=== PATIENT | female | born 1940 | race Caucasian/White ===

== ENCOUNTER 2020-06-30 14:06 | Outpatient (REF) | payer MEDICARE, OTHER, SELFPAY | END 2020-06-30 14:07 | disposition home or self-care (01) | LOC: HO.LNP 14:06 | PROVIDERS: Visit Provider Nurse Practitioner Family | DX: B37.0 Candidal stomatitis (principal) | CPT/HCPCS: 87071; 87205 ==

== ENCOUNTER 2020-07-20 10:52 | Outpatient (REF) | payer MEDICARE, OTHER, SELFPAY | END 2020-07-20 10:53 | disposition home or self-care (01) | LOC: HO.LNP 10:52 | PROVIDERS: Visit Provider Otolaryngology | DX: K14.8 Other diseases of tongue (principal) | CPT/HCPCS: 88305; 88312 ==

== ENCOUNTER 2020-12-18 | Outpatient (REF) | payer MEDICARE, OTHER, SELFPAY | END 2020-12-18 00:01 | disposition home or self-care (01) | LOC: HO.LNP | PROVIDERS: Visit Provider Hospitalist | DX: R30.0 Dysuria (principal) | CPT/HCPCS: 87086 ==

== ENCOUNTER 2021-01-31 09:52 | Outpatient (REF) | payer MEDICARE, OTHER, SELFPAY ==
[2021-01-31 11:42] LABS: Hematocrit 41.2 % (37-47); Hemoglobin 13.7 g/dl (12.0-16.0); Mean Corpuscular HGB Conc 33.3 g/dl (31.0-35.0); Mean Corpuscular Hemoglobin 30.2 pg (27.0-33.0); Mean Corpuscular Volume 90.9 fL (80-98); Mean Platelet Volume 10.8 fL (9.4-12.3); Platelet Count 237 X10*3/uL (160-400); Red Blood Count 4.53 X10*6/uL (4.20-5.50); Red Cell Distribution Width 12.3 % (11.0-16.0); White Blood Count 5.4 X10*3/uL (4.8-10.8)
[2021-01-31 12:14] LABS: Alanine Aminotransferase 14 U/L (0-31); Albumin Level 4.2 g/dL (3.5-5.0); Alkaline Phosphatase 62 U/L (39-117); Anion Gap 12 (12-20); Aspartate Amino Transferase 17 U/L (5-31); Bilirubin Total 0.9 mg/dL (0.0-1.0); Blood Urea Nitrogen 11 mg/dL (9-16); Carbon Dioxide 29 mmol/L (22-29); Chloride 101 mmol/L (96-108); Cholesterol 152 mg/dL; Estimated Glomerular Filt Rate > 60; Glucose Fasting 115 mg/dL (60-99); HDL Cholesterol 55 mg/dL; LDL Cholesterol Calculated 75 mg/dl; Potassium 4.2 mmol/L (3.3-5.1); Sodium 138 mmol/L (135-145); Triglycerides 111 mg/dL
[2021-01-31 12:18] LABS: TSH reflex Free T4 1.22 uIU/mL (0.32-4.0); Vitamin D 25-OH Total 18.6 ng/mL (>30)
== END 2021-01-31 09:53 | disposition home or self-care (01) ==
LOC: HO.HMGCLDS 09:52
PROVIDERS: PCP Internal Medicine; Visit Provider Internal Medicine
DX: I10 Essential (primary) hypertension (principal)
CPT/HCPCS: 36415; 80053; 80061; 82306; 84443; 85027

== ENCOUNTER 2021-02-15 12:35 | Outpatient (REF) | payer MEDICARE, OTHER, SELFPAY ==
--- NOTE | ~2021-02-15 | MM_ITS ---
EXAMINATION: MM SCREENING DIGITAL BREAST TOMOSYNTHESIS, LEFT CLINICAL INFORMATION: Remote right mastectomy 1982. Due for yearly. COMPARISON: Mammography: 08/20/2019, 07/15/2018, 06/20/2017 TECHNIQUE: Digital breast tomosynthesis is performed in both the craniocaudal and mediolateral oblique views along with computer-aided detection (CAD). Synthesized 2D images are generated from the tomosynthesis. FINDINGS: There are scattered areas of fibroglandular density (ACR BI-RADS breast composition Category b). There are no significant masses, abnormal calcifications, or other abnormalities. Parenchymal pattern is similar to prior studies. No developing density. The axilla and skin contours are unremarkable. MM/MM tomosynthesis screening BI IMPRESSION: No mammographic evidence of malignancy. ASSESSMENT: BI-RADS 1: Negative RECOMMENDATION: Routine annual mammography screening. This patient's information was entered into a reminder system with a target due date for their next mammogram.
== END 2021-02-15 12:36 | disposition home or self-care (01) ==
LOC: HO.MAMMO 12:35
PROVIDERS: Visit Provider Internal Medicine
DX: Z12.31 Encounter for screening mammogram for malignant neoplasm of breast (principal)
CPT/HCPCS: 77063; 77067

== ENCOUNTER → 2021-02-23 13:45 | Outpatient (REF) | payer MEDICARE, OTHER, SELFPAY ==
--- NOTE | 2021-02-23 13:51 | ECG_ITS ---
Hook-up date: 2021-02-23 13:58:00 Duration: 24:25:00 Test Indications: PALPS, CARD. ARRHYTHMIAS, TACHY Medications: 87088 QRS complexes 135 Ventricular ectopics which represent <1 % of total QRS comp. 97 Supraventricular ectopics which represent <1 % of total QRS comp. * Paced QRS complexs which represent % of total QRS comp. VENTRICULAR ECTOPY 133 Isolated 6 Bigeminal Cycles 1 Couplets 0 Runs 0 Beats in Runs * Beats LONGEST at * BPM at :: -- * Beats FASTEST at * BPM at :: -- SUPRAVENTRICULAR ECTOPY 76 Isolated 1 Couplets 1 Runs 19 Beats in Runs 19 Beats LONGEST at 102 BPM at 23:59:55 2021-02-23 19 Beats FASTEST at 102 BPM at 23:59:55 2021-02-23 HEART RATES 45 MIN at 02:28:05 2021-02-24 55 AVG 90 MAX at 14:00:02 2021-02-23 LONGEST RR 1.5440 secs at 04:22:48 2021-02-24 S-T LEVELS Channel 1 - 128 mm at 13:58:00 2021-02-23 - 128 mm at 13:58:00 2021-02-23 Channel 2 - 128 mm at 13:58:00 2021-02-23 - 128 mm at 13:58:00 2021-02-23 Channel 3 - 128 mm at 03:31:71 -- - 128 mm at 03:31:71 Underlying rhythm is sinus; Average 55/min; range 45-90/min; Rare PACs with a short 19 beat run; Rare PVCs; Fluttering noted in patient dairy associated with sinus rhythm. Referred By: Krista Allen Overread By: APOLINAR SANTOS
== END ==
LOC: HO.CARD 13:45
PROVIDERS: Visit Provider Internal Medicine
DX: R00.2 Palpitations (principal); R00.0 Tachycardia, unspecified; I49.9 Cardiac arrhythmia, unspecified
CPT/HCPCS: 93225; 93226

== ENCOUNTER 2021-07-05 10:18 | Outpatient (REF) | payer MEDICARE, OTHER, SELFPAY ==
[2021-07-05 12:07] LABS: Estimated Average Glucose 128 mg/dL; Hemoglobin A1c % 6.1 %
[2021-07-05 12:25] LABS: Vitamin D 25-OH Total 31.3 ng/mL (>30)
[2021-07-05 12:33] LABS: Alanine Aminotransferase 14 U/L (0-31); Albumin Level 4.3 g/dL (3.5-5.0); Alkaline Phosphatase 61 U/L (39-117); Anion Gap 14 (12-20); Aspartate Amino Transferase 17 U/L (5-31); Bilirubin Total 1.2 mg/dL (0.0-1.0); Blood Urea Nitrogen 9 mg/dL (9-16); Calcium 9.3 mg/dL (8.4-10.2); Carbon Dioxide 25 mmol/L (22-29); Chloride 104 mmol/L (96-108); Cholesterol 141 mg/dL; Estimated Glomerular Filt Rate > 60; Glucose Fasting 105 mg/dL (60-99); HDL Cholesterol 57 mg/dL; LDL Cholesterol Calculated 67 mg/dl; Potassium 4.1 mmol/L (3.3-5.1); Sodium 139 mmol/L (135-145); Total Protein 7.3 g/dL (6.5-8.0); Triglycerides 87 mg/dL
== END 2021-07-05 10:19 | disposition home or self-care (01) ==
LOC: HO.HMGCLDS 10:18
PROVIDERS: PCP Internal Medicine; Visit Provider Internal Medicine
DX: E78.5 Hyperlipidemia, unspecified (principal); I10 Essential (primary) hypertension; R00.0 Tachycardia, unspecified
CPT/HCPCS: 36415; 80053; 80061; 82306; 83036

== ENCOUNTER 2022-01-04 09:23 | Outpatient (REF) | payer MEDICARE, OTHER, SELFPAY ==
[2022-01-04 11:50] LABS: Alanine Aminotransferase 15 U/L (0-31); Albumin Level 4.1 g/dL (3.5-5.0); Alkaline Phosphatase 59 U/L (39-117); Anion Gap 9 (12-20); Aspartate Amino Transferase 17 U/L (5-31); Blood Urea Nitrogen 11 mg/dL (9-16); Calcium 9.5 mg/dL (8.4-10.2); Carbon Dioxide 30 mmol/L (22-29); Chloride 103 mmol/L (96-108); Estimated Glomerular Filt Rate > 60; Glucose Fasting 104 mg/dL (60-99); Potassium 4.3 mmol/L (3.3-5.1); Sodium 138 mmol/L (135-145); Total Protein 7.2 g/dL (6.5-8.0)
[2022-01-04 11:53] LABS: Estimated Average Glucose 128 mg/dL; Hemoglobin A1c % 6.1 %
[2022-01-04 12:11] LABS: Vitamin D 25-OH Total 30.6 ng/mL (>30)
== END 2022-01-04 09:24 | disposition home or self-care (01) ==
LOC: HO.HMGCLDS 09:23
PROVIDERS: PCP Internal Medicine; Visit Provider Internal Medicine
DX: E55.9 Vitamin D deficiency, unspecified (principal); I10 Essential (primary) hypertension; R73.9 Hyperglycemia, unspecified
CPT/HCPCS: 36415; 80053; 82306; 83036

== ENCOUNTER 2022-02-20 14:40 | Outpatient (REF) | payer MEDICARE, OTHER, SELFPAY ==
--- NOTE | ~2022-02-20 | MM_ITS ---
EXAMINATION: MM SCREENING DIGITAL BREAST TOMOSYNTHESIS, LEFT CLINICAL INFORMATION: Status post right mastectomy COMPARISON: Mammography: February 15, 2021 and studies dating back to January 16, 2012 TECHNIQUE: Digital breast tomosynthesis is performed in both the craniocaudal and mediolateral oblique views along with computer-aided detection (CAD). Synthesized 2D images are generated from the tomosynthesis. FINDINGS: The breasts are heterogeneously dense, which may obscure small masses (ACR BI-RADS breast composition Category c). There are no significant masses, abnormal calcifications, or other abnormalities. MM/MM tomosynthesis screening LT IMPRESSION: There are no significant changes from prior study. ASSESSMENT: BI-RADS 1: Negative RECOMMENDATION: Routine annual mammography screening. This patient's information was entered into a reminder system with a target due date for their next mammogram.
== END 2022-02-20 14:41 | disposition home or self-care (01) ==
LOC: HO.MAMMO 14:40
PROVIDERS: PCP Internal Medicine; Visit Provider Internal Medicine
DX: Z12.31 Encounter for screening mammogram for malignant neoplasm of breast (principal)
CPT/HCPCS: 77063; 77067

== ENCOUNTER 2022-07-10 10:31 | Outpatient (REF) | payer MEDICARE, OTHER, SELFPAY ==
[2022-07-10 11:16] LABS: MANUAL DIFF FLAG NO
[2022-07-10 11:38] LABS: Basophils Absolute Auto 0.1 X10*3/uL (0.0-0.2); Basophils Percent Auto 0.9 % (0-2); Eosinophils Absolute Auto 0.3 X10*3/uL (0.0-0.4); Eosinophils Percent Auto 4.1 % (0-4); Hematocrit 42.3 % (37.0-47.0); Imm Gran Abs Auto 0.02 X10*3/uL (0.00-0.03); Imm Gran Pct Auto 0.3 % (0.0-0.4); Lymphocytes Absolute Auto 2.5 X10*3/uL (1.2-4.9); Lymphocytes Percent Auto 38.4 % (20-40); Mean Corpuscular HGB Conc 33.1 g/dl (31.0-35.0); Mean Corpuscular Volume 90.8 fL (80.0-98.0); Mean Platelet Volume 10.8 fL (9.4-12.3); Monocytes Absolute Auto 0.6 X10*3/uL (0.1-1.2); Monocytes Percent Auto 8.6 % (2-11); Neutrophils Absolute Auto 3.1 x10*3/uL (2.0-8.3); Neutrophils Percent Auto 47.7 % (45-73); Platelet Count 237 X10*3/uL (160-400); Red Blood Count 4.66 X10*6/uL (4.20-5.50); Red Cell Distribution Width 12.3 % (11.0-16.0); White Blood Count 6.4 X10*3/uL (4.8-10.8)
[2022-07-10 12:48] LABS: Alanine Aminotransferase 8 U/L (0-31); Albumin Level 4.4 g/dL (3.5-5.0); Alkaline Phosphatase 58 U/L (39-117); Anion Gap 15 (12-20); Aspartate Amino Transferase 14 U/L (5-31); Blood Urea Nitrogen 11 mg/dL (9-16); Calcium 9.5 mg/dL (8.4-10.2); Carbon Dioxide 27 mmol/L (22-29); Chloride 100 mmol/L (96-108); Cholesterol 150 mg/dL; Estimated Glomerular Filt Rate > 60; Glucose Fasting 103 mg/dL (60-99); HDL Cholesterol 56 mg/dL; LDL Cholesterol Calculated 71 mg/dl; Potassium 4.4 mmol/L (3.3-5.1); Sodium 138 mmol/L (135-145); Total Protein 7.6 g/dL (6.5-8.0); Triglycerides 116 mg/dL
== END 2022-07-10 10:32 | disposition home or self-care (01) ==
LOC: HO.HMGCLDS 10:31
PROVIDERS: PCP Internal Medicine; Visit Provider Internal Medicine
DX: E78.5 Hyperlipidemia, unspecified (principal); I10 Essential (primary) hypertension
CPT/HCPCS: 36415; 80053; 80061; 85025

== ENCOUNTER 2022-07-11 10:56 | Outpatient (REF) | payer MEDICARE, OTHER, SELFPAY ==
[2022-07-11 14:08] LABS: Appearance Urine Clear; Color Urine Yellow; Glucose Urine UA Negative (Negative); Leukocyte Esterase Urine Small (1+) (Negative); Nitrite Urine Negative (Negative); Specific Gravity - Urine 1.015 (1.005-1.025); UMIC TRIGGER UACC YES; Urine Blood Negative (Negative); Urine Ketones Negative (Negative); Urine Protein Negative (Neg-Trace)
[2022-07-11 14:21] LABS: Bacteria Urine None Seen (None Seen); Hyaline Casts Urine 0-2 /LPF (0-2); RBC Urine 0-2 /HPF (0-2); UACC Culture Trigger YES; WBC Urine 0-5 /HPF (0-5)
== END 2022-07-11 10:57 | disposition home or self-care (01) ==
LOC: HO.HMGCLDS 10:56
PROVIDERS: PCP Internal Medicine; Visit Provider Internal Medicine
DX: Z13.89 Encounter for screening for other disorder (principal)
CPT/HCPCS: 81001; 87086

== ENCOUNTER 2022-07-11 15:47 | Outpatient (REF) | payer MEDICARE, OTHER, SELFPAY ==
--- NOTE | ~2022-07-11 | US_ITS ---
EXAMINATION: US VENOUS ULTRASOUND WITH DOPPLER LOWER EXTREMITY, LEFT CLINICAL INFORMATION: Pain. COMPARISON: None TECHNIQUE: Ultrasound of the deep veins is performed from the hip to the calf with compression sonography and color and pulse Doppler assessment. Spectral analysis with color-flow imaging is performed. FINDINGS: Status post greater saphenous vein stripping. There is normal venous compression and respiratory variation and augmented flow. The visualized common femoral vein, superficial femoral vein, profunda femoral vein, popliteal vein, and the trifurcation region shows no evidence of deep venous thrombosis. Popliteal cyst measuring 3.7 x 1.2 x 0.9 cm. If the patient's symptoms persist, followup ultrasound in 5 days 7 days might be of value to exclude proximal propagation from a non-visualized calf vein. US/US venous duplex LE IMPRESSION: No DVT demonstrated in the left lower extremity.
== END 2022-07-11 15:48 | disposition home or self-care (01) ==
LOC: HO.US 15:47
PROVIDERS: PCP Internal Medicine; Visit Provider Internal Medicine
DX: M79.605 Pain in left leg (principal); R32 Unspecified urinary incontinence
CPT/HCPCS: 81001; 87086; 93971

== ENCOUNTER 2023-02-26 08:48 | Outpatient (REF) | payer MEDICARE, OTHER, SELFPAY ==
--- NOTE | ~2023-02-26 | MM_ITS ---
EXAMINATION: MM SCREENING DIGITAL BREAST TOMOSYNTHESIS, LEFT CLINICAL INFORMATION: Due for yearly. Contralateral mastectomy, 1991. Left excisional biopsy, 1993. COMPARISON: Mammography: 02/20/2022, 02/15/2021, 08/20/2019 TECHNIQUE: Digital breast tomosynthesis is performed in both the craniocaudal and mediolateral oblique views along with computer-aided detection (CAD). Synthesized 2D images are generated from the tomosynthesis. FINDINGS: The breasts are heterogeneously dense, which may obscure small masses (ACR BI-RADS breast composition Category c). Breast tissue composition borders on average fibroglandular. Parenchymal pattern is similar to prior studies and there is no developing density or architectural abnormality. There are no significant masses, abnormal calcifications, or other abnormalities. The axilla and skin contours are unremarkable. MM/MM tomosynthesis screening LT IMPRESSION: No mammographic evidence of malignancy. ASSESSMENT: BI-RADS 1: Negative RECOMMENDATION: Routine annual mammography screening. This patient's information was entered into a reminder system with a target due date for their next mammogram.
== END 2023-02-26 08:49 | disposition home or self-care (01) ==
LOC: HO.MAMMO 08:48
PROVIDERS: Visit Provider Internal Medicine
DX: Z12.31 Encounter for screening mammogram for malignant neoplasm of breast (principal)
CPT/HCPCS: 77063; 77067

== ENCOUNTER 2023-07-13 07:59 | Outpatient (REF) | payer MEDICARE, OTHER, SELFPAY ==
[2023-07-13 11:36] LABS: MANUAL DIFF FLAG NO
[2023-07-13 11:51] LABS: Estimated Average Glucose 126 mg/dL
[2023-07-13 11:58] LABS: Basophils Absolute Auto 0.1 X10*3/uL (0.0-0.2); Basophils Percent Auto 1.1 % (0-2); Eosinophils Absolute Auto 0.4 X10*3/uL (0.0-0.4); Eosinophils Percent Auto 5.8 % (0-4); Hematocrit 42.1 % (37.0-47.0); Hemoglobin 13.6 g/dl (12.0-16.0); Lymphocytes Percent Auto 46.6 % (20-40); Mean Corpuscular HGB Conc 32.3 g/dl (31.0-35.0); Mean Corpuscular Hemoglobin 29.8 pg (27.0-33.0); Mean Corpuscular Volume 92.1 fL (80.0-98.0); Mean Platelet Volume 10.7 fL (9.4-12.3); Monocytes Absolute Auto 0.7 X10*3/uL (0.1-1.2); Monocytes Percent Auto 10.4 % (2-11); Neutrophils Absolute Auto 2.4 x10*3/uL (2.0-8.3); Neutrophils Percent Auto 36.1 % (45-73); Platelet Count 265 X10*3/uL (160-400); Red Blood Count 4.57 X10*6/uL (4.20-5.50); Red Cell Distribution Width 12.7 % (11.0-16.0); White Blood Count 6.5 X10*3/uL (4.8-10.8)
[2023-07-13 12:24] LABS: Alanine Aminotransferase 12 U/L (0-31); Albumin Level 4.1 g/dL (3.5-5.0); Alkaline Phosphatase 55 U/L (39-117); Anion Gap 11 (12-20); Aspartate Amino Transferase 19 U/L (5-31); Bilirubin Total 0.9 mg/dL (0.0-1.0); Blood Urea Nitrogen 13 mg/dL (9-16); Calcium 9.5 mg/dL (8.4-10.2); Carbon Dioxide 26 mmol/L (22-29); Chloride 103 mmol/L (96-108); Cholesterol 144 mg/dL (<200); Estimated Glomerular Filt Rate > 60; Glucose Fasting 108 mg/dL (60-99); HDL Cholesterol 55 mg/dL (>40); LDL Cholesterol Calculated 72 mg/dL (<100); Sodium 136 mmol/L (135-145); TSH reflex Free T4 1.81 uIU/mL (0.32-4.0); Total Protein 7.8 g/dL (6.5-8.0); Triglycerides 88 mg/dL (<150)
[2023-07-13 12:35] LABS: Creatinine Urine 165.95 mg/dL; Microalbum/Creatinine Ratio Ur 15.6 ug/mg cr (<30)
== END 2023-07-13 08:00 | disposition home or self-care (01) ==
LOC: HO.HMGCLDS 07:59
PROVIDERS: PCP Internal Medicine; Visit Provider Internal Medicine
DX: E78.5 Hyperlipidemia, unspecified (principal); R73.9 Hyperglycemia, unspecified; I10 Essential (primary) hypertension
CPT/HCPCS: 36415; 80053; 80061; 82043; 82570; 83036; 84443; 85025

== ENCOUNTER 2023-07-17 11:22 | Outpatient (AMB) | payer MEDICARE, OTHER, SELFPAY ==
[2023-07-17 11:26] VITALS: BP 140/78; PULSE 59; O2SAT 96; BMI 28.1
--- NOTE | 2023-07-17 11:26 | AM.OFFVISMDC ---
Intake Vital Signs 07/17/23 11:26 07/17/23 12:27 Height 5 ft 6 in Weight 174 lb BMI 28.1 BP 140/78 H 130/82 Blood Pressure Location Lt brachial Rt brachial Position Sitting Pulse 59 Pulse Source Pulse Oximeter Pulse Oximetry (%) 96 Oxygen Delivery Method Room Air Intake Visit Reasons: SWV [id number] Allergies hydrochlorothiazide Adverse Reaction (Intermediate, Verified 07/17/23 11:35) Palpitations amlodipine Adverse Reaction (Verified 07/17/23 11:35) DIZZINESS sotalol Adverse Reaction (Verified 07/17/23 11:35) Palpitations HPI SWV G0439 HPI Details Pt presents for annual visit.Initiated the conversation about Advanced Directives. Advanced Directives help? patients prepare for current and future decisions about their medical treatment? and place of care. Discussed with patient that it is a process where a patients? current condition and prognosis are reviewed, their wishes for information? regarding their illness are elicited, and likely medical dilemmas are presented? and options discussed. The form can be amended as needed, reviewed yearly and? make changes as needed IPPE/AWV ? year old presents? for her ? Annual? Wellness Visit, initial visit.? Medical / Social History Reviewed? Past Medical History ?Yes? . ? [place]? of Care / Care Team list updated ?Yes . ? Surgical/Hospitalization? History ?Yes . ? Current Medications? (including OTC and supplements) ?Yes . ? Family History ?Yes? . ? Tobacco? Control form ?Yes . ? AUDIT-C (Alcohol use) form? ?Yes . ? Illicit drug use in Social? History ?Yes . ? Current diagnosis of? depression? ?No ? Appropriate PHQ2/PHQ9? completed ?Yes . ? Data entered by ?Medical? [employer] and reviewed by provider ? Fall Risk ? Fall? History? Have you had any falls with? injury in the past year? ?No . ? Have you had two or more? falls in the past year? ?No . ? Fall Risk Assessment: ?No? falls in the past year . ? HRA filled out by? the patient, reviewed by Provider and scanned. ? IPPE/AWV ? Balance? Romberg? ?Yes . ? Tandem? walk ?Yes . ? Walk and? Turn ?Yes . ? Rise from? sit to stand ?Yes . ?Vision? Corrective? lens ?Yes ? Vision? screen ? Up-to-date, has an appointment [] for vision? screening and glaucoma screening ?Hearing? Whisper? test ?pass .? Initiated the conversation about Advanced Directives. Advanced Directives help? patients prepare for current and future decisions about their medical treatment? and place of care. Discussed with patient that it is a process where a patients? current condition and prognosis are reviewed, their wishes for information? regarding their illness are elicited, and likely medical dilemmas are presented? and options discussed. The form can be amended as needed, reviewed yearly and? make changes as needed Written? Plan?Completed. See Patient? Documents. [facility] Medical History (Updated 07/17/23 @ 12:24 by Krista Allen MD) Dysuria Impacted cerumen of both ears Bradycardia Dysplastic nevus Hyperglycemia Vitamin D deficiency Annual physical exam Palpitations Arrhythmia Leukoplakia of tongue Tachycardia Hyperlipidemia Peripheral neuropathy Hypertension Surgical History H/O mastectomy H/O colonoscopy Family History Father No problems noted. Mother No problems noted. Son Diabetes Social History Household Members Other:: lives alone, independent, daughter lives close Housing: House Alcohol intake: never Patient Tobacco Use Status: Never used Tobacco e-Cigarette/Vaping Use: Never Used Second Hand Smoke Exposure: No Current occupational status: retired Cognitive needs: No Hearing needs: No Vision needs: Yes Questionnaire Medicare Wellness Checkup What is your age?: 79 or older What gender do you identify with?: female During the past 4 weeks, how much have you been bothered by emotional problems such as feeling anxious, depressed, irritable, sad or downhearted, and blue?: slightly During the past 4 weeks, has your physical & emotional health limited your social activities with family, friends, neighbors, or groups?: not at all During the past 4 weeks, how much bodily pain have you generally had?: no pain During the past 4 weeks, was someone available to help you if you needed & wanted help?: yes, as much as I wanted During the past 4 weeks, what was the hardest physical activity you could do for at least 2 minutes?: moderate Can you get to places out of walking distance without help? (For eg., can you travel alone on buses, taxis or drive your car?): Yes Can you go shopping for groceries or clothes without someone's help?: Yes Can you prepare your own meals?: Yes Can you do your housework without help?: Yes Because of any health problems, do you need the help of another person with your personal care needs such as eating, bathing, dressing or getting around the house?: No Can you handle your own money without help?: Yes During the past 4 weeks, how would you rate your health in general?: very good During the past 4 weeks how have things been going for you?: pretty well Are you having difficulties driving your car?: no Do you always fasten your seat belt when you are in a car?: yes, usually During past 4 weeks, have you been bothered by the following: never: Sexual problems?, Trouble eating well?, Teeth or denture problems?, Problems using the telephone? and Tiredness or fatigue? and sometimes: Falling or dizzy when standing up Have you fallen 2 or more times in the past year?: No Are you afraid of falling?: No Are you a smoker?: no During the past 4 weeks, how many drinks of wine, beer, or other alcoholic beverages did you have?: no alcohol at all Do you exercise for about 20 minutes 3 or more times a week?: yes, most of the time Have you been given information to help with the following?: no: Hazards in your house that might hurt you? and no: Keeping track of your medications? How often do you have trouble taking medicines the way you have been told to take them?: I always take medicine as prescribed How confident are you that you can control & manage most of your health problems?: very confident What is your race?: White Mini Mental State Exam (MMSE) Orientation What is the (year) (season) (date) (day) (month)?: year, season, date, day and month Where are we (state) (county) (town or city) (hospital) (floor)?: state, county, town or city, hospital/clinic and floor Registration Name of 3 unrelated objects clearly and slowly, then ask patient to repeat all 3 of them. (1st repeat determines score. Make sure they can repeat all three): object 1, object 2 and object 3 Attention & Calculation (CHOOSE ONE) Ask pt to begin with 100 & count backward by 7. Stop after 5 repeats. If pt cannot ask them to spell the word WORLD backward.: 93 Recall Ask patient to repeat the 3 items from question #3.: object 1, object 2 and object 3 Language Show patient a wristwatch & ask what it is. Repeat for pencil.: watch and pencil Ask the patient to repeat the phrase 'No ifs, ands, or buts' after you.: correct Ask the patient to 'take a piece of paper with their right hand' 'fold paper in half' 'place paper on floor': take paper in right hand, fold paper in half and place paper on floor Print the sentence 'CLOSE YOUR EYES' on a piece. If patient actually closes eyes then score.: followed written direction Give patient a blank piece of paper & ask to write a sentence. Score if it contains a noun & verb.: sentence contains subject and verb Score Score: 25 Activity of Daily Living Bathing - sponge bath, tub bath or shower: receives no assistance (gets in/out by self, if usual bathing means Dressing - getting clothes from closets & drawers, including inner/outer garments & fasteners.: gets clothes & gets completely dressed without help Toileting - going to the 'toilet room' for urine/bowel elimination & cleaning self/arranging clothes: goes to toilet room, cleans self, arranges clothes without help Transfer: moves in & out of bed and chair without help (may use support object) Continence: controls urination/bowel movements completely by self Feeding: feeds self without help Total Score: 0 Information obtained from: patient Using telephone: independent Traveling: independent Shopping: independent Preparing meals: independent Housework: independent Taking medicine: independent Managing money: independent PHQ-9 Over the last 2 weeks, how often have you been bothered by any of the following problems? 1. Little interest or pleasure in doing things: not at all 2. Feeling down, depressed, or hopeless: not at all 3. Trouble falling or staying asleep, or sleeping too much: several days 4. Feeling tired or having little energy: not at all 5. Poor appetite or overeating: not at all 6. Feeling bad about yourself - or that you are a failure or have let yourself or your family down: not at all 8. Moving or speaking so slowly that other people could have noticed. Or the opposite - being so fidgety or restless that you have been moving around a lot more than usual: not at all 9. Thoughts that you would be better off or of hurting yourself in some way: not at all Depression Screening Interpretation: Negative Depression Screening Done: Yes Source: Developed by Drs. Jae Sandoval, Yolanda BDarnell Gonzalez and colleagues, with an educational cuh from [employer] Review of Systems Const All systems reviewed & are unremarkable except as noted in HPI and below Reports no additional complaints Eyes Reports no additional complaints ENT Reports no additional complaints Card Reports no additional complaints Resp Reports no additional complaints GI Reports no additional complaints Reports no additional complaints Physical Exam Vital Signs: Last Vital Signs Pulse 59 07/17/23 11:26 BP 130/82 07/17/23 12:27 Pulse Ox 96 07/17/23 11:26 Oxygen Delivery Method Room Air 07/17/23 11:26 BMI result Body Mass Index 28.1 Const General: no acute distress HEENT Head: Yes normal to inspection Eyes General: appearance normal, both eyes and all related structures Neck Neck: Yes no lymphadenopathy and Yes supple Resp Effort & Inspection: normal respiratory effort Auscultation: clear to auscultation bilaterally Cardio Rhythm: regular rhythm Heart sounds: S1 normal heart sound present and S2 normal heart sound present GI Inspection: Yes normal to inspection Palpation (GI): Soft to palpation Percussion: Yes normal to percussion Extrem General: Yes no clubbing, cyanosis or edema Assessment & Plan Assessment & Plan (1) Dysuria: Code(s): R30.0 - Dysuria Plan: Check UA and culture (2) Hyperglycemia: Code(s): R73.9 - Hyperglycemia, unspecified Plan: A1c is 6.0, ADA diet increase exercise weight loss discussed with the patient (3) Annual physical exam: Code(s): Z00.00 - Encounter for general adult medical examination without abnormal findings Plan: Well-balanced diet regular exercise discussed with patient (4) Hypertension: Code(s): I10 - Essential (primary) hypertension Plan: Blood pressure is borderline elevated, low sodium diet increase physical activity discussed with the patient . follow-up in 2 months for blood pressure check (5) Hyperlipidemia: Code(s): E78.5 - Hyperlipidemia, unspecified Plan: Continue simvastatin Orders: Orders UA w Microscopic Today R30.0 - Dysuria Coding Level of Care Code Medicare Subsequent (G0439) Diagnoses Dysuria R30.0 Hyperglycemia R73.9 Annual physical exam Z00.00 Hypertension I10 Hyperlipidemia E78.5 CPT Codes Advance Care Planning - Time spent: 1-15 minutes, not on file ([id number]) Advance Care Planning Advance Care Planning discussion: Exists, not on file Forms completed: Health Care Proxy Time spent: 1-15 minutes, not on file
[2023-07-17 12:27] VITALS: BP 130/82
== END 2023-07-17 13:15 | disposition home or self-care (01) ==
PROVIDERS: Visit Provider Internal Medicine
DX: R30.0 Dysuria (principal); R73.9 Hyperglycemia, unspecified; Z00.00 Encounter for general adult medical examination without abnormal findings; I10 Essential (primary) hypertension; E78.5 Hyperlipidemia, unspecified
CPT/HCPCS: 1124F; G0439

== ENCOUNTER 2023-09-18 11:50 | Outpatient (REF) | payer MEDICARE, OTHER, SELFPAY ==
[2023-09-18 13:42] LABS: Appearance Urine Clear; Color Urine Yellow; Glucose Urine UA Negative (Negative); Leukocyte Esterase Urine Trace (Negative); Nitrite Urine Negative (Negative); PH 6.5 (5.0-9.0); Specific Gravity - Urine <= 1.005 (1.005-1.025); UMIC TRIGGER UA YES; Urine Blood Negative (Negative); Urine Ketones Negative (Negative); Urine Protein Negative (Neg-Trace)
[2023-09-18 13:47] LABS: Bacteria Urine None Seen (None Seen); Hyaline Casts Urine 0-2 /LPF (0-2); RBC Urine 0-2 /HPF (0-2); Squamous Epithelial Cell Urine 0-2 /HPF (0-2); WBC Urine 0-5 /HPF (0-5)
== END 2023-09-18 11:51 | disposition home or self-care (01) ==
LOC: HO.HMGCLDS 11:50
PROVIDERS: PCP Internal Medicine; Visit Provider Internal Medicine
DX: R30.0 Dysuria (principal)
CPT/HCPCS: 81001

== ENCOUNTER 2023-09-20 12:31 | Outpatient (AMB) | payer MEDICARE, OTHER, SELFPAY ==
[2023-09-20 12:35] VITALS: BP 136/80; PULSE 59; O2SAT 95; BMI 28.1
--- NOTE | 2023-09-20 12:35 | A.OFFPC_ITS ---
Vital Signs 09/20/23 12:35 Height 5 ft 6 in Weight 174 lb BMI 28.1 BP 136/80 Blood Pressure Location Lt brachial Position Sitting Pulse 59 Pulse Source Pulse Oximeter Pulse Oximetry (%) 95 Oxygen Delivery Method Room Air Intake Visit Reasons: 2 month fu Intake Note: Pt is here today for 2 months follow up visit. Allergies hydrochlorothiazide Adverse Reaction (Intermediate, Verified 12/17/23 09:31) Palpitations amlodipine Adverse Reaction (Verified 12/17/23 09:31) DIZZINESS sotalol Adverse Reaction (Verified 12/17/23 09:31) Palpitations Medication List - Last Reconciled 09/20/23 by Krista Allen MD atenolol 25 mg PO DAILY lisinopril 20 mg PO BID lorazepam 0.5 mg PO BEDTIME PRN simvastatin 20 mg PO DAILY spironolactone 12.5 mg (1/2 x 25 mg) PO DAILY Tobacco use date assessed: 09/20/23 Fall risk assessment: No Falls in past year Last assessed Fall Risk: 09/20/23 Dental Screening Dental Screen Date: 09/20/23 Did you have a dental visit in the last 12 months?: Yes Did you have a dental problem in the last 6 months where you did not have access to dental care?: No Was dental information given to patient?: Patient has dentist [facility] Medical History (Updated 12/17/23 @ 10:16 by Chel Gilmore APRN, [facility]) Dysuria Impacted cerumen of both ears Bradycardia Dysplastic nevus Hyperglycemia Vitamin D deficiency Annual physical exam Palpitations Arrhythmia Leukoplakia of tongue Tachycardia Hyperlipidemia Peripheral neuropathy Hypertension Surgical History H/O mastectomy H/O colonoscopy Family History Father No problems noted. Mother No problems noted. Son Diabetes Social History Household Members Other:: lives alone, independent, daughter lives close Housing: House Alcohol intake: never Patient Tobacco Use Status: Never used Tobacco e-Cigarette/Vaping Use: Never Used Second Hand Smoke Exposure: No Current occupational status: retired Cognitive needs: No Hearing needs: No Vision needs: Yes Questionnaire PHQ-9 Over the last 2 weeks, how often have you been bothered by any of the following problems? 1. Little interest or pleasure in doing things: not at all 2. Feeling down, depressed, or hopeless: not at all 3. Trouble falling or staying asleep, or sleeping too much: not at all 4. Feeling tired or having little energy: not at all 5. Poor appetite or overeating: not at all 6. Feeling bad about yourself - or that you are a failure or have let yourself or your family down: not at all 7. Trouble concentrating on things, such as reading the newspaper or watching television: not at all 8. Moving or speaking so slowly that other people could have noticed. Or the opposite - being so fidgety or restless that you have been moving around a lot more than usual: not at all 9. Thoughts that you would be better off or of hurting yourself in some way: not at all Total score: 0 Depression Screening Interpretation: Negative Depression Screening Done: Yes Source: Developed by Drs. Jae Sandoval, Yolanda Ennis, Darnell Matias and colleagues, with an educational chu from [employer]. Thrive Questionnaire Date Thrive assessed: 09/20/23 I am a: Patient What is your living situation today?: I have a steady place to live Within the past 12 months, did the food you bought not last and you didn't have the money to get more?: Never true Within the past 12 months, did you worry whether your food would run out before you got money to buy more?: Never true Do you have trouble paying for medicines?: No Do you have trouble getting transportation to medical appointments?: No Do you have trouble paying your heating and electricity bill?: No Do you have trouble taking care of your child, family member or friend?: No Do you have trouble with day-to-day activities such as bathing, preparing meals, shopping, managing finances, etc.?: No Are you currently unemployed and looking for a job?: No Are you interested in more education?: No Please select the resources that you would like help with: None AUDIT C Alcohol Use Questionnaire (AUDIT-C) 1. How often do you have a drink containing alcohol?: Never 3. How often do you have six or more drinks on one occasion?: Never Total Score: 0 BRADY-7 AMB Questionnaire BRADY-7 Date BRADY - 7 assessed: 09/20/23 Feeling nervous, anxious, or on edge: 0 = Not at all Not being able to stop or control worryin = Not at all Worrying too much about different things: 0 = Not at all Trouble relaxin = Not at all Being so restless that it is hard to sit still: 0 = Not at all Becoming easily annoyed or irritable: 0 = Not at all Feeling afraid as if something awful might happen: 0 = Not at all Total BRADY-7 score (0-4 normal; 5-9 mild; 10-14 moderate; 15-21 severe): 0 Source: Developed by Drs. Jae Sandoval, Yolanda Ennis, Darnell Matias and colleagues, with an educational chu from [employer]. Review of Systems Const All systems reviewed & are unremarkable except as noted in HPI and below Reports no additional complaints Eyes Reports no additional complaints ENT Reports no additional complaints Card Reports no additional complaints Resp Reports no additional complaints GI Reports no additional complaints Reports no additional complaints Physical exam (Primary Care) Vital Signs: Last Vital Signs Pulse 59 09/20/23 12:35 BP 136/80 09/20/23 12:35 Pulse Ox 95 09/20/23 12:35 Oxygen Delivery Method Room Air 09/20/23 12:35 BMI result Body Mass Index 28.1 Tobacco/Smoking Status: Tobacco use Status Tobacco use date assessed 09/20/23 09/20/23 12:47 Patient Tobacco Use Status Never used Tobacco 09/20/23 12:47 e-Cigarette/Vaping Use Never Used 09/20/23 12:35 PHQ-9: PHQ-9 Score PHQ-9: Total score 0 09/20/23 13:27 Depression Screening Interpretation: Negative Thrive Assessment: Date of Thrive Assessment Date Thrive assessed 09/20/23 09/20/23 12:47 Const General: no acute distress HENMT Head: Yes normal to inspection Mouth: Normal oral and palatal mucosa present Eyes General: appearance normal, both eyes and all related structures Neck Neck: Yes supple Resp Effort & Inspection: normal respiratory effort Auscultation: clear to auscultation bilaterally Cardio Rhythm: regular rhythm Heart sounds: S1 normal heart sound present and S2 normal heart sound present GI Inspection: Yes normal to inspection Palpation (GI): Soft to palpation Assessment and Plan Assessment & Plan (1) Hypertension: Code(s): I10 - Essential (primary) hypertension Plan: Continue current medications, add 12.5 mg of spironolactone (2) Hyperlipidemia: Code(s): E78.5 - Hyperlipidemia, unspecified Plan: Continue statin Orders: Orders Basic Metabolic Panel 09/20/23 I10 - Essential (primary) hypertension Medications: New atenolol 25 mg PO DAILY 90 tabs 3RF spironolactone 12.5 mg (1/2 x 25 mg) PO DAILY 30 tabs 0RF Discontinued atenolol Discontinued Reason: Doctor's Order 25 mg (1/2 x 50 mg) PO DAILY 90 tabs 3RF Coding Level of Care Code Est Pt Level 3 (22982) Diagnoses Hypertension I10 Hyperlipidemia E78.5
== END 2023-09-20 16:01 | disposition home or self-care (01) ==
PROVIDERS: PCP Internal Medicine; Visit Provider Internal Medicine
DX: I10 Essential (primary) hypertension (principal); E78.5 Hyperlipidemia, unspecified
CPT/HCPCS: 99213

== ENCOUNTER 2023-12-17 09:14 | Outpatient (AMB) | payer MEDICARE, OTHER, SELFPAY ==
[2023-12-17 09:27] VITALS: BP 120/78; PULSE 61; TEMP 36.5; O2SAT 97; BMI 28.6
--- NOTE | 2023-12-17 09:27 | AM.OFFWIN_ITS ---
Intake Vital Signs 12/17/23 09:27 Height 5 ft 6 in Weight 177 lb BMI 28.6 BP 120/78 Blood Pressure Location Lt brachial Position Sitting Pulse 61 Pulse Source Pulse Oximeter Temp 97.7 F Temp Source Temporal Artery Scan Pulse Oximetry (%) 97 Oxygen Delivery Method Room Air Intake Visit Reasons: EP Tick Bite Intake Note: pt is here today for tick bite started sunday Patient Tobacco Use Status: Never used Tobacco Allergies hydrochlorothiazide Adverse Reaction (Intermediate, Verified 12/17/23 09:31) Palpitations amlodipine Adverse Reaction (Verified 12/17/23 09:31) DIZZINESS sotalol Adverse Reaction (Verified 12/17/23 09:31) Palpitations Do you need a note to return to daycare/school/sports/work: No HPI HPI Comments History of Present Illness Details Patient presents to the walk-in today for sick visit Reports tick bites left calf. She removed the tick 3 days ago, reports that it was imbedded. She is unsure when he was there before she found it. Patient denies fever, chills, dizziness, weakness, palpitations, body aches, loss nausea, vomiting, headaches Small localized induration with erythema noted at site of tick bite Patient also complaining of blockage he left ear, she reports that this is chronic for her. She would like her ear flushed Denies pain, drainage, hearing loss, dizziness, headache [facility] Medical History (Updated 12/17/23 @ 10:16 by Chel Gilmore APRN, LANGUAGE ARTS TEACHER) Dysuria Impacted cerumen of both ears Bradycardia Dysplastic nevus Hyperglycemia Vitamin D deficiency Annual physical exam Palpitations Arrhythmia Leukoplakia of tongue Tachycardia Hyperlipidemia Peripheral neuropathy Hypertension Surgical History H/O mastectomy H/O colonoscopy Family History Father No problems noted. Mother No problems noted. Son Diabetes Social History Household Members Other:: lives alone, independent, daughter lives close Housing: House Alcohol intake: never Patient Tobacco Use Status: Never used Tobacco e-Cigarette/Vaping Use: Never Used Second Hand Smoke Exposure: No Current occupational status: retired Cognitive needs: No Hearing needs: No Vision needs: Yes Review of Systems Const All systems reviewed & are unremarkable except as noted in HPI and below Physical Exam Vital Signs: Last Vital Signs Temp 97.7 F 12/17/23 09:27 Pulse 61 12/17/23 09:27 BP 120/78 12/17/23 09:27 Pulse Ox 97 12/17/23 09:27 Oxygen Delivery Method Room Air 12/17/23 09:27 BMI result Body Mass Index 28.6 General: awake, alert, oriented. Answers questions appropriately. Fully engaged in examination. Skin: warm, dry, intact. Left calf with small area of induration with erythema. HEENT: Normocephalic. Hearing intact. Right TM normal to visual inspection. Cerumen noted left TM, unable to visualize TM Cardiac: External chest normal in appearance. Respiratory: No cough, audible wheezing or stridor. Abdomen: without gross distension. MS: No obvious swelling or deformities. Neurological: Oriented to person, place, time and situation. Thought process i ntact. Psychiatric: Appropriate mood and affect. Good judgment and insight. Office Procedures Cerumen Removal Details: Patient tolerated procedure well. Canal clear after irrigation. Small amount of cerumen evacuated. From which ear canal was the cerumen removed: left Removal: irrigation Notes: patient tolerated procedure well [id number] Irrigation/Lavage Assessment & Plan Assessment & Plan (1) Tick bite of left lower leg: Code(s): S80.862A - Insect bite (nonvenomous), left lower leg, initial encounter; W57.XXXA - Bitten or stung by nonvenomous insect and other nonvenomous arthropods, initial encounter (2) Impacted cerumen of left ear: Code(s): H61.22 - Impacted cerumen, left ear Plan Patient with tick bite, negative for erythema migrans but with localized induration and erythema at the site. Unknown exposure time. Tick removal of current greater than 72 hours ago. Will treat with Doxycycline 100 mg p.o. b.i.d. times 14 days. Follow-up with PCP or return to walk-in for any new or concerning symptoms. All questions and concerns were answered, patient agrees with plan Orders: Orders AMB Cerumen Removal Today H61.22 - Impacted cerumen, left ear Medications: New doxycycline hyclate 100 mg PO BID 14 days 28 caps 0RF Coding Level of Care Code Est Pt Level 3 (95559) Diagnoses Tick bite of left lower leg S80.862A; W57.XXXA Impacted cerumen of left ear H61.22 CPT Codes Office Procedure - CPT: 54098-Jbi Irrigation/Lavage ([id number])
== END 2023-12-17 10:15 | disposition home or self-care (01) ==
PROVIDERS: PCP Internal Medicine; Visit Provider Registered Nurse Emergency
DX: S80.862A Insect bite (nonvenomous), left lower leg, initial encounter (principal); W57.XXXA Bitten or stung by nonvenomous insect and other nonvenomous arthropods, initial encounter; H61.22 Impacted cerumen, left ear
CPT/HCPCS: 69209; 99213

== ENCOUNTER 2024-03-03 08:22 | Outpatient (REF) | payer MEDICARE, OTHER, SELFPAY ==
--- NOTE | ~2024-03-03 | MM_ITS ---
EXAMINATION: MM SCREENING DIGITAL BREAST TOMOSYNTHESIS, BILATERAL CLINICAL INFORMATION: Screening. Asymptomatic. The patient is status post right mastectomy. COMPARISON: Mammography: This study is compared with prior exams dating back to 2018. TECHNIQUE: Digital breast tomosynthesis is performed in both the craniocaudal and mediolateral oblique views along with computer-aided detection (CAD). Synthesized 2D images are generated from the tomosynthesis. FINDINGS: The breasts are heterogeneously dense, which may obscure small masses (ACR BI-RADS breast composition Category c). There are no significant masses, abnormal calcifications, or other abnormalities. MM/MM tomosynthesis screening LT IMPRESSION: No mammographic evidence of malignancy. ASSESSMENT: BI-RADS BI-RADS 1 - Negative RECOMMENDATION: Routine annual mammography screening. 1 year F/U This examination should not preclude the clinical evaluation of a suspicious palpable abnormality. This patient's information was entered into a reminder system with a target due date for their next mammogram.
== END 2024-03-03 08:23 | disposition home or self-care (01) ==
LOC: HO.MAMMO 08:22
PROVIDERS: PCP Internal Medicine; Visit Provider Internal Medicine
DX: Z12.31 Encounter for screening mammogram for malignant neoplasm of breast (principal)
CPT/HCPCS: 77063; 77067

== ENCOUNTER → 2024-03-03 08:30 | Outpatient (BNV) | payer MEDICARE, OTHER, SELFPAY | PROVIDERS: PCP Internal Medicine; Visit Provider Radiology Diagnostic Radiology | DX: Z12.31 Encounter for screening mammogram for malignant neoplasm of breast (principal) | CPT/HCPCS: 77063; 77067 ==

== ENCOUNTER 2024-04-29 08:14 | Emergency (ER) | payer MEDICARE, OTHER, SELFPAY ==
--- NOTE | ~2024-04-29 | CT_ITS ---
EXAMINATION: CT ABDOMEN AND PELVIS WITHOUT CONTRAST CLINICAL INFORMATION: Left lower quadrant pain, question diverticulitis, kidney stone COMPARISON: 125/17 TECHNIQUE: Multidetector volumetric imaging was performed from the superior aspect of the liver through the pubic symphysis. Sagittal and coronal reformatted images were obtained on the technologist's workstation. This CT examination was performed using dose optimization techniques as appropriate, variously including the following: *Automated exposure control *Adjustment of mA and/or kV according to patient size (this includes techniques or standardized protocols for targeted exams where dose is matched to indication/reason for exam; i.e. extremities or head) *Use of iterative reconstruction technique DLP: 440 mGy-cm FINDINGS: PROCESS DEVELOPMENT ASSOCIATE: Mildly elevated right hemidiaphragm. Nonspecific bowel pattern with thickened appearing small bowel loops in the left mid and lower abdomen. Phleboliths. LUNG BASES: Prominent heart. No pericardial effusion. Minor atelectasis. LIVER, GALLBLADDER, AND BILIARY TREE: The liver is normal in size, shape, and attenuation. No focal hepatic lesion or biliary ductal dilatation is present. The gallbladder is unremarkable with no evidence of radiopaque gallstones, gallbladder wall thickening, or obvious pericholecystic inflammatory changes. PANCREAS: Unremarkable. SPLEEN: Unremarkable. ADRENAL GLANDS: Unremarkable. KIDNEYS AND URETERS: The kidneys are normal in size, shape, and attenuation. No hydronephrosis or hydroureter. 4 mm left renal parenchymal calcification. 2.8 cm left lower pole renal cyst. No perinephric stranding. BLADDER: Unremarkable. GASTROINTESTINAL TRACT: Decompressed stomach. Nonobstructive bowel pattern. Unremarkable appendix. Diverticulosis with abnormally thickened sigmoid colon with surrounding stranding. ABDOMINAL WALL: Fat filled umbilical hernia. LYMPH NODES: Normal. VASCULAR: Atherosclerotic calcifications nonaneurysmal aorta. Normal caliber inferior vena cava. PELVIC VISCERA: Prostate calcifications and phleboliths. OSSEOUS STRUCTURES: Degenerative changes and age uncertain superior endplate compressions of L1, L2 and L3. L3-L4 spinal canal and multilevel neuroforaminal narrowings. CT/CT abdomen pelvis wo IV con IMPRESSION: Diverticulitis. No drainable abscesses. Lumbar compression deformities of indeterminate age, most pronounced L3. Fleischner guidelines were followed.
[2024-04-29 08:21] VITALS: BP 127/97; BP 178/87; PULSE 69; PULSE 73; RESP 16; TEMP 37.4; O2SAT 93; O2SAT 94; BMI 28.9
[2024-04-29] MEDS: 0.9 % Sodium Chloride 1,000 ML 999 ML IV (08:54)
[2024-04-29 09:02] LABS: MANUAL DIFF FLAG NO
[2024-04-29 09:04] LABS: Basophils Percent Auto 0.4 % (0-2); Eosinophils Absolute Auto 0.1 X10*3/uL (0.0-0.4); Eosinophils Percent Auto 1.4 % (0-4); Hematocrit 38.2 % (37.0-47.0); Imm Gran Abs Auto 0.04 X10*3/uL (0.00-0.03); Imm Gran Pct Auto 0.5 % (0.0-0.4); Lymphocytes Absolute Auto 0.5 X10*3/uL (1.2-4.9); Lymphocytes Percent Auto 6.5 % (20-40); Mean Platelet Volume 10.1 fL (9.4-12.3); Monocytes Absolute Auto 0.8 X10*3/uL (0.1-1.2); Monocytes Percent Auto 10.2 % (2-11); Neutrophils Absolute Auto 6.5 x10*3/uL (2.0-8.3); Platelet Count 204 X10*3/uL (160-400); Red Cell Distribution Width 12.7 % (11.0-16.0); White Blood Count 8.1 X10*3/uL (4.8-10.8)
--- NOTE | 2024-04-29 09:22 | PC.NURSE ---
patient ambulated to bathroom with steady gait to give UA sample
[2024-04-29 09:31] LABS: Alanine Aminotransferase 11 U/L (0-31); Albumin Level 3.9 g/dL (3.5-5.0); Alkaline Phosphatase 75 U/L (39-117); Anion Gap 11 (12-20); Aspartate Amino Transferase 16 U/L (5-31); Bilirubin Direct 0.3 mg/dL (0.0-0.5); Bilirubin Total 0.9 mg/dL (0.0-1.0); Blood Urea Nitrogen 7 mg/dL (9-16); Calcium 9.3 mg/dL (8.4-10.2); Carbon Dioxide 26 mmol/L (22-29); Chloride 100 mmol/L (96-108); Creatinine Clr Calc Pharmacy 64.3; Estimated Glomerular Filt Rate > 60; Glucose Random 141 mg/dL (60-115); Lipase 14 U/L (8-78); Potassium 5.1 mmol/L (3.3-5.1); Sodium 132 mmol/L (135-145); Total Protein 8.2 g/dL (6.5-8.0)
--- NOTE | 2024-04-29 09:36 | ED_ITS ---
HPI - Abdominal Pain General Chief Complaint: Abdominal Pain Stated Complaint: LLQ PAIN X1W,NAUSEA Time Seen by Provider: 04/29/24 08:25 Source: patient Mode of arrival: ambulatory Limitations: no limitations History of Present Illness ED Provider: DR. Lundberg HPI narrative: 83-year-old female came in for evaluation of left lower quadrant abdominal pain for 1 week, decreased p.o. intake, mild nausea last night improved today, no vomiting, no dysuria, no frequency urination, no hematuria, normal bowel movement this morning with normal brown stool, no blood in the stool, passing flatus. History of remote hysterectomy otherwise no other intra-abdominal surgeries. Related Data Previous Rx's ?Medication ?Instructions ?Recorded atenolol 25 mg tablet 25 mg PO DAILY #90 tabs 09/20/23 simvastatin 20 mg tablet 20 mg PO DAILY #90 tabs 09/30/23 lisinopril 20 mg tablet 20 mg PO BID #180 tabs 10/04/23 doxycycline hyclate 100 mg capsule 100 mg PO BID 14 days #28 caps 12/17/23 lorazepam 0.5 mg tablet 0.5 mg PO BEDTIME PRN anxiety #30 03/11/24 tabs amoxicillin 875 mg-potassium 1 tab PO BID #14 tabs 04/29/24 clavulanate 125 mg tablet Allergies Allergy/AdvReac Type Severity Reaction Status Date / Time hydrochlorothiazide AdvReac Intermediate Palpitation Verified 04/29/24 08:25 s amlodipine AdvReac DIZZINESS Verified 04/29/24 08:25 sotalol AdvReac Palpitation Verified 04/29/24 08:25 s Review of Systems Review of Systems All other systems are reviewed and are negative Constitutional: Reports as per HPI and Reports no additional constitutional complaints Eyes: Reports as per HPI and Reports no additional eye complaints Reports system reviewed and no additional complaints, except as documented Cardiovascular: Reports as per HPI and Reports no additional cardiovascular complaints Respiratory: Reports as per HPI and Reports no additional respiratory complaints Gastrointestinal: Reports as per HPI and Reports no additional gastrointestinal complaints Genitourinary: Reports no additional female genitourinary complaints Musculoskeletal: Reports no additional musculoskeletal complaints Skin/Breast: Reports system reviewed and no additional complaints, except as docu Psychiatric: Reports no additional psychiatric complaints Endocrine: Reports no additional endocrine complaints Hematologic/Lymphatic: Reports no additional hematologic/lymphatic complaints Allergic/Immunologic: Reports no additional allergic/immunologic complaints Reports system reviewed and no additional complaints, except as documented and Reports Abnormal speech present [facility] Past Medical History Medical History Dysuria Impacted cerumen of both ears Bradycardia Dysplastic nevus Hyperglycemia Vitamin D deficiency Annual physical exam Palpitations Arrhythmia Leukoplakia of tongue Tachycardia Hyperlipidemia Peripheral neuropathy Hypertension Surgical History H/O mastectomy H/O colonoscopy Family History Family History Father No problems noted. Mother No problems noted. Son Diabetes Social History Social History Household Members Other:: lives alone, independent, daughter lives close Housing: House Alcohol intake: never Patient Tobacco Use Status: Never used Tobacco e-Cigarette/Vaping Use: Never Used Second Hand Smoke Exposure: No Advance Directives: Yes Advance Directives Information Provided: Yes Advance Directives on File: No Do you have a plan to hurt others: No Plan Current occupational status: retired Cognitive needs: No Hearing needs: No Vision needs: Yes Physical Exam ED Vital Signs: Vital Signs - 24 hr 04/29/24 08:21 04/29/24 10:33 04/29/24 12:00 Temperature 99.4 F 98.4 F 98.3 F Pulse Rate 69 77 73 Respiratory Rate 16 18 18 Blood Pressure 127/97 H 164/76 H 143/78 H Pulse Oximetry 93 93 92 Oxygen Delivery Method Room Air Room Air Room Air BMI result Body Mass Index 28.9 Vital signs have been reviewed and appear to be correct. Blood pressure elevated. Heart rate normal. Respiratory rate normal. Temperature normal. Oxygen saturation normal. Appearance: Alert. Oriented X3. No acute distress. Head: Normal external exam. Normocephalic. Atraumatic. No [place] signs noted. No raccoon eyes noted Eyes: PERRLA. EOMI. Conjunctiva and sclera normal. Eyelids normal. ENT: TM's Normal. Pharynx normal. Uvula midline. Moist mucous membranes. No trismus noted. No drooling noted. No muffled voice noted. Neck: Normal inspection. Neck supple. FROM. No adenopathy. Thyroid Normal. No meningeal signs. No neck mass noted. CVS: Normal heart rate and rhythm. Heart sound normal. No murmurs noted. Pulses normal throughout. Respiratory: No respiratory distress. Painless inspiration. Breath sounds normal. No wheezes/rales/rhonchi noted. Chest nontender. No accessory muscle usage noted or decreased air movement noted. Abdomen: Soft , left lower quadrant abdominal tenderness, no guarding, no rebound tenderness. Bowel sounds normal in all 4 quadrants. No distention noted. No organomegaly noted. No visible injury noted. Back: No CVA tenderness. Full range of motion noted. Skin: Skin warm and dry. Normal skin color. Normal skin turgor. No rashes/lesions/lacerations noted. Extremities: No lower extremity edema. Extremities exhibit normal range of motion. Extremities nontender. Neuro: Oriented X 3. Cranial nerve exam: II-XII are grossly intact No motor deficit. No sensory deficit. Reflexes normal. Course Reevaluation(s) Reevaluation #1: 83-year-old female came in for left lower quadrant abdominal pain, patient otherwise stable, normal white count, CT showing simple diverticulitis with no complications, treatment option was discussed with the patient agreed to try oral antibiotic will start on Augmentin. Patient tolerated p.o. Augmentin in the ED. Time: 11:34 Medical Decision Making Differential Diagnosis Differential Diagnoses: The differential diagnosis associated with the presentation includes (Diverticulitis, acute appendicitis colitis, pancreatitis, acute cholecystitis, UTI, pyelonephritis, kidney stone, electrolyte derangement, severe anemia.) Admission/Observation Consideration of admission/observation: Escalation of care including admission/observation considered Lab Data MDM Lab Attestation statement: I reviewed the patient's lab results. 04/29/24 08:57 04/29/24 08:57 Labs: Lab Results 04/29/24 04/29/24 Range/Units 08:57 09:30 WBC 8.1 (4.8-10.8) X10*3/uL RBC 4.20 (4.20-5.50) X10*6/uL Hgb 13.0 (12.0-16.0) g/dl Hct 38.2 (37.0-47.0) % MCV 91.0 (80.0-98.0) fL MCH 31.0 (27.0-33.0) pg MCHC 34.0 (31.0-35.0) g/dl RDW 12.7 (11.0-16.0) % Plt Count 204 (160-400) X10*3/uL MPV 10.1 (9.4-12.3) fL Immature Gran % (Auto) 0.5 H (0.0-0.4) % Neut % (Auto) 81.0 H (45-73) % Lymph % (Auto) 6.5 L (20-40) % [place] % (Auto) 10.2 (2-11) % Eos % (Auto) 1.4 (0-4) % Baso % (Auto) 0.4 (0-2) % Lymph # (Auto) 0.5 L (1.2-4.9) X10*3/uL [place] # (Auto) 0.8 (0.1-1.2) X10*3/uL Eos # (Auto) 0.1 (0.0-0.4) X10*3/uL Baso # (Auto) 0.0 (0.0-0.2) X10*3/uL Abs Immat Gran (auto) 0.04 H (0.00-0.03) X10*3/uL Absolute Neuts (auto) 6.5 (2.0-8.3) x10*3/uL Absolute Nucleated RBC 0.000 (0.0-0.012) X10*3/uL Nucleated RBC % (auto) 0.0 (0.0-0.2) /100WBC Sodium 132 L (135-145) mmol/L Potassium 5.1 (3.3-5.1) mmol/L Chloride 100 (96-108) mmol/L Carbon Dioxide 26 (22-29) mmol/L Anion Gap 11 L (12-20) BUN 7 L (9-16) mg/dL Creatinine 0.70 (0.5-1.4) mg/dL Estim Creat Clear Calc 64.3 Estimated GFR > 60 Random Glucose 141 H (60-115) mg/dL Calcium 9.3 (8.4-10.2) mg/dL Total Bilirubin 0.9 (0.0-1.0) mg/dL Direct Bilirubin 0.3 (0.0-0.5) mg/dL AST 16 (5-31) U/L ALT 11 (0-31) U/L Alkaline Phosphatase 75 (39-117) U/L Troponin I High Sens 4.0 (<3.5-17.0) ng/L Total Protein 8.2 H (6.5-8.0) g/dL Albumin 3.9 (3.5-5.0) g/dL Lipase 14 (8-78) U/L Urine Color Yellow Urine Appearance Clear Urine pH 7.0 (5.0-9.0) Ur Specific [place] 1.010 (1.005-1.025) Urine Protein Negative (Neg-Trace) mg/dL Urine Glucose (UA) Negative (Negative) mg/dL Urine Ketones Negative (Negative) mg/dL Urine Blood Negative (Negative) Urine Nitrite Negative (Negative) Ur Leukocyte Esterase Negative (Negative) Independent Interpretation I performed an independent interpretation of an: CT Scan (Abdomen pelvis:Diverticulitis. No drainable abscesses. Lumbar compression deformities of indeterminate age, most pronounced L3.) Radiology Impression Discussion of test interpretation with radiology: I have reviewed the radiologist's reading. Medications Administered Discontinued Medications Generic Name Dose Route Start Last Admin Trade Name Freq PRN Reason Stop Dose Admin Amoxicillin/Clavulanate Potassium 875 mg 04/29/24 11:36 04/29/24 11:48 Amoxicillin/Potassium Clav 875 Mg Tablet PO 04/29/24 11:37 875 mg ONCE ONE Administration Sodium Chloride 1,000 mls @ 999 mls/hr 04/29/24 08:23 04/29/24 08:54 Ns IV 04/29/24 09:23 999 mls/hr .Q1H1M ONE Administration Discharge Plan Discharge Clinical Impression: Acute diverticulitis Patient Disposition: Home, Self-Care Instructions: Diverticulitis (ED), Diverticulitis Diet (ED) Prescriptions: New amoxicillin-pot clavulanate 875-125 mg tablet 1 tab PO BID Qty: 14 0RF No Action simvastatin 20 mg tablet 20 mg PO DAILY Qty: 90 3RF lisinopril 20 mg tablet 20 mg PO BID Qty: 180 3RF lorazepam 0.5 mg tablet 0.5 mg PO BEDTIME PRN (Reason: anxiety) Qty: 30 0RF atenolol 25 mg tablet 25 mg PO DAILY Qty: 90 3RF doxycycline hyclate 100 mg capsule 100 mg PO BID 14 Days Qty: 28 0RF Referrals: Krista Allen MD [Primary Care Provider] - Dana Hassan MD [Physician] - Print Language: Bhutanese
[2024-04-29 09:51] LABS: Appearance Urine Clear; Color Urine Yellow; Glucose Urine UA Negative (Negative); Leukocyte Esterase Urine Negative (Negative); Nitrite Urine Negative (Negative); Urine Blood Negative (Negative); Urine Ketones Negative (Negative); Urine Protein Negative (Neg-Trace)
[2024-04-29 10:33] VITALS: BP 164/76; PULSE 77; RESP 18; TEMP 36.9; O2SAT 93
[2024-04-29] MEDS: Amoxicillin/Potassium Clav 875 MG TABLET PO (11:48)
[2024-04-29 12:00] VITALS: BP 143/78; PULSE 73; RESP 18; TEMP 36.8; O2SAT 92
[2024-04-29 12:34] VITALS: BP 143/78; PULSE 73; RESP 18; TEMP 36.8; O2SAT 92
== END 2024-04-29 12:36 | disposition home or self-care (01) ==
PROVIDERS: Emergency Provider Emergency Medicine; PCP Internal Medicine
DX: K57.32 Diverticulitis of large intestine without perforation or abscess without bleeding (principal); R10.32 Left lower quadrant pain; Z79.899 Other long term (current) drug therapy
CPT/HCPCS: 36415; 74176; 80048; 80076; 81003; 83690; 84484; 85025; 99284

== ENCOUNTER 2024-07-22 09:01 | Outpatient (AMB) | payer MEDICARE, OTHER, SELFPAY ==
[2024-07-22 09:04] VITALS: BP 138/86; PULSE 74; O2SAT 96; BMI 27.3
--- NOTE | 2024-07-22 09:04 | AM.OFFVISMDC ---
Intake Vital Signs 07/22/24 09:04 Height 5 ft 6 in Weight 169 lb BMI 27.3 BP 138/86 Blood Pressure Location Lt brachial Position Sitting Pulse 74 Pulse Source Pulse Oximeter Pulse Oximetry (%) 96 Oxygen Delivery Method Room Air Intake Visit Reasons: V [id number] Allergies hydrochlorothiazide Adverse Reaction (Intermediate, Verified 07/22/24 09:06) Palpitations amlodipine Adverse Reaction (Verified 07/22/24 09:06) DIZZINESS sotalol Adverse Reaction (Verified 07/22/24 09:06) Palpitations Medication List - Last Reconciled 07/22/24 by Krista Allen MD atenolol 25 mg PO DAILY lisinopril 20 mg PO BID lorazepam 0.5 mg PO BEDTIME PRN nifedipine ER 30 mg PO DAILY simvastatin 20 mg PO DAILY HPI SWV [id number] HPI Details Initiated the conversation about Advanced Directives. Advanced Directives help? patients prepare for current and future decisions about their medical treatment? and place of care. Discussed with patient that it is a process where a patients? current condition and prognosis are reviewed, their wishes for information? regarding their illness are elicited, and likely medical dilemmas are presented? and options discussed. The form can be amended as needed, reviewed yearly and? make changes as needed IPPE/AWV ? year old presents? for her ? Annual? Wellness Visit, initial visit.? Medical / Social History Reviewed? Past Medical History ?Yes? . ? [place]? of Care / Care Team list updated ?Yes . ? Surgical/Hospitalization? History ?Yes . ? Current Medications? (including OTC and supplements) ?Yes . ? Family History ?Yes? . ? Tobacco? Control form ?Yes . ? AUDIT-C (Alcohol use) form? ?Yes . ? Illicit drug use in Social? History ?Yes . ? Current diagnosis of? depression? ?No ? Appropriate PHQ2/PHQ9? completed ?Yes . ? Data entered by ?Medical? Computer Tape Librarian and reviewed by provider ? Fall Risk ? Fall? History? Have you had any falls with? injury in the past year? ?No . ? Have you had two or more? falls in the past year? ?No . ? Fall Risk Assessment: ?No? falls in the past year . ? HRA filled out by? the patient, reviewed by Provider and scanned. ? IPPE/AWV ? Balance? [place]? ?Yes . ? Tandem? walk ?Yes . ? Walk and? Turn ?Yes . ? Rise from? sit to stand ?Yes . ?Vision? Corrective? lens ?Yes ? Vision? screen ? Up-to-date, has an appointment [] for vision? screening and glaucoma screening ?Hearing? Whisper? test ?pass .? Initiated the conversation about Advanced Directives. Advanced Directives help? patients prepare for current and future decisions about their medical treatment? and place of care. Discussed with patient that it is a process where a patients? current condition and prognosis are reviewed, their wishes for information? regarding their illness are elicited, and likely medical dilemmas are presented? and options discussed. The form can be amended as needed, reviewed yearly and? make changes as needed Written? Plan?Completed. See Patient? Documents. [facility] Medical History Dysuria Impacted cerumen of both ears Bradycardia Dysplastic nevus Hyperglycemia Vitamin D deficiency Annual physical exam Palpitations Arrhythmia Leukoplakia of tongue Tachycardia Hyperlipidemia Peripheral neuropathy Hypertension Surgical History H/O mastectomy H/O colonoscopy Family History Father No problems noted. Mother No problems noted. Son Diabetes Social History Household Members Other:: lives alone, independent, daughter lives close Housing: House Alcohol intake: never Patient Tobacco Use Status: Never used Tobacco e-Cigarette/Vaping Use: Never Used Second Hand Smoke Exposure: No Current occupational status: retired Cognitive needs: No Hearing needs: No Vision needs: Yes Questionnaire Medicare Wellness Checkup What is your age?: 79 or older What gender do you identify with?: female During the past 4 weeks, how much have you been bothered by emotional problems such as feeling anxious, depressed, irritable, sad or downhearted, and blue?: not at all During the past 4 weeks, has your physical & emotional health limited your social activities with family, friends, neighbors, or groups?: not at all During the past 4 weeks, how much bodily pain have you generally had?: no pain During the past 4 weeks, was someone available to help you if you needed & wanted help?: yes, quite a bit During the past 4 weeks, what was the hardest physical activity you could do for at least 2 minutes?: moderate Can you get to places out of walking distance without help? (For eg., can you travel alone on buses, taxis or drive your car?): Yes Can you go shopping for groceries or clothes without someone's help?: Yes Can you prepare your own meals?: Yes Can you do your housework without help?: Yes Because of any health problems, do you need the help of another person with your personal care needs such as eating, bathing, dressing or getting around the house?: No Can you handle your own money without help?: Yes During the past 4 weeks, how would you rate your health in general?: very good During the past 4 weeks how have things been going for you?: pretty well Are you having difficulties driving your car?: no Do you always fasten your seat belt when you are in a car?: yes, usually During past 4 weeks, have you been bothered by the following: never: Sexual problems?, Teeth or denture problems?, Problems using the telephone? and Tiredness or fatigue? and seldom: Falling or dizzy when standing up and Trouble eating well? Have you fallen 2 or more times in the past year?: No Are you afraid of falling?: No Are you a smoker?: no During the past 4 weeks, how many drinks of wine, beer, or other alcoholic beverages did you have?: no alcohol at all Do you exercise for about 20 minutes 3 or more times a week?: yes, most of the time Have you been given information to help with the following?: no: Hazards in your house that might hurt you? and no: Keeping track of your medications? How often do you have trouble taking medicines the way you have been told to take them?: I always take medicine as prescribed How confident are you that you can control & manage most of your health problems?: very confident What is your race?: White Mini Mental State Exam (MMSE) Orientation What is the (year) (season) (date) (day) (month)?: year, season, date, day and month Where are we (state) (county) (town or city) (hospital) (floor)?: state, county, town or city, hospital/clinic and floor Registration Name of 3 unrelated objects clearly and slowly, then ask patient to repeat all 3 of them. (1st repeat determines score. Make sure they can repeat all three): object 1, object 2 and object 3 Attention & Calculation (CHOOSE ONE) Spell WORLD backwards (DLROW): 5 letters Recall Ask patient to repeat the 3 items from question #3.: object 1, object 2 and object 3 Language Show patient a wristwatch & ask what it is. Repeat for pencil.: watch and pencil Ask the patient to repeat the phrase 'No ifs, ands, or buts' after you.: correct Ask the patient to 'take a piece of paper with their right hand' 'fold paper in half' 'place paper on floor': take paper in right hand, fold paper in half and place paper on floor Print the sentence 'CLOSE YOUR EYES' on a piece. If patient actually closes eyes then score.: followed written direction Give patient a blank piece of paper & ask to write a sentence. Score if it contains a noun & verb.: sentence contains subject and verb Score Score: 29 PHQ-9 Over the last 2 weeks, how often have you been bothered by any of the following problems? 1. Little interest or pleasure in doing things: not at all 2. Feeling down, depressed, or hopeless: not at all 3. Trouble falling or staying asleep, or sleeping too much: more than half the days 4. Feeling tired or having little energy: not at all 5. Poor appetite or overeating: not at all 6. Feeling bad about yourself - or that you are a failure or have let yourself or your family down: not at all 7. Trouble concentrating on things, such as reading the newspaper or watching television: not at all 8. Moving or speaking so slowly that other people could have noticed. Or the opposite - being so fidgety or restless that you have been moving around a lot more than usual: not at all 9. Thoughts that you would be better off or of hurting yourself in some way: not at all Total score: 2 Depression Screening Interpretation: Negative Depression Screening Done: Yes 29757 - PHQ-9 Billing: Yes Source: Developed by Drs. Jae Sandoval, Yolanda Ennis, Darnell Matias and colleagues, with an educational chu from [employer]. Review of Systems Const All systems reviewed & are unremarkable except as noted in HPI and below Eyes Reports no additional complaints ENT Reports no additional complaints Card Reports no additional complaints Resp Reports no additional complaints GI Reports no additional complaints Reports no additional complaints Physical Exam Vital Signs: Last Vital Signs Pulse 74 07/22/24 09:04 BP 138/86 07/22/24 09:04 Pulse Ox 96 07/22/24 09:04 Oxygen Delivery Method Room Air 07/22/24 09:04 BMI result Body Mass Index 27.3 HEENT Head: Yes normal to inspection Neck Neck: Yes no lymphadenopathy and Yes supple Resp Effort & Inspection: normal respiratory effort Auscultation: clear to auscultation bilaterally Cardio Rhythm: regular rhythm Heart sounds: S1 normal heart sound present and S2 normal heart sound present GI Inspection: Yes normal to inspection Palpation (GI): Soft to palpation Percussion: Yes normal to percussion Auscultation: normal bowel sounds Extrem General: Yes no clubbing, cyanosis or edema Results AMB Urinalysis, Automated UA Leukoctes 0 Brian/uL Last Edit by Bela Head [facility] on 07/22/24 10:45 UA Nitrite Negative Last Edit by Bela Head [facility] on 07/22/24 10:45 UA Urobilinogen 0.2 mg/dL Last Edit by Bela Head [facility] on 07/22/24 10:45 UA Protein 0 mg/dL Last Edit by Bela Head [facility] on 07/22/24 10:45 UA pH 6.0 Last Edit by Bela Head [facility] on 07/22/24 10:45 UA Blood 0 Chapo/uL Last Edit by Bela Head [facility] on 07/22/24 10:45 UA Specific [place] 1.015 Last Edit by Bela Head [facility] on 07/22/24 10:45 UA Ketone Negative Last Edit by Bela Head [facility] on 07/22/24 10:45 UA Bilirubin 0 mg/dL Last Edit by Bela Head [facility] on 07/22/24 10:45 UA Glucose 0 mg/dL Last Edit by Bela Head [facility] on 07/22/24 10:45 Results Reviewed Results Reviewed: Laboratory Last Values Urine pH (Auto) 6.0 07/22/24 10:44 Specific [place] (Auto) 1.015 07/22/24 10:44 Urine Protein (Auto) 0 mg/dL 07/22/24 10:44 Glucose (UA)(Auto) 0 mg/dL 07/22/24 10:44 Urine Ketones (Auto) Negative 07/22/24 10:44 Urine Blood (Auto) 0 Chapo/uL 07/22/24 10:44 Urine Nitrite (Auto) Negative 07/22/24 10:44 Urine Bilirubin (Auto) 0 mg/dL 07/22/24 10:44 Urine Urobilinogen (Auto) 0.2 mg/dL 07/22/24 10:44 Leukocyte Esterase (Auto) 0 Brian/uL 07/22/24 10:44 Assessment & Plan Assessment & Plan (1) UTI (urinary tract infection): Code(s): N39.0 - Urinary tract infection, site not specified Plan: For symptoms of lower abdominal discomfort and increased urinary frequency check UA and cultures (2) Hyperglycemia: Code(s): R73.9 - Hyperglycemia, unspecified Plan: ADA diet regular physical activity discussed with the patient A1c will be monitored (3) Hyperlipidemia: Code(s): E78.5 - Hyperlipidemia, unspecified Plan: Continue simvastatin (4) Hypertension: Code(s): I10 - Essential (primary) hypertension Plan: Add nifedipine 30 mg q.h.s. continue lisinopril and atenolol follow-up in 1 month (5) Annual physical exam: Code(s): Z00.00 - Encounter for general adult medical examination without abnormal findings Plan: Well-balanced diet regular physical activity discussed with the patient Orders: Orders UA w Microscopic Today N39.0 - Urinary tract infection, site not specified Urine Culture Today N39.0 - Urinary tract infection, site not specified Complete Blood Count Auto Diff Today E78.5 - Hyperlipidemia, unspecified, I10 - Essential (primary) hypertension, R73.9 - Hyperglycemia, unspecified, Z00.00 - Encounter for general adult medical examination without abnormal findings Comprehensive Met. Panel Today E78.5 - Hyperlipidemia, unspecified, I10 - Essential (primary) hypertension, R73.9 - Hyperglycemia, unspecified, Z00.00 - Encounter for general adult medical examination without abnormal findings Hemoglobin A1c Today E78.5 - Hyperlipidemia, unspecified, I10 - Essential (primary) hypertension, R73.9 - Hyperglycemia, unspecified, Z00.00 - Encounter for general adult medical examination without abnormal findings TSH reflex Free T4 Today E78.5 - Hyperlipidemia, unspecified, I10 - Essential (primary) hypertension, R73.9 - Hyperglycemia, unspecified, Z00.00 - Encounter for general adult medical examination without abnormal findings AMB Urinalysis Automated Today Z13.9 - Encounter for screening, unspecified Medications: New nifedipine ER 30 mg PO DAILY 90 tabs 0RF Quality Reporting (2019) Depression/Bipolar (159/160/161/177) PHQ-9: Total score: 2 Coding Level of Care Code Medicare Subsequent (G0439) Diagnoses UTI (urinary tract infection) N39.0 Hyperglycemia R73.9 Hyperlipidemia E78.5 Hypertension I10 Annual physical exam Z00.00 CPT Codes Advance Care Planning - Time spent: 1-15 minutes, not on file ([id number]) Advance Care Planning Advance Care Planning discussion: Exists, not on file Forms completed: Health Care Proxy Time spent: 1-15 minutes, not on file Did not discuss due to Cultural/Spiritual beliefs: Yes
== END 2024-07-22 10:15 | disposition home or self-care (01) ==
LOC: HO.HMCC 09:01
PROVIDERS: PCP Internal Medicine; Visit Provider Internal Medicine
DX: Z00.00 Encounter for general adult medical examination without abnormal findings (principal); N39.0 Urinary tract infection, site not specified; R73.9 Hyperglycemia, unspecified; E78.5 Hyperlipidemia, unspecified; I10 Essential (primary) hypertension

== ENCOUNTER 2024-07-22 09:01 | Outpatient (REF) | payer MEDICARE, OTHER, SELFPAY ==
[2024-07-22 13:30] LABS: MANUAL DIFF FLAG NO
[2024-07-22 13:33] LABS: Appearance Urine Clear; Color Urine Yellow; Glucose Urine UA Negative (Negative); Leukocyte Esterase Urine Small (1+) (Negative); Nitrite Urine Negative (Negative); PH 6.5 (5.0-9.0); UMIC TRIGGER UA YES; Urine Blood Negative (Negative); Urine Ketones Trace mg/dL (Negative); Urine Protein Negative (Neg-Trace)
[2024-07-22 13:45] LABS: Basophils Absolute Auto 0.1 X10*3/uL (0.0-0.2); Basophils Percent Auto 0.8 % (0-2); Eosinophils Absolute Auto 0.2 X10*3/uL (0.0-0.4); Eosinophils Percent Auto 3.1 % (0-4); Hematocrit 39.9 % (37.0-47.0); Hemoglobin 13.2 g/dl (12.0-16.0); Imm Gran Abs Auto 0.01 X10*3/uL (0.00-0.03); Imm Gran Pct Auto 0.2 % (0.0-0.4); Lymphocytes Absolute Auto 2.1 X10*3/uL (1.2-4.9); Lymphocytes Percent Auto 33.9 % (20-40); Mean Corpuscular HGB Conc 33.1 g/dl (31.0-35.0); Mean Corpuscular Hemoglobin 30.5 pg (27.0-33.0); Mean Corpuscular Volume 92.1 fL (80.0-98.0); Mean Platelet Volume 10.7 fL (9.4-12.3); Monocytes Absolute Auto 0.7 X10*3/uL (0.1-1.2); Monocytes Percent Auto 11.6 % (2-11); Neutrophils Absolute Auto 3.1 x10*3/uL (2.0-8.3); Neutrophils Percent Auto 50.4 % (45-73); Platelet Count 225 X10*3/uL (160-400); Red Blood Count 4.33 X10*6/uL (4.20-5.50); Red Cell Distribution Width 13.2 % (11.0-16.0); White Blood Count 6.1 X10*3/uL (4.8-10.8)
[2024-07-22 13:49] LABS: Bacteria Urine None Seen (None Seen); Hyaline Casts Urine 0-2 /LPF (0-2); RBC Urine 0-2 /HPF (0-2); WBC Urine 0-5 /HPF (0-5)
[2024-07-22 14:20] LABS: Alanine Aminotransferase 17 U/L (0-31); Alkaline Phosphatase 63 U/L (39-117); Anion Gap 9 (12-20); Aspartate Amino Transferase 26 U/L (5-31); Bilirubin Total 1.2 mg/dL (0.0-1.0); Blood Urea Nitrogen 8 mg/dL (9-16); Calcium 9.4 mg/dL (8.4-10.2); Carbon Dioxide 27 mmol/L (22-29); Chloride 102 mmol/L (96-108); Estimated Glomerular Filt Rate > 60; Glucose Random 114 mg/dL (60-115); Potassium 4.1 mmol/L (3.3-5.1); Sodium 134 mmol/L (135-145); TSH reflex Free T4 0.88 uIU/mL (0.32-4.0); Total Protein 8.3 g/dL (6.5-8.0)
[2024-07-22 14:48] LABS: Estimated Average Glucose 131 mg/dL; Hemoglobin A1C 169.3664 umol/L; Hemoglobin A1c % 6.2 % (<6.0); Total Hemoglobin (HGBA1C) 3858.5894 umol/L
== END 2024-07-22 09:02 | disposition home or self-care (01) ==
LOC: HO.HMGCLDS 09:01
PROVIDERS: PCP Internal Medicine; Visit Provider Internal Medicine
DX: Z00.00 Encounter for general adult medical examination without abnormal findings (principal); N39.0 Urinary tract infection, site not specified; R73.9 Hyperglycemia, unspecified; E78.5 Hyperlipidemia, unspecified; I10 Essential (primary) hypertension; Z79.899 Other long term (current) drug therapy
CPT/HCPCS: 36415; 80053; 81001; 81003; 83036; 84443; 85025; 87086; 96127

== ENCOUNTER 2024-08-19 10:48 | Outpatient (AMB) | payer MEDICARE, OTHER, SELFPAY ==
[2024-08-19 11:05] VITALS: BP 138/80; PULSE 76; O2SAT 97; BMI 27.1
--- NOTE | 2024-08-19 11:05 | A.OFFPC_ITS ---
Vital Signs 08/19/24 11:05 Height 5 ft 6 in Weight 168 lb BMI 27.1 BP 138/80 Blood Pressure Location Rt brachial Position Sitting Pulse 76 Pulse Source Pulse Oximeter Pulse Oximetry (%) 97 Oxygen Delivery Method Room Air Intake Visit Reasons: 1 month f/u Intake Note: pt is here for 1 month f/up Hospital Insurance Clerk Required: No Accompanied by: Self / Same As Patient Allergies hydrochlorothiazide Adverse Reaction (Intermediate, Verified 08/19/24 11:05) Palpitations amlodipine Adverse Reaction (Verified 08/19/24 11:05) DIZZINESS sotalol Adverse Reaction (Verified 08/19/24 11:05) Palpitations Medication List - Last Reconciled 08/19/24 by Krista Allen MD atenolol 37.5 mg (1.5 x 25 mg) PO DAILY lisinopril 20 mg PO BID lorazepam 0.5 mg PO BEDTIME PRN simvastatin 20 mg PO DAILY Tobacco use date assessed: 09/20/23 Fall risk assessment: No Falls in past year Last assessed Fall Risk: 08/19/24 Dental Screening Dental Screen Date: 09/20/23 HPI 1 month f/u HPI Details Pt presents for f/u HTN, hyperlipid, stable on meds. Pt did not start Nifedipine because she was concerned of the side effects including lower extremity edema. [facility] Medical History Dysuria Impacted cerumen of both ears Bradycardia Dysplastic nevus Hyperglycemia Vitamin D deficiency Annual physical exam Palpitations Arrhythmia Leukoplakia of tongue Tachycardia Hyperlipidemia Peripheral neuropathy Hypertension Surgical History H/O mastectomy H/O colonoscopy Family History Father No problems noted. Mother No problems noted. Son Diabetes Social History Household Members Other:: lives alone, independent, daughter lives close Housing: House Alcohol intake: never Patient Tobacco Use Status: Never used Tobacco e-Cigarette/Vaping Use: Never Used Second Hand Smoke Exposure: No Current occupational status: retired Cognitive needs: No Hearing needs: No Vision needs: Yes Questionnaire Thrive Questionnaire Date Thrive assessed: 08/12/24 I am a: Patient What is your living situation today?: I have a steady place to live Within the past 12 months, did the food you bought not last and you didn't have the money to get more?: Never true Within the past 12 months, did you worry whether your food would run out before you got money to buy more?: Never true Do you have trouble paying for medicines?: No Do you have trouble getting transportation to medical appointments?: No Do you have trouble paying your heating and electricity bill?: No Do you have trouble taking care of your child, family member or friend?: No Do you have trouble with day-to-day activities such as bathing, preparing meals, shopping, managing finances, etc.?: No Are you currently unemployed and looking for a job?: No Are you interested in more education?: No Please select the resources that you would like help with: None Currently or been in a relationship where the following occur: I choose not to answer THRIVE Score: 0 AUDIT C Alcohol Use Questionnaire (AUDIT-C) 1. How often do you have a drink containing alcohol?: Never 3. How often do you have six or more drinks on one occasion?: Never Total Score: 0 Score Reviewed/Action Taken: Yes BRADY-7 AMB Questionnaire BRADY-7 Date BRADY - 7 assessed: 09/20/23 Feeling nervous, anxious, or on edge: 0 = Not at all Not being able to stop or control worryin = Not at all Worrying too much about different things: 0 = Not at all Trouble relaxin = Not at all Being so restless that it is hard to sit still: 0 = Not at all Becoming easily annoyed or irritable: 0 = Not at all Feeling afraid as if something awful might happen: 0 = Not at all Total BRADY-7 score (0-4 normal; 5-9 mild; 10-14 moderate; 15-21 severe): 0 Source: Developed by Drs. Jae Sandoval, Yolanda Ennis, Darnell Matias and colleagues, with an educational chu from [employer]. Review of Systems Const All systems reviewed & are unremarkable except as noted in HPI and below ENT Reports no additional complaints Card Reports no additional complaints Resp Reports no additional complaints GI Reports no additional complaints Reports no additional complaints Physical exam (Primary Care) Vital Signs: Last Vital Signs Pulse 76 08/19/24 11:05 BP 138/80 08/19/24 11:05 Pulse Ox 97 08/19/24 11:05 Oxygen Delivery Method Room Air 08/19/24 11:05 BMI result Body Mass Index 27.1 Tobacco/Smoking Status: Tobacco use Status Tobacco use date assessed 09/20/23 08/19/24 11:06 Patient Tobacco Use Status Never used Tobacco 08/19/24 11:06 e-Cigarette/Vaping Use Never Used 08/19/24 11:06 Thrive Assessment: Date of Thrive Assessment Date Thrive assessed 08/12/24 08/19/24 11:06 Currently or been in a relationship where the following occur: I choose not to answer Const General: no acute distress HENMT Face and sinus: Yes normal facial exam Eyes General: appearance normal, both eyes and all related structures Neck Neck: Yes supple Resp Effort & Inspection: normal respiratory effort Auscultation: clear to auscultation bilaterally Cardio Rhythm: regular rhythm Heart sounds: S1 normal heart sound present and S2 normal heart sound present GI Inspection: Yes normal to inspection Coding Level of Care Code Est Pt Level 4 (38827) Diagnoses Hypertension I10 Hyperglycemia R73.9 Hyperlipidemia E78.5 Assessment & Plan Assessment & Plan (1) Hypertension: Code(s): I10 - Essential (primary) hypertension Category: Medical Plan: Increase atenolol to 1 and half tablet of 25 mg, continue lisinopril , increase physical activity (2) Hyperglycemia: Code(s): R73.9 - Hyperglycemia, unspecified Category: Medical Plan: A1c is 6.2, ADA diet regular physical activity discussed with the patient (3) Hyperlipidemia: Code(s): E78.5 - Hyperlipidemia, unspecified Category: Medical Plan: Continue statin, follow-up in 2 months Orders: Orders Comprehensive [employer]. Panel Fast 2 Months I10 - Essential (primary) hypertension, R73.9 - Hyperglycemia, unspecified Hemoglobin A1c 2 Months I10 - Essential (primary) hypertension, R73.9 - Hyperglycemia, unspecified Medications: Changed From atenolol 25 mg PO DAILY 90 tabs 3RF To atenolol 37.5 mg (1.5 x 25 mg) PO DAILY 135 tabs 3RF Discontinued nifedipine ER Discontinued Reason: Doctor's Order 30 mg PO DAILY 90 tabs 0RF
== END 2024-08-19 11:29 | disposition home or self-care (01) ==
PROVIDERS: PCP Internal Medicine; Visit Provider Internal Medicine
DX: I10 Essential (primary) hypertension (principal); R73.9 Hyperglycemia, unspecified; E78.5 Hyperlipidemia, unspecified

== ENCOUNTER → 2024-08-19 10:48 | Outpatient (BNVA) | payer MEDICARE, OTHER, SELFPAY | PROVIDERS: PCP Internal Medicine; Visit Provider Internal Medicine | DX: I10 Essential (primary) hypertension (principal); E78.5 Hyperlipidemia, unspecified; R73.9 Hyperglycemia, unspecified | CPT/HCPCS: 99212 ==

== ENCOUNTER 2024-10-16 09:59 | Outpatient (REF) | payer MEDICARE, OTHER, SELFPAY ==
[2024-10-16 13:30] LABS: Estimated Average Glucose 128 mg/dL; Hemoglobin A1C 144.6475 umol/L; Hemoglobin A1c % 6.1 % (<6.0); Total Hemoglobin (HGBA1C) 3318.5213 umol/L
[2024-10-16 13:56] LABS: Alanine Aminotransferase 12 U/L (0-31); Alkaline Phosphatase 65 U/L (39-117); Anion Gap 7 (12-20); Aspartate Amino Transferase 24 U/L (5-31); Bilirubin Total 0.9 mg/dL (0.0-1.0); Blood Urea Nitrogen 8 mg/dL (9-16); Calcium 9.6 mg/dL (8.4-10.2); Carbon Dioxide 28 mmol/L (22-29); Chloride 105 mmol/L (96-108); Estimated Glomerular Filt Rate > 60; Glucose Fasting 109 mg/dL (60-99); Potassium 4.2 mmol/L (3.3-5.1); Sodium 136 mmol/L (135-145); Total Protein 9.1 g/dL (6.5-8.0)
== END 2024-10-16 10:00 | disposition home or self-care (01) ==
LOC: HO.HMGCLDS 09:59
PROVIDERS: PCP Internal Medicine; Visit Provider Internal Medicine
DX: I10 Essential (primary) hypertension (principal); R73.9 Hyperglycemia, unspecified
CPT/HCPCS: 36415; 80053; 83036

== ENCOUNTER 2024-10-21 09:32 | Outpatient (AMB) | payer MEDICARE, OTHER, SELFPAY ==
[2024-10-21 09:44] VITALS: BP 134/74; PULSE 64; RESP 20; TEMP 36.9; O2SAT 98; BMI 27.1
--- NOTE | 2024-10-21 09:44 | MHC.PC.OV ---
Vital Signs 10/21/24 09:44 Height 5 ft 6 in Weight 168 lb BMI 27.1 BP 134/74 Blood Pressure Location Lt brachial Position Sitting Respiration 20 Pulse 64 Pulse Source Pulse Oximeter Temp 98.5 F Temp Source Oral Pulse Oximetry (%) 98 Oxygen Delivery Method Room Air Intake Visit Reasons: 2 months f/up Intake Note: Pt is here today for 2 months follow up visit. Allergies hydrochlorothiazide Adverse Reaction (Intermediate, Verified 10/21/24 09:47) Palpitations amlodipine Adverse Reaction (Verified 10/21/24 09:47) DIZZINESS sotalol Adverse Reaction (Verified 10/21/24 09:47) Palpitations Medication List - Last Reconciled 10/21/24 by Krista Allen MD atenolol 37.5 mg (1.5 x 25 mg) PO DAILY lisinopril 20 mg PO BID lorazepam 0.5 mg PO BEDTIME PRN simvastatin 20 mg PO DAILY Tobacco use date assessed: 10/21/24 Fall risk assessment: No Falls in past year Last assessed Fall Risk: 10/21/24 Dental Screening Dental Screen Date: 10/21/24 Did you have a dental visit in the last 12 months?: Yes Did you have a dental problem in the last 6 months where you did not have access to dental care?: No Was dental information given to patient?: Patient has dentist HPI 2 months f/up HPI Details Pt presents for follow-up of hypertension and hyperlipidemia. Patient reports episodes of palpitations and occasionally irregular heart rate she feels by palpating her pulse once or twice a day lasting a few seconds not associated with chest pain no shortness a breath. [facility] Medical History Dysuria Impacted cerumen of both ears Bradycardia Dysplastic nevus Hyperglycemia Vitamin D deficiency Annual physical exam Palpitations Arrhythmia Leukoplakia of tongue Tachycardia Hyperlipidemia Peripheral neuropathy Hypertension Surgical History H/O mastectomy H/O colonoscopy Family History Father No problems noted. Mother No problems noted. Son Diabetes Social History Household Members Other:: lives alone, independent, daughter lives close Housing: House Alcohol intake: never Patient Tobacco Use Status: Never used Tobacco e-Cigarette/Vaping Use: Never Used Second Hand Smoke Exposure: No service: No Current occupational status: retired Cognitive needs: No Hearing needs: No Vision needs: Yes Questionnaire PHQ-9 Over the last 2 weeks, how often have you been bothered by any of the following problems? 1. Little interest or pleasure in doing things: not at all 2. Feeling down, depressed, or hopeless: not at all 3. Trouble falling or staying asleep, or sleeping too much: not at all 4. Feeling tired or having little energy: not at all 5. Poor appetite or overeating: not at all 6. Feeling bad about yourself - or that you are a failure or have let yourself or your family down: not at all 7. Trouble concentrating on things, such as reading the newspaper or watching television: not at all 8. Moving or speaking so slowly that other people could have noticed. Or the opposite - being so fidgety or restless that you have been moving around a lot more than usual: not at all 9. Thoughts that you would be better off or of hurting yourself in some way: not at all Total score: 0 Depression Screening Interpretation: Negative Depression Screening Done: Yes 33346 - PHQ-9 Billing: Yes Source: Developed by Drs. Jae Sandoval, Yolanda Ennis, Darnell Matias and colleagues, with an educational chu from [employer]. Thrive Questionnaire Date Thrive assessed: 10/21/24 I am a: Patient What is your living situation today?: I have a steady place to live Within the past 12 months, did the food you bought not last and you didn't have the money to get more?: Never true Within the past 12 months, did you worry whether your food would run out before you got money to buy more?: Never true Do you have trouble paying for medicines?: No Do you have trouble getting transportation to medical appointments?: No Do you have trouble paying your heating and electricity bill?: No Do you have trouble taking care of your child, family member or friend?: No Do you have trouble with day-to-day activities such as bathing, preparing meals, shopping, managing finances, etc.?: No Are you currently unemployed and looking for a job?: No Are you interested in more education?: No Please select the resources that you would like help with: None Currently or been in a relationship where the following occur: No concerns reported THRIVE Score: 0 AUDIT C Alcohol Use Questionnaire (AUDIT-C) 1. How often do you have a drink containing alcohol?: Never 3. How often do you have six or more drinks on one occasion?: Never Total Score: 0 BRADY-7 AMB Questionnaire BRADY-7 Date BRADY - 7 assessed: 10/21/24 Feeling nervous, anxious, or on edge: 0 = Not at all Not being able to stop or control worryin = Not at all Worrying too much about different things: 0 = Not at all Trouble relaxin = Not at all Being so restless that it is hard to sit still: 0 = Not at all Becoming easily annoyed or irritable: 0 = Not at all Feeling afraid as if something awful might happen: 0 = Not at all Total BRADY-7 score (0-4 normal; 5-9 mild; 10-14 moderate; 15-21 severe): 0 Source: Developed by Drs. Jae Sandoval, Yolanda Ennis, Darnell Matias and colleagues, with an educational chu from [employer]. BRADY-7 Assessment Billing BRADY-7 Assessment Tool: BRADY-7 Assessment 64303 Review of Systems Const All systems reviewed & are unremarkable except as noted in HPI and below Eyes Reports no additional complaints Card Reports no additional complaints Resp Reports no additional complaints GI Reports no additional complaints Reports no additional complaints Physical exam (Primary Care) Vital Signs: Last Vital Signs Temp 98.5 F 10/21/24 09:44 Pulse 64 10/21/24 09:44 Resp 20 10/21/24 09:44 BP 134/74 10/21/24 09:44 Pulse Ox 98 10/21/24 09:44 Oxygen Delivery Method Room Air 10/21/24 09:44 BMI result Body Mass Index 27.1 Tobacco/Smoking Status: Tobacco use Status Tobacco use date assessed 10/21/24 10/21/24 09:51 Patient Tobacco Use Status Never used Tobacco 10/21/24 09:45 e-Cigarette/Vaping Use Never Used 10/21/24 09:45 PHQ-9: PHQ-9 Score PHQ-9: Total score 0 10/21/24 09:54 Depression Screening Interpretation: Negative Thrive Assessment: Date of Thrive Assessment Date Thrive assessed 10/21/24 10/21/24 09:51 Currently or been in a relationship where the following occur: No concerns reported Const General: no acute distress HENMT Throat: Yes posterior oropharynx normal Neck Neck: Yes no lymphadenopathy and Yes supple Resp Effort & Inspection: normal respiratory effort Auscultation: clear to auscultation bilaterally Cardio Rhythm: regular rhythm Heart sounds: S1 normal heart sound present and S2 normal heart sound present GI Inspection: Yes normal to inspection Palpation (GI): Soft to palpation External Female Exam: lesion (There is erythema and white patches on labia minora) Speculum Exam - Vagina: vagina atrophic Coding Level of Care Code Est Pt Level 4 (03957) Diagnoses Arrhythmia I49.9 Neuropathy G62.9 Lichen sclerosus L90.0 Additional Codes BRADY-7 Assessment Billing - BRADY-7 Assessment Tool: BRADY-7 Assessment 19338 ([id number]) PHQ-9 - 85282 - PHQ-9 Billing: Yes ([id number]) Assessment & Plan Assessment & Plan (1) Arrhythmia: Code(s): I49.9 - Cardiac arrhythmia, unspecified Category: Medical Plan: EKG showed normal sinus rhythm no ST-T changes right bundle branch block unchanged from previous EKG. We will obtain 3 day Holter and echocardiogram patient will have blood work today (2) Neuropathy: Code(s): G62.9 - Polyneuropathy, unspecified Category: Medical Plan: Check vitamin B12 level referred patient to physical therapy for difficulty with the balance (3) Lichen sclerosus: Code(s): L90.0 - Lichen sclerosus et atrophicus Category: Medical Plan: Try clobetasol cream twice a day for the 1st 2 weeks and then twice a week. If the symptoms persist patient will be referred to lute packer or applier Orders: Orders Immunoglobulins,IgG IgA IgM Today R77.9 - Abnormality of plasma protein, unspecified Vitamin B1 Today R77.9 - Abnormality of plasma protein, unspecified ECG 3 day holter monitor Today I49.9 - Cardiac arrhythmia, unspecified AMB EKG-In Office Today I10 - Essential (primary) hypertension, I49.9 - Cardiac arrhythmia, unspecified, R00.1 - Bradycardia, unspecified, R26.89 - Other abnormalities of gait and mobility Immunofixation Pnl, Serum Today R77.9 - Abnormality of plasma protein, unspecified Immunofixation, Random Urine Today R77.9 - Abnormality of plasma protein, unspecified Vitamin B12 and Folate Today G62.9 - Polyneuropathy, unspecified, R77.9 - Abnormality of plasma protein, unspecified CA echo transthoracic complete Today I49.9 - Cardiac arrhythmia, unspecified PT Evaluation and Treatment Today G62.9 - Polyneuropathy, unspecified, R26.89 - Other abnormalities of gait and mobility Medications: New clobetasol 0.05% apply to affected area bid for 2 weeks then twice a week 1 appl topical BID 45 grams 0RF
== END 2024-10-21 10:25 | disposition home or self-care (01) ==
PROVIDERS: PCP Internal Medicine; Visit Provider Internal Medicine
DX: I49.9 Cardiac arrhythmia, unspecified (principal); G62.9 Polyneuropathy, unspecified; L90.0 Lichen sclerosus et atrophicus

== ENCOUNTER 2024-10-21 09:32 | Outpatient (REF) | payer MEDICARE, OTHER, SELFPAY ==
[2024-10-21 14:24] LABS: Folate 9.5 ng/mL (> or = 4.0); Vitamin B12 256 pg/mL (200-900)
[2024-10-24 11:43] LABS: IgA 63 mg/dL (70-320); IgG 3634 mg/dL (600-1540); IgM 21 mg/dL (50-300)
[2024-10-27 05:48] LABS: Vitamin B1 8 nmol/L (8-30)
== END 2024-10-21 09:33 | disposition home or self-care (01) ==
LOC: HO.HMGCLDS 09:32
PROVIDERS: PCP Internal Medicine; Visit Provider Internal Medicine
DX: I49.9 Cardiac arrhythmia, unspecified (principal); G62.9 Polyneuropathy, unspecified; L90.0 Lichen sclerosus et atrophicus; R77.9 Abnormality of plasma protein, unspecified; R26.89 Other abnormalities of gait and mobility; I10 Essential (primary) hypertension; E78.5 Hyperlipidemia, unspecified
CPT/HCPCS: 82607; 82746; 82784; 84425; 86334; 86335; 96127; 99212

== ENCOUNTER 2024-10-24 09:59 | Outpatient (RCR) | payer MEDICARE, OTHER, SELFPAY ==
--- NOTE | 2024-10-24 10:51 | MHC.PT.EP ---
[facility] [place] [facility] [place] [facility] [place] [facility] [address] [phone] F: [phone] F: [phone] F: [phone] F: [phone] Physical Therapy Plan of Care Date of Evaluation: 10/24/24 Date of Surgery: n/a Diagnosis: abnormalities of gait and balance Assessment: Patient is a 83 female presenting to PT with problems with balance and gait. Pt reports onset began due to insidious onset. She presents today with impairments in balance, gait mechanics, LE strength. Pt's current occupation is retired, with baseline physical activities including ADLs, ambulating, stair negotiation. 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 Clinical presentation today is most consistent with signs and sx associated with balance and gait and pt will benefit from skilled PT 2 week x 4 weeks to address the following problems and impairments noted upon evaluation: balance, gait mechanics, LE strength. These problems limit the patient with the following functional activities: ADLs, ambulating, stair negotiation. The prescribed treatment plan of care is medically necessary. Co-morbidities of polyneuropathy, hx breast cancer were identified and taken into considerations of plan of care. Pt was educated on HEP, role of PT, prognosis, POC. Frequency and Duration: The patient will be seen 2 x week x 4 weeks Short Term Goals: Pt will demonstrate improved LE strength by 1/3 grade in 2 weeks. 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 Chcf Goals: Pt will demonstrate improved DGI score by 3 points in 4 weeks for decreased risk of falls. Pt will demonstrate improved TUG score by 2 seconds in 4 weeks for decreased risk of falls. Treatment Plan: Modalities to reduce pain, spasms and effusion. Manual therapy to restore motion and function. Therapeutic exercise to improve strength and flexibility. Neuromuscular re-education for posture and balance. Therapeutic activities to return to functional activities of daily living. Electronically signed by: Rhiannon Espinosa, PT, DPT, ATC Please sign and return to therapist. Thank you for your referral.
--- NOTE | 2024-11-27 10:44 | MHC.PT.DC ---
[facility] [place] Office [place] [facility] [place] Office [address] [facility] [phone] F: [phone] F: [phone] F: [phone] F: [phone] Physical Therapy Discharge Report Diagnosis: abnormalities of gait and balance Date of Surgery: n/a Date of Evaluation: 10/24/24 Date of Discharge: 11/27/24 Treatments to Date: 1 Cancellations to Date: 6 No Shows to Date: 1 Discharge Status: Patient Elected to Stop Discharge Summary: Pt cancelled all appointments since the eval so therefore to be d/c. Electronically signed by: Rhiannon Espinosa, PT, DPT, ATC Please sign and return to therapist. Thank you for your referral.
== END 2024-11-27 10:44 | disposition home or self-care (01) ==
LOC: HO.PTCHIC 09:59
PROVIDERS: PCP Internal Medicine; Visit Provider Internal Medicine
DX: R26.89 Other abnormalities of gait and mobility (principal); G62.9 Polyneuropathy, unspecified
CPT/HCPCS: 97161

== ENCOUNTER → 2024-10-29 07:55 | Outpatient (REF) | payer MEDICARE, OTHER, SELFPAY ==
--- NOTE | 2024-10-29 08:00 | CA_ITS ---
Transthoracic Echocardiogram Patient (Last, First, Middle): Yesenia Fisher A Gender: Female Date of : 1940 Age: 83 Procedure Date: 10/29/2024 Procedure Type: Transthoracic Echocardiogram Location: OP Height: 167.64 cm Weight: 76.2 kg BSA: 1.86 m2 Heart Rate: 66 bpm BP: 134 / 74 mmHg Or Rn: SB Referring MD: Krista Allen MD Engineer Steam: South Zepeda MD Symptoms: I49.9 - Cardiac arrhythmia, unspecified Study Quality: Adequate ECG Rhythm: Sinus Conclusions: - 1. Normal LV ejection fraction of 65-70% with restrictive filling pattern with elevated left ventricular end-diastolic pressure 2. Mildly dilated left atrium 3. Mild aortic and mitral regurgitation noted 4. Upper limits of normal RV systolic pressure 5. Mildly dilated ascending aorta at 3.9 cm 6. No gross pericardial effusion Findings Left Ventricle Normal left ventricular size, thickness, and systolic function. The visually estimated ejection fraction is between 65-70%. Spectral Doppler is indicative of a restrictive filling pattern. Elevated left ventricular end diastolic pressure. Right Ventricle Normal right ventricular cavity size and systolic function. Atria The left atrium is mildly dilated. There is no evidence of interatrial shunt. The right atrium is mildly dilated. Aortic Valve There is mild calcification of the aortic valve. There is no aortic valve stenosis. There is mild aortic valve regurgitation. Mitral Valve There is mild anterior and posterior mitral leaflet thickening. There is mild mitral annular calcification. There is mild mitral valve regurgitation. There is no mitral valve stenosis. Pulmonic Valve The pulmonic valve is likely normal. Tricuspid Valve Normal tricuspid valve structure. There is mild tricuspid valve regurgitation. The right ventricular systolic pressure is normal. There is no evidence of pulmonary hypertension. Great Vessels The pulmonary artery was not well visualized. There is mild dilatation of the ascending aorta measuring 3.90 cm. Venous The inferior vena cava is normal in size and collapses greater than 50% with inspiration. Pericardium/Pleural There is no evidence of pericardial effusion. Prior Study Comparison No significant change compared to prior study dated: 05/31/2018. Measurements 2D Linear Measurements IVSd: 1.39 0.6-0.9/0.6-1.0 cm LVIDd: 4.61 3.9-5.3/4.2-5.9 cm LVIDd Index: 2.48 2.4-3.2/2.2-3.1 cm/m2 LVIDs: 3.04 2.0-3.6 cm LVPWd: 0.56 0.7-1.1 cm LA Diam: 4.40 2.7-3.8/3.0-4.0 cm LAIDs Index: 2.37 1.5-2.3 cm/m2 LV Mass: 191.30 67-162/88-224 g LV Mass Index: 102.85 43-95/49-115 g/m2 LVOT Diam: 2.30 3.0+(-)1.3 cm 2D Systolic Function EF 4C: 63.30 >55% EF 2C: 68.30 >55% EF BiP: 66.20 >55% Mitral Valve MV Pk E: 1.15 MV PK A: 0.52 MV Decel Time: 144.00 E/A: 2.20 E'Lateral: 6.96 E'Medial: 4.13 E/E' Med: 27.80 E/E' Lat: 16.50 PHT: 42.00 MVA PHT: 5.24 Decel [place]: 7.98 Aortic Valve AoV Pk Ishan: 1.57 AoV Pk Grad: 10.00 MABEL: 3.12 AI Pk Ishan: 4.28 AI [place]: 2.32 LVOT LVOT Pk Ishan: 1.17 LVOT Mn Ishan: 0.73 LVOT VTI: 0.25 LVOT Pk Grad: 5.00 LVOT Mn Grad: 3.00 LVOT Diam: 2.30 LVOT Area: 4.15 Diastolic Function MV Pk E: 1.15 MV Pk A: 0.52 E/A: 2.20 E'Medial: 4.13 E/E' Med: 27.80 E' Laterial: 6.96 E/E' Lat: 16.50 Right Ventricle TAPSE (mm): 28.20 TVS' Ishan: 15.20 Tricuspid Valve TR Pk Ishan: 3.00 TR Pk Grad: 36.00 RA Press: 3.00 RVSP: 39.00 Great Vessels Aorta Sinus of Valsalva: 3.20 2.0-3.5 cm Ao Asc: 3.90 2.1-3.4 cm Pulmonary Veins Pulm Vein S/D 0.70 Pulmonary Valve PV Pk Ishan: 0.78 Peak PV Grad: 2.00 Updated in Other Vendor System with Status of Final South Zepeda MD electronically signed on 10/29/2024 5:10:12 PM with status of Final
== END ==
LOC: HO.CARD 07:55
PROVIDERS: PCP Internal Medicine; Visit Provider Internal Medicine
DX: I48.91 Unspecified atrial fibrillation (principal); I49.9 Cardiac arrhythmia, unspecified
CPT/HCPCS: 93242; 93306

== ENCOUNTER → 2024-10-29 08:00 | Outpatient (BNV) | payer MEDICARE, OTHER, SELFPAY | PROVIDERS: PCP Internal Medicine; Visit Provider Internal Medicine Cardiovascular Disease | DX: I47.10 Supraventricular tachycardia, unspecified (principal) | CPT/HCPCS: 93244 ==

== ENCOUNTER 2024-11-16 20:22 | Inpatient (IN) | payer MEDICARE, OTHER, SELFPAY ==
[2024-11-16] VITALS (11 sets, daily range): BP systolic 138–180; BP diastolic 85–110; PULSE 124–137; RESP 16–20; TEMP 36.9; O2SAT 93–95; BMI 28.4
--- NOTE | 2024-11-16 | ECG_ITS ---
Test Reason : TACHYCARDIA Blood Pressure : */* mmHG Vent. Rate : 134 BPM Atrial Rate : 134 BPM P-R Int : 170 ms QRS Dur : 124 ms QT Int : 292 ms P-R-T Axes : -29 -7 -34 degrees QTcB Int : 436 ms Atrial fibrillation with rapid ventricular response Right bundle branch block Abnormal ECG When compared with ECG of 06-Oct-2004 10:56, Atrial fibrillation with rapid ventricular response has replaced Normal sinus rhythm Vent. rate has increased by [address] now depressed in Anterior leads Referred By: Generic ED Physician Electronically Signed By: BINDU ALVA MD
--- NOTE | 2024-11-16 | ECG_ITS ---
Test Reason : TACHYCARDIA Blood Pressure : */* mmHG Vent. Rate : 113 BPM Atrial Rate : * BPM P-R Int : * ms QRS Dur : 118 ms QT Int : 366 ms P-R-T Axes : * -7 -30 degrees QTcB Int : 502 ms Atrial fibrillation with rapid ventricular response Right bundle branch block T wave abnormality, consider inferior ischemia Abnormal ECG When compared with ECG of 16-Nov-2024 23:46, No significant change was found Referred By: Issa Torre Electronically Signed By: BINDU ALVA MD
--- NOTE | ~2024-11-16 | XR_ITS ---
CLINICAL HISTORY: Tachycardia 1 view chest x-ray. Comparison: None Findings: The lungs appear clear. There is no consolidation, effusion, or pneumothorax. The cardiac silhouette appears mildly enlarged. IMPRESSION: No acute cardiopulmonary abnormality. This document has been electronically signed by: Milo Veras MD on 11/17/2024 00:32:14
[2024-11-16 20:41] LABS: MANUAL DIFF FLAG NO
--- NOTE | 2024-11-16 20:44 | PC.NURSE ---
Patient arrived via [facility] for palpitations and elevated BP that began at 6:30pm today. Patient took home/prescribed BP medications. EKG and labs obtained. Bilateral 18g IV accesses established in AC. Right AC established by EMS prior to arrival, left AC established by Ana Cartagena RN. Awaiting results. Dr. Lundberg to evaluate the patient. Patient denies SOB or chest pain at this time. Care ongoing by this RN. Placed on part time flexible clerk continuously.
[2024-11-16 20:48] LABS: Basophils Percent Auto 0.4 % (0-2); Eosinophils Absolute Auto 0.3 X10*3/uL (0.0-0.4); Eosinophils Percent Auto 3.9 % (0-4); Hematocrit 40.9 % (37.0-47.0); Hemoglobin 13.7 g/dl (12.0-16.0); Imm Gran Abs Auto 0.01 X10*3/uL (0.00-0.03); Imm Gran Pct Auto 0.1 % (0.0-0.4); Lymphocytes Absolute Auto 3.1 X10*3/uL (1.2-4.9); Lymphocytes Percent Auto 40.7 % (20-40); Mean Corpuscular HGB Conc 33.5 g/dl (31.0-35.0); Mean Corpuscular Hemoglobin 30.4 pg (27.0-33.0); Mean Corpuscular Volume 90.7 fL (80.0-98.0); Mean Platelet Volume 10.3 fL (9.4-12.3); Monocytes Absolute Auto 0.9 X10*3/uL (0.1-1.2); Monocytes Percent Auto 11.3 % (2-11); Neutrophils Absolute Auto 3.3 x10*3/uL (2.0-8.3); Neutrophils Percent Auto 43.6 % (45-73); Platelet Count 238 X10*3/uL (160-400); Red Blood Count 4.51 X10*6/uL (4.20-5.50); Red Cell Distribution Width 13.2 % (11.0-16.0); White Blood Count 7.6 X10*3/uL (4.8-10.8)
[2024-11-16 20:52] LABS: Prothrombin Time 11.7 SEC (10.9-12.4)
[2024-11-16 20:56] LABS: Anion Gap 11 (12-20); Blood Urea Nitrogen 18 mg/dL (9-16); Calcium 10.1 mg/dL (8.4-10.2); Carbon Dioxide 26 mmol/L (22-29); Chloride 101 mmol/L (96-108); Creatinine Clr Calc Pharmacy 52.5; Estimated Glomerular Filt Rate > 60; Glucose Random 127 mg/dL (60-115); Potassium 3.7 mmol/L (3.3-5.1); Sodium 134 mmol/L (135-145)
[2024-11-16 21:04] LABS: Troponin-I High Sensitivity 3.9 ng/L (<3.5-17.0)
--- NOTE | 2024-11-16 21:11 | ED_ITS ---
HPI - Arrhythmia/Palpitations General Chief Complaint: Arrhythmia/Palpitations Stated Complaint: heart racing, back pain Time Seen by Provider: 11/16/24 20:57 Source: patient, EMS and old records reviewed Mode of arrival: EMS Limitations: no limitations History of Present Illness ED Provider: DR. Lundberg HPI narrative: 83-year-old female came in by EMS for evaluation of feeling palpitation and fast heartbeats. Patient started to feel palpitation 1 hour before coming to the hospital, patient had similar previous episodes of palpitation and sinus tachycardia in the past was seen by her PCP will referred her to a inspector machine parts have 3 days Holter monitor which shows no abnormal rhythm or tachyarrhythmia, patient seemed to think that dehydration precipitated her symptoms , patient stated that she did not drink enough fluids today. Patient otherwise has no CP, no SOB, no recent travel, no lower extremity swelling or tenderness. Patient taking lisinopril /atenolol at home. Related Data Previous Rx's ?Medication ?Instructions ?Recorded lisinopril 20 mg tablet 20 mg PO BID #180 tabs 07/01/24 atenolol 25 mg tablet 37.5 mg (1.5 x 25 mg) PO DAILY 08/19/24 #135 tabs lorazepam 0.5 mg tablet 0.5 mg PO BEDTIME PRN anxiety #30 09/25/24 tabs simvastatin 20 mg tablet 20 mg PO DAILY #90 tabs 09/25/24 clobetasol 0.05 % topical ointment 1 appl topical BID #45 grams 10/21/24 Allergies Allergy/AdvReac Type Severity Reaction Status Date / Time hydralazine Allergy Unknown Verified 11/16/24 20:33 pantoprazole Allergy Unknown Verified 11/16/24 20:33 hydrochlorothiazide AdvReac Intermediate Palpitation Verified 10/21/24 09:47 s amlodipine AdvReac DIZZINESS Verified 10/21/24 09:47 sotalol AdvReac Palpitation Verified 10/21/24 09:47 s Review of Systems 2 Review of Systems: All other systems are reviewed and are negative Constitutional: Reports as per HPI and Reports no additional constitutional complaints Eyes: Reports as per HPI and Reports no additional eye complaints Reports system reviewed and no additional complaints, except as documented Cardiovascular: Reports as per HPI and Reports no additional cardiovascular complaints Respiratory: Reports as per HPI and Reports no additional respiratory complaints Gastrointestinal: Reports as per HPI and Reports no additional gastrointestinal complaints Genitourinary: Reports no additional female genitourinary complaints Musculoskeletal: Reports no additional musculoskeletal complaints Skin/Breast: Reports system reviewed and no additional complaints, except as docu Psychiatric: Reports no additional psychiatric complaints Endocrine: Reports no additional endocrine complaints Hematologic/Lymphatic: Reports no additional hematologic/lymphatic complaints Allergic/Immunologic: Reports no additional allergic/immunologic complaints Reports system reviewed and no additional complaints, except as documented and Reports Abnormal speech present [facility] Past Medical History Medical History Dysuria Impacted cerumen of both ears Bradycardia Dysplastic nevus Hyperglycemia Vitamin D deficiency Annual physical exam Palpitations Arrhythmia Leukoplakia of tongue Tachycardia Hyperlipidemia Peripheral neuropathy Hypertension Surgical History H/O mastectomy H/O colonoscopy Family History Family History Father No problems noted. Mother No problems noted. Son Diabetes Social History Social History Household Members Other:: lives alone, independent, daughter lives close Housing: House Alcohol intake: never Patient Tobacco Use Status: Never used Tobacco Smoked in Last 30 Days: No e-Cigarette/Vaping Use: Never Used Second Hand Smoke Exposure: No Advance Directives: No Advance Directives Information Provided: Yes service: No Current occupational status: retired Cognitive needs: No Hearing needs: No Vision needs: Yes Physical Exam 2 Vital Signs: Vital Signs: Last Vital Signs Temp 98.4 F 11/16/24 20:28 Pulse 112 H 11/17/24 00:06 Resp 20 11/16/24 22:29 BP 121/79 11/17/24 00:06 Pulse Ox 93 11/16/24 22:29 O2 Del Method Room Air 11/16/24 22:29 BMI result Body Mass Index 28.4 Vital signs have been reviewed and appear to be correct. Blood pressure elevated. Heart rate normal. Respiratory rate normal. Temperature normal. Oxygen saturation normal. Appearance: Alert. Oriented X3. No acute distress. Head: Normal external exam. Normocephalic. Atraumatic. No Ojeda signs noted. No raccoon eyes noted Eyes: PERRLA. EOMI. Conjunctiva and sclera normal. Eyelids normal. ENT: TM's Normal. Pharynx normal. Uvula midline. Moist mucous membranes. No trismus noted. No drooling noted. No muffled voice noted. Neck: Normal inspection. Neck supple. FROM. No adenopathy. Thyroid Normal. No meningeal signs. No neck mass noted. CVS: Normal heart rate and rhythm. Heart sound normal. No murmurs noted. Pulses normal throughout. Respiratory: No respiratory distress. Painless inspiration. Breath sounds normal. No wheezes/rales/rhonchi noted. Chest nontender. No accessory muscle usage noted or decreased air movement noted. Abdomen: Soft and nontender. Bowel sounds normal in all 4 quadrants. No distention noted. No organomegaly noted. No visible injury noted. Back: No CVA tenderness. Full range of motion noted. Skin: Skin warm and dry. Normal skin color. Normal skin turgor. No rashes/lesions/lacerations noted. Extremities: No lower extremity edema. Extremities exhibit normal range of motion. Extremities nontender. Neuro: Oriented X 3. Cranial nerve exam: II-XII are grossly intact No motor deficit. No sensory deficit. Reflexes normal. Course Reevaluation(s) Reevaluation #1: sinus tachycardia initially 140s/m after receiving IV fluids and 1 dose of metoprolol IV heart rate is ranging from 90s to 120s. Patient still remained asymptomatic. Cardiac workup is unremarkable, will admit the patient for further rate control. Time: 23:22 Reevaluation #2: repeat EKG with possible rapid AFib, consider another dose of beta-negrito. Time: 23:51 Medications Administered Discontinued Medications Generic Name Dose Route Start Last Admin Trade Name Freq PRN Reason Stop Dose Admin Sodium Chloride 1,000 mls @ 999 mls/hr 11/16/24 21:50 11/16/24 23:25 Ns IV 11/16/24 22:50 Infused .Q1H1M ONE Infusion Metoprolol Tartrate 25 mg 11/16/24 21:50 11/16/24 22:04 Metoprolol Tartrate 25 Mg Tablet PO 11/16/24 21:51 25 mg ONCE ONE Administration Protocol Metoprolol Tartrate 5 mg 11/16/24 23:12 11/16/24 23:42 Metoprolol Tartrate 5 Mg/5 Ml Vial IVPUSH 11/16/24 23:13 5 mg ONCE STA Administration Protocol Metoprolol Tartrate 5 mg 11/16/24 23:53 11/17/24 00:06 Metoprolol Tartrate 5 Mg/5 Ml Vial IVPUSH 11/16/24 23:54 5 mg ONCE STA Administration Protocol Morphine Sulfate 1 mg 11/16/24 21:50 11/16/24 22:03 Morphine Sulfate 2 Mg/Ml Cartridge IVPUSH 11/16/24 21:51 1 mg ONCE ONE Administration Protocol Medical Decision Making Differential Diagnosis Differential Diagnoses: The differential diagnosis associated with the presentation includes ( Dysrhythmia, rapid atrial fibrillation, sinus tachycardia, thyroid disease, dehydration, electrolyte derangement, severe anemia, ACS.) Admission/Observation Consideration of admission/observation: Escalation of care including admission/observation considered Consult Healthcare Provider Management of the patient was discussed with: Hospitalist ( Dr. Torre) Lab Data MDM Lab Attestation statement: I reviewed the patient's lab results. 11/16/24 20:35 11/16/24 20:35 Labs: Lab Results 11/16/24 11/16/24 Range/Units 20:35 20:52 WBC 7.6 (4.8-10.8) X10*3/uL RBC 4.51 (4.20-5.50) X10*6/uL Hgb 13.7 (12.0-16.0) g/dl Hct 40.9 (37.0-47.0) % MCV 90.7 (80.0-98.0) fL MCH 30.4 (27.0-33.0) pg MCHC 33.5 (31.0-35.0) g/dl RDW 13.2 (11.0-16.0) % Plt Count 238 (160-400) X10*3/uL MPV 10.3 (9.4-12.3) fL Immature Gran % (Auto) 0.1 (0.0-0.4) % Neut % (Auto) 43.6 L (45-73) % Lymph % (Auto) 40.7 H (20-40) % [place] % (Auto) 11.3 H (2-11) % Eos % (Auto) 3.9 (0-4) % Baso % (Auto) 0.4 (0-2) % Lymph # (Auto) 3.1 (1.2-4.9) X10*3/uL [place] # (Auto) 0.9 (0.1-1.2) X10*3/uL Eos # (Auto) 0.3 (0.0-0.4) X10*3/uL Baso # (Auto) 0.0 (0.0-0.2) X10*3/uL Abs Immat Gran (auto) 0.01 (0.00-0.03) X10*3/uL Absolute Neuts (auto) 3.3 (2.0-8.3) x10*3/uL Absolute Nucleated RBC 0.000 (0.0-0.012) X10*3/uL Nucleated RBC % (auto) 0.0 (0.0-0.2) /100WBC PT 11.7 (10.9-12.4) SEC INR 1.0 (0.9-1.1) D-Dimer High Sensitivty 200 NG/ML Sodium 134 L (135-145) mmol/L Potassium 3.7 (3.3-5.1) mmol/L Chloride 101 (96-108) mmol/L Carbon Dioxide 26 (22-29) mmol/L Anion Gap 11 L (12-20) BUN 18 H (9-16) mg/dL Creatinine 0.85 (0.5-1.4) mg/dL Estim Creat Clear Calc 52.5 Estimated GFR > 60 Random Glucose 127 H (60-115) mg/dL Calcium 10.1 (8.4-10.2) mg/dL Troponin I High Sens 3.9 (<3.5-17.0) ng/L TSH 1.42 (0.32-4.0) uIU/mL Urine Color Yellow Urine Appearance Clear Urine pH 7.0 (5.0-9.0) Ur Specific [place] <= 1.005 (1.005-1.025) Urine Protein 100 (2+) H (Neg-Trace) mg/dL Urine Glucose (UA) Negative (Negative) mg/dL Urine Ketones Negative (Negative) mg/dL Urine Blood Trace H (Negative) Urine Nitrite Negative (Negative) Ur Leukocyte Esterase Negative (Negative) Urine RBC 0-2 (0-2) /HPF Urine WBC 0-5 (0-5) /HPF Ur Squamous Epith Cells 0-2 (0-2) /HPF Urine Bacteria None Seen (None Seen) Hyaline Casts 0-2 (0-2) /LPF Independent Interpretation I performed an independent interpretation of an: EKG ( sinus tachycardia at 134 bpm, RBBB,, when EKG compared with previous EKG RBBB is old.) and Plain X-Ray ( chest: No acute cardiopulmonary disease.) Radiology Impression Discussion of test interpretation with radiology: I have reviewed the radiologist's reading. Discharge Plan Discharge Clinical Impression: Palpitations, Tachycardia, Atrial fibrillation with RVR Patient Disposition: Admitted As Inpatient
[2024-11-16 21:12] LABS: D Dimer High Sensitivity 200 NG/ML
[2024-11-16 21:15] LABS: Appearance Urine Clear; Color Urine Yellow; Glucose Urine UA Negative (Negative); Leukocyte Esterase Urine Negative (Negative); Nitrite Urine Negative (Negative); Specific Gravity - Urine <= 1.005 (1.005-1.025); UMIC TRIGGER UACC YES; Urine Blood Trace (Negative); Urine Ketones Negative (Negative); Urine Protein 100 (2+) mg/dL (Neg-Trace)
--- NOTE | 2024-11-16 21:15 | PC.NURSE ---
to bedside for evaluation. Plan to continue NS 500mL infusion (was initiated by EMS) and monitor at this time.
[2024-11-16 21:21] LABS: Bacteria Urine None Seen (None Seen); Hyaline Casts Urine 0-2 /LPF (0-2); RBC Urine 0-2 /HPF (0-2); Squamous Epithelial Cell Urine 0-2 /HPF (0-2); WBC Urine 0-5 /HPF (0-5)
[2024-11-16 21:47] LABS: Thyroid Stimulating Hormone 1.42 uIU/mL (0.32-4.0)
[2024-11-16] MEDS: Morphine Sulfate 2 MG/ML CARTRIDGE 1 MG IVPUSH (22:03)
[2024-11-16] MEDS: Metoprolol Tartrate 25 MG TABLET PO (22:04)
[2024-11-16] MEDS: 0.9 % Sodium Chloride 1,000 ML 999 ML IV (22:05)
[2024-11-16] MEDS: Metoprolol Tartrate 5 MG/5 ML VIAL IVPUSH (23:42)
[2024-11-17] VITALS (10 sets, daily range): BP systolic 108–158; BP diastolic 58–88; PULSE 55–135; RESP 14–20; TEMP 36.2–36.8; O2SAT 95–100; BMI 27.4
[2024-11-17] MEDS: Metoprolol Tartrate 5 MG/5 ML VIAL IVPUSH (00:06)
--- NOTE | 2024-11-17 00:10 | P.HPHOSP_ITS ---
History of Present Illness Date of Service: 11/17/24 Attending physician on admission: Issa Torre Chief Complaint: palpitations, HTN Pt is an 83 yo f with a pmhx significant for HTN and HLD, who presented to the ED due to HTN and palpitations at home. She states that she did not hydrate well throughout the day because she was busy and not at home. She denies headaches, chest pain, SOB, abd pain, nausea, vomtiing, diarrhea, or LE edema. She states she feels well and has no current complaints. No recent illness. She has had a recent cardiac w/u including an echo and holter monitor which were normal. She reports a hx of a fib but then was told she does not have a fib. She has taken her home BP meds, atenolol and lisinopril as normal today. Review of Systems 2 Constitutional: Constitutional: Denies body ache(s), Denies chills, Denies fatigue, Denies fever(s) and Denies headache(s) Eyes: Eyes: Denies change in vision and Denies photophobia ENT: Denies headache(s), Denies nasal congestion, Denies nasal discharge and Denies sore throat Cardiovascular: Cardiovascular: Denies chest pain, Denies syncope, Reports rapid heart rate, Denies leg edema, Denies lightheadedness and Denies dyspnea Respiratory: Respiratory: Denies chest congestion, Denies cough, Denies dyspnea and Denies wheezing Gastrointestinal: Gastrointestinal: Denies diarrhea, Denies nausea and Denies vomiting Genitourinary: Genitourinary: Denies hematuria, Denies dysuria and Denies urinary urgency Musculoskeletal: Musculoskeletal: Reports back pain (chronic) and Denies myalgias Integumentary/Breasts: Skin/Breast: Denies rash Neurologic: Denies confusion, Denies syncope and Denies headache(s) Psychiatric: Psychiatric: Denies confusion Endocrine: Endocrine: Denies fatigue Hematologic/Lymphatic: Hematologic/Lymphatic: Denies easy bleeding and Denies easy bruising Allergic/Immunologic: Allergic/Immunologic: Denies wheezing [facility] Medical History Dysuria Impacted cerumen of both ears Bradycardia Dysplastic nevus Hyperglycemia Vitamin D deficiency Annual physical exam Palpitations Arrhythmia Leukoplakia of tongue Tachycardia Hyperlipidemia Peripheral neuropathy Hypertension Functional capacity: independent ambulation Family History Father No problems noted. Mother No problems noted. Son Diabetes Surgical History H/O mastectomy H/O colonoscopy Social History Household Members Other:: lives alone, independent, daughter lives close Housing: House Alcohol intake: never Patient Tobacco Use Status: Never used Tobacco Smoked in Last 30 Days: No e-Cigarette/Vaping Use: Never Used Second Hand Smoke Exposure: No Advance Directives: No Advance Directives Information Provided: Yes service: No Current occupational status: retired Cognitive needs: No Hearing needs: No Vision needs: Yes Narrative: no smoking, etoh or drug use Meds Allergies Allergy/AdvReac Type Severity Reaction Status Date / Time hydralazine Allergy Unknown Verified 11/16/24 20:33 pantoprazole Allergy Unknown Verified 11/16/24 20:33 hydrochlorothiazide AdvReac Intermediate Palpitation Verified 10/21/24 09:47 s amlodipine AdvReac DIZZINESS Verified 10/21/24 09:47 sotalol AdvReac Palpitation Verified 10/21/24 09:47 s Physical Exam 2 Vital Signs and Narrative: Vital Signs: Last Vital Signs Temp 98.4 F 11/16/24 20:28 Pulse 112 H 11/17/24 00:06 Resp 20 11/16/24 22:29 BP 121/79 11/17/24 00:06 Pulse Ox 93 11/16/24 22:29 O2 Del Method Room Air 11/16/24 22:29 BMI result Body Mass Index 28.4 General: AOx3, no acute distress Resp: CTA bilaterally CVS: S1, S2, tachy, irregularly irregular GI: +BS, NT, no distention Skin: Warm, dry Neuro: Cranial nerves II-XII grossly intact bilaterally. Motor grossly intact bilaterally Extremities: No LE edema Psych: Appropriate affect Const: General: No confusion Orientation/consciousness: No confusion Eyes: Direct Ophthalmoscopy: No photophobia Neuro: General: No confusion Results Labs 11/17/24 04:14 11/17/24 04:14 Labs: Laboratory Results - last 24 hr 11/16/24 11/16/24 20:35 20:52 MCV 90.7 MCH 30.4 MCHC 33.5 RDW 13.2 Plt Count 238 MPV 10.3 Immature Gran % (Auto) 0.1 Neut % (Auto) 43.6 L Lymph % (Auto) 40.7 H [place] % (Auto) 11.3 H Eos % (Auto) 3.9 Baso % (Auto) 0.4 Lymph # (Auto) 3.1 [place] # (Auto) 0.9 Eos # (Auto) 0.3 Baso # (Auto) 0.0 Abs Immat Gran (auto) 0.01 Absolute Neuts (auto) 3.3 Absolute Nucleated RBC 0.000 Nucleated RBC % (auto) 0.0 PT 11.7 INR 1.0 D-Dimer High Sensitivty 200 Anion Gap 11 L Estim Creat Clear Calc 52.5 Estimated GFR > 60 Random Glucose 127 H Calcium 10.1 TSH 1.42 Urine Color Yellow Urine Appearance Clear Urine pH 7.0 Ur Specific [place] <= 1.005 Urine Protein 100 (2+) H Urine Glucose (UA) Negative Urine Ketones Negative Urine Blood Trace H Urine Nitrite Negative Ur Leukocyte Esterase Negative Urine RBC 0-2 Urine WBC 0-5 Ur Squamous Epith Cells 0-2 Urine Bacteria None Seen Hyaline Casts 0-2 Assessment and Plan (1) Atrial fibrillation with RVR: Status: Acute (2) Hyponatremia: Status: Acute Plan Pt is an 83 yo f with a pmhx significant for HTN and HLD, who presented to the ED due to HTN and palpitations at home. a fib with RVR - EKG initially with sinus tachycardia with premature supraventricular complexes, repeat EKG with with a fib with RVR - given PO metoprolol 25mg initially, then metoprolol 5mg IV x2, HR improved - CXR negative - UA negative - CHADS VASc score 4 - start therapeutic lovenox 80mg Q12H - cardiology consult - admit to tele hyponatermia - mild, likely due to dehydration - given 1L NS in ED - monitor BMP HTN - BP elevated initially, improved - continue atenolol and lisinopril HLD - continue statin full code VTE prophy: lovenox Pt with a fib with RVR and poor rate control with multiple attempts, requiring admission for further treatment and cardiac monitoring for at least 2 midnights stay. Quality Stroke Does the patient have a stroke diagnosis?: No VTE Prior VTE?: No VTE Risk Level:: Medical - moderate - high VTE Device Contraindication: Treatment Not Indicated VTE Drug Contraindication: N/A - Med Ordered
--- NOTE | 2024-11-17 00:58 | PC.NURSE ---
PT re-weighed with shoes and blankets off. 77.1kg
[2024-11-17 01:01] LABS: Prothrombin Time 12.2 SEC (10.9-12.4)
[2024-11-17 01:04] LABS: Partial Thromboplastin Time 32.3 SEC (26.0-36.8)
[2024-11-17] MEDS: Enoxaparin Sodium 80 MG/0.8 ML SYRINGE SUBCUT (03:16)
[2024-11-17 04:40] LABS: Hematocrit 37.3 % (37.0-47.0); Hemoglobin 12.5 g/dl (12.0-16.0); Mean Corpuscular HGB Conc 33.5 g/dl (31.0-35.0); Mean Corpuscular Hemoglobin 30.5 pg (27.0-33.0); Mean Platelet Volume 10.2 fL (9.4-12.3); Platelet Count 206 X10*3/uL (160-400); Red Cell Distribution Width 13.2 % (11.0-16.0)
[2024-11-17 04:53] LABS: Anion Gap 10 (12-20); Blood Urea Nitrogen 14 mg/dL (9-16); Calcium 9.3 mg/dL (8.4-10.2); Carbon Dioxide 23 mmol/L (22-29); Chloride 107 mmol/L (96-108); Creatinine Clr Calc Pharmacy 67.5; Estimated Glomerular Filt Rate > 60; Glucose Random 110 mg/dL (60-115); Magnesium 1.8 mg/dL (1.6-2.6); Potassium 3.9 mmol/L (3.3-5.1); Sodium 136 mmol/L (135-145)
[2024-11-17] MEDS: dilTIAZem HCL 125 MG in 0.9 % Sodium Chloride 100 ML IVCONT (06:35)
--- NOTE | 2024-11-17 06:39 | PC.NURSE ---
hr increasing to 135, notified provider. Robert cohen initiated
--- NOTE | 2024-11-17 07:00 | ECG_ITS ---
Test Reason : REPEAT Blood Pressure : */* mmHG Vent. Rate : 117 BPM Atrial Rate : * BPM P-R Int : * ms QRS Dur : 112 ms QT Int : 336 ms P-R-T Axes : * 16 -32 degrees QTcB Int : 468 ms Atrial fibrillation with rapid ventricular response Incomplete right bundle branch block ST & T wave abnormality, consider inferior ischemia ST & T wave abnormality, consider anterior ischemia Abnormal ECG When compared with ECG of 16-Nov-2024 20:35, No significant changes seen Referred By: Nafisa Arauz Electronically Signed By: BINDU ALVA MD
--- NOTE | 2024-11-17 08:33 | PHA.MEDREC ---
Pharmacy Consult ? Medication Reconciliation Pharmacy has completed the medication reconciliation. Spoke with patient to confirm medications. She did not start using clobetasol ointment because she was worried about the side effects. She uses an OTC muscle rub for her back pain as well but she cannot remember the name. She confirmed atenolol is 1 and 1/2 tabs. She took her night time medications yesterday evening.
--- NOTE | 2024-11-17 09:03 | MHC.CM.PN ---
CM met with Patient at bedside, in the ED, and addressed IMM with her; original was given to Patient and a copy will be placed on the chart. Patient lives alone in a house and she required no services nor DME [employer]. Home/self care is Patient's goal and CM has initiated and will follow for dc planning. Patient's Sister or Daughter/HCP/Barbara will transport to home at dc and Dr. José is the PCP.
--- NOTE | 2024-11-17 09:41 | P.CONCA_ITS ---
History of Present Illness History of Present Illness Date of Service: 11/17/24 Requesting physician: Lorena Richmond Consult reason: atrial fibrillation Chief complaint: a fib with RVR Narrative: I was consulted to see Yesenia in cardiology consultation today for new onset atrial fibrillation. She is a pleasant 83-year-old active woman with prior history of hypertension for many years, no history of known atrial fibrillation although she has been having palpitation with some time. I had a month ago she had symptoms of palpitation overnight and had see the primary care physician Dr Allen, at which time she was in normal sinus rhythm at her symptoms have resolved. She subsequently had a Holter monitor mostly isolated PACs with a burden of 1.9% without any evidence of atrial fibrillation, echocardiogram which had shown normal LV ejection fraction with restrictive filling pattern with mildly dilated left atrium without any significant valvular abnormality. She subsequently came in yesterday was in usual state of health around 18:30 yesterday started having heavy pounding in his chest and feeling uncomfortable and subsequently measure blood pressure and noted that her blood pressure is very elevated. She subsequently also took a pulse and noted that her pulse was rapid and irregular and decided to come to the emergency room. When she came into the emergency room she was noted to be in atrial fibrillation rapid ventricular response along with significantly elevated blood pressure. She was then appropriately treated with IV Cardizem drip and currently remains on IV Cardizem drip at 5 milligrams/hour with noted heart rate between 80-120. Her symptoms of palpitation improved. Her blood pressure also significantly improved. She said her blood pressure at home is generally well controlled on her usual regimen of atenolol and lisinopril. She has never had documented episodes of atrial fibrillation although has had palpitation in the past. She was never had any myocardial infarction or coronary artery disease. The prior history of congestive heart failure, diabetes, stroke. She was she was Lovenox yesterday. Review of Systems 2 Constitutional: Constitutional: Reports no additional constitutional complaints Cardiovascular: Cardiovascular: Reports rapid heart rate, Denies pedal edema, Denies leg edema, Reports lightheadedness, Denies Loss of Consciousness, Reports palpitations and Denies dyspnea Respiratory: Respiratory: Reports no additional respiratory complaints and Denies dyspnea Gastrointestinal: Gastrointestinal: Reports no additional gastrointestinal complaints Musculoskeletal: Musculoskeletal: Reports no additional musculoskeletal complaints Integumentary/Breasts: Skin/Breast: Reports system reviewed and no additional complaints, except as docu Neurologic: Reports system reviewed and no additional complaints, except as documented Psychiatric: Psychiatric: Reports no additional psychiatric complaints Endocrine: Endocrine: Reports palpitations PMFSH Past Medical History Medical History Dysuria Impacted cerumen of both ears Bradycardia Dysplastic nevus Hyperglycemia Vitamin D deficiency Annual physical exam Palpitations Arrhythmia Leukoplakia of tongue Tachycardia Hyperlipidemia Peripheral neuropathy Hypertension Family History Family History Father No problems noted. Mother No problems noted. Son Diabetes Surgical History Surgical History H/O mastectomy H/O colonoscopy Social History Social History Household Members: None Household Members Other:: lives alone, independent, daughter lives close Housing: House Do you presently have visiting nurse or other home services: No Alcohol intake: never Patient Tobacco Use Status: Never used Tobacco e-Cigarette/Vaping Use: Never Used Second Hand Smoke Exposure: No service: No Current occupational status: retired Cognitive needs: No Hearing needs: No Vision needs: Yes Meds Allergies Allergy/AdvReac Type Severity Reaction Status Date / Time hydralazine Allergy Unknown Verified 11/16/24 20:33 pantoprazole Allergy Unknown Verified 11/16/24 20:33 hydrochlorothiazide AdvReac Intermediate Palpitation Verified 10/21/24 09:47 s amlodipine AdvReac DIZZINESS Verified 10/21/24 09:47 sotalol AdvReac Palpitation Verified 10/21/24 09:47 s Active Medications: Current Medications Acetaminophen (Acetaminophen 325 Mg Tablet) 975 mg PO Q6H PRN PRN Reason: Pain, Mild 1-3,fever,headache Calcium Carbonate (Calcium Carbonate 750 Mg Tab.Chew) 750 mg PO Q4H PRN PRN Reason: Heartburn Enoxaparin Sodium (Enoxaparin Sodium 80 Mg/0.8 Ml Syringe) 80 mg SUBCUT Q12H [facility] Last Admin: 11/17/24 03:16 Dose: 80 mg Amiodarone HCl 900 mg/ Sodium (Chloride) 518 mls @ 34.533 mls/hr IVCONT .Q15H1M [facility]; Protocol Amiodarone HCl (Nexterone) 150 mg in 100 mls @ 600 mls/hr IV ONCE ONE Stop: 11/17/24 09:48 Magnesium Hydroxide (Milk Of Magnesia 30 Ml Oral.Susp) 30 ml PO DAILY PRN PRN Reason: Constipation Melatonin (Melatonin 3 Mg Tablet) 6 mg PO BEDTIME PRN PRN Reason: Insomnia Sodium Chloride (0.9 % Sodium Chloride Flush 3 Ml Syringe) 3 ml IVFLUSH [facility] Last Admin: 11/17/24 08:05 Dose: Not Given Home Medications ?Medication ?Instructions ?Recorded ?Confirmed ?Last Taken ?Type acetaminophen 500 mg tablet 1,000 mg PO BID PRN Back Pain 11/17/24 11/17/24 Unknown History aspirin 81 mg tablet,delayed 81 mg PO BEDTIME 11/17/24 11/17/24 11/16/24 History release cholecalciferol (vitamin D3) 25 25 mcg PO DAILY 11/17/24 11/17/24 Unknown History mcg (1,000 unit) capsule (Vitamin D3) lorazepam 0.5 mg tablet 0.5 mg PO BEDTIME PRN anxiety/sleep 11/17/24 11/17/24 Unknown History simvastatin 20 mg tablet 20 mg PO BEDTIME 11/17/24 11/17/24 11/16/24 History Physical Exam 2 Vital Signs: Vital Signs: Last Vital Signs Temp 98 F 11/17/24 07:33 Pulse 120 H 11/17/24 07:33 Resp 16 11/17/24 07:33 BP 133/65 11/17/24 07:33 Pulse Ox 95 11/17/24 07:33 O2 Del Method Room Air 11/17/24 07:33 BMI result Body Mass Index 27.4 Const: General: cooperative, comfortable, no acute distress, alert and awake Nutritional Appearance: average body habitus Orientation/consciousness: p atient oriented x3 Limitations: no limitations HEENT: Head: Yes normocephalic and Yes atraumatic Neck: Neck: Yes trachea midline, Yes supple and Yes no JVD Resp: Effort & Inspection: normal respiratory effort Auscultation: clear to auscultation bilaterally Cardio: Jugular venous distension: no JVD Rate: tachycardic Rhythm: a bnormal rhythm irregularly irregular GI: Auscultation: normal bowel sounds Skin: General skin exam: no rashes or lesions noted Neuro: General: patient oriented x3 and no focal motor deficits Extrem: General: Yes no clubbing, cyanosis or edema Psych: Appearance: grossly normal Objective Labs and Meds 11/17/24 04:14 11/17/24 04:14 Lab results: Laboratory Results - last 24 hr 11/16/24 11/16/24 11/17/24 20:35 20:52 00:48 WBC 7.6 RBC 4.51 Hgb 13.7 Hct 40.9 MCV 90.7 MCH 30.4 MCHC 33.5 RDW 13.2 Plt Count 238 MPV 10.3 Immature Gran % (Auto) 0.1 Neut % (Auto) 43.6 L Lymph % (Auto) 40.7 H [place] % (Auto) 11.3 H Eos % (Auto) 3.9 Baso % (Auto) 0.4 Lymph # (Auto) 3.1 [place] # (Auto) 0.9 Eos # (Auto) 0.3 Baso # (Auto) 0.0 Abs Immat Gran (auto) 0.01 Absolute Neuts (auto) 3.3 Absolute Nucleated RBC 0.000 Nucleated RBC % (auto) 0.0 PT 11.7 12.2 INR 1.0 1.0 APTT 32.3 D-Dimer High Sensitivty 200 Sodium 134 L Potassium 3.7 Chloride 101 Carbon Dioxide 26 Anion Gap 11 L BUN 18 H Creatinine 0.85 Estim Creat Clear Calc 52.5 Estimated GFR > 60 Random Glucose 127 H Calcium 10.1 Magnesium Troponin I High Sens 3.9 TSH 1.42 Urine Color Yellow Urine Appearance Clear Urine pH 7.0 Ur Specific [place] <= 1.005 Urine Protein 100 (2+) H Urine Glucose (UA) Negative Urine Ketones Negative Urine Blood Trace H Urine Nitrite Negative Ur Leukocyte Esterase Negative Urine RBC 0-2 Urine WBC 0-5 Ur Squamous Epith Cells 0-2 Urine Bacteria None Seen Hyaline Casts 0-2 11/17/24 04:14 WBC 7.0 RBC 4.10 L Hgb 12.5 Hct 37.3 MCV 91.0 MCH 30.5 MCHC 33.5 RDW 13.2 Plt Count 206 MPV 10.2 Immature Gran % (Auto) Neut % (Auto) Lymph % (Auto) [place] % (Auto) Eos % (Auto) Baso % (Auto) Lymph # (Auto) [place] # (Auto) Eos # (Auto) Baso # (Auto) Abs Immat Gran (auto) Absolute Neuts (auto) Absolute Nucleated RBC 0.000 Nucleated RBC % (auto) 0.0 PT INR APTT D-Dimer High Sensitivty Sodium 136 Potassium 3.9 Chloride 107 Carbon Dioxide 23 Anion Gap 10 L BUN 14 Creatinine 0.65 Estim Creat Clear Calc 67.5 Estimated GFR > 60 Random Glucose 110 Calcium 9.3 D Magnesium 1.8 Troponin I High Sens TSH Urine Color Urine Appearance Urine pH Ur Specific [place] Urine Protein Urine Glucose (UA) Urine Ketones Urine Blood Urine Nitrite Ur Leukocyte Esterase Urine RBC Urine WBC Ur Squamous Epith Cells Urine Bacteria Hyaline Casts Assessment and Plan (1) Atrial fibrillation with RVR: Status: Acute New onset atrial fibrillation rapid ventricular response in his elderly woman without any evidence of acute myocardial injury. She has was very symptomatic which she had presented but also had significantly elevated blood pressure. Blood pressure is not better controlled on IV Cardizem. Will suture given that her symptoms are less than 24 hours in origin to try to pursue rhythm control approach initially chemically and if fails will do synchronized cardioversion tomorrow. Will start on IV amiodarone drip at 150 mg bolus followed by 1 milligram/minute for 6 hours followed by with 0.5 milligrams/minute. If she converts and will switch her to an oral antiarrhythmic drug therapy starting tomorrow. I would switch her anticoagulant regimen to Eliquis 5 mg b.i.d.. Had a detailed discussion about pathophysiology of atrial fibrillation as well as potential complication associated with it. Therapeutic management was discussed with her. She understands and agrees. Will follow with you Procedures Date of Service Date of Service: 11/17/24
--- NOTE | 2024-11-17 09:46 | HO.PM.IMPN ---
Subjective Subjective Date of Service: 11/17/24 Physical Exam Vital Signs: Vital Signs: Last Vital Signs Temp 98 F 11/17/24 07:33 Pulse 120 H 11/17/24 07:33 Resp 16 11/17/24 07:33 BP 133/65 11/17/24 07:33 Pulse Ox 95 11/17/24 07:33 O2 Del Method Room Air 11/17/24 07:33 BMI result Body Mass Index 27.4 Objective Data Active Medications Acetaminophen (Acetaminophen 325 Mg Tablet) 975 mg PO Q6H PRN PRN Reason: Pain, Mild 1-3,fever,headache Calcium Carbonate (Calcium Carbonate 750 Mg Tab.Chew) 750 mg PO Q4H PRN PRN Reason: Heartburn Enoxaparin Sodium (Enoxaparin Sodium 80 Mg/0.8 Ml Syringe) 80 mg SUBCUT Q12H [facility] Last Admin: 11/17/24 03:16 Dose: 80 mg Documented By: IRENE Amiodarone HCl 900 mg/ Sodium (Chloride) 518 mls @ 34.533 mls/hr IVCONT .Q15H1M [facility]; Protocol Amiodarone HCl (Nexterone) 150 mg in 100 mls @ 600 mls/hr IV ONCE ONE Stop: 11/17/24 09:48 Magnesium Hydroxide (Milk Of Magnesia 30 Ml Oral.Susp) 30 ml PO DAILY PRN PRN Reason: Constipation Melatonin (Melatonin 3 Mg Tablet) 6 mg PO BEDTIME PRN PRN Reason: Insomnia Sodium Chloride (0.9 % Sodium Chloride Flush 3 Ml Syringe) 3 ml IVFLUSH QSHIFT [facility] Last Admin: 11/17/24 08:05 Dose: Not Given Documented By: GERSON Non-Admin Reason: IV Running Labs 11/17/24 04:14 11/17/24 04:14 Labs: Laboratory Results - last 24 hr 11/16/24 11/16/24 11/17/24 20:35 20:52 00:48 MCV 90.7 MCH 30.4 MCHC 33.5 RDW 13.2 Plt Count 238 MPV 10.3 Immature Gran % (Auto) 0.1 Neut % (Auto) 43.6 L Lymph % (Auto) 40.7 H [place] % (Auto) 11.3 H Eos % (Auto) 3.9 Baso % (Auto) 0.4 Lymph # (Auto) 3.1 [place] # (Auto) 0.9 Eos # (Auto) 0.3 Baso # (Auto) 0.0 Abs Immat Gran (auto) 0.01 Absolute Neuts (auto) 3.3 Absolute Nucleated RBC 0.000 Nucleated RBC % (auto) 0.0 PT 11.7 12.2 INR 1.0 1.0 APTT 32.3 D-Dimer High Sensitivty 200 Anion Gap 11 L Estim Creat Clear Calc 52.5 Estimated GFR > 60 Random Glucose 127 H Calcium 10.1 Magnesium TSH 1.42 Urine Color Yellow Urine Appearance Clear Urine pH 7.0 Ur Specific [place] <= 1.005 Urine Protein 100 (2+) H Urine Glucose (UA) Negative Urine Ketones Negative Urine Blood Trace H Urine Nitrite Negative Ur Leukocyte Esterase Negative Urine RBC 0-2 Urine WBC 0-5 Ur Squamous Epith Cells 0-2 Urine Bacteria None Seen Hyaline Casts 0-2 11/17/24 04:14 MCV 91.0 MCH 30.5 MCHC 33.5 RDW 13.2 Plt Count 206 MPV 10.2 Immature Gran % (Auto) Neut % (Auto) Lymph % (Auto) [place] % (Auto) Eos % (Auto) Baso % (Auto) Lymph # (Auto) [place] # (Auto) Eos # (Auto) Baso # (Auto) Abs Immat Gran (auto) Absolute Neuts (auto) Absolute Nucleated RBC 0.000 Nucleated RBC % (auto) 0.0 PT INR APTT D-Dimer High Sensitivty Anion Gap 10 L Estim Creat Clear Calc 67.5 Estimated GFR > 60 Random Glucose 110 Calcium 9.3 D Magnesium 1.8 TSH Urine Color Urine Appearance Urine pH Ur Specific [place] Urine Protein Urine Glucose (UA) Urine Ketones Urine Blood Urine Nitrite Ur Leukocyte Esterase Urine RBC Urine WBC Ur Squamous Epith Cells Urine Bacteria Hyaline Casts Assessment and Plan Plan 83 yo f with a pmhx significant for HTN and HLD, who presented to the ED due to HTN and palpitations at home. Afib with RVR given PO metoprolol 25mg initially, then metoprolol 5mg IV x2, HR improved CXR negative UA negative CHADS VASc score 4 started therapeutic lovenox 80mg Q12H cardiology consult> start Amiodarone with bolus and eliquis Hyponatermia. Resolved mild, likely due to dehydration given 1L NS in ED monitor BMP HTN BP elevated initially, improved continue atenolol and lisinopril HLD continue statin full code VTE prophy:Eliquis Quality Stroke Does the patient have a stroke diagnosis?: No VTE Prior VTE?: No VTE Risk Level:: Medical - moderate - high VTE Device Contraindication: Treatment Not Indicated VTE Drug Contraindication: N/A - Med Ordered
--- NOTE | 2024-11-17 09:57 | PM.EVENT ---
Event Note Date of Service: 11/17/24 Event Note: 83 yo f with a pmhx significant for HTN and HLD, who presented to the ED due to HTN and palpitations at home. Afib with RVR given PO metoprolol 25mg initially, then metoprolol 5mg IV x2, HR improved CXR negative UA negative CHADS VASc score 4 started therapeutic lovenox 80mg Q12H cardiology consult> start Amiodarone with bolus and eliquis 5mg BID (age >80) Hyponatermia. Resolved mild, likely due to dehydration given 1L NS in ED monitor BMP HTN BP elevated initially, improved continue atenolol and lisinopril HLD continue statin full code VTE prophy:Luz Maria Time Spent With Patient Time: Total time managing care of this patient today ____ minutes.
[2024-11-17] MEDS: Amiodarone/Dextrose 150 MG/100 ML PLAST..BAG 600 MG IV (10:22)
[2024-11-17] MEDS: Amiodarone HCL 900 MG in 0.9 % Sodium Chloride 500 ML 34.53 MG IVCONT (11:08)
[2024-11-17] MEDS: Acetaminophen 325 MG TABLET 975 MG PO (18:10)
[2024-11-17] MEDS: Apixaban 2.5 MG TABLET PO (20:24)
[2024-11-17] MEDS: Milk of Magnesia 30 ML ORAL.SUSP PO (21:13)
[2024-11-18] MEDS: Atorvastatin Calcium 10 MG TABLET PO (00:40)
[2024-11-18] MEDS: Aspirin Enteric Coated 81 MG TABLET.DR PO (00:40)
[2024-11-18] MEDS: lisinopriL 20 MG TABLET PO ×2 (00:40→09:04)
[2024-11-18 03:09] VITALS: BP 163/78; PULSE 56; RESP 20; TEMP 36.4; O2SAT 97
[2024-11-18 07:09] LABS: Hematocrit 37.7 % (37.0-47.0); Hemoglobin 12.7 g/dl (12.0-16.0); Mean Corpuscular HGB Conc 33.7 g/dl (31.0-35.0); Mean Corpuscular Hemoglobin 30.8 pg (27.0-33.0); Mean Corpuscular Volume 91.5 fL (80.0-98.0); Mean Platelet Volume 10.5 fL (9.4-12.3); Platelet Count 218 X10*3/uL (160-400); Red Blood Count 4.12 X10*6/uL (4.20-5.50); Red Cell Distribution Width 13.4 % (11.0-16.0); White Blood Count 8.7 X10*3/uL (4.8-10.8)
[2024-11-18 07:24] LABS: INTERNATIONAL NORM RATIO 1.1 (0.9-1.1); Prothrombin Time 12.4 SEC (10.9-12.4)
[2024-11-18 07:29] VITALS: BP 163/77; PULSE 56; RESP 18; TEMP 36.7; O2SAT 96
[2024-11-18 07:33] LABS: Anion Gap 9 (12-20); Blood Urea Nitrogen 18 mg/dL (9-16); Calcium 10.4 mg/dL (8.4-10.2); Carbon Dioxide 27 mmol/L (22-29); Chloride 104 mmol/L (96-108); Creatinine Clr Calc Pharmacy 55.5; Estimated Glomerular Filt Rate > 60; Glucose Random 106 mg/dL (60-115); Potassium 4.7 mmol/L (3.3-5.1); Sodium 135 mmol/L (135-145)
[2024-11-18] MEDS: atenoloL 25 MG TABLET 37.5 MG PO (09:03)
[2024-11-18] MEDS: Apixaban 2.5 MG TABLET PO ×2 (09:04→09:09)
[2024-11-18] MEDS: 0.9 % Sodium Chloride Flush 3 ML SYRINGE IVFLUSH (09:07)
[2024-11-18] MEDS: Acetaminophen 325 MG TABLET 975 MG PO (09:08)
--- NOTE | 2024-11-18 09:09 | P.DS_ITS ---
DS: Providers Provider Date of Service: 11/18/24 Date of admission: 11/17/24 00:25 Date of discharge: 11/18/24 Primary care physician: Krista Allen MD Consults: 11/17/24 00:45 Consult to Cardiology Routine Consulting Provider: [facility] Reason for consultation: a fib with RVR DS: Diagnosis Discharge Diagnosis (1) Atrial fibrillation with RVR: Status: Acute DS: Summary Hospital Course Hospital Course: History and physical as per admitting provider. Pt is an 83 yo f with a pmhx significant for HTN and HLD, who presented to the ED due to HTN and palpitations at home. She states that she did not hydrate well throughout the day because she was busy and not at home. She denies headaches, chest pain, SOB, abd pain, nausea, vomtiing, diarrhea, or LE edema. She states she feels well and has no current complaints. No recent illness. She has had a recent cardiac w/u including an echo and holter monitor which were normal. She reports a hx of a fib but then was told she does not have a fib. She has taken her home BP meds, atenolol and lisinopril as normal today. 83-year-old woman treated for atrial fibrillation with rapid ventricular respon se. Initially treated with metoprolol IV and oral. Chest x-ray was negative for consolidation or effusion, UA negative for infection. Edgar Vasc score of 4, initially started on therapeutic Lovenox and then switched to Eliquis. Started on amiodarone drip with good effect, patient converted back to sinus rhythm. She will be started on Multaq and continue Eliquis 5 mg twice daily to follow up with Cardiology office for management of these medications. Hyponatremia. Very mild. Likely secondary to dehydration. Treated with IV fluids Hypertension. Blood pressure initially elevated. Improved with regular medications atenolol and lisinopril Hyperlipidemia. Continue statin Time Attestation Discharge Coordination Time (in mins): 42 Quality: Safe Use of Opioids Does Pt have an Active Cancer Diagnosis on the Problem List?: No Quality: Stroke Does the patient have a stroke diagnosis?: No Physical Exam Vital Signs: Vital Signs: Last Vital Signs Temp 98.0 F 11/18/24 07:29 Pulse 56 11/18/24 07:29 Resp 18 11/18/24 07:29 BP 163/77 H 11/18/24 07:29 Pulse Ox 96 11/18/24 07:29 O2 Del Method Room Air 11/18/24 07:29 BMI result Body Mass Index 27.4 Appearing in no acute distress head is normocephalic atraumatic eyes pupils are PERRLA sclera is anicteric mouth throat mucous membranes are intact and moist neck is supple no lymphadenopathy, no JVD noted lung sounds are clear to auscultation heart regular rate rhythm, clear S1, S2 positive bowel sounds, abdomen is soft, nontender neuro patient is alert x3, no focal deficits DS: Data Data Completed and Pending Labs on day of discharge: Laboratory Results - last 24 hr 11/18/24 06:29 WBC 8.7 RBC 4.12 L Hgb 12.7 Hct 37.7 MCV 91.5 MCH 30.8 MCHC 33.7 RDW 13.4 Plt Count 218 MPV 10.5 Absolute Nucleated RBC 0.000 Nucleated RBC % (auto) 0.0 PT 12.4 INR 1.1 Sodium 135 Potassium 4.7 D Chloride 104 Carbon Dioxide 27 Anion Gap 9 L BUN 18 H Creatinine 0.79 Estim Creat Clear Calc 55.5 Estimated GFR > 60 Random Glucose 106 Calcium 10.4 H D Magnesium 2.0 Discharge Plan Discharge Anticipated Discharge Date/Time: 11/18/24 09:06 Patient Disposition: Home, Self-Care Discharge Diagnosis: Atrial fibrillation with rapid ventricular response Referrals: Krista Allen MD [Primary Care Provider] - 1 Week [place] Zepeda MD [Physician] - 1 Week Discharge Medications: New apixaban 5 mg tablet 5 mg PO BID Qty: 60 0RF Multaq 400 mg tablet 400 mg PO BID Qty: 60 0RF Rx Instructions: must administer with a meal/food Continued lisinopril 20 mg tablet 20 mg PO BID Qty: 180 3RF aspirin 81 mg Tablet,Delayed Release (Dr/Ec) 81 mg PO BEDTIME acetaminophen 500 mg Tablet 1,000 mg PO BID PRN (Reason: Back Pain) cholecalciferol (vitamin D3) [Vitamin D3] 25 mcg (1,000 unit) Capsule 25 mcg PO DAILY simvastatin 20 mg tablet 20 mg PO BEDTIME lorazepam 0.5 mg tablet 0.5 mg PO BEDTIME PRN (Reason: anxiety/sleep) atenolol 25 mg tablet 37.5 mg PO DAILY Qty: 135 3RF Discharge Orders: Discharge Order (Routine); Ordered 11/18/24 Ordered By: Lorena Richmond Diet: Advance to usual diet Activity on Discharge: As tolerated Stand Alone Forms: Patient Portal Discharge page Print Language: German Care Plan Goals: You have been started on Multaq and Eliquis. Follow up with Cardiology for further management of these medications Health Concerns: Atrial fibrillation with rapid ventricular response Plan of Treatment: Follow up with primary care provider as needed Take all medications as prescribed Assessment: See discharge summary
--- NOTE | 2024-11-18 09:43 | MHC.CM.PN ---
Pt is medically cleared for discharge home self-care, pts daughter will transport him home today.
[2024-11-18] MEDS: Cholecalciferol (Vitamin D3) 25 MCG TABLET PO (09:59)
--- NOTE | 2024-11-18 10:04 | PM.PNCARD ---
Subjective Subjective Date of Service: 11/18/24 Principal diagnosis: Atrial fibrillation Interval history: Converted to sinus rhythm yesterday on amiodarone. Her amiodarone drip was stopped this morning. Blood pressure is noted to be elevated. She received her lisinopril. Has sinus bradycardia at this point time. Denies any chest pain, lightheadedness, syncope. Has been ambulating without any issues. Review of Systems Review of Systems Yes all other systems are reviewed and are negative Physical Exam Vital Signs: Last Vital Signs Temp 98.0 F 11/18/24 07:29 Pulse 56 11/18/24 07:29 Resp 18 11/18/24 07:29 BP 163/77 H 11/18/24 07:29 Pulse Ox 96 11/18/24 07:29 O2 Del Method Room Air 11/18/24 07:29 BMI result Body Mass Index 27.4 Const General: cooperative, comfortable, no acute distress, alert and awake Nutritional Appearance: average body habitus Orientation/consciousness: patient oriented x3 Neck Neck: Yes trachea midline, Yes supple and Yes no JVD Resp Effort & Inspection: normal respiratory effort Auscultation: clear to auscultation bilaterally Cardio Jugular venous distension: no JVD Rate: regular rate Rhythm: regular rhythm Heart sounds: S1 normal heart sound present, S2 normal heart sound present, no click, no gallops and no murmurs GI Auscultation: normal bowel sounds Skin General skin exam: no rashes or lesions noted Neuro General: patient oriented x3 and no focal motor deficits Extrem General: Yes no clubbing, cyanosis or edema Objective Labs and Meds 11/18/24 06:29 11/18/24 06:29 Lab results: Laboratory Results - last 24 hr 11/18/24 06:29 WBC 8.7 RBC 4.12 L Hgb 12.7 Hct 37.7 MCV 91.5 MCH 30.8 MCHC 33.7 RDW 13.4 Plt Count 218 MPV 10.5 Absolute Nucleated RBC 0.000 Nucleated RBC % (auto) 0.0 PT 12.4 INR 1.1 Sodium 135 Potassium 4.7 D Chloride 104 Carbon Dioxide 27 Anion Gap 9 L BUN 18 H Creatinine 0.79 Estim Creat Clear Calc 55.5 Estimated GFR > 60 Random Glucose 106 Calcium 10.4 H D Magnesium 2.0 Progress Note: A&P Assessment and plan (1) Paroxysmal atrial fibrillation: Status: Acute Assessment and Plan: New onset paroxysmal atrial fibrillation elderly woman which is converted to sinus rhythm with help of antiarrhythmic drug. Has left atrial enlargement and given her longstanding history of hypertension likely will need rhythm control approach with antiarrhythmic drug. Pressure-like probably with her history would be Multaq 400 mg b.i.d.. Reduce atenolol to 25 mg daily. Continue full oral anticoagulation, should be on Eliquis 5 mg b.i.d.. Continue aggressive blood pressure control for now continue lisinopril therapy. Advised to monitor her blood pressure at home. Will set up for follow-up as outpatient. Patient can be discharged home. Time Spent With Patient Time: Total time managing care of this patient today ____ minutes. Progress Note: Quality Stroke Does the patient have a stroke diagnosis?: No Procedures Date of Service Date of Service: 11/18/24
[2024-11-18 10:55] VITALS: BP 138/84; PULSE 62; RESP 18; TEMP 36.4; O2SAT 98
== END 2024-11-18 13:15 | disposition home or self-care (01) | DRG 309 ==
LOC: HO.ED 23:29 → HO.EDOVER 11-17 00:32 → HO.IMC 11-17 07:37
PROVIDERS: Admitting Provider Physician Assistant; Emergency Provider Emergency Medicine; PCP Internal Medicine; Visit Provider Nurse Practitioner Acute Care
DX: I48.0 Paroxysmal atrial fibrillation (principal); E87.1 Hypo-osmolality and hyponatremia; E86.0 Dehydration; I10 Essential (primary) hypertension; E78.5 Hyperlipidemia, unspecified; Z79.899 Other long term (current) drug therapy
CPT/HCPCS: 36415; 71045; 80048; 81001; 83735; 84443; 84484; 85025; 85027; 85379; 85610; 85730; 93005; 99285; J0282; J0283; J1650; J2270

== ENCOUNTER → 2024-11-16 20:35 | Outpatient (BNV) | payer MEDICARE, OTHER, SELFPAY | PROVIDERS: Admitting Provider Physician Assistant; Emergency Provider Emergency Medicine; Visit Provider Internal Medicine Cardiovascular Disease | DX: R00.0 Tachycardia, unspecified (principal); I48.91 Unspecified atrial fibrillation; I45.10 Unspecified right bundle-branch block; R94.31 Abnormal electrocardiogram [ECG] [EKG] | CPT/HCPCS: 93010 ==

== ENCOUNTER → 2024-11-16 23:25 | Outpatient (BNV) | payer MEDICARE, OTHER, SELFPAY | PROVIDERS: Admitting Provider Physician Assistant; Emergency Provider Emergency Medicine; Visit Provider Radiology Diagnostic Radiology | DX: R00.0 Tachycardia, unspecified (principal); I48.91 Unspecified atrial fibrillation | CPT/HCPCS: 71045 ==

== ENCOUNTER 2024-11-17 00:25 | Outpatient (BNV) | payer MEDICARE, OTHER, SELFPAY | END 2024-11-17 07:00 | PROVIDERS: Admitting Provider Physician Assistant; Emergency Provider Emergency Medicine; Visit Provider Internal Medicine Cardiovascular Disease | DX: I48.91 Unspecified atrial fibrillation (principal); I45.19 Other right bundle-branch block; R94.31 Abnormal electrocardiogram [ECG] [EKG] | CPT/HCPCS: 93010 ==

== ENCOUNTER → 2024-11-17 00:25 | Outpatient (BNV) | payer MEDICARE, OTHER, SELFPAY | PROVIDERS: Admitting Provider Physician Assistant; Emergency Provider Emergency Medicine; Visit Provider Internal Medicine Cardiovascular Disease | DX: I48.91 Unspecified atrial fibrillation (principal) | CPT/HCPCS: 99222 ==

== ENCOUNTER → 2024-11-17 00:25 | Outpatient (BNV) | payer MEDICARE, OTHER, SELFPAY | PROVIDERS: Admitting Provider Physician Assistant; Emergency Provider Emergency Medicine; Visit Provider Physician Assistant | DX: I48.91 Unspecified atrial fibrillation (principal) | CPT/HCPCS: 99223; 99239; 99499 ==

== ENCOUNTER 2024-11-21 10:12 | Outpatient (AMB) | payer MEDICARE, OTHER, SELFPAY ==
--- NOTE | 2024-11-21 10:46 | MHC.OFFWIV ---
Intake Vital Signs 11/21/24 10:47 Height 5 ft 6 in Weight 166 lb BMI 26.8 BP 130/82 Blood Pressure Location Lt brachial Position Sitting Pulse 66 Pulse Source Pulse Oximeter Temp 97.9 F Temp Source Oral Pulse Oximetry (%) 97 Oxygen Delivery Method Room Air Intake Visit Reasons: EP pain toward middle back Intake Note: pt is here for pain toward middle back, about a month ago patient was filling wood stove and thinks she pulled something Patient Tobacco Use Status: Never used Tobacco Allergies hydralazine Allergy (Verified 11/21/24 10:49) Unknown pantoprazole Allergy (Verified 11/21/24 10:49) Unknown hydrochlorothiazide Adverse Reaction (Intermediate, Verified 11/21/24 10:49) Palpitations amlodipine Adverse Reaction (Verified 11/21/24 10:49) DIZZINESS sotalol Adverse Reaction (Verified 11/21/24 10:49) Palpitations Do you need a note to return to daycare/school/sports/work: No HPI HPI Comments History of Present Illness Details History of Present Illness - The patient is an 83-year-old female presenting with back pain. - The back pain commenced one month ago while engaging in physical activity involving a wood stove. - Since onset, the patient has experienced continuous pain, managed by Tylenol. - NSAIDs are contraindicated due to current treatment with apixaban following a recent diagnosis of atrial fibrillation. - The pain remains localized to the mid-back without radiation or sciatica-like symptoms, which she has had before. - The patient reported increased pain following the use of a back brace. - Attempts at relief include Biofreeze and resting, with some improvement noted. Physical Exam General: Cooperative, healthy appearing, comfortable, no acute distress and well developed Orientation: Patient oriented x3 Limitations: No limitations Head: Normal to inspection Ears: Hearing grossly normal bilaterally Nose: Normal external nose present Face and sinus: Normal facial exam Eyes: Appearance normal, both eyes and all related structures Neck: Normal visual inspection and Yes full ROM Respiratory: Normal respiratory effort and able to speak in complete sentences. Skin: No rashes or lesions noted Neuro: Patient oriented x3 Extremities: Normal to inspection [facility] Medical History (Updated 11/21/24 @ 11:21 by Malathi Mejia PA-C) Atrial fibrillation with RVR Dysuria Impacted cerumen of both ears Bradycardia Dysplastic nevus Hyperglycemia Vitamin D deficiency Annual physical exam Palpitations Arrhythmia Leukoplakia of tongue Tachycardia Hyperlipidemia Peripheral neuropathy Hypertension Surgical History H/O mastectomy H/O colonoscopy Family History Father No problems noted. Mother No problems noted. Son Diabetes Social History Household Members: None Household Members Other:: lives alone, independent, daughter lives close Housing: House Do you presently have visiting nurse or other home services: No Alcohol intake: never Patient Tobacco Use Status: Never used Tobacco e-Cigarette/Vaping Use: Never Used Second Hand Smoke Exposure: No service: No Current occupational status: retired Cognitive needs: No Hearing needs: No Vision needs: Yes Review of Systems Const All systems reviewed & are unremarkable except as noted in HPI and below Physical Exam Vital Signs: Last Vital Signs Temp 97.9 F 11/21/24 10:47 Pulse 66 11/21/24 10:47 BP 130/82 11/21/24 10:47 Pulse Ox 97 11/21/24 10:47 Oxygen Delivery Method Room Air 11/21/24 10:47 BMI result Body Mass Index 26.8 Back/Spine/Pelvis Cervical Spine: cervical ROM normal and No Cervical spine tenderness Thoracic/Lumbar Spine: paraspinal muscle tenderness bilaterally in the mid thoracic and in the lower thoracic, No thoracic spinal tenderness and No lumbar spinal tenderness Assessment & Plan Assessment & Plan (1) Back pain: Code(s): M54.9 - Dorsalgia, unspecified Qualifiers: Back pain location: thoracic back pain Chronicity: acute Back pain laterality: bilateral Qualified Code(s): M54.6 - Pain in thoracic spine Plan: The patient is instructed to manage her back pain with Tylenol, as NSAIDs are contraindicated due to her current anticoagulation for atrial fibrillation. Sent RX for diclofenac gel 3% topically to alleviate her symptoms as well as rest. Ice application is recommended to reduce inflammation. If symptoms continue, physical therapy is suggested as a potential treatment avenue. Rest and limited physical activity are encouraged to aid in recovery. Patient was informed and verbally consented to the use of an ambient scribe for clinic note documentation during this visit. Medications: New diclofenac sodium 3% 1 appl topical BID 100 grams 0RF Coding Level of Care Code Est Pt Level 3 (29636) Diagnoses Acute bilateral thoracic back pain M54.6 Back pain location: thoracic back pain Chronicity: acute Back pain laterality: bilateral
[2024-11-21 10:47] VITALS: BP 130/82; PULSE 66; TEMP 36.6; O2SAT 97; BMI 26.8
== END 2024-11-21 11:27 | disposition home or self-care (01) ==
PROVIDERS: PCP Internal Medicine; Visit Provider Physician Assistant
DX: M54.6 Pain in thoracic spine (principal)

== ENCOUNTER → 2024-11-21 10:12 | Outpatient (BNVA) | payer MEDICARE, OTHER, SELFPAY | PROVIDERS: PCP Internal Medicine; Visit Provider Physician Assistant | DX: M54.6 Pain in thoracic spine (principal) | CPT/HCPCS: 99212 ==

== ENCOUNTER 2024-11-26 09:53 | Outpatient (AMB) | payer MEDICARE, OTHER, SELFPAY ==
[2024-11-26 10:00] VITALS: BP 124/70; PULSE 56; TEMP 36.6; O2SAT 96; BMI 26.0
--- NOTE | 2024-11-26 10:00 | A.OFFPC_ITS ---
Vital Signs 11/26/24 10:00 Height 5 ft 6 in Weight 161 lb BMI 26.0 BP 124/70 Blood Pressure Location Lt brachial Position Sitting Pulse 56 Pulse Source Pulse Oximeter Temp 97.8 F Temp Source Oral Pulse Oximetry (%) 96 Oxygen Delivery Method Room Air Intake Visit Reasons: TCM Intake Note: Pt is here today for TCM. Allergies hydralazine Allergy (Verified 11/26/24 10:01) Unknown pantoprazole Allergy (Verified 11/26/24 10:01) Unknown hydrochlorothiazide Adverse Reaction (Intermediate, Verified 11/26/24 10:01) Palpitations amlodipine Adverse Reaction (Verified 11/26/24 10:01) DIZZINESS sotalol Adverse Reaction (Verified 11/26/24 10:01) Palpitations Medication List - Last Reconciled 11/26/24 by Krista Allen MD acetaminophen 1,000 mg PO BID PRN apixaban 5 mg PO BID aspirin 81 mg PO BEDTIME atenolol 37.5 mg (1.5 x 25 mg) PO DAILY cholecalciferol (vitamin D3) (Vitamin D3) 25 mcg PO DAILY diclofenac sodium 1% 4 grams topical QID lisinopril 20 mg PO BID lorazepam 0.5 mg PO BEDTIME PRN meloxicam 7.5 mg PO DAILY simvastatin 20 mg PO BEDTIME Tobacco use date assessed: 11/26/24 Dental Screening Dental Screen Date: 10/21/24 [facility] TCM HPI Details Patient presents for the TCM after hospitalization for new onset AFib with rapid ventricular rate. Patient was treated with IV metoprolol followed by amiodarone drip and converted next day. Multaq prescription was sent to the pharmacy but patient could not afford to fill the prescription. She was started on anticoagulation Eliquis. Hypertension has been controlled on current medications. patient denies recurrent palpitations, chest pain shortness or breath. She is scheduled for nuclear stress test by Cardiology [facility] TCM Information Date of Discharge 11/18/24 Discharged From [facility] Interactive Contact Date (Reference documentation from this date) 11/19/24 [facility] Medical History (Updated 11/26/24 @ 15:24 by Krista Allen MD) Atrial fibrillation with RVR Dysuria Impacted cerumen of both ears Bradycardia Dysplastic nevus Hyperglycemia Vitamin D deficiency Annual physical exam Palpitations Arrhythmia Leukoplakia of tongue Tachycardia Hyperlipidemia Peripheral neuropathy Hypertension Surgical History H/O mastectomy H/O colonoscopy Family History Father No problems noted. Mother No problems noted. Son Diabetes Social History Household Members: None Household Members Other:: lives alone, independent, daughter lives close Housing: House Do you presently have visiting nurse or other home services: No Alcohol intake: never Patient Tobacco Use Status: Never used Tobacco e-Cigarette/Vaping Use: Never Used Second Hand Smoke Exposure: No service: No Current occupational status: retired Cognitive needs: No Hearing needs: No Vision needs: Yes Questionnaire PHQ-9 Over the last 2 weeks, how often have you been bothered by any of the following problems? 3. Trouble falling or staying asleep, or sleeping too much: not at all Source: Developed by Drs. Jae Sandoval, Yolanda Ennis, Darnell Matias and colleagues, with an educational chu from [employer]. Thrive Questionnaire Date Thrive assessed: 11/17/24 I am a: Patient What is your living situation today?: I have a steady place to live Within the past 12 months, did the food you bought not last and you didn't have the money to get more?: Never true Within the past 12 months, did you worry whether your food would run out before you got money to buy more?: Never true Do you have trouble paying for medicines?: No Do you have trouble getting transportation to medical appointments?: No Do you have trouble paying your heating and electricity bill?: No Do you have trouble taking care of your child, family member or friend?: No Do you have trouble with day-to-day activities such as bathing, preparing meals, shopping, managing finances, etc.?: No Are you currently unemployed and looking for a job?: No Are you interested in more education?: No Please select the resources that you would like help with: None Currently or been in a relationship where the following occur: No concerns reported THRIVE Score: 0 BRADY-7 AMB Questionnaire BRADY-7 Date BRADY - 7 assessed: 10/21/24 Source: Developed by Drs. Jae Sandoval, Yolanda Ennis, Darnell Matias and colleagues, with an educational chu from [employer]. Review of Systems Const All systems reviewed & are unremarkable except as noted in HPI and below Reports no additional complaints Eyes Reports no additional complaints ENT Reports no additional complaints Card Reports no additional complaints Resp Reports no additional complaints GI Reports no additional complaints Reports no additional complaints Physical exam (Primary Care) Vital Signs: Last Vital Signs Temp 97.8 F 11/26/24 10:00 Pulse 56 11/26/24 10:00 BP 124/70 11/26/24 10:00 Pulse Ox 96 11/26/24 10:00 Oxygen Delivery Method Room Air 11/26/24 10:00 BMI result Body Mass Index 26.0 Tobacco/Smoking Status: Tobacco use Status Tobacco use date assessed 11/26/24 11/26/24 10:02 Patient Tobacco Use Status Never used Tobacco 11/26/24 10:02 e-Cigarette/Vaping Use Never Used 11/26/24 10:02 Thrive Assessment: Date of Thrive Assessment Date Thrive assessed 11/17/24 11/26/24 10:02 Currently or been in a relationship where the following occur: No concerns reported Const General: no acute distress HENMT Head: Yes normal to inspection Ears: hearing grossly normal bilaterally Eyes General: appearance normal, both eyes and all related structures Resp Effort & Inspection: normal respiratory effort Auscultation: clear to auscultation bilaterally Cardio Rhythm: regular rhythm Heart sounds: S1 normal heart sound present and S2 normal heart sound present GI Inspection: Yes normal to inspection Palpation (GI): Soft to palpation Percussion: Yes normal to percussion Auscultation: normal bowel sounds Coding Level of Care Code TCM Mod MDM <= 14 Days Diagnoses Lower back pain M54.50 A-fib I48.91 Hypertension I10 Assessment & Plan Assessment & Plan (1) Lower back pain: Comment: Chronic lower back pain Code(s): M54.50 - Low back pain, unspecified Category: Medical Plan: Check x-ray and referred to physical therapy (2) A-fib: Comment[place] [facility] [place] amiodarone drip, started on Eliquis, we will have nuclear stress test. Echo 10/2024 nl EF, MILDLY DILATED LEFT ATRIUM, MILD AR AND MR, MILDLY DILATED ASCENDING AORTA AT 3.9 CM Code(s): I48.91 - Unspecified atrial fibrillation Category: Medical Plan: Continue Eliquis and beta negrito for now, follow-up with the Cardiology for nuclear stress test (3) Hypertension: Code(s): I10 - Essential (primary) hypertension Category: Medical Plan: Continue current medications Orders: Orders PT Evaluation and Treatment Today M54.50 - Low back pain, unspecified XR lumbar spine 2-3V Today M54.50 - Low back pain, unspecified Medications: Discontinued dronedarone (Multaq) must administer with a meal/food Discontinued Reason: Doctor's Order 400 mg PO BID 60 tabs 0RF
== END 2024-11-26 11:27 | disposition home or self-care (01) ==
LOC: HO.HMCC 09:53
PROVIDERS: PCP Internal Medicine; Visit Provider Internal Medicine
DX: M54.50 Low back pain, unspecified (principal); I48.91 Unspecified atrial fibrillation; I10 Essential (primary) hypertension

== ENCOUNTER 2024-11-26 09:53 | Outpatient (REF) | payer MEDICARE, OTHER, SELFPAY ==
--- NOTE | ~2024-11-26 | XR_ITS ---
EXAMINATION: XR LUMBOSACRAL SPINE CLINICAL INFORMATION: M54.50 - Low back pain, unspecified COMPARISON: None available. TECHNIQUE: Three views of the lumbosacral spine. FINDINGS: Multilevel marginal osteophyte formation. Multilevel endplate sclerosis and Schmorl nodes. 30% compression deformity likely old at L3. Incomplete ankylosis at L4-5. Facet joint hypertrophy at L4-5 and L5-S1. Dextroconvex rotoscoliosis, mild to moderate apex at L3-4. Pravin T12. XR/XR lumbar spine 2-3V IMPRESSION: Multilevel lumbar spondylosis without acute fracture or gross listhesis. Electronically signed by: Kameron Dykes MD 11/26/2024 03:45 PM EDT
== END 2024-11-26 09:54 | disposition home or self-care (01) ==
LOC: HO.HMGCX 09:53
PROVIDERS: PCP Internal Medicine; Visit Provider Internal Medicine
DX: R77.9 Abnormality of plasma protein, unspecified (principal); G62.9 Polyneuropathy, unspecified; I49.9 Cardiac arrhythmia, unspecified; R26.89 Other abnormalities of gait and mobility; R00.1 Bradycardia, unspecified; I10 Essential (primary) hypertension
CPT/HCPCS: 72100

== ENCOUNTER → 2024-11-26 11:08 | Outpatient (BNV) | payer MEDICARE, OTHER, SELFPAY | PROVIDERS: PCP Internal Medicine; Visit Provider Radiology Diagnostic Radiology | DX: M47.816 Spondylosis without myelopathy or radiculopathy, lumbar region (principal) | CPT/HCPCS: 72100 ==

== ENCOUNTER 2024-11-27 13:06 | Inpatient (IN) | payer MEDICARE, OTHER, SELFPAY ==
--- NOTE | ~2024-11-27 | CT_ITS ---
CLINICAL HISTORY: left side abdominal back pain CT abdomen and pelvis with contrast Comparison: CT - CT ABDOMEN PELVIS W IV CON - 11/27/24 18:31 EDT Findings: Extensive sigmoid diverticula. There is a small focus along the lateral aspect of the distal sigmoid colon of mild wall thickening and inflammatory change favored to represent a very mild case of diverticulitis. No perforation or abscess identified. Remainder of the bowel is normal. There is a moderate colonic fecal retention. No significant solid organ abnormality. No abdominal aortic aneurysm. Mild L2 and L3 anterior vertebral body wedging could reflect sequela of degenerative change although remote compression deformities are not excluded. No acute fracture. Diffusely mottled appearance of the bones is favored to represent osteoporosis. There is suggestion of a few possible discrete lytic lesions, although this is not entirely definitive. IMPRESSION: 1. Mild sigmoid diverticulitis. 2. Diffusely mottled and osteopenic appearance of the bones. Correlate for osteoporosis. Suggestion of a few possible discrete lytic lesions although this may represent severe demineralization alternatively. This document has been electronically signed by: Cruz Westbrook MD on 11/27/2024 19:13:21
[2024-11-27 13:18] VITALS: BP 172/90; PULSE 60; O2SAT 99
[2024-11-27 13:23] VITALS: BP 154/79; PULSE 62; RESP 18; TEMP 36.7; O2SAT 96; BMI 26.6
--- NOTE | 2024-11-27 16:25 | ED_ITS ---
HPI - General Adult General Chief complaint: Back Pain/Injury Stated complaint: BACK PAIN/SPASMS,DIFF AMB PER EMS Time Seen by Provider: 11/27/24 16:08 Source: patient and EMS Mode of arrival: EMS Limitations: no limitations History of Present Illness ED Provider: DR. Lundberg HPI narrative: 83-year-old female past medical history significant for HTN, HLD, recent diagnosis of AFib on Eliquis. Came in for evaluation of 4 weeks of low back pain started after moving heavy things, patient thinks that she strained her back the pain has been progressively getting worse, since yesterday patient is been having 10/10 severe pain to the back and anterior abdomen, did not have bowel movement for 9 days, passing flatus intermittently. No urinary or stool incontinence, no lower extremity weakness or numbness still able to ambulate at home with severe pain. No fever, no chills, no dysuria, no frequency urination, no hematuria, beside moving heavy object 4 weeks ago no trauma or injury to the back. Patient stated she has an appointment tomorrow with is/it project manager for high protein in the blood referred by her PCP. Related Data Home Medications ?Medication ?Instructions ?Recorded ?Confirmed acetaminophen 500 mg tablet 1,000 mg PO BID PRN Back Pain 11/17/24 11/26/24 aspirin 81 mg tablet,delayed 81 mg PO BEDTIME 11/17/24 11/26/24 release cholecalciferol (vitamin D3) 25 25 mcg PO DAILY 11/17/24 11/26/24 mcg (1,000 unit) capsule (Vitamin D3) lorazepam 0.5 mg tablet 0.5 mg PO BEDTIME PRN anxiety/sleep 11/17/24 11/26/24 simvastatin 20 mg tablet 20 mg PO BEDTIME 11/17/24 11/26/24 Previous Rx's ?Medication ?Instructions ?Recorded lisinopril 20 mg tablet 20 mg PO BID #180 tabs 07/01/24 atenolol 25 mg tablet 37.5 mg (1.5 x 25 mg) PO DAILY 08/19/24 #135 tabs apixaban 5 mg tablet 5 mg PO BID #60 tabs 11/18/24 diclofenac sodium 1 % topical gel 4 g topical QID #100 grams 11/21/24 Allergies Allergy/AdvReac Type Severity Reaction Status Date / Time hydralazine Allergy Unknown Verified 11/27/24 13:26 pantoprazole Allergy Unknown Verified 11/27/24 13:26 hydrochlorothiazide AdvReac Intermediate Palpitation Verified 11/27/24 13:26 s amlodipine AdvReac DIZZINESS Verified 11/27/24 13:26 sotalol AdvReac Palpitation Verified 11/27/24 13:26 s Review of Systems 2 Review of Systems: All other systems are reviewed and are negative Constitutional: Reports as per HPI and Reports no additional constitutional complaints Eyes: Reports as per HPI and Reports no additional eye complaints Reports system reviewed and no additional complaints, except as documented Cardiovascular: Reports as per HPI and Reports no additional cardiovascular complaints Respiratory: Reports as per HPI and Reports no additional respiratory complaints Gastrointestinal: Reports as per HPI and Reports no additional gastrointestinal complaints Genitourinary: Reports no additional female genitourinary complaints Musculoskeletal: Reports no additional musculoskeletal complaints Skin/Breast: Reports system reviewed and no additional complaints, except as docu Psychiatric: Reports no additional psychiatric complaints Endocrine: Reports no additional endocrine complaints Hematologic/Lymphatic: Reports no additional hematologic/lymphatic complaints Allergic/Immunologic: Reports no additional allergic/immunologic complaints Reports system reviewed and no additional complaints, except as documented and Reports Abnormal speech present [facility] Past Medical History Medical History Atrial fibrillation with RVR Dysuria Impacted cerumen of both ears Bradycardia Dysplastic nevus Hyperglycemia Vitamin D deficiency Annual physical exam Palpitations Arrhythmia Leukoplakia of tongue Tachycardia Hyperlipidemia Peripheral neuropathy Hypertension Surgical History H/O mastectomy H/O colonoscopy Family History Family History Father No problems noted. Mother No problems noted. Son Diabetes Social History Social History Household Members: None Household Members Other:: lives alone, independent, daughter lives close Housing: House Do you presently have visiting nurse or other home services: No Alcohol intake: never Patient Tobacco Use Status: Never used Tobacco Smoked in Last 30 Days: No e-Cigarette/Vaping Use: Never Used Second Hand Smoke Exposure: No Use of substances other than those prescribed or required for medical reasons: No Advance Directives: No Advance Directives Information Provided: Yes Do you have a plan to hurt others: No Plan service: No Current occupational status: retired Cognitive needs: No Hearing needs: No Vision needs: Yes Physical Exam ED Vital Signs: Vital Signs - 24 hr 11/27/24 13:23 11/27/24 17:24 11/27/24 20:02 Temperature 98.1 F 97.2 F Pulse Rate 62 57 64 Respiratory Rate 18 18 20 Blood Pressure 154/79 H 166/77 H 179/77 H Pulse Oximetry 96 96 96 Oxygen Delivery Method Room Air Room Air Room Air BMI result Body Mass Index 26.6 Vital signs have been reviewed and appear to be correct. Blood pressure elevated. Heart rate normal. Respiratory rate normal. Temperature normal. Oxygen saturation normal. Appearance: Alert. Oriented X3. No acute distress. Head: Normal external exam. Normocephalic. Atraumatic. No Ojeda signs noted. No raccoon eyes noted Eyes: PERRLA. EOMI. Conjunctiva and sclera normal. Eyelids normal. ENT: TM's Normal. Pharynx normal. Uvula midline. Moist mucous membranes. No trismus noted. No drooling noted. No muffled voice noted. Neck: Normal inspection. Neck supple. FROM. No adenopathy. Thyroid Normal. No meningeal signs. No neck mass noted. CVS: Normal heart rate and rhythm. Heart sound normal. No murmurs noted. Pulses normal throughout. Respiratory: No respiratory distress. Painless inspiration. Breath sounds normal. No wheezes/rales/rhonchi noted. Chest nontender. No accessory muscle usage noted or decreased air movement noted. Abdomen: Soft and nontender. Bowel sounds normal in all 4 quadrants. No distention noted. No organomegaly noted. No visible injury noted. Back: No CVA tenderness. Full range of motion noted. Skin: Skin warm and dry. Normal skin color. Normal skin turgor. No rashes/lesions/lacerations noted. Extremities: No lower extremity edema. Extremities exhibit normal range of motion. Extremities nontender. Neuro: Oriented X 3. Cranial nerve exam: II-XII are grossly intact No motor deficit. No sensory deficit. Reflexes normal. Course Reevaluation(s) Reevaluation #1: 83-year-old history of diverticulitis, came in with 4 weeks of back pain no urinary incontinence no weakness, no numbness. 1. CT revealed diverticulitis which may aggravate chronic back pain thought to be muscular in origin, Patient received Zosyn. 2. CT concern of osteoporosis and few possible discrete lytic lesions given that the patient has high-protein and supposed to see a is/it project manager tomorrow referred by her PCP which raised concern hematological disorders. Discussed with the hospitalist to get inpatient hematology consult. Time: 20:36 Medications Administered Generic Name Dose Route Start Last Admin Trade Name Freq PRN Reason Stop Dose Admin Piperacillin Sod/Tazobactam 50 mls @ 100 mls/hr 11/27/24 20:28 11/27/24 20:41 Sod 3.375 gm/ Sodium Chloride IV 11/27/24 20:57 100 mls/hr ONCE ONE Administration Discontinued Medications Generic Name Dose Route Start Last Admin Trade Name Freq PRN Reason Stop Dose Admin Sodium Chloride 1,000 mls @ 999 mls/hr 11/27/24 16:23 11/27/24 19:51 Ns IV 11/27/24 17:23 Infused .Q1H1M ONE Infusion Iohexol 100 ml 11/27/24 18:39 11/27/24 18:39 Iohexol 350 Mg/Ml 100 Ml Infus..Btl IV 11/27/24 18:40 85 ml ONCE ONE Administration Lisinopril 20 mg 11/27/24 20:31 11/27/24 20:41 Lisinopril 20 Mg Tablet PO 11/27/24 20:32 20 mg ONCE ONE Administration Protocol Magnesium Hydroxide 30 ml 11/27/24 20:28 11/27/24 20:41 Milk Of Magnesia 30 Ml Oral.Susp PO 11/27/24 20:29 30 ml ONCE ONE Administration Morphine Sulfate 2 mg 11/27/24 16:23 11/27/24 17:06 Morphine Sulfate 2 Mg/Ml Cartridge IVPUSH 11/27/24 16:24 2 mg ONCE ONE Administration Protocol Medical Decision Making Differential Diagnosis Differential Diagnoses: The differential diagnosis associated with the presentation includes ( Cauda equina, diverticulitis, colitis, constipation, severe anemia, electrolyte derangement.) Admission/Observation Consideration of admission/observation: Escalation of care including admission/observation considered Consult Healthcare Provider Management of the patient was discussed with: Hospitalist ( Dr. Dennison) Lab Data MDM Lab Attestation statement: I reviewed the patient's lab results. 11/27/24 17:15 11/27/24 17:15 Labs: Lab Results 11/27/24 Range/Units 17:15 WBC 8.4 (4.8-10.8) X10*3/uL RBC 4.32 (4.20-5.50) X10*6/uL Hgb 13.2 (12.0-16.0) g/dl Hct 39.4 (37.0-47.0) % MCV 91.2 (80.0-98.0) fL MCH 30.6 (27.0-33.0) pg MCHC 33.5 (31.0-35.0) g/dl RDW 13.2 (11.0-16.0) % Plt Count 228 (160-400) X10*3/uL MPV 10.2 (9.4-12.3) fL Immature Gran % (Auto) 0.2 (0.0-0.4) % Neut % (Auto) 48.0 (45-73) % Lymph % (Auto) 39.3 (20-40) % Yell % (Auto) 11.4 H (2-11) % Eos % (Auto) 0.9 (0-4) % Baso % (Auto) 0.2 (0-2) % Lymph # (Auto) 3.3 (1.2-4.9) X10*3/uL Yell # (Auto) 1.0 (0.1-1.2) X10*3/uL Eos # (Auto) 0.1 (0.0-0.4) X10*3/uL Baso # (Auto) 0.0 (0.0-0.2) X10*3/uL Abs Immat Gran (auto) 0.02 (0.00-0.03) X10*3/uL Absolute Neuts (auto) 4.0 (2.0-8.3) x10*3/uL Absolute Nucleated RBC 0.000 (0.0-0.012) X10*3/uL Nucleated RBC % (auto) 0.0 (0.0-0.2) /100WBC Sodium 132 L (135-145) mmol/L Potassium 4.2 (3.3-5.1) mmol/L Chloride 101 (96-108) mmol/L Carbon Dioxide 23 (22-29) mmol/L Anion Gap 12 (12-20) BUN 15 (9-16) mg/dL Creatinine 0.77 (0.5-1.4) mg/dL Estim Creat Clear Calc 54.2 Estimated GFR > 60 Random Glucose 103 (60-115) mg/dL Calcium 10.8 H (8.4-10.2) mg/dL Total Bilirubin 0.9 (0.0-1.0) mg/dL Direct Bilirubin 0.4 (0.0-0.5) mg/dL AST 21 (5-31) U/L ALT 9 (0-31) U/L Alkaline Phosphatase 71 (39-117) U/L Total Protein 10.0 H (6.5-8.0) g/dL Albumin 4.1 (3.5-5.0) g/dL Lipase 19 (8-78) U/L Independent Interpretation I performed an independent interpretation of an: CT Scan ( abdomen and pelvis:he was admitted to [facility]. Has a history of diabetes, hypertension. Recently presented with NSTEMI/diabetic ketoacidosis/COVID and was transferred to [facility]. He was appropriately treated for acute medical issues. Because of NSTEMI, he underwent further w) Radiology Impression Discussion of test interpretation with radiology: I have reviewed the radiologist's reading. Discharge Plan Discharge Clinical Impression: Back pain, Diverticulitis Patient Disposition: Admitted As Inpatient Print Language: Mozambican
[2024-11-27] MEDS: Morphine Sulfate 2 MG/ML CARTRIDGE IVPUSH (17:06)
[2024-11-27] MEDS: 0.9 % Sodium Chloride 1,000 ML 999 ML IV (17:07)
[2024-11-27 17:24] VITALS: BP 166/77; PULSE 57; RESP 18; O2SAT 96
[2024-11-27 17:29] LABS: MANUAL DIFF FLAG NO
[2024-11-27 17:31] LABS: Basophils Percent Auto 0.2 % (0-2); Eosinophils Absolute Auto 0.1 X10*3/uL (0.0-0.4); Eosinophils Percent Auto 0.9 % (0-4); Hematocrit 39.4 % (37.0-47.0); Hemoglobin 13.2 g/dl (12.0-16.0); Imm Gran Abs Auto 0.02 X10*3/uL (0.00-0.03); Imm Gran Pct Auto 0.2 % (0.0-0.4); Lymphocytes Absolute Auto 3.3 X10*3/uL (1.2-4.9); Lymphocytes Percent Auto 39.3 % (20-40); Mean Corpuscular HGB Conc 33.5 g/dl (31.0-35.0); Mean Corpuscular Hemoglobin 30.6 pg (27.0-33.0); Mean Corpuscular Volume 91.2 fL (80.0-98.0); Mean Platelet Volume 10.2 fL (9.4-12.3); Monocytes Percent Auto 11.4 % (2-11); Platelet Count 228 X10*3/uL (160-400); Red Blood Count 4.32 X10*6/uL (4.20-5.50); Red Cell Distribution Width 13.2 % (11.0-16.0); White Blood Count 8.4 X10*3/uL (4.8-10.8)
[2024-11-27 17:47] LABS: Alanine Aminotransferase 9 U/L (0-31); Albumin Level 4.1 g/dL (3.5-5.0); Alkaline Phosphatase 71 U/L (39-117); Anion Gap 12 (12-20); Aspartate Amino Transferase 21 U/L (5-31); Bilirubin Direct 0.4 mg/dL (0.0-0.5); Bilirubin Total 0.9 mg/dL (0.0-1.0); Blood Urea Nitrogen 15 mg/dL (9-16); Calcium 10.8 mg/dL (8.4-10.2); Carbon Dioxide 23 mmol/L (22-29); Chloride 101 mmol/L (96-108); Creatinine Clr Calc Pharmacy 54.2; Estimated Glomerular Filt Rate > 60; Glucose Random 103 mg/dL (60-115); Lipase 19 U/L (8-78); Potassium 4.2 mmol/L (3.3-5.1); Sodium 132 mmol/L (135-145)
[2024-11-27] MEDS: iohexoL 350 MG/ML 100 ML INFUS..BTL IV (18:39)
[2024-11-27 20:02] VITALS: BP 179/77; PULSE 64; RESP 20; TEMP 36.2; O2SAT 96
--- NOTE | 2024-11-27 20:03 | PC.NURSE ---
pt reports that her back pain is at 2/10 at rest but once starts to move around pain jumps right up to 8/10
--- NOTE | 2024-11-27 20:28 | PC.NURSE ---
pt is also reporting that she has not had a bowel movement for about a week has been using miralax at home with out any success
--- NOTE | 2024-11-27 20:40 | PM.IMHP ---
History of Present Illness Date of Service: 11/27/24 Chief Complaint: Back pain 83-year-old female with a past medical history of HTN, HLD, AFib on Eliquis presented to the hospital with a chief complaint back pain. Patient reports that over the past 4 weeks she has been having back pain which has been gradually worsening. Over the past 2 days has increased back pain limiting her activities. Reports mild lower abdominal pain as well. Reports feeling constipated. Reports passing gas. Denies any nausea or vomiting. Denies any fevers and chills. Denies any chest pain or palpitations. Denies any numbness tingling or focal weakness. Denies any bowel incontinence or urinary retention. Denies any falls or injury. Review of all other systems is negative except mentioned above ER course: Per ER team, patient noted to have low back pain, nonfocal examination, no red flag signs, has mild anterior abdominal tenderness, CT abdomen pelvis showed mild sigmoid colitis, no lumbar spine fracture; given antibiotics. [facility] Medical History Atrial fibrillation with RVR Dysuria Impacted cerumen of both ears Bradycardia Dysplastic nevus Hyperglycemia Vitamin D deficiency Annual physical exam Palpitations Arrhythmia Leukoplakia of tongue Tachycardia Hyperlipidemia Peripheral neuropathy Hypertension Family History Father No problems noted. Mother No problems noted. Son Diabetes Surgical History H/O mastectomy H/O colonoscopy Social History Household Members: None Household Members Other:: lives alone, independent, daughter lives close Housing: House Do you presently have visiting nurse or other home services: No Alcohol intake: never Patient Tobacco Use Status: Never used Tobacco Smoked in Last 30 Days: No e-Cigarette/Vaping Use: Never Used Second Hand Smoke Exposure: No Use of substances other than those prescribed or required for medical reasons: No Advance Directives: No Advance Directives Information Provided: Yes Do you have a plan to hurt others: No Plan service: No Current occupational status: retired Cognitive needs: No Hearing needs: No Vision needs: Yes Meds Allergies Allergy/AdvReac Type Severity Reaction Status Date / Time hydralazine Allergy Unknown Verified 11/27/24 13:26 pantoprazole Allergy Unknown Verified 11/27/24 13:26 hydrochlorothiazide AdvReac Intermediate Palpitation Verified 11/27/24 13:26 s amlodipine AdvReac DIZZINESS Verified 11/27/24 13:26 sotalol AdvReac Palpitation Verified 11/27/24 13:26 s Active Medications: Current Medications Acetaminophen (Acetaminophen 325 Mg Tablet) 650 mg PO Q6H PRN PRN Reason: Pain, Mild 1-3,fever,headache Apixaban (Apixaban 5 Mg Tablet) 5 mg PO BID [facility] Calcium Carbonate (Calcium Carbonate 750 Mg Tab.Chew) 750 mg PO Q4H PRN PRN Reason: Heartburn Hydromorphone HCl (Hydromorphone Hcl 0.5 Mg/0.5 Ml Syringe) 0.5 mg IVPUSH Q4H PRN; Protocol PRN Reason: Pain, Severe (Pain Scale 7-10) Piperacillin Sod/Tazobactam (Sod 3.375 gm/ Sodium Chloride) 50 mls @ 100 mls/hr IV ONCE ONE Stop: 11/27/24 20:57 Dextrose/Sodium Chloride (D51/2ns) 1,000 mls @ 50 mls/hr IVCONT .Q20H [facility] Piperacillin Sod/Tazobactam (Sod 3.375 gm/ Sodium Chloride) 50 mls @ 100 mls/hr IV Q6H [facility] Magnesium Hydroxide (Milk Of Magnesia 30 Ml Oral.Susp) 30 ml PO DAILY PRN PRN Reason: Constipation Melatonin (Melatonin 3 Mg Tablet) 6 mg PO BEDTIME PRN PRN Reason: Insomnia Sodium Chloride (0.9 % Sodium Chloride Flush 3 Ml Syringe) 3 ml IVFLUSH QSHIFT [facility] Home Medications ?Medication ?Instructions ?Recorded ?Confirmed ?Last Taken ?Type acetaminophen 500 mg tablet 1,000 mg PO BID PRN Back Pain 11/17/24 11/26/24 Unknown History aspirin 81 mg tablet,delayed 81 mg PO BEDTIME 11/17/24 11/26/24 11/16/24 History release cholecalciferol (vitamin D3) 25 25 mcg PO DAILY 11/17/24 11/26/24 Unknown History mcg (1,000 unit) capsule (Vitamin D3) lorazepam 0.5 mg tablet 0.5 mg PO BEDTIME PRN anxiety/sleep 11/17/24 11/26/24 Unknown History simvastatin 20 mg tablet 20 mg PO BEDTIME 11/17/24 11/26/24 11/16/24 History Physical Exam Vital Signs and Narrative: Vital Signs: Last Vital Signs Temp 97.2 F 11/27/24 20:02 Pulse 64 11/27/24 20:02 Resp 20 11/27/24 20:02 BP 179/77 H 11/27/24 20:02 Pulse Ox 96 11/27/24 20:02 O2 Del Method Room Air 11/27/24 20:02 BMI result Body Mass Index 26.6 Gen: Appears be in no acute distress HEENT: NCAT, Moist mucosa. Pulmonary: Vesicular breath sounds, fair air entry CVS: Normal S1-S2 Abdomen: BS+, Soft, Nontender Extremities: Warm well perfused Neuro: Alert and awake. Results Labs 11/27/24 17:15 11/27/24 17:15 Labs: Laboratory Results - last 24 hr 11/27/24 17:15 MCV 91.2 MCH 30.6 MCHC 33.5 RDW 13.2 Plt Count 228 MPV 10.2 Immature Gran % (Auto) 0.2 Neut % (Auto) 48.0 Lymph % (Auto) 39.3 [place] % (Auto) 11.4 H Eos % (Auto) 0.9 Baso % (Auto) 0.2 Lymph # (Auto) 3.3 [place] # (Auto) 1.0 Eos # (Auto) 0.1 Baso # (Auto) 0.0 Abs Immat Gran (auto) 0.02 Absolute Neuts (auto) 4.0 Absolute Nucleated RBC 0.000 Nucleated RBC % (auto) 0.0 Anion Gap 12 Estim Creat Clear Calc 54.2 Estimated GFR > 60 Random Glucose 103 Calcium 10.8 H Total Bilirubin 0.9 Direct Bilirubin 0.4 AST 21 ALT 9 Alkaline Phosphatase 71 Total Protein 10.0 H Albumin 4.1 Lipase 19 Assessment and Plan (1) Diverticulitis: Status: Acute Plan 83-year-old female with a past medical history of HTN, HLD, AFib on Eliquis presented to the hospital with a chief complaint back pain./abdominal pain. Noted to have diverticulitis. Acute sigmoid diverticulitis: CT scan showed mild sigmoid diverticulitis. Will keep the patient on Zosyn. NPO Gentle IV fluids Recommended general surgery follow-up. Low back pain: Likely referred pain from diverticulitis. Nonfocal examination. Pain control. PT/OT when ready for discharge. Diffuse osteopenia/Lytic lesions/High [place]: Hematology consult. Mild hyponatremia: Will monitor Mild hypercalcemia: Likely in setting of dehydration. Patient on IV fluids. Chronic medical conditions: AFib: Continue home Eliquis. Anxiety: Continue home Ativan Hypertension: We will monitor vitals and resume home antihypertensives eventually. DVT prophylaxis: Patient on Eliquis Code status: Full code Quality Stroke Does the patient have a stroke diagnosis?: No VTE Prior VTE?: No VTE Risk Level:: Medical - moderate - high VTE Device Contraindication: Patient Refused VTE Drug Contraindication: N/A - Med Ordered
[2024-11-27] MEDS: Milk of Magnesia 30 ML ORAL.SUSP PO (20:41)
[2024-11-27] MEDS: lisinopriL 20 MG TABLET PO (20:41)
[2024-11-27] MEDS: Piperacillin Sodium/Tazobactam 3.375 GM in 0.9 % Sodium Chloride 50 ML IV (20:41)
[2024-11-27] MEDS: Apixaban 5 MG TABLET PO (20:57)
[2024-11-27] MEDS: Dextrose 5 % and 0.45 % NaCl 1,000 ML 50 ML IVCONT (21:36)
--- NOTE | 2024-11-27 21:43 | PHA.MEDREC ---
Addendum entered by Shannon Tam RPh 11/27/24 21:52: reviewed by [facility]. Original Note: Pharmacy Consult ? Medication Reconciliation Pharmacy has completed the medication reconciliation. Spoke with patient and she confirmed her medications. Patient confirmed she was suppose to get the Diclofenac Gel for her back pain but her Dr stopped did not want her taking the Diclofenac Gel after prescribing it and stopped it in the last week. She also confirmed she has not started the Meloxicam 7.5mg tab and stats the Co-Pay was really high and she notified her Employment Attorney, patient also getting more testing done next week from Employment Attorney. She confirmed she still has the Lorazepam 0.5mg tabs at home and confirmed she takes them only when absolutely needed when she is having restless sleep. She confirmed she took her morning medications this morning before coming into the ED.
[2024-11-27 21:52] LABS: Appearance Urine Clear; Color Urine Yellow; Glucose Urine UA Negative (Negative); Leukocyte Esterase Urine Negative (Negative); Nitrite Urine Negative (Negative); Specific Gravity - Urine >= 1.030 (1.005-1.025); Urine Blood Negative (Negative); Urine Ketones Trace mg/dL (Negative); Urine Protein Negative (Neg-Trace)
[2024-11-27 22:42] VITALS: BP 157/73; PULSE 55; RESP 20; TEMP 36.8; O2SAT 95
[2024-11-27] MEDS: HYDROmorphone HCl 0.5 MG/0.5 ML SYRINGE IVPUSH (22:44)
[2024-11-28] VITALS (13 sets, daily range): BP systolic 136–188; BP diastolic 60–81; PULSE 53–62; RESP 14–18; TEMP 36.5–37.1; O2SAT 93–97
[2024-11-28] MEDS: HYDROmorphone HCl 0.5 MG/0.5 ML SYRINGE IVPUSH ×3 (01:45→16:59)
--- NOTE | 2024-11-28 01:47 | PC.NURSE ---
Provider into see pt, medicater pr mar, warm blanket given.
[2024-11-28] MEDS: Piperacillin Sodium/Tazobactam 3.375 GM in 0.9 % Sodium Chloride 50 ML IV ×4 (02:53→19:38)
--- NOTE | 2024-11-28 02:53 | PC.NURSE ---
medicated per mar
--- NOTE | 2024-11-28 05:22 | PC.NURSE ---
pt sleeping no sign of distress
[2024-11-28 05:58] LABS: MANUAL DIFF FLAG NO
[2024-11-28 06:11] LABS: Basophils Percent Auto 0.4 % (0-2); Eosinophils Percent Auto 0.6 % (0-4); Hematocrit 34.9 % (37.0-47.0); Hemoglobin 11.8 g/dl (12.0-16.0); Imm Gran Abs Auto 0.02 X10*3/uL (0.00-0.03); Imm Gran Pct Auto 0.3 % (0.0-0.4); Lymphocytes Absolute Auto 1.6 X10*3/uL (1.2-4.9); Lymphocytes Percent Auto 22.1 % (20-40); Mean Corpuscular HGB Conc 33.8 g/dl (31.0-35.0); Mean Corpuscular Volume 91.6 fL (80.0-98.0); Mean Platelet Volume 10.7 fL (9.4-12.3); Monocytes Absolute Auto 0.6 X10*3/uL (0.1-1.2); Neutrophils Percent Auto 68.6 % (45-73); Platelet Count 189 X10*3/uL (160-400); Red Blood Count 3.81 X10*6/uL (4.20-5.50); Red Cell Distribution Width 13.4 % (11.0-16.0); White Blood Count 7.2 X10*3/uL (4.8-10.8)
[2024-11-28 06:26] LABS: Alanine Aminotransferase 8 U/L (0-31); Albumin Level 3.6 g/dL (3.5-5.0); Alkaline Phosphatase 60 U/L (39-117); Anion Gap 9 (12-20); Aspartate Amino Transferase 20 U/L (5-31); Bilirubin Total 0.9 mg/dL (0.0-1.0); Blood Urea Nitrogen 15 mg/dL (9-16); Calcium 9.7 mg/dL (8.4-10.2); Carbon Dioxide 25 mmol/L (22-29); Chloride 102 mmol/L (96-108); Creatinine Clr Calc Pharmacy 56.4; Estimated Glomerular Filt Rate > 60; Glucose Random 131 mg/dL (60-115); Sodium 132 mmol/L (135-145); Total Protein 8.6 g/dL (6.5-8.0)
--- NOTE | 2024-11-28 06:26 | PC.NURSE ---
oob to bathroom, assisted back into back, no sign of distress.
[2024-11-28] MEDS: atenoloL 25 MG TABLET 37.5 MG PO (08:17)
[2024-11-28] MEDS: bisacodyL 10 MG SUPP.RECT PR (08:18)
[2024-11-28] MEDS: Apixaban 5 MG TABLET PO ×2 (08:18→19:35)
[2024-11-28] MEDS: Cholecalciferol (Vitamin D3) 25 MCG TABLET PO (08:18)
[2024-11-28] MEDS: lisinopriL 20 MG TABLET PO ×2 (08:18→19:35)
--- NOTE | 2024-11-28 10:11 | PM.EVENT ---
Event Note Date of Service: 12/02/24 Event Note: [facility] Note: Pt admitted for diverticulitis. Initial determination completed and patient is observation appropriate. Case discussed with attending physician who is in agreement. Time Spent With Patient Time: Total time managing care of this patient today ____ minutes.
--- NOTE | 2024-11-28 10:13 | P.CNHO_ITS ---
Subjective - Subjective Chief complaint: Low back pain Patient: new to practice Consult date: 11/28/24 Primary Care Provider: Krista Allen MD Nutritional Services Host Utilized?: No - Northern Irish Speaking HPI - Consult Narrative Reason for consult: Multiple myeloma Narrative: Yesenia Fisher is a 83 year old female with past medical history significant for hypertension, atrial fibrillation on Eliquis who presented with back pain that has been going on for about a month. She says pain was like a spasm and she also reported increasing constipation. She has not been taking any narcotic pain medication. No loss of appetite or unexplained weight loss. No fever or chills. She has no history of bone fractures. She was noted to have elevated total protein, serum immunofixation in October showed IgG kappa monoclonal spike with total IgG of 3.6 g with suppression of IgA and IgM levels. She had an appointment in Oncology today for further evaluation. There is no family history of multiple myeloma. Patient was treated for right breast cancer about 30 years ago with mastectomy and hormone therapy with tamoxifen. 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 She lives alone but her children live close by. She has 3 children. Review of Systems - Constitutional Reports as per HPI, Denies fatigue, Denies lack of energy, Denies malaise, Denies weight loss - Cardiovascular Denies chest pain with activity, Denies fast heart rate - Respiratory Reports no additional respiratory complaints - Gastrointestinal Reports no additional gastrointestinal complaints [facility] Medical History: Medical History (Last Reviewed 11/27/24 @ 16:33 by Lorin Lundberg MD) Annual physical exam Arrhythmia Atrial fibrillation with RVR Bradycardia Dysplastic nevus Dysuria Hyperglycemia Hyperlipidemia Hypertension Impacted cerumen of both ears Leukoplakia of tongue Palpitations Peripheral neuropathy Tachycardia Vitamin D deficiency Family History: Family History (Last Reviewed 11/27/24 @ 16:33 by Lorin Lundberg MD) Father No problems noted. Mother No problems noted. Son Diabetes Surgical History: Surgical History (Last Reviewed 11/27/24 @ 16:33 by Lorin Lundberg MD) H/O colonoscopy H/O mastectomy Social History: Social History (Last Reviewed 11/27/24 @ 16:33 by Lorin Lundberg MD) Living Situation History: Household Members: None Household Members Other:: lives alone, independent, daughter lives close Housing: House Do you presently have visiting nurse or other home services: No Alcohol History Details: 1. How often do you have a drink containing alcohol?: a. Never Tobacco History: Patient Tobacco Use Status: Never used Tobacco Smoked in Last 30 Days: No e-Cigarette/Vaping Use: Never Used Second Hand Smoke Exposure: No Substance Use History: Use of substances other than those prescribed or required for medical reasons : No Advance Directives: Advance Directives: No Advance Directives Information Provided: Yes Homicidal Assessment: Do you have a plan to hurt others: No Plan Occupation Assessmet: service: No Current occupational status: retired Home Medications and Allergies Current Medications: Current Medications Acetaminophen (Acetaminophen 325 Mg Tablet) 650 mg PO Q6H PRN PRN Reason: Pain, Mild 1-3,fever,headache Apixaban (Apixaban 5 Mg Tablet) 5 mg PO BID [facility] Last Admin: 11/28/24 08:18 Dose: 5 mg Aspirin (Aspirin Enteric Coated 81 Mg Tablet.Dr) 81 mg PO BEDTIME [facility] Atenolol (Atenolol 25 Mg Tablet) 37.5 mg PO DAILY [facility]; Protocol Last Admin: 11/28/24 08:17 Dose: 37.5 mg Atorvastatin Calcium (Atorvastatin Calcium 10 Mg Tablet) 10 mg PO BEDTIME [facility] Calcium Carbonate (Calcium Carbonate 750 Mg Tab.Chew) 750 mg PO Q4H PRN PRN Reason: Heartburn Hydromorphone HCl (Hydromorphone Hcl 0.5 Mg/0.5 Ml Syringe) 0.5 mg IVPUSH Q4H PRN; Protocol PRN Reason: Pain, Severe (Pain Scale 7-10) Last Admin: 11/28/24 01:45 Dose: 0.5 mg Piperacillin Sod/Tazobactam (Sod 3.375 gm/ Sodium Chloride) 50 mls @ 100 mls/hr IV Q6H [facility] Last Infusion: 11/28/24 08:49 Dose: Infused Lisinopril (Lisinopril 20 Mg Tablet) 20 mg PO BID [facility]; Protocol Last Admin: 11/28/24 08:18 Dose: 20 mg Lorazepam (Lorazepam 0.5 Mg Tablet) 0.5 mg PO BEDTIME PRN PRN Reason: Anxiety Lorazepam (Lorazepam 0.5 Mg Tablet) 0.5 mg PO BEDTIME PRN PRN Reason: Sleep/Restlessness Magnesium Hydroxide (Milk Of Magnesia 30 Ml Oral.Susp) 30 ml PO DAILY PRN PRN Reason: Constipation Melatonin (Melatonin 3 Mg Tablet) 6 mg PO BEDTIME PRN PRN Reason: Insomnia Sodium Chloride (0.9 % Sodium Chloride Flush 3 Ml Syringe) 3 ml IVFLUSH QSHIFT [facility] Last Admin: 11/28/24 07:29 Dose: Not Given Vitamin D (Cholecalciferol (Vitamin D3) 25 Mcg Tablet) 25 mcg PO DAILY [facility] Last Admin: 11/28/24 08:18 Dose: 25 mcg Home Medications ?Medication ?Instructions ?Recorded ?Confirmed ?Type acetaminophen 500 mg tablet 1,000 mg PO BID PRN Back Pain 11/17/24 11/27/24 History aspirin 81 mg tablet,delayed 81 mg PO BEDTIME 11/17/24 11/27/24 History release cholecalciferol (vitamin D3) 25 25 mcg PO DAILY 11/17/24 11/27/24 History mcg (1,000 unit) capsule (Vitamin D3) lorazepam 0.5 mg tablet 0.5 mg PO BEDTIME PRN 11/17/24 11/27/24 History Sleep/Restlessness simvastatin 20 mg tablet 20 mg PO BEDTIME 11/17/24 11/27/24 History Allergies Allergy/AdvReac Type Severity Reaction Status Date / Time hydralazine Allergy Unknown Verified 11/27/24 13:26 pantoprazole Allergy Unknown Verified 11/27/24 13:26 hydrochlorothiazide AdvReac Intermediate Palpitation Verified 11/27/24 13:26 s amlodipine AdvReac DIZZINESS Verified 11/27/24 13:26 sotalol AdvReac Palpitation Verified 11/27/24 13:26 s Physical Exam Vital signs: Vital Signs Temp 98.4 F 11/28/24 06:42 Pulse 60 11/28/24 09:31 Resp 14 11/28/24 09:31 BP 168/74 H 11/28/24 09:31 Pulse Ox 97 11/28/24 09:31 O2 Del Method Room Air 11/28/24 09:31 Intake & Output 11/27/24 11/28/24 11/28/24 18:59 06:59 18:59 Intake Total 1100 / 1100 600 / 600 Balance 1100 / 1100 600 / 600 Intake: Intake, IV Amount 1100 / 1100 600 / 600 0.9 % Sodium Chloride 1,000 ml 1000 / 1000 @ 999 mls/hr IV .Q1H1M ONE Rx#: [id number] Piperacillin Sodium/Tazobactam 100 / 100 50 / 50 3.375 gm In 0.9 % Sodium Chloride 50 ml @ 100 mls/hr IV Q6H [facility] Rx#:[id number] Dextrose 5 % and 0.45 % NaCl 1, 550 / 550 000 ml @ 50 mls/hr IVCONT .Q20H [facility] Rx#:[id number] Other: Weight 72.575 kg Weight 72.575 kg - Constitutional Present: no acute distress - Routine HEENT Exam Head: Present: normal inspection Eye: Present: EOMI, PERRL - Routine Neck Exam Present: supple. Absent: lymphadenopathy - Routine Respiratory Exam Present: CTAB. Absent: accessory muscle use - Routine Cardiovascular Exam Cardiovascular: Present: RRR, S1, S2 - Routine Abdominal Exam Present: soft - Routine Extremities Exam Absent: calf tenderness Hem/Onc Consult Result - Labs CBC & Chem 7: 11/28/24 05:08 11/28/24 05:08 Labs: Short CBC 11/27/24 11/28/24 Range/Units 17:15 05:08 WBC 8.4 7.2 (4.8-10.8) X10*3/uL Hgb 13.2 11.8 L (12.0-16.0) g/dl Hct 39.4 34.9 L (37.0-47.0) % Plt Count 228 189 (160-400) X10*3/uL BMP 11/27/24 11/28/24 17:15 05:08 Sodium 132 L 132 L Potassium 4.2 4.0 Chloride 101 102 Carbon Dioxide 23 25 BUN 15 15 Creatinine 0.77 0.74 Calcium 10.8 H 9.7 D Liver Function 11/27/24 11/28/24 Range/Units 17:15 05:08 Total Bilirubin 0.9 0.9 (0.0-1.0) mg/dL Direct Bilirubin 0.4 (0.0-0.5) mg/dL AST 21 20 (5-31) U/L ALT 9 8 (0-31) U/L Alkaline Phosphatase 71 60 (39-117) U/L Albumin 4.1 3.6 (3.5-5.0) g/dL Urine 11/27/24 Range/Units 21:46 Urine Color Yellow Urine Appearance Clear Urine pH 6.0 (5.0-9.0) Ur Specific [place] >= 1.030 H (1.005-1.025) Urine Protein Negative (Neg-Trace) mg/dL Urine Glucose (UA) Negative (Negative) mg/dL Assessment and Plan Patient Active problem list reviewed?: Yes (1) Multiple myeloma Status: Acute Assessment and plan: 1. This is a 83-year-old woman with IgG kappa multiple myeloma. She presented with back pain and CT abdomen/pelvis with IV contrast shows diffuse mottled osteopenic appearance of bones. Few possible discrete lytic lesions were noted. She does not have significant anemia or renal dysfunction. Her calcium level is mildly elevated. She is on vitamin-D supplementation. MRI of T/L/S spine is recommended for further evaluation. Bone marrow aspiration/biopsy for definitive diagnosis and prognostication. I would recommend pain management and discharge for outpatient follow-up. I thank you for this consultation. - Time Spent With Patient Time Spent with Patient (in minutes): 20 Additional Coding: - Additional E/M codes Complex E/M visit Add On: CPT G2211
[2024-11-28 11:08] LABS: Lactate Dehydrogenase 157 U/L (122-220)
--- NOTE | 2024-11-28 11:13 | MHC.CM.PN ---
PT REPORTS SHE LIVES ALONE AND IS INDEPENDENT WITH CARE SHE HAS NO DME AND NO HOME SERVICES SHE SAYS HER DAUGHTER IS HER HCP, COPY REQUESTED PCP: ISABELA MARQUEZ OBSERVATION NOTICE DELIVERED DCP: HOME NO SERVICES VIA PRIVATE TRANSPORT
[2024-11-28] MEDS: Mineral OiL enema 133 ML ENEMA PR (11:20)
--- NOTE | 2024-11-28 11:26 | PC.NURSE ---
Per Hospitalist, Pt may be eligible for d/c if tolerates PO well and has adequate BM. Mineral oil administered per NOV--Pt tolerated procedure well. Bedside commode provided for safety. Pt continues to report GI upset. Dispo pending
--- NOTE | 2024-11-28 14:47 | HO.PM.IMPN ---
Subjective Subjective Date of Service: 11/28/24 Interval History: small bm, only tolerated half lunch Physical Exam Vital Signs: Vital Signs: Last Vital Signs Temp 98.2 F 11/28/24 12:22 Pulse 60 11/28/24 12:22 Resp 18 11/28/24 12:22 BP 188/81 H 11/28/24 12:22 Pulse Ox 95 11/28/24 12:22 O2 Del Method Room Air 11/28/24 12:22 BMI result Body Mass Index 26.6 General: AO X 3, no acute distress Resp: CTA bilateral, no accessory muscles used CVS: S1,S2,RRR GI: soft, non tender, non distended Neuro: motor grossly intact, alert Psych: appropriate affect, appropriate insight Objective Data Active Medications Acetaminophen (Acetaminophen 325 Mg Tablet) 650 mg PO Q6H PRN PRN Reason: Pain, Mild 1-3,fever,headache Apixaban (Apixaban 5 Mg Tablet) 5 mg PO BID [facility] Last Admin: 11/28/24 08:18 Dose: 5 mg Documented By: QING Aspirin (Aspirin Enteric Coated 81 Mg Tablet.Dr) 81 mg PO BEDTIME [facility] Atenolol (Atenolol 25 Mg Tablet) 37.5 mg PO DAILY [facility]; Protocol Last Admin: 11/28/24 08:17 Dose: 37.5 mg Documented By: QING Atorvastatin Calcium (Atorvastatin Calcium 10 Mg Tablet) 10 mg PO BEDTIME [facility] Calcium Carbonate (Calcium Carbonate 750 Mg Tab.Chew) 750 mg PO Q4H PRN PRN Reason: Heartburn Hydromorphone HCl (Hydromorphone Hcl 0.5 Mg/0.5 Ml Syringe) 0.5 mg IVPUSH Q4H PRN; Protocol PRN Reason: Pain, Severe (Pain Scale 7-10) Last Admin: 11/28/24 12:48 Dose: 0.5 mg Documented By: QING Piperacillin Sod/Tazobactam (Sod 3.375 gm/ Sodium Chloride) 50 mls @ 100 mls/hr IV Q6H [facility] Last Infusion: 11/28/24 08:49 Dose: Infused Documented By: QING Lisinopril (Lisinopril 20 Mg Tablet) 20 mg PO BID [facility]; Protocol Last Admin: 11/28/24 08:18 Dose: 20 mg Documented By: QING Lorazepam (Lorazepam 0.5 Mg Tablet) 0.5 mg PO BEDTIME PRN PRN Reason: Anxiety Lorazepam (Lorazepam 0.5 Mg Tablet) 0.5 mg PO BEDTIME PRN PRN Reason: Sleep/Restlessness Magnesium Hydroxide (Milk Of Magnesia 30 Ml Oral.Susp) 30 ml PO DAILY PRN PRN Reason: Constipation Melatonin (Melatonin 3 Mg Tablet) 6 mg PO BEDTIME PRN PRN Reason: Insomnia Ondansetron HCl (Ondansetron Hcl 4 Mg/2 Ml Vial) 4 mg IVPUSH Q6H PRN PRN Reason: Nausea Sodium Chloride (0.9 % Sodium Chloride Flush 3 Ml Syringe) 3 ml IVFLUSH QSHIFT [facility] Last Admin: 11/28/24 07:29 Dose: Not Given Documented By: QING Non-Admin Reason: IV Running Vitamin D (Cholecalciferol (Vitamin D3) 25 Mcg Tablet) 25 mcg PO DAILY [facility] Last Admin: 11/28/24 08:18 Dose: 25 mcg Documented By: QING Labs 11/28/24 05:08 11/28/24 05:08 Labs: Laboratory Results - last 24 hr 11/27/24 11/27/24 11/28/24 17:15 21:46 05:08 MCV 91.2 91.6 MCH 30.6 31.0 MCHC 33.5 33.8 RDW 13.2 13.4 Plt Count 228 189 MPV 10.2 10.7 Immature Gran % (Auto) 0.2 0.3 Neut % (Auto) 48.0 68.6 Lymph % (Auto) 39.3 22.1 [place] % (Auto) 11.4 H 8.0 Eos % (Auto) 0.9 0.6 Baso % (Auto) 0.2 0.4 Lymph # (Auto) 3.3 1.6 [place] # (Auto) 1.0 0.6 Eos # (Auto) 0.1 0.0 Baso # (Auto) 0.0 0.0 Abs Immat Gran (auto) 0.02 0.02 Absolute Neuts (auto) 4.0 5.0 Absolute Nucleated RBC 0.000 0.000 Nucleated RBC % (auto) 0.0 0.0 Anion Gap 12 9 L Estim Creat Clear Calc 54.2 56.4 Estimated GFR > 60 > 60 Random Glucose 103 131 H Calcium 10.8 H 9.7 D Total Bilirubin 0.9 0.9 Direct Bilirubin 0.4 AST 21 20 ALT 9 8 Alkaline Phosphatase 71 60 Lactate Dehydrogenase Total Protein 10.0 H 8.6 H Albumin 4.1 3.6 Lipase 19 Urine Color Yellow Urine Appearance Clear Urine pH 6.0 Ur Specific [place] >= 1.030 H Urine Protein Negative Urine Glucose (UA) Negative Urine Ketones Trace Urine Blood Negative Urine Nitrite Negative Ur Leukocyte Esterase Negative 11/28/24 10:45 MCV MCH MCHC RDW Plt Count MPV Immature Gran % (Auto) Neut % (Auto) Lymph % (Auto) [place] % (Auto) Eos % (Auto) Baso % (Auto) Lymph # (Auto) [place] # (Auto) Eos # (Auto) Baso # (Auto) Abs Immat Gran (auto) Absolute Neuts (auto) Absolute Nucleated RBC Nucleated RBC % (auto) Anion Gap Estim Creat Clear Calc Estimated GFR Random Glucose Calcium Total Bilirubin Direct Bilirubin AST ALT Alkaline Phosphatase Lactate Dehydrogenase 157 Total Protein Albumin Lipase Urine Color Urine Appearance Urine pH Ur Specific [place] Urine Protein Urine Glucose (UA) Urine Ketones Urine Blood Urine Nitrite Ur Leukocyte Esterase Assessment and Plan (1) A-fib: Status: Acute Plan 83F PMH MM, htn, pafib on eliquis, hld presented with back pain, found to have constipation and sigmoid divertiuclitis acute sigmoid diverticulitis continue zosyn, advance diet as tolerated constipation continue bowel regimen back pain due to MM with lytic lesions oncology following pafib eliquis, atenolol htn lisinopril dvt prophylaxis - eliquis full code reason for continued hospitalization:no bm, abd pain Quality Stroke Does the patient have a stroke diagnosis?: No VTE Prior VTE?: No VTE Risk Level:: Medical - moderate - high VTE Device Contraindication: Patient Refused VTE Drug Contraindication: N/A - Med Ordered
[2024-11-28] MEDS: ondansetron HCL 4 MG/2 ML VIAL IVPUSH (14:58)
[2024-11-28] MEDS: 0.9 % Sodium Chloride Flush 3 ML SYRINGE IVFLUSH ×2 (15:12→19:37)
[2024-11-28] MEDS: Atorvastatin Calcium 10 MG TABLET PO (19:35)
[2024-11-28] MEDS: Aspirin Enteric Coated 81 MG TABLET.DR PO (19:35)
[2024-11-29] VITALS (7 sets, daily range): BP systolic 99–137; BP diastolic 56–70; PULSE 69–110; RESP 16–18; TEMP 36–36.8; O2SAT 94–95
[2024-11-29] MEDS: Piperacillin Sodium/Tazobactam 3.375 GM in 0.9 % Sodium Chloride 50 ML IV ×4 (02:00→20:39)
[2024-11-29] MEDS: LORazepam 0.5 MG TABLET PO ×2 (02:05→20:38)
[2024-11-29] MEDS: HYDROmorphone HCl 0.5 MG/0.5 ML SYRINGE IVPUSH ×4 (02:38→20:39)
[2024-11-29 06:52] LABS: Hematocrit 34.9 % (37.0-47.0); Hemoglobin 11.6 g/dl (12.0-16.0); Mean Corpuscular HGB Conc 33.2 g/dl (31.0-35.0); Mean Corpuscular Hemoglobin 30.4 pg (27.0-33.0); Mean Corpuscular Volume 91.4 fL (80.0-98.0); Mean Platelet Volume 10.8 fL (9.4-12.3); Platelet Count 202 X10*3/uL (160-400); Red Blood Count 3.82 X10*6/uL (4.20-5.50); Red Cell Distribution Width 13.3 % (11.0-16.0); White Blood Count 7.7 X10*3/uL (4.8-10.8)
[2024-11-29 07:06] LABS: Anion Gap 8 (12-20); Blood Urea Nitrogen 16 mg/dL (9-16); Calcium 10.1 mg/dL (8.4-10.2); Carbon Dioxide 28 mmol/L (22-29); Chloride 100 mmol/L (96-108); Creatinine Clr Calc Pharmacy 50.9; Estimated Glomerular Filt Rate > 60; Glucose Random 104 mg/dL (60-115); Potassium 4.1 mmol/L (3.3-5.1); Sodium 132 mmol/L (135-145)
[2024-11-29] MEDS: lisinopriL 20 MG TABLET PO ×2 (08:05→20:38)
[2024-11-29] MEDS: 0.9 % Sodium Chloride Flush 3 ML SYRINGE IVFLUSH ×2 (08:06→14:22)
[2024-11-29] MEDS: Apixaban 5 MG TABLET PO ×2 (08:06→20:38)
[2024-11-29] MEDS: Cholecalciferol (Vitamin D3) 25 MCG TABLET PO (08:06)
[2024-11-29] MEDS: atenoloL 25 MG TABLET 37.5 MG PO (08:06)
--- NOTE | 2024-11-29 10:44 | HO.PM.IMPN ---
Subjective Subjective Date of Service: 11/29/24 Interval History: larger bm, still with abd and back pain Physical Exam Vital Signs: Vital Signs: Last Vital Signs Temp 97.1 F 11/29/24 07:07 Pulse 110 H 11/29/24 08:06 Resp 17 11/29/24 07:07 BP 127/60 11/29/24 07:07 Pulse Ox 95 11/29/24 07:07 O2 Del Method Room Air 11/29/24 07:07 BMI result Body Mass Index 26.6 General: AO X 3, no acute distress Resp: CTA bilateral, no accessory muscles used CVS: S1,S2,RRR GI: soft, non tender, non distended Neuro: motor grossly intact, alert Psych: appropriate affect, appropriate insight Objective Data Active Medications Acetaminophen (Acetaminophen 325 Mg Tablet) 650 mg PO Q6H PRN PRN Reason: Pain, Mild 1-3,fever,headache Apixaban (Apixaban 5 Mg Tablet) 5 mg PO BID [facility] Last Admin: 11/29/24 08:06 Dose: 5 mg Documented By: JASMYN Aspirin (Aspirin Enteric Coated 81 Mg Tablet.Dr) 81 mg PO BEDTIME [facility] Last Admin: 11/28/24 19:35 Dose: 81 mg Documented By: GILBERTO Atenolol (Atenolol 25 Mg Tablet) 37.5 mg PO DAILY [facility]; Protocol Last Admin: 11/29/24 08:06 Dose: 37.5 mg Documented By: JASMYN Atorvastatin Calcium (Atorvastatin Calcium 10 Mg Tablet) 10 mg PO BEDTIME [facility] Last Admin: 11/28/24 19:35 Dose: 10 mg Documented By: GILBERTO Calcium Carbonate (Calcium Carbonate 750 Mg Tab.Chew) 750 mg PO Q4H PRN PRN Reason: Heartburn Hydromorphone HCl (Hydromorphone Hcl 0.5 Mg/0.5 Ml Syringe) 0.5 mg IVPUSH Q4H PRN; Protocol PRN Reason: Pain, Severe (Pain Scale 7-10) Last Admin: 11/29/24 08:07 Dose: 0.5 mg Documented By: JASMYN Piperacillin Sod/Tazobactam (Sod 3.375 gm/ Sodium Chloride) 50 mls @ 100 mls/hr IV Q6H [facility] Last Infusion: 11/29/24 09:02 Dose: Infused Documented By: JASMYN Lisinopril (Lisinopril 20 Mg Tablet) 20 mg PO BID [facility]; Protocol Last Admin: 11/29/24 08:05 Dose: 20 mg Documented By: JASMYN Lorazepam (Lorazepam 0.5 Mg Tablet) 0.5 mg PO BEDTIME PRN PRN Reason: Anxiety Last Admin: 11/29/24 02:05 Dose: 0.5 mg Documented By: GILBERTO Lorazepam (Lorazepam 0.5 Mg Tablet) 0.5 mg PO BEDTIME PRN PRN Reason: Sleep/Restlessness Magnesium Hydroxide (Milk Of Magnesia 30 Ml Oral.Susp) 30 ml PO DAILY PRN PRN Reason: Constipation Melatonin (Melatonin 3 Mg Tablet) 6 mg PO BEDTIME PRN PRN Reason: Insomnia Ondansetron HCl (Ondansetron Hcl 4 Mg/2 Ml Vial) 4 mg IVPUSH Q6H PRN PRN Reason: Nausea Last Admin: 11/28/24 14:58 Dose: 4 mg Documented By: QING Sodium Chloride (0.9 % Sodium Chloride Flush 3 Ml Syringe) 3 ml IVFLUSH QSHIFT [facility] Last Admin: 11/29/24 08:06 Dose: 3 ml Documented By: JASMYN Vitamin D (Cholecalciferol (Vitamin D3) 25 Mcg Tablet) 25 mcg PO DAILY [facility] Last Admin: 11/29/24 08:06 Dose: 25 mcg Documented By: JASMYN Labs 11/29/24 06:02 11/29/24 06:02 Labs: Laboratory Results - last 24 hr 11/28/24 11/29/24 10:45 06:02 MCV 91.4 MCH 30.4 MCHC 33.2 RDW 13.3 Plt Count 202 MPV 10.8 Absolute Nucleated RBC 0.000 Nucleated RBC % (auto) 0.0 Anion Gap 8 L Estim Creat Clear Calc 50.9 Estimated GFR > 60 Random Glucose 104 Calcium 10.1 Lactate Dehydrogenase 157 Microbiology Microbiology Results: Microbiology 11/27/24 22:04 Blood Culture - Preliminary Blood - Venous No growth after 24 hours. 11/27/24 21:25 Blood Culture - Preliminary Blood - Venous No growth after 24 hours. Assessment and Plan (1) A-fib: Status: Acute Plan 83F PMH MM, htn, pafib on eliquis, hld presented with back pain, found to have constipation and sigmoid divertiuclitis acute sigmoid diverticulitis continue zosyn, advance diet as tolerated constipation Resolved back pain due to MM with lytic lesions oncology following pafib with rvr eliquis, atenolol htn lisinopril dvt prophylaxis - eliquis full code reason for continued hospitalization: abd pain Quality Stroke Does the patient have a stroke diagnosis?: No VTE Prior VTE?: No VTE Risk Level:: Medical - moderate - high VTE Device Contraindication: Patient Refused VTE Drug Contraindication: N/A - Med Ordered
[2024-11-29] MEDS: Milk of Magnesia 30 ML ORAL.SUSP PO (13:18)
[2024-11-29] MEDS: Aspirin Enteric Coated 81 MG TABLET.DR PO (20:38)
[2024-11-29] MEDS: Atorvastatin Calcium 10 MG TABLET PO (20:38)
[2024-11-30 03:27] VITALS: BP 117/66; PULSE 85; RESP 14; TEMP 36.3; O2SAT 95
[2024-11-30] MEDS: Piperacillin Sodium/Tazobactam 3.375 GM in 0.9 % Sodium Chloride 50 ML IV ×4 (04:06→20:27)
[2024-11-30] MEDS: HYDROmorphone HCl 0.5 MG/0.5 ML SYRINGE IVPUSH ×2 (04:21→20:25)
[2024-11-30 07:39] VITALS: BP 139/60; PULSE 91; RESP 12; TEMP 36.7; O2SAT 97
[2024-11-30] MEDS: Cholecalciferol (Vitamin D3) 25 MCG TABLET PO (08:10)
[2024-11-30] MEDS: Apixaban 5 MG TABLET PO ×2 (08:10→20:26)
[2024-11-30] MEDS: lisinopriL 20 MG TABLET PO ×2 (08:10→20:26)
[2024-11-30] MEDS: atenoloL 25 MG TABLET 37.5 MG PO (08:10)
[2024-11-30] MEDS: atenoloL 25 MG TABLET 12.5 MG PO (09:43)
--- NOTE | 2024-11-30 09:49 | HO.PM.IMPN ---
Subjective Subjective Date of Service: 11/30/24 Interval History: still with pain Physical Exam Vital Signs: Vital Signs: Last Vital Signs Temp 98.0 F 11/30/24 07:39 Pulse 91 11/30/24 07:39 Resp 12 11/30/24 07:39 BP 139/60 11/30/24 07:39 Pulse Ox 97 11/30/24 07:39 O2 Del Method Room Air 11/30/24 07:39 BMI result Body Mass Index 26.6 General: AO X 3, no acute distress Resp: CTA bilateral, no accessory muscles used CVS: S1,S2,RRR GI: soft, non tender, non distended Neuro: motor grossly intact, alert Psych: appropriate affect, appropriate insight Objective Data Active Medications Acetaminophen (Acetaminophen 325 Mg Tablet) 650 mg PO Q6H PRN PRN Reason: Pain, Mild 1-3,fever,headache Apixaban (Apixaban 5 Mg Tablet) 5 mg PO BID [facility] Last Admin: 11/30/24 08:10 Dose: 5 mg Documented By: MELISSA Aspirin (Aspirin Enteric Coated 81 Mg Tablet.) 81 mg PO BEDTIME [facility] Last Admin: 11/29/24 20:38 Dose: 81 mg Documented By: GILBERTO Atenolol (Atenolol 50 Mg Tablet) 50 mg PO DAILY [facility]; Protocol Atorvastatin Calcium (Atorvastatin Calcium 10 Mg Tablet) 10 mg PO BEDTIME [facility] Last Admin: 11/29/24 20:38 Dose: 10 mg Documented By: GILBERTO Calcium Carbonate (Calcium Carbonate 750 Mg Tab.Chew) 750 mg PO Q4H PRN PRN Reason: Heartburn Hydromorphone HCl (Hydromorphone Hcl 0.5 Mg/0.5 Ml Syringe) 0.5 mg IVPUSH Q4H PRN; Protocol PRN Reason: Pain, Severe (Pain Scale 7-10) Last Admin: 11/30/24 04:21 Dose: 0.5 mg Documented By: GILBERTO Piperacillin Sod/Tazobactam (Sod 3.375 gm/ Sodium Chloride) 50 mls @ 100 mls/hr IV Q6H [facility] Last Infusion: 11/30/24 08:46 Dose: Infused Documented By: MELISSA Lisinopril (Lisinopril 20 Mg Tablet) 20 mg PO BID [facility]; Protocol Last Admin: 11/30/24 08:10 Dose: 20 mg Documented By: MELISSA Lorazepam (Lorazepam 0.5 Mg Tablet) 0.5 mg PO BEDTIME PRN PRN Reason: Anxiety Last Admin: 11/29/24 02:05 Dose: 0.5 mg Documented By: GILBERTO Lorazepam (Lorazepam 0.5 Mg Tablet) 0.5 mg PO BEDTIME PRN PRN Reason: Sleep/Restlessness Last Admin: 11/29/24 20:38 Dose: 0.5 mg Documented By: GILBERTO Magnesium Hydroxide (Milk Of Magnesia 30 Ml Oral.Susp) 30 ml PO DAILY PRN PRN Reason: Constipation Last Admin: 11/29/24 13:18 Dose: 30 ml Documented By: JASMYN Melatonin (Melatonin 3 Mg Tablet) 6 mg PO BEDTIME PRN PRN Reason: Insomnia Ondansetron HCl (Ondansetron Hcl 4 Mg/2 Ml Vial) 4 mg IVPUSH Q6H PRN PRN Reason: Nausea Last Admin: 11/28/24 14:58 Dose: 4 mg Documented By: QING Sodium Chloride (0.9 % Sodium Chloride Flush 3 Ml Syringe) 3 ml IVFLUSH QSHIFT [facility] Last Admin: 11/30/24 08:12 Dose: Not Given Documented By: MELISSA Non-Admin Reason: IV Running Vitamin D (Cholecalciferol (Vitamin D3) 25 Mcg Tablet) 25 mcg PO DAILY [facility] Last Admin: 11/30/24 08:10 Dose: 25 mcg Documented By: MELISSA Labs 11/29/24 06:02 11/29/24 06:02 Microbiology Microbiology Results: Microbiology 11/27/24 22:04 Blood Culture - Preliminary Blood - Venous No growth after 48 hours. 11/27/24 21:25 Blood Culture - Preliminary Blood - Venous No growth after 48 hours. Assessment and Plan (1) A-fib: Status: Acute Plan 83F PMH MM, htn, pafib on eliquis, hld presented with back pain, found to have constipation and sigmoid divertiuclitis acute sigmoid diverticulitis continue zosyn, advance diet as tolerated constipation Resolved back pain due to MM with lytic lesions oncology following pafib with rvr eliquis, atenolol increased to 50mg daily htn lisinopril dvt prophylaxis - eliquis full code reason for continued hospitalization: abd pain Quality Stroke Does the patient have a stroke diagnosis?: No VTE Prior VTE?: No VTE Risk Level:: Medical - moderate - high VTE Device Contraindication: Patient Refused VTE Drug Contraindication: N/A - Med Ordered
[2024-11-30 11:44] VITALS: BP 113/60; PULSE 60; RESP 18; TEMP 36.3; O2SAT 94
[2024-11-30 15:35] VITALS: BP 138/72; PULSE 61; RESP 16; TEMP 36.6; O2SAT 97
[2024-11-30 19:15] VITALS: BP 147/68; PULSE 67; RESP 18; TEMP 36.7; O2SAT 95
[2024-11-30] MEDS: Atorvastatin Calcium 10 MG TABLET PO (20:26)
[2024-11-30] MEDS: Aspirin Enteric Coated 81 MG TABLET.DR PO (20:26)
[2024-11-30] MEDS: LORazepam 0.5 MG TABLET PO (22:16)
[2024-12-01] VITALS: BP 121/58; PULSE 57; RESP 18; TEMP 36.8; O2SAT 96
[2024-12-01] MEDS: Piperacillin Sodium/Tazobactam 3.375 GM in 0.9 % Sodium Chloride 50 ML IV ×3 (02:39→13:58)
[2024-12-01 03:15] VITALS: BP 102/56; PULSE 53; RESP 16; TEMP 37.1; O2SAT 93
[2024-12-01 07:06] LABS: Hematocrit 34.2 % (37.0-47.0); Hemoglobin 11.4 g/dl (12.0-16.0); Mean Corpuscular HGB Conc 33.3 g/dl (31.0-35.0); Mean Corpuscular Hemoglobin 30.7 pg (27.0-33.0); Mean Corpuscular Volume 92.2 fL (80.0-98.0); Mean Platelet Volume 10.7 fL (9.4-12.3); Platelet Count 202 X10*3/uL (160-400); Red Blood Count 3.71 X10*6/uL (4.20-5.50); Red Cell Distribution Width 13.4 % (11.0-16.0); White Blood Count 7.5 X10*3/uL (4.8-10.8)
[2024-12-01 07:23] LABS: Anion Gap 8 (12-20); Blood Urea Nitrogen 16 mg/dL (9-16); Calcium 9.7 mg/dL (8.4-10.2); Carbon Dioxide 29 mmol/L (22-29); Chloride 101 mmol/L (96-108); Creatinine Clr Calc Pharmacy 52.9; Estimated Glomerular Filt Rate > 60; Glucose Random 95 mg/dL (60-115); Potassium 4.1 mmol/L (3.3-5.1); Sodium 134 mmol/L (135-145)
[2024-12-01] MEDS: 0.9 % Sodium Chloride Flush 3 ML SYRINGE IVFLUSH (07:25)
[2024-12-01 07:28] VITALS: BP 125/70
[2024-12-01] MEDS: Apixaban 5 MG TABLET PO (07:28)
[2024-12-01] MEDS: lisinopriL 20 MG TABLET PO (07:28)
[2024-12-01] MEDS: Cholecalciferol (Vitamin D3) 25 MCG TABLET PO (07:28)
[2024-12-01 07:29] VITALS: BP 125/70; PULSE 54
[2024-12-01] MEDS: atenoloL 50 MG TABLET PO (07:29)
[2024-12-01] MEDS: Acetaminophen 325 MG TABLET 650 MG PO (07:31)
[2024-12-01 07:47] VITALS: BP 125/70; PULSE 54; RESP 20; TEMP 36.8; O2SAT 93
[2024-12-01 08:39] LABS: Kappa Light Chain, Free Serum 471.3 mg/L (3.3-19.4); Kappa/Lambda Lt Ch Free Ratio 90.63 (0.26-1.65); Lambda Light Chain, Free Serum 5.2 mg/L (5.7-26.3)
--- NOTE | 2024-12-01 09:48 | P.DS_ITS ---
DS: Providers Provider Date of Service: 12/01/24 Date of admission: 11/27/24 20:35 Date of discharge: 12/01/24 Primary care physician: Krista Allen MD Consults: 11/27/24 20:57 Consult to Hematology / Oncology Routine Consulting Provider: [facility] [place]/Hematology Reason for consultation: lytic bone lesions; high protein DS: Diagnosis Discharge Diagnosis (1) A-fib: Status: Acute DS: Summary Hospital Course Hospital Course: from initial hpi: 83-year-old female with a past medical history of HTN, HLD, AFib on Eliquis presented to the hospital with a chief complaint back pain. Patient reports that over the past 4 weeks she has been having back pain which has been gradually worsening. Over the past 2 days has increased back pain limiting her activities. Reports mild lower abdominal pain as well. Reports feeling constipated. Reports passing gas. Denies any nausea or vomiting. Denies any fevers and chills. Denies any chest pain or palpitations. Denies any numbness tingling or focal weakness. Denies any bowel incontinence or urinary retention. Denies any falls or injury. Review of all other systems is negative except mentioned above ER course: Per ER team, patient noted to have low back pain, nonfocal examination, no red flag signs, has mild anterior abdominal tenderness, CT abdomen pelvis showed mild sigmoid colitis, no lumbar spine fracture; given antibiotics. hospital course: Patient was admitted for acute sigmoid diverticulitis. Was treated with IV Zosyn and symptoms improved will be discharged on 7 more days of Augmentin. For constipation received enemas and resolved. She will continue bowel regimen. For back pain due to multiple myeloma with lytic lesions was seen by Hematology Oncology and will follow up outpatient. For paroxysmal AFib with rapid ventricular response was continued on Eliquis and atenolol initially increased and converted to sinus bradycardia, we will be discharged on regular home dose of 37.5 mg daily of atenolol. For hypertension was continued on lisinopril. Patient is feeling better will be discharged home. Time Attestation Discharge Coordination Time (in mins): 34 Quality: Safe Use of Opioids Does Pt have an Active Cancer Diagnosis on the Problem List?: Yes Opioid Measure Date for [facility] [address] Report: 11/01/24 Opioid Measure Time for [facility] [address] Report: 09:48 Quality: Stroke Does the patient have a stroke diagnosis?: No Physical Exam Vital Signs: Vital Signs: Last Vital Signs Temp 98.2 F 12/01/24 07:47 Pulse 54 12/01/24 07:47 Resp 20 12/01/24 07:47 BP 125/70 12/01/24 07:47 Pulse Ox 93 12/01/24 07:47 O2 Del Method Room Air 12/01/24 07:47 BMI result Body Mass Index 26.6 General: AO X 3, no acute distress Resp: CTA bilateral, no accessory muscles used CVS: S1,S2,RRR GI: soft, non tender, non distended Neuro: motor grossly intact, alert Psych: appropriate affect, appropriate insight DS: Data Data Completed and Pending Labs on day of discharge: Laboratory Results - last 24 hr 11/28/24 12/01/24 10:45 06:19 WBC 7.5 RBC 3.71 L Hgb 11.4 L Hct 34.2 L MCV 92.2 MCH 30.7 MCHC 33.3 RDW 13.4 Plt Count 202 MPV 10.7 Absolute Nucleated RBC 0.000 Nucleated RBC % (auto) 0.0 Sodium 134 L Potassium 4.1 Chloride 101 Carbon Dioxide 29 Anion Gap 8 L BUN 16 Creatinine 0.79 Estim Creat Clear Calc 52.9 Estimated GFR > 60 Random Glucose 95 Calcium 9.7 Free [place] LC, Quant 471.3 H Free [place] LC, Quant 5.2 L Free [place]/Lambda Ratio 90.63 H Preliminary micro results at discharge 11/27/24 22:04 Blood Culture - Preliminary Blood - Venous No growth after 48 hours. 11/27/24 21:25 Blood Culture - Preliminary Blood - Venous No growth after 48 hours. Discharge Plan Discharge Anticipated Discharge Date/Time: 12/01/24 09:46 Patient Disposition: Home, Self-Care Discharge Diagnosis: afib, diverticulitis, MM Referrals: Krista Allen MD [Primary Care Provider] - 1 Week Hamida Watts MD [Physician] - 1 Week Discharge Medications: New amoxicillin-pot clavulanate 875-125 mg tablet 1 tab PO BID Qty: 14 0RF Continued lisinopril 20 mg tablet 20 mg PO BID Qty: 180 3RF aspirin 81 mg Tablet,Delayed Release (Dr/Ec) 81 mg PO BEDTIME acetaminophen 500 mg Tablet 1,000 mg PO BID PRN (Reason: Back Pain) cholecalciferol (vitamin D3) [Vitamin D3] 25 mcg (1,000 unit) Capsule 25 mcg PO DAILY simvastatin 20 mg tablet 20 mg PO BEDTIME lorazepam 0.5 mg tablet 0.5 mg PO BEDTIME PRN (Reason: Sleep/Restlessness) apixaban 5 mg tablet 5 mg PO BID Qty: 60 0RF atenolol 25 mg tablet 37.5 mg PO DAILY Qty: 135 3RF Discharge Orders: Discharge Order (Routine); Ordered 12/01/24 Ordered By: Chris Blake Diet: Advance to usual diet Activity on Discharge: As tolerated Stand Alone Forms: Patient Portal Discharge page Print Language: Syriac Care Plan Goals: Recovery Health Concerns: Constipation, multiple myeloma, diverticulitis, paroxysmal AFib Plan of Treatment: Continue bowel regimen, follow up with Oncology, 7 days Augmentin Assessment: See above
[2024-12-01 10:04] LABS: Beta-2 Microglobulin, Serum 3.11 mg/L (< OR = 2.51)
--- NOTE | 2024-12-01 10:55 | MHC.CM.PN ---
Pt is medically cleared for discharge home self-care, pt will arrange their own transport home today.
[2024-12-01 11:32] VITALS: BP 130/61; PULSE 58; RESP 17; TEMP 36.7; O2SAT 96
[2024-12-01 11:39] LABS: IgA 52 mg/dL (70-320); IgG 3637 mg/dL (600-1540); IgM 16 mg/dL (50-300)
[2024-12-01] MEDS: HYDROmorphone HCl 0.5 MG/0.5 ML SYRINGE IVPUSH (13:57)
[2024-12-01 21:19] LABS: PES - Abn Protein Band 1 2.5 g/dL (NONE DETECTED); Prot Elec - Albumin 4.1 g/dL (3.8-4.8); Prot Elec - Alpha1 0.3 g/dL (0.2-0.3); Prot Elec - Alpha2 0.8 g/dL (0.5-0.9); Prot Elec - Beta 1 0.5 g/dL (0.4-0.6); Prot Elec - Beta 2 0.2 g/dL (0.2-0.5); Prot Elec - Gamma 2.9 g/dL (0.8-1.7); Prot Elec - Total Protein 8.7 g/dL (6.1-8.1)
[2024-12-02 07:14] LABS: PEU Ran-Abn Protein Band 1 2 mg/dL (NONE DETECTED); PEU Ran-Abn Protein Band 2 3 mg/dL (NONE DETECTED); PEU-Protein Creat Ratio Rand 0.125 (0.024-0.184); PEU-Rand. Prot/Creat Ratio 125 mg/g creat (24-184); PEU-Random Ur. Gamma Globulin 28 %; PEU-Random Urine A1 Globulin 7 %; PEU-Random Urine A2 Globulin 18 %; PEU-Random Urine Albumin 35 %; PEU-Random Urine Beta Globulin 13 %; PEU-Random Urine Creatinine 208 mg/dL (20-275); PEU-Random Urine Protein 26 mg/dL (5-24)
[2024-12-02 13:13] LABS: IgA 54 mg/dL (70-320); IgG 3747 mg/dL (600-1540); IgM 16 mg/dL (50-300)
== END 2024-12-01 15:41 | disposition home or self-care (01) | DRG 392 ==
LOC: HO.ED 20:35 → HO.EDOVER 22:27 → HO.IMC 11-28 15:03 → HO.EDOVER 11-29 10:47
PROVIDERS: Internal Medicine; Admitting Provider Hospitalist; Emergency Provider Emergency Medicine; PCP Internal Medicine; Visit Provider Internal Medicine
DX: K57.32 Diverticulitis of large intestine without perforation or abscess without bleeding (principal); E87.1 Hypo-osmolality and hyponatremia; C90.00 Multiple myeloma not having achieved remission; E83.51 Hypocalcemia; K59.00 Constipation, unspecified; G89.3 Neoplasm related pain (acute) (chronic); I48.0 Paroxysmal atrial fibrillation; F41.9 Anxiety disorder, unspecified; I10 Essential (primary) hypertension; Z79.01 Long term (current) use of anticoagulants; Z79.82 Long term (current) use of aspirin; Z79.899 Other long term (current) drug therapy
CPT/HCPCS: 36415; 72100; 74177; 80048; 80053; 80076; 81003; 82232; 82570; 82784; 83521; 83615; 83690; 84156; 84165; 84166; 85025; 85027; 86334; 86335; 87040; 99219; 99285; 99495; J1171; J2270; J2405; J2543; Q9967

== ENCOUNTER → 2024-11-27 16:21 | Outpatient (BNV) | payer MEDICARE, OTHER, SELFPAY | PROVIDERS: Emergency Provider Emergency Medicine; PCP Internal Medicine; Visit Provider Radiology Diagnostic Radiology | DX: K57.32 Diverticulitis of large intestine without perforation or abscess without bleeding (principal); M85.89 Other specified disorders of bone density and structure, multiple sites | CPT/HCPCS: 74177 ==

== ENCOUNTER → 2024-11-27 20:35 | Outpatient (BNV) | payer MEDICARE, OTHER, SELFPAY | PROVIDERS: Admitting Provider Hospitalist; Emergency Provider Emergency Medicine; PCP Internal Medicine; Visit Provider Internal Medicine | DX: I48.91 Unspecified atrial fibrillation (principal); K57.32 Diverticulitis of large intestine without perforation or abscess without bleeding | CPT/HCPCS: 99222; 99232; 99239; 99499 ==

== ENCOUNTER → 2024-11-27 20:35 | Outpatient (BNV) | payer MEDICARE, OTHER, SELFPAY | PROVIDERS: Admitting Provider Hospitalist; Emergency Provider Emergency Medicine; PCP Internal Medicine; Visit Provider Internal Medicine | DX: C90.00 Multiple myeloma not having achieved remission (principal); M54.50 Low back pain, unspecified | CPT/HCPCS: 99222 ==

== ENCOUNTER 2024-12-03 10:16 | Outpatient (AMB) | payer MEDICARE, OTHER, SELFPAY ==
--- NOTE | 2024-12-03 10:18 | MHC.PC.OV ---
Vital Signs 12/03/24 10:28 Height 5 ft 6 in Weight 164 lb BMI 26.5 BP 128/80 Blood Pressure Location Lt brachial Position Sitting Respiration 17 Pulse 60 Pulse Source Pulse Oximeter Temp 98.3 F Temp Source Oral Pulse Oximetry (%) 98 Oxygen Delivery Method Room Air Intake Visit Reasons: TCM Intake Note: Pt is here today for TCM. Pt states that she is having a lot of pain in her back. Allergies hydralazine Allergy (Verified 12/03/24 10:23) Unknown pantoprazole Allergy (Verified 12/03/24 10:23) Unknown hydrochlorothiazide Adverse Reaction (Intermediate, Verified 12/03/24 10:23) Palpitations amlodipine Adverse Reaction (Verified 12/03/24 10:23) DIZZINESS sotalol Adverse Reaction (Verified 12/03/24 10:23) Palpitations Medication List - Last Reconciled 12/03/24 by Krista Allen MD acetaminophen 1,000 mg PO BID PRN amoxicillin-pot clavulanate 875-125 mg 1 tab PO BID apixaban 5 mg PO BID aspirin 81 mg PO BEDTIME atenolol 37.5 mg (1.5 x 25 mg) PO DAILY cholecalciferol (vitamin D3) (Vitamin D3) 25 mcg PO DAILY lisinopril 20 mg PO BID lorazepam 0.5 mg PO BEDTIME PRN simvastatin 20 mg PO BEDTIME Tobacco use date assessed: 12/03/24 Fall risk assessment: No Falls in past year Last assessed Fall Risk: 12/03/24 Dental Screening Dental Screen Date: 10/21/24 [facility] TCM HPI Details Patient presents for the follow-up transitional care management for hospitalization at [place] for severe back pain, acute diverticulitis and AFib with rapid ventricular rate. Patient reports lower back pain getting progressively worse and more positional becoming at 10/10 level and patient went to the emergency room on November 27. CT of the abdomen and pelvis was consistent with acute diverticulitis and questionable discrete lytic lesions in lumbar spine. Patient was treated for acute diverticulitis with IV antibiotics AFib converted to normal sinus rhythm after an extra dose of beta negrito. Hematology was consulted for monoclonal antibody present on immunofixation, elevated protein level and mild anemia. Lumbar spine MRI was recommended but not done during the hospitalization. Patient has a follow-up with oncology next week. She was discharged on the and reports persistent severe lower back pain. She complains of decreased appetite and nausea but not vomiting. Patient denies abdominal pain she has been taking Augmentin for diverticulitis. Patient denies chest pain palpitations shortness or breath. TCM TCM Information Date of Discharge 12/01/24 Discharged From [facility] Interactive Contact Date (Reference documentation from this date) 12/02/24 [facility] Medical History Atrial fibrillation with RVR Dysuria Impacted cerumen of both ears Bradycardia Dysplastic nevus Hyperglycemia Vitamin D deficiency Annual physical exam Palpitations Arrhythmia Leukoplakia of tongue Tachycardia Hyperlipidemia Peripheral neuropathy Hypertension Surgical History H/O mastectomy H/O colonoscopy Family History Father No problems noted. Mother No problems noted. Son Diabetes Social History Household Members: None Household Members Other:: lives alone, independent, daughter lives close Housing: House Do you presently have visiting nurse or other home services: No Alcohol intake: never Patient Tobacco Use Status: Never used Tobacco e-Cigarette/Vaping Use: Never Used Second Hand Smoke Exposure: No service: No Current occupational status: retired Cognitive needs: No Hearing needs: No Vision needs: Yes Questionnaire Thrive Questionnaire Date Thrive assessed: 10/21/24 I am a: Patient What is your living situation today?: I have a steady place to live Within the past 12 months, did the food you bought not last and you didn't have the money to get more?: Never true Within the past 12 months, did you worry whether your food would run out before you got money to buy more?: Never true Do you have trouble paying for medicines?: No Do you have trouble getting transportation to medical appointments?: No Do you have trouble paying your heating and electricity bill?: No Do you have trouble taking care of your child, family member or friend?: No Do you have trouble with day-to-day activities such as bathing, preparing meals, shopping, managing finances, etc.?: No Are you currently unemployed and looking for a job?: No Are you interested in more education?: No Please select the resources that you would like help with: None Currently or been in a relationship where the following occur: No concerns reported THRIVE Score: 0 AUDIT C Alcohol Use Questionnaire (AUDIT-C) 1. How often do you have a drink containing alcohol?: Never 3. How often do you have six or more drinks on one occasion?: Never Total Score: 0 BRADY-7 AMB Questionnaire BRADY-7 Date BRADY - 7 assessed: 10/21/24 Source: Developed by Drs. Jae Sandoval, Yolanda Ennis, Darnell Matias and colleagues, with an educational chu from [employer]. Review of Systems Const All systems reviewed & are unremarkable except as noted in HPI and below Eyes Reports no additional complaints ENT Reports no additional complaints Card Reports no additional complaints Resp Reports no additional complaints GI Reports no additional complaints Reports no additional complaints Physical exam (Primary Care) Vital Signs: Last Vital Signs Temp 98.3 F 12/03/24 10:28 Pulse 60 12/03/24 10:28 Resp 17 12/03/24 10:28 BP 128/80 12/03/24 10:28 Pulse Ox 98 12/03/24 10:28 Oxygen Delivery Method Room Air 12/03/24 10:28 BMI result Body Mass Index 26.5 Tobacco/Smoking Status: Tobacco use Status Tobacco use date assessed 12/03/24 12/03/24 10:23 Patient Tobacco Use Status Never used Tobacco 12/03/24 10:18 e-Cigarette/Vaping Use Never Used 12/03/24 10:18 Thrive Assessment: Date of Thrive Assessment Date Thrive assessed 10/21/24 12/03/24 10:18 Currently or been in a relationship where the following occur: No concerns reported Const General: no acute distress HENMT Head: Yes normal to inspection Ears: hearing grossly normal bilaterally Eyes General: appearance normal, both eyes and all related structures Resp Effort & Inspection: normal respiratory effort Auscultation: clear to auscultation bilaterally Cardio Rhythm: regular rhythm Heart sounds: S1 normal heart sound present and S2 normal heart sound present GI Inspection: Yes normal to inspection Palpation (GI): Soft to palpation Percussion: Yes normal to percussion Auscultation: normal bowel sounds Back/Spine/Pelvis Other: There is no spinal or paraspinal tenderness in lumbar region, patient is unable to get on a table for full exam due to back pain, motor leg strength is 5/5 bilaterally, deep tendon reflexes 2+ bilaterally Coding Level of Care Code TCM High MDM <= 7 Days Diagnoses Multiple myeloma C90.00 Lesion of bone of lumbosacral spine M89.9 Paroxysmal atrial fibrillation I48.0 Diverticulitis K57.92 Back pain M54.9 Assessment & Plan Assessment & Plan (1) Multiple myeloma: Comment: IgG kappa monoclonal band on immunofixation 11/2024 Code(s): C90.00 - Multiple myeloma not having achieved remission Category: Medical Plan: Patient has an appointment scheduled with Hematology next week (2) Lesion of bone of lumbosacral spine: Code(s): M89.9 - Disorder of bone, unspecified Category: Medical Plan: Obtain stat lumbar spine MRI to evaluate for lytic lesions (3) Paroxysmal atrial fibrillation: Code(s): I48.0 - Paroxysmal atrial fibrillation Category: Medical Plan: Continue beta negrito anticoagulation with Eliquis (4) Diverticulitis: Code(s): K57.92 - Diverticulitis of intestine, part unspecified, without perforation or abscess without bleeding Category: Medical Plan: Patient will complete a course of Augmentin (5) Back pain: Code(s): M54.9 - Dorsalgia, unspecified Category: Medical Plan: For severe back pain ? secondary to multiple myeloma gabapentin 300 mg at bedtime will be started and tramadol 50 mg Q 8 hr is prescribed until patient follows up with [facility] next week. Referred to pain management as recommended by Hematology Orders: Orders MR lumbar spine wo con Today C90.00 - Multiple myeloma not having achieved remission, M89.9 - Disorder of bone, unspecified Referrals Pain Management Referral C90.00 - Multiple myeloma not having achieved remission, M89.9 - Disorder of bone, unspecified Medications: New gabapentin 300 mg PO BEDTIME 90 caps 0RF tramadol 50 mg PO Q8H PRN 60 tabs 0RF pain diazepam (Valium) 1 tabl 1 hr before, may repeat 5 mg PO BEDTIME PRN 2 tabs 0RF sleep
[2024-12-03 10:28] VITALS: BP 128/80; PULSE 60; RESP 17; TEMP 36.8; O2SAT 98; BMI 26.5
== END 2024-12-03 11:44 | disposition home or self-care (01) ==
LOC: HO.HMCC 10:17
PROVIDERS: PCP Internal Medicine; Visit Provider Internal Medicine
DX: C90.00 Multiple myeloma not having achieved remission (principal); M89.9 Disorder of bone, unspecified; I48.0 Paroxysmal atrial fibrillation; K57.92 Diverticulitis of intestine, part unspecified, without perforation or abscess without bleeding; M54.9 Dorsalgia, unspecified

== ENCOUNTER → 2024-12-03 10:16 | Outpatient (BNVA) | payer MEDICARE, OTHER, SELFPAY | PROVIDERS: PCP Internal Medicine; Visit Provider Internal Medicine | DX: C90.00 Multiple myeloma not having achieved remission (principal); M89.9 Disorder of bone, unspecified; I48.0 Paroxysmal atrial fibrillation; M54.9 Dorsalgia, unspecified; K57.92 Diverticulitis of intestine, part unspecified, without perforation or abscess without bleeding | CPT/HCPCS: 99496 ==

== ENCOUNTER 2024-12-06 19:36 | Emergency (ER) | payer MEDICARE, OTHER, SELFPAY ==
--- NOTE | ~2024-12-06 | XR_ITS ---
CLINICAL HISTORY: worsening pain, has MRI 3 24 3 views thoracic spine Comparison: X-rays of the lumbar spine from same day. Findings: Mild height loss of the T12 compression fracture not further characterize by radiographs. No significant listhesis of the imaged thoracic vertebrae. Mild additional vertebral height losses include midthoracic vertebrae are age indeterminate by radiographs. Cervicothoracic junction is partly obscured. Degenerative changes include facet arthropathy of the thoracic spine. Degenerative changes also noted in the partially imaged cervical spine. Calcifications of the tortuous aorta. Mild atelectasis in the [id number]. Surgical clips are noted in the [id number], likely axillary. IMPRESSION: 1. Mild height loss of the T12 compression fracture as noted on same-day lumbar spine x-rays. 2. Degenerative changes include facet arthropathy. This document has been electronically signed by: Renny Stringer MD on 12/06/2024 21:05:36
--- NOTE | ~2024-12-06 | XR_ITS ---
CLINICAL HISTORY: worsening pain, has MRI 3 24 3 views lumbar spine Comparison: X-rays of the lumbar spine from 11/26/2024. Findings: Interim worsening of the vertebral height losses including T12 with now moderate height loss, L1 with mild-moderate height loss, L2 with mild-moderate height loss, and L3 with mild-moderate height loss. No significant change in vertebral alignments. Facet arthropathy is multifocal with obscuration of the majority of the posterior elements. No definite spondylolysis. No significant change in multifocal disc height losses. Vascular calcifications are redemonstrated. Sacrum and SI joints are partly obscured with asymmetric sclerosis and degenerative changes of the imaged SI joints. Degenerative changes include the partially imaged hips. IMPRESSION: 1. Mild progression and worsening of the multifocal vertebral height losses compared to 10 days prior. Patient is reportedly scheduled for upcoming MRI. 2. Degenerative changes include facet arthropathy by radiographs. 3. No significant change in vertebral alignments compared to 10 days prior. This document has been electronically signed by: Renny Stringer MD on 12/06/2024 21:03:40
[2024-12-06 19:46] VITALS: BP 140/80; PULSE 60; O2SAT 99
[2024-12-06 19:47] VITALS: BP 179/85; PULSE 60; RESP 19; TEMP 36.7; O2SAT 95; BMI 26.4
--- NOTE | 2024-12-06 20:13 | ED_ITS ---
HPI - General Adult General Chief complaint: General Medical Stated complaint: BACK PAIN Time Seen by Provider: 12/06/24 19:39 Source: patient and EMS Mode of arrival: EMS Limitations: no limitations History of Present Illness ED Provider: Dr. Nubia Campbell HPI narrative: patient comes to the emergency room complaining of lumbar back pain. Patient states that she has been worked up for multiple myeloma. patient denies any recent injuries, no falls. Patient denies urinary / fecal incontinence or retention. Patient states that today she was trying to get out of bed and could not do it due to pain. Patient was here for atrial fibrillation , on Eliquis, patient had a consult with Hematology/Oncology, patient being worked up for multiple myeloma. Patient has an MRI in 2 days. Related Data Home Medications ?Medication ?Instructions ?Recorded ?Confirmed acetaminophen 500 mg tablet 1,000 mg PO BID PRN Back Pain 11/17/24 12/03/24 aspirin 81 mg tablet,delayed 81 mg PO BEDTIME 11/17/24 12/03/24 release cholecalciferol (vitamin D3) 25 25 mcg PO DAILY 11/17/24 12/03/24 mcg (1,000 unit) capsule (Vitamin D3) lorazepam 0.5 mg tablet 0.5 mg PO BEDTIME PRN 11/17/24 12/03/24 Sleep/Restlessness simvastatin 20 mg tablet 20 mg PO BEDTIME 11/17/24 12/03/24 Previous Rx's ?Medication ?Instructions ?Recorded lisinopril 20 mg tablet 20 mg PO BID #180 tabs 07/01/24 atenolol 25 mg tablet 37.5 mg (1.5 x 25 mg) PO DAILY 08/19/24 #135 tabs apixaban 5 mg tablet 5 mg PO BID #60 tabs 11/18/24 amoxicillin 875 mg-potassium 1 tab PO BID #14 tabs 12/01/24 clavulanate 125 mg tablet diazepam 5 mg tablet (Valium) 5 mg PO BEDTIME PRN sleep #2 tabs 12/03/24 gabapentin 300 mg capsule 300 mg PO BEDTIME #90 caps 12/03/24 tramadol 50 mg tablet 50 mg PO Q8H PRN pain #60 tabs 12/03/24 Allergies Allergy/AdvReac Type Severity Reaction Status Date / Time hydralazine Allergy Unknown Verified 12/06/24 19:55 pantoprazole Allergy Unknown Verified 12/06/24 19:55 hydrochlorothiazide AdvReac Intermediate Palpitation Verified 12/06/24 19:55 s amlodipine AdvReac DIZZINESS Verified 12/06/24 19:55 sotalol AdvReac Palpitation Verified 12/06/24 19:55 s Review of Systems Review of Systems: Constitutional : No Weight loss, No Fever, No Chills, No Night Sweats, No Fatigue, No Malaise ENT/Mouth : No Hearing loss, No Ear Pain, No Nasal Congestion, No Sinus Pain, No Hoarseness, No sore throat, No Rhinorrhea, No Swallowing Difficulty Eyes: No Eye Pain, No Swelling, No Redness, No Foreign Body, No Discharge, No Vision Changes Cardiovascular : No Chest Pain, No SOB, No Dyspnea on Exertion, No Orthopnea, No Edema, No Palpitations Respiratory : No Cough, No Sputum, No Wheezing, No Smoke Exposure, No Dyspnea Gastrointestinal : No Nausea, No Vomiting, No Diarrhea, No Constipation, No abdominal Pain, No Hematochezia, No Melena Genitourinary : no irregular bleeding, No Dysuria, No Urinary Frequency, No Hematuria, No Urinary Incontinence, No Urgency, No Flank Pain, No Urinary Flow Changes, No Hesitancy Musculoskeletal : complaining of lower back pain, nonradiating, No joint pain, No Myalgias, No Joint Swelling Skin : No Skin Lesions, No rash Neuro : No Weakness, No Numbness, No Paresthesias, No Loss of Consciousness, No Dizziness, No Headache Psych : No Anxiety/Panic, No Depression, No SI/HI/AH/VH, No Social Issues, Heme/Lymph: No Bruising, No Bleeding,No Lymphadenopathy Endocrine : No Polyuria, No Polydipsia, No Temperature Intolerance [facility] Past Medical History Medical History Atrial fibrillation with RVR Dysuria Impacted cerumen of both ears Bradycardia Dysplastic nevus Hyperglycemia Vitamin D deficiency Annual physical exam Palpitations Arrhythmia Leukoplakia of tongue Tachycardia Hyperlipidemia Peripheral neuropathy Hypertension Surgical History H/O mastectomy H/O colonoscopy Family History Family History Father No problems noted. Mother No problems noted. Son Diabetes Social History Social History Household Members: None Household Members Other:: lives alone, independent, daughter lives close Housing: House Do you presently have visiting nurse or other home services: No Alcohol intake: never Patient Tobacco Use Status: Never used Tobacco Smoked in Last 30 Days: No e-Cigarette/Vaping Use: Never Used Second Hand Smoke Exposure: No Use of substances other than those prescribed or required for medical reasons: No Advance Directives: No Advance Directives Information Provided: No service: No Current occupational status: retired Cognitive needs: No Hearing needs: No Vision needs: Yes Physical Exam ED Vital Signs: Vital Signs - 24 hr 12/06/24 19:47 Temperature 98.0 F Pulse Rate 60 Respiratory Rate 19 Blood Pressure 179/85 H Pulse Oximetry 95 Oxygen Delivery Method Room Air BMI result Body Mass Index 26.4 Const Other: Appearance: Alert. Oriented X3. No acute distress. Eyes: Pupils equal, round and reactive to light. ENT: Pharynx normal. Neck: Normal inspection. Neck supple. No lymph nodes noted. No crepitus CVS: Normal heart rate and rhythm. Pulses normal. Normal S1 and S2 Respiratory: No respiratory distress. Breath sounds normal. No Wheezing. No rales Abdomen: Soft and nontender. No rigidity. No distention. Skin: Skin warm and dry. Normal skin color. Normal skin turgor. back: No pain to palpation over the paraspinal muscles or thoracic / lumbar. /Coccyx. Patient states the pain is worse when she moves Extremities: No lower extremity edema. No Lacerations. No Rash Neuro: Oriented X 3. No motor deficit. No sensory deficit. Moving all extremities. No slurred speech. CN 2 through 12 grossly intact Psych: calm, cooperative, normal affect Course Course Course Narrative: patient states that she took p.o. tramadol without any relief. Patient was given a dose of oxycodone here in the ED, patient has an MRI pending in 2 days. Patient being worked up for multiple myeloma we will obtain x-rays to rule out any acute abnormality PT / case management has been offered to the patient. Patient declining. However, after the p.o. medication and the imaging studies resolved, we will ambulate the patient and see if she can sit up by herself and go home. Patient lives by herself. Medications Administered Discontinued Medications Generic Name Dose Route Start Last Admin Trade Name Dona PRN Reason Stop Dose Admin Oxycodone HCl 5 mg 12/06/24 19:56 12/06/24 20:16 Oxycodone Hcl Immed Release 5 Mg Tablet PO 12/06/24 19:57 5 mg ONCE ONE Administration Medical Decision Making Medical Decision Making MDM Narrative: x-rays of the thoracic spine and lumbar spine: Mild progression and worsening of multifocal vertebral height loss this is compared to 10 days prior. Seems that patient has worsening bacterial high lost in T12, L1, L2 and L3 patient was able to get up to the bathroom and walk. However, patient states that any time that she needs to go from lying down position to sitting up it hurts quite a bit in the lower back pain. Patient lives by herself, patient is concerned that she will not be able to get help by her family even though they live close by especially in the middle of the night. Patient received a dose of oxycodone p.o., states that she is still in pain, receiving a 2nd dose. I discussed with the patient that the best next step is to get PT case management involved. Patient may need extra help at home. Patient has an MRI pending in 2 days. So far, no neurological deficits physician observation started at 21:35 physical therapy and case management consult pending. Differential Diagnosis Differential Diagnoses: The differential diagnosis associated with the presentation includes ( compression fractures, multiple myeloma) Admission/Observation Consideration of admission/observation: Escalation of care including admission/observation considered Independent Interpretation I performed an independent interpretation of an: Plain X-Ray Radiology Impression Discussion of test interpretation with radiology: I have reviewed the radiologist's reading. Radiologist Impression: Interim worsening of the vertebral height losses including T12 with now moderate height loss, L1 with mild-moderate height loss, L2 with mild-moderate height loss, and L3 with mild-moderate height loss. No significant change in vertebral alignments. Facet arthropathy is multifocal with obscuration of the majority of the posterior elements. No definite spondylolysis. No significant change in multifocal disc height losses. Vascular calcifications are redemonstrated. Sacrum and SI joints are partly obscured with asymmetric sclerosis and degenerative changes of the imaged SI joints. Degenerative changes include the partially imaged hips. IMPRESSION: 1. Mild progression and worsening of the multifocal vertebral height losses compared to 10 days prior. Patient is reportedly scheduled for upcoming MRI. 2. Degenerative changes include facet arthropathy by radiographs. 3. No significant change in vertebral alignments compared to 10 days prior. Critical Care Time Critical Care Time Critical Care Time: Yes Total Critical Care Time: 35 Attestation: I have personally provided critical care time. Time includes review of lab data, radiology results, discussion with consultants, and monitoring for potential decompensation. Intervention performed as documented. Discharge Plan Discharge Clinical Impression: Acute on chronic low back pain Patient Disposition: Still a Patient Prescriptions: No Action lisinopril 20 mg tablet 20 mg PO BID Qty: 180 3RF aspirin 81 mg Tablet,Delayed Release (Dr/Ec) 81 mg PO BEDTIME acetaminophen 500 mg Tablet 1,000 mg PO BID PRN (Reason: Back Pain) cholecalciferol (vitamin D3) [Vitamin D3] 25 mcg (1,000 unit) Capsule 25 mcg PO DAILY simvastatin 20 mg tablet 20 mg PO BEDTIME lorazepam 0.5 mg tablet 0.5 mg PO BEDTIME PRN (Reason: Sleep/Restlessness) apixaban 5 mg tablet 5 mg PO BID Qty: 60 0RF amoxicillin-pot clavulanate 875-125 mg tablet 1 tab PO BID Qty: 14 0RF atenolol 25 mg tablet 37.5 mg PO DAILY Qty: 135 3RF tramadol 50 mg tablet 50 mg PO Q8H PRN (Reason: pain) Qty: 60 0RF gabapentin 300 mg capsule 300 mg PO BEDTIME Qty: 90 0RF diazepam [Valium] 5 mg tablet 5 mg PO BEDTIME PRN (Reason: sleep) Qty: 2 0RF Rx Instructions: 1 tabl 1 hr before, may repeat Print Language: [place]araguan
[2024-12-06] MEDS: oxyCODONE HCl Immed Release 5 MG TABLET PO (20:16)
[2024-12-07 00:46] VITALS: BP 147/84; PULSE 92; RESP 19; TEMP 36.7; O2SAT 95
[2024-12-07] MEDS: bisacodyL 5 MG TABLET.DR PO (02:10)
[2024-12-07] MEDS: polyethylene glycoL 3350 17 GM POWD.PACK PO (02:10)
[2024-12-07] MEDS: oxyCODONE HCl Immed Release 5 MG TABLET PO ×2 (02:11→12:30)
[2024-12-07 03:17] VITALS: BP 137/72; PULSE 67; RESP 17; TEMP 36.7; O2SAT 95
--- NOTE | 2024-12-07 07:56 | PC.NURSE ---
Med rec completed with patient. Patient reports is not taking valium and has 3 doses left of the abt (2 doses today and 1 tomorrow) that she is taking for diverticultitis
--- NOTE | 2024-12-07 08:01 | PHA.MEDREC ---
Pharmacy Consult ? Medication Reconciliation Pharmacy has REVIEWED the medication reconciliation DONE BY NURSING. Utilized claims history and PDMP for rph check.
[2024-12-07] MEDS: lisinopriL 20 MG TABLET PO (08:57)
[2024-12-07] MEDS: Cholecalciferol (Vitamin D3) 25 MCG TABLET PO (08:57)
[2024-12-07] MEDS: Apixaban 5 MG TABLET PO (08:57)
[2024-12-07] MEDS: Amoxicillin/Potassium Clav 875 MG TABLET PO (08:57)
[2024-12-07] MEDS: atenoloL 25 MG TABLET 37.5 MG PO (08:58)
--- NOTE | 2024-12-07 11:20 | MHC.CM.ED ---
Received consult for assessment of d/c planning needs: pt resides alone, is independent w/ADL's, has no DME or services. Pt states she is feeling improved and would like to d/c to home. She states she has an outpt MRI tomorrow and PT. Her sister lives next door and two children are close by if she requires assistance. PT eval ordered - will occur 12/08. Pt declined to wait and states if she has pain medication she will be able to function. Discussed w/ED provider. Pt has cell and states she will call family for transportation to home.
[2024-12-07 12:00] VITALS: BP 137/96; PULSE 104; RESP 16; TEMP 36.6; O2SAT 95
[2024-12-07] MEDS: Famotidine 20 MG TABLET PO (12:30)
[2024-12-07 14:00] VITALS: BP 131/83; PULSE 96; RESP 16; TEMP 36.5; O2SAT 97
[2024-12-07 15:17] VITALS: BP 131/83; PULSE 96; RESP 16; TEMP 36.5; O2SAT 97
== END 2024-12-07 15:25 | disposition home or self-care (01) ==
PROVIDERS: Emergency Provider Emergency Medicine; PCP Internal Medicine
DX: G89.29 Other chronic pain (principal); M54.50 Low back pain, unspecified
CPT/HCPCS: 72070; 72100; 99284

== ENCOUNTER → 2024-12-06 20:13 | Outpatient (BNV) | payer MEDICARE, OTHER, SELFPAY | PROVIDERS: Emergency Provider Emergency Medicine; PCP Internal Medicine; Visit Provider Radiology Neuroradiology | DX: M51.360 Other intervertebral disc degeneration, lumbar region with discogenic back pain only (principal); M51.34 Other intervertebral disc degeneration, thoracic region | CPT/HCPCS: 72070; 72100 ==

== ENCOUNTER 2024-12-08 14:19 | Outpatient (REF) | payer MEDICARE, OTHER, SELFPAY ==
--- NOTE | ~2024-12-08 | MR_ITS ---
EXAMINATION: MR THORACIC SPINE WITHOUT AND WITH CONTRAST CLINICAL INFORMATION: Disorder of bone. Recent x-ray demonstrated compression deformity, T12. COMPARISON: Correlated to MRI dated December 08, 2024. TECHNIQUE: MRI of the thoracic spine was obtained using routine sequences with and without contrast. Intravenous contrast: (Gadavist) 7 mL. No reported immediate complications. FINDINGS: There is diffuse bone marrow inhomogeneity throughout the axial skeleton. There is a hypointense T1 hyperintense STIR and homogeneously enhancing soft tissue signal abnormality centered in the vertebral body of T9 extending to the left pedicle, left lamina, left transverse processes and into the epidural/subdural left lateral central spinal canal resulting in 30% central spinal canal narrowing abutting the cord. There is a 30% volume loss of the vertebral body of T9. There is narrowing of the inferior aspect left T8-9 neuroforamina secondary to this soft tissue infiltrative mass. There is bone marrow hyperintense STIR and heterogeneous enhancement resulting in 30% volume loss of the superior endplate of T12. There is a 9 mm round soft tissue signal enhancing lesion in the posterior spinous processes of T12. There is a subtle bone marrow STIR heterogeneously enhancing signal involving the inferior endplate of L1 with focal heterogeneous enhancing round lesion in the posterior aspect of the vertebral body of L1. There is a 30% volume loss. Multilevel marginal osteophyte formation and disc desiccation throughout the axial skeleton. Reverse curvature apex at T6-7. Incomplete ankylosis at T6-7. No abnormal enhancement within the thoracic spinal cord or the leptomeningeal compartment of the thoracic spine. There is no cord compression from T1 to T12. The conus medullaris ends at inferior endplate of T12 with normal signal. Small cystic lesions in the kidneys. 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 Acute to subacute Pathologic compression fractures, T12 and L1. Electronically signed by: Kameron Dykes MD 12/09/2024 08:36 AM EDT
--- NOTE | ~2024-12-08 | MR_ITS ---
EXAMINATION: MR LUMBAR SPINE WITHOUT AND WITH CONTRAST CLINICAL INFORMATION: Multiple myeloma, not having achieved remission. Low back pain x2 months. COMPARISON: 04/03/2015. TECHNIQUE: Multiplanar multisequence MR imaging of the lumbar spine was done after the IV administration of 7 mL Gadavist. Examination was performed on a 1.5 Nata Siemens magnet, utilizing standard sequences. FINDINGS: CORONAL ALIGNMENT: -There is a minimal right convex scoliosis, apex at L3. SAGITTAL ALIGNMENT: - There is a normal lordosis. -There is a 2 mm degenerative anterolisthesis of L3 on L4. -Alignment is otherwise anatomic. LUMBOSACRAL JUNCTION: -Normal. There are 5 [id number] lumbar-type vertebral bodies. VERTEBRAL BODIES/BONE MARROW: -There is a acute/subacute mild superior endplate compression deformity of T12 with approximately 30% loss of height. There is 2 mm of retropulsion of bone from the superior endplate. -There is mild bone marrow edema in the inferior endplate of L1 consistent with a acute/subacute mild inferior endplate compression fracture, approximately 20%. There is an old 40% concavity of the superior endplate. -There is approximately 20% acute/subacute compression deformity of L3 inferior endplate. There is an old 30% concavity of the superior endplate. -There is a chronic superior endplate concavity of L2. 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 -There is a hemangioma in the left aspect of T12. -There is a large superior endplate Schmorl's node in the central L4 vertebral body. -Mild expansion and enhancement of the right L4 lamina, in keeping with myelomatous lesion. -Small round myelomatous lesion in the spinous process of T12. -Facet edema and enhancement left greater than right at L2-3, and L3-4. This appears degenerative. DISCS: -There is severe loss of disc height and signal at L4-5 and L5-S1 with disc vacuum phenomenon. -There is moderate loss of height and signal at levels above L1, with disc vacuum phenomenon present at L3-4. SPINAL CANAL: -No abnormal developmental findings. CONUS MEDULLARIS: -Terminates at superior endplate of L1. Morphology and signal is normal. No abnormal intra or extra medullary enhancement. INTRADURAL NERVE ROOTS: - Within normal limits. No abnormal enhancement. Axial Disc Space Images: T12-L1: Minimal concentric disc bulge. Small central annular fissure. Mild central stenosis. Mild to moderate left greater than right facet arthropathy, resulting in mild right neural foraminal narrowing. L1-L2: Shallow concentric disc bulge, mildly indenting on the ventral thecal sac. Central small annular fissure. Mild to moderate bilateral hypertrophic facet changes. There is mild central canal narrowing and mild left greater than right subarticular recess narrowing. There is mild to moderate bilateral neural foraminal narrowing. L2-L3: There is a prominent concentric bulging disc extending into both foraminal zones, which when coupled with moderate hypertrophic facet changes bilaterally, and prominent posterior ligamentous thickening/infolding, results in moderate to severe central canal stenosis, moderate to severe bilateral subarticular recess stenosis, and moderate to severe left greater than right neural foraminal stenosis. L3-L4: There is a concentric bulging disc present extending into both foraminal zones, moderate to severe hypertrophic degenerative facet changes and posterior ligamentous thickening/infolding. There is moderate central canal stenosis, moderate to severe bilateral subarticular recess stenosis, and moderate to severe left greater than right neural foraminal stenosis. L4-L5: Concentric disc bulge present extending into both foraminal zones, moderate to severe bilateral hypertrophic degenerative facet changes, mild posterior ligamentous thickening/infolding. There is mild to moderate central canal stenosis, moderate bilateral subarticular recess stenosis, and moderate to severe left greater than right neural foraminal stenosis. L5-S1: Shallow concentric bulging disc, with moderate bilateral right greater than left hypertrophic facet arthropathy. Mild central canal narrowing. No subarticular recess or neural foraminal narrowing. IMAGED SI JOINTS: -Moderate degenerative change bilaterally. PARAVERTEBRAL AND INCLUDED EXTRASPINAL SOFT TISSUES: -Renal cyst inferior pole left kidney. -Tortuous and mildly ectatic aorta without aneurysm. -Mild atrophy of the paraspinous musculature inferior to L3. MR/MR lumbar spine wo/w con IMPRESSION: 1. 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 Focal mildly expansile myelomatous lesions in the inferior spinous process of T12, and right lamina of L4. 2. Acute/subacute mild superior endplate compression deformity of T12, inferior endplate compression deformity of L1, and inferior endplate compression deformity of L3. These are superimposed on chronic compression deformities of the superior endplate of L2, superior endplate of L3, and inferior endplate of T12. 3. Degenerative appearing facet edema and enhancement left greater than right at L2-3, and L3-4. 4. Additional spondylosis as discussed, most significant at L2-3. Electronically signed by: Avtar Mccullough MD 12/08/2024 04:42 PM EDT
[2024-12-08] MEDS: gadobutroL 7.5 ML VIAL IVPUSH (16:06)
== END 2024-12-08 14:20 | disposition home or self-care (01) ==
LOC: HO.MRI 14:19
PROVIDERS: PCP Internal Medicine; Visit Provider Internal Medicine
DX: C90.00 Multiple myeloma not having achieved remission (principal); M89.9 Disorder of bone, unspecified
CPT/HCPCS: 72157; 72158; A9585

== ENCOUNTER → 2024-12-08 14:40 | Outpatient (BNV) | payer MEDICARE, OTHER, SELFPAY | PROVIDERS: PCP Internal Medicine; Visit Provider Radiology Diagnostic Radiology | DX: C79.51 Secondary malignant neoplasm of bone (principal) | CPT/HCPCS: 72157; 72158 ==

== ENCOUNTER 2024-12-10 09:04 | Outpatient (AMB) | payer MEDICARE, OTHER, SELFPAY ==
[2024-12-10 09:21] VITALS: BP 179/88; PULSE 56; O2SAT 96
--- NOTE | 2024-12-10 09:21 | MHC.OFFVIS ---
Vital Signs 12/10/24 09:21 Height 5 ft 6 in BP 179/88 H Blood Pressure Location Rt brachial Position Sitting Pulse 56 Pulse Source Pulse Oximeter Pulse Oximetry (%) 96 Oxygen Delivery Method Room Air Intake Visit Reasons: Disorder of bone, unspecified/urgent ref Cad Draftsman Required: No Allergies hydralazine Allergy (Verified 12/10/24 09:22) Unknown pantoprazole Allergy (Verified 12/10/24 09:22) Unknown hydrochlorothiazide Adverse Reaction (Intermediate, Verified 12/10/24 09:22) Palpitations amlodipine Adverse Reaction (Verified 12/10/24 09:22) DIZZINESS sotalol Adverse Reaction (Verified 12/10/24 09:22) Palpitations Medication List - Last Reconciled 12/10/24 by Carla Zheng, [employer] acetaminophen 1,000 mg PO BID PRN amoxicillin-pot clavulanate 875-125 mg 1 tab PO BID apixaban 5 mg PO BID aspirin 81 mg PO BEDTIME atenolol 37.5 mg (1.5 x 25 mg) PO DAILY cholecalciferol (vitamin D3) (Vitamin D3) 25 mcg PO DAILY gabapentin 300 mg PO BEDTIME lisinopril 20 mg PO BID lorazepam 0.5 mg PO BEDTIME PRN oxycodone 5 mg PO Q8H PRN simvastatin 20 mg PO BEDTIME tramadol 50 mg PO Q8H PRN HPI Comments Details: The patient is an 84-year-old female presenting with severe lower back pain. The pain began a couple of weeks ago and was first managed with tramadol by pcp, which proved ineffective and caused nausea. Subsequent visits to the ER resulted in a prescription for oxycodone, providing marginal relief. The pain severely affects her mobility, particularly in rising from lying or sitting. Imaging thus far includes MRIs and CT scans, indicating possible bone lesions consistent with multiple myeloma. Despite treatment efforts, her back pain persists, diminishing her previously high activity level. The patient also reports wearing a pad at night due to the difficulty in timely access to the bathroom, though she maintains control during the day. She denies sudden incontinence. Patient has new patient appointment with Oncology today. They are hoping to receive diagnosis and treatment plan. - Onset: Began a couple of months ago. - Quality: Severe. - Primary Location: Lower back. - Radiation: None specifically noted. - Exacerbating Factors: Movement, use of a back brace. - Relieving Factors: Oxycodone, to a marginal extent. - Interference with Activities: Difficulty getting out of bed, requiring assistance. - Affect: Diminished quality of life; impacts physical activity. - Analgesia: Prescribed tramadol was ineffective, oxycodone provided slight relief. - Adverse Effects: Nausea from tramadol. - Activities of Daily Living: Severely limited; needs assistance getting out of bed. - Aberrant Drug Related Behaviors: None reported. [facility] Medical History Atrial fibrillation with RVR Dysuria Impacted cerumen of both ears Bradycardia Dysplastic nevus Hyperglycemia Vitamin D deficiency Annual physical exam Palpitations Arrhythmia Leukoplakia of tongue Tachycardia Hyperlipidemia Peripheral neuropathy Hypertension Surgical History H/O mastectomy H/O colonoscopy Family History Father No problems noted. Mother No problems noted. Son Diabetes Social History Household Members: None Household Members Other:: lives alone, independent, daughter lives close Housing: House Do you presently have visiting nurse or other home services: No Alcohol intake: never Patient Tobacco Use Status: Never used Tobacco e-Cigarette/Vaping Use: Never Used Second Hand Smoke Exposure: No service: No Current occupational status: retired Cognitive needs: No Hearing needs: No Vision needs: Yes Review of Systems Const Details: - Musculoskeletal: Reports severe lower back pain affecting mobility. All systems reviewed & are unremarkable except as noted in HPI and below Physical Exam Vital Signs: Last Vital Signs Pulse 56 12/10/24 09:21 BP 179/88 H 12/10/24 09:21 Pulse Ox 96 12/10/24 09:21 Oxygen Delivery Method Room Air 12/10/24 09:21 General: awake, alert, oriented. Answers questions appropriately. Fully engaged in examination. Skin: warm, dry, intact HEENT: Normocephalic. Hearing intact. Cardiac: External chest normal in appearance. Respiratory: No cough, audible wheezing or stridor. Abdomen: without gross distension. MS: No obvious swelling or deformities. Able to stand on bilateral tiptoes and bilateral heels.? Able to transition from sit to stand unassisted but with increased pain and difficulty. Patient utilizing upper body to assist with rising from seated position. Tenderness to palpation midline lumbar vertebrae and lumbar paraspinal muscles SLR neg bilaterally Neurological: Oriented to person, place, time and situation. Thought process intact. No gait abnormalities appreciated. Psychiatric: Appropriate mood and affect. Good judgment and insight. Results Reviewed Results Reviewed: 12/08/24 MR/MR lumbar spine wo/w con IMPRESSION: 1. 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 Focal mildly expansile myelomatous lesions in the inferior spinous process of T12, and right lamina of L4. 2. Acute/subacute mild superior endplate compression deformity of T12, inferior endplate compression deformity of L1, and inferior endplate compression deformity of L3. These are superimposed on chronic compression deformities of the superior endplate of L2, superior endplate of L3, and inferior endplate of T12. 3. Degenerative appearing facet edema and enhancement left greater than right at L2-3, and L3-4. 4. Additional spondylosis as discussed, most significant at L2-3. 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 Acute to subacute Pathologic compression fractures, T12 and L1. Assessment & Plan Assessment & Plan (1) Lesion of bone of thoracic spine: Code(s): M89.9 - Disorder of bone, unspecified Category: Medical (2) Lesion of bone of lumbosacral spine: Code(s): M89.9 - Disorder of bone, unspecified Category: Medical (3) Back pain: Code(s): M54.9 - Dorsalgia, unspecified Category: Medical Plan For addressing the patient's severe lower back pain I prescribed a short-term supply of oxycodone. The patient will consult with Dr. Watts to confirm diagnosis and to create a detailed management plan. I discussed possible interventions, such as a pain pump, should these be necessary. Additionally, I plan to coordinate with Dr. Allen for ongoing pain management and prescriptions. I discussed with the patient and her daughter the severe impact of her lower back pain and potential bone lesions. The need for her to see Oncology for a definitive diagnosis and treatment options was emphasized. I explained the possible interventions, including advanced options like a pain pump, and the steps for transitioning her to a structured pain program if necessary medications couldn't be managed by her primary care. Consent was given for the discussed short-term analgesic plan, and the patient was thoroughly advised on follow-up care and treatment evaluation with Oncology in the afternoon. New prescription for oxycodone 5 mg p.o. 3 times daily as needed. Discontinue tramadol prior to taking this medication. Patient was advised that this is a one time prescription, refills will need to be obtained from her primary care provider. If necessary patient may be eligible for the chronic opioid program however this most likely would cause undue stress given need for required monthly visits, pill counts and random urines. She would benefit from continued opioid prescribing from her primary care doctor or oncology. - Take oxycodone as prescribed for pain management. - Attend the follow-up appointment with Oncology for further evaluation and diagnosis. - Monitor pain levels and report any significant changes in symptoms. - Use a walker or any supportive device to aid mobility as needed. - Follow up with Dr. Allen for continued prescription management. - Contact me if current medications are insufficient for pain control or if any issues arise. Patient was informed and verbally consented to the use of an ambient scribe for clinic note documentation during this visit. Medications: Changed From oxycodone Partial Fill upon patient request. 5 mg PO Q8H PRN 5 tabs 0RF pain To oxycodone Discontinue Tramadol prior to starting this medication 5 mg PO Q8H PRN 20 tabs 0RF pain Coding Level of Care Code New Pt Level 4 (78221) Complex EM visit Add On G2211 Diagnoses Lesion of bone of thoracic spine M89.9 Lesion of bone of lumbosacral spine M89.9 Back pain M54.9
== END 2024-12-10 10:08 | disposition home or self-care (01) ==
LOC: HO.PMC 09:05
PROVIDERS: PCP Internal Medicine; Referring Provider Internal Medicine; Visit Provider Registered Nurse Emergency
DX: M89.9 Disorder of bone, unspecified (principal); M54.9 Dorsalgia, unspecified
CPT/HCPCS: 99204; G2211

== ENCOUNTER → 2024-12-10 09:04 | Outpatient (BNVA) | payer MEDICARE, OTHER, SELFPAY | PROVIDERS: PCP Internal Medicine; Referring Provider Internal Medicine; Visit Provider Registered Nurse Emergency | DX: M89.9 Disorder of bone, unspecified (principal); M54.9 Dorsalgia, unspecified | CPT/HCPCS: 99202 ==

== ENCOUNTER → 2024-12-10 13:00 | Outpatient (BNV) | payer MEDICARE, OTHER, SELFPAY | PROVIDERS: Visit Provider Internal Medicine | DX: C90.00 Multiple myeloma not having achieved remission (principal) | CPT/HCPCS: 99215; G2211 ==

== ENCOUNTER → 2024-12-17 08:21 | Outpatient (REF) | payer MEDICARE, OTHER, SELFPAY ==
--- NOTE | ~2024-12-17 | NM_ITS ---
EXERCISE MYOCARDIAL PERFUSION STUDY INDICATION: Atrial fibrillation TECHNIQUE: The patient was brought in for an exercise perfusion study on 12/17/2024. Patient performed exercise as per Smith protocol and was injected 25 mCi of sestamibi once target heart rate was achieved. Images were obtained using the SPECT gamma camera interlaced with the gating device. Images were obtained in supine position. Resting perfusion study was performed on 12/18/2024. Patient was administered 25 mCi of sestamibi intravenously at rest. Images were then obtained in supine position. Total DLP 88 mGy-cm. Images were processed with the software and compared side to side in short axis, horizontal long axis and vertical long axis views. FINDINGS: Raw aquisition reviewed. Arms by patient side. The stress perfusion study showed mildly diminished tracer uptake in the distal inferolateral wall. There is improvement with CT attenuation correction suggestive of diaphragmatic attenuation artifact. The gated study shows normal LV systolic function with calculated LVEF of > 70%. LV cavity is normal in size. The gated study shows normal wall thickening and contraction of segments. Resting study shows diminished tracer uptake in the distal part of inferolateral wall. There is improvement with CT attenuation correction suggestive of diaphragmatic attenuation artifact. Gating at rest reveals normal wall motion with ejection fraction at > 70%. The findings are consistent with fixed defect in the distal inferolateral wall that could be from diaphragmatic attenuation artifact. No clear reversible defects. NM/NM cardiolite stress test IMPRESSION: 1. Myocardial perfusion imaging study shows probably normal myocardial perfusion. 2. Gated LVEF is > 70% during stress and rest. 3. Transient ischemic dilatation not present. EKG component of the test reported separately. Electronically signed by: Loco Mendez MD 12/18/2024 04:06 PM EDT
--- NOTE | 2024-12-17 08:26 | CA_ITS ---
Acquisition Time: 2024-12-17 08:32:53 Total Exercise Time: 00:05:01 Test Indications: AFIB Medications: SEE H&P Protocol: SAHARA Max HR: 120 BPM 88% of Pred: 135 BPM Max BP: 192/80 mmHG Max Work Load: 4.6 METS Exercise stress test with exercise 5 mins 1 sec of Sahara Protocol, held at Stage 1, achieving 87% MPHR, with reports of SOB, no chest pain, with isolated PACs, with normotensive response to exercise (baseline HTN 178//90)- held her AM BB. Without any EKG changes meeting criteria for ischemia. In recovery, pt's breathing returned to baseline. Nuclear images pending. Test reviewed with Dr. Mendez. Referred By: [place] Electronically Signed By: Michael Byrne
== END ==
LOC: HO.CARD 08:21
PROVIDERS: PCP Internal Medicine; Visit Provider Internal Medicine Cardiovascular Disease
DX: I48.0 Paroxysmal atrial fibrillation (principal); R20.0 Anesthesia of skin; R20.2 Paresthesia of skin
CPT/HCPCS: 78452; 93017; 93242; A9500; J0280; J2785

== ENCOUNTER → 2024-12-17 08:26 | Outpatient (BNV) | payer MEDICARE, OTHER, SELFPAY | PROVIDERS: PCP Internal Medicine | DX: R06.02 Shortness of breath (principal); I49.1 Atrial premature depolarization | CPT/HCPCS: 78452; 93016; 93018 ==

== ENCOUNTER 2024-12-25 11:29 | Day surgery (SDC) | payer MEDICARE, OTHER, SELFPAY ==
--- OUTSIDE RECORDS SUMMARY | 2024-12-18 11:09 | XMS_ITS | Clinical Summary ---
Author Organization [facility] Address [address] [place] [address] Phone Care Team Providers Care Cath Lab Nurse Name Role Phone Unavailable Primary Care Provider Unavailabl e Social History Tobacco Use Types Packs/Day Years Used Date Smoking Tobacco: Never Assessed Comments Unknown Sex and Gender Information Value Date Recorded Sex Assigned at Not on file Legal Sex Female 11:01 AM EDT Gender Identity Not on file Sexual Orientation Not on file Plan of Treatment Upcoming Encounters Date Type Department Care Team (Late st Contact Info) Description 12/18/2024 1:00 PM EDT Appointment [facility] PET Scan [address] [place] [address] Health Maintenance Due Date Last Done Comments COVID-19 Vaccine (#1) 12/05/1945 DTaP,Tdap,and Td Vaccines (1 - Tdap) 12/05/1958 Pneumococcal Vaccine: 50+ Ye ars (1 of 2 - PCV) 12/05/1959 Zoster Vaccines (1 of 2) 12/05/1959 RSV Immunization Adult Patie nts (1 - 1-dose 75+ series) 12/05/2014 Depression Screening 12/18/2024 Falls Risk Assessment 12/18/2024 Medicare Annual Wellness Visit 12/18/2024 Osteoporosis Screening (Bone Density Screening) 12/18/2024 Social Influencers of Health Screening 12/18/2024 Influenza Vaccine (Season Ended) 2025 HIB Vaccines Aged Out No longer eligi ble based on patient's age to complete this topic HPV Vaccines Aged Out No longer eligi ble based on patient's age to complete this topic Hepatitis A Vaccines Aged Out No long er eligible based on patient's age to complete this topic Hepatitis B Vaccines Aged Out No long er eligible based on patient's age to complete this topic IPV Vaccines Aged Out No longer eligi ble based on patient's age to complete this topic MMR Vaccines Aged Out No longer eligi ble based on patient's age to complete this topic Meningococcal ACWY Vaccine Aged Out N o longer eligible based on patient's age to complete this topic Meningococcal B Vacine Aged Out No lo nger eligible based on patient's age to complete this topic RSV Immunization Patients Un zayda 20 months Aged Out No longer eligible b ased on patient's age to complete this topic Varicella Vaccines Aged Out No longer eligible based on patient's age to complete this topic Insurance MEDICARE [facility]
[2024-12-25] VITALS (10 sets, daily range): BP systolic 154–193; BP diastolic 71–90; PULSE 54–75; RESP 12–15; O2SAT 96–97; BMI 25.6
--- NOTE | ~2024-12-25 | CT_ITS ---
History: Multiple myeloma PROCEDURES: 1. Limited preprocedure CT of the pelvis. Permanent images saved in PACS. 2. 11 g bone marrow core biopsy of the left posterior iliac spine 3. 11 g bone marrow aspirate of the left posterior iliac spine CLINICIANS: Mark Howard NP Preprocedural imaging reviewed with Krunal Alatorre MD MEDICATIONS: -Versed, Fentanyl , and lidocaine 1% SQ -Antibiotics: None -For additional details, please see nursing flowsheet. COMPLICATIONS: None ESTIMATED BLOOD LOSS: < 5 ml CONTRAST: None SPECIMENS: 11 g core placed in formalin. Bone marrow aspirate placed in EDTA and sodium heparin tubes MODERATE SEDATION TIME: 30 min PROCEDURE NOTE: The procedure, risks, benefits, and alternatives were carefully explained to the patient and written informed consent was obtained. The patient was placed prone on the CT table. A timeout was performed. A limited CT of the pelvis was performed to localize posterior iliac spine and choose appropriate needle entry and trajectory. The patient was prepped and draped in usual sterile fashion. The skin, subcutaneous tissues, and periosteum were anesthetized with lidocaine. Under CT guidance, an 11-gauge bone marrow biopsy needle was advanced into the posterior iliac spine, with the tip positioned slightly cephalad. An 11-gauge core biopsy of the bone marrow was performed and was placed in formalin. Next, the 11-gauge bone marrow biopsy needle was then advanced into the posterior iliac spine, under CT guidance, with the tip positioned slightly caudal. A bone marrow aspirate was performed. The specimen was placed in the provided EDTA and sodium heparin tubes. The needle was removed. A dry dressing was applied and secured with Tegaderm. There were no immediate complications. The patient was stable after the procedure and was transferred to the post anesthesia care unit. The procedure was done under moderate sedation with a dedicated nurse for monitoring of vital signs. CT/CT biopsy asp core bone marrow Impression: CT-guided bone marrow biopsy and aspirate This procedure was performed by Mark Howard NP and supervised by Krunal Alatorre MD. Electronically signed by: Krunal Alatorre MD 01/01/2025 01:18 PM EDT
[2024-12-25 11:57] LABS: MANUAL DIFF FLAG NO
[2024-12-25 12:09] LABS: Basophils Percent Auto 0.6 % (0-2); Eosinophils Absolute Auto 0.3 X10*3/uL (0.0-0.4); Eosinophils Percent Auto 4.2 % (0-4); Hematocrit 37.4 % (37.0-47.0); Hemoglobin 12.7 g/dl (12.0-16.0); Imm Gran Abs Auto 0.02 X10*3/uL (0.00-0.03); Imm Gran Pct Auto 0.3 % (0.0-0.4); Lymphocytes Absolute Auto 2.5 X10*3/uL (1.2-4.9); Lymphocytes Percent Auto 35.8 % (20-40); Mean Corpuscular Hemoglobin 31.2 pg (27.0-33.0); Mean Corpuscular Volume 91.9 fL (80.0-98.0); Mean Platelet Volume 10.3 fL (9.4-12.3); Monocytes Absolute Auto 0.9 X10*3/uL (0.1-1.2); Monocytes Percent Auto 12.5 % (2-11); Neutrophils Absolute Auto 3.2 x10*3/uL (2.0-8.3); Neutrophils Percent Auto 46.6 % (45-73); Platelet Count 207 X10*3/uL (160-400); Red Blood Count 4.07 X10*6/uL (4.20-5.50); Red Cell Distribution Width 13.8 % (11.0-16.0)
[2024-12-25 12:10] LABS: INTERNATIONAL NORM RATIO 1.1 (0.9-1.1); Prothrombin Time 12.7 SEC (10.9-12.4)
[2024-12-25] MEDS: Midazolam HCl 2 MG/2 ML VIAL 0.5 MG IVPUSH (13:27)
[2024-12-25] MEDS: fentaNYL citrate/PF 100 MCG/2 ML VIAL 25 MCG IVPUSH (13:27)
[2024-12-25 14:31] LABS: Bone Marrow SEE SEPARATE REPORT
== END 2024-12-25 14:45 | disposition home or self-care (01) ==
PROVIDERS: Pathology Anatomic Pathology & Clinical Pathology; Radiology Diagnostic Radiology; PCP Internal Medicine; Visit Provider Internal Medicine
DX: C90.00 Multiple myeloma not having achieved remission (principal); M54.9 Dorsalgia, unspecified; I10 Essential (primary) hypertension; I48.91 Unspecified atrial fibrillation; G62.9 Polyneuropathy, unspecified; Z85.3 Personal history of malignant neoplasm of breast; E78.5 Hyperlipidemia, unspecified; Z79.01 Long term (current) use of anticoagulants; Z79.82 Long term (current) use of aspirin; Z79.899 Other long term (current) drug therapy; Z98.890 Other specified postprocedural states
CPT/HCPCS: 36415; 38222; 85025; 85610; 88184; 88185; 88237; 88264; 88305; 88311; 88313; 88341; 88342; 88344; 99152; J2003; J2250; J2310; J3010

== ENCOUNTER → 2024-12-25 12:48 | Outpatient (BNV) | payer MEDICARE, OTHER, SELFPAY | PROVIDERS: PCP Internal Medicine | DX: C90.00 Multiple myeloma not having achieved remission (principal) | CPT/HCPCS: 38222; 77012 ==

== ENCOUNTER 2025-01-13 13:09 | Outpatient (AMB) | payer MEDICARE, OTHER, SELFPAY ==
--- NOTE | 2025-01-13 13:27 | MHC.OFFVIS ---
Vital Signs 01/13/25 13:28 Height 5 ft 6 in BP 140/62 H Blood Pressure Location Lt brachial Position Sitting Pulse 59 Pulse Source Pulse Oximeter Intake Visit Reasons: follow-up [facility] dc Correctional Substance Abuse Counselor Required: No Tool Maintenance Worker: Tool Maintenance Worker Present Allergies hydralazine Allergy (Verified 01/13/25 13:30) Unknown pantoprazole Allergy (Verified 01/13/25 13:30) Unknown hydrochlorothiazide Adverse Reaction (Intermediate, Verified 01/13/25 13:30) Palpitations amlodipine Adverse Reaction (Verified 01/13/25 13:30) DIZZINESS sotalol Adverse Reaction (Verified 01/13/25 13:30) Palpitations HPI Comments Details: This is an 84-year-old female patient presenting for hospital discharge follow-up. Patient with a history of hypertension, hyperlipidemia, and multiple myeloma which is followed by Oncology, as well as recent new diagnosis of AFib identified during hospitalization in November. Patient states that she has had history of palpitations previously evaluated with Holter monitors that showed PACs. However, more recently she began experiencing chest pounding with some discomfort and fatigue accompanied with some elevated blood pressures. Prompted her to go to the ER where she was found to be in AFib with RVR. Patient was successfully treated with IV Cardizem and IV I amiodarone and converted to a normal sinus rhythm. Due to issues with sinus bradycardia, patient was discharged on Multaq and Eliquis. Patient however never started the Multaq due to financial reasons. Patient was left on atenolol. Since then, patient has undergone a stress test and a Holter monitoring. Patient states that she sometimes checks her own pulse where she notices sometimes it is irregular however is asymptomatic with it. Today, the patient reports feeling well overall and denies any cardiac symptoms including exertional chest pain, shortness of breath, palpitations, dizziness, orthopnea, PND, leg edema, fatigue, presyncope, or syncope. Patient states she has fully compliant with all her medications. [facility] Medical History Atrial fibrillation with RVR Impacted cerumen of both ears Bradycardia Dysplastic nevus Hyperglycemia Vitamin D deficiency Annual physical exam Palpitations Arrhythmia Leukoplakia of tongue Tachycardia Hyperlipidemia Peripheral neuropathy Hypertension Dysuria Surgical History H/O arthroscopy of knee H/O varicose vein ligation H/O: hysterectomy H/O mastectomy H/O colonoscopy Family History Father No problems noted. Mother No problems noted. Son Diabetes Social History Household Members: None Household Members Other:: lives alone, independent, daughter lives close Housing: House Do you presently have visiting nurse or other home services: No Alcohol intake: never Patient Tobacco Use Status: Never used Tobacco e-Cigarette/Vaping Use: Never Used Second Hand Smoke Exposure: No service: No Current occupational status: retired Gender identity: Female Cognitive needs: No Hearing needs: No Vision needs: Yes Review of Systems ENT Denies dizziness Card Denies chest pain, Denies chest pain at rest, Denies chest pain with activity, Denies rapid heart rate, Denies pedal edema, Denies edema, Denies leg edema, Denies lightheadedness, Denies palpitations, Denies dyspnea, Denies dyspnea on exertion and Denies orthopnea Resp Denies cough, Denies dyspnea and Denies dyspnea on exertion GI Denies hematochezia and Denies change in stool character Musc Denies abnormal gait, Denies limited range of motion, Denies muscle cramps, Denies muscle weakness, Denies numbness, Denies radiating pain into limb, Denies stiffness and Denies tingling Neuro Denies abnormal gait, Denies dizziness, Denies numbness and Denies tingling Endo Denies palpitations Physical Exam Vital Signs: Last Vital Signs Pulse 59 01/13/25 13:28 BP 140/62 H 01/13/25 13:28 Const General: cooperative, healthy appearing, comfortable and no acute distress Orientation/consciousness: patient oriented x3 HEENT Head: Yes normal to inspection Neck Neck: Yes normal visual inspection, Yes trachea midline and Yes supple Chest Chest palpation & inspection: normal inspection of the chest Resp Effort & Inspection: normal respiratory effort Auscultation: clear to auscultation bilaterally, no crackles, no rales, no rhonchi and no wheezes Cardio Jugular venous distension: no JVD Palpation: normal PMI Rate: regular rate Rhythm: regular rhythm Heart sounds: S1 normal heart sound present, S2 normal heart sound present, no click, no gallops, no murmurs and no rubs Peripheral pulses: Peripheral pulses 2+ throughout GI Inspection: Yes normal to inspection Palpation (GI): Soft to palpation Auscultation: normal bowel sounds Skin General skin exam: no rashes or lesions noted Neuro General: patient oriented x3 Extrem General: Yes normal to inspection, No no pedal edema and No calf tenderness Psych Appearance: grossly normal Mental Status: mental status grossly normal Speech and movement: Normal speech and movement present Assessment & Plan Assessment & Plan (1) Paroxysmal atrial fibrillation: Code(s): I48.0 - Paroxysmal atrial fibrillation Category: Medical Plan: 10/29/2024-echo study showed normal EF between 65-70% with restrictive filling pattern with elevated LV diastolic pressure, mildly dilated left atrium, mild aortic and mitral regurgitation, and mild dilation of ascending aorta at 3.9 cm. We will monitor this with repeat echo in a year. 12/17/2024-patient underwent myocardial perfusion study which was normal. 12/17/2024-and underwent Holter study to look for recurrence for AFib. A showed baseline normal sinus rhythm with average heart rate of 58 beats per minute, frequent sinus bradycardia 77% of the time and occasional PACs. Due to this, patient's atenolol was reduced from 37.5-25 mg daily. Continue Eliquis for full anticoagulation therapy. No reported signs of bleeding or falls. Continue atenolol for rate control approach. May need to consider antiarrhythmic in case of AFib recurrence with symptoms. We will check labs periodically. (2) Hypertension: Code(s): I10 - Essential (primary) hypertension Category: Medical Plan: Blood pressure today is mildly elevated. However, patient states blood pressures at home are stable. At this time no medication changes. Continue current regimen. Ideally, blood pressure goal less than 130/80. (3) Hyperlipidemia: Code(s): E78.5 - Hyperlipidemia, unspecified Category: Medical Plan: No recent LDL. Continue statin therapy with an LDL goal less than 70. (4) Hospital discharge follow-up: Code(s): Z09 - Encounter for follow-up examination after completed treatment for conditions other than malignant neoplasm Plan: As above. Advised heart healthy diet, regular exercise, med compliance, and management of vascular risk factors. We will follow up in the office in 4 months' time. In the interim, patient will call with any concerns or change in symptoms. This note was generated using voice recognition software. While every effort has been made to ensure accuracy and proper conditioner tumbler operator, there may be occasional errors that could affect the content or meaning of the described symptoms. Orders: Orders Basic Metabolic Panel Today I48.0 - Paroxysmal atrial fibrillation Complete Blood Count no Diff Today I48.0 - Paroxysmal atrial fibrillation Coding Level of Care Code Est Pt Level 4 (10302) Complex EM visit Add On G2211 Diagnoses Paroxysmal atrial fibrillation I48.0 Hypertension I10 Hyperlipidemia E78.5 Hospital discharge follow-up Z09 Time Spent (min) 35 Comment Time spent in reviewing the chart, test results, assessment, counseling and documentation.
[2025-01-13 13:28] VITALS: BP 140/62; PULSE 59
--- OUTSIDE RECORDS SUMMARY | 2025-01-13 15:11 | XMS_ITS | Clinical Summary ---
Author Organization [facility] Address [address] [place] [address] Phone Care Team Providers Care Tentmaker Name Role Phone Unavailable Primary Care Provider Unavailabl e Encounters Date Type Department Care Team Description 12/23/2024 7:31 AM EDT - 12/23/2024 11:59 PM EDT Hospital Encounter [facility] PET Scan [address] [place] [address] Discharge Disposition: Home or Self Care from Last 3 Months Social History Tobacco Use Types Packs/Day Years Used Date Smoking Tobacco: Never Assessed Comments Unknown Sex and Gender Information Value Date Recorded Sex Assigned at Not on file Legal Sex Female 11:01 AM EDT Gender Identity Not on file Sexual Orientation Not on file Plan of Treatment Health Maintenance Due Date Last Done Comments Pneumococcal Vaccine: 50+ Years (1 of 2 - PCV) 12/05/1959 Zoster Vaccines (1 of 2) 12/05/1959 RSV Immunization Adult Patients (1 - 1-dose 75+ series) 12/05/2014 DTaP,Tdap,and Td Vaccines (2 - Td or Tdap) 05/17/2022 05/17/2012 COVID-19 Vaccine ( season) 2024 09/05/2021, 05/16/2021, 04/25/2021 Cholesterol Screening (Lipid Panel) 12/18/2024 Depression Screening 12/18/2024 Falls Risk Assessment 12/18/2024 Hypertension/CHF/CAD Annual BMP Blood Test 12/18/2024 Medicare Annual Wellness Visit 12/18/2024 Osteoporosis Screening (Bone Density Screening) 12/18/2024 Social Influencers of Health Screening 12/18/2024 Influenza Vaccine (Season Ended) 2025 07/21/2021, 07/14/2019, 06/13/2017, Additional history exists HIB Vaccines Aged Out No longer eligi [...] age to complete this topic Meningococcal B Vaccine Aged Out No l onger eligible based on patient's age to complete this topic RSV Immunization Patients Under 20 months Aged Out No longer eligible based on patient's age to complete this topic Varicella Vaccines Aged Out No longer eligible based on patient's age to complete this topic Procedures Procedure Name Priority Date/Time Associated Diagnosis Comments PET CT WHOLE BODY INITIAL Routine 12/23/2024 9:43 AM EDT Multiple myeloma not having achieved remission ([facility] V24, [facility] V28) from Last 3 Months Results * PET CT Whole Body Initial (12/23/2024 9:43 AM EDT) Anatomical Region Laterality Modality Body Radiographic Lisseth ging 12/23/2024 9:46 AM EDT Impressions 12/23/2024 10:58 AM EDT Multiple FDG avid osseous lytic lesions in keeping with active myelomatous disease, the most significant including left iliac and T9 vertebral body lesions. Please note: The CT was acquired at a low radiation dose settings. ??The images are of nondiagnostic quality and used solely for purposes of attenuation correction and slice localization for the PET scan. ??If a diagnostic CT study is desired it must be ordered separately. -------- FINAL REPORT -------- Dictated By: Kate aDmon Dictated Date: 12/23/2024 09:46 ET Assigned Physician: Kate Damon Reviewed and Electronically Signed By: Kate Damon Signed Date: 12/23/2024 10:58 ET Workstation ID: [id number] Transcribed By: Self Edit Transcribed Date: 12/23/2024 10:09 ET Narrative 12/23/2024 10:58 AM EDT INDICATION: MULTIPLE MYELOMA. ??Patient has history of right breast cancer and hysterectomy. TECHNIQUE: FDG PET-CT imaging was performed from the head through the toes in a single acquisition with data set reconstructed in axial, coronal, and sagittal planes at the computer workstation with fused data from both the PET imaging study and attenuation correction CT. The CT portion of the examination was done strictly for attenuation correction and is not a true diagnostic CT examination. DLP: ??961 mGy-cm Radiopharmaceutical: 12.5 mCi of F-18 FDG IV. Blood glucose: 109 mg/dl. COMPARISON: Outside lumbar spine MRI and CT of the abdomen and pelvis November 2024 FINDINGS: HEAD AND NECK: No abnormal FDG activity. THORAX: No FDG avid thoracic lymphadenopathy. ??No suspicious FDG avid pulmonary nodules. ??Bibasilar atelectasis. ??6 mm opacity in the right lower lobe SUV max 1.1 which may represent mucous plugging, vessel or pulmonary nodule. ?? Postsurgical appearance of the right breast and axilla. ??Nonenlarged right axillary lymph nodes SUV max 1.4. ABDOMEN/PELVIS: No FDG avid abdominal lymphadenopathy. ??Nonspecific focal activity involving the rectosigmoid junction SUV max 5.9. ??Diverticulosis. ??Fat- containing umbilical hernia. ??Low-attenuation lesion in the left kidney without significant FDG activity. MUSCULOSKELETAL: Multiple osseous lytic lesions. 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 ??The most significant include: left iliac bone SUV max 6.6, T9 vertebral body extending into the posterior elements SUV max 7.4, T11 SUV Max 5.5, T12 SUV Max 4.3 and right lamina of L4 SUV Max 3.1. ??Compression deformities of the spine including T12, L1, L2 and L3. Procedure Note Kate Damon MD - 12/23/2024 INDICATION: MULTIPLE MYELOMA. Patient has history of right breast cancerand hysterectomy. TECHNIQUE: FDG PET-CT imaging was performed from the head through the toesin a single acquisition with data set reconstructed in axial, coronal, andsagittal planes at the computer workstation with fused data from both thePET imaging study and attenuation correction CT. The CT portion of theexamination was done strictly for attenuation correction and is not a truediagnostic CT examination. DLP: 961 mGy-cm Radiopharmaceutical: 12.5 mCi of F-18 FDG IV. Blood glucose: 109 mg/dl. COMPARISON: Outside lumbar spine MRI and CT of the abdomen and pelvisMarch 2024 FINDINGS: HEAD AND NECK: No abnormal FDG activity. THORAX: No FDG avid thoracic lymphadenopathy. No suspicious FDG avidpulmonary nodules. Bibasilar atelectasis. 6 mm opacity in the rightlower lobe SUV max 1.1 which may represent mucous plugging, vessel orpulmonary nodule. Postsurgical appearance of the right breast and axilla. Nonenlarged rightaxillary lymph nodes SUV max 1.4. ABDOMEN/PELVIS: No FDG avid abdominal lymphadenopathy. Nonspecific focalactivity involving the rectosigmoid junction SUV max 5.9. Diverticulosis.Fat-containing umbilical hernia. Low-attenuation lesion in the leftkidney without significant FDG activity. MUSCULOSKELETAL: Multiple osseous lytic lesions. For the purposes of thisreport, the patient has transitional lumbosacral anatomy with hypoplasticribs at T12. The most significant include: left iliac bone SUV max 6.6,T9 vertebral body extending into the posterior elements SUV max 7.4, T11SUV Max 5.5, T12 SUV Max 4.3 and right lamina of L4 SUV Max 3.1.Compression deformities of the spine including T12, L1, L2 and L3. IMPRESSION: Multiple FDG avid osseous lytic lesions in keeping with active myelomatousdisease, the most significant including left iliac and T9 vertebral bodylesions. Please note: The CT was acquired at a low radiation dose settings. The images are ofnondiagnostic quality and used solely for purposes of attenuationcorrection and slice localization for the PET scan. If a diagnostic CTstudy is desired it must be ordered separately. -------- FINAL REPORT -------- Dictated By: Kate Damon Dictated Date: 12/23/2024 09:46 ET Assigned Physician: Kate Damon Reviewed and Electronically Signed By: Marisol, Kate Signed Date: 12/23/2024 10:58 ET Workstation ID: [id number] Transcribed By: Self Edit Transcribed Date: 12/23/2024 10:09 ET Hamida Watts MD IMG NM PROCEDURES Final Result from Last 3 Months Insurance MEDICARE [facility] MEDICARE
== END 2025-01-13 13:59 | disposition home or self-care (01) ==
LOC: HO.HCS 13:10
PROVIDERS: PCP Internal Medicine
DX: I48.0 Paroxysmal atrial fibrillation (principal); I10 Essential (primary) hypertension; E78.5 Hyperlipidemia, unspecified; Z09 Encounter for follow-up examination after completed treatment for conditions other than malignant neoplasm
CPT/HCPCS: 99214; G2211

== ENCOUNTER → 2025-01-13 13:09 | Outpatient (BNVA) | payer MEDICARE, OTHER, SELFPAY | PROVIDERS: PCP Internal Medicine | DX: Z09 Encounter for follow-up examination after completed treatment for conditions other than malignant neoplasm (principal); I48.0 Paroxysmal atrial fibrillation; I10 Essential (primary) hypertension; E78.5 Hyperlipidemia, unspecified | CPT/HCPCS: 99212 ==

== ENCOUNTER 2025-01-23 12:01 | Outpatient (REF) | payer MEDICARE, OTHER, SELFPAY ==
--- NOTE | ~2025-01-23 | XR_ITS ---
EXAMINATION: XR LUMBOSACRAL SPINE CLINICAL INFORMATION: lower back and sacrum pain, s/p fall at home COMPARISON: December 06. TECHNIQUE: Three views of the lumbosacral spine. FINDINGS: S-shaped curvature of the thoracolumbar spine. Multilevel marginal osteophyte formation and endplate sclerosis and decreased intervertebral disc height. Superior endplate compression deformities representing 50% volume loss at L3 and to a lesser extent L2, L1 and T12. No acute cortical disruption or gross malalignment. Vascular calcifications, aorta. Sclerosis and the sacroiliac joints. XR/XR lumbar spine 2-3V IMPRESSION: Multilevel thoracolumbar spondylosis and scoliosis with the old superior endplate compression fracture deformities at multiple levels similar since prior exam. Electronically signed by: Kameron Dykes MD 01/23/2025 12:48 PM EDT
--- NOTE | ~2025-01-23 | XR_ITS ---
EXAMINATION: XR SACRUM AND COCCYX CLINICAL INFORMATION: lower back and sacrum pain, s/p fall at home COMPARISON: None available. TECHNIQUE: 2 views of the sacrum and 2 views of the coccyx were obtained. FINDINGS: Sclerosis and the sacroiliac joints bilaterally. Degenerative changes in the symphysis pubis. Spondylosis L4-5 and L5-S1. Osteopenia versus osteoporosis. Vascular calcifications, aorta. XR/XR sacrum coccyx min 2V IMPRESSION: No acute fracture. Electronically signed by: Kameron Dykes MD 01/23/2025 12:49 PM EDT
--- OUTSIDE RECORDS SUMMARY | 2025-01-23 12:23 | XMS_ITS | Clinical Summary ---
Author Organization [facility] Address [address] [place] [address] Phone Care Team Providers Care Interior Specialist Name Role Phone Unavailable Primary Care Provider Unavailabl e Encounters Date Type Department Care Team Description 12/23/2024 7:31 AM EDT - 12/23/2024 11:59 PM EDT Hospital Encounter [facility] PET Scan [address] [place] [address] Discharge Disposition: Home or Self [...] EDT Multiple myeloma not having achieved remission ([facility] V24, [facility] V28) from Last 3 Months [...] Signed Date: 12/23/2024 10:58 ET Workstation ID: [id number] Transcribed By: Self Edit Transcribed Date: 12/23/2024 [...] Kate Damon Reviewed and Electronically Signed By: Mairsol, Kate Signed Date: 12/23/2024 10:58 ET Workstation ID: [id number] Transcribed By: Self Edit Transcribed Date: 12/23/2024 10:09 ET Hamida Watts MD IMG NM PROCEDURES Final Result from Last 3 Months Insurance MEDICARE [facility] MEDICARE
== END 2025-01-23 12:02 | disposition home or self-care (01) ==
LOC: HO.XRAY 12:01
PROVIDERS: Visit Provider Nurse Practitioner Family
DX: M54.50 Low back pain, unspecified (principal)
CPT/HCPCS: 72100; 72220

== ENCOUNTER → 2025-01-23 12:08 | Outpatient (BNV) | payer MEDICARE, OTHER, SELFPAY | PROVIDERS: Visit Provider Radiology Diagnostic Radiology | DX: M54.50 Low back pain, unspecified (principal); M53.3 Sacrococcygeal disorders, not elsewhere classified | CPT/HCPCS: 72100; 72220 ==

== ENCOUNTER 2025-03-13 10:53 | Outpatient (REF) | payer MEDICARE, OTHER, SELFPAY ==
--- NOTE | ~2025-03-13 | US_ITS ---
EXAMINATION: US ABDOMEN COMPLETE CLINICAL INFORMATION: Acute transaminitis. COMPARISON: 11/27/2024 CT abdomen and pelvis. TECHNIQUE: Real-time imaging of the abdominal viscera. FINDINGS: PANCREAS: Visualized portions are unremarkable. ABDOMINAL AORTA: The proximal, mid, and distal segments are normal in caliber. INFERIOR VENA CAVA: Visualized portions are normal. LIVER: The liver is normal in size. Right hepatic lobe measures 13.2 cm in length. The liver contour is normal. Parenchymal echogenicity is normal. No focal hepatic lesion. There is no intrahepatic biliary duct dilatation seen. GALLBLADDER: The gallbladder is physiologically distended without evidence of stones, sludge, polyps, wall thickening or pericholecystic fluid. COMMON BILE DUCT: Normal in caliber measuring 0.4 cm in diameter. RIGHT KIDNEY: No hydronephrosis. No renal calculi or focal parenchymal lesions. The kidney measures 11.5 cm in maximum dimension. There are 3 subcentimeter simple cysts present. LEFT KIDNEY: No hydronephrosis. No renal calculi or focal parenchymal lesions. The kidney measures 11.8 cm in maximum dimension. There are 2 simple cysts present, larger measuring 2.8 x 2.9 x 2.7 cm. SPLEEN: The spleen measures 8.5 cm in maximum dimension. FREE FLUID: None. US/US abdomen complete IMPRESSION: 1. Normal liver, bile ducts, and gallbladder. 2. Bilateral small renal simple cysts. 3. Remainder of the exam is normal. Electronically signed by: Avtar Mccullough MD 03/13/2025 11:28 AM EDT
--- OUTSIDE RECORDS SUMMARY | 2025-03-13 12:00 | XMS_ITS | Patient Health Record ---
Author Organization [facility] Address [address] [place] [address] Care Team Providers Care Classification Clerk Name Role Phone Owen VIEYRA, Ora Primary Care Provider Unavailab Karol Yanes Unavailable [phone] Reason For Referral No Information Medications Medication SIG (Take, Route, Frequency, Duration) Notes Start Date End Date Status Aspirin 81 MG 1 tablet Orally Once a day Active Atenolol 50 MG 1 tablet Orally Once a day Active Night Splint AFO - L1930 as directed 01/20/2014 Not-Taking Digoxin 0.25 MG/ML 1 ml Injection Once a day Active Ranitidine HCl 150 MG 1 capsule Orally T wice a day Not-Taking Simvastatin 20 MG 1 tablet in the even ing Orally Once a day Active Lisinopril 40 MG 1 tablet Orally Once a day Active Social History Alcohol Screen Question Answer Notes Did you have a drink containing alcohol in the p ast year? No Points 0 Interpretation Negative Tobacco use other than smoking: Question Answer Notes Are you an other tobacco user? No Problems No Known Problems Plan Of Treatment Pending Test Test Name Order Date [id number] TENDON SHEATH/LIGAMENT 0 11/27/2019 Insurance Providers Payer Name Payer Address Payer Phone Subscriber Number Group Number Insured Name Patient Relationship to Insured Coverage Start Date Coverage End Date Medicare [facility] [employer] [address] [place] [address] [id number] Yesenia Fisher Self - patient is the insured [facility] [address] [place] [id number] Yesenia Fisher Self - patient is the insured Medical (General) History Medical History History ICD Code Reflux Measles breast cancer Mumps Surgical History Surgery Date(Month/Year) cancer surgery 07/1992 varicose vein stripping 1974 hysterectomy 1989
== END 2025-03-13 10:54 | disposition home or self-care (01) ==
LOC: HO.HMGCX 10:53
PROVIDERS: PCP Internal Medicine; Visit Provider Nurse Practitioner Family
DX: R74.01 Elevation of levels of liver transaminase levels (principal); C90.00 Multiple myeloma not having achieved remission
CPT/HCPCS: 76700

== ENCOUNTER → 2025-03-13 10:57 | Outpatient (BNV) | payer MEDICARE, OTHER, SELFPAY | PROVIDERS: PCP Internal Medicine; Visit Provider Radiology Diagnostic Radiology | DX: N20.0 Calculus of kidney (principal) | CPT/HCPCS: 76700 ==

== ENCOUNTER 2025-03-18 15:08 | Inpatient (IN) | payer MEDICARE, OTHER, SELFPAY ==
--- NOTE | ~2025-03-18 | MR_ITS ---
CLINICAL HISTORY: L2-L3 cord compression history of myeloma MR lumbar spine with and without gadolinium Comparison: CR/SR - XR LUMBAR SPINE 2-3V - 01/23/25 12:27 EDT MR/VT/SR - MR LUMBAR SPINE WO/W CON - 12/08/24 14:39 EDT Findings: Heterogeneous marrow consistent with known history of myeloma. Mild 2 mm increase in compression fracture of T12 when compared to prior MRI. Otherwise multilevel compression deformities and alignment are similar to prior. Cauda equina and conus medullaris within normal limits. Multilevel degenerative changes are similar to prior including at L2-L3. T12-L1: Mild spinal canal and mild bilateral neural foraminal stenosis. L1-L2: Mild spinal canal stenosis and moderate bilateral neural foraminal stenosis. L2-L3: Severe spinal canal stenosis and moderate bilateral neural foraminal stenosis. L3-L4: Moderate spinal canal stenosis, severe left and moderate right neural foraminal stenosis. L4-L5: Mild spinal canal, moderate left and mild right neural foraminal stenosis. L5-S1: Moderate bilateral neural foraminal stenosis. Fatty atrophy of the paraspinal muscles. IMPRESSION: 1. Progressive T12 compression fracture with 2 mm increased height loss compared to prior. 2. Severe spinal canal stenosis at L2-L3 and other multilevel degenerative changes are similar to prior. This document has been electronically signed by: Karina Apple MD on 03/18/2025 22:07:01
[2025-03-18 15:31] VITALS: BP 107/44; PULSE 64; RESP 18; O2SAT 98; BMI 23.4
--- OUTSIDE RECORDS SUMMARY | 2025-03-18 16:17 | XMS_ITS | Clinical Summary ---
Author Organization [facility] Address [address] [place] [address] Phone Care Team Providers Care Inspector Hairspring Truing Name Role Phone Unavailable Primary Care Provider Unavailabl e Encounters Date Type Department Care Team Description 12/23/2024 7:31 AM EDT - 12/23/2024 11:59 PM EDT Hospital Encounter [facility] PET Scan [address] [place] [address] Discharge Disposition: Home or Self [...] EDT Multiple myeloma not having achieved remission ([facility] V24, [facility] V28) from Last 3 Months Results * [...] low radiation dose settings. The images are of nondiagnostic quality and used solely for purposes of attenuation correction and slice localization for the PET scan. If a diagnostic CT study is desired it must be ordered separately. -------- FINAL REPORT -------- Dictated By: Kate Damon Dictated Date: 12/23/2024 09:46 ET Assigned Physician: Kate Damon Reviewed and Electronically Signed By: Kate Damon Signed Date: 12/23/2024 10:58 ET Workstation ID: [id number] Transcribed By: Self Edit Transcribed Date: 12/23/2024 10:09 ET Narrative 12/23/2024 10:58 AM EDT INDICATION: MULTIPLE MYELOMA. Patient has history of right breast cancer and [...] not a true diagnostic CT examination. DLP: 961 mGy-cm Radiopharmaceutical: 12.5 mCi of F-18 FDG IV. Blood glucose: 109 mg/dl. COMPARISON: Outside lumbar spine MRI and CT of the abdomen and pelvis November 2024 FINDINGS: HEAD AND NECK: No abnormal FDG activity. THORAX: No FDG avid thoracic lymphadenopathy. No suspicious FDG avid pulmonary nodules. Bibasilar atelectasis. 6 mm opacity in the right lower lobe SUV max 1.1 which may represent mucous plugging, vessel or pulmonary nodule. Postsurgical appearance of the right breast and axilla. Nonenlarged right axillary lymph nodes SUV max 1.4. ABDOMEN/PELVIS: No FDG avid abdominal lymphadenopathy. Nonspecific focal activity involving the rectosigmoid junction SUV max 5.9. Diverticulosis. Fat-containing umbilical hernia. Low-attenuation lesion in the left kidney without significant FDG activity. MUSCULOSKELETAL: Multiple osseous lytic lesions. 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 The most significant include: left iliac bone SUV max 6.6, T9 vertebral body extending into the posterior elements SUV max 7.4, T11 SUV Max 5.5, T12 SUV Max 4.3 and right lamina of L4 SUV Max 3.1. Compression deformities of the spine including T12, L1, [...] Signed Date: 12/23/2024 10:58 ET Workstation ID: [id number] Transcribed By: Self Edit Transcribed Date: 12/23/2024 10:09 ET Hamida Watts MD IMG NM PROCEDURES Final Result from Last 3 Months Insurance MEDICARE [facility] MEDICARE
--- NOTE | 2025-03-18 16:43 | ED_ITS ---
HPI - General Adult General Chief complaint: General Medical Stated complaint: weakness lower extremity Time Seen by Provider: 03/18/25 16:43 Source: patient Mode of arrival: ambulatory History of Present Illness ED Provider: HPI narrative: Patient's history of multiple myeloma with multiple thoracic and lumbar Gomez's metastatic lesions with multilevel called compression able to ambulate as such till today when while walking at 11:00 her right foot was dragging after her right knee gave out she was fell to the ground while unable to get up off her own EMS came to help her out, patient's does have increased lumbar spine pain for last 1 week patient was seen by oncologist and sent the patient here for further evaluation up to before this episode patient was able to ambulate patient is supposed to get palliative radiation treatment , , her medication Revlimid is on hold because of elevated liver functions Related Data Home Medications ?Medication ?Instructions ?Recorded ?Confirmed acetaminophen 500 mg tablet 1,000 mg PO BID PRN Back P ain 11/17/24 03/18/25 cholecalciferol (vitamin D3) 25 25 mcg PO DAILY 03/18/25 mcg (1,000 unit) capsule (Vitamin D3) simvastatin 20 mg tablet 20 mg PO BEDTIME 11/17/24 Previous Rx's ?Medication ?Instructions ?Recorded lisinopril 20 mg tablet 20 mg PO BID #180 tabs 07/01 atenolol 25 mg tablet 25 mg PO DAILY #135 tabs lorazepam 0.5 mg tablet 0.5 mg PO BEDTIME PRN Sleep/Restlessness #30 tabs loperamide 2 mg capsule (Imodium 2 mg PO TID PRN Diarr hea #30 caps 01/23/25 A-D) apixaban 5 mg tablet 5 mg PO BID #180 tabs ondansetron 8 mg disintegrating 8 mg PO Q8-12H PRN David sea #20 tabs 01/30/25 tablet magnesium hydroxide 400 mg/5 mL 30 ml PO DAILY PRN con stipation 02/16/25 oral suspension (Milk of Magnesia) #240 mL omeprazole 20 mg capsule,delayed 1 tab PO DAILY #90 ta bs 02/18/25 release acyclovir 400 mg tablet 400 mg PO BID #180 tabs 0603/11 lenalidomide 10 mg capsule 10 mg PO DAILY #14 caps (Revlimid) simethicone 80 mg chewable tablet 80 mg PO TID PRN Abd ominal 03/05/25 Discomfort #30 tabs sennosides 8.6 mg tablet (senna) 8.6 mg PO BEDTIME #30 tabs 03/08/25 hydrocortisone 2.5 % topical cream 1 appl topical BID #30 grams 03/12/25 lidocaine 5 % topical patch 1 patch topical DAILY #30 ea 03/12/25 (Lidoderm) morphine 15 mg tablet,extended 15 mg PO Q12H #60 tabs 03/16/25 release oxycodone 5 mg tablet 5 mg PO Q6H PRN Severe Pain (Scale 03/16/25 Score 7-10) #30 tabs Allergies Allergy/AdvReac Type Severity Reaction Status Date / Time hydralazine Allergy Unknown Verified 03/18/25 15:33 hydrochlorothiazide AdvReac Intermediate Palpitation Verified 03/18/25 15:33 s amlodipine AdvReac DIZZINESS Verified 03/18/25 15:33 sotalol AdvReac Palpitation Verified 03/18/25 15:33 s Review of Systems Review of Systems: Yes all other systems are reviewed and are negative [facility] Past Medical History Medical History Atrial fibrillation with RVR Impacted cerumen of both ears Bradycardia Dysplastic nevus Hyperglycemia Vitamin D deficiency Annual physical exam Palpitations Arrhythmia Leukoplakia of tongue Tachycardia Hyperlipidemia Peripheral neuropathy Hypertension Dysuria Surgical History H/O arthroscopy of knee H/O varicose vein ligation H/O: hysterectomy H/O mastectomy H/O colonoscopy Family History Family History Father No problems noted. Mother No problems noted. Son Diabetes Social History Social History Household Members: None Household Members Other:: lives alone, independent, daughter lives close Housing: House Do you presently have visiting nurse or other home services: No Alcohol intake: former Patient Tobacco Use Status: Never used Tobacco Smoked in Last 30 Days: No e-Cigarette/Vaping Use: Never Used Second Hand Smoke Exposure: No Use of substances other than those prescribed or required for medical reasons: No Advance Directives: No Advance Directives Information Provided: No service: No Current occupational status: retired Gender identity: Female Cognitive needs: No Hearing needs: No Vision needs: Yes Physical Exam ED Vital Signs: Vital Signs - 24 hr 03/18/25 15:31 03/18/25 18:00 03/18/25 18:06 Temperature 98.9 F Pulse Rate 64 68 Respiratory Rate 18 18 Blood Pressure 107/44 L 168/90 H Pulse Oximetry 98 97 Oxygen Delivery Method 03/18/25 19:56 03/18/25 21:15 Temperature 97.7 F Pulse Rate 70 65 Respiratory Rate 15 14 Blood Pressure 191/84 H 130/76 Pulse Oximetry 96 97 Oxygen Delivery Method Room Air Room Air BMI result Body Mass Index 23.4 Appearance: Alert. Oriented X3. No acute distress. Eyes: PERRLA, No Nystagmus ENT: Pharynx normal. Oral Mucosa moist Neck: Normal inspection. Neck supple. CVS: Normal heart rate and rhythm. Pulses normal. Respiratory: No respiratory distress. Equal air entry bilateral, no wheezing/rales/rhonchi Abdomen: Soft and nontender. Bowel sounds are present, no mass palpable, no CVA tenderness Skin: Skin warm and dry. Normal skin color. Normal skin turgor. back: Diffuse lumbar tenderness Right leg normal deep tendon reflexes dorsiflexion in both lower extremities 4/5 plantar flexion 5/5 no focal deficit noticed in lower extremities sensation is intact patient has just have diffuse lower extremity pain Neuro: Oriented X 3. No motor deficit. No sensory deficit.No cerebellar signs , cranial nerves II-XII intact Medications Administered Generic Name Dose Route Start Last Admin Trade Name Freq PRN Reason Stop Dose Admin Lactated Ringer's 1,000 mls @ 50 mls/hr 03/19/25 00:00 03/19/25 00:23 Lr IVCONT 50 mls/hr .Q20H CIELO Administration Discontinued Medications Generic Name Dose Route Start Last Admin Trade Name Freq PRN Reason Stop Dose Admin Ceftriaxone Sodium 1 gm 03/18/25 18:28 03/18/25 19:03 Ceftriaxone Sodium 1 Gm Vial IVPUSH 03/18/25 18:29 1 gm ONCE ONE Administration Dexamethasone Sodium Phosphate 10 mg 07/03/25 00:06 03/19/25 00:23 Dexamethasone Sod Phosphate 10 Mg/Ml Vial IVPUSH 03/19/25 00:07 10 mg ONCE ONE Administration Gadobutrol 7.5 ml 03/18/25 20:47 03/18/25 20:47 Gadobutrol 7.5 Ml Vial IVPUSH 03/18/25 20:48 6 ml ONCE ONE Administration Hydromorphone HCl 1 mg 03/18/25 17:53 03/18/25 17:58 Hydromorphone Hcl 1 Mg/Ml Syringe IVPUSH 03/18/25 17:54 1 mg ONCE ONE Administration Protocol Sodium Chloride 1,000 mls @ 999 mls/hr 03/18/25 18:32 03/18/25 21:11 Ns IV 03/18/25 19:32 Infused .Q1H1M ONE Infusion Midazolam HCl 1 mg 03/18/25 18:32 03/18/25 19:53 Midazolam Hcl 2 Mg/2 Ml Vial IVPUSH 03/18/25 18:33 1 mg ONCE ONE Administration Morphine Sulfate 4 mg 03/18/25 21:30 03/18/25 21:42 Morphine Sulfate 4 Mg/Ml Cartridge IVPUSH 03/18/25 21:31 4 mg ONCE ONE Administration Protocol Ondansetron HCl 4 mg 03/18/25 17:41 03/18/25 17:58 Ondansetron Hcl 4 Mg/2 Ml Vial IVPUSH 03/18/25 17:42 4 mg ONCE ONE Administration Medical Decision Making Medical Decision Making MDM Narrative: Patient with multiple myeloma and 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 [place] that right knee gave out because of the weakness and showed dragging her right foot on arrival she was complaining of increased pain in the back deep tendon reflexes were intact bilateral strength was equal lower extremity with normal dorsiflexion and plantar flexion MRI done which show ed slight progression of T12 compression fracture with 2 mm increase in height loss with severe spinal canal stenosis L2-L3. Case discussed with the neurosurgeon at [facility] for worsening of the pain and possibility of palliative radiation treatment. Advised treatment as outpatient no neurosurgical treatment required in the emergency. Case discussed with hospitalist will admit to the hospitalist service Patient is noted to be slightly hyponatremic likely multifactorial also has UTI was given Rocephin IV Differential Diagnosis Differential Diagnoses: The differential diagnosis associated with the presentation includes Lumbar canal stenosis/disc herniation/chronic arthritis/spinal stenosis/ Admission/Observation Consideration of admission/observation: Escalation of care including admission/observation considered Consult Healthcare Provider Management of the patient was discussed with: Hospitalist Lab Data [facility] Lab Attestation statement: I reviewed the patient's lab results. Labs: Lab Results 03/18/25 03/18/25 03/18/25 Range/Units 17:06 17:49 18:54 Osmolality 271 L (281-305) mosm/kg Lactic Acid 1.6 (0.5-2.0) mmol/L Urine Color Yellow Urine Appearance Clear Urine pH 6.0 (5.0-9.0) Ur Specific [place] <= 1.005 (1.005-1.025) Urine Protein Negative (Neg-Trace) mg/dL Urine Glucose (UA) Negative (Negative) mg/dL Urine Ketones Negative (Negative) mg/dL Urine Blood Negative (Negative) Urine Nitrite Positive H (Negative) Ur Leukocyte Esterase Large (3+) H (Negative) Urine RBC 0-2 (0-2) /HPF Urine WBC >50 H (0-5) /HPF Ur Squamous Epith Cells 0-2 (0-2) /HPF Urine Bacteria 2+ (None Seen) Hyaline Casts 0-2 (0-2) /LPF Urine Osmolality 141 L (373-1093) mosm/kg Ur Random Sodium < 20.0 mmol/L Ur Random Potassium 11.3 mmol/L Ur Random Chloride < 20.0 mmol/L Radiology Impression Discussion of test interpretation with radiology: I have reviewed the radiologist's reading. Radiologist Impression: MPRESSION: 1. Progressive T12 compression fracture with 2 mm increased height loss compared to prior. 2. Severe spinal canal stenosis at L2-L3 and other multilevel degenerative changes are similar to prior. This document has been electronically signed by: Karina Apple MD on 03/18/2025 22:07:01 External Record Review External record reviewed: Inpatient record, Office record, Outpatient record and Prior outpatient labs Critical Care Time Critical Care Time Critical Care Time: Yes Total Critical Care Time: 60 Attestation: Time is exclusive of separately billable procedures. Time includes: direct patient care, patient reassessment, coordination of patient care, interpretation of data (laboratory data, pulse oximetry, arterial blood gases and chest xrays), review of patient's medical records, medical consultation and documentation of patient care. Procedures excluded from critical care time: central intravenous line placement and electrocardiography. Discharge Plan Discharge Clinical Impression: 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, Acute UTI, Spinal stenosis, Weakness, Hyponatremia Patient Disposition: Admitted As Inpatient Print Language: Kiswahili
[2025-03-18 17:18] LABS: Appearance Urine Clear; Glucose Urine UA Negative (Negative); PH 6.0 (5.0-9.0); Specific Gravity - Urine <= 1.005 (1.005-1.025); UMIC TRIGGER UACC YES
[2025-03-18 17:31] LABS: UACC Culture Trigger YES
[2025-03-18 18:00] VITALS: PULSE 68; RESP 18; TEMP 37.2; O2SAT 97
[2025-03-18 18:06] VITALS: BP 168/90
[2025-03-18 18:07] LABS: Osmolality, Serum 271 mosm/kg (281-305)
[2025-03-18 19:56] VITALS: BP 191/84; PULSE 70; RESP 15; O2SAT 96
--- NOTE | 2025-03-18 20:40 | PC.NURSE ---
pt medicated according to mar prior to mri pt remains on monitor
[2025-03-18 21:15] VITALS: BP 130/76; PULSE 65; RESP 14; TEMP 36.5; O2SAT 97
--- NOTE | 2025-03-18 21:17 | PC.NURSE ---
pt returned from mri reporting 06/26 pain pt states i will try morphine now fmaily at bedside and agreed pt should try morphine. this rn made dr larsen aware. awaiting new orders at this time
--- NOTE | 2025-03-18 21:51 | PC.NURSE ---
Pt medicated per MAR for pain, daughter at bedside.
--- NOTE | 2025-03-18 22:25 | PC.NURSE ---
pt states still having pain in her lower back/ tailbone 02/24. This RN offered pt a pillow to offload tailbone, pt declined stating she has been shifting herself off of it as needed. Pt states she does not feel any hand tingling from the morphine.
--- NOTE | 2025-03-18 22:58 | PC.NURSE ---
pt sleeping, daughter left for the night.
--- NOTE | 2025-03-18 23:33 | PC.NURSE ---
assisted pt to bed side commode, 1 unmeasured urine.
--- NOTE | 2025-03-18 23:55 | PM.IMHP ---
History of Present Illness Date of Service: 03/18/25 Attending physician on admission: Kwasi Dennison Chief Complaint: weakness, fall pt is an 87 yo f with a pmhx significant for persisent a fib on eliquis, HLD, peripherial neuropathy, HTN and multiple myeloma with multiple thoracic and lumbar metastatic lesions with multilevel lumbar compression, who arrived to the ED via EMS due to difficult ambulating today with RLE weakness and ?R foot drop for the past week. today she had a fall around 11:00 due to her weakness and was unable to get off the ground but was with someone who was able to call EMS. she describes constant severe bilateral upper leg and low back pain and has had a recent increase in her home morphine regimen. She has had increased lumbar spine pain for the past week and was seen by the AIR CONDITIONING INSTALLER SUPERVISOR at her oncologist today who recommended she report to the ED for further evaluation due to hyponatremia and pain. of note the office visit note states that leo was able to ambulate in the office slowly but without difficulty or foot drop. she was supposed to start palliative raditation treatment but it is on hold due to her elevated liver enzymes. she is also reporting urianry frequency and memory issues for the past week. she denies any urinary or bowel incontinence. MRI lumbar spine in the ED shows progressive T12 compression fx with 2mm increased height loss compared to prior and severe spinal canal stenosis at L2-L3 and other multilevel degenerative changes are similar to prior. UA+ for UTI. BMP with hyponatremia. [facility] neurosurgery was contacted by the ED provider who suggested no need for transfer, decadron 4mg Q8H. Review of Systems Constitutional: Constitutional: Denies chills, Denies fatigue, Denies fever(s) and Denies headache(s) Eyes: Eyes: Denies change in vision and Denies loss of vision ENT: Denies headache(s), Denies nasal congestion and Denies sore throat Cardiovascular: Cardiovascular: Denies chest pain, Denies rapid heart rate, Denies leg edema, Denies lightheadedness and Denies dyspnea Respiratory: Respiratory: Denies chest congestion, Denies cough, Denies dyspnea and Denies wheezing Gastrointestinal: Gastrointestinal: Denies abdominal pain, Reports constipation, Denies nausea and Denies vomiting Genitourinary: Genitourinary: Denies difficulty voiding and Denies dysuria Comments: urinary frequency Musculoskeletal: Musculoskeletal: Reports back pain Integumentary/Breasts: Skin/Breast: Denies rash Neurologic: Denies confusion, Denies headache(s) and Denies loss of vision Psychiatric: Psychiatric: Denies confusion Endocrine: Endocrine: Denies fatigue Hematologic/Lymphatic: Hematologic/Lymphatic: Denies easy bleeding and Denies easy bruising Allergic/Immunologic: Allergic/Immunologic: Denies wheezing [facility] Medical History Atrial fibrillation with RVR Impacted cerumen of both ears Bradycardia Dysplastic nevus Hyperglycemia Vitamin D deficiency Annual physical exam Palpitations Arrhythmia Leukoplakia of tongue Tachycardia Hyperlipidemia Peripheral neuropathy Hypertension Dysuria Family History Father No problems noted. Mother No problems noted. Son Diabetes Surgical History H/O arthroscopy of knee H/O varicose vein ligation H/O: hysterectomy H/O mastectomy H/O colonoscopy Social History Household Members: None Household Members Other:: lives alone, independent, daughter lives close Housing: House Do you presently have visiting nurse or other home services: No Alcohol intake: former Patient Tobacco Use Status: Never used Tobacco Smoked in Last 30 Days: No e-Cigarette/Vaping Use: Never Used Second Hand Smoke Exposure: No Use of substances other than those prescribed or required for medical reasons: No Advance Directives: No Advance Directives Information Provided: No service: No Current occupational status: retired Gender identity: Female Cognitive needs: No Hearing needs: No Vision needs: Yes Meds Allergies Allergy/AdvReac Type Severity Reaction Status Date / Time hydralazine Allergy Unknown Verified 03/18/25 15:33 hydrochlorothiazide AdvReac Intermediate Palpitation Verified 03/18/25 15:33 s amlodipine AdvReac DIZZINESS Verified 03/18/25 15:33 sotalol AdvReac Palpitation Verified 03/18/25 15:33 s Home Medications ?Medication ?Instructions ?Recorded ?Confirmed ?Last Taken ?Type acetaminophen 500 mg tablet 1,000 mg PO BID PRN Back Pain 11/17/24 03/18/25 Unknown History cholecalciferol (vitamin D3) 25 25 mcg PO DAILY 11/17/24 03/18/25 11/27/24 History mcg (1,000 unit) capsule (Vitamin D3) simvastatin 20 mg tablet 20 mg PO BEDTIME 11/17/24 03/18/25 11/26/24 History Physical Exam Vital Signs and Narrative: Vital Signs: Last Vital Signs Temp 97.7 F 03/18/25 21:15 Pulse 65 03/18/25 21:15 Resp 14 03/18/25 21:15 BP 130/76 03/18/25 21:15 Pulse Ox 97 03/18/25 21:15 O2 Del Method Room Air 03/18/25 21:15 BMI result Body Mass Index 23.4 General: AOx3, no acute distress Resp: CTA bilaterally CVS: irreguarly irregular, normal rate GI: +BS, NT, no distention Skin: Warm, dry Neuro: Cranial nerves II-XII grossly intact bilaterally. Motor grossly intact bilaterally. 4/5 bilateral upper and lower extremity strength. Extremities: No pitting edema Psych: Appropriate affect Const: General: No confusion Orientation/consciousness: No confusion Neuro: General: No confusion Results Labs Labs: Laboratory Results - last 24 hr 03/18/25 03/18/25 03/18/25 17:06 17:49 18:54 Osmolality 271 L Lactic Acid 1.6 Urine Color Yellow Urine Appearance Clear Urine pH 6.0 Ur Specific [place] <= 1.005 Urine Protein Negative Urine Glucose (UA) Negative Urine Ketones Negative Urine Blood Negative Urine Nitrite Positive H Ur Leukocyte Esterase Large (3+) H Urine RBC 0-2 Urine WBC >50 H Ur Squamous Epith Cells 0-2 Urine Bacteria 2+ Hyaline Casts 0-2 Urine Osmolality 141 L Ur Random Sodium < 20.0 Ur Random Potassium 11.3 Ur Random Chloride < 20.0 Assessment and Plan (1) Multiple myeloma: Status: Acute (2) Lower back pain: Status: Acute (3) Lesion of bone of lumbosacral spine: Status: Acute (4) Weakness: Status: Acute (5) UTI (urinary tract infection): Status: Acute (6) Acute hyponatremia: Status: Acute Plan pt is an 87 yo f with a pmhx significant for persisent a fib on eliquis, HLD, peripherial neuropathy, HTN and multiple myeloma with multiple thoracic and lumbar metastatic lesions with multilevel lumbar compression, who arrived to the ED via EMS due to difficult ambulating today with RLE weakness and ?R foot drop for the past week.MRI lumbar spine in the ED shows progressive T12 compression fx with 2mm increased height loss compared to prior and severe spinal canal stenosis at L2-L3 and other multilevel degenerative changes are similar to prior. UA+ for UTI. BMP with hyponatremia. [facility] neurosurgery was contacted by the ED provider who suggested no need for transfer, decadron 4mg Q8H. the pt is neurologically intact, no focal dificits, no urinary or bowel incontinence. multiple myeloma with chronic low back pain and weakness - MRI with worsening T12 compression fx, L2-L3 spinal canal stenosis unchanged - no focal neuro deficits or foot drop currently - [facility] neurosurgery was contacted by ED provider with recommendations of no transfer, decadron 4mg Q6H - neurology consult - decadron 4mg Q6H - pain management with oxycodone and dialudid - oncology consult UTI - UA +, culture pending - no leukocytosis, vitals stable, no sepsis - started on ceftriaxone in ED, continue - monitor CBC and BMP acute hyponatremia -- likley secondary to poor PO intake - Na 126 - given 1L NS in ED - continue LR 50ml/hr - urine osmolality low, serum osmolality low, urine sodium normal - nephrology consult - follow BMP persistent a fib - continue eliquis and rate control HLD - continue statin HTN - continue home meds med rec pending full code VTE prophy: eliquis Pt with acute weakness from increased pain with multiple myeloma complicated by UTI and hyponatremia, requiring admission for at least 2 midnights stay for pain management, IV abx, and specialist consultations. Quality Stroke Does the patient have a stroke diagnosis?: No VTE Prior VTE?: No VTE Risk Level:: Medical - moderate - high VTE Device Contraindication: Treatment Not Indicated VTE Drug Contraindication: N/A - Med Ordered
[2025-03-19] VITALS (7 sets, daily range): BP systolic 117–175; BP diastolic 64–85; PULSE 65–78; RESP 14–19; TEMP 36–36.6; O2SAT 94–97; BMI 23.9
[2025-03-19] MEDS: Lactated Ringers 1,000 ML 50 ML IVCONT ×2 (00:23→18:49)
[2025-03-19 04:10] LABS: Hematocrit 36.6 % (37.0-47.0); Hemoglobin 13.1 g/dl (12.0-16.0); Mean Corpuscular HGB Conc 35.8 g/dl (31.0-35.0); Mean Corpuscular Hemoglobin 31.3 pg (27.0-33.0); Mean Corpuscular Volume 87.6 fL (80.0-98.0); NRBC Abs Auto 0.000 X10*3/uL (0.0-0.012); NRBC Pct Auto 0.0 /100WBC (0.0-0.2); Platelet Count 254 X10*3/uL (160-400); Red Blood Count 4.18 X10*6/uL (4.20-5.50); White Blood Count 9.0 X10*3/uL (4.8-10.8)
[2025-03-19 04:24] LABS: Anion Gap 12 (12-20); Blood Urea Nitrogen 9 mg/dL (9-16); Calcium 8.5 mg/dL (8.4-10.2); Carbon Dioxide 23 mmol/L (22-29); Chloride 96 mmol/L (96-108); Creatinine Clr Calc Pharmacy 72.6; Estimated Glomerular Filt Rate > 60; Potassium 4.3 mmol/L (3.3-5.1); Sodium 127 mmol/L (135-145)
--- NOTE | 2025-03-19 08:19 | PHA.MEDREC ---
Addendum entered by Shannon Tam RPh 03/19/25 08:37: reviewed by [facility]. Original Note: Pharmacy Consult ? Medication Reconciliation Pharmacy has completed the medication reconciliation. Spoke with pt and she confirmed her medications. Pt confirmed she is not taking the Acyclovir anymore and stopped it about 1 month ago, pt has no more outbreaks at this time. PT confirmed her Atenolol 25mg tab and confirmed her [employer] changed that from 1 1/2 tab QD to now 1 tab QD after getting a stress test a month ago. Pt was taking Revlimid 10mg but stopped it about 2.5 weeks ago and is waiting to figure out her medications and to see if her Dr wants to start that again. Pt was taking Morphine but states she stopped it due to it making her sick.
--- NOTE | 2025-03-19 09:24 | P.CONNP_ITS ---
History of Present Illness Reason for Consult Consult date: 03/19/25 Chief Complaint Chief complaint: weakness, fall, UTI hyponatremia History of Present Illness Narrative: 84 y/o female with multiple myeloma with multiple thoracic and lumbar metastatic lesions with multilevel lumbar compression (plan for palliative radiation treatment on hold due to elevated liver enzymes), in addition to afib, peripheral neuropathy, HTN, HLD. presented 03/18 with RLE weakness and difficulty ambulating, had a fall at home. Nephrology consulted for hyponatremia. patient has had chronic hyponatremia high 120s/low 130s for a number of months now with cancer diagnosis. serum sodium 125, serum osm 271, urine osm 141, urine sodium <20 patient reports not eating or drinking much over the last several days, not feeling well she does not take diuretics but used to for LE edema in the remote past denies new concerns/complaints outside of weakness/difficulty ambulating, fatigue. Review of Systems Constitutional: Reports fatigue and Reports weakness Cardiovascular: Denies chest pain, Denies leg edema, Denies lightheadedness and Denies dyspnea Respiratory: Denies dyspnea Gastrointestinal: Denies abdominal pain, Denies diarrhea, Denies nausea and Denies vomiting Genitourinary: Denies hematuria, Denies difficulty voiding, Denies dysuria and Denies flank pain Musculoskeletal: Denies back pain and Reports muscle weakness Skin/Breast: Denies rash Reports weakness Endocrine: Reports fatigue PMFSH Past Medical History Medical History Atrial fibrillation with RVR Impacted cerumen of both ears Bradycardia Dysplastic nevus Hyperglycemia Vitamin D deficiency Annual physical exam Palpitations Arrhythmia Leukoplakia of tongue Tachycardia Hyperlipidemia Peripheral neuropathy Hypertension Dysuria Family History Family History Father No problems noted. Mother No problems noted. Son Diabetes Surgical History Surgical History H/O arthroscopy of knee H/O varicose vein ligation H/O: hysterectomy H/O mastectomy H/O colonoscopy Social History Social History Household Members: None Household Members Other:: lives alone, independent, daughter lives close Housing: House Do you presently have visiting nurse or other home services: No Alcohol intake: former Patient Tobacco Use Status: Never used Tobacco Smoked in Last 30 Days: No e-Cigarette/Vaping Use: Never Used Second Hand Smoke Exposure: No Use of substances other than those prescribed or required for medical reasons: No Advance Directives: No Advance Directives Information Provided: No service: No Current occupational status: retired Gender identity: Female Cognitive needs: No Hearing needs: No Vision needs: Yes Meds Allergies Allergy/AdvReac Type Severity Reaction Status Date / Time hydralazine Allergy Unknown Verified 03/18/25 15:33 hydrochlorothiazide AdvReac Intermediate Palpitation Verified 03/18/25 15:33 s amlodipine AdvReac DIZZINESS Verified 03/18/25 15:33 sotalol AdvReac Palpitation Verified 03/18/25 15:33 s Active Medications: Current Medications Acetaminophen (Acetaminophen 325 Mg Tablet) 650 mg PO Q6H PRN PRN Reason: Pain, Mild 1-3,fever,headache Apixaban (Apixaban 5 Mg Tablet) 5 mg PO BID [facility] Last Admin: 03/19/25 08:30 Dose: 5 mg Calcium Carbonate (Calcium Carbonate 750 Mg Tab.Chew) 750 mg PO Q4H PRN PRN Reason: Heartburn Ceftriaxone Sodium (Ceftriaxone Sodium 1 Gm Vial) 1 gm IVPUSH Q24H [facility] Dexamethasone Sodium Phosphate (Dexamethasone Sod Phosphate 4 Mg/Ml Vial) 4 mg IVPUSH Q8H [facility] Last Admin: 03/19/25 09:21 Dose: Not Given Hydromorphone HCl (Hydromorphone Hcl 1 Mg/Ml Syringe) 0.5 mg IVPUSH Q4H PRN; Protocol PRN Reason: Pain, Severe (Pain Scale 7-10) Last Admin: 03/19/25 08:01 Dose: 0.5 mg Lactated Ringer's (Lr) 1,000 mls @ 50 mls/hr IVCONT .Q20H [facility] Last Admin: 03/19/25 00:23 Dose: 50 mls/hr Lisinopril (Lisinopril 20 Mg Tablet) 20 mg PO BID [facility]; Protocol Last Admin: 03/19/25 08:30 Dose: 20 mg Magnesium Hydroxide (Milk Of Magnesia 30 Ml Oral.Susp) 30 ml PO DAILY PRN PRN Reason: Constipation Melatonin (Melatonin 3 Mg Tablet) 6 mg PO BEDTIME PRN PRN Reason: Insomnia Ondansetron HCl (Ondansetron Hcl 4 Mg/2 Ml Vial) 4 mg IVPUSH Q8H PRN PRN Reason: Nausea and Vomiting Oxycodone HCl (Oxycodone Hcl Immed Release 5 Mg Tablet) 5 mg PO Q6H PRN PRN Reason: Pain, Moderate(Pain Scale 4-6) Senna (Sennosides 8.6 Mg Tablet) 8.6 mg PO BEDTIME [facility] Last Admin: 03/19/25 01:11 Dose: 8.6 mg Sodium Chloride (0.9 % Sodium Chloride Flush 3 Ml Syringe) 3 ml IVFLUSH QSHIFT [facility] Last Admin: 03/19/25 08:15 Dose: Not Given Home Medications ?Medication ?Instructions ?Recorded ?Confirmed ?Last Taken ?Type simvastatin 20 mg tablet 20 mg PO BEDTIME 11/17/2403/18/25 History atenolol 25 mg tablet 25 mg PO DAILY 03/19/2512/0903/18/25 History hydrocortisone 2.5 % topical cream 1 appl topical BID PRN Rash 03/19/25 03/19/25 Unknown History lidocaine 5 % topical patch 1 patch topical DAILY PRN Pain 03/19/25 03/19/25 Unknown History (Lidoderm) omeprazole 20 mg capsule,delayed 20 mg PO DAILY@0630 0 03/19/25 03/19/25 03/18/25 History release oxycodone 5 mg tablet 5 mg PO Q6H PRN severe pain 03/19/25 03/19/25 Unknown History sennosides 8.6 mg tablet (senna) 8.6 mg PO BEDTIME PRN Constipation 03/19/25 03/19/25 Unknown History Physical Exam Vital Signs: Last Vital Signs Temp 97.8 F 03/19/25 08:27 Pulse 76 03/19/25 08:27 Resp 19 03/19/25 08:27 BP 153/85 H 03/19/25 08:30 Pulse Ox 96 03/19/25 08:27 O2 Del Method Room Air 03/19/25 08:27 BMI result Body Mass Index 23.4 Const General: no acute distress, alert and awake Resp Effort & Inspection: normal respiratory effort and able to speak in complete sentences Auscultation: clear to auscultation bilaterally Cardio Jugular venous distension: no JVD Rate: regular rate Rhythm: regular rhythm Heart sounds: S1 normal heart sound present and S2 normal heart sound present GI Palpation (GI): Soft to palpation and nontender General: Yes no CVA tenderness Back/Spine/Pelvis Back: no CVA tenderness Skin Rashes: no rashes Extrem General: No edema and No pedal edema Results Lab Results 03/19/25 03:44 03/19/25 03:44 Lab results: Chemistry 03/19/25 03:44 Sodium 127 L Potassium 4.3 Carbon Dioxide 23 BUN 9 Creatinine 0.53 Calcium 8.5 Hematology 03/19/25 03:44 WBC 9.0 Hgb 13.1 Plt Count 254 Urinalysis 03/18/25 17:06 Urine Color Yellow Urine Appearance Clear Urine pH 6.0 Ur Specific [place] <= 1.005 Urine Protein Negative Urine Glucose (UA) Negative Urine Ketones Negative Urine Blood Negative Urine Nitrite Positive H Ur Leukocyte Esterase Large (3+) H Urine RBC 0-2 Urine WBC >50 H Ur Squamous Epith Cells 0-2 Hyaline Casts 0-2 Urine Studies 03/18/25 17:06 Urine Osmolality 141 L Assessment and Plan (1) Hyponatremia: Status: Acute Plan Hypotonic hyponatremia- likely hypovolemic from reduced oral intake recommend continuing IVF as ordered consider switching lisinopril to losartan, which may be contributing to chronic hyponatremia chronic 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 Procedures Date of Service Date of Service: 03/19/25
--- NOTE | 2025-03-19 12:08 | P.CNNE_ITS ---
History of Present Illness Data of Consult Service Date: 03/19/25 Primary Care Provider: Krista Allen MD HPI Reason for consult: Back pain and lumbar spine pathology 87 yo f with a pmhx significant for persisent a fib on eliquis, HLD, peripherial neuropathy, HTN and multiple myeloma with multiple thoracic and lumbar metastatic lesions with multilevel lumbar compression, who arrived to the ED via EMS due to difficult ambulating who came to hospital after a fall. When I talked to her, she said that she just lost her balance but otherwise she has been walking round. She was not in any distress and did not complain of any pain. There was no loss of bowel bladder control. Review of Systems 2 Review of Systems: No recent cold or flu-like illness. [facility] Past Medical History Medical History Atrial fibrillation with RVR Impacted cerumen of both ears Bradycardia Dysplastic nevus Hyperglycemia Vitamin D deficiency Annual physical exam Palpitations Arrhythmia Leukoplakia of tongue Tachycardia Hyperlipidemia Peripheral neuropathy Hypertension Dysuria Family History Family History Father No problems noted. Mother No problems noted. Son Diabetes Surgical History Surgical History H/O arthroscopy of knee H/O varicose vein ligation H/O: hysterectomy H/O mastectomy H/O colonoscopy Social History Social History Household Members: None Household Members Other:: lives alone, independent, daughter lives close Housing: House Do you presently have visiting nurse or other home services: No Alcohol intake: former Patient Tobacco Use Status: Never used Tobacco e-Cigarette/Vaping Use: Never Used Second Hand Smoke Exposure: No service: No Current occupational status: retired Gender identity: Female Cognitive needs: No Hearing needs: No Vision needs: Yes Meds Allergies Allergy/AdvReac Type Severity Reaction Status Date / Time hydralazine Allergy Unknown Verified 03/18/25 15:33 hydrochlorothiazide AdvReac Intermediate Palpitation Verified 03/18/25 15:33 s amlodipine AdvReac DIZZINESS Verified 03/18/25 15:33 sotalol AdvReac Palpitation Verified 03/18/25 15:33 s Active Medications: Current Medications Acetaminophen (Acetaminophen 325 Mg Tablet) 650 mg PO Q6H PRN PRN Reason: Pain, Mild 1-3,fever,headache Apixaban (Apixaban 5 Mg Tablet) 5 mg PO BID [facility] Last Admin: 03/19/25 08:30 Dose: 5 mg Atenolol (Atenolol 25 Mg Tablet) 25 mg PO DAILY [facility]; Protocol Atorvastatin Calcium (Atorvastatin Calcium 10 Mg Tablet) 10 mg PO BEDTIME [facility] Calcium Carbonate (Calcium Carbonate 750 Mg Tab.Chew) 750 mg PO Q4H PRN PRN Reason: Heartburn Ceftriaxone Sodium (Ceftriaxone Sodium 1 Gm Vial) 1 gm IVPUSH Q24H [facility] Dexamethasone Sodium Phosphate (Dexamethasone Sod Phosphate 4 Mg/Ml Vial) 4 mg IVPUSH Q8H [facility] Last Admin: 03/19/25 09:21 Dose: Not Given Hydromorphone HCl (Hydromorphone Hcl 1 Mg/Ml Syringe) 0.5 mg IVPUSH Q4H PRN; Protocol PRN Reason: Pain, Severe (Pain Scale 7-10) Last Admin: 03/19/25 08:01 Dose: 0.5 mg Lactated Ringer's (Lr) 1,000 mls @ 50 mls/hr IVCONT .Q20H [facility] Last Admin: 03/19/25 00:23 Dose: 50 mls/hr Lidocaine (Lidocaine 4 % Patch Adh..Patch) 1 patch TRANSDERMA DAILY PRN PRN Reason: Pain Lisinopril (Lisinopril 20 Mg Tablet) 20 mg PO BID [facility]; Protocol Last Admin: 03/19/25 08:30 Dose: 20 mg Lorazepam (Lorazepam 0.5 Mg Tablet) 0.5 mg PO BEDTIME PRN PRN Reason: Sleep/Restlessness Magnesium Hydroxide (Milk Of Magnesia 30 Ml Oral.Susp) 30 ml PO DAILY PRN PRN Reason: Constipation Melatonin (Melatonin 3 Mg Tablet) 6 mg PO BEDTIME PRN PRN Reason: Insomnia Omeprazole (Omeprazole 20 Mg Capsule.Dr) 20 mg PO DAILY@0630 [facility] Ondansetron HCl (Ondansetron Hcl 4 Mg/2 Ml Vial) 4 mg IVPUSH Q8H PRN PRN Reason: Nausea and Vomiting Oxycodone HCl (Oxycodone Hcl Immed Release 5 Mg Tablet) 5 mg PO Q6H PRN PRN Reason: Pain, Moderate(Pain Scale 4-6) Senna (Sennosides 8.6 Mg Tablet) 8.6 mg PO BEDTIME [facility] Last Admin: 03/19/25 01:11 Dose: 8.6 mg Senna (Sennosides 8.6 Mg Tablet) 8.6 mg PO BEDTIME PRN PRN Reason: Constipation Simethicone (Simethicone 80 Mg Tab.Chew) 80 mg PO TID PRN PRN Reason: Abdominal Discomfort Sodium Chloride (0.9 % Sodium Chloride Flush 3 Ml Syringe) 3 ml IVFLUSH QSHIFT [facility] Last Admin: 03/19/25 08:15 Dose: Not Given Home Medications ?Medication ?Instructions ?Recorded ?Confirmed ?Last Taken ?Type simvastatin 20 mg tablet 20 mg PO BEDTIME 11/17/2403/18/25 History atenolol 25 mg tablet 25 mg PO DAILY 03/19/25 0712/0903/18/25 History hydrocortisone 2.5 % topical cream 1 appl topical BID PRN Rash 03/19/25 03/19/25 Unknown History lidocaine 5 % topical patch 1 patch topical DAILY PRN Pain 03/19/25 03/19/25 Unknown History (Lidoderm) omeprazole 20 mg capsule,delayed 20 mg PO DAILY@0630 0 03/19/25 03/19/25 03/18/25 History release oxycodone 5 mg tablet 5 mg PO Q6H PRN severe pain 03/19/25 03/19/25 Unknown History sennosides 8.6 mg tablet (senna) 8.6 mg PO BEDTIME PRN Constipation 03/19/25 03/19/25 Unknown History Physical Exam 2 Vital Signs: Vital Signs: Last Vital Signs Temp 96.8 F 03/19/25 11:49 Pulse 76 03/19/25 11:49 Resp 16 03/19/25 11:49 BP 151/76 H 03/19/25 11:49 Pulse Ox 97 03/19/25 11:49 O2 Del Method Room Air 03/19/25 11:49 BMI result Body Mass Index 23.4 Neuro: Other: She is alert and awake with normal spontaneity of speech fluency comprehension and affect. Face is symmetrical. There was no focal arm or leg weakness. She is able to lift her both legs up against gravity up to about 80 degrees. No obvious problem with knee flexion or foot movement. Deep tendon reflexes are trace to 1+ with flexor plantars. Speech is normal. Results Labs 03/19/25 03:44 03/19/25 03:44 Labs: Short CBC 03/19/25 Range/Units 03:44 WBC 9.0 (4.8-10.8) X10*3/uL Hgb 13.1 (12.0-16.0) g/dl Hct 36.6 L (37.0-47.0) % Plt Count 254 (160-400) X10*3/uL BMP 03/19/25 03:44 Sodium 127 L Potassium 4.3 Chloride 96 Carbon Dioxide 23 BUN 9 Creatinine 0.53 Calcium 8.5 Urine 03/18/25 Range/Units 17:06 Urine Color Yellow Urine Appearance Clear Urine pH 6.0 (5.0-9.0) Ur Specific [place] <= 1.005 (1.005-1.025) Urine Protein Negative (Neg-Trace) mg/dL Urine Glucose (UA) Negative (Negative) mg/dL [place] [id number] Magnetic Resonance Report Signed Patient: Yesenia Fisher MR#: [id number] : 1940 Acct:[id number] Age/Sex: 84 / F ADM Date: 03/18/25 Loc: .ED Attending Dr: Ordering Physician: Delfino Craft MD Date of Service: 03/18/25 Procedure(s): MR lumbar spine wo/w con Accession Number(s): [id number] cc: Krista Allen MD; Delfino Craft MD~ CLINICAL HISTORY: L2-L3 cord compression history of myeloma MR lumbar spine with and without gadolinium Comparison: CR/SR - XR LUMBAR SPINE 2-3V - 01/23/25 12:27 EDT MR/[place]/SR - MR LUMBAR SPINE WO/W CON - 12/08/24 14:39 EDT Findings: Heterogeneous marrow consistent with known history of myeloma. Mild 2 mm increase in compression fracture of T12 when compared to prior MRI. Otherwise multilevel compression deformities and alignment are similar to prior. Cauda equina and conus medullaris within normal limits. Multilevel degenerative changes are similar to prior including at L2-L3. T12-L1: Mild spinal canal and mild bilateral neural foraminal stenosis. L1-L2: Mild spinal canal stenosis and moderate bilateral neural foraminal stenosis. L2-L3: Severe spinal canal stenosis and moderate bilateral neural foraminal stenosis. L3-L4: Moderate spinal canal stenosis, severe left and moderate right neural foraminal stenosis. L4-L5: Mild spinal canal, moderate left and mild right neural foraminal stenosis. L5-S1: Moderate bilateral neural foraminal stenosis. Fatty atrophy of the paraspinal muscles. IMPRESSION: 1. Progressive T12 compression fracture with 2 mm increased height loss compared to prior. 2. Severe spinal canal stenosis at L2-L3 and other multilevel degenerative changes are similar to prior. Microbiology Microbiology Results: Microbiology 03/18/25 Unknown Urine clean catch - Clean Catch Midstream Urine Culture - Preliminary Culture too young to evaluate. Assessment and Plan (1) Spinal stenosis: Qualifiers: Spinal region: lumbar Neurogenic claudication status: unspecified Q ualified Code(s): M48.061 - Spinal stenosis, lumbar region without neurogenic claudication Status: Acute 84 years old woman with [id number] upper lumbar spondylitic stenosis. Because of her agent overall situation, conservative management is recommended. At this time, rule out other causes of weakness or falls such as common infections. She should use a walker for ambulation or at least a cane to avoid any falls. Otherwise, pain management is recommended with avoidance of to much sedative medicines. Procedures Date of Service Date of Service: 03/19/25
--- NOTE | 2025-03-19 12:17 | MHC.CM.PN ---
CM met with Patient at bedside and addressed IMM with her, providing Patient with the original and a copy has been placed on the chart. Patient lives alone in a house and required no services nor DME [employer]. PT is recommending home with services and Patient is agreeable to a referral to [facility]. CM has initiated and will follow for dc planning. PCP is Dr. Krista Allen and Daughter/HCP/Katherin or Sister will transport at time of dc.
--- NOTE | 2025-03-19 12:56 | P.PNIM_ITS ---
Subjective Subjective Date of Service: 03/19/25 Interval History: Seen and examined this morning Follow-up for generalized weakness, fall, hyponatremia No specific complaints this morning Reports chronic pain in back radiating to bilateral anterior thighs, present for months. Denies loss of bladder or bowel control. Denies sensation changes/saddle anesthesia Review of Systems Review of Systems: Yes all other systems are reviewed and are negative Constitutional Constitutional: Denies chills and Denies fever(s) Physical Exam 2 Vital Signs: Vital Signs: Last Vital Signs Temp 96.8 F 03/19/25 11:49 Pulse 76 03/19/25 11:49 Resp 16 03/19/25 11:49 BP 151/76 H 03/19/25 11:49 Pulse Ox 97 03/19/25 11:49 O2 Del Method Room Air 03/19/25 11:49 BMI result Body Mass Index 23.9 Const: General: cooperative, comfortable, no acute distress, alert and awake Nutritional Appearance: average body habitus Orientation/consciousness: p atient oriented x3 Resp: Effort & Inspection: normal respiratory effort, able to speak in complete sentences, no respiratory distress and no use of accessory muscles Cardio: Rate: regular rate GI: Palpation (GI): Soft to palpation Neuro: Other: sensation intact b/l LE General: patient oriented x3, moves all extremities and CN's II-XI intact bilaterally Objective Data Active Medications Acetaminophen (Acetaminophen 325 Mg Tablet) 650 mg PO Q6H PRN PRN Reason: Pain, Mild 1-3,fever,headache Apixaban (Apixaban 5 Mg Tablet) 5 mg PO BID [facility] Last Admin: 03/19/25 08:30 Dose: 5 mg Documented By: JONATHAN Atenolol (Atenolol 25 Mg Tablet) 25 mg PO DAILY [facility]; Protocol Last Admin: 03/19/25 12:46 Dose: 25 mg Documented By: COURTNEY Atorvastatin Calcium (Atorvastatin Calcium 10 Mg Tablet) 10 mg PO BEDTIME [facility] Calcium Carbonate (Calcium Carbonate 750 Mg Tab.Chew) 750 mg PO Q4H PRN PRN Reason: Heartburn Ceftriaxone Sodium (Ceftriaxone Sodium 1 Gm Vial) 1 gm IVPUSH Q24H [facility] Dexamethasone Sodium Phosphate (Dexamethasone Sod Phosphate 4 Mg/Ml Vial) 4 mg IVPUSH Q8H [facility] Last Admin: 03/19/25 09:21 Dose: Not Given Documented By: JONATHAN Non-Admin Reason: Patient Refused Comments: pt states I take only 2 at home, it makes me go into afib Hydromorphone HCl (Hydromorphone Hcl 1 Mg/Ml Syringe) 0.5 mg IVPUSH Q4H PRN; Protocol PRN Reason: Pain, Severe (Pain Scale 7-10) Last Admin: 03/19/25 08:01 Dose: 0.5 mg Documented By: JONATHAN Lactated Ringer's (Lr) 1,000 mls @ 50 mls/hr IVCONT .Q20H [facility] Last Admin: 03/19/25 00:23 Dose: 50 mls/hr Documented By: MINH Lidocaine (Lidocaine 4 % Patch Adh..Patch) 1 patch TRANSDERMA DAILY PRN PRN Reason: Pain Lisinopril (Lisinopril 20 Mg Tablet) 20 mg PO BID [facility]; Protocol Last Admin: 03/19/25 08:30 Dose: 20 mg Documented By: JONATHAN Lorazepam (Lorazepam 0.5 Mg Tablet) 0.5 mg PO BEDTIME PRN PRN Reason: Sleep/Restlessness Magnesium Hydroxide (Milk Of Magnesia 30 Ml Oral.Susp) 30 ml PO DAILY PRN PRN Reason: Constipation Melatonin (Melatonin 3 Mg Tablet) 6 mg PO BEDTIME PRN PRN Reason: Insomnia Omeprazole (Omeprazole 20 Mg Capsule.Dr) 20 mg PO DAILY@0630 [facility] Ondansetron HCl (Ondansetron Hcl 4 Mg/2 Ml Vial) 4 mg IVPUSH Q8H PRN PRN Reason: Nausea and Vomiting Oxycodone HCl (Oxycodone Hcl Immed Release 5 Mg Tablet) 5 mg PO Q6H PRN PRN Reason: Pain, Moderate(Pain Scale 4-6) Senna (Sennosides 8.6 Mg Tablet) 8.6 mg PO BEDTIME [facility] Last Admin: 03/19/25 01:11 Dose: 8.6 mg Documented By: MINH Senna (Sennosides 8.6 Mg Tablet) 8.6 mg PO BEDTIME PRN PRN Reason: Constipation Simethicone (Simethicone 80 Mg Tab.Chew) 80 mg PO TID PRN PRN Reason: Abdominal Discomfort Sodium Chloride (0.9 % Sodium Chloride Flush 3 Ml Syringe) 3 ml IVFLUSH QSHIFT [facility] Last Admin: 03/19/25 08:15 Dose: Not Given Documented By: JONATHAN Non-Admin Reason: IV Running Labs 03/19/25 03:44 03/19/25 03:44 Labs: Laboratory Results - last 24 hr 03/18/25 03/18/25 03/18/25 17:06 17:49 18:54 MCV MCH MCHC RDW Plt Count MPV Absolute Nucleated RBC Nucleated RBC % (auto) Anion Gap Estim Creat Clear Calc Estimated GFR Random Glucose Osmolality 271 L Lactic Acid 1.6 Calcium Urine Color Yellow Urine Appearance Clear Urine pH 6.0 Ur Specific [place] <= 1.005 Urine Protein Negative Urine Glucose (UA) Negative Urine Ketones Negative Urine Blood Negative Urine Nitrite Positive H Ur Leukocyte Esterase Large (3+) H Urine RBC 0-2 Urine WBC >50 H Ur Squamous Epith Cells 0-2 Urine Bacteria 2+ Hyaline Casts 0-2 Urine Osmolality 141 L Ur Random Sodium < 20.0 Ur Random Potassium 11.3 Ur Random Chloride < 20.0 03/19/25 03:44 MCV 87.6 MCH 31.3 MCHC 35.8 H RDW 14.1 Plt Count 254 MPV 9.8 Absolute Nucleated RBC 0.000 Nucleated RBC % (auto) 0.0 Anion Gap 12 Estim Creat Clear Calc 72.6 Estimated GFR > 60 Random Glucose 164 H Osmolality Lactic Acid Calcium 8.5 Urine Color Urine Appearance Urine pH Ur Specific [place] Urine Protein Urine Glucose (UA) Urine Ketones Urine Blood Urine Nitrite Ur Leukocyte Esterase Urine RBC Urine WBC Ur Squamous Epith Cells Urine Bacteria Hyaline Casts Urine Osmolality Ur Random Sodium Ur Random Potassium Ur Random Chloride Microbiology Microbiology Results: Microbiology 03/18/25 Unknown Urine Culture - Preliminary Urine clean catch - Clean Catch Midstream Culture too young to evaluate. Assessment and Plan (1) UTI (urinary tract infection): Status: Acute Plan pt is an 87 yo f with a pmhx significant for persisent a fib on eliquis, HLD, peripherial neuropathy, HTN and multiple myeloma with multiple thoracic and lumbar metastatic lesions with multilevel lumbar compression, who arrived to the ED via EMS due to difficult ambulating today with RLE weakness and ?R foot drop for the past week.MRI lumbar spine in the ED shows progressive T12 compression fx with 2mm increased height loss compared to prior and severe spinal canal stenosis at L2-L3 and other multilevel degenerative changes are similar to prior. UA+ for UTI. BMP with hyponatremia. [facility] neurosurgery was contacted by the ED provider who suggested no need for transfer, decadron 4mg Q8H. the pt is neurologically intact, no focal dificits, no urinary or bowel incontinence. multiple myeloma with chronic low back pain and weakness - MRI with worsening T12 compression fx, L2-L3 spinal canal stenosis unchanged - no focal neuro deficits or foot drop currently - [facility] neurosurgery was contacted by ED provider with recommendations of no transfer, decadron 4mg Q6H - seen by neurology, recommend conservative management - decadron 4mg Q6H - likely d/c home with medrol dose elisha - pain management with oxycodone and dialudid - seen by PT, rec home with PT services - oncology consult UTI - no leukocytosis, vitals stable, no sepsis - started on ceftriaxone in ED, continue - follow urine culture acute hyponatremia -- acute on chronic likley secondary to poor PO intake/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 Quality Stroke Does the patient have a stroke diagnosis?: No VTE Prior VTE?: No VTE Risk Level:: Medical - moderate - high VTE Device Contraindication: Treatment Not Indicated VTE Drug Contraindication: N/A - Med Ordered
--- NOTE | 2025-03-19 15:42 | PM.HEMONCCN ---
Subjective - Subjective Chief complaint: Consult for: Multiple myeloma. Question of cord compression. Patient: known to practice within the last 3 years Consult date: 03/19/25 Requesting Physician: Buffy Primary Care Provider: Krista Allen MD Family Provider: Krista Allen Medical Summary: DIAGNOSIS: MULTIPLE MYELOMA. QUESTION CORD COMPRESSION. Office Technologist Utilized?: No - Irish Speaking HPI - Consult Narrative Reason for consult: Consult for: Multiple myeloma. Narrative: Yesenia Fisher is a 84 year old lady with a History of Multiple Myeloma, admitted with concern for cord compression. She was seen yesterday by Anupama Jones NP, for acute evaluation of worsening lower back pain associated with lower extremity weakness. She was actually seen in follow up last when she reported worsening lower back pain without red flag features. The oxycodone dose was increased to 5 mg every 4-6 hours. Despite this, she reported lack of adequate pain relief. On SundayMarch 16 she was started on MS Contin 15 mg p.o. b.i.d. in addition to p.r.n. oxycodone. MS Contin was increased to 30 mg after patient's daughter called in reporting ongoing lack of pain relief. In the meantime, patient was referred to [facility] for palliative radiation due to known thoracic and lumbar osseous metastatic lesions. She was due to repeat lab work due to marked elevation in transaminases the week prior. Revlimid was put on hold since 03/12/25, Velcade was held on 03/13/25. Her daughter reported that on her way out the house patient fell/ lowered herself to the ground and was unable to get up on her own. Her daughter also noted that she was dragging her right foot. She is unable to walk unassisted since the episode where last week she was able to walk the entire hallway from the bilingual medical receptionist to our department without difficulty. Additionally, patient reported worsening pruritus since starting increased dose/frequency of oxycodone. She noted that her face was flushed. She feels fatigued. No fevers or chills. She denies chest pain or difficulty breathing. Reports persistent issues with constipation and abdominal bloating without abdominal pain, nausea, or vomiting. Her appetite is low, however she is trying to eat as much as she can tolerate. Senna taken at bedtime seems to be working best for her as it does not cause abdominal cramping. MRI of the lumbar spine from 03/18 revealed: 1. Progressive T12 compression fracture with 2 mm increased height loss compared to prior. 2. Severe spinal canal stenosis at L2-L3 and other multilevel degenerative changes are similar to prior. [facility] Medical History:) Annual physical exam Arrhythmia Atrial fibrillation with RVR Bradycardia Dysplastic nevus Dysuria. Hyperglycemia Hyperlipidemia Hypertension Impacted cerumen of both ears Leukoplakia of tongue Palpitations Peripheral neuropathy Tachycardia Vitamin D deficiency. Surgical History:) H/O arthroscopy of knee H/O colonoscopy H/O mastectomy H/O varicose vein ligation H/O: hysterectomy Family History:) Father No problems noted. Mother No problems noted. Son Diabetes Social History:) Living Situation History: Household Members: None Household Members Other:: lives alone, independent, daughter lives close Housing: House Do you presently have visiting nurse or other home services: No Tobacco History: Patient Tobacco Use Status: Never used Tobacco e-Cigarette/Vaping Use: Never Used Review of Systems - Constitutional Comments: As per HPI - Cardiovascular Comments: As per HPI - Respiratory Comments: As per HPI - Genitourinary Comments: As per HPI - Neurologic Reports system reviewed and no additional complaints, except as documented, Reports as per HPI, Denies focal weakness, Denies paresthesias Review of Systems - Constitutional Reports system reviewed and no additional complaints, except as documented - Eyes Reports system reviewed and no additional complaints, except as documented - ENT Reports system reviewed and no additional complaints, except as documented - Cardiovascular Reports system reviewed and no additional complaints, except as documented - Respiratory Reports no additional respiratory complaints - Gastrointestinal Reports system reviewed and no additional complaints, except as documented - Genitourinary Reports no additional female genitourinary complaints - Musculoskeletal Reports system reviewed and no additional complaints, except as documented - Integumentary/Breasts Skin/Breast: Reports no additional skin complaints - Neurologic Reports weakness, Denies confusion, Denies headache(s), Denies loss of vision - Psychiatric Reports system reviewed and no additional complaints, except as documented - Endocrine Reports no additional endocrine complaints - Hematologic/Lymphatic Reports system reviewed and no additional complaints, except as documented - Allergic/Immunologic Reports system reviewed and no additional complaints, except as documented Oncology Screenings - ECOG Performance Status ECOG Performance Status: 2 [facility] Medical History: Medical History (Last Reviewed 03/19/25 @ 12:34 by Alyssa Bearden RN) Annual physical exam Arrhythmia Atrial fibrillation with RVR Bradycardia Dysplastic nevus Dysuria Hyperglycemia Hyperlipidemia Hypertension Impacted cerumen of both ears Leukoplakia of tongue Palpitations Peripheral neuropathy Tachycardia Vitamin D deficiency Functional capacity: wheelchair bound Patient : No Family History: Family History (Last Reviewed 03/18/25 @ 17:48 by Delfino Craft MD) Father No problems noted. Mother No problems noted. Son Diabetes Surgical History: Surgical History (Last Reviewed 03/19/25 @ 12:34 by Alyssa Bearden RN) H/O arthroscopy of knee H/O colonoscopy H/O mastectomy H/O varicose vein ligation H/O: hysterectomy Social History: Social History (Last Reviewed 03/18/25 @ 17:48 by Delfino Craft MD) Living Situation History: Household Members: None Household Members Other:: lives alone, independent, daughter lives close Housing: House Do you presently have visiting nurse or other home services: No Tobacco History: Patient Tobacco Use Status: Never used Tobacco e-Cigarette/Vaping Use: Never Used Second Hand Smoke Exposure: No Occupation Assessmet: service: No Current occupational status: retired Sex/Gender Assessment: Gender identity: Female Home Medications and Allergies Current Medications: Current Medications Acetaminophen (Acetaminophen 325 Mg Tablet) 650 mg PO Q6H PRN PRN Reason: Pain, Mild 1-3,fever,headache Apixaban (Apixaban 5 Mg Tablet) 5 mg PO BID [facility] Last Admin: 03/19/25 08:30 Dose: 5 mg Atenolol (Atenolol 25 Mg Tablet) 25 mg PO DAILY [facility]; Protocol Last Admin: 03/19/25 12:46 Dose: 25 mg Calcium Carbonate (Calcium Carbonate 750 Mg Tab.Chew) 750 mg PO Q4H PRN PRN Reason: Heartburn Ceftriaxone Sodium (Ceftriaxone Sodium 1 Gm Vial) 1 gm IVPUSH Q24H [facility] Dexamethasone Sodium Phosphate (Dexamethasone Sod Phosphate 4 Mg/Ml Vial) 4 mg IVPUSH Q8H [facility] Last Admin: 03/19/25 09:21 Dose: Not Given Hydromorphone HCl (Hydromorphone Hcl 1 Mg/Ml Syringe) 0.5 mg IVPUSH Q4H PRN; Protocol PRN Reason: Pain, Severe (Pain Scale 7-10) Last Admin: 03/19/25 08:01 Dose: 0.5 mg Lactated Ringer's (Lr) 1,000 mls @ 50 mls/hr IVCONT .Q20H [facility] Last Admin: 03/19/25 00:23 Dose: 50 mls/hr Lidocaine (Lidocaine 4 % Patch Adh..Patch) 1 patch TRANSDERMA DAILY PRN PRN Reason: Pain Lisinopril (Lisinopril 20 Mg Tablet) 20 mg PO BID [facility]; Protocol Last Admin: 03/19/25 08:30 Dose: 20 mg Lorazepam (Lorazepam 0.5 Mg Tablet) 0.5 mg PO BEDTIME PRN PRN Reason: Sleep/Restlessness Magnesium Hydroxide (Milk Of Magnesia 30 Ml Oral.Susp) 30 ml PO DAILY PRN PRN Reason: Constipation Melatonin (Melatonin 3 Mg Tablet) 6 mg PO BEDTIME PRN PRN Reason: Insomnia Omeprazole (Omeprazole 20 Mg Capsule.Dr) 20 mg PO DAILY@0630 [facility] Ondansetron HCl (Ondansetron Hcl 4 Mg/2 Ml Vial) 4 mg IVPUSH Q8H PRN PRN Reason: Nausea and Vomiting Oxycodone HCl (Oxycodone Hcl Immed Release 5 Mg Tablet) 5 mg PO Q6H PRN PRN Reason: Pain, Moderate(Pain Scale 4-6) Senna (Sennosides 8.6 Mg Tablet) 8.6 mg PO BEDTIME [facility] Last Admin: 03/19/25 01:11 Dose: 8.6 mg Senna (Sennosides 8.6 Mg Tablet) 8.6 mg PO BEDTIME PRN PRN Reason: Constipation Simethicone (Simethicone 80 Mg Tab.Chew) 80 mg PO TID PRN PRN Reason: Abdominal Discomfort Sodium Chloride (0.9 % Sodium Chloride Flush 3 Ml Syringe) 3 ml IVFLUSH QSHIFT [facility] Last Admin: 03/19/25 08:15 Dose: Not Given Home Medications ?Medication ?Instructions ?Recorded ?Confirmed ?Type simvastatin 20 mg tablet 20 mg PO BEDTIME 11/17/24 03/19/25 History atenolol 25 mg tablet 25 mg PO DAILY 03/19/25 03/19/25 History hydrocortisone 2.5 % topical cream 1 appl topical BID PRN Rash 03/19/25 03/19/25 History lidocaine 5 % topical patch 1 patch topical DAILY PRN Pain 03/19/25 03/19/25 History (Lidoderm) omeprazole 20 mg capsule,delayed 20 mg PO DAILY@0630 03/19/25 03/19/25 History release oxycodone 5 mg tablet 5 mg PO Q6H PRN severe pain 03/19/25 03/19/25 History sennosides 8.6 mg tablet (senna) 8.6 mg PO BEDTIME PRN Constipation 03/19/25 03/19/25 History Allergies Allergy/AdvReac Type Severity Reaction Status Date / Time hydralazine Allergy Unknown Verified 03/18/25 15:33 hydrochlorothiazide AdvReac Intermediate Palpitation Verified 03/18/25 15:33 s amlodipine AdvReac DIZZINESS Verified 03/18/25 15:33 sotalol AdvReac Palpitation Verified 03/18/25 15:33 s Physical Exam Vital signs: Vital Signs Temp 96.8 F 03/19/25 15:26 Pulse 65 03/19/25 15:26 Resp 16 03/19/25 15:26 BP 117/64 03/19/25 15:26 Pulse Ox 95 03/19/25 15:26 O2 Del Method Room Air 03/19/25 15:26 Intake & Output 03/18/25 03/19/25 03/19/25 18:59 06:59 18:59 Intake Total 1000 / 1000 360 / 360 Balance 1000 / 1000 360 / 360 Intake: Intake, Oral Amount 360 / 360 Intake, IV Amount 1000 / 1000 0.9 % Sodium Chloride 1,000 ml 1000 / 1000 @ 999 mls/hr IV .Q1H1M ONE Rx#: [id number] Other: Lunch % Eaten 75% Eating (Feeding) Ability Independent Number of Unmeasured Voids 2 Urine Bathroom Urine Color Yellow Last Bowel Movement 03/16/25 Weight 65.771 kg 67.1 kg Weight 67.1 kg - Constitutional Present: mild distress - Routine HEENT Exam Head: Present: normal inspection, normocephalic Eye: Absent: implant ENT: Present: mucous membranes moist Hem/Onc Consult Result - Labs CBC & Chem 7: 03/21/25 05:05 03/22/25 05:42 Labs: Short CBC 03/19/25 Range/Units 03:44 WBC 9.0 (4.8-10.8) X10*3/uL Hgb 13.1 (12.0-16.0) g/dl Hct 36.6 L (37.0-47.0) % Plt Count 254 (160-400) X10*3/uL BMP 03/19/25 03:44 Sodium 127 L Potassium 4.3 Chloride 96 Carbon Dioxide 23 BUN 9 Creatinine 0.53 Calcium 8.5 Urine 03/18/25 Range/Units 17:06 Urine Color Yellow Urine Appearance Clear Urine pH 6.0 (5.0-9.0) Ur Specific [place] <= 1.005 (1.005-1.025) Urine Protein Negative (Neg-Trace) mg/dL Urine Glucose (UA) Negative (Negative) mg/dL Assessment and Plan Patient Active problem list reviewed?: Yes (1) Multiple myeloma Problem details: IgG kappa monoclonal band on immunofixation 11/2024 Status: Acute Assessment and plan: This is a 84-year-old woman with IgG kappa multiple myeloma diagnosed in November 2024. Serum immunofixation showed IgG kappa monoclonal band with M spike of 3.6 gram/dL. Free kappa/lambda right chain ratio was elevated at 90.63. Urine immunofixation showed faint IgG kappa monoclonal band and free monoclonal kappa band. Beta-2 microglobulin was elevated at 3.11. PET-CT performed at [facility] showed multiple osseous lytic lesions, most prominent in left iliac bone SUV 6.6, T9 vertebral body SUV max 7.4, T11 SUV 5.5, T12 SUV 4.3. Compression deformities of the spine including T12, L1, L2 and L3. For her bone lesions and hypercalcemia, she started on denosumab 120 mg subcu monthly. First dose given 12/10/24. She experienced flu-like symptoms and nausea which have now resolved. First-line therapy with RVD regimen was discussed with patient by Dr. Watts. Her performance status is rather frail and 4 drug regimen using up friend Darzalex might be too much for her. She is not a candidate for stem cell transplantation. We discussed possible side effects of treatment including neuropathy, risk of infections and organ toxicity. She was be started on acyclovir prophylaxis. In the setting of known RVD cycle 3 day 15 on 03/06/25. She admits to taking Revlimid twice a day for 2-3 days the first week of February. Revlimid was held from 02/21 and restarted at reduced dose of 10 mg on 03/06. She stopped taking Acyclovir 2 weeks ago as she believes it worsens her constipation and abdominal cramping. Dr. Watts is aware. The dexamethasone 20 mg (50% dose) seems to be working very well for her. She denies any further tremors nor episodes of afib. Converted to normal sinus rhythm without the need for medication. Constipation. At baseline. Reports small bowel movement yesterday. No melena or hematochezia. Takes senna at bedtime. This seems to be working the best for her. She was advised to try Metamucil to help keep her regular. Rash and prurirus. Suspected drug eruption secondary to Revlimid, given timing of onset and clinical features. Topical hydrocortisone 2.5% seems to be helping. The rash has resolved. Today, patient reports mild pruritus involving the back and arms. There is no rash. Advised to try using the topical hydrocortisone as she is unable to tolerate Benadryl (reports feeling anxious/jittery) nor steroids (afib/. Offered hydroxyzine prescription, however she does not want to take any new medications. Patient reports worsening pruritus since starting increased dose/frequency of oxycodone. She notes today that her face is flushed. Transaminitis. Lab work prior to scheduled treatment revealed markedly elevated LFTs. AST/ALT 266/605 up from 30/35 on 03/05 respectively. Total bilirubin up to 1.2 from 1 on 03/05, 1.3 on 02/27. She denies abdominal pain. No nausea, vomiting. Exam unremarkable. No excessive acetaminophen use, new medications, or EtOH intake. Patient received cycle 3, day 15 RVD at reduced dose of 10 mg on 03/06. Abdominal ultrasound and hepatitis panel were unremarkable. LFT elevation is likely therapy related. Treatment will be held on 03/13, will hold Revlimid; repeat labs planned for 03/28 with follow-up scheduled with Dr. Watts the week of 03/23. Today, bilirubin 1.3 up from 1.2 a week prior. LFts are improving. Back pain and bilateral lower extremity pain and weakness Patient is here for acute evaluation of worsening lower back pain now associated with lower extremity weakness. She is accompanied by her daughter. She was seen here in follow up last when she reported worsening lower back pain without red flag features. The oxycodone dose was increased to 5 mg every 4-6 hours despite this patient reported lack of adequate pain relief. On SundayMarch 16 she was started on MS Contin 15 mg p.o. b.i.d. in addition to p.r.n. oxycodone. MS Contin was increased to [address] Guillaume after patient's daughter called in reporting ongoing lack of pain relief. In the meantime, patient was referred to [facility] for palliative radiation due to known thoracic and lumbar osseous metastatic lesions. Today, she was due to repeat lab work due to marked elevation in transaminases the week prior. Revlimid is on hold since 03/12/25, Velcade was held on 03/13/25. Her daughter reports the her way out the house patient fell/ lowered herself to the ground and was unable to get up on her own. Required assistance from fire department. Her daughter is under the impression that now she is dragging her right foot. She is unable to walk unassisted since the episode where last week she was able to walk the entire hallway from the bilingual medical receptionist to our department without difficulty. She feels fatigued. No fevers or chills. She denies chest pain or difficulty breathing. Reports persistent issues with constipation and abdominal bloating without abdominal pain, nausea, or vomiting. Her appetite is low, however she is trying to eat as much as she can tolerate. 5. Back pain and bilateral lower extremity pain and weakness Patient is here for acute evaluation of worsening lower back pain now associated with lower extremity weakness. She is accompanied by her daughter. She was seen here in follow up last when she reported worsening lower back pain without red flag features. The oxycodone dose was increased to 5 mg every 4-6 hours despite this patient reported lack of adequate pain relief. On SundayMarch 16 she was started on MS Contin 15 mg p.o. b.i.d. in addition to p.r.n. oxycodone. MS Contin was increased to [address] Guillaume after patient's daughter called in reporting ongoing lack of pain relief. In the meantime, patient was referred to [facility] for palliative radiation due to known thoracic and lumbar osseous metastatic lesions. Today, she was due to repeat lab work due to marked elevation in transaminases the week prior. Revlimid is on hold since 03/12/25, Velcade was held on 03/13/25. Her daughter reports the her way out the house patient fell/ lowered herself to the ground and was unable to get up on her own. Required assistance from fire department. Her daughter is under the impression that now she is dragging her right foot. She is unable to walk unassisted since the episode where last week she was able to walk the entire hallway from the bilingual medical receptionist to our department without difficulty. She feels fatigued. No fevers or chills. She denies chest pain or difficulty breathing. Reports persistent issues with constipation and abdominal bloating without abdominal pain, nausea, or vomiting. Her appetite is low, however she is trying to eat as much as she can tolerate. Senna taken at bedtime seems to be working best for her as it does not cause abdominal cramping. Prior MRI of T/L spine results performed 12/08/24 were again discussed with patient and her daughter. At that time MRI showed subacute compression deformity of T12, L1 and L3. Focal mildly expansile myelomatous lesion in the inferior spinous processes of T12 and right lamina of L4. Osseous metastasis resulting in tumor infiltration at T9, T12 and L1 levels with left lateral epidural/subdural central canal extension at T9 resulting in 20-30% central spinal canal stenosis. No cord compression. Acute to subacute pathological compression fractures of T12 and L1. Palliative radiation therapy was recommended to help manage pain related to osteolytic lesions from multiple myeloma involving the thoracic and lumbar spine. Patient was referred to [facility] radiation oncology - awaiting consultation. MRI of the lumbar spine from 03/18 revealed: 1. Progressive T12 compression fracture with 2 mm increased height loss compared to prior. 2. Severe spinal canal stenosis at L2-L3 and other multilevel degenerative changes are similar to prior. 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 This was a significant change from her baseline functional status. Given the severity of her symptoms recent concern for possible neurologic compromise or disease progression and inadequate pain control, she was transferred to the emergency department for further evaluation and management. DATA BASE: MRI lumbar spine in the ED shows progressive T12 compression fx with 2mm increased height loss compared to prior and severe spinal canal stenosis at L2-L3 and other multilevel degenerative changes are similar to prior. She is neurologically intact, no focal dificits, no urinary or bowel incontinence. Hyponatremia. Serum sodium 126. Baseline low 130s. She denies nausea vomiting, headaches, dizziness, lethargy. UA+ for UTI. BMP with hyponatremia. 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 multiple myeloma with chronic low back pain and weakness - MRI with worsening T12 compression fx, L2-L3 spinal canal stenosis unchanged. - no focal neuro deficits or foot drop currently. - neurology consult: Because of her age and overall situation, conservative management is recommended. PLAN: Treat UTI as you are doing. Continue Decadron. Pain management with oxycodone and dialudid, appears to be effective. Physical therapy consultation. May benefit from a rehab stay. She said she will think about it. Discussed with Yesenia and her daughter agree with plan. Thank you, CC: Krista Allen MD - Time Spent With Patient Time Spent with Patient (in minutes): 30
[2025-03-20 03:12] VITALS: BP 158/72; PULSE 80; RESP 17; TEMP 36.3; O2SAT 96
[2025-03-20 06:53] LABS: Anion Gap 13 (12-20); Blood Urea Nitrogen 15 mg/dL (9-16); Calcium 8.9 mg/dL (8.4-10.2); Carbon Dioxide 26 mmol/L (22-29); Chloride 98 mmol/L (96-108); Creatinine Clr Calc Pharmacy 70.0; Estimated Glomerular Filt Rate > 60; Potassium 5.0 mmol/L (3.3-5.1); Sodium 132 mmol/L (135-145)
[2025-03-20 07:00] LABS: Hematocrit 35.9 % (37.0-47.0); Hemoglobin 12.6 g/dl (12.0-16.0); Mean Corpuscular HGB Conc 35.1 g/dl (31.0-35.0); Mean Corpuscular Hemoglobin 31.0 pg (27.0-33.0); Mean Corpuscular Volume 88.4 fL (80.0-98.0); NRBC Abs Auto 0.000 X10*3/uL (0.0-0.012); NRBC Pct Auto 0.0 /100WBC (0.0-0.2); Platelet Count 279 X10*3/uL (160-400); Red Blood Count 4.06 X10*6/uL (4.20-5.50); White Blood Count 11.7 X10*3/uL (4.8-10.8)
[2025-03-20 07:24] VITALS: BP 132/69; PULSE 66; RESP 18; TEMP 36.2; O2SAT 95
[2025-03-20] MEDS: 0.9 % Sodium Chloride Flush 3 ML SYRINGE IVFLUSH ×3 (08:40→20:14)
[2025-03-20] MEDS: Milk of Magnesia 30 ML ORAL.SUSP PO (09:01)
[2025-03-20] MEDS: oxyCODONE HCl Immed Release 5 MG TABLET PO (09:01)
--- NOTE | 2025-03-20 09:12 | P.PNIM_ITS ---
Subjective Subjective Date of Service: 03/20/25 Interval History: Seen and examined this morning Follow-up for back pain, hyponatremia, UTI Pain better controlled Review of Systems Review of Systems: Yes all other systems are reviewed and are negative Constitutional Constitutional: Denies chills and Denies fever(s) Cardiovascular Cardiovascular: Denies chest pain, Denies palpitations and Denies dyspnea Respiratory Respiratory: Denies cough and Denies dyspnea Endocrine Endocrine: Denies palpitations Physical Exam 2 Vital Signs: Vital Signs: Last Vital Signs Temp 97.2 F 03/20/25 07:24 Pulse 66 03/20/25 07:24 Resp 18 03/20/25 07:24 BP 132/69 03/20/25 07:24 Pulse Ox 95 03/20/25 07:24 O2 Del Method Room Air 03/20/25 07:24 BMI result Body Mass Index 23.9 Const: General: cooperative, comfortable, no acute distress, alert and awake Nutritional Appearance: average body habitus Orientation/consciousness: p atient oriented x3 Resp: Effort & Inspection: normal respiratory effort, able to speak in complete sentences, no respiratory distress and no use of accessory muscles Cardio: Rate: regular rate GI: Palpation (GI): Soft to palpation Neuro: Other: sensation intact b/l LE General: patient oriented x3, moves all extremities and CN's II-XI intact bilaterally Objective Data Active Medications Acetaminophen (Acetaminophen 325 Mg Tablet) 650 mg PO Q6H PRN PRN Reason: Pain, Mild 1-3,fever,headache Apixaban (Apixaban 5 Mg Tablet) 5 mg PO BID [facility] Last Admin: 03/20/25 08:39 Dose: 5 mg Documented By: PALAK Atenolol (Atenolol 25 Mg Tablet) 25 mg PO DAILY [facility]; Protocol Last Admin: 03/20/25 08:40 Dose: 25 mg Documented By: PALAK Calcium Carbonate (Calcium Carbonate 750 Mg Tab.Chew) 750 mg PO Q4H PRN PRN Reason: Heartburn Ceftriaxone Sodium (Ceftriaxone Sodium 1 Gm Vial) 1 gm IVPUSH Q24H [facility] Last Admin: 03/19/25 17:54 Dose: 1 gm Documented By: COURTNEY Dexamethasone Sodium Phosphate (Dexamethasone Sod Phosphate 4 Mg/Ml Vial) 4 mg IVPUSH Q8H [facility] Last Admin: 03/20/25 09:03 Dose: 4 mg Documented By: PALAK Hydromorphone HCl (Hydromorphone Hcl 1 Mg/Ml Syringe) 0.5 mg IVPUSH Q4H PRN; Protocol PRN Reason: Pain, Severe (Pain Scale 7-10) Last Admin: 03/19/25 08:01 Dose: 0.5 mg Documented By: JONATHAN Lidocaine (Lidocaine 4 % Patch Adh..Patch) 1 patch TRANSDERMA DAILY PRN PRN Reason: Pain Lisinopril (Lisinopril 20 Mg Tablet) 20 mg PO BID [facility]; Protocol Last Admin: 03/20/25 08:39 Dose: 20 mg Documented By: PALAK Lorazepam (Lorazepam 0.5 Mg Tablet) 0.5 mg PO BEDTIME PRN PRN Reason: Sleep/Restlessness Magnesium Hydroxide (Milk Of Magnesia 30 Ml Oral.Susp) 30 ml PO DAILY PRN PRN Reason: Constipation Last Admin: 03/20/25 09:01 Dose: 30 ml Documented By: PALAK Melatonin (Melatonin 3 Mg Tablet) 6 mg PO BEDTIME PRN PRN Reason: Insomnia Omeprazole (Omeprazole 20 Mg Capsule.Dr) 20 mg PO DAILY@0630 [facility] Last Admin: 03/20/25 05:48 Dose: 20 mg Documented By: JING Ondansetron HCl (Ondansetron Hcl 4 Mg/2 Ml Vial) 4 mg IVPUSH Q8H PRN PRN Reason: Nausea and Vomiting Oxycodone HCl (Oxycodone Hcl Immed Release 5 Mg Tablet) 5 mg PO Q6H PRN PRN Reason: Pain, Moderate(Pain Scale 4-6) Last Admin: 03/20/25 09:01 Dose: 5 mg Documented By: PALAK Senna (Sennosides 8.6 Mg Tablet) 8.6 mg PO BEDTIME [facility] Last Admin: 03/19/25 20:22 Dose: 8.6 mg Documented By: JING Senna (Sennosides 8.6 Mg Tablet) 8.6 mg PO BEDTIME PRN PRN Reason: Constipation Simethicone (Simethicone 80 Mg Tab.Chew) 80 mg PO TID PRN PRN Reason: Abdominal Discomfort Sodium Chloride (0.9 % Sodium Chloride Flush 3 Ml Syringe) 3 ml IVFLUSH QSHI Last Admin: 03/20/25 08:40 Dose: 3 ml Documented By: PALAK Labs 03/20/25 05:57 03/20/25 05:57 Labs: Laboratory Results - last 24 hr 03/20/25 05:57 MCV 88.4 MCH 31.0 MCHC 35.1 H RDW 14.3 Plt Count 279 MPV 9.9 Absolute Nucleated RBC 0.000 Nucleated RBC % (auto) 0.0 Anion Gap 13 Estim Creat Clear Calc 70.0 Estimated GFR > 60 Random Glucose 178 H Calcium 8.9 Microbiology Microbiology Results: Microbiology 03/18/25 18:54 Blood Culture - Preliminary Blood - Venous No growth after 24 hours. 03/18/25 18:54 Blood Culture - Preliminary Blood - Venous No growth after 24 hours. 03/18/25 Unknown Urine Culture - Preliminary Urine clean catch - Clean Catch Midstream Culture too young to evaluate. 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: Status: Acute (3) Acute UTI: Status: Acute (4) Acute hyponatremia: Status: Acute Plan This is an 87 yo f with a pmhx significant for persisent a fib on eliquis, HLD, peripherial neuropathy, HTN and multiple myeloma with multiple thoracic and lumbar metastatic lesions with multilevel lumbar compression, who arrived to the ED via EMS due to difficult ambulating today with RLE weakness and ?R foot drop for the past week.MRI lumbar spine in the ED shows progressive T12 compression fx with 2mm increased height loss compared to prior and severe spinal canal stenosis at L2-L3 and other multilevel degenerative changes are similar to prior. UA+ for UTI. BMP with hyponatremia. [facility] neurosurgery was contacted by the ED provider who suggested no need for transfer, decadron 4mg Q8H. the pt is neurologically intact, no focal deficits, no urinary or bowel incontinence. multiple myeloma with chronic low back pain and weakness MRI with worsening T12 compression fx, L2-L3 spinal canal stenosis unchanged no focal neuro deficits or foot drop currently. no red flag symptoms [facility] neurosurgery was contacted by ED provider with recommendations of no transfer, decadron seen by neurology, recommend conservative management continue decadron - likely d/c home with medrol dose elisha pain management with oxycodone and wean IV dialudid, prioritize po meds seen by PT, rec home with PT services oncology agrees with current management - plan for palliative radiation UTI no leukocytosis, vitals stable, no sepsis started on ceftriaxone in ED, continue urine culture pending acute hyponatremia -- acute on chronic likley secondary to poor PO intake/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 Quality Stroke Does the patient have a stroke diagnosis?: No VTE Prior VTE?: No VTE Risk Level:: Medical - moderate - high VTE Device Contraindication: Treatment Not Indicated VTE Drug Contraindication: N/A - Med Ordered
--- NOTE | 2025-03-20 10:01 | MHC.CM.PN ---
Addendum entered by Marianne Cervantes 03/22/25 14:13: PTS DC HAS BEEN DELAYED DUE TO LOW SODIUM SHE STILL HOPES TO GO TO STR, HOWEVER UNDERSTANDS SHE MAY NOT QUALIFY REFERRALS ARE OUT AND BED OFFERS WILL BE REVIEWED ONCE PT IS MEDICALLY CLEAR Original Note: CM MET WITH PT TO DISCUSS DCP SHE REPORTS BEING WORRIED ABOUT GOING HOME SHE LIVES ALONE AND IS HAVING DIFFICULTY AMBULATING INDEPENDENTLY SHE REQUESTS REFERRALS TO STR SHE REPORTS [facility] IS THE PREFERRED SNF, BUT WOULD ALSO LIKE REFERRALS TO [facility] AND [facility] REFERRALS MADE
[2025-03-20 11:07] VITALS: BMI 23.9
--- NOTE | 2025-03-20 11:17 | MHC.CLN ---
NUTRITION DIET=REGULAR. SUPPLEMENT ENSURE BID PROVIDES 700 KCALS, 40 G PROTEIN. INCREASED NUTRITION NEEDS DUE TO PROLONGED CATABOLIC ILLNESS, MULTIPLE MYELOMA WITH METS TO BONE. SIGNIFICANT WEIGHT LOSS X 3 MONTHS, -12%. FOLLOW FOR PO INTAKE. SEE CLINICAL NUTRITION ASSESSMENT 03/20/25.
[2025-03-20 15:19] VITALS: BP 150/67; PULSE 65; RESP 14; TEMP 36.7; O2SAT 95
[2025-03-20 19:22] VITALS: BP 143/72; PULSE 64; RESP 20; TEMP 36.2; O2SAT 95
[2025-03-21 04:00] VITALS: BP 150/75; PULSE 64; RESP 17; TEMP 36; O2SAT 95
[2025-03-21 05:54] LABS: Anion Gap 12 (12-20); Blood Urea Nitrogen 17 mg/dL (9-16); Calcium 8.3 mg/dL (8.4-10.2); Carbon Dioxide 22 mmol/L (22-29); Chloride 99 mmol/L (96-108); Creatinine Clr Calc Pharmacy 74.0; Estimated Glomerular Filt Rate > 60; Potassium 4.3 mmol/L (3.3-5.1); Sodium 129 mmol/L (135-145)
[2025-03-21 06:14] LABS: Hematocrit 32.9 % (37.0-47.0); Hemoglobin 11.7 g/dl (12.0-16.0); Mean Corpuscular HGB Conc 35.6 g/dl (31.0-35.0); Mean Corpuscular Hemoglobin 31.2 pg (27.0-33.0); Mean Corpuscular Volume 87.7 fL (80.0-98.0); NRBC Abs Auto 0.000 X10*3/uL (0.0-0.012); NRBC Pct Auto 0.0 /100WBC (0.0-0.2); Platelet Count 235 X10*3/uL (160-400); Red Blood Count 3.75 X10*6/uL (4.20-5.50); White Blood Count 10.6 X10*3/uL (4.8-10.8)
[2025-03-21 07:37] VITALS: BP 156/72; PULSE 57; RESP 16; TEMP 36.6; O2SAT 96
[2025-03-21] MEDS: 0.9 % Sodium Chloride Flush 3 ML SYRINGE IVFLUSH ×2 (08:34→17:21)
--- NOTE | 2025-03-21 12:15 | P.PNIM_ITS ---
Subjective Subjective Date of Service: 03/21/25 Interval History: Seen and examined this morning Follow-up for back pain, hyponatremia, UTI Pain better controlled Review of Systems Review of Systems: Yes all other systems are reviewed and are negative Constitutional Constitutional: Denies chills and Denies fever(s) Cardiovascular Cardiovascular: Denies chest pain, Denies palpitations and Denies dyspnea Respiratory Respiratory: Denies cough and Denies dyspnea Endocrine Endocrine: Denies palpitations Physical Exam 2 Vital Signs: Vital Signs: Last Vital Signs Temp 97.8 F 03/21/25 07:37 Pulse 57 03/21/25 07:37 Resp 16 03/21/25 07:37 BP 156/72 H 03/21/25 07:37 Pulse Ox 96 03/21/25 07:37 O2 Del Method Room Air 03/21/25 07:37 BMI result Body Mass Index 23.9 Objective Data Active Medications Acetaminophen (Acetaminophen 325 Mg Tablet) 650 mg PO Q6H PRN PRN Reason: Pain, Mild 1-3,fever,headache Last Admin: 03/21/25 00:42 Dose: 650 mg Documented By: JING Comments: per pt request Apixaban (Apixaban 5 Mg Tablet) 5 mg PO BID [facility] Last Admin: 03/21/25 08:34 Dose: 5 mg Documented By: PALAK Atenolol (Atenolol 25 Mg Tablet) 25 mg PO DAILY [facility]; Protocol Last Admin: 03/21/25 08:34 Dose: 25 mg Documented By: PALAK Calcium Carbonate (Calcium Carbonate 750 Mg Tab.Chew) 750 mg PO Q4H PRN PRN Reason: Heartburn Ceftriaxone Sodium (Ceftriaxone Sodium 1 Gm Vial) 1 gm IVPUSH Q24H [facility] Last Admin: 03/20/25 17:46 Dose: 1 gm Documented By: PALAK Dexamethasone Sodium Phosphate (Dexamethasone Sod Phosphate 4 Mg/Ml Vial) 4 mg IVPUSH Q8H [facility] Last Admin: 03/21/25 08:34 Dose: 4 mg Documented By: PALAK Docusate Sodium (Docusate Sodium 100 Mg Capsule) 100 mg PO BID [facility] Last Admin: 03/21/25 08:34 Dose: 100 mg Documented By: PALAK Hydromorphone HCl (Hydromorphone Hcl 1 Mg/Ml Syringe) 0.5 mg IVPUSH Q8H PRN; Protocol PRN Reason: Pain, Severe (Pain Scale 7-10) Lidocaine (Lidocaine 4 % Patch Adh..Patch) 1 patch TRANSDERMA DAILY PRN PRN Reason: Pain Lorazepam (Lorazepam 0.5 Mg Tablet) 0.5 mg PO BEDTIME PRN PRN Reason: Sleep/Restlessness Losartan Potassium (Losartan Potassium 50 Mg Tablet) 50 mg PO BID [facility]; Protocol Magnesium Hydroxide (Milk Of Magnesia 30 Ml Oral.Susp) 30 ml PO DAILY PRN PRN Reason: Constipation Last Admin: 03/20/25 09:01 Dose: 30 ml Documented By: PALAK Melatonin (Melatonin 3 Mg Tablet) 6 mg PO BEDTIME PRN PRN Reason: Insomnia Omeprazole (Omeprazole 20 Mg Capsule.Dr) 20 mg PO DAILY@0630 [facility] Last Admin: 03/21/25 05:42 Dose: 20 mg Documented By: JING Ondansetron HCl (Ondansetron Hcl 4 Mg/2 Ml Vial) 4 mg IVPUSH Q8H PRN PRN Reason: Nausea and Vomiting Oxycodone HCl (Oxycodone Hcl Immed Release 5 Mg Tablet) 5 mg PO Q6H PRN PRN Reason: Pain, Moderate(Pain Scale 4-6) Last Admin: 03/20/25 09:01 Dose: 5 mg Documented By: PALAK Senna (Sennosides 8.6 Mg Tablet) 8.6 mg PO BEDTIME [facility] Last Admin: 03/20/25 20:05 Dose: Not Given Documented By: JING Non-Admin Reason: Patient Refused Simethicone (Simethicone 80 Mg Tab.Chew) 80 mg PO TID PRN PRN Reason: Abdominal Discomfort Sodium Chloride (0.9 % Sodium Chloride Flush 3 Ml Syringe) 3 ml IVFLUSH QSHIFT [facility] Last Admin: 03/21/25 08:34 Dose: 3 ml Documented By: PALAK Labs 03/21/25 05:05 03/21/25 05:05 Labs: Laboratory Results - last 24 hr 03/21/25 05:05 MCV 87.7 MCH 31.2 MCHC 35.6 H RDW 14.4 Plt Count 235 MPV 10.3 Absolute Nucleated RBC 0.000 Nucleated RBC % (auto) 0.0 Anion Gap 12 Estim Creat Clear Calc 74.0 Estimated GFR > 60 Random Glucose 176 H Calcium 8.3 L D Microbiology Microbiology Results: Microbiology 03/18/25 18:54 Blood Culture - Preliminary Blood - Venous No growth after 48 hours. 03/18/25 18:54 Blood Culture - Preliminary Blood - Venous No growth after 48 hours. 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: Status: Acute (3) Acute UTI: Status: Acute (4) Acute hyponatremia: Status: Acute Plan 87 yo f with a pmhx significant for persisent a fib on eliquis, HLD, peripherial neuropathy, HTN and multiple myeloma with multiple thoracic and lumbar metastatic lesions with multilevel lumbar compression, who arrived to the ED via EMS due to difficult ambulating today with RLE weakness and ?R foot drop for the past week.MRI lumbar spine in the ED shows progressive T12 compression fx with 2mm increased height loss compared to prior and severe spinal canal stenosis at L2-L3 and other multilevel degenerative changes are similar to prior. UA+ for UTI. BMP with hyponatremia. [facility] neurosurgery was contacted by the ED provider who suggested no need for transfer, decadron 4mg Q8H. the pt is neurologically intact, no focal deficits, no urinary or bowel incontinence. multiple myeloma with chronic low back pain and weakness MRI with worsening T12 compression fx, L2-L3 spinal canal stenosis unchanged no focal neuro deficits or foot drop currently. no red flag symptoms [facility] neurosurgery was contacted by ED provider with recommendations of no transfer, decadron seen by neurology, recommend conservative management continue decadron - likely d/c home with medrol dose elisha pain management with oxycodone and wean IV dialudid, prioritize po meds seen by PT, rec home with PT services oncology agrees with current management - plan for palliative radiation UTI no leukocytosis, vitals stable, no sepsis started on ceftriaxone in ED, continue urine culture pending acute hyponatremia>acute on chronic likley secondary to poor PO intake/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
[2025-03-21] MEDS: Lidocaine 4 % Patch ADH..PATCH 1 PATCH TRANSDERMA (14:53)
[2025-03-21 15:03] VITALS: BP 160/75; PULSE 57; RESP 16; TEMP 36.4; O2SAT 97
[2025-03-21 20:00] VITALS: BP 148/69; PULSE 62; RESP 17; TEMP 36.6; O2SAT 96
[2025-03-22] VITALS (7 sets, daily range): BP systolic 140–176; BP diastolic 66–84; PULSE 53–77; RESP 16–18; TEMP 36.2–37.2; O2SAT 93–97
[2025-03-22 06:38] LABS: Anion Gap 13 (12-20); Blood Urea Nitrogen 17 mg/dL (9-16); Calcium 8.8 mg/dL (8.4-10.2); Carbon Dioxide 24 mmol/L (22-29); Chloride 95 mmol/L (96-108); Creatinine Clr Calc Pharmacy 70.0; Estimated Glomerular Filt Rate > 60; Potassium 4.8 mmol/L (3.3-5.1); Sodium 127 mmol/L (135-145)
--- NOTE | 2025-03-22 08:03 | HO.PM.IMPN ---
Subjective Subjective Date of Service: 03/22/25 Interval History: Seen and examined this morning Follow-up for back pain, hyponatremia, UTI Pain better controlled Review of Systems Review of Systems: Yes all other systems are reviewed and are negative Constitutional Constitutional: Denies chills and Denies fever(s) Cardiovascular Cardiovascular: Denies chest pain, Denies palpitations and Denies dyspnea Respiratory Respiratory: Denies cough and Denies dyspnea Endocrine Endocrine: Denies palpitations Physical Exam Vital Signs: Vital Signs: Last Vital Signs Temp 97.7 F 03/22/25 07:53 Pulse 53 03/22/25 07:53 Resp 18 03/22/25 07:53 BP 140/66 H 03/22/25 07:53 Pulse Ox 97 03/22/25 07:53 O2 Del Method Room Air 03/22/25 07:53 BMI result Body Mass Index 23.9 Appearing in no acute distress lung sounds are clear to auscultation heart regular rate rhythm, clear S1, S2 positive bowel sounds, abdomen is soft, nontender neuro patient is alert x3, no focal deficits Objective Data Active Medications Acetaminophen (Acetaminophen 325 Mg Tablet) 650 mg PO Q6H PRN PRN Reason: Pain, Mild 1-3,fever,headache Last Admin: 03/22/25 03:41 Dose: 650 mg Documented By: JING Comments: pt request Apixaban (Apixaban 5 Mg Tablet) 5 mg PO BID [facility] Last Admin: 03/21/25 20:20 Dose: 5 mg Documented By: JING Atenolol (Atenolol 25 Mg Tablet) 25 mg PO DAILY [facility]; Protocol Last Admin: 03/21/25 08:34 Dose: 25 mg Documented By: PALAK Calcium Carbonate (Calcium Carbonate 750 Mg Tab.Chew) 750 mg PO Q4H PRN PRN Reason: Heartburn Dexamethasone Sodium Phosphate (Dexamethasone Sod Phosphate 4 Mg/Ml Vial) 4 mg IVPUSH Q8H [facility] Last Admin: 03/22/25 00:58 Dose: 4 mg Documented By: JING Docusate Sodium (Docusate Sodium 100 Mg Capsule) 100 mg PO BID [facility] Last Admin: 03/21/25 20:20 Dose: 100 mg Documented By: JING Hydromorphone HCl (Hydromorphone Hcl 1 Mg/Ml Syringe) 0.5 mg IVPUSH Q4H PRN; Protocol PRN Reason: Pain, Severe (Pain Scale 7-10) Last Admin: 03/22/25 06:24 Dose: 0.5 mg Documented By: JING Lidocaine (Lidocaine 4 % Patch Adh..Patch) 1 patch TRANSDERMA DAILY PRN PRN Reason: Pain Last Admin: 03/21/25 14:53 Dose: 1 patch Documented By: PALAK Lorazepam (Lorazepam 0.5 Mg Tablet) 0.5 mg PO BEDTIME PRN PRN Reason: Sleep/Restlessness Losartan Potassium (Losartan Potassium 50 Mg Tablet) 50 mg PO BID [facility]; Protocol Last Admin: 03/21/25 20:20 Dose: 50 mg Documented By: JING Magnesium Hydroxide (Milk Of Magnesia 30 Ml Oral.Susp) 30 ml PO DAILY PRN PRN Reason: Constipation Last Admin: 03/20/25 09:01 Dose: 30 ml Documented By: PALAK Melatonin (Melatonin 3 Mg Tablet) 6 mg PO BEDTIME PRN PRN Reason: Insomnia Omeprazole (Omeprazole 20 Mg Capsule.Dr) 20 mg PO DAILY@0630 [facility] Last Admin: 03/22/25 06:14 Dose: 20 mg Documented By: JING Ondansetron HCl (Ondansetron Hcl 4 Mg/2 Ml Vial) 4 mg IVPUSH Q8H PRN PRN Reason: Nausea and Vomiting Last Admin: 03/21/25 19:30 Dose: 4 mg Documented By: JING Oxycodone HCl (Oxycodone Hcl Immed Release 5 Mg Tablet) 5 mg PO Q6H PRN PRN Reason: Pain, Moderate(Pain Scale 4-6) Last Admin: 03/20/25 09:01 Dose: 5 mg Documented By: PALAK Senna (Sennosides 8.6 Mg Tablet) 8.6 mg PO BEDTIME [facility] Last Admin: 03/21/25 20:16 Dose: Not Given Documented By: JING Non-Admin Reason: Patient Refused Simethicone (Simethicone 80 Mg Tab.Chew) 80 mg PO TID PRN PRN Reason: Abdominal Discomfort Last Admin: 03/21/25 14:53 Dose: 80 mg Documented By: PALAK Sodium Chloride (0.9 % Sodium Chloride Flush 3 Ml Syringe) 3 ml IVFLUSH QSHIFT [facility] Last Admin: 03/22/25 01:10 Dose: Not Given Documented By: JING Non-Admin Reason: Previously Administered Sodium Chloride (Sodium Chloride Tab 1 Gm Tablet) 1 gm PO BID [facility] Labs 03/21/25 05:05 03/22/25 05:42 Labs: Laboratory Results - last 24 hr 03/22/25 05:42 Hold Purple Top SEE NOTE Anion Gap 13 Estim Creat Clear Calc 70.0 Estimated GFR > 60 Random Glucose 171 H Calcium 8.8 D 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: Status: Acute (3) Acute UTI: Status: Acute (4) Acute hyponatremia: Status: Acute Plan 87 yo f with a pmhx significant for persisent a fib on eliquis, HLD, peripherial neuropathy, HTN and multiple myeloma with multiple thoracic and lumbar metastatic lesions with multilevel lumbar compression, who arrived to the ED via EMS due to difficult ambulating today with RLE weakness and ?R foot drop for the past week.MRI lumbar spine in the ED shows progressive T12 compression fx with 2mm increased height loss compared to prior and severe spinal canal stenosis at L2-L3 and other multilevel degenerative changes are similar to prior. UA+ for UTI. BMP with hyponatremia. [facility] neurosurgery was contacted by the ED provider who suggested no need for transfer, decadron 4mg Q8H. the pt is neurologically intact, no focal deficits, no urinary or bowel incontinence. 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 no red flag symptoms [facility] neurosurgery was contacted by ED provider with recommendations of no transfer seen by neurology, recommend conservative management continue decadron >likely d/c home with medrol dose elisha pain management with oxycodone and wean IV dialudid, prioritize po meds seen by PT, rec home with PT services oncology agrees with current management>plan for palliative radiation UTI no leukocytosis, vitals stable, no sepsis urine culture mixed stopped Rocephin persistent a fib continue eliquis and rate control HLD Hold statin for elevated LFTs (thought to be due to previous treatment) HTN continue home meds full code VTE prophy: trisha dispo: home with PT services Quality Stroke Does the patient have a stroke diagnosis?: No VTE Prior VTE?: No VTE Risk Level:: Medical - moderate - high VTE Device Contraindication: Treatment Not Indicated VTE Drug Contraindication: N/A - Med Ordered
[2025-03-22] MEDS: Sodium Chloride Tab 1 GM TABLET PO ×2 (08:54→20:22)
[2025-03-22] MEDS: 0.9 % Sodium Chloride Flush 3 ML SYRINGE IVFLUSH ×2 (17:47→20:23)
[2025-03-23] VITALS (9 sets, daily range): BP systolic 115–168; BP diastolic 64–88; PULSE 62–156; RESP 16–20; TEMP 36.1–36.6; O2SAT 95–98
--- NOTE | 2025-03-23 07:40 | PM.DS ---
DS: Providers Provider Date of Service: 03/23/25 <Lorena Richmond NP - Last Filed: 03/30/25 13:06> Date of admission: 03/18/25 23:56 <Lorena Richmond NP - Last Filed: 03/30/25 13:06> Date of discharge: 03/23/25 <Lorena Richmond NP - Last Filed: 03/30/25 13:06> Primary care physician: Krista Allen MD <Lorena Richmond NP - Last Filed: 03/30/25 13:06> Consults: 03/19/25 00:04 Consult to Hematology / Oncology Routine Consulting Provider: Hamida Watts Reason for consultation: pt of yours, MM, worsening back pain, weakness Has provider been notified: No 03/19/25 00:05 Consult to Nephrology Routine Consulting Provider: [facility] Reason for consultation: hyponatremia Has provider been notified: No 03/19/25 00:29 Consult to Neurology Routine Consulting Provider: [facility] Reason for consultation: weakness, falls, L2-L3 stenosis Has provider been notified: No <Lorena Richmond NP - Last Filed: 03/30/25 13:06> DS: Diagnosis Discharge Diagnosis (1) Multiple myeloma: Status: Acute <Lorena Richmond NP - Last Filed: 03/30/25 13:06> DS: Summary Hospital Course Hospital Course: History and physical as per admitting provider. pt is an 87 yo f with a pmhx significant for persisent a fib on eliquis, HLD, peripherial neuropathy, HTN and multiple myeloma with multiple thoracic and lumbar metastatic lesions with multilevel lumbar compression, who arrived to the ED via EMS due to difficult ambulating today with RLE weakness and ?R foot drop for the past week. today she had a fall around 11:00 due to her weakness and was unable to get off the ground but was with someone who was able to call EMS. she describes constant severe bilateral upper leg and low back pain and has had a recent increase in her home morphine regimen. She has had increased lumbar spine pain for the past week and was seen by the [employer] at her oncologist today who recommended she report to the ED for further evaluation due to hyponatremia and pain. of note the office visit note states that leo was able to ambulate in the office slowly but without difficulty or foot drop. she was supposed to start palliative raditation treatment but it is on hold due to her elevated liver enzymes. she is also reporting urianry frequency and memory issues for the past week. she denies any urinary or bowel incontinence. MRI lumbar spine in the ED shows progressive T12 compression fx with 2mm increased height loss compared to prior and severe spinal canal stenosis at L2-L3 and other multilevel degenerative changes are similar to prior. UA+ for UTI. BMP with hyponatremia. [facility] neurosurgery was contacted by the ED provider who suggested no need for transfer, decadron 4mg Q8H. 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 Patient was seen by Nephrology, started on salt tablets as well as sodium restriction. Sodium improved to 130. Continue sodium chloride tablets upon discharge Atrial fibrillation with rapid ventricular response Heart rate difficult to control, pain may be playing a role. Seen by Cardiology, initially requiring Cardizem drip, transitioned to oral Cardizem and oral metoprolol also added. Overall heart rate significantly improved, continues to have tachycardia with ambulation likely in part due to deconditioning. Patient has remained asymptomatic throughout hospitalization. Continue anticoagulation with Eliquis Multiple myeloma with chronic low back pain and weakness MRI with worsening T12 compression fx, L2-L3 spinal canal stenosis unchanged. no focal neuro deficits or foot drop currently. no red flag symptoms. [facility] neurosurgery was contacted and there was no need to transfer the patient. She was evaluated by neurology who recommend conservative management and agreed with steroids. She was treated with IV decadron which was transitioned to prednisone, and a taper will be continued on discharge. Seen by oncology who agrees with current management, plan for outpatient palliative radiation for pain control. She will go to [facility] for strengthening before returning home. UTI no leukocytosis, vitals stable, no sepsis and no urinary symptoms. urine culture mixed suggestive of urogenital contamination. Antibiotics were discontinued. HLD LFTs Trending down. thought to be due to previous treatment for MM. Resume statin on d/c HTN atenolol stopped. bp controlled on diltiazem and metoprolol <Lorena Richmond NP - Last Filed: 03/30/25 13:06> Time Attestation Discharge Coordination Time (in mins): 40 <John Brooks MD - Last Filed: 03/30/25 07:52> Quality: Safe Use of Opioids Does Pt have an Active Cancer Diagnosis on the Problem List?: No <John Brooks MD - Last Filed: 03/30/25 07:52> Quality: Stroke Does the patient have a stroke diagnosis?: No <John Brooks MD - Last Filed: 03/30/25 07:52> Physical Exam Vital Signs: Vital Signs: Last Vital Signs Temp 97.8 F 03/23/25 03:51 Pulse 62 03/23/25 03:51 Resp 16 03/23/25 03:51 BP 168/79 H 03/23/25 03:51 Pulse Ox 95 03/23/25 03:51 O2 Del Method Room Air 03/23/25 03:51 BMI result Body Mass Index 23.9 <Lorena Richmond NP - Last Filed: 03/30/25 13:06> Appearing in no acute distress head is normocephalic atraumatic eyes pupils are PERRLA sclera is anicteric mouth throat mucous membranes are intact and moist neck is supple no lymphadenopathy, no JVD noted lung sounds are clear to auscultation heart regular rate rhythm, clear S1, S2 positive bowel sounds, abdomen is soft, nontender neuro patient is alert x3, no focal deficits <Lorena Richmond NP - Last Filed: 03/30/25 13:06> DS: Data Data Completed and Pending Labs on day of discharge: Preliminary micro results at discharge 03/18/25 18:54 Blood Culture - Preliminary Blood - Venous No growth after 48 hours. 03/18/25 18:54 Blood Culture - Preliminary Blood - Venous No growth after 48 hours. <Lorena Richmond NP - Last Filed: 03/30/25 13:06> Discharge Plan Discharge Anticipated Discharge Date/Time: 03/28/25 12:10 <Lorena Richmond NP - Last Filed: 03/30/25 13:06> Patient Disposition: Xfer SNF <Lorena Richmond NP - Last Filed: 03/30/25 13:06> Discharge Diagnosis: multiple myeloma spinal stenosis, T12 compression fracture Hyponatremia Atrial fibrillation with rapid ventricular response <Lorena Richmond NP - Last Filed: 03/30/25 13:06> multiple myeloma spinal stenosis, T12 compression fracture Hyponatremia Atrial fibrillation with rapid ventricular response <John Brooks MD - Last Filed: 03/30/25 07:52> Referrals: [facility] [Outside] - 1 Week Krista Allen MD [Primary Care Provider, Internal Medicine] - 1 Week <Lorena Richmond NP - Last Filed: 03/30/25 13:06> Discharge Medications: New diltiazem HCl 240 mg Capsule,Extended Release 24hr 240 mg PO DAILY Qty: 90 0RF Protocol: Hold for SBP/HR < HOLD for SBP < : 90 HOLD for HR < : 60 prednisone 20 mg Tablet 40 mg PO DAILY 7 Days Qty: 14 0RF docusate sodium 100 mg Capsule 100 mg PO BID Qty: 90 0RF sodium chloride 1,000 mg Tablet,Soluble 1,000 mg PO TID Qty: 120 0RF metoprolol succinate 50 mg tablet extended release 24 hr 50 mg PO BID Qty: 90 0RF hydromorphone 2 mg Tablet 2 mg PO Q4H PRN (Reason: Pain (Scale Score 7-10)) Qty: 30 0RF Rx Instructions: Partial Fill upon patient request. Continued apixaban 5 mg tablet 5 mg PO BID Qty: 180 3RF simvastatin 20 mg tablet 20 mg PO BEDTIME omeprazole 20 mg Capsule,Delayed Release(Dr/Ec) 20 mg PO DAILY@0630 sennosides [senna] 8.6 mg tablet 8.6 mg PO BEDTIME PRN (Reason: Constipation) lidocaine [Lidoderm] 5 % adhesive patch,medicated 1 patch TOPICAL DAILY PRN (Reason: Pain) Rx Instructions: leave on most painful area for up to 12 hrs hydrocortisone 2.5 % cream 1 appl TOPICAL BID PRN (Reason: Rash) Rx Instructions: Apply twice a day to the affected areas. lorazepam 0.5 mg tablet 0.5 mg PO BEDTIME PRN (Reason: Sleep/Restlessness) Qty: 30 0RF simethicone 80 mg Tablet,Chewable 80 mg PO TID PRN (Reason: Abdominal Discomfort) Qty: 30 1RF Discontinued lisinopril 20 mg tablet 20 mg PO BID Qty: 180 3RF atenolol 25 mg tablet 25 mg PO DAILY oxycodone 5 mg tablet 5 mg PO Q6H PRN (Reason: severe pain) <Lorena Richmond NP - Last Filed: 03/30/25 13:06> Discharge Orders: Discharge Order (Routine); Ordered 03/28/25 Ordered By: Linnea Baer <Lorena Richmond NP - Last Filed: 03/30/25 13:06> Diet: Advance to usual diet <Lorena Richmond NP - Last Filed: 03/30/25 13:06> Advance to usual diet <John Brooks MD - Last Filed: 03/30/25 07:52> Activity on Discharge: As tolerated <Lorena Richmond NP - Last Filed: 03/30/25 13:06> As tolerated <John Brooks MD - Last Filed: 03/30/25 07:52> Stand Alone Forms: Patient Portal Discharge page <Lorena Richmond NP - Last Filed: 03/30/25 13:06> Print Language: Telugu <Lorena Richmond NP - Last Filed: 03/30/25 13:06> Care Plan Goals: imporve strength <Lorena Richmond NP - Last Filed: 03/30/25 13:06> Health Concerns: Acute hyponatremia back pain atrial fibrillation with rapid heart rarte <Lorena Richmond NP - Last Filed: 03/30/25 13:06> Plan of Treatment: take salt tablets as prescribed 1L fluid restriction monitor sodium levels intermittently. Outpatient follow-up with Nephrology as needed Prednisone 40 mg for 5 more days and then consider tapering by 10 mg per week. Plan for outpatient palliative radiation for pain control Outpatient follow-up with Oncology for atrial fibrillation - continue diltiazem, metoprolol, Eliquis bowel regimen to prevent constipation <Lorena Richmond NP - Last Filed: 03/30/25 13:06> Assessment: See discharge summary <Lorena Richmond NP - Last Filed: 03/30/25 13:06> Discharge Date/Time: 03/28/25 16:58 <Lorena Richmond NP - Last Filed: 03/30/25 13:06>
[2025-03-23] MEDS: Sodium Chloride Tab 1 GM TABLET PO ×3 (08:03→21:22)
[2025-03-23] MEDS: 0.9 % Sodium Chloride Flush 3 ML SYRINGE IVFLUSH ×3 (08:13→21:26)
[2025-03-23] MEDS: Lidocaine 4 % Patch ADH..PATCH 1 PATCH TRANSDERMA (08:13)
[2025-03-23 09:27] LABS: Sodium 124 mmol/L (135-145)
--- NOTE | 2025-03-23 10:24 | P.PNIM_ITS ---
Subjective Subjective Date of Service: 03/23/25 Interval History: Seen and examined this morning Follow-up for back pain, hyponatremia, UTI Pain better controlled Review of Systems Review of Systems: Yes all other systems are reviewed and are negative Constitutional Constitutional: Denies chills and Denies fever(s) Cardiovascular Cardiovascular: Denies chest pain, Denies palpitations and Denies dyspnea Respiratory Respiratory: Denies cough and Denies dyspnea Endocrine Endocrine: Denies palpitations Physical Exam 2 Vital Signs: Vital Signs: Last Vital Signs Temp 97.0 F 03/23/25 07:40 Pulse 63 03/23/25 07:40 Resp 18 03/23/25 08:05 BP 146/80 H 03/23/25 07:40 Pulse Ox 96 03/23/25 07:40 O2 Del Method Room Air 03/23/25 07:40 BMI result Body Mass Index 23.9 Appearing in no acute distress lung sounds are clear to auscultation heart regular rate rhythm, clear S1, S2 positive bowel sounds, abdomen is soft, nontender neuro patient is alert x3, no focal deficits Objective Data Active Medications Acetaminophen (Acetaminophen 325 Mg Tablet) 650 mg PO Q6H PRN PRN Reason: Pain, Mild 1-3,fever,headache Last Admin: 03/22/25 03:41 Dose: 650 mg Documented By: JING Comments: pt request Apixaban (Apixaban 5 Mg Tablet) 5 mg PO BID [facility] Last Admin: 03/23/25 08:03 Dose: 5 mg Documented By: JERARDO Atenolol (Atenolol 25 Mg Tablet) 25 mg PO DAILY [facility]; Protocol Last Admin: 03/23/25 08:04 Dose: 25 mg Documented By: JERARDO Bismuth Subsalicylate (Bismuth Subsalicylate 262 Mg Tablet) 262 mg PO QID PRN PRN Reason: stomach upset Calcium Carbonate (Calcium Carbonate 750 Mg Tab.Chew) 750 mg PO Q4H PRN PRN Reason: Heartburn Dexamethasone Sodium Phosphate (Dexamethasone Sod Phosphate 4 Mg/Ml Vial) 4 mg IVPUSH Q8H [facility] Last Admin: 03/23/25 08:10 Dose: 4 mg Documented By: JERARDO Docusate Sodium (Docusate Sodium 100 Mg Capsule) 100 mg PO BID [facility] Last Admin: 03/23/25 08:04 Dose: Not Given Documented By: JERARDO Non-Admin Reason: loose stools Hydromorphone HCl (Hydromorphone Hcl 1 Mg/Ml Syringe) 0.5 mg IVPUSH Q4H PRN; Protocol PRN Reason: Pain, Severe (Pain Scale 7-10) Last Admin: 03/23/25 08:05 Dose: 0.5 mg Documented By: JERARDO Lidocaine (Lidocaine 4 % Patch Adh..Patch) 1 patch TRANSDERMA DAILY PRN PRN Reason: Pain Last Admin: 03/23/25 08:13 Dose: 1 patch Documented By: JERARDO Lorazepam (Lorazepam 0.5 Mg Tablet) 0.5 mg PO BEDTIME PRN PRN Reason: Sleep/Restlessness Last Admin: 03/22/25 23:21 Dose: 0.5 mg Documented By: PRIYA Losartan Potassium (Losartan Potassium 50 Mg Tablet) 50 mg PO BID [facility]; Protocol Last Admin: 03/23/25 08:04 Dose: 50 mg Documented By: JERARDO Magnesium Hydroxide (Milk Of Magnesia 30 Ml Oral.Susp) 30 ml PO DAILY PRN PRN Reason: Constipation Last Admin: 03/20/25 09:01 Dose: 30 ml Documented By: PALAK Melatonin (Melatonin 3 Mg Tablet) 6 mg PO BEDTIME PRN PRN Reason: Insomnia Omeprazole (Omeprazole 20 Mg Capsule.Dr) 20 mg PO DAILY@0630 [facility] Last Admin: 03/23/25 05:50 Dose: 20 mg Documented By: PRIYA Ondansetron HCl (Ondansetron Hcl 4 Mg/2 Ml Vial) 4 mg IVPUSH Q8H PRN PRN Reason: Nausea and Vomiting Last Admin: 03/23/25 08:08 Dose: 4 mg Documented By: JERARDO Oxycodone HCl (Oxycodone Hcl Immed Release 5 Mg Tablet) 5 mg PO Q6H PRN PRN Reason: Pain, Moderate(Pain Scale 4-6) Last Admin: 03/20/25 09:01 Dose: 5 mg Documented By: PALAK Senna (Sennosides 8.6 Mg Tablet) 8.6 mg PO BEDTIME [facility] Last Admin: 03/22/25 21:51 Dose: Not Given Documented By: HO.CASTILM Non-Admin Reason: Patient Refused Simethicone (Simethicone 80 Mg Tab.Chew) 80 mg PO TID PRN PRN Reason: Abdominal Discomfort Last Admin: 03/22/25 20:22 Dose: 80 mg Documented By: CASTILM Sodium Chloride (0.9 % Sodium Chloride Flush 3 Ml Syringe) 3 ml IVFLUSH QSHIFT [facility] Last Admin: 03/23/25 08:13 Dose: 3 ml Documented By: JERARDO Sodium Chloride (Sodium Chloride Tab 1 Gm Tablet) 1 gm PO BID [facility] Last Admin: 03/23/25 08:03 Dose: 1 gm Documented By: JERARDO Urea (Urea 15 Gm Powder) 15 gm PO BID [facility] Labs 03/21/25 05:05 03/23/25 08:50 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: Status: Acute (3) Acute UTI: Status: Acute (4) Acute hyponatremia: Status: Acute Plan 87 yo f with a pmhx significant for persisent a fib on eliquis, HLD, peripherial neuropathy, HTN and multiple myeloma with multiple thoracic and lumbar metastatic lesions with multilevel lumbar compression, who arrived to the ED via EMS due to difficult ambulating today with RLE weakness and ?R foot drop for the past week.MRI lumbar spine in the ED shows progressive T12 compression fx with 2mm increased height loss compared to prior and severe spinal canal stenosis at L2-L3 and other multilevel degenerative changes are similar to prior. UA+ for UTI. BMP with hyponatremia. [facility] neurosurgery was contacted by the ED provider who suggested no need for transfer, decadron 4mg Q8H. the pt is neurologically intact, no focal deficits, no urinary or bowel incontinence. 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 no red flag symptoms [facility] neurosurgery was contacted by ED provider with recommendations of no transfer seen by neurology, recommend conservative management continue decadron >likely d/c home with medrol dose elisha pain management with oxycodone and wean IV dialudid, prioritize po meds seen by PT, rec home with PT services oncology agrees with current management>plan for palliative radiation UTI no leukocytosis, vitals stable, no sepsis urine culture mixed stopped Rocephin persistent a fib continue eliquis and rate control HLD Hold statin for elevated LFTs (thought to be due to previous treatment) HTN continue home meds full code VTE prophy: eliquis dispo: home with PT services Quality Stroke Does the patient have a stroke diagnosis?: No VTE Prior VTE?: No VTE Risk Level:: Medical - moderate - high VTE Device Contraindication: Treatment Not Indicated VTE Drug Contraindication: N/A - Med Ordered
--- NOTE | 2025-03-23 15:15 | MHC.CLN ---
F/U DIET=REGULAR. SUPPLEMENT ENSURE BID PROVIDES 700 KCALS, 40 G PROTEIN. INCREASED NUTRITION NEEDS DUE TO PROLONGED CATABOLIC ILLNESS, MULTIPLE MYELOMA WITH METS TO BONE. VARIABLE PO INTAKE, 25-75%. FOLLOW FOR PO INTAKE.
--- NOTE | 2025-03-23 15:16 | MHC.CM.PN ---
EMR REVIEWED AND PER MD ROUNDS, PT IS NOT MEDICALLY CLEARED FOR DC HOME (NA LOW, NEPHRO CONSULT) P.T. CONTINUES TO RECOMMEND HOME WITH SERVICES. COMFORT + VNA UPDATED VIA App[employer].
--- NOTE | 2025-03-23 15:45 | P.PNNP_ITS ---
Subjective Subjective Date of Service: 03/23/25 Interval history: States she has been thirsty and drinking a lot of water. Sodium dropped to 124 this morning, started on salt and urea tablets Seen and examined this morning Follow-up for back pain, hyponatremia, UTI Pain better controlled Physical Exam 2 Vital Signs: Vital Signs: Last Vital Signs Temp 97.5 F 03/23/25 15:14 Pulse 113 H 03/23/25 15:14 Resp 20 03/23/25 12:32 BP 142/64 H 03/23/25 15:14 Pulse Ox 98 03/23/25 15:14 O2 Del Method Room Air 03/23/25 15:14 BMI result Body Mass Index 23.9 General: Elderly lady, very pleasant not in acute distress. Nutritional Appearance: well nourished and normal weight Eyes: appearance normal, both eyes and all related structures; Alignment and Position: alignment normal and position normal Neck: No lymphadenopathy, no thyromegaly Resp: bilateral air entry equal, no added sounds present Cardio: Regular rate, regular rhythm; Heart sounds: S1 normal heart sound present and S2 normal heart sound present, no edema GI: soft, nontender, no guarding, no hepatosplenomegaly : bladder normal to inspection, bladder normal to palpation, no renal angle tenderness Skin: no rashes or lesions noted and elasticity normal Neuro: oriented to person, oriented to place, oriented to time and moves all extremities Objective Data Labs 03/21/25 05:05 03/23/25 08:50 Labs: Laboratory Results - last 24 hr 03/23/25 08:50 Sodium 124 L Microbiology Microbiology Results: Microbiology 03/18/25 18:54 Blood - Venous Blood Culture - Preliminary No growth after 48 hours. 03/18/25 18:54 Blood - Venous Blood Culture - Preliminary No growth after 48 hours. 03/18/25 Unknown Urine clean catch - Clean Catch Midstream Urine Culture - Final Procedures Date of Service Date of Service: 03/23/25 Assessment & Plan Assessment and plan (1) Multiple myeloma: Status: Acute (2) Acute hyponatremia: Status: Acute Plan Hyponatremia: Multifactorial, possibly due to SIADH given multiple bone metastasis, pain and worsened after water ingestion. Appears euvolemic. Strictly limit fluid intake less than 1 L per day. She has been drinking close to 3 L of water yesterday. Sodium dropped to 124, started on salt and Urea tablets this morning- will continue with that will get repeat urine sodium and osmolality to look for etiology. Time Spent With Patient Time: Total time managing care of this patient today 35 minutes. Progress Note: Quality Stroke Does the patient have a stroke diagnosis?: No
--- NOTE | 2025-03-23 17:07 | PM.HEMONCPN ---
Medical Summary - Medical Summary Date of Service: 03/23/25 Chief complaint: Back pain Primary Care Provider: Krista Allen MD Medical Summary: DIAGNOSIS: MULTIPLE MYELOMA. QUESTION CORD COMPRESSION. Certified Pathology Assistant Utilized?: No - Fijian Speaking Interval History Interval history: Yesenia Fisher is a 84 year old lady with a History of Multiple Myeloma, admitted with concern for cord compression. She was seen yesterday by Anupama Jones NP, for acute evaluation of worsening lower back pain associated with lower extremity weakness. She was actually seen in follow up last when she reported worsening lower back pain without red flag features. The oxycodone dose was increased to 5 mg every 4-6 hours. Despite this, she reported lack of adequate pain relief. On SundayMarch 16 she was started on MS Contin 15 mg p.o. b.i.d. in addition to p.r.n. oxycodone. MS Contin was increased to 30 mg after patient's daughter called in reporting ongoing lack of pain relief. In the meantime, patient was referred to [facility] for palliative radiation due to known thoracic and lumbar osseous metastatic lesions. She was due to repeat lab work due to marked elevation in transaminases the week prior. Revlimid was put on hold since 03/12/25, Velcade was held on 03/13/25. Her daughter reported that on her way out the house patient fell/ lowered herself to the ground and was unable to get up on her own. Her daughter also noted that she was dragging her right foot. 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 Additionally, patient reported worsening pruritus since starting increased dose/frequency of oxycodone. She noted that her face was flushed. She feels fatigued. No fevers or chills. She denies chest pain or difficulty breathing. Reports persistent issues with constipation and abdominal bloating without abdominal pain, nausea, or vomiting. Her appetite is low, however she is trying to eat as much as she can tolerate. Senna taken at bedtime seems to be working best for her as it does not cause abdominal cramping. MRI of the lumbar spine from 03/18 revealed: 1. Progressive T12 compression fracture with 2 mm increased height loss compared to prior. 2. Severe spinal canal stenosis at L2-L3 and other multilevel degenerative changes are similar to prior. She is feeling better today. She has been able to walk with assistance. Review of Systems - Neurologic Denies confusion, Denies headache(s), Denies loss of vision, Reports weakness PMFSH Medical History: Medical History (Last Reviewed 03/19/25 @ 12:34 by Alyssa Bearden RN) Annual physical exam Arrhythmia Atrial fibrillation with RVR Bradycardia Dysplastic nevus Dysuria Hyperglycemia Hyperlipidemia Hypertension Impacted cerumen of both ears Leukoplakia of tongue Palpitations Peripheral neuropathy Tachycardia Vitamin D deficiency Functional capacity: wheelchair bound Family History: Family History (Last Reviewed 03/18/25 @ 17:48 by Delfino Craft MD) Father No problems noted. Mother No problems noted. Son Diabetes Surgical History: Surgical History (Last Reviewed 03/19/25 @ 12:34 by Alyssa Bearden RN) H/O arthroscopy of knee H/O colonoscopy H/O mastectomy H/O varicose vein ligation H/O: hysterectomy Social History: Social History (Last Reviewed 03/18/25 @ 17:48 by Delfino Craft MD) Living Situation History: Household Members: None Household Members Other:: lives alone, independent, daughter lives close Housing: House Do you presently have visiting nurse or other home services: No Tobacco History: Patient Tobacco Use Status: Never used Tobacco e-Cigarette/Vaping Use: Never Used Second Hand Smoke Exposure: No Occupation Assessmet: service: No Current occupational status: retired Sex/Gender Assessment: Gender identity: Female Home Medications and Allergies Current Medications: Current Medications Acetaminophen (Acetaminophen 325 Mg Tablet) 650 mg PO Q6H PRN PRN Reason: Pain, Mild 1-3,fever,headache Last Admin: 03/22/25 03:41 Dose: 650 mg Apixaban (Apixaban 5 Mg Tablet) 5 mg PO BID [facility] Last Admin: 03/23/25 08:03 Dose: 5 mg Atenolol (Atenolol 25 Mg Tablet) 25 mg PO DAILY [facility]; Protocol Last Admin: 03/23/25 08:04 Dose: 25 mg Bismuth Subsalicylate (Bismuth Subsalicylate 262 Mg Tablet) 262 mg PO QID PRN PRN Reason: stomach upset Calcium Carbonate (Calcium Carbonate 750 Mg Tab.Chew) 750 mg PO Q4H PRN PRN Reason: Heartburn Dexamethasone Sodium Phosphate (Dexamethasone Sod Phosphate 4 Mg/Ml Vial) 4 mg IVPUSH Q8H [facility] Last Admin: 03/23/25 15:49 Dose: 4 mg Docusate Sodium (Docusate Sodium 100 Mg Capsule) 100 mg PO BID [facility] Last Admin: 03/23/25 08:04 Dose: Not Given Hydromorphone HCl (Hydromorphone Hcl 1 Mg/Ml Syringe) 0.5 mg IVPUSH Q4H PRN; Protocol PRN Reason: Pain, Severe (Pain Scale 7-10) Last Admin: 03/23/25 12:32 Dose: 0.5 mg Lidocaine (Lidocaine 4 % Patch Adh..Patch) 1 patch TRANSDERMA DAILY PRN PRN Reason: Pain Last Admin: 03/23/25 08:13 Dose: 1 patch Lorazepam (Lorazepam 0.5 Mg Tablet) 0.5 mg PO BEDTIME PRN PRN Reason: Sleep/Restlessness Last Admin: 03/22/25 23:21 Dose: 0.5 mg Losartan Potassium (Losartan Potassium 50 Mg Tablet) 50 mg PO BID [facility]; Protocol Last Admin: 03/23/25 08:04 Dose: 50 mg Magnesium Hydroxide (Milk Of Magnesia 30 Ml Oral.Susp) 30 ml PO DAILY PRN PRN Reason: Constipation Last Admin: 03/20/25 09:01 Dose: 30 ml Melatonin (Melatonin 3 Mg Tablet) 6 mg PO BEDTIME PRN PRN Reason: Insomnia Omeprazole (Omeprazole 20 Mg Capsule.Dr) 20 mg PO DAILY@0630 [facility] Last Admin: 03/23/25 05:50 Dose: 20 mg Ondansetron HCl (Ondansetron Hcl 4 Mg/2 Ml Vial) 4 mg IVPUSH Q8H PRN PRN Reason: Nausea and Vomiting Last Admin: 03/23/25 08:08 Dose: 4 mg Oxycodone HCl (Oxycodone Hcl Immed Release 5 Mg Tablet) 5 mg PO Q6H PRN PRN Reason: Pain, Moderate(Pain Scale 4-6) Last Admin: 03/20/25 09:01 Dose: 5 mg Senna (Sennosides 8.6 Mg Tablet) 8.6 mg PO BEDTIME [facility] Last Admin: 03/22/25 21:51 Dose: Not Given Simethicone (Simethicone 80 Mg Tab.Chew) 80 mg PO TID PRN PRN Reason: Abdominal Discomfort Last Admin: 03/22/25 20:22 Dose: 80 mg Sodium Chloride (0.9 % Sodium Chloride Flush 3 Ml Syringe) 3 ml IVFLUSH QSHIFT [facility] Last Admin: 03/23/25 15:51 Dose: 3 ml Sodium Chloride (Sodium Chloride Tab 1 Gm Tablet) 1 gm PO TID [facility] Last Admin: 03/23/25 15:49 Dose: 1 gm Urea (Urea 15 Gm Powder) 15 gm PO BID [facility] Last Admin: 03/23/25 10:59 Dose: 15 gm Home Medications ?Medication ?Instructions ?Recorded ?Confirmed ?Type simvastatin 20 mg tablet 20 mg PO BEDTIME 11/17/24 03/19/25 History atenolol 25 mg tablet 25 mg PO DAILY 03/19/25 03/19/25 History hydrocortisone 2.5 % topical cream 1 appl topical BID PRN Rash 03/19/25 03/19/25 History lidocaine 5 % topical patch 1 patch topical DAILY PRN Pain 03/19/25 03/19/25 History (Lidoderm) omeprazole 20 mg capsule,delayed 20 mg PO DAILY@0630 03/19/25 03/19/25 History release oxycodone 5 mg tablet 5 mg PO Q6H PRN severe pain 03/19/25 03/19/25 History sennosides 8.6 mg tablet (senna) 8.6 mg PO BEDTIME PRN Constipation 03/19/25 03/19/25 History Allergies Allergy/AdvReac Type Severity Reaction Status Date / Time hydralazine Allergy Unknown Verified 03/18/25 15:33 hydrochlorothiazide AdvReac Intermediate Palpitation Verified 03/18/25 15:33 s amlodipine AdvReac DIZZINESS Verified 03/18/25 15:33 sotalol AdvReac Palpitation Verified 03/18/25 15:33 s Exam Vital signs: Vital Signs Temp 97.5 F 03/23/25 15:14 Pulse 113 H 03/23/25 15:14 Resp 20 03/23/25 12:32 BP 142/64 H 03/23/25 15:14 Pulse Ox 98 03/23/25 15:14 O2 Del Method Room Air 03/23/25 15:14 Intake & Output 03/22/25 03/23/25 03/23/25 18:59 06:59 18:59 Intake Total 1939 1040 / 0 440 / 440 Balance 1939 440 / 440 Intake: Intake, Oral Amount 1939 [id number] 440 / 440 Other: Meal Refused No No NPO No No Breakfast % Eaten 25% Lunch % Eaten 50% 75% Dinner % Eaten 25% Eating (Feeding) Ability Independent Independent Number of Unmeasured Voids 1 1 Number of Bowel Movements 1 Urine Bathroom Bathroom Last Bowel Movement 03/22/25 03/22/25 Stool Bathroom Stool Amount Small Stool Color Brown Stool Consistency Watery Weight 67.1 kg BMI result Body Mass Index 23.9 - Constitutional Present: mild distress - Routine HEENT Exam Head: Present: normal inspection, normocephalic Data - Labs CBC & Chem 7: 03/21/25 05:05 03/23/25 08:50 Labs: Laboratory Last Values WBC 10.6 X10*3/uL (4.8-10.8) 03/21/25 05:05 RBC 3.75 X10*6/uL (4.20-5.50) L 03/21/25 05:05 Hgb 11.7 g/dl (12.0-16.0) L 03/21/25 05:05 Hct 32.9 % (37.0-47.0) L 03/21/25 05:05 MCV 87.7 fL (80.0-98.0) 03/21/25 05:05 MCH 31.2 pg (27.0-33.0) 03/21/25 05:05 MCHC 35.6 g/dl (31.0-35.0) H 03/21/25 05:05 RDW 14.4 % (11.0-16.0) 03/21/25 05:05 Plt Count 235 X10*3/uL (160-400) 03/21/25 05:05 MPV 10.3 fL (9.4-12.3) 03/21/25 05:05 Absolute Nucleated RBC 0.000 X10*3/uL (0.0-0.012) 03/21/25 05:05 Nucleated RBC % (auto) 0.0 /100WBC (0.0-0.2) 03/21/25 05:05 Hold Purple Top SEE NOTE 03/22/25 05:42 Sodium 124 mmol/L (135-145) L 03/23/25 08:50 Potassium 4.8 mmol/L (3.3-5.1) 03/22/25 05:42 Chloride 95 mmol/L (96-108) L 03/22/25 05:42 Carbon Dioxide 24 mmol/L (22-29) 03/22/25 05:42 Anion Gap 13 (12-20) 03/22/25 05:42 BUN 17 mg/dL (9-16) H 03/22/25 05:42 Creatinine 0.55 mg/dL (0.5-1.4) 03/22/25 05:42 Estim Creat Clear Calc 70.0 03/22/25 05:42 Estimated GFR > 60 03/22/25 05:42 Random Glucose 171 mg/dL (60-115) H 03/22/25 05:42 Osmolality 271 mosm/kg (281-305) L 03/18/25 17:49 Lactic Acid 1.6 mmol/L (0.5-2.0) 03/18/25 18:54 Calcium 8.8 mg/dL (8.4-10.2) D 03/22/25 05:42 Urine Color Yellow 03/18/25 17:06 Urine Appearance Clear 03/18/25 17:06 Urine pH 6.0 (5.0-9.0) 03/18/25 17:06 Ur Specific [place] <= 1.005 (1.005-1.025) 03/18/25 17:06 Urine Protein Negative mg/dL (Neg-Trace) 03/18/25 17:06 Urine Glucose (UA) Negative mg/dL (Negative) 03/18/25 17:06 Urine Ketones Negative mg/dL (Negative) 03/18/25 17:06 Urine Blood Negative (Negative) 03/18/25 17:06 Urine Nitrite Positive (Negative) H 03/18/25 17:06 Ur Leukocyte Esterase Large (3+) (Negative) H 03/18/25 17:06 Urine RBC 0-2 /HPF (0-2) 03/18/25 17:06 Urine WBC >50 /HPF (0-5) H 03/18/25 17:06 Ur Squamous Epith Cells 0-2 /HPF (0-2) 03/18/25 17:06 Urine Bacteria 2+ (None Seen) 03/18/25 17:06 Hyaline Casts 0-2 /LPF (0-2) 03/18/25 17:06 Urine Osmolality 141 mosm/kg (373-1093) L 03/18/25 17:06 Ur Random Sodium < 20.0 mmol/L 03/18/25 17:06 Ur Random Potassium 11.3 mmol/L 03/18/25 17:06 Ur Random Chloride < 20.0 mmol/L 03/18/25 17:06 Assessment and Plan Patient Active problem list reviewed?: Yes (1) Multiple myeloma Problem details: IgG kappa monoclonal band on immunofixation 11/2024 Status: Acute Assessment and plan: This is a 84-year-old woman with IgG kappa multiple myeloma diagnosed in November 2024. . First-line therapy with RVD regimen was started, she received RVD cycle 3 day 15 on 03/06/25. 2.Back pain and bilateral lower extremity pain and weakness secondary to bone/spinal lesions. She is on monthly denosumab. Patient is here for acute evaluation of worsening lower back pain now associated with lower extremity weakness. She has been receiving oxycodone around the clock. Referred to [facility] for palliative radiation due to known thoracic and lumbar osseous metastatic lesions. MRI of the lumbar spine from 03/18 revealed: 1. Progressive T12 compression fracture with 2 mm increased height loss compared to prior. 2. Severe spinal canal stenosis at L2-L3 and other multilevel degenerative changes are similar to prior. She is neurologically intact, no focal dificits, no urinary or bowel incontinence. 3. Hyponatremia. Serum sodium 126. Baseline low 130s. She has been seen by Nephrology, she is being started on sodium and urea tablets. She denies nausea vomiting, headaches, dizziness, lethargy. - Time Spent With Patient Time Spent with Patient (in minutes): 15
[2025-03-24] VITALS (11 sets, daily range): BP systolic 103–162; BP diastolic 58–111; PULSE 62–144; RESP 16–18; TEMP 36.3–36.6; O2SAT 95–98
[2025-03-24 09:05] LABS: Sodium 123 mmol/L (135-145)
[2025-03-24] MEDS: Sodium Chloride Tab 1 GM TABLET PO ×3 (09:30→20:45)
--- NOTE | 2025-03-24 10:40 | P.PNIM_ITS ---
Subjective Subjective Date of Service: 03/24/25 Interval History: Seen and examined this morning Follow-up for back pain, hyponatremia, UTI Pain better controlled now in afib rvr Review of Systems Review of Systems: Yes all other systems are reviewed and are negative Constitutional Constitutional: Denies chills and Denies fever(s) Cardiovascular Cardiovascular: Denies chest pain, Denies palpitations and Denies dyspnea Respiratory Respiratory: Denies cough and Denies dyspnea Endocrine Endocrine: Denies palpitations Physical Exam 2 Vital Signs: Vital Signs: Last Vital Signs Temp 97.3 F 03/24/25 07:38 Pulse 83 03/24/25 07:38 Resp 16 03/24/25 07:38 BP 123/72 03/24/25 07:38 Pulse Ox 96 03/24/25 07:38 O2 Del Method Room Air 03/24/25 07:38 BMI result Body Mass Index 23.9 Appearing in no acute distress lung sounds are clear to auscultation heart regular rate rhythm, clear S1, S2 positive bowel sounds, abdomen is soft, nontender neuro patient is alert x3, no focal deficits Objective Data Active Medications Acetaminophen (Acetaminophen 325 Mg Tablet) 650 mg PO Q6H PRN PRN Reason: Pain, Mild 1-3,fever,headache Last Admin: 03/22/25 03:41 Dose: 650 mg Documented By: JING Comments: pt request Apixaban (Apixaban 5 Mg Tablet) 5 mg PO BID [facility] Last Admin: 03/24/25 09:28 Dose: 5 mg Documented By: ROSEMARIE Atenolol (Atenolol 25 Mg Tablet) 25 mg PO DAILY [facility]; Protocol Last Admin: 03/24/25 09:27 Dose: 25 mg Documented By: ROSEMARIE Bismuth Subsalicylate (Bismuth Subsalicylate 262 Mg Tablet) 262 mg PO QID PRN PRN Reason: stomach upset Calcium Carbonate (Calcium Carbonate 750 Mg Tab.Chew) 750 mg PO Q4H PRN PRN Reason: Heartburn Dexamethasone Sodium Phosphate (Dexamethasone Sod Phosphate 4 Mg/Ml Vial) 4 mg IVPUSH Q8H [facility] Last Admin: 03/24/25 09:28 Dose: 4 mg Documented By: ROSEMARIE Docusate Sodium (Docusate Sodium 100 Mg Capsule) 100 mg PO BID [facility] Last Admin: 03/24/25 09:33 Dose: Not Given Documented By: ROSEMARIE Non-Admin Reason: Patient Refused Hydromorphone HCl (Hydromorphone Hcl 1 Mg/Ml Syringe) 0.5 mg IVPUSH Q4H PRN; Protocol PRN Reason: Pain, Severe (Pain Scale 7-10) Last Admin: 03/24/25 09:33 Dose: 0.5 mg Documented By: ROSEMARIE Diltiazem HCl 125 mg/ Sodium (Chloride) 125 mls @ 0 mls/hr IVCONT .Q0M [facility]; Protocol Last Titration: 03/24/25 10:20 Dose: 0 mg/hr, 0 mls/hr Documented By: ROSEMARIE Lidocaine (Lidocaine 4 % Patch Adh..Patch) 1 patch TRANSDERMA DAILY PRN PRN Reason: Pain Last Admin: 03/23/25 08:13 Dose: 1 patch Documented By: JERARDO Lorazepam (Lorazepam 0.5 Mg Tablet) 0.5 mg PO BEDTIME PRN PRN Reason: Sleep/Restlessness Last Admin: 03/23/25 21:22 Dose: 0.5 mg Documented By: BRENDA Losartan Potassium (Losartan Potassium 50 Mg Tablet) 50 mg PO BID [facility]; Protocol Last Admin: 03/24/25 09:29 Dose: 50 mg Documented By: ROSEMARIE Magnesium Hydroxide (Milk Of Magnesia 30 Ml Oral.Susp) 30 ml PO DAILY PRN PRN Reason: Constipation Last Admin: 03/20/25 09:01 Dose: 30 ml Documented By: PALAK Melatonin (Melatonin 3 Mg Tablet) 6 mg PO BEDTIME PRN PRN Reason: Insomnia Omeprazole (Omeprazole 20 Mg Capsule.Dr) 20 mg PO DAILY@0630 [facility] Last Admin: 03/24/25 05:19 Dose: 20 mg Documented By: CARIN-YNESZERick Ondansetron HCl (Ondansetron Hcl 4 Mg/2 Ml Vial) 4 mg IVPUSH Q8H PRN PRN Reason: Nausea and Vomiting Last Admin: 03/23/25 08:08 Dose: 4 mg Documented By: JERARDO Senna (Sennosides 8.6 Mg Tablet) 8.6 mg PO BEDTIME [facility] Last Admin: 03/23/25 21:22 Dose: Not Given Documented By: BRENDA Non-Admin Reason: Patient Refused Simethicone (Simethicone 80 Mg Tab.Chew) 80 mg PO TID PRN PRN Reason: Abdominal Discomfort Last Admin: 03/22/25 20:22 Dose: 80 mg Documented By: JUANJOILRubio Sodium Chloride (0.9 % Sodium Chloride Flush 3 Ml Syringe) 3 ml IVFLUSH QSHIFT [facility] Last Admin: 03/24/25 09:30 Dose: Not Given Documented By: ROSEMARIE Non-Admin Reason: IV Running Sodium Chloride (Sodium Chloride Tab 1 Gm Tablet) 1 gm PO TID [facility] Last Admin: 03/24/25 09:30 Dose: 1 gm Documented By: ROSEMARIE Urea (Urea 15 Gm Powder) 15 gm PO BID [facility] Last Admin: 03/24/25 09:27 Dose: 15 gm Documented By: ROSEMARIE Labs 03/21/25 05:05 03/24/25 08:24 Labs: Laboratory Results - last 24 hr 03/23/25 16:39 Urine Osmolality 810 Ur Random Sodium 37.0 Microbiology Microbiology Results: Microbiology 03/18/25 18:54 Blood Culture - Final Blood - Venous No growth after 5 days. 03/18/25 18:54 Blood Culture - Final Blood - Venous No growth after 5 days. 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: Status: Acute (3) Acute UTI: Status: Acute (4) Acute hyponatremia: Status: Acute Plan 87 yo f with a pmhx significant for persisent a fib on eliquis, HLD, peripherial neuropathy, HTN and multiple myeloma with multiple thoracic and lumbar metastatic lesions with multilevel lumbar compression, who arrived to the ED via EMS due to difficult ambulating today with RLE weakness and ?R foot drop for the past week.MRI lumbar spine in the ED shows progressive T12 compression fx with 2mm increased height loss compared to prior and severe spinal canal stenosis at L2-L3 and other multilevel degenerative changes are similar to prior. UA+ for UTI. BMP with hyponatremia. [facility] neurosurgery was contacted by the ED provider who suggested no need for transfer, decadron 4mg Q8H. the pt is neurologically intact, no focal deficits, no urinary or bowel incontinence. 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 no red flag symptoms [facility] neurosurgery was contacted by ED provider with recommendations of no transfer seen by neurology, recommend conservative management continue decadron >likely d/c home with medrol dose elisha pain management with oxycodone and wean IV dialudid, prioritize po meds seen by PT, rec home with PT services oncology agrees with current management>plan for palliative radiation UTI no leukocytosis, vitals stable, no sepsis urine culture mixed stopped Rocephin HLD Hold statin for elevated LFTs (thought to be due to previous treatment) HTN continue home meds full code VTE prophy: trisha dispo: home with PT services Quality Stroke Does the patient have a stroke diagnosis?: No VTE Prior VTE?: No VTE Risk Level:: Medical - moderate - high VTE Device Contraindication: Treatment Not Indicated VTE Drug Contraindication: N/A - Med Ordered
--- NOTE | 2025-03-24 11:15 | P.PNNP_ITS ---
Subjective Subjective Date of Service: 03/24/25 Interval history: following for hyponatremia sodium 123 this a.m., down from 124 yesterday- drinking lots of water yesterday, ~3L patient denies new concerns/complaints today Physical Exam 2 Vital Signs: Vital Signs: Last Vital Signs Temp 97.9 F 03/24/25 11:33 Pulse 83 03/24/25 11:33 Resp 18 03/24/25 11:33 BP 116/63 03/24/25 11:33 Pulse Ox 97 03/24/25 11:33 O2 Del Method Room Air 03/24/25 11:33 BMI result Body Mass Index 23.9 Const: General: no acute distress, alert and awake Resp: Effort & Inspection: normal respiratory effort and able to speak in complete sentences Auscultation: clear to auscultation bilaterally Cardio: Jugular venous distension: no JVD Rate: regular rate Rhythm: r egular rhythm Heart sounds: S1 normal heart sound present and S2 normal heart sound present GI: Palpation (GI): Soft to palpation and nontender : General: Yes no CVA tenderness Back/Spine/Pelvis: Back: no CVA tenderness Skin: Rashes: no rashes Extrem: General: No edema and No pedal edema Objective Data Labs 03/21/25 05:05 03/24/25 08:24 Labs: Laboratory Results - last 24 hr 03/23/25 03/24/25 16:39 08:24 Sodium 123 L Urine Osmolality 810 Ur Random Sodium 37.0 Microbiology Microbiology Results: Microbiology 03/18/25 18:54 Blood - Venous Blood Culture - Final No growth after 5 days. 03/18/25 18:54 Blood - Venous Blood Culture - Final No growth after 5 days. 03/18/25 Unknown Urine clean catch - Clean Catch Midstream Urine Culture - Final Procedures Date of Service Date of Service: 03/24/25 Assessment & Plan Assessment and plan (1) Acute hyponatremia: Status: Acute Plan Hyponatremia likely multifactorial due to SIADH given multiple bone metastasis, pain and worsened after water ingestion yesterday. Patient appears euvolemic today. recommend strict 1L fluid restriction per 24 hours. Continue salt tablets and urea powder as ordered. will continue to monitor urine osmolality and sodium to direct treatment should check serum sodium levels tomorrow a.m. Discussed with Dr Astorga. Time Spent With Patient Time: Total time managing care of this patient today ____ minutes. Progress Note: Quality Stroke Does the patient have a stroke diagnosis?: No
[2025-03-24] MEDS: Hydrocortisone 1 % Cream 28.35 GM TUBE 1 APPL TOPICAL (16:23)
[2025-03-24] MEDS: dilTIAZem HCL CD 120 MG CAP.ER.DEG PO (17:14)
--- NOTE | 2025-03-24 18:15 | PC.NURSE ---
Addendum entered by Ju Salmon RN 03/24/25 18:31: pts HR 80s-140s in a.fib. dilt gtt restarted per NOV. Lorena JOHNSON made aware. PO dilt given per NOV. Original Note: This RN increased dilt gtt per NOV. at around 1015 pt had 3 second pause and HR in 60s-70s. gtt paused per NOV. HR in 70s- low 100s, still in a.fib on monitor. Lorena JOHNSON made aware.
[2025-03-25] VITALS (8 sets, daily range): BP systolic 96–122; BP diastolic 55–83; PULSE 62–151; RESP 16–18; TEMP 20–36.6; O2SAT 94–96
[2025-03-25 06:58] LABS: Anion Gap 12 (12-20); Blood Urea Nitrogen 48 mg/dL (9-16); Calcium 9.0 mg/dL (8.4-10.2); Carbon Dioxide 24 mmol/L (22-29); Chloride 96 mmol/L (96-108); Creatinine Clr Calc Pharmacy 66.4; Estimated Glomerular Filt Rate > 60; Magnesium 2.3 mg/dL (1.6-2.6); Potassium 4.6 mmol/L (3.3-5.1); Sodium 127 mmol/L (135-145)
[2025-03-25] MEDS: dilTIAZem HCL CD 120 MG CAP.ER.DEG PO (08:55)
[2025-03-25] MEDS: Sodium Chloride Tab 1 GM TABLET PO ×3 (08:56→20:34)
[2025-03-25] MEDS: 0.9 % Sodium Chloride Flush 3 ML SYRINGE IVFLUSH ×2 (09:00→20:37)
--- NOTE | 2025-03-25 09:12 | P.PNIM_ITS ---
Subjective Subjective Date of Service: 03/25/25 Interval History: Seen and examined this morning Follow-up for back pain, hyponatremia, UTI Pain better controlled now in afib rvr Review of Systems Review of Systems: Yes all other systems are reviewed and are negative Constitutional Constitutional: Denies chills and Denies fever(s) Cardiovascular Cardiovascular: Denies chest pain, Denies palpitations and Denies dyspnea Respiratory Respiratory: Denies cough and Denies dyspnea Endocrine Endocrine: Denies palpitations Physical Exam 2 Vital Signs: Vital Signs: Last Vital Signs Temp 97.3 F 03/25/25 07:38 Pulse 138 H 03/25/25 08:55 Resp 16 03/25/25 07:38 BP 98/56 L 03/25/25 07:38 Pulse Ox 94 03/25/25 07:38 O2 Del Method Room Air 03/25/25 07:38 BMI result Body Mass Index 23.9 Appearing in no acute distress lung sounds are clear to auscultation heart IRIR positive bowel sounds, abdomen is soft, nontender neuro patient is alert x3, no focal deficits Objective Data Active Medications Acetaminophen (Acetaminophen 325 Mg Tablet) 650 mg PO Q6H PRN PRN Reason: Pain, Mild 1-3,fever,headache Last Admin: 03/22/25 03:41 Dose: 650 mg Documented By: JING Comments: pt request Apixaban (Apixaban 5 Mg Tablet) 5 mg PO BID [facility] Last Admin: 03/25/25 08:56 Dose: 5 mg Documented By: ROSEMARIE Bismuth Subsalicylate (Bismuth Subsalicylate 262 Mg Tablet) 262 mg PO QID PRN PRN Reason: stomach upset Calcium Carbonate (Calcium Carbonate 750 Mg Tab.Chew) 750 mg PO Q4H PRN PRN Reason: Heartburn Dexamethasone Sodium Phosphate (Dexamethasone Sod Phosphate 4 Mg/Ml Vial) 4 mg IVPUSH Q8H [facility] Last Admin: 03/25/25 08:56 Dose: 4 mg Documented By: ROSEMARIE Digoxin (Digoxin 0.5 Mg/2 Ml Ampul) 0.125 mg IVPUSH Q6H [facility]; Protocol Stop: 03/25/25 21:16 Diltiazem HCl (Diltiazem Hcl Cd 120 Mg Cap.Er.Deg) 120 mg PO DAILY [facility]; Protocol Last Admin: 03/25/25 08:55 Dose: 120 mg Documented By: ROSEMARIE Docusate Sodium (Docusate Sodium 100 Mg Capsule) 100 mg PO BID [facility] Last Admin: 03/25/25 08:56 Dose: 100 mg Documented By: ROSEMARIE Hydrocortisone (Hydrocortisone 1 % Cream 28.35 Gm Tube) 1 appl TOPICAL BID PRN PRN Reason: Rash Last Admin: 03/24/25 16:23 Dose: 1 appl Documented By: ROSEMARIE Hydromorphone HCl (Hydromorphone Hcl 1 Mg/Ml Syringe) 0.5 mg IVPUSH Q4H PRN; Protocol PRN Reason: Pain, Severe (Pain Scale 7-10) Last Admin: 03/25/25 04:54 Dose: 0.5 mg Documented By: RICHARD Diltiazem HCl 125 mg/ Sodium (Chloride) 125 mls @ 0 mls/hr IVCONT .Q0M [facility]; Protocol Last Titration: 03/25/25 08:12 Dose: 0 mg/hr, 0 mls/hr Documented By: MANNY Lidocaine (Lidocaine 4 % Patch Adh..Patch) 1 patch TRANSDERMA DAILY PRN PRN Reason: Pain Last Admin: 03/23/25 08:13 Dose: 1 patch Documented By: JERARDO Losartan Potassium (Losartan Potassium 50 Mg Tablet) 50 mg PO BID [facility]; Protocol On Hold: 03/25/25 07:53 Last Admin: 03/24/25 20:46 Dose: 50 mg Documented By: RICHARD Magnesium Hydroxide (Milk Of Magnesia 30 Ml Oral.Susp) 30 ml PO DAILY PRN PRN Reason: Constipation Last Admin: 03/20/25 09:01 Dose: 30 ml Documented By: PALAK Melatonin (Melatonin 3 Mg Tablet) 6 mg PO BEDTIME PRN PRN Reason: Insomnia Omeprazole (Omeprazole 20 Mg Capsule.Dr) 20 mg PO DAILY@0630 [facility] Last Admin: 03/25/25 04:54 Dose: 20 mg Documented By: RICHARD Ondansetron HCl (Ondansetron Hcl 4 Mg/2 Ml Vial) 4 mg IVPUSH Q8H PRN PRN Reason: Nausea and Vomiting Last Admin: 03/23/25 08:08 Dose: 4 mg Documented By: JERARDO Senna (Sennosides 8.6 Mg Tablet) 8.6 mg PO BEDTIME [facility] Last Admin: 03/24/25 20:46 Dose: 8.6 mg Documented By: RICHARD Simethicone (Simethicone 80 Mg Tab.Chew) 80 mg PO TID PRN PRN Reason: Abdominal Discomfort Last Admin: 03/24/25 16:23 Dose: 80 mg Documented By: ROSEMARIE Simethicone (Simethicone 80 Mg Tab.Chew) 80 mg PO QIDWMHS PRN PRN Reason: gas Sodium Chloride (0.9 % Sodium Chloride Flush 3 Ml Syringe) 3 ml IVFLUSH QSHIFT [facility] Last Admin: 03/25/25 09:00 Dose: 3 ml Documented By: ROSEMARIE Sodium Chloride (Sodium Chloride Tab 1 Gm Tablet) 1 gm PO TID [facility] Last Admin: 03/25/25 08:56 Dose: 1 gm Documented By: ROSEMARIE Urea (Urea 15 Gm Powder) 15 gm PO BID [facility] Last Admin: 03/25/25 08:54 Dose: 15 gm Documented By: ROSEMARIE Labs 03/21/25 05:05 03/25/25 06:11 Labs: Laboratory Results - last 24 hr 03/24/25 03/25/25 15:21 06:11 Hold Purple Top SEE NOTE Anion Gap 12 Estim Creat Clear Calc 66.4 Estimated GFR > 60 Random Glucose 209 H Calcium 9.0 Magnesium 2.3 Urine Osmolality 958 Ur Random Sodium < 20.0 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: Status: Acute (3) Acute UTI: Status: Acute (4) Acute hyponatremia: Status: Acute Plan 87 yo f with a pmhx significant for persisent a fib on eliquis, HLD, peripherial neuropathy, HTN and multiple myeloma with multiple thoracic and lumbar metastatic lesions with multilevel lumbar compression, who arrived to the ED via EMS due to difficult ambulating today with RLE weakness and ?R foot drop for the past week.MRI lumbar spine in the ED shows progressive T12 compression fx with 2mm increased height loss compared to prior and severe spinal canal stenosis at L2-L3 and other multilevel degenerative changes are similar to prior. UA+ for UTI. BMP with hyponatremia. [facility] neurosurgery was contacted by the ED provider who suggested no need for transfer, decadron 4mg Q8H. the pt is neurologically intact, no focal deficits, no urinary or bowel incontinence. 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 no red flag symptoms [facility] neurosurgery was contacted by ED provider with recommendations of no transfer seen by neurology, recommend conservative management continue decadron >likely d/c home with medrol dose elisha pain management with oxycodone and wean IV dialudid, prioritize po meds seen by PT, rec home with PT services oncology agrees with current management>plan for palliative radiation UTI no leukocytosis, vitals stable, no sepsis urine culture mixed stopped Rocephin HLD Hold statin for elevated LFTs (thought to be due to previous treatment) HTN continue home meds full code VTE prophy: trisha dispo: home with PT services Quality Stroke Does the patient have a stroke diagnosis?: No VTE Prior VTE?: No VTE Risk Level:: Medical - moderate - high VTE Device Contraindication: Treatment Not Indicated VTE Drug Contraindication: N/A - Med Ordered
--- NOTE | 2025-03-25 11:05 | P.PNNP_ITS ---
Subjective Subjective Date of Service: 03/25/25 Interval history: following for hyponatremia sodium up to 127 this a.m., up from 123 yesterday after implementing fluid restriction patient denies new concerns/complaints today Physical Exam 2 Vital Signs: Vital Signs: Last Vital Signs Temp 97.9 F 03/25/25 11:38 Pulse 62 03/25/25 11:38 Resp 18 03/25/25 11:38 BP 113/55 L 03/25/25 11:38 Pulse Ox 95 03/25/25 11:38 O2 Del Method Room Air 03/25/25 11:38 BMI result Body Mass Index 23.9 Const: General: no acute distress, alert and awake Resp: Effort & Inspection: normal respiratory effort and able to speak in complete sentences Auscultation: clear to auscultation bilaterally Cardio: Jugular venous distension: no JVD Rate: regular rate Rhythm: r egular rhythm Heart sounds: S1 normal heart sound present and S2 normal heart sound present GI: Palpation (GI): Soft to palpation and nontender : General: Yes no CVA tenderness Back/Spine/Pelvis: Back: no CVA tenderness Skin: Rashes: no rashes Extrem: General: No edema and No pedal edema Objective Data Labs 03/21/25 05:05 03/25/25 06:11 Labs: Laboratory Results - last 24 hr 03/24/25 03/25/25 15:21 06:11 Hold Purple Top SEE NOTE Sodium 127 L Potassium 4.6 Chloride 96 Carbon Dioxide 24 Anion Gap 12 BUN 48 H Creatinine 0.58 Estim Creat Clear Calc 66.4 Estimated GFR > 60 Random Glucose 209 H Calcium 9.0 Magnesium 2.3 Urine Osmolality 958 Ur Random Sodium < 20.0 Microbiology Microbiology Results: Microbiology 03/18/25 18:54 Blood - Venous Blood Culture - Final No growth after 5 days. 03/18/25 18:54 Blood - Venous Blood Culture - Final No growth after 5 days. 03/18/25 Unknown Urine clean catch - Clean Catch Midstream Urine Culture - Final Procedures Date of Service Date of Service: 03/25/25 Assessment & Plan Assessment and plan (1) Acute hyponatremia: Status: Acute Plan Hyponatremia likely multifactorial due to SIADH given multiple bone metastasis and pain. Improving with fluid restriction Patient appears euvolemic today. recommend continue 1L fluid restriction per 24 hours. Continue salt tablets and urea powder as ordered. recommend daily electrolyte studies. Discussed with Dr Astorga. Time Spent With Patient Time: Total time managing care of this patient today ____ minutes. Progress Note: Quality Stroke Does the patient have a stroke diagnosis?: No
--- NOTE | 2025-03-25 13:47 | MHC.CLN ---
F/U DIET=REGULAR. FLUID RESTRICTION 1200 ML. SUPPLEMENT ENSURE BID PROVIDES 700 KCALS, 40 G PROTEIN. INCREASED NUTRITION NEEDS DUE TO PROLONGED CATABOLIC ILLNESS, MULTIPLE MYELOMA WITH METS TO BONE. VARIABLE PO INTAKE, 25-100%. FOLLOW FOR PO INTAKE.
--- NOTE | 2025-03-25 14:35 | PM.CNCAR ---
History of Present Illness History of Present Illness Date of Service: 03/25/25 Requesting physician: Lorena Richmond Chief complaint: weakness, fall, UTI hyponatremia Narrative: [age] year female presenting with weakness with buckling of her knees. In the ER she was noticed to be in AFib with RVR. She has been diagnosed with urinary tract infection at this point. She has multiple myeloma with spinal metastasis with low back pain. She was on chemotherapy and is currently on dexamethasone also. She was due to get radiation therapy for pain control. She is denying any symptoms from atrial fibrillation. No shortness of breath, fatigue or palpitations. Clinically not in heart failure. She is currently on Cardizem drip at 15 milligram/hour. [facility] Past Medical History Medical History Atrial fibrillation with RVR Impacted cerumen of both ears Bradycardia Dysplastic nevus Hyperglycemia Vitamin D deficiency Annual physical exam Palpitations Arrhythmia Leukoplakia of tongue Tachycardia Hyperlipidemia Peripheral neuropathy Hypertension Dysuria Family History Family History Father No problems noted. Mother No problems noted. Son Diabetes Surgical History Surgical History H/O arthroscopy of knee H/O varicose vein ligation H/O: hysterectomy H/O mastectomy H/O colonoscopy Social History Social History Household Members: None Household Members Other:: lives alone, independent, daughter lives close Housing: House Do you presently have visiting nurse or other home services: No Alcohol intake: former Patient Tobacco Use Status: Never used Tobacco e-Cigarette/Vaping Use: Never Used Second Hand Smoke Exposure: No service: No Current occupational status: retired Gender identity: Female Cognitive needs: No Hearing needs: No Vision needs: Yes Meds Allergies Allergy/AdvReac Type Severity Reaction Status Date / Time hydralazine Allergy Unknown Verified 03/18/25 15:33 hydrochlorothiazide AdvReac Intermediate Palpitation Verified 03/18/25 15:33 s amlodipine AdvReac DIZZINESS Verified 03/18/25 15:33 sotalol AdvReac Palpitation Verified 03/18/25 15:33 s Active Medications: Current Medications Acetaminophen (Acetaminophen 325 Mg Tablet) 650 mg PO Q6H PRN PRN Reason: Pain, Mild 1-3,fever,headache Last Admin: 03/22/25 03:41 Dose: 650 mg Apixaban (Apixaban 5 Mg Tablet) 5 mg PO BID [facility] Last Admin: 03/25/25 08:56 Dose: 5 mg Bismuth Subsalicylate (Bismuth Subsalicylate 262 Mg Tablet) 262 mg PO QID PRN PRN Reason: stomach upset Calcium Carbonate (Calcium Carbonate 750 Mg Tab.Chew) 750 mg PO Q4H PRN PRN Reason: Heartburn Dexamethasone Sodium Phosphate (Dexamethasone Sod Phosphate 4 Mg/Ml Vial) 4 mg IVPUSH Q8H [facility] Last Admin: 03/25/25 08:56 Dose: 4 mg Diltiazem HCl (Diltiazem Hcl Cd 240 Mg Cap.Er.Deg) 240 mg PO DAILY [facility]; Protocol Docusate Sodium (Docusate Sodium 100 Mg Capsule) 100 mg PO BID [facility] Last Admin: 03/25/25 08:56 Dose: 100 mg Hydrocortisone (Hydrocortisone 1 % Cream 28.35 Gm Tube) 1 appl TOPICAL BID PRN PRN Reason: Rash Last Admin: 03/24/25 16:23 Dose: 1 appl Hydromorphone HCl (Hydromorphone Hcl 1 Mg/Ml Syringe) 0.5 mg IVPUSH Q4H PRN; Protocol PRN Reason: Pain, Severe (Pain Scale 7-10) Last Admin: 03/25/25 04:54 Dose: 0.5 mg Diltiazem HCl 125 mg/ Sodium (Chloride) 125 mls @ 0 mls/hr IVCONT .Q0M [facility]; Protocol Last Titration: 03/25/25 09:51 Dose: 15 mg/hr, 15 mls/hr Lidocaine (Lidocaine 4 % Patch Adh..Patch) 1 patch TRANSDERMA DAILY PRN PRN Reason: Pain Last Admin: 03/23/25 08:13 Dose: 1 patch Losartan Potassium (Losartan Potassium 50 Mg Tablet) 50 mg PO BID [facility]; Protocol On Hold: 03/25/25 07:53 Last Admin: 03/24/25 20:46 Dose: 50 mg Magnesium Hydroxide (Milk Of Magnesia 30 Ml Oral.Susp) 30 ml PO DAILY PRN PRN Reason: Constipation Last Admin: 03/20/25 09:01 Dose: 30 ml Melatonin (Melatonin 3 Mg Tablet) 6 mg PO BEDTIME PRN PRN Reason: Insomnia Metoprolol Succinate (Metoprolol Succinate Er 25 Mg Tab.Er.24h) 25 mg PO BID [facility]; Protocol Omeprazole (Omeprazole 20 Mg Capsule.Dr) 20 mg PO DAILY@0630 [facility] Last Admin: 03/25/25 04:54 Dose: 20 mg Ondansetron HCl (Ondansetron Hcl 4 Mg/2 Ml Vial) 4 mg IVPUSH Q8H PRN PRN Reason: Nausea and Vomiting Last Admin: 03/23/25 08:08 Dose: 4 mg Senna (Sennosides 8.6 Mg Tablet) 8.6 mg PO BEDTIME [facility] Last Admin: 03/24/25 20:46 Dose: 8.6 mg Simethicone (Simethicone 80 Mg Tab.Chew) 80 mg PO TID PRN PRN Reason: Abdominal Discomfort Last Admin: 03/24/25 16:23 Dose: 80 mg Simethicone (Simethicone 80 Mg Tab.Chew) 80 mg PO QIDWMHS PRN PRN Reason: gas Sodium Chloride (0.9 % Sodium Chloride Flush 3 Ml Syringe) 3 ml IVFLUSH QSHIFT [facility] Last Admin: 03/25/25 09:00 Dose: 3 ml Sodium Chloride (Sodium Chloride Tab 1 Gm Tablet) 1 gm PO TID [facility] Last Admin: 03/25/25 08:56 Dose: 1 gm Urea (Urea 15 Gm Powder) 15 gm PO BID [facility] Last Admin: 03/25/25 08:54 Dose: 15 gm Home Medications ?Medication ?Instructions ?Recorded ?Confirmed ?Last Taken ?Type simvastatin 20 mg tablet 20 mg PO BEDTIME 11/17/24 03/19/25 03/18/25 History atenolol 25 mg tablet 25 mg PO DAILY 03/19/25 03/19/25 03/18/25 History hydrocortisone 2.5 % topical cream 1 appl topical BID PRN Rash 03/19/25 03/19/25 Unknown History lidocaine 5 % topical patch 1 patch topical DAILY PRN Pain 03/19/25 03/19/25 Unknown History (Lidoderm) omeprazole 20 mg capsule,delayed 20 mg PO DAILY@0630 03/19/25 03/19/25 03/18/25 History release oxycodone 5 mg tablet 5 mg PO Q6H PRN severe pain 03/19/25 03/19/25 Unknown History sennosides 8.6 mg tablet (senna) 8.6 mg PO BEDTIME PRN Constipation 03/19/25 03/19/25 Unknown History Physical Exam Vital Signs: Vital Signs: Last Vital Signs Temp 97.9 F 03/25/25 11:38 Pulse 62 03/25/25 11:38 Resp 18 03/25/25 11:38 BP 113/55 L 03/25/25 11:38 Pulse Ox 95 03/25/25 11:38 O2 Del Method Room Air 03/25/25 11:38 BMI result Body Mass Index 23.9 GENERAL APPEARANCE: in no acute distress, pleasant. NECK: no carotid bruit, no jugular venous distention. SKIN: no suspicious lesions, warm and dry. HEART: no murmurs, irregular rate and rhythm. Tachycardic. LUNGS: clear to auscultation bilaterally. ABDOMEN: soft, nontender. EXTREMITIES: no edema. PERIPHERAL PULSES: equal. NEUROLOGIC: No gross deficits, AAO X 3 Objective Labs and Meds 03/21/25 05:05 03/25/25 06:11 Lab results: Laboratory Results - last 24 hr 03/24/25 03/25/25 15:21 06:11 Hold Purple Top SEE NOTE Sodium 127 L Potassium 4.6 Chloride 96 Carbon Dioxide 24 Anion Gap 12 BUN 48 H Creatinine 0.58 Estim Creat Clear Calc 66.4 Estimated GFR > 60 Random Glucose 209 H Calcium 9.0 Magnesium 2.3 Urine Osmolality 958 Ur Random Sodium < 20.0 Assessment and Plan (1) A-fib: Status: Acute Plan 84-year-old female presenting with urinary tract infection and weakness. She has multiple myeloma and is on chemotherapy and will be undergoing radiation for bone metastasis. She is noticed to be in atrial fibrillation with rapid ventricular response. It appears she had an episode in November 2024 when she received amiodarone and converted to sinus rhythm. Plan was to send her home with [facility] at that stage. She is currently taking Cardizem and the atenolol along with the apixaban. Cardizem dose has been increased to 240 mg and drip will be discontinued. Stop atenolol and put her on metoprolol 25 mg twice a day. With multiple myeloma kidney dysfunction can happen and atenolol has renal clearance and can accumulate. I think we treat the urinary tract infection and do rate control strategy for now. Continue Eliquis as before. We will follow along with you. Thank you for allowing me to participate in the care of your patient. Please feel free to contact me if you have any questions. Procedures Date of Service Date of Service: 03/25/25
--- NOTE | 2025-03-25 16:17 | MHC.CM.PN ---
EMR REVIEWED, PER MD NOT YET READY FOR DC D/T CARDIAC MED CHANGES, CARDIZEM CHANGED FROM DRIP TO PO, METOPROLOL ADDED, PER NEPHRO CONT FLUID RESTRICTION W/SALT AND UREA D/T HYPONATREMIA, PT WILL RETURN TO LTC AT [facility] ONCE MEDICALLY CLEARED, CM WILL CONT TO FOLLOW DC NEEDS.
[2025-03-25] MEDS: Metoprolol Succinate ER 25 MG TAB.ER.24H PO (17:19)
[2025-03-26] VITALS (8 sets, daily range): BP systolic 96–128; BP diastolic 62–80; PULSE 60–148; RESP 12–20; TEMP 35.9–36.8; O2SAT 95–96
[2025-03-26 07:08] LABS: Anion Gap 13 (12-20); Blood Urea Nitrogen 50 mg/dL (9-16); Calcium 9.3 mg/dL (8.4-10.2); Carbon Dioxide 23 mmol/L (22-29); Chloride 98 mmol/L (96-108); Creatinine Clr Calc Pharmacy 70.0; Estimated Glomerular Filt Rate > 60; Potassium 4.6 mmol/L (3.3-5.1); Sodium 129 mmol/L (135-145)
--- NOTE | 2025-03-26 07:42 | PC.NURSE ---
Pt continues on Diltiazem drip overnight. Initially running at b15mg/hr. Around 2am, HR 80-90s, still in afib, drip decreased to 10mg/hr. Pt encouraged to use bedside commode as HR increases to the 170s with ambulation.
[2025-03-26] MEDS: dilTIAZem HCL CD 240 MG CAP.ER.DEG PO (09:23)
[2025-03-26] MEDS: Metoprolol Succinate ER 25 MG TAB.ER.24H PO (09:29)
[2025-03-26] MEDS: Sodium Chloride Tab 1 GM TABLET PO ×2 (09:29→21:34)
[2025-03-26] MEDS: 0.9 % Sodium Chloride Flush 3 ML SYRINGE IVFLUSH ×3 (09:36→21:41)
--- NOTE | 2025-03-26 11:27 | P.PNNP_ITS ---
Subjective Subjective Date of Service: 03/26/25 Interval history: following for hyponatremia sodium up to 129 this a.m., up from 127 yesterday- patient following fluid restriction. patient denies new concerns/complaints today Physical Exam 2 Vital Signs: Vital Signs: Last Vital Signs Temp 96.7 F L 03/26/25 08:00 Pulse 126 H 03/26/25 11:25 Resp 20 03/26/25 08:00 BP 118/64 03/26/25 11:25 Pulse Ox 95 03/26/25 08:00 O2 Del Method Room Air 03/26/25 08:00 BMI result Body Mass Index 23.9 Const: General: no acute distress, alert and awake Resp: Effort & Inspection: normal respiratory effort and able to speak in complete sentences Auscultation: clear to auscultation bilaterally Cardio: Jugular venous distension: no JVD Rate: regular rate Rhythm: r egular rhythm Heart sounds: S1 normal heart sound present and S2 normal heart sound present GI: Palpation (GI): Soft to palpation and nontender : General: Yes no CVA tenderness Back/Spine/Pelvis: Back: no CVA tenderness Skin: Rashes: no rashes Extrem: General: No edema and No pedal edema Objective Data Labs 03/21/25 05:05 03/26/25 06:36 Labs: Laboratory Results - last 24 hr 03/26/25 06:36 Hold Purple Top SEE NOTE Sodium 129 L Potassium 4.6 Chloride 98 Carbon Dioxide 23 Anion Gap 13 BUN 50 H Creatinine 0.55 Estim Creat Clear Calc 70.0 Estimated GFR > 60 Random Glucose 236 H Calcium 9.3 Microbiology Microbiology Results: Microbiology 03/18/25 18:54 Blood - Venous Blood Culture - Final No growth after 5 days. 03/18/25 18:54 Blood - Venous Blood Culture - Final No growth after 5 days. 03/18/25 Unknown Urine clean catch - Clean Catch Midstream Urine Culture - Final Procedures Date of Service Date of Service: 03/26/25 Assessment & Plan Assessment and plan (1) Acute hyponatremia: Status: Acute Plan Hyponatremia likely multifactorial due to SIADH given multiple bone metastasis and pain. Improving with fluid restriction Patient appears euvolemic today. recommend continue 1L fluid restriction per 24 hours. Continue salt tablets and urea powder as ordered. Patient is ok for discharge from a renal standpoint. Discussed with Dr Astorga. Time Spent With Patient Time: Total time managing care of this patient today ____ minutes. Progress Note: Quality Stroke Does the patient have a stroke diagnosis?: No
--- NOTE | 2025-03-26 14:23 | P.PNIM_ITS ---
Subjective Subjective Date of Service: 03/26/25 Interval History: Seen and examined this morning Follow-up for AFib RVR, lower back pain Lower back pain improving, overall generalized weakness better no red flag symptoms, no bladder/bowel incontinence, no changes in sensation Heart rate has been uncontrolled, denies shortness of breath, chest pain, palpitations Review of Systems Review of Systems: Yes all other systems are reviewed and are negative Constitutional Constitutional: Denies chills and Denies fever(s) Cardiovascular Cardiovascular: Denies chest pain, Denies palpitations, Denies dyspnea, Denies orthopnea and Denies paroxysmal nocturnal dyspnea Respiratory Respiratory: Denies dyspnea Endocrine Endocrine: Denies palpitations Physical Exam 2 Vital Signs: Vital Signs: Last Vital Signs Temp 96.7 F L 03/26/25 08:00 Pulse 126 H 03/26/25 11:25 Resp 20 03/26/25 08:00 BP 118/64 03/26/25 11:25 Pulse Ox 95 03/26/25 08:00 O2 Del Method Room Air 03/26/25 08:00 BMI result Body Mass Index 23.9 Const: General: cooperative, comfortable, no acute distress, alert and awake Nutritional Appearance: average body habitus Orientation/consciousness: p atient oriented x3 Resp: Effort & Inspection: normal respiratory effort, able to speak in complete sentences, no respiratory distress and no use of accessory muscles Cardio: Rate: regular rate GI: Palpation (GI): Soft to palpation Neuro: Other: sensation intact b/l LE General: patient oriented x3, moves all extremities and CN's II-XI intact bilaterally Objective Data Active Medications Acetaminophen (Acetaminophen 325 Mg Tablet) 650 mg PO Q6H PRN PRN Reason: Pain, Mild 1-3,fever,headache Last Admin: 03/22/25 03:41 Dose: 650 mg Documented By: JING Comments: pt request Apixaban (Apixaban 5 Mg Tablet) 5 mg PO BID [facility] Last Admin: 03/26/25 09:29 Dose: 5 mg Documented By: RASHAUN Bismuth Subsalicylate (Bismuth Subsalicylate 262 Mg Tablet) 262 mg PO QID PRN PRN Reason: stomach upset Calcium Carbonate (Calcium Carbonate 750 Mg Tab.Chew) 750 mg PO Q4H PRN PRN Reason: Heartburn Diltiazem HCl (Diltiazem Hcl Cd 240 Mg Cap.Er.Deg) 240 mg PO DAILY [facility]; Protocol Last Admin: 03/26/25 09:23 Dose: 240 mg Documented By: RASHAUN Docusate Sodium (Docusate Sodium 100 Mg Capsule) 100 mg PO BID [facility] Last Admin: 03/26/25 09:29 Dose: 100 mg Documented By: RASHAUN Hydrocortisone (Hydrocortisone 1 % Cream 28.35 Gm Tube) 1 appl TOPICAL BID PRN PRN Reason: Rash Last Admin: 03/24/25 16:23 Dose: 1 appl Documented By: RICCIAV Hydromorphone HCl (Hydromorphone Hcl 1 Mg/Ml Syringe) 0.25 mg IVPUSH Q4H PRN; Protocol PRN Reason: Pain, Severe (Pain Scale 7-10) Lidocaine (Lidocaine 4 % Patch Adh..Patch) 1 patch TRANSDERMA DAILY PRN PRN Reason: Pain Last Admin: 03/23/25 08:13 Dose: 1 patch Documented By: JERARDO Losartan Potassium (Losartan Potassium 50 Mg Tablet) 50 mg PO BID [facility]; Protocol On Hold: 03/25/25 07:53 Last Admin: 03/24/25 20:46 Dose: 50 mg Documented By: CARIN-YNESZEB Magnesium Hydroxide (Milk Of Magnesia 30 Ml Oral.Susp) 30 ml PO DAILY PRN PRN Reason: Constipation Last Admin: 03/20/25 09:01 Dose: 30 ml Documented By: PALAK Melatonin (Melatonin 3 Mg Tablet) 6 mg PO BEDTIME PRN PRN Reason: Insomnia Metoprolol Succinate (Metoprolol Succinate Er 50 Mg Tab.Er.24h) 50 mg PO BID [facility]; Protocol Omeprazole (Omeprazole 20 Mg Capsule.Dr) 20 mg PO DAILY@0630 [facility] Last Admin: 03/26/25 06:07 Dose: 20 mg Documented By: CARIN-MARCIALSK Ondansetron HCl (Ondansetron Hcl 4 Mg/2 Ml Vial) 4 mg IVPUSH Q8H PRN PRN Reason: Nausea and Vomiting Last Admin: 03/23/25 08:08 Dose: 4 mg Documented By: JERARDO Oxycodone HCl (Oxycodone Hcl Immed Release 5 Mg Tablet) 5 mg PO Q6H PRN PRN Reason: Pain, Moderate(Pain Scale 4-6) Prednisone (Prednisone 20 Mg Tablet) 40 mg PO DAILY [facility] Senna (Sennosides 8.6 Mg Tablet) 8.6 mg PO BEDTIME [facility] Last Admin: 03/25/25 20:35 Dose: 8.6 mg Documented By: CARIN-ALEXANDRIA Simethicone (Simethicone 80 Mg Tab.Chew) 80 mg PO TID PRN PRN Reason: Abdominal Discomfort Last Admin: 03/24/25 16:23 Dose: 80 mg Documented By: ROSEMARIE Simethicone (Simethicone 80 Mg Tab.Chew) 80 mg PO QIDWMHS PRN PRN Reason: gas Sodium Chloride (0.9 % Sodium Chloride Flush 3 Ml Syringe) 3 ml IVFLUSH QSHIFT [facility] Last Admin: 03/26/25 09:36 Dose: 3 ml Documented By: FAINADISUSHIL Sodium Chloride (Sodium Chloride Tab 1 Gm Tablet) 1 gm PO TID [facility] Last Admin: 03/26/25 09:29 Dose: 1 gm Documented By: FIGDIAN Urea (Urea 15 Gm Powder) 15 gm PO BID [facility] Last Admin: 03/26/25 09:30 Dose: 15 gm Documented By: FIGDIAN Labs 03/21/25 05:05 03/26/25 06:36 Labs: Laboratory Results - last 24 hr 03/26/25 06:36 Hold Purple Top SEE NOTE Anion Gap 13 Estim Creat Clear Calc 70.0 Estimated GFR > 60 Random Glucose 236 H Calcium 9.3 Assessment and Plan (1) A-fib: Status: Acute Plan 87 yo f with a pmhx significant for persisent a fib on eliquis, HLD, peripherial neuropathy, HTN and multiple myeloma with multiple thoracic and lumbar metastatic lesions with multilevel lumbar compression, who arrived to the ED via EMS due to difficult ambulating today with RLE weakness and ?R foot drop for the past week.MRI lumbar spine in the ED shows progressive T12 compression fx with 2mm increased height loss compared to prior and severe spinal canal stenosis at L2-L3 and other multilevel degenerative changes are similar to prior. UA+ for UTI. BMP with hyponatremia. [facility] neurosurgery was contacted by the ED provider who suggested no need for transfer, decadron 4mg Q8H. the pt is neurologically intact, no focal deficits, no urinary or bowel incontinence. Persistent a fib with RVR Heart rate remains uncontrolled. 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 intake Sodium up to 129 Nephrology following >continue salt tabs 1gm BID, urea 15gm BID and 1 liter fluid restriction Multiple myeloma with chronic low back pain and weakness MRI with worsening T12 compression fx, L2-L3 spinal canal stenosis unchanged no focal neuro deficits or foot drop currently. no red flag symptoms [facility] neurosurgery was contacted by ED provider with recommendations of no transfer seen by neurology, recommend conservative management transition IV decadron to po prednisone wean IV dilaudid, po oxycodone seen by PT, rec home with PT services oncology agrees with current management>plan for palliative radiation outpatient UTI no leukocytosis, vitals stable, no sepsis urine culture mixed stopped Rocephin HLD Hold statin for elevated LFTs (thought to be due to previous treatment) HTN continue home meds full code VTE prophy: trisha dispo: home with PT services Quality Stroke Does the patient have a stroke diagnosis?: No VTE Prior VTE?: No VTE Risk Level:: Medical - moderate - high VTE Device Contraindication: Treatment Not Indicated VTE Drug Contraindication: N/A - Med Ordered
[2025-03-26 16:02] LABS: Free T4 (Free Thyroxine) 1.25 ng/dL (0.71-1.85)
[2025-03-26] MEDS: Metoprolol Succinate ER 50 MG TAB.ER.24H PO (21:34)
[2025-03-27] VITALS (7 sets, daily range): BP systolic 100–136; BP diastolic 68–95; PULSE 88–141; RESP 17–18; TEMP 36.2–36.6; O2SAT 94–97
--- NOTE | 2025-03-27 03:54 | PC.NURSE ---
Pt continues with rapid afib. HR 140-160s even at rest. Iv Cardizem given x1. Pt HR now 90-110s post Iv Cardizem.
[2025-03-27 07:11] LABS: Anion Gap 12 (12-20); Blood Urea Nitrogen 37 mg/dL (9-16); Calcium 8.8 mg/dL (8.4-10.2); Carbon Dioxide 24 mmol/L (22-29); Chloride 98 mmol/L (96-108); Creatinine Clr Calc Pharmacy 71.2; Estimated Glomerular Filt Rate > 60; Potassium 4.4 mmol/L (3.3-5.1); Sodium 130 mmol/L (135-145)
[2025-03-27] MEDS: Metoprolol Succinate ER 50 MG TAB.ER.24H PO ×2 (07:59→20:35)
[2025-03-27] MEDS: Sodium Chloride Tab 1 GM TABLET PO ×3 (08:06→20:35)
[2025-03-27] MEDS: dilTIAZem HCL CD 240 MG CAP.ER.DEG PO (08:06)
[2025-03-27] MEDS: 0.9 % Sodium Chloride Flush 3 ML SYRINGE IVFLUSH ×3 (08:07→20:35)
--- NOTE | 2025-03-27 10:55 | P.PNNP_ITS ---
Subjective Subjective Date of Service: 03/27/25 Interval history: following for hyponatremia sodium up to 130 this a.m., up from 129 yesterday- patient following fluid restriction. patient denies new concerns/complaints today Physical Exam 2 Vital Signs: Vital Signs: Last Vital Signs Temp 97.7 F 03/27/25 07:42 Pulse 98 03/27/25 08:06 Resp 17 03/27/25 07:42 BP 108/68 03/27/25 08:06 Pulse Ox 94 03/27/25 07:42 O2 Del Method Room Air 03/27/25 07:42 BMI result Body Mass Index 23.9 Const: General: no acute distress, alert and awake Resp: Effort & Inspection: normal respiratory effort and able to speak in complete sentences Auscultation: clear to auscultation bilaterally Cardio: Jugular venous distension: no JVD Rate: regular rate Rhythm: r egular rhythm Heart sounds: S1 normal heart sound present and S2 normal heart sound present GI: Palpation (GI): Soft to palpation and nontender : General: Yes no CVA tenderness Back/Spine/Pelvis: Back: no CVA tenderness Skin: Rashes: no rashes Extrem: General: No edema and No pedal edema Objective Data Labs 03/21/25 05:05 03/27/25 06:10 Labs: Laboratory Results - last 24 hr 03/26/25 03/27/25 06:36 06:10 Sodium 130 L Potassium 4.4 Chloride 98 Carbon Dioxide 24 Anion Gap 12 BUN 37 H Creatinine 0.54 Estim Creat Clear Calc 71.2 Estimated GFR > 60 Random Glucose 201 H Calcium 8.8 TSH 0.15 L Free T4 1.25 Microbiology Microbiology Results: Microbiology 03/18/25 18:54 Blood - Venous Blood Culture - Final No growth after 5 days. 03/18/25 18:54 Blood - Venous Blood Culture - Final No growth after 5 days. 03/18/25 Unknown Urine clean catch - Clean Catch Midstream Urine Culture - Final Procedures Date of Service Date of Service: 03/27/25 Assessment & Plan Assessment and plan (1) Acute hyponatremia: Status: Acute Plan Hyponatremia likely multifactorial due to SIADH given multiple bone metastasis and pain. Improving with fluid restriction Patient appears euvolemic today. recommend continue 1L fluid restriction per 24 hours. Continue salt tablets as ordered- d/c'd urea powder. Patient is ok for discharge from a renal standpoint. Discussed with Dr Astorga. Time Spent With Patient Time: Total time managing care of this patient today ____ minutes. Progress Note: Quality Stroke Does the patient have a stroke diagnosis?: No
--- NOTE | 2025-03-27 11:56 | MHC.CM.PN ---
EMR REVIEWED, PT W/EVERT/UTI/HYPONATREMIA/LABILE HR, PER MD PT'S HR NOT STABLE W/SOFT AND NOT YET READY FOR DC, P.T. HAS RECOMMENDED HOME SERVICES HOWEVER HAS NOT BEEN ABLE TOWORK W/PT SINCE EVAL ON03/19 D/T ELEVATED HR AND MAY NEED REASSESS WHEN STABLIZED, CM WILL CONT TO FOLLOW DC NEEDS.
[2025-03-27] MEDS: Lactated Ringers 500 ML 100 ML IVCONT (13:17)
--- NOTE | 2025-03-27 13:57 | MHC.CLN ---
F/U DIET=REGULAR. FLUID RESTRICTION 1000 ML. SUPPLEMENT ENSURE BID PROVIDES 700 KCALS, 40 G PROTEIN. INCREASED NUTRITION NEEDS DUE TO PROLONGED CATABOLIC ILLNESS, MULTIPLE MYELOMA WITH METS TO BONE. VARIABLE PO INTAKE, 50-100%. FOLLOW FOR PO INTAKE.
--- NOTE | 2025-03-27 14:45 | P.PNIM_ITS ---
Subjective Subjective Date of Service: 03/27/25 Interval History: seen and examined this morning follow up for afib rvr, back pain back pain under better control HR remains intermittently uncontrolled, patient remains asymptomatic - received IV bolus of cardizem overnight Constitutional Constitutional: Denies chills and Denies fever(s) Cardiovascular Cardiovascular: Denies chest pain, Denies lightheadedness, Denies palpitations and Denies orthopnea Endocrine Endocrine: Denies palpitations Physical Exam 2 Vital Signs: Vital Signs: Last Vital Signs Temp 97.7 F 03/27/25 07:42 Pulse 98 03/27/25 08:06 Resp 17 03/27/25 07:42 BP 108/68 03/27/25 08:06 Pulse Ox 94 03/27/25 07:42 O2 Del Method Room Air 03/27/25 07:42 BMI result Body Mass Index 23.9 Const: General: cooperative, comfortable, no acute distress, alert and awake Nutritional Appearance: average body habitus Orientation/consciousness: p atient oriented x3 Resp: Effort & Inspection: normal respiratory effort, able to speak in complete sentences, no respiratory distress and no use of accessory muscles Cardio: Rate: regular rate GI: Palpation (GI): Soft to palpation Neuro: Other: sensation intact b/l LE General: patient oriented x3, moves all extremities and CN's II-XI intact bilaterally Objective Data Active Medications Acetaminophen (Acetaminophen 325 Mg Tablet) 650 mg PO Q6H PRN PRN Reason: Pain, Mild 1-3,fever,headache Last Admin: 03/22/25 03:41 Dose: 650 mg Documented By: JING Comments: pt request Apixaban (Apixaban 5 Mg Tablet) 5 mg PO BID [facility] Last Admin: 03/27/25 08:06 Dose: 5 mg Documented By: RASHAUN Bismuth Subsalicylate (Bismuth Subsalicylate 262 Mg Tablet) 262 mg PO QID PRN PRN Reason: stomach upset Calcium Carbonate (Calcium Carbonate 750 Mg Tab.Chew) 750 mg PO Q4H PRN PRN Reason: Heartburn Diltiazem HCl (Diltiazem Hcl Cd 240 Mg Cap.Er.Deg) 240 mg PO DAILY [facility]; Protocol Last Admin: 03/27/25 08:06 Dose: 240 mg Documented By: RASHAUN Docusate Sodium (Docusate Sodium 100 Mg Capsule) 100 mg PO BID [facility] Last Admin: 03/27/25 08:06 Dose: 100 mg Documented By: RASHAUN Hydrocortisone (Hydrocortisone 1 % Cream 28.35 Gm Tube) 1 appl TOPICAL BID PRN PRN Reason: Rash Last Admin: 03/24/25 16:23 Dose: 1 appl Documented By: RICCIAV Hydromorphone HCl (Hydromorphone Hcl 1 Mg/Ml Syringe) 0.25 mg IVPUSH Q4H PRN; Protocol PRN Reason: Pain, Severe (Pain Scale 7-10) Last Admin: 03/27/25 03:44 Dose: 0.25 mg Documented By: CARIN-ALEXANDRI[place] Lactated Ringer's (Lr) 500 mls @ 100 mls/hr IVCONT .Q5H [facility] Stop: 03/27/25 18:14 Last Admin: 03/27/25 13:17 Dose: 100 mls/hr Documented By: RASHAUN Lidocaine (Lidocaine 4 % Patch Adh..Patch) 1 patch TRANSDERMA DAILY PRN PRN Reason: Pain Last Admin: 03/23/25 08:13 Dose: 1 patch Documented By: MOHAMER Losartan Potassium (Losartan Potassium 50 Mg Tablet) 50 mg PO BID [facility]; Protocol On Hold: 03/25/25 07:53 Last Admin: 03/24/25 20:46 Dose: 50 mg Documented By: CHRISTINAZEB Magnesium Hydroxide (Milk Of Magnesia 30 Ml Oral.Susp) 30 ml PO DAILY PRN PRN Reason: Constipation Last Admin: 03/20/25 09:01 Dose: 30 ml Documented By: PALAK Melatonin (Melatonin 3 Mg Tablet) 6 mg PO BEDTIME PRN PRN Reason: Insomnia Metoprolol Succinate (Metoprolol Succinate Er 50 Mg Tab.Er.24h) 50 mg PO BID [facility]; Protocol Last Admin: 03/27/25 07:59 Dose: 50 mg Documented By: RASHAUN Omeprazole (Omeprazole 20 Mg Capsule.) 20 mg PO DAILY@0630 [facility] Last Admin: 03/27/25 05:34 Dose: 20 mg Documented By: CARIN-ALEX[place]RI[place] Ondansetron HCl (Ondansetron Hcl 4 Mg/2 Ml Vial) 4 mg IVPUSH Q8H PRN PRN Reason: Nausea and Vomiting Last Admin: 03/23/25 08:08 Dose: 4 mg Documented By: JERARDO Oxycodone HCl (Oxycodone Hcl Immed Release 5 Mg Tablet) 5 mg PO Q6H PRN PRN Reason: Pain, Moderate(Pain Scale 4-6) Prednisone (Prednisone 20 Mg Tablet) 40 mg PO DAILY [facility] Last Admin: 03/27/25 08:06 Dose: 40 mg Documented By: RASHAUN Senna (Sennosides 8.6 Mg Tablet) 8.6 mg PO BEDTIME [facility] Last Admin: 03/26/25 21:34 Dose: 8.6 mg Documented By: N-DESSK Simethicone (Simethicone 80 Mg Tab.Chew) 80 mg PO TID PRN PRN Reason: Abdominal Discomfort Last Admin: 03/24/25 16:23 Dose: 80 mg Documented By: RICCIAV Sodium Chloride (0.9 % Sodium Chloride Flush 3 Ml Syringe) 3 ml IVFLUSH QSHIFT [facility] Last Admin: 03/27/25 08:07 Dose: 3 ml Documented By: RASHAUN Sodium Chloride (Sodium Chloride Tab 1 Gm Tablet) 1 gm PO TID [facility] Last Admin: 03/27/25 08:06 Dose: 1 gm Documented By: RASHAUN Labs 03/21/25 05:05 03/27/25 06:10 Labs: Laboratory Results - last 24 hr 03/26/25 03/27/25 06:36 06:10 Anion Gap 12 Estim Creat Clear Calc 71.2 Estimated GFR > 60 Random Glucose 201 H Calcium 8.8 TSH 0.15 L Free T4 1.25 Assessment and Plan (1) Paroxysmal atrial fibrillation: Status: Acute (2) Multiple myeloma: Status: Acute (3) Lower back pain: Status: Acute Plan 87 yo f with a pmhx significant for persisent a fib on eliquis, HLD, peripherial neuropathy, HTN and multiple myeloma with multiple thoracic and lumbar metastatic lesions with multilevel lumbar compression, who arrived to the ED via EMS due to difficult ambulating today with RLE weakness and ?R foot drop for the past week.MRI lumbar spine in the ED shows progressive T12 compression fx with 2mm increased height loss compared to prior and severe spinal canal stenosis at L2-L3 and other multilevel degenerative changes are similar to prior. UA+ for UTI. BMP with hyponatremia. [facility] neurosurgery was contacted by the ED provider who suggested no need for transfer, decadron 4mg Q8H. the pt is neurologically intact, no focal deficits, no urinary or bowel incontinence. Persistent a fib with RVR Heart rate remains uncontrolled. 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 intake Sodium up to 130 Nephrology following >continue salt tabs 1gm BID,and 1 liter fluid restriction; stop urea outpatient follow up Multiple myeloma with chronic low back pain and weakness MRI with worsening T12 compression fx, L2-L3 spinal canal stenosis unchanged no focal neuro deficits or foot drop currently. no red flag symptoms [facility] neurosurgery was contacted by ED provider with recommendations of no transfer seen by neurology, recommend conservative management transitioned IV decadron to po prednisone 40 mg daily - wean by 10mg/week wean IV dilaudid, po oxycodone seen by PT, rec home with PT services oncology agrees with current management>plan for palliative radiation outpatient UTI no leukocytosis, vitals stable, no sepsis urine culture mixed stopped Rocephin HLD Hold statin for elevated LFTs (thought to be due to previous treatment) HTN continue home meds full code VTE prophy: eliquis dispo: home with PT services when medically ready Patient requires ongoing inpatient stay due to unstable heart rate requiring close cardiac monitoring and specialist evaluation Quality Stroke Does the patient have a stroke diagnosis?: No VTE Prior VTE?: No VTE Risk Level:: Medical - moderate - high VTE Device Contraindication: Treatment Not Indicated VTE Drug Contraindication: N/A - Med Ordered
--- NOTE | 2025-03-27 15:26 | PM.PNCARD ---
Subjective Subjective Date of Service: 03/27/25 Interval history: Seen and examined at bedside. Denying any chest pain or shortness of breath. She has been getting back pain and at that time her heart rates are uncontrolled. Overall the AFib control is not optimal. Physical Exam Vital Signs: Last Vital Signs Temp 97.7 F 03/27/25 07:42 Pulse 98 03/27/25 08:06 Resp 17 03/27/25 07:42 BP 108/68 03/27/25 08:06 Pulse Ox 94 03/27/25 07:42 O2 Del Method Room Air 03/27/25 07:42 BMI result Body Mass Index 23.9 GENERAL APPEARANCE: in no acute distress, pleasant. NECK: no carotid bruit, no jugular venous distention. SKIN: no suspicious lesions, warm and dry. HEART: no murmurs, irregular rate and rhythm. Tachycardic. LUNGS: clear to auscultation bilaterally. ABDOMEN: soft, nontender. EXTREMITIES: no edema. PERIPHERAL PULSES: equal. NEUROLOGIC: No gross deficits, AAO X 3 Objective Labs and Meds 03/21/25 05:05 03/27/25 06:10 Lab results: Laboratory Results - last 24 hr 03/26/25 03/27/25 06:36 06:10 Sodium 130 L Potassium 4.4 Chloride 98 Carbon Dioxide 24 Anion Gap 12 BUN 37 H Creatinine 0.54 Estim Creat Clear Calc 71.2 Estimated GFR > 60 Random Glucose 201 H Calcium 8.8 Free T4 1.25 Progress Note: A&P Assessment and plan (1) A-fib: Status: Acute Plan [age] year female with AFib with RVR on background of multiple myeloma with bone metastasis. She has very poor appetite and has not been eating. She also has back pain which effects rate control. On Cardizem and metoprolol. We will try gentle hydration to see if that helps with improvement of heart rate. Increasing Toprol-XL to 100 mg twice a day. Continue Cardizem at same dose of 240 mg daily. Thank you for allowing me to participate in the care of your patient. Please feel free to contact me if you have any questions. Time Spent With Patient Time: Total time managing care of this patient today ____ minutes. Progress Note: Quality Stroke Does the patient have a stroke diagnosis?: No Procedures Date of Service Date of Service: 03/27/25
--- NOTE | 2025-03-28 01:24 | PM.EVENT ---
Event Note Date of Service: 03/28/25 Event Note: RN reported patient sustaining Afib with hr 140-160s. Will order IV cardizem Time Spent With Patient Time: Total time managing care of this patient today ____ minutes.
[2025-03-28 01:36] VITALS: BP 114/74; PULSE 147
[2025-03-28 03:47] VITALS: BP 126/91; PULSE 93; RESP 16; TEMP 36.5; O2SAT 96
[2025-03-28] MEDS: Sodium Chloride Tab 1 GM TABLET PO ×2 (07:28→15:27)
[2025-03-28 07:31] VITALS: BP 110/65; PULSE 66
[2025-03-28] MEDS: dilTIAZem HCL CD 240 MG CAP.ER.DEG PO (07:31)
[2025-03-28] MEDS: Metoprolol Succinate ER 100 MG TAB.ER.24H PO (07:31)
[2025-03-28] MEDS: 0.9 % Sodium Chloride Flush 3 ML SYRINGE IVFLUSH ×2 (07:32→15:30)
[2025-03-28 07:34] VITALS: BP 110/65; PULSE 66; RESP 20; TEMP 36.1; O2SAT 97
--- NOTE | 2025-03-28 11:54 | P.DS_ITS ---
DS: Providers Provider Date of Service: 03/28/25 Date of admission: 03/18/25 23:56 Date of discharge: 03/28/25 Primary care physician: Krista Allen MD Consults: 03/19/25 00:04 Consult to Hematology / Oncology Routine Consulting Provider: Hamida Watts Reason for consultation: pt of yours, MM, worsening back pain, weakness Has provider been notified: No 03/19/25 00:05 Consult to Nephrology Routine Consulting Provider: [facility] Reason for consultation: hyponatremia Has provider been notified: No 03/19/25 00:29 Consult to Neurology Routine Consulting Provider: [facility] Reason for consultation: weakness, falls, L2-L3 stenosis Has provider been notified: No 03/25/25 07:52 Consult to Cardiology Routine Consulting Provider: [facility] Reason for consultation: afib rvr Attending physician on discharge: Raisa Crystal Discharging clinician: Linnea Baer DS: Diagnosis Discharge Diagnosis (1) A-fib: Status: Acute DS: Summary Hospital Course Hospital Course: History and physical as per admitting provider. pt is an 87 yo f with a pmhx significant for persisent a fib on eliquis, HLD, peripherial neuropathy, HTN and multiple myeloma with multiple thoracic and lumbar metastatic lesions with multilevel lumbar compression, who arrived to the ED via EMS due to difficult ambulating today with RLE weakness and ?R foot drop for the past week. today she had a fall around 11:00 due to her weakness and was unable to get off the ground but was with someone who was able to call EMS. she describes constant severe bilateral upper leg and low back pain and has had a recent increase in her home morphine regimen. She has had increased lumbar spine pain for the past week and was seen by the [employer] at her oncologist today who recommended she report to the ED for further evaluation due to hyponatremia and pain. of note the office visit note states that leo was able to ambulate in the office slowly but without difficulty or foot drop. she was supposed to start palliative raditation treatment but it is on hold due to her elevated liver enzymes. she is also reporting urianry frequency and memory issues for the past week. she denies any urinary or bowel incontinence. MRI lumbar spine in the ED shows progressive T12 compression fx with 2mm increased height loss compared to prior and severe spinal canal stenosis at L2-L3 and other multilevel degenerative changes are similar to prior. UA+ for UTI. BMP with hyponatremia. [facility] neurosurgery was contacted by the ED provider who suggested no need for transfer, decadron 4mg Q8H. 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 Patient was seen by Nephrology, started on salt tablets as well as sodium restriction. Sodium improved to 130. Continue sodium chloride tablets upon discharge Atrial fibrillation with rapid ventricular response Heart rate difficult to control, pain may be playing a role. Seen by Cardiology, initially requiring Cardizem drip, transitioned to oral Cardizem and oral metoprolol also added. Overall heart rate significantly improved, continues to have tachycardia with ambulation likely in part due to deconditioning. Patient has remained asymptomatic throughout hospitalization. Continue anticoagulation with Eliquis Multiple myeloma with chronic low back pain and weakness MRI with worsening T12 compression fx, L2-L3 spinal canal stenosis unchanged. no focal neuro deficits or foot drop currently. no red flag symptoms. [facility] neurosurgery was contacted and there was no need to transfer the patient. She was evaluated by neurology who recommend conservative management and agreed with steroids. She was treated with IV decadron which was transitioned to prednisone, and a taper will be continued on discharge. Seen by oncology who agrees with current management, plan for outpatient palliative radiation for pain control. She will go to [facility] for strengthening before returning home. UTI no leukocytosis, vitals stable, no sepsis and no urinary symptoms. urine culture mixed suggestive of urogenital contamination. Antibiotics were discontinued. HLD LFTs Trending down. thought to be due to previous treatment for MM. Resume statin on d/c HTN atenolol stopped. bp controlled on diltiazem and metoprolol Time Attestation Discharge Coordination Time (in mins): 36 Quality: Safe Use of Opioids Does Pt have an Active Cancer Diagnosis on the Problem List?: No Quality: Stroke Does the patient have a stroke diagnosis?: No Physical Exam Vital Signs: Vital Signs: Last Vital Signs Temp 97.0 F 03/28/25 07:34 Pulse 66 03/28/25 07:34 Resp 20 03/28/25 07:34 BP 110/65 03/28/25 07:34 Pulse Ox 97 03/28/25 07:34 O2 Del Method Room Air 03/28/25 07:34 BMI result Body Mass Index 23.9 Const: General: cooperative, no acute distress, alert and awake Nutritional Appearance: average body habitus Orientation/consciousness: patient oriented x3 Resp: Effort & Inspection: normal respiratory effort and able to speak in complete sentences Auscultation: breath sounds present and no vesicular sounds Cardio: Rate: regular rate GI: Palpation (GI): Soft to palpation Neuro: Other: sensation intact b/l LE General: patient oriented x3 Discharge Plan Discharge Anticipated Discharge Date/Time: 03/28/25 12:10 Patient Disposition: Xfer SNF Discharge Diagnosis: multiple myeloma spinal stenosis, T12 compression fracture Hyponatremia Atrial fibrillation with rapid ventricular response Referrals: [facility] [Outside] - 1 Week Krista Allen MD [Primary Care Provider, Internal Medicine] - 1 Week Discharge Medications: New diltiazem HCl 240 mg Capsule,Extended Release 24hr 240 mg PO DAILY Qty: 90 0RF Protocol: Hold for SBP/HR < HOLD for SBP < : 90 HOLD for HR < : 60 prednisone 20 mg Tablet 40 mg PO DAILY 7 Days Qty: 14 0RF docusate sodium 100 mg Capsule 100 mg PO BID Qty: 90 0RF sodium chloride 1,000 mg Tablet,Soluble 1,000 mg PO TID Qty: 120 0RF metoprolol succinate 50 mg tablet extended release 24 hr 50 mg PO BID Qty: 90 0RF hydromorphone [Dilaudid] 2 mg tablet 2 mg PO Q4-6H PRN (Reason: pain) Qty: 10 0RF Rx Instructions: Partial Fill upon patient request. Continued apixaban 5 mg tablet 5 mg PO BID Qty: 180 3RF simvastatin 20 mg tablet 20 mg PO BEDTIME omeprazole 20 mg Capsule,Delayed Release(Dr/Ec) 20 mg PO DAILY@0630 sennosides [senna] 8.6 mg tablet 8.6 mg PO BEDTIME PRN (Reason: Constipation) lidocaine [Lidoderm] 5 % adhesive patch,medicated 1 patch TOPICAL DAILY PRN (Reason: Pain) Rx Instructions: leave on most painful area for up to 12 hrs hydrocortisone 2.5 % cream 1 appl TOPICAL BID PRN (Reason: Rash) Rx Instructions: Apply twice a day to the affected areas. oxycodone 5 mg tablet 5 mg PO Q6H PRN (Reason: severe pain) lorazepam 0.5 mg tablet 0.5 mg PO BEDTIME PRN (Reason: Sleep/Restlessness) Qty: 30 0RF simethicone 80 mg Tablet,Chewable 80 mg PO TID PRN (Reason: Abdominal Discomfort) Qty: 30 1RF Discontinued lisinopril 20 mg tablet 20 mg PO BID Qty: 180 3RF atenolol 25 mg tablet 25 mg PO DAILY Discharge Orders: Discharge Order (Routine); Ordered 03/28/25 Ordered By: Linnea Baer Diet: Advance to usual diet Activity on Discharge: As tolerated Stand Alone Forms: Patient Portal Discharge page Print Language: Rwandan Care Plan Goals: imporve strength Health Concerns: Acute hyponatremia back pain atrial fibrillation with rapid heart rarte Plan of Treatment: take salt tablets as prescribed 1L fluid restriction monitor sodium levels intermittently. Outpatient follow-up with Nephrology as needed Prednisone 40 mg for 5 more days and then consider tapering by 10 mg per week. Plan for outpatient palliative radiation for pain control Outpatient follow-up with Oncology for atrial fibrillation - continue diltiazem, metoprolol, Eliquis bowel regimen to prevent constipation Assessment: See discharge summary
--- NOTE | 2025-03-28 12:06 | PM.PNCARD ---
Subjective Subjective Date of Service: 03/28/25 Interval history: Seen examined at bedside. Overall heart rate has improved significantly. Physical Exam Vital Signs: Last Vital Signs Temp 97.0 F 03/28/25 07:34 Pulse 66 03/28/25 07:34 Resp 20 03/28/25 07:34 BP 110/65 03/28/25 07:34 Pulse Ox 97 03/28/25 07:34 O2 Del Method Room Air 03/28/25 07:34 BMI result Body Mass Index 23.9 GENERAL APPEARANCE: in no acute distress, pleasant. NECK: no carotid bruit, no jugular venous distention. SKIN: no suspicious lesions, warm and dry. HEART: no murmurs, irregular rate and rhythm. LUNGS: clear to auscultation bilaterally. ABDOMEN: soft, nontender. EXTREMITIES: no edema. PERIPHERAL PULSES: equal. NEUROLOGIC: No gross deficits, AAO X 3 Objective Labs and Meds 03/21/25 05:05 03/27/25 06:10 Progress Note: A&P Assessment and plan (1) Hypertension: Status: Acute (2) A-fib: Status: Acute Plan 84 year lady with atrial fibrillation in the setting of a urinary tract infection on background of multiple myeloma. Heart rate was difficult to control. Overall better with diltiazem and metoprolol combination. Can be discharged home from cardiovascular point of view. Thank you for allowing me to participate in the care of your patient. Please feel free to contact me if you have any questions. Time Spent With Patient Time: Total time managing care of this patient today ____ minutes. Progress Note: Quality Stroke Does the patient have a stroke diagnosis?: No Procedures Date of Service Date of Service: 03/28/25
--- NOTE | 2025-03-28 12:16 | MHC.CM.PN ---
IMM addressed with Patient at bedside.
--- NOTE | 2025-03-28 13:02 | HO.PM.IMPN ---
Subjective Subjective Date of Service: 03/28/25 Interval History: Seen and examined this morning Follow-up for back pain, AFib RVR heart rate overall improving but still becomes tachycardic with ambulation/movement Continues to deny chest pain, palpitations, shortness of breath, dizziness Constitutional Constitutional: Denies chills and Denies fever(s) Physical Exam Vital Signs: Vital Signs: Last Vital Signs Temp 97.0 F 03/28/25 07:34 Pulse 66 03/28/25 07:34 Resp 20 03/28/25 07:34 BP 110/65 03/28/25 07:34 Pulse Ox 97 03/28/25 07:34 O2 Del Method Room Air 03/28/25 07:34 BMI result Body Mass Index 23.9 Const: General: cooperative and comfortable Nutritional Appearance: average body habitus Orientation/consciousness: patient oriented x3 Resp: Effort & Inspection: normal respiratory effort, able to speak in complete sentences, no respiratory distress and no use of accessory muscles Auscultation: breath sounds present and no vesicular sounds Cardio: Rate: regular rate GI: Palpation (GI): Soft to palpation Neuro: Other: sensation intact b/l LE General: patient oriented x3, moves all extremities and CN's II-XI intact bilaterally Objective Data Active Medications Acetaminophen (Acetaminophen 325 Mg Tablet) 650 mg PO Q6H PRN PRN Reason: Pain, Mild 1-3,fever,headache Last Admin: 03/22/25 03:41 Dose: 650 mg Documented By: JING Comments: pt request Apixaban (Apixaban 5 Mg Tablet) 5 mg PO BID [facility] Last Admin: 03/28/25 07:28 Dose: 5 mg Documented By: RASHAUN Bismuth Subsalicylate (Bismuth Subsalicylate 262 Mg Tablet) 262 mg PO QID PRN PRN Reason: stomach upset Calcium Carbonate (Calcium Carbonate 750 Mg Tab.Chew) 750 mg PO Q4H PRN PRN Reason: Heartburn Diltiazem HCl (Diltiazem Hcl Cd 240 Mg Cap.Er.Deg) 240 mg PO DAILY [facility]; Protocol Last Admin: 03/28/25 07:31 Dose: 240 mg Documented By: RASHAUN Docusate Sodium (Docusate Sodium 100 Mg Capsule) 100 mg PO BID [facility] Last Admin: 03/28/25 07:28 Dose: 100 mg Documented By: RASHAUN Hydrocortisone (Hydrocortisone 1 % Cream 28.35 Gm Tube) 1 appl TOPICAL BID PRN PRN Reason: Rash Last Admin: 03/24/25 16:23 Dose: 1 appl Documented By: ROSEMARIE Hydromorphone HCl (Hydromorphone Hcl 2 Mg Tablet) 2 mg PO Q4H PRN PRN Reason: Pain, Severe (Pain Scale 7-10) Last Admin: 03/28/25 12:44 Dose: 2 mg Documented By: RASHAUN Lactated Ringer's (Lr) 1,000 mls @ 80 mls/hr IVCONT .[id number] [facility] Stop: 03/28/25 19:14 Lidocaine (Lidocaine 4 % Patch Adh..Patch) 1 patch TRANSDERMA DAILY PRN PRN Reason: Pain Last Admin: 03/23/25 08:13 Dose: 1 patch Documented By: JERARDO Losartan Potassium (Losartan Potassium 50 Mg Tablet) 50 mg PO BID [facility]; Protocol On Hold: 03/25/25 07:53 Last Admin: 03/24/25 20:46 Dose: 50 mg Documented By: CHRISTINAZERick Magnesium Hydroxide (Milk Of Magnesia 30 Ml Oral.Susp) 30 ml PO DAILY PRN PRN Reason: Constipation Last Admin: 03/20/25 09:01 Dose: 30 ml Documented By: PALAK Melatonin (Melatonin 3 Mg Tablet) 6 mg PO BEDTIME PRN PRN Reason: Insomnia Metoprolol Succinate (Metoprolol Succinate Er 100 Mg Tab.Er.24h) 100 mg PO BID [facility]; Protocol Last Admin: 03/28/25 07:31 Dose: 100 mg Documented By: RASHAUN Omeprazole (Omeprazole 20 Mg Capsule.Dr) 20 mg PO DAILY@0630 [facility] Last Admin: 03/28/25 05:49 Dose: 20 mg Documented By: HI Ondansetron HCl (Ondansetron Hcl 4 Mg/2 Ml Vial) 4 mg IVPUSH Q8H PRN PRN Reason: Nausea and Vomiting Last Admin: 03/23/25 08:08 Dose: 4 mg Documented By: JERARDO Prednisone (Prednisone 20 Mg Tablet) 40 mg PO DAILY [facility] Last Admin: 03/28/25 07:27 Dose: 40 mg Documented By: RASHAUN Senna (Sennosides 8.6 Mg Tablet) 8.6 mg PO BEDTIME [facility] Last Admin: 03/27/25 20:35 Dose: 8.6 mg Documented By: CARIN-JESSE Simethicone (Simethicone 80 Mg Tab.Chew) 80 mg PO TID PRN PRN Reason: Abdominal Discomfort Last Admin: 03/24/25 16:23 Dose: 80 mg Documented By: RICCIAV Sodium Chloride (0.9 % Sodium Chloride Flush 3 Ml Syringe) 3 ml IVFLUSH QSHIFT [facility] Last Admin: 03/28/25 07:32 Dose: 3 ml Documented By: RASHAUN Sodium Chloride (Sodium Chloride Tab 1 Gm Tablet) 1 gm PO TID [facility] Last Admin: 03/28/25 07:28 Dose: 1 gm Documented By: RASHAUN Labs 03/21/25 05:05 03/27/25 06:10 Assessment and Plan (1) A-fib: Status: Acute Plan 87 yo f with a pmhx significant for persisent a fib on eliquis, HLD, peripherial neuropathy, HTN and multiple myeloma with multiple thoracic and lumbar metastatic lesions with multilevel lumbar compression, who arrived to the ED via EMS due to difficult ambulating today with RLE weakness and ?R foot drop for the past week.MRI lumbar spine in the ED shows progressive T12 compression fx with 2mm increased height loss compared to prior and severe spinal canal stenosis at L2-L3 and other multilevel degenerative changes are similar to prior. UA+ for UTI. BMP with hyponatremia. [facility] neurosurgery was contacted by the ED provider who suggested no need for transfer, decadron 4mg Q8H. the pt is neurologically intact, no focal deficits, no urinary or bowel incontinence. Persistent a fib with RVR Heart rate remains uncontrolled. patient asymptomatic. likely compounded by deconditioning Cardiology following Status post Cardizem drip Continue Oral Cardizem 240 Dose of metoprolol increased to 100 bid No further digoxin as per Cardiology Continue anticoagulation with Eliquis treat pain monitor closely Hypertension losartan d/c bp controlled on diltiazem, metoprolol Acute on chronic hyponatremia Likely multifactorial due to SIADH with bone Mets/pain, poor p.o. intake Sodium up to 130 Nephrology following >continue salt tabs 1gm BID,and 1 liter fluid restriction; stop urea outpatient follow up Multiple myeloma with chronic low back pain and weakness MRI with worsening T12 compression fx, L2-L3 spinal canal stenosis unchanged no focal neuro deficits or foot drop currently. no red flag symptoms [facility] neurosurgery was contacted by ED provider with recommendations of no transfer seen by neurology, recommend conservative management transitioned IV decadron to po prednisone 40 mg daily - wean by 10mg/week wean IV dilaudid, to po dilaudid seen by PT, rec home with PT services oncology agrees with current management>plan for palliative radiation outpatient UTI no leukocytosis, vitals stable, no sepsis urine culture mixed stopped Rocephin HLD Hold statin for elevated LFTs (thought to be due to previous treatment) full code VTE prophy: trisha dispo: home with PT vs STR; PT re-eval planned for Sunday Patient requires ongoing inpatient stay due to unstable heart rate requiring close cardiac monitoring and specialist evaluation Quality Stroke Does the patient have a stroke diagnosis?: No VTE Prior VTE?: No VTE Risk Level:: Medical - moderate - high VTE Device Contraindication: Treatment Not Indicated VTE Drug Contraindication: N/A - Med Ordered
--- NOTE | 2025-03-28 13:16 | MHC.CM.PN ---
PT recommended home with services on 03/23/2025([facility] accepted) but have not been able to work with Patient since then, r/t her HR. Patient is agreeable to STR; PT will re-eval on 03/30/2025. CM will follow.
--- NOTE | 2025-03-28 14:09 | MHC.CM.PN ---
Addendum entered by Magalie Merritt 03/28/25 15:01: CM met with Patient and her Daughter at bedside. Patient prefers to go to [facility] instead of [facility]. Ambulance has been booked for a 4:30 roller picker to go to [facility]. Original Note: Patient has accepted a bed odder from [facility] and will dc there today at 3:30 PM, via [facility]. Per PA, Patient is medically cleared for dc to SNF/STR today. Patient will inform her family herself, regarding the dc plan she has chosen.
[2025-03-28 15:54] VITALS: BP 118/91; PULSE 84; RESP 17; TEMP 36.3; O2SAT 97
--- NOTE | 2025-04-03 11:38 | MHC.HEMONC ---
Addendum entered by Rosanna Brower RN 04/03/25 11:57: F/U with Dr Watts for 04/15 given to pt dtrKatherin. Patient is now at [facility]. Original Note: I replied to [facility] [employer] correspondance that Revlimid is D/Cd per Dr Watts.
== END 2025-03-28 16:58 | disposition skilled nursing facility (03) | DRG 309 ==
LOC: HO.ED 03-19 00:45 → HO.EDOVER 03-19 02:31 → HO.S3 03-19 10:45 → HO.IMC 03-23 20:30
PROVIDERS: Internal Medicine Critical Care Medicine; Nurse Practitioner Acute Care; Admitting Provider Physician Assistant; Emergency Provider Internal Medicine; PCP Internal Medicine; Visit Provider Physician Assistant Medical
DX: I48.19 Other persistent atrial fibrillation (principal); C79.51 Secondary malignant neoplasm of bone; C90.00 Multiple myeloma not having achieved remission; E22.2 Syndrome of inappropriate secretion of antidiuretic hormone; M84.58XA Pathological fracture in neoplastic disease, other specified site, initial encounter for fracture; E78.5 Hyperlipidemia, unspecified; I10 Essential (primary) hypertension; G62.9 Polyneuropathy, unspecified; G89.3 Neoplasm related pain (acute) (chronic); M48.061 Spinal stenosis, lumbar region without neurogenic claudication; I95.9 Hypotension, unspecified; M21.371 Foot drop, right foot; K59.00 Constipation, unspecified; Z79.01 Long term (current) use of anticoagulants; Z79.899 Other long term (current) drug therapy
CPT/HCPCS: 36415; 72158; 80048; 81001; 82436; 83605; 83735; 83930; 83935; 84133; 84295; 84300; 84439; 84443; 85027; 87040; 87086; 97116; 97162; 97165; 99204; 99285; A9585; J0616; J0696; J1100; J1160; J1163; J1171; J2250; J2270; J2405; J7120

== ENCOUNTER → 2025-03-18 17:21 | Outpatient (BNV) | payer MEDICARE, OTHER, SELFPAY | PROVIDERS: Emergency Provider Internal Medicine; PCP Internal Medicine; Visit Provider Radiology Diagnostic Radiology | DX: M51.369 Other intervertebral disc degeneration, lumbar region without mention of lumbar back pain or lower extremity pain (principal); M48.061 Spinal stenosis, lumbar region without neurogenic claudication | CPT/HCPCS: 72158 ==

== ENCOUNTER → 2025-03-18 23:56 | Outpatient (BNV) | payer MEDICARE, OTHER, SELFPAY | PROVIDERS: Admitting Provider Physician Assistant; Emergency Provider Internal Medicine; PCP Internal Medicine; Visit Provider Nurse Practitioner Family | DX: E87.1 Hypo-osmolality and hyponatremia (principal) | CPT/HCPCS: 99221; 99231 ==

== ENCOUNTER → 2025-03-18 23:56 | Outpatient (BNV) | payer MEDICARE, OTHER, SELFPAY | PROVIDERS: Admitting Provider Physician Assistant; Emergency Provider Internal Medicine; PCP Internal Medicine; Visit Provider Physician Assistant Medical | DX: I48.0 Paroxysmal atrial fibrillation (principal); C90.00 Multiple myeloma not having achieved remission; M54.50 Low back pain, unspecified | CPT/HCPCS: 99223; 99232; 99233 ==

== ENCOUNTER → 2025-03-18 23:56 | Outpatient (BNV) | payer MEDICARE, OTHER, SELFPAY | PROVIDERS: Admitting Provider Physician Assistant; Emergency Provider Internal Medicine; PCP Internal Medicine; Visit Provider Internal Medicine Cardiovascular Disease | DX: I10 Essential (primary) hypertension (principal); I48.91 Unspecified atrial fibrillation | CPT/HCPCS: 99232; 99233 ==

== ENCOUNTER → 2025-03-18 23:56 | Outpatient (BNV) | payer MEDICARE, OTHER, SELFPAY | PROVIDERS: Admitting Provider Physician Assistant; Emergency Provider Internal Medicine; PCP Internal Medicine; Visit Provider Internal Medicine | DX: C90.00 Multiple myeloma not having achieved remission (principal) | CPT/HCPCS: 99232 ==

== ENCOUNTER → 2025-03-18 23:56 | Outpatient (BNV) | payer MEDICARE, OTHER, SELFPAY | PROVIDERS: Admitting Provider Physician Assistant; Emergency Provider Internal Medicine; PCP Internal Medicine; Visit Provider Psychiatry & Neurology Neurology | DX: M48.061 Spinal stenosis, lumbar region without neurogenic claudication (principal) | CPT/HCPCS: 99222 ==

== ENCOUNTER → 2025-03-18 23:56 | Outpatient (BNV) | payer MEDICARE, OTHER, SELFPAY | PROVIDERS: Admitting Provider Physician Assistant; Emergency Provider Internal Medicine; PCP Internal Medicine; Visit Provider Internal Medicine Critical Care Medicine | DX: C90.00 Multiple myeloma not having achieved remission (principal); E87.1 Hypo-osmolality and hyponatremia | CPT/HCPCS: 99232 ==

== ENCOUNTER → 2025-05-10 23:59 | Outpatient (BNV) | payer MEDICARE, OTHER, SELFPAY | PROVIDERS: PCP Internal Medicine; Visit Provider Internal Medicine | DX: N39.0 Urinary tract infection, site not specified (principal); M21.371 Foot drop, right foot | CPT/HCPCS: G0180 ==

== ENCOUNTER 2025-05-14 14:30 | Outpatient (AMB) | payer MEDICARE, OTHER, SELFPAY ==
[2025-05-14 14:40] VITALS: BP 100/66; PULSE 71; RESP 16; TEMP 36.4; O2SAT 98; BMI 23.6
--- NOTE | 2025-05-14 14:40 | MHC.PC.OV ---
Vital Signs 05/14/25 14:40 Height 5 ft 6 in Weight 146 lb BMI 23.6 BP 100/66 Blood Pressure Location Lt brachial Position Sitting Respiration 16 Pulse 71 Pulse Source Pulse Oximeter Temp 97.6 F Temp Source Oral Pulse Oximetry (%) 98 Oxygen Delivery Method Room Air Intake Visit Reasons: Discharge Follow up Intake Note: Pt is here today for a discharge follow up visit. Allergies hydralazine Allergy (Verified 05/14/25 14:41) Unknown hydrochlorothiazide Adverse Reaction (Intermediate, Verified 05/14/25 14:41) Palpitations amlodipine Adverse Reaction (Verified 05/14/25 14:41) DIZZINESS sotalol Adverse Reaction (Verified 05/14/25 14:41) Palpitations Medication List - Last Reconciled 05/14/25 by Krista Allen MD apixaban 5 mg PO BID atorvastatin (Lipitor) 10 mg PO DAILY diltiazem HCl CD 240 mg See Protocol PO DAILY docusate sodium 100 mg PO BID hydrocortisone 2.5% 1 appl topical BID PRN hydromorphone 2 mg PO Q4H PRN lidocaine 5% (Lidoderm) 1 patch topical DAILY PRN lorazepam 0.5 mg PO BEDTIME PRN metoprolol succinate ER 50 mg PO BID omeprazole 20 mg PO DAILY@0630 sennosides (senna) 8.6 mg PO BEDTIME PRN simethicone 80 mg PO TID PRN sodium chloride 1,000 mg PO TID Tobacco use date assessed: 05/14/25 Fall risk assessment: 1 Fall in past year Last assessed Fall Risk: 05/14/25 Dental Screening Dental Screen Date: 05/14/25 Did you have a dental visit in the last 12 months?: Yes Did you have a dental problem in the last 6 months where you did not have access to dental care?: No Was dental information given to patient?: Patient has dentist HPI Discharge Follow up HPI Details Patient presents for the follow-up of hospitalization followed by inpatient SNF stay for worsening lower extremity weakness deconditioning AFib with rapid ventricular rate and hyponatremia. Patient will be starting home physical therapy. She is ambulating with a walker home but using wheelchair when outside. She continues to complain of bilateral lower extremity weakness and lower extremity swelling but lower back pain improved. Patient was started sodium chloride tablets for hyponatremia, 3 a day recently decreased to 1 every other day. She has been following fluid restriction recommendations up to 1 L a day. Patient denies chest pain palpitations shortness or breath. Heart rate has been controlled on diltiazem with metoprolol and patient is anticoagulated on Eliquis. She follows up with Hematology for multiple myeloma. [facility] Medical History (Updated 05/14/25 @ 15:55 by Krista Allen MD) Hyponatremia DM type 2 (diabetes mellitus, type 2) Spinal stenosis 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 Lesion of bone of lumbosacral spine Multiple myeloma Lower back pain Atrial fibrillation with RVR Impacted cerumen of both ears Dysplastic nevus Vitamin D deficiency Annual physical exam Palpitations Leukoplakia of tongue Hyperlipidemia Peripheral neuropathy Dysuria Surgical History H/O arthroscopy of knee H/O varicose vein ligation H/O: hysterectomy H/O mastectomy H/O colonoscopy Family History Father No problems noted. Mother No problems noted. Son Diabetes Social History Household Members: None Household Members Other:: lives alone, independent, daughter lives close Housing: House Do you presently have visiting nurse or other home services: No Alcohol intake: former Patient Tobacco Use Status: Never used Tobacco e-Cigarette/Vaping Use: Never Used Second Hand Smoke Exposure: No service: No Current occupational status: retired Gender identity: Female Cognitive needs: No Hearing needs: No Vision needs: Yes Questionnaire Thrive Questionnaire Date Thrive assessed: 10/21/24 I am a: Patient What is your living situation today?: I have a steady place to live Within the past 12 months, did the food you bought not last and you didn't have the money to get more?: Never true Within the past 12 months, did you worry whether your food would run out before you got money to buy more?: Never true Do you have trouble paying for medicines?: No Do you have trouble getting transportation to medical appointments?: No Do you have trouble paying your heating and electricity bill?: No Do you have trouble taking care of your child, family member or friend?: No Do you have trouble with day-to-day activities such as bathing, preparing meals, shopping, managing finances, etc.?: No Are you currently unemployed and looking for a job?: No Are you interested in more education?: No Please select the resources that you would like help with: None Currently or been in a relationship where the following occur: No concerns reported THRIVE Score: 0 BRADY-7 AMB Questionnaire BRADY-7 Date BRADY - 7 assessed: 10/21/24 Source: Developed by Drs. Jae Sandoval, Yolanda Ennis, Darnell Matias and colleagues, with an educational chu from [employer]. Review of Systems Const All systems reviewed & are unremarkable except as noted in HPI and below Eyes Reports no additional complaints ENT Reports no additional complaints Card Reports no additional complaints Resp Reports no additional complaints GI Reports no additional complaints Reports no additional complaints Physical exam (Primary Care) Vital Signs: Last Vital Signs Temp 97.6 F 05/14/25 14:40 Pulse 71 05/14/25 14:40 Resp 16 05/14/25 14:40 BP 100/66 05/14/25 14:40 Pulse Ox 98 05/14/25 14:40 Oxygen Delivery Method Room Air 05/14/25 14:40 BMI result Body Mass Index 23.6 Tobacco/Smoking Status: Tobacco use Status Tobacco use date assessed 05/14/25 05/14/25 14:42 Patient Tobacco Use Status Never used Tobacco 05/14/25 14:40 e-Cigarette/Vaping Use Never Used 05/14/25 14:40 Thrive Assessment: Date of Thrive Assessment Date Thrive assessed 10/21/24 05/14/25 14:40 Currently or been in a relationship where the following occur: No concerns reported Const General: no acute distress HENMT Head: Yes normal to inspection Face and sinus: Yes normal facial exam Eyes General: appearance normal, both eyes and all related structures Resp Effort & Inspection: normal respiratory effort Auscultation: crackles bilateral and diminished lung sounds Cardio Rhythm: abnormal rhythm irregularly irregular Heart sounds: S1 normal heart sound present and S2 normal heart sound present GI Inspection: Yes normal to inspection Palpation (GI): Soft to palpation Percussion: Yes normal to percussion Extrem Other: 3+ pitting edema bilaterally Results AMB Random Glucose (hemocue) AMB Random Glucose (hemocue) 178 mg/dL Last Edit by Benja Kent CMA on 05/14/25 15:25 AMB Hemoglobin A1c AMB Hemoglobin A1c 7.4 % Last Edit by Benja Kent CMA on 05/14/25 15:38 Results Reviewed Results Reviewed: Laboratory Last Values Random Glu (Clinic) 178 mg/dL 05/14/25 15:24 Hgb A1c (Clinic) 7.4 % (4.0-6.0) H 05/14/25 15:24 Coding Level of Care Code Est Pt Level 4 (10329) Complex EM visit Add On G2211 Diagnoses Paroxysmal atrial fibrillation I48.0 Hyponatremia E87.1 Multiple myeloma C90.00 DM type 2 (diabetes mellitus, type 2) E11.9 Assessment & Plan Assessment & Plan (1) Paroxysmal atrial fibrillation: Code(s): I48.0 - Paroxysmal atrial fibrillation Category: Medical Plan: EKG showed AFib with right bundle-branch block pattern with a heart rate of 100, patient will continue metoprolol and diltiazem and Eliquis for anticoagulation. She is established with the Cardiology. (2) Hyponatremia: Comment: SIADH and hyperglycemia Code(s): E87.1 - Hypo-osmolality and hyponatremia Category: Medical Plan: Patient has been taking sodium tablets every other day, she will have a has a panel checked today. Furosemide 20 mg daily will be started follow extremity edema fluid overload patient will follow-up in 3 weeks (3) Multiple myeloma: Comment: IgG kappa monoclonal band on immunofixation 11/2024 Code(s): C90.00 - Multiple myeloma not having achieved remission Category: Medical Plan: Follow-up with oncology (4) DM type 2 (diabetes mellitus, type 2): Comment: A1c was 7.4 04/2025 Code(s): E11.9 - Type 2 diabetes mellitus without complications Category: Medical Plan: A1c is 7.4 and random glucose 178 today, most likely secondary to high dose of steroids given in the hospital. ADA diet monitoring fasting blood glucose discussed with the patient. patient will follow-up in 3 weeks Orders: Orders AMB Random Glucose (hemocue) Today Z13.9 - Encounter for screening, unspecified Comprehensive Met. Panel Today C90.00 - Multiple myeloma not having achieved remission, E78.5 - Hyperlipidemia, unspecified, E87.1 - Hypo-osmolality and hyponatremia, I48.0 - Paroxysmal atrial fibrillation, R73.9 - Hyperglycemia, unspecified IRON PROFILE Today C90.00 - Multiple myeloma not having achieved remission, E78.5 - Hyperlipidemia, unspecified, E87.1 - Hypo-osmolality and hyponatremia, I48.0 - Paroxysmal atrial fibrillation, R73.9 - Hyperglycemia, unspecified AMB EKG-In Office Today Z13.6 - Encounter for screening for cardiovascular disorders TSH reflex Free T4 Today E11.9 - Type 2 diabetes mellitus without complications AMB Hemoglobin A1c Today Z13.9 - Encounter for screening, unspecified Complete Blood Count Auto Diff Today C90.00 - Multiple myeloma not having achieved remission, E78.5 - Hyperlipidemia, unspecified, E87.1 - Hypo-osmolality and hyponatremia, I48.0 - Paroxysmal atrial fibrillation, R73.9 - Hyperglycemia, unspecified Medications: New hydrocortisone 2.5% (Proctosol HC) 1 appl MN Q12H PRN 30 grams 0RF hemorrhoids furosemide (Lasix) 20 mg PO DAILY 30 tabs 2RF Changed From sodium chloride 1,000 mg PO TID 120 tabs 0RF To sodium chloride 1,000 mg PO .qod 120 tabs 0RF Refilled diltiazem HCl CD 240 mg PO DAILY 90 caps 3RF Discontinued lorazepam Discontinued Reason: Doctor's Order 0.5 mg PO BEDTIME PRN 30 tabs 0RF Sleep/Restlessness hydromorphone Partial Fill upon patient request. Discontinued Reason: Doctor's Order 2 mg PO Q4H PRN 30 tabs 0RF Pain (Scale Score 7-10)
--- OUTSIDE RECORDS SUMMARY | 2025-05-14 15:11 | XMS_ITS | Encounter Summary ---
Author Organization [facility] Address [address] [place] [address] Care Team Providers Care Component Engineer Name Role Phone Mario Berrios MD Primary Care Provider [phone] Encounter Details Date Type Department Care Team (Late st Contact Info) Description 04/15/2025 Lab Requisition [facility] - Main Lab [address] [place] [address] Mario Berrios MD [address] [place] [address] [phone] Essential (primary) hypertension Social History Tobacco Use Types Packs/Day Years Used Date Smoking Tobacco: Never Assessed Comments Unknown Sex and Gender Information Value Date Recorded Sex Assigned at Not on file Legal Sex Female 11:01 AM EDT Gender Identity Not on file Sexual Orientation Not on file documented as of this encounter Plan of Treatment Not on file documented as of this encounter Procedures Procedure Name Priority Date/Time Associated Diagnosis Comments COMPLETE BLOOD COUNT Routine 04/16/2025 6:36 AM EDT Essential (primary) hypertension BASIC METABOLIC PANEL Routine 04/16/2025 6:36 AM EDT Essential (primary) hypertension documented in this encounter Results * (ABNORMAL) Complete blood count (04/16/2025 6:36 AM EDT) WBC 8.9 4.8 - 10.8 K/[facility] LAB HEMETOLOGY METHOD 04/16/2025 9:51 AM EDT [facility] RBC 4.30 3.80 - 4.80 M/[facility] LAB HEMETOLOGY METHOD 04/16/2025 9:51 AM EDT [facility] Hemoglobin 13.5 11.5 - 16.0 g/dL LAB HEMETOLOGY METHOD 04/16/2025 9:51 AM EDT [facility] Hematocrit 40.4 35.0 - 47.0 % LAB HEMETOLOGY METHOD 04/16/2025 9:51 AM EDT [facility] MCV 93.5 79.0 - 98.0 FL LAB HEMETOLOGY METHOD 04/16/2025 9:51 AM EDT [facility] MCH 31.3 27.0 - 32.0 pcg LAB HEMETOLOGY METHOD 04/16/2025 9:51 AM EDT [facility] MCHC 33.4 32.0 - 37.0 g/dL LAB H[facility] RDW 16.6(H) 11.0 - 15.0 % LAB HEMETOLOGY METHOD 04/16/2025 9:51 AM EDT [facility] Platelets 159 130 - 400 K/mcL LAB HEMETOLOGY METHOD 04/16/2025 9:51 AM EDT [facility] MPV 11.7(H) 7.0 - 11.0 FL LAB HEMETOLOGY METHOD 04/16/2025 9:51 AM EDT [facility] NRBC 0.0 <1.0 % LAB HEMETOLOGY METHOD 04/16/2025 9:51 AM EDT [facility] NRBC Absolute 0.00 <0.10 K/mcL LAB HEMETOLOGY METHOD 04/16/2025 9:51 AM EDT [facility] Blood Venous blood specimen / Unknown Venipuncture / Unknown 04/16/2025 6:36 AM EDT 04/16/2025 9:27 AM EDT us Mario Berrios MD LAB BLOOD ORDERABLES Final Resu lt [facility] [address] [place] [address], * (ABNORMAL) Basic metabolic panel (04/16/2025 6:36 AM EDT) Sodium 134 133 - 145 mmol/L LAB CHEMISTRY METHOD 04/16/2025 10:16 AM [facility] Potassium 3.8 3.5 - 5.5 mmol/L LAB CHEMISTRY METHOD 04/16/2025 10:16 AM T [facility] Chloride 98 96 - 110 mmol/L LAB CHEMISTRY METHOD 04/16/2025 10:16 AM [facility] CO2 26 21 - 32 mmol/L LAB CHEMISTRY METHOD 04/16/2025 10:16 AM [facility] Anion Gap 10 3 - 11 LAB CHEMISTRY METHOD 04/16/2025 10:16 AM [facility] Glucose 129(H) 70 - 100 mg/dL LAB CHEMISTRY METHOD 04/16/2025 10:16 AM [facility] BUN 15 5 - 25 mg/dL LAB CHEMISTRY METHOD 04/16/2025 10:16 AM [facility] Creatinine 0.65 0.50 - 1.10 mg/dL LAB CHEMISTRY METHOD 04/16/2025 10:16 AM [facility] eGFR 86 >=60 mL/min/1. 73m2 LAB CHEMISTRY METHOD 04/16/2025 10:16 AM [facility] Comment:Calculation based on the Chronic Kidney Disease Epidemiology Collaboration (CKD-EPI) equation refit without adjustment for race. BUN/Creatinine Ratio 23.1 LAB CHEMISTRY METHOD 04/16/2025 10:16 AM [facility] Calcium 8.5 8.5 - 10.5 mg/dL LAB CHEMISTRY METHOD 04/16/2025 10:16 AM [facility] Blood Venous blood specimen / Unknown Venipuncture / Unknown 04/16/2025 6:36 AM EDT 04/16/2025 9:26 AM EDT Mario Berrios MD LAB BLOOD ORDERABLES Final Resu lt [facility] [address] [place] [address], documented in this encounter Visit Diagnoses Diagnosis Essential (primary) hypertension Unspecified essential hypertension documented in this encounter Care Teams Component Engineer Relationship Specialty Start Date End Date Mario Berrios MD [address] [place] [address] PCP - General Internal Medicine 04/04/25 documented as of this encounter
--- OUTSIDE RECORDS SUMMARY | 2025-05-14 15:11 | XMS_ITS | Encounter Summary ---
Author Organization [facility] Address [address] [place] [address] Care Team Providers Care Police Liaison Officer Name Role Phone Mario Berrios MD Primary Care Provider [phone] Encounter Details Date Type Department Care Team (Late st Contact Info) Description 04/22/2025 Lab Requisition [facility] - Main Lab [address] [facility] [place] [address] Mario Berrios MD [address] [place] [address] [phone] Essential (primary) hypertension Social History Tobacco Use [...] Associated Diagnosis Comments COMPLETE BLOOD COUNT Routine 04/23/2025 5:52 AM EDT Essential (primary) hypertension BASIC METABOLIC PANEL Routine 04/23/2025 5:52 AM EDT Essential (primary) hypertension documented in this encounter Results * (ABNORMAL) Basic metabolic panel (04/23/2025 5:52 AM EDT) Sodium 133 133 - 145 mmol/L LAB CHEMISTRY METHOD 04/23/2025 10:52 AM EDT [facility] Potassium 3.7 3.5 - 5.5 mmol/L LAB CHEMISTRY METHOD 04/23/2025 10:52 AM EDT [facility] Chloride 95(L) 96 - 110 mmol/L LAB CHEMISTRY METHOD 04/23/2025 10:52 AM [facility] CO2 33(H) 21 - 32 mmol/L LAB CHEMISTRY METHOD 04/23/2025 10:52 AM [facility] Anion Gap 5 3 - 11 LAB CHEMISTRY METHOD 04/23/2025 10:52 AM [facility] Glucose 88 70 - 100 mg/dL LAB CHEMISTRY METHOD 04/23/2025 10:52 AM [facility] BUN 9 5 - 25 mg/dL LAB CHEMISTRY METHOD 04/23/2025 10:52 AM [facility] Creatinine 0.60 0.50 - 1.10 mg/dL LAB CHEMISTRY METHOD 04/23/2025 10:52 AM [facility] eGFR 88 >=60 mL/min/1. 73m2 LAB CHEMISTRY METHOD 04/23/2025 10:52 AM [facility] Comment:Calculation based on the Chronic Kidney Disease Epidemiology Collaboration (CKD-EPI) equation refit without adjustment for race. BUN/Creatinine Ratio 15.0 LAB CHEMISTRY METHOD 04/23/2025 10:52 AM [facility] Calcium 7.4(L) 8.5 - 10.5 mg/dL LAB CHEMISTRY METHOD 04/23/2025 10:52 AM [facility] Blood Venous blood specimen / Unknown Venipuncture / Unknown 04/23/2025 5:52 AM EDT 04/23/2025 9:52 AM EDT us Mario Berrios MD LAB BLOOD ORDERABLES Final Resu lt [facility] [address] [place] [address], * (ABNORMAL) Complete blood count (04/23/2025 5:52 AM EDT) WBC 6.0 4.8 - 10.8 K/mcL LAB HEMETOLOGY METHOD 04/23/2025 10:13 AM [facility] RBC 4.00 3.80 - 4.80 M/mcL LAB HEMETOLOGY METHOD 04/23/2025 10:13 AM [facility] Hemoglobin 12.6 11.5 - 16.0 g/dL LAB HEMETOLOGY METHOD 04/23/2025 10:13 AM [facility] Hematocrit 37.6 35.0 - 47.0 % LAB HEMETOLOGY METHOD 04/23/2025 10:13 AM [facility] MCV 93.5 79.0 - 98.0 FL LAB HEMETOLOGY METHOD 04/23/2025 10:13 AM [facility] MCH 31.3 27.0 - 32.0 pcg LAB HEMETOLOGY METHOD 04/23/2025 10:13 AM [facility] MCHC 33.5 32.0 - 37.0 g/dL LAB HEMETOLOGY METHOD 04/23/2025 10:13 AM [facility] RDW 16.2(H) 11.0 - 15.0 % LAB HEMETOLOGY METHOD 04/23/2025 10:13 AM [facility] Platelets 157 130 - 400 K/mcL LAB HEMETOLOGY METHOD 04/23/2025 10:13 AM [facility] MPV 11.1(H) 7.0 - 11.0 FL LAB HEMETOLOGY METHOD 04/23/2025 10:13 AM [facility] NRBC 0.0 <1.0 % LAB HEMETOLOGY METHOD 04/23/2025 10:13 AM [facility] NRBC Absolute 0.00 <0.10 K/mcL LAB HEMETOLOGY METHOD 04/23/2025 10:13 AM [facility] Blood Venous blood specimen / Unknown Venipuncture / Unknown 04/23/2025 5:52 AM EDT 04/23/2025 9:50 AM EDT Mario Berrios MD LAB BLOOD ORDERABLES Final Resu lt [facility] [address] [place] [address], documented in this encounter Visit Diagnoses Diagnosis Essential (primary) hypertension Unspecified essential hypertension documented in this encounter Care Teams Police Liaison Officer Relationship Specialty Start Date End Date Mario Berrios MD [address] [place] [address] PCP - General Internal Medicine 04/04/25 documented as of this encounter
--- OUTSIDE RECORDS SUMMARY | 2025-05-14 15:11 | XMS_ITS | Encounter Summary ---
Author Organization [facility] Address [address] [place] [address] Care Team Providers Care Long Chain Beamer Name Role Phone Mario Berrios MD Primary Care Provider [phone] Encounter Details Date Type Department Care Team (Late st Contact Info) Description 04/12/2025 Lab Requisition [facility] - Main Lab [address] [facility] [place] [address] Mario Berrios MD [address] [place] [address] [phone] Essential (primary) hypertension Social History Tobacco Use [...] Associated Diagnosis Comments COMPLETE BLOOD COUNT Routine 04/13/2025 8:37 AM EDT Essential (primary) hypertension COMPREHENSIVE METABOLIC PANEL Routine 04/13/2025 8:37 AM EDT Essential (primary) hypertension documented in this encounter Results * (ABNORMAL) Complete blood count (04/13/2025 8:37 AM EDT) WBC 8.1 4.8 - 10.8 K/[facility] LAB HEMETOLOGY METHOD 04/13/2025 11:31 AM EDT [facility] RBC 4.00 3.80 - 4.80 M/[facility] LAB HEMETOLOGY METHOD 04/13/2025 11:31 AM EDT [facility] Hemoglobin 12.5 11.5 - 16.0 g/dL LAB HEMETOLOGY METHOD 04/13/2025 11:31 AM [facility] Hematocrit 37.3 35.0 - 47.0 % LAB HEMETOLOGY METHOD 04/13/2025 11:31 AM [facility] MCV 92.8 79.0 - 98.0 FL LAB HEMETOLOGY METHOD [facility] MCH 31.1 27.0 - 32.0 pcg LAB HEMETOLOGY METHOD 04/13/2025 11:31 AM [facility] MCHC 33.5 32.0 - 37.0 g/dL LAB HEMETOLOGY METHOD 04/13/2025 11:31 AM [facility] RDW 16.3(H) 11.0 - 15.0 % LAB HEMETOLOGY METHOD 04/13/2025 11:31 AM [facility] Platelets 122(L) 130 - 400 K/mcL LAB HEMETOLOGY METHOD 04/13/2025 11:31 AM [facility] MPV 12.1(H) 7.0 - 11.0 FL LAB HEMETOLOGY METHOD 04/13/2025 11:31 AM [facility] NRBC 0.0 <1.0 % LAB HEMETOLOGY METHOD 04/13/2025 11:31 AM [facility] NRBC Absolute 0.00 <0.10 K/mcL LAB HEMETOLOGY METHOD 04/13/2025 11:31 AM [facility] Blood Venous blood specimen / Unknown Venipuncture / Unknown 04/13/2025 8:37 AM EDT 04/13/2025 10:16 AM EDT us Mario Berrios MD LAB BLOOD ORDERABLES Final Resu lt [facility] [address] [place] [address], [place] [phone] * (ABNORMAL) Comprehensive metabolic panel (04/13/2025 8:37 AM EDT) Sodium 133 133 - 145 mmol/L LAB CHEMISTRY METHOD 04/13/2025 11:42 AM [facility] Potassium 3.6 3.5 - 5.5 mmol/L LAB CHEMISTRY METHOD 04/13/2025 11:42 AM [facility] Chloride 98 96 - 110 mmol/L LAB CHEMISTRY METHOD 04/13/2025 11:42 AM [facility] CO2 26 21 - 32 mmol/L LAB CHEMISTRY METHOD 04/13/2025 11:42 AM [facility] Anion Gap 9 3 - 11 LAB CHEMISTRY METHOD 04/13/2025 11:42 AM [facility] Glucose 122(H) 70 - 100 mg/dL LAB CHEMISTRY METHOD 04/13/2025 11:42 AM [facility] BUN 16 5 - 25 mg/dL LAB CHEMISTRY METHOD 04/13/2025 11:42 AM [facility] Creatinine 0.59 0.50 - 1.10 mg/dL LAB CHEMISTRY METHOD 04/13/2025 11:42 AM [facility] eGFR 88 >=60 mL/min/1. 73m2 LAB CHEMISTRY METHOD 04/13/2025 11:42 AM [facility] Comment:Calculation based on the Chronic Kidney Disease Epidemiology Collaboration (CKD-EPI) equation refit without adjustment for race. BUN/Creatinine Ratio 27.1 LAB CHEMISTRY METHOD 04/13/2025 11:42 AM [facility] Calcium 8.3(L) 8.5 - 10.5 mg/dL LAB CHEMISTRY METHOD 04/13/2025 11:42 AM [facility] AST (SGOT) 38 10 - 42 unit/L LAB CHEMISTRY METHOD 04/13/2025 11:42 AM [facility] ALT (SGPT) 110(H) 10 - 60 unit/L LAB CHEMISTRY METHOD 04/13/2025 11:42 AM [facility] Alkaline Phosphatase 170(H) 42 - 121 unit/L LAB CHEMISTRY METHOD 04/13/2025 11:42 AM T [facility] Total Protein 5.3(L) 6.0 - 8.0 g/dL LAB CHEMISTRY METHOD 04/13/2025 11:42 AM [facility] Albumin 2.8(L) 3.2 - 5.0 g/dL LAB CHEMISTRY METHOD 04/13/2025 11:42 AM [facility] Total Bilirubin 1.0 0.0 - 1.4 mg/dL LAB CHEMISTRY METHOD 04/13/2025 11:42 AM [facility] Blood Venous blood specimen / Unknown Venipuncture / Unknown 04/13/2025 8:37 AM EDT 04/13/2025 10:18 AM EDT Mario Berrios MD LAB BLOOD ORDERABLES Final Resu lt [facility] [address] [place] [address], documented in this encounter Visit Diagnoses Diagnosis Essential (primary) hypertension Unspecified essential hypertension documented in this encounter Care Teams Long Chain Beamer Relationship Specialty Start Date End Date Mario Berrios MD [address] [place] [phone] PCP - General Internal Medicine 04/04/25 documented as of this encounter
--- OUTSIDE RECORDS SUMMARY | 2025-05-14 15:11 | XMS_ITS | Encounter Summary ---
Author Organization [facility] Address [address] [place] [address] Care Team Providers Care Service Delivery Manager Name Role Phone Mario Berrios MD Primary Care Provider Encounter Details Date Type Department Care Team (Late st Contact Info) Description 04/29/[address] [facility] - Main Lab [address] [facility] [place] [address] Mario Berrios MD [address] [place] [phone] Hypo-osmolality and hyponatremia Social History Tobacco Use Types Packs/Day Years [...] Procedure Name Priority Date/Time Associated Diagnosis Comments COMPREHENSIVE METABOLIC PANEL Routine 04/29/2025 6:15 AM EDT Hypo-osmolality and hyponatremia documented in this encounter Results * (ABNORMAL) Comprehensive metabolic panel (04/29/2025 6:15 AM EDT) Sodium 130(L) 133 - 145 mmol/L LAB CHEMISTRY METHOD 04/29/2025 3:38 PM EDT [facility] Potassium 4.3 3.5 - 5.5 mmol/L LAB CHEMISTRY METHOD 04/29/2025 3:38 PM EDT [facility] Chloride 93(L) 96 - 110 mmol/L LAB CHEMISTRY METHOD 04/29/2025 3:38 PM EDT [facility] CO2 31 21 - 32 mmol/L LAB CHEMISTRY METHOD 04/29/2025 3:38 PM [facility] Anion Gap 6 3 - 11 LAB CHEMISTRY METHOD 04/29/2025 3:38 PM [facility] Glucose 90 70 - 100 mg/dL LAB CHEMISTRY METHOD 04/29/2025 3:38 PM [facility] BUN 10 5 - 25 mg/dL LAB CHEMISTRY METHOD 04/29/2025 3:38 PM [facility] Creatinine 0.59 0.50 - 1.10 mg/dL LAB CHEMISTRY METHOD 04/29/2025 3:38 PM [facility] eGFR 88 >=60 mL/min/1. 73m2 LAB CHEMISTRY METHOD 04/29/2025 3:38 PM [facility] Comment:Calculation based on the Chronic Kidney Disease Epidemiology Collaboration (CKD-EPI) equation refit without adjustment for race. BUN/Creatinine Ratio 16.9 LAB CHEMISTRY METHOD 04/29/2025 3:38 PM [facility] Calcium 8.3(L) 8.5 - 10.5 mg/dL LAB CHEMISTRY METHOD 04/29/2025 3:38 PM [facility] AST (SGOT) 16 10 - 42 unit/L LAB CHEMISTRY METHOD 04/29/2025 3:38 PM [facility] ALT (SGPT) 34 10 - 60 unit/L LAB CHEMISTRY METHOD 04/29/2025 3:38 PM [facility] Alkaline Phosphatase 131(H) 42 - 121 unit/L LAB CHEMISTRY METHOD 04/29/2025 3:38 PM [facility] Total Protein 5.2(L) 6.0 - 8.0 g/dL LAB CHEMISTRY METHOD 04/29/2025 3:38 PM [facility] Albumin 2.7(L) 3.2 - 5.0 g/dL LAB CHEMISTRY METHOD 04/29/2025 3:38 PM EDT [facility] Total Bilirubin 1.2 0.0 - 1.4 mg/dL LAB CHEMISTRY METHOD 04/29/2025 3:38 PM EDT [facility] Blood Venous blood specimen / Unknown Venipuncture / Unknown 04/29/2025 6:15 AM EDT 04/29/2025 11:49 AM EDT us Mario Berrios MD LAB BLOOD ORDERABLES Final Resu lt [facility] [address] [place] [address], documented in this encounter Visit Diagnoses Diagnosis Hypo-osmolality and hyponatremia documented in this encounter Care Teams Service Delivery Manager Relationship Specialty Start Date End Date Mario Berrios MD [address] [place] [address] PCP - General Internal Medicine 04/04/25 documented as of this encounter
--- OUTSIDE RECORDS SUMMARY | 2025-05-14 15:11 | XMS_ITS | Encounter Summary ---
Author Organization [facility] Address [address] [place] [address] Care Team Providers Care Ax Survey Worker Name Role Phone Mario Berrios MD Primary Care Provider [phone] Encounter Details Date Type Department Care Team (Late st Contact Info) Description 04/08/2025 Lab Requisition [facility] - Main Lab 299 [facility] [email or web address] [address] Mario Berrios MD [address] [place] [phone] Essential (primary) hypertension Social History Tobacco Use [...] Associated Diagnosis Comments COMPLETE BLOOD COUNT Routine 04/09/2025 5:47 AM EDT Essential (primary) hypertension BASIC METABOLIC PANEL Routine 04/09/2025 5:47 AM EDT Essential (primary) hypertension documented in this encounter Results * (ABNORMAL) Complete blood count (04/09/2025 5:47 AM EDT) WBC 10.1 4.8 - 10.8 K/[facility] LAB HEMETOLOGY METHOD 04/09/2025 11:39 AM EDT [facility] RBC 3.90 3.80 - 4.80 M/[facility] LAB HEMETOLOGY METHOD 04/09/2025 11:39 AM EDT [facility] Hemoglobin 11.9 11.5 - 16.0 g/dL LAB HEMETOLOGY METHOD 04/09/2025 11:39 AM [facility] Hematocrit 37.5 35.0 - 47.0 % LAB HEMETOLOGY METHOD 04/09/2025 11:39 AM [facility] MCV 95.4 79.0 - 98.0 FL LAB HEMETOLOGY METHOD 04/09/2025 11:39 AM [facility] MCH 30.3 27.0 - 32.0 pcg LAB HEMETOLOGY METHOD 04/09/2025 11:39 AM [facility] MCHC 31.7(L) 32.0 - 37.0 g/dL LAB HEMETOLOGY METHOD 04/09/2025 11:39 AM [facility] RDW 15.8(H) 11.0 - 15.0 % LAB HEMETOLOGY METHOD 04/09/2025 11:39 AM [facility] Platelets 127(L) 130 - 400 K/mcL LAB HEMETOLOGY METHOD 04/09/2025 11:39 AM [facility] MPV 11.8(H) 7.0 - 11.0 FL LAB HEMETOLOGY METHOD 04/09/2025 11:39 AM [facility] NRBC 0.0 <1.0 % LAB HEMETOLOGY METHOD 04/09/2025 11:39 AM [facility] NRBC Absolute 0.00 <0.10 K/mcL LAB HEMETOLOGY METHOD 04/09/2025 11:39 AM [facility] Blood Venous blood specimen / Unknown Venipuncture / Unknown 04/09/2025 5:47 AM EDT 04/09/2025 11:23 AM EDT Mario Berrios MD LAB BLOOD ORDERABLES Final Resu lt [facility] [address] [place] [address], [place] [phone] * (ABNORMAL) Basic metabolic panel (04/09/2025 5:47 AM EDT) Sodium 133 133 - 145 mmol/L LAB CHEMISTRY METHOD 04/09/2025 12:06 PM [facility] Potassium 4.9 3.5 - 5.5 mmol/L LAB CHEMISTRY METHOD 04/09/2025 12:06 PM [facility] Comment:Hemolysis present Chloride 101 96 - 110 mmol/L LAB CHEMISTRY METHOD 04/09/2025 12:06 PM [facility] CO2 26 21 - 32 mmol/L LAB CHEMISTRY METHOD 04/09/2025 12:06 PM [facility] Anion Gap 6 3 - 11 LAB CHEMISTRY METHOD 04/09/2025 12:06 PM [facility] Glucose 97 70 - 100 mg/dL LAB CHEMISTRY METHOD 04/09/2025 12:06 PM [facility] BUN 17 5 - 25 mg/dL LAB CHEMISTRY METHOD 04/09/2025 12:06 PM [facility] Creatinine 0.61 0.50 - 1.10 mg/dL LAB CHEMISTRY METHOD 04/09/2025 12:06 PM [facility] eGFR 88 >=60 mL/min/1. 73m2 LAB CHEMISTRY METHOD 04/09/2025 12:06 PM [facility] Comment:Calculation based on the Chronic Kidney Disease Epidemiology Collaboration (CKD-EPI) equation refit without adjustment for race. BUN/Creatinine Ratio 27.9 LAB CHEMISTRY METHOD 04/09/2025 12:06 PM [facility] Calcium 8.0(L) 8.5 - 10.5 mg/dL LAB CHEMISTRY METHOD 04/09/2025 12:06 PM EDT [facility] Blood Venous blood specimen / Unknown Venipuncture / Unknown 04/09/2025 5:47 AM EDT 04/09/2025 11:23 AM EDT Mario Berrios MD LAB BLOOD ORDERABLES Final Resu lt [facility] ([facility] [address] [place] [address], documented in this encounter Visit Diagnoses Diagnosis Essential (primary) hypertension Unspecified essential hypertension documented in this encounter Care Teams Ax Survey Worker Relationship Specialty Start Date End Date Mario Berrios MD [address] [place] [phone] PCP - General Internal Medicine 04/04/25 documented as of this encounter
--- OUTSIDE RECORDS SUMMARY | 2025-05-14 15:11 | XMS_ITS | Clinical Summary ---
Author Organization [facility] Address [address] [place] [address] Phone Care Team Providers Care Radiology Transcriptionist Name Role Phone Mario Berrios MD Primary Care Provider [phone] Encounters Date Type Department Care Team Description 05/09/2025 Lab Requisition [facility] Lab [address] [place] [address] Mario Berrios MD Essential (primary) hypertension 05/03/2025 Lab Requisition [facility] Lab [address] [place] [address] Mario Berrios MD Essential (primary) hypertension 04/29/2025 Lab Requisition [facility] Lab [address] [place] [address] Mario Berrios MD Hypo-osmolality and hyponatremia 04/24/2025 Lab Requisition [facility] Lab [address] [place] [address] Mario Berrios MD Essential (primary) hypertension 04/23/2025 Lab Requisition [facility] Lab [address] [place] [address] Mario Berrios MD Diarrhea, unspecified 04/22/2025 Lab Requisition [facility] Lab [address] [place] [address] Mario Berrios MD Essential (primary) hypertension 04/17/2025 Lab Requisition [facility] Lab [address] [place] [address] Mario Berrios MD Essential (primary) hypertension 04/15/2025 Lab Requisition [facility] Lab [address] [place] [phone] Mario Berrios MD Essential (primary) hypertension 04/12/2025 Lab Requisition [facility] Lab [address] [place] [phone] Mario Berrios MD Essential (primary) hypertension 04/09/2025 Lab Requisition [facility] Lab [address] [place] [phone] Mario Berrios MD Dysuria; Urinary tract infection, site not specified 04/08/2025 Lab Requisition [facility] Lab [address] [place] [phone] Mario Berrios MD Essential (primary) hypertension 04/06/2025 Lab Requisition [facility] Lab [address] [place] [phone] Mario Berrios MD Essential (primary) hypertension 04/04/2025 Lab Requisition [facility] Lab [address] [place] [phone] Mario Berrios MD Essential (primary) hypertension from Last 3 Months Social History Tobacco [...] Vaccine ( season) 2024 09/05/2021, 05/16/2021, 04/25/2021 Depression Screening 09/17/2024 Cholesterol Screening (Lipid Panel) 12/18/2024 Falls Risk Assessment 12/18/2024 Medicare Annual Wellness Visit 12/18/2024 Osteoporosis Screening (Bone Density Screening) 12/18/2024 Social Influencers of Health Screening 12/18/2024 Influenza Vaccine (#1) 2025 , 07/14/2019, 06/13/2017, Additional history exists Hypertension/CHF/CAD Annual BMP Blood Test 05/04/2026 05/04/2025, 04/29/2025, 04/27/2025, Additional history exists HIB Vaccines Aged Out [...] Associated Diagnosis Comments COMPLETE BLOOD COUNT Routine 05/04/2025 5:20 AM EDT Essential (primary) hypertension COMPREHENSIVE METABOLIC PANEL Routine 05/04/2025 5:20 AM EDT Essential (primary) hypertension COMPREHENSIVE METABOLIC PANEL Routine 04/29/2025 6:15 AM EDT Hypo-osmolality and hyponatremia COMPLETE BLOOD COUNT Routine 04/27/2025 6:26 AM EDT Essential (primary) hypertension COMPREHENSIVE METABOLIC PANEL Routine 04/27/2025 6:26 AM EDT Essential (primary) hypertension BASIC METABOLIC PANEL Routine 04/23/2025 5:52 AM EDT Essential (primary) hypertension COMPLETE BLOOD COUNT Routine 04/23/2025 5:52 AM EDT Essential (primary) hypertension COMPLETE BLOOD COUNT Routine 04/20/2025 5:25 AM EDT Essential (primary) hypertension COMPREHENSIVE METABOLIC PANEL Routine 04/20/2025 5:25 AM EDT Essential (primary) hypertension COMPLETE BLOOD COUNT Routine 04/16/2025 6:36 AM EDT Essential (primary) hypertension BASIC METABOLIC PANEL Routine 04/16/2025 6:36 AM EDT Essential (primary) hypertension COMPLETE BLOOD COUNT Routine 04/13/2025 8:37 AM EDT Essential (primary) hypertension COMPREHENSIVE METABOLIC PANEL Routine 04/13/2025 8:37 AM EDT Essential (primary) hypertension COMPLETE BLOOD COUNT Routine 04/09/2025 5:47 AM EDT Essential (primary) hypertension BASIC METABOLIC PANEL Routine 04/09/2025 5:47 AM EDT Essential (primary) hypertension URINALYSIS WITH REFLEX MICROSCOPIC Routine 04/08/2025 4:45 PM EDT Dysuria Urinary tract infection, site not specified URINALYSIS WITH REFLEX MICROSCOPIC Routine 04/08/2025 4:45 PM EDT Dysuria Urinary tract infection, site not specified CULTURE URINE Routine 04/08/2025 4:45 PM EDT Dysuria Urinary tract infection, site not specified COMPREHENSIVE METABOLIC PANEL Routine 04/06/2025 5:18 AM EDT Essential (primary) hypertension COMPLETE BLOOD COUNT Routine 04/06/2025 5:18 AM EDT Essential (primary) hypertension COMPREHENSIVE METABOLIC PANEL Routine 04/04/2025 8:27 AM EDT Essential (primary) hypertension COMPLETE BLOOD COUNT Routine 04/04/2025 8:27 AM EDT Essential (primary) hypertension from Last 3 Months Results * (ABNORMAL) Complete blood count (05/04/2025 5:20 AM EDT) Only the most recent of9 resultswithin the time period is included. WBC 6.1 4.8 - 10.8 K/mcL LAB HEMETOLOGY METHOD 05/04/2025 11:11 AM [facility] RBC 4.00 3.80 - 4.80 M/mcL LAB HEMETOLOGY METHOD 05/04/2025 11:11 AM [facility] Hemoglobin 12.3 11.5 - 16.0 g/dL LAB HEMETOLOGY METHOD 05/04/2025 11:11 AM [facility] Hematocrit 36.4 35.0 - 47.0 % LAB HEMETOLOGY METHOD 05/04/2025 11:11 AM [facility] MCV 91.9 79.0 - 98.0 FL LAB HEMETOLOGY METHOD 05/04/2025 11:11 AM [facility] MCH 31.1 27.0 - 32.0 pcg LAB HEMETOLOGY METHOD 05/04/2025 11:11 AM [facility] MCHC 33.8 32.0 - 37.0 g/dL LAB HEMETOLOGY METHOD 05/04/2025 11:11 AM [facility] RDW 15.1(H) 11.0 - 15.0 % LAB HEMETOLOGY METHOD 05/04/2025 11:11 AM [facility] Platelets 204 130 - 400 K/mcL LAB HEMETOLOGY METHOD 05/04/2025 11:11 AM EDT [facility] MPV 10.3 7.0 - 11.0 FL LAB HEMETOLOGY METHOD 05/04/2025 11:11 AM EDT [facility] NRBC 0.0 <1.0 % LAB HEMETOLOGY METHOD 05/04/2025 11:11 AM EDT [facility] NRBC Absolute 0.00 <0.10 K/mcL LAB HEMETOLOGY METHOD 05/04/2025 11:11 AM EDT [facility] Blood Venous blood specimen / Unknown Venipuncture / Unknown 05/04/2025 5:20 AM EDT 05/04/2025 10:22 AM EDT us Mario Berrios MD LAB BLOOD ORDERABLES Final Resu lt [facility] [address] [place] [address], [place] [phone] * (ABNORMAL) Comprehensive metabolic panel (05/04/2025 5:20 AM EDT) Only the most recent of7 resultswithin the time period is included. Sodium 131(L) 133 - 145 mmol/L LAB CHEMISTRY METHOD 05/04/2025 11:30 AM T [facility] Potassium 3.6 3.5 - 5.5 mmol/L LAB CHEMISTRY METHOD 05/04/2025 11:30 AM [facility] Comment:Hemolysis present Chloride 94(L) 96 - 110 mmol/L LAB CHEMISTRY METHOD 05/04/2025 11:30 AM [facility] CO2 28 21 - 32 mmol/L LAB CHEMISTRY METHOD 05/04/2025 11:30 AM [facility] Anion Gap 9 3 - 11 LAB CHEMISTRY METHOD 05/04[facility]25 [facility] Glucose 79 70 - 100 mg/dL LAB CHEMISTRY METHOD 05/04/2025 11:30 AM [facility] BUN 11 5 - 25 mg/dL LAB CHEMISTRY METHOD 05/04/2025 11:30 AM [facility] Creatinine 0.44(L) 0.50 - 1.10 mg/dL LAB CHEMISTRY METHOD 05/04/2025 11:30 AM [facility] LAB eGFR 95 >=60 mL/min/1. 73m2 LAB CHEMISTRY METHOD 05/04/2025 11:30 AM [facility] Comment:Calculation based on the Chronic Kidney Disease Epidemiology Collaboration (CKD-EPI) equation refit without adjustment for race. BUN/Creatinine Ratio 25.0 LAB CHEMISTRY METHOD 05/04/2025 11:30 AM [facility] Calcium 8.1(L) 8.5 - 10.5 mg/dL LAB CHEMISTRY METHOD 05/04/2025 11:30 AM [facility] AST (SGOT) 28 10 - 42 unit/L LAB CHEMISTRY METHOD 05/04/2025 11:30 AM [facility] Comment:Hemolysis present ALT (SGPT) 27 10 - 60 unit/L LAB CHEMISTRY METHOD 05/04/2025 11:30 AM [facility] Alkaline Phosphatase 140(H) 42 - 121 unit/L LAB CHEMISTRY METHOD 05/04/2025 11:30 AM [facility] Total Protein 5.5(L) 6.0 - 8.0 g/dL LAB CHEMISTRY METHOD 05/04/2025 11:30 AM [facility] Albumin 2.5(L) 3.2 - 5.0 g/dL LAB CHEMISTRY METHOD 05/04/2025 11:30 AM [facility] Total Bilirubin 0.8 0.0 - 1.4 mg/dL LAB CHEMISTRY METHOD 05/04/2025 11:30 AM [facility] Blood Venous blood specimen / Unknown Venipuncture / Unknown 05/04/2025 5:20 AM EDT 05/04/2025 10:20 AM EDT us Mario Berrios MD LAB BLOOD ORDERABLES Final Resu lt [facility] [address] [place] [address], [place] [phone] * (ABNORMAL) Basic metabolic panel (04/23/2025 5:52 AM EDT) Only the most recent of3 resultswithin the time period is included. Sodium 133 133 - 145 mmol/L LAB CHEMISTRY METHOD 04/23/2025 10:52 AM [facility] Potassium 3.7 3.5 - 5.5 mmol/L LAB CHEMISTRY METHOD 04/23/2025 10:52 AM [facility] Chloride 95(L) 96 - 110 mmol/L LAB CHEMISTRY METHOD 04/23/2025 10:52 AM [facility] CO2 33(H) 21 - 32 mmol/L LAB CHEMISTRY METHOD 04/23/2025 10:52 AM [facility] Anion Gap 5 3 - 11 LAB CHEMISTRY METHOD 04/23/2025 10:52 AM [facility] Glucose 88 70 - 100 mg/dL LAB CHEMISTRY METHOD 04/23/2025 10:52 AM [facility] BUN 9 5 - 25 mg/dL LAB CHEMISTRY METHOD 04/23/2025 10:52 AM [facility] Creatinine 0.60 0.50 - 1.10 mg/dL LAB CHEMISTRY METHOD 04/23/2025 10:52 AM [facility] eGFR 88 >=60 mL/min/1. 73m2 LAB CHEMISTRY METHOD 04/23/2025 10:52 AM [facility] Comment:Calculation based on the Chronic Kidney Disease Epidemiology Collaboration (CKD-EPI) equation refit without adjustment for race. BUN/Creatinine Ratio 15.0 LAB CHEMISTRY METHOD 04/23/2025 10:52 AM EDT [facility] Calcium 7.4(L) 8.5 - 10.5 mg/dL LAB CHEMISTRY METHOD 04/23/2025 10:52 AM T [facility] Blood Venous blood specimen / Unknown Venipuncture / Unknown 04/23/2025 5:52 AM EDT 04/23/2025 9:52 AM EDT us Mario Berrios MD LAB BLOOD ORDERABLES Final Resu lt [facility] [address] [place] [address], [place] [phone] * (ABNORMAL) Urinalysis with reflex microscopic (04/08/2025 4:45 PM EDT) Specific [place] Urine 1.028 1.003 - 1.030 LAB URINALYSIS - AUTOMATED METHOD 04/09/2025 12:19 PM [facility] pH, Urine 5.5 5.0 - 8.0 pH LAB URINALYSIS - AUTOMATED METHOD 04/09/2025 12:19 PM [facility] Leukocytes, Urine Moderate(A) Negative LAB URINALYSIS - AUTOMATED METHOD 04/09/2025 12:19 PM [facility] Nitrite, Urine Positive(A) Negative LAB URINALYSIS - AUTOMATED METHOD 04/09/2025 12:19 PM [facility] Protein, Urine 30(A) <=Trace mg/dL LAB URINALYSIS - AUTOMATED METHOD 04/09/2025 12:19 PM [facility] Glucose, Urine 100(A) Negative mg/dL LAB URINALYSIS - AUTOMATED METHOD 04/09/2025 12:19 PM [facility] Ketones, Urine Trace(A) Negative mg/dL LAB URINALYSIS - AUTOMATED METHOD 04/09/2025 12:19 PM [facility] Urobilinogen , Urine 1.0 0.2 - 1.0 mg/dL LAB URINALYSIS - AUTOMATED METHOD 04/09/2025 12:19 PM [facility] Bilirubin, Urine Negative Negative LAB URINALYSIS - AUTOMATED METHOD 04/09/2025 12:19 PM [facility] Blood, Urine Negative Negative LAB URINALYSIS - AUTOMATED METHOD 04/09/2025 12:19 PM [facility] RBC, Urine 3.7 0 - 4 /HPF LAB URINALYSIS - AUTOMATED METHOD 04/09/2025 12:19 PM [facility] WBC, Urine 59.3(H) 0 - 4 /HPF LAB URINALYSIS - AUTOMATED METHOD 04/09/2025 12:19 PM [facility] Squamous Epithelial, Urine 30 0 - 60 /LPF LAB URINALYSIS - AUTOMATED METHOD 04/09/2025 12:19 PM [facility] Bacteria, Urine Many(A) Negative /HPF LAB URINALYSIS - AUTOMATED METHOD 04/09/2025 12:19 PM [facility] Hyaline Casts, Urine 8.0(H) 0 - 3 /LPF LAB URINALYSIS - AUTOMATED METHOD 04/09/2025 12:19 PM [facility] Urine Urine specimen obtained by clean catch procedure / Unknown Non-blood Collection / Unknown 04/08/2025 4:45 PM EDT 04/09/2025 11:37 AM EDT us Mario Berrios MD LAB URINE ORDERABLES Final Resu lt [facility] [address] [place] [address], * (ABNORMAL) Culture urine (04/08/2025 4:45 PM EDT) [facility] Signature Culture, Urine >=100,000 CFU/mL Enterobacter cloacae complex(A) GEMA 04/11/2025 9:40 AM EDT [facility] Comment: This is an edited result. Previous organism was Gram negative bacilli on 04/10/2025 at 0933 EDT. Urine Urine specimen obtained by clean catch procedure / Unknown Non-blood Collection / Unknown 04/08/2025 4:45 PM EDT 04/09/2025 11:37 AM EDT Narrative Organism Antibiotic Method Susceptibility Enterobacter cloacae complex Amoxicillin/Clavulanate GEMA >=32 ug/ml: Resistant Enterobacter cloacae complex Cefoxitin GEMA >=64 ug/ml: Resistant Enterobacter cloacae complex Ceftazidime GEMA >=32 ug/ml: Resistant Enterobacter cloacae complex Cefepime GEMA 0.5 ug/ml: Susceptible Enterobacter cloacae complex Meropenem GEMA <=0.25 ug/ml: Susceptible Enterobacter cloacae complex Amikacin GEMA 4 ug/ml: Susceptible Enterobacter cloacae complex Gentamicin GEMA <=1 ug/ml: Susceptible Enterobacter cloacae complex Ciprofloxacin GEMA <=0.06 ug/ml: Susceptible Enterobacter cloacae complex Levofloxacin GEMA <=0.12 ug/ml: Susceptible Enterobacter cloacae complex Nitrofurantoin GEMA 32 ug/ml: Susceptible Enterobacter cloacae complex Trimethoprim/Sulfamethoxazo le GEMA <=20 ug/ml: Susceptible Mario Berrios MD LAB MICROBIOLOGY - GENERAL ORDE SHERWIN Final Result [facility] ([facility] [address] [place] [address], [place] [phone] from Last 3 Months Insurance MEDICARE [facility] UCARE MEDICARE Care Teams Radiology Transcriptionist Relationship Specialty Start Date End Date Mario Berrios MD [address] [place] [address] PCP - General Internal Medicine 04/04/25
--- OUTSIDE RECORDS SUMMARY | 2025-05-14 15:11 | XMS_ITS | Patient Health Record ---
Author Organization [facility] Address [address] [facility] [place] [address] Care Team Providers Care Auth Specialist Name Role Phone Owen VIEYRA, Ora Primary Care Provider Unavailab Karol Yanes Unavailable [phone] Reason For Referral No Information Medications Medication [...] Treatment Pending Test Test Name Order Date [id number] TENDON SHEATH/LIGAMENT 0 11/27/2019 Insurance Providers Payer Name Payer Address Payer Phone Subscriber Number Group Number Insured Name Patient Relationship to Insured Coverage Start Date Coverage End Date Medicare [facility] [employer] [address] [facility] [place] [address] [id number] Yesenia Fisher Self - patient is the insured [facility] [address] [place] [address] [id number] Yesenia Fisher Self - patient is the insured Medical (General) History Medical History History ICD Code Reflux Measles breast cancer Mumps Surgical History Surgery Date(Month/Year) cancer surgery 07/1992 varicose vein stripping 1974 hysterectomy 1989
--- OUTSIDE RECORDS SUMMARY | 2025-05-14 15:11 | XMS_ITS | Encounter Summary ---
Author Organization [employer] [facility] Address [address] [place] [address] Care Team Providers Care Experimental Physicist Name Role Phone Mario Berrios MD Primary Care Provider [phone] Encounter Details Date Type Department Care Team (Late st Contact Info) Description 04/06/2025 Lab Requisition [facility] - Main Lab [address] [facility] [place] [address] Mario Berrios MD [address] [place] [address] [phone] Essential (primary) hypertension Social History Tobacco Use [...] Associated Diagnosis Comments COMPLETE BLOOD COUNT Routine 04/06/2025 5:18 AM EDT Essential (primary) hypertension COMPREHENSIVE METABOLIC PANEL Routine 04/06/2025 5:18 AM EDT Essential (primary) hypertension documented in this encounter Results * (ABNORMAL) Comprehensive metabolic panel (04/06/2025 5:18 AM EDT) Sodium 130(L) 133 - 145 mmol/L LAB CHEMISTRY METHOD 04/06/2025 1:16 PM T [facility] Potassium 5.8(H) 3.5 - 5.5 mmol/L LAB CHEMISTRY METHOD 04/06/2025 1:16 PM EDT [facility] Comment:Hemolysis present Chloride 96 96 - 110 mmol/L LAB CHEMISTRY METHOD 04/06/2025 1:16 PM [facility] CO2 24 21 - 32 mmol/L LAB CHEMISTRY METHOD 04/06/2025 1:16 PM [facility] Anion Gap 10 3 - 11 LAB CHEMISTRY METHOD 04/06/2025 1:16 PM [facility] Glucose 97 70 - 100 mg/dL LAB CHEMISTRY METHOD 04/06/2025 1:16 PM [facility] BUN 20 5 - 25 mg/dL LAB CHEMISTRY METHOD 04/06/2025 1:16 PM [facility] Creatinine 0.65 0.50 - 1.10 mg/dL LAB CHEMISTRY METHOD 04/06/2025 1:16 PM [facility] eGFR 86 >=60 mL/min/1. 73m2 LAB CHEMISTRY METHOD 04/06/2025 1:16 PM [facility] Comment:Calculation based on the Chronic Kidney Disease Epidemiology Collaboration (CKD-EPI) equation refit without adjustment for race. BUN/Creatinine Ratio 30.8 LAB CHEMISTRY METHOD 04/06/2025 1:16 PM [facility] Calcium 8.6 8.5 - 10.5 mg/dL LAB CHEMISTRY METHOD 04/06/2025 1:16 PM [facility] AST (SGOT) 28 10 - 42 unit/L LAB CHEMISTRY METHOD 04/06/2025 1:16 PM [facility] Comment:Hemolysis present ALT (SGPT) 34 10 - 60 unit/L LAB CHEMISTRY METHOD 04/06/2025 1:16 PM [facility] Alkaline Phosphatase 78 42 - 121 unit/L LAB CHEMISTRY METHOD 04/06/2025 1:16 PM [facility] Total Protein 5.7(L) 6.0 - 8.0 g/dL LAB CHEMISTRY METHOD 04/06/2025 1:16 PM [facility] Albumin 3.0(L) 3.2 - 5.0 g/dL LAB CHEMISTRY METHOD 04/06/2025 1:16 PM EDT [facility] Total Bilirubin 0.8 0.0 - 1.4 mg/dL LAB CHEMISTRY METHOD 04/06/2025 1:16 PM EDT [facility] Blood Venous blood specimen / Unknown Venipuncture / Unknown 04/06/2025 5:18 AM EDT 04/06/2025 10:40 AM EDT us Mario Berrios MD LAB BLOOD ORDERABLES Final Resu lt [facility] [address] [place] [address], [place] [phone] * (ABNORMAL) Complete blood count (04/06/2025 5:18 AM EDT) WBC 10.8 4.8 - 10.8 K/mcL LAB HEMETOLOGY METHOD 04/06/2025 11:40 AM [facility] RBC 4.00 3.80 - 4.80 M/mcL LAB HEMETOLOGY METHOD 04/06/2025 11:40 AM [facility] Hemoglobin 12.4 11.5 - 16.0 g/dL LAB HEMETOLOGY METHOD 04/06/2025 11:40 AM [facility] Hematocrit 38.3 35.0 - 47.0 % LAB HEMETOLOGY METHOD 04/06/2025 11:40 AM T [facility] MCV 95.8 79.0 - 98.0 FL LAB HEMETOLOGY METHOD 04/06/2025 11:40 AM [facility] MCH 31.0 27.0 - 32.0 pcg LAB HEMETOLOGY METHOD 04/06/2025 11:40 AM [facility] MCHC 32.4 32.0 - 37.0 g/dL LAB HEMETOLOGY METHOD 04/06/2025 11:40 AM EDT [facility] RDW 15.3(H) 11.0 - 15.0 % LAB HEMETOLOGY METHOD 04/06/2025 11:40 AM EDT [facility] Platelets 166 130 - 400 K/mcL LAB HEMETOLOGY METHOD 04/06/2025 11:40 AM EDT [facility] MPV 12.4(H) 7.0 - 11.0 FL LAB HEMETOLOGY METHOD 04/06/2025 11:40 AM EDT [facility] NRBC 0.0 <1.0 % LAB HEMETOLOGY METHOD 04/06/2025 11:40 AM EDT [facility] NRBC Absolute 0.00 <0.10 K/mcL LAB HEMETOLOGY METHOD 04/06/2025 11:40 AM EDT [facility] Blood Venous blood specimen / Unknown Venipuncture / Unknown 04/06/2025 5:18 AM EDT 04/06/2025 10:40 AM EDT Mario Berrios MD LAB BLOOD ORDERABLES Final Resu lt [facility] [address] [place] [address], documented in this encounter Visit Diagnoses Diagnosis Essential (primary) hypertension Unspecified essential hypertension documented in this encounter Care Teams Experimental Physicist Relationship Specialty Start Date End Date Mario Berrios MD [address] [place] [address] PCP - General Internal Medicine 04/04/25 documented as of this encounter
--- OUTSIDE RECORDS SUMMARY | 2025-05-14 15:11 | XMS_ITS | Encounter Summary ---
Author Organization [facility] Address [address] [place] [address] Care Team Providers Care Supervisor Partial Denture Department Name Role Phone Mario Berrios MD Primary Care Provider [phone] Encounter Details Date Type Department Care Team (Late st Contact Info) Description 04/17/2025 Lab Requisition [facility] - Main Lab [address] [facility] [place] [address] Mario Berrios MD [address] [place] [address] [phone] Essential (primary) hypertension Social History Tobacco Use [...] Associated Diagnosis Comments COMPLETE BLOOD COUNT Routine 04/20/2025 5:25 AM EDT Essential (primary) hypertension COMPREHENSIVE METABOLIC PANEL Routine 04/20/2025 5:25 AM EDT Essential (primary) hypertension documented in this encounter Results * (ABNORMAL) Complete blood count (04/20/2025 5:25 AM EDT) WBC 6.2 4.8 - 10.8 K/[facility] LAB HEMETOLOGY METHOD 04/20/2025 11:57 AM EDT [facility] RBC 4.00 3.80 - 4.80 M/[facility] LAB HEMETOLOGY METHOD 04/20/2025 11:57 AM EDT [facility] Hemoglobin 12.5 11.5 - 16.0 g/dL LAB HEMETOLOGY METHOD 04/20/2025 11:57 AM EDT [facility] Hematocrit 37.7 35.0 - 47.0 % LAB HEMETOLOGY METHOD 04/20/2025 11:57 AM EDT [facility] MCV 94.3 79.0 - 98.0 FL LAB HEMETOLOGY METHOD 04/20/2025 11:57 AM EDT [facility] MCH 31.3 27.0 - 32.0 pcg LAB HEMETOLOGY METHOD 04/20/2025 11:57 AM EDT [facility] MCHC 33.2 32.0 - 37.0 g/dL LAB HEMETOLOGY METHOD [facility] RDW 16.7(H) 11.0 - 15.0 % LAB HEMETOLOGY METHOD 04/20/2025 11:57 AM EDT [facility] Platelets 153 130 - 400 K/mcL LAB HEMETOLOGY METHOD 04/20/2025 11:57 AM EDT [facility] MPV 11.5(H) 7.0 - 11.0 FL LAB HEMETOLOGY METHOD 04/20[facility]2025 [facility] NRBC 0.0 <1.0 % LAB HEMETOLOGY METHOD 04/20/2025 11:57 AM EDT [facility] NRBC Absolute 0.00 <0.10 K/mcL LAB HEMETOLOGY METHOD 04/20[facility]2025 11[facility] Blood Venous blood specimen / Unknown Venipuncture / Unknown 04/20/2025 5:25 AM EDT 04/20/2025 10:56 AM EDT us Mario Berrios MD LAB BLOOD ORDERABLES Final Resu lt [facility] [address] [place] [address], * (ABNORMAL) Comprehensive metabolic panel (04/20/2025 5:25 AM EDT) Sodium 134 133 - 145 mmol/L LAB CHEMISTRY METHOD 04/20[facility]2025 1[facility] Potassium 4.1 3.5 - 5.5 mmol/L LAB CHEMISTRY METHOD 04/20/2025 1:10 PM T [facility] Comment:Hemolysis present Chloride 96 96 - 110 mmol/L LAB CHEMISTRY METHOD 04/20/2025 1:10 PM [facility] CO2 30 21 - 32 mmol/L LAB CHEMISTRY METHOD 04/20/2025 1:10 PM [facility] Anion Gap 8 3 - 11 LAB CHEMISTRY METHOD 04/20/2025 1:10 PM [facility] Glucose 84 70 - 100 mg/dL LAB CHEMISTRY METHOD 04/20/2025 1:10 PM [facility] BUN 14 5 - 25 mg/dL LAB CHEMISTRY METHOD 04/20/2025 1:10 PM [facility] Creatinine 0.56 0.50 - 1.10 mg/dL LAB CHEMISTRY METHOD 04/20/2025 1:[facility] eGFR 90 >=60 mL/min/1. 73m2 LAB CHEMISTRY METHOD 04/20/2025 1:10 PM [facility] Comment:Calculation based on the Chronic Kidney Disease Epidemiology Collaboration (CKD-EPI) equation refit without adjustment for race. BUN/Creatinine Ratio 25.0 LAB CHEMISTRY METHOD 04/20/2025 1:10 PM [facility] Calcium 8.1(L) 8.5 - 10.5 mg/dL LAB CHEMISTRY METHOD 04/20/2025 1:10 PM [facility] AST (SGOT) 35 10 - 42 unit/L LAB CHEMISTRY METHOD 04/20/2025 1:10 PM EDT [facility] Comment:Hemolysis present ALT (SGPT) 69(H) 10 - 60 unit/L LAB CHEMISTRY METHOD 04/20/2025 1:10 PM EDT [facility] Alkaline Phosphatase 156(H) 42 - 121 unit/L LAB CHEMISTRY METHOD 04/20/2025 1:10 PM EDT [facility] Total Protein 5.3(L) 6.0 - 8.0 g/dL LAB CHEMISTRY METHOD 04/20/2025 1:10 PM EDT [facility] Albumin 2.7(L) 3.2 - 5.0 g/dL LAB CHEMISTRY METHOD 04/20/2025 1:10 PM EDT [facility] Total Bilirubin 2.1(H) 0.0 - 1.4 mg/dL LAB CHEMISTRY METHOD 04/20/2025 1:10 PM EDT [facility] Comment:Results verified by repeat testing Blood Venous blood specimen / Unknown Venipuncture / Unknown 04/20/2025 5:25 AM EDT 04/20/2025 12:06 PM EDT Mario Berrios MD LAB BLOOD ORDERABLES Final Resu lt [facility] [address] [place] [address], documented in this encounter Visit Diagnoses Diagnosis Essential (primary) hypertension Unspecified essential hypertension documented in this encounter Care Teams Supervisor Partial Denture Department Relationship Specialty Start Date End Date Mario Berrios MD [address] [place] [phone] PCP - General Internal Medicine 04/04/25 documented as of this encounter
--- OUTSIDE RECORDS SUMMARY | 2025-05-14 15:11 | XMS_ITS | Encounter Summary ---
Author Organization [facility] Address [address] [place] [address] Care Team Providers Care Hr Operations Advisor Name Role Phone Mario Berrios MD Primary Care Provider [phone] Encounter Details Date Type Department Care Team (Late st Contact Info) Description 04/04/2025 Lab Requisition [facility] - Main Lab [address] [facility] [place] [address] Mario Berrios MD [address] [place] [address] [phone] Essential (primary) hypertension Social History Tobacco Use [...] Associated Diagnosis Comments COMPLETE BLOOD COUNT Routine 04/04/2025 8:27 AM EDT Essential (primary) hypertension COMPREHENSIVE METABOLIC PANEL Routine 04/04/2025 8:27 AM EDT Essential (primary) hypertension documented in this encounter Results * (ABNORMAL) Comprehensive metabolic panel (04/04/2025 8:27 AM EDT) Sodium 133 133 - 145 mmol/L LAB CHEMISTRY METHOD 04/04/2025 1:38 PM EDT [facility] Potassium 5.0 3.5 - 5.5 mmol/L LAB CHEMISTRY METHOD 04/04/2025 1:38 PM EDT [facility] Chloride 94(L) 96 - 110 mmol/L LAB CHEMISTRY METHOD 04/04/2025 1:38 PM [facility] CO2 31 21 - 32 mmol/L LAB CHEMISTRY METHOD 04/04/2025 1:38 PM [facility] Anion Gap 8 3 - 11 LAB CHEMISTRY METHOD 04/04/2025 1:38 PM [facility] Glucose 122(H) 70 - 100 mg/dL LAB CHEMISTRY METHOD 04/04/2025 1:38 PM [facility] BUN 21 5 - 25 mg/dL LAB CHEMISTRY METHOD 04/04/2025 1:38 PM [facility] Creatinine 0.62 0.50 - 1.10 mg/dL LAB CHEMISTRY METHOD 04/04/2025 1:38 PM [facility] eGFR 87 >=60 mL/min/1. 73m2 LAB CHEMISTRY METHOD 04/04/2025 1:38 PM [facility] Comment:Calculation based on the Chronic Kidney Disease Epidemiology Collaboration (CKD-EPI) equation refit without adjustment for race. BUN/Creatinine Ratio 33.9 LAB CHEMISTRY METHOD 04/04/2025 1:38 PM [facility] Calcium 9.0 8.5 - 10.5 mg/dL LAB CHEMISTRY METHOD 04/04/2025 1:38 PM [facility] AST (SGOT) 17 10 - 42 unit/L LAB CHEMISTRY METHOD 04/04/2025 1:38 PM [facility] ALT (SGPT) 34 10 - 60 unit/L LAB CHEMISTRY METHOD 04/04/2025 1:38 PM [facility] Alkaline Phosphatase 65 42 - 121 unit/L LAB CHEMISTRY METHOD 04/04/2025 1:38 PM [facility] Total Protein 5.6(L) 6.0 - 8.0 g/dL LAB CHEMISTRY METHOD 04/04/2025 1:38 PM [facility] Albumin 2.9(L) 3.2 - 5.0 g/dL LAB CHEMISTRY METHOD 04/04/2025 1:38 PM EDT [facility] Total Bilirubin 0.9 0.0 - 1.4 mg/dL LAB CHEMISTRY METHOD 04/04/2025 1:38 PM EDT [facility] Blood Venous blood specimen / Unknown Venipuncture / Unknown 04/04/2025 8:27 AM EDT 04/04/2025 12:53 PM EDT us Mario Berrios MD LAB BLOOD ORDERABLES Final Resu lt [facility] [address] [place] [address], [place] [phone] * (ABNORMAL) Complete blood count (04/04/2025 8:27 AM EDT) WBC 11.0(H) 4.8 - 10.8 K/mcL LAB HEMETOLOGY METHOD 04/04/2025 1:20 PM EDT [facility] RBC 4.30 3.80 - 4.80 M/mcL LAB HEMETOLOGY METHOD 04/04/2025 1:20 PM EDT [facility] Hemoglobin 13.2 11.5 - 16.0 g/dL LAB HEMETOLOGY METHOD 04/04/2025 1:20 PM EDT [facility] Hematocrit 40.2 35.0 - 47.0 % LAB HEMETOLOGY METHOD 04/04/2025 1:20 PM EDT [facility] MCV 93.7 79.0 - 98.0 FL LAB HEMETOLOGY METHOD 04/04/2025 1:20 PM EDT [facility] MCH 30.8 27.0 - 32.0 pcg LAB HEMETOLOGY METHOD 04/04/2025 1:20 PM EDT [facility] MCHC 32.8 32.0 - 37.0 g/dL LAB HEMETOLOGY METHOD 04/04/2025 1:20 PM EDT [facility] RDW 15.3(H) 11.0 - 15.0 % LAB HEMETOLOGY METHOD 04/04/2025 1:20 PM EDT [facility] Platelets 179 130 - 400 K/mcL LAB HEMETOLOGY METHOD 04/04/2025 1:20 PM EDT [facility] MPV 11.9(H) 7.0 - 11.0 FL LAB HEMETOLOGY METHOD 04/04/2025 1:20 PM EDT [facility] NRBC 0.0 <1.0 % LAB HEMETOLOGY METHOD 04/04/2025 1:20 PM EDT [facility] NRBC Absolute 0.00 <0.10 K/mcL LAB HEMETOLOGY METHOD 04/04/2025 1:20 PM EDT [facility] Blood Venous blood specimen / Unknown Venipuncture / Unknown 04/04/2025 8:27 AM EDT 04/04/2025 12:53 PM EDT us Mario Berrios MD LAB BLOOD ORDERABLES Final Resu lt [facility] [address] [place] [address], documented in this encounter Visit Diagnoses Diagnosis Essential (primary) hypertension Unspecified essential hypertension documented in this encounter Care Teams Hr Operations Advisor Relationship Specialty Start Date End Date Mario Berrios MD [address] [place] [address] PCP - General Internal Medicine 04/04/25 documented as of this encounter
--- OUTSIDE RECORDS SUMMARY | 2025-05-14 15:11 | XMS_ITS | Encounter Summary ---
Author Organization [facility] Address [address] [place] [address] Care Team Providers Care Hammer Mill Operator Name Role Phone Mario Berrios MD Primary Care Provider [phone] Encounter Details Date Type Department Care Team (Late st Contact Info) Description 04/24/[address] [facility] - Main Lab [address] [facility] [place] [address] Mario Berrios MD [address] [place] [address] [phone] Essential (primary) hypertension Social History Tobacco Use [...] Associated Diagnosis Comments COMPLETE BLOOD COUNT Routine 04/27/2025 6:26 AM EDT Essential (primary) hypertension COMPREHENSIVE METABOLIC PANEL Routine 04/27/2025 6:26 AM EDT Essential (primary) hypertension documented in this encounter Results * (ABNORMAL) Complete blood count (04/27/2025 6:26 AM EDT) WBC 6.1 4.8 - 10.8 K/[facility] LAB HEMETOLOGY METHOD 04/27/2025 1:[address] [facility] RBC 4.20 3.80 - 4.80 M/[facility] LAB HEMETOLOGY METHOD 04/27/2025 1:[address] [facility] Hemoglobin 12.9 11.5 - 16.0 g/dL LAB HEMETOLOGY METHOD 04/27/2025 1:[address] [facility] Hematocrit 39.2 35.0 - 47.0 % LAB HEMETOLOGY METHOD 04/27/2025 1:[address] [facility] MCV 94.0 79.0 - 98.0 FL LAB HEMETOLOGY METHOD 04/27/2025 1:[address] [facility] MCH 30.9 27.0 - 32.0 pcg LAB HEMETOLOGY METHOD 04/27/2025 1:[address] [facility] MCHC 32.9 32.0 - 37.0 g/dL LAB HEMETOLOGY METHOD 04/27/2025 1:[address] [facility] RDW 16.2(H) 11.0 - 15.0 % LAB HEMETOLOGY METHOD 04/27/2025 1:[address] [facility] Platelets 173 130 - 400 K/mcL LAB HEMETOLOGY METHOD 04/27/2025 1:[address] [facility] MPV 10.3 7.0 - 11.0 FL LAB HEMETOLOGY METHOD 04/27/2025 1:[address] [facility] NRBC 0.0 <1.0 % LAB HEMETOLOGY METHOD 04/27/2025 1:[address] [facility] NRBC Absolute 0.00 <0.10 K/mcL LAB HEMETOLOGY METHOD 04/27/2025 1:[address] [facility] Blood Venous blood specimen / Unknown Venipuncture / Unknown 04/27/2025 6:26 AM EDT 04/27/2025 11:51 AM EDT us Mario Berrios MD LAB BLOOD ORDERABLES Final Resu lt [facility] [address] [place] [address], * (ABNORMAL) Comprehensive metabolic panel (04/27/2025 6:26 AM EDT) Sodium 130(L) 133 - 145 mmol/L LAB CHEMISTRY METHOD 04/27/2025 1:02 PM [facility] Potassium 4.1 3.5 - 5.5 mmol/L LAB CHEMISTRY METHOD 04/27/2025 1:02 PM [facility] Chloride 94(L) 96 - 110 mmol/L LAB CHEMISTRY METHOD 04/27/2025 1:02 PM [facility] CO2 29 21 - 32 mmol/L LAB CHEMISTRY METHOD 04/27/2025 1:02 PM [facility] Anion Gap 7 3 - 11 LAB CHEMISTRY METHOD 04/27/2025 1:02 PM [facility] Glucose 76 70 - 100 mg/dL LAB CHEMISTRY METHOD 04/27/2025 1:02 PM [facility] BUN 9 5 - 25 mg/dL LAB CHEMISTRY METHOD 04/27/2025 1:02 PM [facility] Creatinine 0.58 0.50 - 1.10 mg/dL LAB CHEMISTRY METHOD 04/27/2025 1:02 PM [facility] eGFR 89 >=60 mL/min/1. 73m2 LAB CHEMISTRY METHOD 04/27/2025 1:02 PM [facility] Comment:Calculation based on the Chronic Kidney Disease Epidemiology Collaboration (CKD-EPI) equation refit without adjustment for race. BUN/Creatinine Ratio 15.5 LAB CHEMISTRY METHOD 04/27/2025 1:02 PM [facility] Calcium 8.1(L) 8.5 - 10.5 mg/dL LAB CHEMISTRY METHOD 04/27/2025 1:02 PM [facility] AST (SGOT) 19 10 - 42 unit/L LAB CHEMISTRY METHOD 04/27/2025 1:[address] [facility] ALT (SGPT) 34 10 - 60 unit/L LAB CHEMISTRY METHOD 04/27/2025 1:[address] [facility] Alkaline Phosphatase 139(H) 42 - 121 unit/L LAB CHEMISTRY METHOD 04/27/2025 1:[address] [facility] Total Protein 5.4(L) 6.0 - 8.0 g/dL LAB CHEMISTRY METHOD 04/27/2025 1:[address] [facility] Albumin 2.7(L) 3.2 - 5.0 g/dL LAB CHEMISTRY METHOD 04/27/2025 1:02 PM [facility] Total Bilirubin 1.2 0.0 - 1.4 mg/dL LAB CHEMISTRY METHOD 04/27/2025 1:[address] [facility] Blood Venous blood specimen / Unknown Venipuncture / Unknown 04/27/2025 6:26 AM EDT 04/27/2025 11:51 AM EDT us Mario Berrios MD LAB BLOOD ORDERABLES Final Resu lt [facility] [address] [place] [address], documented in this encounter Visit Diagnoses Diagnosis Essential (primary) hypertension Unspecified essential hypertension documented in this encounter Care Teams Hammer Mill Operator Relationship Specialty Start Date End Date Mario Berrios MD [address] [place] [phone] PCP - General Internal Medicine 04/04/25 documented as of this encounter
--- OUTSIDE RECORDS SUMMARY | 2025-05-14 15:11 | XMS_ITS | Encounter Summary ---
Author Organization [employer] [facility] Address [address] [place] [address] Care Team Providers Care Combat Systems Officer Name Role Phone Mario Berrios MD Primary Care Provider [phone] Encounter Details Date Type Department Care Team (Late st Contact Info) Description 05/09/2025 Lab Requisition [facility] - Main Lab 299 [facility] [place] [address] Mario Berrios MD [address] [place] [address] Essential (primary) hypertension Social History Tobacco Use Types Packs/Day Years Used Date Smoking Tobacco: Never Assessed Comments Unknown Sex and Gender Information Value Date Recorded Sex Assigned at Not on file Legal Sex Female 11:01 AM EDT Gender Identity Not on file Sexual Orientation Not on file documented as of this encounter Plan of Treatment Not on file documented as of this encounter Visit Diagnoses Diagnosis Essential (primary) hypertension Unspecified essential hypertension documented in this encounter Care Teams Combat Systems Officer Relationship Specialty Start Date End Date Mario Berrios MD [address] [place] [address] PCP - General Internal Medicine 04/04/25 documented as of this encounter
--- OUTSIDE RECORDS SUMMARY | 2025-05-14 15:11 | XMS_ITS | Encounter Summary ---
Author Organization [employer] Address [address] [place] [address] Care Team Providers Care Gluing Crew Leader Name Role Phone Mario Berrios MD Primary Care Provider [phone] Encounter Details Date Type Department Care Team (Late st Contact Info) Description 04/09/2025 Lab Requisition [facility] - Main Lab [address] [facility] [place] [address] Mario Berrios MD [address] [place] [phone] Dysuria; Urinary tract infection, site not specified Social History Tobacco Use Types Packs/Day Years [...] Procedure Name Priority Date/Time Associated Diagnosis Comments URINALYSIS WITH REFLEX MICROSCOPIC Routine 04/08/2025 4:45 PM EDT Dysuria Urinary tract infection, site not specified URINALYSIS WITH REFLEX MICROSCOPIC Routine 04/08/2025 4:45 PM EDT Dysuria Urinary tract infection, site not specified CULTURE URINE Routine 04/08/2025 4:45 PM EDT Dysuria Urinary tract infection, site not specified documented in this encounter Results * (ABNORMAL) Urinalysis with reflex microscopic (04/08/2025 4:45 PM EDT) Specific [place] Urine 1.028 1.003 - 1.030 LAB URINALYSIS - AUTOMATED METHOD 04/09/2025 12:19 PM [facility] LAB pH, Urine 5.5 5.0 - 8.0 pH LAB URINALYSIS - AUTOMATED METHOD 04/09/2025 12:19 PM [facility] Leukocytes, Urine Moderate(A) Negative LAB URINALYSIS - AUTOMATED METHOD 04/09/2025 12:19 PM [facility] Nitrite, Urine Positive(A) Negative LAB URINALYSIS - AUTOMATED METHOD 04/09/2025 12:19 PM [facility] Protein, Urine 30(A) <=Trace mg/dL LAB URINALYSIS - AUTOMATED METHOD 04/09/2025 12:19 PM [facility] Glucose, Urine 100(A) Negative mg/dL LAB URINALYSIS - AUTOMATED METHOD 04/09/2025 12:19 PM [facility] Ketones, Urine Trace(A) Negative mg/dL LAB URINALYSIS - AUTOMATED METHOD 04/09/2025 12:19 PM [facility] Urobilinogen , Urine 1.0 0.2 - 1.0 mg/dL LAB URINALYSIS - AUTOMATED METHOD 04/09/2025 12:19 PM [facility] Bilirubin, Urine Negative Negative LAB URINALYSIS - AUTOMATED METHOD 04/09/2025 12:19 PM [facility] Blood, Urine Negative Negative LAB URINALYSIS - AUTOMATED METHOD 04/09/2025 12:19 PM [facility] RBC, Urine 3.7 0 - 4 /HPF LAB URINALYSIS - AUTOMATED METHOD 04/09/2025 12:19 PM [facility] WBC, Urine 59.3(H) 0 - 4 /HPF LAB URINALYSIS - AUTOMATED METHOD 04/09/2025 12:19 PM [facility] Squamous Epithelial, Urine 30 0 - 60 /LPF LAB URINALYSIS - AUTOMATED METHOD 04/09/2025 12:19 PM [facility] Bacteria, Urine Many(A) Negative /HPF LAB URINALYSIS - AUTOMATED METHOD 04/09/2025 12:19 PM EDT [facility] Hyaline Casts, Urine 8.0(H) 0 - 3 /LPF LAB URINALYSIS - AUTOMATED METHOD 04/09/2025 12:19 PM EDT [facility] Urine Urine specimen obtained by clean catch procedure / Unknown Non-blood Collection / Unknown 04/08/2025 4:45 PM EDT 04/09/2025 11:37 AM EDT us Mario Berrios MD LAB URINE ORDERABLES Final Resu lt [facility] [address] [place] [address], [place] [phone] * (ABNORMAL) Culture urine (04/08/2025 4:45 PM EDT) Culture, Urine >=100,000 CFU/mL Enterobacter cloacae complex(A) GEMA 04/11/2025 9:40 AM EDT [facility] Comment: This is an edited [...] 4 ug/ml: Susceptible Enterobacter cloacae complex Gentamicin EGMA <=1 ug/ml: Susceptible Enterobacter cloacae complex Ciprofloxacin GEMA <=0.06 ug/ml: Susceptible Enterobacter cloacae complex Levofloxacin GEMA <=0.12 ug/ml: Susceptible Enterobacter cloacae complex Nitrofurantoin GEMA 32 ug/ml: Susceptible Enterobacter cloacae complex Trimethoprim/Sulfamethoxazo le GEMA <=20 ug/ml: Susceptible Mario Berrios MD LAB MICROBIOLOGY - [facility]AL [facility] Final Result Performing Organization Address City/State/RUST Co de Phone Number [phone] ([facility] [address] [place] [address], documented in this encounter Visit Diagnoses Diagnosis Dysuria Urinary tract infection, site not specified documented in this encounter Care Teams Gluing Crew Leader Relationship Specialty Start Date End Date Mario Berrios MD [address] [place] [address] PCP - General Internal Medicine 04/04/25 documented as of this encounter
--- OUTSIDE RECORDS SUMMARY | 2025-05-14 15:11 | XMS_ITS | Encounter Summary ---
Author Organization Mari [facility] Address [address] [place] [address] Care Team Providers Care Plodding Operator Name Role Phone Mario Berrios MD Primary Care Provider [phone] Encounter Details Date Type Department Care Team (Late st Contact Info) Description 05/03/2025 Lab Requisition [facility] - Main Lab 299 [facility] [place] [address] Mario Berrios MD [address] [place] [phone] Essential (primary) hypertension Social History Tobacco [...] 05/04/2025 5:20 AM EDT Essential (primary) hypertension documented in this encounter Results * (ABNORMAL) Complete blood count (05/04/2025 5:20 AM EDT) WBC 6.1 4.8 - 10.8 K/[facility] LAB HEMETOLOGY METHOD 05/04/2025 11:11 AM EDT [facility] RBC 4.00 3.80 - 4.80 M/[facility] LAB HEMETOLOGY METHOD 05/04/2025 11:11 AM EDT [facility] Hemoglobin 12.3 11.5 - 16.0 g/dL LAB HEMETOLOGY METHOD 05/04/2025 11:11 AM EDT [facility] Hematocrit 36.4 35.0 - 47.0 % LAB HEMETOLOGY METHOD 05/04/2025 11:11 AM EDT [facility] MCV 91.9 79.0 - 98.0 FL LAB HEMETOLOGY METHOD 05/04/2025 11:11 AM EDT [facility] LAB MCH 31.1 27.0 - 32.0 pcg LAB HEMETOLOGY METHOD 05/04/2025 11:11 AM EDT [facility] LAB MCHC 33.8 32.0 - 37.0 g/dL LAB HEMETOLOGY METHOD 05/04/2025 11:11 AM [facility] RDW 15.1(H) 11.0 - 15.0 % LAB HEMETOLOGY METHOD 05/04/2025 11:11 AM EDT [facility] Platelets 204 130 - 400 K/mcL LAB HEMETOLOGY METHOD 05/04/2025 11:11 AM EDT [facility] LAB MPV 10.3 7.0 - 11.0 FL LAB HEMETOLOGY METHOD [facility] NRBC 0.0 <1.0 % LAB HEMETOLOGY METHOD 05/04/2025 11:11 AM EDT [facility] LAB NRBC Absolute 0.00 <0.10 K/mcL LAB HEMETOLOGY METHOD 05/04/2025 11:11 AM EDT [facility] Blood Venous blood specimen / Unknown Venipuncture / Unknown 05/04/2025 5:20 AM EDT 05/04/2025 10:22 AM EDT us Mario Berrios MD LAB BLOOD ORDERABLES Final Resu lt [facility] [address] [place] [address], * (ABNORMAL) Comprehensive metabolic panel (05/04/2025 5:20 AM EDT) Sodium 131(L) 133 - 145 mmol/L LAB CHEMISTRY METHOD 05/04/2025 11:30 AM [facility] Potassium 3.6 3.5 - 5.5 mmol/L LAB CHEMISTRY METHOD 05/04/2025 11:30 AM [facility] Comment:Hemolysis present Chloride 94(L) 96 - 110 mmol/L LAB CHEMISTRY METHOD 05/04/2025 11:30 AM [facility] CO2 28 21 - 32 mmol/L LAB CHEMISTRY METHOD 05/04/2025 11:30 AM [facility] Anion Gap 9 3 - 11 LAB CHEMISTRY METHOD 05/04/2025 11:30 AM [facility] Glucose 79 70 - 100 mg/dL LAB CHEMISTRY METHOD 05/04/2025 11:30 AM [facility] BUN 11 5 - 25 mg/dL LAB CHEMISTRY METHOD 05/04/2025 11:30 AM [facility] Creatinine 0.44(L) 0.50 - 1.10 mg/dL LAB CHEMISTRY METHOD 05/04/2025 11:30 AM [facility] LAB eGFR 95 >=60 mL/min/1. 73m2 LAB CHEMISTRY METHOD 05/04/2025 11:30 AM [facility] Comment:Calculation based on the Chronic Kidney Disease Epidemiology Collaboration (CKD-EPI) equation refit without adjustment for race. BUN/Creatinine Ratio 25.0 LAB CHEMISTRY METHOD 05/04/2025 11:30 AM [facility] Calcium 8.1(L) 8.5 - 10.5 mg/dL LAB CHEMISTRY METHOD 05/04/2025 11:30 AM EDT [facility] AST (SGOT) 28 10 - 42 unit/L LAB CHEMISTRY METHOD 05/04/2025 11:30 AM EDT [facility] Comment:Hemolysis present ALT (SGPT) 27 10 - 60 unit/L LAB CHEMISTRY METHOD 05/04/2025 11:30 AM EDT [facility] Alkaline Phosphatase 140(H) 42 - 121 unit/L LAB CHEMISTRY METHOD 05/04/2025 11:30 AM EDT [facility] Total Protein 5.5(L) 6.0 - 8.0 g/dL LAB CHEMISTRY METHOD 05/04/2025 11:30 AM EDT [facility] Albumin 2.5(L) 3.2 - 5.0 g/dL LAB CHEMISTRY METHOD 05/04/2025 11:30 AM EDT [facility] Total Bilirubin 0.8 0.0 - 1.4 mg/dL LAB CHEMISTRY METHOD 05/04/2025 11:30 AM EDT [facility] Blood Venous blood specimen / Unknown Venipuncture / Unknown 05/04/2025 5:20 AM EDT 05/04/2025 10:20 AM EDT Mario Berrios MD LAB BLOOD ORDERABLES Final Resu lt [facility] [address] [place] [address], documented in this encounter Visit Diagnoses Diagnosis Essential (primary) hypertension Unspecified essential hypertension documented in this encounter Care Teams Plodding Operator Relationship Specialty Start Date End Date Mario Berrios MD [address] [place] [address] PCP - General Internal Medicine 04/04/25 documented as of this encounter
--- OUTSIDE RECORDS SUMMARY | 2025-05-14 15:11 | XMS_ITS | Encounter Summary ---
Author Organization [facility] Address [address] [place] [phone] Phone Care Team Providers Care Chief Compliance Officer Name Role Phone Pcp, Unknown Primary Care Provider Unavailabl e Encounter Details Date Type Department Care Team (Late st Contact Info) Description 10/01/2024 Procedure Pass [facility] Admitting Dept Virtual Department [address] [place] [address] Social History Tobacco Use Types Packs/Day Years Used Date Smoking Tobacco: Never Smokeless Tobacco: Never Alcohol Use Standard Drinks/Week Comments Never 0 (1 standard drink = 0.6 oz pur e alcohol) Education Answer Date Recorded Are you interested in more education? Not on llilian e 08/05/2024 Are you concerned about learning? Not on file 08/05/2024 No 08/05/2024 No 08/05/2024 Digital Access Answer Date Recorded No 08/05/2024 No 08/05/2024 Reliable internet access at home? Not on file 08/05/2024 Device with a working camera? Not on file Intimate Partner Violence Answer Date R ecorded Denied Basic Needs Not on file 09/25/2024 In the past 12 months have y ou been in a relationship with a person who hurts, threatens, or tries to control you? No 09/25/2024 Worried food would run out Not on file 09/25 In the past 12 months have y ou been in a relationship with a person who hurts, threatens, or tries to control you? No 09/25/2024 Comments Unknown Sex and Gender Information Value Date Recorded Sex Assigned at Not on file Legal Sex Female 2:18 PM EST Gender Identity Not on file Sexual Orientation Not on file documented as of this encounter Plan of Treatment Not on file documented as of this encounter Visit Diagnoses Not on filedocumented in this encounter Care Teams Chief Compliance Officer Relationship Specialty Start Date End Date Pcp, Unknown PCP - General 08/05/24 documented as of this encounter Additional Source Comments The information contained in this document represents components of the legal health record. It is not the complete legal health record.[facility]
--- OUTSIDE RECORDS SUMMARY | 2025-05-14 15:11 | XMS_ITS | Clinical Summary ---
Author Organization [facility] Address [address] [facility] [address] [place] [phone] Phone Care Team Providers Care Wildlife Science Professor Name Role Phone Pcp, Unknown Primary Care Provider Unavailabl e Allergies No known active allergies Medications atenolol (TENORMIN) 25 MG tablet TAKE 1+1/2 TABLET BY MOUTH DAILY 08/19/2024 Active lisinopril (PRINIVIL,ZESTRI L) 20 MG tablet Take 1 tablet by mouth 2 (two) times a day. 09/20/2024 Active simvastatin (ZOCOR) 20 MG tablet Take 1 tablet by mouth every morning. 07/03/2024 Active aspirin 81 MG EC tablet Take 81 mg by mouth daily. Active cholecalciferol (VITAMIN D3) 25 MCG (1,000 unit) tablet Take 1,000 Units by mouth daily. Active Encounters Date Type Department Care Team Description 03/30/2025 9:36 AM EDT - 03/30/2025 11:59 PM EDT Hospital Encounter [facility] Laboratory [address] [place] [address] Walt Cruz MD Discharge Disposition: Home or Self Care 03/30/2025 Transcribe Orders [facility] Specimen Processing [address] [place] [address] Walt Cruz MD Hypertension, unspecified type (Primary Dx); Atrial fibrillation, unspecified type from Last 3 Months Social History Tobacco Use Types Packs/Day Years Used Date Smoking Tobacco: Never Smokeless Tobacco: Never Tobacco Cessation:Counseling Given: Not Answered Alcohol Use Standard Drinks/Week Comments Never 0 (1 standard drink = 0.6 oz pur e alcohol) Education Answer Date Recorded Are you interested in more education? Not on lillian e 08/05/2024 Are you concerned about learning? [...] on file Sexual Orientation Not on file Last Filed Vital Signs Vital Sign Reading Time Taken Comments Blood Pressure - - Pulse - - Temperature - - Respiratory Rate - - Oxygen Saturation - - Inhaled Oxygen Concentration - - Weight 74.8 kg (165 lb) 09/25/2024 9:12 AM EST Height 167.6 cm (5' 6 ) 09/25/2024 9:12 AM EST Body Mass Index 26.63 09/25/2024 9:12 AM EST Plan of Treatment Health Maintenance Due Date Last Done Comments BLOOD PRESSURE 1939 DEPRESSION SCREENING 1951 PNEUMOCOCCAL VACCINES (50+ years) (1 of 1 - PCV) 12/05/1989 ZOSTER VACCINES (1 of 2) 12/05/1989 OSTEOPOROSIS SCREENING INITI AL (ONE-TIME) 12/05/2004 RSV VACCINE (1 - 1-dose 75+ series) 12/05/2014 Adult Td,Tdap Booster 05/17/2022 05/17/2012 COVID-19 VACCINE (4 - 2023-2 5 season) 2024 09/05/2021, 05/16/2021, 04/25/2021 CREATININE LEVEL 03/30/2026 03/30/2025 POTASSIUM LEVEL 03/30/2026 03/30/2025 HEPATITIS A VACCINES Aged Out No long er eligible based on patient's age to complete this topic HIB VACCINES Aged Out No longer eligi ble based on patient's age to complete this topic MENINGOCOCCAL VACCINES (ACWY) Aged Out No longer eligible based on patient's age to complete this topic MENINGOCOCCAL VACCINES (B) Aged Out N o longer eligible based on patient's age to complete this topic Medical Devices Not on file Procedures Procedure Name Priority Date/Time Associated Diagnosis Comments CBC Routine 03/30/2025 5:51 AM EDT Atrial fibrillation, unspecified type Hypertension, unspecified type COMPREHENSIVE METABOLIC PANEL Routine 03/30/2025 5:51 AM EDT Atrial fibrillation, unspecified type Hypertension, unspecified type from Last 3 Months Results * (ABNORMAL) Comprehensive metabolic panel (03/30/2025 5:51 AM EDT) SODIUM 131(L) 133 - 146 mmol/L [facility] POTASSIUM 4.6 3.3 - 5.1 mmol/L [facility] CHLORIDE 92(L) 96 - 108 mmol/L [facility] CO2 30 21 - 35 mmol/L [facility] BUN 30(H) 6 - 19 mg/dL [facility] CREATININE 0.50 0.5 - 1.5 mg/dL [facility] GLUCOSE 123(H) 70 - 99 mg/dL [facility] ALBUMIN 3.3(L) 3.9 - 4.8 g/dL [facility] TOTAL PROTEIN 5.4(L) 6.5 - 8.0 g/dL [facility] CALCIUM 8.5 8.4 - 10.3 mg/dL [facility] ALKALINE PHOSPHATASE 53 39 - 117 U/L [facility] TOTAL BILIRUBIN 1.8(H) 0.0 - 1.2 mg/dL [facility] AST 14 0 - 37 U/L [facility] ALT 32 0 - 40 U/L [facility] GLOBULIN 2.1 1 - 4.8 g/dL [facility] EGFR 92 >59 mL/min/1.7 3m2 [facility] Comment:Estimated glomerular filtration rate calculated using the CKD-EPI refit equation. ANION GAP 14 10 - 20 mmol/L [facility] 03/30/2025 5:51 AM EDT 03/30/2025 10:16 AM EDT us Walt Cruz MD LAB BLOOD ORDERABLES Final Resul t Performing Organization Address [facility]/ZIP Co de Phone Number [address] [phone] * (ABNORMAL) CBC (03/30/2025 5:51 AM EDT) WBC 13.24(H) 4.00 - 11.00 K/uL [facility] RBC 4.47 4.00 - 5.20 M/uL [facility] HGB 13.9 12.0 - 16.0 g/dL [facility] HCT 42.0 36.0 - 46.0 % [facility] PLT 182 150 - 450 K/uL [facility] MCV 94.0 80.0 - 100.0 fL [facility] MCH 31.1(H) 27.0 - 31.0 pg [facility] MCHC 33.1 32.0 - 36.0 g/dL [facility] RDW 14.6(H) 11.5 - 14.5 % [facility] MPV 11.7 8.4 - 12.0 fL [facility] NRBC 0.00 0.00 /100 WBCs [facility] ABSOLUTE NRBC 0.00 0.00 K/uL [facility] 03/30/2025 5:51 AM EDT 03/30/2025 10:16 AM EDT us Walt Cruz MD LAB BLOOD ORDERABLES Final Resul t Performing Organization Address City/[facility]/ZIP Co de Phone Number [address] [phone] from Last 3 Months Insurance MEDICARE PART A & [place] [address] [address] MEDICARE ENHANCE SUPPLEMENT [facility] Address: [facility] [id number] [address] MEDICARE PART A & [place] [address] [address] MEDICARE ENHANCE SUPPLEMENT MEDICARE PART A & B [facility] MEDICARE ENHANCE SUPPLEMENT MEDICARE PART A & B [facility] MEDICARE ENHANCE SUPPLEMENT [facility] Address: [phone] [place] [address] MEDICARE PART A & [address] [place], [place] [address] MEDICARE ENHANCE SUPPLEMENT [facility] Address: [facility] [id number] [address] MEDICARE PART A & B [facility] MEDICARE ENHANCE SUPPLEMENT Care Teams Wildlife Science Professor Relationship Specialty Start Date End Date Pcp, Unknown PCP - General 08/05/24 Additional Source Comments The information contained in this document represents components of the legal health record. It is not the complete legal health record.[facility]
--- OUTSIDE RECORDS SUMMARY | 2025-05-14 15:11 | XMS_ITS | Encounter Summary ---
Author Organization [facility] Address [address] [place] [address] Care Team Providers Care After School Program Director Name Role Phone Mario Berrios MD Primary Care Provider [phone] Encounter Details Date Type Department Care Team (Late st Contact Info) Description 04/23/2025 Lab Requisition [facility] - Main Lab [address] [facility] [place] [address] Mario Berrios MD [address] [place] [address] Diarrhea, unspecified Social History Tobacco Use Types Packs/Day Years Used Date Smoking Tobacco: Never Assessed Comments Unknown Sex and Gender Information Value Date Recorded Sex Assigned at Not on file Legal Sex Female 11:01 AM EDT Gender Identity Not on file Sexual Orientation Not on file documented as of this encounter Plan of Treatment Not on file documented as of this encounter Visit Diagnoses Diagnosis Diarrhea, unspecified documented in this encounter Care Teams After School Program Director Relationship Specialty Start Date End Date Mario Berrios MD [address] [place] [address] PCP - General Internal Medicine 04/04/25 documented as of this encounter
== END 2025-05-14 16:02 | disposition home or self-care (01) ==
LOC: HO.HMCC 14:31
PROVIDERS: PCP Internal Medicine; Visit Provider Internal Medicine
DX: I48.0 Paroxysmal atrial fibrillation (principal); E87.1 Hypo-osmolality and hyponatremia; C90.00 Multiple myeloma not having achieved remission; E11.9 Type 2 diabetes mellitus without complications; Z13.9 Encounter for screening, unspecified

== ENCOUNTER 2025-05-14 14:30 | Outpatient (REF) | payer MEDICARE, OTHER, SELFPAY ==
[2025-05-14 16:40] LABS: MANUAL DIFF FLAG NO
[2025-05-14 17:03] LABS: Hematocrit 36.8 % (37.0-47.0); Hemoglobin 12.4 g/dl (12.0-16.0); Imm Gran Abs Auto 0.09 X10*3/uL (0.00-0.03); Imm Gran Pct Auto 1.0 % (0.0-0.4); Lymphocytes Absolute Auto 1.6 X10*3/uL (1.2-4.9); Mean Corpuscular HGB Conc 33.7 g/dl (31.0-35.0); Mean Corpuscular Hemoglobin 30.9 pg (27.0-33.0); Mean Corpuscular Volume 91.8 fL (80.0-98.0); NRBC Abs Auto 0.000 X10*3/uL (0.0-0.012); NRBC Pct Auto 0.0 /100WBC (0.0-0.2); Platelet Count 299 X10*3/uL (160-400); Red Blood Count 4.01 X10*6/uL (4.20-5.50); White Blood Count 9.1 X10*3/uL (4.8-10.8)
[2025-05-14 17:53] LABS: Alanine Aminotransferase 54 U/L (0-31); Albumin Level 3.2 g/dL (3.5-5.0); Alkaline Phosphatase 267 U/L (39-117); Anion Gap 13 (12-20); Aspartate Amino Transferase 39 U/L (5-31); Blood Urea Nitrogen 16 mg/dL (9-16); Calcium 8.1 mg/dL (8.4-10.2); Carbon Dioxide 23 mmol/L (22-29); Chloride 97 mmol/L (96-108); Estimated Glomerular Filt Rate > 60; Iron 42 mcg/dL (30-160); Percent Iron Saturation 21 % (15-50); Potassium 4.2 mmol/L (3.3-5.1); Sodium 129 mmol/L (135-145); Total Iron Binding Capacity 200 mcg/dL (228-428); Total Protein 6.2 g/dL (6.5-8.0); Unsaturated Iron Binding 158 ug/dL
== END 2025-05-14 14:31 | disposition home or self-care (01) ==
LOC: HO.LAB 14:30
PROVIDERS: PCP Internal Medicine; Visit Provider Internal Medicine
DX: I48.0 Paroxysmal atrial fibrillation (principal); E78.5 Hyperlipidemia, unspecified; R73.9 Hyperglycemia, unspecified; E87.1 Hypo-osmolality and hyponatremia; C90.00 Multiple myeloma not having achieved remission; E11.9 Type 2 diabetes mellitus without complications; Z79.01 Long term (current) use of anticoagulants; Z79.899 Other long term (current) drug therapy
CPT/HCPCS: 36415; 80053; 82948; 83036; 83540; 84443; 85025; 99212

== ENCOUNTER 2025-05-22 13:56 | Inpatient (IN) | payer MEDICARE, OTHER, SELFPAY ==
[2025-05-22] VITALS (9 sets, daily range): BP systolic 102–139; BP diastolic 58–86; PULSE 98–144; RESP 12–20; TEMP 36.8–37.1; O2SAT 95–99; BMI 24.1
--- NOTE | ~2025-05-22 | CT_ITS ---
CLINICAL HISTORY: dyspnea, tachcyardia, pleuritic chest pain CT angiography chest with contrast. 3D Postprocessing. Comparison: CR/SR - XR CHEST 1 VIEW - 05/22/25 14:[address]/OR/SR - CT ABDOMEN PELVIS W IV CON - 11/27/24 18:34 EDT Findings: Mild cardiomegaly. Normal RV/LV ratio. Aortic atherosclerosis with ascending aorta measuring 3.8 x 3.7 cm. No acute pulmonary embolus. Heterogeneous thyroid gland with 1.3 cm nodule posterior to the left thyroid lobe. No enlarged mediastinal or hilar lymph nodes. Moderate right and small left pleural effusion. Mild bibasilar dependent opacities favoring atelectasis. Mosaic attenuation likely from expiratory phase imaging. No pneumothorax. Left simple and hemorrhagic renal cysts. No acute findings in the visualized upper abdomen. Degenerative changes of the spine. Lytic lesion in the posterior T9 vertebral body and left pedicle. Diffuse heterogeneous attenuation of the rest of the spine and ribs. Moderate T12 and mild T11 superior endplate compression fractures, progressed from prior. IMPRESSION: 1. No acute pulmonary embolus. 2. Moderate right and small left pleural effusion with mild bibasilar dependent opacities, likely atelectasis. 3. Lytic lesion in the posterior T9 vertebral body and pedicle concerning for metastasis. 4. Moderate T12 and mild T11 superior endplate compression fractures, progressed from prior. 5. 1.3 cm nodule posterior to the left thyroid lobe. Consider nonemergent ultrasound for further evaluation. This document has been electronically signed by: Karina Apple MD on 05/22/2025 18:50:03
--- NOTE | ~2025-05-22 | XR_ITS ---
EXAMINATION: XR CHEST CLINICAL INFORMATION: SOB and chest pain COMPARISON: November 16, 2024 TECHNIQUE: Frontal view of the chest was obtained. FINDINGS: There is new left basilar opacity partially obscuring the left hemidiaphragm. There is groundglass density in the medial right lung base and tenting of the right hemidiaphragm. Right axillary surgical clips are present. XR/XR chest 1V IMPRESSION: Left basilar opacity raises concern for pneumonia but could represent atelectasis. Changes in the right lung base are probably related to atelectasis, though pneumonia is not ruled out. Electronically signed by: Randy Solano MD 05/22/2025 03:03 PM EDT RP
--- NOTE | 2025-05-22 14:02 | ECG_ITS ---
Test Reason : CP Blood Pressure : */* mmHG Vent. Rate : 124 BPM Atrial Rate : * BPM P-R Int : * ms QRS Dur : 130 ms QT Int : 348 ms P-R-T Axes : * 25 255 degrees QTcB Int : 499 ms Atrial fibrillation with rapid ventricular response Right bundle branch block T wave abnormality, consider inferolateral ischemia Abnormal ECG When compared with ECG of 17-Nov-2024 00:22, Non-specific change in ST segment in Lateral leads T wave inversion less evident in Inferior leads T wave inversion now evident in Lateral leads Referred By: Generic ED Physician Electronically Signed By: Toy Orourke
--- OUTSIDE RECORDS SUMMARY | 2025-05-22 14:47 | XMS_ITS | Clinical Summary ---
Author Organization [facility] Address [address] [facility] [address] [place] [phone] Phone Care Team Providers Care Piano Technician Name Role Phone Pcp, Unknown Primary Care [...] - 03/30/2025 11:59 PM EDT Hospital Encounter [facility] Laboratory [address] [place] [address] Walt Cruz MD Discharge Disposition: Home or Self Care 03/30/2025 Transcribe Orders [facility] Specimen Processing [address] [place] [address] Walt Cruz MD Hypertension, unspecified type (Primary [...] EDT) SODIUM 131(L) 133 - 146 mmol/L [facility] POTASSIUM 4.6 3.3 - 5.1 mmol/L [facility] CHLORIDE 92(L) 96 - 108 mmol/L [facility] CO2 30 21 - 35 mmol/L [facility] BUN 30(H) 6 - 19 mg/dL [facility] CREATININE 0.50 0.5 - 1.5 mg/dL [facility] GLUCOSE 123(H) 70 - 99 mg/dL [facility] ALBUMIN 3.3(L) 3.9 - 4.8 g/dL [facility] TOTAL PROTEIN 5.4(L) 6.5 - 8.0 g/dL [facility] CALCIUM 8.5 8.4 - 10.3 mg/dL [facility] ALKALINE PHOSPHATASE 53 39 - 117 U/L [facility] TOTAL BILIRUBIN 1.8(H) 0.0 - 1.2 mg/dL [facility] AST 14 0 - 37 U/L [facility] ALT 32 0 - 40 U/L [facility] GLOBULIN 2.1 1 - 4.8 g/dL [facility] EGFR 92 >59 mL/min/1.7 3m2 [facility] Comment:Estimated glomerular filtration rate calculated using the CKD-EPI refit equation. ANION GAP 14 10 - 20 mmol/L [facility] 03/30/2025 5:51 AM EDT 03/30/2025 10:16 AM EDT us Walt Cruz MD LAB BLOOD ORDERABLES Final Resul t Performing Organization Address [facility]/ZIP Co de Phone Number [address] [address] * (ABNORMAL) CBC (03/30/2025 5:51 AM EDT) WBC 13.24(H) 4.00 - 11.00 K/uL [facility] RBC 4.47 4.00 - 5.20 M/uL [facility] HGB 13.9 12.0 - 16.0 g/dL [facility] HCT 42.0 36.0 - 46.0 % [facility] PLT 182 150 - 450 K/uL [facility] MCV 94.0 80.0 - 100.0 fL [facility] MCH 31.1(H) 27.0 - 31.0 pg [facility] MCHC 33.1 32.0 - 36.0 g/dL [facility] RDW 14.6(H) 11.5 - 14.5 % [facility] MPV 11.7 8.4 - 12.0 fL [facility] NRBC 0.00 0.00 /100 WBCs [facility] ABSOLUTE NRBC 0.00 0.00 K/uL [facility] 03/30/2025 5:51 AM EDT 03/30/2025 10:16 AM EDT us Walt Cruz MD LAB BLOOD ORDERABLES Final Resul t Performing Organization Address City[facility]/ZIP Co de Phone Number [address] [address] from Last 3 Months Insurance MEDICARE PART A & [place] [address] [place] [address] MEDICARE ENHANCE SUPPLEMENT [facility] Address: [facility] [address] [place] [id number] MEDICARE PART A & [place] [address] MEDICARE ENHANCE SUPPLEMENT MEDICARE PART A & B [facility] MEDICARE ENHANCE SUPPLEMENT MEDICARE PART A & B [facility] MEDICARE ENHANCE SUPPLEMENT [facility] Address: [address] [place] [id number] MEDICARE PART A & [address] [place], [place] [address] MEDICARE ENHANCE SUPPLEMENT [facility] Address: [facility] [id number] [place] [id number] MEDICARE PART A & B [facility] MEDICARE ENHANCE SUPPLEMENT Care Teams Piano Technician Relationship Specialty Start Date End Date Pcp, Unknown PCP - General 08/05/24 Additional Source Comments The information contained in this document represents components of the legal health record. It is not the complete legal health record.[facility]
--- OUTSIDE RECORDS SUMMARY | 2025-05-22 14:47 | XMS_ITS | Encounter Summary ---
Author Organization [facility] Address [address] [place] [address] Care Team Providers Care Customer Support Engineer Name Role Phone Mario Berrios MD Primary Care Provider [phone] Encounter Details Date Type Department Care Team (Late st Contact Info) Description 04/12/2025 Lab Requisition [facility] - Main Lab [address] [facility] [employer] [place] [address] Mario Berrios MD [address] [place] [phone] Essential (primary) hypertension Social History Tobacco Use [...] AM EDT) WBC 8.1 4.8 - 10.8 K/[facility] LAB HEMETOLOGY METHOD 04/13/2025 11:31 AM EDT [facility] LAB RBC 4.00 3.80 - 4.80 M/[facility] LAB HEMETOLOGY METHOD 04/13/2025 11:31 AM EDT [facility] LAB Hemoglobin 12.5 11.5 - 16.0 g/dL LAB HEMETOLOGY METHOD 04/13/2025 11:31 AM [facility] LAB Hematocrit 37.3 35.0 - 47.0 % LAB HEMETOLOGY METHOD 04/13/2025 11:31 AM [facility] LAB MCV 92.8 79.0 - 98.0 FL LAB HEMETOLOGY METHOD 04/13[facility]25 [facility] MCH 31.1 27.0 - 32.0 pcg LAB HEMETOLOGY METHOD 04/13/2025 11:31 AM [facility] LAB MCHC 33.5 32.0 - 37.0 g/dL LAB HEMETOLOGY METHOD 04/13/2025 11:31 AM [facility] LAB RDW 16.3(H) 11.0 - 15.0 % LAB HEMETOLOGY METHOD 04/13/2025 11:31 AM [facility] LAB Platelets 122(L) 130 - 400 K/mcL LAB HEMETOLOGY METHOD 04/13/2025 11:31 AM [facility] LAB MPV 12.1(H) 7.0 - 11.0 FL LAB HEMETOLOGY METHOD 04/13/2025 11:31 AM [facility] LAB NRBC 0.0 <1.0 % LAB HEMETOLOGY METHOD 04/13/2025 11:31 AM [facility] LAB NRBC Absolute 0.00 <0.10 K/mcL LAB HEMETOLOGY METHOD 04/13/2025 11:31 AM [facility] LAB Blood Venous blood specimen / Unknown Venipuncture / Unknown 04/13/2025 8:37 AM EDT 04/13/2025 10:16 AM EDT us Mario Berrios MD LAB BLOOD ORDERABLES Final Resu lt [facility] LAB [address] [place] [address], [place] [phone] * (ABNORMAL) Comprehensive metabolic panel (04/13/2025 8:37 AM EDT) Sodium 133 133 - 145 mmol/L LAB CHEMISTRY METHOD 04/13/2025 11:42 AM [facility] LAB Potassium 3.6 3.5 - 5.5 mmol/L LAB CHEMISTRY METHOD 04/13/2025 11:42 AM [facility] LAB Chloride 98 96 - 110 mmol/L LAB CHEMISTRY METHOD 04/13/2025 11:42 AM [facility] LAB CO2 26 21 - 32 mmol/L LAB CHEMISTRY METHOD 04/13/2025 11:42 AM [facility] LAB Anion Gap 9 3 - 11 LAB CHEMISTRY METHOD 04/13/2025 11:42 AM [facility] LAB Glucose 122(H) 70 - 100 mg/dL LAB CHEMISTRY METHOD 04/13/2025 11:42 AM [facility] LAB BUN 16 5 - 25 mg/dL LAB CHEMISTRY METHOD 04/13/2025 11:42 AM [facility] LAB Creatinine 0.59 0.50 - 1.10 mg/dL LAB CHEMISTRY METHOD 04/13/2025 11:42 AM [facility] LAB eGFR 88 >=60 mL/min/1. 73m2 LAB CHEMISTRY METHOD 04/13/2025 11:42 AM [facility] LAB Comment:Calculation based on the Chronic Kidney Disease Epidemiology Collaboration (CKD-EPI) equation refit without adjustment for race. BUN/Creatinine Ratio 27.1 LAB CHEMISTRY METHOD 04/13/2025 11:42 AM [facility] LAB Calcium 8.3(L) 8.5 - 10.5 mg/dL LAB CHEMISTRY METHOD 04/13/2025 11:42 AM [facility] LAB AST (SGOT) 38 10 - 42 unit/L LAB CHEMISTRY METHOD 04/13/2025 11:42 AM [facility] LAB ALT (SGPT) 110(H) 10 - 60 unit/L LAB CHEMISTRY METHOD 04/13/2025 11:42 AM [facility] LAB Alkaline Phosphatase 170(H) 42 - 121 unit/L LAB CHEMISTRY METHOD 04/13/2025 11:42 AM T [facility] LAB Total Protein 5.3(L) 6.0 - 8.0 g/dL LAB CHEMISTRY METHOD 04/13/2025 11:42 AM [facility] LAB Albumin 2.8(L) 3.2 - 5.0 g/dL LAB CHEMISTRY METHOD 04/13/2025 11:42 AM [facility] LAB Total Bilirubin 1.0 0.0 - 1.4 mg/dL LAB CHEMISTRY METHOD 04/13/2025 11:42 AM [facility] LAB Blood Venous blood specimen / Unknown Venipuncture / Unknown 04/13/2025 8:37 AM EDT 04/13/2025 10:18 AM EDT Mario Berrios MD LAB BLOOD ORDERABLES Final Resu lt [facility] LAB [address] [place] [address], documented in this encounter Visit Diagnoses Diagnosis Essential (primary) hypertension Unspecified essential hypertension documented in this encounter Care Teams Customer Support Engineer Relationship Specialty Start Date End Date Mario Berrios MD [address] [place] [address] PCP - General Internal Medicine 04/04/25 documented as of this encounter
--- OUTSIDE RECORDS SUMMARY | 2025-05-22 14:47 | XMS_ITS | Encounter Summary ---
Author Organization [facility] Address [address] [place] [address] Care Team Providers Care Management Lead Name Role Phone Mario Berrios MD Primary Care Provider [phone] Encounter Details Date Type Department Care Team (Late st Contact Info) Description 04/06/2025 Lab Requisition [facility] - Main Lab [address] [place] [address] Mario Berrios MD [address] [place] [phone] Essential (primary) hypertension Social History Tobacco Use [...] LAB CHEMISTRY METHOD 04/06/2025 1:16 PM T [facility] LAB Potassium 5.8(H) 3.5 - 5.5 mmol/L LAB CHEMISTRY METHOD 04/06/2025 1:16 PM EDT [facility] LAB Comment:Hemolysis present Chloride 96 96 - 110 mmol/L LAB CHEMISTRY METHOD 04/06/2025 1:16 PM [facility] LAB CO2 24 21 - 32 mmol/L LAB CHEMISTRY METHOD 04/06/2025 1:16 PM [facility] LAB Anion Gap 10 3 - 11 LAB CHEMISTRY METHOD 04/06/2025 1:16 PM [facility] LAB Glucose 97 70 - 100 mg/dL LAB CHEMISTRY METHOD 04/06/2025 1:16 PM [facility] BUN 20 5 - 25 mg/dL LAB CHEMISTRY METHOD 04/06/2025 1:16 PM [facility] LAB Creatinine 0.65 0.50 - 1.10 mg/dL LAB CHEMISTRY METHOD 04/06/2025 1:16 PM [facility] LAB eGFR 86 >=60 mL/min/1. 73m2 LAB CHEMISTRY METHOD 04/06/2025 1:16 PM [facility] Comment:Calculation based on the Chronic Kidney Disease Epidemiology Collaboration (CKD-EPI) equation refit without adjustment for race. BUN/Creatinine Ratio 30.8 LAB CHEMISTRY METHOD 04/06/2025 1:16 PM [facility] Calcium 8.6 8.5 - 10.5 mg/dL LAB CHEMISTRY METHOD 04/06/2025 1:16 PM [facility] AST (SGOT) 28 10 - 42 unit/L LAB CHEMISTRY METHOD 04/06/2025 1:16 PM [facility] Comment:Hemolysis present ALT (SGPT) 34 10 - 60 unit/L LAB CHEMISTRY METHOD 04/06/2025 1:16 PM [facility] Alkaline Phosphatase 78 42 - 121 unit/L LAB CHEMISTRY METHOD 04/06/2025 1:16 PM [facility] Total Protein 5.7(L) 6.0 - 8.0 g/dL LAB CHEMISTRY METHOD 04/06/2025 1:16 PM [facility] Albumin 3.0(L) 3.2 - 5.0 g/dL LAB CHEMISTRY METHOD 04/06/2025 1:16 PM EDT [facility] Total Bilirubin 0.8 0.0 - 1.4 mg/dL LAB CHEMISTRY METHOD 04/06/2025 1:16 PM EDT [facility] Blood Venous blood specimen / Unknown Venipuncture / Unknown 04/06/2025 5:18 AM EDT 04/06/2025 10:40 AM EDT us Mario Berrios MD LAB BLOOD ORDERABLES Final Resu lt [facility] [address] [place] [address], [place] [phone] * (ABNORMAL) Complete blood count (04/06/2025 5:18 AM EDT) WBC 10.8 4.8 - 10.8 K/mcL LAB HEMETOLOGY METHOD 04/06/2025 11:40 AM [facility] RBC 4.00 3.80 - 4.80 M/mcL LAB HEMETOLOGY METHOD 04/06/2025 11:40 AM [facility] Hemoglobin 12.4 11.5 - 16.0 g/dL LAB HEMETOLOGY METHOD 04/06/2025 11:40 AM [facility] Hematocrit 38.3 35.0 - 47.0 % LAB HEMETOLOGY METHOD 04/06/2025 11:40 AM T [facility] LAB MCV 95.8 79.0 - 98.0 FL LAB HEMETOLOGY METHOD 04/06/2025 11:40 AM [facility] LAB MCH 31.0 27.0 - 32.0 pcg LAB HEMETOLOGY METHOD 04/06/2025 11:40 AM [facility] MCHC 32.4 32.0 - 37.0 g/dL LAB HEMETOLOGY METHOD 04/06/2025 11:40 AM EDT [facility] RDW 15.3(H) 11.0 - 15.0 % LAB HEMETOLOGY METHOD 04/06/2025 11:40 AM EDT [facility] Platelets 166 130 - 400 K/mcL LAB HEMETOLOGY METHOD 04/06/2025 11:40 AM EDT [facility] MPV 12.4(H) 7.0 - 11.0 FL LAB HEMETOLOGY METHOD 04/06/2025 11:40 AM EDT [facility] NRBC 0.0 <1.0 % LAB HEMETOLOGY METHOD 04/06/2025 11:40 AM EDT [facility] NRBC Absolute 0.00 <0.10 K/mcL LAB HEMETOLOGY METHOD 04/06/2025 11:40 AM EDT [facility] Blood Venous blood specimen / Unknown Venipuncture / Unknown 04/06/2025 5:18 AM EDT 04/06/2025 10:40 AM EDT Mario Berrios MD LAB BLOOD ORDERABLES Final Resu lt [facility] [address] [place] [address], documented in this encounter Visit Diagnoses Diagnosis Essential (primary) hypertension Unspecified essential hypertension documented in this encounter Care Teams Management Lead Relationship Specialty Start Date End Date Mario Berrios MD [address] [place] [address] PCP - General Internal Medicine 04/04/25 documented as of this encounter
--- OUTSIDE RECORDS SUMMARY | 2025-05-22 14:47 | XMS_ITS | Encounter Summary ---
Author Organization [facility] Address [address] [place] [address] Care Team Providers Care Real Estate Manager Name Role Phone Mario Berrios MD Primary Care Provider [phone] Encounter Details Date Type Department Care Team (Late st Contact Info) Description 04/04/2025 Lab Requisition [facility] - Main Lab [address] [facility] [place] [address] Mario Berrios MD [address] [place] [address] [phone] Essential (primary) hypertension Social History Tobacco Use [...] LAB CHEMISTRY METHOD 04/04/2025 1:38 PM EDT [facility] Potassium 5.0 3.5 - 5.5 mmol/L LAB CHEMISTRY METHOD 04/04/2025 1:38 PM EDT [facility] Chloride 94(L) 96 - [...] LAB CHEMISTRY METHOD 04/04/2025 1:38 PM EDT [facility] Total Bilirubin 0.9 0.0 - 1.4 mg/dL LAB CHEMISTRY METHOD 04/04/2025 1:38 PM EDT [facility] Blood Venous blood specimen / Unknown Venipuncture / Unknown 04/04/2025 8:27 AM EDT 04/04/2025 12:53 PM EDT us Mario Berrios MD LAB BLOOD ORDERABLES Final Resu lt [facility] [address] [place] [address], [place] [phone] * (ABNORMAL) Complete blood count (04/04/2025 8:27 AM EDT) WBC 11.0(H) 4.8 - 10.8 K/mcL LAB HEMETOLOGY METHOD 04/04/2025 1:20 PM EDT [facility] RBC 4.30 3.80 - 4.80 M/mcL LAB HEMETOLOGY METHOD 04/04/2025 1:20 PM EDT [facility] Hemoglobin 13.2 11.5 - 16.0 g/dL LAB HEMETOLOGY METHOD 04/04/2025 1:20 PM EDT [facility] Hematocrit 40.2 35.0 - 47.0 % LAB HEMETOLOGY METHOD 04/04/2025 1:20 PM EDT [facility] MCV 93.7 79.0 - 98.0 FL LAB HEMETOLOGY METHOD 04/04/2025 1:20 PM EDT [facility] MCH 30.8 27.0 - 32.0 pcg LAB HEMETOLOGY METHOD 04/04/2025 1:20 PM EDT [facility] MCHC 32.8 32.0 - 37.0 g/dL LAB HEMETOLOGY METHOD 04/04/2025 1:20 PM EDT [facility] RDW 15.3(H) 11.0 - 15.0 % LAB HEMETOLOGY METHOD 04/04/2025 1:20 PM EDT [facility] Platelets 179 130 - 400 K/mcL LAB HEMETOLOGY METHOD 04/04/2025 1:20 PM EDT [facility] MPV 11.9(H) 7.0 - 11.0 FL LAB HEMETOLOGY METHOD 04/04/2025 1:20 PM EDT [facility] NRBC 0.0 <1.0 % LAB HEMETOLOGY METHOD 04/04/2025 1:20 PM EDT [facility] NRBC Absolute 0.00 <0.10 K/mcL LAB HEMETOLOGY METHOD 04/04/2025 1:20 PM EDT [facility] Blood Venous blood specimen / Unknown Venipuncture / Unknown 04/04/2025 8:27 AM EDT 04/04/2025 12:53 PM EDT us Mario Berrios MD LAB BLOOD ORDERABLES Final Resu lt [facility] [address] [place] [address], documented in this encounter Visit Diagnoses Diagnosis Essential (primary) hypertension Unspecified essential hypertension documented in this encounter Care Teams Real Estate Manager Relationship Specialty Start Date End Date Mario Berrios MD [address] [place] [phone] PCP - General Internal Medicine 04/04/25 documented as of this encounter
--- OUTSIDE RECORDS SUMMARY | 2025-05-22 14:47 | XMS_ITS | Encounter Summary ---
Author Organization [facility] Address [address] [place] [address] Care Team Providers Care Contact Worker Name Role Phone Mario Berrios MD Primary Care Provider [phone] Encounter Details Date Type Department Care Team (Late st Contact Info) Description 04/23/2025 Lab Requisition [facility] - Main Lab [address] [facility] [place] [address] Mario Berrios MD [address] [place] [address] Diarrhea, unspecified Social History Tobacco [...] unspecified documented in this encounter Care Teams Contact Worker Relationship Specialty Start Date End Date Mario Berrios MD [address] [place] [address] PCP - General Internal Medicine 04/04/25 documented as of this encounter
--- OUTSIDE RECORDS SUMMARY | 2025-05-22 14:47 | XMS_ITS | Encounter Summary ---
Author Organization [facility] Address [address] [place] [address] Care Team Providers Care Wet Cotton Feeder Name Role Phone Mario Berrios MD Primary Care Provider [phone] Encounter Details Date Type Department Care Team (Late st Contact Info) Description 04/22/2025 Lab Requisition [facility] - Main Lab [address] [facility] [place] [address] Mario Berrios MD [address] [place] [address] [phone] Essential (primary) hypertension Social History Tobacco Use [...] LAB CHEMISTRY METHOD 04/23/2025 10:52 AM EDT [facility] Potassium 3.7 3.5 - 5.5 mmol/L LAB CHEMISTRY METHOD 04/23/2025 10:52 AM EDT [facility] Chloride 95(L) 96 - 110 mmol/L LAB CHEMISTRY METHOD 04/23/2025 10:52 AM [facility] CO2 33(H) 21 - 32 mmol/L LAB CHEMISTRY METHOD 04/23/2025 10:52 AM [facility] Anion Gap 5 3 - 11 LAB CHEMISTRY METHOD 04/23/2025 10:52 AM [facility] Glucose 88 70 - 100 mg/dL LAB CHEMISTRY METHOD 04/23/2025 10:52 AM [facility] BUN 9 5 - 25 mg/dL LAB CHEMISTRY METHOD 04/23/2025 10:52 AM [facility] Creatinine 0.60 0.50 - 1.10 mg/dL LAB CHEMISTRY METHOD 04/23/2025 10:52 AM [facility] eGFR 88 >=60 mL/min/1. 73m2 LAB CHEMISTRY METHOD 04/23/2025 10:52 AM [facility] Comment:Calculation based on the Chronic Kidney Disease Epidemiology Collaboration (CKD-EPI) equation refit without adjustment for race. BUN/Creatinine Ratio 15.0 LAB CHEMISTRY METHOD 04/23/2025 10:52 AM [facility] Calcium 7.4(L) 8.5 - 10.5 mg/dL LAB CHEMISTRY METHOD 04/23/2025 10:52 AM [facility] Blood Venous blood specimen / Unknown Venipuncture / Unknown 04/23/2025 5:52 AM EDT 04/23/2025 9:52 AM EDT us Mario Berrios MD LAB BLOOD ORDERABLES Final Resu lt [facility] [address] [place] [address], * (ABNORMAL) Complete blood count (04/23/2025 5:52 AM EDT) WBC 6.0 4.8 - 10.8 K/mcL LAB HEMETOLOGY METHOD 04/23/2025 10:13 AM [facility] RBC 4.00 3.80 - 4.80 M/mcL LAB HEMETOLOGY METHOD 04/23/2025 10:13 AM [facility] Hemoglobin 12.6 11.5 - 16.0 g/dL LAB HEMETOLOGY METHOD 04/23/2025 10:13 AM [facility] Hematocrit 37.6 35.0 - 47.0 % LAB HEMETOLOGY METHOD 04/23/2025 10:13 AM [facility] MCV 93.5 79.0 - 98.0 FL LAB HEMETOLOGY METHOD 04/23/2025 10:13 AM [facility] MCH 31.3 27.0 - 32.0 pcg LAB HEMETOLOGY METHOD 04/23/2025 10:13 AM [facility] MCHC 33.5 32.0 - 37.0 g/dL LAB HEMETOLOGY METHOD 04/23/2025 10:13 AM [facility] RDW 16.2(H) 11.0 - 15.0 % LAB HEMETOLOGY METHOD 04/23/2025 10:13 AM [facility] Platelets 157 130 - 400 K/mcL LAB HEMETOLOGY METHOD 04/23/2025 10:13 AM [facility] MPV 11.1(H) 7.0 - 11.0 FL LAB HEMETOLOGY METHOD 04/23/2025 10:13 AM [facility] NRBC 0.0 <1.0 % LAB HEMETOLOGY METHOD 04/23/2025 10:13 AM [facility] NRBC Absolute 0.00 <0.10 K/mcL LAB HEMETOLOGY METHOD 04/23/2025 10:13 AM [facility] Blood Venous blood specimen / Unknown Venipuncture / Unknown 04/23/2025 5:52 AM EDT 04/23/2025 9:50 AM EDT Mario Berrios MD LAB BLOOD ORDERABLES Final Resu lt [facility] [address] [place] [address], documented in this encounter Visit Diagnoses Diagnosis Essential (primary) hypertension Unspecified essential hypertension documented in this encounter Care Teams Wet Cotton Feeder Relationship Specialty Start Date End Date Mario Berrios MD [address] [place] [address] PCP - General Internal Medicine 04/04/25 documented as of this encounter
--- OUTSIDE RECORDS SUMMARY | 2025-05-22 14:47 | XMS_ITS | Encounter Summary ---
Author Organization [facility] Address [address] [place] [address] Care Team Providers Care Casing Blower Name Role Phone Mario Berrios MD Primary Care Provider [phone] Encounter Details Date Type Department Care Team (Late st Contact Info) Description 04/17/[address] [facility] - Main Lab [address] [facility] [place] [address] Mario Berrios MD [address] [place] [address] [phone] Essential (primary) hypertension Social History Tobacco Use [...] AM EDT) WBC 6.2 4.8 - 10.8 K/[facility] LAB HEMETOLOGY METHOD 04/20/2025 11:57 AM EDT [facility] LAB RBC 4.00 3.80 - 4.80 M/[facility] LAB HEMETOLOGY METHOD 04/20/2025 11:57 AM EDT [facility] LAB Hemoglobin 12.5 11.5 - 16.0 g/dL LAB HEMETOLOGY METHOD 04/20/2025 11:57 AM EDT [facility] LAB Hematocrit 37.7 35.0 - 47.0 % LAB HEMETOLOGY METHOD 04/20/2025 11:57 AM EDT [facility] LAB MCV 94.3 79.0 - 98.0 FL LAB HEMETOLOGY METHOD 04/20/2025 11:57 AM EDT [facility] LAB MCH 31.3 27.0 - 32.0 pcg LAB HEMETOLOGY METHOD 04/20/2025 11:57 AM EDT [facility] LAB MCHC 33.2 32.0 - 37.0 g/dL LAB HEMETOLOGY METHOD [facility] RDW 16.7(H) 11.0 - 15.0 % LAB HEMETOLOGY METHOD 04/20/2025 11:57 AM EDT [facility] LAB Platelets 153 130 - 400 K/mcL LAB HEMETOLOGY METHOD 04/20/2025 11:57 AM EDT [facility] LAB MPV 11.5(H) 7.0 - 11.0 FL LAB HEMETOLOGY METHOD 04/20/2025 11[facility] NRBC 0.0 <1.0 % LAB HEMETOLOGY METHOD 04/20/2025 11:57 AM EDT [facility] LAB NRBC Absolute 0.00 <0.10 K/mcL LAB HEMETOLOGY METHOD 04/20/2025 11[facility] Blood Venous blood specimen / Unknown Venipuncture / Unknown 04/20/2025 5:25 AM EDT 04/20/2025 10:56 AM EDT us Mario Berrios MD LAB BLOOD ORDERABLES Final Resu lt [facility] [address] [place] [address], * (ABNORMAL) Comprehensive metabolic panel (04/20/2025 5:25 AM EDT) Sodium 134 133 - 145 mmol/L LAB CHEMISTRY METHOD 04/20[facility]2025 [facility] Potassium 4.1 3.5 - 5.5 mmol/L LAB CHEMISTRY METHOD 04/20/2025 1:10 PM T [facility] LAB Comment:Hemolysis present Chloride 96 96 - 110 mmol/L LAB CHEMISTRY METHOD 04/20/2025 1:10 PM [facility] LAB CO2 30 21 - 32 mmol/L LAB CHEMISTRY METHOD 04/20/2025 1:10 PM [facility] LAB Anion Gap 8 3 - 11 LAB CHEMISTRY METHOD 04/20/2025 1:10 PM [facility] LAB Glucose 84 70 - 100 mg/dL LAB CHEMISTRY METHOD 04/20/2025 1:10 PM [facility] BUN 14 5 - 25 mg/dL LAB CHEMISTRY METHOD 04/20/2025 1:10 PM [facility] Creatinine 0.56 0.50 - 1.10 mg/dL LAB CHEMISTRY METHOD 04/20[facility]2025 [facility] eGFR 90 >=60 mL/min/1. 73m2 LAB CHEMISTRY METHOD 04/20/2025 1:10 PM [facility] LAB Comment:Calculation based on the Chronic Kidney Disease Epidemiology Collaboration (CKD-EPI) equation refit without adjustment for race. BUN/Creatinine Ratio 25.0 LAB CHEMISTRY METHOD 04/20/2025 1:10 PM [facility] LAB Calcium 8.1(L) 8.5 - 10.5 mg/dL LAB CHEMISTRY METHOD 04/20/2025 1:10 PM [facility] LAB AST (SGOT) 35 10 - 42 unit/L LAB CHEMISTRY METHOD 04/20/2025 1:10 PM EDT [facility] LAB Comment:Hemolysis present ALT (SGPT) 69(H) 10 - 60 unit/L LAB CHEMISTRY METHOD 04/20/2025 1:10 PM EDT [facility] Alkaline Phosphatase 156(H) 42 - 121 unit/L LAB CHEMISTRY METHOD 04/20/2025 1:10 PM EDT [facility] Total Protein 5.3(L) 6.0 - 8.0 g/dL LAB CHEMISTRY METHOD 04/20/2025 1:10 PM EDT [facility] Albumin 2.7(L) 3.2 - 5.0 g/dL LAB CHEMISTRY METHOD 04/20/2025 1:10 PM EDT [facility] Total Bilirubin 2.1(H) 0.0 - 1.4 mg/dL LAB CHEMISTRY METHOD 04/20/2025 1:10 PM EDT [facility] LAB Comment:Results verified by repeat testing Blood Venous blood specimen / Unknown Venipuncture / Unknown 04/20/2025 5:25 AM EDT 04/20/2025 12:06 PM EDT Mario Berrios MD LAB BLOOD ORDERABLES Final Resu lt [facility] [address] [place] [address], documented in this encounter Visit Diagnoses Diagnosis Essential (primary) hypertension Unspecified essential hypertension documented in this encounter Care Teams Casing Blower Relationship Specialty Start Date End Date Mario Berrios MD [address] [place] [phone] PCP - General Internal Medicine 04/04/25 documented as of this encounter
--- OUTSIDE RECORDS SUMMARY | 2025-05-22 14:48 | XMS_ITS | Encounter Summary ---
Author Organization [facility] Address [address] [place] [address] Care Team Providers Care Seam Rubber Name Role Phone Mario Berrios MD Primary Care Provider [phone] Encounter Details Date Type Department Care Team (Late st Contact Info) Description 05/09/2025 Lab Requisition [facility] - Main Lab [address] [facility] [place] [address] Mario Berrios MD [address] [place] [address] Essential (primary) hypertension Social History [...] hypertension documented in this encounter Care Teams Seam Rubber Relationship Specialty Start Date End Date Mario Berrios MD [address] [place] [address] PCP - General Internal Medicine 04/04/25 documented as of this encounter
--- OUTSIDE RECORDS SUMMARY | 2025-05-22 14:48 | XMS_ITS | Patient Health Record ---
Author Organization [facility] Address [address] [place] [address] Care Team Providers Care Screen Printing Stencil Preparer Name Role Phone Owen VIEYRA, Ora Primary Care Provider Unavailab Karol Yanes Unavailable [phone] Reason For Referral No Information Medications Medication [...] Treatment Pending Test Test Name Order Date 41549,[id number] TENDON SHEATH/LIGAMENT 0 11/27/2019 Insurance Providers Payer Name Payer Address Payer Phone Subscriber Number Group Number Insured Name Patient Relationship to Insured Coverage Start Date Coverage End Date Medicare [facility] [employer] [address] [facility] [place] [address] [id number] Yesenia Fisher Self - patient is the insured [facility] [address] [place] [phone] [id number] Yesenia Fisher Self - patient is the insured Medical (General) History Medical History History ICD Code Reflux Measles breast cancer Mumps Surgical History Surgery Date(Month/Year) cancer surgery 07/1992 varicose vein stripping 1974 hysterectomy 1989
--- OUTSIDE RECORDS SUMMARY | 2025-05-22 14:48 | XMS_ITS | Encounter Summary ---
Author Organization [facility] Address [address] [place] [address] Care Team Providers Care Agricultural Research Technician Name Role Phone Mario Berrios MD Primary Care Provider [phone] Encounter Details Date Type Department Care Team (Late st Contact Info) Description 04/24/2025 Lab Requisition [facility] - Main Lab [address] [facility] [place] [address] Mario Berrios MD [address] [place] [address] [phone] Essential (primary) hypertension Social History Tobacco Use [...] AM EDT) WBC 6.1 4.8 - 10.8 K/[facility] LAB HEMETOLOGY METHOD 04/27/2025 1:16 PM EDT [facility] RBC 4.20 3.80 - 4.80 M/[facility] LAB HEMETOLOGY METHOD 04/27/2025 1:16 PM EDT [facility] LAB Hemoglobin 12.9 11.5 - 16.0 g/dL LAB HEMETOLOGY METHOD 04/27/2025 1:16 PM EDT [facility] LAB Hematocrit 39.2 35.0 - 47.0 % LAB HEMETOLOGY METHOD 04/27/2025 1:16 PM EDT [facility] LAB MCV 94.0 79.0 - 98.0 FL LAB HEMETOLOGY METHOD 04/27/2025 1:16 PM EDT [facility] LAB MCH 30.9 27.0 - 32.0 pcg LAB HEMETOLOGY METHOD 04/27/2025 1:16 PM EDT [facility] LAB MCHC 32.9 32.0 - 37.0 g/dL LAB HEMETOLOGY METHOD 04/27/2025 1:16 PM EDT [facility] LAB RDW 16.2(H) 11.0 - 15.0 % LAB HEMETOLOGY METHOD 04/27/2025 1:16 PM EDT [facility] LAB Platelets 173 130 - 400 K/mcL LAB HEMETOLOGY METHOD 04/27/2025 1:16 PM EDT [facility] LAB MPV 10.3 7.0 - 11.0 FL LAB HEMETOLOGY METHOD 04/27/2025 1:16 PM EDT [facility] LAB NRBC 0.0 <1.0 % LAB HEMETOLOGY METHOD 04/27/2025 1:16 PM EDT [facility] LAB NRBC Absolute 0.00 <0.10 K/mcL LAB HEMETOLOGY METHOD 04/27/2025 1:16 PM EDT [facility] Blood Venous blood specimen / Unknown Venipuncture / Unknown 04/27/2025 6:26 AM EDT 04/27/2025 11:51 AM EDT us Mario Berrios MD LAB BLOOD ORDERABLES Final Resu lt [facility] [address] [place] [address], * (ABNORMAL) Comprehensive metabolic panel (04/27/2025 6:26 AM EDT) Sodium 130(L) 133 - 145 mmol/L LAB CHEMISTRY METHOD 04/27/2025 1:02 PM [facility] Potassium 4.1 3.5 - 5.5 mmol/L LAB CHEMISTRY METHOD 04/27/2025 1:02 PM [facility] Chloride 94(L) 96 - 110 mmol/L LAB CHEMISTRY METHOD 04/27/2025 1:02 PM [facility] CO2 29 21 - 32 mmol/L LAB CHEMISTRY METHOD 04/27/2025 1:02 PM [facility] Anion Gap 7 3 - 11 LAB CHEMISTRY METHOD 04/27/2025 1:02 PM [facility] LAB Glucose 76 70 - 100 mg/dL LAB CHEMISTRY METHOD 04/27/2025 1:02 PM [facility] BUN 9 5 - 25 mg/dL LAB CHEMISTRY METHOD 04/27/2025 1:02 PM [facility] Creatinine 0.58 0.50 - 1.10 mg/dL LAB CHEMISTRY METHOD 04/27/2025 1:02 PM [facility] LAB eGFR 89 >=60 mL/min/1. 73m2 LAB CHEMISTRY METHOD 04/27/2025 1:02 PM [facility] LAB Comment:Calculation based on the Chronic Kidney Disease Epidemiology Collaboration (CKD-EPI) equation refit without adjustment for race. BUN/Creatinine Ratio 15.5 LAB CHEMISTRY METHOD 04/27/2025 1:02 PM [facility] LAB Calcium 8.1(L) 8.5 - 10.5 mg/dL LAB CHEMISTRY METHOD 04/27/2025 1:02 PM [facility] AST (SGOT) 19 10 - 42 unit/L LAB CHEMISTRY METHOD 04/27/2025 1:02 PM EDT [facility] ALT (SGPT) 34 10 - 60 unit/L LAB CHEMISTRY METHOD 04/27/2025 1:02 PM EDT [facility] LAB Alkaline Phosphatase 139(H) 42 - 121 unit/L LAB CHEMISTRY METHOD 04/27/2025 1:02 PM EDT [facility] Total Protein 5.4(L) 6.0 - 8.0 g/dL LAB CHEMISTRY METHOD 04/27/2025 1:02 PM EDT [facility] Albumin 2.7(L) 3.2 - 5.0 g/dL LAB CHEMISTRY METHOD 04/27/2025 1:02 PM [facility] Total Bilirubin 1.2 0.0 - 1.4 mg/dL LAB CHEMISTRY METHOD 04/27/2025 1:02 PM EDT [facility] Blood Venous blood specimen / Unknown Venipuncture / Unknown 04/27/2025 6:26 AM EDT 04/27/2025 11:51 AM EDT us Mario Berrios MD LAB BLOOD ORDERABLES Final Resu lt [facility] [address] [place] [address], documented in this encounter Visit Diagnoses Diagnosis Essential (primary) hypertension Unspecified essential hypertension documented in this encounter Care Teams Agricultural Research Technician Relationship Specialty Start Date End Date Mario Berrios MD [address] [place] [phone] PCP - General Internal Medicine 04/04/25 documented as of this encounter
--- OUTSIDE RECORDS SUMMARY | 2025-05-22 14:48 | XMS_ITS | Clinical Summary ---
Author Organization [facility] Address [address] [place] [address] Phone Care Team Providers Care Visual Merchandising Manager Name Role Phone Mario Berrios MD Primary Care Provider [phone] Encounters Date Type Department Care Team Description 05/09/2025 Lab Requisition [facility] Lab [address] [place] [address] Mario Berrios MD Essential (primary) hypertension 05/03/2025 Lab Requisition [facility] Lab [address] [place] [address] Mario Berrios MD Essential (primary) hypertension 04/29/2025 Lab Requisition [facility] Lab [address] [place] [address] Mario Berrios MD Hypo-osmolality and hyponatremia 04/24/2025 Lab Requisition [facility] Lab [address] [place] [address] Mario Berrios MD Essential (primary) hypertension 04/23/2025 Lab Requisition [facility] Lab [address] [place] [address] Mario Berrios MD Diarrhea, unspecified 04/22/2025 Lab Requisition [facility] Lab [address] [place] [address] Mario Berrios MD Essential (primary) hypertension 04/17/2025 Lab Requisition [facility] Lab [address] [place] [address] Mario Brerios MD Essential (primary) hypertension 04/15/2025 Lab Requisition [facility] Lab [address] [place] [phone] Mario Berrios MD Essential (primary) hypertension 04/12/2025 Lab Requisition [facility] Lab [address] [place] [phone] Mario Berrios MD Essential (primary) hypertension 04/09/2025 Lab Requisition [facility] Lab [address] [place] [phone] Mario Berrios MD Dysuria; Urinary tract infection, site not specified 04/08/2025 Lab Requisition [facility] Lab [address] [place] [phone] Mario Berrios MD Essential (primary) hypertension 04/06/2025 Lab Requisition [facility] Lab [address] [place] [phone] Mario Berrios MD Essential (primary) hypertension 04/04/2025 Lab Requisition [facility] Lab [address] [place] [phone] Mario Berrios MD Essential (primary) hypertension from [...] (2 - Td or Tdap) 05/17/2022 05/17/2012 Depression Screening 09/17/2024 Cholesterol Screening (Lipid Panel) 12/18/2024 Falls Risk Assessment 12/18/2024 Medicare Annual Wellness Visit 12/18/2024 Osteoporosis Screening (Bone Density Screening) 12/18/2024 Social Influencers of Health Screening 12/18/2024 COVID-19 Vaccine ( season) 2025 09/05/2021, 05/16/2021, 04/25/2021 Influenza Vaccine (#1) 2025 , 07/14/2019, 06/13/2017, [...] K/mcL LAB HEMETOLOGY METHOD 05/04/2025 11:11 AM [facility] LAB RBC 4.00 3.80 - 4.80 M/mcL LAB HEMETOLOGY METHOD 05/04/2025 11:11 AM [facility] LAB Hemoglobin 12.3 11.5 - 16.0 g/dL LAB HEMETOLOGY METHOD 05/04/2025 11:11 AM [facility] LAB Hematocrit 36.4 35.0 - 47.0 % LAB HEMETOLOGY METHOD 05/04/2025 11:11 AM [facility] LAB MCV 91.9 79.0 - 98.0 FL LAB HEMETOLOGY METHOD 05/04/2025 11:11 AM [facility] LAB MCH 31.1 27.0 - 32.0 pcg LAB HEMETOLOGY METHOD 05/04/2025 11:11 AM [facility] LAB MCHC 33.8 32.0 - 37.0 g/dL LAB HEMETOLOGY METHOD 05/04/2025 11:11 AM [facility] LAB RDW 15.1(H) 11.0 - 15.0 % LAB HEMETOLOGY METHOD 05/04/2025 11:11 AM [facility] LAB Platelets 204 130 - 400 K/mcL LAB HEMETOLOGY METHOD 05/04/2025 11:11 AM EDT [facility] LAB MPV 10.3 7.0 - 11.0 FL LAB HEMETOLOGY METHOD 05/04/2025 11:11 AM EDT [facility] LAB NRBC 0.0 <1.0 % LAB HEMETOLOGY METHOD 05/04/2025 11:11 AM EDT [facility] LAB NRBC Absolute 0.00 <0.10 K/mcL LAB HEMETOLOGY METHOD 05/04/2025 11:11 AM EDT [facility] Blood Venous blood specimen / Unknown Venipuncture / Unknown 05/04/2025 5:20 AM EDT 05/04/2025 10:22 AM EDT us Mario Berrios MD LAB BLOOD ORDERABLES Final Resu lt [facility] [address] [place] [address], [place] [phone] * (ABNORMAL) Comprehensive metabolic panel (05/04/2025 5:20 AM EDT) Only the most recent of7 resultswithin the time period is included. Sodium 131(L) 133 - 145 mmol/L LAB CHEMISTRY METHOD 05/04/2025 11:30 AM T [facility] Potassium 3.6 3.5 - 5.5 mmol/L LAB CHEMISTRY METHOD 05/04/2025 11:30 AM [facility] Comment:Hemolysis present Chloride 94(L) 96 - 110 mmol/L LAB CHEMISTRY METHOD 05/04/2025 11:30 AM [facility] CO2 28 21 - 32 mmol/L LAB CHEMISTRY METHOD 05/04/2025 11:30 AM [facility] LAB Anion Gap 9 3 - 11 LAB CHEMISTRY METHOD 05/04[facility] Glucose 79 70 - 100 mg/dL LAB CHEMISTRY METHOD 05/04/2025 11:30 AM [facility] BUN 11 5 - 25 mg/dL LAB CHEMISTRY METHOD 05/04/2025 11:30 AM [facility] Creatinine 0.44(L) 0.50 - 1.10 mg/dL LAB CHEMISTRY METHOD 05/04/2025 11:30 AM [facility] LAB eGFR 95 >=60 mL/min/1. 73m2 LAB CHEMISTRY METHOD 05/04/2025 11:30 AM [facility] Comment:Calculation based on the Chronic Kidney Disease Epidemiology Collaboration (CKD-EPI) equation refit without adjustment for race. BUN/Creatinine Ratio 25.0 LAB CHEMISTRY METHOD 05/04/2025 11:30 AM [facility] Calcium 8.1(L) 8.5 - 10.5 mg/dL LAB CHEMISTRY METHOD 05/04/2025 11:30 AM [facility] AST (SGOT) 28 10 - 42 unit/L LAB CHEMISTRY METHOD 05/04/2025 11:30 AM [facility] Comment:Hemolysis present ALT (SGPT) 27 10 - 60 unit/L LAB CHEMISTRY METHOD 05/04/2025 11:30 AM [facility] Alkaline Phosphatase 140(H) 42 - 121 unit/L LAB CHEMISTRY METHOD 05/04/2025 11:30 AM [facility] Total Protein 5.5(L) 6.0 - 8.0 g/dL LAB CHEMISTRY METHOD 05/04/2025 11:30 AM [facility] Albumin 2.5(L) 3.2 - 5.0 g/dL LAB CHEMISTRY METHOD 05/04/2025 11:30 AM [facility] Total Bilirubin 0.8 0.0 - 1.4 mg/dL LAB CHEMISTRY METHOD 05/04/2025 11:30 AM [facility] Blood Venous blood specimen / Unknown Venipuncture / Unknown 05/04/2025 5:20 AM EDT 05/04/2025 10:20 AM EDT us Mario Berrios MD LAB BLOOD ORDERABLES Final Resu lt [facility] [address] [place] [address], [place] [phone] * (ABNORMAL) Basic metabolic panel (04/23/2025 5:52 AM EDT) Only the most recent of3 resultswithin the time period is included. Sodium 133 133 - 145 mmol/L LAB CHEMISTRY METHOD 04/23/2025 10:52 AM [facility] Potassium 3.7 3.5 - 5.5 mmol/L LAB CHEMISTRY METHOD 04/23/2025 10:52 AM [facility] Chloride 95(L) 96 - 110 mmol/L LAB CHEMISTRY METHOD 04/23/2025 10:52 AM [facility] CO2 33(H) 21 - 32 mmol/L LAB CHEMISTRY METHOD 04/23/2025 10:52 AM [facility] Anion Gap 5 3 - 11 LAB CHEMISTRY METHOD 04/23/2025 10:52 AM [facility] Glucose 88 70 - 100 mg/dL LAB CHEMISTRY METHOD 04/23/2025 10:52 AM [facility] BUN 9 5 - 25 mg/dL LAB CHEMISTRY METHOD 04/23/2025 10:52 AM [facility] Creatinine 0.60 0.50 - 1.10 mg/dL LAB CHEMISTRY METHOD 04/23/2025 10:52 AM [facility] LAB eGFR 88 >=60 mL/min/1. 73m2 LAB CHEMISTRY METHOD 04/23/2025 10:52 AM [facility] Comment:Calculation based on the Chronic Kidney Disease Epidemiology Collaboration (CKD-EPI) equation refit without adjustment for race. BUN/Creatinine Ratio 15.0 LAB CHEMISTRY METHOD 04/23/2025 10:52 AM EDT [facility] Calcium 7.4(L) 8.5 - 10.5 mg/dL LAB CHEMISTRY METHOD 04/23/2025 10:52 AM T [facility] Blood Venous blood specimen / Unknown Venipuncture / Unknown 04/23/2025 5:52 AM EDT 04/23/2025 9:52 AM EDT us Mario Berrios MD LAB BLOOD ORDERABLES Final Resu lt [facility] [address] [place] [address], [place] [phone] * (ABNORMAL) Urinalysis with reflex microscopic (04/08/2025 4:45 PM EDT) Specific [place] Urine 1.028 1.003 - 1.030 LAB URINALYSIS - AUTOMATED METHOD 04/09/2025 12:19 PM [facility] pH, Urine 5.5 5.0 - 8.0 pH LAB URINALYSIS - AUTOMATED METHOD 04/09/2025 12:19 PM [facility] Leukocytes, Urine Moderate(A) Negative LAB URINALYSIS - AUTOMATED METHOD 04/09/2025 12:19 PM [facility] Nitrite, Urine Positive(A) Negative LAB URINALYSIS - AUTOMATED METHOD 04/09/2025 12:19 PM [facility] Protein, Urine 30(A) <=Trace mg/dL LAB URINALYSIS - AUTOMATED METHOD 04/09/2025 12:19 PM [facility] Glucose, Urine 100(A) Negative mg/dL LAB URINALYSIS - AUTOMATED METHOD 04/09/2025 12:19 PM [facility] Ketones, Urine Trace(A) Negative mg/dL LAB URINALYSIS - AUTOMATED METHOD 04/09/2025 12:19 PM [facility] Urobilinogen , Urine 1.0 0.2 - 1.0 mg/dL LAB URINALYSIS - AUTOMATED METHOD 04/09/2025 12:19 PM [facility] Bilirubin, Urine Negative Negative LAB URINALYSIS - AUTOMATED METHOD 04/09/2025 12:19 PM [facility] Blood, Urine Negative Negative LAB URINALYSIS - AUTOMATED METHOD 04/09/2025 12:19 PM [facility] RBC, Urine 3.7 0 - 4 /HPF LAB URINALYSIS - AUTOMATED METHOD 04/09/2025 12:19 PM [facility] WBC, Urine 59.3(H) 0 - 4 /HPF LAB URINALYSIS - AUTOMATED METHOD 04/09/2025 12:19 PM [facility] Squamous Epithelial, Urine 30 0 - 60 /LPF LAB URINALYSIS - AUTOMATED METHOD 04/09/2025 12:19 PM [facility] Bacteria, Urine Many(A) Negative /HPF LAB URINALYSIS - AUTOMATED METHOD 04/09/2025 12:19 PM [facility] Hyaline Casts, Urine 8.0(H) 0 - 3 /LPF LAB URINALYSIS - AUTOMATED METHOD 04/09/2025 12:19 PM [facility] Urine Urine specimen obtained by clean catch procedure / Unknown Non-blood Collection / Unknown 04/08/2025 4:45 PM EDT 04/09/2025 11:37 AM EDT us Mario Berrios MD LAB URINE ORDERABLES Final Resu lt [facility] [address] [place] [address], * (ABNORMAL) Culture urine (04/08/2025 4:45 PM EDT) [facility] Signature Culture, Urine >=100,000 CFU/mL Enterobacter cloacae complex(A) GEMA 04/11/2025 9:40 AM EDT [facility] Comment: This is an edited result. [...] MICROBIOLOGY - GENERAL ORDE SHERWIN Final Result [facility] [address] [place] [address], [place] [phone] from Last 3 Months Insurance MEDICARE [facility] [employer] MEDICARE Care Teams Visual Merchandising Manager Relationship Specialty Start Date End Date Mario Berrios MD [address] [place] [address] PCP - General Internal Medicine 04/04/25
--- OUTSIDE RECORDS SUMMARY | 2025-05-22 14:48 | XMS_ITS | Encounter Summary ---
Author Organization [facility] Address [address] [place] [address] Care Team Providers Care Tyre Retreader Name Role Phone Mario Berrios MD Primary Care Provider [phone] Encounter Details Date Type Department Care Team (Late st Contact Info) Description 04/08/2025 Lab Requisition [facility] - Main Lab [address] [facility] [place] [address] Mario Berrios MD [address] [place] [address] [phone] Essential (primary) hypertension Social History Tobacco Use [...] AM EDT) WBC 10.1 4.8 - 10.8 K/[facility] LAB HEMETOLOGY METHOD 04/09/2025 11:39 AM EDT [facility] LAB RBC 3.90 3.80 - 4.80 M/[facility] LAB HEMETOLOGY METHOD 04/09/2025 11:39 AM EDT [facility] LAB Hemoglobin 11.9 11.5 - 16.0 g/dL LAB HEMETOLOGY METHOD 04/09/2025 11:39 AM [facility] LAB Hematocrit 37.5 35.0 - 47.0 % LAB HEMETOLOGY METHOD 04/09/2025 11:39 AM [facility] LAB MCV 95.4 79.0 - 98.0 FL LAB HEMETOLOGY METHOD 04/09/2025 11:39 AM [facility] LAB MCH 30.3 27.0 - 32.0 pcg LAB HEMETOLOGY METHOD 04/09/2025 11:39 AM [facility] LAB MCHC 31.7(L) 32.0 - 37.0 g/dL LAB HEMETOLOGY METHOD 04/09/2025 11:39 AM [facility] LAB RDW 15.8(H) 11.0 - 15.0 % LAB HEMETOLOGY METHOD 04/09/2025 11:39 AM [facility] LAB Platelets 127(L) 130 - 400 K/mcL LAB HEMETOLOGY METHOD 04/09/2025 11:39 AM [facility] LAB MPV 11.8(H) 7.0 - 11.0 FL LAB HEMETOLOGY METHOD 04/09/2025 11:39 AM [facility] LAB NRBC 0.0 <1.0 % LAB HEMETOLOGY METHOD 04/09/2025 11:39 AM [facility] LAB NRBC Absolute 0.00 <0.10 K/mcL LAB HEMETOLOGY METHOD 04/09/2025 11:39 AM [facility] LAB Blood Venous blood specimen / Unknown Venipuncture / Unknown 04/09/2025 5:47 AM EDT 04/09/2025 11:23 AM EDT Mario Berrios MD LAB BLOOD ORDERABLES Final Resu lt [facility] LAB [address] [place] [address], [place] [phone] * (ABNORMAL) Basic metabolic panel (04/09/2025 5:47 AM EDT) Sodium 133 133 - 145 mmol/L LAB CHEMISTRY METHOD 04/09/2025 12:06 PM [facility] LAB Potassium 4.9 3.5 - 5.5 mmol/L LAB CHEMISTRY METHOD 04/09/2025 12:06 PM [facility] LAB Comment:Hemolysis present Chloride 101 96 - 110 mmol/L LAB CHEMISTRY METHOD 04/09/2025 12:06 PM [facility] LAB CO2 26 21 - 32 mmol/L LAB CHEMISTRY METHOD 04/09/2025 12:06 PM [facility] LAB Anion Gap 6 3 - 11 LAB CHEMISTRY METHOD 04/09/2025 12:06 PM [facility] LAB Glucose 97 70 - 100 mg/dL LAB CHEMISTRY METHOD 04/09/2025 12:06 PM [facility] LAB BUN 17 5 - 25 mg/dL LAB CHEMISTRY METHOD 04/09/2025 12:06 PM [facility] LAB Creatinine 0.61 0.50 - 1.10 mg/dL LAB CHEMISTRY METHOD 04/09/2025 12:06 PM [facility] LAB eGFR 88 >=60 mL/min/1. 73m2 LAB CHEMISTRY METHOD 04/09/2025 12:06 PM [facility] LAB Comment:Calculation based on the Chronic Kidney Disease Epidemiology Collaboration (CKD-EPI) equation refit without adjustment for race. BUN/Creatinine Ratio 27.9 LAB CHEMISTRY METHOD 04/09/2025 12:06 PM [facility] LAB Calcium 8.0(L) 8.5 - 10.5 mg/dL LAB CHEMISTRY METHOD 04/09/2025 12:06 PM EDT [facility] Blood Venous blood specimen / Unknown Venipuncture / Unknown 04/09/2025 5:47 AM EDT 04/09/2025 11:23 AM EDT Mario Berrios MD LAB BLOOD ORDERABLES Final Resu lt [facility] LAB [address] [place] [address], documented in this encounter Visit Diagnoses Diagnosis Essential (primary) hypertension Unspecified essential hypertension documented in this encounter Care Teams Tyre Retreader Relationship Specialty Start Date End Date Mario Berrios MD [address] [place] [phone] PCP - General Internal Medicine 04/04/25 documented as of this encounter
--- OUTSIDE RECORDS SUMMARY | 2025-05-22 14:48 | XMS_ITS | Encounter Summary ---
Author Organization [facility] Address [address] [place] [address] Phone Care Team Providers Care Screwdown Operator Name Role Phone Pcp, Unknown Primary Care Provider Unavailabl e Encounter Details Date Type Department Care Team (Late st Contact Info) Description 10/01/2024 Procedure Pass [facility]oscopy Admitting Dept Virtual Department [address] [place] [address] Social History Tobacco Use Types Packs/Day Years [...] on filedocumented in this encounter Care Teams Screwdown Operator Relationship Specialty Start Date End Date Pcp, Unknown PCP - General 08/05/24 documented as of this encounter Additional Source Comments The information contained in this document represents components of the legal health record. It is not the complete legal health record.[facility]
--- OUTSIDE RECORDS SUMMARY | 2025-05-22 14:48 | XMS_ITS | Encounter Summary ---
Author Organization [facility] Address [address] [place] [address] Care Team Providers Care Cable Systems Installer Name Role Phone Mario Berrios MD Primary Care Provider [phone] Encounter Details Date Type Department Care Team (Late st Contact Info) Description 04/15/[address] [facility] - Main Lab [address] [facility] [place] [address] Mario Berrios MD [address] [place] [address] [phone] Essential (primary) hypertension Social History Tobacco Use [...] AM EDT) WBC 8.9 4.8 - 10.8 K/[facility] LAB HEMETOLOGY METHOD 04/16/2025 9:[address] [facility] LAB RBC 4.30 3.80 - 4.80 M/[facility] LAB HEMETOLOGY METHOD 04/16/2025 9:[address] [facility] LAB Hemoglobin 13.5 11.5 - 16.0 g/dL LAB HEMETOLOGY METHOD 04/16/2025 9:[address] [facility] LAB Hematocrit 40.4 35.0 - 47.0 % LAB HEMETOLOGY METHOD 04/16/2025 9:[address] [facility] LAB MCV 93.5 79.0 - 98.0 FL LAB HEMETOLOGY METHOD 04/16/2025 9:[address] [facility] LAB MCH 31.3 27.0 - 32.0 pcg LAB HEMETOLOGY METHOD 04/16/2025 9:[address] [facility] LAB MCHC 33.4 32.0 - 37.0 g/dL LAB HEMETOLOGY [facility] RDW 16.6(H) 11.0 - 15.0 % LAB HEMETOLOGY METHOD 04/16/2025 9:[address] [facility] LAB Platelets 159 130 - 400 K/mcL LAB HEMETOLOGY METHOD 04/16/2025 9:[address] [facility] LAB MPV 11.7(H) 7.0 - 11.0 FL LAB HEMETOLOGY METHOD 04/16/2025 9:[address] [facility] LAB NRBC 0.0 <1.0 % LAB HEMETOLOGY METHOD 04/16/2025 9:[address] [facility] LAB NRBC Absolute 0.00 <0.10 K/mcL LAB HEMETOLOGY METHOD 04/16/2025 9:[address] [facility] Blood Venous blood specimen / Unknown Venipuncture / Unknown 04/16/2025 6:36 AM EDT 04/16/2025 9:27 AM EDT us Mario Berrios MD LAB BLOOD ORDERABLES Final Resu lt [facility] LAB [address] [place] [address], * (ABNORMAL) Basic metabolic panel (04/16/2025 6:36 AM EDT) Sodium 134 133 - 145 mmol/L LAB CHEMISTRY METHOD 04/16/2025 10:16 AM [facility] LAB Potassium 3.8 3.5 - 5.5 mmol/L LAB CHEMISTRY METHOD 04/16/2025 10:[address] [facility] LAB Chloride 98 96 - 110 mmol/L LAB CHEMISTRY METHOD 04/16/2025 10:16 AM [facility] LAB CO2 26 21 - 32 mmol/L LAB CHEMISTRY METHOD 04/16/2025 10:16 AM [facility] LAB Anion Gap 10 3 - 11 LAB CHEMISTRY METHOD 04/16/2025 10:16 AM [facility] LAB Glucose 129(H) 70 - 100 mg/dL LAB CHEMISTRY METHOD 04/16/2025 10:16 AM [facility] LAB BUN 15 5 - 25 mg/dL LAB CHEMISTRY METHOD 04/16/2025 10:16 AM [facility] LAB Creatinine 0.65 0.50 - 1.10 mg/dL LAB CHEMISTRY METHOD 04/16/2025 10:16 AM [facility] LAB eGFR 86 >=60 mL/min/1. 73m2 LAB CHEMISTRY METHOD 04/16/2025 10:16 AM [facility] LAB Comment:Calculation based on the Chronic Kidney Disease Epidemiology Collaboration (CKD-EPI) equation refit without adjustment for race. BUN/Creatinine Ratio 23.1 LAB CHEMISTRY METHOD 04/16/2025 10:16 AM [facility] LAB Calcium 8.5 8.5 - 10.5 mg/dL LAB CHEMISTRY METHOD 04/16/2025 10:16 AM [facility] LAB Blood Venous blood specimen / Unknown Venipuncture / Unknown 04/16/2025 6:36 AM EDT 04/16/2025 9:26 AM EDT Mario Berrios MD LAB BLOOD ORDERABLES Final Resu lt [facility] [address] [place] [address], documented in this encounter Visit Diagnoses Diagnosis Essential (primary) hypertension Unspecified essential hypertension documented in this encounter Care Teams Cable Systems Installer Relationship Specialty Start Date End Date Mario Berrios MD [address] [place] [address] PCP - General Internal Medicine 04/04/25 documented as of this encounter
--- OUTSIDE RECORDS SUMMARY | 2025-05-22 14:48 | XMS_ITS | Encounter Summary ---
Author Organization [facility] Address [address] [place] [address] Care Team Providers Care Clinical Education Specialist Name Role Phone Mario Berrios MD Primary Care Provider [phone] Encounter Details Date Type Department Care Team (Late st Contact Info) Description 04/09/2025 Lab Requisition [facility] - Main Lab [address] [facility] [place] [address] Mario Berrios MD [address] [place] [phone] Dysuria; Urinary tract infection, site not [...] reflex microscopic (04/08/2025 4:45 PM EDT) Specific Martin Urine 1.028 1.003 - 1.030 LAB URINALYSIS - AUTOMATED METHOD 04/09/2025 12:19 PM [facility] LAB pH, Urine 5.5 5.0 - 8.0 pH LAB URINALYSIS - AUTOMATED METHOD 04/09/2025 12:19 PM [facility] LAB Leukocytes, Urine Moderate(A) Negative LAB URINALYSIS - AUTOMATED METHOD 04/09/2025 12:19 PM [facility] LAB Nitrite, Urine Positive(A) Negative LAB URINALYSIS - AUTOMATED METHOD 04/09/2025 12:19 PM [facility] LAB Protein, Urine 30(A) <=Trace mg/dL LAB URINALYSIS - AUTOMATED METHOD 04/09/2025 12:19 PM [facility] LAB Glucose, Urine 100(A) Negative mg/dL LAB URINALYSIS - AUTOMATED METHOD 04/09/2025 12:19 PM [facility] LAB Ketones, Urine Trace(A) Negative mg/dL LAB URINALYSIS - AUTOMATED METHOD 04/09/2025 12:19 PM [facility] LAB Urobilinogen , Urine 1.0 0.2 - 1.0 mg/dL LAB URINALYSIS - AUTOMATED METHOD 04/09/2025 12:19 PM [facility] LAB Bilirubin, Urine Negative Negative LAB URINALYSIS - AUTOMATED METHOD 04/09/2025 12:19 PM [facility] LAB Blood, Urine Negative Negative LAB URINALYSIS - AUTOMATED METHOD 04/09/2025 12:19 PM [facility] LAB RBC, Urine 3.7 0 - 4 /HPF LAB URINALYSIS - AUTOMATED METHOD 04/09/2025 12:19 PM [facility] LAB WBC, Urine 59.3(H) 0 - 4 /HPF LAB URINALYSIS - AUTOMATED METHOD 04/09/2025 12:19 PM [facility] LAB Squamous Epithelial, Urine 30 0 - 60 /LPF LAB URINALYSIS - AUTOMATED METHOD 04/09/2025 12:19 PM [facility] LAB Bacteria, Urine Many(A) Negative /HPF LAB URINALYSIS - AUTOMATED METHOD 04/09/2025 12:19 PM EDT [facility] LAB Hyaline Casts, Urine 8.0(H) 0 - 3 /LPF LAB URINALYSIS - AUTOMATED METHOD 04/09/2025 12:19 PM EDT [facility] LAB Urine Urine specimen obtained by clean catch procedure / Unknown Non-blood Collection / Unknown 04/08/2025 4:45 PM EDT 04/09/2025 11:37 AM EDT us Mario Berrios MD LAB URINE ORDERABLES Final Resu lt [facility] LAB [address] [place] [address], [place] [phone] * (ABNORMAL) Culture urine (04/08/2025 4:45 PM EDT) Culture, Urine >=100,000 CFU/mL Enterobacter cloacae complex(A) GEMA 04/11/2025 9:40 AM EDT [facility] LAB Comment: This is an edited result. [...] Mario Berrios MD LAB MICROBIOLOGY - GENERAL [facility] Final Result Performing Organization Address City/State/[facility] Co de Phone Number [facility] ([facility]) [facility] LAB [address] [place] [address], documented in this encounter Visit Diagnoses Diagnosis Dysuria Urinary tract infection, site not specified documented in this encounter Care Teams Clinical Education Specialist Relationship Specialty Start Date End Date Mario Berrios MD [address] [place] [address] PCP - General Internal Medicine 04/04/25 documented as of this encounter
--- OUTSIDE RECORDS SUMMARY | 2025-05-22 14:48 | XMS_ITS | Encounter Summary ---
Author Organization [facility] Address [address] [place] [address] Care Team Providers Care Insurance Follow Up Rep Name Role Phone Mario Berrios MD Primary Care Provider [phone] Encounter Details Date Type Department Care Team (Late st Contact Info) Description 05/03/2025 Lab Requisition [facility] - Main Lab [address] [facility] [email or web address] [address] Mario Berrios MD [address] [place] [address] [phone] Essential (primary) hypertension Social History Tobacco Use [...] AM EDT) WBC 6.1 4.8 - 10.8 K/[facility] LAB HEMETOLOGY METHOD 05/04/2025 11:11 AM EDT [facility] LAB RBC 4.00 3.80 - 4.80 M/[facility] LAB HEMETOLOGY METHOD 05/04/2025 11:11 AM EDT [facility] LAB Hemoglobin 12.3 11.5 - 16.0 g/dL LAB HEMETOLOGY METHOD 05/04/2025 11:11 AM EDT [facility] LAB Hematocrit 36.4 35.0 - 47.0 % LAB HEMETOLOGY METHOD 05/04/2025 11:11 AM EDT [facility] LAB MCV 91.9 79.0 - 98.0 FL LAB HEMETOLOGY METHOD 05/04/2025 11:11 AM EDT [facility] LAB MCH 31.1 27.0 - 32.0 pcg LAB HEMETOLOGY METHOD 05/04/2025 11:11 AM EDT [facility] LAB MCHC 33.8 32.0 - 37.0 g/dL LAB HEMETOLOGY METHOD 05/04/2025 11:11 AM [facility] LAB RDW 15.1(H) 11.0 - 15.0 % LAB HEMETOLOGY METHOD 05/04/2025 11:11 AM EDT [facility] LAB Platelets 204 130 - 400 K/mcL LAB HEMETOLOGY METHOD 05/04/2025 11:11 AM EDT [facility] LAB MPV 10.3 7.0 - 11.0 FL LAB HEMETOLOGY METHOD [facility] NRBC 0.0 <1.0 % LAB HEMETOLOGY METHOD 05/04/2025 11:11 AM EDT [facility] LAB NRBC Absolute 0.00 <0.10 K/mcL LAB HEMETOLOGY METHOD 05/04/2025 11:11 AM EDT [facility] LAB Blood Venous blood specimen / Unknown Venipuncture / Unknown 05/04/2025 5:20 AM EDT 05/04/2025 10:22 AM EDT us Mario Berrios MD LAB BLOOD ORDERABLES Final Resu lt [facility] LAB [address] [place] [address], * (ABNORMAL) Comprehensive metabolic panel (05/04/2025 5:20 AM EDT) Sodium 131(L) 133 - 145 mmol/L LAB CHEMISTRY METHOD 05/04/2025 11:30 AM [facility] LAB Potassium 3.6 3.5 - 5.5 mmol/L LAB CHEMISTRY METHOD 05/04/2025 11:30 AM [facility] LAB Comment:Hemolysis present Chloride 94(L) 96 - 110 mmol/L LAB CHEMISTRY METHOD 05/04/2025 11:30 AM [facility] LAB CO2 28 21 - 32 mmol/L LAB CHEMISTRY METHOD 05/04/2025 11:30 AM [facility] LAB Anion Gap 9 3 - 11 LAB CHEMISTRY METHOD 05/04/2025 11:30 AM [facility] LAB Glucose 79 70 - 100 mg/dL LAB CHEMISTRY METHOD 05/04/2025 11:30 AM [facility] LAB BUN 11 5 - 25 mg/dL LAB CHEMISTRY METHOD 05/04/2025 11:30 AM [facility] LAB Creatinine 0.44(L) 0.50 - 1.10 mg/dL LAB CHEMISTRY METHOD 05/04/2025 11:30 AM [facility] LAB eGFR 95 >=60 mL/min/1. 73m2 LAB CHEMISTRY METHOD 05/04/2025 11:30 AM [facility] LAB Comment:Calculation based on the Chronic Kidney Disease Epidemiology Collaboration (CKD-EPI) equation refit without adjustment for race. BUN/Creatinine Ratio 25.0 LAB CHEMISTRY METHOD 05/04/2025 11:30 AM [facility] LAB Calcium 8.1(L) 8.5 - 10.5 mg/dL LAB CHEMISTRY METHOD 05/04/2025 11:30 AM EDT [facility] AST (SGOT) 28 10 - 42 unit/L LAB CHEMISTRY METHOD 05/04/2025 11:30 AM EDT [facility] LAB Comment:Hemolysis present ALT (SGPT) 27 10 - 60 unit/L LAB CHEMISTRY METHOD 05/04/2025 11:30 AM EDT [facility] LAB Alkaline Phosphatase 140(H) 42 - 121 unit/L LAB CHEMISTRY METHOD 05/04/2025 11:30 AM EDT [facility] Total Protein 5.5(L) 6.0 - 8.0 g/dL LAB CHEMISTRY METHOD 05/04/2025 11:30 AM EDT [facility] Albumin 2.5(L) 3.2 - 5.0 g/dL LAB CHEMISTRY METHOD 05/04/2025 11:30 AM EDT [facility] Total Bilirubin 0.8 0.0 - 1.4 mg/dL LAB CHEMISTRY METHOD 05/04/2025 11:30 AM EDT [facility] Blood Venous blood specimen / Unknown Venipuncture / Unknown 05/04/2025 5:20 AM EDT 05/04/2025 10:20 AM EDT Mario Berrios MD LAB BLOOD ORDERABLES Final Resu lt [facility] [address] [place] [address], documented in this encounter Visit Diagnoses Diagnosis Essential (primary) hypertension Unspecified essential hypertension documented in this encounter Care Teams Insurance Follow Up Rep Relationship Specialty Start Date End Date Mario Berrios MD [address] [place] [address] PCP - General Internal Medicine 04/04/25 documented as of this encounter
--- OUTSIDE RECORDS SUMMARY | 2025-05-22 14:48 | XMS_ITS | Encounter Summary ---
Author Organization [facility] Address [address] [place] [address] Care Team Providers Care Matrix Inspector Name Role Phone Mario Berrios MD Primary Care Provider [phone] Encounter Details Date Type Department Care Team (Late st Contact Info) Description 04/29/2025 Lab Requisition [facility] - Main Lab [address] [facility] [place] [address] Mario Berrios MD [address] [place] [phone] Hypo-osmolality and hyponatremia Social History Tobacco [...] LAB CHEMISTRY METHOD 04/29/2025 3:38 PM EDT [facility] Potassium 4.3 3.5 - 5.5 mmol/L LAB CHEMISTRY METHOD 04/29/2025 3:38 PM EDT [facility] Chloride 93(L) 96 - 110 mmol/L LAB CHEMISTRY METHOD 04/29/2025 3:38 PM EDT [facility] CO2 31 21 - 32 mmol/L LAB CHEMISTRY METHOD 04/29/2025 3:38 PM [facility] LAB Anion Gap 6 3 - 11 LAB CHEMISTRY METHOD 04/29/2025 3:38 PM [facility] LAB Glucose 90 70 - 100 mg/dL LAB CHEMISTRY METHOD 04/29/2025 3:38 PM [facility] LAB BUN 10 5 - 25 mg/dL LAB CHEMISTRY METHOD 04/29/2025 3:38 PM [facility] LAB Creatinine 0.59 0.50 - 1.10 mg/dL LAB CHEMISTRY METHOD 04/29/2025 3:38 PM [facility] LAB eGFR 88 >=60 mL/min/1. 73m2 LAB CHEMISTRY METHOD 04/29/2025 3:38 PM [facility] LAB Comment:Calculation based on the Chronic Kidney Disease Epidemiology Collaboration (CKD-EPI) equation refit without adjustment for race. BUN/Creatinine Ratio 16.9 LAB CHEMISTRY METHOD 04/29/2025 3:38 PM [facility] LAB Calcium 8.3(L) 8.5 - 10.5 mg/dL LAB CHEMISTRY METHOD 04/29/2025 3:38 PM [facility] AST (SGOT) 16 10 - 42 unit/L LAB CHEMISTRY METHOD 04/29/2025 3:38 PM [facility] ALT (SGPT) 34 10 - 60 unit/L LAB CHEMISTRY METHOD 04/29/2025 3:38 PM [facility] Alkaline Phosphatase 131(H) 42 - 121 unit/L LAB CHEMISTRY METHOD 04/29/2025 3:38 PM [facility] Total Protein 5.2(L) 6.0 - 8.0 g/dL LAB CHEMISTRY METHOD 04/29/2025 3:38 PM [facility] Albumin 2.7(L) 3.2 - 5.0 g/dL LAB CHEMISTRY METHOD 04/29/2025 3:38 PM EDT [facility] Total Bilirubin 1.2 0.0 - 1.4 mg/dL LAB CHEMISTRY METHOD 04/29/2025 3:38 PM EDT [facility] Blood Venous blood specimen / Unknown Venipuncture / Unknown 04/29/2025 6:15 AM EDT 04/29/2025 11:49 AM EDT us Mario Berrios MD LAB BLOOD ORDERABLES Final Resu lt [facility] [address] [place] [address], documented in this encounter Visit Diagnoses Diagnosis Hypo-osmolality and hyponatremia documented in this encounter Care Teams Matrix Inspector Relationship Specialty Start Date End Date Mario Berrios MD [address] [place] [address] PCP - General Internal Medicine 04/04/25 documented as of this encounter
[2025-05-22 14:52] LABS: MANUAL DIFF FLAG NO
[2025-05-22 14:54] LABS: Hematocrit 35.4 % (37.0-47.0); Hemoglobin 12.2 g/dl (12.0-16.0); Imm Gran Abs Auto 0.04 X10*3/uL (0.00-0.03); Imm Gran Pct Auto 0.5 % (0.0-0.4); Lymphocytes Absolute Auto 1.2 X10*3/uL (1.2-4.9); Mean Corpuscular HGB Conc 34.5 g/dl (31.0-35.0); Mean Corpuscular Hemoglobin 31.0 pg (27.0-33.0); Mean Corpuscular Volume 90.1 fL (80.0-98.0); NRBC Abs Auto 0.000 X10*3/uL (0.0-0.012); NRBC Pct Auto 0.0 /100WBC (0.0-0.2); Platelet Count 177 X10*3/uL (160-400); Red Blood Count 3.93 X10*6/uL (4.20-5.50); White Blood Count 7.6 X10*3/uL (4.8-10.8)
[2025-05-22 14:59] LABS: INTERNATIONAL NORM RATIO 2.0 (0.9-1.1); Prothrombin Time 23.0 SEC (10.9-12.4)
[2025-05-22 15:15] LABS: B Type Natriuretic Peptide 804 pg/mL (<100)
[2025-05-22 15:16] LABS: Troponin-I High Sensitivity 2.8 ng/L (<3.5-17.0)
[2025-05-22 15:23] LABS: Alanine Aminotransferase 32 U/L (0-31); Albumin Level 3.3 g/dL (3.5-5.0); Alkaline Phosphatase 231 U/L (39-117); Anion Gap 13 (12-20); Aspartate Amino Transferase 31 U/L (5-31); Blood Urea Nitrogen 12 mg/dL (9-16); Calcium 8.1 mg/dL (8.4-10.2); Carbon Dioxide 25 mmol/L (22-29); Chloride 93 mmol/L (96-108); Creatinine Clr Calc Pharmacy 72.5; Estimated Glomerular Filt Rate > 60; Magnesium 1.4 mg/dL (1.6-2.6); Potassium 3.3 mmol/L (3.3-5.1); Sodium 128 mmol/L (135-145); Total Protein 6.4 g/dL (6.5-8.0)
[2025-05-22] MEDS: Magnesium Sulfate/H2O 2 GM/50 ML PIGGYBACK IV (16:09)
[2025-05-22] MEDS: Furosemide 20 MG/2 ML VIAL IVPUSH (16:15)
--- NOTE | 2025-05-22 16:35 | ED_ITS ---
HPI - Chest Pain General Chief Complaint: Chest Pain Stated Complaint: Chest pain, weakness Time Seen by Provider: 05/22/25 15:51 Source: patient, EMS and old records reviewed Mode of arrival: EMS Limitations: no limitations History of Present Illness ED Provider: GUIDO ALTMAN narrative: 84 yo female with PMH of multiple myeloma, DM2, hyponatremia, PAF on eliquis, HLD here with c/o having increased chest tightness, cough with clear sputum, increased leg swelling - her oncologist increased her lasix from 20mg daily to 40mg daily 2 days ago. She states she still has symptoms but her heart has been racing. She notes she still sleeps with one pillow only. She has no fevers. She has no GIB symptoms. She notes when she breathes that is when she has the pain. No n/v/d. complaint: chest pain and chest heaviness Onset (ago): day(s) (2) Timing of current episode: episodic Prior episodes: Yes Onset: during rest and during exertion Pain location: substernal Pain radiation: none Severity: moderate Quality: tightness Relieving factors: nothing Exacerbating factors: other Context: other (states started after she used lasix) Associated symptoms: dyspnea, palpitations and leg swelling Treatment prior to arrival: none Related Data Home Medications ?Medication ?Instructions ?Recorded ?Confirmed omeprazole 20 mg capsule,delayed 20 mg PO DAILY@0630 0 03/19/25 05/20/25 release sennosides 8.6 mg tablet (senna) 8.6 mg PO BEDTIME PRN Constipation 03/19/25 05/20/25 Previous Rx's ?Medication ?Instructions ?Recorded apixaban 5 mg tablet 5 mg PO BID #180 tabs simethicone 80 mg chewable tablet 80 mg PO TID PRN Abd ominal 03/05/25 Discomfort #30 tabs atorvastatin 10 mg tablet (Lipitor) 10 mg PO DAILY #90 tabs 05/13/25 metoprolol succinate 50 mg 50 mg PO BID #180 tabs 04/18 04/10 tablet,extended release 24 hr diltiazem HCl 240 mg 240 mg PO DAILY #90 caps capsule,extended release 24 hr furosemide 20 mg tablet (Lasix) 20 mg PO DAILY #30 tab s 05/14/25 sodium chloride 1,000 mg soluble 1,000 mg PO .qod #120 tabs 05/14/25 tablet lorazepam 0.5 mg tablet 0.5 mg PO BEDTIME PRN Anxiety/insomnia #30 tabs Allergies Allergy/AdvReac Type Severity Reaction Status Date / Time hydralazine Allergy Unknown Verified 05/22/25 14:15 hydrochlorothiazide AdvReac Intermediate Palpitation Verified 05/22/25 14:15 s amlodipine AdvReac DIZZINESS Verified 05/22/25 14:15 sotalol AdvReac Palpitation Verified 05/22/25 14:15 s Review of Systems 2 Review of Systems: Constitutional : No Weight loss, No Fever, No Chills ENT/Mouth : No sore throat, No Rhinorrhea Eyes: No Eye Pain, No Swelling Cardiovascular : pos Chest Pain, pos SOB, pos Dyspnea on Exertion, No Orthopnea, pos Edema, pos Palpitations Respiratory : No Cough, No Sputum Gastrointestinal : pos Nausea, No Vomiting, No Diarrhea, No abdominal Pain, No Hematochezia, No Melena Genitourinary : No Dysuria, No Urinary Frequency Musculoskeletal : No joint pain, No Myalgias, No Joint Swelling Skin : No Skin Lesions, No rash Neuro : No Weakness, No Numbness, No Dizziness, No Headache All other systems reviewed and are negative PMFSH Past Medical History Attestation statement: The following information was validated with the patient. Source: old records reviewed Medical History Hyponatremia DM type 2 (diabetes mellitus, type 2) Spinal stenosis 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 Lesion of bone of lumbosacral spine Multiple myeloma Lower back pain Atrial fibrillation with RVR Impacted cerumen of both ears Dysplastic nevus Vitamin D deficiency Annual physical exam Palpitations Leukoplakia of tongue Hyperlipidemia Peripheral neuropathy Dysuria Surgical History H/O arthroscopy of knee H/O varicose vein ligation H/O: hysterectomy H/O mastectomy H/O colonoscopy Family History Family History Father No problems noted. Mother No problems noted. Son Diabetes Social History Social History Household Members: None Household Members Other:: lives alone, independent, daughter lives close Housing: House Do you presently have visiting nurse or other home services: No Alcohol intake: former Patient Tobacco Use Status: Never used Tobacco e-Cigarette/Vaping Use: Never Used Second Hand Smoke Exposure: No Advance Directives: No Advance Directives Information Provided: Yes Do you have a plan to hurt others: No Plan service: No Current occupational status: retired Gender identity: Female Cognitive needs: No Hearing needs: No Vision needs: Yes Physical Exam 2 Vital Signs: Vital Signs: Last Vital Signs Temp 98.3 F 05/22/25 14:09 Pulse 144 H 05/22/25 18:53 Resp 20 05/22/25 17:12 BP 122/72 05/22/25 18:53 Pulse Ox 98 05/22/25 17:12 O2 Del Method Nasal Cannula 05/22/25 17:12 O2 Flow Rate 2 05/22/25 17:12 BMI result Body Mass Index 24.1 Appearance: Alert. Oriented X3. No acute distress. Eyes: Pupils equal, round and reactive to light. ENT: Pharynx normal. Neck: Normal inspection. Neck supple. CVS: irregular tachycardic heart rate and rhythm. Pulses normal. Respiratory: No respiratory distress. Breath sounds crackles in both bases Abdomen: Soft and nontender. Skin: Skin warm and dry. pale skin color. Normal skin turgor. Extremities: 3+ pitting symmetric lower extremity edema. Neuro: Oriented X 3. No motor deficit. No sensory deficit. CN2-12 intact Course Course Course Narrative: repeat IV dilt ordered Medications Administered Generic Name Dose Route Start Last Admin Trade Name Freq PRN Reason Stop Dose Admin Diltiazem HCl 125 mg/ Sodium 125 mls @ 0 mls/hr 05/22/25 18:00 05/22/25 18:53 Chloride IVCONT 15 mg/hr .Q0M CIELO 15 mls/hr Protocol Titration Per Protocol Discontinued Medications Generic Name Dose Route Start Last Admin Trade Name Freq PRN Reason Stop Dose Admin Diltiazem HCl 10 mg 05/22/25 15:59 05/22/25 16:09 Diltiazem Hcl 50 Mg/10 Ml Vial IVPUSH 05/22/25 16:00 10 mg ONCE ONE Administration Diltiazem HCl 10 mg 05/22/25 17:05 05/22/25 17:13 Diltiazem Hcl 50 Mg/10 Ml Vial IVPUSH 05/22/25 17:06 10 mg ONCE ONE Administration Furosemide 20 mg 05/22/25 16:12 05/22/25 16:15 Furosemide 20 Mg/2 Ml Vial IVPUSH 05/22/25 16:13 20 mg ONCE ONE Administration Protocol Magnesium Sulfate 2 gm in 50 mls @ 25 mls/hr 05/22/25 15:57 05/22/25 18:52 Magnesium Sulfate/H2o IV 05/22/25 17:56 Infused ONCE ONE Infusion Iohexol 100 ml 05/22/25 17:50 05/22/25 17:52 Iohexol 350 Mg/Ml 100 Ml Infus..Btl IV 05/22/25 17:51 65 ml ONCE ONE Administration Medical Decision Making Medical Decision Making [facility] Narrative: 84 yo female with PMH of multiple myeloma, DM2, hyponatremia, PAF on eliquis, HLD here with c/o palpitations, edema, dyspnea and along with clear sputum. She has chest tightness. She blames her additional lasix on it. At this time will need labs, EKG, trop x 2, IV dilt, IV lasix, IV magnesium given hypomagnesemia, chest PE study. She has no infectious symptoms. Differential Diagnosis Differential Diagnoses: The differential diagnosis associated with the presentation includes lyte abnormality, CHF, VTE, afib with RVR Admission/Observation Consideration of admission/observation: Escalation of care including admission/observation considered admit for IV dilt gtt, monitoring, IV lasix Consult Healthcare Provider Management of the patient was discussed with: Hospitalist (will admit) Lab Data [facility] Lab Attestation statement: I reviewed the patient's lab results. 05/22/25 14:47 05/22/25 14:47 Labs: Lab Results 05/22/25 05/22/25 05/22/25 Range/Units 14:47 14:48 17:17 WBC 7.6 (4.8-10.8) X10*3/uL RBC 3.93 L (4.20-5.50) X10*6/uL Hgb 12.2 (12.0-16.0) g/dl Hct 35.4 L (37.0-47.0) % MCV 90.1 (80.0-98.0) fL MCH 31.0 (27.0-33.0) pg MCHC 34.5 (31.0-35.0) g/dl RDW 15.2 (11.0-16.0) % Plt Count 177 D (160-400) X10*3/uL MPV 9.9 (9.4-12.3) fL Immature Gran % (Auto) 0.5 H (0.0-0.4) % Neut % (Auto) 70.4 (45-73) % Lymph % (Auto) 16.1 L (20-40) % [place]cdonald % (Auto) 12.5 H (2-11) % Eos % (Auto) 0.1 (0-4) % Baso % (Auto) 0.4 (0-2) % Lymph # (Auto) 1.2 (1.2-4.9) X10*3/uL [place] # (Auto) 1.0 (0.1-1.2) X10*3/uL Eos # (Auto) 0.0 (0.0-0.4) X10*3/uL Baso # (Auto) 0.0 (0.0-0.2) X10*3/uL Abs Immat Gran (auto) 0.04 H (0.00-0.03) X10*3/uL Absolute Neuts (auto) 5.3 (2.0-8.3) x10*3/uL Absolute Nucleated RBC 0.000 (0.0-0.012) X10*3/uL Nucleated RBC % (auto) 0.0 (0.0-0.2) /100WBC PT 23.0 H D (10.9-12.4) SEC INR 2.0 H (0.9-1.1) Sodium 128 L (135-145) mmol/L Potassium 3.3 D (3.3-5.1) mmol/L Chloride 93 L (96-108) mmol/L Carbon Dioxide 25 (22-29) mmol/L Anion Gap 13 (12-20) BUN 12 (9-16) mg/dL Creatinine 0.51 (0.5-1.4) mg/dL Estim Creat Clear Calc 72.5 Estimated GFR > 60 Random Glucose 116 H (60-115) mg/dL Calcium 8.1 L (8.4-10.2) mg/dL Magnesium 1.4 L* (1.6-2.6) mg/dL Total Bilirubin 1.0 (0.0-1.0) mg/dL AST 31 (5-31) U/L ALT 32 H (0-31) U/L Alkaline Phosphatase 231 H (39-117) U/L Troponin I High Sens 2.8 3.1 (<3.5-17.0) ng/L B-Natriuretic Peptide 804 H (<100) pg/mL Total Protein 6.4 L (6.5-8.0) g/dL Albumin 3.3 L (3.5-5.0) g/dL Independent Interpretation I performed an independent interpretation of an: EKG, Plain X-Ray (no discrete consolidation) and CT Scan (no PE) Interpretation: Rate: 124 Rhythm: afib with RVR [place]: normal RBBB ST T wave : no TRANG, inverted t waves anterior lateral leads qTC: 499 prior studies: no change The study has been interpreted contemporaneously by me. . Radiology Impression Discussion of test interpretation with radiology: I have reviewed the radiologist's reading. Independent Historian Clinical information obtained from an independent historian. History obtained from or confirmed by: EMS External Record Review External record reviewed: Inpatient record and Outpatient record Critical Care Time Critical Care Time Critical Care Time: Yes Total Critical Care Time: 60 Attestation: Time is exclusive of separately billable procedures. Time includes: direct patient care, patient reassessment, coordination of patient care, interpretation of data (laboratory data, pulse oximetry, arterial blood gases and chest xrays), review of patient's medical records, medical consultation and documentation of patient care. IV dilt x 2, IV dilt gtt, IV magnesium to prevent arrythmias. Procedures excluded from critical care time: central intravenous line placement and electrocardiography. Discharge Plan Discharge Clinical Impression: Atrial fibrillation with rapid ventricular response, Hypomagnesemia, Acute hyponatremia CHF (congestive heart failure) Qualifiers: Heart failure type: unspecified Heart failure chronicity: acute on chronic Q ualified Code(s): I50.9 - Heart failure, unspecified Patient Disposition: Admitted As Inpatient Print Language: [place] Irish
--- NOTE | 2025-05-22 16:39 | PC.NURSE ---
Pt given IV lasix. Incontinent in brief. Pt was changed and cleaned. Placed purewick on pt. Will continue to monitor.
[2025-05-22 17:52] LABS: Troponin-I High Sensitivity 3.1 ng/L (<3.5-17.0)
[2025-05-22] MEDS: iohexoL 350 MG/ML 100 ML INFUS..BTL IV (17:52)
--- NOTE | 2025-05-22 19:27 | PM.IMHP ---
History of Present Illness Date of Service: 05/22/25 Attending physician on admission: Raisa Crystal Chief Complaint: Cough Yesenia Fisher is 84 years old woman with past medical history significant for atrial fibrillation on Eliquis, multiple myeloma with multiple thoracic and lumbar metastatic lesions, type 2 diabetes mellitus and hyperlipidemia presents to the emergency department complaining of dry cough. She attributes her cough to postnasal drip. She also reported some retrosternal discomfort. Denied shortness on breath, palpitations, fever or chills. She denied any acute gastrointestinal or genitourinary symptoms. Recently, her Lasix was increased to 2 tablets daily. She denied toxic habits. In the ED, she was found to have tachycardia consistent with rapid AFib. Other vital signs are stable. Blood workup showed no leukocytosis. Hemoglobin is 12.2 and platelets 177. INR is 2.0. Magnesium is 1.4. Creatinine and BUN are normal, 0.51 and 12, respectively. Transaminases are elevated, ALT 32, alk-phos 231, AST 31 and total bilirubin 1.0. Troponin is 2.8 then 3.1. ECG showed atrial fibrillation with rapid ventricular response and right bundle-branch block. Chest CTA showed no PE, it did showed moderate right and small pleural effusion with bibasilar dependent opacities, likely atelectasis and lytic lesions to several vertebrae likely consistent with metastasis. ED tx: Magnesium 2 g, diltiazem 10 mg IV then Cardizem IV infusion, furosemide 20 mg IV Review of Systems Review of Systems: All 12 systems were reviewed and normal except as noted in HPI. [facility] Medical History Hyponatremia DM type 2 (diabetes mellitus, type 2) Spinal stenosis 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 Lesion of bone of lumbosacral spine Multiple myeloma Lower back pain Atrial fibrillation with RVR Impacted cerumen of both ears Dysplastic nevus Vitamin D deficiency Annual physical exam Palpitations Leukoplakia of tongue Hyperlipidemia Peripheral neuropathy Dysuria Family History Father No problems noted. Mother No problems noted. Son Diabetes Surgical History H/O arthroscopy of knee H/O varicose vein ligation H/O: hysterectomy H/O mastectomy H/O colonoscopy Social History Household Members: None Household Members Other:: lives alone, independent, daughter lives close Housing: House Do you presently have visiting nurse or other home services: No Alcohol intake: former Patient Tobacco Use Status: Never used Tobacco e-Cigarette/Vaping Use: Never Used Second Hand Smoke Exposure: No Advance Directives: No Advance Directives Information Provided: Yes Do you have a plan to hurt others: No Plan service: No Current occupational status: retired Gender identity: Female Cognitive needs: No Hearing needs: No Vision needs: Yes Meds Allergies Allergy/AdvReac Type Severity Reaction Status Date / Time hydralazine Allergy Unknown Verified 05/22/25 14:15 hydrochlorothiazide AdvReac Intermediate Palpitation Verified 05/22/25 14:15 s amlodipine AdvReac DIZZINESS Verified 05/22/25 14:15 sotalol AdvReac Palpitation Verified 05/22/25 14:15 s Active Medications: Current Medications Acetaminophen (Acetaminophen 325 Mg Tablet) 975 mg PO Q6H PRN PRN Reason: Pain, Mild 1-3,fever,headache Calcium Carbonate (Calcium Carbonate 750 Mg Tab.Chew) 750 mg PO Q4H PRN PRN Reason: Heartburn Diltiazem HCl 125 mg/ Sodium (Chloride) 125 mls @ 0 mls/hr IVCONT .Q0M [facility]; Protocol Last Titration: 05/22/25 18:53 Dose: 15 mg/hr, 15 mls/hr Magnesium Hydroxide (Milk Of Magnesia 30 Ml Oral.Susp) 30 ml PO DAILY PRN PRN Reason: Constipation Melatonin (Melatonin 3 Mg Tablet) 6 mg PO BEDTIME PRN PRN Reason: Insomnia Sodium Chloride (0.9 % Sodium Chloride Flush 3 Ml Syringe) 3 ml IVFLUSH QSHIFT [facility] Home Medications ?Medication ?Instructions ?Recorded ?Confirmed ?Last Taken ?Type omeprazole 20 mg capsule,delayed 20 mg PO DAILY@0630 03/19/25 05/22/25 05/22/25 History release Lactobacillus rhamnosus GG 10 1 cap PO BID 05/22/25 05/22/25 05/22/25 History billion cell capsule (Culturelle) atorvastatin 10 mg tablet (Lipitor) 10 mg PO BEDTIME 05/22/25 05/22/2525 History sodium chloride 1,000 mg soluble 1,000 mg PO DAILY 05/22/25 05/22/25 05/22/25 History tablet Physical Exam Vital Signs and Narrative: Vital Signs: Last Vital Signs Temp 98.5 F 05/22/25 19:17 Pulse 98 05/22/25 19:17 Resp 12 05/22/25 19:17 BP 117/81 05/22/25 19:17 Pulse Ox 95 05/22/25 19:17 O2 Del Method Nasal Cannula 05/22/25 19:17 O2 Flow Rate 2 05/22/25 19:17 BMI result Body Mass Index 24.1 Constitutional - Awake and Alert, No apparent distress HEENT - PERRLA, EOMI Heart - irregular, tachycardic, no murmur Lungs - Normal lung expansion, Normal respiratory effort, No respiratory distress. Decreased breath sound at bases. No wheezing or rhonchi. Gastrointestinal - NT / ND; +BS; No rebound or guarding Extremities - pitting edema to the lower extremities. Musculoskeletal - Normal inspection, normal ROM Skin - Warm/Dry Neurological - Alert & oriented x3. Moving all extremities spontaneously. Normal speech. Psychological - Appropriate affect Results Labs 05/22/25 14:47 05/22/25 14:47 Labs: Laboratory Results - last 24 hr 05/22/25 05/22/25 14:47 14:48 MCV 90.1 MCH 31.0 MCHC 34.5 RDW 15.2 Plt Count 177 D MPV 9.9 Immature Gran % (Auto) 0.5 H Neut % (Auto) 70.4 Lymph % (Auto) 16.1 L [place] % (Auto) 12.5 H Eos % (Auto) 0.1 Baso % (Auto) 0.4 Lymph # (Auto) 1.2 [place] # (Auto) 1.0 Eos # (Auto) 0.0 Baso # (Auto) 0.0 Abs Immat Gran (auto) 0.04 H Absolute Neuts (auto) 5.3 Absolute Nucleated RBC 0.000 Nucleated RBC % (auto) 0.0 PT 23.0 H D INR 2.0 H Anion Gap 13 Estim Creat Clear Calc 72.5 Estimated GFR > 60 Random Glucose 116 H Calcium 8.1 L Magnesium 1.4 L* Total Bilirubin 1.0 AST 31 ALT 32 H Alkaline Phosphatase 231 H B-Natriuretic Peptide 804 H Total Protein 6.4 L Albumin 3.3 L Imaging Radiologist's Impressions: Impressions Chest X-Ray 05/22/25 14:48 IMPRESSION: Left basilar opacity raises concern for pneumonia but could represent atelectasis. Changes in the right lung base are probably related to atelectasis, though pneumonia is not ruled out. Electronically signed by: Randy Solano MD 05/22/2025 03:03 PM EDT RP Assessment and Plan (1) CHF (congestive heart failure): Qualifiers: Heart failure chronicity: acute on chronic Heart failure type: unspecified Qualified Code(s): I50.9 - Heart failure, unspecified Status: Acute (2) Atrial fibrillation with rapid ventricular response: Status: Acute Plan Yesenia Fisher is 84 y/o woman presents with: Atrial fibrillation with rapid ventricular response associated with bilateral pleural effusion with component of decompensated diastolic congestive heart failure. Telemetry. Continue Lasix 20 mg IV daily. Continue Cardizem IV infusion and Eliquis. Hold metoprolol and Cardizem p.o. for now. Daily weights. I's and O's. Low-salt diet. Obtain echocardiogram. Cardiology consult. Multiple myeloma with multiple thoracic and lumbar metastatic lesions causing chronic back pain. Follows as the patient with Dr. Watts. Oxycodone 5 mg PO q4h prn. Essential hypertension. Continue lisinopril. Chronic hyponatremia. On sodium chloride tablets. Continue to monitor. History of type 2 diabetes mellitus. Not taking medications for this. Check hemoglobin A1c. BG checks before meals at bedtime. Hyperlipidemia. Continue atorvastatin. GERD. Continue omeprazole. Code status: Full DVT prophylaxis: Luz Maria Patient will need hospitalization for at least 2 midnights for AFib with rapid ventricular response treatment with IV Cardizem drip, IV diuresis and evaluation by Cardiology. Quality Stroke Does the patient have a stroke diagnosis?: No VTE Prior VTE?: No VTE Risk Level:: Medical - moderate - high VTE Device Contraindication: Treatment Not Indicated VTE Drug Contraindication: N/A - Med Ordered
--- NOTE | 2025-05-22 19:56 | PHA.MEDREC ---
Addendum entered by Kev Ferraro RPh 05/22/25 20:08: Reviewed by [facility]. Daughter states no longer taking Lisinopril. Original Note: Pharmacy Consult ? Medication Reconciliation Pharmacy has completed the medication reconciliation. Spoke to patient daughter over patient phone to confirm med list. Daughter states patient is no longer taking Atenolol 37.5 mg, Hydrocortisone cream, Lorazepam 0.5 mg, Senna 8.6 mg and Simethicone 80 mg. Daughter confirmed Eliquis 5 mg BID and Sodium chloride 1,000 mg daily. Patient had all her morning medications today.
--- NOTE | 2025-05-22 20:02 | PC.NURSE ---
pt on max titration Cardizem drip, HR remains uncontrolled and varies 90-150. Hospitalist aware, no new orders at this time. pt asymptomatic
--- NOTE | 2025-05-22 21:22 | MHC.EDTECH ---
Emptied the canister. It had 700ml of urine
[2025-05-22 22:01] LABS: Glucose, Whole Blood 161 mg/dL (60-115)
--- NOTE | 2025-05-22 22:30 | PC.NURSE ---
pt repositioned onto right side for comfort. purewick in place
[2025-05-23] VITALS (13 sets, daily range): BP systolic 92–119; BP diastolic 54–96; PULSE 73–125; RESP 16–21; TEMP 36.2–37; O2SAT 93–98; BMI 24.4
--- NOTE | 2025-05-23 | ECG_ITS ---
Test Reason : RAPID AFIB Blood Pressure : */* mmHG Vent. Rate : 107 BPM Atrial Rate : * BPM P-R Int : * ms QRS Dur : 130 ms QT Int : 388 ms P-R-T Axes : * 27 253 degrees QTcB Int : 517 ms Atrial fibrillation with rapid ventricular response Right bundle branch block T wave abnormality, consider inferolateral ischemia Abnormal ECG When compared with ECG of 22-May-2025 14:08, No significant change was found Referred By: Raisa Crystal Electronically Signed By: Toy Orourke
[2025-05-23 06:09] LABS: MANUAL DIFF FLAG NO
[2025-05-23 06:12] LABS: Hematocrit 30.8 % (37.0-47.0); Hemoglobin 10.9 g/dl (12.0-16.0); Imm Gran Abs Auto 0.03 X10*3/uL (0.00-0.03); Imm Gran Pct Auto 0.5 % (0.0-0.4); Lymphocytes Absolute Auto 1.5 X10*3/uL (1.2-4.9); Mean Corpuscular HGB Conc 35.4 g/dl (31.0-35.0); Mean Corpuscular Hemoglobin 31.1 pg (27.0-33.0); Mean Corpuscular Volume 88.0 fL (80.0-98.0); NRBC Abs Auto 0.000 X10*3/uL (0.0-0.012); NRBC Pct Auto 0.0 /100WBC (0.0-0.2); Platelet Count 154 X10*3/uL (160-400); Red Blood Count 3.50 X10*6/uL (4.20-5.50); White Blood Count 6.0 X10*3/uL (4.8-10.8)
[2025-05-23 06:25] LABS: Anion Gap 10 (12-20); Blood Urea Nitrogen 8 mg/dL (9-16); Calcium 7.6 mg/dL (8.4-10.2); Carbon Dioxide 27 mmol/L (22-29); Chloride 94 mmol/L (96-108); Creatinine Clr Calc Pharmacy 86.0; Estimated Glomerular Filt Rate > 60; Magnesium 1.7 mg/dL (1.6-2.6); Potassium 3.1 mmol/L (3.3-5.1); Sodium 128 mmol/L (135-145)
[2025-05-23 07:46] LABS: Glucose, Whole Blood 111 mg/dL (60-115)
[2025-05-23 07:55] LABS: Hemoglobin A1C 164.4356 umol/L; Total Hemoglobin (HGBA1C) 2952.7515 umol/L
--- NOTE | 2025-05-23 07:56 | P.PNIM_ITS ---
Subjective Subjective Date of Service: 05/23/25 Interval History: Patient reports mild symptomatic improvement, continues to respond to diuretics Cardiology consulted -we will DC Cardizem drip and switch her back to p.o. home meds continue monitoring Interesting for her chronic hyponatremia, we are continuing her salt tablet Review of Systems Review of Systems: Yes all other systems are reviewed and are negative Physical Exam 2 Exam: Exam: General: AOx3, no acute distress Resp: CTA bilaterally CVS: S1, S2, RRR GI: +BS, NT, no distention Skin: Warm, dry Neuro: Cranial nerves II-XII grossly intact bilaterally. Motor grossly intact bilaterally Extremities: Mild bilateral lower extremity edema Psych: Appropriate affect Vital Signs: Vital Signs: Last Vital Signs Temp 97.2 F 05/23/25 07:51 Pulse 106 H 05/23/25 07:51 Resp 20 05/23/25 07:51 BP 118/67 05/23/25 07:51 Pulse Ox 96 05/23/25 07:51 O2 Del Method Nasal Cannula 05/23/25 07:51 O2 Flow Rate 2 05/23/25 07:51 BMI result Body Mass Index 24.4 Objective Data Active Medications Acetaminophen (Acetaminophen 325 Mg Tablet) 975 mg PO Q6H PRN PRN Reason: Pain, Mild 1-3,fever,headache Apixaban (Apixaban 5 Mg Tablet) 5 mg PO BID [facility] Last Admin: 05/22/25 21:31 Dose: 5 mg Documented By: CAMILLE Atorvastatin Calcium (Atorvastatin Calcium 10 Mg Tablet) 10 mg PO BEDTIME [facility] Last Admin: 05/22/25 21:31 Dose: 10 mg Documented By: CAMILLE Calcium Carbonate (Calcium Carbonate 750 Mg Tab.Chew) 750 mg PO Q4H PRN PRN Reason: Heartburn Dextrose (Dextrose 50 % 25 Gm/50 Ml Syringe) 25 gm IVPUSH Q15M PRN; Protocol PRN Reason: per Hypoglycemia Standing Ord. Furosemide (Furosemide 20 Mg Tablet) 20 mg PO DAILY [facility]; Protocol Glucose (Glucose Gel 15 Gm Gel..Gram.) 15 gm PO Q15M PRN; Protocol PRN Reason: per Hypoglycemia Standing Ord. Diltiazem HCl 125 mg/ Sodium (Chloride) 125 mls @ 0 mls/hr IVCONT .Q0M [facility]; Protocol Last Admin: 05/23/25 03:01 Dose: 10 mg/hr, 10 mls/hr Documented By: JOHNNY Comments: rate decreased to 10mg/hr at 0150 Insulin Human Lispro (Insulin Lispro 100 Unit/Ml 3 Ml Vial) 0 unit SUBCUT QIDACHS [facility]; Protocol Last Admin: 05/22/25 22:08 Dose: 2 unit Documented By: CAMILLE Magnesium Hydroxide (Milk Of Magnesia 30 Ml Oral.Susp) 30 ml PO DAILY PRN PRN Reason: Constipation Melatonin (Melatonin 3 Mg Tablet) 6 mg PO BEDTIME PRN PRN Reason: Insomnia Omeprazole (Omeprazole 20 Mg Capsule.Dr) 20 mg PO DAILY@0630 [facility] Last Admin: 05/23/25 06:43 Dose: 20 mg Documented By: JOHNNY Oxycodone HCl (Oxycodone Hcl Immed Release 5 Mg Tablet) 5 mg PO Q4H PRN PRN Reason: back pain Sodium Chloride (0.9 % Sodium Chloride Flush 3 Ml Syringe) 3 ml IVFLUSH QSHIFT [facility] Last Admin: 05/23/25 03:00 Dose: Not Given Documented By: JOHNNY Non-Admin Reason: IV Running Sodium Chloride (Sodium Chloride Tab 1 Gm Tablet) 1 gm PO DAILY [facility] Labs 05/23/25 05:56 05/23/25 05:56 Labs: Laboratory Results - last 24 hr 05/22/25 05/22/25 05/22/25 14:47 14:48 21:57 MCV 90.1 MCH 31.0 MCHC 34.5 RDW 15.2 Plt Count 177 D MPV 9.9 Immature Gran % (Auto) 0.5 H Neut % (Auto) 70.4 Lymph % (Auto) 16.1 L [place] % (Auto) 12.5 H Eos % (Auto) 0.1 Baso % (Auto) 0.4 Lymph # (Auto) 1.2 [place] # (Auto) 1.0 Eos # (Auto) 0.0 Baso # (Auto) 0.0 Abs Immat Gran (auto) 0.04 H Absolute Neuts (auto) 5.3 Absolute Nucleated RBC 0.000 Nucleated RBC % (auto) 0.0 PT 23.0 H D INR 2.0 H Anion Gap 13 Estim Creat Clear Calc 72.5 Estimated GFR > 60 POC Glucose 161 H Random Glucose 116 H Estimat Average Glucose Hemoglobin A1c % Calcium 8.1 L Magnesium 1.4 L* Total Bilirubin 1.0 AST 31 ALT 32 H Alkaline Phosphatase 231 H B-Natriuretic Peptide 804 H Total Protein 6.4 L Albumin 3.3 L 05/23/25 05/23/25 05:56 07:42 MCV 88.0 MCH 31.1 MCHC 35.4 H RDW 15.0 Plt Count 154 L MPV 9.4 Immature Gran % (Auto) 0.5 H Neut % (Auto) 59.2 Lymph % (Auto) 24.5 [place] % (Auto) 15.0 H Eos % (Auto) 0.5 Baso % (Auto) 0.3 Lymph # (Auto) 1.5 [place] # (Auto) 0.9 Eos # (Auto) 0.0 Baso # (Auto) 0.0 Abs Immat Gran (auto) 0.03 Absolute Neuts (auto) 3.5 Absolute Nucleated RBC 0.000 Nucleated RBC % (auto) 0.0 PT INR Anion Gap 10 L Estim Creat Clear Calc 86.0 Estimated GFR > 60 POC Glucose 111 Random Glucose 109 Estimat Average Glucose 160 Hemoglobin A1c % 7.2 H Calcium 7.6 L D Magnesium 1.7 Total Bilirubin AST ALT Alkaline Phosphatase B-Natriuretic Peptide Total Protein Albumin Assessment and Plan (1) Atrial fibrillation with rapid ventricular response: Status: Acute Plan Patient is an 84-year-old female with PMH notable for MM, 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 AF c RVR likely 2/2 Decompensated HFpEF Initially managed on Cardizem drip with good effect Cardio consulted Cont Welliko Lasix to 40 bid TTE Resume Toprol-XL 50 mg twice a day. Given home dose of diltiazem 240 mg, and stop the drip. Continue IV diuretics. Would try rate control strategy for now. If she continues to be symptomatic or difficult to control then she may need cardioversion on Sunday. Multiple myeloma with multiple thoracic and lumbar metastatic lesions causing chronic back pain. Follows as the patient with Dr. Watts. Oxycodone 5 mg PO q4h prn. Essential hypertension. Continue lisinopril. Chronic hyponatremia. On sodium chloride tablets. Continue to monitor. History of type 2 diabetes mellitus. Not taking medications for this. Check hemoglobin A1c. BG checks before meals at bedtime. Hyperlipidemia. Continue atorvastatin. GERD. Continue omeprazole. Code status: Full DVT prophylaxis: [employer] Quality Stroke Does the patient have a stroke diagnosis?: No VTE Prior VTE?: No VTE Risk Level:: Medical - moderate - high VTE Device Contraindication: Treatment Not Indicated VTE Drug Contraindication: N/A - Med Ordered
[2025-05-23] MEDS: 0.9 % Sodium Chloride Flush 3 ML SYRINGE IVFLUSH ×3 (09:07→20:16)
[2025-05-23] MEDS: Furosemide 20 MG/2 ML VIAL IVPUSH ×2 (09:46→15:43)
[2025-05-23] MEDS: Sodium Chloride Tab 1 GM TABLET PO (09:51)
[2025-05-23] MEDS: Potassium Chloride ER 20 MEQ TAB.ER.PRT 40 MEQ PO (09:52)
[2025-05-23] MEDS: Sodium,Potassium Phosphates POWD.PACK 2 PACKET PO (09:53)
[2025-05-23 11:48] LABS: Glucose, Whole Blood 131 mg/dL (60-115)
--- NOTE | 2025-05-23 11:48 | P.CONCA_ITS ---
History of Present Illness History of Present Illness Date of Service: 05/23/25 Requesting physician: Mora Winter Chief complaint: Rapid A-fib Narrative: 84-year-old female who is presenting for atrial fibrillation with rapid ventricular response. She has a visiting nurse who noticed her heart rate to be elevated and advised her to come the emergency department. She was noted to be in AFib. She previously has history of AFib and was taking Eliquis for anticoagulation and was on diltiazem 240 mg and metoprolol succinate 50 mg twice a day. She was noticed to be hypoxic and is currently on supplemental oxygen. She has been diuresed with IV diuretics for congestive heart failure. Overall she is feeling better. Reviewing her EKGs on our system she was in atrial fibrillation in November 2024. Subsequently she had Holter monitoring which showed that he was back in sinus rhythm. [facility] Past Medical History Medical History Hyponatremia DM type 2 (diabetes mellitus, type 2) Spinal stenosis 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 Lesion of bone of lumbosacral spine Multiple myeloma Lower back pain Atrial fibrillation with RVR Impacted cerumen of both ears Dysplastic nevus Vitamin D deficiency Annual physical exam Palpitations Leukoplakia of tongue Hyperlipidemia Peripheral neuropathy Dysuria Family History Family History Father No problems noted. Mother No problems noted. Son Diabetes Surgical History Surgical History H/O arthroscopy of knee H/O varicose vein ligation H/O: hysterectomy H/O mastectomy H/O colonoscopy Social History Social History Household Members: Family Household Members Other:: d/c from [facility] 05/06 staying w/ daughter Barbara at this time. Housing: House Do you presently have visiting nurse or other home services: No Alcohol intake: former Patient Tobacco Use Status: Never used Tobacco e-Cigarette/Vaping Use: Never Used Second Hand Smoke Exposure: No service: No Current occupational status: retired Gender identity: Female Cognitive needs: No Hearing needs: No Vision needs: Yes Meds Allergies Allergy/AdvReac Type Severity Reaction Status Date / Time hydralazine Allergy Unknown Verified 05/22/25 14:15 hydrochlorothiazide AdvReac Intermediate Palpitation Verified 05/22/25 14:15 s amlodipine AdvReac DIZZINESS Verified 05/22/25 14:15 sotalol AdvReac Palpitation Verified 05/22/25 14:15 s Active Medications: Current Medications Acetaminophen (Acetaminophen 325 Mg Tablet) 975 mg PO Q6H PRN PRN Reason: Pain, Mild 1-3,fever,headache Apixaban (Apixaban 5 Mg Tablet) 5 mg PO BID [facility] Last Admin: 05/23/25 09:09 Dose: 5 mg Atorvastatin Calcium (Atorvastatin Calcium 10 Mg Tablet) 10 mg PO BEDTIME [facility] Last Admin: 05/22/25 21:31 Dose: 10 mg Calcium Carbonate (Calcium Carbonate 750 Mg Tab.Chew) 750 mg PO Q4H PRN PRN Reason: Heartburn Dextrose (Dextrose 50 % 25 Gm/50 Ml Syringe) 25 gm IVPUSH Q15M PRN; Protocol PRN Reason: per Hypoglycemia Standing Ord. Furosemide (Furosemide 20 Mg/2 Ml Vial) 20 mg IVPUSH BID@0900,1800 [facility]; Protocol Last Admin: 05/23/25 09:46 Dose: 20 mg Glucose (Glucose Gel 15 Gm Gel..Gram.) 15 gm PO Q15M PRN; Protocol PRN Reason: per Hypoglycemia Standing Ord. Diltiazem HCl 125 mg/ Sodium (Chloride) 125 mls @ 0 mls/hr IVCONT .Q0M [facility]; Protocol Last Admin: 05/23/25 03:01 Dose: 10 mg/hr, 10 mls/hr Insulin Human Lispro (Insulin Lispro 100 Unit/Ml 3 Ml Vial) 0 unit SUBCUT QIDACHS [facility]; Protocol Last Admin: 05/23/25 08:57 Dose: Not Given Magnesium Hydroxide (Milk Of Magnesia 30 Ml Oral.Susp) 30 ml PO DAILY PRN PRN Reason: Constipation Melatonin (Melatonin 3 Mg Tablet) 6 mg PO BEDTIME PRN PRN Reason: Insomnia Omeprazole (Omeprazole 20 Mg Capsule.Dr) 20 mg PO DAILY@0630 [facility] Last Admin: 05/23/25 06:43 Dose: 20 mg Oxycodone HCl (Oxycodone Hcl Immed Release 5 Mg Tablet) 5 mg PO Q4H PRN PRN Reason: back pain Sodium Chloride (0.9 % Sodium Chloride Flush 3 Ml Syringe) 3 ml IVFLUSH QSHIFT [facility] Last Admin: 05/23/25 09:07 Dose: 3 ml Sodium Chloride (Sodium Chloride Tab 1 Gm Tablet) 1 gm PO DAILY [facility] Last Admin: 05/23/25 09:51 Dose: 1 gm Home Medications ?Medication ?Instructions ?Recorded ?Confirmed ?Last Taken ?Type omeprazole 20 mg capsule,delayed 20 mg PO DAILY@0630 0 03/19/25 05/22/25 05/22/25 History release Lactobacillus rhamnosus GG 10 1 cap PO BID 05/22/2505/22/25 History billion cell capsule (Culturelle) atorvastatin 10 mg tablet (Lipitor) 10 mg PO BEDTIME 0 05/22/25 05/22/25 05/21/25 History sodium chloride 1,000 mg soluble 1,000 mg PO DAILY 02/0805/22/25 05/22/25 History tablet Physical Exam 2 Vital Signs: Vital Signs: Last Vital Signs Temp 97.2 F 05/23/25 07:51 Pulse 106 H 05/23/25 07:51 Resp 20 05/23/25 07:51 BP 118/67 05/23/25 07:51 Pulse Ox 96 05/23/25 07:51 O2 Del Method Nasal Cannula 05/23/25 07:51 O2 Flow Rate 2 05/23/25 07:51 BMI result Body Mass Index 24.4 GENERAL APPEARANCE: in no acute distress, pleasant. NECK: no carotid bruit, + jugular venous distention. SKIN: no suspicious lesions, warm and dry. HEART: no murmurs, irregular rate and rhythm. LUNGS: clear to auscultation bilaterally. ABDOMEN: soft, nontender. EXTREMITIES: no edema. PERIPHERAL PULSES: equal. NEUROLOGIC: No gross deficits, AAO X 3 Objective Labs and Meds 05/23/25 05:56 05/23/25 05:56 Lab results: Laboratory Results - last 24 hr 05/22/25 05/22/25 05/22/25 14:47 14:48 17:17 WBC 7.6 RBC 3.93 L Hgb 12.2 Hct 35.4 L MCV 90.1 MCH 31.0 MCHC 34.5 RDW 15.2 Plt Count 177 D MPV 9.9 Immature Gran % (Auto) 0.5 H Neut % (Auto) 70.4 Lymph % (Auto) 16.1 L [place] % (Auto) 12.5 H Eos % (Auto) 0.1 Baso % (Auto) 0.4 Lymph # (Auto) 1.2 [place] # (Auto) 1.0 Eos # (Auto) 0.0 Baso # (Auto) 0.0 Abs Immat Gran (auto) 0.04 H Absolute Neuts (auto) 5.3 Absolute Nucleated RBC 0.000 Nucleated RBC % (auto) 0.0 PT 23.0 H D INR 2.0 H Sodium 128 L Potassium 3.3 D Chloride 93 L Carbon Dioxide 25 Anion Gap 13 BUN 12 Creatinine 0.51 Estim Creat Clear Calc 72.5 Estimated GFR > 60 POC Glucose Random Glucose 116 H Estimat Average Glucose Hemoglobin A1c % Calcium 8.1 L Magnesium 1.4 L* Total Bilirubin 1.0 AST 31 ALT 32 H Alkaline Phosphatase 231 H Troponin I High Sens 2.8 3.1 B-Natriuretic Peptide 804 H Total Protein 6.4 L Albumin 3.3 L 05/22/25 05/23/25 05/23/25 21:57 05:56 07:42 WBC 6.0 RBC 3.50 L Hgb 10.9 L Hct 30.8 L MCV 88.0 MCH 31.1 MCHC 35.4 H RDW 15.0 Plt Count 154 L MPV 9.4 Immature Gran % (Auto) 0.5 H Neut % (Auto) 59.2 Lymph % (Auto) 24.5 [place] % (Auto) 15.0 H Eos % (Auto) 0.5 Baso % (Auto) 0.3 Lymph # (Auto) 1.5 [place] # (Auto) 0.9 Eos # (Auto) 0.0 Baso # (Auto) 0.0 Abs Immat Gran (auto) 0.03 Absolute Neuts (auto) 3.5 Absolute Nucleated RBC 0.000 Nucleated RBC % (auto) 0.0 PT INR Sodium 128 L Potassium 3.1 L Chloride 94 L Carbon Dioxide 27 Anion Gap 10 L BUN 8 L Creatinine 0.43 L Estim Creat Clear Calc 86.0 Estimated GFR > 60 POC Glucose 161 H 111 Random Glucose 109 Estimat Average Glucose 160 Hemoglobin A1c % 7.2 H Calcium 7.6 L D Magnesium 1.7 Total Bilirubin AST ALT Alkaline Phosphatase Troponin I High Sens B-Natriuretic Peptide Total Protein Albumin 05/23/25 11:44 WBC RBC Hgb Hct MCV MCH MCHC RDW Plt Count MPV Immature Gran % (Auto) Neut % (Auto) Lymph % (Auto) [place] % (Auto) Eos % (Auto) Baso % (Auto) Lymph # (Auto) [place] # (Auto) Eos # (Auto) Baso # (Auto) Abs Immat Gran (auto) Absolute Neuts (auto) Absolute Nucleated RBC Nucleated RBC % (auto) PT INR Sodium Potassium Chloride Carbon Dioxide Anion Gap BUN Creatinine Estim Creat Clear Calc Estimated GFR POC Glucose 131 H Random Glucose Estimat Average Glucose Hemoglobin A1c % Calcium Magnesium Total Bilirubin AST ALT Alkaline Phosphatase Troponin I High Sens B-Natriuretic Peptide Total Protein Albumin Imaging Radiologist's impression: Impressions Chest X-Ray 05/22/25 14:48 IMPRESSION: Left basilar opacity raises concern for pneumonia but could represent atelectasis. Changes in the right lung base are probably related to atelectasis, though pneumonia is not ruled out. Electronically signed by: Radny Solano MD 05/22/2025 03:03 PM EDT Assessment and Plan (1) CHF (congestive heart failure): Qualifiers: Heart failure chronicity: acute on chronic Heart failure type: u nspecified Qualified Code(s): I50.9 - Heart failure, unspecified Status: Acute (2) Atrial fibrillation with rapid ventricular response: Status: Acute Plan Paroxysmal atrial fibrillation and congestive heart failure in an 84-year-old lady. She has multiple myeloma. Resume Toprol-XL 50 mg twice a day. Given home dose of diltiazem 240 mg and stop the drip. Continue IV diuretics. Would try rate control strategy for now. If she continues to be symptomatic or difficult to control then she may need cardioversion on Sunday. Thank you for allowing me to participate in the care of your patient. Please feel free to contact me if you have any questions. Procedures Date of Service Date of Service: 05/23/25
--- NOTE | 2025-05-23 12:08 | MHC.CM.PN ---
IMM delivered. Jena lives in a home alone, but has been staying w/ her daughter, Joslyn, the last few weeks as she hasn't been feeling well. Previously independent, but daughter is assisting w/ ADL's PRN at this time. Ambulating w/ walker. Reports she is active w/ [facility]. Return referral sent. PCP Krista Allen MD HCP on file and verified. DP: Goal is home, resume family support and [facility] services. Daughter transport. CM will continue to follow.
[2025-05-23 16:14] LABS: Glucose, Whole Blood 162 mg/dL (60-115)
[2025-05-23] MEDS: Metoprolol Succinate ER 50 MG TAB.ER.24H PO (20:12)
[2025-05-23 20:13] LABS: Glucose, Whole Blood 178 mg/dL (60-115)
[2025-05-23] MEDS: dilTIAZem HCL CD 240 MG CAP.ER.DEG PO (20:13)
[2025-05-23] MEDS: Furosemide 40 MG/4 ML VIAL IVPUSH (20:13)
[2025-05-24 03:33] VITALS: BP 100/70; PULSE 114; RESP 16; TEMP 36.6; O2SAT 98
--- NOTE | 2025-05-24 07:49 | P.PNIM_ITS ---
Subjective Subjective Date of Service: 05/24/25 Interval History: Patient appears to be symptomatically better compared to presentation We will continue current cardiac meds Review of Systems Review of Systems: Yes all other systems are reviewed and are negative Physical Exam 2 Exam: Exam: General: AOx3, no acute distress Resp: CTA bilaterally CVS: S1, S2, RRR GI: +BS, NT, no distention Extremities: Mild bilateral lower extremity edema Psych: Appropriate affect Vital Signs: Vital Signs: Last Vital Signs Temp 97.8 F 05/24/25 03:33 Pulse 114 H 05/24/25 03:33 Resp 16 05/24/25 03:33 BP 100/70 05/24/25 03:33 Pulse Ox 98 05/24/25 03:33 O2 Del Method Nasal Cannula 05/24/25 03:33 O2 Flow Rate 2 05/24/25 03:33 BMI result Body Mass Index 24.4 Objective Data Active Medications Acetaminophen (Acetaminophen 325 Mg Tablet) 975 mg PO Q6H PRN PRN Reason: Pain, Mild 1-3,fever,headache Apixaban (Apixaban 5 Mg Tablet) 5 mg PO BID [facility] Last Admin: 05/23/25 20:12 Dose: 5 mg Documented By: JOHNNY Atorvastatin Calcium (Atorvastatin Calcium 10 Mg Tablet) 10 mg PO BEDTIME [facility] Last Admin: 05/23/25 20:12 Dose: 10 mg Documented By: JOHNNY Calcium Carbonate (Calcium Carbonate 750 Mg Tab.Chew) 750 mg PO Q4H PRN PRN Reason: Heartburn Dextrose (Dextrose 50 % 25 Gm/50 Ml Syringe) 25 gm IVPUSH Q15M PRN; Protocol PRN Reason: per Hypoglycemia Standing Ord. Diltiazem HCl (Diltiazem Hcl Cd 240 Mg Cap.Er.Deg) 240 mg PO DAILY [facility]; Protocol Last Admin: 05/23/25 20:13 Dose: 240 mg Documented By: JOHNNY Furosemide (Furosemide 40 Mg Tablet) 40 mg PO BID@0830,1330 [facility]; Protocol Glucose (Glucose Gel 15 Gm Gel..Gram.) 15 gm PO Q15M PRN; Protocol PRN Reason: per Hypoglycemia Standing Ord. Insulin Human Lispro (Insulin Lispro 100 Unit/Ml 3 Ml Vial) 0 unit SUBCUT QIDACHS [facility]; Protocol Last Admin: 05/23/25 20:29 Dose: 2 unit Documented By: JOHNNY Magnesium Hydroxide (Milk Of Magnesia 30 Ml Oral.Susp) 30 ml PO DAILY PRN PRN Reason: Constipation Melatonin (Melatonin 3 Mg Tablet) 6 mg PO BEDTIME PRN PRN Reason: Insomnia Metoprolol Succinate (Metoprolol Succinate Er 50 Mg Tab.Er.24h) 50 mg PO BID [facility]; Protocol Last Admin: 05/23/25 20:12 Dose: 50 mg Documented By: JOHNNY Omeprazole (Omeprazole 20 Mg Capsule.Dr) 20 mg PO DAILY@0630 [facility] Last Admin: 05/24/25 06:36 Dose: 20 mg Documented By: JOHNNY Oxycodone HCl (Oxycodone Hcl Immed Release 5 Mg Tablet) 5 mg PO Q8H PRN PRN Reason: back pain Sodium Chloride (0.9 % Sodium Chloride Flush 3 Ml Syringe) 3 ml IVFLUSH QSHIFT [facility] Last Admin: 05/23/25 20:16 Dose: 3 ml Documented By: JOHNNY Sodium Chloride (Sodium Chloride Tab 1 Gm Tablet) 1 gm PO DAILY [facility] Last Admin: 05/23/25 09:51 Dose: 1 gm Documented By: CHRISTINA Labs 05/24/25 07:23 05/24/25 07:23 Labs: Laboratory Results - last 24 hr 05/23/25 05/23/25 05/23/25 05:56 11:44 16:07 POC Glucose 131 H 162 H Estimat Average Glucose 160 Hemoglobin A1c % 7.2 H 05/23/25 20:05 POC Glucose 178 H Estimat Average Glucose Hemoglobin A1c % Assessment and Plan (1) Atrial fibrillation with rapid ventricular response: Status: Acute Plan Patient is an 84-year-old female with PMH notable for MM, 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 AF c RVR likely 2/2 Decompensated HFpEF Initially managed on Cardizem drip with good effect Cont Eliquis, Lasix to 40 bid , Cardizem 240 mg home dose, Toprol-XL 50 mg p.o. b.i.d. Would try rate control strategy for now. If she continues to be symptomatic or difficult to control then she may need cardioversion on Sunday. Multiple myeloma with multiple thoracic and lumbar metastatic lesions causing chronic back pain. Follows as the patient with Dr. Watts. Oxycodone 5 mg PO q4h prn. Essential hypertension. Continue lisinopril. Chronic hyponatremia. - Hypokalemia-secondary to diuretics salt tablets contraindicated given her CHF which could likely have been the cause of her current decompensation, we will reach out to Nephrology so that she could follow up outpatient, given that she is unable to tolerate IV potassium, we will start her on spironolactone History of type 2 diabetes mellitus. Not taking medications for this. Check hemoglobin A1c. BG checks before meals at bedtime. Hyperlipidemia. Continue atorvastatin. GERD. Continue omeprazole. DVT prophylaxis: Eliquis This note is constructed using voice recognition software. While every effort has been made to ensure accuracy, security team lead errors may have been included. Quality Stroke Does the patient have a stroke diagnosis?: No VTE Prior VTE?: No VTE Risk Level:: Medical - moderate - high VTE Device Contraindication: Treatment Not Indicated VTE Drug Contraindication: N/A - Med Ordered
[2025-05-24 07:58] LABS: Glucose, Whole Blood 100 mg/dL (60-115)
[2025-05-24 08:00] VITALS: BP 96/62; PULSE 87; RESP 18; TEMP 36.6; O2SAT 93
[2025-05-24 08:09] LABS: MANUAL DIFF FLAG NO
[2025-05-24 08:29] LABS: Hematocrit 33.9 % (37.0-47.0); Hemoglobin 11.7 g/dl (12.0-16.0); Imm Gran Abs Auto 0.02 X10*3/uL (0.00-0.03); Imm Gran Pct Auto 0.4 % (0.0-0.4); Lymphocytes Absolute Auto 1.6 X10*3/uL (1.2-4.9); Mean Corpuscular HGB Conc 34.5 g/dl (31.0-35.0); Mean Corpuscular Hemoglobin 31.0 pg (27.0-33.0); Mean Corpuscular Volume 89.9 fL (80.0-98.0); NRBC Abs Auto 0.000 X10*3/uL (0.0-0.012); NRBC Pct Auto 0.0 /100WBC (0.0-0.2); Platelet Count 180 X10*3/uL (160-400); Red Blood Count 3.77 X10*6/uL (4.20-5.50); White Blood Count 5.4 X10*3/uL (4.8-10.8)
[2025-05-24] MEDS: dilTIAZem HCL CD 240 MG CAP.ER.DEG PO (08:55)
[2025-05-24] MEDS: Metoprolol Succinate ER 50 MG TAB.ER.24H PO (08:55)
[2025-05-24] MEDS: Sodium Chloride Tab 1 GM TABLET PO (08:55)
[2025-05-24] MEDS: 0.9 % Sodium Chloride Flush 3 ML SYRINGE IVFLUSH ×3 (08:59→22:52)
[2025-05-24 09:17] LABS: Alanine Aminotransferase 39 U/L (0-31); Albumin Level 2.8 g/dL (3.5-5.0); Alkaline Phosphatase 184 U/L (39-117); Anion Gap 10 (12-20); Aspartate Amino Transferase 44 U/L (5-31); Blood Urea Nitrogen 7 mg/dL (9-16); Calcium 7.5 mg/dL (8.4-10.2); Carbon Dioxide 29 mmol/L (22-29); Chloride 96 mmol/L (96-108); Creatinine Clr Calc Pharmacy 90.2; Estimated Glomerular Filt Rate > 60; Potassium 2.8 mmol/L (3.3-5.1); Sodium 132 mmol/L (135-145); Total Protein 5.6 g/dL (6.5-8.0)
[2025-05-24] MEDS: Potassium Chloride ER 20 MEQ TAB.ER.PRT 40 MEQ PO (09:32)
[2025-05-24] MEDS: Potassium Chloride/H20 10 MEQ/100 ML PIGGYBACK 100 MEQ IV ×4 (09:51→17:16)
--- NOTE | 2025-05-24 11:13 | PM.PNCARD ---
Subjective Subjective Date of Service: 05/24/25 Interval history: Seen examined at bedside. Hypokalemic today. Feeling better though. Physical Exam Vital Signs: Last Vital Signs Temp 97.8 F 05/24/25 08:00 Pulse 87 05/24/25 08:00 Resp 18 05/24/25 08:00 BP 96/62 05/24/25 08:00 Pulse Ox 93 05/24/25 08:00 O2 Del Method Nasal Cannula 05/24/25 08:00 O2 Flow Rate 2 05/24/25 08:00 BMI result Body Mass Index 24.4 GENERAL APPEARANCE: in no acute distress, pleasant. NECK: no carotid bruit, + jugular venous distention. SKIN: no suspicious lesions, warm and dry. HEART: no murmurs, irregular rate and rhythm. LUNGS: clear to auscultation bilaterally. ABDOMEN: soft, nontender. EXTREMITIES: no edema. PERIPHERAL PULSES: equal. NEUROLOGIC: No gross deficits, AAO X 3 Objective Labs and Meds 05/24/25 07:23 05/24/25 07:23 Lab results: Laboratory Results - last 24 hr 05/23/25 05/23/25 05/23/25 11:44 16:07 20:05 WBC RBC Hgb Hct MCV MCH MCHC RDW Plt Count MPV Immature Gran % (Auto) Neut % (Auto) Lymph % (Auto) [place] % (Auto) Eos % (Auto) Baso % (Auto) Lymph # (Auto) [place] # (Auto) Eos # (Auto) Baso # (Auto) Abs Immat Gran (auto) Absolute Neuts (auto) Absolute Nucleated RBC Nucleated RBC % (auto) Sodium Potassium Chloride Carbon Dioxide Anion Gap BUN Creatinine Estim Creat Clear Calc Estimated GFR POC Glucose 131 H 162 H 178 H Random Glucose Calcium Total Bilirubin AST ALT Alkaline Phosphatase Total Protein Albumin 05/24/25 05/24/25 07:23 07:42 WBC 5.4 RBC 3.77 L Hgb 11.7 L Hct 33.9 L MCV 89.9 MCH 31.0 MCHC 34.5 RDW 14.8 Plt Count 180 MPV 10.4 Immature Gran % (Auto) 0.4 Neut % (Auto) 52.9 Lymph % (Auto) 30.5 [place] % (Auto) 13.5 H Eos % (Auto) 2.1 Baso % (Auto) 0.6 Lymph # (Auto) 1.6 [place] # (Auto) 0.7 Eos # (Auto) 0.1 Baso # (Auto) 0.0 Abs Immat Gran (auto) 0.02 Absolute Neuts (auto) 2.8 Absolute Nucleated RBC 0.000 Nucleated RBC % (auto) 0.0 Sodium 132 L Potassium 2.8 L* Chloride 96 Carbon Dioxide 29 Anion Gap 10 L BUN 7 L Creatinine 0.41 L Estim Creat Clear Calc 90.2 Estimated GFR > 60 POC Glucose 100 Random Glucose 94 Calcium 7.5 L Total Bilirubin 1.1 H AST 44 H ALT 39 H Alkaline Phosphatase 184 H Total Protein 5.6 L Albumin 2.8 L Progress Note: A&P Assessment and plan (1) CHF (congestive heart failure): Status: Acute (2) Paroxysmal atrial fibrillation: Status: Acute Plan 84-year-old female presenting with atrial fibrillation and congestive heart failure. Rate controlled currently with metoprolol and diltiazem. Still mildly volume overloaded but has hypokalemia. Unable to tolerate IV potassium and we will have to use oral potassium. Would favor using spironolactone 25 mg daily. Lasix at discharge she will be increased to 40 mg daily from 20 mg daily. Stop the salt tabs. For hyponatremia discuss with Nephrology for alternative because sodium chloride we will lead to more fluid retention. Thank you for allowing me to participate in the care of your patient. Please feel free to contact me if you have any questions. Time Spent With Patient Time: Total time managing care of this patient today ____ minutes. Progress Note: Quality Stroke Does the patient have a stroke diagnosis?: No Procedures Date of Service Date of Service: 05/24/25
[2025-05-24 11:45] LABS: Glucose, Whole Blood 192 mg/dL (60-115)
[2025-05-24 11:55] VITALS: BP 123/74; PULSE 105; RESP 18; TEMP 36.6; O2SAT 94
[2025-05-24 13:47] LABS: Magnesium 1.6 mg/dL (1.6-2.6)
[2025-05-24 14:21] LABS: Potassium 3.4 mmol/L (3.3-5.1)
[2025-05-24] MEDS: Potassium Chloride ER 20 MEQ TAB.ER.PRT PO (15:53)
[2025-05-24 16:00] VITALS: BP 105/53; PULSE 69; RESP 18; TEMP 36.2; O2SAT 94
[2025-05-24 16:03] LABS: Glucose, Whole Blood 173 mg/dL (60-115)
[2025-05-24 20:00] VITALS: BP 93/62; PULSE 78; RESP 16; TEMP 36.1; O2SAT 93
[2025-05-24 20:55] LABS: Glucose, Whole Blood 119 mg/dL (60-115)
[2025-05-25] VITALS: BP 106/64; PULSE 81; RESP 18; TEMP 36.4; O2SAT 94
[2025-05-25 03:39] VITALS: BP 114/54; PULSE 97; RESP 18; TEMP 36.4; O2SAT 96
--- NOTE | 2025-05-25 07:00 | CA_ITS ---
Transthoracic Echocardiogram Patient (Last, First, Middle): Yesenia Fisher A Gender: Female Date of : 1940 Age: 84 Procedure Date: 05/25/2025 Procedure Type: Transthoracic [place]ocardiogram [place] [facility] [place]: 165.1 cm Weight: 66.23 kg BSA: 1.73 m2 Heart Rate: bpm BP: 114 / 54 mmHg Rap Artist: Referring MD: Raisa Crystal MD Brick Baker: South Zepeda MD Symptoms: Rapid AFib, pleural effusions Study Quality: Adequate ECG Rhythm: Atrial Fibrillation w RVR Conclusions: - 1. Normal LV ejection fraction of 60 65% with mild LVH 2. Moderate biatrial enlargement 3. Mild aortic and mitral regurgitation 4. Upper limits of normal RV systolic pressure with mildly elevated right atrial pressures 5. Trivial pericardial effusion Findings Left Ventricle Normal left ventricular size and systolic function. There is mildly increased left ventricular wall thickness. The visually estimated ejection fraction is between 60-65%. Diastolic function is indeterminate on the basis of available data. Right Ventricle Mildly increased right ventricular cavity size. There is normal right ventricular systolic function. Atria The left atrium is moderately dilated. There is no evidence of interatrial shunt. The right atrium is moderately dilated. Aortic Valve There is mild calcification of the aortic valve. There is no aortic valve stenosis. There is mild aortic valve regurgitation. Mitral Valve There is mild anterior and posterior mitral leaflet thickening. There is mild mitral annular calcification. There is mild mitral valve regurgitation. There is no mitral valve stenosis. Pulmonic Valve The pulmonic valve is likely normal. There is trace pulmonic valve regurgitation. Tricuspid Valve Normal tricuspid valve structure. There is moderate tricuspid valve regurgitation. Mildly elevated right atrial pressure. There is no evidence of pulmonary hypertension. Great Vessels The pulmonary artery was not well visualized. There is mild dilatation of the ascending aorta measuring 4.00 cm. Venous The inferior vena cava is mildly dilated and collapses greater than 50% with inspiration. Pericardium/Pleural There is a trivial loculated pericardial effusion overlying the left ventricle. Measurements 2D Linear Measurements IVSd: 1.27 0.6-0.9/0.6-1.0 cm LVIDd: 4.06 3.9-5.3/4.2-5.9 cm LVIDd Index: 2.35 2.4-3.2/2.2-3.1 cm/m2 LVIDs: 2.53 2.0-3.6 cm LVPWd: 1.27 0.7-1.1 cm LA Diam: 3.70 2.7-3.8/3.0-4.0 cm LAIDs Index: 2.14 1.5-2.3 cm/m2 LV Mass: 229.40 67-162/88-224 g LV Mass Index: 132.60 43-95/49-115 g/m2 LVOT Diam: 2.20 3.0+(-)1.3 cm 2D Systolic Function EF 4C: 68.30 >55% EF 2C: 58.10 >55% EF BiP: 62.50 >55% Mitral Valve MV Pk E: 0.99 MV Decel Time: 162.00 E'Lateral: 12.40 E'Medial: 8.92 E/E' Med: 11.00 E/E' Lat: 7.90 PHT: 48.00 MVA PHT: 4.58 Decel Ritchie: 6.06 Aortic Valve AoV Pk Ishan: 1.66 AoV Mn Ishan: 1.05 AoV VTI: 0.25 AoV Pk Grad: 11.00 Aov Mn Grad: 5.00 MABEL Cont.VTI: 2.75 LVOT LVOT Pk Ishan: 0.88 LVOT Mn Ishan: 0.53 LVOT VTI: 0.18 LVOT Pk Grad: 3.00 LVOT Mn Grad: 1.00 LVOT Diam: 2.20 LVOT Area: 3.80 Diastolic Function MV Pk E: 0.99 E'Medial: 8.92 E/E' Med: 11.00 E' Laterial: 12.40 E/E' Lat: 7.90 Right Ventricle TAPSE (mm): 18.30 TVS' Ishan: 13.40 Tricuspid Valve TR Pk Ishan: 2.73 TR Pk Grad: 30.00 RA Press: 8.00 RVSP: 38.00 Great Vessels Aorta Sinus of Valsalva: 3.20 2.0-3.5 cm Ao Asc: 4.00 2.1-3.4 cm Pulmonary Valve PV Pk Ishan: 0.70 Peak PV Grad: 2.00 Updated in Other Vendor System with Status of Final South Zepeda MD electronically signed on 05/25/2025 12:07:42 PM with status of Final
[2025-05-25 07:59] LABS: Glucose, Whole Blood 96 mg/dL (60-115)
[2025-05-25 08:00] VITALS: BP 100/75; PULSE 92; RESP 18; TEMP 36.4; O2SAT 94
[2025-05-25 08:05] LABS: MANUAL DIFF FLAG NO
[2025-05-25 08:09] LABS: Hematocrit 35.4 % (37.0-47.0); Hemoglobin 11.7 g/dl (12.0-16.0); Imm Gran Abs Auto 0.03 X10*3/uL (0.00-0.03); Imm Gran Pct Auto 0.5 % (0.0-0.4); Lymphocytes Absolute Auto 1.8 X10*3/uL (1.2-4.9); Mean Corpuscular HGB Conc 33.1 g/dl (31.0-35.0); Mean Corpuscular Hemoglobin 30.2 pg (27.0-33.0); Mean Corpuscular Volume 91.5 fL (80.0-98.0); NRBC Abs Auto 0.000 X10*3/uL (0.0-0.012); NRBC Pct Auto 0.0 /100WBC (0.0-0.2); Platelet Count 222 X10*3/uL (160-400); Red Blood Count 3.87 X10*6/uL (4.20-5.50); White Blood Count 5.7 X10*3/uL (4.8-10.8)
[2025-05-25 08:27] LABS: Alanine Aminotransferase 70 U/L (0-31); Albumin Level 2.9 g/dL (3.5-5.0); Alkaline Phosphatase 203 U/L (39-117); Anion Gap 10 (12-20); Aspartate Amino Transferase 73 U/L (5-31); Blood Urea Nitrogen 9 mg/dL (9-16); Calcium 7.9 mg/dL (8.4-10.2); Carbon Dioxide 27 mmol/L (22-29); Chloride 100 mmol/L (96-108); Creatinine Clr Calc Pharmacy 80.4; Estimated Glomerular Filt Rate > 60; Potassium 4.1 mmol/L (3.3-5.1); Sodium 133 mmol/L (135-145); Total Protein 5.8 g/dL (6.5-8.0)
[2025-05-25 08:34] LABS: B Type Natriuretic Peptide 409 pg/mL (<100)
[2025-05-25] MEDS: Metoprolol Succinate ER 50 MG TAB.ER.24H PO ×2 (09:21→21:28)
[2025-05-25] MEDS: dilTIAZem HCL CD 240 MG CAP.ER.DEG PO (09:21)
[2025-05-25] MEDS: 0.9 % Sodium Chloride Flush 3 ML SYRINGE IVFLUSH ×3 (09:21→21:25)
--- NOTE | 2025-05-25 09:43 | P.PNCA_ITS ---
Subjective Subjective Date of Service: 05/25/25 Principal diagnosis: Atrial fibrillation, CHF Interval history: Patient's potassium seems better compared to yesterday since p.o. replacement. Rate is slightly elevated compared to yesterday. Overall negative balance of 4 L. She says shortness of breath better. Leg edema is better. She denied any abdominal distension. No orthopnea, PND. No chest pain or rapid heart rate today. Review of Systems Constitutional: Reports no additional constitutional complaints Cardiovascular: Reports no additional cardiovascular complaints Respiratory: Reports no additional respiratory complaints Gastrointestinal: Reports no additional gastrointestinal complaints Musculoskeletal: Reports no additional musculoskeletal complaints Skin/Breast: Reports system reviewed and no additional complaints, except as docu Psychiatric: Reports no additional psychiatric complaints Endocrine: Reports no additional endocrine complaints Physical Exam Vital Signs: Last Vital Signs Temp 97.6 F 05/25/25 08:00 Pulse 92 05/25/25 08:00 Resp 18 05/25/25 08:00 BP 100/75 05/25/25 08:00 Pulse Ox 94 05/25/25 08:00 O2 Del Method Room Air 05/25/25 08:00 O2 Flow Rate 2 05/24/25 08:00 BMI result Body Mass Index 24.4 Const General: cooperative, comfortable, alert and awake Nutritional Appearance: average body habitus Orientation/consciousness: patient oriented x3 Neck Neck: Yes trachea midline, Yes supple and Yes no JVD Resp Effort & Inspection: normal respiratory effort Auscultation: crackles (coarse, right greater than left) Cardio Jugular venous distension: no JVD Rate: tachycardic Rhythm: abnormal rhythm irregularly irregular Heart sounds: S1 normal heart sound present, S2 normal heart sound present, no click, no gallops and no murmurs GI Auscultation: normal bowel sounds Skin General skin exam: no rashes or lesions noted Neuro General: patient oriented x3 and no focal motor deficits Extrem General: Yes no clubbing, cyanosis or edema Objective Labs and Meds 05/25/25 07:02 05/25/25 07:02 Lab results: Laboratory Results - last 24 hr 05/24/25 05/24/25 05/24/25 07:23 11:20 13:43 WBC RBC Hgb Hct MCV MCH MCHC RDW Plt Count MPV Immature Gran % (Auto) Neut % (Auto) Lymph % (Auto) [place] % (Auto) Eos % (Auto) Baso % (Auto) Lymph # (Auto) [place] # (Auto) Eos # (Auto) Baso # (Auto) Abs Immat Gran (auto) Absolute Neuts (auto) Absolute Nucleated RBC Nucleated RBC % (auto) Sodium Potassium 3.4 D Chloride Carbon Dioxide Anion Gap BUN Creatinine Estim Creat Clear Calc Estimated GFR POC Glucose 192 H Random Glucose Calcium Magnesium 1.6 Total Bilirubin AST ALT Alkaline Phosphatase B-Natriuretic Peptide Total Protein Albumin 05/24/25 05/24/25 05/25/25 15:24 20:44 07:02 WBC 5.7 RBC 3.87 L Hgb 11.7 L Hct 35.4 L MCV 91.5 MCH 30.2 MCHC 33.1 RDW 14.9 Plt Count 222 MPV 10.1 Immature Gran % (Auto) 0.5 H Neut % (Auto) 54.2 Lymph % (Auto) 30.9 [place] % (Auto) 10.7 Eos % (Auto) 3.0 Baso % (Auto) 0.7 Lymph # (Auto) 1.8 [place] # (Auto) 0.6 Eos # (Auto) 0.2 Baso # (Auto) 0.0 Abs Immat Gran (auto) 0.03 Absolute Neuts (auto) 3.1 Absolute Nucleated RBC 0.000 Nucleated RBC % (auto) 0.0 Sodium 133 L Potassium 4.1 D Chloride 100 Carbon Dioxide 27 Anion Gap 10 L BUN 9 Creatinine 0.46 L Estim Creat Clear Calc 80.4 Estimated GFR > 60 POC Glucose 173 H 119 H Random Glucose 97 Calcium 7.9 L Magnesium Total Bilirubin 0.7 AST 73 H ALT 70 H Alkaline Phosphatase 203 H B-Natriuretic Peptide 409 H Total Protein 5.8 L Albumin 2.9 L 05/25/25 07:46 WBC RBC Hgb Hct MCV MCH MCHC RDW Plt Count MPV Immature Gran % (Auto) Neut % (Auto) Lymph % (Auto) [place] % (Auto) Eos % (Auto) Baso % (Auto) Lymph # (Auto) [place] # (Auto) Eos # (Auto) Baso # (Auto) Abs Immat Gran (auto) Absolute Neuts (auto) Absolute Nucleated RBC Nucleated RBC % (auto) Sodium Potassium Chloride Carbon Dioxide Anion Gap BUN Creatinine Estim Creat Clear Calc Estimated GFR POC Glucose 96 Random Glucose Calcium Magnesium Total Bilirubin AST ALT Alkaline Phosphatase B-Natriuretic Peptide Total Protein Albumin Progress Note: A&P Assessment and plan (1) Atrial fibrillation with rapid ventricular response: Status: Acute Assessment and Plan: Atrial fibrillation rapid ventricular response with borderline rate control. At this point time she is on Cardizem and metoprolol high dose with borderline salt blood pressure. No symptoms related to it although heart rate is running fast. Would give a couple doses of IV digoxin 0.25 mg IV push q.6 x2 doses as start on 0.125 mg starting tomorrow. Continue Eliquis. Continue full disclosure cardiac monitoring. (2) Acute congestive heart failure: Status: Acute Assessment and Plan: Acute heart failure with improved symptoms and currently appears to be euvolemic. She had bilateral crackles which most likely appear to be related to atelectasis. If clinically indicated consider repeat imaging especially chest x-ray or noncontrast CT. Incentive spirometry should be provided. Agree with oral Lasix at this point time at 40 mg daily. Continue spironolactone therapy has a neurohormonal modulator. Management of heart failure was discussed with her. Will sign off the case and follow up with you as needed Time Spent With Patient Time: Total time managing care of this patient today ____ minutes. Progress Note: Quality Stroke Does the patient have a stroke diagnosis?: No Procedures Date of Service Date of Service: 05/25/25
[2025-05-25 11:39] LABS: Glucose, Whole Blood 128 mg/dL (60-115)
[2025-05-25 11:41] VITALS: BP 119/83; PULSE 110; RESP 17; TEMP 36.6; O2SAT 96
--- NOTE | 2025-05-25 14:03 | P.PNIM_ITS ---
Subjective Subjective Date of Service: 05/25/25 Interval History: Follow up resp failure doing better today HR is improving Review of Systems Review of Systems: Yes all other systems are reviewed and are negative Physical Exam 2 Exam: Exam: Appearing in no acute distress lung sounds are clear to auscultation heart regular rate rhythm, clear S1, S2 positive bowel sounds, abdomen is soft, nontender neuro patient is alert x3, no focal deficits Vital Signs: Vital Signs: Last Vital Signs Temp 97.8 F 05/25/25 11:41 Pulse 110 H 05/25/25 11:41 Resp 17 05/25/25 11:41 BP 119/83 05/25/25 11:41 Pulse Ox 96 05/25/25 11:41 O2 Del Method Room Air 05/25/25 11:41 O2 Flow Rate 2 05/24/25 08:00 BMI result Body Mass Index 24.4 Objective Data Active Medications Acetaminophen (Acetaminophen 325 Mg Tablet) 975 mg PO Q6H PRN PRN Reason: Pain, Mild 1-3,fever,headache Apixaban (Apixaban 5 Mg Tablet) 5 mg PO BID [facility] Last Admin: 05/25/25 09:21 Dose: 5 mg Documented By: RAMU Atorvastatin Calcium (Atorvastatin Calcium 10 Mg Tablet) 10 mg PO BEDTIME [facility] Last Admin: 05/24/25 20:22 Dose: 10 mg Documented By: TRISHA Calcium Carbonate (Calcium Carbonate 750 Mg Tab.Chew) 750 mg PO Q4H PRN PRN Reason: Heartburn Dextrose (Dextrose 50 % 25 Gm/50 Ml Syringe) 25 gm IVPUSH Q15M PRN; Protocol PRN Reason: per Hypoglycemia Standing Ord. Digoxin (Digoxin 0.5 Mg/2 Ml Ampul) 0.25 mg IVPUSH Q6H CIELO; Protocol Stop: 05/25/25 16:31 Last Admin: 05/25/25 12:07 Dose: 0.25 mg Documented By: RAMU Diltiazem HCl (Diltiazem Hcl Cd 240 Mg Cap.Er.Deg) 240 mg PO DAILY [facility]ELO; Protocol Last Admin: 05/25/25 09:21 Dose: 240 mg Documented By: RAMU Furosemide (Furosemide 40 Mg Tablet) 40 mg PO DAILY [facility]; Protocol Glucose (Glucose Gel 15 Gm Gel..Gram.) 15 gm PO Q15M PRN; Protocol PRN Reason: per Hypoglycemia Standing Ord. Insulin Human Lispro (Insulin Lispro 100 Unit/Ml 3 Ml Vial) 0 unit SUBCUT QIDACHS [facility]; Protocol Last Admin: 05/25/25 12:06 Dose: Not Given Documented By: RAMU Non-Admin Reason: No Insulin Coverage Magnesium Hydroxide (Milk Of Magnesia 30 Ml Oral.Susp) 30 ml PO DAILY PRN PRN Reason: Constipation Melatonin (Melatonin 3 Mg Tablet) 6 mg PO BEDTIME PRN PRN Reason: Insomnia Metoprolol Succinate (Metoprolol Succinate Er 50 Mg Tab.Er.24h) 50 mg PO BID [facility]; Protocol Last Admin: 05/25/25 09:21 Dose: 50 mg Documented By: RAMU Omeprazole (Omeprazole 20 Mg Capsule.Dr) 20 mg PO DAILY@0630 [facility] Last Admin: 05/25/25 05:55 Dose: 20 mg Documented By: TRISHA Oxycodone HCl (Oxycodone Hcl Immed Release 5 Mg Tablet) 5 mg PO Q8H PRN PRN Reason: back pain Sodium Chloride (0.9 % Sodium Chloride Flush 3 Ml Syringe) 3 ml IVFLUSH QSHIFT [facility] Last Admin: 05/25/25 09:21 Dose: 3 ml Documented By: RAMU Spironolactone (Spironolactone 25 Mg Tablet) 25 mg PO DAILY [facility]; Protocol Last Admin: 05/25/25 09:31 Dose: 25 mg Documented By: RAMU Labs 05/25/25 07:02 05/25/25 07:02 Labs: Laboratory Results - last 24 hr 05/24/25 05/24/25 05/25/25 15:24 20:44 07:02 MCV 91.5 MCH 30.2 MCHC 33.1 RDW 14.9 Plt Count 222 MPV 10.1 Immature Gran % (Auto) 0.5 H Neut % (Auto) 54.2 Lymph % (Auto) 30.9 [place] % (Auto) 10.7 Eos % (Auto) 3.0 Baso % (Auto) 0.7 Lymph # (Auto) 1.8 [place] # (Auto) 0.6 Eos # (Auto) 0.2 Baso # (Auto) 0.0 Abs Immat Gran (auto) 0.03 Absolute Neuts (auto) 3.1 Absolute Nucleated RBC 0.000 Nucleated RBC % (auto) 0.0 Anion Gap 10 L Estim Creat Clear Calc 80.4 Estimated GFR > 60 POC Glucose 173 H 119 H Random Glucose 97 Calcium 7.9 L Total Bilirubin 0.7 AST 73 H ALT 70 H Alkaline Phosphatase 203 H B-Natriuretic Peptide 409 H Total Protein 5.8 L Albumin 2.9 L 05/25/25 05/25/25 07:46 11:25 MCV MCH MCHC RDW Plt Count MPV Immature Gran % (Auto) Neut % (Auto) Lymph % (Auto) [place] % (Auto) Eos % (Auto) Baso % (Auto) Lymph # (Auto) [place] # (Auto) Eos # (Auto) Baso # (Auto) Abs Immat Gran (auto) Absolute Neuts (auto) Absolute Nucleated RBC Nucleated RBC % (auto) Anion Gap Estim Creat Clear Calc Estimated GFR POC Glucose 96 128 H Random Glucose Calcium Total Bilirubin AST ALT Alkaline Phosphatase B-Natriuretic Peptide Total Protein Albumin Assessment and Plan (1) Atrial fibrillation with rapid ventricular response: Status: Acute Plan 84-year-old female with PMH notable for MM, 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 Paroxysmal afib with RVR likely 2/2 Decompensated HFpEF Initially managed on Cardizem drip with good effect Cont Eliquis Discussed with cardiology> decrease lasix to 40 mg daily, start Digoxin load 0.25mg x3 continue Cardizem 240 mg home dose, Toprol-XL 50 mg p.o. b.i.d. Multiple myeloma with multiple thoracic and lumbar metastatic lesions causing chronic back pain. Follows as the patient with Dr. Watts. Oxycodone 5 mg PO q4h prn. Essential hypertension. Continue lisinopril. Chronic hyponatremia. Hypokalemia resolved secondary to diuretics History of type 2 diabetes mellitus. Not taking medications for this. Check hemoglobin A1c. Hyperlipidemia. Continue atorvastatin. GERD. Continue omeprazole. DVT prophylaxis: Eliqumalik Quality Stroke Does the patient have a stroke diagnosis?: No VTE Prior VTE?: No VTE Risk Level:: Medical - moderate - high VTE Device Contraindication: Treatment Not Indicated VTE Drug Contraindication: N/A - Med Ordered
[2025-05-25 14:31] LABS: Hemoglobin A1C 165.3664 umol/L; Total Hemoglobin (HGBA1C) 3028.2471 umol/L
--- NOTE | 2025-05-25 15:10 | MHC.CM.PN ---
EMR reviewed and per MD rounds, pt is not medically cleared for discharge due to management of a-fib w/ RVR.
[2025-05-25 16:00] VITALS: BP 100/64; PULSE 70; RESP 18; TEMP 36.6; O2SAT 92
[2025-05-25 16:12] LABS: Glucose, Whole Blood 125 mg/dL (60-115)
[2025-05-25 20:00] VITALS: BP 97/59; PULSE 65; RESP 18; TEMP 36.6; O2SAT 96
[2025-05-25 20:03] LABS: Glucose, Whole Blood 122 mg/dL (60-115)
[2025-05-26] VITALS (7 sets, daily range): BP systolic 105–122; BP diastolic 60–81; PULSE 67–130; RESP 16–20; TEMP 36.1–36.7; O2SAT 95–98
[2025-05-26 07:33] LABS: MANUAL DIFF FLAG NO
[2025-05-26 07:34] LABS: Glucose, Whole Blood 92 mg/dL (60-115)
[2025-05-26 07:55] LABS: Hematocrit 37.4 % (37.0-47.0); Hemoglobin 12.4 g/dl (12.0-16.0); Imm Gran Abs Auto 0.04 X10*3/uL (0.00-0.03); Imm Gran Pct Auto 0.6 % (0.0-0.4); Lymphocytes Absolute Auto 1.6 X10*3/uL (1.2-4.9); Mean Corpuscular HGB Conc 33.2 g/dl (31.0-35.0); Mean Corpuscular Hemoglobin 30.4 pg (27.0-33.0); Mean Corpuscular Volume 91.7 fL (80.0-98.0); NRBC Abs Auto 0.000 X10*3/uL (0.0-0.012); NRBC Pct Auto 0.0 /100WBC (0.0-0.2); Platelet Count 252 X10*3/uL (160-400); Red Blood Count 4.08 X10*6/uL (4.20-5.50); White Blood Count 7.0 X10*3/uL (4.8-10.8)
[2025-05-26 08:27] LABS: Alanine Aminotransferase 57 U/L (0-31); Albumin Level 3.1 g/dL (3.5-5.0); Alkaline Phosphatase 191 U/L (39-117); Anion Gap 11 (12-20); Aspartate Amino Transferase 46 U/L (5-31); Blood Urea Nitrogen 7 mg/dL (9-16); Calcium 8.3 mg/dL (8.4-10.2); Carbon Dioxide 28 mmol/L (22-29); Chloride 99 mmol/L (96-108); Creatinine Clr Calc Pharmacy 74.0; Estimated Glomerular Filt Rate > 60; Potassium 3.7 mmol/L (3.3-5.1); Sodium 134 mmol/L (135-145); Total Protein 6.1 g/dL (6.5-8.0)
[2025-05-26] MEDS: 0.9 % Sodium Chloride Flush 3 ML SYRINGE IVFLUSH ×3 (08:33→20:49)
[2025-05-26 11:26] LABS: Glucose, Whole Blood 106 mg/dL (60-115)
--- NOTE | 2025-05-26 12:25 | PM.PNCARD ---
Subjective Subjective Date of Service: 05/26/25 Principal diagnosis: Atrial fibrillation, CHF Interval history: After receiving a couple of doses of IV digoxin patient's heart rate slowed down and overnight heart rate was in his 30s. No long pauses greater than 5 seconds. This morning when I saw her again and she was sitting in the chair her heart rate was in the 120s. No symptoms related to it. No shortness of breath. Review of Systems Constitutional: Reports no additional constitutional complaints Physical Exam Vital Signs: Last Vital Signs Temp 97.1 F 05/26/25 11:05 Pulse 68 05/26/25 11:05 Resp 17 05/26/25 11:05 BP 106/64 05/26/25 11:05 Pulse Ox 97 05/26/25 11:05 O2 Del Method Room Air 05/26/25 11:05 O2 Flow Rate 2 05/24/25 08:00 BMI result Body Mass Index 24.4 Const General: cooperative, comfortable, alert and awake Nutritional Appearance: average body habitus Orientation/consciousness: patient oriented x3 Neck Neck: Yes trachea midline, Yes supple and Yes no JVD Resp Effort & Inspection: normal respiratory effort Auscultation: crackles (coarse, right greater than left) Cardio Jugular venous distension: no JVD Rate: tachycardic Rhythm: abnormal rhythm irregularly irregular Heart sounds: S1 normal heart sound present, S2 normal heart sound present, no click, no gallops and no murmurs GI Auscultation: normal bowel sounds Skin General skin exam: no rashes or lesions noted Neuro General: patient oriented x3 and no focal motor deficits Extrem General: Yes no clubbing, cyanosis or edema Objective Labs and Meds 05/26/25 07:15 05/26/25 07:15 Lab results: Laboratory Results - last 24 hr 05/25/25 05/25/25 05/25/25 07:02 16:06 19:53 WBC RBC Hgb Hct MCV MCH MCHC RDW Plt Count MPV Immature Gran % (Auto) Neut % (Auto) Lymph % (Auto) [place] % (Auto) Eos % (Auto) Baso % (Auto) Lymph # (Auto) [place] # (Auto) Eos # (Auto) Baso # (Auto) Abs Immat Gran (auto) Absolute Neuts (auto) Absolute Nucleated RBC Nucleated RBC % (auto) Sodium Potassium Chloride Carbon Dioxide Anion Gap BUN Creatinine Estim Creat Clear Calc Estimated GFR POC Glucose 125 H 122 H Random Glucose Estimat Average Glucose 157 Hemoglobin A1c % 7.1 H Calcium Total Bilirubin AST ALT Alkaline Phosphatase Total Protein Albumin 05/26/25 05/26/25 05/26/25 07:15 07:30 11:10 WBC 7.0 RBC 4.08 L Hgb 12.4 Hct 37.4 MCV 91.7 MCH 30.4 MCHC 33.2 RDW 14.8 Plt Count 252 MPV 9.8 Immature Gran % (Auto) 0.6 H Neut % (Auto) 63.7 Lymph % (Auto) 22.2 [place] % (Auto) 9.8 Eos % (Auto) 3.0 Baso % (Auto) 0.7 Lymph # (Auto) 1.6 [place] # (Auto) 0.7 Eos # (Auto) 0.2 Baso # (Auto) 0.1 Abs Immat Gran (auto) 0.04 H Absolute Neuts (auto) 4.5 Absolute Nucleated RBC 0.000 Nucleated RBC % (auto) 0.0 Sodium 134 L Potassium 3.7 Chloride 99 Carbon Dioxide 28 Anion Gap 11 L BUN 7 L Creatinine 0.50 Estim Creat Clear Calc 74.0 Estimated GFR > 60 POC Glucose 92 106 Random Glucose 96 Estimat Average Glucose Hemoglobin A1c % Calcium 8.3 L Total Bilirubin 0.8 AST 46 H ALT 57 H Alkaline Phosphatase 191 H Total Protein 6.1 L Albumin 3.1 L Progress Note: A&P Assessment and plan (1) Atrial fibrillation with rapid ventricular response: Status: Acute Assessment and Plan: Atrial fibrillation with slow and fast ventricular response after additional triple agent yesterday. Will switch her to digoxin 0.125 mg IV push x1 today and continue with metoprolol. Hold Cardizem. Continue full oral anticoagulation as before. (2) Acute congestive heart failure: Status: Acute Assessment and Plan: Heart failure seems to be controlled. Continue oral diuretics along with spironolactone therapy. Strict intake and output chart needs to be pursued. Monitor electrolytes. Will require 1 more day of monitoring. Will follow up Time Spent With Patient Time: Total time managing care of this patient today ____ minutes. Progress Note: Quality Stroke Does the patient have a stroke diagnosis?: No Procedures Date of Service Date of Service: 05/26/25
--- NOTE | 2025-05-26 13:24 | HO.PM.IMPN ---
Subjective Subjective Date of Service: 05/26/25 Interval History: Follow up resp failure doing better today HR is improving Review of Systems Review of Systems: Yes all other systems are reviewed and are negative Physical Exam Exam: Exam: Appearing in no acute distress lung sounds are clear to auscultation heart regular rate rhythm, clear S1, S2 positive bowel sounds, abdomen is soft, nontender neuro patient is alert x3, no focal deficits Vital Signs: Vital Signs: Last Vital Signs Temp 97.1 F 05/26/25 11:05 Pulse 68 05/26/25 11:05 Resp 17 05/26/25 11:05 BP 106/64 05/26/25 11:05 Pulse Ox 97 05/26/25 11:05 O2 Del Method Room Air 05/26/25 11:05 O2 Flow Rate 2 05/24/25 08:00 BMI result Body Mass Index 24.4 Objective Data Active Medications Acetaminophen (Acetaminophen 325 Mg Tablet) 975 mg PO Q6H PRN PRN Reason: Pain, Mild 1-3,fever,headache Apixaban (Apixaban 5 Mg Tablet) 5 mg PO BID CIELO Last Admin: 05/26/25 08:32 Dose: 5 mg Documented By: RAMU Atorvastatin Calcium (Atorvastatin Calcium 10 Mg Tablet) 10 mg PO BEDTIME CIELO Last Admin: 05/25/25 21:24 Dose: 10 mg Documented By: RAMIRO Calcium Carbonate (Calcium Carbonate 750 Mg Tab.Chew) 750 mg PO Q4H PRN PRN Reason: Heartburn Dextrose (Dextrose 50 % 25 Gm/50 Ml Syringe) 25 gm IVPUSH Q15M PRN; Protocol PRN Reason: per Hypoglycemia Standing Ord. Diltiazem HCl (Diltiazem Hcl Cd 240 Mg Cap.Er.Deg) 240 mg PO DAILY CIELO; Protocol On Hold: 05/26/25 06:05 Comment: sinus pause Last Admin: 05/25/25 09:21 Dose: 240 mg Documented By: RAMU Furosemide (Furosemide 40 Mg Tablet) 40 mg PO DAILY CIELO; Protocol Last Admin: 05/26/25 08:31 Dose: 40 mg Documented By: RAMU Glucose (Glucose Gel 15 Gm Gel..Gram.) 15 gm PO Q15M PRN; Protocol PRN Reason: per Hypoglycemia Standing Ord. Hydroxyzine HCl (Hydroxyzine Hcl 25 Mg Tablet) 25 mg PO Q6H PRN PRN Reason: Anxiety Last Admin: 05/25/25 23:36 Dose: 25 mg Documented By: RAMIRO Insulin Human Lispro (Insulin Lispro 100 Unit/Ml 3 Ml Vial) 0 unit SUBCUT QIDACHS [facility]; Protocol Last Admin: 05/26/25 11:36 Dose: Not Given Documented By: RAMU Non-Admin Reason: No Insulin Coverage Magnesium Hydroxide (Milk Of Magnesia 30 Ml Oral.Susp) 30 ml PO DAILY PRN PRN Reason: Constipation Melatonin (Melatonin 3 Mg Tablet) 6 mg PO BEDTIME PRN PRN Reason: Insomnia Metoprolol Succinate (Metoprolol Succinate Er 50 Mg Tab.Er.24h) 50 mg PO BID [facility]; Protocol On Hold: 05/26/25 06:06 Comment: sinus pause Last Admin: 05/25/25 21:28 Dose: 50 mg Documented By: RAMIRO Omeprazole (Omeprazole 20 Mg Capsule.Dr) 20 mg PO DAILY@0630 [facility] Last Admin: 05/26/25 05:27 Dose: 20 mg Documented By: RAMIRO Oxycodone HCl (Oxycodone Hcl Immed Release 5 Mg Tablet) 5 mg PO Q8H PRN PRN Reason: back pain Sodium Chloride (0.9 % Sodium Chloride Flush 3 Ml Syringe) 3 ml IVFLUSH QSHIFT [facility] Last Admin: 05/26/25 08:33 Dose: 3 ml Documented By: RAMU Spironolactone (Spironolactone 25 Mg Tablet) 25 mg PO DAILY [facility]; Protocol Last Admin: 05/26/25 08:32 Dose: 25 mg Documented By: RAMU Labs 05/26/25 07:15 05/26/25 07:15 Labs: Laboratory Results - last 24 hr 05/25/25 05/25/25 05/25/25 07:02 16:06 19:53 MCV MCH MCHC RDW Plt Count MPV Immature Gran % (Auto) Neut % (Auto) Lymph % (Auto) [place] % (Auto) Eos % (Auto) Baso % (Auto) Lymph # (Auto) [place] # (Auto) Eos # (Auto) Baso # (Auto) Abs Immat Gran (auto) Absolute Neuts (auto) Absolute Nucleated RBC Nucleated RBC % (auto) Anion Gap Estim Creat Clear Calc Estimated GFR POC Glucose 125 H 122 H Random Glucose Estimat Average Glucose 157 Hemoglobin A1c % 7.1 H Calcium Total Bilirubin AST ALT Alkaline Phosphatase Total Protein Albumin 05/26/25 05/26/25 05/26/25 07:15 07:30 11:10 MCV 91.7 MCH 30.4 MCHC 33.2 RDW 14.8 Plt Count 252 MPV 9.8 Immature Gran % (Auto) 0.6 H Neut % (Auto) 63.7 Lymph % (Auto) 22.2 [place] % (Auto) 9.8 Eos % (Auto) 3.0 Baso % (Auto) 0.7 Lymph # (Auto) 1.6 [place] # (Auto) 0.7 Eos # (Auto) 0.2 Baso # (Auto) 0.1 Abs Immat Gran (auto) 0.04 H Absolute Neuts (auto) 4.5 Absolute Nucleated RBC 0.000 Nucleated RBC % (auto) 0.0 Anion Gap 11 L Estim Creat Clear Calc 74.0 Estimated GFR > 60 POC Glucose 92 106 Random Glucose 96 Estimat Average Glucose Hemoglobin A1c % Calcium 8.3 L Total Bilirubin 0.8 AST 46 H ALT 57 H Alkaline Phosphatase 191 H Total Protein 6.1 L Albumin 3.1 L Assessment and Plan (1) Atrial fibrillation with rapid ventricular response: Status: Acute Plan 84-year-old female with PMH notable for MM, 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 Follows as the patient with Dr. Watts. Oxycodone 5 mg PO q4h prn. Essential hypertension. Continue lisinopril. Chronic hyponatremia. Hypokalemia resolved secondary to diuretics History of type 2 diabetes mellitus. Not taking medications for this. Check hemoglobin A1c. Hyperlipidemia. Continue atorvastatin. GERD. Continue omeprazole. DVT prophylaxis: [employer] Quality Stroke Does the patient have a stroke diagnosis?: No VTE Prior VTE?: No VTE Risk Level:: Medical - moderate - high VTE Device Contraindication: Treatment Not Indicated VTE Drug Contraindication: N/A - Med Ordered
[2025-05-26 16:06] LABS: Glucose, Whole Blood 124 mg/dL (60-115)
[2025-05-26] MEDS: Metoprolol Succinate ER 50 MG TAB.ER.24H PO (20:48)
[2025-05-26 20:58] LABS: Glucose, Whole Blood 156 mg/dL (60-115)
[2025-05-27] VITALS (10 sets, daily range): BP systolic 105–117; BP diastolic 63–79; PULSE 74–120; RESP 16–20; TEMP 36.1–36.4; O2SAT 96–99
[2025-05-27 07:19] LABS: Glucose, Whole Blood 98 mg/dL (60-115)
[2025-05-27 07:21] LABS: MANUAL DIFF FLAG NO
[2025-05-27 07:23] LABS: Hematocrit 35.9 % (37.0-47.0); Hemoglobin 12.4 g/dl (12.0-16.0); Imm Gran Abs Auto 0.04 X10*3/uL (0.00-0.03); Imm Gran Pct Auto 0.6 % (0.0-0.4); Lymphocytes Absolute Auto 1.9 X10*3/uL (1.2-4.9); Mean Corpuscular HGB Conc 34.5 g/dl (31.0-35.0); Mean Corpuscular Hemoglobin 30.8 pg (27.0-33.0); Mean Corpuscular Volume 89.3 fL (80.0-98.0); NRBC Abs Auto 0.000 X10*3/uL (0.0-0.012); NRBC Pct Auto 0.0 /100WBC (0.0-0.2); Platelet Count 253 X10*3/uL (160-400); Red Blood Count 4.02 X10*6/uL (4.20-5.50); White Blood Count 6.3 X10*3/uL (4.8-10.8)
[2025-05-27 07:44] LABS: Alanine Aminotransferase 46 U/L (0-31); Albumin Level 3.0 g/dL (3.5-5.0); Alkaline Phosphatase 169 U/L (39-117); Anion Gap 13 (12-20); Aspartate Amino Transferase 32 U/L (5-31); Blood Urea Nitrogen 9 mg/dL (9-16); Calcium 8.2 mg/dL (8.4-10.2); Carbon Dioxide 26 mmol/L (22-29); Chloride 100 mmol/L (96-108); Creatinine Clr Calc Pharmacy 69.8; Estimated Glomerular Filt Rate > 60; Potassium 3.7 mmol/L (3.3-5.1); Sodium 135 mmol/L (135-145); Total Protein 5.9 g/dL (6.5-8.0)
[2025-05-27] MEDS: Metoprolol Succinate ER 50 MG TAB.ER.24H PO ×3 (08:31→20:11)
[2025-05-27] MEDS: 0.9 % Sodium Chloride Flush 3 ML SYRINGE IVFLUSH ×3 (09:02→20:16)
--- NOTE | 2025-05-27 09:41 | P.PNCA_ITS ---
Subjective Subjective Date of Service: 05/27/25 Principal diagnosis: Atrial fibrillation, CHF Interval history: Patient with atrial fibrillation with rapid ventricular response. No symptoms related to it. With minimal exertional heart rate goes up to 150. Did get digoxin yesterday. Also about metoprolol no Cardizem. Blood pressure is stable. No shortness of breath. No lightheadedness, syncope. Review of Systems Constitutional: Reports no additional constitutional complaints Cardiovascular: Reports no additional cardiovascular complaints Respiratory: Reports no additional respiratory complaints Musculoskeletal: Reports no additional musculoskeletal complaints Psychiatric: Reports no additional psychiatric complaints Physical Exam Vital Signs: Last Vital Signs Temp 96.9 F 05/27/25 07:20 Pulse 120 H 05/27/25 08:31 Resp 20 05/27/25 07:20 BP 117/75 05/27/25 09:01 Pulse Ox 96 05/27/25 07:20 O2 Del Method Room Air 05/27/25 07:20 O2 Flow Rate 2 05/24/25 08:00 BMI result Body Mass Index 24.4 Const General: cooperative, comfortable, alert and awake Nutritional Appearance: average body habitus Orientation/consciousness: patient oriented x3 Neck Neck: Yes trachea midline, Yes supple and Yes no JVD Resp Effort & Inspection: normal respiratory effort Auscultation: crackles (coarse, right greater than left) Cardio Jugular venous distension: no JVD Rate: tachycardic Rhythm: abnormal rhythm irregularly irregular Heart sounds: S1 normal heart sound present, S2 normal heart sound present, no click, no gallops and no murmurs GI Auscultation: normal bowel sounds Skin General skin exam: no rashes or lesions noted Neuro General: patient oriented x3 and no focal motor deficits Extrem General: Yes no clubbing, cyanosis or edema Objective Labs and Meds 05/27/25 06:58 05/27/25 06:58 Lab results: Laboratory Results - last 24 hr 05/26/25 05/26/25 05/26/25 11:10 16:02 20:51 WBC RBC Hgb Hct MCV MCH MCHC RDW Plt Count MPV Immature Gran % (Auto) Neut % (Auto) Lymph % (Auto) [place] % (Auto) Eos % (Auto) Baso % (Auto) Lymph # (Auto) [place] # (Auto) Eos # (Auto) Baso # (Auto) Abs Immat Gran (auto) Absolute Neuts (auto) Absolute Nucleated RBC Nucleated RBC % (auto) Sodium Potassium Chloride Carbon Dioxide Anion Gap BUN Creatinine Estim Creat Clear Calc Estimated GFR POC Glucose 106 124 H 156 H Random Glucose Calcium Total Bilirubin AST ALT Alkaline Phosphatase Total Protein Albumin 05/27/25 05/27/25 06:58 07:15 WBC 6.3 RBC 4.02 L Hgb 12.4 Hct 35.9 L MCV 89.3 MCH 30.8 MCHC 34.5 RDW 14.6 Plt Count 253 MPV 9.3 L Immature Gran % (Auto) 0.6 H Neut % (Auto) 55.2 Lymph % (Auto) 29.5 [place] % (Auto) 10.6 Eos % (Auto) 3.5 Baso % (Auto) 0.6 Lymph # (Auto) 1.9 [place] # (Auto) 0.7 Eos # (Auto) 0.2 Baso # (Auto) 0.0 Abs Immat Gran (auto) 0.04 H Absolute Neuts (auto) 3.5 Absolute Nucleated RBC 0.000 Nucleated RBC % (auto) 0.0 Sodium 135 Potassium 3.7 Chloride 100 Carbon Dioxide 26 Anion Gap 13 BUN 9 Creatinine 0.53 Estim Creat Clear Calc 69.8 Estimated GFR > 60 POC Glucose 98 Random Glucose 98 Calcium 8.2 L Total Bilirubin 0.6 AST 32 H ALT 46 H Alkaline Phosphatase 169 H Total Protein 5.9 L Albumin 3.0 L Progress Note: A&P Assessment and plan (1) Atrial fibrillation with rapid ventricular response: Status: Acute Assessment and Plan: Atrial fibrillation with still persistent rapid ventricular response with minimal exertion. She has no symptoms related to it. Will continue work with to medicines. Give digoxin 0.125 mg daily as well as increase metoprolol to 50 mg q.6 hours short-acting. Continue full oral anticoagulation. Continue maintain adequate oral hydration. Continue full disclosure cardiac telemetry. (2) Acute congestive heart failure: Status: Acute Assessment and Plan: CHF which is clinically appearing to be euvolemic well compensated. Crackles at lung basis, related probably atelectasis. Incentive spirometry. Continue Lasix as well as Jardiance. Will follow with you Time Spent With Patient Time: Total time managing care of this patient today ____ minutes. Progress Note: Quality Stroke Does the patient have a stroke diagnosis?: No Procedures Date of Service Date of Service: 05/27/25
[2025-05-27 11:29] LABS: Glucose, Whole Blood 128 mg/dL (60-115)
--- NOTE | 2025-05-27 13:43 | MHC.CM.PN ---
Pt. is not ready to DC, she has had some med changes rec by cardiology, DC Plan is home, resume [facility].
[2025-05-27 16:05] LABS: Glucose, Whole Blood 145 mg/dL (60-115)
[2025-05-27 20:01] LABS: Glucose, Whole Blood 247 mg/dL (60-115)
[2025-05-28] VITALS (7 sets, daily range): BP systolic 100–125; BP diastolic 73–84; PULSE 73–96; RESP 16–20; TEMP 36.2–36.4; O2SAT 96–98
[2025-05-28] MEDS: Metoprolol Succinate ER 50 MG TAB.ER.24H PO ×3 (02:58→15:42)
[2025-05-28 06:36] LABS: MANUAL DIFF FLAG NO
[2025-05-28 06:44] LABS: Hematocrit 38.5 % (37.0-47.0); Hemoglobin 12.9 g/dl (12.0-16.0); Imm Gran Abs Auto 0.05 X10*3/uL (0.00-0.03); Imm Gran Pct Auto 0.7 % (0.0-0.4); Lymphocytes Absolute Auto 2.2 X10*3/uL (1.2-4.9); Mean Corpuscular HGB Conc 33.5 g/dl (31.0-35.0); Mean Corpuscular Hemoglobin 30.6 pg (27.0-33.0); Mean Corpuscular Volume 91.2 fL (80.0-98.0); NRBC Abs Auto 0.000 X10*3/uL (0.0-0.012); NRBC Pct Auto 0.0 /100WBC (0.0-0.2); Platelet Count 280 X10*3/uL (160-400); Red Blood Count 4.22 X10*6/uL (4.20-5.50); White Blood Count 6.8 X10*3/uL (4.8-10.8)
[2025-05-28 07:14] LABS: Alanine Aminotransferase 45 U/L (0-31); Albumin Level 3.2 g/dL (3.5-5.0); Alkaline Phosphatase 163 U/L (39-117); Anion Gap 11 (12-20); Blood Urea Nitrogen 10 mg/dL (9-16); Calcium 9.1 mg/dL (8.4-10.2); Carbon Dioxide 29 mmol/L (22-29); Chloride 99 mmol/L (96-108); Creatinine Clr Calc Pharmacy 63.8; Estimated Glomerular Filt Rate > 60; Potassium 4.8 mmol/L (3.3-5.1); Sodium 134 mmol/L (135-145); Total Protein 6.3 g/dL (6.5-8.0)
[2025-05-28 07:22] LABS: Aspartate Amino Transferase 32 U/L (5-31)
[2025-05-28 07:24] LABS: Glucose, Whole Blood 99 mg/dL (60-115)
[2025-05-28] MEDS: 0.9 % Sodium Chloride Flush 3 ML SYRINGE IVFLUSH ×2 (08:28→15:47)
--- NOTE | 2025-05-28 10:36 | PM.PNCARD ---
Subjective Subjective Date of Service: 05/28/25 Principal diagnosis: Atrial fibrillation, CHF Interval history: Patient is feeling well. No shortness of breath. Heart rate is better controlled. Review of Systems Review of Systems Yes all other systems are reviewed and are negative Physical Exam Vital Signs: Last Vital Signs Temp 97.5 F 05/28/25 08:00 Pulse 96 05/28/25 08:30 Resp 18 05/28/25 08:00 BP 125/79 05/28/25 08:30 Pulse Ox 98 05/28/25 08:00 O2 Del Method Room Air 05/28/25 08:00 O2 Flow Rate 2 05/24/25 08:00 BMI result Body Mass Index 24.4 Const General: cooperative, comfortable, alert and awake Nutritional Appearance: average body habitus Orientation/consciousness: patient oriented x3 Neck Neck: Yes trachea midline, Yes supple and Yes no JVD Resp Effort & Inspection: normal respiratory effort Auscultation: crackles (coarse, right greater than left) Cardio Jugular venous distension: no JVD Rate: regular rate Rhythm: abnormal rhythm irregularly irregular Heart sounds: S1 normal heart sound present, S2 normal heart sound present, no click, no gallops and no murmurs GI Auscultation: normal bowel sounds Skin General skin exam: no rashes or lesions noted Neuro General: patient oriented x3 and no focal motor deficits Extrem General: Yes no clubbing, cyanosis or edema Objective Labs and Meds 05/28/25 06:11 05/28/25 06:11 Lab results: Laboratory Results - last 24 hr 05/27/25 05/27/25 05/27/25 11:25 16:02 19:57 WBC RBC Hgb Hct MCV MCH MCHC RDW Plt Count MPV Immature Gran % (Auto) Neut % (Auto) Lymph % (Auto) [place] % (Auto) Eos % (Auto) Baso % (Auto) Lymph # (Auto) [place] # (Auto) Eos # (Auto) Baso # (Auto) Abs Immat Gran (auto) Absolute Neuts (auto) Absolute Nucleated RBC Nucleated RBC % (auto) Sodium Potassium Chloride Carbon Dioxide Anion Gap BUN Creatinine Estim Creat Clear Calc Estimated GFR POC Glucose 128 H 145 H 247 H Random Glucose Calcium Total Bilirubin AST ALT Alkaline Phosphatase Total Protein Albumin 05/28/25 05/28/25 06:11 07:20 WBC 6.8 RBC 4.22 Hgb 12.9 Hct 38.5 MCV 91.2 MCH 30.6 MCHC 33.5 RDW 14.6 Plt Count 280 MPV 9.4 Immature Gran % (Auto) 0.7 H Neut % (Auto) 51.8 Lymph % (Auto) 32.9 [place] % (Auto) 10.2 Eos % (Auto) 3.4 Baso % (Auto) 1.0 Lymph # (Auto) 2.2 [place] # (Auto) 0.7 Eos # (Auto) 0.2 Baso # (Auto) 0.1 Abs Immat Gran (auto) 0.05 H Absolute Neuts (auto) 3.5 Absolute Nucleated RBC 0.000 Nucleated RBC % (auto) 0.0 Sodium 134 L Potassium 4.8 D Chloride 99 Carbon Dioxide 29 Anion Gap 11 L BUN 10 Creatinine 0.58 Estim Creat Clear Calc 63.8 Estimated GFR > 60 POC Glucose 99 Random Glucose 99 Calcium 9.1 D Total Bilirubin 0.6 AST 32 H ALT 45 H Alkaline Phosphatase 163 H Total Protein 6.3 L Albumin 3.2 L Progress Note: A&P Assessment and plan (1) Atrial fibrillation with rapid ventricular response: Status: Acute Assessment and Plan: Atrial fibrillation with better rate control on current therapy. Continue digoxin 0.125 mg daily and Toprol-XL 100 mg b.i.d.. Will follow up with Holter monitor next week along with digoxin assay. Continue full oral anticoagulation Eliquis. Follow up in the clinic in 2 weeks time. (2) Acute congestive heart failure: Status: Acute Assessment and Plan: Heart failure, in the setting of atrial fibrillation with diastolic dysfunction. Clinically euvolemic well compensated. Continue oral diuretic dose along with SGLT2 inhibitor therapy. Heart failure management discussed. Daily weight monitoring avoidance salt loading was discussed. Additional diuretics as need be. Will follow up in the clinic in 2 weeks time, sooner p.r.n.. Thank you for allowing me to partake in her care Time Spent With Patient Time: Total time managing care of this patient today ____ minutes. Progress Note: Quality Stroke Does the patient have a stroke diagnosis?: No Procedures Date of Service Date of Service: 05/28/25
[2025-05-28 11:54] LABS: Glucose, Whole Blood 124 mg/dL (60-115)
--- NOTE | 2025-05-28 12:37 | PM.DS ---
DS: Providers Provider Date of Service: 05/28/25 Date of admission: 05/22/25 19:13 Date of discharge: 05/28/25 Primary care physician: Krista Allen MD Consults: 05/22/25 19:36 Consult to Cardiology Routine Consulting Provider: 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 She attributes her cough to postnasal drip. She also reported some retrosternal discomfort. Denied shortness on breath, palpitations, fever or chills. She denied any acute gastrointestinal or genitourinary symptoms. Recently, her Lasix was increased to 2 tablets daily. She denied toxic habits. In the ED, she was found to have tachycardia consistent with rapid AFib. Other vital signs are stable. Blood workup showed no leukocytosis. Hemoglobin is 12.2 and platelets 177. INR is 2.0. Magnesium is 1.4. Creatinine and BUN are normal, 0.51 and 12, respectively. Transaminases are elevated, ALT 32, alk-phos 231, AST 31 and total bilirubin 1.0. Troponin is 2.8 then 3.1. ECG showed atrial fibrillation with rapid ventricular response and right bundle-branch block. Chest CTA showed no PE, it did showed moderate right and small pleural effusion with bibasilar dependent opacities, likely atelectasis and lytic lesions to several vertebrae likely consistent with metastasis.ED tx: Magnesium 2 g, diltiazem 10 mg IV then Cardizem IV infusion, furosemide 20 mg IV [facility] Patient was admitted to telemetry and seen in consultation by Cardiology. She was maintained on Cardizem drip and during 24 hours after admission Cardizem drip was DC in favor of p.o.. She was seen in consultation by Cardiology; recommendation was loading dose of IV digoxin. Patient subsequently had heart rate in the 30s for multiple episodes but no pauses greater than 5 seconds. Digoxin was ultimately dose at 0.125 mg along with full-dose Eliquis. Patient will be discharged on digoxin full-dose Eliquis and continue beta blockade. Cardiology will follow up in office when an appointment for a Holter and adjustment of therapies. She is discharged in AFib with acceptable rate control at this time Time Attestation Discharge Coordination Time (in mins): 35 Quality: Safe Use of Opioids Does Pt have an Active Cancer Diagnosis on the Problem List?: No Quality: Stroke Does the patient have a stroke diagnosis?: No Physical Exam Vital Signs: Vital Signs: Last Vital Signs Temp 97.2 F 05/28/25 12:00 Pulse 83 05/28/25 12:00 Resp 20 05/28/25 12:00 BP 122/74 05/28/25 12:00 Pulse Ox 98 05/28/25 12:00 O2 Del Method Room Air 05/28/25 12:00 O2 Flow Rate 2 05/24/25 08:00 BMI result Body Mass Index 24.4 Const: Other: Awake alert oriented x3 in no acute distress Resp: Other: Clear to auscultation bilaterally no rales rhonchi or wheezes Cardio: Other: No S4; positive S1-S2; no S3 murmurs rubs or gallops GI: Other: Soft nontender nondistended normoactive bowel sounds Extrem: Other: No edema bilaterally DS: Data Data Completed and Pending Labs on day of discharge: Laboratory Results - last 24 hr 05/27/25 05/27/25 05/28/25 16:02 19:57 06:11 WBC 6.8 RBC 4.22 Hgb 12.9 Hct 38.5 MCV 91.2 MCH 30.6 MCHC 33.5 RDW 14.6 Plt Count 280 MPV 9.4 Immature Gran % (Auto) 0.7 H Neut % (Auto) 51.8 Lymph % (Auto) 32.9 [place] % (Auto) 10.2 Eos % (Auto) 3.4 Baso % (Auto) 1.0 Lymph # (Auto) 2.2 [place] # (Auto) 0.7 Eos # (Auto) 0.2 Baso # (Auto) 0.1 Abs Immat Gran (auto) 0.05 H Absolute Neuts (auto) 3.5 Absolute Nucleated RBC 0.000 Nucleated RBC % (auto) 0.0 Sodium 134 L Potassium 4.8 D Chloride 99 Carbon Dioxide 29 Anion Gap 11 L BUN 10 Creatinine 0.58 Estim Creat Clear Calc 63.8 Estimated GFR > 60 POC Glucose 145 H 247 H Random Glucose 99 Calcium 9.1 D Total Bilirubin 0.6 AST 32 H ALT 45 H Alkaline Phosphatase 163 H Total Protein 6.3 L Albumin 3.2 L 05/28/25 05/28/25 07:20 11:51 WBC RBC Hgb Hct MCV MCH MCHC RDW Plt Count MPV Immature Gran % (Auto) Neut % (Auto) Lymph % (Auto) [place] % (Auto) Eos % (Auto) Baso % (Auto) Lymph # (Auto) [place] # (Auto) Eos # (Auto) Baso # (Auto) Abs Immat Gran (auto) Absolute Neuts (auto) Absolute Nucleated RBC Nucleated RBC % (auto) Sodium Potassium Chloride Carbon Dioxide Anion Gap BUN Creatinine Estim Creat Clear Calc Estimated GFR POC Glucose 99 124 H Random Glucose Calcium Total Bilirubin AST ALT Alkaline Phosphatase Total Protein Albumin Discharge Plan Discharge Anticipated Discharge Date/Time: 05/28/25 12:28 Patient Disposition: Home, Self-Care Discharge Diagnosis: AFib with rapid ventricular response Referrals: Krista Allen MD [Primary Care Provider, Internal Medicine] - 1 Week Discharge Medications: New furosemide 40 mg Tablet 40 mg PO DAILY Qty: 30 0RF Protocol: Hold for SBP< HOLD for SBP < : 90 spironolactone 25 mg Tablet 25 mg PO DAILY Qty: 30 0RF Protocol: Hold for SBP< HOLD for SBP < : 90 digoxin 125 mcg (0.125 mg) Tablet 0.125 mg PO DAILY Qty: 30 0RF Protocol: Hold for HR <: HOLD for HR < : 60 oxycodone 5 mg Tablet 5 mg PO Q8H PRN (Reason: back pain) Qty: 30 0RF Rx Instructions: Partial Fill upon patient request. Jardiance 10 mg Tablet 10 mg PO DAILY Qty: 30 0RF Continued apixaban 5 mg tablet 5 mg PO BID Qty: 180 3RF metoprolol succinate 50 mg tablet extended release 24 hr 50 mg PO BID Qty: 180 3RF omeprazole 20 mg Capsule,Delayed Release(Dr/Ec) 20 mg PO DAILY@0630 atorvastatin [Lipitor] 10 mg tablet 10 mg PO BEDTIME sodium chloride 1,000 mg tablet,soluble 1,000 mg PO DAILY Culturelle 10 billion cell Capsule 1 cap PO BID diltiazem HCl 240 mg capsule,extended release 24hr 240 mg PO DAILY Qty: 90 3RF Discontinued furosemide [Lasix] 20 mg tablet 20 mg PO DAILY Qty: 30 2RF Discharge Orders: Discharge Order (Routine); Ordered 05/28/25 Ordered By: Bartolome Farley Diet: Advance to usual diet Activity on Discharge: As tolerated Stand Alone Forms: Patient Portal Discharge page Print Language: Icelandic Care Plan Goals: Continue all medicines as taken prior to hospitalization Health Concerns: Digoxin 0.125 mg daily has been added to your regimen. Jardiance 10 mg has also been added to your regimen Plan of Treatment: Cardiology we will call for a follow up appointment; follow up with PCP next available Assessment: See discharge summary
--- NOTE | 2025-05-28 12:59 | MHC.CM.PN ---
Second IMM 05/28/25, Pt. has been medically cleared to [place], she will go home via private transport and resume services from [facility].
[2025-05-28 15:45] LABS: Glucose, Whole Blood 289 mg/dL (60-115)
[2025-05-28 15:45] LABS: Glucose, Whole Blood 139 mg/dL (60-115)
== END 2025-05-28 18:01 | disposition home or self-care (01) | DRG 308 ==
LOC: HO.ED 17:57 → HO.EDOVER 19:38 → HO.IMC 23:53
PROVIDERS: Nurse Practitioner Acute Care; Student in an Organized Health Care Education/Training Program; Admitting Provider Internal Medicine; Emergency Provider Emergency Medicine; PCP Internal Medicine; Visit Provider Hospitalist
DX: I48.0 Paroxysmal atrial fibrillation (principal); I50.33 Acute on chronic diastolic (congestive) heart failure; C90.00 Multiple myeloma not having achieved remission; C79.51 Secondary malignant neoplasm of bone; E87.1 Hypo-osmolality and hyponatremia; I11.0 Hypertensive heart disease with heart failure; E87.6 Hypokalemia; E78.5 Hyperlipidemia, unspecified; K21.9 Gastro-esophageal reflux disease without esophagitis; G89.3 Neoplasm related pain (acute) (chronic); E83.42 Hypomagnesemia; Z79.01 Long term (current) use of anticoagulants; Z79.899 Other long term (current) drug therapy
CPT/HCPCS: 36415; 71045; 71275; 80048; 80053; 82947; 83036; 83735; 83880; 84132; 84484; 85025; 85610; 93005; 93306; 99285; J1160; J1163; J1938; J3475; J3480; Q9957; Q9967

== ENCOUNTER → 2025-05-22 14:02 | Outpatient (BNV) | payer MEDICARE, OTHER, SELFPAY | PROVIDERS: Admitting Provider Internal Medicine; Emergency Provider Emergency Medicine; PCP Internal Medicine; Visit Provider Internal Medicine Cardiovascular Disease | DX: I48.91 Unspecified atrial fibrillation (principal); I45.10 Unspecified right bundle-branch block | CPT/HCPCS: 93010 ==

== ENCOUNTER → 2025-05-22 14:48 | Outpatient (BNV) | payer MEDICARE, OTHER, SELFPAY | PROVIDERS: Emergency Provider Emergency Medicine; PCP Internal Medicine; Visit Provider Radiology Diagnostic Radiology | DX: J90 Pleural effusion, not elsewhere classified (principal); S22.080A Wedge compression fracture of T11-T12 vertebra, initial encounter for closed fracture; E04.1 Nontoxic single thyroid nodule; R91.8 Other nonspecific abnormal finding of lung field; M89.8X9 Other specified disorders of bone, unspecified site | CPT/HCPCS: 71045 ==

== ENCOUNTER 2025-05-22 19:13 | Outpatient (BNV) | payer MEDICARE, OTHER, SELFPAY | END 2025-05-23 01:24 | PROVIDERS: Admitting Provider Internal Medicine; Emergency Provider Emergency Medicine; PCP Internal Medicine; Visit Provider Internal Medicine Cardiovascular Disease | DX: I48.91 Unspecified atrial fibrillation (principal); I45.10 Unspecified right bundle-branch block | CPT/HCPCS: 93010 ==

== ENCOUNTER → 2025-05-22 19:13 | Outpatient (BNV) | payer MEDICARE, OTHER, SELFPAY | PROVIDERS: Admitting Provider Internal Medicine; Emergency Provider Emergency Medicine; PCP Internal Medicine; Visit Provider Internal Medicine | DX: I48.91 Unspecified atrial fibrillation (principal); I50.9 Heart failure, unspecified | CPT/HCPCS: 99223; 99232; 99239 ==

== ENCOUNTER → 2025-05-22 19:13 | Outpatient (BNV) | payer MEDICARE, OTHER, SELFPAY | PROVIDERS: Admitting Provider Internal Medicine; Emergency Provider Emergency Medicine; PCP Internal Medicine; Visit Provider Internal Medicine Cardiovascular Disease | DX: I50.9 Heart failure, unspecified (principal); I48.91 Unspecified atrial fibrillation | CPT/HCPCS: 99223 ==

== ENCOUNTER 2025-06-11 11:53 | Outpatient (AMB) | payer MEDICARE, OTHER, SELFPAY ==
[2025-06-11 11:57] VITALS: BP 112/66; PULSE 73; O2SAT 100; BMI 22.5
--- NOTE | 2025-06-11 11:57 | A.OFFPC_ITS ---
Vital Signs 06/11/25 11:57 Height 5 ft 5 in Weight 135 lb BMI 22.5 BP 112/66 Blood Pressure Location Lt brachial Position Sitting Pulse 73 Pulse Source Pulse Oximeter Pulse Oximetry (%) 100 Intake Visit Reasons: HDF ~ Post hospital discharge FU Allergies hydralazine Allergy (Verified 06/11/25 11:58) Unknown hydrochlorothiazide Adverse Reaction (Intermediate, Verified 06/11/25 11:58) Palpitations amlodipine Adverse Reaction (Verified 06/11/25 11:58) DIZZINESS sotalol Adverse Reaction (Verified 06/11/25 11:58) Palpitations Tobacco use date assessed: 05/14/25 Fall risk assessment: No Falls in past year Last assessed Fall Risk: 06/11/25 Dental Screening Dental Screen Date: 05/14/25 HPI HPI Comments History of Present Illness Details Patient is an 84-year-old female with a past medical history of AFib on Eliquis, multiple myeloma with multiple thoracic and lumbar metastatic lesions, type 2 DM and HLD who is here for a hospital discharge follow-up. On May 22 she went to the [facility] complaining of a dry cough which she felt was secondary to postnasal drip and she had some retrosternal discomfort. In the emergency department she was found to be in AFib with RVR. Her vital signs were otherwise stable and her labs were significant for sodium of 128, chloride 93, magnesium 1.4, calcium 8.1, BNP 804 and some elevated liver enzymes, albumin was 3.3. Troponin was 2.8 and 3.1, EKG was AFib with RVR and a right bundle branch block, Her chest CTA showed: 1. No acute pulmonary embolus. 2. Moderate right and small left pleural effusion with mild bibasilar dependent opacities, likely atelectasis. 3. Lytic lesion in the posterior T9 vert ebral body and pedicle concerning for metastasis. 4. Moderate T12 and mild T11 superior en dplate compression fractures, progressed from prior. 5. 1.3 cm nodule posterior to the left t hyroid lobe. Consider nonemergent ultrasound for further evaluation. In the ED, she was given 2g of magnesium, 10mg IV diltiazem, 20mg IV furosemide and then started on a Cardizem drip. She was admitted to telemetry and Cardiology was consulted. She was seen by Cardiology and they gave her a loading dose of IV digoxin which dropped her heart rate into the 30s for multiple episodes, no pauses were greater than 5 seconds. Digoxin was ultimately dosed at 0.125 mg along with her full-dose Eliquis and she was discharged. Cardiology will follow up in the office with a Holter and adjustment of therapies, as needed. Today, she is here with her daughter. Both her daughter and the patient tell me she is feeling much better. She has been taking the digoxin and holding it if her heart rate is less than 60, since her discharge on 05/28, her log shows she has only had to hold it 3 times. She is taking her Eliquis daily and she is also taking her sodium pill daily. Her sodium was 134 upon discharge and she has not had it rechecked so we will recheck it today. She continues to take her Lasix daily and her log that she has brought with her today shows that her weight has been consistent between 130 lb and 132 lb since her discharge. She denies any chest pain, dizziness, shortness of breath or increased leg swelling. Physical Exam General: Cooperative, healthy appearing, comfortable, no acute distress and well developed Orientation: Patient oriented x3 Limitations: No limitations Head: Normal to inspection Ears: Hearing grossly normal bilaterally Nose: Normal External nose present Face and sinus: Normal facial exam Eyes: Appearance normal, both eyes and all related structures Neck: Normal visual inspection and Yes full ROM Respiratory: Normal respiratory effort and able to speak in complete sentences. Clear to auscultation Cardiac: irregular rate and irregular rhythm, S1 and S2 normal Skin: No rashes or lesions noted Neuro: Patient oriented x3 Extremities: Normal to inspection, no swelling noted Review of Systems - Cardiovascular: Denies chest pain, diz ziness, or dyspnea. All systems reviewed and are unremarkable except as noted in HPI . [facility] Medical History (Updated 06/11/25 @ 12:29 by Malathi Mejia PA-C) Paroxysmal atrial fibrillation Atrial fibrillation with RVR CHF (congestive heart failure) Hyponatremia DM type 2 (diabetes mellitus, type 2) Spinal stenosis 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 Lesion of bone of lumbosacral spine Multiple myeloma Lower back pain Impacted cerumen of both ears Dysplastic nevus Vitamin D deficiency Annual physical exam Palpitations Leukoplakia of tongue Hyperlipidemia Peripheral neuropathy Dysuria Surgical History H/O arthroscopy of knee H/O varicose vein ligation H/O: hysterectomy H/O mastectomy H/O colonoscopy Family History Father No problems noted. Mother No problems noted. Son Diabetes Social History Household Members: Family Household Members Other:: d/c from [facility] 05/06 staying w/ daughter Barbara at this time. Housing: House Do you presently have visiting nurse or other home services: No Alcohol intake: former Patient Tobacco Use Status: Never used Tobacco e-Cigarette/Vaping Use: Never Used Second Hand Smoke Exposure: No service: No Current occupational status: retired Gender identity: Female Cognitive needs: No Hearing needs: No Vision needs: Yes Questionnaire PHQ-9 Over the last 2 weeks, how often have you been bothered by any of the following problems? 1. Little interest or pleasure in doing things: not at all 2. Feeling down, depressed, or hopeless: not at all 3. Trouble falling or staying asleep, or sleeping too much: not at all 4. Feeling tired or having little energy: not at all 5. Poor appetite or overeating: not at all 6. Feeling bad about yourself - or that you are a failure or have let yourself or your family down: not at all 7. Trouble concentrating on things, such as reading the newspaper or watching television: not at all 8. Moving or speaking so slowly that other people could have noticed. Or the opposite - being so fidgety or restless that you have been moving around a lot more than usual: not at all 9. Thoughts that you would be better off or of hurting yourself in some way: not at all Total score: 0 Depression Screening Interpretation: Negative Depression Screening Done: Yes Source: Developed by Drs. Jae Sandoval, Yolanda Ennis, Darnell Matias and colleagues, with an educational chu from [employer]. Thrive Questionnaire Date Thrive assessed: 10/21/24 I am a: Patient What is your living situation today?: I have a steady place to live Within the past 12 months, did the food you bought not last and you didn't have the money to get more?: Never true Within the past 12 months, did you worry whether your food would run out before you got money to buy more?: Never true Do you have trouble paying for medicines?: No Do you have trouble getting transportation to medical appointments?: No Do you have trouble paying your heating and electricity bill?: No Do you have trouble taking care of your child, family member or friend?: No Do you have trouble with day-to-day activities such as bathing, preparing meals, shopping, managing finances, etc.?: No Are you currently unemployed and looking for a job?: No Are you interested in more education?: No Please select the resources that you would like help with: None Currently or been in a relationship where the following occur: No concerns reported THRIVE Score: 0 AUDIT C Alcohol Use Questionnaire (AUDIT-C) 1. How often do you have a drink containing alcohol?: Never 3. How often do you have six or more drinks on one occasion?: Never Total Score: 0 BRADY-7 AMB Questionnaire BRADY-7 Date BRADY - 7 assessed: 10/21/24 Feeling nervous, anxious, or on edge: 0 = Not at all Not being able to stop or control worryin = Not at all Worrying too much about different things: 0 = Not at all Trouble relaxin = Not at all Being so restless that it is hard to sit still: 0 = Not at all Becoming easily annoyed or irritable: 0 = Not at all Feeling afraid as if something awful might happen: 0 = Not at all Total BRADY-7 score (0-4 normal; 5-9 mild; 10-14 moderate; 15-21 severe): 0 Source: Developed by Drs. Jae Sandoval, Yolanda Ennis, Darnell Matias and colleagues, with an educational chu from [employer]. Review of Systems Const All systems reviewed & are unremarkable except as noted in HPI and below Physical exam (Primary Care) Vital Signs: Last Vital Signs Pulse 73 06/11/25 11:57 BP 112/66 06/11/25 11:57 Pulse Ox 100 06/11/25 11:57 BMI result Body Mass Index 22.5 Tobacco/Smoking Status: Tobacco use Status Tobacco use date assessed 05/14/25 06/11/25 11:59 Patient Tobacco Use Status Never used Tobacco 06/11/25 11:59 e-Cigarette/Vaping Use Never Used 06/11/25 11:59 PHQ-9: PHQ-9 Score PHQ-9: Total score 0 06/11/25 12:09 Depression Screening Interpretation: Negative Thrive Assessment: Date of Thrive Assessment Date Thrive assessed 10/21/24 06/11/25 11:59 Currently or been in a relationship where the following occur: No concerns r eported Coding Level of Care Code Est Pt Level 5 (92175) Diagnoses Hospital discharge follow-up Z09 Paroxysmal atrial fibrillation I48.0 Hyponatremia E87.1 Thyroid nodule greater than or equal to 1 cm in diameter incidentally noted on imaging study E04.1 Hypomagnesemia E83.42 Assessment & Plan Assessment & Plan (1) Hospital discharge follow-up: Code(s): Z09 - Encounter for follow-up examination after completed treatment for conditions other than malignant neoplasm Category: Medical Plan: Plan Patient was informed and verbally consented to the use of an ambient scribe for clinic note documentation during this visit. 1. Atrial Fibrillation - Continue digoxin and furosemide, using the parameters for dosing, and Eliquis as prescribed. 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 2. Heart Failure - Manage fluid retention with furosemide as per protocol. - Monitor for signs of fluid overload. 3. Thyroid Nodule - ordered ultrasound for further evaluation of the thyroid nodule, question metastatic disease. Messaged her Oncologist, Dr Watts to inform her of this US. 4. Hyponatremia - Recheck sodium levels to ensure normalization. 5. Hypomagnesemia - Recheck magnesium levels to ensure normalization. (2) Paroxysmal atrial fibrillation: Code(s): I48.0 - Paroxysmal atrial fibrillation Category: Medical Plan: As above (3) Hyponatremia: Comment: SIADH and hyperglycemia Code(s): E87.1 - Hypo-osmolality and hyponatremia Category: Medical Plan: as above (4) Thyroid nodule greater than or equal to 1 cm in diameter incidentally noted on imaging study: Code(s): E04.1 - Nontoxic single thyroid nodule Category: Medical Plan: As above (5) Hypomagnesemia: Code(s): E83.42 - Hypomagnesemia Category: Medical Plan: As above Orders: Orders Comprehensive Met. Panel Today E87.1 - Hypo-osmolality and hyponatremia US thyroid Today E04.1 - Nontoxic single thyroid nodule Magnesium Today E83.42 - Hypomagnesemia
--- OUTSIDE RECORDS SUMMARY | 2025-06-11 16:50 | XMS_ITS | Clinical Summary ---
Author Organization [facility] Address [address] [place] [address] Phone Care Team Providers Care Binding Cutter Name Role Phone Pcp, Unknown Primary Care [...] - 03/30/2025 11:59 PM EDT Hospital Encounter [facility] Laboratory [address] [place] [address] Walt Cruz MD Discharge Disposition: Home or Self Care 03/30/2025 Transcribe Orders [facility] Specimen Processing [address] [place] [address] Walt Cruz MD Hypertension, unspecified type (Primary [...] EDT) SODIUM 131(L) 133 - 146 mmol/L [facility] POTASSIUM 4.6 3.3 - 5.1 mmol/L [facility] CHLORIDE 92(L) 96 - 108 mmol/L [facility] CO2 30 21 - 35 mmol/L [facility] BUN 30(H) 6 - 19 mg/dL [facility] CREATININE 0.50 0.5 - 1.5 mg/dL [facility] GLUCOSE 123(H) 70 - 99 mg/dL [facility] ALBUMIN 3.3(L) 3.9 - 4.8 g/dL [facility] TOTAL PROTEIN 5.4(L) 6.5 - 8.0 g/dL [facility] CALCIUM 8.5 8.4 - 10.3 mg/dL [facility] ALKALINE PHOSPHATASE 53 39 - 117 U/L [facility] TOTAL BILIRUBIN 1.8(H) 0.0 - 1.2 mg/dL [facility] AST 14 0 - 37 U/L [facility] ALT 32 0 - 40 U/L [facility] GLOBULIN 2.1 1 - 4.8 g/dL [facility] EGFR 92 >59 mL/min/1.7 3m2 [facility] Comment:Estimated glomerular filtration rate calculated using the CKD-EPI refit equation. ANION GAP 14 10 - 20 mmol/L [facility] 03/30/2025 5:51 AM EDT 03/30/2025 10:16 AM EDT us Walt Cruz MD LAB BLOOD ORDERABLES Final Resul t Performing Organization Address [facility]/ZIP Co de Phone Number [address] [address] * (ABNORMAL) CBC (03/30/2025 5:51 AM EDT) WBC 13.24(H) 4.00 - 11.00 K/uL [facility] RBC 4.47 4.00 - 5.20 M/uL [facility] HGB 13.9 12.0 - 16.0 g/dL [facility] HCT 42.0 36.0 - 46.0 % [facility] PLT 182 150 - 450 K/uL [facility] MCV 94.0 80.0 - 100.0 fL [facility] MCH 31.1(H) 27.0 - 31.0 pg [facility] MCHC 33.1 32.0 - 36.0 g/dL [facility] RDW 14.6(H) 11.5 - 14.5 % [facility] MPV 11.7 8.4 - 12.0 fL [facility] NRBC 0.00 0.00 /100 WBCs [facility] ABSOLUTE NRBC 0.00 0.00 K/uL [facility] 03/30/2025 5:51 AM EDT 03/30/2025 10:16 AM EDT us Walt Cruz MD LAB BLOOD ORDERABLES Final Resul t Performing Organization Address City/[facility]/ZIP Co de Phone Number [address] [address] from Last 3 Months Insurance MEDICARE PART A [place] [address] [place] [address] MEDICARE ENHANCE SUPPLEMENT MEDICARE PART A [place] [address] [place] [address] MEDICARE ENHANCE SUPPLEMENT MEDICARE PART A & B [facility] MEDICARE ENHANCE SUPPLEMENT MEDICARE PART A & B [facility] MEDICARE ENHANCE SUPPLEMENT MEDICARE PART A & B [address] [place], [place] [id number] MEDICARE ENHANCE SUPPLEMENT MEDICARE PART A & B [facility] MEDICARE ENHANCE SUPPLEMENT Care Teams Binding Cutter Relationship Specialty Start Date End Date Pcp, Unknown PCP - General 08/05/24 Additional Source Comments The information contained in this document represents components of the legal health record. It is not the complete legal health record.[facility]
--- OUTSIDE RECORDS SUMMARY | 2025-06-11 16:50 | XMS_ITS | Encounter Summary ---
Author Organization [facility] Address [address] [place] [address] Phone Care Team Providers Care Global Compensation Analyst Name Role Phone Pcp, Unknown Primary Care Provider Unavailabl e Encounter Details Date Type Department Care Team (Late st Contact Info) Description 10/01/2024 Procedure Pass [facility] Endoscopy Admitting Dept Virtual Department [address] [place] [address] Social History Tobacco Use Types Packs/Day Years [...] on filedocumented in this encounter Care Teams Global Compensation Analyst Relationship Specialty Start Date End Date Pcp, Unknown PCP - General 08/05/24 documented as of this encounter Additional Source Comments The information contained in this document represents components of the legal health record. It is not the complete legal health record.[facility]
--- OUTSIDE RECORDS SUMMARY | 2025-06-11 16:50 | XMS_ITS | Patient Health Record ---
Author Organization [facility] Address [address] [place] [address] Care Team Providers Care Commander Internal Affairs Name Role Phone Owen VIEYRA, Ora Primary Care Provider Unavailab Karol Yanes Unavailable [phone] Reason For Referral No Information Medications Medication [...] Treatment Pending Test Test Name Order Date [id number] TENDON SHEATH/LIGAMENT 0 11/27/2019 Insurance Providers Payer Name Payer Address Payer Phone Subscriber Number Group Number Insured Name Patient Relationship to Insured Coverage Start Date Coverage End Date Medicare National [facility] [employer] [address] [place] [address] [id number] Yesenia Fisher Self - patient is the insured [facility] [address] [place] [address] [phone] [id number] Yesenia Fisher Self - patient is the insured Medical (General) History Medical History History ICD Code Reflux Measles breast cancer Mumps Surgical History Surgery Date(Month/Year) cancer surgery 07/1992 varicose vein stripping 1974 hysterectomy 1989
== END 2025-06-11 12:46 | disposition home or self-care (01) ==
LOC: HO.HMCC 11:54
PROVIDERS: PCP Internal Medicine; Visit Provider Physician Assistant
DX: I48.0 Paroxysmal atrial fibrillation (principal); Z09 Encounter for follow-up examination after completed treatment for conditions other than malignant neoplasm; E87.1 Hypo-osmolality and hyponatremia; E04.1 Nontoxic single thyroid nodule; E83.42 Hypomagnesemia

== ENCOUNTER 2025-06-11 11:53 | Outpatient (REF) | payer MEDICARE, OTHER, SELFPAY ==
[2025-06-11 16:13] LABS: Alanine Aminotransferase 22 U/L (0-31); Albumin Level 4.2 g/dL (3.5-5.0); Alkaline Phosphatase 96 U/L (39-117); Anion Gap 11 (12-20); Aspartate Amino Transferase 28 U/L (5-31); Blood Urea Nitrogen 18 mg/dL (9-16); Calcium 9.5 mg/dL (8.4-10.2); Carbon Dioxide 26 mmol/L (22-29); Chloride 102 mmol/L (96-108); Estimated Glomerular Filt Rate > 60; Magnesium 1.9 mg/dL (1.6-2.6); Potassium 4.9 mmol/L (3.3-5.1); Sodium 134 mmol/L (135-145); Total Protein 7.9 g/dL (6.5-8.0)
--- OUTSIDE RECORDS SUMMARY | 2025-06-11 17:24 | XMS_ITS | Encounter Summary ---
Author Organization [facility] Address [address] [place] [address] Care Team Providers Care Compositor Apprentice Name Role Phone Mario Berrios MD Primary Care Provider [phone] Encounter Details Date Type Department Care Team (Late st Contact Info) Description 04/29/2025 Lab Requisition [facility] - Main Lab [address] [facility] [place] [address] Mario Berrios MD [address] [place] [phone] Hypo-osmolality and hyponatremia Social History Tobacco [...] LAB CHEMISTRY METHOD 04/29/2025 3:[address] [facility] Potassium 4.3 3.5 - 5.5 mmol/L LAB CHEMISTRY METHOD 04/29/2025 3:[address] [facility] Chloride 93(L) 96 - 110 mmol/L LAB CHEMISTRY METHOD 04/29/2025 3:[address] [facility] CO2 31 21 - 32 mmol/L LAB CHEMISTRY METHOD 04/29/2025 3:38 PM [facility] Anion Gap 6 3 - 11 LAB CHEMISTRY METHOD 04/29/2025 3:38 PM [facility] Glucose 90 70 - 100 mg/dL LAB CHEMISTRY METHOD 04/29/2025 3:38 PM [facility] BUN 10 5 - 25 mg/dL LAB CHEMISTRY METHOD 04/29/2025 3:38 PM [facility] Creatinine 0.59 0.50 - 1.10 mg/dL LAB CHEMISTRY METHOD 04/29/2025 3:38 PM [facility] eGFR 88 >=60 mL/min/1. 73m2 LAB CHEMISTRY METHOD 04/29/2025 3:38 PM [facility] Comment:Calculation based on the Chronic Kidney Disease Epidemiology Collaboration (CKD-EPI) equation refit without adjustment for race. BUN/Creatinine Ratio 16.9 LAB CHEMISTRY METHOD 04/29/2025 3:38 PM [facility] Calcium 8.3(L) 8.5 - 10.5 mg/dL LAB CHEMISTRY METHOD 04/29/2025 3:38 PM [facility] AST (SGOT) 16 10 - 42 unit/L LAB CHEMISTRY METHOD 04/29/2025 3:38 PM [facility] ALT (SGPT) 34 10 - 60 unit/L LAB CHEMISTRY METHOD 04/29/2025 3:38 PM [facility] Alkaline Phosphatase 131(H) 42 - 121 unit/L LAB CHEMISTRY METHOD 04/29/2025 3:38 PM [facility] Total Protein 5.2(L) 6.0 - 8.0 g/dL LAB CHEMISTRY METHOD 04/29/2025 3:38 PM [facility] Albumin 2.7(L) 3.2 - 5.0 g/dL LAB CHEMISTRY METHOD 04/29/2025 3:[address] [facility] Total Bilirubin 1.2 0.0 - 1.4 mg/dL LAB CHEMISTRY METHOD 04/29/2025 3:[address] [facility] Blood Venous blood specimen / Unknown Venipuncture / Unknown 04/29/2025 6:15 AM EDT 04/29/2025 11:49 AM EDT us Mario Berrios MD LAB BLOOD ORDERABLES Final Resu lt [facility] [address] [place] [address], documented in this encounter Visit Diagnoses Diagnosis Hypo-osmolality and hyponatremia documented in this encounter Care Teams Compositor Apprentice Relationship Specialty Start Date End Date Mario Berrios MD [address] [place] [address] PCP - General Internal Medicine 04/04/25 documented as of this encounter
--- OUTSIDE RECORDS SUMMARY | 2025-06-11 17:24 | XMS_ITS | Encounter Summary ---
Author Organization [facility] Address [address] [place] [address] Care Team Providers Care Shoulder Pad Molder Name Role Phone Mario Berrios MD Primary Care Provider [phone] Encounter Details Date Type Department Care Team (Late st Contact Info) Description 04/08/2025 Lab Requisition [facility] - Main Lab [address] [facility] [place] [address] Mario Berrios MD [address] [place] [phone] Essential (primary) hypertension Social History Tobacco Use [...] AM EDT) WBC 10.1 4.8 - 10.8 K/[facility] LAB HEMETOLOGY METHOD 04/09/2025 11:39 AM EDT [facility] RBC 3.90 3.80 - 4.80 M/[facility] LAB HEMETOLOGY METHOD 04/09/2025 11:39 AM EDT [facility] Hemoglobin 11.9 11.5 - 16.0 g/dL LAB HEMETOLOGY METHOD 04/09/2025 11:[address] [facility] Hematocrit 37.5 35.0 - 47.0 % LAB HEMETOLOGY METHOD 04/09/2025 11:[address] [facility] MCV 95.4 79.0 - 98.0 FL LAB HEMETOLOGY METHOD 04/09/2025 11:[address] [facility] MCH 30.3 27.0 - 32.0 pcg LAB HEMETOLOGY METHOD 04/09/2025 11:[address] [facility] MCHC 31.7(L) 32.0 - 37.0 g/dL LAB HEMETOLOGY METHOD 04/09/2025 11:[address] [facility] RDW 15.8(H) 11.0 - 15.0 % LAB HEMETOLOGY METHOD 04/09/2025 11:[address] [facility] Platelets 127(L) 130 - 400 K/mcL LAB HEMETOLOGY METHOD 04/09/2025 11:[address] [facility] MPV 11.8(H) 7.0 - 11.0 FL LAB HEMETOLOGY METHOD 04/09/2025 11:[address] [facility] NRBC 0.0 <1.0 % LAB HEMETOLOGY METHOD 04/09/2025 11:[address] [facility] NRBC Absolute 0.00 <0.10 K/mcL LAB HEMETOLOGY METHOD 04/09/2025 11:[address] [facility] Blood Venous blood specimen / Unknown Venipuncture / Unknown 04/09/2025 5:47 AM EDT 04/09/2025 11:23 AM EDT Mario Berrios MD LAB BLOOD ORDERABLES Final Resu lt [facility] [address] [place] [address], [place] [phone] * (ABNORMAL) Basic metabolic panel (04/09/2025 5:47 AM EDT) Sodium 133 133 - 145 mmol/L LAB CHEMISTRY METHOD 04/09/2025 12:[address] [facility] Potassium 4.9 3.5 - 5.5 mmol/L LAB CHEMISTRY METHOD 04/09/2025 12:[address] [facility] Comment:Hemolysis present Chloride 101 96 - 110 mmol/L LAB CHEMISTRY METHOD 04/09/2025 12:[address] [facility] CO2 26 21 - 32 mmol/L LAB CHEMISTRY METHOD 04/09/2025 12:[address] [facility] Anion Gap 6 3 - 11 LAB CHEMISTRY METHOD 04/09/2025 12:[address] [facility] Glucose 97 70 - 100 mg/dL LAB CHEMISTRY METHOD 04/09/2025 12:[address] [facility] BUN 17 5 - 25 mg/dL LAB CHEMISTRY METHOD 04/09/2025 12:[address] [facility] Creatinine 0.61 0.50 - 1.10 mg/dL LAB CHEMISTRY METHOD 04/09/2025 12:[address] [facility] eGFR 88 >=60 mL/min/1. 73m2 LAB CHEMISTRY METHOD 04/09/2025 12:[address] [facility] Comment:Calculation based on the Chronic Kidney Disease Epidemiology Collaboration (CKD-EPI) equation refit without adjustment for race. BUN/Creatinine Ratio 27.9 LAB CHEMISTRY METHOD 04/09/2025 12:[address] [facility] Calcium 8.0(L) 8.5 - 10.5 mg/dL LAB CHEMISTRY METHOD 04/09/2025 12:06 PM EDT [facility] Blood Venous blood specimen / Unknown Venipuncture / Unknown 04/09/2025 5:47 AM EDT 04/09/2025 11:23 AM EDT Mario Berrios MD LAB BLOOD ORDERABLES Final Resu lt [facility] [address] [place] [address], documented in this encounter Visit Diagnoses Diagnosis Essential (primary) hypertension Unspecified essential hypertension documented in this encounter Care Teams Shoulder Pad Molder Relationship Specialty Start Date End Date Mario Berrios MD [address] [place] [phone] PCP - General Internal Medicine 04/04/25 documented as of this encounter
--- OUTSIDE RECORDS SUMMARY | 2025-06-11 17:24 | XMS_ITS | Encounter Summary ---
Author Organization [facility] Address [address] [place] [address] Care Team Providers Care Trade Mark Examiner Name Role Phone Mario Berrios MD Primary Care Provider Encounter Details Date Type Department Care Team (Late st Contact Info) Description 04/17/2025 Lab Requisition [facility] - Main Lab 299 [facility] [place] [address] Mario Berrios MD [address] [place] [address] [phone] Essential (primary) hypertension Social History Tobacco Use [...] AM EDT) WBC 6.2 4.8 - 10.8 K/[facility] LAB HEMETOLOGY METHOD 04/20/2025 11:57 AM EDT [facility] LAB RBC 4.00 3.80 - 4.80 M/[facility] LAB HEMETOLOGY METHOD 04/20/2025 11:57 AM EDT [facility] LAB Hemoglobin 12.5 11.5 - 16.0 g/dL LAB HEMETOLOGY METHOD 04/20/2025 11:57 AM EDT [facility] LAB Hematocrit 37.7 35.0 - 47.0 % LAB HEMETOLOGY METHOD 04/20/2025 11:57 AM EDT [facility] LAB MCV 94.3 79.0 - 98.0 FL LAB HEMETOLOGY METHOD 04/20/2025 11:57 AM EDT [facility] LAB MCH 31.3 27.0 - 32.0 pcg LAB HEMETOLOGY METHOD 04/20/2025 11:57 AM EDT [facility] LAB MCHC 33.2 32.0 - 37.0 g/dL LAB HEMETOLOGY [facility] RDW 16.7(H) 11.0 - 15.0 % LAB HEMETOLOGY METHOD 04/20/2025 11:57 AM EDT [facility] LAB Platelets 153 130 - 400 K/mcL LAB HEMETOLOGY METHOD 04/20/2025 11:57 AM EDT [facility] LAB MPV 11.5(H) 7.0 - 11.0 FL LAB HEMETOLOGY METHOD 04/20/2025 11[facility] NRBC 0.0 <1.0 % LAB HEMETOLOGY METHOD 04/20/2025 11:57 AM EDT [facility] LAB NRBC Absolute 0.00 <0.10 K/mcL LAB HEMETOLOGY METHOD 04/20/2025 11[facility] Blood Venous blood specimen / Unknown Venipuncture / Unknown 04/20/2025 5:25 AM EDT 04/20/2025 10:56 AM EDT us Mario Berrios MD LAB BLOOD ORDERABLES Final Resu lt [facility] LAB [address] [place] [address], * (ABNORMAL) Comprehensive metabolic panel (04/20/2025 5:25 AM EDT) Sodium 134 133 - 145 mmol/L LAB CHEMISTRY METHOD 04/20[facility]2025 1[facility] Potassium 4.1 3.5 - 5.5 mmol/L LAB CHEMISTRY METHOD 04/20/2025 1:10 PM T [facility] LAB Comment:Hemolysis present Chloride 96 96 - 110 mmol/L LAB CHEMISTRY METHOD 04/20/2025 1:10 PM [facility] LAB CO2 30 21 - 32 mmol/L LAB CHEMISTRY METHOD 04/20/2025 1:10 PM [facility] LAB Anion Gap 8 3 - 11 LAB CHEMISTRY METHOD 04/20/2025 1:10 PM [facility] LAB Glucose 84 70 - 100 mg/dL LAB CHEMISTRY METHOD 04/20/2025 1:10 PM [facility] LAB BUN 14 5 - 25 mg/dL LAB CHEMISTRY METHOD 04/20/2025 1:10 PM [facility] LAB Creatinine 0.56 0.50 - 1.10 mg/dL LAB CHEMISTRY METHOD 04/20/2025 1:[facility] eGFR 90 >=60 mL/min/1. 73m2 LAB CHEMISTRY METHOD 04/20/2025 1:10 PM [facility] LAB Comment:Calculation based on the Chronic Kidney Disease Epidemiology Collaboration (CKD-EPI) equation refit without adjustment for race. BUN/Creatinine Ratio 25.0 LAB CHEMISTRY METHOD 04/20/2025 1:10 PM [facility] LAB Calcium 8.1(L) 8.5 - 10.5 mg/dL LAB CHEMISTRY METHOD 04/20/2025 1:10 PM [facility] LAB AST (SGOT) 35 10 - 42 unit/L LAB CHEMISTRY METHOD 04/20/2025 1:10 PM EDT [facility] LAB Comment:Hemolysis present ALT (SGPT) 69(H) 10 - 60 unit/L LAB CHEMISTRY METHOD 04/20/2025 1:10 PM EDT [facility] LAB Alkaline Phosphatase 156(H) 42 - 121 unit/L LAB CHEMISTRY METHOD 04/20/2025 1:10 PM EDT [facility] Total Protein 5.3(L) 6.0 - 8.0 g/dL LAB CHEMISTRY METHOD 04/20/2025 1:10 PM EDT [facility] LAB Albumin 2.7(L) 3.2 - 5.0 g/dL LAB CHEMISTRY METHOD 04/20/2025 1:10 PM EDT [facility] Total Bilirubin 2.1(H) 0.0 - 1.4 mg/dL LAB CHEMISTRY METHOD 04/20/2025 1:10 PM EDT [facility] LAB Comment:Results verified by repeat testing Blood Venous blood specimen / Unknown Venipuncture / Unknown 04/20/2025 5:25 AM EDT 04/20/2025 12:06 PM EDT Mario Berrios MD LAB BLOOD ORDERABLES Final Resu lt [facility] [address] [place] [address], documented in this encounter Visit Diagnoses Diagnosis Essential (primary) hypertension Unspecified essential hypertension documented in this encounter Care Teams Trade Mark Examiner Relationship Specialty Start Date End Date Mario Berrios MD [address] [place] [address] PCP - General Internal Medicine 04/04/25 documented as of this encounter
--- OUTSIDE RECORDS SUMMARY | 2025-06-11 17:24 | XMS_ITS | Encounter Summary ---
Author Organization [facility] Address [address] [place] [address] Care Team Providers Care Entry Specialists Name Role Phone Mario Berrios MD Primary Care Provider [phone] Encounter Details Date Type Department Care Team (Late st Contact Info) Description 04/15/2025 Lab Requisition [facility] - Main Lab 299 [place] [address] Mario Berrios MD [address] [place] [address] [phone] Essential (primary) hypertension Social History Tobacco Use [...] AM EDT) WBC 8.9 4.8 - 10.8 K/[facility] LAB HEMETOLOGY METHOD 04/16/2025 9:51 AM EDT [facility] LAB RBC 4.30 3.80 - 4.80 M/[facility] LAB HEMETOLOGY METHOD 04/16/2025 9:51 AM EDT [facility] LAB Hemoglobin 13.5 11.5 - 16.0 g/dL LAB HEMETOLOGY METHOD 04/16/2025 9:51 AM EDT [facility] LAB Hematocrit 40.4 35.0 - 47.0 % LAB HEMETOLOGY METHOD 04/16/2025 9:51 AM EDT [facility] LAB MCV 93.5 79.0 - 98.0 FL LAB HEMETOLOGY METHOD 04/16/2025 9:51 AM EDT [facility] LAB MCH 31.3 27.0 - 32.0 pcg LAB HEMETOLOGY METHOD 04/16/2025 9:51 AM EDT [facility] LAB MCHC 33.4 32.0 - 37.0 g/dL LAB HEMETOLOGY METHOD 04/16[facility]25 9[facility] RDW 16.6(H) 11.0 - 15.0 % LAB HEMETOLOGY METHOD 04/16/2025 9:51 AM EDT [facility] LAB Platelets 159 130 - 400 K/mcL LAB HEMETOLOGY METHOD 04/16/2025 9:51 AM EDT [facility] LAB MPV 11.7(H) 7.0 - 11.0 FL LAB HEMETOLOGY METHOD 04/16/2025 9:51 AM EDT [facility] NRBC 0.0 <1.0 % LAB HEMETOLOGY METHOD 04/16/2025 9:51 AM EDT [facility] LAB NRBC Absolute 0.00 <0.10 K/mcL LAB HEMETOLOGY METHOD 04/16/2025 9:51 AM EDT [facility] Blood Venous blood specimen / Unknown Venipuncture / Unknown 04/16/2025 6:36 AM EDT 04/16/2025 9:27 AM EDT us Mario Berrios MD LAB BLOOD ORDERABLES Final Resu lt [facility] [address] [place] [address], * (ABNORMAL) Basic metabolic panel (04/16/2025 6:36 AM EDT) Sodium 134 133 - 145 mmol/L LAB CHEMISTRY METHOD 04/16/2025 10:16 AM [facility] LAB Potassium 3.8 3.5 - 5.5 mmol/L LAB CHEMISTRY METHOD 04/16/2025 10:16 AM T [facility] Chloride 98 96 - 110 mmol/L LAB CHEMISTRY METHOD 04/16/2025 10:16 AM [facility] LAB CO2 26 21 - 32 mmol/L LAB CHEMISTRY METHOD 04/16/2025 10:16 AM [facility] LAB Anion Gap 10 3 - 11 LAB CHEMISTRY METHOD 04/16/2025 10:16 AM [facility] LAB Glucose 129(H) 70 - 100 mg/dL LAB CHEMISTRY METHOD 04/16/2025 10:16 AM [facility] LAB BUN 15 5 - 25 mg/dL LAB CHEMISTRY METHOD 04/16/2025 10:16 AM [facility] LAB Creatinine 0.65 0.50 - 1.10 mg/dL LAB CHEMISTRY METHOD 04/16/2025 10:16 AM [facility] LAB eGFR 86 >=60 mL/min/1. 73m2 LAB CHEMISTRY METHOD 04/16/2025 10:16 AM [facility] LAB Comment:Calculation based on the Chronic Kidney Disease Epidemiology Collaboration (CKD-EPI) equation refit without adjustment for race. BUN/Creatinine Ratio 23.1 LAB CHEMISTRY METHOD 04/16/2025 10:16 AM [facility] LAB Calcium 8.5 8.5 - 10.5 mg/dL LAB CHEMISTRY METHOD 04/16/2025 10:16 AM [facility] Blood Venous blood specimen / Unknown Venipuncture / Unknown 04/16/2025 6:36 AM EDT 04/16/2025 9:26 AM EDT Mario Berrios MD LAB BLOOD ORDERABLES Final Resu lt [facility] [address] [place] [address], documented in this encounter Visit Diagnoses Diagnosis Essential (primary) hypertension Unspecified essential hypertension documented in this encounter Care Teams Entry Specialists Relationship Specialty Start Date End Date Mario Berrios MD [address] [place] [address] PCP - General Internal Medicine 04/04/25 documented as of this encounter
--- OUTSIDE RECORDS SUMMARY | 2025-06-11 17:24 | XMS_ITS | Encounter Summary ---
Author Organization [facility] Address [address] [place] [address] Care Team Providers Care Acetylene Operator Name Role Phone Mario Berrios MD Primary Care Provider [phone] Encounter Details Date Type Department Care Team (Late st Contact Info) Description 04/06/2025 Lab Requisition [facility] - Main Lab 299 [facility] [place] [address] Mario Berrios MD [address] [place] [address] [phone] Essential (primary) hypertension Social History Tobacco Use [...] LAB CHEMISTRY METHOD 04/06/2025 1:16 PM T [facility] LAB Potassium 5.8(H) 3.5 - 5.5 mmol/L LAB CHEMISTRY METHOD 04/06/2025 1:16 PM EDT [facility] LAB Comment:Hemolysis present Chloride 96 96 - 110 mmol/L LAB CHEMISTRY METHOD 04/06/2025 1:16 PM [facility] LAB CO2 24 21 - 32 mmol/L LAB CHEMISTRY METHOD 04/06/2025 1:16 PM [facility] LAB Anion Gap 10 3 - 11 LAB CHEMISTRY METHOD 04/06/2025 1:16 PM [facility] Glucose 97 70 - 100 mg/dL LAB CHEMISTRY METHOD 04/06/2025 1:16 PM [facility] BUN 20 5 - 25 mg/dL LAB CHEMISTRY METHOD 04/06/2025 1:16 PM [facility] Creatinine 0.65 0.50 - 1.10 mg/dL LAB CHEMISTRY METHOD 04/06/2025 1:16 PM [facility] LAB eGFR 86 >=60 mL/min/1. 73m2 LAB CHEMISTRY METHOD 04/06/2025 1:16 PM [facility] LAB Comment:Calculation based on the Chronic Kidney Disease Epidemiology Collaboration (CKD-EPI) equation refit without adjustment for race. BUN/Creatinine Ratio 30.8 LAB CHEMISTRY METHOD 04/06/2025 1:16 PM [facility] LAB Calcium 8.6 8.5 - 10.5 mg/dL LAB CHEMISTRY METHOD 04/06/2025 1:16 PM [facility] AST (SGOT) 28 10 - 42 unit/L LAB CHEMISTRY METHOD 04/06/2025 1:16 PM [facility] LAB Comment:Hemolysis present ALT (SGPT) 34 10 - 60 unit/L LAB CHEMISTRY METHOD 04/06/2025 1:16 PM [facility] LAB Alkaline Phosphatase 78 42 - 121 unit/L LAB CHEMISTRY METHOD 04/06/2025 1:16 PM [facility] LAB Total Protein 5.7(L) 6.0 - 8.0 g/dL LAB CHEMISTRY METHOD 04/06/2025 1:16 PM [facility] Albumin 3.0(L) 3.2 - 5.0 g/dL LAB CHEMISTRY METHOD 04/06/2025 1:16 PM EDT [facility] Total Bilirubin 0.8 0.0 - 1.4 mg/dL LAB CHEMISTRY METHOD 04/06/2025 1:16 PM EDT [facility] LAB Blood Venous blood specimen / Unknown Venipuncture / Unknown 04/06/2025 5:18 AM EDT 04/06/2025 10:40 AM EDT us Mario Berrios MD LAB BLOOD ORDERABLES Final Resu lt [facility] LAB [address] [place] [address], [place] [phone] * (ABNORMAL) Complete blood count (04/06/2025 5:18 AM EDT) WBC 10.8 4.8 - 10.8 K/mcL LAB HEMETOLOGY METHOD 04/06/2025 11:40 AM [facility] RBC 4.00 3.80 - 4.80 M/mcL LAB HEMETOLOGY METHOD 04/06/2025 11:40 AM [facility] LAB Hemoglobin 12.4 11.5 - 16.0 g/dL LAB HEMETOLOGY METHOD 04/06/2025 11:40 AM [facility] LAB Hematocrit 38.3 35.0 - 47.0 % LAB HEMETOLOGY METHOD 04/06/2025 11:40 AM T [facility] LAB MCV 95.8 79.0 - 98.0 FL LAB HEMETOLOGY METHOD 04/06/2025 11:40 AM [facility] LAB MCH 31.0 27.0 - 32.0 pcg LAB HEMETOLOGY METHOD 04/06/2025 11:40 AM [facility] LAB MCHC 32.4 32.0 - 37.0 g/dL LAB HEMETOLOGY METHOD 04/06/2025 11:40 AM EDT [facility] LAB RDW 15.3(H) 11.0 - 15.0 % LAB HEMETOLOGY METHOD 04/06/2025 11:40 AM EDT [facility] LAB Platelets 166 130 - 400 K/mcL LAB HEMETOLOGY METHOD 04/06/2025 11:40 AM EDT [facility] LAB MPV 12.4(H) 7.0 - 11.0 FL LAB HEMETOLOGY METHOD 04/06/2025 11:40 AM EDT [facility] LAB NRBC 0.0 <1.0 % LAB HEMETOLOGY METHOD 04/06/2025 11:40 AM EDT [facility] LAB NRBC Absolute 0.00 <0.10 K/mcL LAB HEMETOLOGY METHOD 04/06/2025 11:40 AM EDT [facility] Blood Venous blood specimen / Unknown Venipuncture / Unknown 04/06/2025 5:18 AM EDT 04/06/2025 10:40 AM EDT Mario Berrios MD LAB BLOOD ORDERABLES Final Resu lt [facility] [address] [place] [address], documented in this encounter Visit Diagnoses Diagnosis Essential (primary) hypertension Unspecified essential hypertension documented in this encounter Care Teams Acetylene Operator Relationship Specialty Start Date End Date Mario Berrios MD [address] [place] [address] PCP - General Internal Medicine 04/04/25 documented as of this encounter
--- OUTSIDE RECORDS SUMMARY | 2025-06-11 17:24 | XMS_ITS | Encounter Summary ---
Author Organization [facility] Address [address] [place] [address] Care Team Providers Care Adjunct Trainer Name Role Phone Mario Beriros MD Primary Care Provider [phone] Encounter Details Date Type Department Care Team (Late st Contact Info) Description 04/04/2025 Lab Requisition [facility] - Main Lab 299 [facility] [place] [address] Mario Berrios MD [address] [place] [address] [phone] Essential (primary) hypertension Social History Tobacco Use [...] LAB CHEMISTRY METHOD 04/04/2025 1:38 PM EDT [facility] LAB Potassium 5.0 3.5 - 5.5 mmol/L LAB CHEMISTRY METHOD 04/04/2025 1:38 PM EDT [facility] LAB Chloride 94(L) 96 - 110 mmol/L LAB CHEMISTRY METHOD 04/04/2025 1:38 PM [facility] LAB CO2 31 21 - 32 mmol/L LAB CHEMISTRY METHOD 04/04/2025 1:38 PM [facility] LAB Anion Gap 8 3 - 11 LAB CHEMISTRY METHOD 04/04/2025 1:38 PM [facility] LAB Glucose 122(H) 70 - 100 mg/dL LAB CHEMISTRY METHOD 04/04/2025 1:38 PM [facility] BUN 21 5 - 25 mg/dL LAB CHEMISTRY METHOD 04/04/2025 1:38 PM [facility] Creatinine 0.62 0.50 - 1.10 mg/dL LAB CHEMISTRY METHOD 04/04/2025 1:38 PM [facility] LAB eGFR 87 >=60 mL/min/1. 73m2 LAB CHEMISTRY METHOD 04/04/2025 1:38 PM [facility] Comment:Calculation based on the Chronic Kidney Disease Epidemiology Collaboration (CKD-EPI) equation refit without adjustment for race. BUN/Creatinine Ratio 33.9 LAB CHEMISTRY METHOD 04/04/2025 1:38 PM [facility] Calcium 9.0 8.5 - 10.5 mg/dL LAB CHEMISTRY METHOD 04/04/2025 1:38 PM [facility] AST (SGOT) 17 10 - 42 unit/L LAB CHEMISTRY METHOD 04/04/2025 1:38 PM [facility] ALT (SGPT) 34 10 - 60 unit/L LAB CHEMISTRY METHOD 04/04/2025 1:38 PM [facility] Alkaline Phosphatase 65 42 - 121 unit/L LAB CHEMISTRY METHOD 04/04/2025 1:38 PM [facility] Total Protein 5.6(L) 6.0 - 8.0 g/dL LAB CHEMISTRY METHOD 04/04/2025 1:38 PM [facility] Albumin 2.9(L) 3.2 - 5.0 g/dL LAB CHEMISTRY METHOD 04/04/2025 1:38 PM EDT [facility] Total Bilirubin 0.9 0.0 - 1.4 mg/dL LAB CHEMISTRY METHOD 04/04/2025 1:38 PM EDT [facility] Blood Venous blood specimen / Unknown Venipuncture / Unknown 04/04/2025 8:27 AM EDT 04/04/2025 12:53 PM EDT us Mario Berrios MD LAB BLOOD ORDERABLES Final Resu lt [facility] [address] [place] [address], [place] [phone] * (ABNORMAL) Complete blood count (04/04/2025 8:27 AM EDT) WBC 11.0(H) 4.8 - 10.8 K/mcL LAB HEMETOLOGY METHOD 04/04/2025 1:20 PM EDT [facility] RBC 4.30 3.80 - 4.80 M/mcL LAB HEMETOLOGY METHOD 04/04/2025 1:20 PM EDT [facility] Hemoglobin 13.2 11.5 - 16.0 g/dL LAB HEMETOLOGY METHOD 04/04/2025 1:20 PM EDT [facility] Hematocrit 40.2 35.0 - 47.0 % LAB HEMETOLOGY METHOD 04/04/2025 1:20 PM EDT [facility] MCV 93.7 79.0 - 98.0 FL LAB HEMETOLOGY METHOD 04/04/2025 1:20 PM EDT [facility] MCH 30.8 27.0 - 32.0 pcg LAB HEMETOLOGY METHOD 04/04/2025 1:20 PM EDT [facility] MCHC 32.8 32.0 - 37.0 g/dL LAB HEMETOLOGY METHOD 04/04/2025 1:20 PM EDT [facility] RDW 15.3(H) 11.0 - 15.0 % LAB HEMETOLOGY METHOD 04/04/2025 1:20 PM EDT [facility] Platelets 179 130 - 400 K/mcL LAB HEMETOLOGY METHOD 04/04/2025 1:20 PM EDT [facility] MPV 11.9(H) 7.0 - 11.0 FL LAB HEMETOLOGY METHOD 04/04/2025 1:20 PM EDT [facility] NRBC 0.0 <1.0 % LAB HEMETOLOGY METHOD 04/04/2025 1:20 PM EDT [facility] NRBC Absolute 0.00 <0.10 K/mcL LAB HEMETOLOGY METHOD 04/04/2025 1:20 PM EDT [facility] Blood Venous blood specimen / Unknown Venipuncture / Unknown 04/04/2025 8:27 AM EDT 04/04/2025 12:53 PM EDT us Mario Berrios MD LAB BLOOD ORDERABLES Final Resu lt [facility] [address] [place] [address], documented in this encounter Visit Diagnoses Diagnosis Essential (primary) hypertension Unspecified essential hypertension documented in this encounter Care Teams Adjunct Trainer Relationship Specialty Start Date End Date Mario Berrios MD [address] [place] [phone] PCP - General Internal Medicine 04/04/25 documented as of this encounter
--- OUTSIDE RECORDS SUMMARY | 2025-06-11 17:24 | XMS_ITS | Encounter Summary ---
Author Organization [facility] Address [address] [place] [address] Care Team Providers Care Slip Cover Cutter Name Role Phone Mario Berrios MD Primary Care Provider [phone] Encounter Details Date Type Department Care Team (Late st Contact Info) Description 04/09/2025 Lab Requisition [facility] - Main Lab 299 [facility] [place] [address] Mario Berrios MD [address] [place] [phone] Dysuria; Urinary tract infection, site not [...] reflex microscopic (04/08/2025 4:45 PM EDT) Specific [place] Urine 1.028 1.003 - 1.030 LAB URINALYSIS - AUTOMATED METHOD 04/09/2025 12:19 PM [facility] pH, Urine 5.5 5.0 - 8.0 pH LAB URINALYSIS - AUTOMATED METHOD 04/09/2025 12:19 PM [facility] Leukocytes, Urine Moderate(A) Negative LAB URINALYSIS - AUTOMATED METHOD 04/09/2025 12:19 PM [facility] Nitrite, Urine Positive(A) Negative LAB URINALYSIS - AUTOMATED METHOD 04/09/2025 12:19 PM [facility] Protein, Urine 30(A) <=Trace mg/dL LAB URINALYSIS - AUTOMATED METHOD 04/09/2025 12:19 PM [facility] Glucose, Urine 100(A) Negative mg/dL LAB URINALYSIS - AUTOMATED METHOD 04/09/2025 12:19 PM [facility] Ketones, Urine Trace(A) Negative mg/dL LAB URINALYSIS - AUTOMATED METHOD 04/09/2025 12:19 PM [facility] Urobilinogen , Urine 1.0 0.2 - 1.0 mg/dL LAB URINALYSIS - AUTOMATED METHOD 04/09/2025 12:19 PM [facility] Bilirubin, Urine Negative Negative LAB URINALYSIS - AUTOMATED METHOD 04/09/2025 12:19 PM [facility] Blood, Urine Negative Negative LAB URINALYSIS - AUTOMATED METHOD 04/09/2025 12:19 PM [facility] RBC, Urine 3.7 0 - 4 /HPF LAB URINALYSIS - AUTOMATED METHOD 04/09/2025 12:19 PM [facility] WBC, Urine 59.3(H) 0 - 4 /HPF LAB URINALYSIS - AUTOMATED METHOD 04/09/2025 12:19 PM [facility] Squamous Epithelial, Urine 30 0 - 60 /LPF LAB URINALYSIS - AUTOMATED METHOD 04/09/2025 12:19 PM [facility] Bacteria, Urine Many(A) Negative /HPF LAB URINALYSIS - AUTOMATED METHOD 04/09/2025 12:19 PM EDT [facility] Hyaline Casts, Urine 8.0(H) 0 - 3 /LPF LAB URINALYSIS - AUTOMATED METHOD 04/09/2025 12:19 PM EDT [facility] Urine Urine specimen obtained by clean catch procedure / Unknown Non-blood Collection / Unknown 04/08/2025 4:45 PM EDT 04/09/2025 11:37 AM EDT us Mario Berrios MD LAB URINE ORDERABLES Final Resu lt [facility] [address] [place] [address], [place] [phone] * (ABNORMAL) Culture urine (04/08/2025 4:45 PM EDT) Culture, Urine >=100,000 CFU/mL Enterobacter cloacae complex(A) GEMA 04/11/2025 9:40 AM EDT [facility] Comment: This is an edited [...] Mario Berrios MD LAB MICROBIOLOGY - GENERAL [facility] Final Result Performing Organization Address City/State/[facility] Co de Phone Number [facility] ([facility] [address] [place] [address], documented in this encounter Visit Diagnoses Diagnosis Dysuria Urinary tract infection, site not specified documented in this encounter Care Teams Slip Cover Cutter Relationship Specialty Start Date End Date Mario Berrios MD [address] [place] [phone] PCP - General Internal Medicine 04/04/25 documented as of this encounter
--- OUTSIDE RECORDS SUMMARY | 2025-06-11 17:24 | XMS_ITS | Clinical Summary ---
Author Organization [facility] Address [address] [place] [address] Phone Care Team Providers Care Levelman Name Role Phone Mario Berrios MD Primary Care Provider [phone] Encounters Date Type Department Care Team Description 05/09/2025 Lab Requisition [facility] [address] [place] [address] Mario Berrios MD Essential (primary) hypertension 05/03/2025 Lab Requisition [facility] [address] [place] [address] Mario Berrios MD Essential (primary) hypertension 04/29/2025 Lab Requisition [facility] [address] [place] [address] Mario Berrios MD Hypo-osmolality and hyponatremia 04/24/2025 Lab Requisition [facility] [address] [place] [address] Mario Berrios MD Essential (primary) hypertension 04/23/2025 Lab Requisition [facility] [address] [place] [address] Mario Berrios MD Diarrhea, unspecified 04/22/2025 Lab Requisition [facility] [address] [place] [address] Mario Berrios MD Essential (primary) hypertension 04/17/2025 Lab Requisition [facility] [address] [place] [address] Mario Berrios MD Essential (primary) hypertension 04/15/2025 Lab Requisition [facility] [address] [place] [phone] Mario Berrios MD Essential (primary) hypertension 04/12/2025 Lab Requisition [facility] [address] [place] [phone] Mario Berrios MD Essential (primary) hypertension 04/09/2025 Lab Requisition [facility] [address] [place] [phone] Mario Berrios MD Dysuria; Urinary tract infection, site not specified 04/08/2025 Lab Requisition [facility] [address] [place] [phone] Mario Berrios MD Essential (primary) hypertension 04/06/2025 Lab Requisition [facility] [address] [place] [phone] Mario Berrios MD Essential (primary) hypertension 04/04/2025 Lab Requisition [facility] [address] [place] [phone] Mario Berrios MD Essential (primary) hypertension from [...] K/mcL LAB HEMETOLOGY METHOD 05/04/2025 11:11 AM [facility] RBC 4.00 3.80 - 4.80 M/mcL LAB HEMETOLOGY METHOD 05/04/2025 11:11 AM [facility] Hemoglobin 12.3 11.5 - 16.0 g/dL LAB HEMETOLOGY METHOD 05/04/2025 11:11 AM [facility] Hematocrit 36.4 35.0 - 47.0 % LAB HEMETOLOGY METHOD 05/04/2025 11:11 AM [facility] MCV 91.9 79.0 - 98.0 FL LAB HEMETOLOGY METHOD 05/04/2025 11:11 AM [facility] MCH 31.1 27.0 - 32.0 pcg LAB HEMETOLOGY METHOD 05/04/2025 11:11 AM [facility] MCHC 33.8 32.0 - 37.0 g/dL LAB HEMETOLOGY METHOD 05/04/2025 11:11 AM [facility] RDW 15.1(H) 11.0 - 15.0 % LAB HEMETOLOGY METHOD 05/04/2025 11:11 AM [facility] Platelets 204 130 - 400 K/mcL LAB HEMETOLOGY METHOD 05/04/2025 11:[address] [facility] MPV 10.3 7.0 - 11.0 FL LAB HEMETOLOGY METHOD 05/04/2025 11:[address] [facility] NRBC 0.0 <1.0 % LAB HEMETOLOGY METHOD 05/04/2025 11:[address] [facility] NRBC Absolute 0.00 <0.10 K/mcL LAB HEMETOLOGY METHOD 05/04/2025 11:[address] [facility] Blood Venous blood specimen / Unknown Venipuncture / Unknown 05/04/2025 5:20 AM EDT 05/04/2025 10:22 AM EDT us Mario Berrios MD LAB BLOOD ORDERABLES Final Resu lt [facility] [address] [place] [address], [place] [phone] * (ABNORMAL) Comprehensive metabolic panel (05/04/2025 5:20 AM EDT) Only the most recent of7 resultswithin the time period is included. Sodium 131(L) 133 - 145 mmol/L LAB CHEMISTRY METHOD 05/04/2025 11:[address] [facility] Potassium 3.6 3.5 - 5.5 mmol/L LAB CHEMISTRY METHOD 05/04/2025 11:30 AM [facility] Comment:Hemolysis present Chloride 94(L) 96 - 110 mmol/L LAB CHEMISTRY METHOD 05/04/2025 11:30 AM [facility] CO2 28 21 - 32 mmol/L LAB CHEMISTRY METHOD 05/04/2025 11:30 AM [facility] Anion Gap 9 3 - 11 LAB [facility] Glucose 79 70 - 100 mg/dL LAB CHEMISTRY METHOD 05/04/2025 11:30 AM [facility] BUN 11 5 - 25 mg/dL LAB CHEMISTRY METHOD 05/04/2025 11:30 AM [facility] Creatinine 0.44(L) 0.50 - 1.10 mg/dL LAB CHEMISTRY METHOD 05/04/2025 11:30 AM [facility] eGFR 95 >=60 mL/min/1. 73m2 LAB CHEMISTRY METHOD 05/04/2025 11:30 AM [facility] Comment:Calculation based on the Chronic Kidney Disease Epidemiology Collaboration (CKD-EPI) equation refit without adjustment for race. BUN/Creatinine Ratio 25.0 LAB CHEMISTRY METHOD 05/04/2025 11:30 AM [facility] Calcium 8.1(L) 8.5 - 10.5 mg/dL LAB CHEMISTRY METHOD 05/04/2025 11:30 AM [facility] AST (SGOT) 28 10 - 42 unit/L LAB CHEMISTRY METHOD 05/04/2025 11:30 AM [facility] Comment:Hemolysis present ALT (SGPT) 27 10 - 60 unit/L LAB CHEMISTRY METHOD 05/04/2025 11:30 AM [facility] Alkaline Phosphatase 140(H) 42 - 121 unit/L LAB CHEMISTRY METHOD 05/04/2025 11:30 AM [facility] Total Protein 5.5(L) 6.0 - 8.0 g/dL LAB CHEMISTRY METHOD 05/04/2025 11:30 AM [facility] Albumin 2.5(L) 3.2 - 5.0 g/dL LAB CHEMISTRY METHOD 05/04/2025 11:30 AM [facility] Total Bilirubin 0.8 0.0 - 1.4 mg/dL LAB CHEMISTRY METHOD 05/04/2025 11:30 AM [facility] Blood Venous blood specimen / Unknown Venipuncture / Unknown 05/04/2025 5:20 AM EDT 05/04/2025 10:20 AM EDT us Mario Berrios MD LAB BLOOD ORDERABLES Final Resu lt [facility] [address] [place] [address], [place] [phone] * (ABNORMAL) Basic metabolic panel (04/23/2025 5:52 AM EDT) Only the most recent of3 resultswithin the time period is included. Sodium 133 133 - 145 mmol/L LAB CHEMISTRY METHOD 04/23/2025 10:52 AM [facility] Potassium 3.7 3.5 - 5.5 mmol/L LAB CHEMISTRY METHOD 04/23/2025 10:52 AM [facility] Chloride 95(L) 96 - 110 mmol/L LAB CHEMISTRY METHOD 04/23/2025 10:52 AM [facility] CO2 33(H) 21 - 32 mmol/L LAB CHEMISTRY METHOD 04/23/2025 10:52 AM [facility] Anion Gap 5 3 - 11 LAB CHEMISTRY METHOD 04/23/2025 10:52 AM [facility] Glucose 88 70 - 100 mg/dL LAB CHEMISTRY METHOD 04/23/2025 10:52 AM [facility] BUN 9 5 - 25 mg/dL LAB CHEMISTRY METHOD 04/23/2025 10:52 AM [facility] Creatinine 0.60 0.50 - 1.10 mg/dL LAB CHEMISTRY METHOD 04/23/2025 10:52 AM [facility] eGFR 88 >=60 mL/min/1. 73m2 LAB CHEMISTRY METHOD 04/23/2025 10:52 AM [facility] Comment:Calculation based on the Chronic Kidney Disease Epidemiology Collaboration (CKD-EPI) equation refit without adjustment for race. BUN/Creatinine Ratio 15.0 LAB CHEMISTRY METHOD 04/23/2025 10:[address] [facility] Calcium 7.4(L) 8.5 - 10.5 mg/dL LAB CHEMISTRY METHOD 04/23/2025 10:[address] [facility] Blood Venous blood specimen / Unknown Venipuncture / Unknown 04/23/2025 5:52 AM EDT 04/23/2025 9:52 AM EDT us Mario Berrios MD LAB BLOOD ORDERABLES Final Resu lt [facility] [address] [place] [address], [place] [phone] * (ABNORMAL) Urinalysis with reflex microscopic (04/08/2025 4:45 PM EDT) Specific [place] Urine 1.028 1.003 - 1.030 LAB URINALYSIS - AUTOMATED METHOD 04/09/2025 12:19 PM [facility] pH, Urine 5.5 5.0 - 8.0 pH LAB URINALYSIS - AUTOMATED METHOD 04/09/2025 12:19 PM [facility] Leukocytes, Urine Moderate(A) Negative LAB URINALYSIS - AUTOMATED METHOD 04/09/2025 12:19 PM [facility] Nitrite, Urine Positive(A) Negative LAB URINALYSIS - AUTOMATED METHOD 04/09/2025 12:19 PM [facility] Protein, Urine 30(A) <=Trace mg/dL LAB URINALYSIS - AUTOMATED METHOD 04/09/2025 12:19 PM [facility] Glucose, Urine 100(A) Negative mg/dL LAB URINALYSIS - AUTOMATED METHOD 04/09/2025 12:19 PM [facility] Ketones, Urine Trace(A) Negative mg/dL LAB URINALYSIS - AUTOMATED METHOD 04/09/2025 12:19 PM [facility] Urobilinogen , Urine 1.0 0.2 - 1.0 mg/dL LAB URINALYSIS - AUTOMATED METHOD 04/09/2025 12:19 PM [facility] Bilirubin, Urine Negative Negative LAB URINALYSIS - AUTOMATED METHOD 04/09/2025 12:19 PM [facility] Blood, Urine Negative Negative LAB URINALYSIS - AUTOMATED METHOD 04/09/2025 12:19 PM [facility] RBC, Urine 3.7 0 - 4 /HPF LAB URINALYSIS - AUTOMATED METHOD 04/09/2025 12:19 PM [facility] WBC, Urine 59.3(H) 0 - 4 /HPF LAB URINALYSIS - AUTOMATED METHOD 04/09/2025 12:19 PM [facility] Squamous Epithelial, Urine 30 0 - 60 /LPF LAB URINALYSIS - AUTOMATED METHOD 04/09/2025 12:19 PM [facility] Bacteria, Urine Many(A) Negative /HPF LAB URINALYSIS - AUTOMATED METHOD 04/09/2025 12:19 PM [facility] Hyaline Casts, Urine 8.0(H) 0 - 3 /LPF LAB URINALYSIS - AUTOMATED METHOD 04/09/2025 12:19 PM [facility] Urine Urine specimen obtained by clean catch procedure / Unknown Non-blood Collection / Unknown 04/08/2025 4:45 PM EDT 04/09/2025 11:37 AM EDT us Mario Berrios MD LAB URINE ORDERABLES Final Resu lt [facility] [address] [place] [address], * (ABNORMAL) Culture urine (04/08/2025 4:45 PM EDT) [facility] Signature Culture, Urine >=100,000 CFU/mL Enterobacter cloacae complex(A) GEMA 04/11/2025 9:40 AM EDT [facility] Comment: This is an edited result. [...] MICROBIOLOGY - GENERAL ORDE SHERWIN Final Result [facility] ([facility]) [facility] [address] [place] [address], [place] [phone] from Last 3 Months Insurance MEDICARE [facility] UC[employer] MED[employer]ARE Care Teams Levelman Relationship Specialty Start Date End Date Mario Berrios MD [address] [place] [address] PCP - General Internal Medicine 04/04/25
--- OUTSIDE RECORDS SUMMARY | 2025-06-11 17:24 | XMS_ITS | Encounter Summary ---
Author Organization [facility] Address [address] [place] [address] Care Team Providers Care Risk Mgr Name Role Phone Mario Berrios MD Primary Care Provider [phone] Encounter Details Date Type Department Care Team (Late st Contact Info) Description 04/22/2025 Lab Requisition [facility] - Main Lab [address] [facility] [place] [address] Mario Berrios MD [address] [place] [phone] Essential (primary) hypertension Social History Tobacco Use [...] LAB CHEMISTRY METHOD 04/23/2025 10:52 AM EDT [facility] Potassium 3.7 3.5 - 5.5 mmol/L LAB CHEMISTRY METHOD 04/23/2025 10:52 AM EDT [facility] Chloride 95(L) 96 - 110 mmol/L LAB CHEMISTRY METHOD 04/23/2025 10:52 AM [facility] CO2 33(H) 21 - 32 mmol/L LAB CHEMISTRY METHOD 04/23/2025 10:52 AM [facility] Anion Gap 5 3 - 11 LAB CHEMISTRY METHOD 04/23/2025 10:52 AM [facility] Glucose 88 70 - 100 mg/dL LAB CHEMISTRY METHOD 04/23/2025 10:52 AM [facility] BUN 9 5 - 25 mg/dL LAB CHEMISTRY METHOD 04/23/2025 10:52 AM [facility] Creatinine 0.60 0.50 - 1.10 mg/dL LAB CHEMISTRY METHOD 04/23/2025 10:52 AM [facility] eGFR 88 >=60 mL/min/1. 73m2 LAB CHEMISTRY METHOD 04/23/2025 10:52 AM [facility] Comment:Calculation based on the Chronic Kidney Disease Epidemiology Collaboration (CKD-EPI) equation refit without adjustment for race. BUN/Creatinine Ratio 15.0 LAB CHEMISTRY METHOD 04/23/2025 10:52 AM [facility] Calcium 7.4(L) 8.5 - 10.5 mg/dL LAB CHEMISTRY METHOD 04/23/2025 10:52 AM [facility] Blood Venous blood specimen / Unknown Venipuncture / Unknown 04/23/2025 5:52 AM EDT 04/23/2025 9:52 AM EDT us Mario Berrios MD LAB BLOOD ORDERABLES Final Resu lt [facility] [address] [place] [address], * (ABNORMAL) Complete blood count (04/23/2025 5:52 AM EDT) WBC 6.0 4.8 - 10.8 K/mcL LAB HEMETOLOGY METHOD 04/23/2025 10:13 AM [facility] RBC 4.00 3.80 - 4.80 M/mcL LAB HEMETOLOGY METHOD 04/23/2025 10:13 AM [facility] Hemoglobin 12.6 11.5 - 16.0 g/dL LAB HEMETOLOGY METHOD 04/23/2025 10:13 AM [facility] Hematocrit 37.6 35.0 - 47.0 % LAB HEMETOLOGY METHOD 04/23/2025 10:13 AM [facility] MCV 93.5 79.0 - 98.0 FL LAB HEMETOLOGY METHOD 04/23/2025 10:13 AM [facility] MCH 31.3 27.0 - 32.0 pcg LAB HEMETOLOGY METHOD 04/23/2025 10:13 AM [facility] MCHC 33.5 32.0 - 37.0 g/dL LAB HEMETOLOGY METHOD 04/23/2025 10:13 AM [facility] RDW 16.2(H) 11.0 - 15.0 % LAB HEMETOLOGY METHOD 04/23/2025 10:13 AM [facility] Platelets 157 130 - 400 K/mcL LAB HEMETOLOGY METHOD 04/23/2025 10:13 AM [facility] MPV 11.1(H) 7.0 - 11.0 FL LAB HEMETOLOGY METHOD 04/23/2025 10:13 AM [facility] NRBC 0.0 <1.0 % LAB HEMETOLOGY METHOD 04/23/2025 10:13 AM [facility] NRBC Absolute 0.00 <0.10 K/mcL LAB HEMETOLOGY METHOD 04/23/2025 10:13 AM [facility] Blood Venous blood specimen / Unknown Venipuncture / Unknown 04/23/2025 5:52 AM EDT 04/23/2025 9:50 AM EDT Mario Berrios MD LAB BLOOD ORDERABLES Final Resu lt [facility] ([facility] [address] [place] [address], documented in this encounter Visit Diagnoses Diagnosis Essential (primary) hypertension Unspecified essential hypertension documented in this encounter Care Teams Risk Mgr Relationship Specialty Start Date End Date Mario Berrios MD [address] [place] [address] PCP - General Internal Medicine 04/04/25 documented as of this encounter
--- OUTSIDE RECORDS SUMMARY | 2025-06-11 17:24 | XMS_ITS | Encounter Summary ---
Author Organization [facility] Address [address] [place] [address] Care Team Providers Care Counter Hand Name Role Phone Mario Berrios MD Primary Care Provider [phone] Encounter Details Date Type Department Care Team (Late st Contact Info) Description 04/12/[address] [facility] - Main Lab [address] [facility] [place] [address] Mario Berrios MD [address] [place] [phone] Essential (primary) hypertension Social History Tobacco Use [...] AM EDT) WBC 8.1 4.8 - 10.8 K/[facility] LAB HEMETOLOGY METHOD 04/13/2025 11:31 AM EDT [facility] RBC 4.00 3.80 - 4.80 M/[facility] LAB HEMETOLOGY METHOD 04/13/2025 11:31 AM EDT [facility] Hemoglobin 12.5 11.5 - 16.0 g/dL LAB HEMETOLOGY METHOD 04/13/2025 11:31 AM [facility] LAB Hematocrit 37.3 35.0 - 47.0 % LAB HEMETOLOGY METHOD 04/13/2025 11:31 AM [facility] MCV 92.8 79.0 - 98.0 FL LAB HEMETOLOGY METHOD [facility] MCH 31.1 27.0 - 32.0 [...] lt [facility] [address] [place] [address], [place] [phone] * (ABNORMAL) Comprehensive metabolic panel (04/13/2025 8:37 [...] LAB CHEMISTRY METHOD 04/13/2025 11:42 AM T [facility] Total Protein 5.3(L) [...] Resu lt [facility] [address] [place] [address], documented in this encounter Visit Diagnoses Diagnosis Essential (primary) hypertension Unspecified essential hypertension documented in this encounter Care Teams Counter Hand Relationship Specialty Start Date End Date Mario Berrios MD [address] [place] [address] PCP - General Internal Medicine 04/04/25 documented as of this encounter
--- OUTSIDE RECORDS SUMMARY | 2025-06-11 17:24 | XMS_ITS | Encounter Summary ---
Author Organization [facility] Address [address] [place] [address] Care Team Providers Care Chemical Weigher Name Role Phone Mario Berrios MD Primary Care Provider [phone] Encounter Details Date Type Department Care Team (Late st Contact Info) Description 05/09/[address] [facility] - Main Lab [address] [facility] [place] [address] Mario Berrios MD [address] [place] [address] Essential (primary) hypertension Social History [...] hypertension documented in this encounter Care Teams Chemical Weigher Relationship Specialty Start Date End Date Mario Berrios MD [address] [place] [address] PCP - General Internal Medicine 04/04/25 documented as of this encounter
== END 2025-06-11 11:54 | disposition home or self-care (01) ==
LOC: HO.HMGCLDS 11:53
PROVIDERS: PCP Internal Medicine; Visit Provider Physician Assistant
DX: Z09 Encounter for follow-up examination after completed treatment for conditions other than malignant neoplasm (principal); E87.1 Hypo-osmolality and hyponatremia; E83.42 Hypomagnesemia; I48.0 Paroxysmal atrial fibrillation; E04.1 Nontoxic single thyroid nodule
CPT/HCPCS: 36415; 80053; 83735; 99495

== ENCOUNTER 2025-06-15 12:00 | Outpatient (REF) | payer MEDICARE, OTHER, SELFPAY ==
--- NOTE | ~2025-06-15 | MM_ITS ---
EXAMINATION: MM SCREENING DIGITAL BREAST TOMOSYNTHESIS, LEFT CLINICAL INFORMATION: Screening. Asymptomatic. Right mastectomy. COMPARISON: Mammography: This study is compared with prior exams dating back to TECHNIQUE: Digital breast tomosynthesis is performed in both the craniocaudal and mediolateral oblique views along with computer-aided detection (CAD). Synthesized 2D images are generated from the tomosynthesis. FINDINGS: The breasts are heterogeneously dense, which may obscure small masses. There are no significant masses, abnormal calcifications, or other abnormalities. MM/MM tomosynthesis screening LT IMPRESSION: No mammographic evidence of malignancy. ASSESSMENT: BI-RADS Category 1: Negative RECOMMENDATION: Routine annual mammography screening. 1 year F/U This examination should not preclude the clinical evaluation of a suspicious palpable abnormality. This patient's information was entered into a reminder system with a target due date for their next mammogram. Electronically signed by: Dasha Eduardo DO 06/16/2025 01:00 PM EDT
--- NOTE | 2025-06-15 12:38 | HM_ITS ---
Conclusion: 1. Patient was monitored for total period of 6 days 2. Baseline was atrial fibrillation with average heart of 94 beats per minute with borderline rate control 3. Frequent pauses noted, 78 times with longest pause of 4.3 seconds 4. No patient reported events MTDD
--- OUTSIDE RECORDS SUMMARY | 2025-06-15 13:22 | XMS_ITS | Patient Health Record ---
Author Organization [facility] Address [address] [facility] [address] Care Team Providers Care Nuclear Equipment Test Engineer Name Role Phone Owen VIEYRA, Ora Primary Care Provider Unavailab Karol Yanes Unavailable [phone] Reason For Referral No Information Medications Medication [...] Treatment Pending Test Test Name Order Date [id number] TENDON SHEATH/LIGAMENT 0 11/27/2019 Insurance Providers Payer Name Payer Address Payer Phone Subscriber Number Group Number Insured Name Patient Relationship to Insured Coverage Start Date Coverage End Date Medicare [facility] [employer] [address] [place] [address] [phone] [id number] Yesenia Fisher Self - patient is the insured [facility] [address] [place] [address] [phone] [id number] Yesenia Fisher Self - patient is the insured Medical (General) History Medical History History ICD Code Reflux Measles breast cancer Mumps Surgical History Surgery Date(Month/Year) cancer surgery 07/1992 varicose vein stripping 1974 hysterectomy 1989
== END 2025-06-15 12:01 | disposition home or self-care (01) ==
LOC: HO.MAMMO 12:00
PROVIDERS: PCP Internal Medicine; Visit Provider Internal Medicine
DX: Z12.31 Encounter for screening mammogram for malignant neoplasm of breast (principal); I50.9 Heart failure, unspecified; I48.91 Unspecified atrial fibrillation; Z90.11 Acquired absence of right breast and nipple
CPT/HCPCS: 77063; 77067; 93225

== ENCOUNTER → 2025-06-15 12:15 | Outpatient (BNV) | payer MEDICARE, OTHER, SELFPAY | PROVIDERS: PCP Internal Medicine; Visit Provider Internal Medicine | DX: Z12.31 Encounter for screening mammogram for malignant neoplasm of breast (principal) | CPT/HCPCS: 77063; 77067 ==

== ENCOUNTER → 2025-06-15 12:38 | Outpatient (BNV) | payer MEDICARE, OTHER, SELFPAY | PROVIDERS: PCP Internal Medicine; Visit Provider Internal Medicine Cardiovascular Disease | DX: I48.91 Unspecified atrial fibrillation (principal) | CPT/HCPCS: 93244 ==

== ENCOUNTER 2025-06-24 12:09 | Outpatient (AMB) | payer MEDICARE, OTHER, SELFPAY ==
--- NOTE | 2025-06-24 12:36 | A.OFFPC_ITS ---
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 Required: No Accompanied by: Daughter Allergies hydralazine Allergy (Verified 06/24/25 12:54) Unknown hydrochlorothiazide Adverse Reaction (Intermediate, Verified 06/24/25 12:54) Palpitations amlodipine Adverse Reaction (Verified 06/24/25 12:54) DIZZINESS sotalol Adverse Reaction (Verified 06/24/25 12:54) Palpitations Medication List - Last Reconciled 06/24/25 by Krista Allen MD apixaban 5 mg PO BID atorvastatin (Lipitor) 10 mg PO BEDTIME digoxin 0.125 mg PO DAILY empagliflozin (Jardiance) 10 mg PO DAILY Lactobacillus rhamnosus GG (Culturelle) 1 cap PO BID omeprazole 20 mg PO DAILY@0630 oxycodone 5 mg PO Q8H PRN Tobacco use date assessed: 05/14/25 Fall risk assessment: 2 + Falls in past year Last assessed Fall Risk: 06/24/25 Dental Screening Dental Screen Date: 06/24/25 Did you have a dental visit in the last 12 months?: Yes Did you have a dental problem in the last 6 months where you did not have access to dental care?: No Was dental information given to patient?: Patient has dentist HPI 3wk f/u sugar level HPI Details Patient presents for the follow-up. She was hospitalized at [facility] for 5 days discharge on May 28 for UTI CHF and AFib with RVR. Patient reports feeling tired and has been working with physical therapist ambulating with a walker. She has been confused about her discharge medications. She has been taking digoxin only with the heart rate was over 90 (once or twice a week) and metoprolol only if the blood pressure was about 120 but not daily. Patient has been taking furosemide only when her weight increased by 2 lb (took it twice a week last week). She is established with Hematology for multiple myeloma treatment [facility] Medical History (Updated 06/24/25 @ 16:03 by Krista Allen MD) Paroxysmal atrial fibrillation Atrial fibrillation with RVR CHF (congestive heart failure) Hyponatremia DM type 2 (diabetes mellitus, type 2) Spinal stenosis 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 Lesion of bone of lumbosacral spine Multiple myeloma Lower back pain Impacted cerumen of both ears Dysplastic nevus Vitamin D deficiency Annual physical exam Palpitations Leukoplakia of tongue Hyperlipidemia Peripheral neuropathy Dysuria Surgical History H/O arthroscopy of knee H/O varicose vein ligation H/O: hysterectomy H/O mastectomy H/O colonoscopy Family History Father No problems noted. Mother No problems noted. Son Diabetes Social History Household Members: Family Household Members Other:: d/c from [facility] 05/06 staying w/ daughter Barbara at this time. Housing: House Do you presently have visiting nurse or other home services: No Alcohol intake: former Patient Tobacco Use Status: Never used Tobacco e-Cigarette/Vaping Use: Never Used Second Hand Smoke Exposure: No service: No Current occupational status: retired Gender identity: Female Cognitive needs: No Hearing needs: No Vision needs: Yes Questionnaire PHQ-9 Over the last 2 weeks, how often have you been bothered by any of the following problems? 1. Little interest or pleasure in doing things: not at all 2. Feeling down, depressed, or hopeless: not at all 3. Trouble falling or staying asleep, or sleeping too much: not at all 4. Feeling tired or having little energy: not at all 5. Poor appetite or overeating: not at all 6. Feeling bad about yourself - or that you are a failure or have let yourself or your family down: not at all 7. Trouble concentrating on things, such as reading the newspaper or watching television: not at all 8. Moving or speaking so slowly that other people could have noticed. Or the opposite - being so fidgety or restless that you have been moving around a lot more than usual: not at all 9. Thoughts that you would be better off or of hurting yourself in some way: not at all Total score: 0 Depression Screening Interpretation: Negative Depression Screening Done: Yes 13452 - PHQ-9 Billing: Yes Source: Developed by Drs. Jae Sandoval, Yolanda Ennis, Darnell Matias and colleagues, with an educational chu from [employer]. Thrive Questionnaire Date Thrive assessed: 10/21/24 I am a: Patient What is your living situation today?: I have a steady place to live Within the past 12 months, did the food you bought not last and you didn't have the money to get more?: Never true Within the past 12 months, did you worry whether your food would run out before you got money to buy more?: Never true Do you have trouble paying for medicines?: No Do you have trouble getting transportation to medical appointments?: No Do you have trouble paying your heating and electricity bill?: No Do you have trouble taking care of your child, family member or friend?: No Do you have trouble with day-to-day activities such as bathing, preparing meals, shopping, managing finances, etc.?: No Are you currently unemployed and looking for a job?: No Are you interested in more education?: No Please select the resources that you would like help with: None Currently or been in a relationship where the following occur: No concerns reported THRIVE Score: 0 BRADY-7 AMB Questionnaire BRADY-7 Date BRADY - 7 assessed: 06/24/25 Feeling nervous, anxious, or on edge: 0 = Not at all Not being able to stop or control worryin = Not at all Worrying too much about different things: 0 = Not at all Trouble relaxin = Not at all Being so restless that it is hard to sit still: 0 = Not at all Becoming easily annoyed or irritable: 0 = Not at all Feeling afraid as if something awful might happen: 0 = Not at all Total BRADY-7 score (0-4 normal; 5-9 mild; 10-14 moderate; 15-21 severe): 0 Source: Developed by Drs. Jae Sandoval, Darnell Aguilar and colleagues, with an educational chu from [employer]. Review of Systems Const All systems reviewed & are unremarkable except as noted in HPI and below Eyes Reports no additional complaints ENT Reports no additional complaints Card Reports no additional complaints Resp Reports no additional complaints GI Reports no additional complaints Physical exam (Primary Care) Vital Signs: Last Vital Signs Pulse 86 06/24/25 12:49 Resp 16 06/24/25 12:49 BP 112/70 06/24/25 12:49 Pulse Ox 95 06/24/25 12:49 Oxygen Delivery Method Room Air 06/24/25 12:49 BMI result Body Mass Index 23.2 Tobacco/Smoking Status: Tobacco use Status Tobacco use date assessed 05/14/25 06/24/25 12:36 Patient Tobacco Use Status Never used Tobacco 06/24/25 12:36 e-Cigarette/Vaping Use Never Used 06/24/25 12:36 PHQ-9: PHQ-9 Score PHQ-9: Total score 0 06/24/25 12:55 Depression Screening Interpretation: Negative Thrive Assessment: Date of Thrive Assessment Date Thrive assessed 10/21/24 06/24/25 12:36 Currently or been in a relationship where the following occur: No concerns reported Const General: no acute distress HENMT Head: Yes normal to inspection General nose exam: Normal external nose present Throat: Yes posterior oropharynx normal Neck Neck: Yes supple Resp Effort & Inspection: normal respiratory effort Auscultation: crackles (At bases) and diminished lung sounds Cardio Rhythm: abnormal rhythm irregularly irregular Heart sounds: S1 normal heart sound present and S2 normal heart sound present GI Inspection: Yes normal to inspection Palpation (GI): Soft to palpation Percussion: Yes normal to percussion Auscultation: normal bowel sounds Extrem General: Yes no clubbing, cyanosis or edema Coding Level of Care Code Est Pt Level 4 (14012) Diagnoses Atrial fibrillation with RVR I48.91 DM type 2 (diabetes mellitus, type 2) E11.9 Multiple myeloma C90.00 Additional Codes PHQ-9 - 22393 - PHQ-9 Billing: Yes ([id number]) Assessment & Plan Assessment & Plan (1) Atrial fibrillation with RVR: Comment: [facility] admission 05/22 -05/28, started on Digoxin and Metoprolol, Echo 05/25/2025 ejection fraction 65% mildly LVH, mild AR and mild MR Code(s): I48.91 - Unspecified atrial fibrillation Category: Medical Plan: EKG show AFib with rapid ventricular rate and 112. No acute ST-T changes. Patient will start digoxin 125 mg daily and metoprolol 50 mg daily. She will continue monitoring her blood pressure and heart rate at home and report the readings. Patient will restart furosemide 20 mg every other day comprehensive panel BNP will be checked today patient will follow-up in 1 week (2) DM type 2 (diabetes mellitus, type 2): Comment: A1c was 7.4 04/2025, on Jardiance Code(s): E11.9 - Type 2 diabetes mellitus without complications Category: Medical Plan: Continue Jardiance and ADA diet (3) Multiple myeloma: Comment: IgG kappa monoclonal band on immunofixation 11/2024, started on denosumab 120 mg monthly for multiple bone lesions mainly in thoracic and lumbar spine, s/p RVD, Revlimid discontinued because of rash. Established with [facility] hematology Code(s): C90.00 - Multiple myeloma not having achieved remission Category: Medical Plan: Follow-up with Hematology Medications: New furosemide (Lasix) 20 mg PO Q OTHER DAY 60 tabs 0RF metoprolol succinate ER 50 mg PO DAILY 90 tabs 0RF Refilled digoxin 0.125 mg PO DAILY 30 tabs 0RF Discontinued furosemide Discontinued Reason: Doctor's Order 40 mg See Protocol PO DAILY 30 tabs 0RF metoprolol succinate ER Discontinued Reason: Doctor's Order 50 mg PO BID 180 tabs 3RF diltiazem HCl CD Discontinued Reason: Doctor's Order 240 mg PO DAILY 90 caps 3RF
[2025-06-24 12:49] VITALS: BP 112/70; PULSE 86; RESP 16; O2SAT 95; BMI 23.2
== END 2025-06-24 14:05 | disposition home or self-care (01) ==
LOC: HO.HMCC 12:10
PROVIDERS: PCP Internal Medicine; Visit Provider Internal Medicine
DX: I48.91 Unspecified atrial fibrillation (principal); E11.9 Type 2 diabetes mellitus without complications; C90.00 Multiple myeloma not having achieved remission

== ENCOUNTER → 2025-06-24 12:09 | Outpatient (BNVA) | payer MEDICARE, OTHER, SELFPAY | PROVIDERS: PCP Internal Medicine; Visit Provider Internal Medicine | DX: E11.9 Type 2 diabetes mellitus without complications (principal); R53.83 Other fatigue; I48.91 Unspecified atrial fibrillation; C90.00 Multiple myeloma not having achieved remission | CPT/HCPCS: 96127; 99212 ==

== ENCOUNTER → 2025-07-09 23:59 | Outpatient (BNV) | payer MEDICARE, OTHER, SELFPAY | PROVIDERS: PCP Internal Medicine; Visit Provider Internal Medicine | DX: I11.9 Hypertensive heart disease without heart failure (principal); I50.33 Acute on chronic diastolic (congestive) heart failure; C90.00 Multiple myeloma not having achieved remission | CPT/HCPCS: G0179 ==

== ENCOUNTER 2025-07-22 15:13 | Outpatient (AMB) | payer MEDICARE, OTHER, SELFPAY ==
--- NOTE | 2025-07-22 15:20 | A.OFFVIS_ITS ---
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: No Accompanied by: Son Allergies hydralazine Allergy (Verified 07/22/25 15:25) Unknown hydrochlorothiazide Adverse Reaction (Intermediate, Verified 07/22/25 15:25) Palpitations amlodipine Adverse Reaction (Verified 07/22/25 15:25) DIZZINESS sotalol Adverse Reaction (Verified 07/22/25 15:25) Palpitations Medication List - Last Reconciled 07/22/25 by Michael Byrne NP apixaban 5 mg PO BID atorvastatin (Lipitor) 10 mg PO BEDTIME digoxin 0.125 mg PO DAILY empagliflozin (Jardiance) 10 mg PO DAILY furosemide (Lasix) 20 mg PO Q OTHER DAY Lactobacillus rhamnosus GG (Culturelle) 1 cap PO BID metoprolol succinate ER 50 mg PO BID omeprazole 20 mg PO DAILY@0630 ondansetron 8 mg PO Q8H PRN oxycodone 5 mg PO Q8H PRN HPI Comments Details: This is an 84-year-old female patient coming in for a hospital discharge follow-up, accompanied by her son. Patient with a history of hypertension, hyperlipidemia, AFib, diabetes, and multiple myeloma follows with the Oncology. Patient since her last office visit, patient has been twice in the hospital for AFib with RVR. Most recently, patient was noted to have elevated heart rate with some shortness of breath and therefore was sent to the emergency room. Patient was in AFib with RVR and was initially on Cardizem drip then later that was switched to p.o. and patient received IV digoxin after which patient's heart rate slowed down in the 30s. Digoxin was then switched to p.o.. Patient was discharged on digoxin daily in addition to her metoprolol therapy. There has been some confusion about medications and therefore patient was not taking them as prescribed. Today, patient is reporting feeling well overall without any cardiac symptoms of exertional chest pain, shortness of breath, palpitations, dizziness, orthopnea, PND, leg edema, presyncope, or syncope. [facility] Medical History (Updated 07/22/25 @ 16:35 by Michael Byrne NP) CHF (congestive heart failure) Paroxysmal atrial fibrillation Atrial fibrillation with RVR Hyponatremia DM type 2 (diabetes mellitus, type 2) Spinal stenosis 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 Lesion of bone of lumbosacral spine Multiple myeloma Lower back pain Impacted cerumen of both ears Dysplastic nevus Vitamin D deficiency Annual physical exam Palpitations Leukoplakia of tongue Hyperlipidemia Peripheral neuropathy Dysuria Surgical History H/O arthroscopy of knee H/O varicose vein ligation H/O: hysterectomy H/O mastectomy H/O colonoscopy Family History Father No problems noted. Mother No problems noted. Son Diabetes Social History Household Members: Family Household Members Other:: d/c from [facility] 05/06 staying w/ daughter Barbara at this time. Housing: House Do you presently have visiting nurse or other home services: No Alcohol intake: former Patient Tobacco Use Status: Never used Tobacco e-Cigarette/Vaping Use: Never Used Second Hand Smoke Exposure: No service: No Current occupational status: retired Gender identity: Female Cognitive needs: No Hearing needs: No Vision needs: Yes Review of Systems Const Denies daytime sleepiness, Denies difficulty sleeping, Denies snoring, Denies stops breathing during sleep and Denies weakness Card Denies chest pain, Denies rapid heart rate, Denies irregular heart rhythm, Denies claudication, Denies leg edema, Denies lightheadedness, Denies palpitations, Denies dyspnea, Denies dyspnea on exertion, Denies orthopnea, Denies paroxysmal nocturnal dyspnea and Denies slow heart rate Resp Denies cough, Denies dyspnea, Denies dyspnea on exertion and Denies snoring GI Reports no additional complaints, Denies hematochezia, Denies change in stool character and Denies dyspepsia Musc Denies abnormal gait, Denies muscle weakness and Denies numbness Neuro Denies abnormal gait, Denies numbness and Denies weakness Endo Denies palpitations Physical Exam Vital Signs: Last Vital Signs Pulse 102 H 07/22/25 15:21 BP 124/58 L 07/22/25 15:21 BMI result Body Mass Index 22.1 Const General: cooperative, healthy appearing, comfortable and no acute distress Orientation/consciousness: patient oriented x3 HEENT Head: Yes normal to inspection Neck Neck: Yes normal visual inspection, Yes trachea midline and Yes supple Chest Chest palpation & inspection: normal inspection of the chest Resp Effort & Inspection: normal respiratory effort Auscultation: clear to auscultation bilaterally, no crackles, no rales, no rhonchi and no wheezes Cardio Jugular venous distension: no JVD Palpation: normal PMI Rate: tachycardic Rhythm: abnormal rhythm irregularly irregular Heart sounds: S1 normal heart sound present, S2 normal heart sound present, no click, no gallops, no murmurs and no rubs Peripheral pulses: Peripheral pulses 2+ throughout GI Inspection: Yes normal to inspection Palpation (GI): Soft to palpation Auscultation: normal bowel sounds Skin General skin exam: no rashes or lesions noted Neuro General: patient oriented x3 Extrem General: Yes normal to inspection, No no pedal edema and No calf tenderness Psych Appearance: grossly normal Mental Status: mental status grossly normal Speech and movement: Normal speech and movement present Office Procedures EKG Details: EKG today showed atrial fibrillation with rate at 102 beats per minute, PACs, right bundle branch block, T-wave abnormality, [place]. [id number], Complete Assessment & Plan Assessment & Plan (1) Persistent atrial fibrillation: Code(s): I48.19 - Other persistent atrial fibrillation Category: Medical Plan: 12/17/2024-patient underwent myocardial perfusion study which was normal. 06/15/2025-Holter study showed baseline a fib with the average heart rate of 94 beats per minute, frequent pauses longest of 4.3 seconds. Patient was recently in the hospital for AFib with RVR and heart failure. Patient was discharged on digoxin, increased dose of Lasix and Jardiance. There has been confusion about how to take the medications and therefore patient was not taking it regularly as prescribed. EKG today showed AFib with a elevated heart rate of 102. Continue Eliquis for full anticoagulation therapy. No reported signs of bleeding. Continue digoxin daily and hold only if heart rate less than 60. We will increase metoprolol to 100 mg b.i.d.. We will bring patient back in 1 week for an EKG and a blood pressure check with the nurse. (2) CHF (congestive heart failure): Code(s): I50.9 - Heart failure, unspecified Category: Medical Qualifiers: Heart failure chronicity: acute on chronic Heart failure type: unspecified Qualified Code(s): I50.9 - Heart failure, unspecified Plan: 05/25/2025-echo study showed a normal LV systolic function with the ejection fraction between 60-65% with mild LVH, moderate biatrial enlargement, mild aortic and mitral regurgitation, upper limits of normal RV systolic pressure with mildly elevated right atrial pressures, and trivial pericardial effusion. Patient was also noted to be in heart failure in the setting of uncontrolled AFib. Patient was discharged on Jardiance and increased dose of Lasix however patient is only taking Lasix every other day. Clinically euvolemic and without any symptoms. Advised continuing this and if in case of any weight gain of greater than 2-3 lb a day or 5 lb in a week, to continue daily. Advised on low- salt diet, daily weight monitoring, and compression socks as needed for edema. Discussed in detail about med compliance and needing for good rate control in order to going into heart failure again. Discussed signs and symptoms to watch for with heart failure. Patient verbalizes understanding. (3) Hypertension: Code(s): I10 - Essential (primary) hypertension Category: Medical Plan: Blood pressure today is well-controlled. Home log of blood pressures averaging between 120- 130s systolically. Advised to continue monitoring blood pressures at home with a goal less than 130/80. (4) Hyperlipidemia: Code(s): E78.5 - Hyperlipidemia, unspecified Category: Medical Plan: No recent LDL. Continue statin therapy with an LDL goal less than 70. (5) Hospital discharge follow-up: Code(s): Z09 - Encounter for follow-up examination after completed treatment for conditions other than malignant neoplasm Plan: As above. Advised heart healthy diet, regular exercise, med compliance, and management of vascular risk factors. We will follow up in 1 month. In the interim, patient will call with any concerns or change in symptoms. Advised patient to call the office in case of any questions about medication. This note was generated using voice recognition software. While every effort has been made to ensure accuracy and proper director of casework department, there may be occasional errors that could affect the content or meaning of the described symptoms. Orders: Orders AMB EKG-In Office Today I48.0 - Paroxysmal atrial fibrillation Medications: New metoprolol succinate ER 100 mg PO BID 60 tabs 4RF Coding Level of Care Code Est Pt Level 4 (71449) Complex EM visit Add On G2211 Diagnoses Persistent atrial fibrillation I48.19 CHF (congestive heart failure) I50.9 Heart failure chronicity: acute on chronic Heart failure type: unspecified Hypertension I10 Hyperlipidemia E78.5 Hospital discharge follow-up Z09 CPT Codes EKG - CPT: 76041-[id number], Complete ([id number]) Time Spent (min) 33 Comment Time spent in reviewing the chart, test results, assessment, counseling and documentation.
[2025-07-22 15:21] VITALS: BP 124/58; PULSE 102; BMI 22.1
--- OUTSIDE RECORDS SUMMARY | 2025-07-22 18:12 | XMS_ITS | Clinical Summary ---
Author Organization [facility] Address [address] [place] [phone] Phone Care Team Providers Care Oyster Sorter Name Role Phone Pcp, Unknown Primary Care [...] Take 1,000 Units by mouth daily. Active Social History Tobacco Use Types Packs/Day Years [...] VACCINES (1 of 2) 12/05/1989 OSTEOPOROSIS SCREENING INITIAL (ONE-TIME) 12/05/2004 RSV VACCINE (1 - 1-dose 75+ series) 12/05/2014 Adult Td,Tdap Booster 05/17/2022 05/17/2012 INFLUENZA VACCINE (#1) 2025 , 07/14/2019, 06/13/2017, Additional history exists COVID-19 VACCINE ( season) 2025 09/05/2021, 05/16/2021, 04/25/2021 CREATININE LEVEL 03/30/2026 03/30/2025 [...] Date/Time Associated Diagnosis Comments COMPREHENSIVE METABOLIC PANEL (CMP) Routine 03/30/2025 5:51 AM EDT Atrial fibrillation, unspecified type Hypertension, unspecified type from Last 3 Months or Most Recently Relevant to Health Maintenance Results * (ABNORMAL) Comprehensive metabolic panel (03/30/2025 5:51 AM EDT) SODIUM 131(L) 133 - 146 mmol/L [facility] POTASSIUM 4.6 3.3 - 5.1 mmol/L [facility] CHLORIDE 92(L) 96 - 108 mmol/L [facility] CO2 30 21 - 35 mmol/L [facility] BUN 30(H) 6 - 19 mg/dL [facility] CREATININE 0.50 0.5 - 1.5 mg/dL [facility] GLUCOSE 123(H) 70 - 99 mg/dL [facility] ALBUMIN 3.3(L) 3.9 - 4.8 g/dL [facility] TOTAL PROTEIN 5.4(L) 6.5 - 8.0 g/dL [facility] CALCIUM 8.5 8.4 - 10.3 mg/dL [facility] ALKALINE PHOSPHATASE 53 39 - 117 U/L [facility] TOTAL BILIRUBIN 1.8(H) 0.0 - 1.2 mg/dL [facility] AST 14 0 - 37 U/L [facility] ALT 32 0 - 40 U/L [facility] GLOBULIN 2.1 1 - 4.8 g/dL [facility] EGFR 92 >59 mL/min/1.7 3m2 [facility] Comment:Estimated glomerular filtration rate calculated using the CKD-EPI refit equation. ANION GAP 14 10 - 20 mmol/L [facility] 03/30/2025 5:51 AM EDT 03/30/2025 10:16 AM EDT us Walt Cruz MD LAB BLOOD BKR ORDERABLES Final R esult [facility] [address] [place] [address] from Last 3 Months or Most Recently Relevant to Health Maintenance Insurance MEDICARE PART A & B [facility] MEDICARE ENHANCE SUPPLEMENT [facility] Address: [facility] [id number] [place] [id number] MEDICARE PART A & B [facility] MEDICARE ENHANCE SUPPLEMENT MEDICARE PART A & B [facility] MEDICARE ENHANCE SUPPLEMENT [facility] Address: [facility] [id number] [place] [id number] MEDICARE PART A & B [facility] MEDICARE ENHANCE SUPPLEMENT MEDICARE PART A & B [facility] MEDICARE ENHANCE SUPPLEMENT MEDICARE PART A & B [facility] MEDIC[facility] ENHANCE SUPPLEMENT Care Teams Oyster Sorter Relationship Specialty Start Date End Date Pcp, Unknown PCP - General 08/05/24 Additional Source Comments The information contained in this document represents components of the legal health record. It is not the complete legal health record.[facility]
--- OUTSIDE RECORDS SUMMARY | 2025-07-22 18:12 | XMS_ITS | Data Portability ---
Author Organization [facility], Main Office Address [address], [address] [place] [address] Care Team Providers Care Compatibility Test Engineer Name Role Phone [facility] [place] [facility] OTHER ISABELA MARQUEZ Primary Care Provider [phone] Assessment No assessment recorded. Plan of Treatment Reminders Order Date Submit Date Provider Last Modified By Organization Details Last Modified Time Details Appointments None record ed. Lab None record ed. Referral None record ed. Procedures None record ed. Surgeries None record ed. Imaging None record ed. Medication Orders None record ed. Patient TargetsNo targets recorded. Patient InstructionsNo instructions recorded. Reason for Referral None Reported. Problems Name Problem SNOMED Code Status Onset Date Resolution Date Notes Provider Name and Address Organization Details Recorded Time Recurrent falls 721854735 Active 2024 Gucci Harris [address], [address], [place], [address], [facility] 5 11:35:33 Drug-induced constipation 32752251 Active 2024 Gucci Harris [address], [address], [place], [address], [facility] 5 11:35:33 Anxiety 05221028 Active 2024 Gucci Harris [address], [address], [place], [address], [facility] 5 11:35:34 Gastroesophage al reflux disease 554759701 Active 2024 Gucci Harris [address] [facility], [address], [place], [address], [facility] 5 11:35:36 Acute hyponatremia 2727897 Active 2024 Gucci Harris [address], [address], [place], [address], [facility] 5 11:35:37 Asthenia 53481124 Active 2024 Gucci Harris [address], [address], [place], [address], [facility] 5 11:35:39 Peripheral neuropathic pain 121056451 Active 2024 Gucci Harris [address], [address], [place], [address], [facility] 5 11:35:40 Chronic low back pain 614170712 Active 2024 Gucci Harris [address], [address], [place], [address], [facility] 5 11:35:41 Multiple myeloma 337526320 Active 2024 Gucci Harris [address], [address], [place], [address], [facility] 5 11:35:43 Hyperlipidemia 44233845 Active 2024 Gucci Harris [address], [address], [place], [address], [facility] 5 11:35:45 Essential hypertension 44130954 Active 2024 Gucci Harris [address], [address], [place], [address], [facility] 5 11:35:46 Persistent atrial fibrillation 941622861 Active 2024 Gucci Harris [address], [address], [place], [address], [facility] 5 11:35:50 Problem Notes None recorded. Medical Equipment None Reported. Allergies Allergen ID Allergen Name Allergen Category Reaction Reaction Severity Criticality Documentation Date Start Date Code Code System Note Provider Name and Address Organization Details Recorded Time 29701 [facility] Not available Not available Not available 03/30/2025 5470 RxNorm Gucci Harris [address] [facility], [address], [place], [address], [email or web address] 5 10:36:02 07005 sotalol medicatio n Not available Not available Not available 03/30/2025 9947 RxNorm Gucci Harris [address] [facility], [address], [place], [address], [facility] 5 10:36:27 26313 amlodipin e medicatio n Not available Not available Not available 03/30/2025 87649 RxNorm Gucci Harris [address], [address], [place], [address], [email or web address] 5 10:36:33 79612 hydrochlo rothiazid e medicatio n Not available Not available Not available 03/30/2025 5487 RxNorm Gucci Harris [address] [facility] [facility], [address], [place], [address], [facility] 5 10:56:32 Medications Name Sig Start Date Stop Date Status Note LastModified by Organization Details LastModified Time hydromorphone 2 mg tablet Take 1 tablet every 4 hours by oral route as needed for 14 days, for pain. 2024 active Not Available Not Available Not Avai lable lorazepam 0.5 mg tablet Take 0.5mg PO daily at bedtime PRN anxiety 2024 active Not Available Not Available Not Avai lable Vitals Date Recorded Body weight Body temperature Heart rate Respiratory rate Systolic And Diastolic Provider Name and Address Organization Details Last Updated DateTime 5 36744.7 5 g 97 [degF] 84 /min 16 /min 100/67 mm[Hg] Walt Cruz MD [address] [facility] [address], [address], [place], [address], [place] [facility] 5 12:05:50 Social History Question Answer Notes LastModified by Organizat ion Details LastModified Time Tobacco Smoking Status Never Smoker Brant [address], [address], [place], [address], [facility] - [facility] 04/01/2025 09:25:48 Do You Have An Advance Directive? Yes Information not available 03/30/2025 What Is Your Code Status? Full Code Information not available 03/30/2025 Sex: Unknown Functional Status Question Answer Note LastModified by Organizat ion Details LastModified Time Do you use any illicit or recreational drugs? No Information not available 04/01/2025 What is your level of alcohol consumption? None Information not available 04/01/2025 Mental Status None recorded. Family History Nothing Reported Notes:N/C Medical History No medical history recorded. Gynecological HistoryNo gynecological history recorded. Obstetrics History GPAL:G 0 P 0 0 0 0 Past Encounters Encounter ID Performer Location Encounter Start Date Encounter Closed Date Diagnosis/Indication Diagnosis SNOMED-CT Code Diagnosis ICD10 Code Diagnosis IMO Codes Diagnosis Note [id number] [facility] [address] [place] [address] 03/30/2025 10:34:37 03/31/2025 15:55:46 Persistent atrial fibrillation 234394543 I48.19 355788 continue diltiazem 240mg qd, metoprolol 50mg BID (hold for SBP < 90, HR < 60) and eliquis 5mg BIDmonitor rate Essential hypertension 70050221 I10 19648 Continue diltiazem 240 qd with parameters , metoprolol 50mg BIDmonitor BP and labs Hyperlipidemia 45501467 E78.5 20597163 Continue simvastati n 20mg qhsmonitor lipids PRN Multiple myeloma 6962216 06 C90.00 3551956 multiple thoracic and lumbar metastatic lesions with multilevel lumbar compressio nfollows oncology with future plans for palliative radiationC ontinue prednisone taper 40mg qd x 5d, 30mg qd x 5d, 20mg qd x 5d, 10mg qd x 5dupdate onc with concerns Peripheral neuropathic pain 493633616 M79.2 42105068 Continue hydromorph one 2mg q4h PRN- monitor utilizatio n Asthenia 64162372 R53.1 23841 Admit to services PT/OT for strengthen ing, balance, gait training, safety and function.C ontinue fall precaution s.Monitor for safety. Acute hyponatremia 66803 02 E87.1 29618 multifacto rial secondary to poor po intake and SIADH from MMContinue sodium tablet 1g TID1L fluid restrictio nmonitor labs Gastroesop hageal reflux disease 511161968 K21.9 6306340034 continue omeprazole 20mg qdmonitor sxs Anxiety 37474903 F41.9 02696 continue lorazepam 0.5mg qhs PRN x 14 days and monitor utilizatio nmonitor mood and consult if needed Chronic low back pain 27 6957423 M54.50 G89.29 7075633696 secondary to progressiv e MMContinue hydromorph one 2mg q4h PRN- monitor utilizatio n, hydrocorti sone topically BID, lidocaine patch 5% qd Drug-induc ed constipation 37625497 K59.03 8840 continue senna 17.2mg qd and colace 100mg BIDmonitor bowels and titrate PRN Recurrent falls 53535046 2 R29.6 09886 Continue fall precaution s.Monitor for safety. [id number] Walt Cruz MD [place] [facility] [address] [address] 04/02/2025 12:05:16 04/06/2025 15:54:20 Asthenia 97713102 R53.1 31300 PT OT eval and treatmonit or need for increased support in community Abnormal gait 20103493 R 26.81 626535 therapy to followmoni tor fall risk Persistent atrial fibrillation 912754299 I48.19 557910 rapid a fib required cardizem drip and followed by cards remains on eliquismon itor for rate control Essential hypertension 74036696 I10 50169 monitor bp and need to titrate medication s Hyperlipidemia 97956953 E78.5 06469288 simvastati n 20 mg qdcontinue d Multiple myeloma 4775066 06 C90.00 8475397 multiple myeloma with thoracic and lumbar mets, with increasing weaknessre c is for palliative radiation however held due to elevated liver enzymescoo rdinate with oncology Peripheral neuropathic pain 119311905 M79.2 32069148 see abovemulti factorialm onitor sx relief and need to titrate medication Acute hyponatremia 24474 02 E87.1 14144 Acute on chronic hyponatrem ia with SIADH and multiple myeloma eval by nephro and started on salt tabs and fluid restrictio nupdate nephro with concerns Gastroesop hageal reflux disease 893218745 K21.9 4566390697 omeprazole 20 mg qdmonitor sx relief Drug-induc ed constipation 25743449 K59.03 8840 bowel protocolmo nitor for effect Degenerati ve lumbar spinal stenosis 204391476 M48.061 255007 severe canal stenosis at L2-3, discussed with neurosurge ry and treated with decadron 4 mg q 8coordinat e with neurosurge ry [id number] [facility] [address] [address] 04/03/2025 08:05:24 04/07/2025 08:14:36 Persistent atrial fibrillation 174283247 I48.19 008963 continue diltiazem 240mg qd, metoprolol 50mg BID (hold for SBP < 90, HR < 60) and eliquis 5mg BIDfacilit y as been out of diltiazem- rate has been uncontroll ed 80-120s Essential hypertension 42588517 I10 18975 Continue diltiazem 240 qd with parameters , metoprolol 50mg BID Hyperlipidemia 90584672 E78.5 10297601 Continue simvastati n 20mg qhsmonitor lipids outpatient Multiple myeloma 9159755 06 C90.00 4441420 multiple thoracic and lumbar metastatic lesions with multilevel lumbar compressio nfollows oncology with future plans for palliative radiationC ontinue prednisone taper 40mg qd x 5d, 30mg qd x 5d, 20mg qd x 5d, 10mg qd x 5df/u Onc as planned Chronic low back pain 27 8781163 M54.50 G89.29 2677722557 secondary to progressiv e MMContinue hydromorph one 2mg q4h PRN- monitor utilizatio n, hydorcorti sone topically BID, lidocaine patch 5% qd Peripheral neuropathic pain 547213365 M79.2 19343525 Continue hydromorph one 2mg q4h PRN Asthenia 72901549 R53.1 04183 Particpate d in PT/OT for strengthen ing, balance, gait training, safety and function. Acute hyponatremia 31576 02 E87.1 37997 multifacto rial secondary to poor po intake and SIADH from MMmost recent NA 131Continu e sodium tablet 1g TID1L fluid restrictio nf/u outpatient for lab monitoring Gastroesop hageal reflux disease 292897384 K21.9 2753398113 continue omeprazole 20mg qd Anxiety 55834388 F41.9 09072 continue lorazepam 0.5mg qhs PRN Drug-induc ed constipation 61433820 K59.03 8840 continue senna 17.2mg qd and colace 100mg BIDRecent large BM Recurrent falls 43744997 2 R29.6 43946 04/02 lowering herself to the floor while trying to standno apparent injuries but some buttock pain relieved with pain medication sContinue fall precaution s.Monitor for safety. Dysuria 83621766 R30.0 28224 with suprapubic discomfort today 04/03Would recommend facility obtain UA with reflex Productive cough 3193556 5 R05.8 847994 with scattered rhonchino dyspnea or hypoxiacon export freight specialist CXR if cough persists Health Concerns Section Related Observation LastModified by Organization Detai ls LastModified Time None Recorded Concern Status LastModified by Organization Details LastModified Time None Recorded Advance Directives Directive Y: Payers Insurance Date Sequence Insurance Name Policy Number Policy Hernandez Covered Member ID Hernandez Member ID Guarantor Name 04/06/2025 2 [facility] (MEDICARE SUPPLEMENT) Yesenia Fisher [id number] Yesenia Fisher 03/31/2025 1 [place]: [employer] Yesenia Fisher [id number] Yesenia Fisher Notes Date Note Type Note Provider Name and Address Organization Details Recorded Time 03/30/20 25 text/htm l Patient is an 84 yo female who presents for initial intake visit PM afib on eliquis, HLD, peripheral neuropathy, HTN and MM with multiple thoracic and lumbar metastatic lesions with multilevel lumbar compression Presented to [facility] due to difficulty ambulating, RLE weakness and ? R foot drop and fall. She follows onc, who adjusted morphine regimen recently due to severe leg pain. She was advised to go to ED for hyponatremia and pain. She was supposed to have palliative radiation treatment but currently on hold due to elevated LFTs. MRI lumbar spine progressive T12 compression fx with 2mm increased height loss compared to prior and severe spinal canal stenosis at L2-L3 and other multilevel degenerative changes similar to prior imaging. Neurosurgery consulted with recs for conservative management with steroids. She was treated with IV decadron and transitioned to prednisone taper. She was started on salt tablets and sodium restriction. 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 Improved to 130 on repeat labs She required cardizem drip for difficult to control RVR and transitioned to oral cardizem and metoprolol. Continued with tachycardia but improved. She is maintained on eliquis Urine culture mixed contamination, abx were d/c'dLFTS trending down, statin currently on hold- recs to resume once normalized She was evaluated by therapy with recs for rehab and discharged to [facility] on 03[facility]25 for STR/PT/OT RITA 65MOLST FULL CODE Cayla_Tra Sorensen [address] [facility] [facility], [address], [place], [address], [facility] 03/30/2025 11:36:18 04/02/20 25 text/htm l Patient is an 84 yo female admit from hospital after presenting with known multiple myeloma with thoracic and lumbar mets, with increasing weakness, right foot drop and fall unable to get off ground. Of note patient was to start palliative rad tx however on hold due to elevated LFTs. Imaging positive for progressive T12 comp fx and severe canal stenosis at L2-3, discussed with neurosurgery and started on decadron 4 mg q 8. Noted UTI felt to be contaminated. Acute on chronic hyponatremia with SIADH and multiple myeloma eval by nephro and started on salt tabs and fluid restriction. Noted rapid a fib required cardizem drip and followed by cards remains on eliquis. Not felt safe to return home at that time PMH is significant formultiple myeloma with metastatic spreadspinal stenosis severe L-2-3t12 comp fxa fib on eliquissiadhhldhtnperipheral neuropathygait instability admit to facility for continue care and therapy eval and treat Walt Cruz MD [address] [place] [address], [address], [place], [address], [place] [email or web address] 04/02/2025 12:35:31 04/03/20 25 text/htm l Patient is an 84 yo female who presents for discharge summary PMH afib on eliquis, HLD, peripheral neuropathy, HTN and MM with multiple thoracic and lumbar metastatic lesions with multilevel lumbar compression Presented to [facility] due to difficulty ambulating, RLE weakness and ? R foot drop and fall. She follows onc, who adjusted morphine regimen recently due to severe leg pain. She was advised to go to ED for hyponatremia and pain. She was supposed to have palliative radiation treatment but currently on hold due to elevated LFTs. MRI lumbar spine progressive T12 compression fx with 2mm increased height loss compared to prior and severe spinal canal stenosis at L2-L3 and other multilevel degenerative changes similar to prior imaging. Neurosurgery consulted with recs for conservative management with steroids. She was treated with IV decadron and transitioned to prednisone taper. She was started on salt tablets and sodium restriction. 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 Improved to 130 on repeat labs She required cardizem drip for difficult to control RVR and transitioned to oral cardizem and metoprolol. Continued with tachycardia but improved. She is maintained on eliquis Urine culture mixed contamination, abx were d/c'dLFTS trending down, statin currently on hold- recs to resume once normalized She was evaluated by therapy with recs for rehab and discharged to [facility] for STR/PT/OT. She actively participated in therapy. Ambulating 25ft with 2WW. She was noted with an acute productive cough and evaluated by CANTEEN MANAGER. No swallowing dysfunction on exam and recs for normal consistency diet. She has productive cough but denies URI sxs, dyspnea or increase in LE edema. Lungs with scattered rhonchi- would recommend possible CXR if cough persists Today she endorses dysuria and suprapubic discomfort. During hospitalization urine culture was contaminated- would recommend facility obtain UA with reflex for possible UTI Overnight, nursing reported she slid herself from the chair to the floor while trying to stand. No injuries but she does report discomfort to her buttocks but feels okay now that she has taken something for pain She was started on Cardizem for difficult to control afib. Rate 80-120s. Cardizem has been on order and she has not received while at facility. She is also taking metoprolol and received dose this morning. RECS obtain UA with reflex for dysuria/suprapubic discomfort and CXR if productive cough persists She is otherwise medically stable and okay to discharge to [facility] with meds and services A_Tra Sorensen [address] [place] [address], [address], [place], [address], [facility] 04/03/2025 09:51:51 OBGyn Episode No OBEpisode recorded.
--- OUTSIDE RECORDS SUMMARY | 2025-07-22 18:12 | XMS_ITS | Encounter Summary ---
Author Organization [facility] Address [address] [place] [address] Phone Care Team Providers Care Emulsification Operator Name Role Phone Pcp, Unknown Primary Care Provider Unavailabl e Encounter Details Date Type Department Care Team (Late st Contact Info) Description 10/01/2024 Procedure Pass [facility]oscopy Admitting Dept Virtual Department [address] [place] [address] Social History Tobacco Use Types Packs/Day Years [...] on filedocumented in this encounter Care Teams Emulsification Operator Relationship Specialty Start Date End Date Pcp, Unknown PCP - General 08/05/24 documented as of this encounter Additional Source Comments The information contained in this document represents components of the legal health record. It is not the complete legal health record.[facility]
--- OUTSIDE RECORDS SUMMARY | 2025-07-22 18:12 | XMS_ITS | Patient Health Record ---
Author Organization [facility] Address [address] [facility] [place] [place] [address] Care Team Providers Care Concrete Wall Grinder Operator Name Role Phone Owen VIEYRA, Ora Primary Care Provider Unavailab Karol Yanes Unavailable [phone] Reason For Referral No Information Medications Medication [...] Treatment Pending Test Test Name Order Date [id number] TENDON SHEATH/LIGAMENT 0 11/27/2019 Insurance Providers Payer Name Payer Address Payer Phone Subscriber Number Group Number Insured Name Patient Relationship to Insured Coverage Start Date Coverage End Date Medicare [facility] [employer] [address] [place] [address] [phone] [id number] Yesenia Fisher Self - patient is the insured [facility] [address] [place] [address] [id number] Yesenia Fisher Self - patient is the insured Medical (General) History Medical History History ICD Code Reflux Measles breast cancer Mumps Surgical History Surgery Date(Month/Year) cancer surgery 07/1992 varicose vein stripping 1974 hysterectomy 1989
== END 2025-07-22 16:11 | disposition home or self-care (01) ==
LOC: HO.HCS 15:14
PROVIDERS: PCP Internal Medicine
DX: I48.19 Other persistent atrial fibrillation (principal); I50.9 Heart failure, unspecified; I10 Essential (primary) hypertension; E78.5 Hyperlipidemia, unspecified; Z09 Encounter for follow-up examination after completed treatment for conditions other than malignant neoplasm
CPT/HCPCS: 93010; 99214; G2211

== ENCOUNTER → 2025-07-22 15:13 | Outpatient (BNVA) | payer MEDICARE, OTHER, SELFPAY | PROVIDERS: PCP Internal Medicine | DX: I48.19 Other persistent atrial fibrillation (principal); I50.9 Heart failure, unspecified; I11.0 Hypertensive heart disease with heart failure; E78.5 Hyperlipidemia, unspecified; Z09 Encounter for follow-up examination after completed treatment for conditions other than malignant neoplasm | CPT/HCPCS: 93005; 99212 ==

== ENCOUNTER 2025-07-28 11:44 | Inpatient (IN) | payer MEDICARE, OTHER, SELFPAY ==
--- NOTE | 2025-07-28 | ECG_ITS ---
Test Reason : ABD PAIN Blood Pressure : */* mmHG Vent. Rate : 87 BPM Atrial Rate : * BPM P-R Int : * ms QRS Dur : 140 ms QT Int : 382 ms P-R-T Axes : * -10 -59 degrees QTcB Int : 459 ms Atrial fibrillation with premature ventricular or aberrantly conducted complexes Right bundle branch block T wave abnormality, consider lateral ischemia Abnormal ECG When compared with ECG of 23-May-2025 01:24, QT has shortened Referred By: Generic ED Physician Electronically Signed By: BINDU ALVA MD
--- NOTE | ~2025-07-28 | CT_ITS ---
EXAMINATION: CT ABDOMEN PELVIS WITH IV CONTRAST HISTORY: f/u diverticular abscess COMPARISON: Reji is made with the prior examination dated 08/02/2025. TECHNIQUE: CT scan of the abdomen and pelvis was performed following administration of 85 mL Omnipaque 350 using standard departmental protocol. Coronal and sagittal reformatted images were generated and reviewed. The patient received oral contrast material. This CT exam was performed with one or more of the following dose reduction techniques: automated exposure control, adjustment of the mA and/or kV according to patient size, use of iterative reconstruction technique. DLP: 330 mGy-cm FINDINGS: LOWER CHEST: There is a small right pleural effusion with adjacent subsegmental atelectasis. There is a trace left pleural effusion. CARDIOVASCULATURE: The heart is normal in size. There is no pericardial effusion. LIVER: The liver is normal in size and contour. There is heterogeneous enhancement of the liver. No liver mass is identified. The hepatic and portal veins are patent. GALLBLADDER / BILE DUCTS: The gallbladder is unremarkable. There is no intra or extrahepatic biliary ductal dilatation. SPLEEN: The spleen is normal in size. No focal splenic lesion is identified. PANCREAS: The pancreas is unremarkable in appearance. ADRENAL GLANDS: Within normal limits. KIDNEYS/RETROPERITONEUM: No renal calculi are identified. There is no hydronephrosis. There is a 3.0 cm cyst at the lower pole of the left kidney. LYMPH NODES: No abdominal or pelvic lymphadenopathy. VASCULATURE: The abdominal aorta demonstrates atherosclerotic calcification, but is normal in caliber. MESENTERY/PERITONEUM: No free fluid. No masses. There is no free intraperitoneal gas. STOMACH: The stomach is collapsed, limiting evaluation. SMALL BOWEL: There is mild dilatation of distal small bowel loops. COLON: There is diffuse marked dilatation of the ascending, transverse, and descending colon, consistent with obstruction. There is marked wall thickening of the sigmoid colon. There is associated diverticulosis without significant pericolonic inflammatory changes. Again seen is a rim-enhancing fluid collection between the bladder and the sigmoid colon measuring 2.9 x 1.8 x 1.8 cm, similar in size to the prior study. APPENDIX: The appendix is not seen, however no inflammatory changes are seen adjacent to the cecum. URINARY BLADDER/PELVIC ORGANS: The urinary bladder is collapsed, limiting evaluation. The uterus is surgically absent. BONES / SOFT TISSUES: The bones are osteopenic. Again seen are widespread lytic lesions consistent with metastatic disease or multiple myeloma. CT/CT abdomen pelvis w IV con IMPRESSION: 1. Persistent marked wall thickening of the sigmoid colon resulting in colonic obstruction. Neoplasm is not excluded. 2. 2.9 x 1.8 x 1.8 cm rim-enhancing fluid collection between the urinary bladder and the sigmoid colon compatible with an abscess without significant change. 3. Small right pleural effusion. 4. Diffuse lytic lesions in the visualized osseous structures compatible with metastatic disease or myeloma. 5. Findings were sent to Char Durand by secure text message on 08/06/2025 at 10:44 AM. Electronically signed by: Jae Parry MD 08/06/2025 10:48 AM [facility]
--- NOTE | ~2025-07-28 | CT_ITS ---
EXAMINATION: CT ABDOMEN PELVIS WITH IV CONTRAST HISTORY: abd pain, hx of melanoma COMPARISON: Previous CT scan of the abdomen and pelvis November 2024 and MR of the thoracic and lumbar spine November 2024 TECHNIQUE: CT scan of the abdomen and pelvis was performed following administration of 85 mL Omnipaque 350 using standard departmental protocol. Coronal and sagittal reformatted images were generated and reviewed. This CT exam was performed with one or more of the following dose reduction techniques: automated exposure control, adjustment of the mA and/or kV according to patient size, use of iterative reconstruction technique. DLP: 350 mGy-cm FINDINGS: LOWER CHEST: The visualized lung bases are clear. There are small right and tiny left pleural effusions. CARDIOVASCULATURE: Enlarged heart. Small pericardial effusion. LIVER: Decreased attenuation suggestive of fatty infiltration. No liver mass is identified. The hepatic and portal veins are patent. GALLBLADDER / BILE DUCTS: The gallbladder is unremarkable. There is no intra or extrahepatic biliary ductal dilatation. SPLEEN: The spleen is normal in size. No focal splenic lesion is identified. PANCREAS: The pancreas is unremarkable in appearance. ADRENAL GLANDS: Within normal limits. KIDNEYS/RETROPERITONEUM: No renal calculi are identified. There is no hydronephrosis. Bilateral low-attenuation renal lesions probably representing cysts. Largest measures 3.5 cm in the lower pole of the left kidney. No renal masses are identified. LYMPH NODES: No abdominal or pelvic lymphadenopathy. VASCULATURE: Severe atherosclerotic disease. No aneurysm. MESENTERY/PERITONEUM: No free fluid. No masses. There is no free intraperitoneal gas. STOMACH: Underdistended SMALL BOWEL: The small bowel is normal in caliber. COLON: Diverticulosis of the colon. There is wall thickening and wall edema of the distal left and sigmoid colon suggestive of diverticulitis or colitis. There is a small 2.5 cm collection adjacent to the anterior wall of the sigmoid colon and posterior dome of the bladder questionable for small abscess. There is adjacent wall thickening of the bladder. There MASHA tiny amount of air in the bladder for example axial image 574 series 4 and appearance is concerning for colovesicular fistula. APPENDIX: Normal. URINARY BLADDER/PELVIC ORGANS: Abscess or impending colovesicular fistula and focal bladder wall thickening adjacent to the sigmoid colon and posterior dome of the bladder described above. Uterus not definitely seen and may have been removed. Increased soft tissue in the left adnexal region for example axial image 61 series 3. This could represent a small abscess as well. There 8mm calcification axial image 62 series 3 that is unchanged. Right adnexa is unremarkable. BONES / SOFT TISSUES: Severe bone demineralization. Similar appearing partially visualized lytic lesion in the left posterior T9 vertebral body and lamina. Similar lytic lesion in the left iliac crest. May be other smaller lytic lesions in the pelvis unchanged. Interval increase in moderate to severe T12 vertebral body compression fracture. Mild L1-L3 vertebral body compression fractures not appreciably changed. Small umbilical hernia containing fat. CT/CT abdomen pelvis w IV con IMPRESSION: Diverticulitis or colitis of the sigmoid colon. 2.5 cm collection adjacent to the anterior sigmoid colon and posterior dome of the bladder suggestive of abscess or impending colovesicular fistula. There is adjacent wall thickening of the dome of the bladder and tiny amount of air in the bladder. There may also be involvement of the left adnexa. No free air. Fatty liver. Bilateral renal cysts. Severe demineralization. Partially visualized but similar-appearing lytic lesion in the T9 vertebral body and left iliac crest. Increased moderate to severe T12 vertebral body compression fracture that may be recent. Mild L1-L3 vertebral body compression fractures not appreciably changed. Electronically signed by: Gris Jack MD 07/28/2025 04:50 PM [facility]
--- NOTE | ~2025-07-28 | CT_ITS ---
CLINICAL HISTORY: po and iv conrast -diverticular abcess Exam: CT abdomen and pelvis with IV contrast Comparison: CT/REG/NM/SR - CT ABDOMEN PELVIS WITH IV CONTRAST - 07/28/25 16:16 EST Findings: Small right greater than left pleural effusion with associated compressive atelectasis, progressed. Cardiomegaly, similar to prior. Suboptimal early portal venous phase imaging, resulting in suboptimal enhancement of the abdominal organs, the abdominopelvic venous system is not adequately opacified, some are not opacified, others demonstrate heterogeneous attenuation, probably contrast mixing artifacts, patency can not be evaluated and thrombus can not be excluded. Liver, spleen, pancreas, adrenal glands, right kidney are unremarkable. Stable left renal cyst of the lower pole and too small to characterize hypodensities of the bilateral kidneys. Dilated gallbladder, no radiopaque stone. Mild periportal edema is new. Underdistended urinary bladder with diffuse mural thickening, similar to prior. Status post hysterectomy, unremarkable adnexa. Persistent mural thickening of sigmoid in the left pelvis, the thickened sigmoid segment is underdistended and not well visualized due to suboptimal contrast enhancement, background diverticula noted, the diverticulum near left adnexa appears mildly thickened. The upstream colon is prominent in caliber but not dilated by CT criteria, and contains moderate amount of inspissated stool, there is mild mural thickening of the upstream sigmoid in the left lower quadrant with mild adjacent fatty stranding. Progressive downstream diffuse mural thickening of the rectum to anorectal junction, mesorectal fatty stranding noted, rectum is nearly decompressed. Previously seen rim enhancing hypodensity situated between the bladder and sigmoid persists, 1.9 x 2.6 x 2.0 cm, no substantial change in size. Mild fatty stranding in the right lower quadrant near cecum and appendix is unchanged, appendix is normal in caliber. Stomach and small bowel are unremarkable. Atherosclerotic disease, nonaneurysmal aorta. No ascites or pneumoperitoneum. Unchanged diffuse osseous demineralization. Stable destructive osteolytic lesion of the left iliac crest, L5 transverse processes bilaterally, T9 vertebral body extending to the posterior element on the left unchanged multilevel compression fracture of the imaged thoracolumbar spine. Impression: 1. Persistent sigmoiditis or sigmoid diverticulitis without substantial change, neoplastic process is not excluded. The upstream colon becomes more distended with inspissated stool and the immediate upstream sigmoid demonstrates new mild wall thickening, concerning for some degree of functional obstruction and new stercoral sigmoiditis proximally. 2. Progressive diffuse rectal wall thickening, consistent with acute proctitis. 3. Stable suspected abscess between the bladder and sigmoid, unchanged non-specific diffuse bladder wall thickening. 4. Unchanged osteolytic lesions of the left iliac crest, L5 transverse processes, T9 vertebral body and posterior element, consistent with metastasis. Additional smaller osteolytic lesions are difficult to exclude due to background diffuse osseous demineralization. 5. Unchanged multilevel compression fracture of the thoracolumbar vertebrae. 6. Mildly progressive small right greater than left pleural effusion with associated compressive atelectasis. 7. New mild periportal edema. 6. Additional stable chronic findings. This document has been electronically signed by: Nancy Bone MD on 08/02/2025 15:50:11
[2025-07-28 11:56] VITALS: BP 147/97; BP 166/93; PULSE 74; PULSE 87; RESP 18; TEMP 36.6; O2SAT 98; BMI 21.8
[2025-07-28 12:17] LABS: Hematocrit 37.5 % (37.0-47.0); Hemoglobin 12.6 g/dl (12.0-16.0); Imm Gran Abs Auto 0.04 X10*3/uL (0.00-0.03); Imm Gran Pct Auto 0.6 % (0.0-0.4); Lymphocytes Absolute Auto 0.8 X10*3/uL (1.2-4.9); Mean Corpuscular HGB Conc 33.6 g/dl (31.0-35.0); Mean Corpuscular Hemoglobin 31.2 pg (27.0-33.0); Mean Corpuscular Volume 92.8 fL (80.0-98.0); NRBC Abs Auto 0.030 X10*3/uL (0.0-0.012); NRBC Pct Auto 0.4 /100WBC (0.0-0.2); Red Blood Count 4.04 X10*6/uL (4.20-5.50); White Blood Count 7.2 X10*3/uL (4.8-10.8)
[2025-07-28 12:22] LABS: MANUAL DIFF FLAG SCAN
[2025-07-28 12:29] LABS: Anion Gap 10 (12-20); Blood Urea Nitrogen 12 mg/dL (9-16); Calcium 8.8 mg/dL (8.4-10.2); Carbon Dioxide 27 mmol/L (22-29); Chloride 97 mmol/L (96-108); Creatinine Clr Calc Pharmacy 63.1; Estimated Glomerular Filt Rate > 60; Potassium 4.0 mmol/L (3.3-5.1); Sodium 130 mmol/L (135-145)
[2025-07-28 12:40] LABS: Troponin-I High Sensitivity 9.8 ng/L (<3.5-17.0)
[2025-07-28 12:56] LABS: INTERNATIONAL NORM RATIO 1.9 (0.9-1.1); Prothrombin Time 23.3 SEC (11.2-13.5)
[2025-07-28 13:27] LABS: Platelet Count 89 X10*3/uL (160-400)
--- OUTSIDE RECORDS SUMMARY | 2025-07-28 14:32 | XMS_ITS | Encounter Summary ---
Author Organization Mari [facility] Address [address] [place] [address] Care Team Providers Care Lead Electrical Engineer Name Role Phone Mario Berrios MD Primary Care Provider [phone] Encounter Details Date Type Department Care Team (Late st Contact Info) Description 04/08/2025 Lab Requisition [facility] - Main Lab [address] [facility] [place] [address] Mario Berrios MD [address] [place] [address] [phone] Essential (primary) hypertension Social History Tobacco Use [...] AM EDT) WBC 10.1 4.8 - 10.8 K/[facility] LAB HEMETOLOGY METHOD 04/09/2025 11:39 AM EDT [facility] LAB RBC 3.90 3.80 - 4.80 M/[facility] LAB HEMETOLOGY METHOD 04/09/2025 11:39 AM EDT [facility] LAB Hemoglobin 11.9 11.5 - 16.0 g/dL LAB HEMETOLOGY METHOD 04/09/2025 11:39 AM [facility] LAB Hematocrit 37.5 35.0 - 47.0 % LAB HEMETOLOGY METHOD 04/09/2025 11:39 AM [facility] LAB MCV 95.4 79.0 - 98.0 FL LAB HEMETOLOGY METHOD 04/09/2025 11:39 AM [facility] LAB MCH 30.3 27.0 - 32.0 pcg LAB HEMETOLOGY METHOD 04/09/2025 11:39 AM [facility] LAB MCHC 31.7(L) 32.0 - 37.0 g/dL LAB HEMETOLOGY METHOD 04/09/2025 11:39 AM [facility] LAB RDW 15.8(H) 11.0 - 15.0 % LAB HEMETOLOGY METHOD 04/09/2025 11:39 AM [facility] LAB Platelets 127(L) 130 - 400 K/mcL LAB HEMETOLOGY METHOD 04/09/2025 11:39 AM [facility] LAB MPV 11.8(H) 7.0 - 11.0 FL LAB HEMETOLOGY METHOD 04/09/2025 11:39 AM [facility] LAB NRBC 0.0 <1.0 % LAB HEMETOLOGY METHOD 04/09/2025 11:39 AM [facility] LAB NRBC Absolute 0.00 <0.10 K/mcL LAB HEMETOLOGY METHOD 04/09/2025 11:39 AM [facility] LAB Blood Venous blood specimen / Unknown Venipuncture / Unknown 04/09/2025 5:47 AM EDT 04/09/2025 11:23 AM EDT Mario Berrios MD LAB BLOOD ORDERABLES Final Resu lt [facility] LAB [address] [place] [address], [place] [phone] * (ABNORMAL) Basic metabolic panel (04/09/2025 5:47 AM EDT) Sodium 133 133 - 145 mmol/L LAB CHEMISTRY METHOD 04/09/2025 12:06 PM [facility] LAB Potassium 4.9 3.5 - 5.5 mmol/L LAB CHEMISTRY METHOD 04/09/2025 12:06 PM [facility] LAB Comment:Hemolysis present Chloride 101 96 - 110 mmol/L LAB CHEMISTRY METHOD 04/09/2025 12:06 PM [facility] LAB CO2 26 21 - 32 mmol/L LAB CHEMISTRY METHOD 04/09/2025 12:06 PM [facility] LAB Anion Gap 6 3 - 11 LAB CHEMISTRY METHOD 04/09/2025 12:06 PM [facility] LAB Glucose 97 70 - 100 mg/dL LAB CHEMISTRY METHOD 04/09/2025 12:06 PM [facility] BUN 17 5 - 25 mg/dL LAB CHEMISTRY METHOD 04/09/2025 12:06 PM [facility] LAB Creatinine 0.61 0.50 - 1.10 mg/dL LAB CHEMISTRY METHOD 04/09/2025 12:06 PM [facility] LAB eGFR 88 >=60 mL/min/1. 73m2 LAB CHEMISTRY METHOD 04/09/2025 12:06 PM [facility] Comment:Calculation based on the Chronic Kidney Disease Epidemiology Collaboration (CKD-EPI) equation refit without adjustment for race. BUN/Creatinine Ratio 27.9 LAB CHEMISTRY METHOD 04/09/2025 12:06 PM [facility] Calcium 8.0(L) 8.5 - 10.5 mg/dL LAB CHEMISTRY METHOD 04/09/2025 12:06 PM EDT [facility] Blood Venous blood specimen / Unknown Venipuncture / Unknown 04/09/2025 5:47 AM EDT 04/09/2025 11:23 AM EDT Mario Berrios MD LAB BLOOD ORDERABLES Final Resu lt [facility] ([facility]) [facility] [address] [place] [address], documented in this encounter Visit Diagnoses Diagnosis Essential (primary) hypertension Unspecified essential hypertension documented in this encounter Care Teams Lead Electrical Engineer Relationship Specialty Start Date End Date Mario Berrios MD [address] [place] [phone] PCP - General Internal Medicine 04/04/25 documented as of this encounter
--- OUTSIDE RECORDS SUMMARY | 2025-07-28 14:32 | XMS_ITS | Clinical Summary ---
Author Organization Formerly [facility] Address [address] [facility] [address] [place] [phone] Phone Care Team Providers Care Vending Route Servicer Name Role Phone Pcp, Unknown Primary Care [...] patient's age to complete this topic IPV VACCINES Aged Out No longer eligi ble [...] EDT) SODIUM 131(L) 133 - 146 mmol/L [facility] POTASSIUM 4.6 3.3 - 5.1 mmol/L [facility] CHLORIDE 92(L) 96 - 108 mmol/L [facility] CO2 30 21 - 35 mmol/L [facility] BUN 30(H) 6 - 19 mg/dL [facility] CREATININE 0.50 0.5 - 1.5 mg/dL [facility] GLUCOSE 123(H) 70 - 99 mg/dL [facility] ALBUMIN 3.3(L) 3.9 - 4.8 g/dL [facility] TOTAL PROTEIN 5.4(L) 6.5 - 8.0 g/dL [facility] CALCIUM 8.5 8.4 - 10.3 mg/dL [facility] ALKALINE PHOSPHATASE 53 39 - 117 U/L [facility] TOTAL BILIRUBIN 1.8(H) 0.0 - 1.2 mg/dL [facility] AST 14 0 - 37 U/L [facility] ALT 32 0 - 40 U/L [facility] GLOBULIN 2.1 1 - 4.8 g/dL [facility] EGFR 92 >59 mL/min/1.7 3m2 [facility] Comment:Estimated glomerular filtration rate calculated using the CKD-EPI refit equation. ANION GAP 14 10 - 20 mmol/L [facility] 03/30/2025 5:51 AM EDT 03/30/2025 10:16 AM EDT us Walt Cruz MD LAB BLOOD BKR ORDERABLES Final R esult [facility] [address] [place] [address] from Last 3 Months or Most Recently Relevant to Health Maintenance Insurance MEDICARE PART A & B [facility] MEDICARE ENHANCE SUPPLEMENT MEDICARE PART A & B [facility] MEDICARE ENHANCE SUPPLEMENT MEDICARE PART A & B MEDICARE ENHANCE SUPPLEMENT [facility] Address: [facility] [id number] [place] [place] [address] MEDICARE PART A & B Member Subscriber Plan / Payer (Ef fective 2006-Present) Name:Yesenia Fisher Member ID:[id number] Relation to Subscriber:Self Name:Phillip Yesenia Subscriber ID:[id number] Payer ID:[id number] Group ID:Not on file Type:Medicare Address: [employer] [address] [facility] MEDICARE ENHANCE SUPPLEMENT [facility] Address: [address] [place] [address] MEDICARE PART A & B [facility] MEDICARE ENHANCE SUPPLEMENT [facility] Address: [address] [place] [address] MEDICARE PART A & B [facility] MEDICARE ENHANCE SUPPLEMENT Care Teams Vending Route Servicer Relationship Specialty Start Date End Date Pcp, Unknown PCP - General 08/05/24 Additional Source Comments The information contained in this document represents components of the legal health record. It is not the complete legal health record.[facility]
--- OUTSIDE RECORDS SUMMARY | 2025-07-28 14:32 | XMS_ITS | Encounter Summary ---
Author Organization Mari [facility] Address [address] [place] [address] Care Team Providers Care Bull Float Finisher Name Role Phone Mario Berrios MD Primary Care Provider [phone] Encounter Details Date Type Department Care Team (Late st Contact Info) Description 04/15/2025 Lab Requisition [facility] - Main Lab [address] [facility] [place] [address] Mario Berrios MD [address] [place] [phone] Essential (primary) hypertension Social History Tobacco Use [...] AM EDT) WBC 8.9 4.8 - 10.8 K/[facility] LAB HEMETOLOGY METHOD 04/16/2025 9:51 AM EDT [facility] RBC 4.30 3.80 - 4.80 M/[facility] LAB HEMETOLOGY METHOD 04/16/2025 9:51 AM EDT [facility] LAB Hemoglobin 13.5 11.5 - 16.0 g/dL LAB HEMETOLOGY METHOD 04/16/2025 9:51 AM EDT [facility] LAB Hematocrit 40.4 35.0 - 47.0 % LAB HEMETOLOGY METHOD 04/16/2025 9:51 AM EDT [facility] LAB MCV 93.5 79.0 - 98.0 FL LAB HEMETOLOGY METHOD 04/16/2025 9:51 AM EDT [facility] LAB MCH 31.3 27.0 - 32.0 pcg LAB HEMETOLOGY METHOD 04/16/2025 9:51 AM EDT [facility] LAB MCHC 33.4 32.0 - 37.0 g/dL LAB HEMETOLOGY METHOD [facility] RDW 16.6(H) 11.0 - 15.0 % LAB HEMETOLOGY METHOD 04/16/2025 9:51 AM EDT [facility] LAB Platelets 159 130 - 400 K/mcL LAB HEMETOLOGY METHOD 04/16/2025 9:51 AM EDT [facility] LAB MPV 11.7(H) 7.0 - 11.0 FL LAB HEMETOLOGY METHOD 04/16/2025 9:51 AM EDT [facility] LAB NRBC 0.0 <1.0 % LAB HEMETOLOGY METHOD 04/16/2025 9:51 AM EDT [facility] LAB NRBC Absolute 0.00 <0.10 K/mcL LAB HEMETOLOGY METHOD 04/16/2025 9:51 AM EDT [facility] LAB Blood Venous blood specimen / Unknown Venipuncture / Unknown 04/16/2025 6:36 AM EDT 04/16/2025 9:27 AM EDT us Mario Berrios MD LAB BLOOD ORDERABLES Final Resu lt [facility] [address] [place] [address], * (ABNORMAL) Basic metabolic panel (04/16/2025 6:36 AM EDT) Sodium 134 133 - 145 mmol/L LAB CHEMISTRY METHOD 04/16/2025 10:16 AM [facility] Potassium 3.8 3.5 - 5.5 mmol/L LAB CHEMISTRY METHOD 04/16/2025 10:16 AM T [facility] Chloride 98 96 - 110 mmol/L LAB CHEMISTRY METHOD 04/16/2025 10:16 AM [facility] LAB CO2 26 21 - 32 mmol/L LAB CHEMISTRY METHOD 04/16/2025 10:16 AM [facility] LAB Anion Gap 10 3 - 11 LAB CHEMISTRY METHOD 04/16/2025 10:16 AM [facility] LAB Glucose 129(H) 70 - 100 mg/dL LAB CHEMISTRY METHOD 04/16/2025 10:16 AM [facility] BUN 15 5 - 25 mg/dL LAB CHEMISTRY METHOD 04/16/2025 10:16 AM [facility] LAB Creatinine 0.65 0.50 - 1.10 mg/dL LAB CHEMISTRY METHOD 04/16/2025 10:16 AM [facility] LAB eGFR 86 >=60 mL/min/1. 73m2 LAB CHEMISTRY METHOD 04/16/2025 10:16 AM [facility] LAB Comment:Calculation based on the Chronic Kidney Disease Epidemiology Collaboration (CKD-EPI) equation refit without adjustment for race. BUN/Creatinine Ratio 23.1 LAB CHEMISTRY METHOD 04/16/2025 10:16 AM [facility] LAB Calcium 8.5 8.5 - 10.5 mg/dL LAB CHEMISTRY METHOD 04/16/2025 10:16 AM [facility] LAB Blood Venous blood specimen / Unknown Venipuncture / Unknown 04/16/2025 6:36 AM EDT 04/16/2025 9:26 AM EDT Mario Berrios MD LAB BLOOD ORDERABLES Final Resu lt [facility] ([facility]) [facility] [address] [place] [address], documented in this encounter Visit Diagnoses Diagnosis Essential (primary) hypertension Unspecified essential hypertension documented in this encounter Care Teams Bull Float Finisher Relationship Specialty Start Date End Date Mario Berrios MD [address] [place] [address] PCP - General Internal Medicine 04/04/25 documented as of this encounter
--- OUTSIDE RECORDS SUMMARY | 2025-07-28 14:32 | XMS_ITS | Encounter Summary ---
Author Organization Mari [facility] Address [address] [place] [address] Care Team Providers Care Base Filler Name Role Phone Mario Berrios MD Primary Care Provider [phone] Encounter Details Date Type Department Care Team (Late st Contact Info) Description 04/04/2025 Lab Requisition [facility] - Main Lab [address] [place] [address] Mario Berrios MD [address] [place] [address] [phone] Essential (primary) hypertension Social History Tobacco Use [...] LAB CHEMISTRY METHOD 04/04/2025 1:38 PM EDT [facility] LAB Potassium 5.0 3.5 - 5.5 mmol/L LAB CHEMISTRY METHOD 04/04/2025 1:38 PM EDT [facility] LAB Chloride 94(L) 96 - 110 mmol/L LAB CHEMISTRY METHOD 04/04/2025 1:38 PM [facility] LAB CO2 31 21 - 32 mmol/L LAB CHEMISTRY METHOD 04/04/2025 1:38 PM [facility] LAB Anion Gap 8 3 - 11 LAB CHEMISTRY METHOD 04/04/2025 1:38 PM [facility] LAB Glucose 122(H) 70 - 100 mg/dL LAB CHEMISTRY METHOD 04/04/2025 1:38 PM [facility] LAB BUN 21 5 - 25 mg/dL LAB CHEMISTRY METHOD 04/04/2025 1:38 PM [facility] LAB Creatinine 0.62 0.50 - 1.10 mg/dL LAB CHEMISTRY METHOD 04/04/2025 1:38 PM [facility] LAB eGFR 87 >=60 mL/min/1. 73m2 LAB CHEMISTRY METHOD 04/04/2025 1:38 PM [facility] LAB Comment:Calculation based on the Chronic Kidney Disease Epidemiology Collaboration (CKD-EPI) equation refit without adjustment for race. BUN/Creatinine Ratio 33.9 LAB CHEMISTRY METHOD 04/04/2025 1:38 PM [facility] LAB Calcium 9.0 8.5 - 10.5 mg/dL LAB CHEMISTRY METHOD 04/04/2025 1:38 PM [facility] AST (SGOT) 17 10 - 42 unit/L LAB CHEMISTRY METHOD 04/04/2025 1:38 PM [facility] ALT (SGPT) 34 10 - 60 unit/L LAB CHEMISTRY METHOD 04/04/2025 1:38 PM [facility] Alkaline Phosphatase 65 42 - 121 unit/L LAB CHEMISTRY METHOD 04/04/2025 1:38 PM [facility] Total Protein 5.6(L) 6.0 - 8.0 g/dL LAB CHEMISTRY METHOD 04/04/2025 1:38 PM [facility] Albumin 2.9(L) 3.2 - 5.0 g/dL LAB CHEMISTRY METHOD 04/04/2025 1:38 PM EDT [facility] Total Bilirubin 0.9 0.0 - 1.4 mg/dL LAB CHEMISTRY METHOD 04/04/2025 1:38 PM EDT [facility] Blood Venous blood specimen / Unknown Venipuncture / Unknown 04/04/2025 8:27 AM EDT 04/04/2025 12:53 PM EDT us Mario Berrios MD LAB BLOOD ORDERABLES Final Resu lt [facility] [address] [place] [address], [place] [phone] * (ABNORMAL) Complete blood count (04/04/2025 8:27 AM EDT) WBC 11.0(H) 4.8 - 10.8 K/mcL LAB HEMETOLOGY METHOD 04/04/2025 1:20 PM EDT [facility] RBC 4.30 3.80 - 4.80 M/mcL LAB HEMETOLOGY METHOD 04/04/2025 1:20 PM EDT [facility] Hemoglobin 13.2 11.5 - 16.0 g/dL LAB HEMETOLOGY METHOD 04/04/2025 1:20 PM EDT [facility] Hematocrit 40.2 35.0 - 47.0 % LAB HEMETOLOGY METHOD 04/04/2025 1:20 PM EDT [facility] LAB MCV 93.7 79.0 - 98.0 FL LAB HEMETOLOGY METHOD 04/04/2025 1:20 PM EDT [facility] MCH 30.8 27.0 - 32.0 pcg LAB HEMETOLOGY METHOD 04/04/2025 1:20 PM EDT [facility] MCHC 32.8 32.0 - 37.0 g/dL LAB HEMETOLOGY METHOD 04/04/2025 1:20 PM EDT [facility] RDW 15.3(H) 11.0 - 15.0 % LAB HEMETOLOGY METHOD 04/04/2025 1:20 PM EDT [facility] Platelets 179 130 - 400 K/mcL LAB HEMETOLOGY METHOD 04/04/2025 1:20 PM EDT [facility] MPV 11.9(H) 7.0 - 11.0 FL LAB HEMETOLOGY METHOD 04/04/2025 1:20 PM EDT [facility] NRBC 0.0 <1.0 % LAB HEMETOLOGY METHOD 04/04/2025 1:20 PM EDT [facility] NRBC Absolute 0.00 <0.10 K/mcL LAB HEMETOLOGY METHOD 04/04/2025 1:20 PM EDT [facility] Blood Venous blood specimen / Unknown Venipuncture / Unknown 04/04/2025 8:27 AM EDT 04/04/2025 12:53 PM EDT us Mario Berrios MD LAB BLOOD ORDERABLES Final Resu lt [facility] [address] [place] [address], documented in this encounter Visit Diagnoses Diagnosis Essential (primary) hypertension Unspecified essential hypertension documented in this encounter Care Teams Base Filler Relationship Specialty Start Date End Date Mario Berrios MD [address] [place] [phone] PCP - General Internal Medicine 04/04/25 documented as of this encounter
--- OUTSIDE RECORDS SUMMARY | 2025-07-28 14:32 | XMS_ITS | Encounter Summary ---
Author Organization [facility] Address [address] [place] [address] Care Team Providers Care Certified Surgical Assistant Name Role Phone Mario Berrios MD Primary Care Provider [phone] Encounter Details Date Type Department Care Team (Late st Contact Info) Description 04/09/2025 Lab Requisition [facility] - Main Lab [address] [facility] [place] [address] Mario Berrios MD [address] [place] [phone] Dysuria; Urinary tract infection, site not [...] reflex microscopic (04/08/2025 4:45 PM EDT) Specific [place] Urine 1.028 1.003 - 1.030 LAB URINALYSIS - AUTOMATED METHOD 04/09/2025 12:19 PM [facility] pH, Urine 5.5 5.0 - 8.0 pH LAB URINALYSIS - AUTOMATED METHOD 04/09/2025 12:19 PM [facility] Leukocytes, Urine Moderate(A) Negative LAB URINALYSIS - AUTOMATED METHOD 04/09/2025 12:19 PM [facility] Nitrite, Urine Positive(A) Negative LAB URINALYSIS - AUTOMATED METHOD 04/09/2025 12:19 PM [facility] Protein, Urine 30(A) <=Trace mg/dL LAB URINALYSIS - AUTOMATED METHOD 04/09/2025 12:19 PM [facility] Glucose, Urine 100(A) Negative mg/dL LAB URINALYSIS - AUTOMATED METHOD 04/09/2025 12:19 PM [facility] Ketones, Urine Trace(A) Negative mg/dL LAB URINALYSIS - AUTOMATED METHOD 04/09/2025 12:19 PM [facility] Urobilinogen , Urine 1.0 0.2 - 1.0 mg/dL LAB URINALYSIS - AUTOMATED METHOD 04/09/2025 12:19 PM [facility] Bilirubin, Urine Negative Negative LAB URINALYSIS - AUTOMATED METHOD 04/09/2025 12:19 PM [facility] Blood, Urine Negative Negative LAB URINALYSIS - AUTOMATED METHOD 04/09/2025 12:19 PM [facility] RBC, Urine 3.7 0 - 4 /HPF LAB URINALYSIS - AUTOMATED METHOD 04/09/2025 12:19 PM [facility] WBC, Urine 59.3(H) 0 - 4 /HPF LAB URINALYSIS - AUTOMATED METHOD 04/09/2025 12:19 PM [facility] Squamous Epithelial, Urine 30 0 - 60 /LPF LAB URINALYSIS - AUTOMATED METHOD 04/09/2025 12:19 PM [facility] Bacteria, Urine Many(A) Negative /HPF LAB URINALYSIS - AUTOMATED METHOD 04/09/2025 12:[address] [facility] Hyaline Casts, Urine 8.0(H) 0 - 3 /LPF LAB URINALYSIS - AUTOMATED METHOD 04/09/2025 12:[address] [facility] Urine Urine specimen obtained by clean catch procedure / Unknown Non-blood Collection / Unknown 04/08/2025 4:45 PM EDT 04/09/2025 11:37 AM EDT us Mario Berrios MD LAB URINE ORDERABLES Final Resu lt [facility] [address] [place] [address], [place] [phone] * (ABNORMAL) Culture urine (04/08/2025 4:45 PM EDT) Culture, Urine >=100,000 CFU/mL Enterobacter cloacae complex(A) GEMA 04/11/2025 9:[address] [facility] Comment: This is an edited [...] Mario Berrios MD LAB MICROBIOLOGY - GENERAL RESERVEMiguel [facility] Final Result Performing Organization Address City/State/[facility] Co de Phone Number [facility] [address] [place] [address], documented in this encounter Visit Diagnoses Diagnosis Dysuria Urinary tract infection, site not specified documented in this encounter Care Teams Certified Surgical Assistant Relationship Specialty Start Date End Date Mario Berrios MD [address] [place] [address] PCP - General Internal Medicine 04/04/25 documented as of this encounter
--- OUTSIDE RECORDS SUMMARY | 2025-07-28 14:32 | XMS_ITS | Encounter Summary ---
Author Organization Mari [facility] Address [address] [place] [address] Care Team Providers Care Air Conditioning Engineer Name Role Phone Mario Berrios MD Primary Care Provider [phone] Encounter Details Date Type Department Care Team (Late st Contact Info) Description 04/29/2025 Lab Requisition [facility] - Main Lab [address] [facility] [place] [address] Mario Berrios MD [address] [place] [phone] Hypo-osmolality and hyponatremia Social History Tobacco [...] LAB CHEMISTRY METHOD 04/29/2025 3:38 PM EDT [facility] Potassium 4.3 3.5 - 5.5 mmol/L LAB CHEMISTRY METHOD 04/29/2025 3:38 PM EDT [facility] Chloride 93(L) 96 - 110 mmol/L LAB CHEMISTRY METHOD 04/29/2025 3:38 PM EDT [facility] CO2 31 21 - 32 [...] LAB CHEMISTRY METHOD 04/29/2025 3:38 PM EDT [facility] Total Bilirubin 1.2 0.0 - 1.4 mg/dL LAB CHEMISTRY METHOD 04/29/2025 3:38 PM EDT [facility] Blood Venous blood specimen / Unknown Venipuncture / Unknown 04/29/2025 6:15 AM EDT 04/29/2025 11:49 AM EDT us Mario Berrios MD LAB BLOOD ORDERABLES Final Resu lt [facility] [address] [place] [address], documented in this encounter Visit Diagnoses Diagnosis Hypo-osmolality and hyponatremia documented in this encounter Care Teams Air Conditioning Engineer Relationship Specialty Start Date End Date Mario Berrios MD [address] [place] [address] PCP - General Internal Medicine 04/04/25 documented as of this encounter
--- OUTSIDE RECORDS SUMMARY | 2025-07-28 14:32 | XMS_ITS | Clinical Summary ---
Author Organization [facility] Address [address] [place] [address] Phone Care Team Providers Care Resort Manager Name Role Phone Mario Berrios MD Primary Care Provider [phone] Encounters Date Type Department Care Team Description 05/09/2025 Lab Requisition [facility] Lab [address] [place] [phone] Mario Berrios MD Essential (primary) hypertension 05/03/2025 Lab Requisition [facility] Lab [address] [place] [phone] Mario Berrios MD Essential (primary) hypertension 04/29/2025 Lab Requisition [facility] Lab [address] [place] [phone] Mario Berrios MD Hypo-osmolality and hyponatremia 04/24/2025 Lab Requisition [facility] Lab [address] [place] [phone] Mario Berrios MD Essential (primary) hypertension from [...] 04/27/2025 6:26 AM EDT Essential (primary) hypertension from Last 3 Months Results * (ABNORMAL) Complete blood count (05/04/2025 5:20 AM EDT) Only the most recent of2 resultswithin the time period is included. WBC 6.1 4.8 - 10.8 K/mcL LAB HEMETOLOGY METHOD 05/04/2025 11:11 AM [facility] LAB RBC 4.00 3.80 - 4.80 M/mcL LAB HEMETOLOGY METHOD 05/04/2025 11:11 AM [facility] LAB Hemoglobin 12.3 11.5 - 16.0 g/dL LAB HEMETOLOGY METHOD 05/04/2025 11:11 AM [facility] LAB Hematocrit 36.4 35.0 - 47.0 % LAB HEMETOLOGY METHOD 05/04/2025 11:11 AM [facility] LAB MCV 91.9 79.0 - 98.0 FL LAB HEMETOLOGY METHOD 05/04/2025 11:11 AM [facility] LAB MCH 31.1 27.0 - 32.0 pcg LAB HEMETOLOGY METHOD 05/04/2025 11:11 AM [facility] LAB MCHC 33.8 32.0 - 37.0 g/dL LAB HEMETOLOGY METHOD 05/04/2025 11:11 AM [facility] LAB RDW 15.1(H) 11.0 - 15.0 % LAB HEMETOLOGY METHOD 05/04/2025 11:11 AM [facility] LAB Platelets 204 130 - 400 K/mcL LAB HEMETOLOGY METHOD 05/04/2025 11:11 AM [facility] LAB MPV 10.3 7.0 - 11.0 FL LAB HEMETOLOGY METHOD 05/04/2025 11:11 AM EDT [facility] LAB NRBC 0.0 <1.0 % LAB HEMETOLOGY METHOD 05/04/2025 11:11 AM EDT [facility] LAB NRBC Absolute 0.00 <0.10 K/mcL LAB HEMETOLOGY METHOD 05/04/2025 11:11 AM EDT [facility] LAB Blood Venous blood specimen / Unknown Venipuncture / Unknown 05/04/2025 5:20 AM EDT 05/04/2025 10:22 AM EDT us Mario Berrios MD LAB BLOOD ORDERABLES Final Resu lt [facility] LAB [address] [place] [address], [place] [phone] * (ABNORMAL) Comprehensive metabolic panel (05/04/2025 5:20 AM EDT) Only the most recent of3 resultswithin the time period is included. Sodium 131(L) 133 - 145 mmol/L LAB CHEMISTRY METHOD 05/04/2025 11:30 AM [facility] LAB Potassium 3.6 3.5 - 5.5 mmol/L LAB CHEMISTRY METHOD 05/04/2025 11:30 AM [facility] LAB Comment:Hemolysis present Chloride 94(L) 96 - 110 mmol/L LAB CHEMISTRY METHOD 05/04/2025 11:30 AM [facility] LAB CO2 28 21 - 32 mmol/L LAB CHEMISTRY METHOD 05/04/2025 11:30 AM [facility] LAB Anion Gap 9 3 - 11 LAB CHEMISTRY METHOD 05/04/2025 11:30 AM [facility] LAB Glucose 79 70 - 100 mg/dL LAB CHEMISTRY METHOD 05/04/2025 11:30 AM [facility] LAB BUN 11 5 - 25 mg/dL LAB CHEMISTRY METHOD 05/04/2025 11:30 AM [facility] LAB Creatinine 0.44(L) 0.50 - 1.10 mg/dL LAB CHEMISTRY METHOD 05/04/2025 11:30 AM [facility] LAB eGFR 95 >=60 mL/min/1. 73m2 LAB CHEMISTRY METHOD 05/04/2025 11:30 AM [facility] LAB Comment:Calculation based on the Chronic Kidney Disease Epidemiology Collaboration (CKD-EPI) equation refit without adjustment for race. BUN/Creatinine Ratio 25.0 LAB CHEMISTRY METHOD 05/04/2025 11:30 AM [facility] LAB Calcium 8.1(L) 8.5 - 10.5 mg/dL LAB CHEMISTRY METHOD 05/04/2025 11:30 AM [facility] LAB AST (SGOT) 28 10 - 42 unit/L LAB CHEMISTRY METHOD 05/04/2025 11:30 AM [facility] LAB Comment:Hemolysis present ALT (SGPT) 27 10 - 60 unit/L LAB CHEMISTRY METHOD 05/04/2025 11:30 AM [facility] LAB Alkaline Phosphatase 140(H) 42 - 121 unit/L LAB CHEMISTRY METHOD 05/04/2025 11:30 AM [facility] LAB Total Protein 5.5(L) 6.0 - 8.0 g/dL LAB CHEMISTRY METHOD 05/04/2025 11:30 AM [facility] LAB Albumin 2.5(L) 3.2 - 5.0 g/dL LAB CHEMISTRY METHOD 05/04/2025 11:30 AM [facility] LAB Total Bilirubin 0.8 0.0 - 1.4 mg/dL LAB CHEMISTRY METHOD 05/04/2025 11:30 AM [facility] LAB Blood Venous blood specimen / Unknown Venipuncture / Unknown 05/04/2025 5:20 AM EDT 05/04/2025 10:20 AM EDT us Mario Berrios MD LAB BLOOD ORDERABLES Final Resu lt [facility] [place] [facility] [address] [place] [address], [place] [phone] from Last 3 Months Insurance MEDICARE [facility] MEDICARE Care Teams Resort Manager Relationship Specialty Start Date End Date Mario Berrios MD [address] [place] [phone] PCP - General Internal Medicine 04/04/25
--- OUTSIDE RECORDS SUMMARY | 2025-07-28 14:32 | XMS_ITS | Encounter Summary ---
Author Organization [facility] Address [address] [place] [address] Care Team Providers Care Corporate Wellness Coordinator Name Role Phone Mario Berrios MD Primary Care Provider [phone] Encounter Details Date Type Department Care Team (Late st Contact Info) Description 04/24/2025 Lab Requisition [facility] - Main Lab [address] [facility] [place] [address] Mario Berrios MD [address] [place] [phone] Essential (primary) hypertension Social History Tobacco Use [...] AM EDT) WBC 6.1 4.8 - 10.8 K/[facility] LAB HEMETOLOGY METHOD 04/27/2025 1:16 PM EDT [facility] LAB RBC 4.20 3.80 - 4.80 M/[facility] LAB HEMETOLOGY METHOD 04/27/2025 1:16 PM EDT [facility] LAB Hemoglobin 12.9 11.5 - 16.0 g/dL LAB HEMETOLOGY METHOD 04/27/2025 1:16 PM EDT [facility] LAB Hematocrit 39.2 35.0 - 47.0 % LAB HEMETOLOGY METHOD 04/27/2025 1:16 PM EDT [facility] LAB MCV 94.0 79.0 - 98.0 FL LAB HEMETOLOGY METHOD 04/27/2025 1:16 PM EDT [facility] LAB MCH 30.9 27.0 - 32.0 pcg LAB HEMETOLOGY METHOD 04/27/2025 1:16 PM EDT [facility] LAB MCHC 32.9 32.0 - 37.0 g/dL LAB HEMETOLOGY METHOD 04/27/2025 1:16 PM EDT [facility] LAB RDW 16.2(H) 11.0 - 15.0 % LAB HEMETOLOGY METHOD 04/27/2025 1:16 PM EDT [facility] LAB Platelets 173 130 - 400 K/mcL LAB HEMETOLOGY METHOD 04/27/2025 1:16 PM EDT [facility] LAB MPV 10.3 7.0 - 11.0 FL LAB HEMETOLOGY METHOD 04/27/2025 1:16 PM EDT [facility] LAB NRBC 0.0 <1.0 % LAB HEMETOLOGY METHOD 04/27/2025 1:16 PM EDT [facility] LAB NRBC Absolute 0.00 <0.10 K/mcL LAB HEMETOLOGY METHOD 04/27/2025 1:16 PM EDT [facility] LAB Blood Venous blood specimen / Unknown Venipuncture / Unknown 04/27/2025 6:26 AM EDT 04/27/2025 11:51 AM EDT us Mario Berrios MD LAB BLOOD ORDERABLES Final Resu lt [facility] LAB [address] [place] [address], * (ABNORMAL) Comprehensive metabolic panel (04/27/2025 6:26 AM EDT) Sodium 130(L) 133 - 145 mmol/L LAB CHEMISTRY METHOD 04/27/2025 1:02 PM [facility] LAB Potassium 4.1 3.5 - 5.5 mmol/L LAB CHEMISTRY METHOD 04/27/2025 1:02 PM [facility] LAB Chloride 94(L) 96 - 110 mmol/L LAB CHEMISTRY METHOD 04/27/2025 1:02 PM [facility] LAB CO2 29 21 - 32 mmol/L LAB CHEMISTRY METHOD 04/27/2025 1:02 PM [facility] LAB Anion Gap 7 3 - 11 LAB CHEMISTRY METHOD 04/27/2025 1:02 PM [facility] LAB Glucose 76 70 - 100 mg/dL LAB CHEMISTRY METHOD 04/27/2025 1:02 PM [facility] LAB BUN 9 5 - 25 mg/dL LAB CHEMISTRY METHOD 04/27/2025 1:02 PM [facility] LAB Creatinine 0.58 0.50 - 1.10 mg/dL LAB CHEMISTRY METHOD 04/27/2025 1:02 PM [facility] LAB eGFR 89 >=60 mL/min/1. 73m2 LAB CHEMISTRY METHOD 04/27/2025 1:02 PM [facility] LAB Comment:Calculation based on the Chronic Kidney Disease Epidemiology Collaboration (CKD-EPI) equation refit without adjustment for race. BUN/Creatinine Ratio 15.5 LAB CHEMISTRY METHOD 04/27/2025 1:02 PM [facility] LAB Calcium 8.1(L) 8.5 - 10.5 mg/dL LAB CHEMISTRY METHOD 04/27/2025 1:02 PM [facility] LAB AST (SGOT) 19 10 - 42 unit/L LAB CHEMISTRY METHOD 04/27/2025 1:02 PM EDT [facility] ALT (SGPT) 34 10 - 60 unit/L LAB CHEMISTRY METHOD 04/27/2025 1:02 PM EDT [facility] LAB Alkaline Phosphatase 139(H) 42 - 121 unit/L LAB CHEMISTRY METHOD 04/27/2025 1:02 PM EDT [facility] LAB Total Protein 5.4(L) 6.0 - 8.0 g/dL LAB CHEMISTRY METHOD 04/27/2025 1:02 PM EDT [facility] LAB Albumin 2.7(L) 3.2 - 5.0 g/dL LAB CHEMISTRY METHOD 04/27/2025 1:02 PM [facility] LAB Total Bilirubin 1.2 0.0 - 1.4 mg/dL LAB CHEMISTRY METHOD 04/27/2025 1:02 PM EDT [facility] LAB Blood Venous blood specimen / Unknown Venipuncture / Unknown 04/27/2025 6:26 AM EDT 04/27/2025 11:51 AM EDT us Mario Berrios MD LAB BLOOD ORDERABLES Final Resu lt [facility] LAB [address] [place] [address], documented in this encounter Visit Diagnoses Diagnosis Essential (primary) hypertension Unspecified essential hypertension documented in this encounter Care Teams Corporate Wellness Coordinator Relationship Specialty Start Date End Date Mario Berrios MD [address] [place] [phone] PCP - General Internal Medicine 04/04/25 documented as of this encounter
--- OUTSIDE RECORDS SUMMARY | 2025-07-28 14:32 | XMS_ITS | Encounter Summary ---
Author Organization [employer] [facility] Address [address] [place] [address] Care Team Providers Care Screen Printing Equipment Setter Name Role Phone Mario Berrios MD Primary Care Provider [phone] Encounter Details Date Type Department Care Team (Late st Contact Info) Description 04/06/2025 Lab Requisition [facility] - Main Lab [address] [facility] [place] [address] Mario Berrios MD [address] [place] [phone] Essential (primary) hypertension Social History Tobacco Use [...] LAB CHEMISTRY METHOD 04/06/2025 1:16 PM T [facility] LAB Potassium 5.8(H) 3.5 - 5.5 mmol/L LAB CHEMISTRY METHOD 04/06/2025 1:16 PM EDT [facility] LAB Comment:Hemolysis present Chloride 96 96 - 110 mmol/L LAB CHEMISTRY METHOD 04/06/2025 1:[address] [facility] LAB CO2 24 21 - 32 mmol/L LAB CHEMISTRY METHOD 04/06/2025 1:[address] [facility] LAB Anion Gap 10 3 - 11 LAB CHEMISTRY METHOD 04/06/2025 1:[address] [facility] LAB Glucose 97 70 - 100 mg/dL LAB CHEMISTRY METHOD 04/06/2025 1:[address] [facility] LAB BUN 20 5 - 25 mg/dL LAB CHEMISTRY METHOD 04/06/2025 1:[address] [facility] LAB Creatinine 0.65 0.50 - 1.10 mg/dL LAB CHEMISTRY METHOD 04/06/2025 1:[address] [facility] LAB eGFR 86 >=60 mL/min/1. 73m2 LAB CHEMISTRY METHOD 04/06/2025 1:[address] [facility] LAB Comment:Calculation based on the Chronic Kidney Disease Epidemiology Collaboration (CKD-EPI) equation refit without adjustment for race. BUN/Creatinine Ratio 30.8 LAB CHEMISTRY METHOD 04/06/2025 1:[address] [facility] LAB Calcium 8.6 8.5 - 10.5 mg/dL LAB CHEMISTRY METHOD 04/06/2025 1:[address] [facility] LAB AST (SGOT) 28 10 - 42 unit/L LAB CHEMISTRY METHOD 04/06/2025 1:[address] [facility] LAB Comment:Hemolysis present ALT (SGPT) 34 10 - 60 unit/L LAB CHEMISTRY METHOD 04/06/2025 1:[address] [facility] LAB Alkaline Phosphatase 78 42 - 121 unit/L LAB CHEMISTRY METHOD 04/06/2025 1:[address] [facility] LAB Total Protein 5.7(L) 6.0 - 8.0 g/dL LAB CHEMISTRY METHOD 04/06/2025 1:[address] [facility] LAB Albumin 3.0(L) 3.2 - 5.0 g/dL LAB CHEMISTRY METHOD 04/06/2025 1:16 PM EDT [facility] LAB Total Bilirubin 0.8 0.0 - 1.4 mg/dL LAB CHEMISTRY METHOD 04/06/2025 1:16 PM EDT [facility] LAB Blood Venous blood specimen / Unknown Venipuncture / Unknown 04/06/2025 5:18 AM EDT 04/06/2025 10:40 AM EDT us Mario Berrios MD LAB BLOOD ORDERABLES Final Resu lt [facility] LAB [address] [place] [address], [place] [phone] * (ABNORMAL) Complete blood count (04/06/2025 5:18 AM EDT) WBC 10.8 4.8 - 10.8 K/mcL LAB HEMETOLOGY METHOD 04/06/2025 11:[address] [facility] LAB RBC 4.00 3.80 - 4.80 M/mcL LAB HEMETOLOGY METHOD 04/06/2025 11:[address] [facility] LAB Hemoglobin 12.4 11.5 - 16.0 g/dL LAB HEMETOLOGY METHOD 04/06/2025 11:[address] [facility] LAB Hematocrit 38.3 35.0 - 47.0 % LAB HEMETOLOGY METHOD 04/06/2025 11:40 AM T [facility] LAB MCV 95.8 79.0 - 98.0 FL LAB HEMETOLOGY METHOD 04/06/2025 11:[address] [facility] LAB MCH 31.0 27.0 - 32.0 pcg LAB HEMETOLOGY METHOD 04/06/2025 11:[address] [facility] LAB MCHC 32.4 32.0 - 37.0 g/dL LAB HEMETOLOGY METHOD 04/06/2025 11:40 AM EDT [facility] LAB RDW 15.3(H) 11.0 - 15.0 % LAB HEMETOLOGY METHOD 04/06/2025 11:40 AM EDT [facility] LAB Platelets 166 130 - 400 K/mcL LAB HEMETOLOGY METHOD 04/06/2025 11:40 AM EDT [facility] LAB MPV 12.4(H) 7.0 - 11.0 FL LAB HEMETOLOGY METHOD 04/06/2025 11:40 AM EDT [facility] LAB NRBC 0.0 <1.0 % LAB HEMETOLOGY METHOD 04/06/2025 11:40 AM EDT [facility] LAB NRBC Absolute 0.00 <0.10 K/mcL LAB HEMETOLOGY METHOD 04/06/2025 11:40 AM EDT [facility] LAB Blood Venous blood specimen / Unknown Venipuncture / Unknown 04/06/2025 5:18 AM EDT 04/06/2025 10:40 AM EDT Mario Berrios MD LAB BLOOD ORDERABLES Final Resu lt [facility] LAB [address] [place] [address], documented in this encounter Visit Diagnoses Diagnosis Essential (primary) hypertension Unspecified essential hypertension documented in this encounter Care Teams Screen Printing Equipment Setter Relationship Specialty Start Date End Date Mario Berrios MD [address] [place] [address] PCP - General Internal Medicine 04/04/25 documented as of this encounter
--- OUTSIDE RECORDS SUMMARY | 2025-07-28 14:32 | XMS_ITS | Encounter Summary ---
Author Organization [facility] Address [address] [place] [phone] Phone Care Team Providers Care Mission Planner Name Role Phone Pcp, Unknown Primary Care Provider Unavailabl e Encounter Details Date Type Department Care Team (Late st Contact Info) Description 10/01/2024 Procedure Pass [facility] Endoscopy Admitting Dept Virtual Department [address] [place] [address] Social History Tobacco Use Types Packs/Day Years [...] on filedocumented in this encounter Care Teams Mission Planner Relationship Specialty Start Date End Date Pcp, Unknown PCP - General 08/05/24 documented as of this encounter Additional Source Comments The information contained in this document represents components of the legal health record. It is not the complete legal health record.[facility]
--- OUTSIDE RECORDS SUMMARY | 2025-07-28 14:32 | XMS_ITS | Encounter Summary ---
Author Organization [facility] Address [address] [place] [address] Care Team Providers Care Grab Operator Name Role Phone Mario Berrios MD Primary Care Provider [phone] Encounter Details Date Type Department Care Team (Late st Contact Info) Description 04/23/2025 Lab Requisition [facility] - Main Lab [address] [facility] [place] [address] Mario Berrios MD [address] [place] [address] Diarrhea, unspecified Social History Tobacco [...] unspecified documented in this encounter Care Teams Grab Operator Relationship Specialty Start Date End Date Mario Berrios MD [address] [place] [address] PCP - General Internal Medicine 04/04/25 documented as of this encounter
--- OUTSIDE RECORDS SUMMARY | 2025-07-28 14:32 | XMS_ITS | Encounter Summary ---
Author Organization [facility] Address [address] [place] [address] Care Team Providers Care Bicycle Taxi Driver Name Role Phone Mario Berrios MD Primary Care Provider [phone] Encounter Details Date Type Department Care Team (Late st Contact Info) Description 04/12/[address] [facility] - Main Lab [address] [facility] [place] [address] Mario Berrios MD [address] [place] [address] [phone] Essential (primary) hypertension Social History Tobacco Use [...] AM EDT) WBC 8.1 4.8 - 10.8 K/[facility] LAB HEMETOLOGY METHOD 04/13/2025 11:31 AM EDT [facility] LAB RBC 4.00 3.80 - 4.80 M/[facility] LAB HEMETOLOGY METHOD 04/13/2025 11:31 AM EDT [facility] LAB Hemoglobin 12.5 11.5 - 16.0 g/dL LAB HEMETOLOGY METHOD 04/13/2025 11:31 AM [facility] LAB Hematocrit 37.3 35.0 - 47.0 % LAB HEMETOLOGY METHOD 04/13/2025 11:31 AM [facility] LAB MCV 92.8 79.0 - 98.0 FL LAB HEMETOLOGY METHOD [facility]25 [facility] MCH 31.1 27.0 - 32.0 pcg LAB HEMETOLOGY METHOD 04/13/2025 11:31 AM [facility] LAB MCHC 33.5 32.0 - 37.0 g/dL LAB HEMETOLOGY METHOD 04/13/2025 11:31 AM [facility] LAB RDW 16.3(H) 11.0 - 15.0 % LAB HEMETOLOGY METHOD 04/13/2025 11:31 AM [facility] LAB Platelets 122(L) 130 - 400 K/mcL LAB HEMETOLOGY METHOD 04/13/2025 11:31 AM [facility] LAB MPV 12.1(H) 7.0 - 11.0 FL LAB HEMETOLOGY METHOD 04/13/2025 11:31 AM [facility] LAB NRBC 0.0 <1.0 % LAB HEMETOLOGY METHOD 04/13/2025 11:31 AM [facility] LAB NRBC Absolute 0.00 <0.10 K/mcL LAB HEMETOLOGY METHOD 04/13/2025 11:31 AM [facility] LAB Blood Venous blood specimen / Unknown Venipuncture / Unknown 04/13/2025 8:37 AM EDT 04/13/2025 10:16 AM EDT us Mario Berrios MD LAB BLOOD ORDERABLES Final Resu lt [facility] LAB [address] [place] [address], [place] [phone] * (ABNORMAL) Comprehensive metabolic panel (04/13/2025 8:37 AM EDT) Sodium 133 133 - 145 mmol/L LAB CHEMISTRY METHOD 04/13/2025 11:42 AM [facility] LAB Potassium 3.6 3.5 - 5.5 mmol/L LAB CHEMISTRY METHOD 04/13/2025 11:42 AM [facility] LAB Chloride 98 96 - 110 mmol/L LAB CHEMISTRY METHOD 04/13/2025 11:42 AM [facility] LAB CO2 26 21 - 32 mmol/L LAB CHEMISTRY METHOD 04/13/2025 11:42 AM [facility] LAB Anion Gap 9 3 - 11 LAB CHEMISTRY METHOD 04/13/2025 11:42 AM [facility] LAB Glucose 122(H) 70 - 100 mg/dL LAB CHEMISTRY METHOD 04/13/2025 11:42 AM [facility] LAB BUN 16 5 - 25 mg/dL LAB CHEMISTRY METHOD 04/13/2025 11:42 AM [facility] LAB Creatinine 0.59 0.50 - 1.10 mg/dL LAB CHEMISTRY METHOD 04/13/2025 11:42 AM [facility] LAB eGFR 88 >=60 mL/min/1. 73m2 LAB CHEMISTRY METHOD 04/13/2025 11:42 AM [facility] LAB Comment:Calculation based on the Chronic Kidney Disease Epidemiology Collaboration (CKD-EPI) equation refit without adjustment for race. BUN/Creatinine Ratio 27.1 LAB CHEMISTRY METHOD 04/13/2025 11:42 AM [facility] LAB Calcium 8.3(L) 8.5 - 10.5 mg/dL LAB CHEMISTRY METHOD 04/13/2025 11:42 AM [facility] LAB AST (SGOT) 38 10 - 42 unit/L LAB CHEMISTRY METHOD 04/13/2025 11:42 AM [facility] LAB ALT (SGPT) 110(H) 10 - 60 unit/L LAB CHEMISTRY METHOD 04/13/2025 11:42 AM [facility] LAB Alkaline Phosphatase 170(H) 42 - 121 unit/L LAB CHEMISTRY METHOD 04/13/2025 11:42 AM T [facility] LAB Total Protein 5.3(L) 6.0 - 8.0 g/dL LAB CHEMISTRY METHOD 04/13/2025 11:42 AM [facility] LAB Albumin 2.8(L) 3.2 - 5.0 g/dL LAB CHEMISTRY METHOD 04/13/2025 11:42 AM [facility] LAB Total Bilirubin 1.0 0.0 - 1.4 mg/dL LAB CHEMISTRY METHOD 04/13/2025 11:42 AM [facility] LAB Blood Venous blood specimen / Unknown Venipuncture / Unknown 04/13/2025 8:37 AM EDT 04/13/2025 10:18 AM EDT Mario Berrios MD LAB BLOOD ORDERABLES Final Resu lt [facility] LAB [address] [place] [address], documented in this encounter Visit Diagnoses Diagnosis Essential (primary) hypertension Unspecified essential hypertension documented in this encounter Care Teams Bicycle Taxi Driver Relationship Specialty Start Date End Date Mario Berrios MD [address] [place] [address] PCP - General Internal Medicine 04/04/25 documented as of this encounter
--- OUTSIDE RECORDS SUMMARY | 2025-07-28 14:32 | XMS_ITS | Encounter Summary ---
Author Organization [facility] Address [address] [place] [address] Care Team Providers Care Hose Suspender Cutter Name Role Phone Mario Berrios MD Primary Care Provider [phone] Encounter Details Date Type Department Care Team (Late st Contact Info) Description 04/22/2025 Lab Requisition [facility] - Main Lab [address] [facility] [place] [address] Mario Berrios MD [address] [place] [address] [phone] Essential (primary) hypertension Social History Tobacco Use [...] lt [facility] LAB [address] [place] [address], * (ABNORMAL) Complete blood count (04/23/2025 5:52 [...] MD LAB BLOOD ORDERABLES Final Resu lt [facility] [address] [place] [address], documented in this encounter Visit Diagnoses Diagnosis Essential (primary) hypertension Unspecified essential hypertension documented in this encounter Care Teams Hose Suspender Cutter Relationship Specialty Start Date End Date Mario Berrios MD [address] [place] [address] PCP - General Internal Medicine 04/04/25 documented as of this encounter
--- OUTSIDE RECORDS SUMMARY | 2025-07-28 14:32 | XMS_ITS | Patient Health Record ---
Author Organization [facility] Address [address] [facility] [place] [address] Care Team Providers Care Padding Machine Operator Name Role Phone Owen VIEYRA, Ora Primary Care Provider Unavailab Karol Yanes Unavailable [phone] Reason For Referral No Information Medications Medication [...] Treatment Pending Test Test Name Order Date [id number] TENDON SHEATH/LIGAMENT 0 11/27/2019 Insurance Providers Payer Name Payer Address Payer Phone Subscriber Number Group Number Insured Name Patient Relationship to Insured Coverage Start Date Coverage End Date Medicare [facility] [employer] [address] [place] [address] [id number] Yesenia Fisher Self - patient is the insured [facility] [address] [place] [address] [phone] [id number] Yesenia Fisher Self - patient is the insured Medical (General) History Medical History History ICD Code Reflux Measles breast cancer Mumps Surgical History Surgery Date(Month/Year) cancer surgery 07/1992 varicose vein stripping 1974 hysterectomy 1989
--- OUTSIDE RECORDS SUMMARY | 2025-07-28 14:32 | XMS_ITS | Data Portability ---
Author Organization [facility], Main Office Address [address], [address] [place] [address] Care Team Providers Care Blueprinting Machine Operator Name Role Phone [facility] [place] [facility] OTHER ISABELA MARQUEZ Primary Care Provider [phone] Assessment No assessment recorded. Plan of Treatment [...] Address Organization Details Recorded Time Recurrent falls 176871251 Active 2024 Gucci Harris [address], [address], [place], [address], [facility] 5 11:35:33 Drug-induced constipation 61861512 Active 2024 Gucci Harris [address], [address], [place], [address], [facility] 5 11:35:33 Anxiety 19716996 Active 2024 Gucci Harris [address], [address], [place], [address], [facility] 5 11:35:34 Gastroesophage al reflux disease 313064506 Active 2024 Gucci Harris [address], [address], [place], [address], [facility] 5 11:35:36 Acute hyponatremia 6878851 Active 2024 Gucci Harris [address], [address], [place], [address], [facility] 5 11:35:37 Asthenia 77113709 Active 2024 Gucci Harris [address], [address], [place], [address], [facility] 5 11:35:39 Peripheral neuropathic pain 568656234 Active 2024 Gucci Harris [address], [address], [place], [address], [facility] 5 11:35:40 Chronic low back pain 825454336 Active 2024 Gucci Harris [address], [address], [place], [address], [facility] 5 11:35:41 Multiple myeloma 016312724 Active 2024 Gucci Harris [address], [address], [place], [address], [facility] 5 11:35:43 Hyperlipidemia 21606929 Active 2024 Gucci Harris [address], [address], [place], [address], [facility] 5 11:35:45 Essential hypertension 69995470 Active 2024 Gucci Harris [address], [address], [place], [address], [facility] 5 11:35:46 Persistent atrial fibrillation 005114501 Active 2024 Gucci Harris [address], [address], [place], [address], [facility] 5 11:35:50 Problem Notes None recorded. Medical Equipment None Reported. Allergies Allergen ID Allergen Name Allergen Category Reaction Reaction Severity Criticality Documentation Date Start Date Code Code System Note Provider Name and Address Organization Details Recorded Time [address] [facility] ne medicatio n Not available Not available Not available 03/30/2025 5470 RxNorm Gucci Harris [address], [address], [place], [address], [facility] 5 10:36:02 05613 sotalol medicatio n Not available Not available Not available 03/30/2025 9947 RxNorm Gucci Harris [address], [address], [place], [address], [facility] [employer] [facility] 5 10:36:27 60946 amlodipin e medicatio n Not available Not available Not available 03/30/2025 12373 RxNorm Gucci Harris [address], [address], [place], [address], [facility] 5 10:36:33 55434 hydrochlo rothiazid e medicatio n Not available Not available Not available 03/30/2025 5487 RxNorm Gucci Harris [address], [address], [place], [address], [facility] [employer] 5 10:56:32 Medications Name Sig Start Date [...] Address Organization Details Last Updated DateTime 5 05306.7 5 g 97 [degF] 84 /min 16 /min 100/67 mm[Hg] Walt Cruz MD [address], [address], [place], [address], [place] [employer] [facility] 5 12:05:50 Social History Question Answer Notes LastModified by Organizat ion Details LastModified Time Tobacco Smoking Status Never Smoker Brant [address], [address], [place], [address], [facility] - [facility] 04/01/2025 09:25:48 Do You Have An Advance [...] ICD10 Code Diagnosis IMO Codes Diagnosis Note [id number] Jean-Paul MCDONALD AT [address] [place] [address] 03/30/2025 10:34:37 03/31/2025 15:55:46 Persistent atrial fibrillation 380094176 I48.19 254396 continue diltiazem 240mg qd, metoprolol 50mg BID (hold for SBP < 90, HR < 60) and eliquis 5mg BIDmonitor rate Essential hypertension 58750106 I10 27305 Continue diltiazem 240 qd with parameters , metoprolol 50mg BIDmonitor BP and labs Hyperlipidemia 56878525 E78.5 59324541 Continue simvastati n 20mg qhsmonitor lipids PRN Multiple myeloma 5815081 06 C90.00 2258060 multiple thoracic and lumbar metastatic lesions with multilevel lumbar compressio nfollows oncology with future plans for palliative radiationC ontinue prednisone taper 40mg qd x 5d, 30mg qd x 5d, 20mg qd x 5d, 10mg qd x 5dupdate onc with concerns Peripheral neuropathic pain 152752564 M79.2 03845920 Continue hydromorph one 2mg q4h PRN- monitor utilizatio n Asthenia 33134580 R53.1 40265 Admit to services PT/OT for strengthen ing, balance, gait training, safety and function.C ontinue fall precaution s.Monitor for safety. Acute hyponatremia 06002 02 E87.1 67043 multifacto rial secondary to poor po intake and SIADH from MMContinue sodium tablet 1g TID1L fluid restrictio nmonitor labs Gastroesop hageal reflux disease 319894351 K21.9 3361766016 continue omeprazole 20mg qdmonitor sxs Anxiety 14267840 F41.9 38109 continue lorazepam 0.5mg qhs PRN x 14 days and monitor utilizatio nmonitor mood and consult if needed Chronic low back pain 27 6544130 M54.50 G89.29 0118780907 secondary to progressiv e MMContinue hydromorph one 2mg q4h PRN- monitor utilizatio n, hydrocorti sone topically BID, lidocaine patch 5% qd Drug-induc ed constipation 02791863 K59.03 8840 continue senna 17.2mg qd and colace 100mg BIDmonitor bowels and titrate PRN Recurrent falls 57116894 2 R29.6 44625 Continue fall precaution s.Monitor for safety. [id number] Walt Cruz MD [place] AT [address] [address] 04/02/2025 12:05:16 04/06/2025 15:54:20 Asthenia 41452919 R53.1 70125 PT OT eval and treatmonit or need for increased support in community Abnormal gait 89439908 R 26.81 059201 therapy to followmoni tor fall risk Persistent atrial fibrillation 765627335 I48.19 823833 rapid a fib required cardizem drip and followed by cards remains on eliquismon itor for rate control Essential hypertension 91475425 I10 03104 monitor bp and need to titrate medication s Hyperlipidemia 83426193 E78.5 91004473 simvastati n 20 mg qdcontinue d Multiple myeloma 3017649 06 C90.00 3167947 multiple myeloma with thoracic and lumbar mets, with increasing weaknessre c is for palliative radiation however held due to elevated liver enzymescoo rdinate with oncology Peripheral neuropathic pain 556431351 M79.2 23009262 see abovemulti factorialm onitor sx relief and need to titrate medication Acute hyponatremia 09660 02 E87.1 77016 Acute on chronic hyponatrem ia with SIADH and multiple myeloma eval by nephro and started on salt tabs and fluid restrictio nupdate nephro with concerns Gastroesop hageal reflux disease 596370263 K21.9 0334518536 omeprazole 20 mg qdmonitor sx relief Drug-induc ed constipation 20162586 K59.03 8840 bowel protocolmo nitor for effect Degenerati ve lumbar spinal stenosis 104521456 M48.061 780150 severe canal stenosis at L2-3, discussed with neurosurge ry and treated with decadron 4 mg q 8coordinat e with neurosurge ry 696973 Cayla_Gavin MCDONALD AT [address] [address] 04/03/2025 08:05:24 04/07/2025 08:14:36 Persistent atrial fibrillation 038636546 I48.19 712841 continue diltiazem 240mg qd, metoprolol 50mg BID (hold for SBP < 90, HR < 60) and eliquis 5mg BIDfacilit y as been out of diltiazem- rate has been uncontroll ed 80-120s Essential hypertension 87942678 I10 23084 Continue diltiazem 240 qd with parameters , metoprolol 50mg BID Hyperlipidemia 27913568 E78.5 92826614 Continue simvastati n 20mg qhsmonitor lipids outpatient Multiple myeloma 3526994 06 C90.00 9840622 multiple thoracic and lumbar metastatic lesions with multilevel lumbar compressio nfollows oncology with future plans for palliative radiationC ontinue prednisone taper 40mg qd x 5d, 30mg qd x 5d, 20mg qd x 5d, 10mg qd x 5df/u Onc as planned Chronic low back pain 27 9177820 M54.50 G89.29 1964041327 secondary to progressiv e MMContinue hydromorph one 2mg q4h PRN- monitor utilizatio n, hydorcorti sone topically BID, lidocaine patch 5% qd Peripheral neuropathic pain 340735288 M79.2 37918799 Continue hydromorph one 2mg q4h PRN Asthenia 88537210 R53.1 37751 Particpate d in PT/OT for strengthen ing, balance, gait training, safety and function. Acute hyponatremia 26605 02 E87.1 70836 multifacto rial secondary to poor po intake and SIADH from MMmost recent NA 131Continu e sodium tablet 1g TID1L fluid restrictio nf/u outpatient for lab monitoring Gastroesop hageal reflux disease 088938263 K21.9 8770029756 continue omeprazole 20mg qd Anxiety 12764776 F41.9 68016 continue lorazepam 0.5mg qhs PRN Drug-induc ed constipation 61877738 K59.03 8840 continue senna 17.2mg qd and colace 100mg BIDRecent large BM Recurrent falls 99853296 2 R29.6 32878 04/02 lowering herself to the floor while trying to standno apparent injuries but some buttock pain relieved with pain medication sContinue fall precaution s.Monitor for safety. Dysuria 82445313 R30.0 05688 with suprapubic discomfort today 04/03Would recommend facility obtain UA with reflex Productive cough 9084995 5 R05.8 707798 with scattered rhonchino dyspnea or hypoxiacon library technology instructor CXR if cough persists Health Concerns Section Related Observation LastModified by Organization Detai ls LastModified Time None Recorded Concern Status LastModified by Organization Details LastModified Time None Recorded Advance Directives Directive Y: Payers Insurance Date Sequence Insurance Name Policy Number Policy Hernandez Covered Member ID Hernandez Member ID Guarantor Name 04/06/2025 2 [facility] (MEDICARE SUPPLEMENT) Yesenia Fisher [id number] Yesenia Fisher 03/31/2025 1 [place] [employer] Yesenia Fisher [id number] Yesenia Fisher Notes Date Note Type Note Provider Name and Address Organization Details Recorded Time 03/30/20 25 text/htm l Patient is an 84 yo female who presents for initial intake visit PM afib on eliquis, HLD, peripheral neuropathy, HTN and MM with multiple thoracic and lumbar metastatic lesions with multilevel lumbar compression Presented to [facility] due to difficulty ambulating, RLE weakness and [...] started on salt tablets and sodium restriction. [place] to be due to poor PO intake/chronic [...] with recs for rehab and discharged to [facility] on 03/28/25 for STR/PT/OT RITA 65MOLST FULL CODE Cayla_Tra Sorensen [address], [address], [place], [address], [facility] 03/30/2025 11:36:18 04/02/20 25 text/htm l Patient [...] therapy eval and treat Walt Cruz MD [address] [place] [address], [address], [place], [address], [place] [facility] [employer] 04/02/2025 12:35:31 04/03/20 25 text/htm l Patient is an 84 yo female who presents for discharge summary PMH afib on eliquis, HLD, peripheral neuropathy, HTN and MM with multiple thoracic and lumbar metastatic lesions with multilevel lumbar compression Presented to [facility] due to difficulty ambulating, RLE weakness and [...] started on salt tablets and sodium restriction. [place] to be due to poor PO intake/chronic [...] with recs for rehab and discharged to [facility] on 03/28/25 for STR/PT/OT. She actively participated in therapy. Ambulating 25ft with 2WW. She was noted with an acute productive cough and evaluated by PASSENGER LOCOMOTIVE ENGINEER. No swallowing dysfunction on exam and recs [...] medically stable and okay to discharge to [facility] with meds and services A_Tra Sorensen [address] [place] [address], [address], [place], [address], [facility] 04/03/2025 09:51:51 OBGyn Episode No OBEpisode recorded.
--- OUTSIDE RECORDS SUMMARY | 2025-07-28 14:32 | XMS_ITS | Encounter Summary ---
Author Organization [facility] Address [address] [place] [address] Care Team Providers Care Warehouse Insulation Worker Name Role Phone Mario Berrios MD Primary Care Provider [phone] Encounter Details Date Type Department Care Team (Late st Contact Info) Description 04/17/[address] [facility] - Main Lab [address] [facility] [place] [address] Mario Berrios MD [address] [place] [phone] Essential (primary) hypertension Social History Tobacco Use [...] AM EDT) WBC 6.2 4.8 - 10.8 K/[facility] LAB HEMETOLOGY METHOD 04/20/2025 11:57 AM EDT [facility] RBC 4.00 3.80 - 4.80 M/[facility] LAB HEMETOLOGY METHOD 04/20/2025 11:57 AM EDT [facility] Hemoglobin 12.5 11.5 - 16.0 g/dL LAB HEMETOLOGY METHOD 04/20/2025 11:57 AM EDT [facility] Hematocrit 37.7 35.0 - 47.0 % LAB HEMETOLOGY METHOD 04/20/2025 11:57 AM EDT [facility] MCV 94.3 79.0 - 98.0 FL LAB HEMETOLOGY METHOD 04/20/2025 11:57 AM EDT [facility] MCH 31.3 27.0 - 32.0 pcg LAB HEMETOLOGY METHOD 04/20/2025 11:57 AM EDT [facility] MCHC 33.2 32.0 - 37.0 g/dL LAB HEMETOLOGY METHOD [facility] RDW 16.7(H) 11.0 - 15.0 % LAB HEMETOLOGY METHOD 04/20/2025 11:57 AM EDT [facility] Platelets 153 130 - 400 K/mcL LAB HEMETOLOGY METHOD 04/20/2025 11:57 AM EDT [facility] MPV 11.5(H) 7.0 - 11.0 FL LAB HEMETOLOGY METHOD 04/20/2025 11[facility] NRBC 0.0 <1.0 % LAB HEMETOLOGY METHOD 04/20/2025 11:57 AM EDT [facility] NRBC Absolute 0.00 <0.10 K/mcL LAB HEMETOLOGY METHOD 04/20/2025 11:[facility] Blood Venous blood specimen / Unknown Venipuncture / Unknown 04/20/2025 5:25 AM EDT 04/20/2025 10:56 AM EDT us Mario Berrios MD LAB BLOOD ORDERABLES Final Resu lt [facility] [address] [place] [address], * (ABNORMAL) Comprehensive metabolic panel (04/20/2025 5:25 AM EDT) Sodium 134 133 - 145 mmol/L LAB CHEMISTRY METHOD 04/20/2025 1:[facility] Potassium 4.1 3.5 - 5.5 mmol/L LAB CHEMISTRY METHOD 04/20/2025 1:10 PM T [facility] Comment:Hemolysis present Chloride 96 [...] mg/dL LAB CHEMISTRY METHOD 04/20/2025 1:[facility] eGFR 90 >=60 mL/min/1. [...] LAB CHEMISTRY METHOD 04/20/2025 1:10 PM EDT [facility] Comment:Hemolysis present ALT (SGPT) 69(H) 10 - 60 unit/L LAB CHEMISTRY METHOD 04/20/2025 1:10 PM EDT [facility] Alkaline Phosphatase 156(H) 42 - 121 unit/L LAB CHEMISTRY METHOD 04/20/2025 1:10 PM EDT [facility] Total Protein 5.3(L) 6.0 - 8.0 g/dL LAB CHEMISTRY METHOD 04/20/2025 1:10 PM EDT [facility] Albumin 2.7(L) 3.2 - 5.0 g/dL LAB CHEMISTRY METHOD 04/20/2025 1:10 PM EDT [facility] Total Bilirubin 2.1(H) 0.0 - 1.4 mg/dL LAB CHEMISTRY METHOD 04/20/2025 1:10 PM EDT [facility] Comment:Results verified by repeat testing Blood Venous blood specimen / Unknown Venipuncture / Unknown 04/20/2025 5:25 AM EDT 04/20/2025 12:06 PM EDT Mario Berrios MD LAB BLOOD ORDERABLES Final Resu lt [facility] [address] [place] [address], documented in this encounter Visit Diagnoses Diagnosis Essential (primary) hypertension Unspecified essential hypertension documented in this encounter Care Teams Warehouse Insulation Worker Relationship Specialty Start Date End Date Mario Berrios MD [address] [place] [address] PCP - General Internal Medicine 04/04/25 documented as of this encounter
--- OUTSIDE RECORDS SUMMARY | 2025-07-28 14:32 | XMS_ITS | Encounter Summary ---
Author Organization [facility] Address [address] [place] [address] Care Team Providers Care Deputy Clerk Name Role Phone Mario Berrios MD Primary Care Provider [phone] Encounter Details Date Type Department Care Team (Late st Contact Info) Description 05/03/2025 Lab Requisition [facility] - Main Lab [address] [facility] [place] [address] Mario Berrios MD [address] [place] [address] Essential (primary) hypertension Social History Tobacco [...] AM EDT) WBC 6.1 4.8 - 10.8 K/[facility] LAB HEMETOLOGY METHOD 05/04/2025 11:[address] [facility] RBC 4.00 3.80 - 4.80 M/[facility] LAB HEMETOLOGY METHOD 05/04/2025 11:[address] [facility] Hemoglobin 12.3 11.5 - 16.0 g/dL LAB HEMETOLOGY METHOD 05/04/2025 11:[address] [facility] Hematocrit 36.4 35.0 - 47.0 % LAB HEMETOLOGY METHOD 05/04/2025 11:[address] [facility] MCV 91.9 79.0 - 98.0 FL LAB HEMETOLOGY METHOD 05/04/2025 11:[address] [facility] MCH 31.1 27.0 - 32.0 pcg LAB HEMETOLOGY METHOD 05/04/2025 11:[address] [facility] MCHC 33.8 32.0 - 37.0 g/dL LAB HEMETOLOGY METHOD 05/04/2025 11:11 AM [facility] RDW 15.1(H) 11.0 - 15.0 % LAB HEMETOLOGY METHOD 05/04/2025 11:[address] [facility] Platelets 204 130 - 400 K/mcL LAB HEMETOLOGY METHOD 05/04/2025 11:[address] [facility] MPV 10.3 7.0 - 11.0 FL LAB HEMETOLOGY METHOD 05/04/2025 11:[facility] NRBC 0.0 <1.0 % LAB HEMETOLOGY METHOD 05/04/2025 11:[address] [facility] NRBC Absolute 0.00 <0.10 K/mcL LAB HEMETOLOGY METHOD 05/04/2025 11:[address] [facility] Blood Venous blood specimen / Unknown Venipuncture / Unknown 05/04/2025 5:20 AM EDT 05/04/2025 10:22 AM EDT us Mario Berrios MD LAB BLOOD ORDERABLES Final Resu lt [facility] [address] [place] [address], * (ABNORMAL) Comprehensive metabolic panel (05/04/2025 5:20 AM EDT) Sodium 131(L) 133 - 145 mmol/L LAB CHEMISTRY METHOD 05/04/2025 11:30 AM [facility] Potassium 3.6 3.5 - 5.5 mmol/L LAB CHEMISTRY METHOD 05/04/2025 11:30 AM [facility] Comment:Hemolysis present Chloride 94(L) 96 - 110 mmol/L LAB CHEMISTRY METHOD 05/04/2025 11:30 AM [facility] CO2 28 21 - 32 mmol/L LAB CHEMISTRY METHOD 05/04/2025 11:30 AM [facility] Anion Gap 9 3 - 11 LAB CHEMISTRY METHOD 05/04/2025 11:30 AM [facility] Glucose 79 70 - 100 mg/dL LAB CHEMISTRY METHOD 05/04/2025 11:30 AM [facility] BUN 11 5 - 25 mg/dL LAB CHEMISTRY METHOD 05/04/2025 11:30 AM [facility] Creatinine 0.44(L) 0.50 - 1.10 mg/dL LAB CHEMISTRY METHOD 05/04/2025 11:30 AM [facility] eGFR 95 >=60 mL/min/1. 73m2 LAB CHEMISTRY METHOD 05/04/2025 11:30 AM [facility] Comment:Calculation based on the Chronic Kidney Disease Epidemiology Collaboration (CKD-EPI) equation refit without adjustment for race. BUN/Creatinine Ratio 25.0 LAB CHEMISTRY METHOD 05/04/2025 11:30 AM [facility] Calcium 8.1(L) 8.5 - 10.5 mg/dL LAB CHEMISTRY METHOD 05/04/2025 11:30 AM EDT [facility] AST (SGOT) 28 10 - 42 unit/L LAB CHEMISTRY METHOD 05/04/2025 11:[address] [facility] Comment:Hemolysis present ALT (SGPT) 27 10 - 60 unit/L LAB CHEMISTRY METHOD 05/04/2025 11:[address] [facility] Alkaline Phosphatase 140(H) 42 - 121 unit/L LAB CHEMISTRY METHOD 05/04/2025 11:[address] [facility] Total Protein 5.5(L) 6.0 - 8.0 g/dL LAB CHEMISTRY METHOD 05/04/2025 11:[address] [facility] Albumin 2.5(L) 3.2 - 5.0 g/dL LAB CHEMISTRY METHOD 05/04/2025 11:[address] [facility] Total Bilirubin 0.8 0.0 - 1.4 mg/dL LAB CHEMISTRY METHOD 05/04/2025 11:[address] [facility] Blood Venous blood specimen / Unknown Venipuncture / Unknown 05/04/2025 5:20 AM EDT 05/04/2025 10:20 AM EDT Mario Berrios MD LAB BLOOD ORDERABLES Final Resu lt [facility] [address] [place] [address], documented in this encounter Visit Diagnoses Diagnosis Essential (primary) hypertension Unspecified essential hypertension documented in this encounter Care Teams Deputy Clerk Relationship Specialty Start Date End Date Mario Berrios MD [address] [place] [address] PCP - General Internal Medicine 04/04/25 documented as of this encounter
--- OUTSIDE RECORDS SUMMARY | 2025-07-28 14:32 | XMS_ITS | Encounter Summary ---
Author Organization [facility] Address [address] [place] [address] Care Team Providers Care Folding Machine Feeder Name Role Phone Mario Berrios MD Primary Care Provider [phone] Encounter Details Date Type Department Care Team (Late st Contact Info) Description 05/09/2025 Lab Requisition [facility] - Main Lab [address] [facility] [place] [address] Mario Berrios MD [address] [place] [address] Essential (primary) hypertension Social History [...] hypertension documented in this encounter Care Teams Folding Machine Feeder Relationship Specialty Start Date End Date Mario Berrios MD [address] [place] [address] PCP - General Internal Medicine 04/04/25 documented as of this encounter
[2025-07-28 15:48] VITALS: BP 138/66; PULSE 91; RESP 16; TEMP 36.4; O2SAT 97
--- NOTE | 2025-07-28 15:50 | PC.NURSE ---
PT ASSISTED TO THE BEDSIDE COMMODE TO VOID. SHE REQUIRED STAND BY ASSIST WITHOUT NOTABLE UNSTEADINESS, NO LOSS OF BALANCE
--- NOTE | 2025-07-28 15:58 | ED.ABDPAIN ---
HPI - Abdominal Pain General Chief Complaint: Abdominal Pain Stated Complaint: LOW ABD [id number],H/O CA,POOR PO INTAKE PER EMS Time Seen by Provider: 07/28/25 15:49 Source: patient, EMS and old records reviewed Mode of arrival: EMS Limitations: no limitations History of Present Illness ED Provider: DR. Lundberg HPI narrative: 84-year-old female with PMHx AFib on Eliquis, mm with multiple thoracic and lumbar metastatic lesion, T2 DM, HLD, melanoma on chemotherapy. Patient presented from home for evaluation abdominal pain for the past 2-3 days, patient takes pain medication for malignancy thinks she has constipation. Last bowel movement was this, +passing flatus and burping, past surgical history significant for hysterectomy, no dysuria, no frequency urination, no hematuria. No fever, no chills. Patient while in the ED reported improvement of the abdominal pain, no CP, no SOB. Related Data Home Medications ?Medication ?Instructions ?Recorded ?Confirmed omeprazole 20 mg capsule,delayed 20 mg PO DAILY@0630 03/19/25 07/22/25 release Lactobacillus rhamnosus GG 10 1 cap PO BID 05/22/25 07/22/25 billion cell capsule (Culturelle) atorvastatin 10 mg tablet (Lipitor) 10 mg PO BEDTIME 05/22/25 07/22/25 Previous Rx's ?Medication ?Instructions ?Recorded apixaban 5 mg tablet 5 mg PO BID #180 tabs 01/26/25 digoxin 125 mcg (0.125 mg) tablet 0.125 mg PO DAILY #30 tabs 06/24/25 furosemide 20 mg tablet (Lasix) 20 mg PO Q OTHER DAY #60 tabs 06/24/25 empagliflozin 10 mg tablet 10 mg PO DAILY #90 tabs 06/26/25 (Jardiance) ondansetron 8 mg disintegrating 8 mg PO Q8H PRN Nausea And 07/08/25 tablet Vomiting #30 tabs metoprolol succinate 100 mg 100 mg PO BID #60 tabs 07/22/25 tablet,extended release 24 hr oxycodone 5 mg tablet 5 mg PO Q8H PRN back pain #30 tabs 07/23/25 Allergies Allergy/AdvReac Type Severity Reaction Status Date / Time hydralazine Allergy Unknown Verified 07/28/25 12:00 hydrochlorothiazide AdvReac Intermediate Palpitation Verified 07/28/25 12:00 s amlodipine AdvReac DIZZINESS Verified 07/28/25 12:00 sotalol AdvReac Palpitation Verified 07/28/25 12:00 s Review of Systems Review of Systems All other systems are reviewed and are negative Constitutional: Reports as per HPI and Reports no additional constitutional complaints Eyes: Reports as per HPI and Reports no additional eye complaints Reports system reviewed and no additional complaints, except as documented Cardiovascular: Reports as per HPI and Reports no additional cardiovascular complaints Respiratory: Reports as per HPI and Reports no additional respiratory complaints Gastrointestinal: Reports as per HPI and Reports no additional gastrointestinal complaints Genitourinary: Reports no additional female genitourinary complaints Musculoskeletal: Reports no additional musculoskeletal complaints Skin/Breast: Reports system reviewed and no additional complaints, except as docu Psychiatric: Reports no additional psychiatric complaints Endocrine: Reports no additional endocrine complaints Hematologic/Lymphatic: Reports no additional hematologic/lymphatic complaints Allergic/Immunologic: Reports no additional allergic/immunologic complaints Reports system reviewed and no additional complaints, except as documented and Reports Abnormal speech present [facility] Past Medical History Medical History CHF (congestive heart failure) Paroxysmal atrial fibrillation Atrial fibrillation with RVR Hyponatremia DM type 2 (diabetes mellitus, type 2) Spinal stenosis 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 Lesion of bone of lumbosacral spine Multiple myeloma Lower back pain Impacted cerumen of both ears Dysplastic nevus Vitamin D deficiency Annual physical exam Palpitations Leukoplakia of tongue Hyperlipidemia Peripheral neuropathy Dysuria Surgical History H/O arthroscopy of knee H/O varicose vein ligation H/O: hysterectomy H/O mastectomy H/O colonoscopy Family History Family History Father No problems noted. Mother No problems noted. Son Diabetes Social History Social History Household Members: Family Household Members Other:: d/c from [facility] 05/06 staying w/ daughter Barbara at this time. Housing: House Do you presently have visiting nurse or other home services: No Alcohol intake: former Patient Tobacco Use Status: Never used Tobacco Smoked in Last 30 Days: No e-Cigarette/Vaping Use: Never Used Second Hand Smoke Exposure: No Use of substances other than those prescribed or required for medical reasons: No Advance Directives: Yes Advance Directives on File: Yes Advance Directives Date on File: 12/10/24 Do you have a plan to hurt others: No Plan service: No Current occupational status: retired Gender identity: Female Cognitive needs: No Hearing needs: No Vision needs: Yes Physical Exam ED Vital Signs: Vital Signs - 24 hr 07/28/25 11:56 07/28/25 15:48 Temperature 98 F 97.5 F Pulse Rate 87 91 Respiratory Rate 18 16 Blood Pressure 147/97 H 138/66 Pulse Oximetry 98 97 Oxygen Delivery Method Room Air Room Air BMI result Body Mass Index 21.8 Vital signs have been reviewed and appear to be correct. Blood pressure elevated. Heart rate normal. Respiratory rate normal. Temperature normal. Oxygen saturation normal. Appearance: Alert. Oriented X3. No acute distress. Head: Normal external exam. Normocephalic. Atraumatic. No Ojeda signs noted. No raccoon eyes noted Eyes: PERRLA. EOMI. Conjunctiva and sclera normal. Eyelids normal. ENT: TM's Normal. Pharynx normal. Uvula midline. Moist mucous membranes. No trismus noted. No drooling noted. No muffled voice noted. Neck: Normal inspection. Neck supple. FROM. No adenopathy. Thyroid Normal. No meningeal signs. No neck mass noted. CVS: Normal heart rate and rhythm. Heart sound normal. No murmurs noted. Pulses normal throughout. Respiratory: No respiratory distress. Painless inspiration. Breath sounds normal. No wheezes/rales/rhonchi noted. Chest nontender. No accessory muscle usage noted or decreased air movement noted. Abdomen: Soft and nontender. Bowel sounds normal in all 4 quadrants. No distention noted. No organomegaly noted. No visible injury noted. Back: No CVA tenderness. Full range of motion noted. Skin: Skin warm and dry. Normal skin color. Normal skin turgor. No rashes/lesions/lacerations noted. Extremities: No lower extremity edema. Extremities exhibit normal range of motion. Extremities nontender. Neuro: Oriented X 3. Cranial nerve exam: II-XII are grossly intact No motor deficit. No sensory deficit. Reflexes normal. Course Reevaluation(s) Reevaluation #1: 84-year-old female came in for abdominal pain, no SIRS criteria, CT reveals diverticulitis versus colitis with 2.5 cm collection suspicion for abscess. Case discussed with Dr. Garcia who recommended to admit the patient to medical service for IV antibiotic. Time: 19:06 Medical Decision Making Differential Diagnosis Differential Diagnoses: The differential diagnosis associated with the presentation includes (Diverticulitis, colitis, intra-abdominal abscess, UTI, electrolyte derangement, severe anemia, pancreatitis.) Admission/Observation Consideration of admission/observation: Escalation of care including admission/observation considered Consult Healthcare Provider Management of the patient was discussed with: Hospitalist (Dr. Mckeon) and [employer] (Dr. Garcia) Lab Data MDM Lab Attestation statement: I reviewed the patient's lab results. 07/28/25 12:11 07/28/25 12:11 Labs: Lab Results 07/28/25 07/28/25 07/28/25 Range/Units 12:11 18:15 18:31 WBC 7.2 (4.8-10.8) X10*3/uL RBC 4.04 L (4.20-5.50) X10*6/uL Hgb 12.6 (12.0-16.0) g/dl Hct 37.5 (37.0-47.0) % MCV 92.8 (80.0-98.0) fL MCH 31.2 (27.0-33.0) pg MCHC 33.6 (31.0-35.0) g/dl RDW 13.9 (11.0-16.0) % Plt Count 89 L D (160-400) X10*3/uL MPV 12.1 (9.4-12.3) fL Immature Gran % (Auto) 0.6 H (0.0-0.4) % Neut % (Auto) 74.6 H (45-73) % Lymph % (Auto) 10.8 L (20-40) % [place] % (Auto) 13.5 H (2-11) % Eos % (Auto) 0.4 (0-4) % Baso % (Auto) 0.1 (0-2) % Lymph # (Auto) 0.8 L (1.2-4.9) X10*3/uL [place] # (Auto) 1.0 (0.1-1.2) X10*3/uL Eos # (Auto) 0.0 (0.0-0.4) X10*3/uL Baso # (Auto) 0.0 (0.0-0.2) X10*3/uL Abs Immat Gran (auto) 0.04 H (0.00-0.03) X10*3/uL Absolute Neuts (auto) 5.4 (2.0-8.3) x10*3/uL Absolute Nucleated RBC 0.030 H (0.0-0.012) X10*3/uL Nucleated RBC % (auto) 0.4 H (0.0-0.2) /100WBC Smear Tech's Comments VERIFIED PT 23.3 H (11.2-13.5) SEC INR 1.9 H (0.9-1.1) Sodium 130 L (135-145) mmol/L Potassium 4.0 (3.3-5.1) mmol/L Chloride 97 (96-108) mmol/L Carbon Dioxide 27 (22-29) mmol/L Anion Gap 10 L (12-20) BUN 12 (9-16) mg/dL Creatinine 0.61 (0.5-1.4) mg/dL Estim Creat Clear Calc 63.1 Estimated GFR > 60 Random Glucose 107 (60-115) mg/dL Lactic Acid 1.6 (0.5-2.0) mmol/L Calcium 8.8 (8.4-10.2) mg/dL Troponin I High Sens 9.8 D (<3.5-17.0) ng/L Urine Color Yellow Urine Appearance Clear Urine pH 6.5 (5.0-9.0) Ur Specific [place] >= 1.030 H (1.005-1.025) Urine Protein Negative (Neg-Trace) mg/dL Urine Glucose (UA) 500 H (Negative) mg/dL Urine Ketones 15 (Negative) mg/dL Urine Blood Negative (Negative) Urine Nitrite Positive H (Negative) Ur Leukocyte Esterase Negative (Negative) Urine RBC 0-2 (0-2) /HPF Urine WBC 6-10 H (0-5) /HPF Ur Squamous Epith Cells 0-2 (0-2) /HPF Urine Bacteria 4+ (None Seen) Hyaline Casts 0-2 (0-2) /LPF Independent Interpretation I performed an independent interpretation of an: CT Scan (Abdomen and pelvis:Diverticulitis or colitis of the sigmoid colon. 2.5 cm collection adjacent to the anterior sigmoid colon and posterior dome of the bladder suggestive of abscess or impending colovesicular fistula. There is adjacent wall thickening of the dome of the bladder and tiny amount of ) Radiology Impression Discussion of test interpretation with radiology: I have reviewed the radiologist's reading. Medications Administered Discontinued Medications Generic Name Dose Route Start Last Admin Trade Name Freq PRN Reason Stop Dose Admin Sodium Chloride 500 mls @ 999 mls/hr 07/28/25 16:45 07/28/25 17:07 Ns IV 07/28/25 17:15 Infused .Q31M CIELO Infusion Lactated Ringer's 1,000 mls @ 999 mls/hr 07/28/25 18:15 07/28/25 18:39 Lr IV 07/28/25 19:15 0 mls/hr .Q1H1M CIELO Infusion Piperacillin Sod/Tazobactam 50 mls @ 100 mls/hr 07/28/25 18:01 07/28/25 18:40 Sod 3.375 gm/ Sodium Chloride IV 07/28/25 18:30 100 mls/hr ONCE ONE Administration Iohexol 100 ml 07/28/25 16:19 07/28/25 16:20 Iohexol 350 Mg/Ml 100 Ml Infus..Btl IV 07/28/25 16:20 85 ml ONCE ONE Administration Discharge Plan Discharge Clinical Impression: Diverticulitis of intestine with abscess Patient Disposition: Admitted As Inpatient Print Language: Lao
[2025-07-28] MEDS: iohexoL 350 MG/ML 100 ML INFUS..BTL IV (16:20)
[2025-07-28] MEDS: Lactated Ringers 1,000 ML 999 ML IV (18:39)
[2025-07-28 18:42] LABS: Appearance Urine Clear; Glucose Urine UA 500 mg/dL (Negative); PH 6.5 (5.0-9.0); Specific Gravity - Urine >= 1.030 (1.005-1.025); UMIC TRIGGER UACC YES
[2025-07-28 19:08] LABS: UACC Culture Trigger YES
--- NOTE | 2025-07-28 19:45 | PM.IMHP ---
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 The pain started almost a week ago but was stable and generalized but mainly in the lower abdomen. patient believed her symptoms were related to constipation due to chronic opioid use for malignancy-related pain. She reports her last bowel movement was earlier today and continues to pass flatus and burp. She denies nausea, vomiting, dysuria, hematuria, urinary frequency, fever, or chills. Past surgical history includes hysterectomy. In the emergency department, her abdominal pain improved and She remained hemodynamically stable with no chest pain or shortness of breath. CT abdomen and pelvis demonstrated findings concerning for diverticulitis versus colitis with a 2.5 cm collection suspicious for abscess formation. The case was discussed with Dr. Garcia, who recommended admission to the medical service for IV antibiotic therapy and further management. CT scan of abdomen showing: Diverticulitis or colitis of the sigmoid colon. 2.5 cm collection adjacent to the anterior sigmoid colon and posterior dome of the bladder suggestive of abscess or impending colovesicular fistula. There is adjacent wall thickening of the dome of the bladder and tiny amount of air in the bladder. There may also be involvement of the left adnexa. No free air. Fatty liver. Bilateral renal cysts. and Severe demineralization. Partially visualized but similar-appearing lytic lesion in the T9 vertebral body and left iliac crest. Increased moderate to severe T12 vertebral body compression fracture that may be recent. Mild L1-L3 vertebral body compression fractures not appreciably changed. Hospitalist team asked to admit her for monitoring and further work up. Review of Systems Review of Systems: No fever, chills or weakness No chest pain, palpitation No shortness of breath or coughing reporting abdominal pain, no nausea or vomiting No urinary symptoms No any rash or wounds PMFSH Medical History CHF (congestive heart failure) Paroxysmal atrial fibrillation Atrial fibrillation with RVR Hyponatremia DM type 2 (diabetes mellitus, type 2) Spinal stenosis 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 Lesion of bone of lumbosacral spine Multiple myeloma Lower back pain Impacted cerumen of both ears Dysplastic nevus Vitamin D deficiency Annual physical exam Palpitations Leukoplakia of tongue Hyperlipidemia Peripheral neuropathy Dysuria Family History Father No problems noted. Mother No problems noted. Son Diabetes Surgical History H/O arthroscopy of knee H/O varicose vein ligation H/O: hysterectomy H/O mastectomy H/O colonoscopy Social History Household Members: Family Household Members Other:: d/c from [facility] 05/06 staying w/ daughter Barbara at this time. Housing: House Do you presently have visiting nurse or other home services: No Alcohol intake: former Patient Tobacco Use Status: Never used Tobacco Smoked in Last 30 Days: No e-Cigarette/Vaping Use: Never Used Second Hand Smoke Exposure: No Use of substances other than those prescribed or required for medical reasons: No Advance Directives: Yes Advance Directives on File: Yes Advance Directives Date on File: 12/10/24 Do you have a plan to hurt others: No Plan service: No Current occupational status: retired Gender identity: Female Cognitive needs: No Hearing needs: No Vision needs: Yes Meds Allergies Allergy/AdvReac Type Severity Reaction Status Date / Time hydralazine Allergy Unknown Verified 07/28/25 12:00 hydrochlorothiazide AdvReac Intermediate Palpitation Verified 07/28/25 12:00 s amlodipine AdvReac DIZZINESS Verified 07/28/25 12:00 sotalol AdvReac Palpitation Verified 07/28/25 12:00 s Home Medications ?Medication ?Instructions ?Recorded ?Confirmed ?Last Taken ?Type omeprazole 20 mg capsule,delayed 20 mg PO DAILY@0630 03/19/25 07/28/25 07/28/25 History release Lactobacillus rhamnosus GG 10 1 cap PO BID 05/22/25 07/28/25 07/27/25 History billion cell capsule (Culturelle) atorvastatin 10 mg tablet (Lipitor) 10 mg PO BEDTIME 05/22/25 07/28/25 07/27/25 History furosemide 20 mg tablet (Lasix) 20 mg PO DAILY PRN Fluid Retention 07/28/25 07/28/25 Unknown History metoprolol succinate 50 mg 50 mg PO BID 07/28/25 07/28/25 07/28/25 History tablet,extended release 24 hr Physical Exam Vital Signs and Narrative: Vital Signs: Last Vital Signs Temp 97.5 F 07/28/25 15:48 Pulse 91 07/28/25 15:48 Resp 16 07/28/25 15:48 BP 138/66 07/28/25 15:48 Pulse Ox 97 07/28/25 15:48 O2 Del Method Room Air 07/28/25 15:48 BMI result Body Mass Index 21.8 Const: Other: Constitutional : interactive, not in distress Cardiovascular : no JVP, no lower extremity edema Respiratory : bilateral chest movement, not in resp distress Gastrointestinal: soft, lax, Non tender overall , no distension Skin : Warm, Dry Neurological : Alert & oriented , No focal deficit Results Labs 07/28/25 12:11 07/28/25 12:11 Labs: Laboratory Results - last 24 hr 07/28/25 07/28/25 07/28/25 12:11 18:15 18:31 MCV 92.8 MCH 31.2 MCHC 33.6 RDW 13.9 Plt Count 89 L D MPV 12.1 Immature Gran % (Auto) 0.6 H Neut % (Auto) 74.6 H Lymph % (Auto) 10.8 L [place] % (Auto) 13.5 H Eos % (Auto) 0.4 Baso % (Auto) 0.1 Lymph # (Auto) 0.8 L [place] # (Auto) 1.0 Eos # (Auto) 0.0 Baso # (Auto) 0.0 Abs Immat Gran (auto) 0.04 H Absolute Neuts (auto) 5.4 Absolute Nucleated RBC 0.030 H Nucleated RBC % (auto) 0.4 H Smear Tech's Comments VERIFIED PT 23.3 H INR 1.9 H Anion Gap 10 L Estim Creat Clear Calc 63.1 Estimated GFR > 60 Random Glucose 107 Lactic Acid 1.6 Calcium 8.8 Troponin I High Sens 9.8 D Urine Color Yellow Urine Appearance Clear Urine pH 6.5 Ur Specific [place] >= 1.030 H Urine Protein Negative Urine Glucose (UA) 500 H Urine Ketones 15 Urine Blood Negative Urine Nitrite Positive H Ur Leukocyte Esterase Negative Urine RBC 0-2 Urine WBC 6-10 H Ur Squamous Epith Cells 0-2 Urine Bacteria 4+ Hyaline Casts 0-2 Imaging Radiologist's Impressions: Impressions Abdomen/Pelvis CT 07/28/25 16:16 IMPRESSION: Diverticulitis or colitis of the sigmoid colon. 2.5 cm collection adjacent to the anterior sigmoid colon and posterior dome of the bladder suggestive of abscess or impending colovesicular fistula. There is adjacent wall thickening of the dome of the bladder and tiny amount of air in the bladder. There may also be involvement of the left adnexa. No free air. Fatty liver. Bilateral renal cysts. Severe demineralization. Partially visualized but similar-appearing lytic lesion in the T9 vertebral body and left iliac crest. Increased moderate to severe T12 vertebral body compression fracture that may be recent. Mild L1-L3 vertebral body compression fractures not appreciably changed. 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 Acute Diverticulitis\colitis with abscess formation Not septic pending cultures on IV fluids clear liquid diet surgery consult IV Zosyn Acute hyponatremia Na of 130 To replace and repeat Thrombocytopenia PLT of 89 from baseline of 156 likely MM treatment related, continue to monitor no evidence of bleeding Bacteruria No reported urinary symptoms follow Cx Hx Afib Continue Eliquis , Digoxin and Metoprolol HFpEF not in exacerbation watch for fluid overload and DC IVF soon Hx MM with multiple thoracic and lumbar metastatic lesions causing chronic back pain. follows with dr Watts PRFer Oxycodone for pain HTN, HLD Statin, Lisinopril GERD Omeprazole DVT PPx: Eliquis Code status: Full code MED REC PENDING!! The patient will likely need 2 overnight hospital stay for treatment of diverticulitis with abscess pending surgery evaluation and cultures. Quality Stroke Does the patient have a stroke diagnosis?: No VTE Prior VTE?: No VTE Risk Level:: Medical - moderate - high VTE Device Contraindication: Treatment Not Indicated VTE Drug Contraindication: N/A - Med Ordered
[2025-07-28 20:34] VITALS: BP 146/84; PULSE 78; RESP 16; TEMP 36.3; O2SAT 97
--- NOTE | 2025-07-28 20:57 | HO.NURTONUR ---
Report given to Chel FORMAN in overflow, questions answered. Awaiting transport
--- NOTE | 2025-07-28 21:25 | PHA.MEDREC ---
Addendum entered by Opal Virgen RPh 07/28/25 21:40: Reviewed by [facility] Original Note: Pharmacy Consult ? Medication Reconciliation Pharmacy has completed the medication reconciliation. Spoke with pt daughter Katherin ([phone]) over pt phone and she was able to confirm pt medications. 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 she no longer takes Lisinopril and is taking Metoprolol; pt just got increased from Metoprolol 50mg BID to 100mg BID but daughter states pt never increased and is still taking Metoprolol 50mg BID and pt no longer taking Sodium Chloride; pt was non compliant taking it before and stopped it all together since getting sick.
[2025-07-28] MEDS: oxyCODONE HCl Immed Release 5 MG TABLET PO (21:44)
[2025-07-28] MEDS: Lactated Ringers 1,000 ML 60 ML IVCONT (21:49)
[2025-07-28 21:51] VITALS: BP 134/104; PULSE 97
[2025-07-28] MEDS: Metoprolol Succinate ER 50 MG TAB.ER.24H PO (21:51)
[2025-07-28 23:01] VITALS: PULSE 104; RESP 14; TEMP 36.2; O2SAT 95
[2025-07-28 23:49] VITALS: BMI 22.7
--- NOTE | 2025-07-29 00:08 | PC.NURSE ---
Patient arrived to ED overflow . A/O x4, pleasant and cooperative with care. Patient c/o abdominal pain. Oxycodone 5 mg po administered as per MAR with good effect. Patient able to make needs known. Safety precautions in place. Bed alarm on , call plata within reach.
[2025-07-29 00:17] LABS: Glucose, Whole Blood 87 mg/dL (60-115)
[2025-07-29 00:38] VITALS: BP 146/83; PULSE 95
[2025-07-29 04:00] VITALS: BP 146/90; PULSE 97; RESP 18; TEMP 36.3; O2SAT 97
[2025-07-29] MEDS: oxyCODONE HCl Immed Release 5 MG TABLET PO ×2 (05:04→19:11)
[2025-07-29 05:59] LABS: MANUAL DIFF FLAG NO
[2025-07-29 06:06] LABS: Hematocrit 36.7 % (37.0-47.0); Hemoglobin 12.2 g/dl (12.0-16.0); Imm Gran Abs Auto 0.08 X10*3/uL (0.00-0.03); Imm Gran Pct Auto 1.3 % (0.0-0.4); Lymphocytes Absolute Auto 1.0 X10*3/uL (1.2-4.9); Mean Corpuscular HGB Conc 33.2 g/dl (31.0-35.0); Mean Corpuscular Hemoglobin 30.4 pg (27.0-33.0); Mean Corpuscular Volume 91.5 fL (80.0-98.0); NRBC Abs Auto 0.040 X10*3/uL (0.0-0.012); NRBC Pct Auto 0.7 /100WBC (0.0-0.2); Red Blood Count 4.01 X10*6/uL (4.20-5.50); White Blood Count 6.0 X10*3/uL (4.8-10.8)
[2025-07-29 06:08] LABS: Platelet Count 79 X10*3/uL (160-400)
[2025-07-29 06:21] LABS: Alanine Aminotransferase 15 U/L (0-31); Albumin Level 3.3 g/dL (3.5-5.0); Alkaline Phosphatase 102 U/L (39-117); Anion Gap 10 (12-20); Aspartate Amino Transferase 22 U/L (5-31); Blood Urea Nitrogen 9 mg/dL (9-16); Calcium 8.3 mg/dL (8.4-10.2); Carbon Dioxide 24 mmol/L (22-29); Chloride 100 mmol/L (96-108); Creatinine Clr Calc Pharmacy 76.9; Estimated Glomerular Filt Rate > 60; Potassium 3.6 mmol/L (3.3-5.1); Sodium 130 mmol/L (135-145); Total Protein 5.6 g/dL (6.5-8.0)
[2025-07-29 07:17] VITALS: BP 149/80; PULSE 94; RESP 16; TEMP 36.9; O2SAT 96
[2025-07-29] MEDS: Metoprolol Succinate ER 50 MG TAB.ER.24H PO ×2 (07:53→20:21)
[2025-07-29 08:10] LABS: Glucose, Whole Blood 88 mg/dL (60-115)
--- NOTE | 2025-07-29 09:11 | MHC.CM.PN ---
Addendum entered by Maribell Chang 07/29/25 16:04: CORRECTION: PT IS ACTIVE WITH [facility], NOT [facility] . ACTIVE FOR SN/P.T. Original Note: IMM DELIVERED PT IS STAYING WITH HER DAUGHTER AND IS ACTIVE WITH [facility]. 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 + HCP ON FILE AND PCP DR. MARQUEZ DP: HOME WITH RESUMPTION OF [facility] IS THE GOAL. PT'S DAUGHTER WILL TRANSPORT. PT GIVES THIS CM PERMISSION TO SPEAK WITH HER DAUGHTER MIKI IF NEEDED. CM WILL CONTINUE TO FOLLOW FOR ANY CHANGE TO DC PLAN/NEEDS.
--- NOTE | 2025-07-29 11:11 | P.CONGS_ITS ---
History of Present Illness Consult details Consult date: 07/29/25 <Char Durand PA-C - Last Filed: 07/29/25 13:35> Reason for consult: other (diverticulitis with possible abscess/colovesical fistula) <Char Durand PA-C - Last Filed: 07/29/25 13:35> Requesting physician: Pelon Mckeon <Char Durand PA-C - Last Filed: 07/29/25 13:35> Narrative: 84 year old female with a significant past medical history of atrial fibrillation on Eliquis, multiple myeloma with thoracic and lumbar spine metastases, type 2 diabetes mellitus, hyperlipidemia who presented to the ED with complaints of lower abdominal pain and diarrhea. She reports about 2-3 weeks ago she had lower/left sided abd pain and constipation. She has chronic opioid use for malignancy-related pain. She took a couple tablets of sennakot and then began to have very loose stools which just resolved. She continued to have some lower abdominal discomfort that worsened this weekend. Her last chemo session was on Sunday. She therefore called her oncologist and was instructed to be evaluated in the ED. Work up included CBC, BMP, LFTs which was significant for hyponatremia. UA suggestive of UTI. CT scan abd pelvis showed wall thickening and edema of the distal left and sigmoid colon suggestive of diverticulitis/colitis with a small 2.5 cm collection adjacent to the anterior wall of the sigmoid colon and posterior dome of the bladder questionable for small abscess with adjacent wall thickening of the bladder and a tiny amount of air in the bladder. This morning she feels better overall and denies any abdominal pain. Last BM was yesterday and was more formed. She did have some blood with the diarrhea but she also reports history of hemorrhoids. Her last colonoscopy was 7-8 years ago and showed polyps. She reports one prior episode of diverticulitis last year where she was admitted for a day for IV abx. She denies fever, or chills, nausea, vomiting, dysuria, hematuria, pneumoturia, fecaluria, urinary frequency. Past surgical history includes hysterectomy. <Char Durand PA-C - Last Filed: 07/29/25 13:35> 84 year old female with a significant past medical history of atrial fibrillation on Eliquis, multiple myeloma with thoracic and lumbar spine metastases, type 2 diabetes mellitus, hyperlipidemia who presented to the ED with complaints of lower abdominal pain and diarrhea. She reports about 2-3 weeks ago she had lower/left sided abd pain and constipation. She has chronic opioid use for malignancy-related pain. She took a couple tablets of sennakot and then began to have very loose stools which just resolved. She continued to have some lower abdominal discomfort that worsened this weekend. Her last chemo session was on Sunday. She therefore called her oncologist and was instructed to be evaluated in the ED. Work up included CBC, BMP, LFTs which was significant for hyponatremia. UA suggestive of UTI. CT scan abd pelvis showed wall thickening and edema of the distal left and sigmoid colon suggestive of diverticulitis/colitis with a small 2.5 cm collection adjacent to the anterior wall of the sigmoid colon and posterior dome of the bladder questionable for small abscess with adjacent wall thickening of the bladder and a tiny amount of air in the bladder. This morning she feels better overall and denies any abdominal pain. Last BM was yesterday and was more formed. She did have some blood with the diarrhea but she also reports history of hemorrhoids. Her last colonoscopy was 7-8 years ago and showed polyps. She reports one prior episode of diverticulitis last year where she was admitted for a day for IV abx. She denies fever, or chills, nausea, vomiting, dysuria, hematuria, pneumoturia, fecaluria, urinary frequency. Past surgical history includes hysterectomy. Patient seen and examined and I agree with the above assessment and plan. Her abdomin is benign now with no palpable mass or tenderness. No surgical intervention recommended at this time, continue antibiotics. <Curly Garcia MD - Last Filed: 07/29/25 14:41> Review of Systems 2 Review of Systems: Yes all other systems are reviewed and are negative < Char Durand PA-C - Last Filed: 07/29/25 13:35> [facility] Past Medical History Medical History: Medical History CHF (congestive heart failure) Paroxysmal atrial fibrillation Atrial fibrillation with RVR Hyponatremia DM type 2 (diabetes mellitus, type 2) Spinal stenosis 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 Lesion of bone of lumbosacral spine Multiple myeloma Lower back pain Impacted cerumen of both ears Dysplastic nevus Vitamin D deficiency Annual physical exam Palpitations Leukoplakia of tongue Hyperlipidemia Peripheral neuropathy Dysuria <Char Durand PA-C - Last Filed: 07/29/25 13:35> Family History Family History: Family History Father No problems noted. Mother No problems noted. Son Diabetes <Char Durand PA-C - Last Filed: 07/29/25 13:35> Surgical History Surgical History: Surgical History H/O arthroscopy of knee H/O varicose vein ligation H/O: hysterectomy H/O mastectomy H/O colonoscopy <Char Durand PA-C - Last Filed: 07/29/25 13:35> Social History Social History: Social History Household Members: None Household Members Other:: d/c from [facility] 05/06 staying w/ daughter Barbara at this time. Housing: House Do you presently have visiting nurse or other home services: Yes ([facility]) Alcohol intake: former Patient Tobacco Use Status: Never used Tobacco e-Cigarette/Vaping Use: Never Used Second Hand Smoke Exposure: No Advance Directives Date on File: 12/10/24 service: No Current occupational status: retired Gender identity: Female Cognitive needs: No Hearing needs: No Vision needs: Yes <Char Durand PA-C - Last Filed: 07/29/25 13:35> Meds Allergies/Adverse reactions: Allergies Allergy/AdvReac Type Severity Reaction Status Date / Time hydralazine Allergy Unknown Verified 07/28/25 12:00 hydrochlorothiazide AdvReac Intermediate Palpitation Verified 07/28/25 12:00 s amlodipine AdvReac DIZZINESS Verified 07/28/25 12:00 sotalol AdvReac Palpitation Verified 07/28/25 12:00 s <DANIEL Laughlin Last Filed: 07/29/25 13:35> Active Medications: Current Medications Acetaminophen (Acetaminophen 325 Mg Tablet) 650 mg PO Q6H PRN PRN Reason: Pain, Mild 1-3,fever,headache Apixaban (Apixaban 5 Mg Tablet) 5 mg PO BID [facility] Last Admin: 07/29/25 07:54 Dose: 5 mg Atorvastatin Calcium (Atorvastatin Calcium 10 Mg Tablet) 10 mg PO BEDTIME [facility] Last Admin: 07/28/25 21:50 Dose: 10 mg Calcium Carbonate (Calcium Carbonate 750 Mg Tab.Chew) 750 mg PO Q4H PRN PRN Reason: Heartburn Dextrose (Dextrose 50 % 25 Gm/50 Ml Syringe) 25 gm IVPUSH Q15M PRN; Protocol PRN Reason: per Hypoglycemia Standing Ord. Digoxin (Digoxin 0.125 Mg Tablet) 0.125 mg PO DAILY [facility]; Protocol Last Admin: 07/29/25 07:54 Dose: 0.125 mg Empagliflozin (Empagliflozin 10 Mg Tablet) 10 mg PO DAILY [facility] Last Admin: 07/29/25 07:54 Dose: Not Given Glucose (Glucose Gel 15 Gm Gel..Gram.) 15 gm PO Q15M PRN; Protocol PRN Reason: per Hypoglycemia Standing Ord. Lactated Ringer's (Lr) 1,000 mls @ 60 mls/hr IVCONT .[id number] [facility] Stop: 07/29/25 11:40 Last Admin: 07/28/25 21:49 Dose: 60 mls/hr Piperacillin Sod/Tazobactam (Sod 3.375 gm/ Sodium Chloride) 50 mls @ 100 mls/hr IV Q6H [facility] Last Infusion: 07/29/25 05:34 Dose: Infused Magnesium Hydroxide (Milk Of Magnesia 30 Ml Oral.Susp) 30 ml PO DAILY PRN PRN Reason: Constipation Melatonin (Melatonin 3 Mg Tablet) 6 mg PO BEDTIME PRN PRN Reason: Insomnia Metoprolol Succinate (Metoprolol Succinate Er 50 Mg Tab.Er.24h) 50 mg PO BID [facility]; Protocol Last Admin: 07/29/25 07:53 Dose: 50 mg Morphine Sulfate (Morphine Sulfate 4 Mg/Ml Cartridge) 2 mg IVPUSH Q4H PRN; Protocol PRN Reason: Pain, Severe (Pain Scale 7-10) Last Admin: 07/29/25 09:36 Dose: 2 mg Omeprazole (Omeprazole 20 Mg Capsule.Dr) 20 mg PO DAILY@0630 [facility] Last Admin: 07/29/25 05:04 Dose: 20 mg Ondansetron HCl (Ondansetron Hcl 4 Mg/2 Ml Vial) 4 mg IVPUSH Q8H PRN PRN Reason: Nausea and Vomiting Oxycodone HCl (Oxycodone Hcl Immed Release 5 Mg Tablet) 5 mg PO Q6H PRN PRN Reason: back pain Sodium Chloride (0.9 % Sodium Chloride Flush 3 Ml Syringe) 3 ml IVFLUSH QSHIFT [facility] Last Admin: 07/29/25 07:51 Dose: Not Given <Char Durand PA-C - Last Filed: 07/29/25 13:35> Home medications: Home Medications ?Medication ?Instructions ?Recorded ?Confirmed ?Last Taken ?Type omeprazole 20 mg capsule,delayed 20 mg PO DAILY@0630 0 03/19/25 07/28/25 07/28/25 History release Lactobacillus rhamnosus GG 10 1 cap PO BID 05/22/2507/27/25 History billion cell capsule (Culturelle) atorvastatin 10 mg tablet (Lipitor) 10 mg PO BEDTIME 0 05/22/25 07/28/25 07/27/25 History furosemide 20 mg tablet (Lasix) 40 mg PO DAILY PRN Flu id Retention 07/28/25 07/28/25 Unknown History metoprolol succinate 50 mg 50 mg PO BID 07/28/2507/2807/28/25 History tablet,extended release 24 hr <Char Durand PA-C - Last Filed: 07/29/25 13:35> Physical Exam 2 Vital Signs: Vital Signs: Last Vital Signs Temp 98.5 F 07/29/25 07:17 Pulse 94 07/29/25 07:17 Resp 16 07/29/25 07:17 BP 149/80 H 07/29/25 07:17 Pulse Ox 96 07/29/25 07:17 O2 Del Method Room Air 07/29/25 07:17 BMI result Body Mass Index 22.7 <DANIEL Laughlin Last Filed: 07/29/25 13:35> Const: General: comfortable, no acute distress and alert <DANIEL Laughlin Last Filed: 07/29/25 13:35> Orientation/consciousness: patient oriented x3 <Char Loaizaanum HANNA - Last Filed: 07/29/25 13:35> Resp: Effort & Inspection: normal respiratory effort and able to speak in complete sentences <Char ConstantinoKATH steeleHan - Last Filed: 07/29/25 13:35> GI: Inspection: No distended and Yes scar (pfannensteil) <[facility]KATH [facility] Last Filed: 07/29/25 13:35> Palpation (GI): Soft to palpation, nontender, no guarding and not rigid < Char Constantinocedric [facility] Last Filed: 07/29/25 13:35> Percussion: Yes normal to percussion <Char ConstantinoKATH [facility]HanA[facility] Last Filed: 07/29/25 13:35> Skin: General skin exam: no rashes or lesions noted <Char [facility]inocedric [facility] Last Filed: 07/29/25 13:35> Neuro: General: patient oriented x3 and moves all extremities <Char Loaizabodeau HANNA - Last Filed: 07/29/25 13:35> Extrem: General: Yes no clubbing, cyanosis or edema <Char [facility]aanum [facility] Last Filed: 07/29/25 13:35> Results Labs Result diagrams: 07/29/25 05:34 07/29/25 05:34 <Char Constantinocedric [facility] Last Filed: 07/29/25 13:35> Labs: Abnormal lab results 07/28/25 07/28/25 07/29/25 Range/Units 12:11 18:15 05:34 RBC 4.04 L 4.01 L (4.20-5.50) X10*6/uL Hct 36.7 L (37.0-47.0) % Plt Count 89 L D 79 L (160-400) X10*3/uL Immature Gran % (Auto) 0.6 H 1.3 H (0.0-0.4) % Neut % (Auto) 74.6 H (45-73) % Lymph % (Auto) 10.8 L 15.9 L (20-40) % Clinch % (Auto) 13.5 H 13.3 H (2-11) % Lymph # (Auto) 0.8 L 1.0 L (1.2-4.9) X10*3/uL Abs Immat Gran (auto) 0.04 H 0.08 H (0.00-0.03) X10*3/uL Absolute Nucleated RBC 0.030 H 0.040 H (0.0-0.012) X10*3/uL Nucleated RBC % (auto) 0.4 H 0.7 H (0.0-0.2) /100WBC PT 23.3 H (11.2-13.5) SEC INR 1.9 H (0.9-1.1) Sodium 130 L 130 L (135-145) mmol/L Anion Gap 10 L 10 L (12-20) Calcium 8.3 L (8.4-10.2) mg/dL Total Bilirubin 1.1 H (0.0-1.0) mg/dL Total Protein 5.6 L (6.5-8.0) g/dL Albumin 3.3 L (3.5-5.0) g/dL Ur Specific [place] >= 1.030 H (1.005-1.025) Urine Glucose (UA) 500 H (Negative) mg/dL Urine Nitrite Positive H (Negative) Urine WBC 6-10 H (0-5) /HPF Short CBC 07/28/25 07/29/25 Range/Units 12:11 05:34 WBC 7.2 6.0 (4.8-10.8) X10*3/uL Hgb 12.6 12.2 (12.0-16.0) g/dl Hct 37.5 36.7 L (37.0-47.0) % Plt Count 89 L D 79 L (160-400) X10*3/uL BMP 07/28/25 07/29/25 12:11 05:34 Sodium 130 L 130 L Potassium 4.0 3.6 Chloride 97 100 Carbon Dioxide 27 24 BUN 12 9 Creatinine 0.61 0.50 Calcium 8.8 8.3 L Liver Function 07/29/25 Range/Units 05:34 Total Bilirubin 1.1 H (0.0-1.0) mg/dL AST 22 (5-31) U/L ALT 15 (0-31) U/L Alkaline Phosphatase 102 (39-117) U/L Albumin 3.3 L (3.5-5.0) g/dL Urine 07/28/25 Range/Units 18:15 Urine Color Yellow Urine Appearance Clear Urine pH 6.5 (5.0-9.0) Ur Specific [place] >= 1.030 H (1.005-1.025) Urine Protein Negative (Neg-Trace) mg/dL Urine Glucose (UA) 500 H (Negative) mg/dL All other labs normal. <Char Durand PA-C - Last Filed: 07/29/25 13:35> Imaging Abdomen CT scan report/results: report reviewed and image reviewed <DANIEL Laughlin Last Filed: 07/29/25 13:35> Additional studies: labs reviewed <Char Durand PA-C - Last Filed: 07/29/25 13:35> Assessment and Plan (1) Diverticulitis: Status: Acute <DANIEL Laughlin Last Filed: 07/29/25 13:35> 84 year old female with a significant past medical history of atrial fibrillation on Eliquis, multiple myeloma with thoracic and lumbar spine metastases, type 2 diabetes mellitus, hyperlipidemia who presented with a couple week history of lower abdominal discomfort and diarrhea with acute worsening over the weekend. CT scan shows diverticulitis with a small fluid collection at the dome of the bladder with concern for colovesical fistula. There is a small foci of air in the bladder and her urine is suggestive of UTI. She however has no urinary symptoms. IR consult was placed who feel the collection is not amenable to drainage. Recommend urology consult for possible cystoscopy to evaluate for possible fistula. Otherwise her abdomen is very benign and nontender. If there is a colovesical fistula present, may be able to proceed with sigmoid resection on an outpatient basis as she is clinically appearing well. Will continue to follow. Cont IV abx, IVF for now. Further plan dependent on clinical course and urology evaluation. <DANIEL Laughlin Last Filed: 07/29/25 13:35> Procedures Date of Service Date of Service: 07/29/25 <DANIEL Laughlin Last Filed: 07/29/25 13:35> 07/29/25 <Curly Garcia MD - Last Filed: 07/29/25 14:41>
[2025-07-29 11:17] LABS: Glucose, Whole Blood 99 mg/dL (60-115)
--- NOTE | 2025-07-29 12:55 | PM.UROCN ---
History of Present Illness Consult details Consult date: 07/29/25 Narrative: CC: Possible colovesical fistula 84-year-old female Presentation to the emergency room with for 5 days of abdominal pain Background of multiple myeloma, AF on Eliquis and type 2 diabetes Imaging performed - CT abdomen and pelvis demonstrated findings concerning for diverticulitis versus colitis with a 2.5 cm collection suspicious for abscess formation - possible early colovesical fistula White count 7, UA was not performed Patient denies pneumouria Treat conservatively with IV antibiotics Review of Systems Constitutional: Constitutional: Reports as per HPI and Reports no additional constitutional complaints Cardiovascular: Cardiovascular: Reports as per HPI and Reports no additional cardiovascular complaints Respiratory: Respiratory: Reports as per HPI and Reports no additional respiratory complaints Gastrointestinal: Gastrointestinal: Reports as per HPI and Reports no additional gastrointestinal complaints Genitourinary: Genitourinary: Reports as per HPI Musculoskeletal: Musculoskeletal: Reports no additional musculoskeletal complaints and Reports as per HPI Neurologic: Reports system reviewed and no additional complaints, except as documented and Reports as per HPI PMFSH Past Medical History Medical History CHF (congestive heart failure) Paroxysmal atrial fibrillation Atrial fibrillation with RVR Hyponatremia DM type 2 (diabetes mellitus, type 2) Spinal stenosis 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 Lesion of bone of lumbosacral spine Multiple myeloma Lower back pain Impacted cerumen of both ears Dysplastic nevus Vitamin D deficiency Annual physical exam Palpitations Leukoplakia of tongue Hyperlipidemia Peripheral neuropathy Dysuria Family History Family History Father No problems noted. Mother No problems noted. Son Diabetes Surgical History Surgical History H/O arthroscopy of knee H/O varicose vein ligation H/O: hysterectomy H/O mastectomy H/O colonoscopy Social History Social History Household Members: None Household Members Other:: d/c from [facility] 05/06 staying w/ daughter Barbara at this time. Housing: House Do you presently have visiting nurse or other home services: Yes ([facility]) Alcohol intake: former Patient Tobacco Use Status: Never used Tobacco e-Cigarette/Vaping Use: Never Used Second Hand Smoke Exposure: No Advance Directives Date on File: 12/10/24 service: No Current occupational status: retired Gender identity: Female Cognitive needs: No Hearing needs: No Vision needs: Yes Meds Allergies Allergy/AdvReac Type Severity Reaction Status Date / Time hydralazine Allergy Unknown Verified 07/28/25 12:00 hydrochlorothiazide AdvReac Intermediate Palpitation Verified 07/28/25 12:00 s amlodipine AdvReac DIZZINESS Verified 07/28/25 12:00 sotalol AdvReac Palpitation Verified 07/28/25 12:00 s Active Medications: Current Medications Acetaminophen (Acetaminophen 325 Mg Tablet) 650 mg PO Q6H PRN PRN Reason: Pain, Mild 1-3,fever,headache Apixaban (Apixaban 5 Mg Tablet) 5 mg PO BID PENDING SALE TO [facility] Last Admin: 07/29/25 07:54 Dose: 5 mg Atorvastatin Calcium (Atorvastatin Calcium 10 Mg Tablet) 10 mg PO BEDTIME CIELO Last Admin: 07/28/25 21:50 Dose: 10 mg Calcium Carbonate (Calcium Carbonate 750 Mg Tab.Chew) 750 mg PO Q4H PRN PRN Reason: Heartburn Dextrose (Dextrose 50 % 25 Gm/50 Ml Syringe) 25 gm IVPUSH Q15M PRN; Protocol PRN Reason: per Hypoglycemia Standing Ord. Digoxin (Digoxin 0.125 Mg Tablet) 0.125 mg PO DAILY [facility]; Protocol Last Admin: 07/29/25 07:54 Dose: 0.125 mg Glucose (Glucose Gel 15 Gm Gel..Gram.) 15 gm PO Q15M PRN; Protocol PRN Reason: per Hypoglycemia Standing Ord. Piperacillin Sod/Tazobactam (Sod 3.375 gm/ Sodium Chloride) 50 mls @ 100 mls/hr IV Q6H [facility] Last Infusion: 07/29/25 12:36 Dose: Infused Magnesium Hydroxide (Milk Of Magnesia 30 Ml Oral.Susp) 30 ml PO DAILY PRN PRN Reason: Constipation Melatonin (Melatonin 3 Mg Tablet) 6 mg PO BEDTIME PRN PRN Reason: Insomnia Metoprolol Succinate (Metoprolol Succinate Er 50 Mg Tab.Er.24h) 50 mg PO BID [facility]; Protocol Last Admin: 07/29/25 07:53 Dose: 50 mg Morphine Sulfate (Morphine Sulfate 4 Mg/Ml Cartridge) 2 mg IVPUSH Q4H PRN; Protocol PRN Reason: Pain, Severe (Pain Scale 7-10) Last Admin: 07/29/25 09:36 Dose: 2 mg Omeprazole (Omeprazole 20 Mg Capsule.Dr) 20 mg PO DAILY@0630 [facility] Last Admin: 07/29/25 05:04 Dose: 20 mg Ondansetron HCl (Ondansetron Hcl 4 Mg/2 Ml Vial) 4 mg IVPUSH Q8H PRN PRN Reason: Nausea and Vomiting Oxycodone HCl (Oxycodone Hcl Immed Release 5 Mg Tablet) 5 mg PO Q6H PRN PRN Reason: back pain Sodium Chloride (0.9 % Sodium Chloride Flush 3 Ml Syringe) 3 ml IVFLUSH QSHIFT [facility] Last Admin: 07/29/25 07:51 Dose: Not Given Home Medications ?Medication ?Instructions ?Recorded ?Confirmed ?Last Taken ?Type omeprazole 20 mg capsule,delayed 20 mg PO DAILY@0630 03/19/25 07/28/25 07/28/25 History release Lactobacillus rhamnosus GG 10 1 cap PO BID 05/22/25 07/28/25 07/27/25 History billion cell capsule (Culturelle) atorvastatin 10 mg tablet (Lipitor) 10 mg PO BEDTIME 05/22/25 07/28/25 07/27/25 History furosemide 20 mg tablet (Lasix) 40 mg PO DAILY PRN Fluid Retention 07/28/25 07/28/25 Unknown History metoprolol succinate 50 mg 50 mg PO BID 07/28/25 07/28/25 07/28/25 History tablet,extended release 24 hr Physical Exam Vital Signs: Vital Signs: Last Vital Signs Temp 98.5 F 07/29/25 07:17 Pulse 94 07/29/25 07:17 Resp 16 07/29/25 07:17 BP 149/80 H 07/29/25 07:17 Pulse Ox 96 07/29/25 07:17 O2 Del Method Room Air 07/29/25 07:17 BMI result Body Mass Index 22.7 Const: General: cooperative, healthy appearing, comfortable and no acute distress Orientation/consciousness: patient oriented x3 HEENT: Face and sinus: Yes normal facial exam Mouth: moist mucous membranes Neck: Neck: Yes normal visual inspection, Yes full ROM and Yes trachea midline Chest: Chest palpation & inspection: normal inspection of the chest Resp: Effort & Inspection: normal respiratory effort, able to speak in complete sentences and no respiratory distress GI: Inspection: Yes normal to inspection Back/Spine/Pelvis: Cervical Spine: normal cervical lordosis Thoracic/Lumbar Spine: thoracic and lumbar spine normal to inspection Skin: General skin exam: no rashes or lesions noted Neuro: General: patient oriented x3, tone normal and moves all extremities Extrem: General: Yes normal to inspection and Yes capillary refill normal Results Labs 07/30/25 08:24 07/30/25 08:24 Labs: Abnormal lab results 07/28/25 07/28/25 07/29/25 Range/Units 12:11 18:15 05:34 RBC 4.01 L (4.20-5.50) X10*6/uL Hct 36.7 L (37.0-47.0) % Plt Count 89 L D 79 L (160-400) X10*3/uL Immature Gran % (Auto) 0.6 H 1.3 H (0.0-0.4) % Neut % (Auto) 74.6 H (45-73) % Lymph % (Auto) 10.8 L 15.9 L (20-40) % [place] % (Auto) 13.5 H 13.3 H (2-11) % Lymph # (Auto) 0.8 L 1.0 L (1.2-4.9) X10*3/uL Abs Immat Gran (auto) 0.04 H 0.08 H (0.00-0.03) X10*3/uL Absolute Nucleated RBC 0.030 H 0.040 H (0.0-0.012) X10*3/uL Nucleated RBC % (auto) 0.4 H 0.7 H (0.0-0.2) /100WBC PT 23.3 H (11.2-13.5) SEC INR 1.9 H (0.9-1.1) Sodium 130 L (135-145) mmol/L Anion Gap 10 L (12-20) Calcium 8.3 L (8.4-10.2) mg/dL Total Bilirubin 1.1 H (0.0-1.0) mg/dL Total Protein 5.6 L (6.5-8.0) g/dL Albumin 3.3 L (3.5-5.0) g/dL Ur Specific [place] >= 1.030 H (1.005-1.025) Urine Glucose (UA) 500 H (Negative) mg/dL Urine Nitrite Positive H (Negative) Urine WBC 6-10 H (0-5) /HPF Short CBC 07/28/25 07/29/25 Range/Units 12:11 05:34 WBC 6.0 (4.8-10.8) X10*3/uL Hgb 12.2 (12.0-16.0) g/dl Hct 36.7 L (37.0-47.0) % Plt Count 89 L D 79 L (160-400) X10*3/uL BMP 07/29/25 05:34 Sodium 130 L Potassium 3.6 Chloride 100 Carbon Dioxide 24 BUN 9 Creatinine 0.50 Calcium 8.3 L Liver Function 07/29/25 Range/Units 05:34 Total Bilirubin 1.1 H (0.0-1.0) mg/dL AST 22 (5-31) U/L ALT 15 (0-31) U/L Alkaline Phosphatase 102 (39-117) U/L Albumin 3.3 L (3.5-5.0) g/dL Urine 07/28/25 Range/Units 18:15 Urine Color Yellow Urine Appearance Clear Urine pH 6.5 (5.0-9.0) Ur Specific [place] >= 1.030 H (1.005-1.025) Urine Protein Negative (Neg-Trace) mg/dL Urine Glucose (UA) 500 H (Negative) mg/dL All other labs normal. Assessment and Plan (1) Colovesical fistula: Status: Acute Plan IV antibiotics Check UA If minimal improvement we will need cystoscopy to check bladder Procedures Date of Service Date of Service: 07/30/25
[2025-07-29 13:55] VITALS: BMI 22.7
--- NOTE | 2025-07-29 14:02 | MHC.CLN ---
NUTRITION CURRENTLY NPO. PATIENT WITH DIVERTICULITIS AND ABSCESS. SIGNIFICANT WEIGHT LOSS X 6 MONTHS, -11.6%. DX METASTATIC CANCER. FOLOW FOR DIET ADVANCEMENT AND PO INTAKE. SEE CLINICAL NUTRITION ASSESSMENT.
[2025-07-29 15:23] VITALS: BP 154/76; PULSE 90; RESP 16; TEMP 36.9; O2SAT 96
[2025-07-29 16:16] LABS: Glucose, Whole Blood 83 mg/dL (60-115)
--- NOTE | 2025-07-29 16:50 | P.PNIM_ITS ---
Subjective Subjective Date of Service: 07/29/25 Interval History: Acute Diverticulitis\colitis with abscess formation Review of Systems abd pain -left side no fever Review of Systems: Yes all other systems are reviewed and are negative Physical Exam 2 Exam: Exam: Appearance: Alert.? Oriented X3.? cvs: rrr, [id number] . res: clear to auscultation ,no rhonchii or wheezing abd: no rebound or guarding ,llq pain, bs present. ext pulses present , no cyanosis . neuro: axo3 , nonfocal. Vital Signs: Vital Signs: Last Vital Signs Temp 98.4 F 07/29/25 15:23 Pulse 90 07/29/25 15:23 Resp 16 07/29/25 15:23 BP 154/76 H 07/29/25 15:23 Pulse Ox 96 07/29/25 15:23 O2 Del Method Room Air 07/29/25 15:23 BMI result Body Mass Index 22.7 Objective Data Active Medications Acetaminophen (Acetaminophen 325 Mg Tablet) 650 mg PO Q6H PRN PRN Reason: Pain, Mild 1-3,fever,headache Apixaban (Apixaban 5 Mg Tablet) 5 mg PO BID [facility] Last Admin: 07/29/25 07:54 Dose: 5 mg Documented By: SUNDAR Atorvastatin Calcium (Atorvastatin Calcium 10 Mg Tablet) 10 mg PO BEDTIME CIELO Last Admin: 07/28/25 21:50 Dose: 10 mg Documented By: LELAND Calcium Carbonate (Calcium Carbonate 750 Mg Tab.Chew) 750 mg PO Q4H PRN PRN Reason: Heartburn Dextrose (Dextrose 50 % 25 Gm/50 Ml Syringe) 25 gm IVPUSH Q15M PRN; Protocol PRN Reason: per Hypoglycemia Standing Ord. Digoxin (Digoxin 0.125 Mg Tablet) 0.125 mg PO DAILY [facility]; Protocol Last Admin: 07/29/25 07:54 Dose: 0.125 mg Documented By: SUNDAR Glucose (Glucose Gel 15 Gm Gel..Gram.) 15 gm PO Q15M PRN; Protocol PRN Reason: per Hypoglycemia Standing Ord. Piperacillin Sod/Tazobactam (Sod 3.375 gm/ Sodium Chloride) 50 mls @ 100 mls/hr IV Q6H [facility] Last Infusion: 07/29/25 12:36 Dose: Infused Documented By: SUNDAR Magnesium Hydroxide (Milk Of Magnesia 30 Ml Oral.Susp) 30 ml PO DAILY PRN PRN Reason: Constipation Melatonin (Melatonin 3 Mg Tablet) 6 mg PO BEDTIME PRN PRN Reason: Insomnia Metoprolol Succinate (Metoprolol Succinate Er 50 Mg Tab.Er.24h) 50 mg PO BID [facility]; Protocol Last Admin: 07/29/25 07:53 Dose: 50 mg Documented By: SUNDAR Morphine Sulfate (Morphine Sulfate 4 Mg/Ml Cartridge) 2 mg IVPUSH Q4H PRN; Protocol PRN Reason: Pain, Severe (Pain Scale 7-10) Last Admin: 07/29/25 09:36 Dose: 2 mg Documented By: SUNDAR Omeprazole (Omeprazole 20 Mg Capsule.Dr) 20 mg PO DAILY@0630 [facility] Last Admin: 07/29/25 05:04 Dose: 20 mg Documented By: SUNDAR Ondansetron HCl (Ondansetron Hcl 4 Mg/2 Ml Vial) 4 mg IVPUSH Q8H PRN PRN Reason: Nausea and Vomiting Oxycodone HCl (Oxycodone Hcl Immed Release 5 Mg Tablet) 5 mg PO Q6H PRN PRN Reason: back pain Sodium Chloride (0.9 % Sodium Chloride Flush 3 Ml Syringe) 3 ml IVFLUSH QSHIFT [facility] Last Admin: 07/29/25 07:51 Dose: Not Given Documented By: SUNDAR Non-Admin Reason: IV Running Labs 07/29/25 05:34 07/29/25 05:34 Labs: Laboratory Results - last 24 hr 07/28/25 07/28/25 07/29/25 18:15 18:31 00:13 MCV MCH MCHC RDW Plt Count MPV Immature Gran % (Auto) Neut % (Auto) Lymph % (Auto) [place] % (Auto) Eos % (Auto) Baso % (Auto) Lymph # (Auto) [place] # (Auto) Eos # (Auto) Baso # (Auto) Abs Immat Gran (auto) Absolute Neuts (auto) Absolute Nucleated RBC Nucleated RBC % (auto) Anion Gap Estim Creat Clear Calc Estimated GFR POC Glucose 87 Random Glucose Lactic Acid 1.6 Calcium Total Bilirubin AST ALT Alkaline Phosphatase Total Protein Albumin Urine Color Yellow Urine Appearance Clear Urine pH 6.5 Ur Specific [place] >= 1.030 H Urine Protein Negative Urine Glucose (UA) 500 H Urine Ketones 15 Urine Blood Negative Urine Nitrite Positive H Ur Leukocyte Esterase Negative Urine RBC 0-2 Urine WBC 6-10 H Ur Squamous Epith Cells 0-2 Urine Bacteria 4+ Hyaline Casts 0-2 07/29/25 07/29/25 07/29/25 05:34 08:06 11:12 MCV 91.5 MCH 30.4 MCHC 33.2 RDW 13.8 Plt Count 79 L MPV 11.9 Immature Gran % (Auto) 1.3 H Neut % (Auto) 65.9 Lymph % (Auto) 15.9 L [place] % (Auto) 13.3 H Eos % (Auto) 3.3 Baso % (Auto) 0.3 Lymph # (Auto) 1.0 L [place] # (Auto) 0.8 Eos # (Auto) 0.2 Baso # (Auto) 0.0 Abs Immat Gran (auto) 0.08 H Absolute Neuts (auto) 4.0 Absolute Nucleated RBC 0.040 H Nucleated RBC % (auto) 0.7 H Anion Gap 10 L Estim Creat Clear Calc 76.9 Estimated GFR > 60 POC Glucose 88 99 Random Glucose 92 Lactic Acid Calcium 8.3 L Total Bilirubin 1.1 H AST 22 ALT 15 Alkaline Phosphatase 102 Total Protein 5.6 L Albumin 3.3 L Urine Color Urine Appearance Urine pH Ur Specific [place] Urine Protein Urine Glucose (UA) Urine Ketones Urine Blood Urine Nitrite Ur Leukocyte Esterase Urine RBC Urine WBC Ur Squamous Epith Cells Urine Bacteria Hyaline Casts 07/29/25 16:12 MCV MCH MCHC RDW Plt Count MPV Immature Gran % (Auto) Neut % (Auto) Lymph % (Auto) [place] % (Auto) Eos % (Auto) Baso % (Auto) Lymph # (Auto) [place] # (Auto) Eos # (Auto) Baso # (Auto) Abs Immat Gran (auto) Absolute Neuts (auto) Absolute Nucleated RBC Nucleated RBC % (auto) Anion Gap Estim Creat Clear Calc Estimated GFR POC Glucose 83 Random Glucose Lactic Acid Calcium Total Bilirubin AST ALT Alkaline Phosphatase Total Protein Albumin Urine Color Urine Appearance Urine pH Ur Specific [place] Urine Protein Urine Glucose (UA) Urine Ketones Urine Blood Urine Nitrite Ur Leukocyte Esterase Urine RBC Urine WBC Ur Squamous Epith Cells Urine Bacteria Hyaline Casts Microbiology Microbiology Results: Microbiology 07/28/25 Unknown Urine Culture - Preliminary Urine clean catch - Clean Catch Midstream Culture too young to evaluate. Assessment and Plan (1) Diverticulitis of intestine with abscess: Status: Acute Plan 84-year-old female with a significant past medical history of atrial fibrillation on Eliquis, 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 Acute Diverticulitis\colitis with abscess formation Not septic pending cultures on IV fluids clear liquid diet surgery consult IV Zosyn Acute hyponatremia Na of 130 To replace and repeat Thrombocytopenia PLT of 79 from baseline of 156 likely MM treatment related, continue to monitor no evidence of bleeding Bacteruria No reported urinary symptoms follow Cx Hx Afib Continue Eliquis , Digoxin and Metoprolol HFpEF not in exacerbation watch for fluid overload and DC IVF soon Hx MM with multiple thoracic and lumbar metastatic lesions causing chronic back pain. follows with dr Watts PRN Oxycodone for pain HTN, HLD Statin, Lisinopril GERD Omeprazole DVT PPx: Eliquis Code status: Full code ongoing need of hospital stay for treatment of diverticulitis with abscess pending surgery evaluation and cultures. Quality Stroke Does the patient have a stroke diagnosis?: No VTE Prior VTE?: No VTE Risk Level:: Medical - moderate - high VTE Device Contraindication: Treatment Not Indicated VTE Drug Contraindication: N/A - Med Ordered
[2025-07-29] MEDS: Lactated Ringers 1,000 ML 80 ML IVCONT (19:15)
[2025-07-29 19:21] VITALS: BP 151/82; PULSE 87; RESP 18; TEMP 36.3; O2SAT 97
[2025-07-29 20:21] VITALS: BP 151/82; PULSE 87
[2025-07-29 20:23] LABS: Glucose, Whole Blood 81 mg/dL (60-115)
[2025-07-30] MEDS: oxyCODONE HCl Immed Release 5 MG TABLET PO (01:02)
[2025-07-30] MEDS: 0.9 % Sodium Chloride Flush 3 ML SYRINGE IVFLUSH ×3 (02:18→20:43)
[2025-07-30 03:37] VITALS: BP 135/78; PULSE 79; RESP 16; TEMP 36.1; O2SAT 97
--- NOTE | 2025-07-30 06:22 | PM.PNGS ---
Subjective Subjective Date of Service: 07/30/25 <Kerry Machuca - Last Filed: 07/30/25 07:41> 07/30/25 <Char Durand PA-C - Last Filed: 07/30/25 07:48> 07/30/25 <Roosevelt Beebe MD - Last Filed: 07/30/25 08:38> Interval history: Admission Day #2 Yesenia Fisher is a 84 y/o female with s PMH of atrial fibrillatilation, multiple myeloma, T2DM and HLD presented to the ED with lower abdominal pain and diarrhea. CT scan showed diverticulitis with concern for colovesical fistula. There was also a small foci of air in the bladder and her urine was suggestive of UTI. IV antibitoics were started and She is feeling well overall. No acute events overnight. She reports improvement in abdominal pain this morning with a pain rating of 4-5/10. She states her last BM was yesterday which was bloody diarrhea. She continues to have no uriniary symptoms. <Kerry Machuca - Last Filed: 07/30/25 07:41> Admission Day #2 Yesenia Fisher is a 84 y/o female with s PMH of atrial fibrillatilation, multiple myeloma, T2DM and HLD presented to the ED with lower abdominal pain and diarrhea. CT scan showed diverticulitis with concern for colovesical fistula. There was also a small foci of air in the bladder and her urine was suggestive of UTI. IV antibitoics were started. She is feeling well overall. No acute events overnight. She reports improvement in abdominal pain this morning with a pain rating of 4-5/10. She states her last BM was yesterday which was bloody diarrhea. She continues to have no uriniary symptoms. <Char Durand PA-C - Last Filed: 07/30/25 07:48> Physical Exam Vital Signs: Vital Signs: Last Vital Signs Temp 96.9 F 07/30/25 03:37 Pulse 79 07/30/25 03:37 Resp 16 07/30/25 03:37 BP 135/78 07/30/25 03:37 Pulse Ox 97 07/30/25 03:37 O2 Del Method Room Air 07/30/25 03:37 BMI result Body Mass Index 22.7 <Kerry Machuca - Last Filed: 07/30/25 07:41> Const: General: comfortable; No acute distress <Kerry Machuca Last Filed: 07/30/25 07:41> Orientation/consciousness: patient oriented x3 <Kerry Machuca Last Filed: 07/30/25 07:41> Resp: Effort & Inspection: normal respiratory effort and able to speak in complete sentences <Kerryvamshi Machuca Last Filed: 07/30/25 07:41> GI: Inspection: No distended and Yes scar (pfannenstiel) <Kerryvamshi Machuca Last Filed: 07/30/25 07:41> Palpation (GI): Soft to palpation, no guarding and no masses <Kerryvamshi Machuca Last Filed: 07/30/25 07:41> : Other: Palpation: No suprapubic tenderness <Kerryvamshi Machuca Last Filed: 07/30/25 07:41> Neuro: General: patient oriented x3 <Kerry Mcahuca [facility] Filed: 07/30/25 07:41> Objective Data Active Medications Acetaminophen (Acetaminophen 325 Mg Tablet) 650 mg PO Q6H PRN PRN Reason: Pain, Mild 1-3,fever,headache Apixaban (Apixaban 5 Mg Tablet) 5 mg PO BID [facility] Last Admin: 07/29/25 20:21 Dose: 5 mg Documented By: VINNY Atorvastatin Calcium (Atorvastatin Calcium 10 Mg Tablet) 10 mg PO BEDTIME [facility] Last Admin: 07/29/25 20:21 Dose: 10 mg Documented By: VINNY Calcium Carbonate (Calcium Carbonate 750 Mg Tab.Chew) 750 mg PO Q4H PRN PRN Reason: Heartburn Dextrose (Dextrose 50 % 25 Gm/50 Ml Syringe) 25 gm IVPUSH Q15M PRN; Protocol PRN Reason: per Hypoglycemia Standing Ord. Digoxin (Digoxin 0.125 Mg Tablet) 0.125 mg PO DAILY [facility]; Protocol Last Admin: 07/29/25 07:54 Dose: 0.125 mg Documented By: SUNDAR Glucose (Glucose Gel 15 Gm Gel..Gram.) 15 gm PO Q15M PRN; Protocol PRN Reason: per Hypoglycemia Standing Ord. Piperacillin Sod/Tazobactam (Sod 3.375 gm/ Sodium Chloride) 50 mls @ 100 mls/hr IV Q6H [facility] Last Admin: 07/30/25 05:49 Dose: 100 mls/hr Documented By: VINNY Lactated Ringer's (Lr) 1,000 mls @ 80 mls/hr IVCONT .[id number] [facility] On Hold: 07/29/25 19:47 Last Admin: 07/29/25 19:15 Dose: 80 mls/hr Documented By: VINNY Magnesium Hydroxide (Milk Of Magnesia 30 Ml Oral.Susp) 30 ml PO DAILY PRN PRN Reason: Constipation Melatonin (Melatonin 3 Mg Tablet) 6 mg PO BEDTIME PRN PRN Reason: Insomnia Metoprolol Succinate (Metoprolol Succinate Er 50 Mg Tab.Er.24h) 50 mg PO BID [facility]; Protocol Last Admin: 07/29/25 20:21 Dose: 50 mg Documented By: VINNY Morphine Sulfate (Morphine Sulfate 4 Mg/Ml Cartridge) 2 mg IVPUSH Q4H PRN; Protocol PRN Reason: Pain, Severe (Pain Scale 7-10) Last Admin: 07/29/25 09:36 Dose: 2 mg Documented By: SUNDAR Omeprazole (Omeprazole 20 Mg Capsule.Dr) 20 mg PO DAILY@0630 [facility] Last Admin: 07/30/25 05:50 Dose: 20 mg Documented By: VINNY Ondansetron HCl (Ondansetron Hcl 4 Mg/2 Ml Vial) 4 mg IVPUSH Q8H PRN PRN Reason: Nausea and Vomiting Oxycodone HCl (Oxycodone Hcl Immed Release 5 Mg Tablet) 5 mg PO Q6H PRN PRN Reason: back pain Last Admin: 07/30/25 01:02 Dose: 5 mg Documented By: VINNY Sodium Chloride (0.9 % Sodium Chloride Flush 3 Ml Syringe) [facility] Last Admin: 07/30/25 02:18 Dose: 3 ml Documented By: VINNY <Kerry Machuca - Last Filed: 07/30/25 07:41> Labs CBC & Chem 7: 07/29/25 05:34 07/29/25 05:34 <Kerry Machuca - Last Filed: 07/30/25 07:41> Labs: Laboratory Results - last 24 hr 07/29/25 07/29/25 07/29/25 05:34 08:06 11:12 Anion Gap 10 L Estim Creat Clear Calc 76.9 Estimated GFR > 60 POC Glucose 88 99 Random Glucose 92 Calcium 8.3 L Total Bilirubin 1.1 H AST 22 ALT 15 Alkaline Phosphatase 102 Total Protein 5.6 L Albumin 3.3 L 07/29/25 07/29/25 16:12 20:18 Anion Gap Estim Creat Clear Calc Estimated GFR POC Glucose 83 81 Random Glucose Calcium Total Bilirubin AST ALT Alkaline Phosphatase Total Protein Albumin <Kerry Machuca - Last Filed: 07/30/25 07:41> Microbiology Microbiology Results: Microbiology 07/28/25 18:31 Blood Culture - Preliminary Blood - Venous No growth after 24 hours. 07/28/25 18:31 Blood Culture - Preliminary Blood - Venous No growth after 24 hours. 07/28/25 Unknown Urine Culture - Preliminary Urine clean catch - Clean Catch Midstream Culture too young to evaluate. <Kerry Machuca - Last Filed: 07/30/25 07:41> Procedures Date of Service Date of Service: 07/30/25 <Kerry Machuca - Last Filed: 07/30/25 07:41> 07/30/25 <Char Durand PA-C - Last Filed: 07/30/25 07:48> 07/30/25 <Roosevelt Beebe MD - Last Filed: 07/30/25 08:38> Progress Note: A&P Assessment and plan (1) Diverticulitis of intestine with abscess: Status: Acute <Kerry Machuca - Last Filed: 07/30/25 07:41> Assessment and Plan: Patient has been admitted for diverticulitis She has multiple medical problems including atrial fibrillation, multiple myeloma, diabetes There was note of a small abdominal abscess Possible colovesical fistula Urinalysis showing a very small amounts of WBCs, negative for leukocyte esterase although positive for nitrites Maybe a small tract Would recommend IV antibiotic treatment for now and hope for closure of the fistula with control of the inflammatory process She has significant perioperative risks for major colon surgery, bladder repair We will follow along closely Exam otherwise benign I have seen and examined the patient independently <Roosevelt Beebe MD - Last Filed: 07/30/25 08:38> Assessment and Plan: Yesenia Fisher is a 84 y/o F with a PMH of atrial fibrilation, multiple myeloma, T2DM and HLD the presented to the ED with acute worsening lower abdominal pain. <Kerry Machuca - Last Filed: 07/30/25 07:41> Yesenia Fisher is a 84 y/o F with a PMH of atrial fibrilation, multiple myeloma, T2DM and HLD the presented to the ED with acute worsening lower abdominal pain. Agree with above assessment by Sven MS-3. Patient overall clinically appearing well with a benign abd exam. Abscess not amenable to IR drainage but very small. Await urology input regarding colovesical fistula, patient not symptomatic from this but UA suggestive of UTI. Cont IV abx, supportive measures for now. <Char Durand PA-C - Last Filed: 07/30/25 07:48> Time Spent With Patient Time: Total time managing care of this patient today ____ minutes. <Kerry Machuca - Last Filed: 07/30/25 07:41> Quality Stroke Does the patient have a stroke diagnosis?: No <Kerry Machuca - Last Filed: 07/30/25 07:41> VTE Prior VTE?: No <Kerry Machuca - Last Filed: 07/30/25 07:41> VTE Risk Level:: Medical - moderate - high <Kerry Machuca - Last Filed: 07/30/25 07:41> VTE Device Contraindication: Treatment Not Indicated <Kerry Machuca - Last Filed: 07/30/25 07:41> VTE Drug Contraindication: N/A - Med Ordered <Kerry Machuca - Last Filed: 07/30/25 07:41>
[2025-07-30 07:28] VITALS: BP 135/82; PULSE 107; RESP 16; TEMP 37; O2SAT 97
[2025-07-30 07:29] LABS: Glucose, Whole Blood 71 mg/dL (60-115)
[2025-07-30] MEDS: Metoprolol Succinate ER 50 MG TAB.ER.24H PO (08:10)
[2025-07-30 08:46] LABS: Hematocrit 38.3 % (37.0-47.0); Hemoglobin 12.8 g/dl (12.0-16.0); Mean Corpuscular HGB Conc 33.4 g/dl (31.0-35.0); Mean Corpuscular Hemoglobin 30.5 pg (27.0-33.0); Mean Corpuscular Volume 91.4 fL (80.0-98.0); NRBC Abs Auto 0.040 X10*3/uL (0.0-0.012); NRBC Pct Auto 0.6 /100WBC (0.0-0.2); Red Blood Count 4.19 X10*6/uL (4.20-5.50); White Blood Count 7.1 X10*3/uL (4.8-10.8)
[2025-07-30 08:52] LABS: Platelet Count 95 X10*3/uL (160-400)
[2025-07-30 09:05] LABS: Anion Gap 13 (12-20); Blood Urea Nitrogen 7 mg/dL (9-16); Calcium 8.0 mg/dL (8.4-10.2); Carbon Dioxide 23 mmol/L (22-29); Chloride 102 mmol/L (96-108); Creatinine Clr Calc Pharmacy 74.0; Estimated Glomerular Filt Rate > 60; Potassium 3.6 mmol/L (3.3-5.1); Sodium 134 mmol/L (135-145)
[2025-07-30 11:13] LABS: Glucose, Whole Blood 96 mg/dL (60-115)
--- NOTE | 2025-07-30 15:31 | PM.EVENT ---
Event Note Date of Service: 07/30/25 Event Note: Seen on afternoon rounds Minimal abdominal pain Feels well overall says she says she feels that she has improved significantly No fever Abdomen is soft and benign Does have multiple medical problems Would recommend continuing with nonoperative treatment with IV antibiotics for now I have discussed the above with daughter Katherin who also reiterated that she would like her to avoid any surgical intervention as much as possible Time Spent With Patient Time: Total time managing care of this patient today ____ minutes.
--- NOTE | 2025-07-30 15:57 | HO.PM.IMPN ---
Subjective Subjective Date of Service: 07/30/25 Interval History: abd pain Review of Systems pain seems similar Review of Systems: Yes all other systems are reviewed and are negative Physical Exam Exam: Exam: Appearance: Alert.? Oriented X3.? cvs: rrr, [id number] . res: clear to auscultation ,no rhonchii or wheezing abd: no rebound or guarding ,llq pain, bs present. ext pulses present , no cyanosis . neuro: axo3 , nonfocal. Vital Signs: Vital Signs: Last Vital Signs Temp 98.6 F 07/30/25 07:28 Pulse 107 H 07/30/25 07:28 Resp 16 07/30/25 07:28 BP 135/82 07/30/25 07:28 Pulse Ox 97 07/30/25 07:28 O2 Del Method Room Air 07/30/25 07:28 BMI result Body Mass Index 22.7 Objective Data Active Medications Acetaminophen (Acetaminophen 325 Mg Tablet) 650 mg PO Q6H PRN PRN Reason: Pain, Mild 1-3,fever,headache Apixaban (Apixaban 5 Mg Tablet) 5 mg PO BID [facility] Last Admin: 07/30/25 08:10 Dose: 5 mg Documented By: CHRISTIANO Atorvastatin Calcium (Atorvastatin Calcium 10 Mg Tablet) 10 mg PO BEDTIME [facility] Last Admin: 07/29/25 20:21 Dose: 10 mg Documented By: VINNY Calcium Carbonate (Calcium Carbonate 750 Mg Tab.Chew) 750 mg PO Q4H PRN PRN Reason: Heartburn Dextrose (Dextrose 50 % 25 Gm/50 Ml Syringe) 25 gm IVPUSH Q15M PRN; Protocol PRN Reason: per Hypoglycemia Standing Ord. Digoxin (Digoxin 0.125 Mg Tablet) 0.125 mg PO DAILY [facility]; Protocol Last Admin: 07/30/25 08:10 Dose: 0.125 mg Documented By: CHRISTIANO Glucose (Glucose Gel 15 Gm Gel..Gram.) 15 gm PO Q15M PRN; Protocol PRN Reason: per Hypoglycemia Standing Ord. Piperacillin Sod/Tazobactam (Sod 3.375 gm/ Sodium Chloride) 50 mls @ 100 mls/hr IV Q6H [facility] Last Infusion: 07/30/25 11:47 Dose: Infused Documented By: CHRISTIANO Magnesium Hydroxide (Milk Of Magnesia 30 Ml Oral.Susp) 30 ml PO DAILY PRN PRN Reason: Constipation Melatonin (Melatonin 3 Mg Tablet) 6 mg PO BEDTIME PRN PRN Reason: Insomnia Metoprolol Succinate (Metoprolol Succinate Er 50 Mg Tab.Er.24h) 50 mg PO BID [facility]; Protocol Last Admin: 07/30/25 08:10 Dose: 50 mg Documented By: CHRISTIANO Morphine Sulfate (Morphine Sulfate 4 Mg/Ml Cartridge) 2 mg IVPUSH Q4H PRN; Protocol PRN Reason: Pain, Severe (Pain Scale 7-10) Last Admin: 07/30/25 08:18 Dose: 2 mg Documented By: CHRISTIANO Omeprazole (Omeprazole 20 Mg Capsule.Dr) 20 mg PO DAILY@0630 [facility] Last Admin: 07/30/25 05:50 Dose: 20 mg Documented By: VINNY Ondansetron HCl (Ondansetron Hcl 4 Mg/2 Ml Vial) 4 mg IVPUSH Q8H PRN PRN Reason: Nausea and Vomiting Oxycodone HCl (Oxycodone Hcl Immed Release 5 Mg Tablet) 5 mg PO Q6H PRN PRN Reason: back pain Last Admin: 07/30/25 01:02 Dose: 5 mg Documented By: VINNY Sodium Chloride (0.9 % Sodium Chloride Flush 3 Ml Syringe) 3 ml IVFLUSH [facility] Last Admin: 07/30/25 08:37 Dose: Not Given Documented By: CHRISTIANO Non-Admin Reason: IV Running Labs 07/30/25 08:24 07/30/25 08:24 Labs: Laboratory Results - last 24 hr 07/29/25 07/29/25 07/30/25 16:12 20:18 07:26 MCV MCH MCHC RDW Plt Count MPV Absolute Nucleated RBC Nucleated RBC % (auto) Anion Gap Estim Creat Clear Calc Estimated GFR POC Glucose 83 81 71 Random Glucose Calcium 07/30/25 07/30/25 08:24 11:09 MCV 91.4 MCH 30.5 MCHC 33.4 RDW 13.9 Plt Count 95 L MPV 12.4 H Absolute Nucleated RBC 0.040 H Nucleated RBC % (auto) 0.6 H Anion Gap 13 Estim Creat Clear Calc 74.0 Estimated GFR > 60 POC Glucose 96 Random Glucose 69 Calcium 8.0 L Microbiology Microbiology Results: Microbiology 07/28/25 Unknown Urine Culture - Preliminary Urine clean catch - Clean Catch Midstream Culture in progress. 07/28/25 18:31 Blood Culture - Preliminary Blood - Venous No growth after 24 hours. 07/28/25 18:31 Blood Culture - Preliminary Blood - Venous No growth after 24 hours. 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 Acute Diverticulitis\colitis with abscess formation Not septic pending cultures clear liquid diet surgery consult- minimal improvement, IV Zosyn , pain medication IV, IV fluids. Seen by urology also-lad UA, if does not improve will need cystoscopy. Acute hyponatremia Na of 134-improving with the hydration Thrombocytopenia PLT of 95 from baseline of 156 likely MM treatment related, continue to monitor no evidence of bleeding Bacteruria No reported urinary symptoms follow Cx Hx Afib Continue Eliquis , Digoxin and Metoprolol HFpEF not in exacerbation watch for fluid overload and DC IVF soon Hx MM with multiple thoracic and lumbar metastatic lesions causing chronic back pain. follows with dr Watts PRN Oxycodone for pain HTN, HLD Statin, Lisinopril GERD Omeprazole DVT PPx: Eliquis Code status: Full code ongoing need of hospital stay for treatment of diverticulitis with abscess -need IV antibiotics, IV pain meds, surgery evaluation monitoring in case worsen might need surgery and cultures pending. Quality Stroke Does the patient have a stroke diagnosis?: No VTE Prior VTE?: No VTE Risk Level:: Medical - moderate - high VTE Device Contraindication: Treatment Not Indicated VTE Drug Contraindication: N/A - Med Ordered
[2025-07-30 16:00] VITALS: BP 128/71; PULSE 86; RESP 16; TEMP 36.8; O2SAT 95
[2025-07-30 16:07] LABS: Glucose, Whole Blood 114 mg/dL (60-115)
[2025-07-30 19:31] VITALS: BP 114/72; PULSE 70; RESP 16; TEMP 36.3; O2SAT 96
[2025-07-30 20:13] LABS: Glucose, Whole Blood 115 mg/dL (60-115)
[2025-07-31] VITALS (7 sets, daily range): BP systolic 105–152; BP diastolic 55–88; PULSE 51–77; RESP 15–18; TEMP 36–36.2; O2SAT 92–96
--- NOTE | 2025-07-31 06:25 | PM.PNGS ---
Subjective Subjective Date of Service: 07/31/25 Interval history: Hospital Course Yesenia Fisher is a 84 y/o female with significant PMH of atrial fibrillatilation on Elliquis, multiple myeloma in chemotherapy, T2DM and HLD presented to the ED with 4-5 days of lower abdominal pain and diarrhea. CT scan showed diverticulitis with concern for colovesical fistula, and a small foci of air in the bladder and her urine was suggestive of UTI. IV antibitoics were started. Physical Exam Vital Signs: Vital Signs: Last Vital Signs Temp 97.2 F 07/31/25 04:00 Pulse 72 07/31/25 04:00 Resp 18 07/31/25 04:00 BP 112/68 07/31/25 04:00 Pulse Ox 92 07/31/25 04:00 O2 Del Method Room Air 07/31/25 04:00 BMI result Body Mass Index 22.7 Objective Data Active Medications Acetaminophen (Acetaminophen 325 Mg Tablet) 650 mg PO Q6H PRN PRN Reason: Pain, Mild 1-3,fever,headache Apixaban (Apixaban 5 Mg Tablet) 5 mg PO BID [facility] Last Admin: 07/30/25 20:34 Dose: 5 mg Documented By: BRENDA Atorvastatin Calcium (Atorvastatin Calcium 10 Mg Tablet) 10 mg PO BEDTIME [facility] Last Admin: 07/30/25 20:34 Dose: 10 mg Documented By: BRENDA Calcium Carbonate (Calcium Carbonate 750 Mg Tab.Chew) 750 mg PO Q4H PRN PRN Reason: Heartburn Dextrose (Dextrose 50 % 25 Gm/50 Ml Syringe) 25 gm IVPUSH Q15M PRN; Protocol PRN Reason: per Hypoglycemia Standing Ord. Digoxin (Digoxin 0.125 Mg Tablet) 0.125 mg PO DAILY [facility]; Protocol Last Admin: 07/30/25 08:10 Dose: 0.125 mg Documented By: CHRISTIANO Glucose (Glucose Gel 15 Gm Gel..Gram.) 15 gm PO Q15M PRN; Protocol PRN Reason: per Hypoglycemia Standing Ord. Piperacillin Sod/Tazobactam (Sod 3.375 gm/ Sodium Chloride) 50 mls @ 100 mls/hr IV Q6H [facility] Last Infusion: 07/30/25 23:14 Dose: Infused Documented By: BRENDA Magnesium Hydroxide (Milk Of Magnesia 30 Ml Oral.Susp) 30 ml PO DAILY PRN PRN Reason: Constipation Melatonin (Melatonin 3 Mg Tablet) 6 mg PO BEDTIME PRN PRN Reason: Insomnia Metoprolol Succinate (Metoprolol Succinate Er 50 Mg Tab.Er.24h) 50 mg PO BID [facility]; Protocol Last Admin: 07/30/25 20:35 Dose: Not Given Documented By: BRENDA Non-Admin Reason: See Note Comments: pt reports pain 8/10, asking for iv morphine - bp on soft side, med held Morphine Sulfate (Morphine Sulfate 4 Mg/Ml Cartridge) 2 mg IVPUSH Q4H PRN; Protocol PRN Reason: Pain, Severe (Pain Scale 7-10) Last Admin: 07/30/25 20:40 Dose: 2 mg Documented By: BRENDA Omeprazole (Omeprazole 20 Mg Capsule.Dr) 20 mg PO DAILY@0630 [facility] Last Admin: 07/30/25 05:50 Dose: 20 mg Documented By: VINNY Ondansetron HCl (Ondansetron Hcl 4 Mg/2 Ml Vial) 4 mg IVPUSH Q8H PRN PRN Reason: Nausea and Vomiting Oxycodone HCl (Oxycodone Hcl Immed Release 5 Mg Tablet) 5 mg PO Q6H PRN PRN Reason: back pain Last Admin: 07/30/25 01:02 Dose: 5 mg Documented By: VINNY Sodium Chloride (0.9 % Sodium Chloride Flush 3 Ml Syringe) 3 ml IVFLUSH [facility] Last Admin: 07/30/25 20:43 Dose: 3 ml Documented By: BRENDA Labs 07/30/25 08:24 07/30/25 08:24 Labs: Laboratory Results - last 24 hr 07/30/25 07/30/25 07/30/25 07:26 08:24 11:09 MCV 91.4 MCH 30.5 MCHC 33.4 RDW 13.9 Plt Count 95 L MPV 12.4 H Absolute Nucleated RBC 0.040 H Nucleated RBC % (auto) 0.6 H Anion Gap 13 Estim Creat Clear Calc 74.0 Estimated GFR > 60 POC Glucose 71 96 Random Glucose 69 Calcium 8.0 L 07/30/25 07/30/25 16:04 20:09 MCV MCH MCHC RDW Plt Count MPV Absolute Nucleated RBC Nucleated RBC % (auto) Anion Gap Estim Creat Clear Calc Estimated GFR POC Glucose 114 115 Random Glucose Calcium Microbiology Microbiology Results: Microbiology 07/28/25 18:31 Blood Culture - Preliminary Blood - Venous No growth after 48 hours. 07/28/25 18:31 Blood Culture - Preliminary Blood - Venous No growth after 48 hours. 07/28/25 Unknown Urine Culture - Preliminary Urine clean catch - Clean Catch Midstream Culture in progress. Procedures Date of Service Date of Service: 07/31/25 Progress Note: A&P Assessment and plan Plan Patient overall clinically appearing well with a benign abdominal exam. Abscess not amenable to IR drainage but very small. Await urology input regarding colovesical fistula, patient not symptomatic from this but UA suggestive of UTI. Cont IV abx, supportive measures for now. Time Spent With Patient Time: Total time managing care of this patient today ____ minutes. Quality Stroke Does the patient have a stroke diagnosis?: No VTE Prior VTE?: No VTE Risk Level:: Medical - moderate - high VTE Device Contraindication: Treatment Not Indicated VTE Drug Contraindication: N/A - Med Ordered
[2025-07-31] MEDS: 0.9 % Sodium Chloride Flush 3 ML SYRINGE IVFLUSH ×3 (07:28→20:29)
[2025-07-31 07:34] LABS: Glucose, Whole Blood 82 mg/dL (60-115)
[2025-07-31 08:30] LABS: Hematocrit 38.5 % (37.0-47.0); Hemoglobin 12.8 g/dl (12.0-16.0)
--- NOTE | 2025-07-31 08:31 | P.PNGS_ITS ---
Subjective Subjective Date of Service: 07/31/25 <Char Durand PA-C - Last Filed: 07/31/25 08:34> 07/31/25 <Roosevelt Beebe MD - Last Filed: 07/31/25 13:22> Interval history: reports mild lower abdominal discomfort, but overall signficantly improved from admission. Also feels more energetic. Tolerating clear liquids and feels hungry. Passing flatus and liquid BMs. Continues to deny any urinary symptoms. <Char Durand PA-C - Last Filed: 07/31/25 08:34> Physical Exam 2 Vital Signs: Vital Signs: Last Vital Signs Temp 96.8 F 07/31/25 07:17 Pulse 71 07/31/25 07:30 Resp 17 07/31/25 07:30 BP 152/88 H 07/31/25 07:17 Pulse Ox 96 07/31/25 07:17 O2 Del Method Room Air 07/31/25 07:17 BMI result Body Mass Index 22.7 <Char Durand PA-C - Last Filed: 07/31/25 08:34> Const: General: comfortable, no acute distress and alert <Char Durand PA-C - Last Filed: 07/31/25 08:34> Orientation/consciousness: patient oriented x3 <Char Durand PA-C - Last Filed: 07/31/25 08:34> Resp: Effort & Inspection: normal respiratory effort <Char Durand PA-C - Last Filed: 07/31/25 08:34> GI: Other: abd soft, nondistended nontender <Char Durand PA-C - Last Filed: 07/31/25 08:34> Palpation (GI): no guarding and not rigid <Char Durand PA-C - Last Filed: 07/31/25 08:34> Percussion: Yes normal to percussion <DANIEL Laughlin Last Filed: 07/31/25 08:34> Skin: General skin exam: no rashes or lesions noted <DANIEL Laughlin Last Filed: 07/31/25 08:34> Neuro: General: patient oriented x3 and moves all extremities <Char Durand PA-C - Last Filed: 07/31/25 08:34> Objective Data Active Medications Acetaminophen (Acetaminophen 325 Mg Tablet) 650 mg PO Q6H PRN PRN Reason: Pain, Mild 1-3,fever,headache Apixaban (Apixaban 5 Mg Tablet) 5 mg PO BID [facility] Last Admin: 07/30/25 20:34 Dose: 5 mg Documented By: BRENDA Atorvastatin Calcium (Atorvastatin Calcium 10 Mg Tablet) 10 mg PO BEDTIME [facility] Last Admin: 07/30/25 20:34 Dose: 10 mg Documented By: BRENDA Calcium Carbonate (Calcium Carbonate 750 Mg Tab.Chew) 750 mg PO Q4H PRN PRN Reason: Heartburn Dextrose (Dextrose 50 % 25 Gm/50 Ml Syringe) 25 gm IVPUSH Q15M PRN; Protocol PRN Reason: per Hypoglycemia Standing Ord. Digoxin (Digoxin 0.125 Mg Tablet) 0.125 mg PO DAILY [facility]; Protocol Last Admin: 07/30/25 08:10 Dose: 0.125 mg Documented By: CHRISTIANO Glucose (Glucose Gel 15 Gm Gel..Gram.) 15 gm PO Q15M PRN; Protocol PRN Reason: per Hypoglycemia Standing Ord. Piperacillin Sod/Tazobactam (Sod 3.375 gm/ Sodium Chloride) 50 mls @ 100 mls/hr IV Q6H [facility] Last Infusion: 07/31/25 07:42 Dose: Infused Documented By: CARLOTTA Magnesium Hydroxide (Milk Of Magnesia 30 Ml Oral.Susp) 30 ml PO DAILY PRN PRN Reason: Constipation Melatonin (Melatonin 3 Mg Tablet) 6 mg PO BEDTIME PRN PRN Reason: Insomnia Metoprolol Succinate (Metoprolol Succinate Er 50 Mg Tab.Er.24h) 50 mg PO BID [facility]; Protocol Last Admin: 07/30/25 20:35 Dose: Not Given Documented By: BRENDA Non-Admin Reason: See Note Comments: pt reports pain 8/10, asking for iv morphine - bp on soft side, med held Morphine Sulfate (Morphine Sulfate 4 Mg/Ml Cartridge) 2 mg IVPUSH Q4H PRN; Protocol PRN Reason: Pain, Severe (Pain Scale 7-10) Last Admin: 07/31/25 07:36 Dose: 2 mg Documented By: CARLOTTA Omeprazole (Omeprazole 20 Mg Capsule.Dr) 20 mg PO DAILY@0630 [facility] Last Admin: 07/31/25 06:41 Dose: 20 mg Documented By: BRENDA Ondansetron HCl (Ondansetron Hcl 4 Mg/2 Ml Vial) 4 mg IVPUSH Q8H PRN PRN Reason: Nausea and Vomiting Oxycodone HCl (Oxycodone Hcl Immed Release 5 Mg Tablet) 5 mg PO Q6H PRN PRN Reason: back pain Last Admin: 07/30/25 01:02 Dose: 5 mg Documented By: VINNY Sodium Chloride (0.9 % Sodium Chloride Flush 3 Ml Syringe) 3 ml IVFLUSH QSHIFT [facility] Last Admin: 07/31/25 07:28 Dose: 3 ml Documented By: CARLOTTA <Char Durand PA-C - Last Filed: 07/31/25 08:34> Labs CBC & Chem 7: 07/31/25 08:16 07/30/25 08:24 <Char Durand PA-C - Last Filed: 07/31/25 08:34> Labs: Laboratory Results - last 24 hr 07/30/25 07/30/25 07/30/25 08:24 11:09 16:04 MCV 91.4 MCH 30.5 MCHC 33.4 RDW 13.9 Plt Count 95 L MPV 12.4 H Absolute Nucleated RBC 0.040 H Nucleated RBC % (auto) 0.6 H Anion Gap 13 Estim Creat Clear Calc 74.0 Estimated GFR > 60 POC Glucose 96 114 Random Glucose 69 Calcium 8.0 L 07/30/25 07/31/25 20:09 07:23 MCV MCH MCHC RDW Plt Count MPV Absolute Nucleated RBC Nucleated RBC % (auto) Anion Gap Estim Creat Clear Calc Estimated GFR POC Glucose 115 82 Random Glucose Calcium <Char Durand PA-C - Last Filed: 07/31/25 08:34> Microbiology Microbiology Results: Microbiology 07/28/25 Unknown Urine Culture - Preliminary Urine clean catch - Clean Catch Midstream Gram negative jeannine 07/28/25 18:31 Blood Culture - Preliminary Blood - Venous No growth after 48 hours. 07/28/25 18:31 Blood Culture - Preliminary Blood - Venous No growth after 48 hours. <Char Durand PA-C - Last Filed: 07/31/25 08:34> Procedures Date of Service Date of Service: 07/31/25 <Char Durand PA-C - Last Filed: 07/31/25 08:34> 07/31/25 <Roosevelt Beebe MD - Last Filed: 07/31/25 13:22> Progress Note: A&P Assessment and plan (1) Diverticulitis of intestine with abscess: Status: Acute <Char Durand PA-C - Last Filed: 07/31/25 08:34> Assessment and Plan: She says she slept well He has abdominal pain Tolerating clear liquids Passing flatus Abdomen is soft, benign and nontender Continue current care with IV antibiotics Okay to advance diet slowly as tolerated Discussed with daughter Seen and examined independently <Roosevelt Beebe MD - Last Filed: 07/31/25 13:22> Assessment and Plan: Admitted with diverticulitis with small abscess and question of colovesical fistula. She wishes to avoid surgery if possible and she presents with high perioperative risks and the fistula appears to small. she overall feels improved and abd remains very benign. Continue nonoperative measures with IV abx. Will advance to full liquids. <Char Durand PA-C - Last Filed: 07/31/25 08:34> Time Spent With Patient Time: Total time managing care of this patient today ____ minutes. <Char Durand PA-C - Last Filed: 07/31/25 08:34> Quality Stroke Does the patient have a stroke diagnosis?: No <Char Durand PA-C - Last Filed: 07/31/25 08:34> VTE Prior VTE?: No <Char Durand PA-C - Last Filed: 07/31/25 08:34> VTE Risk Level:: Medical - moderate - high <Char Durand PA-C - Last Filed: 07/31/25 08:34> VTE Device Contraindication: Treatment Not Indicated <Char Durand PA-C - Last Filed: 07/31/25 08:34> VTE Drug Contraindication: N/A - Med Ordered <DANIEL Laughlin Last Filed: 07/31/25 08:34>
[2025-07-31] MEDS: Metoprolol Succinate ER 50 MG TAB.ER.24H PO (09:03)
[2025-07-31 11:32] LABS: Glucose, Whole Blood 112 mg/dL (60-115)
--- NOTE | 2025-07-31 12:56 | MHC.CLN ---
F/U DIET ADVANCED TO FULL LIQUIDS 07/31. ADDING ENSURE TID TO PROMOTE NUTRITIONAL INTAKE. SUPPLEMENT PROVIDES 1050 KCALS, 60 G PROTEIN. DX METASTATIC CANCER. FOLOW FOR DIET ADVANCEMENT AND PO INTAKE.
--- NOTE | 2025-07-31 13:58 | P.PNIM_ITS ---
Subjective Subjective Date of Service: 07/31/25 Interval History: Diverticulitis/abscess Review of Systems Abdominal pain /cramping present No diarrhea or nausea vomiting Physical Exam 2 Exam: Exam: Appearance: Alert.? Oriented X3.? cvs: [id number], [id number] . res: clear to auscultation ,no rhonchii or wheezing abd: no rebound or guarding ,llq pain, bs present. ext pulses present , no cyanosis . neuro: axo3 , nonfocal. Vital Signs: Vital Signs: Last Vital Signs Temp 96.8 F 07/31/25 07:17 Pulse 72 07/31/25 11:02 Resp 17 07/31/25 07:30 BP 152/88 H 07/31/25 07:17 Pulse Ox 96 07/31/25 07:17 O2 Del Method Room Air 07/31/25 07:17 BMI result Body Mass Index 22.7 Objective Data Active Medications Acetaminophen (Acetaminophen 325 Mg Tablet) 650 mg PO Q6H PRN PRN Reason: Pain, Mild 1-3,fever,headache Apixaban (Apixaban 5 Mg Tablet) 5 mg PO BID [facility] Last Admin: 07/31/25 09:03 Dose: 5 mg Documented By: SUNDAR Atorvastatin Calcium (Atorvastatin Calcium 10 Mg Tablet) 10 mg PO BEDTIME [facility] Last Admin: 07/30/25 20:34 Dose: 10 mg Documented By: BRENDA Calcium Carbonate (Calcium Carbonate 750 Mg Tab.Chew) 750 mg PO Q4H PRN PRN Reason: Heartburn Dextrose (Dextrose 50 % 25 Gm/50 Ml Syringe) 25 gm IVPUSH Q15M PRN; Protocol PRN Reason: per Hypoglycemia Standing Ord. Digoxin (Digoxin 0.125 Mg Tablet) 0.125 mg PO DAILY [facility]; Protocol Last Admin: 07/31/25 09:03 Dose: 0.125 mg Documented By: SUNDAR Glucose (Glucose Gel 15 Gm Gel..Gram.) 15 gm PO Q15M PRN; Protocol PRN Reason: per Hypoglycemia Standing Ord. Piperacillin Sod/Tazobactam (Sod 3.375 gm/ Sodium Chloride) 50 mls @ 100 mls/hr IV Q6H [facility] Last Infusion: 07/31/25 12:37 Dose: Infused Documented By: CHICA Magnesium Hydroxide (Milk Of Magnesia 30 Ml Oral.Susp) 30 ml PO DAILY PRN PRN Reason: Constipation Melatonin (Melatonin 3 Mg Tablet) 6 mg PO BEDTIME PRN PRN Reason: Insomnia Metoprolol Succinate (Metoprolol Succinate Er 50 Mg Tab.Er.24h) 50 mg PO BID [facility]; Protocol Last Admin: 07/31/25 09:03 Dose: 50 mg Documented By: SUNDAR Morphine Sulfate (Morphine Sulfate 4 Mg/Ml Cartridge) 2 mg IVPUSH Q4H PRN; Protocol PRN Reason: Pain, Severe (Pain Scale 7-10) Last Admin: 07/31/25 07:36 Dose: 2 mg Documented By: CARLOTTA Omeprazole (Omeprazole 20 Mg Capsule.Dr) 20 mg PO DAILY@0630 [facility] Last Admin: 07/31/25 06:41 Dose: 20 mg Documented By: BRENDA Ondansetron HCl (Ondansetron Hcl 4 Mg/2 Ml Vial) 4 mg IVPUSH Q8H PRN PRN Reason: Nausea and Vomiting Oxycodone HCl (Oxycodone Hcl Immed Release 5 Mg Tablet) 5 mg PO Q6H PRN PRN Reason: back pain Last Admin: 07/30/25 01:02 Dose: 5 mg Documented By: VINNY Sodium Chloride (0.9 % Sodium Chloride Flush 3 Ml Syringe) [facility] Last Admin: 07/31/25 13:09 Dose: 3 ml Documented By: CHICA Labs 07/31/25 08:16 07/30/25 08:24 Labs: Laboratory Results - last 24 hr 07/30/25 07/30/25 07/31/25 16:04 20:09 07:23 POC Glucose 114 115 82 07/31/25 11:25 POC Glucose 112 Microbiology Microbiology Results: Microbiology 07/28/25 Unknown Urine Culture - Preliminary Urine clean catch - Clean Catch Midstream Gram negative jeannine 07/28/25 18:31 Blood Culture - Preliminary Blood - Venous No growth after 48 hours. 07/28/25 18:31 Blood Culture - Preliminary Blood - Venous No growth after 48 hours. 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 Acute Diverticulitis\colitis with abscess formation Not septic ua positive -pyuria/bacteruria ,pending cultures -urine culture gram negative jeannine , blood cultures negative @48hrs switch to full liquid diet surgery consult- minimal improvement, IV Zosyn , pain medication IV. Seen by urology also-lad UA, if does not improve will need cystoscopy. Acute hyponatremia Na of 134-improving with the hydration Thrombocytopenia PLT of 95 from baseline of 156(platlet counts pending from today) likely MM treatment related, continue to monitor no evidence of bleeding Bacteruria No reported urinary symptoms follow Cx Hx Afib Continue Eliquis , Digoxin and Metoprolol HFpEF not in exacerbation watch for fluid overload and DC IVF soon Hx MM with multiple thoracic and lumbar metastatic lesions causing chronic back pain. follows with dr Watts PRN Oxycodone for pain HTN, HLD Statin, Lisinopril GERD Omeprazole DVT PPx: Eliquis Code status: Full code ongoing need of hospital stay for treatment of diverticulitis with abscess -need IV antibiotics, IV pain meds, surgery evaluation monitoring in case worsen might need surgery and cultures pending. Quality Stroke Does the patient have a stroke diagnosis?: No VTE Prior VTE?: No VTE Risk Level:: Medical - moderate - high VTE Device Contraindication: Treatment Not Indicated VTE Drug Contraindication: N/A - Med Ordered
[2025-07-31 14:14] LABS: Platelet Count 127 X10*3/uL (160-400)
--- NOTE | 2025-07-31 16:05 | MHC.CM.PN ---
PER MD ROUNDS, PT WILL LIKELY BE READY TO DC TOMORROW DCP: HOME [facility]UME [facility]
[2025-07-31 16:17] LABS: Glucose, Whole Blood 117 mg/dL (60-115)
[2025-07-31] MEDS: oxyCODONE HCl Immed Release 5 MG TABLET PO (20:27)
[2025-07-31 20:39] LABS: Glucose, Whole Blood 172 mg/dL (60-115)
[2025-08-01 03:11] VITALS: BP 134/79; PULSE 89; RESP 16; TEMP 36.2; O2SAT 96
[2025-08-01] MEDS: oxyCODONE HCl Immed Release 5 MG TABLET PO ×2 (03:27→09:49)
[2025-08-01 07:27] VITALS: BP 134/97; PULSE 72; RESP 16; TEMP 36; O2SAT 95
[2025-08-01 07:40] LABS: Glucose, Whole Blood 91 mg/dL (60-115)
[2025-08-01] MEDS: 0.9 % Sodium Chloride Flush 3 ML SYRINGE IVFLUSH ×3 (07:53→20:16)
[2025-08-01] MEDS: Metoprolol Succinate ER 50 MG TAB.ER.24H PO ×2 (07:53→20:15)
[2025-08-01 11:06] LABS: Glucose, Whole Blood 146 mg/dL (60-115)
--- NOTE | 2025-08-01 14:27 | PM.PNGS ---
Subjective Subjective Date of Service: 08/01/25 Patient reports: no new complaints Interval history: Patient wants to eat little more solid food feeling okay. Having bowel movements and passing gas Physical Exam Vital Signs: Vital Signs: Last Vital Signs Temp 96.8 F 08/01/25 07:27 Pulse 72 08/01/25 07:27 Resp 16 08/01/25 07:27 BP 134/97 H 08/01/25 07:27 Pulse Ox 95 08/01/25 07:27 O2 Del Method Room Air 08/01/25 07:27 BMI result Body Mass Index 22.7 GI: Other: Abdomen is soft nondistended nontender Objective Data Active Medications Acetaminophen (Acetaminophen 325 Mg Tablet) 650 mg PO Q6H PRN PRN Reason: Pain, Mild 1-3,fever,headache Apixaban (Apixaban 5 Mg Tablet) 5 mg PO BID [facility] Last Admin: 08/01/25 07:53 Dose: 5 mg Documented By: SABA Atorvastatin Calcium (Atorvastatin Calcium 10 Mg Tablet) 10 mg PO BEDTIME [facility] Last Admin: 07/31/25 20:21 Dose: 10 mg Documented By: BRENDA Calcium Carbonate (Calcium Carbonate 750 Mg Tab.Chew) 750 mg PO Q4H PRN PRN Reason: Heartburn Dextrose (Dextrose 50 % 25 Gm/50 Ml Syringe) 25 gm IVPUSH Q15M PRN; Protocol PRN Reason: per Hypoglycemia Standing Ord. Digoxin (Digoxin 0.125 Mg Tablet) 0.125 mg PO DAILY [facility]; Protocol Last Admin: 08/01/25 07:53 Dose: 0.125 mg Documented By: SABA Glucose (Glucose Gel 15 Gm Gel..Gram.) 15 gm PO Q15M PRN; Protocol PRN Reason: per Hypoglycemia Standing Ord. Magnesium Hydroxide (Milk Of Magnesia 30 Ml Oral.Susp) 30 ml PO DAILY PRN PRN Reason: Constipation Melatonin (Melatonin 3 Mg Tablet) 6 mg PO BEDTIME PRN PRN Reason: Insomnia Metoprolol Succinate (Metoprolol Succinate Er 50 Mg Tab.Er.24h) 50 mg PO BID [facility]; Protocol Last Admin: 08/01/25 07:53 Dose: 50 mg Documented By: SABA Metronidazole (Metronidazole 500 Mg Tablet) 500 mg PO BID [facility] Last Admin: 08/01/25 12:43 Dose: 500 mg Documented By: SABA Morphine Sulfate (Morphine Sulfate 4 Mg/Ml Cartridge) 2 mg IVPUSH Q4H PRN; Protocol PRN Reason: Pain, Severe (Pain Scale 7-10) Last Admin: 07/31/25 07:36 Dose: 2 mg Documented By: CARLOTTA Omeprazole (Omeprazole 20 Mg Capsule.) 20 mg PO DAILY@0630 [facility] Last Admin: 08/01/25 06:10 Dose: 20 mg Documented By: BRENDA Ondansetron HCl (Ondansetron Hcl 4 Mg/2 Ml Vial) 4 mg IVPUSH Q8H PRN PRN Reason: Nausea and Vomiting Last Admin: 08/01/25 14:21 Dose: 4 mg Documented By: SABA Oxycodone HCl (Oxycodone Hcl Immed Release 5 Mg Tablet) 5 mg PO Q6H PRN PRN Reason: back pain Last Admin: 08/01/25 09:49 Dose: 5 mg Documented By: SABA Sodium Chloride (0.9 % Sodium Chloride Flush 3 Ml Syringe) 3 ml IVFLUSH [facility] Last Admin: 08/01/25 14:23 Dose: 3 ml Documented By: SABA Labs 07/31/25 08:16 07/30/25 08:24 Labs: Laboratory Results - last 24 hr 07/31/25 07/31/25 08/01/25 16:14 20:08 07:36 POC Glucose 117 H 172 H 91 08/01/25 11:02 POC Glucose 146 H Microbiology Microbiology Results: Microbiology 07/28/25 Unknown Urine Culture - Final Urine clean catch - Clean Catch Midstream Enterobacter cloacae complex Procedures Date of Service Date of Service: 08/01/25 Progress Note: A&P Assessment and plan (1) Diverticulitis of intestine with abscess: Status: Acute Assessment and Plan: 84-year-old female with diverticulitis and abscess improving physically doing well. Would advance her diet as tolerated keep her on a bowel regimen. Continue with at least a 14 day course of antibiotics total and if discharged she can follow up with us in the surgical department as an outpatient in the week. Time Spent With Patient Time: Total time managing care of this patient today ____ minutes. Quality Stroke Does the patient have a stroke diagnosis?: No VTE Prior VTE?: No VTE Risk Level:: Medical - moderate - high VTE Device Contraindication: Treatment Not Indicated VTE Drug Contraindication: N/A - Med Ordered
--- NOTE | 2025-08-01 15:32 | HO.PM.IMPN ---
Subjective Subjective Date of Service: 08/01/25 Interval History: Diverticulitis/abscess Review of Systems Patient is still having some nausea and vomiting Abdominal cramping improving Physical Exam Exam: Exam: Appearance: Alert.? Oriented X3.? cvs: rrr, [id number] . res: clear to auscultation ,no rhonchii or wheezing abd: no rebound or guarding ,llq pain, bs present. ext pulses present , no cyanosis . neuro: axo3 , nonfocal. Vital Signs: Vital Signs: Last Vital Signs Temp 96.8 F 08/01/25 07:27 Pulse 72 08/01/25 07:27 Resp 16 08/01/25 07:27 BP 134/97 H 08/01/25 07:27 Pulse Ox 95 08/01/25 07:27 O2 Del Method Room Air 08/01/25 07:27 BMI result Body Mass Index 22.7 Objective Data Active Medications Acetaminophen (Acetaminophen 325 Mg Tablet) 650 mg PO Q6H PRN PRN Reason: Pain, Mild 1-3,fever,headache Apixaban (Apixaban 5 Mg Tablet) 5 mg PO BID [facility] Last Admin: 08/01/25 07:53 Dose: 5 mg Documented By: SABA Atorvastatin Calcium (Atorvastatin Calcium 10 Mg Tablet) 10 mg PO BEDTIME [facility] Last Admin: 07/31/25 20:21 Dose: 10 mg Documented By: BRENDA Calcium Carbonate (Calcium Carbonate 750 Mg Tab.Chew) 750 mg PO Q4H PRN PRN Reason: Heartburn Dextrose (Dextrose 50 % 25 Gm/50 Ml Syringe) 25 gm IVPUSH Q15M PRN; Protocol PRN Reason: per Hypoglycemia Standing Ord. Digoxin (Digoxin 0.125 Mg Tablet) 0.125 mg PO DAILY [facility]; Protocol Last Admin: 08/01/25 07:53 Dose: 0.125 mg Documented By: SABA Glucose (Glucose Gel 15 Gm Gel..Gram.) 15 gm PO Q15M PRN; Protocol PRN Reason: per Hypoglycemia Standing Ord. Magnesium Hydroxide (Milk Of Magnesia 30 Ml Oral.Susp) 30 ml PO DAILY PRN PRN Reason: Constipation Melatonin (Melatonin 3 Mg Tablet) 6 mg PO BEDTIME PRN PRN Reason: Insomnia Metoprolol Succinate (Metoprolol Succinate Er 50 Mg Tab.Er.24h) 50 mg PO BID [facility]; Protocol Last Admin: 08/01/25 07:53 Dose: 50 mg Documented By: SABA Metronidazole (Metronidazole 500 Mg Tablet) 500 mg PO BID [facility] Last Admin: 08/01/25 12:43 Dose: 500 mg Documented By: SABA Morphine Sulfate (Morphine Sulfate 4 Mg/Ml Cartridge) 2 mg IVPUSH Q4H PRN; Protocol PRN Reason: Pain, Severe (Pain Scale 7-10) Last Admin: 07/31/25 07:36 Dose: 2 mg Documented By: CARLOTTA Omeprazole (Omeprazole 20 Mg Capsule.Dr) 20 mg PO DAILY@0630 [facility] Last Admin: 08/01/25 06:10 Dose: 20 mg Documented By: BRENDA Ondansetron HCl (Ondansetron Hcl 4 Mg/2 Ml Vial) 4 mg IVPUSH Q8H PRN PRN Reason: Nausea and Vomiting Last Admin: 08/01/25 14:21 Dose: 4 mg Documented By: SABA Oxycodone HCl (Oxycodone Hcl Immed Release 5 Mg Tablet) 5 mg PO Q6H PRN PRN Reason: back pain Last Admin: 08/01/25 09:49 Dose: 5 mg Documented By: SABA Sodium Chloride (0.9 % Sodium Chloride Flush 3 Ml Syringe) 3 ml IVFLUSH QSHIFT [facility] Last Admin: 08/01/25 14:23 Dose: 3 ml Documented By: SABA Labs 07/31/25 08:16 07/30/25 08:24 Labs: Laboratory Results - last 24 hr 07/31/25 07/31/25 08/01/25 16:14 20:08 07:36 POC Glucose 117 H 172 H 91 08/01/25 11:02 POC Glucose 146 H Microbiology Microbiology Results: Microbiology 07/28/25 Unknown Urine Culture - Final Urine clean catch - Clean Catch Midstream Enterobacter cloacae complex Assessment and Plan (1) Diverticulitis of intestine with abscess: Status: Acute Assessment and Plan: 84-year-old female with a significant past medical history of atrial fibrillation on Eliquis, 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 Acute Diverticulitis\colitis with abscess formation Not septic ua positive -pyuria/bacteruria ,pending cultures -urine culture gram negative jeannine , blood cultures negative @48hrs switch to full liquid diet surgery consult- minimal improvement, IV Zosyn , pain medication IV. Seen by urology also-lad UA, if does not improve will need cystoscopy. Acute hyponatremia Na of 134-improving with the hydration Thrombocytopenia PLT of 95 from baseline of 156(platlet counts pending from today) likely MM treatment related, continue to monitor no evidence of bleeding Bacteruria No reported urinary symptoms follow Cx Hx Afib Continue Eliquis , Digoxin and Metoprolol HFpEF not in exacerbation watch for fluid overload and DC IVF soon Hx MM with multiple thoracic and lumbar metastatic lesions causing chronic back pain. follows with dr Watts PRN Oxycodone for pain HTN, HLD Statin, Lisinopril GERD Omeprazole DVT PPx: Eliquis Code status: Full code ongoing need of hospital stay for treatment of diverticulitis with abscess -we will continue IV antibiotics and monitor for 24 more hours because patient is still having nausea and vomiting and probably will not able to take p.o. antibiotics currently. Quality Stroke Does the patient have a stroke diagnosis?: No VTE Prior VTE?: No VTE Risk Level:: Medical - moderate - high VTE Device Contraindication: Treatment Not Indicated VTE Drug Contraindication: N/A - Med Ordered
[2025-08-01 16:00] VITALS: BP 122/69; PULSE 53; RESP 16; TEMP 36.2; O2SAT 97
--- NOTE | 2025-08-01 16:15 | PC.NURSE ---
Pt with c/o nausea and stomach cramps after eating lunch. IV zofran given, Dr Tadeo notified. Will hold off on discharge for now
[2025-08-01 16:31] LABS: Glucose, Whole Blood 142 mg/dL (60-115)
[2025-08-01 19:28] LABS: Glucose, Whole Blood 247 mg/dL (60-115)
[2025-08-01 19:41] VITALS: BP 106/64; PULSE 64; RESP 16; TEMP 36.4; O2SAT 95
[2025-08-02] MEDS: oxyCODONE HCl Immed Release 5 MG TABLET PO (02:29)
[2025-08-02 03:19] VITALS: BP 136/78; PULSE 87; RESP 16; TEMP 36.1; O2SAT 95
[2025-08-02 06:08] VITALS: RESP 16
[2025-08-02 07:15] VITALS: BP 128/61; PULSE 73; RESP 14; TEMP 36.8; O2SAT 94
[2025-08-02 07:22] LABS: Glucose, Whole Blood 118 mg/dL (60-115)
[2025-08-02] MEDS: Metoprolol Succinate ER 50 MG TAB.ER.24H PO ×2 (08:12→20:30)
[2025-08-02] MEDS: 0.9 % Sodium Chloride Flush 3 ML SYRINGE IVFLUSH ×3 (08:12→20:31)
[2025-08-02 11:07] LABS: Glucose, Whole Blood 104 mg/dL (60-115)
--- NOTE | 2025-08-02 11:43 | P.PNIM_ITS ---
Subjective Subjective Date of Service: 08/02/25 Interval History: Diverticulitis/abscess Review of Systems has abd crampin Physical Exam 2 Exam: Exam: Appearance: Alert.? Oriented X3.? cvs: [id number], [id number] . res: clear to auscultation ,no rhonchii or wheezing abd: no rebound or guarding ,llq pain, bs present. ext pulses present , no cyanosis . neuro: axo3 , nonfocal. Vital Signs: Vital Signs: Last Vital Signs Temp 98.2 F 08/02/25 07:15 Pulse 73 08/02/25 07:15 Resp 14 08/02/25 07:15 BP 128/61 08/02/25 07:15 Pulse Ox 94 08/02/25 07:15 O2 Del Method Room Air 08/02/25 07:15 BMI result Body Mass Index 22.7 Objective Data Active Medications Acetaminophen (Acetaminophen 325 Mg Tablet) 650 mg PO Q6H PRN PRN Reason: Pain, Mild 1-3,fever,headache Apixaban (Apixaban 5 Mg Tablet) 5 mg PO BID [facility] Last Admin: 08/02/25 08:12 Dose: 5 mg Documented By: JAYNE Atorvastatin Calcium (Atorvastatin Calcium 10 Mg Tablet) 10 mg PO BEDTIME [facility] Last Admin: 08/01/25 20:15 Dose: 10 mg Documented By: BRENDA Calcium Carbonate (Calcium Carbonate 750 Mg Tab.Chew) 750 mg PO Q4H PRN PRN Reason: Heartburn Dextrose (Dextrose 50 % 25 Gm/50 Ml Syringe) 25 gm IVPUSH Q15M PRN; Protocol PRN Reason: per Hypoglycemia Standing Ord. Digoxin (Digoxin 0.125 Mg Tablet) 0.125 mg PO DAILY [facility]; Protocol Last Admin: 08/02/25 08:12 Dose: 0.125 mg Documented By: JAYNE Glucose (Glucose Gel 15 Gm Gel..Gram.) 15 gm PO Q15M PRN; Protocol PRN Reason: per Hypoglycemia Standing Ord. Levofloxacin (Levofloxacin 750 Mg Tablet) 750 mg PO Q24H [facility] Last Admin: 08/02/25 08:12 Dose: 750 mg Documented By: JAYNE Magnesium Hydroxide (Milk Of Magnesia 30 Ml Oral.Susp) 30 ml PO DAILY PRN PRN Reason: Constipation Melatonin (Melatonin 3 Mg Tablet) 6 mg PO BEDTIME PRN PRN Reason: Insomnia Metoprolol Succinate (Metoprolol Succinate Er 50 Mg Tab.Er.24h) 50 mg PO BID [facility]; Protocol Last Admin: 08/02/25 08:12 Dose: 50 mg Documented By: JAYNE Metronidazole (Metronidazole 500 Mg Tablet) 500 mg PO BID [facility] Last Admin: 08/02/25 08:12 Dose: 500 mg Documented By: JAYNE Morphine Sulfate (Morphine Sulfate 4 Mg/Ml Cartridge) 2 mg IVPUSH Q4H PRN; Protocol PRN Reason: Pain, Severe (Pain Scale 7-10) Last Admin: 07/31/25 07:36 Dose: 2 mg Documented By: CARLOTTA Omeprazole (Omeprazole 20 Mg Capsule.Dr) 20 mg PO DAILY@0630 [facility] Last Admin: 08/02/25 06:30 Dose: 20 mg Documented By: NAZ Ondansetron HCl (Ondansetron Hcl 4 Mg/2 Ml Vial) 4 mg IVPUSH Q8H PRN PRN Reason: Nausea and Vomiting Last Admin: 08/02/25 10:11 Dose: 4 mg Documented By: JAYNE Oxycodone HCl (Oxycodone Hcl Immed Release 5 Mg Tablet) 5 mg PO Q6H PRN PRN Reason: back pain Last Admin: 08/02/25 02:29 Dose: 5 mg Documented By: NAZ Sodium Chloride (0.9 % Sodium Chloride Flush 3 Ml Syringe) 3 ml IVFLUSH [facility] Last Admin: 08/02/25 08:12 Dose: 3 ml Documented By: JAYNE Labs 07/31/25 08:16 07/30/25 08:24 Labs: Laboratory Results - last 24 hr 08/01/25 08/01/25 08/02/25 16:27 19:22 07:17 POC Glucose 142 H 247 H 118 H 08/02/25 11:01 POC Glucose 104 Microbiology Microbiology Results: Microbiology 07/28/25 Unknown Urine Culture - Final Urine clean catch - Clean Catch Midstream Enterobacter cloacae complex Assessment and Plan (1) Diverticulitis of intestine with abscess: Status: Acute Assessment and Plan: 84-year-old female with a significant past medical history of atrial fibrillation on Eliquis, 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 Acute Diverticulitis\colitis with abscess formation Not septic ua positive -pyuria/bacteruria ,pending cultures -urine culture gram negative jeannine , blood cultures negative @48hrs Seen by urology also-lad UA, if does not improve will need cystoscopy. Discussed with surgery today: Patient is still have lot of cramping especially with the eating repeat ct abd reviewed with surgery :more similar to previous ct. also shows stool patient is passing bm;s rec: added luxative , change eliquis to lovenox. surgery follow up in am Acute hyponatremia Na of 134-improving with the hydration Thrombocytopenia PLT of 95 from baseline of 156(platlet counts pending from today) likely MM treatment related, continue to monitor no evidence of bleeding Bacteruria No reported urinary symptoms follow Cx Hx Afib Continue Eliquis , Digoxin and Metoprolol HFpEF not in exacerbation watch for fluid overload and DC IVF soon Hx MM with multiple thoracic and lumbar metastatic lesions causing chronic back pain. follows with dr Watts PRN Oxycodone for pain HTN, HLD Statin, Lisinopril GERD Omeprazole DVT PPx: Eliquis Code status: Full code ongoing need of hospital stay for treatment of diverticulitis with abscess -we will continue IV antibiotics and monitor for 24 more hours because patient is still having nausea and vomiting and probably will not able to take p.o. antibiotics currently. Patient's daughter was updated in detail. Quality Stroke Does the patient have a stroke diagnosis?: No VTE Prior VTE?: No VTE Risk Level:: Medical - moderate - high VTE Device Contraindication: Treatment Not Indicated VTE Drug Contraindication: N/A - Med Ordered
[2025-08-02] MEDS: iohexoL 350 MG/ML 100 ML INFUS..BTL IV (14:41)
[2025-08-02 15:21] VITALS: BP 160/77; PULSE 95; RESP 14; TEMP 36.3; O2SAT 96
[2025-08-02 16:09] LABS: Glucose, Whole Blood 114 mg/dL (60-115)
--- NOTE | 2025-08-02 16:51 | PC.NURSE ---
clarification done with the pharmacist in re: anticoagulation treatment . Pharmacist reviewed the order for Lovenox and per drugs safety administration she clarified that is safe to start therapeutic dose of Lovenox after 12 hrs of the last dose of Eliquis Lucille pedraza .
--- NOTE | 2025-08-02 17:13 | PM.PNGS ---
Subjective Subjective Date of Service: 08/02/25 Interval history: Patient was complaining of more abdominal pain cramping necessitating medication with morphine. Denies any fevers or chills. It got worse after she was eating and put on a regular diet yesterday. Denies any fevers or chills. Repeat CT scan was had which shows not much improvement with the sigmoid colon with small abscess still present. There does appear to be a heavy stool burden that maybe causing some colitis. She does have some proctitis ongoing as well. Physical Exam Vital Signs: Vital Signs: Last Vital Signs Temp 97.3 F 08/02/25 15:21 Pulse 95 08/02/25 15:21 Resp 14 08/02/25 15:21 BP 160/77 H 08/02/25 15:21 Pulse Ox 96 08/02/25 15:21 O2 Del Method Room Air 08/02/25 15:21 BMI result Body Mass Index 22.7 Const: General: cooperative, healthy appearing, comfortable and no acute distress GI: Other: Abdomen is soft nontender to deep palpation no guarding no rebound no peritoneal signs Objective Data Active Medications Acetaminophen (Acetaminophen 325 Mg Tablet) 650 mg PO Q6H PRN PRN Reason: Pain, Mild 1-3,fever,headache Atorvastatin Calcium (Atorvastatin Calcium 10 Mg Tablet) 10 mg PO BEDTIME [facility] Last Admin: 08/01/25 20:15 Dose: 10 mg Documented By: BRENDA Calcium Carbonate (Calcium Carbonate 750 Mg Tab.Chew) 750 mg PO Q4H PRN PRN Reason: Heartburn Dextrose (Dextrose 50 % 25 Gm/50 Ml Syringe) 25 gm IVPUSH Q15M PRN; Protocol PRN Reason: per Hypoglycemia Standing Ord. Digoxin (Digoxin 0.125 Mg Tablet) 0.125 mg PO DAILY [facility]; Protocol Last Admin: 08/02/25 08:12 Dose: 0.125 mg Documented By: JAYNE Enoxaparin Sodium (Enoxaparin Sodium 60 Mg/0.6 Ml Syringe) 60 mg SUBCUT Q12H [facility] Glucose (Glucose Gel 15 Gm Gel..Gram.) 15 gm PO Q15M PRN; Protocol PRN Reason: per Hypoglycemia Standing Ord. Levofloxacin (Levofloxacin 750 Mg Tablet) 750 mg PO Q24H [facility] Last Admin: 08/02/25 08:12 Dose: 750 mg Documented By: JAYNE Magnesium Hydroxide (Milk Of Magnesia 30 Ml Oral.Susp) 30 ml PO DAILY PRN PRN Reason: Constipation Melatonin (Melatonin 3 Mg Tablet) 6 mg PO BEDTIME PRN PRN Reason: Insomnia Metoprolol Succinate (Metoprolol Succinate Er 50 Mg Tab.Er.24h) 50 mg PO BID [facility]; Protocol Last Admin: 08/02/25 08:12 Dose: 50 mg Documented By: JAYNE Metronidazole (Metronidazole 500 Mg Tablet) 500 mg PO BID [facility] Last Admin: 08/02/25 08:12 Dose: 500 mg Documented By: JAYNE Morphine Sulfate (Morphine Sulfate 4 Mg/Ml Cartridge) 2 mg IVPUSH Q4H PRN; Protocol PRN Reason: Pain, Severe (Pain Scale 7-10) Last Admin: 08/02/25 16:39 Dose: 2 mg Documented By: JAYNE Omeprazole (Omeprazole 20 Mg Capsule.Dr) 20 mg PO DAILY@0630 [facility] Last Admin: 08/02/25 06:30 Dose: 20 mg Documented By: NAZ Ondansetron HCl (Ondansetron Hcl 4 Mg/2 Ml Vial) 4 mg IVPUSH Q8H PRN PRN Reason: Nausea and Vomiting Last Admin: 08/02/25 10:11 Dose: 4 mg Documented By: JAYNE Oxycodone HCl (Oxycodone Hcl Immed Release 5 Mg Tablet) 5 mg PO Q6H PRN PRN Reason: back pain Last Admin: 08/02/25 02:29 Dose: 5 mg Documented By: NAZ Sodium Chloride (0.9 % Sodium Chloride Flush 3 Ml Syringe) [facility] Last Admin: 08/02/25 15:07 Dose: 3 ml Documented By: JAYNE Labs 07/31/25 08:16 07/30/25 08:24 Labs: Laboratory Results - last 24 hr 08/01/25 08/02/25 08/02/25 19:22 07:17 11:01 POC Glucose 247 H 118 H 104 08/02/25 16:03 POC Glucose 114 Procedures Date of Service Date of Service: 08/02/25 Progress Note: A&P Assessment and plan (1) Diverticulitis of intestine with abscess: Status: Acute Assessment and Plan: 84-year-old female with probable diverticulitis and maybe early entero vesicular fistula clinically seem to have been doing better yesterday in his diet was advanced and now having more abdominal cramping pain. Not wanting to go home isn't feeling improved that way. Repeat CT scan shows significant stool burden maybe causing stercoral sigmoiditis and as a result wound do magnesium citrate to try to clean out her colon more continue on antibiotics. Apparently not much change with the abscess adjacent to the bladder. At this point no need for urgent surgical intervention the patient may not succeed with conservative care. We will ask medical team to hold Eliquis and put on Lovenox and continue with antibiotics and maybe bring down her diet until she has good bowel movements. We will follow along Time Spent With Patient Time: Total time managing care of this patient today ____ minutes. Quality Stroke Does the patient have a stroke diagnosis?: No VTE Prior VTE?: No VTE Risk Level:: Medical - moderate - high VTE Device Contraindication: Treatment Not Indicated VTE Drug Contraindication: N/A - Med Ordered
[2025-08-02 20:00] VITALS: BP 138/85; PULSE 68; RESP 18; TEMP 36.3; O2SAT 96
[2025-08-02 20:06] LABS: Glucose, Whole Blood 135 mg/dL (60-115)
[2025-08-03 03:13] VITALS: BP 118/81; PULSE 100; RESP 18; TEMP 36.1; O2SAT 93
--- NOTE | 2025-08-03 06:12 | PM.PNGS ---
Subjective Subjective Date of Service: 08/03/25 <Kerry Machuca - Last Filed: 08/03/25 07:22> 08/03/25 <Char Durand PA-C - Last Filed: 08/03/25 08:01> 08/04/25 <Roosevelt Beebe MD - Last Filed: 08/04/25 13:50> Interval history: Overnight patient continued to have cramping abdominal pain necessitating morphine. She is now on a liquid diet due to increased cramping when placed on a regular diet. She endorses flatus and an urge to defecate but passes clear mucus. She denies nausea, vomitting, fever and chills. <Kerry Machuca - Last Filed: 08/03/25 07:22> Physical Exam Vital Signs: Vital Signs: Last Vital Signs Temp 97.0 F 08/03/25 03:13 Pulse 100 08/03/25 03:13 Resp 18 08/03/25 03:13 BP 118/81 08/03/25 03:13 Pulse Ox 93 08/03/25 03:13 O2 Del Method Room Air 08/03/25 03:13 BMI result Body Mass Index 22.7 <Kerry Machuca - Last Filed: 08/03/25 07:22> Resp: Effort & Inspection: normal respiratory effort and able to speak in complete sentences <Kerry Machuca - Last Filed: 08/03/25 07:22> GI: Inspection: Yes normal to inspection and Yes scar (Pfannestiel scar) <Kerry Machuca - Last Filed: 08/03/25 07:22> Palpation (GI): Soft to palpation, nontender, no guarding and not rigid <Kerry Machuca - Last Filed: 08/03/25 07:22> Percussion: Yes normal to percussion <Kerry Machuca - Last Filed: 08/03/25 07:22> Objective Data Active Medications Acetaminophen (Acetaminophen 325 Mg Tablet) 650 mg PO Q6H PRN PRN Reason: Pain, Mild 1-3,fever,headache Atorvastatin Calcium (Atorvastatin Calcium 10 Mg Tablet) 10 mg PO BEDTIME [facility] Last Admin: 08/02/25 20:30 Dose: 10 mg Documented By: PEARL Calcium Carbonate (Calcium Carbonate 750 Mg Tab.Chew) 750 mg PO Q4H PRN PRN Reason: Heartburn Dextrose (Dextrose 50 % 25 Gm/50 Ml Syringe) 25 gm IVPUSH Q15M PRN; Protocol PRN Reason: per Hypoglycemia Standing Ord. Digoxin (Digoxin 0.125 Mg Tablet) 0.125 mg PO DAILY [facility]; Protocol Last Admin: 08/02/25 08:12 Dose: 0.125 mg Documented By: JAYNE Enoxaparin Sodium (Enoxaparin Sodium 60 Mg/0.6 Ml Syringe) 60 mg SUBCUT Q12H [facility] Last Admin: 08/02/25 20:31 Dose: 60 mg Documented By: PEARL Glucose (Glucose Gel 15 Gm Gel..Gram.) 15 gm PO Q15M PRN; Protocol PRN Reason: per Hypoglycemia Standing Ord. Levofloxacin (Levaquin) 750 mg in 150 mls @ 100 mls/hr IV Q24H [facility] Last Admin: 08/03/25 06:00 Dose: 100 mls/hr Documented By: PEARL Magnesium Hydroxide (Milk Of Magnesia 30 Ml Oral.Susp) 30 ml PO DAILY PRN PRN Reason: Constipation Melatonin (Melatonin 3 Mg Tablet) 6 mg PO BEDTIME PRN PRN Reason: Insomnia Metoprolol Succinate (Metoprolol Succinate Er 50 Mg Tab.Er.24h) 50 mg PO BID [facility]; Protocol Last Admin: 08/02/25 20:30 Dose: 50 mg Documented By: PEARL Metronidazole (Metronidazole 500 Mg Tablet) 500 mg PO BID [facility] Last Admin: 08/02/25 20:30 Dose: 500 mg Documented By: PEARL Morphine Sulfate (Morphine Sulfate 4 Mg/Ml Cartridge) 2 mg IVPUSH Q4H PRN; Protocol PRN Reason: Pain, Severe (Pain Scale 7-10) Last Admin: 08/03/25 05:39 Dose: 2 mg Documented By: PEARL Omeprazole (Omeprazole 20 Mg Capsule.Dr) 20 mg PO DAILY@0630 [facility] Last Admin: 08/03/25 05:31 Dose: 20 mg Documented By: PEARL Ondansetron HCl (Ondansetron Hcl 4 Mg/2 Ml Vial) 4 mg IVPUSH Q8H PRN PRN Reason: Nausea and Vomiting Last Admin: 08/02/25 10:11 Dose: 4 mg Documented By: JAYNE Oxycodone HCl (Oxycodone Hcl Immed Release 5 Mg Tablet) 5 mg PO Q6H PRN PRN Reason: back pain Last Admin: 08/02/25 02:29 Dose: 5 mg Documented By: NAZ Sodium Chloride (0.9 % Sodium Chloride Flush 3 Ml Syringe) 3 ml IVFLUSH QSHIFT [facility] Last Admin: 08/02/25 20:31 Dose: 3 ml Documented By: PEARL <Kerry Machuca - Last Filed: 08/03/25 07:22> Labs CBC & Chem 7: 08/03/25 06:10 08/03/25 06:10 <Kerry Machuca - Last Filed: 08/03/25 07:22> Labs: Laboratory Results - last 24 hr 08/02/25 08/02/25 08/02/25 07:17 11:01 16:03 POC Glucose 118 H 104 114 08/02/25 19:58 POC Glucose 135 H <Kerry Machuca - Last Filed: 08/03/25 07:22> Microbiology Microbiology Results: Microbiology 07/28/25 18:31 Blood Culture - Final Blood - Venous No growth after 5 days. 07/28/25 18:31 Blood Culture - Final Blood - Venous No growth after 5 days. <Kerry Machuca - Last Filed: 08/03/25 07:22> Procedures Date of Service Date of Service: 08/03/25 <Kerry Machuca - Last Filed: 08/03/25 07:22> 08/03/25 <Char Durand PA-C - Last Filed: 08/03/25 08:01> 08/04/25 <Roosevelt Beebe MD - Last Filed: 08/04/25 13:50> Progress Note: A&P Assessment and plan (1) Diverticulitis of intestine with abscess: Status: Acute <Kerry Machuca - Last Filed: 08/03/25 07:22> (2) Diverticulitis of intestine with abscess: Status: Acute <Kerry Machuca - Last Filed: 08/03/25 07:22> Assessment and Plan: She says she had some crampy abdominal pain of the weekend follow up CAT scan done yesterday shows no changes Abdomen remains very soft, benign and nontender No fever We will review CAT scan with the radiologist Continue IV antibiotics Stool softeners as CAT scan shows large amounts of stool which may be contributory to pain We will follow closely <Roosevelt Beebe MD - Last Filed: 08/04/25 13:50> Assessment and Plan: 1. Diverticulitis/abscess Benign abdominal exam Increased cramping with regular diet, now on liquid diet Repeat CT similar to previous with abscess adjacent to bladder and sigmoid diverticulitis Continue IV antibiotics Endorses urge to defecate and flatus but no BM- continue PO mag citrate Continue to monitor pain with morphine prn <Kerry Machuca - Last Filed: 08/03/25 07:22> 1. Diverticulitis/abscess Benign abdominal exam Increased cramping with regular diet, now on liquid diet Repeat CT similar to previous with abscess adjacent to bladder and sigmoid diverticulitis Continue IV antibiotics Endorses urge to defecate and flatus but no BM- continue PO mag citrate Continue to monitor pain with morphine prn Agree with above assessment by Sven MS-3. Patient had increasing pain over the weekend, CT therefore performed which is virtually unchanged. Abd remains very benign. soft, nontender. Abscess initially deemed unamenable to IR drainage. Will again discuss with then. Had a small bowel movement with mag citrate yesterday, recommend continued bowel regimen to see if this improves her pain. Deescalate diet for now with clear liquids. Cont IV abx. <Char Durand PA-C - Last Filed: 08/03/25 08:01> Time Spent With Patient Time: Total time managing care of this patient today ____ minutes. <Kerry Machuca - Last Filed: 08/03/25 07:22> Quality Stroke Does the patient have a stroke diagnosis?: No <Kerry Machuca - Last Filed: 08/03/25 07:22> VTE Prior VTE?: No <Kerry Machuca - Last Filed: 08/03/25 07:22> VTE Risk Level:: Medical - moderate - high <Kerry Machuca - Last Filed: 08/03/25 07:22> VTE Device Contraindication: Treatment Not Indicated <Kerry Machuca - Last Filed: 08/03/25 07:22> VTE Drug Contraindication: N/A - Med Ordered <Kerry Machuca - Last Filed: 08/03/25 07:22>
[2025-08-03 06:21] LABS: Hematocrit 39.0 % (37.0-47.0); Hemoglobin 12.8 g/dl (12.0-16.0); Mean Corpuscular HGB Conc 32.8 g/dl (31.0-35.0); Mean Corpuscular Hemoglobin 30.6 pg (27.0-33.0); Mean Corpuscular Volume 93.3 fL (80.0-98.0); NRBC Abs Auto 0.000 X10*3/uL (0.0-0.012); NRBC Pct Auto 0.0 /100WBC (0.0-0.2); Platelet Count 207 X10*3/uL (160-400); Red Blood Count 4.18 X10*6/uL (4.20-5.50); White Blood Count 10.1 X10*3/uL (4.8-10.8)
[2025-08-03 06:35] LABS: Anion Gap 11 (12-20); Blood Urea Nitrogen 11 mg/dL (9-16); Calcium 8.7 mg/dL (8.4-10.2); Carbon Dioxide 28 mmol/L (22-29); Chloride 99 mmol/L (96-108); Creatinine Clr Calc Pharmacy 64.1; Estimated Glomerular Filt Rate > 60; Potassium 4.4 mmol/L (3.3-5.1); Sodium 134 mmol/L (135-145)
[2025-08-03 06:50] VITALS: BP 127/62; PULSE 71; RESP 16; TEMP 36.9; O2SAT 95
[2025-08-03 07:07] LABS: Glucose, Whole Blood 129 mg/dL (60-115)
[2025-08-03] MEDS: Metoprolol Succinate ER 50 MG TAB.ER.24H PO ×2 (07:39→20:30)
[2025-08-03] MEDS: Milk of Magnesia 30 ML ORAL.SUSP PO (07:47)
[2025-08-03 11:07] LABS: Glucose, Whole Blood 113 mg/dL (60-115)
--- NOTE | 2025-08-03 11:59 | MHC.CLN ---
F/U DIET CHANGED TO CLEAR LIQUIDS 08/02 DUE TO PATIENT NOT TOLERATING DIET. ADDING ENSURE CLEAR TID TO PROMOTE NUTRITIONAL INTAKE. SUPPLEMENT PROVIDES 720 KCALS, 24 G PROTEIN. DX METASTATIC CANCER. FOLLOW FOR DIET ADVANCEMENT AND PO INTAKE.
[2025-08-03 14:02] VITALS: RESP 20
[2025-08-03] MEDS: 0.9 % Sodium Chloride Flush 3 ML SYRINGE IVFLUSH ×2 (14:02→20:30)
[2025-08-03 14:28] VITALS: BP 127/62; PULSE 71; O2SAT 95
--- NOTE | 2025-08-03 14:28 | HO.PM.IMPN ---
Subjective Subjective Date of Service: 08/03/25 Interval History: Diverticulitis/abscess Review of Systems still has abd cramping Review of Systems: Yes all other systems are reviewed and are negative Physical Exam Exam: Exam: Appearance: Alert.? Oriented X3.? cvs: rrr, [id number] . res: clear to auscultation ,no rhonchii or wheezing abd: no rebound or guarding ,llq pain, bs present. ext pulses present , no cyanosis . neuro: axo3 , nonfocal. Vital Signs: Vital Signs: Last Vital Signs Temp 98.4 F 08/03/25 06:50 Pulse 71 08/03/25 06:50 Resp 20 08/03/25 14:02 BP 127/62 08/03/25 06:50 Pulse Ox 95 08/03/25 06:50 O2 Del Method Room Air 08/03/25 06:50 BMI result Body Mass Index 22.7 Objective Data Active Medications Acetaminophen (Acetaminophen 325 Mg Tablet) 650 mg PO Q6H PRN PRN Reason: Pain, Mild 1-3,fever,headache Atorvastatin Calcium (Atorvastatin Calcium 10 Mg Tablet) 10 mg PO BEDTIME [facility] Last Admin: 08/02/25 20:30 Dose: 10 mg Documented By: PEARL Calcium Carbonate (Calcium Carbonate 750 Mg Tab.Chew) 750 mg PO Q4H PRN PRN Reason: Heartburn Dextrose (Dextrose 50 % 25 Gm/50 Ml Syringe) 25 gm IVPUSH Q15M PRN; Protocol PRN Reason: per Hypoglycemia Standing Ord. Digoxin (Digoxin 0.125 Mg Tablet) 0.125 mg PO DAILY [facility]; Protocol Last Admin: 08/03/25 07:38 Dose: 0.125 mg Documented By: ERICH Docusate Sodium (Docusate Sodium 100 Mg Capsule) 100 mg PO BID [facility] Last Admin: 08/03/25 11:01 Dose: 100 mg Documented By: ERICH Enoxaparin Sodium (Enoxaparin Sodium 60 Mg/0.6 Ml Syringe) 60 mg SUBCUT Q12H [facility] Last Admin: 08/03/25 07:38 Dose: 60 mg Documented By: ERICH Glucose (Glucose Gel 15 Gm Gel..Gram.) 15 gm PO Q15M PRN; Protocol PRN Reason: per Hypoglycemia Standing Ord. Levofloxacin (Levaquin) 750 mg in 150 mls @ 100 mls/hr IV Q24H [facility] Last Infusion: 08/03/25 07:48 Dose: Infused Documented By: ERICH Magnesium Hydroxide (Milk Of Magnesia 30 Ml Oral.Susp) 30 ml PO DAILY PRN PRN Reason: Constipation Last Admin: 08/03/25 07:47 Dose: 30 ml Documented By: ERICH Melatonin (Melatonin 3 Mg Tablet) 6 mg PO BEDTIME PRN PRN Reason: Insomnia Metoprolol Succinate (Metoprolol Succinate Er 50 Mg Tab.Er.24h) 50 mg PO BID [facility]; Protocol Last Admin: 08/03/25 07:39 Dose: 50 mg Documented By: ERICH Metronidazole (Metronidazole 500 Mg Tablet) 500 mg PO BID [facility] Last Admin: 08/03/25 07:38 Dose: 500 mg Documented By: ERICH Morphine Sulfate (Morphine Sulfate 4 Mg/Ml Cartridge) 2 mg IVPUSH Q4H PRN; Protocol PRN Reason: Pain, Severe (Pain Scale 7-10) Last Admin: 08/03/25 14:02 Dose: 2 mg Documented By: ERICH Omeprazole (Omeprazole 20 Mg Capsule.Dr) 20 mg PO DAILY@0630 [facility] Last Admin: 08/03/25 05:31 Dose: 20 mg Documented By: PEARL Ondansetron HCl (Ondansetron Hcl 4 Mg/2 Ml Vial) 4 mg IVPUSH Q8H PRN PRN Reason: Nausea and Vomiting Last Admin: 08/02/25 10:11 Dose: 4 mg Documented By: JAYNE Polyethylene Glycol (Polyethylene Glycol 3350 17 Gm Powd.Pack) 17 gm PO DAILY [facility] Last Admin: 08/03/25 11:00 Dose: 17 gm Documented By: ERICH Sodium Chloride (0.9 % Sodium Chloride Flush 3 Ml Syringe) 3 ml IVFLUSH QSHIFT [facility] Last Admin: 08/03/25 14:02 Dose: 3 ml Documented By: ERICH Labs 08/03/25 06:10 08/03/25 06:10 Labs: Laboratory Results - last 24 hr 08/02/25 08/02/25 08/03/25 16:03 19:58 06:10 MCV 93.3 MCH 30.6 MCHC 32.8 RDW 14.2 Plt Count 207 D MPV 11.8 Absolute Nucleated RBC 0.000 Nucleated RBC % (auto) 0.0 Anion Gap 11 L Estim Creat Clear Calc 64.1 Estimated GFR > 60 POC Glucose 114 135 H Random Glucose 125 H Calcium 8.7 D 08/03/25 08/03/25 07:00 11:01 MCV MCH MCHC RDW Plt Count MPV Absolute Nucleated RBC Nucleated RBC % (auto) Anion Gap Estim Creat Clear Calc Estimated GFR POC Glucose 129 H 113 Random Glucose Calcium Microbiology Microbiology Results: Microbiology 07/28/25 18:31 Blood Culture - Final Blood - Venous No growth after 5 days. 07/28/25 18:31 Blood Culture - Final Blood - Venous No growth after 5 days. Assessment and Plan (1) Thrombocytopenia: Status: Acute (2) Diverticulitis of intestine with abscess: Status: Acute Plan 84-year-old female with a significant past medical history of atrial fibrillation on Eliquis, 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 Acute Diverticulitis\colitis with abscess formation Not septic ua positive -pyuria/bacteruria ,pending cultures -urine culture gram negative jeannine , blood cultures negative @48hrs Seen by urology also-lad UA, if does not improve will need cystoscopy. Discussed with surgery today: Patient is still have lot of cramping especially with the eating repeat ct abd reviewed with surgery :more similar to previous ct. also shows stool rec: added luxative , change eliquis to lovenox. surgery follow following Acute hyponatremia Na of 134-improving with the hydration Thrombocytopenia PLT in 200's likely MM treatment related, continue to monitor no evidence of bleeding Bacteruria No reported urinary symptoms follow Cx Hx Afib Continue Eliquis , Digoxin and Metoprolol HFpEF not in exacerbation watch for fluid overload and DC IVF soon Hx MM with multiple thoracic and lumbar metastatic lesions causing chronic back pain. follows with dr Watts PRN Oxycodone for pain HTN, HLD Statin, Lisinopril GERD Omeprazole DVT PPx: Eliquis Code status: Full code ongoing need of hospital stay for treatment of diverticulitis with abscess -we will continue IV antibiotics and monitor because patient is still symptomatic, once improves then we will consider p.o. antibiotics. Quality Stroke Does the patient have a stroke diagnosis?: No VTE Prior VTE?: No VTE Risk Level:: Medical - moderate - high VTE Device Contraindication: Treatment Not Indicated VTE Drug Contraindication: N/A - Med Ordered
[2025-08-03 15:13] VITALS: BP 122/83; PULSE 64; RESP 16; TEMP 36.2; O2SAT 96
--- NOTE | 2025-08-03 15:20 | MHC.CM.PN ---
Patient is not medically clear to discharge today. DP Resume [employer]. Patient willtransport to home with her daughter.
[2025-08-03 16:08] LABS: Glucose, Whole Blood 110 mg/dL (60-115)
--- NOTE | 2025-08-03 16:34 | PM.EVENT ---
Event Note Date of Service: 08/04/25 Event Note: Seen again on late afternoon rounds Describes occasional crampy lower abdominal pain Abdomen is soft and benign No dysuria No fever CAT scan reviewed with radiologist - abscess in the pelvis is small and IR drainage not recommended Continue IV antibiotics for now We will continue to follow closely Stool softeners as she appears to have large amounts of stools in the colon Time Spent With Patient Time: Total time managing care of this patient today ____ minutes.
[2025-08-03 20:00] VITALS: BP 147/92; PULSE 77; RESP 17; TEMP 36.3; O2SAT 96
[2025-08-03 20:03] LABS: Glucose, Whole Blood 117 mg/dL (60-115)
[2025-08-04 03:23] VITALS: BP 134/82; PULSE 71; RESP 18; TEMP 36.3; O2SAT 94
--- NOTE | 2025-08-04 05:53 | P.PNGS_ITS ---
Subjective Subjective Date of Service: 08/04/25 <Kerry Machuca - Last Filed: 08/04/25 07:34> 08/04/25 <Char Durand PA-C - Last Filed: 08/04/25 08:02> 08/04/25 <Roosevelt Beebe MD - Last Filed: 08/04/25 13:50> Interval history: Patient slept well overnight. Last BM was this AM diarrhea. She is on a clear diet. Abdominal cramping persists and is aggrevated by PO intake. < Kerry Machuca - Last Filed: 08/04/25 07:34> Physical Exam 2 Vital Signs: Vital Signs: Last Vital Signs Temp 97.4 F 08/04/25 03:23 Pulse 71 08/04/25 03:23 Resp 18 08/04/25 03:23 BP 134/82 08/04/25 03:23 Pulse Ox 94 08/04/25 03:23 O2 Del Method Room Air 08/04/25 03:23 BMI result Body Mass Index 22.7 <Kerry Machuca - Last Filed: 08/04/25 07:34> Const: General: cooperative, healthy appearing and no acute distress < Kerry Machuca - Last Filed: 08/04/25 07:34> Orientation/consciousness: patient oriented x3 <Char Durand PA-C - Last Filed: 08/04/25 08:02> Resp: Effort & Inspection: normal respiratory effort and able to speak in complete sentences <Char Durand PA-C - Last Filed: 08/04/25 08:02> GI: Inspection: Yes normal to inspection and No distended <Kerry Machuca - Last Filed: 08/04/25 07:34> Palpation (GI): Soft to palpation, nontender and no guarding <Kerry Machuca - Last Filed: 08/04/25 07:34> Skin: General skin exam: no rashes or lesions noted <DANIEL Laughlin Last Filed: 08/04/25 08:02> Neuro: General: patient oriented x3 and moves all extremities <DANIEL Laughlin Last Filed: 08/04/25 08:02> Objective Data Active Medications Acetaminophen (Acetaminophen 325 Mg Tablet) 650 mg PO Q6H PRN PRN Reason: Pain, Mild 1-3,fever,headache Atorvastatin Calcium (Atorvastatin Calcium 10 Mg Tablet) 10 mg PO BEDTIME [facility] Last Admin: 08/03/25 20:34 Dose: Not Given Documented By: NELSON Non-Admin Reason: Patient Refused Calcium Carbonate (Calcium Carbonate 750 Mg Tab.Chew) 750 mg PO Q4H PRN PRN Reason: Heartburn Dextrose (Dextrose 50 % 25 Gm/50 Ml Syringe) 25 gm IVPUSH Q15M PRN; Protocol PRN Reason: per Hypoglycemia Standing Ord. Digoxin (Digoxin 0.125 Mg Tablet) 0.125 mg PO DAILY [facility]; Protocol Last Admin: 08/03/25 07:38 Dose: 0.125 mg Documented By: ERICH Docusate Sodium (Docusate Sodium 100 Mg Capsule) 100 mg PO BID [facility] Last Admin: 08/03/25 20:30 Dose: 100 mg Documented By: NELSON Enoxaparin Sodium (Enoxaparin Sodium 60 Mg/0.6 Ml Syringe) 60 mg SUBCUT Q12H [facility] Last Admin: 08/03/25 20:30 Dose: 60 mg Documented By: NELSON Glucose (Glucose Gel 15 Gm Gel..Gram.) 15 gm PO Q15M PRN; Protocol PRN Reason: per Hypoglycemia Standing Ord. Levofloxacin (Levaquin) 750 mg in 150 mls @ 100 mls/hr IV Q24H [facility] Last Infusion: 08/03/25 07:48 Dose: Infused Documented By: ERICH Magnesium Hydroxide (Milk Of Magnesia 30 Ml Oral.Susp) 30 ml PO DAILY PRN PRN Reason: Constipation Last Admin: 08/03/25 07:47 Dose: 30 ml Documented By: ERICH Melatonin (Melatonin 3 Mg Tablet) 6 mg PO BEDTIME PRN PRN Reason: Insomnia Metoprolol Succinate (Metoprolol Succinate Er 50 Mg Tab.Er.24h) 50 mg PO BID [facility]; Protocol Last Admin: 08/03/25 20:30 Dose: 50 mg Documented By: NELSON Metronidazole (Metronidazole 500 Mg Tablet) 500 mg PO BID [facility] Last Admin: 08/03/25 20:30 Dose: 500 mg Documented By: NELSON Morphine Sulfate (Morphine Sulfate 4 Mg/Ml Cartridge) 2 mg IVPUSH Q4H PRN; Protocol PRN Reason: Pain, Severe (Pain Scale 7-10) Last Admin: 08/03/25 22:06 Dose: 2 mg Documented By: NELSON Omeprazole (Omeprazole 20 Mg Capsule.Dr) 20 mg PO DAILY@0630 [facility] Last Admin: 08/03/25 05:31 Dose: 20 mg Documented By: PEARL Ondansetron HCl (Ondansetron Hcl 4 Mg/2 Ml Vial) 4 mg IVPUSH Q8H PRN PRN Reason: Nausea and Vomiting Last Admin: 08/02/25 10:11 Dose: 4 mg Documented By: JAYNE Polyethylene Glycol (Polyethylene Glycol 3350 17 Gm Powd.Pack) 17 gm PO DAILY [facility] Last Admin: 08/03/25 11:00 Dose: 17 gm Documented By: ERICH Sodium Chloride (0.9 % Sodium Chloride Flush 3 Ml Syringe) 3 ml IVFLUSH QSHIFT [facility] Last Admin: 08/03/25 20:30 Dose: 3 ml Documented By: NELSON <Kerry Machuca - Last Filed: 08/04/25 07:34> Labs CBC & Chem 7: 08/03/25 06:10 08/03/25 06:10 <Kerry Machuca - Last Filed: 08/04/25 07:34> Labs: Laboratory Results - last 24 hr 08/03/25 08/03/25 08/03/25 06:10 07:00 11:01 MCV 93.3 MCH 30.6 MCHC 32.8 RDW 14.2 Plt Count 207 D MPV 11.8 Absolute Nucleated RBC 0.000 Nucleated RBC % (auto) 0.0 Anion Gap 11 L Estim Creat Clear Calc 64.1 Estimated GFR > 60 POC Glucose 129 H 113 Random Glucose 125 H Calcium 8.7 D 08/03/25 08/03/25 16:02 19:47 MCV MCH MCHC RDW Plt Count MPV Absolute Nucleated RBC Nucleated RBC % (auto) Anion Gap Estim Creat Clear Calc Estimated GFR POC Glucose 110 117 H Random Glucose Calcium <Kerry Machuca - Last Filed: 08/04/25 07:34> Procedures Date of Service Date of Service: 08/04/25 <Kerry Machuca - Last Filed: 08/04/25 07:34> 08/04/25 <Char Durand PA-C - Last Filed: 08/04/25 08:02> 08/04/25 <Roosevelt Beebe MD - Last Filed: 08/04/25 13:50> Progress Note: A&P Assessment and plan (1) Diverticulitis of intestine with abscess: Status: Acute <Kerry Machuca - Last Filed: 08/04/25 07:34> Assessment and Plan: She continues to have ?spasms? in the lower abdomen Denies urinary complaints Passing small amounts of stool Abdomen remained soft and benign wound continue with stool softeners for now I have had multiple discussions with the patient and her daughter They have expressed desire to avoid any surgical intervention as best as possible Patient does not have any fever and looks well overall We will continue current treatment await more consistency of bowel movements We will follow along I have seen and examined the patient independently <Roosevelt Beebe MD - Last Filed: 08/04/25 13:50> Assessment and Plan: 1. Diverticulitis/abscess Benign abdominal exam Abdominal cramping Continue to monitor pain with IV morphine Pelvic abcess on CT IR recommended against intervening Continue IV antibiotics Had small BM today. Continue bowel regimen Encourage OOB <Kerry Machuca - Last Filed: 08/04/25 07:34> 1. Diverticulitis/abscess Benign abdominal exam Abdominal cramping Continue to monitor pain with IV morphine Pelvic abcess on CT IR recommended against intervening Continue IV antibiotics Had small BM today. Continue bowel regimen Encourage OOB Agree with above assessment by Sven MS-3. Still having some cramping abd pain, very small stool this morning. Abd remains very benign and soft, nontender. Overall, picture unchanged. Pain maybe mildly improved. Will cont bowel regimen, IV abx for now in attempts to avoid any surgical intervention in this patient with advanced age and comorbidities. OOB/ambulation and increasing activity. < Char Durand PA-C - Last Filed: 08/04/25 08:02> Time Spent With Patient Time: Total time managing care of this patient today ____ minutes. <Kerry Machuca - Last Filed: 08/04/25 07:34> Quality Stroke Does the patient have a stroke diagnosis?: No <Kerry Machuca - Last Filed: 08/04/25 07:34> VTE Prior VTE?: No <Kerry Machuca - Last Filed: 08/04/25 07:34> VTE Risk Level:: Medical - moderate - high <Kerry Machuca - Last Filed: 08/04/25 07:34> VTE Device Contraindication: Treatment Not Indicated <Kerry Machuca - Last Filed: 08/04/25 07:34> VTE Drug Contraindication: N/A - Med Ordered <Kerry Machuca - Last Filed: 08/04/25 07:34>
--- NOTE | 2025-08-04 07:30 | PC.NURSE ---
IV antibiotic Levofloxacin was infusing when arrived to patient's room for assessment, scanned medication to show infusion in NOV. Checked with patient and she believes the material handler 1st shift RN gave her Omeprazole.
[2025-08-04 08:00] VITALS: BP 130/77; PULSE 86; RESP 18; TEMP 36.3; O2SAT 96
[2025-08-04 08:12] LABS: Glucose, Whole Blood 133 mg/dL (60-115)
[2025-08-04] MEDS: Metoprolol Succinate ER 50 MG TAB.ER.24H PO ×2 (09:13→20:46)
[2025-08-04] MEDS: 0.9 % Sodium Chloride Flush 3 ML SYRINGE IVFLUSH ×3 (09:14→19:55)
[2025-08-04 11:52] LABS: Glucose, Whole Blood 120 mg/dL (60-115)
--- NOTE | 2025-08-04 14:10 | PC.NURSE ---
Patient ambulated to bathroom with DIRECTOR OF [employer] and walker. While patient was in bathroom, DIRECTOR [employer] got a hold of nursing to show this nurse her bowel output. Patient still having trouble having a bowel movement, ambulating in unit throughout shift, fluids encouraged. Bowel output appeared mucousy and blood tinged, refer to photo below, provider Carlyle notified via [employer].
--- NOTE | 2025-08-04 14:51 | HO.PM.IMPN ---
Subjective Subjective Date of Service: 08/04/25 Interval History: Diverticulitis/abscess gib Review of Systems Patient is still have cramping Has mucousy stool withblood tinged no fever or chills Review of Systems: Yes all other systems are reviewed and are negative Physical Exam Exam: Exam: Appearance: Alert.? Oriented X3.? cvs: rrr, [id number] . res: clear to auscultation ,no rhonchii or wheezing abd: no rebound or guarding ,llq pain/crampin, bs present. ext pulses present , no cyanosis . neuro: axo3 , nonfocal. Vital Signs: Vital Signs: Last Vital Signs Temp 97.4 F 08/04/25 08:00 Pulse 86 08/04/25 08:00 Resp 18 08/04/25 08:00 BP 130/77 08/04/25 08:00 Pulse Ox 96 08/04/25 08:00 O2 Del Method Room Air 08/04/25 08:00 BMI result Body Mass Index 22.7 Objective Data Active Medications Acetaminophen (Acetaminophen 325 Mg Tablet) 650 mg PO Q6H PRN PRN Reason: Pain, Mild 1-3,fever,headache Atorvastatin Calcium (Atorvastatin Calcium 10 Mg Tablet) 10 mg PO BEDTIME [facility] Last Admin: 08/03/25 20:34 Dose: Not Given Documented By: NELSON Non-Admin Reason: Patient Refused Calcium Carbonate (Calcium Carbonate 750 Mg Tab.Chew) 750 mg PO Q4H PRN PRN Reason: Heartburn Dextrose (Dextrose 50 % 25 Gm/50 Ml Syringe) 25 gm IVPUSH Q15M PRN; Protocol PRN Reason: per Hypoglycemia Standing Ord. Digoxin (Digoxin 0.125 Mg Tablet) 0.125 mg PO DAILY [facility]; Protocol Last Admin: 08/04/25 09:13 Dose: 0.125 mg Documented By: GA Docusate Sodium (Docusate Sodium 100 Mg Capsule) 100 mg PO BID [facility] Last Admin: 08/04/25 09:13 Dose: 100 mg Documented By: GA Enoxaparin Sodium (Enoxaparin Sodium 60 Mg/0.6 Ml Syringe) 60 mg SUBCUT Q12H [facility] Last Admin: 08/04/25 09:13 Dose: 60 mg Documented By: GA Glucose (Glucose Gel 15 Gm Gel..Gram.) 15 gm PO Q15M PRN; Protocol PRN Reason: per Hypoglycemia Standing Ord. Levofloxacin (Levaquin) 750 mg in 150 mls @ 100 mls/hr IV Q24H [facility] Last Infusion: 08/04/25 09:12 Dose: Infused Documented By: GA Magnesium Hydroxide (Milk Of Magnesia 30 Ml Oral.Susp) 30 ml PO DAILY PRN PRN Reason: Constipation Last Admin: 08/03/25 07:47 Dose: 30 ml Documented By: ERICH Melatonin (Melatonin 3 Mg Tablet) 6 mg PO BEDTIME PRN PRN Reason: Insomnia Metoprolol Succinate (Metoprolol Succinate Er 50 Mg Tab.Er.24h) 50 mg PO BID [facility]; Protocol Last Admin: 08/04/25 09:13 Dose: 50 mg Documented By: GA Metronidazole (Metronidazole 500 Mg Tablet) 500 mg PO BID [facility] Last Admin: 08/04/25 09:13 Dose: 500 mg Documented By: GA Morphine Sulfate (Morphine Sulfate 4 Mg/Ml Cartridge) 2 mg IVPUSH Q4H PRN; Protocol PRN Reason: Pain, Severe (Pain Scale 7-10) Last Admin: 08/03/25 22:06 Dose: 2 mg Documented By: NELSON Omeprazole (Omeprazole 20 Mg Capsule.Dr) 20 mg PO DAILY@0630 [facility] Last Admin: 08/03/25 05:31 Dose: 20 mg Documented By: PEARL Ondansetron HCl (Ondansetron Hcl 4 Mg/2 Ml Vial) 4 mg IVPUSH Q8H PRN PRN Reason: Nausea and Vomiting Last Admin: 08/02/25 10:11 Dose: 4 mg Documented By: JAYNE Pantoprazole Sodium (Pantoprazole Sodium 40 Mg/10 Ml Vial) 40 mg IVPUSH BID@0630,1630 [facility] Polyethylene Glycol (Polyethylene Glycol 3350 17 Gm Powd.Pack) 17 gm PO DAILY [facility] Last Admin: 08/04/25 09:13 Dose: 17 gm Documented By: GA Sodium Chloride (0.9 % Sodium Chloride Flush 3 Ml Syringe) 3 ml IVFLUSH QSHIFT [facility] Last Admin: 08/04/25 09:14 Dose: 3 ml Documented By: GA Labs 08/03/25 06:10 08/03/25 06:10 Labs: Laboratory Results - last 24 hr 08/03/25 08/03/25 08/04/25 16:02 19:47 07:34 POC Glucose 110 117 H 133 H 08/04/25 11:44 POC Glucose 120 H Assessment and Plan (1) GIB (gastrointestinal bleeding): Status: Acute Plan 84-year-old female with a significant past medical history of atrial fibrillation on Eliquis, 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 Acute Diverticulitis\colitis with abscess formation Not septic ua positive -pyuria/bacteruria ,pending cultures -urine culture gram -Enterobacter Colace ,, blood cultures negative @48hrs Today also have Possible gib ? Diverticular plan: moniter cbc closely continue iv antibiotics , ppi Seen by urology also-lad UA, if does not improve will need cystoscopy. eliquis to lovenox-will hold lovenox for today until Gi eval. surgery follow following Acute hyponatremia Na of 134-improving with the hydration Thrombocytopenia PLT improving 200's has hx MM treatment related, continue to monitor no evidence of bleeding Bacteruria No reported urinary symptoms follow Cx Hx Afib hold lovenox(as above), Digoxin and Metoprolol HFpEF not in exacerbation watch for fluid overload and DC IVF soon Hx MM with multiple thoracic and lumbar metastatic lesions causing chronic back pain. follows with dr Watts PRFer Oxycodone for pain HTN, HLD Statin, Lisinopril GERD Omeprazole DVT PPx: Eliquis Code status: Full code ongoing need of hospital stay for treatment of diverticulitis with abscess , Gi Bleed-we will continue IV antibiotics and monitor because patient is still symptomatic, once improves then we will consider p.o. antibiotics. Quality Stroke Does the patient have a stroke diagnosis?: No VTE Prior VTE?: No VTE Risk Level:: Medical - moderate - high VTE Device Contraindication: Treatment Not Indicated VTE Drug Contraindication: N/A - Med Ordered
[2025-08-04 15:15] LABS: Hematocrit 36.4 % (37.0-47.0); Hemoglobin 12.2 g/dl (12.0-16.0); Mean Corpuscular HGB Conc 33.5 g/dl (31.0-35.0); Mean Corpuscular Hemoglobin 30.5 pg (27.0-33.0); Mean Corpuscular Volume 91.0 fL (80.0-98.0); NRBC Abs Auto 0.000 X10*3/uL (0.0-0.012); NRBC Pct Auto 0.0 /100WBC (0.0-0.2); Platelet Count 244 X10*3/uL (160-400); Red Blood Count 4.00 X10*6/uL (4.20-5.50); White Blood Count 7.6 X10*3/uL (4.8-10.8)
[2025-08-04 15:40] VITALS: BP 131/85; PULSE 65; RESP 18; TEMP 35.9; O2SAT 96
[2025-08-04 16:31] LABS: Glucose, Whole Blood 112 mg/dL (60-115)
[2025-08-04 19:09] VITALS: BP 144/78; PULSE 99; RESP 18; TEMP 36.1; O2SAT 95
[2025-08-04 20:00] LABS: Glucose, Whole Blood 117 mg/dL (60-115)
[2025-08-04 20:05] LABS: Hematocrit 36.5 % (37.0-47.0); Hemoglobin 12.3 g/dl (12.0-16.0); Mean Corpuscular HGB Conc 33.7 g/dl (31.0-35.0); Mean Corpuscular Hemoglobin 30.6 pg (27.0-33.0); Mean Corpuscular Volume 90.8 fL (80.0-98.0); NRBC Abs Auto 0.000 X10*3/uL (0.0-0.012); NRBC Pct Auto 0.0 /100WBC (0.0-0.2); Platelet Count 248 X10*3/uL (160-400); Red Blood Count 4.02 X10*6/uL (4.20-5.50); White Blood Count 7.5 X10*3/uL (4.8-10.8)
[2025-08-04 20:46] VITALS: BP 128/74; PULSE 80
[2025-08-05 02:14] VITALS: BP 122/80; PULSE 102; RESP 16; TEMP 36.1; O2SAT 96
[2025-08-05 06:16] LABS: Hematocrit 36.6 % (37.0-47.0); Hemoglobin 12.3 g/dl (12.0-16.0); Mean Corpuscular HGB Conc 33.6 g/dl (31.0-35.0); Mean Corpuscular Hemoglobin 30.4 pg (27.0-33.0); Mean Corpuscular Volume 90.6 fL (80.0-98.0); NRBC Abs Auto 0.000 X10*3/uL (0.0-0.012); NRBC Pct Auto 0.0 /100WBC (0.0-0.2); Platelet Count 268 X10*3/uL (160-400); Red Blood Count 4.04 X10*6/uL (4.20-5.50); White Blood Count 7.3 X10*3/uL (4.8-10.8)
--- NOTE | 2025-08-05 06:27 | PM.PNGS ---
Subjective Subjective Date of Service: 08/05/25 <Kerry Machuca - Last Filed: 08/05/25 06:46> 08/05/25 <Roosevelt Beebe MD - Last Filed: 08/05/25 08:15> 08/05/25 <Char Durand PA-C - Last Filed: 08/05/25 08:44> Interval history: Patient reports more severe abdominal cramping that improved with pain medication. Nausea improved with medications. Had small BM overnight. She is currently on a clear diet and states the abdominal pain is aggravated by cold liquids and soothed by warm liquids like soup. OOB ambulating without difficulty. She denies vomitting, fever and chills. <Kerry Machuca - Last Filed: 08/05/25 06:46> Physical Exam Vital Signs: Vital Signs: Last Vital Signs Temp 96.9 F 08/05/25 02:14 Pulse 102 H 08/05/25 02:14 Resp 16 08/05/25 02:14 BP 122/80 08/05/25 02:14 Pulse Ox 96 08/05/25 02:14 O2 Del Method Room Air 08/05/25 02:14 BMI result Body Mass Index 22.7 <Kerry Machuca - Last Filed: 08/05/25 06:46> Const: General: cooperative, no acute distress and alert <Kerry Machuca - Last Filed: 08/05/25 06:46> Orientation/consciousness: patient oriented x3 <Kerry Mcahuca - Last Filed: 08/05/25 06:46> GI: Inspection: Yes normal to inspection <Kerry Machuca - Last Filed: 08/05/25 06:46> Palpation (GI): Soft to palpation, nontender, no guarding and not rigid <Kerry Machuca - Last Filed: 08/05/25 06:46> Percussion: Yes normal to percussion <Kerry Machuca - Last Filed: 08/05/25 06:46> Neuro: General: patient oriented x3 <Kerry Machuca - Last Filed: 08/05/25 06:46> Objective Data Active Medications Acetaminophen (Acetaminophen 325 Mg Tablet) 650 mg PO Q6H PRN PRN Reason: Pain, Mild 1-3,fever,headache Atorvastatin Calcium (Atorvastatin Calcium 10 Mg Tablet) 10 mg PO BEDTIME [facility] Last Admin: 08/04/25 20:45 Dose: 10 mg Documented By: MAXIM Calcium Carbonate (Calcium Carbonate 750 Mg Tab.Chew) 750 mg PO Q4H PRN PRN Reason: Heartburn Dextrose (Dextrose 50 % 25 Gm/50 Ml Syringe) 25 gm IVPUSH Q15M PRN; Protocol PRN Reason: per Hypoglycemia Standing Ord. Digoxin (Digoxin 0.125 Mg Tablet) 0.125 mg PO DAILY [facility] [place]; Protocol Last Admin: 08/04/25 09:13 Dose: 0.125 mg Documented By: GA Docusate Sodium (Docusate Sodium 100 Mg Capsule) 100 mg PO BID [facility] [place] Last Admin: 08/04/25 20:45 Dose: 100 mg Documented By: MAXIM Enoxaparin Sodium (Enoxaparin Sodium 60 Mg/0.6 Ml Syringe) 60 mg SUBCUT Q12H [facility] On Hold: 08/04/25 15:19 Last Admin: 08/04/25 09:13 Dose: 60 mg Documented By: GA Glucose (Glucose Gel 15 Gm Gel..Gram.) 15 gm PO Q15M PRN; Protocol PRN Reason: per Hypoglycemia Standing Ord. Levofloxacin (Levaquin) 750 mg in 150 mls @ 100 mls/hr IV Q24H [facility] [place] Last Infusion: 08/04/25 09:12 Dose: Infused Documented By: GA Magnesium Hydroxide (Milk Of Magnesia 30 Ml Oral.Susp) 30 ml PO DAILY PRN PRN Reason: Constipation Last Admin: 08/03/25 07:47 Dose: 30 ml Documented By: ERICH Melatonin (Melatonin 3 Mg Tablet) 6 mg PO BEDTIME PRN PRN Reason: Insomnia Metoprolol Succinate (Metoprolol Succinate Er 50 Mg Tab.Er.24h) 50 mg PO BID [facility] [place]; Protocol Last Admin: 08/04/25 20:46 Dose: 50 mg Documented By: MAXIM Metronidazole (Metronidazole 500 Mg Tablet) 500 mg PO BID [facility] [place] Last Admin: 08/04/25 20:45 Dose: 500 mg Documented By: MAXIM Morphine Sulfate (Morphine Sulfate 4 Mg/Ml Cartridge) 2 mg IVPUSH Q4H PRN; Protocol PRN Reason: Pain, Severe (Pain Scale 7-10) Last Admin: 08/05/25 02:19 Dose: 2 mg Documented By: MAXIM Omeprazole (Omeprazole 20 Mg Capsule.Dr) 20 mg PO DAILY@0630 [facility] [place] Last Admin: 08/05/25 05:38 Dose: 20 mg Documented By: MAXIM Ondansetron HCl (Ondansetron Hcl 4 Mg/2 Ml Vial) 4 mg IVPUSH Q8H PRN PRN Reason: Nausea and Vomiting Last Admin: 08/04/25 19:58 Dose: 4 mg Documented By: MAXIM Pantoprazole Sodium (Pantoprazole Sodium 40 Mg/10 Ml Vial) 40 mg IVPUSH BID@0630,1630 [facility] [place] Last Admin: 08/05/25 05:38 Dose: 40 mg Documented By: MAXIM Polyethylene Glycol (Polyethylene Glycol 3350 17 Gm Powd.Pack) 17 gm PO DAILY [facility] Last Admin: 08/04/25 09:13 Dose: 17 gm Documented By: BURXiao Sodium Chloride (0.9 % Sodium Chloride Flush 3 Ml Syringe) 3 ml IVFLUSH QSHIFT [facility] Last Admin: 08/04/25 19:55 Dose: 3 ml Documented By: MAXIM <Kerry Machuca - Last Filed: 08/05/25 06:46> Labs CBC & Chem 7: 08/05/25 06:07 08/05/25 06:07 <Kerry Machuca - Last Filed: 08/05/25 06:46> Labs: Laboratory Results - last 24 hr 08/04/25 08/04/25 08/04/25 07:34 11:44 15:06 MCV 91.0 MCH 30.5 MCHC 33.5 RDW 14.2 Plt Count 244 MPV 11.0 Absolute Nucleated RBC 0.000 Nucleated RBC % (auto) 0.0 POC Glucose 133 H 120 H Blood Type O Positive Antibody Screen NEGATIVE 08/04/25 08/04/25 08/04/25 16:10 19:51 19:57 MCV 90.8 MCH 30.6 MCHC 33.7 RDW 14.1 Plt Count 248 MPV 11.0 Absolute Nucleated RBC 0.000 Nucleated RBC % (auto) 0.0 POC Glucose 112 117 H Blood Type Antibody Screen 08/05/25 06:07 MCV 90.6 MCH 30.4 MCHC 33.6 RDW 14.2 Plt Count 268 MPV 10.8 Absolute Nucleated RBC 0.000 Nucleated RBC % (auto) 0.0 POC Glucose Blood Type Antibody Screen <Kerry Machuca - Last Filed: 08/05/25 06:46> Procedures Date of Service Date of Service: 08/05/25 <Kerry Machuca - Last Filed: 08/05/25 06:46> 08/05/25 <Roosevelt Beebe MD - Last Filed: 08/05/25 08:15> 08/05/25 <Char Durand PA-C - Last Filed: 08/05/25 08:44> Progress Note: A&P Assessment and plan (1) Diverticulitis: Status: Acute <Kerry Machuca - Last Filed: 08/05/25 06:46> Assessment and Plan: Says she had crampy pain earlier and asked for pain meds Abdomen is currently soft, benign and nontender Looks well overall Has small BMs only Would continue with bowel regimen Continue IV antibiotics No surgical intervention at this time - discussed with the patient and daughter Images reviewed with IR - no drainage for now Seen and examined independently <Roosevelt Beebe MD - Last Filed: 08/05/25 08:15> Says she had crampy pain earlier and asked for pain meds Abdomen is currently soft, benign and nontender Looks well overall Has small BMs only Would continue with bowel regimen Continue IV antibiotics No surgical intervention at this time - discussed with the patient and daughter Images reviewed with IR - no drainage for now Seen and examined independently <Char Durand PA-C - Last Filed: 08/05/25 08:44> Assessment and Plan: Patient continues to have cramping abdominal pain that responds well to pain medications. Abdominal exam continues to be benign. No abdominal tenderness or guarding. She is hemodynamically stable. She has been tolerating warm fluids but reports increased cramping with anything else. Will advance to regular diet once pain is under control. Will contine bowl regimen and IV ab. Encourage continued OOB ambulation and incentive spirometry. <Kerry Machuca - Last Filed: 08/05/25 06:46> Patient continues to have cramping abdominal pain that responds well to pain medications. Abdominal exam continues to be benign. No abdominal tenderness or guarding. She is hemodynamically stable. She has been tolerating warm fluids but reports increased cramping with anything else. Will advance to regular diet once pain is under control. Will contine bowl regimen and IV abx. Encourage continued OOB ambulation and incentive spirometry. Agree with above assessment and plan by Sven MS-3. She continues to have crampy abdominal pain throughout the day. Has not really had any significant bowel movement despite colace, miralax and one dose of mag citrate. Will attempt another dose of mag citrate today. Cont IV abx for now in attempts to avoid any surgical intervention in this patient with advanced age and comorbidities. her abdomen remains very benign. <Char Durand PA-C - Last Filed: 08/05/25 08:44> Time Spent With Patient Time: Total time managing care of this patient today ____ minutes. <Kerry Machuca - Last Filed: 08/05/25 06:46> Quality Stroke Does the patient have a stroke diagnosis?: No <Kerry Machuca - Last Filed: 08/05/25 06:46> VTE Prior VTE?: No <Kerry Machuca - Last Filed: 08/05/25 06:46> VTE Risk Level:: Medical - moderate - high <Kerry Machuca - Last Filed: 08/05/25 06:46> VTE Device Contraindication: Treatment Not Indicated <Kerry Machuca - Last Filed: 08/05/25 06:46> VTE Drug Contraindication: N/A - Med Ordered <Kerry Machuca - Last Filed: 08/05/25 06:46>
[2025-08-05 06:35] LABS: Anion Gap 8 (12-20); Blood Urea Nitrogen 13 mg/dL (9-16); Calcium 7.6 mg/dL (8.4-10.2); Carbon Dioxide 29 mmol/L (22-29); Chloride 97 mmol/L (96-108); Creatinine Clr Calc Pharmacy 80.2; Estimated Glomerular Filt Rate > 60; Potassium 3.3 mmol/L (3.3-5.1); Sodium 131 mmol/L (135-145)
[2025-08-05 07:30] LABS: Glucose, Whole Blood 123 mg/dL (60-115)
[2025-08-05 07:46] VITALS: BP 101/61; PULSE 87; RESP 16; TEMP 36.1; O2SAT 95
--- NOTE | 2025-08-05 07:51 | P.CNGI_ITS ---
History of Present Illness Data of Consult Service Date: 08/05/25 Primary Care Provider: Krista Allen MD [facility] Reason for consult: /GIB? 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 The pain started almost a week ago but was stable and generalized but mainly in the lower abdomen. patient believed her symptoms were related to constipation due to chronic opioid use for malignancy-related pain. She reports her last bowel movement was earlier today and continues to pass flatus and burp. She denies nausea, vomiting, dysuria, hematuria, urinary frequency, fever, or chills. Past surgical history includes hysterectomy. In the emergency department, her abdominal pain improved and She remained hemodynamically stable with no chest pain or shortness of breath. CT abdomen and pelvis demonstrated findings concerning for diverticulitis versus colitis with a 2.5 cm collection suspicious for abscess formation. The case was discussed with Dr. Garcia, who recommended admission to the medical service for IV antibiotic therapy and further management. CT scan of abdomen showing: Diverticulitis or colitis of the sigmoid colon. 2.5 cm collection adjacent to the anterior sigmoid colon and posterior dome of the bladder suggestive of abscess or impending colovesicular fistula. There is adjacent wall thickening of the dome of the bladder and tiny amount of air in the bladder. There may also be involvement of the left adnexa. No free air. Fatty liver. Bilateral renal cysts. and Severe demineralization. Partially visualized but similar-appearing lytic lesion in the T9 vertebral body and left iliac crest. Increased moderate to severe T12 vertebral body compression fracture that may be recent. Mild L1-L3 vertebral body compression fractures not appreciably changed. Hospitalist team asked to admit her for monitoring and further work up. [facility] Past Medical History Medical History CHF (congestive heart failure) Paroxysmal atrial fibrillation Atrial fibrillation with RVR Hyponatremia DM type 2 (diabetes mellitus, type 2) Spinal stenosis 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 Lesion of bone of lumbosacral spine Multiple myeloma Lower back pain Impacted cerumen of both ears Dysplastic nevus Vitamin D deficiency Annual physical exam Palpitations Leukoplakia of tongue Hyperlipidemia Peripheral neuropathy Dysuria Family History Family History Father No problems noted. Mother No problems noted. Son Diabetes Surgical History Surgical History H/O arthroscopy of knee H/O varicose vein ligation H/O: hysterectomy H/O mastectomy H/O colonoscopy Social History Social History Household Members: None Household Members Other:: d/c from [facility] 05/06 staying w/ daughter Barbara at this time. Housing: House Do you presently have visiting nurse or other home services: Yes ([facility]NA) Alcohol intake: former Patient Tobacco Use Status: Never used Tobacco e-Cigarette/Vaping Use: Never Used Second Hand Smoke Exposure: No Advance Directives Date on File: 12/10/24 service: No Current occupational status: retired Gender identity: Female Cognitive needs: No Hearing needs: No Vision needs: Yes Meds Allergies Allergy/AdvReac Type Severity Reaction Status Date / Time hydralazine Allergy Unknown Verified 07/28/25 12:00 hydrochlorothiazide AdvReac Intermediate Palpitation Verified 07/28/25 12:00 s amlodipine AdvReac DIZZINESS Verified 07/28/25 12:00 sotalol AdvReac Palpitation Verified 07/28/25 12:00 s Active Medications: Current Medications Acetaminophen (Acetaminophen 325 Mg Tablet) 650 mg PO Q6H PRN PRN Reason: Pain, Mild 1-3,fever,headache Atorvastatin Calcium (Atorvastatin Calcium 10 Mg Tablet) 10 mg PO BEDTIME [facility] Last Admin: 08/04/25 20:45 Dose: 10 mg Calcium Carbonate (Calcium Carbonate 750 Mg Tab.Chew) 750 mg PO Q4H PRN PRN Reason: Heartburn Dextrose (Dextrose 50 % 25 Gm/50 Ml Syringe) 25 gm IVPUSH Q15M PRN; Protocol PRN Reason: per Hypoglycemia Standing Ord. Digoxin (Digoxin 0.125 Mg Tablet) 0.125 mg PO DAILY [facility]; Protocol Last Admin: 08/04/25 09:13 Dose: 0.125 mg Docusate Sodium (Docusate Sodium 100 Mg Capsule) 100 mg PO BID [facility] Last Admin: 08/04/25 20:45 Dose: 100 mg Enoxaparin Sodium (Enoxaparin Sodium 60 Mg/0.6 Ml Syringe) 60 mg SUBCUT Q12H [facility] On Hold: 08/04/25 15:19 Last Admin: 08/04/25 09:13 Dose: 60 mg Glucose (Glucose Gel 15 Gm Gel..Gram.) 15 gm PO Q15M PRN; Protocol PRN Reason: per Hypoglycemia Standing Ord. Levofloxacin (Levaquin) 750 mg in 150 mls @ 100 mls/hr IV Q24H [facility] Last Admin: 08/05/25 06:27 Dose: 100 mls/hr Magnesium Hydroxide (Milk Of Magnesia 30 Ml Oral.Susp) 30 ml PO DAILY PRN PRN Reason: Constipation Last Admin: 08/03/25 07:47 Dose: 30 ml Melatonin (Melatonin 3 Mg Tablet) 6 mg PO BEDTIME PRN PRN Reason: Insomnia Metoprolol Succinate (Metoprolol Succinate Er 50 Mg Tab.Er.24h) 50 mg PO BID [facility]; Protocol Last Admin: 08/04/25 20:46 Dose: 50 mg Metronidazole (Metronidazole 500 Mg Tablet) 500 mg PO BID [facility] Last Admin: 08/04/25 20:45 Dose: 500 mg Morphine Sulfate (Morphine Sulfate 4 Mg/Ml Cartridge) 2 mg IVPUSH Q4H PRN; Protocol PRN Reason: Pain, Severe (Pain Scale 7-10) Last Admin: 08/05/25 02:19 Dose: 2 mg Omeprazole (Omeprazole 20 Mg Capsule.Dr) 20 mg PO DAILY@0630 [facility] Last Admin: 08/05/25 05:38 Dose: 20 mg Ondansetron HCl (Ondansetron Hcl 4 Mg/2 Ml Vial) 4 mg IVPUSH Q8H PRN PRN Reason: Nausea and Vomiting Last Admin: 08/04/25 19:58 Dose: 4 mg Pantoprazole Sodium (Pantoprazole Sodium 40 Mg/10 Ml Vial) 40 mg IVPUSH BID@0630,1630 [facility] Last Admin: 08/05/25 05:38 Dose: 40 mg Polyethylene Glycol (Polyethylene Glycol 3350 17 Gm Powd.Pack) 17 gm PO DAILY [facility] Last Admin: 08/04/25 09:13 Dose: 17 gm Sodium Chloride (0.9 % Sodium Chloride Flush 3 Ml Syringe) 3 ml IVFLUSH QSHIFT [facility] Last Admin: 08/04/25 19:55 Dose: 3 ml Home Medications ?Medication ?Instructions ?Recorded ?Confirmed ?Last Taken ?Type omeprazole 20 mg capsule,delayed 20 mg PO DAILY@0630 0 03/19/25 07/28/25 07/28/25 History release Lactobacillus rhamnosus GG 10 1 cap PO BID 05/22/2507/27/25 History billion cell capsule (Culturelle) atorvastatin 10 mg tablet (Lipitor) 10 mg PO BEDTIME 0 05/22/25 07/28/25 07/27/25 History furosemide 20 mg tablet (Lasix) 40 mg PO DAILY PRN Flu id Retention 07/28/25 07/28/25 Unknown History metoprolol succinate 50 mg 50 mg PO BID 07/28/2507/2807/28/25 History tablet,extended release 24 hr Physical Exam 2 Vital Signs: Vital Signs: Last Vital Signs Temp 96.9 F 08/05/25 07:46 Pulse 87 08/05/25 07:46 Resp 16 08/05/25 07:46 BP 101/61 08/05/25 07:46 Pulse Ox 95 08/05/25 07:46 O2 Del Method Room Air 08/05/25 07:46 BMI result Body Mass Index 22.7 Results Labs 08/05/25 06:07 08/05/25 06:07 Labs: Short CBC 08/04/25 08/04/25 08/05/25 Range/Units 15:06 19:51 06:07 WBC 7.6 7.5 7.3 (4.8-10.8) X10*3/uL Hgb 12.2 12.3 12.3 (12.0-16.0) g/dl Hct 36.4 L 36.5 L 36.6 L (37.0-47.0) % Plt Count 244 248 268 (160-400) X10*3/uL BMP 08/05/25 06:07 Sodium 131 L Potassium 3.3 D Chloride 97 Carbon Dioxide 29 BUN 13 Creatinine 0.48 L Calcium 7.6 L D Microbiology Microbiology Results: Microbiology 07/28/25 18:31 Blood - Venous Blood Culture - Final No growth after 5 days. 07/28/25 18:31 Blood - Venous Blood Culture - Final No growth after 5 days. 07/28/25 Unknown Urine clean catch - Clean Catch Midstream Urine Culture - Final Enterobacter cloacae complex Procedures Date of Service Date of Service: 08/05/25
[2025-08-05] MEDS: Metoprolol Succinate ER 50 MG TAB.ER.24H PO (08:06)
[2025-08-05] MEDS: 0.9 % Sodium Chloride Flush 3 ML SYRINGE IVFLUSH ×3 (08:06→19:36)
--- NOTE | 2025-08-05 10:43 | P.PNIM_ITS ---
Subjective Subjective Date of Service: 08/05/25 Interval History: still feeling unwell, no appetite Physical Exam 2 Vital Signs: Vital Signs: Last Vital Signs Temp 96.9 F 08/05/25 07:46 Pulse 87 08/05/25 07:46 Resp 16 08/05/25 07:46 BP 101/61 08/05/25 07:46 Pulse Ox 95 08/05/25 07:46 O2 Del Method Room Air 08/05/25 07:46 BMI result Body Mass Index 22.7 Const: General: cooperative, no acute distress and alert O rientation/consciousness: patient oriented x3 GI: Inspection: Yes normal to inspection Palpation (GI): Soft to palpation, nontender, no guarding and not rigid Percussion: Yes normal to percussion Neuro: General: patient oriented x3 Objective Data Active Medications Acetaminophen (Acetaminophen 325 Mg Tablet) 650 mg PO Q6H PRN PRN Reason: Pain, Mild 1-3,fever,headache Atorvastatin Calcium (Atorvastatin Calcium 10 Mg Tablet) 10 mg PO BEDTIME [facility] Last Admin: 08/04/25 20:45 Dose: 10 mg Documented By: MAXIM Calcium Carbonate (Calcium Carbonate 750 Mg Tab.Chew) 750 mg PO Q4H PRN PRN Reason: Heartburn Dextrose (Dextrose 50 % 25 Gm/50 Ml Syringe) 25 gm IVPUSH Q15M PRN; Protocol PRN Reason: per Hypoglycemia Standing Ord. Digoxin (Digoxin 0.125 Mg Tablet) 0.125 mg PO DAILY [facility]; Protocol Last Admin: 08/05/25 08:03 Dose: 0.125 mg Documented By: JERARDO Docusate Sodium (Docusate Sodium 100 Mg Capsule) 100 mg PO BID [facility] Last Admin: 08/05/25 08:04 Dose: 100 mg Documented By: JERARDO Enoxaparin Sodium (Enoxaparin Sodium 60 Mg/0.6 Ml Syringe) 60 mg SUBCUT Q12H [facility] On Hold: 08/04/25 15:19 Last Admin: 08/04/25 09:13 Dose: 60 mg Documented By: COLBURK Glucose (Glucose Gel 15 Gm Gel..Gram.) 15 gm PO Q15M PRN; Protocol PRN Reason: per Hypoglycemia Standing Ord. Levofloxacin (Levofloxacin 750 Mg Tablet) 750 mg PO Q24H [facility] Magnesium Hydroxide (Milk Of Magnesia 30 Ml Oral.Susp) 30 ml PO DAILY PRN PRN Reason: Constipation Last Admin: 08/03/25 07:47 Dose: 30 ml Documented By: ERICH Melatonin (Melatonin 3 Mg Tablet) 6 mg PO BEDTIME PRN PRN Reason: Insomnia Metoprolol Succinate (Metoprolol Succinate Er 50 Mg Tab.Er.24h) 50 mg PO BID [facility]; Protocol Last Admin: 08/05/25 08:06 Dose: 50 mg Documented By: JERARDO Metronidazole (Metronidazole 500 Mg Tablet) 500 mg PO BID [facility] Last Admin: 08/05/25 08:06 Dose: 500 mg Documented By: JERARDO Morphine Sulfate (Morphine Sulfate 4 Mg/Ml Cartridge) 2 mg IVPUSH Q4H PRN; Protocol PRN Reason: Pain, Severe (Pain Scale 7-10) Last Admin: 08/05/25 08:06 Dose: 2 mg Documented By: JERARDO Omeprazole (Omeprazole 20 Mg Capsule.Dr) 20 mg PO DAILY@0630 [facility] Last Admin: 08/05/25 05:38 Dose: 20 mg Documented By: MAXIM Ondansetron HCl (Ondansetron Hcl 4 Mg/2 Ml Vial) 4 mg IVPUSH Q8H PRN PRN Reason: Nausea and Vomiting Last Admin: 08/04/25 19:58 Dose: 4 mg Documented By: MAXIM Pantoprazole Sodium (Pantoprazole Sodium 40 Mg/10 Ml Vial) 40 mg IVPUSH BID@0630,1630 [facility] Last Admin: 08/05/25 05:38 Dose: 40 mg Documented By: MAXIM Polyethylene Glycol (Polyethylene Glycol 3350 17 Gm Powd.Pack) 17 gm PO DAILY [facility] Last Admin: 08/05/25 08:06 Dose: 17 gm Documented By: JERARDO Sodium Chloride (0.9 % Sodium Chloride Flush 3 Ml Syringe) 3 ml IVFLUSH QSHIFT [facility] Last Admin: 08/05/25 08:06 Dose: 3 ml Documented By: JERARDO Labs 08/05/25 06:07 08/05/25 06:07 Labs: Laboratory Results - last 24 hr 08/04/25 08/04/25 08/04/25 11:44 15:06 16:10 MCV 91.0 MCH 30.5 MCHC 33.5 RDW 14.2 Plt Count 244 MPV 11.0 Absolute Nucleated RBC 0.000 Nucleated RBC % (auto) 0.0 Anion Gap Estim Creat Clear Calc Estimated GFR POC Glucose 120 H 112 Random Glucose Calcium Blood Type O Positive Antibody Screen NEGATIVE 08/04/25 08/04/25 08/05/25 19:51 19:57 06:07 MCV 90.8 90.6 MCH 30.6 30.4 MCHC 33.7 33.6 RDW 14.1 14.2 Plt Count 248 268 MPV 11.0 10.8 Absolute Nucleated RBC 0.000 0.000 Nucleated RBC % (auto) 0.0 0.0 Anion Gap 8 L Estim Creat Clear Calc 80.2 Estimated GFR > 60 POC Glucose 117 H Random Glucose 114 Calcium 7.6 L D Blood Type Antibody Screen 08/05/25 07:26 MCV MCH MCHC RDW Plt Count MPV Absolute Nucleated RBC Nucleated RBC % (auto) Anion Gap Estim Creat Clear Calc Estimated GFR POC Glucose 123 H Random Glucose Calcium Blood Type Antibody Screen Assessment and Plan (1) Paroxysmal atrial fibrillation: Status: Acute Plan 84F PMH pafib on eliquis, multiple myeloma with bone mets, DM, hld, presented with abdominal pain, found to have acute diverticulitis with abscess acute diverticulitis with abscess still no appetite, continue clears, continue Levaquin and Flagyl general surgery following paroxysmal AFib continue digoxin and metoprolol holding anticoagulation for possible intervention chronic diastolic CHF euvolemic multiple myeloma with bone Mets oxycodone for pain, outpatient follow up with Dr. Watts hypertension lisinopril hyperlipidemia statin DVT prophylaxis -mechanical due to possible intervention/ blood in stool full code reason for continued hospitalization: not tolerating p.o., IV antibiotics Quality Stroke Does the patient have a stroke diagnosis?: No VTE Prior VTE?: No VTE Risk Level:: Medical - moderate - high VTE Device Contraindication: Treatment Not Indicated VTE Drug Contraindication: N/A - Med Ordered
[2025-08-05 11:14] LABS: Glucose, Whole Blood 128 mg/dL (60-115)
--- NOTE | 2025-08-05 13:08 | MHC.CLN ---
F/U CONTINUES WITH CLEAR LIQUID DIET. ENSURE CLEAR TID TO PROMOTE NUTRITIONAL INTAKE. SUPPLEMENT PROVIDES 720 KCALS, 24 G PROTEIN. DX METASTATIC CANCER. FOLLOW FOR DIET ADVANCEMENT AND PO INTAKE.
--- NOTE | 2025-08-05 15:06 | PM.EVENT ---
Event Note Date of Service: 08/05/25 Event Note: Seen on afternoon rounds Says she has some cramping on the lower abdomen Abdomen is soft and benign No fever Vital signs stable otherwise May need a follow up CAT scan and some point We will continue to follow Time Spent With Patient Time: Total time managing care of this patient today ____ minutes.
--- NOTE | 2025-08-05 15:26 | MHC.CM.PN ---
Patient is not medically cleared for discharge. She continues with cramping abdominal pain. DP return to dtrs home. Resume [facility]. Her daughter will provide transportation home at discharge.
[2025-08-05 15:27] VITALS: BP 130/91; PULSE 99; RESP 16; TEMP 36; O2SAT 97
[2025-08-05 15:34] VITALS: RESP 20
[2025-08-05 16:23] LABS: Glucose, Whole Blood 119 mg/dL (60-115)
[2025-08-05 20:00] VITALS: BP 127/73; PULSE 86; RESP 17; TEMP 36.2; O2SAT 95
[2025-08-05 20:51] LABS: Glucose, Whole Blood 116 mg/dL (60-115)
[2025-08-05] MEDS: metroNIDAZOLE/NS 500 MG/100 ML PIGGYBACK 100 MG IV (21:00)
--- NOTE | 2025-08-05 23:19 | MHC.PIE ---
late entry; 1944 p; pt c/o nausea refusing po meds. note; prn zofran q8 given by previous shift at 1530 i; dr cisneros notified (PA not in till 8pm). new order by KATH coles at 2030 - iv metronidazole now, prn reglan. e; will cont to monitor
[2025-08-06 06:15] LABS: Hematocrit 39.7 % (37.0-47.0); Hemoglobin 12.8 g/dl (12.0-16.0); Mean Corpuscular HGB Conc 32.2 g/dl (31.0-35.0); Mean Corpuscular Hemoglobin 30.5 pg (27.0-33.0); Mean Corpuscular Volume 94.7 fL (80.0-98.0); NRBC Abs Auto 0.000 X10*3/uL (0.0-0.012); NRBC Pct Auto 0.0 /100WBC (0.0-0.2); Platelet Count 252 X10*3/uL (160-400); Red Blood Count 4.19 X10*6/uL (4.20-5.50); White Blood Count 7.5 X10*3/uL (4.8-10.8)
[2025-08-06 06:32] LABS: Anion Gap 12 (12-20); Blood Urea Nitrogen 11 mg/dL (9-16); Calcium 7.4 mg/dL (8.4-10.2); Carbon Dioxide 25 mmol/L (22-29); Chloride 101 mmol/L (96-108); Creatinine Clr Calc Pharmacy 89.5; Estimated Glomerular Filt Rate > 60; Potassium 2.8 mmol/L (3.3-5.1); Sodium 135 mmol/L (135-145)
[2025-08-06 07:31] LABS: Glucose, Whole Blood 103 mg/dL (60-115)
[2025-08-06 07:33] VITALS: BP 137/95; PULSE 99; RESP 20; TEMP 36.3; O2SAT 96
--- NOTE | 2025-08-06 07:55 | PM.PNGS ---
Subjective Subjective Date of Service: 08/07/25 Interval history: States she has been nauseous Has had no significant oral intake has a nausea Denies passing flatus Says she still has this crampy lower abdominal pain No fever Physical Exam Vital Signs: Vital Signs: Last Vital Signs Temp 97.3 F 08/06/25 07:33 Pulse 99 08/06/25 07:33 Resp 20 08/06/25 07:33 BP 137/95 H 08/06/25 07:33 Pulse Ox 96 08/06/25 07:33 O2 Del Method Room Air 08/06/25 07:33 BMI result Body Mass Index 22.7 Const: General: no acute distress Resp: Effort & Inspection: normal respiratory effort Cardio: Rate: regular rate GI: Palpation (GI): Soft to palpation, not firm, Tenderness to palpation present (GI) (Some tenderness on the lower abdomen) and no guarding Objective Data Active Medications Acetaminophen (Acetaminophen 325 Mg Tablet) 650 mg PO Q6H PRN PRN Reason: Pain, Mild 1-3,fever,headache Atorvastatin Calcium (Atorvastatin Calcium 10 Mg Tablet) 10 mg PO BEDTIME [facility] Last Admin: 08/05/25 19:46 Dose: Not Given Documented By: BRENDA Non-Admin Reason: Nausea Calcium Carbonate (Calcium Carbonate 750 Mg Tab.Chew) 750 mg PO Q4H PRN PRN Reason: Heartburn Dextrose (Dextrose 50 % 25 Gm/50 Ml Syringe) 25 gm IVPUSH Q15M PRN; Protocol PRN Reason: per Hypoglycemia Standing Ord. Digoxin (Digoxin 0.125 Mg Tablet) 0.125 mg PO DAILY [facility]; Protocol Last Admin: 08/05/25 08:03 Dose: 0.125 mg Documented By: JERARDO Docusate Sodium (Docusate Sodium 100 Mg Capsule) 100 mg PO BID [facility] Last Admin: 08/05/25 19:46 Dose: Not Given Documented By: BRENDA Non-Admin Reason: Nausea Enoxaparin Sodium (Enoxaparin Sodium 60 Mg/0.6 Ml Syringe) 60 mg SUBCUT Q12H [facility] On Hold: 08/04/25 15:19 Last Admin: 08/04/25 09:13 Dose: 60 mg Documented By: COLBURK Glucose (Glucose Gel 15 Gm Gel..Gram.) 15 gm PO Q15M PRN; Protocol PRN Reason: per Hypoglycemia Standing Ord. Levofloxacin (Levofloxacin 750 Mg Tablet) 750 mg PO Q24H [facility] Magnesium Hydroxide (Milk Of Magnesia 30 Ml Oral.Susp) 30 ml PO DAILY PRN PRN Reason: Constipation Last Admin: 08/03/25 07:47 Dose: 30 ml Documented By: ERICH Melatonin (Melatonin 3 Mg Tablet) 6 mg PO BEDTIME PRN PRN Reason: Insomnia Metoclopramide HCl (Metoclopramide Hcl 10 Mg/2 Ml Vial) 5 mg IVPUSH Q6H PRN PRN Reason: Nausea and Vomiting Last Admin: 08/05/25 20:56 Dose: 5 mg Documented By: BRENDA Metoprolol Succinate (Metoprolol Succinate Er 50 Mg Tab.Er.24h) 50 mg PO BID [facility]; Protocol Last Admin: 08/05/25 19:46 Dose: Not Given Documented By: BRENDA Non-Admin Reason: Nausea Metronidazole (Metronidazole 500 Mg Tablet) 500 mg PO BID [facility] Last Admin: 08/05/25 19:46 Dose: Not Given Documented By: BRENDA Non-Admin Reason: Nausea Morphine Sulfate (Morphine Sulfate 4 Mg/Ml Cartridge) 2 mg IVPUSH Q4H PRN; Protocol PRN Reason: Pain, Severe (Pain Scale 7-10) Last Admin: 08/06/25 05:56 Dose: 2 mg Documented By: BRENDA Omeprazole (Omeprazole 20 Mg Capsule.Dr) 20 mg PO DAILY@0630 [facility] Last Admin: 08/06/25 06:02 Dose: Not Given Documented By: BRENDA Non-Admin Reason: Patient Refused Ondansetron HCl (Ondansetron Hcl 4 Mg/2 Ml Vial) 4 mg IVPUSH Q8H PRN PRN Reason: Nausea and Vomiting Last Admin: 08/05/25 15:30 Dose: 4 mg Documented By: JERARDO Pantoprazole Sodium (Pantoprazole Sodium 40 Mg/10 Ml Vial) 40 mg IVPUSH BID@0630,1630 [facility] Last Admin: 08/06/25 05:55 Dose: 40 mg Documented By: BRENDA Polyethylene Glycol (Polyethylene Glycol 3350 17 Gm Powd.Pack) 17 gm PO DAILY [facility] Last Admin: 08/05/25 08:06 Dose: 17 gm Documented By: HO.MOHAMER Sodium Chloride (0.9 % Sodium Chloride Flush 3 Ml Syringe) 3 ml IVFLUSH QSHIFT [facility] Last Admin: 08/05/25 19:36 Dose: 3 ml Documented By: BRENDA Labs 08/07/25 05:46 08/07/25 05:46 Labs: Laboratory Results - last 24 hr 08/05/25 08/05/25 08/05/25 11:10 16:19 20:47 MCV MCH MCHC RDW Plt Count MPV Absolute Nucleated RBC Nucleated RBC % (auto) Anion Gap Estim Creat Clear Calc Estimated GFR POC Glucose 128 H 119 H 116 H Random Glucose Calcium 08/06/25 08/06/25 05:47 07:28 MCV 94.7 MCH 30.5 MCHC 32.2 RDW 14.5 Plt Count 252 MPV 10.9 Absolute Nucleated RBC 0.000 Nucleated RBC % (auto) 0.0 Anion Gap 12 Estim Creat Clear Calc 89.5 Estimated GFR > 60 POC Glucose 103 Random Glucose 106 Calcium 7.4 L Procedures Date of Service Date of Service: 08/07/25 Progress Note: A&P Assessment and plan (1) Diverticulitis: Status: Acute Assessment and Plan: Has had nausea Continues to have lower abdominal pain She does not feel that she is improving Repeat CAT scan ordered Otherwise no leukocytosis No fever Abdominal exam benign with some tenderness Denies dysuria We will follow closely Replace potassium Time Spent With Patient Time: Total time managing care of this patient today ____ minutes. Quality Stroke Does the patient have a stroke diagnosis?: No VTE Prior VTE?: No VTE Risk Level:: Medical - moderate - high VTE Device Contraindication: Treatment Not Indicated VTE Drug Contraindication: N/A - Med Ordered
[2025-08-06] MEDS: Lactated Ringers 1,000 ML 80 ML IVCONT (08:19)
[2025-08-06] MEDS: iohexoL 350 MG/ML 100 ML INFUS..BTL 85 ML IV (09:09)
[2025-08-06 09:27] VITALS: BMI 22.7
[2025-08-06] MEDS: 0.9 % Sodium Chloride Flush 3 ML SYRINGE IVFLUSH ×3 (09:31→20:40)
[2025-08-06] MEDS: Potassium Chloride/H20 10 MEQ/100 ML PIGGYBACK 100 MEQ IV ×4 (09:31→17:54)
--- NOTE | 2025-08-06 09:31 | MHC.CLN ---
CONSULT PT ON CLEAR LIQUID DIET PO INTAKE 50-100% CONSULT FOR PPN REVIEWED LABS DISCUSSED WITH PHARMACY RECOMMEND PPN AT 55ML/HR TO PROVIDE 673KCALS, 132G DEXTROSE, 56G PROTEIN REPLETE LYTES NEEDED MONITOR PO INTAKE SEE FULL ASSESSMENT
--- NOTE | 2025-08-06 09:35 | P.PNIM_ITS ---
Subjective Subjective Date of Service: 08/06/25 Interval History: Feeling terrible, unable to tolerate p.o. Physical Exam 2 Vital Signs: Vital Signs: Last Vital Signs Temp 97.3 F 08/06/25 07:33 Pulse 99 08/06/25 07:33 Resp 20 08/06/25 07:33 BP 137/95 H 08/06/25 07:33 Pulse Ox 96 08/06/25 07:33 O2 Del Method Room Air 08/06/25 07:33 BMI result Body Mass Index 22.7 Const: General: no acute distress Resp: Effort & Inspection: normal respiratory effort Cardio: Rate: regular rate GI: Palpation (GI): Soft to palpation, not firm, Tenderness to palpation present (GI) (Some tenderness on the lower abdomen) and no guarding Objective Data Active Medications Acetaminophen (Acetaminophen 325 Mg Tablet) 650 mg PO Q6H PRN PRN Reason: Pain, Mild 1-3,fever,headache Atorvastatin Calcium (Atorvastatin Calcium 10 Mg Tablet) 10 mg PO BEDTIME [facility] Last Admin: 08/05/25 19:46 Dose: Not Given Documented By: BRENDA Non-Admin Reason: Nausea Calcium Carbonate (Calcium Carbonate 750 Mg Tab.Chew) 750 mg PO Q4H PRN PRN Reason: Heartburn Dextrose (Dextrose 50 % 25 Gm/50 Ml Syringe) 25 gm IVPUSH Q15M PRN; Protocol PRN Reason: per Hypoglycemia Standing Ord. Digoxin (Digoxin 0.125 Mg Tablet) 0.125 mg PO DAILY [facility]; Protocol Last Admin: 08/05/25 08:03 Dose: 0.125 mg Documented By: JERARDO Docusate Sodium (Docusate Sodium 100 Mg Capsule) 100 mg PO BID [facility] Last Admin: 08/05/25 19:46 Dose: Not Given Documented By: BRENDA Non-Admin Reason: Nausea Enoxaparin Sodium (Enoxaparin Sodium 60 Mg/0.6 Ml Syringe) 60 mg SUBCUT Q12H CIELO On Hold: 08/04/25 15:19 Last Admin: 08/04/25 09:13 Dose: 60 mg Documented By: BURXiao Glucose (Glucose Gel 15 Gm Gel..Gram.) 15 gm PO Q15M PRN; Protocol PRN Reason: per Hypoglycemia Standing Ord. Lactated Ringer's (Lr) 1,000 mls @ 80 mls/hr IVCONT .[id number] [facility] Last Admin: 08/06/25 08:19 Dose: 80 mls/hr Documented By: WALTER Potassium Chloride (Potassium Chloride/H20) 10 meq in 100 mls @ 100 mls/hr IV Q1H [facility] Stop: 08/06/25 12:14 Last Admin: 08/06/25 09:31 Dose: 100 mls/hr Documented By: WALTER Levofloxacin (Levofloxacin 750 Mg Tablet) 750 mg PO Q24H [facility] Magnesium Hydroxide (Milk Of Magnesia 30 Ml Oral.Susp) 30 ml PO DAILY PRN PRN Reason: Constipation Last Admin: 08/03/25 07:47 Dose: 30 ml Documented By: ERICH Melatonin (Melatonin 3 Mg Tablet) 6 mg PO BEDTIME PRN PRN Reason: Insomnia Metoclopramide HCl (Metoclopramide Hcl 10 Mg/2 Ml Vial) 5 mg IVPUSH Q6H PRN PRN Reason: Nausea and Vomiting Last Admin: 08/05/25 20:56 Dose: 5 mg Documented By: BRENDA Metoprolol Succinate (Metoprolol Succinate Er 50 Mg Tab.Er.24h) 50 mg PO BID [facility]; Protocol Last Admin: 08/05/25 19:46 Dose: Not Given Documented By: BRENDA Non-Admin Reason: Nausea Metronidazole (Metronidazole 500 Mg Tablet) 500 mg PO BID [facility] Last Admin: 08/05/25 19:46 Dose: Not Given Documented By: BRENDA Non-Admin Reason: Nausea Morphine Sulfate (Morphine Sulfate 4 Mg/Ml Cartridge) 2 mg IVPUSH Q4H PRN; Protocol PRN Reason: Pain, Severe (Pain Scale 7-10) Last Admin: 08/06/25 05:56 Dose: 2 mg Documented By: BRENDA Omeprazole (Omeprazole 20 Mg Capsule.Dr) 20 mg PO DAILY@0630 [facility] Last Admin: 08/06/25 06:02 Dose: Not Given Documented By: BRENDA Non-Admin Reason: Patient Refused Ondansetron HCl (Ondansetron Hcl 4 Mg/2 Ml Vial) 4 mg IVPUSH Q8H PRN PRN Reason: Nausea and Vomiting Last Admin: 08/06/25 08:13 Dose: 4 mg Documented By: WALTER Pantoprazole Sodium (Pantoprazole Sodium 40 Mg/10 Ml Vial) 40 mg IVPUSH BID@0630,1630 [facility] Last Admin: 08/06/25 05:55 Dose: 40 mg Documented By: BRENDA Polyethylene Glycol (Polyethylene Glycol 3350 17 Gm Powd.Pack) 17 gm PO DAILY [facility] Last Admin: 08/05/25 08:06 Dose: 17 gm Documented By: JERARDO Sodium Chloride (0.9 % Sodium Chloride Flush 3 Ml Syringe) 3 ml IVFLUSH QSHIFT [facility] Last Admin: 08/06/25 09:31 Dose: 3 ml Documented By: WALTER Labs 08/06/25 05:47 08/06/25 05:47 Labs: Laboratory Results - last 24 hr 08/05/25 08/05/25 08/05/25 11:10 16:19 20:47 MCV MCH MCHC RDW Plt Count MPV Absolute Nucleated RBC Nucleated RBC % (auto) Anion Gap Estim Creat Clear Calc Estimated GFR POC Glucose 128 H 119 H 116 H Random Glucose Calcium 08/06/25 08/06/25 05:47 07:28 MCV 94.7 MCH 30.5 MCHC 32.2 RDW 14.5 Plt Count 252 MPV 10.9 Absolute Nucleated RBC 0.000 Nucleated RBC % (auto) 0.0 Anion Gap 12 Estim Creat Clear Calc 89.5 Estimated GFR > 60 POC Glucose 103 Random Glucose 106 Calcium 7.4 L Assessment and Plan (1) Paroxysmal atrial fibrillation: Status: Acute Plan 84F PMH pafib on eliquis, multiple myeloma with bone mets, DM, hld, presented with abdominal pain, found to have acute diverticulitis with abscess acute diverticulitis with abscess still no appetite, continue clears, continue Levaquin and Flagyl general surgery following - plan for repeat CT today Severe acute hypokalemia Replace and monitor paroxysmal AFib continue digoxin and metoprolol holding anticoagulation for possible intervention chronic diastolic CHF No signs of hypervolemia multiple myeloma with bone Mets oxycodone for pain, outpatient follow up with Dr. Watts hypertension lisinopril hyperlipidemia statin DVT prophylaxis -mechanical due to possible intervention/ blood in stool full code reason for continued hospitalization: not tolerating p.o., IV antibiotics Quality Stroke Does the patient have a stroke diagnosis?: No VTE Prior VTE?: No VTE Risk Level:: Medical - moderate - high VTE Device Contraindication: Treatment Not Indicated VTE Drug Contraindication: N/A - Med Ordered
[2025-08-06 10:32] LABS: Albumin Level 3.2 g/dL (3.5-5.0); Magnesium 2.3 mg/dL (1.6-2.6)
[2025-08-06 11:55] LABS: Glucose, Whole Blood 108 mg/dL (60-115)
--- NOTE | 2025-08-06 15:04 | PM.EVENT ---
Event Note Date of Service: 08/07/25 Event Note: Seen on afternoon rounds She is passing very small amounts of flatus if at all She says she is continues to have this periodic crampy abdominal pain I have reviewed her CAT scan - there is note of diffuse colonic distention tapering down to the distal sigmoid suggestive of obstruction from the inflammatory process She has not improved in a week now I explained to her therefore that it may be best to proceed with surgical intervention I explained to her the technique of hand assisted laparoscopic resection of the sigmoid, and colostomy , possible open We will have to drain the abscess as well I reviewed the risks including but not limited to bleeding, infections, injury to other organs including bladder and GI tract, staple line leak, LA, strokes as well as the other inherent risks of anesthesia She says that she agrees that she feels that she has not really made significant improvement She says that she will go ahead with the surgery She understands that she presents with perioperative risk that are higher than average in view of her age and atrial fibrillation I had a long discussion with her daughter Katherin with regards to the above and she agrees as well She is added onto the schedule for tomorrow She was kept NPO for now Discussed with the hospitalist service Abdominal exam otherwise benign Time Spent With Patient Time: Total time managing care of this patient today ____ minutes.
[2025-08-06 15:29] VITALS: BP 152/90; PULSE 96; RESP 16; TEMP 36.1; O2SAT 97
[2025-08-06 16:10] LABS: Glucose, Whole Blood 102 mg/dL (60-115)
[2025-08-06 19:56] VITALS: BP 142/88; PULSE 100; RESP 18; TEMP 36.2; O2SAT 95
[2025-08-06] MEDS: Parenteral Nutrition 1,320 ML 55 ML IV (20:38)
[2025-08-06 20:52] LABS: Glucose, Whole Blood 101 mg/dL (60-115)
--- NOTE | 2025-08-06 21:15 | PC.NURSE ---
tpn at 55ml/h to start. LR at 80 running at this time. KATH Arauz notified, hold LR while tpn running. will cont to monitor
[2025-08-07] VITALS (12 sets, daily range): BP systolic 122–164; BP diastolic 64–97; PULSE 89–129; RESP 11–18; TEMP 36.2–37.2; O2SAT 93–100
[2025-08-07 06:27] LABS: Hematocrit 35.6 % (37.0-47.0); Hemoglobin 11.8 g/dl (12.0-16.0); Mean Corpuscular HGB Conc 33.1 g/dl (31.0-35.0); Mean Corpuscular Hemoglobin 30.1 pg (27.0-33.0); Mean Corpuscular Volume 90.8 fL (80.0-98.0); NRBC Abs Auto 0.000 X10*3/uL (0.0-0.012); NRBC Pct Auto 0.0 /100WBC (0.0-0.2); Platelet Count 285 X10*3/uL (160-400); Red Blood Count 3.92 X10*6/uL (4.20-5.50); White Blood Count 6.8 X10*3/uL (4.8-10.8)
[2025-08-07 07:01] LABS: Alanine Aminotransferase 8 U/L (0-31); Albumin Level 3.2 g/dL (3.5-5.0); Alkaline Phosphatase 56 U/L (39-117); Anion Gap 9 (12-20); Aspartate Amino Transferase 23 U/L (5-31); Blood Urea Nitrogen 11 mg/dL (9-16); Calcium 7.5 mg/dL (8.4-10.2); Carbon Dioxide 29 mmol/L (22-29); Chloride 101 mmol/L (96-108); Creatinine Clr Calc Pharmacy 81.9; Estimated Glomerular Filt Rate > 60; Magnesium 2.5 mg/dL (1.6-2.6); Potassium 3.1 mmol/L (3.3-5.1); Sodium 136 mmol/L (135-145); Total Protein 5.4 g/dL (6.5-8.0)
[2025-08-07 07:21] LABS: Glucose, Whole Blood 139 mg/dL (60-115)
[2025-08-07] MEDS: 0.9 % Sodium Chloride Flush 3 ML SYRINGE IVFLUSH ×2 (08:09→16:08)
--- NOTE | 2025-08-07 08:45 | P.CONAN_ITS ---
Documented by User: Ebony Roman NP 08/07/25 09:36 HPI - Anesthesia Eval Consult details Narrative: 84 yr old female for Hand Assist Laparoscopic Sigmoid Resection,possible Ostomy Hypokalemia: 3.1 08/07, being replaced Cardiac Hx significant for CHF, Afib with RVR Follows [facility] [place] cardiology, multiple recent admission for afib/CHF, last cards visit 07/22/25 for HFU: -06/15/2025-Holter study showed baseline a fib with the average heart rate of 94 beats per minute, frequent pauses longest of 4.3 seconds. Patient was recently in the hospital for AFib with RVR and heart failure. Patient was discharged on digoxin, increased dose of Lasix and Jardiance. There has been confusion about how to take the medications and therefore patient was not taking it regularly as prescribed. -05/25/2025-echo study showed a normal LV systolic function with the ejection fraction between 60-65% with mild LVH, moderate biatrial enlargement, mild aortic and mitral regurgitation, upper limits of normal RV systolic pressure with mildly elevated right atrial pressures, and trivial pericardial effusion. Patient was also noted to be in heart failure in the setting of uncontrolled AFib. 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: on chronic narcotics Anesthesia Pre-Procedure Meds Is the patient on any of the following meds?: SGLT2 Inhib PMFSH Active Problems Active Problems: All Active Problems (Updated 08/04/25 @ 15:18 by Oskar Tadeo MD) GIB (gastrointestinal bleeding) (Acute) Colovesical fistula (Acute) Thrombocytopenia (Acute) Diverticulitis of intestine with abscess (Acute) CHF (congestive heart failure) (Acute) Persistent atrial fibrillation (Acute) Thyroid nodule greater than or equal to 1 cm in diameter incidentally noted on imaging study (Acute) Paroxysmal atrial fibrillation (Acute) Hospital discharge follow-up (Acute) DM type 2 (diabetes mellitus, type 2) (Acute) Multiple myeloma (Acute) Hyponatremia (Acute) Lesion of bone of thoracic spine (Acute) Diverticulitis (Acute) Back pain (Acute) Back pain (Acute) Lichen sclerosus (Acute) Balance disorder (Acute) Neuropathy (Acute) Elevated serum protein level (Acute) Tick bite of left lower leg (Acute) Impacted cerumen of left ear (Acute) Cellulitis (Acute) Tick bite of abdomen (Acute) Left leg pain (Acute) Incontinence (Acute) Unspecified open wound of oral cavity, sequela (Acute) Dysuria (Acute) Dysplastic nevus (Acute) Vitamin D deficiency (Acute) Annual physical exam (Acute) Leukoplakia of tongue (Acute) Hyperlipidemia (Acute) Past Medical History Medical History CHF (congestive heart failure) Paroxysmal atrial fibrillation Atrial fibrillation with RVR Hyponatremia DM type 2 (diabetes mellitus, type 2) Spinal stenosis 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 Lesion of bone of lumbosacral spine Multiple myeloma Lower back pain Impacted cerumen of both ears Dysplastic nevus Vitamin D deficiency Annual physical exam Palpitations Leukoplakia of tongue Hyperlipidemia Peripheral neuropathy Dysuria Family History Family History Father No problems noted. Mother No problems noted. Son Diabetes Surgical History Surgical History H/O arthroscopy of knee H/O varicose vein ligation H/O: hysterectomy H/O mastectomy H/O colonoscopy Social History Social History Household Members: None Household Members Other:: d/c from [facility] 05/06 staying w/ daughter Barbara at this time. Housing: House Are you a primary senior resident care director to a significant other at home: No Do you presently have visiting nurse or other home services: No Alcohol intake: former Patient Tobacco Use Status: Never used Tobacco e-Cigarette/Vaping Use: Never Used Second Hand Smoke Exposure: No Advance Directives Date on File: 12/10/24 service: No Current occupational status: retired Gender identity: Female Cognitive needs: No Hearing needs: No Vision needs: Yes Meds Allergies Allergy/AdvReac Type Severity Reaction Status Date / Time hydralazine Allergy Unknown Verified 07/28/25 12:00 hydrochlorothiazide AdvReac Intermediate Palpitation Verified 07/28/25 12:00 s amlodipine AdvReac DIZZINESS Verified 07/28/25 12:00 sotalol AdvReac Palpitation Verified 07/28/25 12:00 s Active Medications: Current Medications Atorvastatin Calcium (Atorvastatin Calcium 10 Mg Tablet) 10 mg PO BEDTIME CIELO Last Admin: 08/06/25 20:40 Dose: Not Given Calcium Carbonate (Calcium Carbonate 750 Mg Tab.Chew) 750 mg PO Q4H PRN PRN Reason: Heartburn Dextrose (Dextrose 50 % 25 Gm/50 Ml Syringe) 25 gm IVPUSH Q15M PRN; Protocol PRN Reason: per Hypoglycemia Standing Ord. Digoxin (Digoxin 0.125 Mg Tablet) 0.125 mg PO DAILY CIELO; Protocol Last Admin: 08/06/25 13:10 Dose: Not Given Docusate Sodium (Docusate Sodium 100 Mg Capsule) 100 mg PO BID CIELO Last Admin: 08/06/25 20:40 Dose: Not Given Enoxaparin Sodium (Enoxaparin Sodium 60 Mg/0.6 Ml Syringe) 60 mg SUBCUT Q12H CIELO On Hold: 08/04/25 15:19 Last Admin: 08/04/25 09:13 Dose: 60 mg Glucose (Glucose Gel 15 Gm Gel..Gram.) 15 gm PO Q15M PRN; Protocol PRN Reason: per Hypoglycemia Standing Ord. Lactated Ringer's (Lr) 1,000 mls @ 80 mls/hr IVCONT .[id number] [facility] Last Admin: 08/07/25 08:26 Dose: Not Given Piperacillin Sod/Tazobactam (Sod 3.375 gm/ Sodium Chloride) 50 mls @ 100 mls/hr IV Q6H [facility] Last Infusion: 08/07/25 06:01 Dose: Infused Nutrition (Parenteral) (Parenteral Nutrition) 1,320 mls @ 55 mls/hr IV .Q24H CIELO; Protocol Stop: 08/07/25 20:59 Last Admin: 08/06/25 20:38 Dose: 55 mls/hr Acetaminophen (Ofirmev) 1,000 mg in 100 mls @ 400 mls/hr IV Q6H [facility] Last Infusion: 08/07/25 06:30 Dose: Infused Magnesium Hydroxide (Milk Of Magnesia 30 Ml Oral.Susp) 30 ml PO DAILY PRN PRN Reason: Constipation Last Admin: 08/03/25 07:47 Dose: 30 ml Melatonin (Melatonin 3 Mg Tablet) 6 mg PO BEDTIME PRN PRN Reason: Insomnia Metoclopramide HCl (Metoclopramide Hcl 10 Mg/2 Ml Vial) 5 mg IVPUSH Q6H PRN PRN Reason: Nausea and Vomiting Last Admin: 08/06/25 11:24 Dose: 5 mg Metoprolol Succinate (Metoprolol Succinate Er 50 Mg Tab.Er.24h) 50 mg PO BID [facility]; Protocol Last Admin: 08/06/25 20:40 Dose: Not Given Morphine Sulfate (Morphine Sulfate 4 Mg/Ml Cartridge) 2 mg IVPUSH Q4H PRN; Protocol PRN Reason: Pain, Severe (Pain Scale 7-10) Last Admin: 08/07/25 05:28 Dose: 2 mg Omeprazole (Omeprazole 20 Mg Capsule.Dr) 20 mg PO DAILY@0630 [facility] Last Admin: 08/07/25 05:25 Dose: Not Given Ondansetron HCl (Ondansetron Hcl 4 Mg/2 Ml Vial) 4 mg IVPUSH Q8H PRN PRN Reason: Nausea and Vomiting Last Admin: 08/06/25 08:13 Dose: 4 mg Pantoprazole Sodium (Pantoprazole Sodium 40 Mg/10 Ml Vial) 40 mg IVPUSH BID@0630,1630 [facility] Last Admin: 08/07/25 05:24 Dose: 40 mg Pharmacy Consult (Consult Rx Parenteral Nutrition Ordering) 1 each MISCELLANE DAILY PRN PRN Reason: Consult order Polyethylene Glycol (Polyethylene Glycol 3350 17 Gm Powd.Pack) 17 gm PO DAILY [facility] Last Admin: 08/07/25 08:09 Dose: Not Given Sodium Chloride (0.9 % Sodium Chloride Flush 3 Ml Syringe) [facility] Last Admin: 08/07/25 08:09 Dose: 3 ml Home Medications ?Medication ?Instructions ?Recorded ?Confirmed ?Last Taken ?Type omeprazole 20 mg capsule,delayed 20 mg PO DAILY@0630 0 03/19/25 07/28/25 07/28/25 History release Lactobacillus rhamnosus GG 10 1 cap PO BID 05/22/2507/27/25 History billion cell capsule (Culturelle) atorvastatin 10 mg tablet (Lipitor) 10 mg PO BEDTIME 0 05/22/25 07/28/25 07/27/25 History furosemide 20 mg tablet (Lasix) 40 mg PO DAILY PRN Flu id Retention 07/28/25 07/28/25 Unknown History metoprolol succinate 50 mg 50 mg PO BID 07/28/2507/2807/28/25 History tablet,extended release 24 hr Exam Height,Weight and Vital Signs: Height 5 ft 6 in Weight 63.8 kg Last Vital Signs Temp 97.4 F 08/07/25 07:39 Pulse 129 H 08/07/25 07:39 Resp 16 08/07/25 07:39 BP 147/97 H 08/07/25 07:39 Pulse Ox 96 08/07/25 07:39 O2 Del Method Room Air 08/07/25 07:39 Pertinent Lab Results Pertinent Lab Results: Laboratory Tests 07/28/25 07/28/25 07/28/25 12:11 18:15 18:31 WBC 7.2 RBC 4.04 L Hgb 12.6 Hct 37.5 MCV 92.8 MCH 31.2 MCHC 33.6 RDW 13.9 Plt Count 89 L D MPV 12.1 Immature Gran % (Auto) 0.6 H Neut % (Auto) 74.6 H Lymph % (Auto) 10.8 L [place] % (Auto) 13.5 H Eos % (Auto) 0.4 Baso % (Auto) 0.1 Lymph # (Auto) 0.8 L [place] # (Auto) 1.0 Eos # (Auto) 0.0 Baso # (Auto) 0.0 Abs Immat Gran (auto) 0.04 H Absolute Neuts (auto) 5.4 Absolute Nucleated RBC 0.030 H Nucleated RBC % (auto) 0.4 H Smear Tech's Comments VERIFIED PT 23.3 H INR 1.9 H Sodium 130 L Potassium 4.0 Chloride 97 Carbon Dioxide 27 Anion Gap 10 L BUN 12 Creatinine 0.61 Estim Creat Clear Calc 63.1 Estimated GFR > 60 POC Glucose Random Glucose 107 Lactic Acid 1.6 Calcium 8.8 Phosphorus Magnesium Total Bilirubin Direct Bilirubin AST ALT Alkaline Phosphatase Troponin I High Sens 9.8 D Total Protein Albumin Urine Color Yellow Urine Appearance Clear Urine pH 6.5 Ur Specific [place] >= 1.030 H Urine Protein Negative Urine Glucose (UA) 500 H Urine Ketones 15 Urine Blood Negative Urine Nitrite Positive H Ur Leukocyte Esterase Negative Urine RBC 0-2 Urine WBC 6-10 H Ur Squamous Epith Cells 0-2 Urine Bacteria 4+ Hyaline Casts 0-2 Blood Type Antibody Screen 07/29/25 07/29/25 07/29/25 00:13 05:34 08:06 WBC 6.0 RBC 4.01 L Hgb 12.2 Hct 36.7 L MCV 91.5 MCH 30.4 MCHC 33.2 RDW 13.8 Plt Count 79 L MPV 11.9 Immature Gran % (Auto) 1.3 H Neut % (Auto) 65.9 Lymph % (Auto) 15.9 L [place] % (Auto) 13.3 H Eos % (Auto) 3.3 Baso % (Auto) 0.3 Lymph # (Auto) 1.0 L [place] # (Auto) 0.8 Eos # (Auto) 0.2 Baso # (Auto) 0.0 Abs Immat Gran (auto) 0.08 H Absolute Neuts (auto) 4.0 Absolute Nucleated RBC 0.040 H Nucleated RBC % (auto) 0.7 H Smear Tech's Comments PT INR Sodium 130 L Potassium 3.6 Chloride 100 Carbon Dioxide 24 Anion Gap 10 L BUN 9 Creatinine 0.50 Estim Creat Clear Calc 76.9 Estimated GFR > 60 POC Glucose 87 88 Random Glucose 92 Lactic Acid Calcium 8.3 L Phosphorus Magnesium Total Bilirubin 1.1 H Direct Bilirubin AST 22 ALT 15 Alkaline Phosphatase 102 Troponin I High Sens Total Protein 5.6 L Albumin 3.3 L Urine Color Urine Appearance Urine pH Ur Specific [place] Urine Protein Urine Glucose (UA) Urine Ketones Urine Blood Urine Nitrite Ur Leukocyte Esterase Urine RBC Urine WBC Ur Squamous Epith Cells Urine Bacteria Hyaline Casts Blood Type Antibody Screen 07/29/25 07/29/25 07/29/25 11:12 16:12 20:18 WBC RBC Hgb Hct MCV MCH MCHC RDW Plt Count MPV Immature Gran % (Auto) Neut % (Auto) Lymph % (Auto) [place] % (Auto) Eos % (Auto) Baso % (Auto) Lymph # (Auto) [place] # (Auto) Eos # (Auto) Baso # (Auto) Abs Immat Gran (auto) Absolute Neuts (auto) Absolute Nucleated RBC Nucleated RBC % (auto) Smear Tech's Comments PT INR Sodium Potassium Chloride Carbon Dioxide Anion Gap BUN Creatinine Estim Creat Clear Calc Estimated GFR POC Glucose 99 83 81 Random Glucose Lactic Acid Calcium Phosphorus Magnesium Total Bilirubin Direct Bilirubin AST ALT Alkaline Phosphatase Troponin I High Sens Total Protein Albumin Urine Color Urine Appearance Urine pH Ur Specific [place] Urine Protein Urine Glucose (UA) Urine Ketones Urine Blood Urine Nitrite Ur Leukocyte Esterase Urine RBC Urine WBC Ur Squamous Epith Cells Urine Bacteria Hyaline Casts Blood Type Antibody Screen 07/30/25 07/30/25 07/30/25 07:26 08:24 11:09 WBC 7.1 RBC 4.19 L Hgb 12.8 Hct 38.3 MCV 91.4 MCH 30.5 MCHC 33.4 RDW 13.9 Plt Count 95 L MPV 12.4 H Immature Gran % (Auto) Neut % (Auto) Lymph % (Auto) [place] % (Auto) Eos % (Auto) Baso % (Auto) Lymph # (Auto) [place] # (Auto) Eos # (Auto) Baso # (Auto) Abs Immat Gran (auto) Absolute Neuts (auto) Absolute Nucleated RBC 0.040 H Nucleated RBC % (auto) 0.6 H Smear Tech's Comments PT INR Sodium 134 L Potassium 3.6 Chloride 102 Carbon Dioxide 23 Anion Gap 13 BUN 7 L Creatinine 0.52 Estim Creat Clear Calc 74.0 Estimated GFR > 60 POC Glucose 71 96 Random Glucose 69 Lactic Acid Calcium 8.0 L Phosphorus Magnesium Total Bilirubin Direct Bilirubin AST ALT Alkaline Phosphatase Troponin I High Sens Total Protein Albumin Urine Color Urine Appearance Urine pH Ur Specific [place] Urine Protein Urine Glucose (UA) Urine Ketones Urine Blood Urine Nitrite Ur Leukocyte Esterase Urine RBC Urine WBC Ur Squamous Epith Cells Urine Bacteria Hyaline Casts Blood Type Antibody Screen 07/30/25 07/30/25 07/31/25 16:04 20:09 07:23 WBC RBC Hgb Hct MCV MCH MCHC RDW Plt Count MPV Immature Gran % (Auto) Neut % (Auto) Lymph % (Auto) [place] % (Auto) Eos % (Auto) Baso % (Auto) Lymph # (Auto) [place] # (Auto) Eos # (Auto) Baso # (Auto) Abs Immat Gran (auto) Absolute Neuts (auto) Absolute Nucleated RBC Nucleated RBC % (auto) Smear Tech's Comments PT INR Sodium Potassium Chloride Carbon Dioxide Anion Gap BUN Creatinine Estim Creat Clear Calc Estimated GFR POC Glucose 114 115 82 Random Glucose Lactic Acid Calcium Phosphorus Magnesium Total Bilirubin Direct Bilirubin AST ALT Alkaline Phosphatase Troponin I High Sens Total Protein Albumin Urine Color Urine Appearance Urine pH Ur Specific [place] Urine Protein Urine Glucose (UA) Urine Ketones Urine Blood Urine Nitrite Ur Leukocyte Esterase Urine RBC Urine WBC Ur Squamous Epith Cells Urine Bacteria Hyaline Casts Blood Type Antibody Screen 07/31/25 07/31/25 07/31/25 08:16 11: 16:14 WBC RBC Hgb 12.8 Hct 38.5 MCV MCH MCHC RDW Plt Count 127 L D MPV Immature Gran % (Auto) Neut % (Auto) Lymph % (Auto) [place] % (Auto) Eos % (Auto) Baso % (Auto) Lymph # (Auto) [place] # (Auto) Eos # (Auto) Baso # (Auto) Abs Immat Gran (auto) Absolute Neuts (auto) Absolute Nucleated RBC Nucleated RBC % (auto) Smear Tech's Comments PT INR Sodium Potassium Chloride Carbon Dioxide Anion Gap BUN Creatinine Estim Creat Clear Calc Estimated GFR POC Glucose 112 117 H Random Glucose Lactic Acid Calcium Phosphorus Magnesium Total Bilirubin Direct Bilirubin AST ALT Alkaline Phosphatase Troponin I High Sens Total Protein Albumin Urine Color Urine Appearance Urine pH Ur Specific [place] Urine Protein Urine Glucose (UA) Urine Ketones Urine Blood Urine Nitrite Ur Leukocyte Esterase Urine RBC Urine WBC Ur Squamous Epith Cells Urine Bacteria Hyaline Casts Blood Type Antibody Screen 07/31/25 08/01/25 08/01/25 20:08 07:36 11:02 WBC RBC Hgb Hct MCV MCH MCHC RDW Plt Count MPV Immature Gran % (Auto) Neut % (Auto) Lymph % (Auto) [place] % (Auto) Eos % (Auto) Baso % (Auto) Lymph # (Auto) [place] # (Auto) Eos # (Auto) Baso # (Auto) Abs Immat Gran (auto) Absolute Neuts (auto) Absolute Nucleated RBC Nucleated RBC % (auto) Smear Tech's Comments PT INR Sodium Potassium Chloride Carbon Dioxide Anion Gap BUN Creatinine Estim Creat Clear Calc Estimated GFR POC Glucose 172 H 91 146 H Random Glucose Lactic Acid Calcium Phosphorus Magnesium Total Bilirubin Direct Bilirubin AST ALT Alkaline Phosphatase Troponin I High Sens Total Protein Albumin Urine Color Urine Appearance Urine pH Ur Specific [place] Urine Protein Urine Glucose (UA) Urine Ketones Urine Blood Urine Nitrite Ur Leukocyte Esterase Urine RBC Urine WBC Ur Squamous Epith Cells Urine Bacteria Hyaline Casts Blood Type Antibody Screen 08/01/25 08/01/25 08/02/25 16:27 19:22 07:17 WBC RBC Hgb Hct MCV MCH MCHC RDW Plt Count MPV Immature Gran % (Auto) Neut % (Auto) Lymph % (Auto) [place] % (Auto) Eos % (Auto) Baso % (Auto) Lymph # (Auto) [place] # (Auto) Eos # (Auto) Baso # (Auto) Abs Immat Gran (auto) Absolute Neuts (auto) Absolute Nucleated RBC Nucleated RBC % (auto) Smear Tech's Comments PT INR Sodium Potassium Chloride Carbon Dioxide Anion Gap BUN Creatinine Estim Creat Clear Calc Estimated GFR POC Glucose 142 H 247 H 118 H Random Glucose Lactic Acid Calcium Phosphorus Magnesium Total Bilirubin Direct Bilirubin AST ALT Alkaline Phosphatase Troponin I High Sens Total Protein Albumin Urine Color Urine Appearance Urine pH Ur Specific [place] Urine Protein Urine Glucose (UA) Urine Ketones Urine Blood Urine Nitrite Ur Leukocyte Esterase Urine RBC Urine WBC Ur Squamous Epith Cells Urine Bacteria Hyaline Casts Blood Type Antibody Screen 08/02/25 08/02/25 08/02/25 11:01 16:03 19:58 WBC RBC Hgb Hct MCV MCH MCHC RDW Plt Count MPV Immature Gran % (Auto) Neut % (Auto) Lymph % (Auto) [place] % (Auto) Eos % (Auto) Baso % (Auto) Lymph # (Auto) [place] # (Auto) Eos # (Auto) Baso # (Auto) Abs Immat Gran (auto) Absolute Neuts (auto) Absolute Nucleated RBC Nucleated RBC % (auto) Smear Tech's Comments PT INR Sodium Potassium Chloride Carbon Dioxide Anion Gap BUN Creatinine Estim Creat Clear Calc Estimated GFR POC Glucose 104 114 135 H Random Glucose Lactic Acid Calcium Phosphorus Magnesium Total Bilirubin Direct Bilirubin AST ALT Alkaline Phosphatase Troponin I High Sens Total Protein Albumin Urine Color Urine Appearance Urine pH Ur Specific [place] Urine Protein Urine Glucose (UA) Urine Ketones Urine Blood Urine Nitrite Ur Leukocyte Esterase Urine RBC Urine WBC Ur Squamous Epith Cells Urine Bacteria Hyaline Casts Blood Type Antibody Screen 08/03/25 08/03/25 08/03/25 06:10 07:00 11:01 WBC 10.1 RBC 4.18 L Hgb 12.8 Hct 39.0 MCV 93.3 MCH 30.6 MCHC 32.8 RDW 14.2 Plt Count 207 D MPV 11.8 Immature Gran % (Auto) Neut % (Auto) Lymph % (Auto) [place] % (Auto) Eos % (Auto) Baso % (Auto) Lymph # (Auto) [place] # (Auto) Eos # (Auto) Baso # (Auto) Abs Immat Gran (auto) Absolute Neuts (auto) Absolute Nucleated RBC 0.000 Nucleated RBC % (auto) 0.0 Smear Tech's Comments PT INR Sodium 134 L Potassium 4.4 D Chloride 99 Carbon Dioxide 28 Anion Gap 11 L BUN 11 Creatinine 0.60 Estim Creat Clear Calc 64.1 Estimated GFR > 60 POC Glucose 129 H 113 Random Glucose 125 H Lactic Acid Calcium 8.7 D Phosphorus Magnesium Total Bilirubin Direct Bilirubin AST ALT Alkaline Phosphatase Troponin I High Sens Total Protein Albumin Urine Color Urine Appearance Urine pH Ur Specific [place] Urine Protein Urine Glucose (UA) Urine Ketones Urine Blood Urine Nitrite Ur Leukocyte Esterase Urine RBC Urine WBC Ur Squamous Epith Cells Urine Bacteria Hyaline Casts Blood Type Antibody Screen 08/03/25 08/03/25 08/04/25 16:02 19:47 07:34 WBC RBC Hgb Hct MCV MCH MCHC RDW Plt Count MPV Immature Gran % (Auto) Neut % (Auto) Lymph % (Auto) [place] % (Auto) Eos % (Auto) Baso % (Auto) Lymph # (Auto) [place] # (Auto) Eos # (Auto) Baso # (Auto) Abs Immat Gran (auto) Absolute Neuts (auto) Absolute Nucleated RBC Nucleated RBC % (auto) Smear Tech's Comments PT INR Sodium Potassium Chloride Carbon Dioxide Anion Gap BUN Creatinine Estim Creat Clear Calc Estimated GFR POC Glucose 110 117 H 133 H Random Glucose Lactic Acid Calcium Phosphorus Magnesium Total Bilirubin Direct Bilirubin AST ALT Alkaline Phosphatase Troponin I High Sens Total Protein Albumin Urine Color Urine Appearance Urine pH Ur Specific [place] Urine Protein Urine Glucose (UA) Urine Ketones Urine Blood Urine Nitrite Ur Leukocyte Esterase Urine RBC Urine WBC Ur Squamous Epith Cells Urine Bacteria Hyaline Casts Blood Type Antibody Screen 08/04/25 08/04/25 08/04/25 11:44 15:06 16:10 WBC 7.6 RBC 4.00 L Hgb 12.2 Hct 36.4 L MCV 91.0 MCH 30.5 MCHC 33.5 RDW 14.2 Plt Count 244 MPV 11.0 Immature Gran % (Auto) Neut % (Auto) Lymph % (Auto) [place] % (Auto) Eos % (Auto) Baso % (Auto) Lymph # (Auto) [place] # (Auto) Eos # (Auto) Baso # (Auto) Abs Immat Gran (auto) Absolute Neuts (auto) Absolute Nucleated RBC 0.000 Nucleated RBC % (auto) 0.0 Smear Tech's Comments PT INR Sodium Potassium Chloride Carbon Dioxide Anion Gap BUN Creatinine Estim Creat Clear Calc Estimated GFR POC Glucose 120 H 112 Random Glucose Lactic Acid Calcium Phosphorus Magnesium Total Bilirubin Direct Bilirubin AST ALT Alkaline Phosphatase Troponin I High Sens Total Protein Albumin Urine Color Urine Appearance Urine pH Ur Specific [place] Urine Protein Urine Glucose (UA) Urine Ketones Urine Blood Urine Nitrite Ur Leukocyte Esterase Urine RBC Urine WBC Ur Squamous Epith Cells Urine Bacteria Hyaline Casts Blood Type O Positive Antibody Screen NEGATIVE 08/04/25 08/04/25 08/05/25 19:51 19:57 06:07 WBC 7.5 7.3 RBC 4.02 L 4.04 L Hgb 12.3 12.3 Hct 36.5 L 36.6 L MCV 90.8 90.6 MCH 30.6 30.4 MCHC 33.7 33.6 RDW 14.1 14.2 Plt Count 248 268 MPV 11.0 10.8 Immature Gran % (Auto) Neut % (Auto) Lymph % (Auto) [place] % (Auto) Eos % (Auto) Baso % (Auto) Lymph # (Auto) [place] # (Auto) Eos # (Auto) Baso # (Auto) Abs Immat Gran (auto) Absolute Neuts (auto) Absolute Nucleated RBC 0.000 0.000 Nucleated RBC % (auto) 0.0 0.0 Smear Tech's Comments PT INR Sodium 131 L Potassium 3.3 D Chloride 97 Carbon Dioxide 29 Anion Gap 8 L BUN 13 Creatinine 0.48 L Estim Creat Clear Calc 80.2 Estimated GFR > 60 POC Glucose 117 H Random Glucose 114 Lactic Acid Calcium 7.6 L D Phosphorus Magnesium Total Bilirubin Direct Bilirubin AST ALT Alkaline Phosphatase Troponin I High Sens Total Protein Albumin Urine Color Urine Appearance Urine pH Ur Specific [place] Urine Protein Urine Glucose (UA) Urine Ketones Urine Blood Urine Nitrite Ur Leukocyte Esterase Urine RBC Urine WBC Ur Squamous Epith Cells Urine Bacteria Hyaline Casts Blood Type Antibody Screen 08/05/25 08/05/25 08/05/25 07:26 11:10 16:19 WBC RBC Hgb Hct MCV MCH MCHC RDW Plt Count MPV Immature Gran % (Auto) Neut % (Auto) Lymph % (Auto) [place] % (Auto) Eos % (Auto) Baso % (Auto) Lymph # (Auto) [place] # (Auto) Eos # (Auto) Baso # (Auto) Abs Immat Gran (auto) Absolute Neuts (auto) Absolute Nucleated RBC Nucleated RBC % (auto) Smear Tech's Comments PT INR Sodium Potassium Chloride Carbon Dioxide Anion Gap BUN Creatinine Estim Creat Clear Calc Estimated GFR POC Glucose 123 H 128 H 119 H Random Glucose Lactic Acid Calcium Phosphorus Magnesium Total Bilirubin Direct Bilirubin AST ALT Alkaline Phosphatase Troponin I High Sens Total Protein Albumin Urine Color Urine Appearance Urine pH Ur Specific [place] Urine Protein Urine Glucose (UA) Urine Ketones Urine Blood Urine Nitrite Ur Leukocyte Esterase Urine RBC Urine WBC Ur Squamous Epith Cells Urine Bacteria Hyaline Casts Blood Type Antibody Screen 08/05/25 08/06/25 08/06/25 20:47 05:47 07:28 WBC 7.5 RBC 4.19 L Hgb 12.8 Hct 39.7 MCV 94.7 MCH 30.5 MCHC 32.2 RDW 14.5 Plt Count 252 MPV 10.9 Immature Gran % (Auto) Neut % (Auto) Lymph % (Auto) [place] % (Auto) Eos % (Auto) Baso % (Auto) Lymph # (Auto) [place] # (Auto) Eos # (Auto) Baso # (Auto) Abs Immat Gran (auto) Absolute Neuts (auto) Absolute Nucleated RBC 0.000 Nucleated RBC % (auto) 0.0 Smear Tech's Comments PT INR Sodium 135 Potassium 2.8 L* Chloride 101 Carbon Dioxide 25 Anion Gap 12 BUN 11 Creatinine 0.43 L Estim Creat Clear Calc 89.5 Estimated GFR > 60 POC Glucose 116 H 103 Random Glucose 106 Lactic Acid Calcium 7.4 L Phosphorus 1.5 L Magnesium 2.3 Total Bilirubin Direct Bilirubin AST ALT Alkaline Phosphatase Troponin I High Sens Total Protein Albumin 3.2 L Urine Color Urine Appearance Urine pH Ur Specific [place] Urine Protein Urine Glucose (UA) Urine Ketones Urine Blood Urine Nitrite Ur Leukocyte Esterase Urine RBC Urine WBC Ur Squamous Epith Cells Urine Bacteria Hyaline Casts Blood Type Antibody Screen 08/06/25 08/06/25 08/06/25 11:30 16:07 20:48 WBC RBC Hgb Hct MCV MCH MCHC RDW Plt Count MPV Immature Gran % (Auto) Neut % (Auto) Lymph % (Auto) [place] % (Auto) Eos % (Auto) Baso % (Auto) Lymph # (Auto) [place] # (Auto) Eos # (Auto) Baso # (Auto) Abs Immat Gran (auto) Absolute Neuts (auto) Absolute Nucleated RBC Nucleated RBC % (auto) Smear Tech's Comments PT INR Sodium Potassium Chloride Carbon Dioxide Anion Gap BUN Creatinine Estim Creat Clear Calc Estimated GFR POC Glucose 108 102 101 Random Glucose Lactic Acid Calcium Phosphorus Magnesium Total Bilirubin Direct Bilirubin AST ALT Alkaline Phosphatase Troponin I High Sens Total Protein Albumin Urine Color Urine Appearance Urine pH Ur Specific [place] Urine Protein Urine Glucose (UA) Urine Ketones Urine Blood Urine Nitrite Ur Leukocyte Esterase Urine RBC Urine WBC Ur Squamous Epith Cells Urine Bacteria Hyaline Casts Blood Type Antibody Screen 08/07/25 08/07/25 05:46 07:18 WBC 6.8 RBC 3.92 L Hgb 11.8 L Hct 35.6 L MCV 90.8 MCH 30.1 MCHC 33.1 RDW 14.4 Plt Count 285 MPV 10.3 Immature Gran % (Auto) Neut % (Auto) Lymph % (Auto) [place] % (Auto) Eos % (Auto) Baso % (Auto) Lymph # (Auto) [place] # (Auto) Eos # (Auto) Baso # (Auto) Abs Immat Gran (auto) Absolute Neuts (auto) Absolute Nucleated RBC 0.000 Nucleated RBC % (auto) 0.0 Smear Tech's Comments PT INR Sodium 136 Potassium 3.1 L Chloride 101 Carbon Dioxide 29 Anion Gap 9 L BUN 11 Creatinine 0.47 L Estim Creat Clear Calc 81.9 Estimated GFR > 60 POC Glucose 139 H Random Glucose 137 H Lactic Acid Calcium 7.5 L Phosphorus 1.2 L Magnesium 2.5 Total Bilirubin 0.8 Direct Bilirubin 0.4 AST 23 ALT 8 Alkaline Phosphatase 56 Troponin I High Sens Total Protein 5.4 L Albumin 3.2 L Urine Color Urine Appearance Urine pH Ur Specific [place] Urine Protein Urine Glucose (UA) Urine Ketones Urine Blood Urine Nitrite Ur Leukocyte Esterase Urine RBC Urine WBC Ur Squamous Epith Cells Urine Bacteria Hyaline Casts Blood Type Antibody Screen Narrative Narrative: ECHO 05/2025 Conclusions: - 1. Normal LV ejection fraction of 60 65% with mild LVH 2. Moderate biatrial enlargement 3. Mild aortic and mitral regurgitation 4. Upper limits of normal RV systolic pressure with mildly elevated right atrial pressures 5. Trivial pericardial effusion EKG 07/28/25 Vent. Rate : 87 BPM Atrial Rate : * BPM P-R Int : * ms QRS Dur : 140 ms QT Int : 382 ms P-R-T Axes : * -10 -59 degrees QTcB Int : 459 ms Atrial fibrillation with premature ventricular or aberrantly conducted complexes Right bundle branch block T wave abnormality, consider lateral ischemia Abnormal ECG When compared with ECG of 23-May-2025 01:24, QT has shortened Documented by User: Alecia Loya MD 08/07/25 11:49 [facility] Past Medical History Medical History CHF (congestive heart failure) Paroxysmal atrial fibrillation Atrial fibrillation with RVR Hyponatremia DM type 2 (diabetes mellitus, type 2) Spinal stenosis 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 Lesion of bone of lumbosacral spine Multiple myeloma Lower back pain Impacted cerumen of both ears Dysplastic nevus Vitamin D deficiency Annual physical exam Palpitations Leukoplakia of tongue Hyperlipidemia Peripheral neuropathy Dysuria Family History Family History Father No problems noted. Mother No problems noted. Son Diabetes Family history of problems with anesthesia: No Surgical History Surgical History H/O arthroscopy of knee H/O varicose vein ligation H/O: hysterectomy H/O mastectomy H/O colonoscopy History of Problems with Anesthesia: No Social History Social History Household Members: None Household Members Other:: d/c from [facility] 05/06 staying w/ daughter Barbara at this time. Housing: House Are you a primary senior resident care director to a significant other at home: No Do you presently have visiting nurse or other home services: No Alcohol intake: former Patient Tobacco Use Status: Never used Tobacco e-Cigarette/Vaping Use: Never Used Second Hand Smoke Exposure: No Advance Directives Date on File: 12/10/24 service: No Current occupational status: retired Gender identity: Female Cognitive needs: No Hearing needs: No Vision needs: Yes Meds Allergies Allergy/AdvReac Type Severity Reaction Status Date / Time hydralazine Allergy Unknown Verified 07/28/25 12:00 hydrochlorothiazide AdvReac Intermediate Palpitation Verified 07/28/25 12:00 s amlodipine AdvReac DIZZINESS Verified 07/28/25 12:00 sotalol AdvReac Palpitation Verified 07/28/25 12:00 s Home Medications ?Medication ?Instructions ?Recorded ?Confirmed ?Last Taken ?Type omeprazole 20 mg capsule,delayed 20 mg PO DAILY@0630 0 03/19/25 07/28/25 07/28/25 History release Lactobacillus rhamnosus GG 10 1 cap PO BID 05/22/2507/27/25 History billion cell capsule (Culturelle) atorvastatin 10 mg tablet (Lipitor) 10 mg PO BEDTIME 0 05/22/25 07/28/25 07/27/25 History furosemide 20 mg tablet (Lasix) 40 mg PO DAILY PRN Flu id Retention 07/28/2507/18 Unknown History metoprolol succinate 50 mg 50 mg PO BID 07/28/2507/2807/28/25 History tablet,extended release 24 hr Exam Airway Mallampati Class: II (edentulous) TM Dist: >3cm Neck ROM: Full Heart: irreg Lungs: cta Assessment and Plan Assessment Anesthesia Assessment: Anesthesia Plan Discussed and Chart Reviewed Final Anesthetic Review Family History of Problems with Anesthesia: No History of Problems with Anesthesia: No NPO: Yes ASA Class: III Final Preanesthetic Review: No Changes in Pt Med Stat, Meds/Allgs Chart Reviewed and Consent Obtained/Reviewed Patient Risk: High Procedure Risk: Intermediate Anesthetic Plan Anesthetic Plan: GA Disposition: Standard PACU
--- NOTE | 2025-08-07 09:24 | P.PNIM_ITS ---
Subjective Subjective Date of Service: 08/07/25 Interval History: Feeling terrible, unable to tolerate p.o. Physical Exam 2 Vital Signs: Vital Signs: Last Vital Signs Temp 97.4 F 08/07/25 07:39 Pulse 129 H 08/07/25 07:39 Resp 16 08/07/25 07:39 BP 147/97 H 08/07/25 07:39 Pulse Ox 96 08/07/25 07:39 O2 Del Method Room Air 08/07/25 07:39 BMI result Body Mass Index 22.7 Const: General: no acute distress Resp: Effort & Inspection: normal respiratory effort Cardio: Rate: regular rate GI: Palpation (GI): Soft to palpation, not firm, Tenderness to palpation present (GI) (Some tenderness on the lower abdomen) and no guarding Objective Data Active Medications Atorvastatin Calcium (Atorvastatin Calcium 10 Mg Tablet) 10 mg PO BEDTIME [facility] Last Admin: 08/06/25 20:40 Dose: Not Given Documented By: BRENDA Non-Admin Reason: Patient Refused Calcium Carbonate (Calcium Carbonate 750 Mg Tab.Chew) 750 mg PO Q4H PRN PRN Reason: Heartburn Dextrose (Dextrose 50 % 25 Gm/50 Ml Syringe) 25 gm IVPUSH Q15M PRN; Protocol PRN Reason: per Hypoglycemia Standing Ord. Digoxin (Digoxin 0.125 Mg Tablet) 0.125 mg PO DAILY [facility]; Protocol Last Admin: 08/07/25 09:03 Dose: Not Given Documented By: WALTER Non-Admin Reason: Patient Refused Docusate Sodium (Docusate Sodium 100 Mg Capsule) 100 mg PO BID [facility] Last Admin: 08/07/25 09:03 Dose: Not Given Documented By: WALTER Non-Admin Reason: NPO Enoxaparin Sodium (Enoxaparin Sodium 60 Mg/0.6 Ml Syringe) 60 mg SUBCUT Q12H [facility] On Hold: 08/04/25 15:19 Last Admin: 08/04/25 09:13 Dose: 60 mg Documented By: GA Glucose (Glucose Gel 15 Gm Gel..Gram.) 15 gm PO Q15M PRN; Protocol PRN Reason: per Hypoglycemia Standing Ord. Lactated Ringer's (Lr) 1,000 mls @ 80 mls/hr IVCONT .[id number] [facility] Last Admin: 08/07/25 08:26 Dose: Not Given Documented By: WALTER Non-Admin Reason: ppn infusing Piperacillin Sod/Tazobactam (Sod 3.375 gm/ Sodium Chloride) 50 mls @ 100 mls/hr IV Q6H [facility] Last Infusion: 08/07/25 06:01 Dose: Infused Documented By: BRENDA Nutrition (Parenteral) (Parenteral Nutrition) 1,320 mls @ 55 mls/hr IV .Q24H [facility]; Protocol Stop: 08/07/25 20:59 Last Admin: 08/06/25 20:38 Dose: 55 mls/hr Documented By: BRENDA Acetaminophen (Ofirmev) 1,000 mg in 100 mls @ 400 mls/hr IV Q6H [facility] Last Infusion: 08/07/25 06:30 Dose: Infused Documented By: BRENDA Potassium Chloride (Potassium Chloride/H20) 10 meq in 100 mls @ 100 mls/hr IV Q1H [facility] Stop: 08/07/25 13:14 Magnesium Hydroxide (Milk Of Magnesia 30 Ml Oral.Susp) 30 ml PO DAILY PRN PRN Reason: Constipation Last Admin: 08/03/25 07:47 Dose: 30 ml Documented By: ERICH Melatonin (Melatonin 3 Mg Tablet) 6 mg PO BEDTIME PRN PRN Reason: Insomnia Metoclopramide HCl (Metoclopramide Hcl 10 Mg/2 Ml Vial) 5 mg IVPUSH Q6H PRN PRN Reason: Nausea and Vomiting Last Admin: 08/06/25 11:24 Dose: 5 mg Documented By: WALTER Metoprolol Succinate (Metoprolol Succinate Er 50 Mg Tab.Er.24h) 50 mg PO BID [facility]; Protocol Last Admin: 08/07/25 09:03 Dose: Not Given Documented By: WALTER Non-Admin Reason: Patient Refused Metoprolol Tartrate (Metoprolol Tartrate 5 Mg/5 Ml Vial) 5 mg IVPUSH Q6H PRN; Protocol PRN Reason: HR>90 Morphine Sulfate (Morphine Sulfate 4 Mg/Ml Cartridge) 2 mg IVPUSH Q4H PRN; Protocol PRN Reason: Pain, Severe (Pain Scale 7-10) Last Admin: 08/07/25 05:28 Dose: 2 mg Documented By: BRENDA Omeprazole (Omeprazole 20 Mg Capsule.) 20 mg PO DAILY@0630 [facility] Last Admin: 08/07/25 05:25 Dose: Not Given Documented By: BRENDA Non-Admin Reason: Patient Refused Comments: d/t any po cause n/v - pt preop for lap resection Ondansetron HCl (Ondansetron Hcl 4 Mg/2 Ml Vial) 4 mg IVPUSH Q8H PRN PRN Reason: Nausea and Vomiting Last Admin: 08/06/25 08:13 Dose: 4 mg Documented By: WALTER Pantoprazole Sodium (Pantoprazole Sodium 40 Mg/10 Ml Vial) 40 mg IVPUSH BID@0630,1630 [facility] Last Admin: 08/07/25 05:24 Dose: 40 mg Documented By: BRENDA Pharmacy Consult (Consult Rx Parenteral Nutrition Ordering) 1 each MISCELLANE DAILY PRN PRN Reason: Consult order Polyethylene Glycol (Polyethylene Glycol 3350 17 Gm Powd.Pack) 17 gm PO DAILY [facility] Last Admin: 08/07/25 08:09 Dose: Not Given Documented By: WALTER Non-Admin Reason: Patient Refused Sodium Chloride (0.9 % Sodium Chloride Flush 3 Ml Syringe) 3 ml IVFLUSH QSHIFT [facility] Last Admin: 08/07/25 08:09 Dose: 3 ml Documented By: WALTER Labs 08/07/25 05:46 08/07/25 05:46 Labs: Laboratory Results - last 24 hr 08/06/25 08/06/25 08/06/25 05:47 11:30 16:07 MCV MCH MCHC RDW Plt Count MPV Absolute Nucleated RBC Nucleated RBC % (auto) Anion Gap Estim Creat Clear Calc Estimated GFR POC Glucose 108 102 Random Glucose Calcium Phosphorus 1.5 L Magnesium 2.3 Total Bilirubin Direct Bilirubin AST ALT Alkaline Phosphatase Total Protein Albumin 3.2 L 08/06/25 08/07/25 08/07/25 20:48 05:46 07:18 MCV 90.8 MCH 30.1 MCHC 33.1 RDW 14.4 Plt Count 285 MPV 10.3 Absolute Nucleated RBC 0.000 Nucleated RBC % (auto) 0.0 Anion Gap 9 L Estim Creat Clear Calc 81.9 Estimated GFR > 60 POC Glucose 101 139 H Random Glucose 137 H Calcium 7.5 L Phosphorus 1.2 L Magnesium 2.5 Total Bilirubin 0.8 Direct Bilirubin 0.4 AST 23 ALT 8 Alkaline Phosphatase 56 Total Protein 5.4 L Albumin 3.2 L Assessment and Plan (1) Paroxysmal atrial fibrillation: Status: Acute Plan 84F PMH pafib on eliquis, multiple myeloma with bone mets, DM, hld, presented with abdominal pain, found to have acute diverticulitis with abscess acute diverticulitis with abscess still no appetite, changed to iv zosyn, ct with possible colonic obstruction, persistent abscess plan for surgery today continue ppn acute hypokalemia Replace and monitor paroxysmal AFib wtih rvr continue digoxin and metoprolol - iv while not taking po holding anticoagulation for surgery chronic diastolic CHF No signs of hypervolemia multiple myeloma with bone Mets oxycodone for pain, outpatient follow up with Dr. Watts hypertension lisinopril hyperlipidemia statin DVT prophylaxis -mechanical due to possible intervention/ blood in stool full code reason for continued hospitalization: not tolerating p.o., IV antibiotics Quality Stroke Does the patient have a stroke diagnosis?: No VTE Prior VTE?: No VTE Risk Level:: Medical - moderate - high VTE Device Contraindication: Treatment Not Indicated VTE Drug Contraindication: N/A - Med Ordered
--- NOTE | 2025-08-07 09:25 | PM.EVENT ---
Event Note Date of Service: 08/07/25 Event Note: She says she still has this occasional crampy lower abdominal pain Again she says that she does not feel that this is improving She has some smearing of stools but denies significant flatus Abdomen remained soft and benign although with some lower abdominal tenderness I have reviewed her CAT scan with the radiologist - there is a long segment of edema of the sigmoid probably about [address] to the rectosigmoid Possible small abscess in the deep pelvis on the left No obvious mass Radiologic picture suggestive of obstruction from this long segment of very edematous sigmoid colon with subsequent marked dilatation of the proximal sigmoid all the way to the cecum This is suggestive more of a colitis type inflammation rather than diverticulitis Involved with the patient's non improvement for over a week now with an ability to pass good amounts of flatus, significant colonic distention from distal obstruction on CAT scan, she is scheduled for hand assisted laparoscopic sigmoid resection and stoma today It may be likely as well that we will just drain the abscess, bring out a diverting stoma if significant dissection in the pelvis he is necessary for resection She is extreme age with significant cardiac history so we will try to limit anesthesia time as much as possible I have explained the above multiple times with the patient and her daughter Katherin and they appeared to have a good understanding of the plan Time Spent With Patient Time: Total time managing care of this patient today ____ minutes.
[2025-08-07] MEDS: Potassium Chloride/H20 10 MEQ/100 ML PIGGYBACK 100 MEQ IV ×4 (09:37→19:38)
--- NOTE | 2025-08-07 10:58 | MHC.CLN ---
F/U DIET RX: NPO. PATIENT SCHEDULED FOR SIGMOID RESECTION TODAY. PPN STARTED 08/06. REVIEWED LABS. COMMUNICATED WITH PHARMACY. RECOMMEND ADVANCE TODAY TO PPN AT 75ML/HR TO PROVIDE 918KCALS, 180G DEXTROSE, 77G PROTEIN. REPLETE LYTES NEEDED. CHECK TRIGLYCERIDES. FOLLOW FOR PPN TOLERANCE AND DIET ADVANCEMENT. RECOMMEND INCREASE TO MAX GOAL RATE 08/08 IF ABLE: PPN AT 90 ML PER HOUR, ADD 80 G LIPIDS. PROVIDES 1902 TOTAL KCALS (29.8 KCALS/KG), 92 G PROTEIN (1.4 G/KG), 216 G DEXTROSE. REPLETE LYTES A NEEDED. RD AVAILABLE VIA TIGER TEXT FOR WEEKEND.
[2025-08-07] MEDS: Potassium Phosphate/NS 15 MMOL/250 ML PLAST..BAG 62.5 MMOL IV (11:31)
[2025-08-07] MEDS: Lactated Ringers 1,000 ML 80 ML IVCONT (11:38)
--- NOTE | 2025-08-07 14:28 | P.OP_ITS ---
Operative Note Operative Note Date of Service: 08/07/25 Narrative: Preop diagnosis: Distal sigmoid obstruction, with abscess, colitis on CAT scan Postop diagnosis: Distal sigmoid obstruction, colitis of the sigmoid, with a left pelvic sidewall abscess, edema of the left colon, sigmoid with severe indurated adhesions in the pelvis tethering the distal sigmoid the sidewall all the way distally Procedure: Hand assisted laparoscopic loop sigmoid colostomy, extensive lysis of adhesions, drainage of pelvic abscess Surgeon: Roosevelt Beebe MD assistant hairstylist: KATH Perry The patient is an 84-year-old female admitted because of what initially was thought to be a sigmoid diverticulitis with a small pelvic abscess which was deemed to be not amenable to drainage by IR. She had no significant improvement with regards to the crampy abdominal pain and nausea since admission last week. He had been unable to take oral intake because of the symptoms. She was not passing any significant nor consistent flatus or BMs the past week. Follow up CAT scan yesterday showed significant distention of the entire colon tapering in the distal sigmoid which was very edematous, inflamed with persistent abscess in the pelvis on the left. In view of her non improvement with signs of obstruction, I explained to her it might be best to proceed with surgical intervention with possible resection. She understood the technique of the planned procedure. She was aware of the risks, benefits, and alternatives She was brought to the operating room. She was placed in modified lithotomy position under anesthesia via endotracheal tube. A Amaral catheter was inserted. The urine output was clear. All pressure points in the legs as well as the arms were protected. A tap block was done by the anesthesiologist The abdomen was prepped and draped usual sterile fashion. A surgical time time- out was done. The patient on scheduled IV antibiotics A short low midline incision with the skin with a blade 15. This carried down with electrocautery through the full-thickness skin and subcutaneous fat down to the fascia. The fascia was incised. The peritoneum was entered. The Benja wound retractor in the GelPort were positioned. Insufflation was done through a insufflating port and the camera was inserted. Laparoscopic visualization we inserted a 5/12 mm port in the epigastric area through a small incision. We moved the insufflation to this port. The patient is placed in a steep head-down [id number] position. The 10 mm 30 degree laparoscope was placed through the epigastric port With laparoscopic visualization we examined the pelvis. I inserted a 5 mm port in the right lower quadrant. I placed my hand through the GelPort and reflected all the bowel loops from the pelvis. The sigmoid in the left colon was noted. The sigmoid appeared to be edematous and in the distal sigmoid there was note of severe induration with densely adherent sigmoid to the pelvic sidewall. This extended all the way into the rectosigmoid which also appeared to be stuck to the sidewall . We proceeded to mobilize the left colon by dividing the ligamentous attachments along the white line of [place] with the LigaSure. I extended the all the way to the proximal left colon. I also divided the ligamentous attachments in the sigmoid all the way distally until I reach this area of severe induration. We had very difficult planes in this area of induration which I presume would be the area of the abscess seen on the CAT scan. We had to proceed slowly to mobilize this area. We had to dissect in a mm mm fashion through this indurated area to separate the distal sigmoid from the sidewall and until we are able to actually open up an this cavity . We drained this abscess cavity with the suction. We attempted to bring up the loop through an opening in the left lower quadrant which I had previously marked. I opened up this stoma incision excising a discoid piece of skin, dissected through the subcutaneous fat, dividing the anterior sheath, and doing muscle-splitting on the rectus. I then passed a [place] drain through a mesenteric defect in the sigmoid anoscopic easily. I then pulled up this [place] drain through this stoma opening. Initially, we did not have significant mobilization to allow us to pull up this loop past the skin level. I therefore reinserted all ports applied the GelPort. I then proceeded to mobilize more of the left colon all the way to the splenic flexure with the LigaSure to release this and achieve more length We then proceeded to pull up this loop of sigmoid again with the [place] drain and this time we are able to bring it up past the skin level. I replaced the Taye drain with a stoma bridge I positioned a ANNIKA drain #10 at the area of the abscess. The ANNIKA drain was brought out through the port site in the right lower quadrant. This has secured to the skin with nylon 3-0 sutures I examined the abdomen through the midline incision clean. There was no evidence of any bleeding or any bowel injury on the bowel loops I therefore closed the fascia with a running [place] 1 stitch. I closed the skin with skin radha We then examined the abdomen laparoscopically. The efferent and afferent limbs of the stoma appeared viable without any evidence of any or bowel injury. There was no bleeding in the pelvis or the left side of the abdomen. The bowel loops appeared unremarkable . We then proceeded to desufflate and removed all ports. We closed the epigastric skin incision with skin radha Proceeded to mature the stoma. I incised the anterior wall with electrocautery transversely. I secured the anterior wall to the surrounding subdermal layer with 3-0 sutures to open this up I probed the efferent and afferent limbs through the stoma opening and both were patent past the fascial level The mucosa of this sigmoid loop appeared erythematous likely because of the ongoing colitis We then applied the stoma appliance. Dressings were applied and the procedure was completed The patient tolerated the procedure well. There were no immediate complications. Initial and final counts of sponges and instruments were correct. Estimated blood loss was about 75 cc. The patient is extubated without difficulty transferred to the recovery room with stable vital signs. It is also noted that the patient was in AFib with rapid ventricular response for a long part of the procedure. The patient was therefore be transferred to [facility].
--- NOTE | 2025-08-07 15:23 | MHC.CM.PN ---
Patient planned for transfer to [facility] Post op.
--- NOTE | 2025-08-07 15:45 | PM.EVENT ---
Event Note Date of Service: 08/10/25 Event Note: Seen postop Status post sigmoid loop colostomy, drainage of pelvic abscess Appears to have good pain control Stable vital signs Stoma very erythematous but otherwise viable Abdomen is soft ANNIKA drain serosanguineous Good urine output, clear Pain management Family updated Going to telemetry in view of AFib and rapid ventricular response during the procedure Time Spent With Patient Time: Total time managing care of this patient today ____ minutes.
[2025-08-07 16:01] LABS: Glucose, Whole Blood 157 mg/dL (60-115)
--- NOTE | 2025-08-07 19:47 | PC.NURSE ---
Pt's daughter Katherin, , asks for significant updates.
--- NOTE | 2025-08-07 19:48 | PC.NURSE ---
Pt came to floor post surgery. A&O x4. Pain and tenderness to abdomen. Reports everything feels tight. Ostomy is beefy red with bloody output. Bloody output from ANNIKA drain. Amaral patent and draining, pt reports sensation that she needs to urinate. Poor appetite. Taking sips of clears.
[2025-08-07 20:25] LABS: Glucose, Whole Blood 199 mg/dL (60-115)
[2025-08-07] MEDS: Metoprolol Succinate ER 50 MG TAB.ER.24H PO (22:10)
[2025-08-07] MEDS: Parenteral Nutrition 1,800 ML 75 ML IV (22:39)
[2025-08-08] VITALS (7 sets, daily range): BP systolic 130–182; BP diastolic 73–97; PULSE 70–102; RESP 18–20; TEMP 36.3–37.1; O2SAT 95–98
[2025-08-08 07:59] LABS: Hematocrit 37.8 % (37.0-47.0); Hemoglobin 12.1 g/dl (12.0-16.0); Imm Gran Abs Auto 0.10 X10*3/uL (0.00-0.03); Imm Gran Pct Auto 0.9 % (0.0-0.4); Lymphocytes Absolute Auto 0.6 X10*3/uL (1.2-4.9); MANUAL DIFF FLAG SCAN; Mean Corpuscular HGB Conc 32.0 g/dl (31.0-35.0); Mean Corpuscular Hemoglobin 31.0 pg (27.0-33.0); Mean Corpuscular Volume 96.9 fL (80.0-98.0); NRBC Abs Auto 0.000 X10*3/uL (0.0-0.012); NRBC Pct Auto 0.0 /100WBC (0.0-0.2); PLT CLUMP 1; Red Blood Count 3.90 X10*6/uL (4.20-5.50); SCAN SMEAR FLAG 1
[2025-08-08 08:14] LABS: Alanine Aminotransferase 7 U/L (0-31); Albumin Level 3.1 g/dL (3.5-5.0); Alkaline Phosphatase 62 U/L (39-117); Aspartate Amino Transferase 27 U/L (5-31); Blood Urea Nitrogen 10 mg/dL (9-16); Calcium 7.4 mg/dL (8.4-10.2); Creatinine Clr Calc Pharmacy 81.9; Estimated Glomerular Filt Rate > 60; Magnesium 2.6 mg/dL (1.6-2.6); Total Protein 5.4 g/dL (6.5-8.0); Triglycerides 64 mg/dL (<150)
[2025-08-08 08:16] LABS: Glucose, Whole Blood 210 mg/dL (60-115)
[2025-08-08 08:23] LABS: Anion Gap 13 (12-20); Carbon Dioxide 22 mmol/L (22-29); Chloride 100 mmol/L (96-108); Potassium 4.7 mmol/L (3.3-5.1); Sodium 130 mmol/L (135-145)
[2025-08-08] MEDS: Metoprolol Succinate ER 50 MG TAB.ER.24H PO ×2 (08:26→19:51)
[2025-08-08] MEDS: 0.9 % Sodium Chloride Flush 3 ML SYRINGE IVFLUSH ×2 (08:28→14:25)
[2025-08-08 09:03] LABS: Platelet Count 254 X10*3/uL (160-400); White Blood Count 11.6 X10*3/uL (4.8-10.8)
--- NOTE | 2025-08-08 10:23 | P.PNIM_ITS ---
Subjective Subjective Date of Service: 08/08/25 Interval History: surgical site pain Physical Exam 2 Vital Signs: Vital Signs: Last Vital Signs Temp 98.8 F 08/08/25 08:30 Pulse 99 08/08/25 08:30 Resp 18 08/08/25 08:30 BP 130/73 08/08/25 08:30 Pulse Ox 97 08/08/25 08:00 O2 Del Method Room Air 08/08/25 08:00 O2 Flow Rate 6 08/07/25 14:54 BMI result Body Mass Index 22.7 Const: General: no acute distress Resp: Effort & Inspection: normal respiratory effort Cardio: Rate: regular rate GI: Palpation (GI): Soft to palpation, not firm, Tenderness to palpation present (GI) (Some tenderness on the lower abdomen) and no guarding Objective Data Active Medications Atorvastatin Calcium (Atorvastatin Calcium 10 Mg Tablet) 10 mg PO BEDTIME [facility] Last Admin: 08/07/25 22:10 Dose: 10 mg Documented By: TRISHA Calcium Carbonate (Calcium Carbonate 750 Mg Tab.Chew) 750 mg PO Q4H PRN PRN Reason: Heartburn Dextrose (Dextrose 50 % 25 Gm/50 Ml Syringe) 25 gm IVPUSH Q15M PRN; Protocol PRN Reason: per Hypoglycemia Standing Ord. Dextrose (Dextrose 50 % 25 Gm/50 Ml Syringe) 25 gm IVPUSH Q15M PRN; Protocol PRN Reason: per Hypoglycemia Standing Ord. Digoxin (Digoxin 0.125 Mg Tablet) 0.125 mg PO DAILY [facility]; Protocol Last Admin: 08/08/25 08:26 Dose: 0.125 mg Documented By: MONISHA Enoxaparin Sodium (Enoxaparin Sodium 60 Mg/0.6 Ml Syringe) 60 mg SUBCUT Q12H [facility] On Hold: 08/04/25 15:19 Last Admin: 08/04/25 09:13 Dose: 60 mg Documented By: BURXiao Glucose (Glucose Gel 15 Gm Gel..Gram.) 15 gm PO Q15M PRN; Protocol PRN Reason: per Hypoglycemia Standing Ord. Glucose (Glucose Gel 15 Gm Gel..Gram.) 15 gm PO Q15M PRN; Protocol PRN Reason: per Hypoglycemia Standing Ord. Piperacillin Sod/Tazobactam (Sod 3.375 gm/ Sodium Chloride) 50 mls @ 100 mls/hr IV Q6H [facility] Last Infusion: 08/08/25 05:04 Dose: Infused Documented By: TRISHA Acetaminophen (Ofirmev) 1,000 mg in 100 mls @ 400 mls/hr IV Q6H [facility] Last Infusion: 08/08/25 09:42 Dose: Infused Documented By: MONISHA Nutrition (Parenteral) (Parenteral Nutrition) 1,800 mls @ 75 mls/hr IV .Q24H [facility]; Protocol Stop: 08/08/25 20:59 Last Admin: 08/07/25 22:39 Dose: 75 mls/hr Documented By: TRISHA Nutrition (Parenteral) (Parenteral Nutrition) 2,160 mls @ 90 mls/hr IV .Q24H [facility]; Protocol Stop: 08/09/25 20:59 Insulin Human Lispro (Insulin Lispro 100 Unit/Ml 3 Ml Vial) 0 unit SUBCUT QIDACHS [facility]; Protocol Last Admin: 08/08/25 08:22 Dose: 4 unit Documented By: MONISHA Magnesium Hydroxide (Milk Of Magnesia 30 Ml Oral.Susp) 30 ml PO DAILY PRN PRN Reason: Constipation Last Admin: 08/03/25 07:47 Dose: 30 ml Documented By: ERICH Melatonin (Melatonin 3 Mg Tablet) 6 mg PO BEDTIME PRN PRN Reason: Insomnia Metoclopramide HCl (Metoclopramide Hcl 10 Mg/2 Ml Vial) 5 mg IVPUSH Q6H PRN PRN Reason: Nausea and Vomiting Last Admin: 08/06/25 11:24 Dose: 5 mg Documented By: WALTER Metoprolol Succinate (Metoprolol Succinate Er 50 Mg Tab.Er.24h) 50 mg PO BID [facility]; Protocol Last Admin: 08/08/25 08:26 Dose: 50 mg Documented By: MONISHA Metoprolol Tartrate (Metoprolol Tartrate 5 Mg/5 Ml Vial) 5 mg IVPUSH Q6H PRN; Protocol PRN Reason: HR>90 Last Admin: 08/07/25 09:29 Dose: 5 mg Documented By: WALTER Morphine Sulfate (Morphine Sulfate 4 Mg/Ml Cartridge) 3 mg IVPUSH Q3H PRN; Protocol PRN Reason: Pain, Severe (Pain Scale 7-10) Last Admin: 08/08/25 07:40 Dose: 3 mg Documented By: MONISHA Omeprazole (Omeprazole 20 Mg Capsule.) 20 mg PO DAILY@0630 [facility] Last Admin: 08/08/25 05:55 Dose: 20 mg Documented By: TRISHA Ondansetron HCl (Ondansetron Hcl 4 Mg/2 Ml Vial) 4 mg IVPUSH Q8H PRN PRN Reason: Nausea and Vomiting Last Admin: 08/06/25 08:13 Dose: 4 mg Documented By: WALTER Pharmacy Consult (Consult Rx Parenteral Nutrition Ordering) 1 each MISCELLANE DAILY PRN PRN Reason: Consult order Polyethylene Glycol (Polyethylene Glycol 3350 17 Gm Powd.Pack) 17 gm PO DAILY [facility] Last Admin: 08/08/25 08:26 Dose: 17 gm Documented By: MONISHA Sodium Chloride (0.9 % Sodium Chloride Flush 3 Ml Syringe) 3 ml IVFLUSH QSHIFT [facility] Last Admin: 08/08/25 08:28 Dose: 3 ml Documented By: MONISHA Labs 08/08/25 06:46 08/08/25 06:46 Labs: Laboratory Results - last 24 hr 08/07/25 08/07/25 08/08/25 15:50 20:21 06:46 MCV 96.9 D MCH 31.0 MCHC 32.0 RDW 15.1 Plt Count 254 MPV 10.8 Immature Gran % (Auto) 0.9 H Neut % (Auto) 87.5 H Lymph % (Auto) 4.8 L [place] % (Auto) 6.3 Eos % (Auto) 0.0 Baso % (Auto) 0.5 Lymph # (Auto) 0.6 L [place] # (Auto) 0.7 Eos # (Auto) 0.0 Baso # (Auto) 0.1 Abs Immat Gran (auto) 0.10 H Absolute Neuts (auto) 10.2 H Absolute Nucleated RBC 0.000 Nucleated RBC % (auto) 0.0 Smear Tech's Comments VERIFIED Anion Gap 13 Estim Creat Clear Calc 81.9 Estimated GFR > 60 POC Glucose 157 H 199 H Random Glucose 213 H Estimat Average Glucose 131 Hemoglobin A1c % 6.2 H Calcium 7.4 L Phosphorus 2.0 L Magnesium 2.6 Total Bilirubin 0.8 AST 27 ALT 7 Alkaline Phosphatase 62 Total Protein 5.4 L Albumin 3.1 L Triglycerides 64 08/08/25 08:04 MCV MCH MCHC RDW Plt Count MPV Immature Gran % (Auto) Neut % (Auto) Lymph % (Auto) [place] % (Auto) Eos % (Auto) Baso % (Auto) Lymph # (Auto) [place] # (Auto) Eos # (Auto) Baso # (Auto) Abs Immat Gran (auto) Absolute Neuts (auto) Absolute Nucleated RBC Nucleated RBC % (auto) Smear Tech's Comments Anion Gap Estim Creat Clear Calc Estimated GFR POC Glucose 210 H Random Glucose Estimat Average Glucose Hemoglobin A1c % Calcium Phosphorus Magnesium Total Bilirubin AST ALT Alkaline Phosphatase Total Protein Albumin Triglycerides Assessment and Plan (1) Paroxysmal atrial fibrillation: Status: Acute Plan 84F PMH pafib on eliquis, multiple myeloma with bone mets, DM, hld, presented with abdominal pain, found to have acute diverticulitis with abscess acute diverticulitis with abscess iv zosyn Status post sigmoid loop colostomy, drainage of pelvic abscess 08/07/25 continue ppn acute hypokalemia Replaced paroxysmal AFib wtih rvr continue digoxin and metoprolol - iv while not taking po holding anticoagulation for surgery chronic diastolic CHF No signs of hypervolemia multiple myeloma with bone Mets oxycodone for pain, outpatient follow up with Dr. Watts hypertension lisinopril hyperlipidemia statin DVT prophylaxis -mechanical due to blood in stool full code reason for continued hospitalization: awaiting return of gi function IV antibiotics Quality Stroke Does the patient have a stroke diagnosis?: No VTE Prior VTE?: No VTE Risk Level:: Medical - moderate - high VTE Device Contraindication: Treatment Not Indicated VTE Drug Contraindication: N/A - Med Ordered
[2025-08-08 12:09] LABS: Glucose, Whole Blood 186 mg/dL (60-115)
--- NOTE | 2025-08-08 15:19 | PM.PNGS ---
Subjective Subjective Date of Service: 08/08/25 Interval history: feeling ok little pain doing some liquids Physical Exam Vital Signs: Vital Signs: Last Vital Signs Temp 98.2 F 08/08/25 12:03 Pulse 97 08/08/25 12:03 Resp 20 08/08/25 12:03 BP 151/89 H 08/08/25 12:03 Pulse Ox 96 08/08/25 12:03 O2 Del Method Room Air 08/08/25 12:03 O2 Flow Rate 6 08/07/25 14:54 BMI result Body Mass Index 22.7 Const: General: cooperative, healthy appearing and comfortable GI: Other: abdomen soft tender at incision 0- ostomy looks a little edematous mild dusky but good - putting out serosanguinous fluid ralph drain serosanguinous fluid too Objective Data Active Medications Atorvastatin Calcium (Atorvastatin Calcium 10 Mg Tablet) 10 mg PO BEDTIME [facility] Last Admin: 08/07/25 22:10 Dose: 10 mg Documented By: TRISHA Calcium Carbonate (Calcium Carbonate 750 Mg Tab.Chew) 750 mg PO Q4H PRN PRN Reason: Heartburn Dextrose (Dextrose 50 % 25 Gm/50 Ml Syringe) 25 gm IVPUSH Q15M PRN; Protocol PRN Reason: per Hypoglycemia Standing Ord. Dextrose (Dextrose 50 % 25 Gm/50 Ml Syringe) 25 gm IVPUSH Q15M PRN; Protocol PRN Reason: per Hypoglycemia Standing Ord. Digoxin (Digoxin 0.125 Mg Tablet) 0.125 mg PO DAILY [facility]; Protocol Last Admin: 08/08/25 08:26 Dose: 0.125 mg Documented By: MONISHA Enoxaparin Sodium (Enoxaparin Sodium 60 Mg/0.6 Ml Syringe) 60 mg SUBCUT Q12H [facility] On Hold: 08/04/25 15:19 Last Admin: 08/04/25 09:13 Dose: 60 mg Documented By: BURXiao Glucose (Glucose Gel 15 Gm Gel..Gram.) 15 gm PO Q15M PRN; Protocol PRN Reason: per Hypoglycemia Standing Ord. Glucose (Glucose Gel 15 Gm Gel..Gram.) 15 gm PO Q15M PRN; Protocol PRN Reason: per Hypoglycemia Standing Ord. Piperacillin Sod/Tazobactam (Sod 3.375 gm/ Sodium Chloride) 50 mls @ 100 mls/hr IV Q6H [facility] Last Infusion: 08/08/25 11:59 Dose: Infused Documented By: MONISHA Acetaminophen (Ofirmev) 1,000 mg in 100 mls @ 400 mls/hr IV Q6H [facility] Last Admin: 08/08/25 14:25 Dose: Not Given Documented By: MONISHA Non-Admin Reason: exceeds max dose Nutrition (Parenteral) (Parenteral Nutrition) 1,800 mls @ 75 mls/hr IV .Q24H [facility]; Protocol Stop: 08/08/25 20:59 Last Infusion: 08/08/25 11:30 Dose: 75 mls/hr Documented By: MONISHA Nutrition (Parenteral) (Parenteral Nutrition) 2,160 mls @ 90 mls/hr IV .Q24H [facility]; Protocol Stop: 08/09/25 20:59 Insulin Human Lispro (Insulin Lispro 100 Unit/Ml 3 Ml Vial) 0 unit SUBCUT QIDACHS [facility]; Protocol Last Admin: 08/08/25 12:14 Dose: 2 unit Documented By: MONISHA Magnesium Hydroxide (Milk Of Magnesia 30 Ml Oral.Susp) 30 ml PO DAILY PRN PRN Reason: Constipation Last Admin: 08/03/25 07:47 Dose: 30 ml Documented By: ERICH Melatonin (Melatonin 3 Mg Tablet) 6 mg PO BEDTIME PRN PRN Reason: Insomnia Metoclopramide HCl (Metoclopramide Hcl 10 Mg/2 Ml Vial) 5 mg IVPUSH Q6H PRN PRN Reason: Nausea and Vomiting Last Admin: 08/06/25 11:24 Dose: 5 mg Documented By: WALTER Metoprolol Succinate (Metoprolol Succinate Er 50 Mg Tab.Er.24h) 50 mg PO BID [facility]; Protocol Last Admin: 08/08/25 08:26 Dose: 50 mg Documented By: MONISHA Metoprolol Tartrate (Metoprolol Tartrate 5 Mg/5 Ml Vial) 5 mg IVPUSH Q6H PRN; Protocol PRN Reason: HR>90 Last Admin: 08/07/25 09:29 Dose: 5 mg Documented By: WALTER Morphine Sulfate (Morphine Sulfate 4 Mg/Ml Cartridge) 3 mg IVPUSH Q3H PRN; Protocol PRN Reason: Pain, Severe (Pain Scale 7-10) Last Admin: 08/08/25 10:36 Dose: 3 mg Documented By: MONISHA Omeprazole (Omeprazole 20 Mg Capsule.Dr) 20 mg PO DAILY@0630 [facility] Last Admin: 08/08/25 05:55 Dose: 20 mg Documented By: TRISHA Ondansetron HCl (Ondansetron Hcl 4 Mg/2 Ml Vial) 4 mg IVPUSH Q8H PRN PRN Reason: Nausea and Vomiting Last Admin: 08/06/25 08:13 Dose: 4 mg Documented By: WALTER Pharmacy Consult (Consult Rx Parenteral Nutrition Ordering) 1 each MISCELLANE DAILY PRN PRN Reason: Consult order Polyethylene Glycol (Polyethylene Glycol 3350 17 Gm Powd.Pack) 17 gm PO DAILY [facility] Last Admin: 08/08/25 08:26 Dose: 17 gm Documented By: MONISHA Sodium Chloride (0.9 % Sodium Chloride Flush 3 Ml Syringe) 3 ml IVFLUSH QSHIFT [facility] Last Admin: 08/08/25 14:25 Dose: 3 ml Documented By: MONISHA Labs 08/08/25 06:46 08/08/25 06:46 Labs: Laboratory Results - last 24 hr 08/07/25 08/07/25 08/08/25 15:50 20:21 06:46 MCV 96.9 D MCH 31.0 MCHC 32.0 RDW 15.1 Plt Count 254 MPV 10.8 Immature Gran % (Auto) 0.9 H Neut % (Auto) 87.5 H Lymph % (Auto) 4.8 L [place] % (Auto) 6.3 Eos % (Auto) 0.0 Baso % (Auto) 0.5 Lymph # (Auto) 0.6 L [place] # (Auto) 0.7 Eos # (Auto) 0.0 Baso # (Auto) 0.1 Abs Immat Gran (auto) 0.10 H Absolute Neuts (auto) 10.2 H Absolute Nucleated RBC 0.000 Nucleated RBC % (auto) 0.0 Smear Tech's Comments VERIFIED Anion Gap 13 Estim Creat Clear Calc 81.9 Estimated GFR > 60 POC Glucose 157 H 199 H Random Glucose 213 H Estimat Average Glucose 131 Hemoglobin A1c % 6.2 H Calcium 7.4 L Phosphorus 2.0 L Magnesium 2.6 Total Bilirubin 0.8 AST 27 ALT 7 Alkaline Phosphatase 62 Total Protein 5.4 L Albumin 3.1 L Triglycerides 64 08/08/25 08/08/25 08:04 12:02 MCV MCH MCHC RDW Plt Count MPV Immature Gran % (Auto) Neut % (Auto) Lymph % (Auto) [place] % (Auto) Eos % (Auto) Baso % (Auto) Lymph # (Auto) [place] # (Auto) Eos # (Auto) Baso # (Auto) Abs Immat Gran (auto) Absolute Neuts (auto) Absolute Nucleated RBC Nucleated RBC % (auto) Smear Tech's Comments Anion Gap Estim Creat Clear Calc Estimated GFR POC Glucose 210 H 186 H Random Glucose Estimat Average Glucose Hemoglobin A1c % Calcium Phosphorus Magnesium Total Bilirubin AST ALT Alkaline Phosphatase Total Protein Albumin Triglycerides Procedures Date of Service Date of Service: 08/08/25 Progress Note: A&P Assessment and plan (1) Diverticulitis of intestine with abscess: Status: Acute Assessment and Plan: pt POD#1 s/p diverting loop colostomy - doing well- cont with slow advancement of po liquids and tomorrow oob and ambulate a bit. ralph drain to continue - not purulent - cont with iv antibx - cont with tpn for now Time Spent With Patient Time: Total time managing care of this patient today ____ minutes. Quality Stroke Does the patient have a stroke diagnosis?: No VTE Prior VTE?: No VTE Risk Level:: Medical - moderate - high VTE Device Contraindication: Treatment Not Indicated VTE Drug Contraindication: N/A - Med Ordered
[2025-08-08 15:39] LABS: Glucose, Whole Blood 191 mg/dL (60-115)
--- NOTE | 2025-08-08 17:17 | PC.NURSE ---
Pt up to edge of bed today.. Pain reasonably but not completely controlled with morphine. She does not think IV tylenol has been helpful. She prefers warm packs to ice packs. Ostomy is putting out dark red fluid. ANNIKA bulb draining sero-sanguinous fluid. She reports abdominal pain, cramping when she drinks fluids. She's had some stool out per rectum, incontinent.
[2025-08-08 20:57] LABS: Glucose, Whole Blood 99 mg/dL (60-115)
[2025-08-08] MEDS: Parenteral Nutrition 2,160 ML 90 ML IV (21:54)
[2025-08-09] VITALS (9 sets, daily range): BP systolic 118–171; BP diastolic 65–91; PULSE 82–119; RESP 16–22; TEMP 36.4–36.8; O2SAT 94–98
[2025-08-09 07:12] LABS: Hematocrit 36.1 % (37.0-47.0); Hemoglobin 12.0 g/dl (12.0-16.0); Mean Corpuscular HGB Conc 33.2 g/dl (31.0-35.0); Mean Corpuscular Hemoglobin 30.8 pg (27.0-33.0); Mean Corpuscular Volume 92.8 fL (80.0-98.0); NRBC Abs Auto 0.000 X10*3/uL (0.0-0.012); NRBC Pct Auto 0.0 /100WBC (0.0-0.2); Platelet Count 269 X10*3/uL (160-400); Red Blood Count 3.89 X10*6/uL (4.20-5.50); White Blood Count 14.4 X10*3/uL (4.8-10.8)
[2025-08-09 07:24] LABS: Glucose, Whole Blood 172 mg/dL (60-115)
[2025-08-09 07:29] LABS: Alanine Aminotransferase 9 U/L (0-31); Albumin Level 2.9 g/dL (3.5-5.0); Alkaline Phosphatase 81 U/L (39-117); Anion Gap 9 (12-20); Aspartate Amino Transferase 19 U/L (5-31); Blood Urea Nitrogen 16 mg/dL (9-16); Calcium 7.5 mg/dL (8.4-10.2); Carbon Dioxide 24 mmol/L (22-29); Chloride 102 mmol/L (96-108); Creatinine Clr Calc Pharmacy 72.6; Estimated Glomerular Filt Rate > 60; Magnesium 2.2 mg/dL (1.6-2.6); Potassium 4.2 mmol/L (3.3-5.1); Sodium 131 mmol/L (135-145); Total Protein 5.2 g/dL (6.5-8.0)
--- NOTE | 2025-08-09 07:38 | HO.POSTANES ---
Post Anesthesia Evaluation Post Anesthesia Evaluation Date of Service: 08/08/25 Vital Signs: Vital Signs Temp Pulse Resp BP Pulse Ox O2 Del Method 08/09/25 07:17 97.5 F 88 18 145/82 H 94 Room Air 08/09/25 03:20 97.9 F 82 18 118/81 94 Room Air 08/09/25 00:00 98.2 F 85 18 125/83 96 Room Air 08/08/25 20:26 70 18 Anesthesia: General Endotracheal-GETA Mental Status: Awake Pain Control: Satisfactory Nausea/Vomiting: None Hydration: Adequate Anesthesia-Related Issues: No Anes. Related Issues
[2025-08-09] MEDS: 0.9 % Sodium Chloride Flush 3 ML SYRINGE IVFLUSH ×3 (08:44→22:04)
[2025-08-09] MEDS: Metoprolol Succinate ER 50 MG TAB.ER.24H PO ×2 (08:54→21:22)
--- NOTE | 2025-08-09 10:18 | P.PNIM_ITS ---
Subjective Subjective Date of Service: 08/09/25 Interval History: surgical site pain Physical Exam 2 Vital Signs: Vital Signs: Last Vital Signs Temp 97.5 F 08/09/25 07:17 Pulse 105 H 08/09/25 08:54 Resp 18 08/09/25 07:17 BP 145/82 H 08/09/25 07:17 Pulse Ox 94 08/09/25 07:17 O2 Del Method Room Air 08/09/25 07:17 O2 Flow Rate 6 08/07/25 14:54 BMI result Body Mass Index 22.7 Const: General: cooperative, healthy appearing and comfortable GI: Other: abdomen soft tender at incision 0- ostomy looks a little edematous mild dusky but good - putting out serosanguinous fluid ralph drain serosanguinous fluid too Objective Data Active Medications Atorvastatin Calcium (Atorvastatin Calcium 10 Mg Tablet) 10 mg PO BEDTIME [facility] Last Admin: 08/08/25 19:51 Dose: 10 mg Documented By: TRISHA Calcium Carbonate (Calcium Carbonate 750 Mg Tab.Chew) 750 mg PO Q4H PRN PRN Reason: Heartburn Dextrose (Dextrose 50 % 25 Gm/50 Ml Syringe) 25 gm IVPUSH Q15M PRN; Protocol PRN Reason: per Hypoglycemia Standing Ord. Dextrose (Dextrose 50 % 25 Gm/50 Ml Syringe) 25 gm IVPUSH Q15M PRN; Protocol PRN Reason: per Hypoglycemia Standing Ord. Digoxin (Digoxin 0.125 Mg Tablet) 0.125 mg PO DAILY [facility]; Protocol Last Admin: 08/09/25 08:43 Dose: 0.125 mg Documented By: MONISHA Enoxaparin Sodium (Enoxaparin Sodium 60 Mg/0.6 Ml Syringe) 60 mg SUBCUT Q12H [facility] On Hold: 08/04/25 15:19 Last Admin: 08/04/25 09:13 Dose: 60 mg Documented By: BURXiao Glucose (Glucose Gel 15 Gm Gel..Gram.) 15 gm PO Q15M PRN; Protocol PRN Reason: per Hypoglycemia Standing Ord. Glucose (Glucose Gel 15 Gm Gel..Gram.) 15 gm PO Q15M PRN; Protocol PRN Reason: per Hypoglycemia Standing Ord. Piperacillin Sod/Tazobactam (Sod 3.375 gm/ Sodium Chloride) 50 mls @ 100 mls/hr IV Q6H [facility] Last Infusion: 08/09/25 05:38 Dose: Infused Documented By: TRISHA Acetaminophen ([facility]) 1,000 mg in 100 mls @ 400 mls/hr IV Q6H [facility] Last Admin: 08/09/25 08:45 Dose: 400 mls/hr Documented By: MONISHA Nutrition (Parenteral) (Parenteral Nutrition) 2,160 mls @ 90 mls/hr IV .Q24H [facility]; Protocol Stop: 08/09/25 20:59 Last Admin: 08/08/25 21:54 Dose: 90 mls/hr Documented By: TRISHA Nutrition (Parenteral) (Parenteral Nutrition) 2,160 mls @ 90 mls/hr IV .Q24H [facility]; Protocol Stop: 08/10/25 20:59 Insulin Human Lispro (Insulin Lispro 100 Unit/Ml 3 Ml Vial) 0 unit SUBCUT QIDACHS [facility]; Protocol Last Admin: 08/09/25 08:45 Dose: 2 unit Documented By: MONISHA Magnesium Hydroxide (Milk Of Magnesia 30 Ml Oral.Susp) 30 ml PO DAILY PRN PRN Reason: Constipation Last Admin: 08/03/25 07:47 Dose: 30 ml Documented By: ERICH Melatonin (Melatonin 3 Mg Tablet) 6 mg PO BEDTIME PRN PRN Reason: Insomnia Metoclopramide HCl (Metoclopramide Hcl 10 Mg/2 Ml Vial) 5 mg IVPUSH Q6H PRN PRN Reason: Nausea and Vomiting Last Admin: 08/06/25 11:24 Dose: 5 mg Documented By: WALTER Metoprolol Succinate (Metoprolol Succinate Er 50 Mg Tab.Er.24h) 50 mg PO BID [facility]; Protocol Last Admin: 08/09/25 08:54 Dose: 50 mg Documented By: MONISHA Metoprolol Tartrate (Metoprolol Tartrate 5 Mg/5 Ml Vial) 5 mg IVPUSH Q6H PRN; Protocol PRN Reason: HR>90 Last Admin: 08/07/25 09:29 Dose: 5 mg Documented By: WALTER Morphine Sulfate (Morphine Sulfate 4 Mg/Ml Cartridge) 3 mg IVPUSH Q3H PRN; Protocol PRN Reason: Pain, Severe (Pain Scale 7-10) Last Admin: 08/09/25 08:43 Dose: 3 mg Documented By: MONISHA Omeprazole (Omeprazole 20 Mg Capsule.) 20 mg PO DAILY@0630 [facility] Last Admin: 08/09/25 05:43 Dose: 20 mg Documented By: TRISHA Ondansetron HCl (Ondansetron Hcl 4 Mg/2 Ml Vial) 4 mg IVPUSH Q8H PRN PRN Reason: Nausea and Vomiting Last Admin: 08/06/25 08:13 Dose: 4 mg Documented By: WALTER Pharmacy Consult (Consult Rx Parenteral Nutrition Ordering) 1 each MISCELLANE DAILY PRN PRN Reason: Consult order Polyethylene Glycol (Polyethylene Glycol 3350 17 Gm Powd.Pack) 17 gm PO DAILY [facility] Last Admin: 08/09/25 08:43 Dose: 17 gm Documented By: MONISHA Sodium Chloride (0.9 % Sodium Chloride Flush 3 Ml Syringe) 3 ml IVFLUSH QSHIFT [facility] Last Admin: 08/09/25 08:44 Dose: 3 ml Documented By: MONISHA Labs 08/09/25 07:00 08/09/25 07:00 Labs: Laboratory Results - last 24 hr 08/08/25 08/08/25 08/08/25 12:02 15:35 20:53 MCV MCH MCHC RDW Plt Count MPV Absolute Nucleated RBC Nucleated RBC % (auto) Anion Gap Estim Creat Clear Calc Estimated GFR POC Glucose 186 H 191 H 99 Random Glucose Calcium Phosphorus Magnesium Total Bilirubin AST ALT Alkaline Phosphatase Total Protein Albumin 08/09/25 08/09/25 07:00 07:14 MCV 92.8 MCH 30.8 MCHC 33.2 RDW 14.6 Plt Count 269 MPV 10.5 Absolute Nucleated RBC 0.000 Nucleated RBC % (auto) 0.0 Anion Gap 9 L Estim Creat Clear Calc 72.6 Estimated GFR > 60 POC Glucose 172 H Random Glucose 185 H Calcium 7.5 L Phosphorus 2.1 L Magnesium 2.2 Total Bilirubin 0.5 AST 19 ALT 9 Alkaline Phosphatase 81 Total Protein 5.2 L Albumin 2.9 L Assessment and Plan (1) Paroxysmal atrial fibrillation: Status: Acute Plan 84F PMH pafib on eliquis, multiple myeloma with bone mets, DM, hld, presented with abdominal pain, found to have acute diverticulitis with abscess acute diverticulitis with abscess iv zosyn Status post sigmoid loop colostomy, drainage of pelvic abscess 08/07/25 continue ppn acute hypokalemia Replaced paroxysmal AFib wtih rvr continue digoxin and metoprolol - iv while not taking po holding anticoagulation for surgery chronic diastolic CHF No signs of hypervolemia multiple myeloma with bone Mets oxycodone for pain, outpatient follow up with Dr. Watts hypertension lisinopril hyperlipidemia statin DVT prophylaxis -mechanical due to blood in stool full code reason for continued hospitalization: awaiting return of gi function IV antibiotics Quality Stroke Does the patient have a stroke diagnosis?: No VTE Prior VTE?: No VTE Risk Level:: Medical - moderate - high VTE Device Contraindication: Treatment Not Indicated VTE Drug Contraindication: N/A - Med Ordered
[2025-08-09 11:02] LABS: Glucose, Whole Blood 186 mg/dL (60-115)
--- NOTE | 2025-08-09 15:00 | P.PNGS_ITS ---
Subjective Subjective Date of Service: 08/09/25 Interval history: tolerating liquids feeling crampy - gas in bag and some liquid stool ralph drain serous Physical Exam 2 Vital Signs: Vital Signs: Last Vital Signs Temp 97.5 F 08/09/25 15:00 Pulse 98 08/09/25 15:00 Resp 18 08/09/25 15:00 BP 127/65 08/09/25 15:00 Pulse Ox 96 08/09/25 15:00 O2 Del Method Room Air 08/09/25 15:00 O2 Flow Rate 6 08/07/25 14:54 BMI result Body Mass Index 22.7 GI: Other: soft nondistended incisions good mild diffuse tenderness Objective Data Active Medications Atorvastatin Calcium (Atorvastatin Calcium 10 Mg Tablet) 10 mg PO BEDTIME [facility] Last Admin: 08/08/25 19:51 Dose: 10 mg Documented By: TRISHA Calcium Carbonate (Calcium Carbonate 750 Mg Tab.Chew) 750 mg PO Q4H PRN PRN Reason: Heartburn Dextrose (Dextrose 50 % 25 Gm/50 Ml Syringe) 25 gm IVPUSH Q15M PRN; Protocol PRN Reason: per Hypoglycemia Standing Ord. Dextrose (Dextrose 50 % 25 Gm/50 Ml Syringe) 25 gm IVPUSH Q15M PRN; Protocol PRN Reason: per Hypoglycemia Standing Ord. Digoxin (Digoxin 0.125 Mg Tablet) 0.125 mg PO DAILY [facility]; Protocol Last Admin: 08/09/25 08:43 Dose: 0.125 mg Documented By: MONISHA Enoxaparin Sodium (Enoxaparin Sodium 60 Mg/0.6 Ml Syringe) 60 mg SUBCUT Q12H [facility] On Hold: 08/04/25 15:19 Last Admin: 08/04/25 09:13 Dose: 60 mg Documented By: BURXiao Glucose (Glucose Gel 15 Gm Gel..Gram.) 15 gm PO Q15M PRN; Protocol PRN Reason: per Hypoglycemia Standing Ord. Glucose (Glucose Gel 15 Gm Gel..Gram.) 15 gm PO Q15M PRN; Protocol PRN Reason: per Hypoglycemia Standing Ord. Piperacillin Sod/Tazobactam (Sod 3.375 gm/ Sodium Chloride) 50 mls @ 100 mls/hr IV Q6H [facility] Last Infusion: 08/09/25 14:36 Dose: Infused Documented By: MONISHA Nutrition (Parenteral) (Parenteral Nutrition) 2,160 mls @ 90 mls/hr IV .Q24H [facility]; Protocol Stop: 08/09/25 20:59 Last Admin: 08/08/25 21:54 Dose: 90 mls/hr Documented By: TRISHA Nutrition (Parenteral) (Parenteral Nutrition) 2,160 mls @ 90 mls/hr IV .Q24H [facility]; Protocol Stop: 08/10/25 20:59 Insulin Human Lispro (Insulin Lispro 100 Unit/Ml 3 Ml Vial) 0 unit SUBCUT QIDACHS [facility]; Protocol Last Admin: 08/09/25 11:52 Dose: 2 unit Documented By: MONISHA Magnesium Hydroxide (Milk Of Magnesia 30 Ml Oral.Susp) 30 ml PO DAILY PRN PRN Reason: Constipation Last Admin: 08/03/25 07:47 Dose: 30 ml Documented By: ERICH Melatonin (Melatonin 3 Mg Tablet) 6 mg PO BEDTIME PRN PRN Reason: Insomnia Metoclopramide HCl (Metoclopramide Hcl 10 Mg/2 Ml Vial) 5 mg IVPUSH Q6H PRN PRN Reason: Nausea and Vomiting Last Admin: 08/06/25 11:24 Dose: 5 mg Documented By: WALTER Metoprolol Succinate (Metoprolol Succinate Er 50 Mg Tab.Er.24h) 50 mg PO BID [facility]; Protocol Last Admin: 08/09/25 08:54 Dose: 50 mg Documented By: MONISHA Metoprolol Tartrate (Metoprolol Tartrate 5 Mg/5 Ml Vial) 5 mg IVPUSH Q6H PRN; Protocol PRN Reason: HR>90 Last Admin: 08/07/25 09:29 Dose: 5 mg Documented By: WALTER Morphine Sulfate (Morphine Sulfate 4 Mg/Ml Cartridge) 3 mg IVPUSH Q3H PRN; Protocol PRN Reason: Pain, Severe (Pain Scale 7-10) Last Admin: 08/09/25 13:38 Dose: 3 mg Documented By: MONISHA Omeprazole (Omeprazole 20 Mg Capsule.) 20 mg PO DAILY@0630 [facility] Last Admin: 08/09/25 05:43 Dose: 20 mg Documented By: TRIHSA Ondansetron HCl (Ondansetron Hcl 4 Mg/2 Ml Vial) 4 mg IVPUSH Q8H PRN PRN Reason: Nausea and Vomiting Last Admin: 08/06/25 08:13 Dose: 4 mg Documented By: WALTER Pharmacy Consult (Consult Rx Parenteral Nutrition Ordering) 1 each MISCELLANE DAILY PRN PRN Reason: Consult order Polyethylene Glycol (Polyethylene Glycol 3350 17 Gm Powd.Pack) 17 gm PO DAILY [facility] Last Admin: 08/09/25 08:43 Dose: 17 gm Documented By: MONISHA Sodium Chloride (0.9 % Sodium Chloride Flush 3 Ml Syringe) 3 ml IVFLUSH QSHIFT [facility] Last Admin: 08/09/25 08:44 Dose: 3 ml Documented By: MONISHA Labs 08/09/25 07:00 08/09/25 07:00 Labs: Laboratory Results - last 24 hr 08/08/25 08/08/25 08/09/25 15:35 20:53 07:00 MCV 92.8 MCH 30.8 MCHC 33.2 RDW 14.6 Plt Count 269 MPV 10.5 Absolute Nucleated RBC 0.000 Nucleated RBC % (auto) 0.0 Anion Gap 9 L Estim Creat Clear Calc 72.6 Estimated GFR > 60 POC Glucose 191 H 99 Random Glucose 185 H Calcium 7.5 L Phosphorus 2.1 L Magnesium 2.2 Total Bilirubin 0.5 AST 19 ALT 9 Alkaline Phosphatase 81 Total Protein 5.2 L Albumin 2.9 L 08/09/25 08/09/25 07:14 10:54 MCV MCH MCHC RDW Plt Count MPV Absolute Nucleated RBC Nucleated RBC % (auto) Anion Gap Estim Creat Clear Calc Estimated GFR POC Glucose 172 H 186 H Random Glucose Calcium Phosphorus Magnesium Total Bilirubin AST ALT Alkaline Phosphatase Total Protein Albumin Procedures Date of Service Date of Service: 08/09/25 Progress Note: A&P Assessment and plan (1) Diverticulitis of intestine with abscess: Status: Acute Assessment and Plan: pod#2 s/p diverting colostomy and abscess drainage doing better - cont with liquids advance later iv antibx - OOB with PT tomorrow. pt asking for one more day with devine in - will dc in am Time Spent With Patient Time: Total time managing care of this patient today ____ minutes. Quality Stroke Does the patient have a stroke diagnosis?: No VTE Prior VTE?: No VTE Risk Level:: Medical - moderate - high VTE Device Contraindication: Treatment Not Indicated VTE Drug Contraindication: N/A - Med Ordered
[2025-08-09 16:02] LABS: Glucose, Whole Blood 169 mg/dL (60-115)
[2025-08-09] MEDS: Parenteral Nutrition 2,160 ML 90 ML IV (21:36)
[2025-08-09 21:41] LABS: Glucose, Whole Blood 152 mg/dL (60-115)
[2025-08-10] VITALS (13 sets, daily range): BP systolic 122–160; BP diastolic 50–96; PULSE 97–134; RESP 14–22; TEMP 36.9–37.4; O2SAT 95–141
[2025-08-10 07:03] LABS: Glucose, Whole Blood 171 mg/dL (60-115)
[2025-08-10 07:56] LABS: Alanine Aminotransferase 9 U/L (0-31); Albumin Level 3.2 g/dL (3.5-5.0); Alkaline Phosphatase 89 U/L (39-117); Anion Gap 13 (12-20); Aspartate Amino Transferase 18 U/L (5-31); Blood Urea Nitrogen 16 mg/dL (9-16); Calcium 8.0 mg/dL (8.4-10.2); Carbon Dioxide 23 mmol/L (22-29); Chloride 101 mmol/L (96-108); Creatinine Clr Calc Pharmacy 76.9; Estimated Glomerular Filt Rate > 60; Magnesium 2.1 mg/dL (1.6-2.6); Potassium 4.6 mmol/L (3.3-5.1); Sodium 132 mmol/L (135-145); Total Protein 5.9 g/dL (6.5-8.0)
--- NOTE | 2025-08-10 08:02 | P.PNGS_ITS ---
Subjective Subjective Date of Service: 08/10/25 <Char Durand PA-C - Last Filed: 08/10/25 08:06> 08/10/25 <Roosevelt Beebe MD - Last Filed: 08/10/25 08:10> Interval history: No events over the weekend. had a difficult night and was not able to sleep much. Requiring IV morphine for pain still. Reports occasional nausea and feels bloated. Was not OOB yet but did dangle legs on side of bed over the weekend. <Char Durand PA-C - Last Filed: 08/10/25 08:06> Physical Exam 2 Vital Signs: Vital Signs: Last Vital Signs Temp 98.6 F 08/10/25 07:33 Pulse 109 H 08/10/25 07:33 Resp 18 08/10/25 07:33 BP 151/96 H 08/10/25 07:33 Pulse Ox 97 08/10/25 07:33 O2 Del Method Room Air 08/10/25 07:33 O2 Flow Rate 6 08/07/25 14:54 BMI result Body Mass Index 22.7 <Char Durand PA-C - Last Filed: 08/10/25 08:06> Const: General: comfortable, no acute distress and alert <DANIEL Laughlin Last Filed: 08/10/25 08:06> Orientation/consciousness: patient oriented x3 <DANIEL Laughlin Last Filed: 08/10/25 08:06> Resp: Effort & Inspection: normal respiratory effort and able to speak in complete sentences <Char Durand PA-C - Last Filed: 08/10/25 08:06> GI: Other: ralph drain with serosanguineous output ostomy dusky appearing but centrally pink, liquid stool in appliance <DANIEL Laughlin Last Filed: 08/10/25 08:06> Inspection: Yes distended and Yes incision (clean, radha intact) <DANIEL Laughlin Last Filed: 08/10/25 08:06> Palpation (GI): Soft to palpation, Tenderness to palpation present (GI) (mild incisional), no guarding and not rigid <Char Durand PA-C - Last Filed: 08/10/25 08:06> Percussion: Yes tympanic to percussion <Char Durand PA-C - Last Filed: 08/10/25 08:06> : Other: devine in place, straw colored clear urine <Char Durand PA-C - Last Filed: 08/10/25 08:06> Skin: General skin exam: no rashes or lesions noted <Char Durand PA-C - Last Filed: 08/10/25 08:06> Neuro: General: patient oriented x3 <Char Durand PA-C - Last Filed: 08/10/25 08:06> Objective Data Active Medications Atorvastatin Calcium (Atorvastatin Calcium 10 Mg Tablet) 10 mg PO BEDTIME [facility] Last Admin: 08/09/25 21:23 Dose: Not Given Documented By: WILL Non-Admin Reason: Patient Refused Calcium Carbonate (Calcium Carbonate 750 Mg Tab.Chew) 750 mg PO Q4H PRN PRN Reason: Heartburn Dextrose (Dextrose 50 % 25 Gm/50 Ml Syringe) 25 gm IVPUSH Q15M PRN; Protocol PRN Reason: per Hypoglycemia Standing Ord. Dextrose (Dextrose 50 % 25 Gm/50 Ml Syringe) 25 gm IVPUSH Q15M PRN; Protocol PRN Reason: per Hypoglycemia Standing Ord. Digoxin (Digoxin 0.125 Mg Tablet) 0.125 mg PO DAILY [facility]; Protocol Last Admin: 08/09/25 08:43 Dose: 0.125 mg Documented By: MONISHA Enoxaparin Sodium (Enoxaparin Sodium 60 Mg/0.6 Ml Syringe) 60 mg SUBCUT Q12H [facility] On Hold: 08/04/25 15:19 Last Admin: 08/04/25 09:13 Dose: 60 mg Documented By: GA Glucose (Glucose Gel 15 Gm Gel..Gram.) 15 gm PO Q15M PRN; Protocol PRN Reason: per Hypoglycemia Standing Ord. Glucose (Glucose Gel 15 Gm Gel..Gram.) 15 gm PO Q15M PRN; Protocol PRN Reason: per Hypoglycemia Standing Ord. Piperacillin Sod/Tazobactam (Sod 3.375 gm/ Sodium Chloride) 50 mls @ 100 mls/hr IV Q6H [facility] Last Infusion: 08/10/25 04:56 Dose: Infused Documented By: WILL Nutrition (Parenteral) (Parenteral Nutrition) 2,160 mls @ 90 mls/hr IV .Q24H [facility]; Protocol Stop: 08/10/25 20:59 Last Admin: 08/09/25 21:36 Dose: 90 mls/hr Documented By: WILL Insulin Human Lispro (Insulin Lispro 100 Unit/Ml 3 Ml Vial) 0 unit SUBCUT QIDACHS [facility]; Protocol Last Admin: 08/10/25 07:53 Dose: 2 unit Documented By: MONISHA Magnesium Hydroxide (Milk Of Magnesia 30 Ml Oral.Susp) 30 ml PO DAILY PRN PRN Reason: Constipation Last Admin: 08/03/25 07:47 Dose: 30 ml Documented By: ERICH Melatonin (Melatonin 3 Mg Tablet) 6 mg PO BEDTIME PRN PRN Reason: Insomnia Metoclopramide HCl (Metoclopramide Hcl 10 Mg/2 Ml Vial) 5 mg IVPUSH Q6H PRN PRN Reason: Nausea and Vomiting Last Admin: 08/09/25 21:38 Dose: 5 mg Documented By: WILL Metoprolol Succinate (Metoprolol Succinate Er 50 Mg Tab.Er.24h) 50 mg PO BID [facility]; Protocol Last Admin: 08/09/25 21:22 Dose: 50 mg Documented By: WILL Metoprolol Tartrate (Metoprolol Tartrate 5 Mg/5 Ml Vial) 5 mg IVPUSH Q6H PRN; Protocol PRN Reason: HR>90 Last Admin: 08/10/25 04:11 Dose: 5 mg Documented By: WILL Morphine Sulfate (Morphine Sulfate 4 Mg/Ml Cartridge) 3 mg IVPUSH Q3H PRN; Protocol PRN Reason: Pain, Severe (Pain Scale 7-10) Last Admin: 08/10/25 06:22 Dose: 3 mg Documented By: WILL Omeprazole (Omeprazole 20 Mg Capsule.Dr) 20 mg PO DAILY@0630 [facility] Last Admin: 08/10/25 06:18 Dose: 20 mg Documented By: WILL Ondansetron HCl (Ondansetron Hcl 4 Mg/2 Ml Vial) 4 mg IVPUSH Q8H PRN PRN Reason: Nausea and Vomiting Last Admin: 08/06/25 08:13 Dose: 4 mg Documented By: WALTER Pharmacy Consult (Consult Rx Parenteral Nutrition Ordering) 1 each MISCELLANE DAILY PRN PRN Reason: Consult order Polyethylene Glycol (Polyethylene Glycol 3350 17 Gm Powd.Pack) 17 gm PO DAILY [facility] Last Admin: 08/09/25 08:43 Dose: 17 gm Documented By: MONISHA Sodium Chloride (0.9 % Sodium Chloride Flush 3 Ml Syringe) 3 ml IVFLUSH QSHIFT [facility] Last Admin: 08/09/25 22:04 Dose: 3 ml Documented By: WILL <Char Durand PA-C - Last Filed: 08/10/25 08:06> Labs CBC & Chem 7: 08/09/25 07:00 08/10/25 07:10 <Char Durand PA-C - Last Filed: 08/10/25 08:06> Labs: Laboratory Results - last 24 hr 08/09/25 08/09/25 08/09/25 10:54 15:58 21:32 Anion Gap Estim Creat Clear Calc Estimated GFR POC Glucose 186 H 169 H 152 H Random Glucose Calcium Phosphorus Magnesium Total Bilirubin AST ALT Alkaline Phosphatase Total Protein Albumin 08/10/25 08/10/25 06:58 07:10 Anion Gap 13 Estim Creat Clear Calc 76.9 Estimated GFR > 60 POC Glucose 171 H Random Glucose 158 H Calcium 8.0 L D Phosphorus 2.4 L Magnesium 2.1 Total Bilirubin 0.5 AST 18 ALT 9 Alkaline Phosphatase 89 Total Protein 5.9 L Albumin 3.2 L <Char Durand PA-C - Last Filed: 08/10/25 08:06> Procedures Date of Service Date of Service: 08/10/25 <Char Durand PA-C - Last Filed: 08/10/25 08:06> 08/10/25 <Roosevelt Beebe MD - Last Filed: 08/10/25 08:10> Progress Note: A&P Assessment and plan (1) Diverticulitis of intestine with abscess: Status: Acute <Char Durand PA-C - Last Filed: 08/10/25 08:06> (2) S/P colostomy: Status: Acute <Char Durand PA-C - Last Filed: 08/10/25 08:06> Assessment and Plan: sore on incision still with a occasional nausea although she says this is better compared to last stoma with good output abdomen is soft incision clean and dry RALPH drain with clear output on clear liquids, advance when nausea is better out of bed, ambulate DONATO Devine seen and examined independently <Roosevelt Beebe MD - Last Filed: 08/10/25 08:10> Assessment and Plan: POD #3 s/p diverting loop colostomy. Overall doing fairly well post op, ostomy functioning but continues to have nausea, remains distended. Would continue clear liquids for now, encouraged OOB/ambulation and increasing activity today. Has PT consult. Donato devine. Patient comfortable with plan. < Char Durand PA-C - Last Filed: 08/10/25 08:06> Time Spent With Patient Time: Total time managing care of this patient today ____ minutes. <Char Durand PA-C - Last Filed: 08/10/25 08:06> Quality Stroke Does the patient have a stroke diagnosis?: No <Char Durand PA-C - Last Filed: 08/10/25 08:06> VTE Prior VTE?: No <Char Durand PA-C - Last Filed: 08/10/25 08:06> VTE Risk Level:: Medical - moderate - high <DANIEL Laughlin Last Filed: 08/10/25 08:06> VTE Device Contraindication: Treatment Not Indicated <Char Durand PA-C - Last Filed: 08/10/25 08:06> VTE Drug Contraindication: N/A - Med Ordered <DANIEL Laughlin Last Filed: 08/10/25 08:06>
[2025-08-10] MEDS: Metoprolol Succinate ER 50 MG TAB.ER.24H PO ×2 (09:38→20:21)
[2025-08-10] MEDS: 0.9 % Sodium Chloride Flush 3 ML SYRINGE IVFLUSH ×2 (09:39→20:21)
[2025-08-10 10:52] LABS: Glucose, Whole Blood 156 mg/dL (60-115)
--- NOTE | 2025-08-10 10:53 | MHC.CLN ---
F/U PT TRANSFERRED TO 4TH FLOOR CLEAR LIQUID DIET CONTINUES PO INTAKE 50-100%; PT CONTINUES TO C/O NAUSEA REVIEWED LABS -NOTED HYPONATREMIA DISCUSSED WITH PHARMACY RECOMMEND DECREASE PPN TO 75ML/HR WITH 80G LIPIDS TO PROVIDE 1718 TOTAL KCALS (27KCALS/KG), 180G DEXTROSE, 77G PROTEIN (1.2G/KG) REPLETE LYTES NEEDED
--- NOTE | 2025-08-10 12:23 | HO.OSTOMY ---
Ostomy Consult: Initial Teaching 84yr old female admitted to [facility] on 07[place]25 - see H&P for detailed history and admission.? Consult for new ostomy teaching. ?She had a Loop Colostomy creation on 08/07/[address] Beebe. ?Upon entry into patient's room, patient is lying in bed, alert and oriented x 3, currently has complaints of pain 02/24. ?Introductions were completed, she was not agreeable to teaching today. She reports feeling in too much pain and reports feeling tired. ? We discussed pain control at ??610 at the current moment, reports increasing the use of IS and not yet ambulating. ?We discussed the importance of continued IS use and the importance of ambulation. She identified her daughter Katherin to be present for her education as she lives with her daughter and will be helping to care for her. Her daughter was not present at this time. Of note the patient is independent with dialy activities driving and daily walks over 1 mile prior to admission. Patient observed a opening and closing the ostomy pouch. ? We discussed the importance of emptying pouch when 1/3 to 1/2 full, how to empty pouch, and lining water with toilet paper to prevent splash back, and changing the pouch twice a week. While at bedside patient was often closing her eyes and falling into rest - she was easily awoke but not able to maintain longer periods of focus - she repeated her questions. Patient was educated on when to contact chief psychologist/Dr?s office/seek emergency medical treatment. Patient was given some ostomy pouches for transition to home. Aware that Rx written for pouches and rings will be sent by Outpt nurse to [facility] for home delivery.? Written education left with patient for further review. ?Education videos supplied by [facility] were refused at this time - she reports she will watch with her daughter tomorrow. Spoke to her Daughter Katherin on the phone and we agreed for future teaching tomorrow 08/11/25 @12noon. Permission was granted for pouch assessment and silent leak was noted.? Stoma is red moist and round with necrotic edges, clear plastic bridge in place with some redness and irritation noted to the peristomal tissue. Liquid brown stool noted in pouch - patient was able to watch empty, but did not want to watch pouch change. ?Midline incision well approximated radha in place no leaking noted. Coloplast pouch [id number] applied cut to 40mm due to bridge and brave barrier strip paste used under bridge to create a seal. Of note the patients stoma is with in a crease and will likely need convex pouches at time of d/c. Will assess at tomorrow?s teaching. ?Patient reported having no questions at this time. ?Patient was made aware that I will return to bedside later in week for ongoing education. ?Patient will benefit from VNA services at time of discharge. ?All questions and concerns addressed at this time. Next teaching session goals: Demonstrate open and close Stoma model pouch change completed Steps to a pouch change he is able to recall Plan to discuss the following steps: 1. Empty pouch before pouch change 2. Remove pouch using push/pull technique from top to bottom 3. Cleanse stoma and skin with tap water only - no soap or wipes 4. Pat dry 5. Measure stoma and cut new pouch no more than 1/8 inch larger than stoma and no smaller than stoma 6. If instructed by your ostomy nurse stretch barrier seal to the size of the stoma and press onto skin around stoma (up to the edge of the stoma but not onto the stoma) 7. Press the new pouch into place and hold for several seconds (close pouch tail) 8. Empty pouch when 1/3 to 1/2 full 9. Change pouch twice weekly on a schedule (for example, every Sunday and ) and as needed for any leaking (feels like intense itch or burn at edge of stoma) 10. May order pre-cut pouches (already cut to size of stoma) once stoma measures the same size consistently at about 8-12 weeks.
--- NOTE | 2025-08-10 14:36 | PM.EVENT ---
Event Note Date of Service: 08/10/25 Event Note: Seen on afternoon rounds Appears comfortable Admits to incisional pain Stoma continues to have good output I released the stoma bridge Mucosa looks viable Continue pain management Advance diet as tolerated She is continues to have rapid ventricular response periodically with her AFib Rate control Abdomen remained soft and benign Time Spent With Patient Time: Total time managing care of this patient today ____ minutes.
--- NOTE | 2025-08-10 15:02 | MHC.CM.PN ---
Per surgical note, pt. is not ready to DC, on clear liquid diet at this time, CM to follow for DC needs.
--- NOTE | 2025-08-10 15:29 | PC.NURSE ---
Amaral discontinued. Patient has voided at least twice on the bedside commode. Pt has had copious brown, liquid output from ostomy today. About 1200 mls at the time of this note. Pain may have improved somewhat r/t increased output.
[2025-08-10 16:02] LABS: Glucose, Whole Blood 145 mg/dL (60-115)
--- NOTE | 2025-08-10 17:27 | P.PNIM_ITS ---
Subjective Subjective Date of Service: 08/10/25 Interval History: No acute issues overnight. Pain control adequate Review of Systems Denies chest pain Denies shortness of breath Denies nausea vomiting diarrhea Denies fever chills Physical Exam 2 Vital Signs: Vital Signs: Last Vital Signs Temp 99.4 F 08/10/25 15:41 Pulse 110 H 08/10/25 15:41 Resp 18 08/10/25 15:41 BP 145/95 H 08/10/25 15:41 Pulse Ox 95 08/10/25 15:41 O2 Del Method Room Air 08/10/25 15:41 O2 Flow Rate 6 08/07/25 14:54 BMI result Body Mass Index 22.7 Const: Other: Awake alert no acute distress Resp: Other: Clear to auscultation bilaterally no rales rhonchi or wheezes Cardio: Other: No S4; positive S1-S2; no S3 murmurs rubs or gallops GI: Other: Soft nontender nondistended normoactive bowel sounds. Colostomy functional Extrem: Other: No edema bilaterally Objective Data Active Medications Atorvastatin Calcium (Atorvastatin Calcium 10 Mg Tablet) 10 mg PO BEDTIME [facility] Last Admin: 08/09/25 21:23 Dose: Not Given Documented By: WILL Non-Admin Reason: Patient Refused Calcium Carbonate (Calcium Carbonate 750 Mg Tab.Chew) 750 mg PO Q4H PRN PRN Reason: Heartburn Dextrose (Dextrose 50 % 25 Gm/50 Ml Syringe) 25 gm IVPUSH Q15M PRN; Protocol PRN Reason: per Hypoglycemia Standing Ord. Dextrose (Dextrose 50 % 25 Gm/50 Ml Syringe) 25 gm IVPUSH Q15M PRN; Protocol PRN Reason: per Hypoglycemia Standing Ord. Digoxin (Digoxin 0.125 Mg Tablet) 0.125 mg PO DAILY [facility]; Protocol Last Admin: 08/10/25 09:38 Dose: 0.125 mg Documented By: MONISHA Enoxaparin Sodium (Enoxaparin Sodium 60 Mg/0.6 Ml Syringe) 60 mg SUBCUT Q12H [facility] On Hold: 08/04/25 15:19 Last Admin: 08/04/25 09:13 Dose: 60 mg Documented By: GA Glucose (Glucose Gel 15 Gm Gel..Gram.) 15 gm PO Q15M PRN; Protocol PRN Reason: per Hypoglycemia Standing Ord. Glucose (Glucose Gel 15 Gm Gel..Gram.) 15 gm PO Q15M PRN; Protocol PRN Reason: per Hypoglycemia Standing Ord. Heparin Sodium (Porcine) (Heparin Sodium,Porcine 5,000 Unit/Ml Vial) 5,000 unit SUBCUT Q8H [facility] Last Admin: 08/10/25 16:46 Dose: 5,000 unit Documented By: MONISHA Piperacillin Sod/Tazobactam (Sod 3.375 gm/ Sodium Chloride) 50 mls @ 100 mls/hr IV Q6H [facility] Last Admin: 08/10/25 16:38 Dose: 100 mls/hr Documented By: MONISHA Nutrition (Parenteral) (Parenteral Nutrition) 2,160 mls @ 90 mls/hr IV .Q24H [facility]; Protocol Stop: 08/10/25 20:59 Last Admin: 08/09/25 21:36 Dose: 90 mls/hr Documented By: WILL Nutrition (Parenteral) (Parenteral Nutrition) 1,800 mls @ 75 mls/hr IV .Q24H [facility]; Protocol Stop: 08/11/25 20:59 Insulin Human Lispro (Insulin Lispro 100 Unit/Ml 3 Ml Vial) 0 unit SUBCUT QIDACHS [facility]; Protocol Last Admin: 08/10/25 16:44 Dose: Not Given Documented By: MONISHA Non-Admin Reason: No Insulin Coverage Magnesium Hydroxide (Milk Of Magnesia 30 Ml Oral.Susp) 30 ml PO DAILY PRN PRN Reason: Constipation Last Admin: 08/03/25 07:47 Dose: 30 ml Documented By: ERICH Melatonin (Melatonin 3 Mg Tablet) 6 mg PO BEDTIME PRN PRN Reason: Insomnia Metoclopramide HCl (Metoclopramide Hcl 10 Mg/2 Ml Vial) 5 mg IVPUSH Q6H PRN PRN Reason: Nausea and Vomiting Last Admin: 08/09/25 21:38 Dose: 5 mg Documented By: WILL Metoprolol Succinate (Metoprolol Succinate Er 50 Mg Tab.Er.24h) 50 mg PO BID [facility]; Protocol Last Admin: 08/10/25 09:38 Dose: 50 mg Documented By: MONISHA Metoprolol Tartrate (Metoprolol Tartrate 5 Mg/5 Ml Vial) 5 mg IVPUSH Q6H PRN; Protocol PRN Reason: HR>90 Last Admin: 08/10/25 04:11 Dose: 5 mg Documented By: WILL Morphine Sulfate (Morphine Sulfate 4 Mg/Ml Cartridge) 3 mg IVPUSH Q3H PRN; Protocol PRN Reason: Pain, Severe (Pain Scale 7-10) Last Admin: 08/10/25 16:25 Dose: 3 mg Documented By: MONISHA Omeprazole (Omeprazole 20 Mg Capsule.Dr) 20 mg PO DAILY@0630 [facility] Last Admin: 08/10/25 06:18 Dose: 20 mg Documented By: WILL Ondansetron HCl (Ondansetron Hcl 4 Mg/2 Ml Vial) 4 mg IVPUSH Q8H PRN PRN Reason: Nausea and Vomiting Last Admin: 08/10/25 10:30 Dose: 4 mg Documented By: MONISHA Pharmacy Consult (Consult Rx Parenteral Nutrition Ordering) 1 each MISCELLANE DAILY PRN PRN Reason: Consult order Polyethylene Glycol (Polyethylene Glycol 3350 17 Gm Powd.Pack) 17 gm PO DAILY [facility] Last Admin: 08/10/25 10:01 Dose: Not Given Documented By: MONISHA Non-Admin Reason: Patient Refused Sodium Chloride (0.9 % Sodium Chloride Flush 3 Ml Syringe) 3 ml IVFLUSH QSHIFT [facility] Last Admin: 08/10/25 09:39 Dose: 3 ml Documented By: MONISHA Labs 08/09/25 07:00 08/10/25 07:10 Labs: Laboratory Results - last 24 hr 08/09/25 08/10/25 08/10/25 21:32 06:58 07:10 Anion Gap 13 Estim Creat Clear Calc 76.9 Estimated GFR > 60 POC Glucose 152 H 171 H Random Glucose 158 H Calcium 8.0 L D Phosphorus 2.4 L Magnesium 2.1 Total Bilirubin 0.5 AST 18 ALT 9 Alkaline Phosphatase 89 Total Protein 5.9 L Albumin 3.2 L 08/10/25 08/10/25 10:48 15:49 Anion Gap Estim Creat Clear Calc Estimated GFR POC Glucose 156 H 145 H Random Glucose Calcium Phosphorus Magnesium Total Bilirubin AST ALT Alkaline Phosphatase Total Protein Albumin Assessment and Plan (1) Diverticulitis of intestine with abscess: Status: Acute (2) S/P colostomy: Status: Acute (3) Persistent atrial fibrillation: Status: Acute Plan 84F PMH pafib on eliquis, multiple myeloma with bone mets, DM, hld, presented with abdominal pain, found to have acute diverticulitis with abscess 1.Acute diverticulitis with abscess -zosyn(5) -Status post sigmoid loop colostomy, drainage of pelvic abscess 08/07/25...as per surgery -continue ppn as ordered 2.Paroxysmal AFib wtih rvr -continue digoxin/metoprolol - switch to p.o. when appropriate -anticoagulation when appropriate as per surgery surgery 3.Multiple myeloma with bone Mets -stable and well compensated -opiates for pain management -outpatient follow up 4.Hypertension -acceptable control on current therapy -adjust as indicated mechanical due to blood in stool full code reason for continued hospitalization: awaiting return of gi function IV antibiotics Quality Stroke Does the patient have a stroke diagnosis?: No VTE Prior VTE?: No VTE Risk Level:: Medical - moderate - high VTE Device Contraindication: Treatment Not Indicated VTE Drug Contraindication: N/A - Med Ordered
[2025-08-10 20:50] LABS: Glucose, Whole Blood 195 mg/dL (60-115)
[2025-08-10] MEDS: Parenteral Nutrition 1,800 ML 75 ML IV (22:36)
[2025-08-11] VITALS (11 sets, daily range): BP systolic 124–134; BP diastolic 71–85; PULSE 85–130; RESP 14–20; TEMP 36.6–37.6; O2SAT 95–97
[2025-08-11 07:05] LABS: Glucose, Whole Blood 186 mg/dL (60-115)
[2025-08-11 07:27] LABS: Alanine Aminotransferase 10 U/L (0-31); Albumin Level 2.7 g/dL (3.5-5.0); Alkaline Phosphatase 189 U/L (39-117); Anion Gap 9 (12-20); Aspartate Amino Transferase 40 U/L (5-31); Blood Urea Nitrogen 14 mg/dL (9-16); Calcium 8.1 mg/dL (8.4-10.2); Carbon Dioxide 24 mmol/L (22-29); Chloride 100 mmol/L (96-108); Creatinine Clr Calc Pharmacy 89.5; Estimated Glomerular Filt Rate > 60; Magnesium 1.8 mg/dL (1.6-2.6); Potassium 4.2 mmol/L (3.3-5.1); Sodium 129 mmol/L (135-145); Total Protein 5.0 g/dL (6.5-8.0)
[2025-08-11] MEDS: Metoprolol Succinate ER 50 MG TAB.ER.24H PO ×2 (07:52→20:48)
--- NOTE | 2025-08-11 07:53 | PM.PNGS ---
Subjective Subjective Date of Service: 08/11/25 <Char Durand PA-C - Last Filed: 08/11/25 08:11> 08/12/25 <Roosevelt Beebe MD - Last Filed: 08/12/25 08:08> Interval history: Continues with intermittent nausea. Ostomy had significant output yesterday. Was OOB and ambulated to bathroom with PT. Continues to have abdominal pain but improving. <Char Durand PA-C - Last Filed: 08/11/25 08:11> Physical Exam Vital Signs: Vital Signs: Last Vital Signs Temp 99.0 F 08/11/25 07:18 Pulse 96 08/11/25 07:18 Resp 18 08/11/25 07:18 BP 124/77 08/11/25 07:18 Pulse Ox 95 08/11/25 07:18 O2 Del Method Room Air 08/11/25 07:18 O2 Flow Rate 6 08/07/25 14:54 BMI result Body Mass Index 22.7 <Char Durand PA-C - Last Filed: 08/11/25 08:11> Const: General: comfortable, no acute distress and alert; No ill appearing <Char Durand PA-C - Last Filed: 08/11/25 08:11> Orientation/consciousness: patient oriented x3 <Char Durand PA-C - Last Filed: 08/11/25 08:11> Resp: Effort & Inspection: normal respiratory effort and able to speak in complete sentences <Char Durand PA-C - Last Filed: 08/11/25 08:11> GI: Other: less distended, mild incisional tenderness ostomy with moderate amount of liquid stool output, bridge removed incision clean ANNIKA drain serosanguineous <Char Durand PA-C - Last Filed: 08/11/25 08:11> Skin: General skin exam: no rashes or lesions noted <DANIEL Laughlin Last Filed: 08/11/25 08:11> Neuro: General: patient oriented x3 and moves all extremities <DANIEL Laughlin Last Filed: 08/11/25 08:11> Objective Data Active Medications Atorvastatin Calcium (Atorvastatin Calcium 10 Mg Tablet) 10 mg PO BEDTIME [facility] Last Admin: 08/10/25 20:21 Dose: 10 mg Documented By: WILL Calcium Carbonate (Calcium Carbonate 750 Mg Tab.Chew) 750 mg PO Q4H PRN PRN Reason: Heartburn Dextrose (Dextrose 50 % 25 Gm/50 Ml Syringe) 25 gm IVPUSH Q15M PRN; Protocol PRN Reason: per Hypoglycemia Standing Ord. Dextrose (Dextrose 50 % 25 Gm/50 Ml Syringe) 25 gm IVPUSH Q15M PRN; Protocol PRN Reason: per Hypoglycemia Standing Ord. Digoxin (Digoxin 0.125 Mg Tablet) 0.125 mg PO DAILY [facility]; Protocol Last Admin: 08/10/25 09:38 Dose: 0.125 mg Documented By: MONISHA Enoxaparin Sodium (Enoxaparin Sodium 60 Mg/0.6 Ml Syringe) 60 mg SUBCUT Q12H [facility] On Hold: 08/04/25 15:19 Last Admin: 08/04/25 09:13 Dose: 60 mg Documented By: GA Glucose (Glucose Gel 15 Gm Gel..Gram.) 15 gm PO Q15M PRN; Protocol PRN Reason: per Hypoglycemia Standing Ord. Glucose (Glucose Gel 15 Gm Gel..Gram.) 15 gm PO Q15M PRN; Protocol PRN Reason: per Hypoglycemia Standing Ord. Heparin Sodium (Porcine) (Heparin Sodium,Porcine 5,000 Unit/Ml Vial) 5,000 unit SUBCUT Q8H [facility] Last Admin: 08/10/25 23:52 Dose: 5,000 unit Documented By: WILL Piperacillin Sod/Tazobactam (Sod 3.375 gm/ Sodium Chloride) 50 mls @ 100 mls/hr IV Q6H [facility] Last Infusion: 08/11/25 05:24 Dose: Infused Documented By: WILL Nutrition (Parenteral) (Parenteral Nutrition) 1,800 mls @ 75 mls/hr IV .Q24H [facility]; Protocol Stop: 08/11/25 20:59 Last Admin: 08/10/25 22:36 Dose: 75 mls/hr Documented By: WILL Insulin Human Lispro (Insulin Lispro 100 Unit/Ml 3 Ml Vial) 0 unit SUBCUT QIDACHS [facility]; Protocol Last Admin: 08/10/25 22:57 Dose: 2 unit Documented By: WILL Magnesium Hydroxide (Milk Of Magnesia 30 Ml Oral.Susp) 30 ml PO DAILY PRN PRN Reason: Constipation Last Admin: 08/03/25 07:47 Dose: 30 ml Documented By: ERICH Melatonin (Melatonin 3 Mg Tablet) 6 mg PO BEDTIME PRN PRN Reason: Insomnia Metoclopramide HCl (Metoclopramide Hcl 10 Mg/2 Ml Vial) 5 mg IVPUSH Q6H PRN PRN Reason: Nausea and Vomiting Last Admin: 08/10/25 20:21 Dose: 5 mg Documented By: WILL Metoprolol Succinate (Metoprolol Succinate Er 50 Mg Tab.Er.24h) 50 mg PO BID [facility]; Protocol Last Admin: 08/10/25 20:21 Dose: 50 mg Documented By: WILL Metoprolol Tartrate (Metoprolol Tartrate 5 Mg/5 Ml Vial) 5 mg IVPUSH Q6H PRN; Protocol PRN Reason: HR>90 Last Admin: 08/10/25 04:11 Dose: 5 mg Documented By: WILL Morphine Sulfate (Morphine Sulfate 4 Mg/Ml Cartridge) 3 mg IVPUSH Q3H PRN; Protocol PRN Reason: Pain, Severe (Pain Scale 7-10) Last Admin: 08/11/25 05:16 Dose: 3 mg Documented By: WILL Omeprazole (Omeprazole 20 Mg Capsule.Dr) 20 mg PO DAILY@0630 [facility] Last Admin: 08/11/25 05:16 Dose: 20 mg Documented By: WILL Ondansetron HCl (Ondansetron Hcl 4 Mg/2 Ml Vial) 4 mg IVPUSH Q8H PRN PRN Reason: Nausea and Vomiting Last Admin: 08/10/25 10:30 Dose: 4 mg Documented By: MONISHA Pharmacy Consult (Consult Rx Parenteral Nutrition Ordering) 1 each MISCELLANE DAILY PRN PRN Reason: Consult order Polyethylene Glycol (Polyethylene Glycol 3350 17 Gm Powd.Pack) 17 gm PO DAILY [facility] Last Admin: 08/10/25 10:01 Dose: Not Given Documented By: MONISHA Non-Admin Reason: Patient Refused Sodium Chloride (0.9 % Sodium Chloride Flush 3 Ml Syringe) [address] [facility] Last Admin: 08/10/25 20:21 Dose: 3 ml Documented By: WILL <Char Durand PA-C - Last Filed: 08/11/25 08:11> Labs CBC & Chem 7: 08/09/25 07:00 08/12/25 06:27 <Char Durand PA-C - Last Filed: 08/11/25 08:11> Labs: Laboratory Results - last 24 hr 08/10/25 08/10/25 08/10/25 07:10 10:48 15:49 Hold Purple Top Anion Gap 13 Estim Creat Clear Calc 76.9 Estimated GFR > 60 POC Glucose 156 H 145 H Random Glucose 158 H Calcium 8.0 L D Phosphorus 2.4 L Magnesium 2.1 Total Bilirubin 0.5 AST 18 ALT 9 Alkaline Phosphatase 89 Total Protein 5.9 L Albumin 3.2 L 08/10/25 08/11/25 08/11/25 20:42 06:42 07:00 Hold Purple Top SEE NOTE Anion Gap 9 L Estim Creat Clear Calc 89.5 Estimated GFR > 60 POC Glucose 195 H 186 H Random Glucose 181 H Calcium 8.1 L Phosphorus 3.1 Magnesium 1.8 Total Bilirubin 0.7 AST 40 H ALT 10 Alkaline Phosphatase 189 H Total Protein 5.0 L Albumin 2.7 L <Char Durand PA-C - Last Filed: 08/11/25 08:11> Procedures Date of Service Date of Service: 08/11/25 <Char Durand PA-C - Last Filed: 08/11/25 08:11> 08/12/25 <Roosevelt Beebe MD - Last Filed: 08/12/25 08:08> Progress Note: A&P Assessment and plan (1) Diverticulitis of intestine with abscess: Status: Acute <Char Durand PA-C - Last Filed: 08/11/25 08:11> Assessment and Plan: Stoma functioning well, with good output of gas and stools She does admit to incisional pain Tolerating liquids Abdomen is soft and benign Midline incision clean and dry ANNIKA drain serosanguineous Diet as tolerated Encouraged ambulation Pain control Looks well overall Seen and examined independently Discussed with daughter Katherin <Roosevelt Beebe MD - Last Filed: 08/12/25 08:08> Assessment and Plan: POD #4 s/p diverting loop colostomy. Overall doing fairly well post op, ostomy functioning with high output yesterday but has intermittent nausea. Distention improved. Will advance to full liquids in hopes to bulk up the stool and slow the output. Cont peripheral nutrition until oral intake increaased. Follow electrolytes. Encouraged OOB/ambulation and increasing activity today, PT. Patient comfortable with plan. ANNIKA drain serosanguineous, will remove drain later today. <Char Durand PA-C - Last Filed: 08/11/25 08:11> Time Spent With Patient Time: Total time managing care of this patient today ____ minutes. <Char Durand PA-C - Last Filed: 08/11/25 08:11> Quality Stroke Does the patient have a stroke diagnosis?: No <DANIEL Laughlin Last Filed: 08/11/25 08:11> VTE Prior VTE?: No <Char Durand PA-C - Last Filed: 08/11/25 08:11> VTE Risk Level:: Medical - moderate - high <DANIEL Laughlin Last Filed: 08/11/25 08:11> VTE Device Contraindication: Treatment Not Indicated <DANIEL Laughlin Last Filed: 08/11/25 08:11> VTE Drug Contraindication: N/A - Med Ordered <DANIEL Laughlin Last Filed: 08/11/25 08:11>
[2025-08-11] MEDS: 0.9 % Sodium Chloride Flush 3 ML SYRINGE IVFLUSH ×2 (07:55→16:53)
--- NOTE | 2025-08-11 10:30 | MHC.CLN ---
F/U ADVANCEDD TO FULL LIQUID PO INTAKE 50-75% PT CONTINUES TO C/O NAUSEA REVIEWED LABS -NOTED HYPONATREMIA CONTINUES DISCUSSED WITH PHARMACY RECOMMEND DECREASE PPN TO 65ML/HR WITH 20G LIPIDS TO PROVIDE 996 TOTAL KCALS, 156G DEXTROSE, 66G PROTEIN, 1560ML TOTAL VOLUME (24ML/KG IBW) PPN PROVIDES 50% OF ESTIMATED NEEDS REPLETE LYTES NEEDED MONITOR PO INTAKE CLOSELY
[2025-08-11 10:57] LABS: Glucose, Whole Blood 204 mg/dL (60-115)
--- NOTE | 2025-08-11 12:42 | MHC.CM.PN ---
CM met with pt. and her dtr to discuss DCP, they would like pt. to go home to her dtr's home, where she has been staying, and [facility]. She is active with this [facility] already, update sent via [email or web address].
--- NOTE | 2025-08-11 12:53 | HO.OSTOMY ---
Ostomy Consult: I Follow up Teaching 84yr old [place] [facility] [place] see H&P for detailed history and admission.? Consult for new ostomy teaching. ?She had a Loop Colostomy creation on 08/07/[address] Beebe. ?Upon entry into patient's room, patient is lying in bed, alert and oriented x 3, currently has complaints of pain 5/10. ?Introductions were completed, she was agreeable to teaching today daughter and grandson were present for teaching. Her duaghter reports she segundo be caring for her mother stoma until she is ready to. Together we discussed ostomy basics and colostomy care. We preformed a stoma model together and provided a demonstration on an open close. We discussed the importance of emptying pouch when 1/3 to 1/2 full, how to empty pouch, and lining water with toilet paper to prevent splash back, and changing the pouch twice a week. Patient and family were educated on when to contact glove brusher/Dr?s office/seek emergency medical treatment. Patient was given some ostomy pouches for transition to home. Aware that Rx written for pouches and rings will be sent by Outpt nurse to [place] for home delivery.? Written education left with patient for further review. ?Education videos supplied by [facility] were refused at this time - she reports she will watch with her daughter at a future date. Permission was granted for pouch assessment no leak noted - liquid brown stool in pouch. No need for change at this time. Bridge noted to be out and in the pouch. Of note the patients stoma is with in a crease and will likely need convex pouches at time of d/c. Will assess at tomorrow?s teaching. ?Patient reported having no questions at this time. ?Patient was made aware that I will return to bedside later in week for ongoing education. ?Patient will benefit from VNA services at time of discharge. ?All questions and concerns addressed at this time. 08/10/25 Next teaching session goals: Demonstrate open and close Steps to a pouch change they are able to recall Plan to discuss the following steps: 1. Empty pouch before pouch change 2. Remove pouch using push/pull technique from top to bottom 3. Cleanse stoma and skin with tap water only - no soap or wipes 4. Pat dry 5. Measure stoma and cut new pouch no more than 1/8 inch larger than stoma and no smaller than stoma 6. If instructed by your ostomy nurse stretch barrier seal to the size of the stoma and press onto skin around stoma (up to the edge of the stoma but not onto the stoma) 7. Press the new pouch into place and hold for several seconds (close pouch tail) 8. Empty pouch when 1/3 to 1/2 full 9. Change pouch twice weekly on a schedule (for example, every Sunday and ) and as needed for any leaking (feels like intense itch or burn at edge of stoma) 10. May order pre-cut pouches (already cut to size of stoma) once stoma measures the same size consistently at about 8-12 weeks.
--- NOTE | 2025-08-11 14:50 | P.PNIM_ITS ---
Subjective Subjective Date of Service: 08/11/25 Interval History: Tolerated small amounts of full liquids overnight. Minimal GI discomfort Review of Systems Denies chest pain Denies shortness of breath Denies nausea vomiting diarrhea Denies fever chills Physical Exam 2 Vital Signs: Vital Signs: Last Vital Signs Temp 98.2 F 08/11/25 10:57 Pulse 88 08/11/25 10:57 Resp 18 08/11/25 10:57 BP 129/85 08/11/25 10:57 Pulse Ox 97 08/11/25 10:57 O2 Del Method Room Air 08/11/25 10:57 O2 Flow Rate 6 08/07/25 14:54 BMI result Body Mass Index 22.7 Const: Other: Awake alert no acute distress Resp: Other: Clear to auscultation bilaterally no rales rhonchi or wheezes Cardio: Other: No S4; positive S1-S2; no S3 murmurs rubs or gallops GI: Other: Soft nontender nondistended normoactive bowel sounds. Colostomy functional Extrem: Other: No edema bilaterally Objective Data Active Medications Atorvastatin Calcium (Atorvastatin Calcium 10 Mg Tablet) 10 mg PO BEDTIME [facility] Last Admin: 08/10/25 20:21 Dose: 10 mg Documented By: WILL Calcium Carbonate (Calcium Carbonate 750 Mg Tab.Chew) 750 mg PO Q4H PRN PRN Reason: Heartburn Dextrose (Dextrose 50 % 25 Gm/50 Ml Syringe) 25 gm IVPUSH Q15M PRN; Protocol PRN Reason: per Hypoglycemia Standing Ord. Dextrose (Dextrose 50 % 25 Gm/50 Ml Syringe) 25 gm IVPUSH Q15M PRN; Protocol PRN Reason: per Hypoglycemia Standing Ord. Digoxin (Digoxin 0.125 Mg Tablet) 0.125 mg PO DAILY [facility]; Protocol Last Admin: 08/11/25 07:53 Dose: 0.125 mg Documented By: ROCÍO Enoxaparin Sodium (Enoxaparin Sodium 60 Mg/0.6 Ml Syringe) 60 mg SUBCUT Q12H [facility] On Hold: 08/04/25 15:19 Last Admin: 08/04/25 09:13 Dose: 60 mg Documented By: BURXiao Glucose (Glucose Gel 15 Gm Gel..Gram.) 15 gm PO Q15M PRN; Protocol PRN Reason: per Hypoglycemia Standing Ord. Glucose (Glucose Gel 15 Gm Gel..Gram.) 15 gm PO Q15M PRN; Protocol PRN Reason: per Hypoglycemia Standing Ord. Heparin Sodium (Porcine) (Heparin Sodium,Porcine 5,000 Unit/Ml Vial) 5,000 unit SUBCUT Q8H [facility] Last Admin: 08/11/25 07:54 Dose: 5,000 unit Documented By: ROCÍO Piperacillin Sod/Tazobactam (Sod 3.375 gm/ Sodium Chloride) 50 mls @ 100 mls/hr IV Q6H [facility] Last Infusion: 08/11/25 13:18 Dose: Infused Documented By: ROCÍO Nutrition (Parenteral) (Parenteral Nutrition) 1,800 mls @ 75 mls/hr IV .Q24H [facility]; Protocol Stop: 08/11/25 20:59 Last Admin: 08/10/25 22:36 Dose: 75 mls/hr Documented By: WILL Nutrition (Parenteral) (Parenteral Nutrition) 1,560 mls @ 65 mls/hr IV .Q24H [facility]; Protocol Stop: 08/12/25 20:59 Insulin Human Lispro (Insulin Lispro 100 Unit/Ml 3 Ml Vial) 0 unit SUBCUT QIDACHS [facility]; Protocol Last Admin: 08/11/25 12:10 Dose: 4 unit Documented By: ROCÍO Magnesium Hydroxide (Milk Of Magnesia 30 Ml Oral.Susp) 30 ml PO DAILY PRN PRN Reason: Constipation Last Admin: 08/03/25 07:47 Dose: 30 ml Documented By: ERICH Melatonin (Melatonin 3 Mg Tablet) 6 mg PO BEDTIME PRN PRN Reason: Insomnia Metoclopramide HCl (Metoclopramide Hcl 10 Mg/2 Ml Vial) 5 mg IVPUSH Q6H PRN PRN Reason: Nausea and Vomiting Last Admin: 08/10/25 20:21 Dose: 5 mg Documented By: WILL Metoprolol Succinate (Metoprolol Succinate Er 50 Mg Tab.Er.24h) 50 mg PO BID [facility]; Protocol Last Admin: 08/11/25 07:52 Dose: 50 mg Documented By: ROCÍO Metoprolol Tartrate (Metoprolol Tartrate 5 Mg/5 Ml Vial) 5 mg IVPUSH Q6H PRN; Protocol PRN Reason: HR>90 Last Admin: 08/10/25 04:11 Dose: 5 mg Documented By: WILL Morphine Sulfate (Morphine Sulfate 4 Mg/Ml Cartridge) 3 mg IVPUSH Q3H PRN; Protocol PRN Reason: Pain, Severe (Pain Scale 7-10) Last Admin: 08/11/25 08:53 Dose: 3 mg Documented By: ROCÍO Omeprazole (Omeprazole 20 Mg Capsule.Dr) 20 mg PO DAILY@0630 [facility] Last Admin: 08/11/25 05:16 Dose: 20 mg Documented By: WILL Ondansetron HCl (Ondansetron Hcl 4 Mg/2 Ml Vial) 4 mg IVPUSH Q8H PRN PRN Reason: Nausea and Vomiting Last Admin: 08/11/25 07:55 Dose: 4 mg Documented By: ROCÍO Pharmacy Consult (Consult Rx Parenteral Nutrition Ordering) 1 each MISCELLANE DAILY PRN PRN Reason: Consult order Polyethylene Glycol (Polyethylene Glycol 3350 17 Gm Powd.Pack) 17 gm PO DAILY [facility] Last Admin: 08/11/25 07:56 Dose: Not Given Documented By: ROCÍO Non-Admin Reason: Patient Refused Sodium Chloride (0.9 % Sodium Chloride Flush 3 Ml Syringe) 3 ml IVFLUSH QSHIFT [facility] Last Admin: 08/11/25 07:55 Dose: 3 ml Documented By: ROCÍO Labs 08/09/25 07:00 08/11/25 06:42 Labs: Laboratory Results - last 24 hr 08/10/25 08/10/25 08/11/25 15:49 20:42 06:42 Hold Purple Top SEE NOTE Anion Gap 9 L Estim Creat Clear Calc 89.5 Estimated GFR > 60 POC Glucose 145 H 195 H Random Glucose 181 H Calcium 8.1 L Phosphorus 3.1 Magnesium 1.8 Total Bilirubin 0.7 AST 40 H ALT 10 Alkaline Phosphatase 189 H Total Protein 5.0 L Albumin 2.7 L 08/11/25 08/11/25 07:00 10:53 Hold Purple Top Anion Gap Estim Creat Clear Calc Estimated GFR POC Glucose 186 H 204 H Random Glucose Calcium Phosphorus Magnesium Total Bilirubin AST ALT Alkaline Phosphatase Total Protein Albumin Assessment and Plan (1) Diverticulitis of intestine with abscess: Status: Acute (2) S/P colostomy: Status: Acute Plan 84F PMH pafib on eliquis, multiple myeloma with bone mets, DM, hld, presented with abdominal pain, found to have acute diverticulitis with abscess 1.Acute diverticulitis with abscess -zosyn(6) -Status post sigmoid loop colostomy, drainage of pelvic abscess 08/07/25...as per surgery -continue ppn as ordered 2.Paroxysmal AFib wtih rvr -continue digoxin/metoprolol - switch to p.o. when appropriate -anticoagulation when appropriate as per surgery surgery 3.Multiple myeloma with bone Mets -stable and well compensated -opiates for pain management -outpatient follow up 4.Hypertension -acceptable control on current therapy -adjust as indicated mechanical due to blood in stool full code reason for continued hospitalization: awaiting return of gi function IV antibiotics Quality Stroke Does the patient have a stroke diagnosis?: No VTE Prior VTE?: No VTE Risk Level:: Medical - moderate - high VTE Device Contraindication: Treatment Not Indicated VTE Drug Contraindication: N/A - Med Ordered
[2025-08-11 16:16] LABS: Glucose, Whole Blood 157 mg/dL (60-115)
[2025-08-11 21:12] LABS: Glucose, Whole Blood 115 mg/dL (60-115)
[2025-08-11] MEDS: Parenteral Nutrition 1,560 ML 65 ML IV (21:45)
[2025-08-12] VITALS (10 sets, daily range): BP systolic 114–136; BP diastolic 69–96; PULSE 82–126; RESP 16–18; TEMP 36.4–37.2; O2SAT 95–97
[2025-08-12 07:00] LABS: Glucose, Whole Blood 149 mg/dL (60-115)
[2025-08-12 07:07] LABS: Alanine Aminotransferase 20 U/L (0-31); Albumin Level 2.5 g/dL (3.5-5.0); Alkaline Phosphatase 179 U/L (39-117); Anion Gap 10 (12-20); Aspartate Amino Transferase 39 U/L (5-31); Blood Urea Nitrogen 15 mg/dL (9-16); Calcium 7.9 mg/dL (8.4-10.2); Carbon Dioxide 25 mmol/L (22-29); Chloride 100 mmol/L (96-108); Creatinine Clr Calc Pharmacy 89.5; Estimated Glomerular Filt Rate > 60; Magnesium 1.8 mg/dL (1.6-2.6); Potassium 3.6 mmol/L (3.3-5.1); Sodium 131 mmol/L (135-145); Total Protein 4.9 g/dL (6.5-8.0)
[2025-08-12] MEDS: Metoprolol Succinate ER 50 MG TAB.ER.24H PO ×2 (07:39→21:16)
--- NOTE | 2025-08-12 08:09 | P.PNGS_ITS ---
Subjective Subjective Date of Service: 08/12/25 Interval history: Says she is ?okay? Admits to nausea with oral intake, no vomiting Stoma functioning well with good output Physical Exam 2 Vital Signs: Vital Signs: Last Vital Signs Temp 99.0 F 08/12/25 07:22 Pulse 101 H 08/12/25 07:22 Resp 18 08/12/25 07:22 BP 136/96 H 08/12/25 07:22 Pulse Ox 97 08/12/25 07:22 O2 Del Method Room Air 08/12/25 07:22 O2 Flow Rate 6 08/07/25 14:54 BMI result Body Mass Index 22.7 Const: General: comfortable and no acute distress Resp: Effort & Inspection: normal respiratory effort Cardio: Rhythm: abnormal rhythm GI: Other: Stoma with good output with stool and gas, Palpation (GI): Soft to palpation, not firm, nontender and no guarding Objective Data Active Medications Atorvastatin Calcium (Atorvastatin Calcium 10 Mg Tablet) 10 mg PO BEDTIME [facility] Last Admin: 08/11/25 20:48 Dose: 10 mg Documented By: KIERAN Calcium Carbonate (Calcium Carbonate 750 Mg Tab.Chew) 750 mg PO Q4H PRN PRN Reason: Heartburn Dextrose (Dextrose 50 % 25 Gm/50 Ml Syringe) 25 gm IVPUSH Q15M PRN; Protocol PRN Reason: per Hypoglycemia Standing Ord. Dextrose (Dextrose 50 % 25 Gm/50 Ml Syringe) 25 gm IVPUSH Q15M PRN; Protocol PRN Reason: per Hypoglycemia Standing Ord. Digoxin (Digoxin 0.125 Mg Tablet) 0.125 mg PO DAILY [facility]; Protocol Last Admin: 08/12/25 07:39 Dose: 0.125 mg Documented By: LETY Enoxaparin Sodium (Enoxaparin Sodium 60 Mg/0.6 Ml Syringe) 60 mg SUBCUT Q12H [facility] On Hold: 08/04/25 15:19 Last Admin: 08/04/25 09:13 Dose: 60 mg Documented By: GA Glucose (Glucose Gel 15 Gm Gel..Gram.) 15 gm PO Q15M PRN; Protocol PRN Reason: per Hypoglycemia Standing Ord. Glucose (Glucose Gel 15 Gm Gel..Gram.) 15 gm PO Q15M PRN; Protocol PRN Reason: per Hypoglycemia Standing Ord. Heparin Sodium (Porcine) (Heparin Sodium,Porcine 5,000 Unit/Ml Vial) 5,000 unit SUBCUT Q8H [facility] Last Admin: 08/12/25 07:39 Dose: 5,000 unit Documented By: LETY Piperacillin Sod/Tazobactam (Sod 3.375 gm/ Sodium Chloride) 50 mls @ 100 mls/hr IV Q6H [facility] Last Infusion: 08/12/25 04:54 Dose: Infused Documented By: KIERAN Nutrition (Parenteral) (Parenteral Nutrition) 1,560 mls @ 65 mls/hr IV .Q24H [facility]; Protocol Stop: 08/12/25 20:59 Last Admin: 08/11/25 21:45 Dose: 65 mls/hr Documented By: KIERAN Insulin Human Lispro (Insulin Lispro 100 Unit/Ml 3 Ml Vial) 0 unit SUBCUT QIDACHS [facility]; Protocol Last Admin: 08/12/25 07:29 Dose: Not Given Documented By: LETY Non-Admin Reason: No Insulin Coverage Magnesium Hydroxide (Milk Of Magnesia 30 Ml Oral.Susp) 30 ml PO DAILY PRN PRN Reason: Constipation Last Admin: 08/03/25 07:47 Dose: 30 ml Documented By: ERICH Melatonin (Melatonin 3 Mg Tablet) 6 mg PO BEDTIME PRN PRN Reason: Insomnia Metoclopramide HCl (Metoclopramide Hcl 10 Mg/2 Ml Vial) 5 mg IVPUSH Q6H PRN PRN Reason: Nausea and Vomiting Last Admin: 08/10/25 20:21 Dose: 5 mg Documented By: WILL Metoprolol Succinate (Metoprolol Succinate Er 50 Mg Tab.Er.24h) 50 mg PO BID [facility]; Protocol Last Admin: 08/12/25 07:39 Dose: 50 mg Documented By: LETY Metoprolol Tartrate (Metoprolol Tartrate 5 Mg/5 Ml Vial) 5 mg IVPUSH Q6H PRN; Protocol PRN Reason: HR>90 Last Admin: 08/11/25 22:41 Dose: 5 mg Documented By: KIERAN Morphine Sulfate (Morphine Sulfate 4 Mg/Ml Cartridge) 3 mg IVPUSH Q3H PRN; Protocol PRN Reason: Pain, Severe (Pain Scale 7-10) Last Admin: 08/12/25 04:30 Dose: 3 mg Documented By: KIERAN Omeprazole (Omeprazole 20 Mg Capsule.) 20 mg PO DAILY@0630 [facility] Last Admin: 08/12/25 05:07 Dose: 20 mg Documented By: KIERAN Ondansetron HCl (Ondansetron Hcl 4 Mg/2 Ml Vial) 4 mg IVPUSH Q8H PRN PRN Reason: Nausea and Vomiting Last Admin: 08/12/25 05:07 Dose: 4 mg Documented By: KIERAN Pharmacy Consult (Consult Rx Parenteral Nutrition Ordering) 1 each MISCELLANE DAILY PRN PRN Reason: Consult order Polyethylene Glycol (Polyethylene Glycol 3350 17 Gm Powd.Pack) 17 gm PO DAILY [facility] Last Admin: 08/12/25 07:54 Dose: Not Given Documented By: LETY Non-Admin Reason: watery stool Sodium Chloride (0.9 % Sodium Chloride Flush 3 Ml Syringe) 3 ml IVFLUSH QSHIFT [facility] Last Admin: 08/12/25 07:40 Dose: Not Given Documented By: LETY Non-Admin Reason: IV Running Labs 08/09/25 07:00 08/12/25 06:27 Labs: Laboratory Results - last 24 hr 08/11/25 08/11/25 08/11/25 10:53 16:10 21:04 Hold Purple Top Anion Gap Estim Creat Clear Calc Estimated GFR POC Glucose 204 H 157 H 115 Random Glucose Calcium Phosphorus Magnesium Total Bilirubin AST ALT Alkaline Phosphatase Total Protein Albumin 08/12/25 08/12/25 06:27 06:56 Hold Purple Top SEE NOTE Anion Gap 10 L Estim Creat Clear Calc 89.5 Estimated GFR > 60 POC Glucose 149 H Random Glucose 151 H Calcium 7.9 L Phosphorus 3.0 Magnesium 1.8 Total Bilirubin 0.6 AST 39 H ALT 20 Alkaline Phosphatase 179 H Total Protein 4.9 L Albumin 2.5 L Procedures Date of Service Date of Service: 08/12/25 Progress Note: A&P Assessment and plan (1) Diverticulitis of intestine with abscess: Status: Acute Assessment and Plan: Loop colostomy functioning well ANNIKA drain scanty serosanguineous Abdomen is soft, benign We will add simethicone for crampy pain - it appears she does have component of colitis in the left colon and sigmoid Plan to DC ANNIKA drain later on Ambulate Daughter had stoma education yesterday with nurse Encouraged oral intake Looks well overall Physical therapy Stoma care Time Spent With Patient Time: Total time managing care of this patient today ____ minutes. Quality Stroke Does the patient have a stroke diagnosis?: No VTE Prior VTE?: No VTE Risk Level:: Medical - moderate - high VTE Device Contraindication: Treatment Not Indicated VTE Drug Contraindication: N/A - Med Ordered
[2025-08-12 10:52] LABS: Glucose, Whole Blood 174 mg/dL (60-115)
--- NOTE | 2025-08-12 10:56 | MHC.CLN ---
F/U FULL LIQUID DIET PO INTAKE 50% PT CONTINUES TO C/O NAUSEA REVIEWED LABS -NOTED HYPONATREMIA SLIGHTLY IMPROVED DISCUSSED WITH PHARMACY CONTINUE PPN AT 65ML/HR WITH 20G LIPIDS PROVIDES 996 TOTAL KCALS, 156G DEXTROSE, 66G PROTEIN, 1560ML TOTAL VOLUME (24ML/KG IBW) PPN PROVIDES 50% OF ESTIMATED NEEDS REPLETE LYTES NEEDED MONITOR PO INTAKE CLOSELY RD CAN BE REACHED VIA TIGER CONNECT DURING OFF HOURS IF NEEDED
--- NOTE | 2025-08-12 13:33 | HO.WOUND ---
Ostomy Consult: Follow up Teaching 84yr old female admitted to [facility] on 07/28/25 - see H&P for detailed history and admission.? Consult for new ostomy teaching. ?She had a Loop Colostomy creation on 08/07/[address] Beebe. ?Upon entry into patient's room, patient is sitting in recliner, alert and oriented x 3, currently has complaints of pain 5/10. ?Introductions were completed, she was agreeable to teaching today daughter was present for teaching. Her daughter reports she will be caring for her mothers stoma until she is ready to. Together we discussed ostomy basics and colostomy care. Patient performed an open and close on an empty pouch. We discussed the importance of emptying pouch when 1/3 to 1/2 full, how to empty pouch, and lining water with toilet paper to prevent splash back, and changing the pouch twice a week. Patient and family were educated on when to contact distribution estimator/Dr?s office/seek emergency medical treatment. Patient was given some ostomy pouches for transition to home. Aware that Rx written for pouches and rings will be sent by Outpt nurse to [facility] for home delivery.? Written education left with patient for further review. ?Education videos supplied by [facility] were left with daughter and patient. upon return, they had watched some videos, patient reports she was tired and stopped. Explained how to obtain videos with educational booklet and QR codes. Permission was granted for pouch assessment no leak noted - liquid brown stool in pouch. Pouch changed performed with daughter - actively engaged and asking appropriate questions. Bridge noted to be out and in the pouch. Of note the patients stoma is with in a crease and was placed in a convex pouch with barrier ring. Es stomal skin with redness, left side greater, extending to left abdomen/flank, (Dr beebe and dr delgado made aware). Small area of yellow nonviable tissue noted at edge of MCJ. Patient reported having no questions at this time. ?Patient was made aware that I will return to bedside later in week for ongoing education. ?Patient will benefit from VNA services at time of discharge. ?All questions and concerns addressed at this time. 08/10/25 08/12/25 left side/flank Next teaching session goals: Demonstrate open and close Steps to a pouch change they are able to recall Plan to discuss the following steps: 1. Empty pouch before pouch change 2. Remove pouch using push/pull technique from top to bottom 3. Cleanse stoma and skin with tap water only - no soap or wipes 4. Pat dry 5. Measure stoma and cut new pouch no more than 1/8 inch larger than stoma and no smaller than stoma 6. If instructed by your ostomy nurse stretch barrier seal to the size of the stoma and press onto skin around stoma (up to the edge of the stoma but not onto the stoma) 7. Press the new pouch into place and hold for several seconds (close pouch tail) 8. Empty pouch when 1/3 to 1/2 full 9. Change pouch twice weekly on a schedule (for example, every Sunday and ) and as needed for any leaking (feels like intense itch or burn at edge of stoma) 10. May order pre-cut pouches (already cut to size of stoma) once stoma measures the same size consistently at about 8-12 weeks.
--- NOTE | 2025-08-12 13:51 | HO.OSTOMY ---
Ostomy Consult: Follow up Teaching 84yr old female admitted to [facility] on 07/28/25 - see H&P for detailed history and admission.? Consult for new ostomy teaching. ?She had a Loop Colostomy creation on 08/07/[address] Beebe. ?Upon entry into patient's room, patient is sitting in recliner, alert and oriented x 3, currently has complaints of pain 5/10. ?Introductions were completed, she was agreeable to teaching today daughter was present for teaching. Her daughter reports she will be caring for her mothers stoma until she is ready to. Together we discussed ostomy basics and colostomy care. Patient performed an open and close on an empty pouch. We discussed the importance of emptying pouch when 1/3 to 1/2 full, how to empty pouch, and lining water with toilet paper to prevent splash back, and changing the pouch twice a week. Patient and family were educated on when to contact breast splitter/Dr?s office/seek emergency medical treatment. Patient was given some ostomy pouches for transition to home. Aware that Rx written for pouches and rings will be sent by Outpt nurse to [facility] for home delivery.? Written education left with patient for further review. ?Education videos supplied by [facility] were left with daughter and patient. upon return, they had watched some videos, patient reports she was tired and stopped. Explained how to obtain videos with educational booklet and QR codes. Permission was granted for pouch assessment no leak noted - liquid brown stool in pouch. Pouch changed performed with daughter - actively engaged and asking appropriate questions. Bridge noted to be out and in the pouch. Of note the patients stoma is with in a crease and was placed in a convex pouch with barrier ring. Es stomal skin with redness, left side greater, extending to left abdomen/flank, (Dr beebe and dr delgado made aware). Small area of yellow nonviable tissue noted at edge of MCJ. Patient reported having no questions at this time. ?Patient was made aware that I will return to bedside later in week for ongoing education. ?Patient will benefit from VNA services at time of discharge. ?All questions and concerns addressed at this time. 08/10/25 08/12/25 left side/flank Next teaching session goals: Demonstrate open and close Steps to a pouch change they are able to recall Plan to discuss the following steps: 1. Empty pouch before pouch change 2. Remove pouch using push/pull technique from top to bottom 3. Cleanse stoma and skin with tap water only - no soap or wipes 4. Pat dry 5. Measure stoma and cut new pouch no more than 1/8 inch larger than stoma and no smaller than stoma 6. If instructed by your ostomy nurse stretch barrier seal to the size of the stoma and press onto skin around stoma (up to the edge of the stoma but not onto the stoma) 7. Press the new pouch into place and hold for several seconds (close pouch tail) 8. Empty pouch when 1/3 to 1/2 full 9. Change pouch twice weekly on a schedule (for example, every Sunday and ) and as needed for any leaking (feels like intense itch or burn at edge of stoma) 10. May order pre-cut pouches (already cut to size of stoma) once stoma measures the same size consistently at about 8-12 weeks.
--- NOTE | 2025-08-12 13:54 | MHC.CM.PN ---
Per rounds, pt. is not ready to DC, she requires continued acute care for IV ABX and returning GI function. CM to follow for DC needs.
--- NOTE | 2025-08-12 14:21 | P.EN_ITS ---
Event Note Date of Service: 08/12/25 Event Note: Seen on afternoon rounds Ambulated with PT earlier Had stoma care education Tolerating oral intake ANNIKA drain with a little bit of murky output so I will hold off on removing this for now Mild redness on the skin on the skin fold in the left flank without any indurat ion or tenderness Continue current care Encouraged ambulation and oral intake Plan to DC ANNIKA prior to discharge Time Spent With Patient Time: Total time managing care of this patient today ____ minutes.
[2025-08-12 16:21] LABS: Glucose, Whole Blood 149 mg/dL (60-115)
--- NOTE | 2025-08-12 16:32 | HO.PM.IMPN ---
Subjective Subjective Date of Service: 08/12/25 Interval History: Slowly improving. Tolerating small amounts of orals Review of Systems Denies chest pain Denies shortness of breath Denies nausea vomiting diarrhea Denies fever chills Physical Exam Vital Signs: Vital Signs: Last Vital Signs Temp 97.7 F 08/12/25 15:38 Pulse 99 08/12/25 15:38 Resp 16 08/12/25 15:38 BP 134/69 08/12/25 15:38 Pulse Ox 97 08/12/25 15:38 O2 Del Method Room Air 08/12/25 15:38 O2 Flow Rate 6 08/07/25 14:54 BMI result Body Mass Index 22.7 Const: Other: Awake alert no acute distress Resp: Other: Clear to auscultation bilaterally no rales rhonchi or wheezes Cardio: Other: No S4; positive S1-S2; no S3 murmurs rubs or gallops GI: Other: Soft nontender nondistended normoactive bowel sounds. Colostomy functional Extrem: Other: No edema bilaterally Objective Data Active Medications Atorvastatin Calcium (Atorvastatin Calcium 10 Mg Tablet) 10 mg PO BEDTIME [facility] Last Admin: 08/11/25 20:48 Dose: 10 mg Documented By: KIERAN Calcium Carbonate (Calcium Carbonate 750 Mg Tab.Chew) 750 mg PO Q4H PRN PRN Reason: Heartburn Dextrose (Dextrose 50 % 25 Gm/50 Ml Syringe) 25 gm IVPUSH Q15M PRN; Protocol PRN Reason: per Hypoglycemia Standing Ord. Dextrose (Dextrose 50 % 25 Gm/50 Ml Syringe) 25 gm IVPUSH Q15M PRN; Protocol PRN Reason: per Hypoglycemia Standing Ord. Digoxin (Digoxin 0.125 Mg Tablet) 0.125 mg PO DAILY [facility]; Protocol Last Admin: 08/12/25 07:39 Dose: 0.125 mg Documented By: JOSE ARMANDOTEKBobby Enoxaparin Sodium (Enoxaparin Sodium 60 Mg/0.6 Ml Syringe) 60 mg SUBCUT Q12H [facility] On Hold: 08/04/25 15:19 Last Admin: 08/04/25 09:13 Dose: 60 mg Documented By: BURXiao Glucose (Glucose Gel 15 Gm Gel..Gram.) 15 gm PO Q15M PRN; Protocol PRN Reason: per Hypoglycemia Standing Ord. Glucose (Glucose Gel 15 Gm Gel..Gram.) 15 gm PO Q15M PRN; Protocol PRN Reason: per Hypoglycemia Standing Ord. Heparin Sodium (Porcine) (Heparin Sodium,Porcine 5,000 Unit/Ml Vial) 5,000 unit SUBCUT Q8H [facility] Last Admin: 08/12/25 07:39 Dose: 5,000 unit Documented By: LETY Piperacillin Sod/Tazobactam (Sod 3.375 gm/ Sodium Chloride) 50 mls @ 100 mls/hr IV Q6H [facility] Last Infusion: 08/12/25 15:28 Dose: Infused Documented By: LETY Nutrition (Parenteral) (Parenteral Nutrition) 1,560 mls @ 65 mls/hr IV .Q24H [facility]; Protocol Stop: 08/12/25 20:59 Last Admin: 08/11/25 21:45 Dose: 65 mls/hr Documented By: KIERAN Nutrition (Parenteral) (Parenteral Nutrition) 1,560 mls @ 65 mls/hr IV .Q24H [facility]; Protocol Stop: 08/13/25 20:59 Insulin Human Lispro (Insulin Lispro 100 Unit/Ml 3 Ml Vial) 0 unit SUBCUT QIDACHS [facility]; Protocol Last Admin: 08/12/25 12:46 Dose: 2 unit Documented By: LETY Magnesium Hydroxide (Milk Of Magnesia 30 Ml Oral.Susp) 30 ml PO DAILY PRN PRN Reason: Constipation Last Admin: 08/03/25 07:47 Dose: 30 ml Documented By: ERICH Melatonin (Melatonin 3 Mg Tablet) 6 mg PO BEDTIME PRN PRN Reason: Insomnia Metoclopramide HCl (Metoclopramide Hcl 10 Mg/2 Ml Vial) 5 mg IVPUSH Q6H PRN PRN Reason: Nausea and Vomiting Last Admin: 08/10/25 20:21 Dose: 5 mg Documented By: WILL Metoprolol Succinate (Metoprolol Succinate Er 50 Mg Tab.Er.24h) 50 mg PO BID [facility]; Protocol Last Admin: 08/12/25 07:39 Dose: 50 mg Documented By: LETY Metoprolol Tartrate (Metoprolol Tartrate 5 Mg/5 Ml Vial) 5 mg IVPUSH Q6H PRN; Protocol PRN Reason: HR>90 Last Admin: 08/12/25 09:55 Dose: 5 mg Documented By: LETY Morphine Sulfate (Morphine Sulfate 4 Mg/Ml Cartridge) 3 mg IVPUSH Q3H PRN; Protocol PRN Reason: Pain, Severe (Pain Scale 7-10) Last Admin: 08/12/25 04:30 Dose: 3 mg Documented By: KIERAN Omeprazole (Omeprazole 20 Mg Capsule.Dr) 20 mg PO DAILY@0630 [facility] Last Admin: 08/12/25 05:07 Dose: 20 mg Documented By: KIERAN Ondansetron HCl (Ondansetron Hcl 4 Mg/2 Ml Vial) 4 mg IVPUSH Q8H PRN PRN Reason: Nausea and Vomiting Last Admin: 08/12/25 05:07 Dose: 4 mg Documented By: KIERAN Pharmacy Consult (Consult Rx Parenteral Nutrition Ordering) 1 each MISCELLANE DAILY PRN PRN Reason: Consult order Polyethylene Glycol (Polyethylene Glycol 3350 17 Gm Powd.Pack) 17 gm PO DAILY [facility] Last Admin: 08/12/25 07:54 Dose: Not Given Documented By: LETY Non-Admin Reason: watery stool Sodium Chloride (0.9 % Sodium Chloride Flush 3 Ml Syringe) 3 ml IVFLUSH QSHIFT [facility] Last Admin: 08/12/25 07:40 Dose: Not Given Documented By: LETY Non-Admin Reason: IV Running Labs 08/09/25 07:00 08/12/25 06:27 Labs: Laboratory Results - last 24 hr 08/11/25 08/12/25 08/12/25 21:04 06:27 06:56 Hold Purple Top SEE NOTE Anion Gap 10 L Estim Creat Clear Calc 89.5 Estimated GFR > 60 POC Glucose 115 149 H Random Glucose 151 H Calcium 7.9 L Phosphorus 3.0 Magnesium 1.8 Total Bilirubin 0.6 AST 39 H ALT 20 Alkaline Phosphatase 179 H Total Protein 4.9 L Albumin 2.5 L 08/12/25 08/12/25 10:48 16:08 Hold Purple Top Anion Gap Estim Creat Clear Calc Estimated GFR POC Glucose 174 H 149 H Random Glucose Calcium Phosphorus Magnesium Total Bilirubin AST ALT Alkaline Phosphatase Total Protein Albumin Assessment and Plan (1) Diverticulitis of intestine with abscess: Status: Acute (2) S/P colostomy: Status: Acute Plan 84F PMH pafib on eliquis, multiple myeloma with bone mets, DM, hld, presented with abdominal pain, found to have acute diverticulitis with abscess 1.Acute diverticulitis with abscess -jeanne(7) -Status post sigmoid loop colostomy, drainage of pelvic abscess 08/07/25...as per surgery -continue ppn as ordered 2.Paroxysmal AFib wtih rvr -continue digoxin/metoprolol - switch to p.o. when appropriate -anticoagulation when appropriate as per surgery surgery 3.Multiple myeloma with bone Mets -stable and well compensated -opiates for pain management -outpatient follow up 4.Hypertension -acceptable control on current therapy -adjust as indicated mechanical due to blood in stool full code reason for continued hospitalization: awaiting return of gi function IV antibiotics Quality Stroke Does the patient have a stroke diagnosis?: No VTE Prior VTE?: No VTE Risk Level:: Medical - moderate - high VTE Device Contraindication: Treatment Not Indicated VTE Drug Contraindication: N/A - Med Ordered
[2025-08-12 21:16] LABS: Glucose, Whole Blood 144 mg/dL (60-115)
[2025-08-12] MEDS: 0.9 % Sodium Chloride Flush 3 ML SYRINGE IVFLUSH (21:16)
[2025-08-12] MEDS: Parenteral Nutrition 1,560 ML 65 ML IV (21:25)
[2025-08-13 03:50] VITALS: BP 138/79; PULSE 104; RESP 18; TEMP 36.7; O2SAT 93
[2025-08-13 07:41] LABS: Glucose, Whole Blood 134 mg/dL (60-115)
[2025-08-13 07:57] VITALS: BP 136/75; PULSE 93; RESP 18; TEMP 36.4; O2SAT 98
[2025-08-13 08:22] LABS: Alanine Aminotransferase 50 U/L (0-31); Albumin Level 2.7 g/dL (3.5-5.0); Alkaline Phosphatase 201 U/L (39-117); Anion Gap 11 (12-20); Aspartate Amino Transferase 57 U/L (5-31); Blood Urea Nitrogen 15 mg/dL (9-16); Calcium 8.1 mg/dL (8.4-10.2); Carbon Dioxide 25 mmol/L (22-29); Chloride 100 mmol/L (96-108); Creatinine Clr Calc Pharmacy 85.5; Estimated Glomerular Filt Rate > 60; Magnesium 1.8 mg/dL (1.6-2.6); Potassium 3.3 mmol/L (3.3-5.1); Sodium 133 mmol/L (135-145); Total Protein 5.2 g/dL (6.5-8.0)
[2025-08-13] MEDS: 0.9 % Sodium Chloride Flush 3 ML SYRINGE IVFLUSH ×2 (08:27→15:26)
[2025-08-13] MEDS: Metoprolol Succinate ER 50 MG TAB.ER.24H PO ×2 (08:27→20:01)
--- NOTE | 2025-08-13 10:04 | PM.PNGS ---
Subjective Subjective Date of Service: 08/13/25 Interval history: Overall patient feels improved and reports eating slightly more every day. Her ostomy is functioning properly. Physical Exam Vital Signs: Vital Signs: Last Vital Signs Temp 97.6 F 08/13/25 07:57 Pulse 93 08/13/25 07:57 Resp 18 08/13/25 07:57 BP 136/75 08/13/25 07:57 Pulse Ox 98 08/13/25 07:57 O2 Del Method Room Air 08/13/25 07:57 O2 Flow Rate 6 08/07/25 14:54 BMI result Body Mass Index 22.7 Const: General: comfortable and no acute distress Resp: Effort & Inspection: normal respiratory effort Cardio: Rhythm: abnormal rhythm GI: Other: Ostomy in the left lower quadrant is pink and viable, producing soft brown stool, no blood Palpation (GI): Soft to palpation, not firm, nontender and no guarding Objective Data Active Medications Atorvastatin Calcium (Atorvastatin Calcium 10 Mg Tablet) 10 mg PO BEDTIME [facility] Last Admin: 08/12/25 21:16 Dose: 10 mg Documented By: SUSAN Calcium Carbonate (Calcium Carbonate 750 Mg Tab.Chew) 750 mg PO Q4H PRN PRN Reason: Heartburn Dextrose (Dextrose 50 % 25 Gm/50 Ml Syringe) 25 gm IVPUSH Q15M PRN; Protocol PRN Reason: per Hypoglycemia Standing Ord. Dextrose (Dextrose 50 % 25 Gm/50 Ml Syringe) 25 gm IVPUSH Q15M PRN; Protocol PRN Reason: per Hypoglycemia Standing Ord. Digoxin (Digoxin 0.125 Mg Tablet) 0.125 mg PO DAILY [facility]; Protocol Last Admin: 08/13/25 08:27 Dose: 0.125 mg Documented By: NILSON Enoxaparin Sodium (Enoxaparin Sodium 60 Mg/0.6 Ml Syringe) 60 mg SUBCUT Q12H [facility] On Hold: 08/04/25 15:19 Last Admin: 08/04/25 09:13 Dose: 60 mg Documented By: GA Glucose (Glucose Gel 15 Gm Gel..Gram.) 15 gm PO Q15M PRN; Protocol PRN Reason: per Hypoglycemia Standing Ord. Glucose (Glucose Gel 15 Gm Gel..Gram.) 15 gm PO Q15M PRN; Protocol PRN Reason: per Hypoglycemia Standing Ord. Heparin Sodium (Porcine) (Heparin Sodium,Porcine 5,000 Unit/Ml Vial) 5,000 unit SUBCUT Q8H [facility] Last Admin: 08/13/25 08:28 Dose: 5,000 unit Documented By: NILSON Piperacillin Sod/Tazobactam (Sod 3.375 gm/ Sodium Chloride) 50 mls @ 100 mls/hr IV Q6H [facility] Last Infusion: 08/13/25 05:43 Dose: Infused Documented By: SUSAN Nutrition (Parenteral) (Parenteral Nutrition) 1,560 mls @ 65 mls/hr IV .Q24H [facility]; Protocol Stop: 08/13/25 20:59 Last Admin: 08/12/25 21:25 Dose: 65 mls/hr Documented By: SUSAN Insulin Human Lispro (Insulin Lispro 100 Unit/Ml 3 Ml Vial) 0 unit SUBCUT QIDACHS [facility]; Protocol Last Admin: 08/13/25 08:28 Dose: Not Given Documented By: NILSON Non-Admin Reason: No Insulin Coverage Magnesium Hydroxide (Milk Of Magnesia 30 Ml Oral.Susp) 30 ml PO DAILY PRN PRN Reason: Constipation Last Admin: 08/03/25 07:47 Dose: 30 ml Documented By: ERICH Melatonin (Melatonin 3 Mg Tablet) 6 mg PO BEDTIME PRN PRN Reason: Insomnia Metoclopramide HCl (Metoclopramide Hcl 10 Mg/2 Ml Vial) 5 mg IVPUSH Q6H PRN PRN Reason: Nausea and Vomiting Last Admin: 08/12/25 22:13 Dose: 5 mg Documented By: SUSAN Metoprolol Succinate (Metoprolol Succinate Er 50 Mg Tab.Er.24h) 50 mg PO BID [facility]; Protocol Last Admin: 08/13/25 08:27 Dose: 50 mg Documented By: NILSON Metoprolol Tartrate (Metoprolol Tartrate 5 Mg/5 Ml Vial) 5 mg IVPUSH Q6H PRN; Protocol PRN Reason: HR>90 Last Admin: 08/12/25 09:55 Dose: 5 mg Documented By: LETY Morphine Sulfate (Morphine Sulfate 4 Mg/Ml Cartridge) 3 mg IVPUSH Q3H PRN; Protocol PRN Reason: Pain, Severe (Pain Scale 7-10) Last Admin: 08/13/25 08:33 Dose: 3 mg Documented By: NILSON Omeprazole (Omeprazole 20 Mg Marcin.) 20 mg PO DAILY@0630 [facility] Last Admin: 08/13/25 06:07 Dose: 20 mg Documented By: SUSAN Ondansetron HCl (Ondansetron Hcl 4 Mg/2 Ml Vial) 4 mg IVPUSH Q8H PRN PRN Reason: Nausea and Vomiting Last Admin: 08/12/25 05:07 Dose: 4 mg Documented By: KIERAN Pharmacy Consult (Consult Rx Parenteral Nutrition Ordering) 1 each MISCELLANE DAILY PRN PRN Reason: Consult order Polyethylene Glycol (Polyethylene Glycol 3350 17 Gm Powd.Pack) 17 gm PO DAILY [facility] Last Admin: 08/13/25 08:40 Dose: Not Given Documented By: NILSON Non-Admin Reason: Patient Refused Sodium Chloride (0.9 % Sodium Chloride Flush 3 Ml Syringe) 3 ml IVFLUSH QSHIFT [facility] Last Admin: 08/13/25 08:27 Dose: 3 ml Documented By: NILSON Labs 08/09/25 07:00 08/13/25 07:34 Labs: Laboratory Results - last 24 hr 08/12/25 08/12/25 08/12/25 10:48 16:08 21:12 Anion Gap Estim Creat Clear Calc Estimated GFR POC Glucose 174 H 149 H 144 H Random Glucose Calcium Phosphorus Magnesium Total Bilirubin AST ALT Alkaline Phosphatase Total Protein Albumin 08/13/25 08/13/25 07:34 07:37 Anion Gap 11 L Estim Creat Clear Calc 85.5 Estimated GFR > 60 POC Glucose 134 H Random Glucose 148 H Calcium 8.1 L Phosphorus 3.2 Magnesium 1.8 Total Bilirubin 0.5 AST 57 H ALT 50 H Alkaline Phosphatase 201 H Total Protein 5.2 L Albumin 2.7 L Procedures Date of Service Date of Service: 08/13/25 Progress Note: A&P Assessment and plan (1) Diverticulitis of intestine with abscess: Status: Acute Assessment and Plan: Patient continues to improve slowly with a slight increase in her appetite. Ostomy is functioning properly with nonbloody stool. Abdominal wounds are clean, dry and intact. We will advance diet to regular. Encouraged out of bed, incentive spirometry. Time Spent With Patient Time: Total time managing care of this patient today ____ minutes. Quality Stroke Does the patient have a stroke diagnosis?: No VTE Prior VTE?: No VTE Risk Level:: Medical - moderate - high VTE Device Contraindication: Treatment Not Indicated VTE Drug Contraindication: N/A - Med Ordered
[2025-08-13 11:31] LABS: Glucose, Whole Blood 167 mg/dL (60-115)
[2025-08-13 11:47] VITALS: BP 129/65; PULSE 92; RESP 18; TEMP 36.6; O2SAT 96
--- NOTE | 2025-08-13 14:38 | HO.PM.IMPN ---
Subjective Subjective Date of Service: 08/13/25 Interval History: tolerating full liquid diet, pain controlled, using IS Review of Systems Review of Systems: Yes all other systems are reviewed and are negative Physical Exam Vital Signs: Vital Signs: Last Vital Signs Temp 97.8 F 08/13/25 11:47 Pulse 92 08/13/25 11:47 Resp 18 08/13/25 11:47 BP 129/65 08/13/25 11:47 Pulse Ox 96 08/13/25 11:47 O2 Del Method Room Air 08/13/25 11:47 O2 Flow Rate 6 08/07/25 14:54 BMI result Body Mass Index 22.7 Gen: in no acute distress HEENT: sclera anicteric, moist mucus membranes Neck: supple Lungs: clear to auscultation bilaterally Heart: regular rate and rhythm, no murmurs Abd: soft, colostomy with liquid brown stool Ext: no edema Skin: warm/well-perfused Neuro: alert and oriented x3, no focal findings Psych: appropriate affect Objective Data Active Medications Atorvastatin Calcium (Atorvastatin Calcium 10 Mg Tablet) 10 mg PO BEDTIME [facility] Last Admin: 08/12/25 21:16 Dose: 10 mg Documented By: SUSAN Calcium Carbonate (Calcium Carbonate 750 Mg Tab.Chew) 750 mg PO Q4H PRN PRN Reason: Heartburn Dextrose (Dextrose 50 % 25 Gm/50 Ml Syringe) 25 gm IVPUSH Q15M PRN; Protocol PRN Reason: per Hypoglycemia Standing Ord. Dextrose (Dextrose 50 % 25 Gm/50 Ml Syringe) 25 gm IVPUSH Q15M PRN; Protocol PRN Reason: per Hypoglycemia Standing Ord. Digoxin (Digoxin 0.125 Mg Tablet) 0.125 mg PO DAILY [facility]; Protocol Last Admin: 08/13/25 08:27 Dose: 0.125 mg Documented By: NILSON Enoxaparin Sodium (Enoxaparin Sodium 60 Mg/0.6 Ml Syringe) 60 mg SUBCUT Q12H [facility] On Hold: 08/04/25 15:19 Last Admin: 08/04/25 09:13 Dose: 60 mg Documented By: GA Glucose (Glucose Gel 15 Gm Gel..Gram.) 15 gm PO Q15M PRN; Protocol PRN Reason: per Hypoglycemia Standing Ord. Glucose (Glucose Gel 15 Gm Gel..Gram.) 15 gm PO Q15M PRN; Protocol PRN Reason: per Hypoglycemia Standing Ord. Heparin Sodium (Porcine) (Heparin Sodium,Porcine 5,000 Unit/Ml Vial) 5,000 unit SUBCUT Q8H [facility] Last Admin: 08/13/25 08:28 Dose: 5,000 unit Documented By: NILSON Piperacillin Sod/Tazobactam (Sod 3.375 gm/ Sodium Chloride) 50 mls @ 100 mls/hr IV Q6H [facility] Last Infusion: 08/13/25 12:14 Dose: Infused Documented By: NILSON Nutrition (Parenteral) (Parenteral Nutrition) 1,560 mls @ 65 mls/hr IV .Q24H [facility]; Protocol Stop: 08/13/25 20:59 Last Admin: 08/12/25 21:25 Dose: 65 mls/hr Documented By: SUSAN Nutrition (Parenteral) (Parenteral Nutrition) 1,560 mls @ 65 mls/hr IV .Q24H [facility]; Protocol Stop: 08/14/25 20:59 Insulin Human Lispro (Insulin Lispro 100 Unit/Ml 3 Ml Vial) 0 unit SUBCUT QIDACHS [facility]; Protocol Last Admin: 08/13/25 11:55 Dose: 2 unit Documented By: NILSON Magnesium Hydroxide (Milk Of Magnesia 30 Ml Oral.Susp) 30 ml PO DAILY PRN PRN Reason: Constipation Last Admin: 08/03/25 07:47 Dose: 30 ml Documented By: ERICH Melatonin (Melatonin 3 Mg Tablet) 6 mg PO BEDTIME PRN PRN Reason: Insomnia Metoclopramide HCl (Metoclopramide Hcl 10 Mg/2 Ml Vial) 5 mg IVPUSH Q6H PRN PRN Reason: Nausea and Vomiting Last Admin: 08/12/25 22:13 Dose: 5 mg Documented By: SUSAN Metoprolol Succinate (Metoprolol Succinate Er 50 Mg Tab.Er.24h) 50 mg PO BID [facility]; Protocol Last Admin: 08/13/25 08:27 Dose: 50 mg Documented By: NILSON Metoprolol Tartrate (Metoprolol Tartrate 5 Mg/5 Ml Vial) 5 mg IVPUSH Q6H PRN; Protocol PRN Reason: HR>90 Last Admin: 08/12/25 09:55 Dose: 5 mg Documented By: LETY Morphine Sulfate (Morphine Sulfate 4 Mg/Ml Cartridge) 3 mg IVPUSH Q3H PRN; Protocol PRN Reason: Pain, Severe (Pain Scale 7-10) Last Admin: 08/13/25 08:33 Dose: 3 mg Documented By: NILSON Omeprazole (Omeprazole 20 Mg Capsule.) 20 mg PO DAILY@0630 [facility] Last Admin: 08/13/25 06:07 Dose: 20 mg Documented By: SUSAN Ondansetron HCl (Ondansetron Hcl 4 Mg/2 Ml Vial) 4 mg IVPUSH Q8H PRN PRN Reason: Nausea and Vomiting Last Admin: 08/12/25 05:07 Dose: 4 mg Documented By: KIERAN Pharmacy Consult (Consult Rx Parenteral Nutrition Ordering) 1 each MISCELLANE DAILY PRN PRN Reason: Consult order Polyethylene Glycol (Polyethylene Glycol 3350 17 Gm Powd.Pack) 17 gm PO DAILY [facility] Last Admin: 08/13/25 08:40 Dose: Not Given Documented By: NILSON Non-Admin Reason: Patient Refused Sodium Chloride (0.9 % Sodium Chloride Flush 3 Ml Syringe) 3 ml IVFLUSH QSHIFT [facility] Last Admin: 08/13/25 08:27 Dose: 3 ml Documented By: NILSON Labs 08/09/25 07:00 08/13/25 07:34 Labs: Laboratory Results - last 24 hr 08/12/25 08/12/25 08/13/25 16:08 21:12 07:34 Anion Gap 11 L Estim Creat Clear Calc 85.5 Estimated GFR > 60 POC Glucose 149 H 144 H Random Glucose 148 H Calcium 8.1 L Phosphorus 3.2 Magnesium 1.8 Total Bilirubin 0.5 AST 57 H ALT 50 H Alkaline Phosphatase 201 H Total Protein 5.2 L Albumin 2.7 L 08/13/25 08/13/25 07:37 11:26 Anion Gap Estim Creat Clear Calc Estimated GFR POC Glucose 134 H 167 H Random Glucose Calcium Phosphorus Magnesium Total Bilirubin AST ALT Alkaline Phosphatase Total Protein Albumin Assessment and Plan (1) Diverticulitis of intestine with abscess: Status: Acute (2) S/P colostomy: Status: Acute Plan d16, 84yo F with pAF on apixaban, MM with bone metastases, DM2, HLD presenting with abd pain, found to have acute diverticulitis with pelvic abscess acute complicated diverticulitis with pelvic abscess - s/p sigmoid loop colostomy + drainage of pelvic abscess 08/07/25 - colostomy functioning well, continue PPN 1 more day as diet advanced to solids and if tolerates solids, will d/c PPN tomorrow - 08/06- piperacillin-tazobactam pAF with RVR - continue digoxin + metoprolol succinate - restart apixaban; cleared with Surgery HTN: metoprolol succinate HLD: statin MM: outpatient follow-up, on chronic oxycodone for pain control VTE ppx: apixaban dispo: STR per PT evaluation In my clinical judgment, the patient requires continued inpatient hospitalization for the following reasons: IV ABX + PPN Total time managing care of this patient today: 35 minutes. Quality Stroke Does the patient have a stroke diagnosis?: No VTE Prior VTE?: No VTE Risk Level:: Medical - moderate - high VTE Device Contraindication: Treatment Not Indicated VTE Drug Contraindication: N/A - Med Ordered
[2025-08-13 15:58] LABS: Glucose, Whole Blood 136 mg/dL (60-115)
[2025-08-13 16:00] VITALS: BP 134/96; PULSE 100; RESP 18; TEMP 36.6; O2SAT 98
[2025-08-13 19:15] VITALS: BP 132/75; PULSE 98; RESP 16; TEMP 36.6; O2SAT 96
[2025-08-13 20:54] LABS: Glucose, Whole Blood 145 mg/dL (60-115)
[2025-08-13] MEDS: Parenteral Nutrition 1,560 ML 65 ML IV (21:38)
[2025-08-13 23:35] VITALS: BP 98/75; PULSE 89; RESP 18; TEMP 36.6; O2SAT 98
[2025-08-14 03:00] VITALS: BP 123/82; PULSE 86; RESP 18; TEMP 36.7; O2SAT 94
[2025-08-14 07:26] LABS: Alanine Aminotransferase 60 U/L (0-31); Albumin Level 2.7 g/dL (3.5-5.0); Alkaline Phosphatase 210 U/L (39-117); Aspartate Amino Transferase 56 U/L (5-31); Blood Urea Nitrogen 14 mg/dL (9-16); Calcium 8.4 mg/dL (8.4-10.2); Creatinine Clr Calc Pharmacy 87.5; Estimated Glomerular Filt Rate > 60; Magnesium 1.8 mg/dL (1.6-2.6); Total Protein 5.4 g/dL (6.5-8.0)
[2025-08-14 07:35] LABS: Glucose, Whole Blood 151 mg/dL (60-115)
[2025-08-14 07:36] LABS: Anion Gap 13 (12-20); Carbon Dioxide 24 mmol/L (22-29); Chloride 103 mmol/L (96-108); Potassium 4.0 mmol/L (3.3-5.1); Sodium 136 mmol/L (135-145)
[2025-08-14 08:00] VITALS: BP 130/79; PULSE 113; RESP 20; TEMP 36.2; O2SAT 96
[2025-08-14] MEDS: Metoprolol Succinate ER 50 MG TAB.ER.24H PO ×2 (09:26→20:38)
[2025-08-14] MEDS: 0.9 % Sodium Chloride Flush 3 ML SYRINGE IVFLUSH ×2 (09:27→22:39)
--- NOTE | 2025-08-14 09:32 | P.PNGS_ITS ---
Subjective Subjective Date of Service: 08/14/25 Interval history: Says oral intake improving slowly Stoma continues to function well She says she has been ambulating more Physical Exam 2 Vital Signs: Vital Signs: Last Vital Signs Temp 97.1 F 08/14/25 08:00 Pulse 113 H 08/14/25 08:00 Resp 20 08/14/25 08:00 BP 130/79 08/14/25 08:00 Pulse Ox 96 08/14/25 08:00 O2 Del Method Room Air 08/14/25 08:00 O2 Flow Rate 6 08/07/25 14:54 BMI result Body Mass Index 22.7 Const: General: comfortable and no acute distress Resp: Effort & Inspection: normal respiratory effort GI: Other: Stoma functioning well, good output of air and gas, incision healing well Palpation (GI): Soft to palpation, not firm and no guarding Objective Data Active Medications Apixaban (Apixaban 5 Mg Tablet) 5 mg PO BID [facility] Last Admin: 08/14/25 09:26 Dose: 5 mg Documented By: ROCÍO Atorvastatin Calcium (Atorvastatin Calcium 10 Mg Tablet) 10 mg PO BEDTIME [facility] Last Admin: 08/13/25 20:01 Dose: 10 mg Documented By: SUSAN Calcium Carbonate (Calcium Carbonate 750 Mg Tab.Chew) 750 mg PO Q4H PRN PRN Reason: Heartburn Last Admin: 08/13/25 20:03 Dose: 750 mg Documented By: SUSAN Dextrose (Dextrose 50 % 25 Gm/50 Ml Syringe) 25 gm IVPUSH Q15M PRN; Protocol PRN Reason: per Hypoglycemia Standing Ord. Dextrose (Dextrose 50 % 25 Gm/50 Ml Syringe) 25 gm IVPUSH Q15M PRN; Protocol PRN Reason: per Hypoglycemia Standing Ord. Digoxin (Digoxin 0.125 Mg Tablet) 0.125 mg PO DAILY [facility]; Protocol Last Admin: 08/14/25 09:26 Dose: 0.125 mg Documented By: ROCÍO Glucose (Glucose Gel 15 Gm Gel..Gram.) 15 gm PO Q15M PRN; Protocol PRN Reason: per Hypoglycemia Standing Ord. Glucose (Glucose Gel 15 Gm Gel..Gram.) 15 gm PO Q15M PRN; Protocol PRN Reason: per Hypoglycemia Standing Ord. Piperacillin Sod/Tazobactam (Sod 3.375 gm/ Sodium Chloride) 50 mls @ 100 mls/hr IV Q6H [facility] Last Infusion: 08/14/25 05:09 Dose: Infused Documented By: SANTA Nutrition (Parenteral) (Parenteral Nutrition) 1,560 mls @ 65 mls/hr IV .Q24H [facility]; Protocol Stop: 08/14/25 20:59 Last Admin: 08/13/25 21:38 Dose: 65 mls/hr Documented By: SUSAN Insulin Human Lispro (Insulin Lispro 100 Unit/Ml 3 Ml Vial) 0 unit SUBCUT QIDACHS [facility]; Protocol Last Admin: 08/14/25 09:26 Dose: 2 unit Documented By: ROCÍO Magnesium Hydroxide (Milk Of Magnesia 30 Ml Oral.Susp) 30 ml PO DAILY PRN PRN Reason: Constipation Last Admin: 08/03/25 07:47 Dose: 30 ml Documented By: ERICH Melatonin (Melatonin 3 Mg Tablet) 6 mg PO BEDTIME PRN PRN Reason: Insomnia Metoclopramide HCl (Metoclopramide Hcl 10 Mg/2 Ml Vial) 5 mg IVPUSH Q6H PRN PRN Reason: Nausea and Vomiting Last Admin: 08/12/25 22:13 Dose: 5 mg Documented By: SUSAN Metoprolol Succinate (Metoprolol Succinate Er 50 Mg Tab.Er.24h) 50 mg PO BID [facility]; Protocol Last Admin: 08/14/25 09:26 Dose: 50 mg Documented By: ROCÍO Metoprolol Tartrate (Metoprolol Tartrate 5 Mg/5 Ml Vial) 5 mg IVPUSH Q6H PRN; Protocol PRN Reason: HR>90 Last Admin: 08/12/25 09:55 Dose: 5 mg Documented By: LETY Morphine Sulfate (Morphine Sulfate 4 Mg/Ml Cartridge) 3 mg IVPUSH Q3H PRN; Protocol PRN Reason: Pain, Severe (Pain Scale 7-10) Last Admin: 08/14/25 05:47 Dose: 3 mg Documented By: SANTA Omeprazole (Omeprazole 20 Mg Capsule.) 20 mg PO DAILY@0630 [facility] Last Admin: 08/14/25 05:47 Dose: 20 mg Documented By: SANTA Ondansetron HCl (Ondansetron Hcl 4 Mg/2 Ml Vial) 4 mg IVPUSH Q8H PRN PRN Reason: Nausea and Vomiting Last Admin: 08/12/25 05:07 Dose: 4 mg Documented By: KIERAN Pharmacy Consult (Consult Rx Parenteral Nutrition Ordering) 1 each MISCELLANE DAILY PRN PRN Reason: Consult order Polyethylene Glycol (Polyethylene Glycol 3350 17 Gm Powd.Pack) 17 gm PO DAILY [facility] Last Admin: 08/14/25 09:27 Dose: Not Given Documented By: ROCÍO Non-Admin Reason: Patient Refused Sodium Chloride (0.9 % Sodium Chloride Flush 3 Ml Syringe) 3 ml IVFLUSH QSHIFT [facility] Last Admin: 08/14/25 09:27 Dose: 3 ml Documented By: ROCÍO Labs 08/09/25 07:00 08/14/25 06:31 Labs: Laboratory Results - last 24 hr 08/13/25 08/13/25 08/13/25 11:26 15:54 20:49 Hold Purple Top Anion Gap Estim Creat Clear Calc Estimated GFR POC Glucose 167 H 136 H 145 H Random Glucose Calcium Phosphorus Magnesium Total Bilirubin AST ALT Alkaline Phosphatase Total Protein Albumin 08/14/25 08/14/25 06:31 07:26 Hold Purple Top SEE NOTE Anion Gap 13 Estim Creat Clear Calc 87.5 Estimated GFR > 60 POC Glucose 151 H Random Glucose 144 H Calcium 8.4 Phosphorus 3.2 Magnesium 1.8 Total Bilirubin 0.5 AST 56 H ALT 60 H Alkaline Phosphatase 210 H Total Protein 5.4 L Albumin 2.7 L Procedures Date of Service Date of Service: 08/14/25 Progress Note: A&P Assessment and plan (1) Diverticulitis of intestine with abscess: Status: Acute Assessment and Plan: Status post diverting loop ileostomy Good stoma function Abdomen is soft and benign Continue to increase ambulation as well as oral intake Clinically doing very well ANNIKA drain clear Time Spent With Patient Time: Total time managing care of this patient today ____ minutes. Quality Stroke Does the patient have a stroke diagnosis?: No VTE Prior VTE?: No VTE Risk Level:: Medical - moderate - high VTE Device Contraindication: Treatment Not Indicated VTE Drug Contraindication: N/A - Med Ordered
--- NOTE | 2025-08-14 11:14 | P.PNIM_ITS ---
Subjective Subjective Date of Service: 08/14/25 Interval History: tolerating about half of diet, no N/V, colostomy with good output Review of Systems Review of Systems: Yes all other systems are reviewed and are negative Physical Exam 2 Vital Signs: Vital Signs: Last Vital Signs Temp 97.1 F 08/14/25 08:00 Pulse 113 H 08/14/25 08:00 Resp 20 08/14/25 08:00 BP 130/79 08/14/25 08:00 Pulse Ox 96 08/14/25 08:00 O2 Del Method Room Air 08/14/25 08:00 O2 Flow Rate 6 08/07/25 14:54 BMI result Body Mass Index 22.7 Gen: in no acute distress HEENT: sclera anicteric, moist mucus membranes Neck: supple Lungs: clear to auscultation bilaterally Heart: regular rate and rhythm, no murmurs Abd: soft, colostomy with liquid brown stool Ext: no edema Skin: warm/well-perfused Neuro: alert and oriented x3, no focal findings Psych: appropriate affect Objective Data Active Medications Apixaban (Apixaban 5 Mg Tablet) 5 mg PO BID [facility] [place] Last Admin: 08/14/25 09:26 Dose: 5 mg Documented By: ROCÍO Atorvastatin Calcium (Atorvastatin Calcium 10 Mg Tablet) 10 mg PO BEDTIME [facility] Last Admin: 08/13/25 20:01 Dose: 10 mg Documented By: SUSAN Calcium Carbonate (Calcium Carbonate 750 Mg Tab.Chew) 750 mg PO Q4H PRN PRN Reason: Heartburn Last Admin: 08/13/25 20:03 Dose: 750 mg Documented By: SUSAN Dextrose (Dextrose 50 % 25 Gm/50 Ml Syringe) 25 gm IVPUSH Q15M PRN; Protocol PRN Reason: per Hypoglycemia Standing Ord. Dextrose (Dextrose 50 % 25 Gm/50 Ml Syringe) 25 gm IVPUSH Q15M PRN; Protocol PRN Reason: per Hypoglycemia Standing Ord. Digoxin (Digoxin 0.125 Mg Tablet) 0.125 mg PO DAILY [facility]; Protocol Last Admin: 08/14/25 09:26 Dose: 0.125 mg Documented By: ROCÍO Glucose (Glucose Gel 15 Gm Gel..Gram.) 15 gm PO Q15M PRN; Protocol PRN Reason: per Hypoglycemia Standing Ord. Glucose (Glucose Gel 15 Gm Gel..Gram.) 15 gm PO Q15M PRN; Protocol PRN Reason: per Hypoglycemia Standing Ord. Piperacillin Sod/Tazobactam (Sod 3.375 gm/ Sodium Chloride) 50 mls @ 100 mls/hr IV Q6H [facility] [place] Last Infusion: 08/14/25 05:09 Dose: Infused Documented By: SANTA Insulin Human Lispro (Insulin Lispro 100 Unit/Ml 3 Ml Vial) 0 unit SUBCUT QIDACHS [facility]; Protocol Last Admin: 08/14/25 09:26 Dose: 2 unit Documented By: ROCÍO Magnesium Hydroxide (Milk Of Magnesia 30 Ml Oral.Susp) 30 ml PO DAILY PRN PRN Reason: Constipation Last Admin: 08/03/25 07:47 Dose: 30 ml Documented By: ERICH Melatonin (Melatonin 3 Mg Tablet) 6 mg PO BEDTIME PRN PRN Reason: Insomnia Metoclopramide HCl (Metoclopramide Hcl 10 Mg/2 Ml Vial) 5 mg IVPUSH Q6H PRN PRN Reason: Nausea and Vomiting Last Admin: 08/12/25 22:13 Dose: 5 mg Documented By: SUSAN Metoprolol Succinate (Metoprolol Succinate Er 50 Mg Tab.Er.24h) 50 mg PO BID [facility] [place]; Protocol Last Admin: 08/14/25 09:26 Dose: 50 mg Documented By: ROCÍO Metoprolol Tartrate (Metoprolol Tartrate 5 Mg/5 Ml Vial) 5 mg IVPUSH Q6H PRN; Protocol PRN Reason: HR>90 Last Admin: 08/12/25 09:55 Dose: 5 mg Documented By: LETY Morphine Sulfate (Morphine Sulfate 4 Mg/Ml Cartridge) 3 mg IVPUSH Q3H PRN; Protocol PRN Reason: Pain, Severe (Pain Scale 7-10) Last Admin: 08/14/25 05:47 Dose: 3 mg Documented By: SANTA Omeprazole (Omeprazole 20 Mg Capsule.Dr) 20 mg PO DAILY@0630 [facility] [place] Last Admin: 08/14/25 05:47 Dose: 20 mg Documented By: SANTA Ondansetron HCl (Ondansetron Hcl 4 Mg/2 Ml Vial) 4 mg IVPUSH Q8H PRN PRN Reason: Nausea and Vomiting Last Admin: 08/12/25 05:07 Dose: 4 mg Documented By: KIERAN Pharmacy Consult (Consult Rx Parenteral Nutrition Ordering) 1 each MISCELLANE DAILY PRN PRN Reason: Consult order Polyethylene Glycol (Polyethylene Glycol 3350 17 Gm Powd.Pack) 17 gm PO DAILY [facility] [place] Last Admin: 08/14/25 09:27 Dose: Not Given Documented By: ROCÍO Non-Admin Reason: Patient Refused Sodium Chloride (0.9 % Sodium Chloride Flush 3 Ml Syringe) 3 ml IVFLUSH QSHIFT [facility] [place] Last Admin: 08/14/25 09:27 Dose: 3 ml Documented By: ROCÍO Labs 08/09/25 07:00 08/14/25 06:31 Labs: Laboratory Results - last 24 hr 08/13/25 08/13/25 08/13/25 11: 15:54 20:49 Hold Purple Top Anion Gap Estim Creat Clear Calc Estimated GFR POC Glucose 167 H 136 H 145 H Random Glucose Calcium Phosphorus Magnesium Total Bilirubin AST ALT Alkaline Phosphatase Total Protein Albumin 08/14/25 08/14/25 06:31 07:26 Hold Purple Top SEE NOTE Anion Gap 13 Estim Creat Clear Calc 87.5 Estimated GFR > 60 POC Glucose 151 H Random Glucose 144 H Calcium 8.4 Phosphorus 3.2 Magnesium 1.8 Total Bilirubin 0.5 AST 56 H ALT 60 H Alkaline Phosphatase 210 H Total Protein 5.4 L Albumin 2.7 L Assessment and Plan (1) Diverticulitis of intestine with abscess: Status: Acute (2) S/P colostomy: Status: Acute Plan d17, 84yo F with pAF on apixaban, MM with bone metastases, DM2, HLD presenting with abd pain, found to have acute diverticulitis with pelvic abscess acute complicated diverticulitis with pelvic abscess - s/p sigmoid loop colostomy + drainage of pelvic abscess 08/07/25 - colostomy functioning well, tolerating solids, will d/c PPN - 08/06-08/14 piperacillin-tazobactam [will d/c today, 7d after definitive source control] pAF with RVR - continue digoxin + metoprolol succinate - restarted apixaban; cleared with Surgery HTN: metoprolol succinate HLD: statin MM: outpatient follow-up, on chronic oxycodone for pain control VTE ppx: apixaban dispo: STR vs home with VNA In my clinical judgment, the patient requires continued inpatient hospitalization for the following reasons: dispo planning Total time managing care of this patient today: 35 minutes. Quality Stroke Does the patient have a stroke diagnosis?: No VTE Prior VTE?: No VTE Risk Level:: Medical - moderate - high VTE Device Contraindication: Treatment Not Indicated VTE Drug Contraindication: N/A - Med Ordered
--- NOTE | 2025-08-14 11:18 | MHC.CLN ---
F/U DIET ADVANCEMENT TO REGULAR 08/13. PO 50-75%. DISCONTINUE PPN TODAY. ADDING ENSURE TID TO PROMOTE NUTRITIONAL INTAKE. SUPPLEMENT PROVIDES 1050 KCALS, 60 G PROTEIN. CONTINUE TO FOLLOW FOR DIET TOLERANCE AND PO INTAKE.
[2025-08-14 11:46] LABS: Glucose, Whole Blood 118 mg/dL (60-115)
[2025-08-14 12:41] VITALS: BP 136/98; PULSE 104; RESP 16; TEMP 36.1; O2SAT 95
[2025-08-14 16:00] VITALS: BP 140/76; PULSE 94; RESP 18; TEMP 36.1; O2SAT 96
--- NOTE | 2025-08-14 16:13 | MHC.CM.PN ---
EMR REVIEWED, PLAN FOR ADVANCING DIET AND DC OVER W/E, CM WILL CONT TO FOLLOW DC NEEDS.
[2025-08-14 16:35] LABS: Glucose, Whole Blood 116 mg/dL (60-115)
[2025-08-14 20:00] VITALS: BP 141/83; PULSE 92; RESP 18; TEMP 36.6; O2SAT 96
[2025-08-14 20:44] LABS: Glucose, Whole Blood 124 mg/dL (60-115)
[2025-08-14 23:54] VITALS: BP 140/77; PULSE 94; RESP 18; TEMP 36.5; O2SAT 96
[2025-08-15] VITALS (8 sets, daily range): BP systolic 112–148; BP diastolic 73–93; PULSE 88–103; RESP 18; TEMP 36.1–37.2; O2SAT 96–98
[2025-08-15 07:27] LABS: Glucose, Whole Blood 94 mg/dL (60-115)
[2025-08-15] MEDS: Metoprolol Succinate ER 50 MG TAB.ER.24H PO ×2 (10:05→20:30)
[2025-08-15] MEDS: 0.9 % Sodium Chloride Flush 3 ML SYRINGE IVFLUSH ×3 (10:06→20:30)
--- NOTE | 2025-08-15 10:07 | P.PNGS_ITS ---
Subjective Subjective Date of Service: 08/15/25 Interval history: Feels well Oral intake a little better Stoma continues to function well Physical Exam 2 Vital Signs: Vital Signs: Last Vital Signs Temp 97.2 F 08/15/25 07:31 Pulse 98 08/15/25 10:05 Resp 18 08/15/25 07:31 BP 133/91 H 08/15/25 10:05 Pulse Ox 96 08/15/25 07:31 O2 Del Method Room Air 08/15/25 07:31 O2 Flow Rate 6 08/07/25 14:54 BMI result Body Mass Index 22.7 Const: General: comfortable and no acute distress Resp: Effort & Inspection: normal respiratory effort GI: Other: Stoma with good function, ANNIKA drain serosanguineous Palpation (GI): Soft to palpation, not firm, nontender and no guarding Objective Data Active Medications Apixaban (Apixaban 5 Mg Tablet) 5 mg PO BID [facility] Last Admin: 08/15/25 10:04 Dose: 5 mg Documented By: VIC Atorvastatin Calcium (Atorvastatin Calcium 10 Mg Tablet) 10 mg PO BEDTIME [facility] Last Admin: 08/14/25 20:38 Dose: 10 mg Documented By: KIERAN Calcium Carbonate (Calcium Carbonate 750 Mg Tab.Chew) 750 mg PO Q4H PRN PRN Reason: Heartburn Last Admin: 08/13/25 20:03 Dose: 750 mg Documented By: SUSAN Dextrose (Dextrose 50 % 25 Gm/50 Ml Syringe) 25 gm IVPUSH Q15M PRN; Protocol PRN Reason: per Hypoglycemia Standing Ord. Dextrose (Dextrose 50 % 25 Gm/50 Ml Syringe) 25 gm IVPUSH Q15M PRN; Protocol PRN Reason: per Hypoglycemia Standing Ord. Digoxin (Digoxin 0.125 Mg Tablet) 0.125 mg PO DAILY [facility]; Protocol Last Admin: 08/15/25 10:06 Dose: 0.125 mg Documented By: VIC Glucose (Glucose Gel 15 Gm Gel..Gram.) 15 gm PO Q15M PRN; Protocol PRN Reason: per Hypoglycemia Standing Ord. Glucose (Glucose Gel 15 Gm Gel..Gram.) 15 gm PO Q15M PRN; Protocol PRN Reason: per Hypoglycemia Standing Ord. Insulin Human Lispro (Insulin Lispro 100 Unit/Ml 3 Ml Vial) 0 unit SUBCUT QIDACHS [facility]; Protocol Last Admin: 08/15/25 08:24 Dose: Not Given Documented By: VIC Non-Admin Reason: No Insulin Coverage Magnesium Hydroxide (Milk Of Magnesia 30 Ml Oral.Susp) 30 ml PO DAILY PRN PRN Reason: Constipation Last Admin: 08/03/25 07:47 Dose: 30 ml Documented By: ERICH Melatonin (Melatonin 3 Mg Tablet) 6 mg PO BEDTIME PRN PRN Reason: Insomnia Metoclopramide HCl (Metoclopramide Hcl 10 Mg/2 Ml Vial) 5 mg IVPUSH Q6H PRN PRN Reason: Nausea and Vomiting Last Admin: 08/12/25 22:13 Dose: 5 mg Documented By: SUSAN Metoprolol Succinate (Metoprolol Succinate Er 50 Mg Tab.Er.24h) 50 mg PO BID [facility]; Protocol Last Admin: 08/15/25 10:05 Dose: 50 mg Documented By: VIC Metoprolol Tartrate (Metoprolol Tartrate 5 Mg/5 Ml Vial) 5 mg IVPUSH Q6H PRN; Protocol PRN Reason: HR>90 Last Admin: 08/12/25 09:55 Dose: 5 mg Documented By: LETY Morphine Sulfate (Morphine Sulfate 4 Mg/Ml Cartridge) 3 mg IVPUSH Q3H PRN; Protocol PRN Reason: Pain, Severe (Pain Scale 7-10) Last Admin: 08/15/25 01:40 Dose: 3 mg Documented By: KIERAN Omeprazole (Omeprazole 20 Mg Capsule.Dr) 20 mg PO DAILY@0630 [facility] Last Admin: 08/15/25 05:24 Dose: 20 mg Documented By: KIERAN Ondansetron HCl (Ondansetron Hcl 4 Mg/2 Ml Vial) 4 mg IVPUSH Q8H PRN PRN Reason: Nausea and Vomiting Last Admin: 08/12/25 05:07 Dose: 4 mg Documented By: KIERAN Polyethylene Glycol (Polyethylene Glycol 3350 17 Gm Powd.Pack) 17 gm PO DAILY [facility] Last Admin: 08/15/25 10:07 Dose: 17 gm Documented By: VIC Sodium Chloride (0.9 % Sodium Chloride Flush 3 Ml Syringe) [facility] Last Admin: 08/15/25 10:06 Dose: 3 ml Documented By: VIC Labs 08/09/25 07:00 08/14/25 06:31 Labs: Laboratory Results - last 24 hr 08/14/25 08/14/25 08/14/25 11:37 16:31 20:39 POC Glucose 118 H 116 H 124 H 08/15/25 07:11 POC Glucose 94 Procedures Date of Service Date of Service: 08/15/25 Progress Note: A&P Assessment and plan (1) S/P colostomy: Status: Acute Assessment and Plan: Doing very well Soft and benign Stoma functioning well Push p.o. intake Ambulate Plan to DC ANNIKA drain prior to discharge Time Spent With Patient Time: Total time managing care of this patient today ____ minutes. Quality Stroke Does the patient have a stroke diagnosis?: No VTE Prior VTE?: No VTE Risk Level:: Medical - moderate - high VTE Device Contraindication: Treatment Not Indicated VTE Drug Contraindication: N/A - Med Ordered
[2025-08-15 11:28] LABS: Glucose, Whole Blood 113 mg/dL (60-115)
--- NOTE | 2025-08-15 11:32 | HO.PM.IMPN ---
Subjective Subjective Date of Service: 08/15/25 Interval History: c/o postsurgical pain, eating about 1/3 of tray, stoma functioning Review of Systems Review of Systems: Yes all other systems are reviewed and are negative Physical Exam Vital Signs: Vital Signs: Last Vital Signs Temp 97.2 F 08/15/25 07:31 Pulse 98 08/15/25 10:05 Resp 18 08/15/25 07:31 BP 133/91 H 08/15/25 10:05 Pulse Ox 96 08/15/25 07:31 O2 Del Method Room Air 08/15/25 07:31 O2 Flow Rate 6 08/07/25 14:54 BMI result Body Mass Index 22.7 Gen: in no acute distress HEENT: sclera anicteric, moist mucus membranes Neck: supple Lungs: clear to auscultation bilaterally Heart: regular rate and rhythm, no murmurs Abd: soft, colostomy with liquid brown stool, ANNIKA with serosanguinous liquid Ext: no edema Skin: warm/well-perfused Neuro: alert and oriented x3, no focal findings Psych: appropriate affect Objective Data Active Medications Apixaban (Apixaban 5 Mg Tablet) 5 mg PO BID [facility] Last Admin: 08/15/25 10:04 Dose: 5 mg Documented By: VIC Atorvastatin Calcium (Atorvastatin Calcium 10 Mg Tablet) 10 mg PO BEDTIME [facility] Last Admin: 08/14/25 20:38 Dose: 10 mg Documented By: KIERAN Calcium Carbonate (Calcium Carbonate 750 Mg Tab.Chew) 750 mg PO Q4H PRN PRN Reason: Heartburn Last Admin: 08/13/25 20:03 Dose: 750 mg Documented By: SUSAN Dextrose (Dextrose 50 % 25 Gm/50 Ml Syringe) 25 gm IVPUSH Q15M PRN; Protocol PRN Reason: per Hypoglycemia Standing Ord. Dextrose (Dextrose 50 % 25 Gm/50 Ml Syringe) 25 gm IVPUSH Q15M PRN; Protocol PRN Reason: per Hypoglycemia Standing Ord. Digoxin (Digoxin 0.125 Mg Tablet) 0.125 mg PO DAILY [facility]; Protocol Last Admin: 08/15/25 10:06 Dose: 0.125 mg Documented By: VIC Glucose (Glucose Gel 15 Gm Gel..Gram.) 15 gm PO Q15M PRN; Protocol PRN Reason: per Hypoglycemia Standing Ord. Glucose (Glucose Gel 15 Gm Gel..Gram.) 15 gm PO Q15M PRN; Protocol PRN Reason: per Hypoglycemia Standing Ord. Insulin Human Lispro (Insulin Lispro 100 Unit/Ml 3 Ml Vial) 0 unit SUBCUT QIDACHS [facility]; Protocol Last Admin: 08/15/25 08:24 Dose: Not Given Documented By: VIC Non-Admin Reason: No Insulin Coverage Magnesium Hydroxide (Milk Of Magnesia 30 Ml Oral.Susp) 30 ml PO DAILY PRN PRN Reason: Constipation Last Admin: 08/03/25 07:47 Dose: 30 ml Documented By: ERICH Melatonin (Melatonin 3 Mg Tablet) 6 mg PO BEDTIME PRN PRN Reason: Insomnia Metoclopramide HCl (Metoclopramide Hcl 10 Mg/2 Ml Vial) 5 mg IVPUSH Q6H PRN PRN Reason: Nausea and Vomiting Last Admin: 08/12/25 22:13 Dose: 5 mg Documented By: SUSAN Metoprolol Succinate (Metoprolol Succinate Er 50 Mg Tab.Er.24h) 50 mg PO BID [facility]; Protocol Last Admin: 08/15/25 10:05 Dose: 50 mg Documented By: VIC Metoprolol Tartrate (Metoprolol Tartrate 5 Mg/5 Ml Vial) 5 mg IVPUSH Q6H PRN; Protocol PRN Reason: HR>90 Last Admin: 08/12/25 09:55 Dose: 5 mg Documented By: LETY Morphine Sulfate (Morphine Sulfate 4 Mg/Ml Cartridge) 3 mg IVPUSH Q3H PRN; Protocol PRN Reason: Pain, Severe (Pain Scale 7-10) Last Admin: 08/15/25 10:31 Dose: 3 mg Documented By: VIC Omeprazole (Omeprazole 20 Mg Capsule.) 20 mg PO DAILY@0630 [facility] Last Admin: 08/15/25 05:24 Dose: 20 mg Documented By: KIERAN Ondansetron HCl (Ondansetron Hcl 4 Mg/2 Ml Vial) 4 mg IVPUSH Q8H PRN PRN Reason: Nausea and Vomiting Last Admin: 08/12/25 05:07 Dose: 4 mg Documented By: KIERAN Polyethylene Glycol (Polyethylene Glycol 3350 17 Gm Powd.Pack) 17 gm PO DAILY [facility] Last Admin: 08/15/25 10:07 Dose: 17 gm Documented By: VIC Sodium Chloride (0.9 % Sodium Chloride Flush 3 Ml Syringe) 3 ml IVFLUSH QSHIFT [facility] Last Admin: 08/15/25 10:06 Dose: 3 ml Documented By: VIC Labs 08/09/25 07:00 08/14/25 06:31 Labs: Laboratory Results - last 24 hr 08/14/25 08/14/25 08/14/25 11:37 16:31 20:39 POC Glucose 118 H 116 H 124 H 08/15/25 08/15/25 07:11 11:19 POC Glucose 94 113 Assessment and Plan (1) Diverticulitis of intestine with abscess: Status: Acute (2) S/P colostomy: Status: Acute Plan d18, 84yo F with pAF on apixaban, MM with bone metastases, DM2, HLD presenting with abd pain, found to have acute diverticulitis with pelvic abscess acute complicated diverticulitis with pelvic abscess - s/p sigmoid loop colostomy + drainage of pelvic abscess 08/07/25 - colostomy functioning well, tolerating solids, d/c'ed PPN - 08/06-08/14 piperacillin-tazobactam - Surgery will d/c ANNIKA drain today or tomorrow pAF with RVR - continue digoxin + metoprolol succinate - restarted apixaban; cleared with Surgery HTN: metoprolol succinate HLD: statin MM: outpatient follow-up, on chronic oxycodone for pain control VTE ppx: apixaban dispo: refuses STR, plan home with VNA In my clinical judgment, the patient requires continued inpatient hospitalization for the following reasons: dispo planning Total time managing care of this patient today: 35 minutes. Quality Stroke Does the patient have a stroke diagnosis?: No VTE Prior VTE?: No VTE Risk Level:: Medical - moderate - high VTE Device Contraindication: Treatment Not Indicated VTE Drug Contraindication: N/A - Med Ordered
--- NOTE | 2025-08-15 11:42 | MHC.CM.PN ---
Addendum entered by Marianne Cervantes 08/16/25 10:14: PER HOSPITALIST, PT COULD DC TODAY TO [facility]. CM CONTACTED [facility], THEY ARE UNABLE TO ACCEPT TODAY, BUT HAVE A BED OPEN AT 1100 TOMORROW. BLS TRANSPORT BOOKED FOR TOMORROW AT 1100 TO [facility]. DAUGHTER NOTIFIED VIA T/C Original Note: CM RECEIVED A CALL FROM PTS DAUGHTER/HCP, MIKI LIN [phone] SHE REPORTS PT IS NOW AGREEABLE TO [facility] AND THEY FEEL SHE NEEDS IT SHE BELIEVES THE PLAN WILL BE TO HOLD CHEMO UNTIL AFTER REHAB [facility] IS PREFERRED SNF, AND THEY ARE FOLLOWING.
[2025-08-15 16:04] LABS: Glucose, Whole Blood 105 mg/dL (60-115)
[2025-08-15 20:33] LABS: Glucose, Whole Blood 110 mg/dL (60-115)
[2025-08-16] VITALS (7 sets, daily range): BP systolic 133–150; BP diastolic 78–99; PULSE 72–99; RESP 18; TEMP 36.1–36.6; O2SAT 95–98
[2025-08-16 07:43] LABS: Glucose, Whole Blood 103 mg/dL (60-115)
[2025-08-16] MEDS: 0.9 % Sodium Chloride Flush 3 ML SYRINGE IVFLUSH ×3 (08:59→20:27)
[2025-08-16] MEDS: Metoprolol Succinate ER 50 MG TAB.ER.24H PO ×2 (09:04→20:24)
--- NOTE | 2025-08-16 09:48 | PM.PNGS ---
Subjective Subjective Date of Service: 08/16/25 Interval history: Denies new complaints Says appetite is not back to normal Stoma continues to function well with good output Physical Exam Vital Signs: Vital Signs: Last Vital Signs Temp 97.6 F 08/16/25 07:56 Pulse 74 08/16/25 09:04 Resp 18 08/16/25 07:56 BP 136/88 08/16/25 09:04 Pulse Ox 95 08/16/25 07:56 O2 Del Method Room Air 08/16/25 07:56 O2 Flow Rate 6 08/07/25 14:54 BMI result Body Mass Index 22.7 Const: General: comfortable and no acute distress Resp: Effort & Inspection: normal respiratory effort GI: Other: Incision clean and dry and healing well, stoma with good output Palpation (GI): Soft to palpation, not firm, nontender and no guarding Objective Data Active Medications Apixaban (Apixaban 5 Mg Tablet) 5 mg PO BID [facility] Last Admin: 08/16/25 09:03 Dose: 5 mg Documented By: VIC Atorvastatin Calcium (Atorvastatin Calcium 10 Mg Tablet) 10 mg PO BEDTIME [facility] Last Admin: 08/15/25 20:30 Dose: 10 mg Documented By: AMANUEL Calcium Carbonate (Calcium Carbonate 750 Mg Tab.Chew) 750 mg PO Q4H PRN PRN Reason: Heartburn Last Admin: 08/16/25 02:39 Dose: 750 mg Documented By: AMANUEL Dextrose (Dextrose 50 % 25 Gm/50 Ml Syringe) 25 gm IVPUSH Q15M PRN; Protocol PRN Reason: per Hypoglycemia Standing Ord. Dextrose (Dextrose 50 % 25 Gm/50 Ml Syringe) 25 gm IVPUSH Q15M PRN; Protocol PRN Reason: per Hypoglycemia Standing Ord. Digoxin (Digoxin 0.125 Mg Tablet) 0.125 mg PO DAILY [facility]; Protocol Last Admin: 08/16/25 09:03 Dose: 0.125 mg Documented By: VIC Glucose (Glucose Gel 15 Gm Gel..Gram.) 15 gm PO Q15M PRN; Protocol PRN Reason: per Hypoglycemia Standing Ord. Glucose (Glucose Gel 15 Gm Gel..Gram.) 15 gm PO Q15M PRN; Protocol PRN Reason: per Hypoglycemia Standing Ord. Insulin Human Lispro (Insulin Lispro 100 Unit/Ml 3 Ml Vial) [facility]; Protocol Last Admin: 08/16/25 07:50 Dose: Not Given Documented By: VIC Non-Admin Reason: No Insulin Coverage Magnesium Hydroxide (Milk Of Magnesia 30 Ml Oral.Susp) 30 ml PO DAILY PRN PRN Reason: Constipation Last Admin: 08/03/25 07:47 Dose: 30 ml Documented By: ERICH Melatonin (Melatonin 3 Mg Tablet) 6 mg PO BEDTIME PRN PRN Reason: Insomnia Metoclopramide HCl (Metoclopramide Hcl 10 Mg/2 Ml Vial) 5 mg IVPUSH Q6H PRN PRN Reason: Nausea and Vomiting Last Admin: 08/12/25 22:13 Dose: 5 mg Documented By: SUSAN Metoprolol Succinate (Metoprolol Succinate Er 50 Mg Tab.Er.24h) 50 mg PO BID [facility]; Protocol Last Admin: 08/16/25 09:04 Dose: 50 mg Documented By: VIC Metoprolol Tartrate (Metoprolol Tartrate 5 Mg/5 Ml Vial) 5 mg IVPUSH Q6H PRN; Protocol PRN Reason: HR>90 Last Admin: 08/12/25 09:55 Dose: 5 mg Documented By: LETY Morphine Sulfate (Morphine Sulfate 4 Mg/Ml Cartridge) 3 mg IVPUSH Q3H PRN; Protocol PRN Reason: Pain, Severe (Pain Scale 7-10) Last Admin: 08/16/25 08:58 Dose: 3 mg Documented By: VIC Omeprazole (Omeprazole 20 Mg Capsule.Dr) 20 mg PO DAILY@0630 [facility] Last Admin: 08/16/25 06:25 Dose: 20 mg Documented By: AMANUEL Ondansetron HCl (Ondansetron Hcl 4 Mg/2 Ml Vial) 4 mg IVPUSH Q8H PRN PRN Reason: Nausea and Vomiting Last Admin: 08/12/25 05:07 Dose: 4 mg Documented By: KIERAN Sodium Chloride (0.9 % Sodium Chloride Flush 3 Ml Syringe) [facility] Last Admin: 08/16/25 08:59 Dose: 3 ml Documented By: VIC Labs 08/09/25 07:00 08/14/25 06:31 Labs: Laboratory Results - last 24 hr 08/15/25 08/15/25 08/15/25 11:19 15:59 20:19 POC Glucose 113 105 110 08/16/25 07:34 POC Glucose 103 Procedures Date of Service Date of Service: 08/16/25 Progress Note: A&P Assessment and plan (1) Diverticulitis of intestine with abscess: Status: Acute Assessment and Plan: Status post loop sigmoid colostomy drainage of abscess Doing well clinically Abdomen is soft and benign, stoma functioning well As per hospitalist service, patient will be going to rehab Stoma care ANNIKA drain removed yesterday Time Spent With Patient Time: Total time managing care of this patient today ____ minutes. Quality Stroke Does the patient have a stroke diagnosis?: No VTE Prior VTE?: No VTE Risk Level:: Medical - moderate - high VTE Device Contraindication: Treatment Not Indicated VTE Drug Contraindication: N/A - Med Ordered
--- NOTE | 2025-08-16 10:35 | HO.PM.IMPN ---
Subjective Subjective Date of Service: 08/16/25 Interval History: ANNIKA drain removed yesterday tolerating diet, colostomy functioning agrees now to STR placement, bed secured for tomorrow Review of Systems Review of Systems: Yes all other systems are reviewed and are negative Physical Exam Vital Signs: Vital Signs: Last Vital Signs Temp 97.6 F 08/16/25 07:56 Pulse 74 08/16/25 09:04 Resp 18 08/16/25 07:56 BP 136/88 08/16/25 09:04 Pulse Ox 95 08/16/25 07:56 O2 Del Method Room Air 08/16/25 07:56 O2 Flow Rate 6 08/07/25 14:54 BMI result Body Mass Index 22.7 Gen: in no acute distress HEENT: sclera anicteric, moist mucus membranes Neck: supple Lungs: clear to auscultation bilaterally Heart: regular rate and rhythm, no murmurs Abd: soft, colostomy with liquid brown stool Ext: no edema Skin: warm/well-perfused Neuro: alert and oriented x3, no focal findings Psych: appropriate affect Objective Data Active Medications Apixaban (Apixaban 5 Mg Tablet) 5 mg PO BID [facility] Last Admin: 08/16/25 09:03 Dose: 5 mg Documented By: VIC Atorvastatin Calcium (Atorvastatin Calcium 10 Mg Tablet) 10 mg PO BEDTIME [facility] Last Admin: 08/15/25 20:30 Dose: 10 mg Documented By: AMANUEL Calcium Carbonate (Calcium Carbonate 750 Mg Tab.Chew) 750 mg PO Q4H PRN PRN Reason: Heartburn Last Admin: 08/16/25 02:39 Dose: 750 mg Documented By: AMANUEL Dextrose (Dextrose 50 % 25 Gm/50 Ml Syringe) 25 gm IVPUSH Q15M PRN; Protocol PRN Reason: per Hypoglycemia Standing Ord. Dextrose (Dextrose 50 % 25 Gm/50 Ml Syringe) 25 gm IVPUSH Q15M PRN; Protocol PRN Reason: per Hypoglycemia Standing Ord. Digoxin (Digoxin 0.125 Mg Tablet) 0.125 mg PO DAILY [facility]; Protocol Last Admin: 08/16/25 09:03 Dose: 0.125 mg Documented By: VIC Glucose (Glucose Gel 15 Gm Gel..Gram.) 15 gm PO Q15M PRN; Protocol PRN Reason: per Hypoglycemia Standing Ord. Glucose (Glucose Gel 15 Gm Gel..Gram.) 15 gm PO Q15M PRN; Protocol PRN Reason: per Hypoglycemia Standing Ord. Insulin Human Lispro (Insulin Lispro 100 Unit/Ml 3 Ml Vial) 0 unit SUBCUT QIDACHS [facility]; Protocol Last Admin: 08/16/25 07:50 Dose: Not Given Documented By: VIC Non-Admin Reason: No Insulin Coverage Magnesium Hydroxide (Milk Of Magnesia 30 Ml Oral.Susp) 30 ml PO DAILY PRN PRN Reason: Constipation Last Admin: 08/03/25 07:47 Dose: 30 ml Documented By: ERICH Melatonin (Melatonin 3 Mg Tablet) 6 mg PO BEDTIME PRN PRN Reason: Insomnia Metoclopramide HCl (Metoclopramide Hcl 10 Mg/2 Ml Vial) 5 mg IVPUSH Q6H PRN PRN Reason: Nausea and Vomiting Last Admin: 08/12/25 22:13 Dose: 5 mg Documented By: SUSAN Metoprolol Succinate (Metoprolol Succinate Er 50 Mg Tab.Er.24h) 50 mg PO BID [facility]; Protocol Last Admin: 08/16/25 09:04 Dose: 50 mg Documented By: VIC Metoprolol Tartrate (Metoprolol Tartrate 5 Mg/5 Ml Vial) 5 mg IVPUSH Q6H PRN; Protocol PRN Reason: HR>90 Last Admin: 08/12/25 09:55 Dose: 5 mg Documented By: LETY Morphine Sulfate (Morphine Sulfate 4 Mg/Ml Cartridge) 3 mg IVPUSH Q3H PRN; Protocol PRN Reason: Pain, Severe (Pain Scale 7-10) Last Admin: 08/16/25 08:58 Dose: 3 mg Documented By: VIC Omeprazole (Omeprazole 20 Mg Capsule.Dr) 20 mg PO DAILY@0630 [facility] Last Admin: 08/16/25 06:25 Dose: 20 mg Documented By: AMANUEL Ondansetron HCl (Ondansetron Hcl 4 Mg/2 Ml Vial) 4 mg IVPUSH Q8H PRN PRN Reason: Nausea and Vomiting Last Admin: 08/12/25 05:07 Dose: 4 mg Documented By: KIERAN Sodium Chloride (0.9 % Sodium Chloride Flush 3 Ml Syringe) [facility] Last Admin: 08/16/25 08:59 Dose: 3 ml Documented By: VIC Labs 08/09/25 07:00 08/14/25 06:31 Labs: Laboratory Results - last 24 hr 08/15/25 08/15/25 08/15/25 11:19 15:59 20:19 POC Glucose 113 105 110 08/16/25 07:34 POC Glucose 103 Assessment and Plan (1) Diverticulitis of intestine with abscess: Status: Acute (2) S/P colostomy: Status: Acute Plan d19, 84yo F with pAF on apixaban, MM with bone metastases, DM2, HLD presenting with abd pain, found to have acute diverticulitis with pelvic abscess acute complicated diverticulitis with pelvic abscess - s/p sigmoid loop colostomy + drainage of pelvic abscess 08/07/25 - colostomy functioning well, tolerating solids, d/c'ed PPN - 08/06-08/14 piperacillin-tazobactam pAF with RVR - continue digoxin + metoprolol succinate - restarted apixaban; cleared with Surgery HTN: metoprolol succinate HLD: statin MM: outpatient follow-up, on chronic oxycodone for pain control VTE ppx: apixaban dispo: plan STR In my clinical judgment, the patient requires continued inpatient hospitalization for the following reasons: dispo planning Total time managing care of this patient today: 35 minutes. Quality Stroke Does the patient have a stroke diagnosis?: No VTE Prior VTE?: No VTE Risk Level:: Medical - moderate - high VTE Device Contraindication: Treatment Not Indicated VTE Drug Contraindication: N/A - Med Ordered
[2025-08-16 12:03] LABS: Glucose, Whole Blood 156 mg/dL (60-115)
[2025-08-16 16:09] LABS: Glucose, Whole Blood 155 mg/dL (60-115)
[2025-08-16 20:04] LABS: Glucose, Whole Blood 124 mg/dL (60-115)
[2025-08-17 01:00] VITALS: RESP 20
[2025-08-17 04:00] VITALS: BP 162/100; PULSE 80; RESP 18; TEMP 36.3; O2SAT 95
--- NOTE | 2025-08-17 06:44 | PM.PNGS ---
Subjective Subjective Date of Service: 08/17/25 <Kerry Machuca - Last Filed: 08/17/25 07:00> 08/17/25 <Char Durand PA-C - Last Filed: 08/17/25 08:00> 08/18/25 <Roosevelt Beebe MD - Last Filed: 08/18/25 14:36> Interval history: Abdominal pain relieved with medications Nausea relieved with medications Patient is tolerating a regular diet but reports decreased appetite and is not yet back to her baseline <Kerry Machuca - Last Filed: 08/17/25 07:00> Abdominal pain relieved with medications Nausea relieved with medications Patient is tolerating a regular diet but reports decreased appetite and is not yet back to her baseline, tolerating ensure and 1/3 of meal <Char Durand PA-C - Last Filed: 08/17/25 08:00> Physical Exam Vital Signs: Vital Signs: Last Vital Signs Temp 97.3 F 08/17/25 04:00 Pulse 80 08/17/25 04:00 Resp 18 08/17/25 04:00 BP 162/100 H 08/17/25 04:00 Pulse Ox 95 08/17/25 04:00 O2 Del Method Room Air 08/17/25 04:00 O2 Flow Rate 6 08/07/25 14:54 BMI result Body Mass Index 22.7 <Kerry Machuca - Last Filed: 08/17/25 07:00> Const: General: no acute distress, alert and awake <Kerry Machuca - Last Filed: 08/17/25 07:00> Orientation/consciousness: patient oriented x3 <Char Durand PA-C - Last Filed: 08/17/25 08:00> Resp: Effort & Inspection: normal respiratory effort and able to speak in complete sentences <Kerry Machuca - Last Filed: 08/17/25 07:00> GI: Other: Inspection- ostomy in LLQ. Good output, no blood. Dressing RLQ: clean, dry and intact <Kerry Short Last Filed: 08/17/25 07:00> Other: Inspection- ostomy in LLQ. Good output Dressing RLQ: clean, dry and intact <DANIEL Laughlin Last Filed: 08/17/25 08:00> Palpation (GI): Soft to palpation <Kerry Machuca - Last Filed: 08/17/25 07:00> Palpation (GI): nontender and no guarding <Char Durand PA-C - Last Filed: 08/17/25 08:00> Percussion: Yes normal to percussion <Kerry Machuca - Last Filed: 08/17/25 07:00> Skin: Other: warm and dry <Char Durand PA-C - Last Filed: 08/17/25 08:00> Neuro: General: patient oriented x3 and moves all extremities <Char Durand PA-C - Last Filed: 08/17/25 08:00> Objective Data Active Medications Apixaban (Apixaban 5 Mg Tablet) 5 mg PO BID [facility] Last Admin: 08/16/25 20:25 Dose: 5 mg Documented By: SILVIO Atorvastatin Calcium (Atorvastatin Calcium 10 Mg Tablet) 10 mg PO BEDTIME [facility] Last Admin: 08/16/25 20:25 Dose: 10 mg Documented By: SILVIO Calcium Carbonate (Calcium Carbonate 750 Mg Tab.Chew) 750 mg PO Q4H PRN PRN Reason: Heartburn Last Admin: 08/16/25 02:39 Dose: 750 mg Documented By: AMANUEL Dextrose (Dextrose 50 % 25 Gm/50 Ml Syringe) 25 gm IVPUSH Q15M PRN; Protocol PRN Reason: per Hypoglycemia Standing Ord. Dextrose (Dextrose 50 % 25 Gm/50 Ml Syringe) 25 gm IVPUSH Q15M PRN; Protocol PRN Reason: per Hypoglycemia Standing Ord. Digoxin (Digoxin 0.125 Mg Tablet) 0.125 mg PO DAILY [facility]; Protocol Last Admin: 08/16/25 09:03 Dose: 0.125 mg Documented By: VIC Glucose (Glucose Gel 15 Gm Gel..Gram.) 15 gm PO Q15M PRN; Protocol PRN Reason: per Hypoglycemia Standing Ord. Glucose (Glucose Gel 15 Gm Gel..Gram.) 15 gm PO Q15M PRN; Protocol PRN Reason: per Hypoglycemia Standing Ord. Insulin Human Lispro (Insulin Lispro 100 Unit/Ml 3 Ml Vial) 0 unit SUBCUT QIDACHS [facility]; Protocol Last Admin: 08/16/25 20:26 Dose: Not Given Documented By: SILVIO Non-Admin Reason: No Insulin Coverage Magnesium Hydroxide (Milk Of Magnesia 30 Ml Oral.Susp) 30 ml PO DAILY PRN PRN Reason: Constipation Last Admin: 08/03/25 07:47 Dose: 30 ml Documented By: ERICH Melatonin (Melatonin 3 Mg Tablet) 6 mg PO BEDTIME PRN PRN Reason: Insomnia Metoclopramide HCl (Metoclopramide Hcl 10 Mg/2 Ml Vial) 5 mg IVPUSH Q6H PRN PRN Reason: Nausea and Vomiting Last Admin: 08/12/25 22:13 Dose: 5 mg Documented By: SUSAN Metoprolol Succinate (Metoprolol Succinate Er 50 Mg Tab.Er.24h) 50 mg PO BID [facility]; Protocol Last Admin: 08/16/25 20:24 Dose: 50 mg Documented By: SILVIO Metoprolol Tartrate (Metoprolol Tartrate 5 Mg/5 Ml Vial) 5 mg IVPUSH Q6H PRN; Protocol PRN Reason: HR>90 Last Admin: 08/12/25 09:55 Dose: 5 mg Documented By: LETY Morphine Sulfate (Morphine Sulfate 4 Mg/Ml Cartridge) 2 mg IVPUSH Q4H PRN; Protocol PRN Reason: Pain, Severe (Pain Scale 7-10) Last Admin: 08/17/25 03:06 Dose: 2 mg Documented By: SILVIO Omeprazole (Omeprazole 20 Mg Capsule.Dr) 20 mg PO DAILY@0630 [facility] Last Admin: 08/17/25 06:12 Dose: 20 mg Documented By: SILVIO Ondansetron HCl (Ondansetron Hcl 4 Mg/2 Ml Vial) 4 mg IVPUSH Q8H PRN PRN Reason: Nausea and Vomiting Last Admin: 08/12/25 05:07 Dose: 4 mg Documented By: KIERAN Sodium Chloride (0.9 % Sodium Chloride Flush 3 Ml Syringe) 3 ml IVFLUSH QSHIFT [facility] Last Admin: 08/16/25 20:27 Dose: 3 ml Documented By: SILVIO <Kerry Machuca - Last Filed: 08/17/25 07:00> Labs CBC & Chem 7: 08/09/25 07:00 08/14/25 06:31 <Kerry Machuca - Last Filed: 08/17/25 07:00> Labs: Laboratory Results - last 24 hr 08/16/25 08/16/25 08/16/25 07:34 12:00 16:03 POC Glucose 103 156 H 155 H 08/16/25 20:01 POC Glucose 124 H <Kerry Machuca - Last Filed: 08/17/25 07:00> Procedures Date of Service Date of Service: 08/17/25 <Kerry Machuca - Last Filed: 08/17/25 07:00> 08/17/25 <Char Durand PA-C - Last Filed: 08/17/25 08:00> 08/18/25 <Roosevelt Beebe MD - Last Filed: 08/18/25 14:36> Progress Note: A&P Assessment and plan (1) Diverticulitis of intestine with abscess: Status: Acute <Kerry Machuca - Last Filed: 08/17/25 07:00> Assessment and Plan: Agree with above Seen and examined independently <Roosevelt Beebe MD - Last Filed: 08/18/25 14:36> (2) S/P colostomy: Status: Acute <Kerry Machuca - Last Filed: 08/17/25 07:00> Assessment and Plan: POD #10 s/p diverting loop colostomy Patient is doing well overall Unremarkable abdominal exam Ostomy with good output, dressings clean, dry and intact Encourage continued OOB and incentive spirometry Patient will be sent to rehab <Kerry Machuca - Last Filed: 08/17/25 07:00> s/p diverting loop colostomy Patient is doing well overall Ostomy pink, good output, incisions clean Encourage continued OOB and incentive spirometry Continues to complain of incisional pain, encouraged use of oral analgesics to control instead of IV Continue protein supplements until oral intake increased Rehab when medically cleared <Char Durand PA-C - Last Filed: 08/17/25 08:00> Time Spent With Patient Time: Total time managing care of this patient today ____ minutes. <Kerry Machuca - Last Filed: 08/17/25 07:00> Quality Stroke Does the patient have a stroke diagnosis?: No <Kerry Machuca - Last Filed: 08/17/25 07:00> VTE Prior VTE?: No <Kerry Machuca - Last Filed: 08/17/25 07:00> VTE Risk Level:: Medical - moderate - high <Kerry Machuca - Last Filed: 08/17/25 07:00> VTE Device Contraindication: Treatment Not Indicated <Kerry Machuca - Last Filed: 08/17/25 07:00> VTE Drug Contraindication: N/A - Med Ordered <Kerry Machuca - Last Filed: 08/17/25 07:00>
[2025-08-17 07:24] VITALS: BP 160/96; PULSE 113; RESP 16; TEMP 36.9; O2SAT 95
[2025-08-17 07:42] LABS: Glucose, Whole Blood 121 mg/dL (60-115)
[2025-08-17] MEDS: Metoprolol Succinate ER 50 MG TAB.ER.24H PO (08:19)
[2025-08-17] MEDS: oxyCODONE HCl Immed Release 5 MG TABLET PO (08:19)
[2025-08-17] MEDS: 0.9 % Sodium Chloride Flush 3 ML SYRINGE IVFLUSH (08:20)
--- NOTE | 2025-08-17 09:00 | HO.OSTOMY ---
Ostomy Consult: Follow up Teaching 84yr old [place] [facility] [place] see H&P for detailed history and admission.? Consult for new ostomy teaching. ?She had a Loop Colostomy creation on 08/07/[address] Beebe. ?Upon entry into patient's room, patient is sitting in recliner, alert and oriented x 3, currently has no complaints. She recalls my roll in her care and denies ostomy questions at this time. She reports she is discharging today to rehab to gain strength prior to going to home with her daughter. She denies participation in emptying her pouch at this time due to weakness. Pouch was noted to have silent leak and she was agreeable to pouch change. Midline incision with radha well approximated and no drainage noted. Removal of the pouch revealed a flush stoma with necrotic edges and slough to MCJ. When cleansing it was not to have creamy purulent material draining from around the stoma not the OS. Dr. Beebe aware and he reports no concern since drainage occurring. Dr. Perdomo notified as well. The Peristomal tissue is noted to have MASD - treated with Powder and skin barrier wipe. Convex pouch # [id number] used with brave barrier strip paste. Tolerated pouch change well. Patient reported having no questions at this time. 08/10/25 08/12/25 08/17/25 Plan to discuss the following steps: 1. Empty pouch before pouch change 2. Remove pouch using push/pull technique from top to bottom 3. Cleanse stoma and skin with tap water only - no soap or wipes 4. Pat dry 5. Measure stoma and cut new pouch no more than 1/8 inch larger than stoma and no smaller than stoma 6. If instructed by your ostomy nurse stretch barrier seal to the size of the stoma and press onto skin around stoma (up to the edge of the stoma but not onto the stoma) 7. Press the new pouch into place and hold for several seconds (close pouch tail) 8. Empty pouch when 1/3 to 1/2 full 9. Change pouch twice weekly on a schedule (for example, every Sunday and ) and as needed for any leaking (feels like intense itch or burn at edge of stoma) 10. May order pre-cut pouches (already cut to size of stoma) once stoma measures the same size consistently at about 8-12 weeks.
--- NOTE | 2025-08-17 09:51 | MHC.CM.PN ---
Addendum entered by Marianne Cervantes 08/17/25 10:39: [facility] REQUESTING EXTRA OSTOMY BAGS TO LAST UNTIL THEIR DELIVERY TOMORROW, RN AWARE Original Note: PT WAS MEDICALLY READY TO DC YESTERDAY, HOWEVER STR DID NOT HAVE A BED UNTIL THIS MORNING PT WAS PREBOOKED FOR 1100 TRANSPORT WITH [facility] NOTIFIED VIA T/C
--- NOTE | 2025-08-17 10:29 | PM.DS ---
DS: Providers Provider Date of Service: 08/17/25 Date of admission: 07/28/25 19:50 Date of discharge: 08/17/25 Primary care physician: Krista Allen MD Consults: 07/28/25 18:40 Consult to General Surgery Stat Consulting Provider: [facility] [place] General Surgeons Reason for consultation: Diverticulitis with abscess Has provider been notified: Yes 07/28/25 19:50 Consult to General Surgery Routine Consulting Provider: [facility] [place] General Surgeons Reason for consultation: Diverticulitis with suspected abscess formation 07/29/25 08:40 Consult to Urology Routine Consulting Provider: [facility] [place] Urology Services Reason for consultation: ?colovesical fistula Has provider been notified: No 08/07/25 15:45 Consult to Ostomy Care Routine DS: Diagnosis Discharge Diagnosis (1) Diverticulitis of intestine with abscess: Status: Acute (2) S/P colostomy: Status: Acute (3) Atrial fibrillation with RVR: Status: Resolved DS: Summary Hospital Course Hospital Course: From the history and physical by the admitting hospitalist, Pelon Mckeon MD, 07/28/25: '84-year-old female with a significant past medical history of atrial fibrillation on Eliquis, 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 The pain started almost a week ago but was stable and generalized but mainly in the lower abdomen. patient believed her symptoms were related to constipation due to chronic opioid use for malignancy-related pain. She reports her last bowel movement was earlier today and continues to pass flatus and burp. She denies nausea, vomiting, dysuria, hematuria, urinary frequency, fever, or chills. Past surgical history includes hysterectomy. In the emergency department, her abdominal pain improved and She remained hemodynamically stable with no chest pain or shortness of breath. CT abdomen and pelvis demonstrated findings concerning for diverticulitis versus colitis with a 2.5 cm collection suspicious for abscess formation. The case was discussed with Dr. Garcia, who recommended admission to the medical service for IV antibiotic therapy and further management. CT scan of abdomen showing: Diverticulitis or colitis of the sigmoid colon. 2.5 cm collection adjacent to the anterior sigmoid colon and posterior dome of the bladder suggestive of abscess or impending colovesicular fistula. There is adjacent wall thickening of the dome of the bladder and tiny amount of air in the bladder. There may also be involvement of the left adnexa. No free air. Fatty liver. Bilateral renal cysts. and Severe demineralization. Partially visualized but similar-appearing lytic lesion in the T9 vertebral body and left iliac crest. Increased moderate to severe T12 vertebral body compression fracture that may be recent. Mild L1-L3 vertebral body compression fractures not appreciably changed. Hospitalist team asked to admit her for monitoring and further work up.' 84yo F with pAF on apixaban, MM with bone metastases, DM2, and HLD; presented with abdominal pain, found to have acute diverticulitis with pelvic abscess and admitted to the hospitalist service. She underwent sigmoid loop colostomy + drainage of pelvic abscess 08/07/25. She was treated with piperacillin-tazobactam 08/06-08/14. She was placed on PPN. Gradually her diet was advanced with good functioning of the colostomy. She had some episodes of AF with RVR that resolved with resuming digoxin and metoprolol succinate. She was discharged to short-term rehabilitation and will need follow-up with [facility] [place] General Surgery in 1 week. Time Attestation Discharge Coordination Time (in mins): 40 Quality: Safe Use of Opioids Does Pt have an Active Cancer Diagnosis on the Problem List?: No Quality: Stroke Does the patient have a stroke diagnosis?: No Physical Exam Vital Signs: Vital Signs: Last Vital Signs Temp 98.5 F 08/17/25 07:24 Pulse 113 H 08/17/25 07:24 Resp 16 08/17/25 07:24 BP 160/96 H 08/17/25 07:24 Pulse Ox 95 08/17/25 07:24 O2 Del Method Room Air 08/17/25 07:24 O2 Flow Rate 6 08/07/25 14:54 BMI result Body Mass Index 22.7 Gen: in no acute distress HEENT: sclera anicteric, moist mucus membranes Neck: supple Lungs: clear to auscultation bilaterally Heart: regular rate and rhythm, no murmurs Abd: soft, colostomy with liquid brown stool Ext: no edema Skin: warm/well-perfused Neuro: alert and oriented x3, no focal findings Psych: appropriate affect DS: Data Data Completed and Pending Completed studies during hospitalization [Text1]: Laboratory Results WBC 14.4 X10*3/uL (4.8-10.8) H 08/09/25 07:00 RBC 3.89 X10*6/uL (4.20-5.50) L 08/09/25 07:00 Hgb 12.0 g/dl (12.0-16.0) 08/09/25 07:00 Hct 36.1 % (37.0-47.0) L 08/09/25 07:00 MCV 92.8 fL (80.0-98.0) 08/09/25 07:00 MCH 30.8 pg (27.0-33.0) 08/09/25 07:00 MCHC 33.2 g/dl (31.0-35.0) 08/09/25 07:00 RDW 14.6 % (11.0-16.0) 08/09/25 07:00 Plt Count 269 X10*3/uL (160-400) 08/09/25 07:00 MPV 10.5 fL (9.4-12.3) 08/09/25 07:00 Immature Gran % (Auto) 0.9 % (0.0-0.4) H 08/08/25 06:46 Neut % (Auto) 87.5 % (45-73) H 08/08/25 06:46 Lymph % (Auto) 4.8 % (20-40) L 08/08/25 06:46 Zapata % (Auto) 6.3 % (2-11) 08/08/25 06:46 Eos % (Auto) 0.0 % (0-4) 08/08/25 06:46 Baso % (Auto) 0.5 % (0-2) 08/08/25 06:46 Lymph # (Auto) 0.6 X10*3/uL (1.2-4.9) L 08/08/25 06:46 Zapata # (Auto) 0.7 X10*3/uL (0.1-1.2) 08/08/25 06:46 Eos # (Auto) 0.0 X10*3/uL (0.0-0.4) 08/08/25 06:46 Baso # (Auto) 0.1 X10*3/uL (0.0-0.2) 08/08/25 06:46 Abs Immat Gran (auto) 0.10 X10*3/uL (0.00-0.03) H 08/08/25 06:46 Absolute Neuts (auto) 10.2 x10*3/uL (2.0-8.3) H 08/08/25 06:46 Absolute Nucleated RBC 0.000 X10*3/uL (0.0-0.012) 08/09/25 07:00 Nucleated RBC % (auto) 0.0 /100WBC (0.0-0.2) 08/09/25 07:00 Smear Tech's Comments VERIFIED 08/08/25 06:46 Hold Purple Top SEE NOTE 08/14/25 06:31 PT 23.3 SEC (11.2-13.5) H 07/28/25 12:11 INR 1.9 (0.9-1.1) H 07/28/25 12:11 Sodium 136 mmol/L (135-145) 08/14/25 06:31 Potassium 4.0 mmol/L (3.3-5.1) D 08/14/25 06:31 Chloride 103 mmol/L (96-108) 08/14/25 06:31 Carbon Dioxide 24 mmol/L (22-29) 08/14/25 06:31 Anion Gap 13 (12-20) 08/14/25 06:31 BUN 14 mg/dL (9-16) 08/14/25 06:31 Creatinine 0.44 mg/dL (0.5-1.4) L 08/14/25 06:31 Estim Creat Clear Calc 87.5 08/14/25 06:31 Estimated GFR > 60 08/14/25 06:31 POC Glucose 121 mg/dL (60-115) H 08/17/25 07:20 Random Glucose 144 mg/dL (60-115) H 08/14/25 06:31 Estimat Average Glucose 131 mg/dL 08/08/25 06:46 Hemoglobin A1c % 6.2 % (<6.0) H 08/08/25 06:46 Lactic Acid 1.6 mmol/L (0.5-2.0) 07/28/25 18:31 Calcium 8.4 mg/dL (8.4-10.2) 08/14/25 06:31 Phosphorus 3.2 mg/dL (2.7-4.5) 08/14/25 06:31 Magnesium 1.8 mg/dL (1.6-2.6) 08/14/25 06:31 Total Bilirubin 0.5 mg/dL (0.0-1.0) 08/14/25 06:31 Direct Bilirubin 0.4 mg/dL (0.0-0.5) 08/07/25 05:46 AST 56 U/L (5-31) H 08/14/25 06:31 ALT 60 U/L (0-31) H 08/14/25 06:31 Alkaline Phosphatase 210 U/L (39-117) H 08/14/25 06:31 Troponin I High Sens 9.8 ng/L (<3.5-17.0) D 07/28/25 12:11 Total Protein 5.4 g/dL (6.5-8.0) L 08/14/25 06:31 Albumin 2.7 g/dL (3.5-5.0) L 08/14/25 06:31 Triglycerides 64 mg/dL (<150) 08/08/25 06:46 Urine Color Yellow 07/28/25 18:15 Urine Appearance Clear 07/28/25 18:15 Urine pH 6.5 (5.0-9.0) 07/28/25 18:15 Ur Specific [facility] >= 1.030 (1.005-1.025) H 07/28/25 18:15 Urine Protein Negative mg/dL (Neg-Trace) 07/28/25 18:15 Urine Glucose (UA) 500 mg/dL (Negative) H 07/28/25 18:15 Urine Ketones 15 mg/dL (Negative) 07/28/25 18:15 Urine Blood Negative (Negative) 07/28/25 18:15 Urine Nitrite Positive (Negative) H 07/28/25 18:15 Ur Leukocyte Esterase Negative (Negative) 07/28/25 18:15 Urine RBC 0-2 /HPF (0-2) 07/28/25 18:15 Urine WBC 6-10 /HPF (0-5) H 07/28/25 18:15 Ur Squamous Epith Cells 0-2 /HPF (0-2) 07/28/25 18:15 Urine Bacteria 4+ (None Seen) 07/28/25 18:15 Hyaline Casts 0-2 /LPF (0-2) 07/28/25 18:15 Blood Type O Positive 08/04/25 15:06 Antibody Screen NEGATIVE 08/04/25 15:06 Impressions Abdomen/Pelvis CT 08/06/25 09:06 IMPRESSION: 1. Persistent marked wall thickening of the sigmoid colon resulting in colonic obstruction. Neoplasm is not excluded. 2. 2.9 x 1.8 x 1.8 cm rim-enhancing fluid collection between the urinary bladder and the sigmoid colon compatible with an abscess without significant change. 3. Small right pleural effusion. 4. Diffuse lytic lesions in the visualized osseous structures compatible with metastatic disease or myeloma. 5. Findings were sent to Char Durand by secure text message on 08/06/2025 at 10:44 AM. Electronically signed by: Jae Parry MD 08/06/2025 10:48 AM [facility] [place]charge Plan Discharge Anticipated Discharge Date/Time: 08/17/25 10:24 Patient Disposition: Xfer [facility] Discharge Diagnosis: Diverticulitis and abscess Referrals: [facility] [Other] Referral Note: [facility] [Outside[facility] - 3-5 Days Referral Note: Resume services Krista Allen MD [Primary Care Provider, Internal Medicine] - 1 Week Roosevelt Beebe MD [Physician, General Surgery] - 1 Week Referral Note: diverticulitis, colovesical fistula Discharge Medications: Continued apixaban 5 mg tablet 5 mg PO BID Qty: 180 3RF Jardiance 10 mg tablet 10 mg PO DAILY Qty: 90 1RF omeprazole 20 mg Capsule,Delayed Release(Dr/Ec) 20 mg PO DAILY@0630 1RF atorvastatin [Lipitor] 10 mg tablet 10 mg PO BEDTIME Culturelle 10 billion cell Capsule 1 cap PO BID metoprolol succinate 50 mg tablet extended release 24 hr 50 mg PO BID furosemide [Lasix] 20 mg tablet 40 mg PO DAILY PRN (Reason: Fluid Retention) oxycodone 5 mg Tablet 5 mg PO Q8H PRN (Reason: back pain) Qty: 30 0RF Rx Instructions: Partial Fill upon patient request. ondansetron 8 mg Tablet,Disintegrating 8 mg PO Q8H PRN (Reason: Nausea And Vomiting) Qty: 30 3RF digoxin 125 mcg (0.125 mg) tablet 0.125 mg PO DAILY Qty: 30 0RF Discharge Orders: Discharge Order (Routine); Ordered 08/17/25 Ordered By: Paulina Perdomo Diet: Advance to usual diet Activity on Discharge: As tolerated Stand Alone Forms: Patient Portal Discharge page Print Language: Australian Activity Restrictions/Additional Instructions: If the incision area is tender, you may apply an ice pack for short intervals (No more than 20 minutes on, followed by at least 20 minutes off). Do not apply heat. Do not use creams, lotions, or topical antibiotics. These can cause infection or allergic reaction. Ok to shower. You have radha closing your incision and these will be removed approximately 10-14 days after surgery. NO HEAVY LIFTING (>10lbs) or strenuous activity. Follow up in office in 1 week. ([phone]) Call Your Doctor If: -Your temperature exceeds 101.5? F -You experience excessive pain or swelling -You have an unexpected reaction to medication -You have excessive bleeding -You experience continued vomiting/nausea -Your incision begins to separate -Your incision shows signs of infection such as increased redness, swelling, excessive pain, drainage (light blood or clear fluid is normal) or heat Ostomy recommendations: 1. Empty pouch before pouch change 2. Remove pouch using push/pull technique from top to bottom 3. Cleanse stoma and skin with tap water only - no soap or baby wipes 4. Pat dry 5. Measure stoma and cut new pouch no more than 1/8 inch larger than stoma and no smaller than stoma 6. If instructed by your ostomy nurse stretch barrier seal to the size of the stoma and press onto skin around stoma (up to the edge of the stoma but not onto the stoma) 7. Press the new pouch into place and hold for several minutes (close pouch tail) 8. Empty pouch when 1/3 to 1/2 full 9. Change pouch twice weekly on a schedule (for example, every Sunday and ) and as needed for any leaking (feels like intense itch or burn at edge of stoma) Care Plan Goals: recovery from infection and surgery Health Concerns: Diverticulitis and abscess Plan of Treatment: Completed antibiotics in hospital Ostomy care as above Pain control with acetaminophen and oxycodone Follow up with General Surgery in 1 week Please follow up with your primary care doctor within 1 week of discharge from SNF. Return to the hospital if you experience recurrent or worsening symptoms. Assessment: See Discharge Summary.
[2025-08-17 10:53] VITALS: BP 131/67; PULSE 97; RESP 18; O2SAT 95
== END 2025-08-17 11:09 | disposition skilled nursing facility (03) | DRG 330 ==
LOC: HO.ED 19:09 → HO.EDOVER 19:58 → HO.S3 21:08 → HO.IMC 08-07 14:39 → HO.S3 08-14 11:54
PROVIDERS: Hospitalist; Internal Medicine; Physician Assistant Surgical; Surgery; Admitting Provider Student in an Organized Health Care Education/Training Program; Emergency Provider Emergency Medicine; PCP Internal Medicine; Visit Provider Family Medicine
PROC: 0DTE0ZZ Resection of Large Intestine, Open Approach (ICD-10-PCS; principal; 2025-08-07 11:40)
DX: K57.20 Diverticulitis of large intestine with perforation and abscess without bleeding (principal); C79.51 Secondary malignant neoplasm of bone; C90.00 Multiple myeloma not having achieved remission; E87.1 Hypo-osmolality and hyponatremia; I50.32 Chronic diastolic (congestive) heart failure; N32.1 Vesicointestinal fistula; K51.514 Left sided colitis with abscess; K51.512 Left sided colitis with intestinal obstruction; I11.0 Hypertensive heart disease with heart failure; K21.9 Gastro-esophageal reflux disease without esophagitis; E78.5 Hyperlipidemia, unspecified; G89.3 Neoplasm related pain (acute) (chronic); E11.9 Type 2 diabetes mellitus without complications; E87.6 Hypokalemia; G89.18 Other acute postprocedural pain; K76.0 Fatty (change of) liver, not elsewhere classified; D69.59 Other secondary thrombocytopenia; T45.1X5A Adverse effect of antineoplastic and immunosuppressive drugs, initial encounter; Z79.01 Long term (current) use of anticoagulants; Z79.891 Long term (current) use of opiate analgesic; Z79.899 Other long term (current) drug therapy
CPT/HCPCS: 36415; 74177; 80048; 80053; 80076; 81001; 82040; 82947; 83036; 83605; 83735; 84100; 84478; 84484; 85014; 85018; 85025; 85027; 85049; 85610; 86850; 86900; 86901; 87040; 87086; 87088; 87186; 93005; 97116; 97162; 97530; 99285; J0131; J0616; J1100; J1171; J1644; J1650; J1805; J1836; J1956; J2003; J2250; J2270; J2371; J2405; J2470; J2543; J2765; J3010; J3480; J7120; Q9967

== ENCOUNTER → 2025-07-28 12:10 | Outpatient (BNV) | payer MEDICARE, OTHER, SELFPAY | PROVIDERS: Emergency Provider Emergency Medicine; PCP Internal Medicine; Visit Provider Internal Medicine Cardiovascular Disease | DX: I48.91 Unspecified atrial fibrillation (principal); I45.10 Unspecified right bundle-branch block | CPT/HCPCS: 93010 ==

== ENCOUNTER → 2025-07-28 15:57 | Outpatient (BNV) | payer MEDICARE, OTHER, SELFPAY | PROVIDERS: Emergency Provider Emergency Medicine; PCP Internal Medicine; Visit Provider Radiology Diagnostic Radiology | DX: N32.89 Other specified disorders of bladder (principal); Z85.820 Personal history of malignant melanoma of skin | CPT/HCPCS: 74177 ==

== ENCOUNTER 2025-07-28 19:50 | Outpatient (BNV) | payer MEDICARE, OTHER, SELFPAY | END 2025-08-02 14:39 | PROVIDERS: Admitting Provider Student in an Organized Health Care Education/Training Program; Emergency Provider Emergency Medicine; PCP Internal Medicine; Visit Provider Radiology Diagnostic Radiology | DX: K57.80 Diverticulitis of intestine, part unspecified, with perforation and abscess without bleeding (principal) | CPT/HCPCS: 74177 ==

== ENCOUNTER 2025-07-28 19:50 | Outpatient (BNV) | payer MEDICARE, OTHER, SELFPAY | END 2025-08-06 07:55 | PROVIDERS: Admitting Provider Student in an Organized Health Care Education/Training Program; Emergency Provider Emergency Medicine; PCP Internal Medicine; Visit Provider Radiology Diagnostic Radiology | DX: K56.609 Unspecified intestinal obstruction, unspecified as to partial versus complete obstruction (principal); I31.39 Other pericardial effusion (noninflammatory); M89.9 Disorder of bone, unspecified | CPT/HCPCS: 74177 ==

== ENCOUNTER → 2025-07-28 19:50 | Outpatient (BNV) | payer MEDICARE, OTHER, SELFPAY | PROVIDERS: Admitting Provider Student in an Organized Health Care Education/Training Program; Emergency Provider Emergency Medicine; PCP Internal Medicine; Visit Provider Urology | DX: N32.1 Vesicointestinal fistula (principal) | CPT/HCPCS: 99222 ==

== ENCOUNTER → 2025-07-28 19:50 | Outpatient (BNV) | payer MEDICARE, OTHER, SELFPAY | PROVIDERS: Admitting Provider Student in an Organized Health Care Education/Training Program; Emergency Provider Emergency Medicine; PCP Internal Medicine; Visit Provider Physician Assistant Surgical | DX: K57.80 Diverticulitis of intestine, part unspecified, with perforation and abscess without bleeding (principal) | CPT/HCPCS: 99222; 99232; 99499 ==

== ENCOUNTER → 2025-07-28 19:50 | Outpatient (BNV) | payer MEDICARE, OTHER, SELFPAY | PROVIDERS: Admitting Provider Student in an Organized Health Care Education/Training Program; Emergency Provider Emergency Medicine; PCP Internal Medicine; Visit Provider Student in an Organized Health Care Education/Training Program | DX: K57.80 Diverticulitis of intestine, part unspecified, with perforation and abscess without bleeding (principal) | CPT/HCPCS: 99232 ==

== ENCOUNTER 2025-08-24 15:54 | Outpatient (AMB) | payer MEDICARE, OTHER, SELFPAY ==
--- NOTE | 2025-08-24 15:56 | A.OFFVIS_ITS ---
Vital Signs 08/24/25 16:11 Height 5 ft 6 in Weight 136 lb BMI 21.9 BP 147/91 H Blood Pressure Location Lt brachial Position Sitting Pulse 80 Intake Visit Reasons: s/p Colon rescection Lap Intake Note: Patient presents for a post-op assessment status post Hand assisted laparoscopic loop sigmoid colostomy, extensive lysis of adhesions, drainage of pelvic abscess. Pt c/o; no complaints. Affirmative Action Officer Required: No Accompanied by: Family/Other Allergies hydralazine Allergy (Verified 08/24/25 16:11) Unknown hydrochlorothiazide Adverse Reaction (Intermediate, Verified 08/24/25 16:11) Palpitations amlodipine Adverse Reaction (Verified 08/24/25 16:11) DIZZINESS sotalol Adverse Reaction (Verified 08/24/25 16:11) Palpitations HPI HPI s/p Colon rescection Lap: Details: She had undergone hand assisted laparoscopic diverting loop sigmoid colostomy with drainage of pelvic abscess last 08/07/2025. She is currently in a rehab facility. Her main complaint now is that she has had multiple episodes of leakage from the stoma site with the appliance. She therefore has had some skin breakdown on the skin in view of exposure to stoma contents. She otherwise has good stoma function. She does describe some periodic crampy abdominal pain otherwise has some adequate oral intake [facility] Medical History GIB (gastrointestinal bleeding) Persistent atrial fibrillation Colostomy in place CHF (congestive heart failure) Paroxysmal atrial fibrillation Atrial fibrillation with RVR Hyponatremia DM type 2 (diabetes mellitus, type 2) Spinal stenosis 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 Lesion of bone of lumbosacral spine Multiple myeloma Lower back pain Impacted cerumen of both ears Dysplastic nevus Vitamin D deficiency Annual physical exam Palpitations Leukoplakia of tongue Hyperlipidemia Peripheral neuropathy Dysuria Surgical History Hx of surgical procedure (~08/07/25) H/O arthroscopy of knee H/O varicose vein ligation H/O: hysterectomy H/O mastectomy H/O colonoscopy Family History Father No problems noted. Mother No problems noted. Son Diabetes Social History Household Members: None Household Members Other:: d/c from [facility] 05/06 staying w/ daughter Barbara at this time. Housing: House Are you a primary home health care case manager to a significant other at home: No Do you presently have visiting nurse or other home services: No Alcohol intake: former Comment: reports discomfort Patient Tobacco Use Status: Never used Tobacco e-Cigarette/Vaping Use: Never Used Second Hand Smoke Exposure: No Advance Directives Date on File: 12/10/24 service: No Current occupational status: retired Gender identity: Female Cognitive needs: No Hearing needs: No Vision needs: Yes Review of Systems Const Denies chills and Denies fever(s) Physical Exam Vital Signs: Last Vital Signs Pulse 80 08/24/25 16:11 BP 147/91 H 08/24/25 16:11 BMI result Body Mass Index 21.9 Const General: comfortable and no acute distress Resp Effort & Inspection: normal respiratory effort GI Other: All incisions are well healed, stoma functioning well but with peristomal superficial skin breakdown Palpation (GI): Soft to palpation, not firm, nontender and no guarding Assessment & Plan Assessment & Plan (1) Colostomy in place: Code(s): Z93.3 - Colostomy status Category: Medical Plan: She had undergone hand assisted laparoscopic diverting loop sigmoid colostomy and drainage of a pelvic abscess for appeared to be diverticular disease with obstruction last August 07 . Her incision is well healed. Her stoma is actually functioning well. She has some superficial skin breakdown in view of frequent leakage of stoma contents through her appliance. Avi, our nurse in the office, we educated her on care for this particular problem. She was instructed on applying stoma powder and skin prep in multiple layers prior to placing a convex shape appliance I will see her again in the office in about 2 weeks to see how she is doing. In the meantime, I have removed all her skin radha from her midline incision. Coding Level of Care Code Global (30855) Diagnoses Colostomy in place Z93.3
[2025-08-24 16:11] VITALS: BP 147/91; PULSE 80; BMI 21.9
--- OUTSIDE RECORDS SUMMARY | 2025-08-25 01:34 | XMS_ITS | Encounter Summary ---
Author Organization [facility] Address [address] [place] [address] Care Team Providers [employer] Floorperson Name Role Phone Maroi Berrios MD Primary Care Provider [phone] Encounter Details Date Type Department Care Team (Late st Contact Info) Description 04/06/2025 Lab Requisition [facility] Lab [address] [facility] [place] [address] Mario Berrios MD [address] [place] [id number] Essential (primary) hypertension Social History Tobacco Use [...] LAB CHEMISTRY METHOD 04/06/2025 1:16 PM T [facility] Potassium 5.8(H) 3.5 - 5.5 mmol/L LAB CHEMISTRY METHOD 04/06/2025 1:16 PM EDT [facility] Comment:Hemolysis present Chloride 96 96 - 110 mmol/L LAB CHEMISTRY METHOD 04/06/2025 1:16 PM [facility] CO2 24 21 - 32 mmol/L LAB CHEMISTRY METHOD 04/06/2025 1:16 PM [facility] Anion Gap 10 3 - 11 LAB CHEMISTRY METHOD 04/06/2025 1:16 PM [facility] Glucose 97 70 - 100 mg/dL LAB CHEMISTRY METHOD 04/06/2025 1:16 PM [facility] BUN 20 5 - 25 mg/dL LAB CHEMISTRY METHOD 04/06/2025 1:16 PM [facility] Creatinine 0.65 0.50 - 1.10 mg/dL LAB CHEMISTRY METHOD 04/06/2025 1:16 PM [facility] eGFR 86 >=60 mL/min/1. 73m2 LAB CHEMISTRY METHOD 04/06/2025 1:16 PM [facility] Comment:Calculation based on the Chronic Kidney Disease Epidemiology Collaboration (CKD-EPI) equation refit without adjustment for race. BUN/Creatinine Ratio 30.8 LAB CHEMISTRY METHOD 04/06/2025 1:16 PM [facility] Calcium 8.6 8.5 - 10.5 mg/dL LAB CHEMISTRY METHOD 04/06/2025 1:16 PM [facility] AST (SGOT) 28 10 - 42 unit/L LAB CHEMISTRY METHOD 04/06/2025 1:16 PM [facility] Comment:Hemolysis present ALT (SGPT) 34 10 - 60 unit/L LAB CHEMISTRY METHOD 04/06/2025 1:16 PM [facility] Alkaline Phosphatase 78 42 - 121 unit/L LAB CHEMISTRY METHOD 04/06/2025 1:16 PM [facility] Total Protein 5.7(L) 6.0 - 8.0 g/dL LAB CHEMISTRY METHOD 04/06/2025 1:16 PM [facility] Albumin 3.0(L) 3.2 - 5.0 g/dL LAB CHEMISTRY METHOD 04/06/2025 1:16 PM EDT [facility] Total Bilirubin 0.8 0.0 - 1.4 mg/dL LAB CHEMISTRY METHOD 04/06/2025 1:16 PM EDT [facility] Blood Venous blood specimen / Unknown Venipuncture / Unknown 04/06/2025 5:18 AM EDT 04/06/2025 10:40 AM EDT us Mario Berrios MD LAB BLOOD ORDERABLES Final Resu lt [facility] [address] [place] [address], [place] [phone] * (ABNORMAL) Complete blood count (04/06/2025 5:18 AM EDT) WBC 10.8 4.8 - 10.8 K/mcL LAB HEMETOLOGY METHOD 04/06/2025 11:40 AM [facility] RBC 4.00 3.80 - 4.80 M/mcL LAB HEMETOLOGY METHOD 04/06/2025 11:40 AM [facility] Hemoglobin 12.4 11.5 - 16.0 g/dL LAB HEMETOLOGY METHOD 04/06/2025 11:40 AM [facility] Hematocrit 38.3 35.0 - 47.0 % LAB HEMETOLOGY METHOD 04/06/2025 11:40 AM T [facility] MCV 95.8 79.0 - 98.0 FL LAB HEMETOLOGY METHOD 04/06/2025 11:40 AM [facility] MCH 31.0 27.0 - 32.0 pcg LAB HEMETOLOGY METHOD 04/06/2025 11:40 AM [facility] MCHC 32.4 32.0 - 37.0 g/dL LAB HEMETOLOGY METHOD 04/06/2025 11:40 AM EDT [facility] RDW 15.3(H) 11.0 - 15.0 % LAB HEMETOLOGY METHOD 04/06/2025 11:40 AM EDT [facility] Platelets 166 130 - 400 K/mcL LAB HEMETOLOGY METHOD 04/06/2025 11:40 AM EDT [facility] MPV 12.4(H) 7.0 - 11.0 FL LAB HEMETOLOGY METHOD 04/06/2025 11:40 AM EDT [facility] NRBC 0.0 <1.0 % LAB HEMETOLOGY METHOD 04/06/2025 11:40 AM EDT [facility] NRBC Absolute 0.00 <0.10 K/mcL LAB HEMETOLOGY METHOD 04/06/2025 11:40 AM EDT [facility] Blood Venous blood specimen / Unknown Venipuncture / Unknown 04/06/2025 5:18 AM EDT 04/06/2025 10:40 AM EDT Mario Berrios MD LAB BLOOD ORDERABLES Final Resu lt [facility] [address] [place] [address], documented in this encounter Visit Diagnoses Diagnosis Essential (primary) hypertension Unspecified essential hypertension documented in this encounter Care Teams [employer] Floorperson Relationship Specialty Start Date End Date Mario Berrios MD [address] [place] [phone] PCP - General Internal Medicine 04/04/25 documented as of this encounter
--- OUTSIDE RECORDS SUMMARY | 2025-08-25 01:34 | XMS_ITS | Encounter Summary ---
Author Organization [facility] Address [address] [place] [address] Care Team Providers Care Automotive Upholsterer Name Role Phone Mario Berrios MD Primary Care Provider [phone] Encounter Details Date Type Department Care Team (Late st Contact Info) Description 04/08/2025 Lab Requisition [facility] - Main Lab [address] [facility] [place] [address] Mario Berrios MD [address] [place] [address] [phone] Essential (primary) hypertension Social History Tobacco Use [...] AM EDT) WBC 10.1 4.8 - 10.8 K/[facility] LAB HEMETOLOGY METHOD 04/09/2025 11:39 AM EDT [facility] LAB RBC 3.90 3.80 - 4.80 M/[facility] LAB HEMETOLOGY METHOD 04/09/2025 11:39 AM EDT [facility] LAB Hemoglobin 11.9 11.5 - 16.0 g/dL LAB HEMETOLOGY METHOD 04/09/2025 11:39 AM [facility] LAB Hematocrit 37.5 35.0 - 47.0 % LAB HEMETOLOGY METHOD 04/09/2025 11:39 AM [facility] LAB MCV 95.4 79.0 - 98.0 FL LAB HEMETOLOGY METHOD 04/09/2025 11:39 AM [facility] LAB MCH 30.3 27.0 - 32.0 pcg LAB HEMETOLOGY METHOD 04/09/2025 11:39 AM [facility] LAB MCHC 31.7(L) 32.0 - 37.0 g/dL LAB HEMETOLOGY METHOD 04/09/2025 11:39 AM [facility] LAB RDW 15.8(H) 11.0 - 15.0 % LAB HEMETOLOGY METHOD 04/09/2025 11:39 AM [facility] LAB Platelets 127(L) 130 - 400 K/mcL LAB HEMETOLOGY METHOD 04/09/2025 11:39 AM [facility] LAB MPV 11.8(H) 7.0 - 11.0 FL LAB HEMETOLOGY METHOD 04/09/2025 11:39 AM [facility] LAB NRBC 0.0 <1.0 % LAB HEMETOLOGY METHOD 04/09/2025 11:39 AM [facility] LAB NRBC Absolute 0.00 <0.10 K/mcL LAB HEMETOLOGY METHOD 04/09/2025 11:39 AM [facility] LAB Blood Venous blood specimen / Unknown Venipuncture / Unknown 04/09/2025 5:47 AM EDT 04/09/2025 11:23 AM EDT Mario Berrios MD LAB BLOOD ORDERABLES Final Resu lt [facility] LAB [address] [place] [address], [place] [phone] * (ABNORMAL) Basic metabolic panel (04/09/2025 5:47 AM EDT) Sodium 133 133 - 145 mmol/L LAB CHEMISTRY METHOD 04/09/2025 12:06 PM [facility] LAB Potassium 4.9 3.5 - 5.5 mmol/L LAB CHEMISTRY METHOD 04/09/2025 12:06 PM [facility] LAB Comment:Hemolysis present Chloride 101 96 - 110 mmol/L LAB CHEMISTRY METHOD 04/09/2025 12:06 PM [facility] LAB CO2 26 21 - 32 mmol/L LAB CHEMISTRY METHOD 04/09/2025 12:06 PM [facility] LAB Anion Gap 6 3 - 11 LAB CHEMISTRY METHOD 04/09/2025 12:06 PM [facility] LAB Glucose 97 70 - 100 mg/dL LAB CHEMISTRY METHOD 04/09/2025 12:06 PM [facility] LAB BUN 17 5 - 25 mg/dL LAB CHEMISTRY METHOD 04/09/2025 12:06 PM [facility] LAB Creatinine 0.61 0.50 - 1.10 mg/dL LAB CHEMISTRY METHOD 04/09/2025 12:06 PM [facility] LAB eGFR 88 >=60 mL/min/1. 73m2 LAB CHEMISTRY METHOD 04/09/2025 12:06 PM [facility] LAB Comment:Calculation based on the Chronic Kidney Disease Epidemiology Collaboration (CKD-EPI) equation refit without adjustment for race. BUN/Creatinine Ratio 27.9 LAB CHEMISTRY METHOD 04/09/2025 12:06 PM [facility] LAB Calcium 8.0(L) 8.5 - 10.5 mg/dL LAB CHEMISTRY METHOD 04/09/2025 12:06 PM EDT [facility] Blood Venous blood specimen / Unknown Venipuncture / Unknown 04/09/2025 5:47 AM EDT 04/09/2025 11:23 AM EDT Mario Berrios MD LAB BLOOD ORDERABLES Final Resu lt [facility] [address] [place] [address], documented in this encounter Visit Diagnoses Diagnosis Essential (primary) hypertension Unspecified essential hypertension documented in this encounter Care Teams Automotive Upholsterer Relationship Specialty Start Date End Date Mario Berrios MD [address] [place] [address] PCP - General Internal Medicine 04/04/25 documented as of this encounter
--- OUTSIDE RECORDS SUMMARY | 2025-08-25 01:34 | XMS_ITS | Clinical Summary ---
Author Organization [facility] Address [address] [place] [address] Phone Care Team Providers Care Relay Operator Name Role Phone Pcp, Unknown Primary [...] EDT) SODIUM 131(L) 133 - 146 mmol/L [facility] POTASSIUM 4.6 3.3 - 5.1 mmol/L [facility] CHLORIDE 92(L) 96 - 108 mmol/L [facility] CO2 30 21 - 35 mmol/L [facility] BUN 30(H) 6 - 19 mg/dL [facility] CREATININE 0.50 0.5 - 1.5 mg/dL [facility] GLUCOSE 123(H) 70 - 99 mg/dL [facility] ALBUMIN 3.3(L) 3.9 - 4.8 g/dL [facility] TOTAL PROTEIN 5.4(L) 6.5 - 8.0 g/dL [facility] CALCIUM 8.5 8.4 - 10.3 mg/dL [facility] ALKALINE PHOSPHATASE 53 39 - 117 U/L [facility] TOTAL BILIRUBIN 1.8(H) 0.0 - 1.2 mg/dL [facility] AST 14 0 - 37 U/L [facility] ALT 32 0 - 40 U/L [facility] GLOBULIN 2.1 1 - 4.8 g/dL [facility] EGFR 92 >59 mL/min/1.7 3m2 [facility] Comment:Estimated glomerular filtration rate calculated using the CKD-EPI refit equation. ANION GAP 14 10 - 20 mmol/L [facility] 03/30/2025 5:51 AM EDT 03/30/2025 10:16 AM EDT us Walt Cruz MD LAB BLOOD BKR ORDERABLES Final R esult [facility] [address] [place] [address] from Last 3 Months or Most Recently Relevant to Health Maintenance Insurance MEDICARE PART A & B [facility]PP[facility] [place]: [facility] [id number] [id number] MEDICARE PART A & B [facility] MEDIC[facility] ENHANCE SUPPLEMENT MEDICARE PART A & [facility]IC[facility] [facility] [facility] [place]: [facility] [id number] [place] [id number] MEDICARE PART A & B [facility] MEDICARE ENHANCE SUPPLEMENT MEDICARE PART A & B [facility] MEDICARE ENHANCE SUPPLEMENT MEDICARE PART A & B [facility] MEDICARE ENHANCE SUPPLEMENT Care Teams Relay Operator Relationship Specialty Start Date End Date Pcp, Unknown PCP - General 08/05/24 Additional Source Comments The information contained in this document represents components of the legal health record. It is not the complete legal health record.[facility]
--- OUTSIDE RECORDS SUMMARY | 2025-08-25 01:34 | XMS_ITS | Encounter Summary ---
Author Organization [facility] Address [address] [place] [address] Care Team Providers Care Coke Loader Name Role Phone Mario Berrios MD Primary Care Provider [phone] Encounter Details Date Type Department Care Team (Late st Contact Info) Description 04/22/2025 Lab Requisition [facility] - Main Lab [address] [facility] [place] [address] Mario Berrios MD [address] [place] [address] [phone] Essential (primary) hypertension Social History Tobacco Use [...] LAB CHEMISTRY METHOD 04/23/2025 10:52 AM EDT [facility] LAB Potassium 3.7 3.5 - 5.5 mmol/L LAB CHEMISTRY METHOD 04/23/2025 10:52 AM EDT [facility] LAB Chloride 95(L) [...] lt [facility] LAB [address] [place] [address], * (ABNORMAL) Complete blood count (04/23/2025 5:52 [...] MD LAB BLOOD ORDERABLES Final Resu lt [facility] ([facility]) [facility] [address] [place] [address], documented in this encounter Visit Diagnoses Diagnosis Essential (primary) hypertension Unspecified essential hypertension documented in this encounter Care Teams Coke Loader Relationship Specialty Start Date End Date Mario Berrios MD [address] [place] [address] PCP - General Internal Medicine 04/04/25 documented as of this encounter
--- OUTSIDE RECORDS SUMMARY | 2025-08-25 01:34 | XMS_ITS | Encounter Summary ---
Author Organization [facility] Address [address] [place] [address] Phone Care Team Providers Care Tube Inspector Name Role Phone Pcp, Unknown Primary Care Provider Unavailabl e Encounter Details Date Type Department Care Team (Late st Contact Info) Description 10/01/2024 Procedure Pass [facility] Endoscopy Admitting Dept Virtual Department [address] [place] [address] Social History Tobacco Use Types Packs/Day Years [...] on filedocumented in this encounter Care Teams Tube Inspector Relationship Specialty Start Date End Date Pcp, Unknown PCP - General 08/05/24 documented as of this encounter Additional Source Comments The information contained in this document represents components of the legal health record. It is not the complete legal health record.[facility]
--- OUTSIDE RECORDS SUMMARY | 2025-08-25 01:34 | XMS_ITS | Encounter Summary ---
Author Organization [facility] Address [address] [place] [address] Care Team Providers Care Continuity Tester Name Role Phone Mario Berrios MD Primary Care Provider [phone] Encounter Details Date Type Department Care Team (Late st Contact Info) Description 08/22/2025 Lab Requisition [facility] - Main Lab [address] [facility] [place] [address] Roverto Jurado MD [address] [place] [address] Hypokalemia Social History Tobacco Use Types Packs/Day Years [...] Associated Diagnosis Comments COMPREHENSIVE METABOLIC PANEL Routine 08/22/2025 6:42 AM EST Hypokalemia documented in this encounter Results * (ABNORMAL) Comprehensive metabolic panel (08/22/2025 6:42 AM EST) Sodium 137 133 - 145 mmol/L 08/22/2025 11:53 AM EST [facility] LAB Potassium 3.6 3.5 - 5.5 mmol/L 08/22/2025 11:53 AM EST [facility] LAB Chloride 97 96 - 110 mmol/L 08/22/2025 11:53 AM EST [facility] LAB CO2 31 21 - 32 mmol/L 08/22/2025 11:53 AM EST [facility] LAB Anion Gap 9 3 - 11 08/22/2025 11:53 AM [facility] LAB Glucose 93 70 - 100 mg/dL 08/22/2025 11:53 AM [facility] BUN <5(L) 5 - 25 mg/dL 08/22/2025 11:53 AM [facility] Creatinine 0.43(L) 0.50 - 1.10 mg/dL 08/22/2025 11:53 AM [facility] LAB eGFR 95 >=60 mL/min/1. 73m2 08/22/2025 11:53 AM [facility] LAB Comment:Calculation based on the Chronic Kidney Disease Epidemiology Collaboration (CKD-EPI) equation refit without adjustment for race. Calcium 8.0(L) 8.5 - 10.5 mg/dL 08/22/2025 11:53 AM [facility] AST (SGOT) 20 10 - 42 unit/L 08/22/2025 11:53 AM [facility] ALT (SGPT) 18 10 - 60 unit/L 08/22/2025 11:53 AM [facility] Alkaline Phosphatase 115 42 - 121 unit/L 08/22/2025 11:53 AM [facility] Total Protein 5.4(L) 6.0 - 8.0 g/dL 08/22/2025 11:53 AM [facility] Albumin 3.2 3.2 - 5.0 g/dL 08/22/2025 11:53 AM [facility] Total Bilirubin 0.6 0.0 - 1.4 mg/dL 08/22/2025 11:53 AM [facility] Blood Venous blood specimen / Unknown Venipuncture / Unknown 08/22/2025 6:42 AM EST 08/22/2025 9:46 AM EST us oRverto Jurado MD LAB BLOOD ORDERABLES Final Result [facility] HOSPITAL LAB [address] [place] [address], documented in this encounter Visit Diagnoses Diagnosis Hypokalemia Hypopotassemia documented in this encounter Care Teams Continuity Tester Relationship Specialty Start Date End Date Mario Berrios MD [address] [place] [address] PCP - General Internal Medicine 04/04/25 documented as of this encounter
--- OUTSIDE RECORDS SUMMARY | 2025-08-25 01:34 | XMS_ITS | Data Portability ---
Author Organization [facility], Main Office Address [address] [place] [address] Care Team Providers Care Railroad Construction Director Name Role Phone [facility] OTHER ISABELA MARQUEZ Primary Care Provider Assessment No assessment recorded. Plan of Treatment [...] Address Organization Details Recorded Time Recurrent falls 950924459 Active 2024 Gucci Harris [address], [address], [place], [address], [facility] 5 11:35:33 Drug-induced constipation 24982143 Active 2024 Gucci Harris [address], [address], [place], [address], [facility] 5 11:35:33 Anxiety 39454291 Active 2024 Gucci Harris [address], [address], [place], [address], [facility] 5 11:35:34 Gastroesophage al reflux disease 678436201 Active 2024 Gucci Harris [address], [address], [place], [address], [facility] 5 11:35:36 Acute hyponatremia 6472048 Active 2024 Gucci Harris [address], [address], [place], [address], [facility] 5 11:35:37 Asthenia 41254082 Active 2024 Gucci Harris [address], [place], [address], [facility] 5 11:35:39 Peripheral neuropathic pain 736324526 Active 2024 Gucci Harris [address], [address], [place], [address], [facility] 5 11:35:40 Chronic low back pain 844859342 Active 2024 Gucci Harris [address], [place], [address], [facility] 5 11:35:41 Multiple myeloma 955404189 Active 2024 Gucci Harris [address], [address], [place], [address], [facility] 5 11:35:43 Hyperlipidemia 63859507 Active 2024 Gucci Harris [address], [place], [address], [facility] 5 11:35:45 Essential hypertension 86344608 Active 2024 Gucci Harris [address], [address], [place], [address], [facility] 5 11:35:46 Persistent atrial fibrillation 405718063 Active 2024 Gucci Harris [address], [place], [address], [facility] 5 11:35:50 Problem Notes None recorded. Medical Equipment None Reported. Allergies Allergen ID Allergen Name Allergen Category Reaction Reaction Severity Criticality Documentation Date Start Date Code Code System Note Provider Name and Address Organization Details Recorded Time [address] [facility] medicatio n Not available Not available Not available 03/30/2025 5470 RxNorm Gucci Harris [address], [address], [place], [address], [facility] 5 10:36:02 75572 sotalol medicatio n Not available Not available Not available 03/30/2025 9947 RxNorm Gucci Harris [address], [address], [place], [address], [facility] 5 10:36:27 02215 amlodipin e medicatio n Not available Not available Not available 03/30/2025 30803 RxNorm Gucci Harris [address], [address], [place], [address], [facility] 5 10:36:33 64297 hydrochlo rothiazid e medicatio n Not available Not available Not available 03/30/2025 5487 RxNorm Gucci Harris [address], [address], [place], [address], [facility] 5 10:56:32 Medications Name Sig Start Date [...] Address Organization Details Last Updated DateTime 5 30802.7 5 g 97 [degF] 84 /min 16 /min 100/67 mm[Hg] Walt Cruz MD [address], [address], [place], [address], [place] [facility] 5 12:05:50 Social History Question Answer Notes LastModified by Organizat ion Details LastModified Time Tobacco Smoking Status Never Smoker [place] [address], [address], [place], [address], [facility] 04/01/2025 09:25:48 Do You Have An [...] ICD10 Code Diagnosis IMO Codes Diagnosis Note [id number] Jean-Paul MCDONAL[facility] [address] [place] [address] 03/30/2025 10:34:37 03/31/2025 15:55:46 Persistent atrial fibrillation 828114135 I48.19 929995 continue diltiazem 240mg qd, metoprolol 50mg BID (hold for SBP < 90, HR < 60) and eliquis 5mg BIDmonitor rate Essential hypertension 42169875 I10 01119 Continue diltiazem 240 qd with parameters , metoprolol 50mg BIDmonitor BP and labs Hyperlipidemia 37960239 E78.5 75423980 Continue simvastati n 20mg qhsmonitor lipids PRN Multiple myeloma 5021879 06 C90.00 7382091 multiple thoracic and lumbar metastatic lesions with multilevel lumbar compressio nfollows oncology with future plans for palliative radiationC ontinue prednisone taper 40mg qd x 5d, 30mg qd x 5d, 20mg qd x 5d, 10mg qd x 5dupdate onc with concerns Peripheral neuropathic pain 923504582 M79.2 58117088 Continue hydromorph one 2mg q4h PRN- monitor utilizatio n Asthenia 75093382 R53.1 39706 Admit to services PT/OT for strengthen ing, balance, gait training, safety and function.C ontinue fall precaution s.Monitor for safety. Acute hyponatremia 69653 02 E87.1 82451 multifacto rial secondary to poor po intake and SIADH from MMContinue sodium tablet 1g TID1L fluid restrictio nmonitor labs Gastroesop hageal reflux disease 554076376 K21.9 7743853315 continue omeprazole 20mg qdmonitor sxs Anxiety 46266784 F41.9 81750 continue lorazepam 0.5mg qhs PRN x 14 days and monitor utilizatio nmonitor mood and consult if needed Chronic low back pain 27 5654435 M54.50 G89.29 3765023525 secondary to progressiv e MMContinue hydromorph one 2mg q4h PRN- monitor utilizatio n, hydrocorti sone topically BID, lidocaine patch 5% qd Drug-induc ed constipation 14089303 K59.03 8840 continue senna 17.2mg qd and colace 100mg BIDmonitor bowels and titrate PRN Recurrent falls 63142143 2 R29.6 46917 Continue fall precaution s.Monitor for safety. [id number] Walt Cruz MD [facility] [address] [address] 04/02/2025 12:05:16 04/06/2025 15:54:20 Asthenia 16196438 R53.1 85975 PT OT eval and treatmonit or need for increased support in community Abnormal gait 14559367 R 26.81 620431 therapy to followmoni tor fall risk Persistent atrial fibrillation 553658799 I48.19 066655 rapid a fib required cardizem drip and followed by cards remains on eliquismon itor for rate control Essential hypertension 41057276 I10 68942 monitor bp and need to titrate medication s Hyperlipidemia 04794885 E78.5 78021799 simvastati n 20 mg qdcontinue d Multiple myeloma 6758336 06 C90.00 2768745 multiple myeloma with thoracic and lumbar mets, with increasing weaknessre c is for palliative radiation however held due to elevated liver enzymescoo rdinate with oncology Peripheral neuropathic pain 656362060 M79.2 28525815 see abovemulti factorialm onitor sx relief and need to titrate medication Acute hyponatremia 04805 02 E87.1 35286 Acute on chronic hyponatrem ia with SIADH and multiple myeloma eval by nephro and started on salt tabs and fluid restrictio nupdate nephro with concerns Gastroesop hageal reflux disease 536440205 K21.9 5858749243 omeprazole 20 mg qdmonitor sx relief Drug-induc ed constipation 88927357 K59.03 8840 bowel protocolmo nitor for effect Degenerati ve lumbar spinal stenosis 238637099 M48.061 071370 severe canal stenosis at L2-3, discussed with neurosurge ry and treated with decadron 4 mg q 8coordinat e with neurosurge ry [id number] Cayla_Gavin MCDONALD AT [address] [address] 04/03/2025 08:05:24 04/07/2025 08:14:36 Persistent atrial fibrillation 843207879 I48.19 827128 continue diltiazem 240mg qd, metoprolol 50mg BID (hold for SBP < 90, HR < 60) and eliquis 5mg BIDfacilit y as been out of diltiazem- rate has been uncontroll ed 80-120s Essential hypertension 40207952 I10 35486 Continue diltiazem 240 qd with parameters , metoprolol 50mg BID Hyperlipidemia 99240572 E78.5 66107607 Continue simvastati n 20mg qhsmonitor lipids outpatient Multiple myeloma 6633660 06 C90.00 7659540 multiple thoracic and lumbar metastatic lesions with multilevel lumbar compressio nfollows oncology with future plans for palliative radiationC ontinue prednisone taper 40mg qd x 5d, 30mg qd x 5d, 20mg qd x 5d, 10mg qd x 5df/u Onc as planned Chronic low back pain 27 9238502 M54.50 G89.29 7115309766 secondary to progressiv e MMContinue hydromorph one 2mg q4h PRN- monitor utilizatio n, hydorcorti sone topically BID, lidocaine patch 5% qd Peripheral neuropathic pain 238189153 M79.2 06329195 Continue hydromorph one 2mg q4h PRN Asthenia 88026401 R53.1 99059 Particpate d in PT/OT for strengthen ing, balance, gait training, safety and function. Acute hyponatremia 49894 02 E87.1 90982 multifacto rial secondary to poor po intake and SIADH from MMmost recent NA 131Continu e sodium tablet 1g TID1L fluid restrictio nf/u outpatient for lab monitoring Gastroesop hageal reflux disease 570335775 K21.9 5989452986 continue omeprazole 20mg qd Anxiety 90477828 F41.9 50500 continue lorazepam 0.5mg qhs PRN Drug-induc ed constipation 61687702 K59.03 8840 continue senna 17.2mg qd and colace 100mg BIDRecent large BM Recurrent falls 81520922 2 R29.6 96688 04/02 lowering herself to the floor while trying to standno apparent injuries but some buttock pain relieved with pain medication sContinue fall precaution s.Monitor for safety. Dysuria 20334457 R30.0 93364 with suprapubic discomfort today 04/03Would recommend facility obtain UA with reflex Productive cough 0284306 5 R05.8 221877 with scattered rhonchino dyspnea or hypoxiacon equipment operating engineer CXR if cough persists Health Concerns Section Related Observation LastModified by Organization Detai ls LastModified Time None Recorded Concern Status LastModified by Organization Details LastModified Time None Recorded Advance Directives Directive Y: Payers Insurance Date Sequence Insurance Name Policy Number Policy Hernandez Covered Member ID Ehrnandez Member ID Guarantor Name 04/06/2025 2 [facility] (MEDICARE SUPPLEMENT) Yesenia Fisher [id number] Yesenia Fisher 03/31/2025 1 [place]: [employer] Yesenia Fisher [id number] Yesenia Fisher Notes Date Note Type Note Provider Name and Address Organization Details Recorded Time 03/30/20 25 text/htm l Patient is an 84 yo female who presents for initial intake visit PM afib on eliquis, HLD, peripheral neuropathy, HTN and MM with multiple thoracic and lumbar metastatic lesions with multilevel lumbar compression [place] [facility] [place] to difficulty ambulating, RLE weakness and [...] started on salt tablets and sodium restriction. [place] to be due to poor PO intake/chronic [...] with recs for rehab and discharged to [facility] on 03/28/25 for STR/PT/OT RITA 65MOLST FULL CODE Cayla_Tra Sorensen [address], [address], [place], [address], [facility] 03/30/2025 11:36:18 04/02/20 25 text/htm l Patient [...] therapy eval and treat Walt Cruz MD [address] [place] [address], [address], [place], [address], [place] [facility] 04/02/2025 12:35:31 04/03/20 25 text/htm l Patient is an 84 yo female who presents for discharge summary PMH afib on eliquis, HLD, peripheral neuropathy, HTN and MM with multiple thoracic and lumbar metastatic lesions with multilevel lumbar compression Presented [place] [facility] [place] to difficulty ambulating, RLE weakness and [...] started on salt tablets and sodium restriction. [place] to be due to poor PO intake/chronic [...] with recs for rehab and discharged to [facility] on 03/28/25 for STR/PT/OT. She actively participated in therapy. Ambulating 25ft with 2WW. She was noted with an acute productive cough and evaluated by VALUE STREAM MANAGER. No swallowing dysfunction on exam and [...] medically stable and okay to discharge to [facility] with meds and services A_Tra Sorensen [address] [place] [address], [address], [place], [address], [facility] 04/03/2025 09:51:51 OBGyn Episode No OBEpisode recorded.
--- OUTSIDE RECORDS SUMMARY | 2025-08-25 01:34 | XMS_ITS | Encounter Summary ---
Author Organization [facility] Address [address] [place] [address] Care Team Providers Care Change Consultant Name Role Phone Mario Berrios MD Primary Care Provider Encounter Details Date Type Department Care Team (Late st Contact Info) Description 04/04/2025 Lab Requisition [facility] - Main Lab [address] [place] [address] Mario Berrios MD [address] [place] [address] [phone] Essential (primary) hypertension Social History Tobacco Use [...] LAB CHEMISTRY METHOD 04/04/2025 1:38 PM EDT [facility] Potassium 5.0 3.5 - 5.5 mmol/L LAB CHEMISTRY METHOD 04/04/2025 1:38 PM EDT [facility] Chloride 94(L) 96 - 110 mmol/L LAB CHEMISTRY METHOD 04/04/2025 1:38 PM [facility] CO2 31 21 - 32 mmol/L LAB CHEMISTRY METHOD 04/04/2025 1:38 PM [facility] Anion Gap 8 3 - 11 LAB CHEMISTRY METHOD 04/04/2025 1:38 PM [facility] Glucose 122(H) 70 - 100 mg/dL LAB CHEMISTRY METHOD 04/04/2025 1:38 PM [facility] BUN 21 5 - 25 mg/dL LAB CHEMISTRY METHOD 04/04/2025 1:38 PM [facility] Creatinine 0.62 0.50 - 1.10 mg/dL LAB CHEMISTRY METHOD 04/04/2025 1:38 PM [facility] eGFR 87 >=60 mL/min/1. 73m2 LAB CHEMISTRY METHOD 04/04/2025 1:38 PM [facility] Comment:Calculation based on the Chronic Kidney Disease Epidemiology Collaboration (CKD-EPI) equation refit without adjustment for race. BUN/Creatinine Ratio 33.9 LAB CHEMISTRY METHOD 04/04/2025 1:38 PM [facility] Calcium 9.0 8.5 - 10.5 mg/dL LAB CHEMISTRY METHOD 04/04/2025 1:38 PM [facility] AST (SGOT) 17 10 - 42 unit/L LAB CHEMISTRY METHOD 04/04/2025 1:38 PM [facility] ALT (SGPT) 34 10 - 60 unit/L LAB CHEMISTRY METHOD 04/04/2025 1:38 PM [facility] Alkaline Phosphatase 65 42 - 121 unit/L LAB CHEMISTRY METHOD 04/04/2025 1:38 PM [facility] Total Protein 5.6(L) 6.0 - 8.0 g/dL LAB CHEMISTRY METHOD 04/04/2025 1:38 PM [facility] Albumin 2.9(L) 3.2 - 5.0 g/dL LAB CHEMISTRY METHOD 04/04/2025 1:38 PM EDT [facility] Total Bilirubin 0.9 0.0 - 1.4 mg/dL LAB CHEMISTRY METHOD 04/04/2025 1:38 PM EDT [facility] Blood Venous blood specimen / Unknown Venipuncture / Unknown 04/04/2025 8:27 AM EDT 04/04/2025 12:53 PM EDT us Mario Berrios MD LAB BLOOD ORDERABLES Final Resu lt [facility] [address] [place] [address], [place] [phone] * (ABNORMAL) Complete blood count (04/04/2025 8:27 AM EDT) WBC 11.0(H) 4.8 - 10.8 K/mcL LAB HEMETOLOGY METHOD 04/04/2025 1:20 PM EDT [facility] RBC 4.30 3.80 - 4.80 M/mcL LAB HEMETOLOGY METHOD 04/04/2025 1:20 PM EDT [facility] Hemoglobin 13.2 11.5 - 16.0 g/dL LAB HEMETOLOGY METHOD 04/04/2025 1:20 PM EDT [facility] Hematocrit 40.2 35.0 - 47.0 % LAB HEMETOLOGY METHOD 04/04/2025 1:20 PM EDT [facility] MCV 93.7 79.0 - 98.0 FL LAB HEMETOLOGY METHOD 04/04/2025 1:20 PM EDT [facility] MCH 30.8 27.0 - 32.0 pcg LAB HEMETOLOGY METHOD 04/04/2025 1:20 PM EDT [facility] MCHC 32.8 32.0 - 37.0 g/dL LAB HEMETOLOGY METHOD 04/04/2025 1:20 PM EDT [facility] RDW 15.3(H) 11.0 - 15.0 % LAB HEMETOLOGY METHOD 04/04/2025 1:20 PM EDT [facility] Platelets 179 130 - 400 K/mcL LAB HEMETOLOGY METHOD 04/04/2025 1:20 PM EDT [facility] MPV 11.9(H) 7.0 - 11.0 FL LAB HEMETOLOGY METHOD 04/04/2025 1:20 PM EDT [facility] NRBC 0.0 <1.0 % LAB HEMETOLOGY METHOD 04/04/2025 1:20 PM EDT [facility] NRBC Absolute 0.00 <0.10 K/mcL LAB HEMETOLOGY METHOD 04/04/2025 1:20 PM EDT [facility] Blood Venous blood specimen / Unknown Venipuncture / Unknown 04/04/2025 8:27 AM EDT 04/04/2025 12:53 PM EDT us Mario Berrios MD LAB BLOOD ORDERABLES Final Resu lt [facility] [address] [place] [address], documented in this encounter Visit Diagnoses Diagnosis Essential (primary) hypertension Unspecified essential hypertension documented in this encounter Care Teams Change Consultant Relationship Specialty Start Date End Date Mario Berrios MD [address] [place] [address] PCP - General Internal Medicine 04/04/25 documented as of this encounter
--- OUTSIDE RECORDS SUMMARY | 2025-08-25 01:34 | XMS_ITS | Encounter Summary ---
Author Organization [facility] Address [address] [place] [address] Care Team Providers Care Thread Grinder Tool Name Role Phone Mario Berrios MD Primary Care Provider [phone] Encounter Details Date Type Department Care Team (Late st Contact Info) Description 04/23/2025 Lab Requisition [facility] - Main Lab [address] [facility] [place] [address] Mario Berrios MD [address] [place] [address] Diarrhea, unspecified Social History Tobacco [...] unspecified documented in this encounter Care Teams Thread Grinder Tool Relationship Specialty Start Date End Date Mario Berrios MD [address] [place] [address] PCP - General Internal Medicine 04/04/25 documented as of this encounter
--- OUTSIDE RECORDS SUMMARY | 2025-08-25 01:34 | XMS_ITS | Encounter Summary ---
Author Organization [facility] Address [address] [place] [address] Care Team Providers Care Maritime Guard Name Role Phone Mario Berrios MD Primary Care Provider [phone] Encounter Details Date Type Department Care Team (Late st Contact Info) Description 08/20/[address] [facility] - Main Lab [address] [facility] [place] [address] Roverto Jurado MD [address] [place] [address] Hypokalemia; Essential (primary) hypertension Social History Tobacco Use [...] Associated Diagnosis Comments COMPLETE BLOOD COUNT Routine 08/21/2025 4:56 AM EST Hypokalemia Essential (primary) hypertension documented in this encounter Results * (ABNORMAL) Complete blood count (08/21/2025 4:56 AM EST) WBC 4.9 4.8 - 10.8 K/mcL LAB HEMETOLOGY METHOD 08/21/2025 9:[address] [facility] RBC 3.60(L) 3.80 - 4.80 M/mcL LAB HEMETOLOGY METHOD 08/21/2025 9:[address] [facility] Hemoglobin 10.9(L) 11.5 - 16.0 g/dL LAB HEMETOLOGY METHOD 08/21/2025 9:[address] [facility] Hematocrit 32.7(L) 35.0 - 47.0 % LAB HEMETOLOGY METHOD 08/21/2025 9:[address] [facility] MCV 90.3 79.0 - 98.0 FL LAB HEMETOLOGY METHOD 08/21/2025 9:[address] [facility] MCH 30.1 27.0 - 32.0 pcg LAB HEMETOLOGY METHOD 08/21/2025 9:[address] [facility] MCHC 33.3 32.0 - 37.0 g/dL LAB HEMETOLOGY METHOD 08/21/2025 9:[address] [facility] RDW 13.9 11.0 - 15.0 % LAB HEMETOLOGY METHOD 08/21/2025 9:[address] [facility] Platelets 341 130 - 400 K/mcL LAB HEMETOLOGY METHOD 08/21/2025 9:[address] [facility] MPV 10.1 7.0 - 11.0 FL LAB HEMETOLOGY METHOD 08/21/2025 9:[address] [facility] NRBC 0.0 <1.0 % LAB HEMETOLOGY METHOD 08/21/2025 9:[address] [facility] NRBC Absolute 0.00 <0.10 K/mcL LAB HEMETOLOGY METHOD 08/21/2025 9:[address] [facility] Blood Venous blood specimen / Unknown Venipuncture / Unknown 08/21/2025 4:56 AM EST 08/21/2025 8:56 AM EST us Roverto Jurado MD LAB BLOOD ORDERABLES Final Result [facility] [address] [place] [address], documented in this encounter Visit Diagnoses Diagnosis Hypokalemia Hypopotassemia Essential (primary) hypertension Unspecified essential hypertension documented in this encounter Care Teams Maritime Guard Relationship Specialty Start Date End Date Mario Berrios MD [address] [place] [address] PCP - General Internal Medicine 04/04/25 documented as of this encounter
--- OUTSIDE RECORDS SUMMARY | 2025-08-25 01:34 | XMS_ITS | Encounter Summary ---
Author Organization [facility] Address [address] [place] [address] Care Team Providers Care Hearing Health Technician Name Role Phone Mario Berrios MD Primary Care Provider [phone] Encounter Details Date Type Department Care Team (Late st Contact Info) Description 08/22/2025 Lab Requisition [facility] - Main Lab [address] [facility] [address] [place] [address] Roverto Jurado MD [address] [place] [address] Multiple myeloma not having achieved remission (CMS/HCC V24, CMS/HCC V28); Type 2 diabetes mellitus without complications (CMS/HCC V24, CMS/HCC V28); Hyperlipidemia, unspecified; Unspecified atrial fibrillation (CMS/HCC V24, CMS/HCC V28); Secondary malignant neoplasm of bone (CMS/HCC V24, CMS/HCC V28); Paroxysmal atrial fibrillation (CMS/HCC V24, CMS/HCC V28); Heart failure, unspecified (CMS/HCC V24, CMS/HCC V28) Social History Tobacco Use Types Packs/Day Years [...] Associated Diagnosis Comments COMPLETE BLOOD COUNT Routine 08/24/2025 8:31 AM EST Multiple myeloma not having achieved remission (CMS/HCC V24, CMS/HCC V28) Type 2 diabetes mellitus without complications (CMS/HCC V24, CMS/HCC V28) Hyperlipidemia, unspecified Unspecified atrial fibrillation (CMS/HCC V24, CMS/HCC V28) DIGOXIN LEVEL Routine 08/24/2025 8:31 AM EST Multiple myeloma not having achieved remission (CMS/HCC V24, CMS/HCC V28) Type 2 diabetes mellitus without complications (CMS/HCC V24, CMS/HCC V28) Hyperlipidemia, unspecified Unspecified atrial fibrillation (CMS/HCC V24, CMS/HCC V28) Secondary malignant neoplasm of bone (CMS/HCC V24, CMS/HCC V28) Paroxysmal atrial fibrillation (CMS/HCC V24, CMS/HCC V28) Heart failure, unspecified (CMS/HCC V24, CMS/HCC V28) BASIC METABOLIC PANEL Routine 08/24/2025 8:31 AM EST Multiple myeloma not having achieved remission (CMS/HCC V24, CMS/HCC V28) Type 2 diabetes mellitus without complications (CMS/HCC V24, CMS/HCC V28) Hyperlipidemia, unspecified Unspecified atrial fibrillation (CMS/HCC V24, CMS/HCC V28) documented in this encounter Results * Digoxin level (08/24/2025 8:31 AM EST) Pathologist [facility] Digoxin Lvl 0.8 0.5 - 2.0 ng/mL 08/24/2025 12:45 PM EST [facility] Blood Venous blood specimen / Unknown Venipuncture / Unknown 08/24/2025 8:31 AM EST 08/24/2025 11:08 AM EST Roverto Jurado MD LAB BLOOD ORDERABLES Final Result [facility] [address] [place] [address], * (ABNORMAL) Basic metabolic panel (08/24/2025 8:31 AM EST) Pathologist [facility] Sodium 135 133 - 145 mmol/L 08/24/2025 1:44 PM EST [facility] Potassium 3.2(L) 3.5 - 5.5 mmol/L 08/24/2025 1:[address] [facility] Chloride 94(L) 96 - 110 mmol/L 08/24/2025 1:[address] [facility] CO2 33(H) 21 - 32 mmol/L 08/24/2025 1:[address] [facility] Anion Gap 8 3 - 11 08/24/2025 1:[address] [facility] Glucose 85 70 - 100 mg/dL 08/24/2025 1:[address] [facility] BUN <5(L) 5 - 25 mg/dL 08/24/2025 1:[address] [facility] Creatinine 0.47(L) 0.50 - 1.10 mg/dL 08/24/2025 1:[address] [facility] eGFR 93 >=60 mL/min/1. 73m2 08/24/2025 1:[address] [facility] Comment:Calculation based on the Chronic Kidney Disease Epidemiology Collaboration (CKD-EPI) equation refit without adjustment for race. Calcium 7.7(L) 8.5 - 10.5 mg/dL 08/24/2025 1:[address] [facility] Blood Venous blood specimen / Unknown Venipuncture / Unknown 08/24/2025 8:31 AM EST 08/24/2025 11:08 AM EST us Roverto Jurado MD LAB BLOOD ORDERABLES Final Result [facility] [address] [place] [address], * Complete blood count (08/24/2025 8:31 AM EST) Pathologist [facility] WBC 5.1 4.8 - 10.8 K/mcL LAB HEMETOLOGY METHOD 08/24/2025 12:[address] [facility] RBC 3.80 3.80 - 4.80 M/mcL LAB HEMETOLOGY METHOD 08/24/2025 12:[address] [facility] Hemoglobin 11.5 11.5 - 16.0 g/dL LAB HEMETOLOGY METHOD 08/24/2025 12:[address] [facility] Hematocrit 35.2 35.0 - 47.0 % LAB HEMETOLOGY METHOD 08/24/2025 12:[address] [facility] MCV 91.9 79.0 - 98.0 FL LAB HEMETOLOGY METHOD 08/24/2025 12:[address] [facility] MCH 30.0 27.0 - 32.0 pcg LAB HEMETOLOGY METHOD 08/24/2025 12:[address] [facility] MCHC 32.7 32.0 - 37.0 g/dL LAB HEMETOLOGY METHOD 08/24/2025 12:[address] [facility] RDW 14.3 11.0 - 15.0 % LAB HEMETOLOGY METHOD 08/24/2025 12:[address] [facility] Platelets 363 130 - 400 K/mcL LAB HEMETOLOGY METHOD 08/24/2025 12:[address] [facility] MPV 10.0 7.0 - 11.0 FL LAB HEMETOLOGY METHOD 08/24/2025 12:[address] [facility] NRBC 0.0 <1.0 % LAB HEMETOLOGY METHOD 08/24/2025 12:[address] [facility] NRBC Absolute 0.00 <0.10 K/mcL LAB HEMETOLOGY METHOD 08/24/2025 12:[address] [facility] Blood Venous blood specimen / Unknown Venipuncture / Unknown 08/24/2025 8:31 AM EST 08/24/2025 11:08 AM EST us Roverto Jurado MD LAB BLOOD ORDERABLES Final Result [facility] [address] [place] [address], documented in this encounter Visit Diagnoses Diagnosis Multiple myeloma not having achieved remission ([facility] V24, [facility] V28) Type 2 diabetes mellitus without complications ([facility] V24, [facility] V28) Hyperlipidemia, unspecified Unspecified atrial fibrillation ([facility] V24, [facility] V28) Secondary malignant neoplasm of bone ([facility] V24, [facility] V28) Paroxysmal atrial fibrillation ([facility] V24, [facility] V28) Atrial fibrillation Heart failure, unspecified ([facility] V24, [facility] V28) Heart failure, unspecified documented in this encounter Care Teams Hearing Health Technician Relationship Specialty Start Date End Date Mario Berrios MD [address] [place] [address] PCP - General Internal Medicine 04/04/25 documented as of this encounter
--- OUTSIDE RECORDS SUMMARY | 2025-08-25 01:34 | XMS_ITS | Encounter Summary ---
Author Organization [facility] Address [address] [place] [address] Care Team Providers Care Inside Sales Name Role Phone Mario Berrios MD Primary Care Provider [phone] Encounter Details Date Type Department Care Team (Late st Contact Info) Description 08/18/2025 Lab Requisition [facility] - Main Lab [address] [facility] [place] [address] Roverto Jurado MD [address] [place] [address] Unspecified atrial fibrillation (CMS/HCC V24, CMS/HCC V28); Type 2 diabetes mellitus without complications (CMS/HCC V24, CMS/HCC V28) Social History Tobacco [...] Associated Diagnosis Comments COMPLETE BLOOD COUNT Routine 08/18/2025 5:47 AM EST Unspecified atrial fibrillation (CMS/HCC V24, CMS/HCC V28) Type 2 diabetes mellitus without complications (CMS/HCC V24, CMS/HCC V28) HEMOGLOBIN A1C Routine 08/18/2025 5:47 AM EST Unspecified atrial fibrillation (CMS/HCC V24, CMS/HCC V28) Type 2 diabetes mellitus without complications (CMS/HCC V24, CMS/HCC V28) COMPREHENSIVE METABOLIC PANEL Routine 08/18/2025 5:47 AM EST Unspecified atrial fibrillation (CMS/HCC V24, CMS/HCC V28) Type 2 diabetes mellitus without complications (CMS/[facility] V24, [facility] V28) documented in this encounter Results * (ABNORMAL) Hemoglobin A1c (08/18/2025 5:47 AM EST) Hemoglobin A1C 7.0(H) <6.5 % LAB CHEMISTRY METHOD 08/18/2025 2:27 PM EST [facility] Mean Bld Glu Estim. 154 mg/dL LAB CHEMISTRY METHOD 08/18/2025 2:27 PM [facility] Blood Venous blood specimen / Unknown Venipuncture / Unknown 08/18/2025 5:47 AM EST 08/18/2025 10:57 AM EST us Roverto Jurado MD LAB BLOOD ORDERABLES Final Result [facility] [address] [place] [address], * (ABNORMAL) Comprehensive metabolic panel (08/18/2025 5:47 AM EST) Pathologist [facility] Sodium 134 133 - 145 mmol/L 08/18/2025 12:31 PM [facility] Potassium 3.0(L) 3.5 - 5.5 mmol/L 08/18/2025 12:31 PM [facility] Chloride 95(L) 96 - 110 mmol/L 08/18/2025 12:31 PM [facility] CO2 30 21 - 32 mmol/L 08/18/2025 12:31 PM [facility] Anion Gap 9 3 - 11 08/18/2025 12:31 PM [facility] Glucose 87 70 - 100 mg/dL 08/18/2025 12:31 PM [facility] BUN 6 5 - 25 mg/dL 08/18/2025 12:31 PM [facility] Creatinine 0.37(L) 0.50 - 1.10 mg/dL 08/18/2025 12:31 PM [facility] eGFR 99 >=60 mL/min/1. 73m2 08/18/2025 12:31 PM [facility] Comment:Calculation based on the Chronic Kidney Disease Epidemiology Collaboration (CKD-EPI) equation refit without adjustment for race. BUN/Creatinine Ratio 16.2 08/18/2025 12:31 PM [facility] Calcium 7.0(L) 8.5 - 10.5 mg/dL 08/18/2025 12:31 PM [facility] AST (SGOT) 18 10 - 42 unit/L 08/18/2025 12:31 PM [facility] ALT (SGPT) 26 10 - 60 unit/L 08/18/2025 12:31 PM [facility] Alkaline Phosphatase 159(H) 42 - 121 unit/L 08/18/2025 12:31 PM [facility] Total Protein 4.9(L) 6.0 - 8.0 g/dL 08/18/2025 12:31 PM [facility] Albumin 2.8(L) 3.2 - 5.0 g/dL 08/18/2025 12:31 PM [facility] Total Bilirubin 0.4 0.0 - 1.4 mg/dL 08/18/2025 12:31 PM [facility] Blood Venous blood specimen / Unknown Venipuncture / Unknown 08/18/2025 5:47 AM EST 08/18/2025 10:57 AM EST us Roverto Jurado MD LAB BLOOD ORDERABLES Final Result [facility] [address] [place] [address], [place] [phone] * (ABNORMAL) Complete blood count (08/18/2025 5:47 AM EST) [facility] WBC 6.9 4.8 - 10.8 K/mcL LAB HEMETOLOGY METHOD 08/18/2025 12:04 PM [facility] RBC 3.50(L) 3.80 - 4.80 M/mcL LAB HEMETOLOGY METHOD 08/18/2025 12:04 PM [facility] Hemoglobin 10.6(L) 11.5 - 16.0 g/dL LAB HEMETOLOGY METHOD 08/18/2025 12:04 PM [facility] Hematocrit 31.6(L) 35.0 - 47.0 % LAB HEMETOLOGY METHOD 08/18/2025 12:04 PM [facility] MCV 90.0 79.0 - 98.0 FL LAB HEMETOLOGY METHOD 08/18/2025 12:04 PM [facility] MCH 30.2 27.0 - 32.0 pcg LAB HEMETOLOGY METHOD 08/18/2025 12:04 PM [facility] MCHC 33.5 32.0 - 37.0 g/dL LAB HEMETOLOGY METHOD 08/18/2025 12:04 PM [facility] RDW 14.2 11.0 - 15.0 % LAB HEMETOLOGY METHOD 08/18/2025 12:04 PM [facility] Platelets 327 130 - 400 K/mcL LAB HEMETOLOGY METHOD 08/18/2025 12:04 PM [facility] MPV 10.1 7.0 - 11.0 FL LAB HEMETOLOGY METHOD 08/18/2025 12:04 PM [facility] NRBC 0.0 <1.0 % LAB HEMETOLOGY METHOD 08/18/2025 12:04 PM [facility] NRBC Absolute 0.00 <0.10 K/mcL LAB HEMETOLOGY METHOD 08/18/2025 12:04 PM EST [facility] Blood Venous blood specimen / Unknown Venipuncture / Unknown 08/18/2025 5:47 AM EST 08/18/2025 10:57 AM EST us Roverto Jurado MD LAB BLOOD ORDERABLES Final Result [facility] [address] [place] [address], documented in this encounter Visit Diagnoses Diagnosis Unspecified atrial fibrillation (CMS/HCC V24, CMS/[facility] V28) Type 2 diabetes mellitus without complications (CMS/[facility] V24, [facility] V28) documented in this encounter Care Teams Inside Sales Relationship Specialty Start Date End Date Mario Berrios MD [address] [place] [address] PCP - General Internal Medicine 04/04/25 documented as of this encounter
--- OUTSIDE RECORDS SUMMARY | 2025-08-25 01:34 | XMS_ITS | Clinical Summary ---
Author Organization [facility] Address [address] [place] [address] Phone Care Team Providers Care Thread Laster Name Role Phone Mario Berrios MD Primary Care Provider [phone] Encounters Date Type Department Care Team Description 08/22/2025 Lab Requisition [facility] Lab [address] [place] [phone] Roverto Jurado MD Multiple myeloma not having achieved remission ([facility] V24, [facility] V28); Type 2 diabetes mellitus without complications ([facility] V24, [facility] V28); Hyperlipidemia, unspecified; Unspecified atrial fibrillation ([facility] V24, [facility] V28); Secondary malignant neoplasm of bone ([facility] V24, [facility] V28); Paroxysmal atrial fibrillation ([facility] V24, [facility] V28); Heart failure, unspecified ([facility] V24, [facility] V28) 08/22/2025 Lab Requisition [facility] Lab [address] [place] [phone] Roverto Jurado MD Hypokalemia 08/20/2025 Lab Requisition [facility] Lab [address] [place] [phone] Roverto Jurado MD Hypokalemia; Essential (primary) hypertension 08/19/2025 Lab Requisition [facility] Lab [address] [place] [phone] Roverto Jurado MD Malignant (primary) neoplasm, unspecified ([facility] V24, [facility] V28); Unspecified atrial fibrillation ([facility] V24, [facility] V28); Type 2 diabetes mellitus without complications ([facility] V24, [facility] V28) 08/18/[address] [facility] Lab [address] [place] [address] Roverto Jurado MD Unspecified atrial fibrillation ([facility] V24, [facility] V28); Type 2 diabetes mellitus without complications ([facility] V24, [facility] V28) from Last 3 Months Social History Tobacco Use Types Packs/Day Years Used Date Smoking Tobacco: Never Assessed Comments Unknown Sex and Gender Information Value Date Recorded Sex Assigned at Not on file Legal Sex Female 11:01 AM EDT Gender Identity Not on file Sexual Orientation Not on file Plan of Treatment Health Maintenance Due Date Last Done Comments Diabetes: Annual Foot Exam 12/05/1949 Diabetes: Annual Retina Eye Exam 12/05/1949 Pneumococcal Vaccine: 50+ Years (1 of 2 [...] 2025 , 07/14/2019, 06/13/2017, Additional history exists Diabetes: Annual Urine Albumin-Creatinine Ratio (uACR) 08/18/2025 Diabetes: Blood Sugar Control Test (HGBA1C) 02/16/2026 08/18/2025 Diabetes: Annual GFR (Glomerular Filtration Rate) 08/24/2026 08/24/2025, 08/22/2025, 08/18/2025, Additional history exists Hypertension/CHF/CAD Annual BMP Blood Test 08/24/2026 08/24/2025, 08/22/2025, 08/18/2025, Additional history exists HIB Vaccines Aged Out [...] Procedure Name Priority Date/Time Associated Diagnosis Comments DIGOXIN LEVEL Routine 08/24/2025 8:31 AM EST [...] Unspecified atrial fibrillation (CMS/HCC V24, CMS/HCC V28) COMPLETE BLOOD COUNT Routine 08/24/2025 8:31 AM EST Multiple myeloma not having achieved remission (CMS/HCC V24, CMS/HCC V28) Type 2 diabetes mellitus without complications (CMS/HCC V24, CMS/HCC V28) Hyperlipidemia, unspecified Unspecified atrial fibrillation (CMS/HCC V24, CMS/HCC V28) COMPREHENSIVE METABOLIC PANEL Routine 08/22/2025 6:42 AM EST Hypokalemia COMPLETE BLOOD COUNT Routine 08/21/2025 4:56 AM EST Hypokalemia Essential (primary) hypertension SST - GOLD Routine 08/19/2025 6:01 AM EST Malignant (primary) neoplasm, unspecified (CMS/HCC V24, CMS/HCC V28) Unspecified atrial fibrillation (CMS/HCC V24, CMS/HCC V28) [...] mellitus without complications (CMS/HCC V24, CMS/HCC V28) COMPLETE BLOOD COUNT Routine 08/18/2025 5:47 AM EST Unspecified atrial fibrillation (CMS/HCC V24, CMS/HCC V28) Type 2 diabetes mellitus without complications (CMS/HCC V24, CMS/HCC V28) from Last 3 Months Results * Complete blood count (08/24/2025 8:31 AM EST) Only the most recent of3 resultswithin the time period is included. WBC 5.1 4.8 - 10.8 K/[facility] LAB HEMETOLOGY METHOD 08/24/2025 12:40 PM EST [facility] LAB RBC 3.80 3.80 - 4.80 M/[facility] LAB HEMETOLOGY METHOD 08/24/2025 12:40 PM [facility] LAB Hemoglobin 11.5 11.5 - 16.0 g/dL LAB HEMETOLOGY METHOD 08/24/2025 12:40 PM [facility] LAB Hematocrit 35.2 35.0 - 47.0 % LAB HEMETOLOGY METHOD 08/24/2025 12:40 PM [facility] LAB MCV 91.9 79.0 - 98.0 FL LAB HEMETOLOGY METHOD 08/24/2025 12:40 PM [facility] LAB MCH 30.0 27.0 - 32.0 pcg LAB HEMETOLOGY METHOD 08/24/2025 12:40 PM [facility] LAB MCHC 32.7 32.0 - 37.0 g/dL LAB HEMETOLOGY METHOD 08/24/2025 12:40 PM [facility] LAB RDW 14.3 11.0 - 15.0 % LAB HEMETOLOGY METHOD 08/24/2025 12:40 PM [facility] LAB Platelets 363 130 - 400 K/mcL LAB HEMETOLOGY METHOD 08/24/2025 12:40 PM [facility] LAB MPV 10.0 7.0 - 11.0 FL LAB HEMETOLOGY METHOD 08/24/2025 12:40 PM [facility] LAB NRBC 0.0 <1.0 % LAB HEMETOLOGY METHOD 08/24/2025 12:40 PM [facility] LAB NRBC Absolute 0.00 <0.10 K/mcL LAB HEMETOLOGY METHOD 08/24/2025 12:40 PM [facility] LAB Blood Venous blood specimen / Unknown Venipuncture / Unknown 08/24/2025 8:31 AM EST 08/24/2025 11:08 AM EST Roverto Jurado MD LAB BLOOD ORDERABLES Final Result [facility] LAB [address] [place] [address], * Digoxin level (08/24/2025 8:31 AM EST) Digoxin Lvl 0.8 0.5 - 2.0 ng/mL 08/24/2025 12:45 PM [facility] LAB Blood Venous blood specimen / Unknown Venipuncture / Unknown 08/24/2025 8:31 AM EST 08/24/2025 11:08 AM EST Roverto Jurado MD LAB BLOOD ORDERABLES Final Result Performing Organization Address [facility] Co de Phone Number [facility] [address] [place] [address], * (ABNORMAL) Basic metabolic panel (08/24/2025 8:31 AM EST) [facility] Sodium 135 133 - 145 mmol/L 08/24/2025 1:44 PM [facility] Potassium 3.2(L) 3.5 - 5.5 mmol/L 08/24/2025 1:44 PM [facility] Chloride 94(L) 96 - 110 mmol/L 08/24/2025 1:44 PM [facility] CO2 33(H) 21 - 32 mmol/L 08/24/2025 1:44 PM [facility] Anion Gap 8 3 - 11 08/24/2025 1:44 PM [facility] Glucose 85 70 - 100 mg/dL 08/24/2025 1:44 PM [facility] BUN <5(L) 5 - 25 mg/dL 08/24/2025 1:44 PM [facility] Creatinine 0.47(L) 0.50 - 1.10 mg/dL 08/24/2025 1:44 PM [facility] LAB eGFR 93 >=60 mL/min/1. 73m2 08/24/2025 1:44 PM [facility] LAB Comment:Calculation based on the Chronic Kidney Disease Epidemiology Collaboration (CKD-EPI) equation refit without adjustment for race. Calcium 7.7(L) 8.5 - 10.5 mg/dL 08/24/2025 1:44 PM [facility] Blood Venous blood specimen / Unknown Venipuncture / Unknown 08/24/2025 8:31 AM EST 08/24/2025 11:08 AM EST us Roverto Jurado MD LAB BLOOD ORDERABLES Final Result [facility] [address] [place] [address], * (ABNORMAL) Comprehensive metabolic panel (08/22/2025 6:42 AM EST) Only the most recent of2 resultswithin the time period is included. Sodium 137 133 - 145 mmol/L 08/22/2025 11:53 AM [facility] Potassium 3.6 3.5 - 5.5 mmol/L 08/22/2025 11:53 AM [facility] Chloride 97 96 - 110 mmol/L 08/22/2025 11:53 AM [facility] CO2 31 21 - 32 mmol/L 08/22/2025 11:53 AM [facility] Anion Gap 9 3 - 11 08/22/2025 11:53 AM [facility] Glucose 93 70 - 100 mg/dL 08/22/2025 11:53 AM [facility] BUN <5(L) 5 - 25 mg/dL 08/22/2025 11:53 AM [facility] Creatinine 0.43(L) 0.50 - 1.10 mg/dL 08/22/2025 11:53 AM [facility] LAB eGFR 95 >=60 mL/min/1. 73m2 08/22/2025 11:53 AM [facility] LAB Comment:Calculation based on the Chronic Kidney Disease Epidemiology Collaboration (CKD-EPI) equation refit without adjustment for race. Calcium 8.0(L) 8.5 - 10.5 mg/dL 08/22/2025 11:53 AM [facility] LAB AST (SGOT) 20 10 - 42 unit/L 08/22/2025 11:53 AM [facility] ALT (SGPT) 18 10 - 60 unit/L 08/22/2025 11:53 AM [facility] Alkaline Phosphatase 115 42 - 121 unit/L 08/22/2025 11:53 AM [facility] Total Protein 5.4(L) 6.0 - 8.0 g/dL 08/22/2025 11:53 AM [facility] Albumin 3.2 3.2 - 5.0 g/dL 08/22/2025 11:53 AM [facility] Total Bilirubin 0.6 0.0 - 1.4 mg/dL 08/22/2025 11:53 AM [facility] Blood Venous blood specimen / Unknown Venipuncture / Unknown 08/22/2025 6:42 AM EST 08/22/2025 9:46 AM EST us Roverto Jurado MD LAB BLOOD ORDERABLES Final Result [facility] [address] [place] [address], * SST tube (08/19/2025 6:01 AM EST) Extra Tube Hold for add-ons. 08/19/2025 12:02 PM EST [facility] LAB Comment:Auto resulted. Blood Venous blood specimen / Unknown Venipuncture / Unknown 08/19/2025 6:01 AM EST 08/19/2025 10:45 AM EST us Roverto Jurado MD LAB BLOOD ORDERABLES Final Result Performing Organization Address City/[facility]/ZIP Co de Phone Number [facility] [address] [place] [address], [place] [phone] * (ABNORMAL) Hemoglobin A1c (08/18/2025 5:47 AM EST) Hemoglobin A1C 7.0(H) <6.5 % LAB CHEMISTRY METHOD 08/18/2025 2:27 PM EST [facility] Mean Bld Glu Estim. 154 mg/dL LAB CHEMISTRY METHOD 08/18/2025 2:27 PM EST [facility] Blood Venous blood specimen / Unknown Venipuncture / Unknown 08/18/2025 5:47 AM EST 08/18/2025 10:57 AM EST Roverto Jurado MD LAB BLOOD ORDERABLES Final Result Performing Organization Address [facility] de Phone Number [facility] [address] [place] [address], [place] [phone] from Last 3 Months Insurance MEDICARE [facility] [employer] MED[employer]ARE Care Teams Thread Laster Relationship Specialty Start Date End Date Mario Berrios MD [address] [place] [address] PCP - General Internal Medicine 04/04/25
--- OUTSIDE RECORDS SUMMARY | 2025-08-25 01:34 | XMS_ITS | Encounter Summary ---
Author Organization [facility] Address [address] [place] [address] Care Team Providers Care Plate Sensitizer Name Role Phone Mario Berrios MD Primary Care Provider [phone] Encounter Details Date Type Department Care Team (Late st Contact Info) Description 08/19/2025 Lab Requisition [facility] Lab [address] [facility] [place] [address] Roverto Jurado MD [address] [place] [address] Malignant (primary) neoplasm, unspecified (CMS/HCC V24, CMS/HCC V28); Unspecified atrial fibrillation (CMS/HCC V24, CMS/HCC V28); [...] Procedure Name Priority Date/Time Associated Diagnosis Comments SST - GOLD Routine 08/19/2025 6:01 AM EST Malignant (primary) neoplasm, unspecified (CMS/HCC V24, CMS/HCC V28) Unspecified atrial fibrillation (CMS/HCC V24, CMS/HCC V28) Type 2 diabetes mellitus without complications (CMS/HCC V24, CMS/HCC V28) documented in this encounter Results * SST tube (08/19/2025 6:01 AM EST) Extra Tube Hold for add-ons. 08/19/2025 12:02 PM EST [facility] LAB Comment:Auto resulted. Blood Venous blood specimen / Unknown Venipuncture / Unknown 08/19/2025 6:01 AM EST 08/19/2025 10:45 AM EST us Roverto Jurado MD LAB BLOOD ORDERABLES Final Result [facility] LAB [address] [place] [address], documented in this encounter Visit Diagnoses Diagnosis Malignant (primary) neoplasm, unspecified ([facility]/HCC V24, [facility] V28) Unspecified atrial fibrillation ([facility] V24, [facility] V28) Type 2 diabetes mellitus without complications ([facility] V24, [facility] V28) documented in this encounter Care Teams Plate Sensitizer Relationship Specialty Start Date End Date Mario Berrios MD [address] [place] [address] PCP - General Internal Medicine 04/04/25 documented as of this encounter
--- OUTSIDE RECORDS SUMMARY | 2025-08-25 01:34 | XMS_ITS | Encounter Summary ---
Author Organization [facility] Address [address] [place] [address] Care Team Providers Care Wire Spooler Name Role Phone Mario Berrios MD Primary Care Provider [phone] Encounter Details Date Type Department Care Team (Late st Contact Info) Description 04/15/2025 Lab Requisition [facility] Lab [address] [facility] [place] [address] Mario Berrios MD [address] [place] [phone] Essential (primary) hypertension Social History Tobacco Use [...] AM EDT) WBC 8.9 4.8 - 10.8 K/[facility] LAB HEMETOLOGY METHOD 04/16/2025 9:51 AM EDT [facility] LAB RBC 4.30 3.80 - 4.80 M/[facility] LAB HEMETOLOGY METHOD 04/16/2025 9:51 AM EDT [facility] LAB Hemoglobin 13.5 11.5 - 16.0 g/dL LAB HEMETOLOGY METHOD 04/16/2025 9:51 AM EDT [facility] LAB Hematocrit 40.4 35.0 - 47.0 % LAB HEMETOLOGY METHOD 04/16/2025 9:51 AM EDT [facility] LAB MCV 93.5 79.0 - 98.0 FL LAB HEMETOLOGY METHOD 04/16/2025 9:51 AM EDT [facility] LAB MCH 31.3 27.0 - 32.0 pcg LAB HEMETOLOGY METHOD 04/16/2025 9:51 AM EDT [facility] LAB MCHC 33.4 32.0 - 37.0 g/dL LAB [facility]ETOLOGY [facility] RDW 16.6(H) 11.0 - 15.0 % LAB HEMETOLOGY METHOD 04/16/2025 9:51 AM EDT [facility] LAB Platelets 159 130 - 400 K/mcL LAB HEMETOLOGY METHOD 04/16/2025 9:51 AM EDT [facility] LAB MPV 11.7(H) 7.0 - 11.0 FL LAB HEMETOLOGY METHOD 04/16/2025 9:51 AM EDT [facility] LAB NRBC 0.0 <1.0 % LAB HEMETOLOGY METHOD 04/16/2025 9:51 AM EDT [facility] LAB NRBC Absolute 0.00 <0.10 K/mcL LAB HEMETOLOGY METHOD 04/16/2025 9:51 AM EDT [facility] LAB Blood Venous blood specimen / Unknown Venipuncture / Unknown 04/16/2025 6:36 AM EDT 04/16/2025 9:27 AM EDT us Mario Berrios MD LAB BLOOD ORDERABLES Final Resu lt [facility] LAB [address] [place] [address], * (ABNORMAL) Basic metabolic panel (04/16/2025 6:36 AM EDT) Sodium 134 133 - 145 mmol/L LAB CHEMISTRY METHOD 04/16/2025 10:16 AM [facility] Potassium 3.8 3.5 - 5.5 mmol/L LAB CHEMISTRY METHOD 04/16/2025 10:16 AM T [facility] LAB Chloride 98 96 - 110 mmol/L LAB CHEMISTRY METHOD 04/16/2025 10:16 AM [facility] LAB CO2 26 21 - 32 mmol/L LAB CHEMISTRY METHOD 04/16/2025 10:16 AM [facility] LAB Anion Gap 10 3 - 11 LAB CHEMISTRY METHOD 04/16/2025 10:16 AM [facility] LAB Glucose 129(H) 70 - 100 mg/dL LAB CHEMISTRY METHOD 04/16/2025 10:16 AM [facility] LAB BUN 15 5 - 25 mg/dL LAB CHEMISTRY METHOD 04/16/2025 10:16 AM [facility] LAB Creatinine 0.65 0.50 - 1.10 mg/dL LAB CHEMISTRY METHOD 04/16/2025 10:16 AM [facility] LAB eGFR 86 >=60 mL/min/1. 73m2 LAB CHEMISTRY METHOD 04/16/2025 10:16 AM [facility] LAB Comment:Calculation based on the Chronic Kidney Disease Epidemiology Collaboration (CKD-EPI) equation refit without adjustment for race. BUN/Creatinine Ratio 23.1 LAB CHEMISTRY METHOD 04/16/2025 10:16 AM [facility] LAB Calcium 8.5 8.5 - 10.5 mg/dL LAB CHEMISTRY METHOD 04/16/2025 10:16 AM [facility] LAB Blood Venous blood specimen / Unknown Venipuncture / Unknown 04/16/2025 6:36 AM EDT 04/16/2025 9:26 AM EDT Mario Berrios MD LAB BLOOD ORDERABLES Final Resu lt [facility] ([facility] LAB [address] [place] [address], documented in this encounter Visit Diagnoses Diagnosis Essential (primary) hypertension Unspecified essential hypertension documented in this encounter Care Teams Wire Spooler Relationship Specialty Start Date End Date Mario Berrios MD [address] [place] [address] PCP - General Internal Medicine 04/04/25 documented as of this encounter
--- OUTSIDE RECORDS SUMMARY | 2025-08-25 01:34 | XMS_ITS | Encounter Summary ---
Author Organization [facility] Address [address] [place] [address] Care Team Providers Care Terrazzo Tile Maker Name Role Phone Mario Berrios MD Primary Care Provider [phone] Encounter Details Date Type Department Care Team (Late st Contact Info) Description 04/12/2025 Lab Requisition [facility] - Main Lab [address] [facility] [place] [address] Mario Berrios MD [address] [place] [phone] Essential (primary) hypertension Social History Tobacco Use [...] AM EDT) WBC 8.1 4.8 - 10.8 K/[facility] LAB HEMETOLOGY METHOD 04/13/2025 11:31 AM EDT [facility] LAB RBC 4.00 3.80 - 4.80 M/[facility] LAB HEMETOLOGY METHOD 04/13/2025 11:31 AM EDT [facility] LAB Hemoglobin 12.5 11.5 - 16.0 g/dL LAB HEMETOLOGY METHOD 04/13/2025 11:31 AM [facility] LAB Hematocrit 37.3 35.0 - 47.0 % LAB HEMETOLOGY METHOD 04/13/2025 11:31 AM [facility] LAB MCV 92.8 79.0 - 98.0 FL LAB HEMETOLOGY METHOD 04/13/2025 11:31 [facility] MCH 31.1 27.0 - 32.0 [...] Resu lt [facility] LAB [address] [place] [address], [place] [phone] * (ABNORMAL) Comprehensive metabolic panel (04/13/2025 8:37 [...] LAB CHEMISTRY METHOD 04/13/2025 11:42 AM T [facility] LAB Total Protein 5.3(L) 6.0 [...] Resu lt [facility] [address] [place] [address], documented in this encounter Visit Diagnoses Diagnosis Essential (primary) hypertension Unspecified essential hypertension documented in this encounter Care Teams Terrazzo Tile Maker Relationship Specialty Start Date End Date Mario Berrios MD [address] [place] [address] PCP - General Internal Medicine 04/04/25 documented as of this encounter
--- OUTSIDE RECORDS SUMMARY | 2025-08-25 01:34 | XMS_ITS | Encounter Summary ---
Author Organization [facility] Address [address] [place] [address] Care Team Providers Care Sales Development Manager Name Role Phone Mario Berrios MD Primary Care Provider [phone] Encounter Details Date Type Department Care Team (Late st Contact Info) Description 04/17/[address] [facility] - Main Lab [address] [facility] [place] [address] Mario Berrios MD [address] [place] [phone] Essential (primary) hypertension Social History Tobacco Use [...] AM EDT) WBC 6.2 4.8 - 10.8 K/[facility] LAB HEMETOLOGY METHOD 04/20/2025 11:57 AM EDT [facility] LAB RBC 4.00 3.80 - 4.80 M/[facility] LAB HEMETOLOGY METHOD 04/20/2025 11:57 AM EDT [facility] LAB Hemoglobin 12.5 11.5 - 16.0 g/dL LAB HEMETOLOGY METHOD 04/20/2025 11:57 AM EDT [facility] LAB Hematocrit 37.7 35.0 - 47.0 % LAB HEMETOLOGY METHOD 04/20/2025 11:57 AM EDT [facility] LAB MCV 94.3 79.0 - 98.0 FL LAB HEMETOLOGY METHOD 04/20/2025 11:57 AM EDT [facility] LAB MCH 31.3 27.0 - 32.0 pcg LAB HEMETOLOGY METHOD 04/20/2025 11:57 AM EDT [facility] LAB MCHC 33.2 32.0 - 37.0 g/dL LAB HEMETOLOGY METHOD [facility] RDW 16.7(H) 11.0 - 15.0 % LAB HEMETOLOGY METHOD 04/20/2025 11:57 AM EDT [facility] LAB Platelets 153 130 - 400 K/mcL LAB HEMETOLOGY METHOD 04/20/2025 11:57 AM EDT [facility] LAB MPV 11.5(H) 7.0 - 11.0 FL LAB HEMETOLOGY METHOD 04/20[facility]2025 [facility] NRBC 0.0 <1.0 % LAB HEMETOLOGY METHOD 04/20/2025 11:57 AM EDT [facility] LAB NRBC Absolute 0.00 <0.10 K/mcL LAB HEMETOLOGY METHOD 04/20/2025 11[facility]57 [facility] Blood Venous blood specimen / Unknown Venipuncture / Unknown 04/20/2025 5:25 AM EDT 04/20/2025 10:56 AM EDT us Mario Berrios MD LAB BLOOD ORDERABLES Final Resu lt [facility] [address] [place] [address], * (ABNORMAL) Comprehensive metabolic panel (04/20/2025 5:25 AM EDT) Sodium 134 133 - 145 mmol/L LAB CHEMISTRY METHOD [facility]/20[facility]2025 [facility] Potassium 4.1 3.5 - 5.5 mmol/L LAB CHEMISTRY METHOD 04/20/2025 1:10 PM T [facility] LAB Comment:Hemolysis present Chloride 96 96 - 110 mmol/L LAB CHEMISTRY METHOD 04/20/2025 1:10 PM [facility] LAB CO2 30 21 - 32 mmol/L LAB CHEMISTRY METHOD 04/20/2025 1:10 PM [facility] LAB Anion Gap 8 3 - 11 LAB CHEMISTRY METHOD 04/20/2025 1:10 PM [facility] LAB Glucose 84 70 - 100 mg/dL LAB CHEMISTRY METHOD 04/20/2025 1:10 PM [facility] LAB BUN 14 5 - 25 mg/dL LAB CHEMISTRY METHOD 04/20/2025 1:10 PM [facility] LAB Creatinine 0.56 0.50 - 1.10 mg/dL LAB CHEMISTRY METHOD 04/20/2025 1:[facility] eGFR 90 >=60 mL/min/1. 73m2 LAB CHEMISTRY METHOD 04/20/2025 1:10 PM [facility] LAB Comment:Calculation based on the Chronic Kidney Disease Epidemiology Collaboration (CKD-EPI) equation refit without adjustment for race. BUN/Creatinine Ratio 25.0 LAB CHEMISTRY METHOD 04/20/2025 1:10 PM [facility] LAB Calcium 8.1(L) 8.5 - 10.5 mg/dL LAB CHEMISTRY METHOD 04/20/2025 1:10 PM [facility] LAB AST (SGOT) 35 10 - 42 unit/L LAB CHEMISTRY METHOD 04/20/2025 1:10 PM EDT [facility] Comment:Hemolysis present ALT (SGPT) 69(H) 10 - 60 unit/L LAB CHEMISTRY METHOD 04/20/2025 1:10 PM EDT [facility] LAB Alkaline Phosphatase 156(H) 42 - 121 unit/L LAB CHEMISTRY METHOD 04/20/2025 1:10 PM EDT [facility] Total Protein 5.3(L) 6.0 - 8.0 g/dL LAB CHEMISTRY METHOD 04/20/2025 1:10 PM EDT [facility] Albumin 2.7(L) 3.2 - 5.0 g/dL LAB CHEMISTRY METHOD 04/20/2025 1:10 PM EDT [facility] Total Bilirubin 2.1(H) 0.0 - 1.4 mg/dL LAB CHEMISTRY METHOD 04/20/2025 1:10 PM EDT [facility] LAB Comment:Results verified by repeat testing Blood Venous blood specimen / Unknown Venipuncture / Unknown 04/20/2025 5:25 AM EDT 04/20/2025 12:06 PM EDT Mario Berrios MD LAB BLOOD ORDERABLES Final Resu lt [facility] [address] [place] [address], documented in this encounter Visit Diagnoses Diagnosis Essential (primary) hypertension Unspecified essential hypertension documented in this encounter Care Teams Sales Development Manager Relationship Specialty Start Date End Date Mario Berrios MD [address] [place] [phone] PCP - General Internal Medicine 04/04/25 documented as of this encounter
--- OUTSIDE RECORDS SUMMARY | 2025-08-25 01:35 | XMS_ITS | Encounter Summary ---
Author Organization [employer] [facility] Address [address] [place] [address] Care Team Providers Care Hot Dip Tinning Supervisor Name Role Phone Mario Berrios MD Primary Care Provider [phone] Encounter Details Date Type Department Care Team (Late st Contact Info) Description 05/09/2025 Lab Requisition [facility] - Main Lab 299 [facility] [place] [address] Mario Berrios MD [address] [place] [address] Essential (primary) hypertension Social History [...] hypertension documented in this encounter Care Teams Hot Dip Tinning Supervisor Relationship Specialty Start Date End Date Mario Berrios MD [address] [place] [address] PCP - General Internal Medicine 04/04/25 documented as of this encounter
--- OUTSIDE RECORDS SUMMARY | 2025-08-25 01:35 | XMS_ITS | Encounter Summary ---
Author Organization [facility] Address [address] [place] [address] Care Team Providers Care Stock Layer Name Role Phone Mario Berrios MD Primary Care Provider [phone] Encounter Details Date Type Department Care Team (Late st Contact Info) Description 04/24/2025 Lab Requisition [facility] - Main Lab 299 [facility] [place] [address] Mario Berrios MD [address] [place] [phone] Essential (primary) hypertension Social History Tobacco Use [...] AM EDT) WBC 6.1 4.8 - 10.8 K/[facility] LAB HEMETOLOGY METHOD 04/27/2025 1:16 PM EDT [facility] LAB RBC 4.20 3.80 - 4.80 M/[facility] LAB HEMETOLOGY METHOD 04/27/2025 1:16 PM EDT [facility] LAB Hemoglobin 12.9 11.5 - 16.0 g/dL LAB HEMETOLOGY METHOD 04/27/2025 1:16 PM EDT [facility] LAB Hematocrit 39.2 35.0 - 47.0 % LAB HEMETOLOGY METHOD 04/27/2025 1:16 PM EDT [facility] LAB MCV 94.0 79.0 - 98.0 FL LAB HEMETOLOGY METHOD 04/27/2025 1:16 PM EDT [facility] LAB MCH 30.9 27.0 - 32.0 pcg LAB HEMETOLOGY METHOD 04/27/2025 1:16 PM EDT [facility] LAB MCHC 32.9 32.0 - 37.0 g/dL LAB HEMETOLOGY METHOD 04/27/2025 1:16 PM EDT [facility] LAB RDW 16.2(H) 11.0 - 15.0 % LAB HEMETOLOGY METHOD 04/27/2025 1:16 PM EDT [facility] LAB Platelets 173 130 - 400 K/mcL LAB HEMETOLOGY METHOD 04/27/2025 1:16 PM EDT [facility] LAB MPV 10.3 7.0 - 11.0 FL LAB HEMETOLOGY METHOD 04/27/2025 1:16 PM EDT [facility] LAB NRBC 0.0 <1.0 % LAB HEMETOLOGY METHOD 04/27/2025 1:16 PM EDT [facility] LAB NRBC Absolute 0.00 <0.10 K/mcL LAB HEMETOLOGY METHOD 04/27/2025 1:16 PM EDT [facility] LAB Blood Venous blood specimen / Unknown Venipuncture / Unknown 04/27/2025 6:26 AM EDT 04/27/2025 11:51 AM EDT us Mario Berrios MD LAB BLOOD ORDERABLES Final Resu lt [facility] [address] [place] [address], * (ABNORMAL) Comprehensive metabolic panel (04/27/2025 6:26 AM EDT) Sodium 130(L) 133 - 145 mmol/L LAB CHEMISTRY METHOD 04/27/2025 1:[address] [facility] LAB Potassium 4.1 3.5 - 5.5 mmol/L LAB CHEMISTRY METHOD 04/27/2025 1:[address] [facility] Chloride 94(L) 96 - 110 mmol/L LAB CHEMISTRY METHOD 04/27/2025 1:[address] [facility] CO2 29 21 - 32 mmol/L LAB CHEMISTRY METHOD 04/27/2025 1:[address] [facility] Anion Gap 7 3 - 11 LAB CHEMISTRY METHOD 04/27/2025 1:[address] [facility] Glucose 76 70 - 100 mg/dL LAB CHEMISTRY METHOD 04/27/2025 1:[address] [facility] BUN 9 5 - 25 mg/dL LAB CHEMISTRY METHOD 04/27/2025 1:[address] [facility] Creatinine 0.58 0.50 - 1.10 mg/dL LAB CHEMISTRY METHOD 04/27/2025 1:[address] [facility] LAB eGFR 89 >=60 mL/min/1. 73m2 LAB CHEMISTRY METHOD 04/27/2025 1:[address] [facility] LAB Comment:Calculation based on the Chronic Kidney Disease Epidemiology Collaboration (CKD-EPI) equation refit without adjustment for race. BUN/Creatinine Ratio 15.5 LAB CHEMISTRY METHOD 04/27/2025 1:[address] [facility] Calcium 8.1(L) 8.5 - 10.5 mg/dL LAB CHEMISTRY METHOD 04/27/2025 1:[address] [facility] AST (SGOT) 19 10 - 42 unit/L LAB CHEMISTRY METHOD 04/27/2025 1:02 PM EDT [facility] ALT (SGPT) 34 10 - 60 unit/L LAB CHEMISTRY METHOD 04/27/2025 1:02 PM EDT [facility] Alkaline Phosphatase 139(H) 42 - 121 unit/L LAB CHEMISTRY METHOD 04/27/2025 1:02 PM EDT [facility] Total Protein 5.4(L) 6.0 - 8.0 g/dL LAB CHEMISTRY METHOD 04/27/2025 1:02 PM EDT [facility] Albumin 2.7(L) 3.2 - 5.0 g/dL LAB CHEMISTRY METHOD 04/27/2025 1:[address] [facility] Total Bilirubin 1.2 0.0 - 1.4 mg/dL LAB CHEMISTRY METHOD 04/27/2025 1:02 PM EDT [facility] Blood Venous blood specimen / Unknown Venipuncture / Unknown 04/27/2025 6:26 AM EDT 04/27/2025 11:51 AM EDT us Mario Berrios MD LAB BLOOD ORDERABLES Final Resu lt [facility] [address] [place] [address], documented in this encounter Visit Diagnoses Diagnosis Essential (primary) hypertension Unspecified essential hypertension documented in this encounter Care Teams Stock Layer Relationship Specialty Start Date End Date Mario Berrios MD [address] [place] [phone] PCP - General Internal Medicine 04/04/25 documented as of this encounter
--- OUTSIDE RECORDS SUMMARY | 2025-08-25 01:35 | XMS_ITS | Encounter Summary ---
Author Organization [facility] Address [address] [place] [address] Care Team Providers Care Community Education Specialist Name Role Phone Mario Berrios MD Primary Care Provider [phone] Encounter Details Date Type Department Care Team (Late st Contact Info) Description 05/03/2025 Lab Requisition [facility] - Main Lab 299 [facility] [address] Mario Berrios MD [address] [place] [phone] Essential (primary) hypertension Social History Tobacco [...] AM EDT) WBC 6.1 4.8 - 10.8 K/[facility] LAB HEMETOLOGY METHOD 05/04/2025 11:11 AM EDT [facility] LAB RBC 4.00 3.80 - 4.80 M/[facility] LAB HEMETOLOGY METHOD 05/04/2025 11:11 AM EDT [facility] LAB Hemoglobin 12.3 11.5 - 16.0 g/dL LAB HEMETOLOGY METHOD 05/04/2025 11:11 AM EDT [facility] LAB Hematocrit 36.4 35.0 - 47.0 % LAB HEMETOLOGY METHOD 05/04/2025 11:11 AM EDT [facility] LAB MCV 91.9 79.0 - 98.0 FL LAB HEMETOLOGY METHOD 05/04/2025 11:11 AM EDT [facility] LAB MCH 31.1 27.0 - 32.0 pcg LAB HEMETOLOGY METHOD 05/04/2025 11:11 AM EDT [facility] LAB MCHC 33.8 32.0 - 37.0 g/dL LAB HEMETOLOGY METHOD 05/04/2025 11:11 AM [facility] LAB RDW 15.1(H) 11.0 - 15.0 % LAB HEMETOLOGY METHOD 05/04/2025 11:11 AM EDT [facility] LAB Platelets 204 130 - 400 K/mcL LAB HEMETOLOGY METHOD 05/04/2025 11:11 AM EDT [facility] LAB MPV 10.3 7.0 - 11.0 FL LAB HEMETOLOGY METHOD [facility]/04[facility]2025 [facility] NRBC 0.0 <1.0 % LAB HEMETOLOGY METHOD 05/04/2025 11:11 AM EDT [facility] LAB NRBC Absolute 0.00 <0.10 K/mcL LAB HEMETOLOGY METHOD 05/04/2025 11:11 AM EDT [facility] LAB Blood Venous blood specimen / Unknown Venipuncture / Unknown 05/04/2025 5:20 AM EDT 05/04/2025 10:22 AM EDT us Mario Berrios MD LAB BLOOD ORDERABLES Final Resu lt [facility] LAB [address] [place] [address], * (ABNORMAL) Comprehensive metabolic panel (05/04/2025 5:20 AM EDT) Sodium 131(L) 133 - 145 mmol/L LAB CHEMISTRY METHOD 05/04/2025 11:30 AM [facility] LAB Potassium 3.6 3.5 - 5.5 mmol/L LAB CHEMISTRY METHOD 05/04/2025 11:30 AM [facility] LAB Comment:Hemolysis present Chloride 94(L) 96 - 110 mmol/L LAB CHEMISTRY METHOD 05/04/2025 11:30 AM [facility] LAB CO2 28 21 - 32 mmol/L LAB CHEMISTRY METHOD 05/04/2025 11:30 AM [facility] LAB Anion Gap 9 3 - 11 LAB CHEMISTRY METHOD 05/04/2025 11:30 AM [facility] LAB Glucose 79 70 - 100 mg/dL LAB CHEMISTRY METHOD 05/04/2025 11:30 AM [facility] BUN 11 5 - 25 mg/dL LAB CHEMISTRY METHOD 05/04/2025 11:30 AM [facility] LAB Creatinine 0.44(L) 0.50 - 1.10 mg/dL LAB CHEMISTRY METHOD 05/04/2025 11:30 AM [facility] LAB eGFR 95 >=60 mL/min/1. 73m2 LAB CHEMISTRY METHOD 05/04/2025 11:30 AM [facility] LAB Comment:Calculation based on the Chronic Kidney Disease Epidemiology Collaboration (CKD-EPI) equation refit without adjustment for race. BUN/Creatinine Ratio 25.0 LAB CHEMISTRY METHOD 05/04/2025 11:30 AM [facility] LAB Calcium 8.1(L) 8.5 - 10.5 mg/dL LAB CHEMISTRY METHOD 05/04/2025 11:30 AM EDT [facility] AST (SGOT) 28 10 - 42 unit/L LAB CHEMISTRY METHOD 05/04/2025 11:30 AM EDT [facility] LAB Comment:Hemolysis present ALT (SGPT) 27 10 - 60 unit/L LAB CHEMISTRY METHOD 05/04/2025 11:30 AM EDT [facility] LAB Alkaline Phosphatase 140(H) 42 - 121 unit/L LAB CHEMISTRY METHOD 05/04/2025 11:30 AM EDT [facility] Total Protein 5.5(L) 6.0 - 8.0 g/dL LAB CHEMISTRY METHOD 05/04/2025 11:30 AM EDT [facility] Albumin 2.5(L) 3.2 - 5.0 g/dL LAB CHEMISTRY METHOD 05/04/2025 11:30 AM EDT [facility] LAB Total Bilirubin 0.8 0.0 - 1.4 mg/dL LAB CHEMISTRY METHOD 05/04/2025 11:30 AM EDT [facility] LAB Blood Venous blood specimen / Unknown Venipuncture / Unknown 05/04/2025 5:20 AM EDT 05/04/2025 10:20 AM EDT Mario Berrios MD LAB BLOOD ORDERABLES Final Resu lt [facility] LAB [address] [place] [address], documented in this encounter Visit Diagnoses Diagnosis Essential (primary) hypertension Unspecified essential hypertension documented in this encounter Care Teams Community Education Specialist Relationship Specialty Start Date End Date Mario Berrios MD [address] [place] [phone] PCP - General Internal Medicine 04/04/25 documented as of this encounter
--- OUTSIDE RECORDS SUMMARY | 2025-08-25 01:35 | XMS_ITS | Encounter Summary ---
Author Organization [facility] Address [address] [place] [address] Care Team Providers Care Moving Picture Operator Name Role Phone Mario Berrios MD Primary Care Provider [phone] Encounter Details Date Type Department Care Team (Late st Contact Info) Description 04/29/2025 Lab Requisition [facility] - Main Lab 299 [facility] [place] [address] Mario Berrios MD [address] [place] [phone] Hypo-osmolality and hyponatremia Social History Tobacco [...] LAB CHEMISTRY METHOD 04/29/2025 3:38 PM EDT [facility] LAB Potassium 4.3 3.5 - 5.5 mmol/L LAB CHEMISTRY METHOD 04/29/2025 3:38 PM EDT [facility] LAB Chloride 93(L) 96 - 110 mmol/L LAB CHEMISTRY METHOD 04/29/2025 3:38 PM EDT [facility] LAB CO2 31 21 - 32 mmol/L LAB CHEMISTRY METHOD 04/29/2025 3:38 PM [facility] LAB Anion Gap 6 3 - 11 LAB CHEMISTRY METHOD 04/29/2025 3:38 PM [facility] LAB Glucose 90 70 - 100 mg/dL LAB CHEMISTRY METHOD 04/29/2025 3:38 PM [facility] LAB BUN 10 5 - 25 mg/dL LAB CHEMISTRY METHOD 04/29/2025 3:38 PM [facility] LAB Creatinine 0.59 0.50 - 1.10 mg/dL LAB CHEMISTRY METHOD 04/29/2025 3:38 PM [facility] LAB eGFR 88 >=60 mL/min/1. 73m2 LAB CHEMISTRY METHOD 04/29/2025 3:38 PM [facility] LAB Comment:Calculation based on the Chronic Kidney Disease Epidemiology Collaboration (CKD-EPI) equation refit without adjustment for race. BUN/Creatinine Ratio 16.9 LAB CHEMISTRY METHOD 04/29/2025 3:38 PM [facility] LAB Calcium 8.3(L) 8.5 - 10.5 mg/dL LAB CHEMISTRY METHOD 04/29/2025 3:38 PM [facility] LAB AST (SGOT) 16 10 - 42 unit/L LAB CHEMISTRY METHOD 04/29/2025 3:38 PM [facility] LAB ALT (SGPT) 34 10 - 60 unit/L LAB CHEMISTRY METHOD 04/29/2025 3:38 PM [facility] LAB Alkaline Phosphatase 131(H) 42 - 121 unit/L LAB CHEMISTRY METHOD 04/29/2025 3:38 PM [facility] LAB Total Protein 5.2(L) 6.0 - 8.0 g/dL LAB CHEMISTRY METHOD 04/29/2025 3:38 PM [facility] LAB Albumin 2.7(L) 3.2 - 5.0 g/dL LAB CHEMISTRY METHOD 04/29/2025 3:38 PM EDT [facility] LAB Total Bilirubin 1.2 0.0 - 1.4 mg/dL LAB CHEMISTRY METHOD 04/29/2025 3:38 PM EDT [facility] LAB Blood Venous blood specimen / Unknown Venipuncture / Unknown 04/29/2025 6:15 AM EDT 04/29/2025 11:49 AM EDT us Mario Berrios MD LAB BLOOD ORDERABLES Final Resu lt [facility] LAB [address] [place] [address], documented in this encounter Visit Diagnoses Diagnosis Hypo-osmolality and hyponatremia documented in this encounter Care Teams Moving Picture Operator Relationship Specialty Start Date End Date Mario Berrios MD [address] [place] [address] PCP - General Internal Medicine 04/04/25 documented as of this encounter
--- OUTSIDE RECORDS SUMMARY | 2025-08-25 01:35 | XMS_ITS | Encounter Summary ---
Author Organization [employer] Address [address] [place] [address] Care Team Providers Care Reject Opener Name Role Phone Mario Berrios MD Primary Care Provider [phone] Encounter Details Date Type Department Care Team (Late st Contact Info) Description 04/09/2025 Lab Requisition [facility] - Main Lab 299 [facility] [place] [address] Mario Berrios MD [address] [place] [phone] Dysuria; Urinary tract infection, site not [...] reflex microscopic (04/08/2025 4:45 PM EDT) Specific [place] Urine 1.028 1.003 - 1.030 LAB URINALYSIS [...] Final Resu lt [facility] [address] [place] [address], [place] [phone] * (ABNORMAL) Culture urine (04/08/2025 4:45 PM [...] Mario Berrios MD LAB MICROBIOLOGY - GENERAL [facility] Final Result Performing Organization Address City/State/[facility] Co de Phone Number [facility] ([facility] [address] [place] [address], documented in this encounter Visit Diagnoses Diagnosis Dysuria Urinary tract infection, site not specified documented in this encounter Care Teams Reject Opener Relationship Specialty Start Date End Date Mario Berrios MD [address] [place] [address] PCP - General Internal Medicine 04/04/25 documented as of this encounter
== END 2025-08-24 16:38 | disposition home or self-care (01) ==
LOC: HO.HGS 15:55
PROVIDERS: PCP Internal Medicine; Visit Provider Surgery
DX: Z93.3 Colostomy status (principal)
CPT/HCPCS: 99024

== ENCOUNTER → 2025-08-24 15:54 | Outpatient (BNVA) | payer MEDICARE, OTHER, SELFPAY | PROVIDERS: PCP Internal Medicine; Visit Provider Surgery | DX: Z93.3 Colostomy status (principal) | CPT/HCPCS: 99212 ==

== ENCOUNTER 2025-08-26 14:38 | Outpatient (AMB) | payer MEDICARE, OTHER, SELFPAY ==
--- NOTE | 2025-08-26 15:01 | A.OFFVIS_ITS ---
Vital Signs 08/26/25 15:02 Height 5 ft 6 in Weight 134 lb 7.712 oz BMI 21.7 BP 136/64 Blood Pressure Location Lt brachial Position Sitting Pulse 88 Pulse Source Pulse Oximeter Intake Visit Reasons: 1 mth f/up Life Enrichment Manager Required: No Accompanied by: Daughter Allergies hydralazine Allergy (Verified 08/24/25 16:11) Unknown hydrochlorothiazide Adverse Reaction (Intermediate, Verified 08/24/25 16:11) Palpitations amlodipine Adverse Reaction (Verified 08/24/25 16:11) DIZZINESS sotalol Adverse Reaction (Verified 08/24/25 16:11) Palpitations Medication List - Last Reconciled 08/26/25 by Michael Byrne, ALEX apixaban 5 mg PO BID atorvastatin (Lipitor) 10 mg PO BEDTIME digoxin 0.125 mg PO DAILY empagliflozin (Jardiance) 10 mg PO DAILY furosemide (Lasix) 40 mg PO DAILY PRN Lactobacillus rhamnosus GG (Culturelle) 1 cap PO BID metoprolol succinate ER 50 mg PO BID omeprazole 20 mg PO DAILY@0630 ondansetron 8 mg PO Q8H PRN oxycodone 5 mg PO Q8H PRN potassium chloride 20 mEq PO DAILY HPI Comments Details: This is an 84-year-old female patient coming in for a follow-up visit. Patient with a history of hypertension, hyperlipidemia, AFib, diabetes, and multiple myeloma. Back in May, patient was in the hospital for AFib with RVR where patient's medications were adjusted however patient was not taking this as prescribed upon discharge. At her last visit, patient was noted noted to be tachycardic. Since then, patient has been to the hospital again for abdominal pain where it was noted that patient had acute diverticulitis with pelvic abscess and underwent sigmoid loop colostomy and drainage of abscess. In the hospital, patient had an episode of AFib with a RVR but upon resumption of her medications, patient stabilized. Today, patient is in a wheelchair and is coming in from a rehab center. Patient is reporting intermittent pain from her colostomy otherwise is reporting feeling well overall without any cardiac symptoms of exertional chest pain, shortness of breath, palpitations, dizziness, orthopnea, PND, leg edema, presyncope or syncope. Patient reports compliance with all medications. [facility] Medical History GIB (gastrointestinal bleeding) Persistent atrial fibrillation Colostomy in place CHF (congestive heart failure) Paroxysmal atrial fibrillation Atrial fibrillation with RVR Hyponatremia DM type 2 (diabetes mellitus, type 2) Spinal stenosis 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 Lesion of bone of lumbosacral spine Multiple myeloma Lower back pain Impacted cerumen of both ears Dysplastic nevus Vitamin D deficiency Annual physical exam Palpitations Leukoplakia of tongue Hyperlipidemia Peripheral neuropathy Dysuria Surgical History Hx of surgical procedure (~08/07/25) H/O arthroscopy of knee H/O varicose vein ligation H/O: hysterectomy H/O mastectomy H/O colonoscopy Family History Father No problems noted. Mother No problems noted. Son Diabetes Social History Household Members: None Household Members Other:: d/c from [facility] 05/06 staying w/ daughter Barbara at this time. Housing: House Are you a primary healthcare network pricing consultant to a significant other at home: No Do you presently have visiting nurse or other home services: No Alcohol intake: former Comment: reports discomfort Patient Tobacco Use Status: Never used Tobacco e-Cigarette/Vaping Use: Never Used Second Hand Smoke Exposure: No Advance Directives Date on File: 12/10/24 service: No Current occupational status: retired Gender identity: Female Cognitive needs: No Hearing needs: No Vision needs: Yes Review of Systems Const Denies daytime sleepiness, Denies difficulty sleeping, Denies snoring, Denies stops breathing during sleep and Denies weakness Card Denies chest pain, Denies rapid heart rate, Denies irregular heart rhythm, Denies claudication, Denies leg edema, Denies lightheadedness, Denies palpitations, Denies dyspnea, Denies dyspnea on exertion, Denies orthopnea, Denies paroxysmal nocturnal dyspnea and Denies slow heart rate Resp Denies cough, Denies dyspnea, Denies dyspnea on exertion and Denies snoring GI Reports no additional complaints, Denies hematochezia, Denies change in stool character and Denies dyspepsia Musc Denies abnormal gait, Denies muscle weakness and Denies numbness Neuro Denies abnormal gait, Denies numbness and Denies weakness Endo Denies palpitations Physical Exam Vital Signs: Last Vital Signs Pulse 88 08/26/25 15:02 BP 136/64 08/26/25 15:02 BMI result Body Mass Index 21.7 Const General: cooperative, healthy appearing, comfortable and no acute distress Orientation/consciousness: patient oriented x3 Limitations: wheelchair HEENT Head: Yes normal to inspection Neck Neck: Yes normal visual inspection, Yes trachea midline and Yes supple Chest Chest palpation & inspection: normal inspection of the chest Resp Effort & Inspection: normal respiratory effort Auscultation: clear to auscultation bilaterally, no crackles, no rales, no rhonchi and no wheezes Cardio Jugular venous distension: no JVD Palpation: normal PMI Rate: regular rate Rhythm: abnormal rhythm irregularly irregular Heart sounds: S1 normal heart sound present, S2 normal heart sound present, no click, no gallops, no murmurs and no rubs Peripheral pulses: Peripheral pulses 2+ throughout GI Other: Colostomy present Inspection: Yes normal to inspection Auscultation: normal bowel sounds Skin General skin exam: no rashes or lesions noted Neuro General: patient oriented x3 Extrem General: Yes normal to inspection, No no pedal edema and No calf tenderness Psych Appearance: grossly normal Mental Status: mental status grossly normal Speech and movement: Normal speech and movement present Assessment & Plan Assessment & Plan (1) Persistent atrial fibrillation: Code(s): I48.19 - Other persistent atrial fibrillation Category: Medical Plan: 12/17/2024-patient underwent myocardial perfusion study which was normal. 06/15/2025-Holter study showed baseline a fib with the average heart rate of 94 beats per minute, frequent pauses longest of 4.3 seconds. In the hospital back in May, patient was noted to be in AFib with RVR where they had adjusted medications but patient was not taking it as prescribed due to some confusion. Recently patient was in the hospital for diverticulitis with pelvic abscess and is status post sigmoid loop colostomy and drainage of pelvic abscess. Clinically stable and without any cardiac symptoms. Continue Eliquis for full anticoagulation therapy. No reported signs of bleeding. Continue digoxin and metoprolol therapy. (2) CHF (congestive heart failure): Code(s): I50.9 - Heart failure, unspecified Category: Medical Qualifiers: Heart failure chronicity: acute on chronic Heart failure type: unspecified Qualified Code(s): I50.9 - Heart failure, unspecified Plan: 05/25/2025-echo study showed a normal LV systolic function with the ejection fraction between 60-65% with mild LVH, moderate biatrial enlargement, mild aortic and mitral regurgitation, upper limits of normal RV systolic pressure with mildly elevated right atrial pressures, and trivial pericardial effusion. Clinically euvolemic and without any symptoms. On the increased dose of Lasix, patient was noted to have lower potassium levels and therefore is now reduced to 20 mg on an as-needed basis. Continue Jardiance therapy. Advised on low-salt diet, daily weight monitoring, and compression socks as needed for edema. Discussed signs and symptoms to watch for with heart failure. Patient verbalizes understanding. (3) Hypertension: Code(s): I10 - Essential (primary) hypertension Category: Medical Plan: Blood pressure today is well-controlled. Continue current regimen with a blood pressure goal less than 130/80. (4) Hyperlipidemia: Code(s): E78.5 - Hyperlipidemia, unspecified Category: Medical Plan: No recent LDL. Continue statin therapy with an LDL goal less than 70. Advised on heart healthy diet, exercise as tolerated, med compliance, and aggressive management of vascular risk factors. Follow up in 6 months, sooner if needed. Patient will call the office with any concerns or change in symptoms. This note was generated using voice recognition software. While every effort has been made to ensure accuracy and proper training analyst, there may be occasional errors that could affect the content or meaning of the described symptoms. Medications: Changed From furosemide (Lasix) 40 mg PO DAILY PRN Fluid Retention To furosemide (Lasix) 20 mg PO DAILY PRN Coding Level of Care Code Est Pt Level 4 (07161) Add On Problem Visit Only Diagnoses Persistent atrial fibrillation I48.19 CHF (congestive heart failure) I50.9 Heart failure chronicity: acute on chronic Heart failure type: unspecified Hypertension I10 Hyperlipidemia E78.5 Time Spent (min) 31 Comment Time spent in reviewing the chart, test results, assessment, counseling and documentation.
[2025-08-26 15:02] VITALS: BP 136/64; PULSE 88; BMI 21.7
--- OUTSIDE RECORDS SUMMARY | 2025-08-26 22:59 | XMS_ITS | Encounter Summary ---
Author Organization [employer] [facility] Address [address] [place] [address] Care Team Providers Care Wood Bucker Name Role Phone Mario Berrios MD Primary Care Provider [phone] Encounter Details Date Type Department Care Team (Late st Contact Info) Description 08/19/2025 Lab Requisition [facility] - Main Lab [address] [facility] [place] [address] Roverto Jurado MD [address] [place] [address] Malignant (primary) neoplasm, unspecified (CMS/HCC V24, CMS/HCC [...] Hold for add-ons. 08/19/2025 12:02 PM EST [facility] Comment:Auto resulted. Blood Venous blood specimen / Unknown Venipuncture / Unknown 08/19/2025 6:01 AM EST 08/19/2025 10:45 AM EST us Roverto Jurado MD LAB BLOOD ORDERABLES Final Result [facility] [address] [place] [address], documented in this encounter Visit Diagnoses Diagnosis Malignant (primary) neoplasm, unspecified ([facility]/HCC V24, [facility] V28) Unspecified atrial fibrillation ([facility] V24, [facility] V28) Type 2 diabetes mellitus without complications ([facility] V24, [facility] V28) documented in this encounter Care Teams Wood Bucker Relationship Specialty Start Date End Date Mario Berrios MD [address] [place] [address] PCP - General Internal Medicine 04/04/25 documented as of this encounter
--- OUTSIDE RECORDS SUMMARY | 2025-08-26 22:59 | XMS_ITS | Encounter Summary ---
Author Organization [facility] Address [address] [place] [address] Care Team Providers Care Environmental Remediation Engineer Name Role Phone Mario Berrios MD Primary Care Provider [phone] Encounter Details Date Type Department Care Team (Late st Contact Info) Description 04/04/2025 Lab Requisition [facility] - Main Lab [address] [facility] [place] [address] Mario Berrios MD [address] [place] [phone] Essential (primary) hypertension Social History Tobacco Use [...] mmol/L LAB CHEMISTRY METHOD 04/04/2025 1:38 PM [facility] CO2 31 21 - 32 mmol/L LAB CHEMISTRY METHOD 04/04/2025 1:38 PM [facility] Anion Gap 8 3 - 11 LAB CHEMISTRY METHOD 04/04/2025 1:38 PM [facility] Glucose 122(H) 70 - 100 mg/dL LAB CHEMISTRY METHOD 04/04/2025 1:38 PM [facility] BUN 21 5 - 25 mg/dL LAB CHEMISTRY METHOD 04/04/2025 1:38 PM [facility] Creatinine 0.62 0.50 - 1.10 mg/dL LAB CHEMISTRY METHOD 04/04/2025 1:38 PM [facility] eGFR 87 >=60 mL/min/1. 73m2 LAB CHEMISTRY METHOD 04/04/2025 1:38 PM [facility] Comment:Calculation based on the Chronic Kidney Disease Epidemiology Collaboration (CKD-EPI) equation refit without adjustment for race. BUN/Creatinine Ratio 33.9 LAB CHEMISTRY METHOD 04/04/2025 1:38 PM [facility] Calcium 9.0 8.5 - 10.5 mg/dL LAB CHEMISTRY METHOD 04/04/2025 1:38 PM [facility] AST (SGOT) 17 10 - 42 unit/L LAB CHEMISTRY METHOD 04/04/2025 1:38 PM [facility] ALT (SGPT) 34 10 - 60 unit/L LAB CHEMISTRY METHOD 04/04/2025 1:38 PM [facility] Alkaline Phosphatase 65 42 - 121 unit/L LAB CHEMISTRY METHOD 04/04/2025 1:38 PM [facility] Total Protein 5.6(L) 6.0 - 8.0 g/dL LAB CHEMISTRY METHOD 04/04/2025 1:38 PM [facility] Albumin 2.9(L) 3.2 - [...] [facility] [address] [place] [address], [place] [phone] * (ABNORMAL) Complete blood count (04/04/2025 8:27 [...] [facility] [address] [place] [address], documented in this encounter Visit Diagnoses Diagnosis Essential (primary) hypertension Unspecified essential hypertension documented in this encounter Care Teams Environmental Remediation Engineer Relationship Specialty Start Date End Date Mario Berrios MD [address] [place] [address] PCP - General Internal Medicine 04/04/25 documented as of this encounter
--- OUTSIDE RECORDS SUMMARY | 2025-08-26 22:59 | XMS_ITS | Encounter Summary ---
Author Organization [facility] Address [address] [place] [address] Care Team Providers Care Radiation / Chemistry Technician Name Role Phone Mario Berrios MD Primary Care Provider [phone] Encounter Details Date Type Department Care Team (Late st Contact Info) Description 04/22/2025 Lab Requisition [facility] - Main Lab [address] [facility] [place] [address] Mario Berrios MD [address] [place] [phone] Essential (primary) hypertension Social History Tobacco Use [...] mmol/L LAB CHEMISTRY METHOD 04/23/2025 10:52 AM [facility] CO2 33(H) 21 - 32 mmol/L LAB CHEMISTRY METHOD 04/23/2025 10:52 AM [facility] Anion Gap 5 3 - 11 LAB CHEMISTRY METHOD 04/23/2025 10:52 AM [facility] Glucose 88 70 - 100 mg/dL LAB CHEMISTRY METHOD 04/23/2025 10:52 AM [facility] BUN 9 5 - 25 mg/dL LAB CHEMISTRY METHOD 04/23/2025 10:52 AM [facility] Creatinine 0.60 0.50 - 1.10 mg/dL LAB CHEMISTRY METHOD 04/23/2025 10:52 AM [facility] eGFR 88 >=60 mL/min/1. 73m2 LAB CHEMISTRY METHOD 04/23/2025 10:52 AM [facility] Comment:Calculation based on the Chronic Kidney Disease Epidemiology Collaboration (CKD-EPI) equation refit without adjustment for race. BUN/Creatinine Ratio 15.0 LAB CHEMISTRY METHOD 04/23/2025 10:52 AM [facility] Calcium 7.4(L) 8.5 - 10.5 mg/dL LAB CHEMISTRY METHOD 04/23/2025 10:52 AM [facility] Blood Venous blood specimen / Unknown Venipuncture / Unknown 04/23/2025 5:52 AM EDT 04/23/2025 9:52 AM EDT us Mario Berrios MD LAB BLOOD ORDERABLES Final Resu lt [facility] [address] [place] [address], * (ABNORMAL) Complete blood count (04/23/2025 5:52 AM EDT) WBC 6.0 4.8 - 10.8 K/mcL LAB HEMETOLOGY METHOD 04/23/2025 10:13 AM [facility] RBC 4.00 3.80 - 4.80 M/mcL LAB HEMETOLOGY METHOD 04/23/2025 10:13 AM [facility] Hemoglobin 12.6 11.5 - 16.0 g/dL LAB HEMETOLOGY METHOD 04/23/2025 10:13 AM [facility] Hematocrit 37.6 35.0 - 47.0 % LAB HEMETOLOGY METHOD 04/23/2025 10:13 AM [facility] MCV 93.5 79.0 - 98.0 FL LAB HEMETOLOGY METHOD 04/23/2025 10:13 AM [facility] MCH 31.3 27.0 - 32.0 pcg LAB HEMETOLOGY METHOD 04/23/2025 10:13 AM [facility] MCHC 33.5 32.0 - 37.0 g/dL LAB HEMETOLOGY METHOD 04/23/2025 10:13 AM [facility] RDW 16.2(H) 11.0 - 15.0 % LAB HEMETOLOGY METHOD 04/23/2025 10:13 AM [facility] Platelets 157 130 - 400 K/mcL LAB HEMETOLOGY METHOD 04/23/2025 10:13 AM [facility] MPV 11.1(H) 7.0 - 11.0 FL LAB HEMETOLOGY METHOD 04/23/2025 10:13 AM [facility] NRBC 0.0 <1.0 % LAB HEMETOLOGY METHOD 04/23/2025 10:13 AM [facility] NRBC Absolute 0.00 <0.10 K/mcL LAB HEMETOLOGY METHOD 04/23/2025 10:13 AM [facility] Blood Venous blood specimen / Unknown Venipuncture / Unknown 04/23/2025 5:52 AM EDT 04/23/2025 9:50 AM EDT Mario Berrios MD LAB BLOOD ORDERABLES Final Resu lt [facility] [address] [place] [address], documented in this encounter Visit Diagnoses Diagnosis Essential (primary) hypertension Unspecified essential hypertension documented in this encounter Care Teams Radiation / Chemistry Technician Relationship Specialty Start Date End Date Mario Berrios MD [address] [place] [address] PCP - General Internal Medicine 04/04/25 documented as of this encounter
--- OUTSIDE RECORDS SUMMARY | 2025-08-26 22:59 | XMS_ITS | Data Portability ---
Author Organization [facility], Main Office Address [address] [place] [address] Care Team Providers Care Sculpture Conservator Name Role Phone [facility] OTHER ISABELA MARQUEZ Primary Care Provider [...] Address Organization Details Recorded Time Recurrent falls 525941173 Active 2024 Gucci Harris [address] [facility], [address], [place], [address], [facility] 5 11:35:33 Drug-induced constipation 82138212 Active 2024 Gucci Harris [address] [facility], [address], [place], [address], [facility] 5 11:35:33 Anxiety 04111558 Active 2024 Gucci Harris [address] [facility] [facility], [address], [place], [address], [facility] 5 11:35:34 Gastroesophage al reflux disease 177179187 Active 2024 Gucci Harris [address] [facility] [facility], [address], [place], [address], [facility] 5 11:35:36 Acute hyponatremia 8679460 Active 2024 Gucci Harris [address], [address], [place], [address], [facility] 5 11:35:37 Asthenia 18544635 Active 2024 Gucci Harris [address], [place], [address], [facility] 5 11:35:39 Peripheral neuropathic pain 125310862 Active 2024 Gucci Harris [address], [address], [place], [address], [facility] 5 11:35:40 Chronic low back pain 189235885 Active 2024 Gucci Harris [address], [address], [place], [address], [facility] 5 11:35:41 Multiple myeloma 907431333 Active 2024 Gucci Harris [address], [address], [place], [address], [facility] 5 11:35:43 Hyperlipidemia 31790618 Active 2024 Gucci Harris [address], [place], [address], [facility] 5 11:35:45 Essential hypertension 24333218 Active 2024 Gucci Harris [address], [place], [address], [facility] 5 11:35:46 Persistent atrial fibrillation 794394505 Active 2024 Gucci Harris [address], [place], [address], [facility] 5 11:35:50 Problem Notes None recorded. Medical Equipment None Reported. Allergies Allergen ID Allergen Name Allergen Category Reaction Reaction Severity Criticality Documentation Date Start Date Code Code System Note Provider Name and Address Organization Details Recorded Time 47063 [facility] medicatio n Not available Not available Not available 03/30/2025 5470 RxNorm Gucci Harris [address] [facility], [address], [place], [address], [facility] [employer] [facility] 5 10:36:02 84399 sotalol medicatio n Not available Not available Not available 03/30/2025 9947 RxNorm Gucci Harris [address] [facility] [address] [facility], [address], [place], [address], [facility] [employer] [facility] 5 10:36:27 78374 amlodipin e medicatio n Not available Not available Not available 03/30/2025 74819 RxNorm Gucci Harris [address] [facility] [facility], [address], [place], [address], [facility] 5 10:36:33 92937 hydrochlo rothiazid e medicatio n Not available Not available Not available 03/30/2025 5487 RxNorm Gucci Harris [address] [facility], [address], [place], [address], [employer] [facility] 5 10:56:32 Medications Name Sig Start Date [...] Address Organization Details Last Updated DateTime 5 08804.7 5 g 97 [degF] 84 /min 16 /min 100/67 mm[Hg] Walt Cruz MD [address] [facility], [address], [place], [address], [place] [facility] 5 12:05:50 Social History Question Answer Notes LastModified by Organizat ion Details LastModified Time Tobacco Smoking Status Never Smoker Brant [address] [facility] [facility], [address], [place], [address], [facility] 04/01/2025 09:25:48 Do You Have An [...] ICD10 Code Diagnosis IMO Codes Diagnosis Note 172022 Jean-Paul [facility] [address] [place] [address] 03/30/2025 10:34:37 03/31/2025 15:55:46 Persistent atrial fibrillation 721676137 I48.19 201779 continue diltiazem 240mg qd, metoprolol 50mg BID (hold for SBP < 90, HR < 60) and eliquis 5mg BIDmonitor rate Essential hypertension 97563585 I10 01338 Continue diltiazem 240 qd with parameters , metoprolol 50mg BIDmonitor BP and labs Hyperlipidemia 67009829 E78.5 49857291 Continue simvastati n 20mg qhsmonitor lipids PRN Multiple myeloma 8114633 06 C90.00 8616157 multiple thoracic and lumbar metastatic lesions with multilevel lumbar compressio nfollows oncology with future plans for palliative radiationC ontinue prednisone taper 40mg qd x 5d, 30mg qd x 5d, 20mg qd x 5d, 10mg qd x 5dupdate onc with concerns Peripheral neuropathic pain 357187675 M79.2 39487874 Continue hydromorph one 2mg q4h PRN- monitor utilizatio n Asthenia 58910027 R53.1 78848 Admit to services PT/OT for strengthen ing, balance, gait training, safety and function.C ontinue fall precaution s.Monitor for safety. Acute hyponatremia 57140 02 E87.1 68224 multifacto rial secondary to poor po intake and SIADH from MMContinue sodium tablet 1g TID1L fluid restrictio nmonitor labs Gastroesop hageal reflux disease 367115244 K21.9 6375252549 continue omeprazole 20mg qdmonitor sxs Anxiety 41862600 F41.9 94718 continue lorazepam 0.5mg qhs PRN x 14 days and monitor utilizatio nmonitor mood and consult if needed Chronic low back pain 27 3514240 M54.50 G89.29 2130690100 secondary to progressiv e MMContinue hydromorph one 2mg q4h PRN- monitor utilizatio n, hydrocorti sone topically BID, lidocaine patch 5% qd Drug-induc ed constipation 30336302 K59.03 8840 continue senna 17.2mg qd and colace 100mg BIDmonitor bowels and titrate PRN Recurrent falls 72821691 2 R29.6 13937 Continue fall precaution s.Monitor for safety. 147113 Walt Cruz MD [facility] [address] [address] 04/02/2025 12:05:16 04/06/2025 15:54:20 Asthenia 22906255 R53.1 54493 PT OT eval and treatmonit or need for increased support in community Abnormal gait 80094792 R 26.81 572745 therapy to followmoni tor fall risk Persistent atrial fibrillation 835243397 I48.19 673401 rapid a fib required cardizem drip and followed by cards remains on eliquismon itor for rate control Essential hypertension 54205857 I10 71543 monitor bp and need to titrate medication s Hyperlipidemia 77696728 E78.5 22475726 simvastati n 20 mg qdcontinue d Multiple myeloma 1615225 06 C90.00 1295857 multiple myeloma with thoracic and lumbar mets, with increasing weaknessre c is for palliative radiation however held due to elevated liver enzymescoo rdinate with oncology Peripheral neuropathic pain 755545113 M79.2 24478034 see abovemulti factorialm onitor sx relief and need to titrate medication Acute hyponatremia 93470 02 E87.1 44045 Acute on chronic hyponatrem ia with SIADH and multiple myeloma eval by nephro and started on salt tabs and fluid restrictio nupdate nephro with concerns Gastroesop hageal reflux disease 167865482 K21.9 5095296520 omeprazole 20 mg qdmonitor sx relief Drug-induc ed constipation 54662067 K59.03 8840 bowel protocolmo nitor for effect Degenerati ve lumbar spinal stenosis 623347646 M48.061 508545 severe canal stenosis at L2-3, discussed with neurosurge ry and treated with decadron 4 mg q 8coordinat e with neurosurge ry 734092 Cayla_Gavin M[facility] AT [address] [address] 04/03/2025 08:05:24 04/07/2025 08:14:36 Persistent atrial fibrillation 842767970 I48.19 178653 continue diltiazem 240mg qd, metoprolol 50mg BID (hold for SBP < 90, HR < 60) and eliquis 5mg BIDfacilit y as been out of diltiazem- rate has been uncontroll ed 80-120s Essential hypertension 18867842 I10 30356 Continue diltiazem 240 qd with parameters , metoprolol 50mg BID Hyperlipidemia 47714559 E78.5 54282397 Continue simvastati n 20mg qhsmonitor lipids outpatient Multiple myeloma 2554684 06 C90.00 7720916 multiple thoracic and lumbar metastatic lesions with multilevel lumbar compressio nfollows oncology with future plans for palliative radiationC ontinue prednisone taper 40mg qd x 5d, 30mg qd x 5d, 20mg qd x 5d, 10mg qd x 5df/u Onc as planned Chronic low back pain 27 5773955 M54.50 G89.29 0060360925 secondary to progressiv e MMContinue hydromorph one 2mg q4h PRN- monitor utilizatio n, hydorcorti sone topically BID, lidocaine patch 5% qd Peripheral neuropathic pain 925248024 M79.2 04067261 Continue hydromorph one 2mg q4h PRN Asthenia 57525292 R53.1 18317 Particpate d in PT/OT for strengthen ing, balance, gait training, safety and function. Acute hyponatremia 47206 02 E87.1 76523 multifacto rial secondary to poor po intake and SIADH from MMmost recent NA 131Continu e sodium tablet 1g TID1L fluid restrictio nf/u outpatient for lab monitoring Gastroesop hageal reflux disease 413798568 K21.9 2146264353 continue omeprazole 20mg qd Anxiety 87102332 F41.9 63492 continue lorazepam 0.5mg qhs PRN Drug-induc ed constipation 02509273 K59.03 8840 continue senna 17.2mg qd and colace 100mg BIDRecent large BM Recurrent falls 31126421 2 R29.6 85879 04/02 lowering herself to the floor while trying to standno apparent injuries but some buttock pain relieved with pain medication sContinue fall precaution s.Monitor for safety. Dysuria 02799095 R30.0 36729 with suprapubic discomfort today 04/03Would recommend facility obtain UA with reflex Productive cough 0242056 5 R05.8 026193 with scattered rhonchino dyspnea or hypoxiacon senior manufacturing supervisor CXR if cough persists Health Concerns Section Related Observation LastModified by Organization Detai ls LastModified Time None Recorded Concern Status LastModified by Organization Details LastModified Time None Recorded Advance Directives Directive Y: Payers Insurance Date Sequence Insurance Name Policy Number Policy Hernandez Covered Member ID Hernandez Member ID Guarantor Name 04/06/2025 2 [facility] (MEDICARE SUPPLEMENT) Yesenia Fisher [id number] Yesenia Fisher 03/31/2025 1 [place] [employer] Yesenia Fisher [id number] Yesenia Fisher Notes Date Note Type Note Provider Name and Address Organization Details Recorded Time 03/30/20 25 text/htm l Patient is an 84 yo female who presents for initial intake visit PM afib on eliquis, HLD, peripheral neuropathy, HTN and MM with multiple thoracic and lumbar metastatic lesions with multilevel lumbar compression Presented to [facility] due to difficulty ambulating, [...] started on salt tablets and sodium restriction. [place] to be due to poor PO intake/chronic [...] with recs for rehab and discharged to [facility] on 03/28/25 for STR/PT/OT RITA 65MOLST FULL CODE Cayla_Tra Sorensen [address] [facility], [address], [place], [address], [facility] 03/30/2025 11:36:18 04/02/20 25 text/htm l Patient [...] therapy eval and treat Walt Cruz MD [address] [place] [address], [address], [place], [address], [place] [employer] 04/02/2025 12:35:31 04/03/20 25 text/htm l Patient is an 84 yo female who presents for discharge summary PMH afib on eliquis, HLD, peripheral neuropathy, HTN and MM with multiple thoracic and lumbar metastatic lesions with multilevel lumbar compression Presented to [facility] due to difficulty ambulating, [...] started on salt tablets and sodium restriction. [place] to be due to poor PO intake/chronic [...] with recs for rehab and discharged to [facility] on 03/28/25 for STR/PT/OT. She actively participated in therapy. Ambulating 25ft with 2WW. She was noted with an acute productive cough and evaluated by NEW BUSINESS CLERK. No swallowing dysfunction on exam and recs [...] medically stable and okay to discharge to [facility] with meds and services A_Tra Sorensen [address] [place] [address], [address], [place], [address], [facility] 04/03/2025 09:51:51 OBGyn Episode No OBEpisode recorded.
--- OUTSIDE RECORDS SUMMARY | 2025-08-26 22:59 | XMS_ITS | Encounter Summary ---
Author Organization [facility] Address [address] [place] [address] Care Team Providers Care Fitter Tacker Name Role Phone Mario Berrios MD Primary Care Provider [phone] Encounter Details Date Type Department Care Team (Late st Contact Info) Description 08/18/2025 Lab Requisition [facility] - Main Lab [address] [facility] [address] [place] [address] Roverto Jurado MD [address] [place] [address] Unspecified atrial fibrillation (CMS/HCC V24, CMS/HCC V28); [...] V28) Type 2 diabetes mellitus without complications ([facility] V24, [facility] V28) documented in this encounter Results * (ABNORMAL) Hemoglobin A1c (08/18/2025 5:47 AM EST) Hemoglobin A1C 7.0(H) <6.5 % LAB CHEMISTRY METHOD 08/18/2025 2:27 PM EST [facility] Mean Bld Glu Estim. 154 mg/dL LAB CHEMISTRY METHOD 08/18/2025 2:27 PM [facility] Blood Venous blood specimen / Unknown Venipuncture / Unknown 08/18/2025 5:47 AM EST 08/18/2025 10:57 AM EST us Roverto Jurado MD LAB BLOOD ORDERABLES Final Result [facility] [address] [place] [address], * (ABNORMAL) Comprehensive metabolic panel (08/18/2025 5:47 AM EST) Pathologist [facility] Sodium 134 133 - 145 mmol/L 08/18/2025 12:31 PM [facility] Potassium 3.0(L) 3.5 - 5.5 mmol/L 08/18/2025 12:31 PM [facility] Chloride 95(L) 96 - 110 mmol/L 08/18/2025 12:31 PM [facility] CO2 30 21 - 32 mmol/L 08/18/2025 12:31 PM [facility] Anion Gap 9 3 - 11 08/18/2025 12:31 PM [facility] Glucose 87 70 - 100 mg/dL 08/18/2025 12:31 PM [facility] BUN 6 5 - 25 mg/dL 08/18/2025 12:31 PM [facility] Creatinine 0.37(L) 0.50 - 1.10 mg/dL 08/18/2025 12:31 PM [facility] eGFR 99 >=60 mL/min/1. 73m2 08/18/2025 12:31 PM [facility] Comment:Calculation based on the Chronic Kidney Disease Epidemiology Collaboration (CKD-EPI) equation refit without adjustment for race. BUN/Creatinine Ratio 16.2 08/18/2025 12:31 PM [facility] Calcium 7.0(L) 8.5 - 10.5 mg/dL 08/18/2025 12:31 PM [facility] AST (SGOT) 18 10 - 42 unit/L 08/18/2025 12:31 PM [facility] ALT (SGPT) 26 10 - 60 unit/L 08/18/2025 12:31 PM [facility] Alkaline Phosphatase 159(H) 42 - 121 unit/L 08/18/2025 12:31 PM [facility] Total Protein 4.9(L) 6.0 - 8.0 g/dL 08/18/2025 12:31 PM [facility] Albumin 2.8(L) 3.2 - 5.0 g/dL 08/18/2025 12:31 PM [facility] Total Bilirubin 0.4 0.0 - 1.4 mg/dL 08/18/2025 12:31 PM [facility] Blood Venous blood specimen / Unknown Venipuncture / Unknown 08/18/2025 5:47 AM EST 08/18/2025 10:57 AM EST us Roverto Jurado MD LAB BLOOD ORDERABLES Final Result [facility] [address] [place] [address], [place] [phone] * (ABNORMAL) Complete blood count (08/18/2025 5:47 AM EST) [facility] WBC 6.9 4.8 - 10.8 K/mcL LAB HEMETOLOGY METHOD 08/18/2025 12:04 PM [facility] RBC 3.50(L) 3.80 - 4.80 M/mcL LAB HEMETOLOGY METHOD 08/18/2025 12:04 PM [facility] Hemoglobin 10.6(L) 11.5 - 16.0 g/dL LAB HEMETOLOGY METHOD 08/18/2025 12:04 PM [facility] Hematocrit 31.6(L) 35.0 - 47.0 % LAB HEMETOLOGY METHOD 08/18/2025 12:04 PM [facility] MCV 90.0 79.0 - 98.0 FL LAB HEMETOLOGY METHOD 08/18/2025 12:04 PM [facility] MCH 30.2 27.0 - 32.0 pcg LAB HEMETOLOGY METHOD 08/18/2025 12:04 PM [facility] MCHC 33.5 32.0 - 37.0 g/dL LAB HEMETOLOGY METHOD 08/18/2025 12:04 PM [facility] RDW 14.2 11.0 - 15.0 % LAB HEMETOLOGY METHOD 08/18/2025 12:04 PM [facility] Platelets 327 130 - 400 K/mcL LAB HEMETOLOGY METHOD 08/18/2025 12:04 PM [facility] MPV 10.1 7.0 - 11.0 FL LAB HEMETOLOGY METHOD 08/18/2025 12:04 PM [facility] NRBC 0.0 <1.0 % LAB HEMETOLOGY METHOD 08/18/2025 12:04 PM [facility] NRBC Absolute 0.00 <0.10 K/mcL LAB HEMETOLOGY METHOD 08/18/2025 12:04 PM EST [facility] Blood Venous blood specimen / Unknown Venipuncture / Unknown 08/18/2025 5:47 AM EST 08/18/2025 10:57 AM EST us Roverto Jurado MD LAB BLOOD ORDERABLES Final Result [facility] [address] [place] [address], documented in this encounter Visit Diagnoses Diagnosis Unspecified atrial fibrillation (CMS/HCC V24, CMS/[facility] V28) Type 2 diabetes mellitus without complications (CMS/[facility] V24, [facility] V28) documented in this encounter Care Teams Fitter Tacker Relationship Specialty Start Date End Date Mario Berrios MD [address] [place] [address] PCP - General Internal Medicine 04/04/25 documented as of this encounter
--- OUTSIDE RECORDS SUMMARY | 2025-08-26 22:59 | XMS_ITS | Encounter Summary ---
Author Organization [employer] Address [address] [place] [address] Care Team Providers Care Skin Toggler Name Role Phone Mario Berrios MD Primary Care Provider [phone] Encounter Details Date Type Department Care Team (Late st Contact Info) Description 08/22/2025 Lab Requisition [facility] - Main Lab [address] [place] [address] Roverto Jurado MD [address] [place] [address] Multiple myeloma not having achieved remission (CMS/HCC [...] Digoxin level (08/24/2025 8:31 AM EST) Pathologist [facility] Digoxin Lvl 0.8 0.5 - 2.0 ng/mL 08/24/2025 12:45 PM EST [facility] Blood Venous blood specimen / Unknown Venipuncture / Unknown 08/24/2025 8:31 AM EST 08/24/2025 11:08 AM EST Roverto Jurado MD LAB BLOOD ORDERABLES Final Result [facility] [address] [place] [address], * (ABNORMAL) Basic metabolic panel (08/24/2025 8:31 AM EST) Pathologist [facility] Sodium 135 133 - 145 mmol/L 08/24/2025 1:44 PM EST [facility] Potassium 3.2(L) 3.5 - 5.5 mmol/L 08/24/2025 1:44 PM [facility] Chloride 94(L) 96 - 110 mmol/L 08/24/2025 1:44 PM [facility] CO2 33(H) 21 - 32 mmol/L 08/24/2025 1:44 PM [facility] Anion Gap 8 3 - 11 08/24/2025 1:44 PM [facility] Glucose 85 70 - 100 mg/dL 08/24/2025 1:44 PM [facility] BUN <5(L) 5 - 25 mg/dL 08/24/2025 1:44 PM [facility] Creatinine 0.47(L) 0.50 - 1.10 mg/dL 08/24/2025 1:44 PM [facility] eGFR 93 >=60 mL/min/1. 73m2 08/24/2025 1:44 PM [facility] Comment:Calculation based on the Chronic Kidney Disease Epidemiology Collaboration (CKD-EPI) equation refit without adjustment for race. Calcium 7.7(L) 8.5 - 10.5 mg/dL 08/24/2025 1:44 PM [facility] Blood Venous blood specimen / Unknown Venipuncture / Unknown 08/24/2025 8:31 AM EST 08/24/2025 11:08 AM EST us Roverto Jurado MD LAB BLOOD ORDERABLES Final Result [facility] [address] [place] [address], * Complete blood count (08/24/2025 8:31 AM EST) Pathologist [facility] WBC 5.1 4.8 - 10.8 K/mcL LAB HEMETOLOGY METHOD 08/24/2025 12:40 PM [facility] RBC 3.80 3.80 - 4.80 M/mcL LAB HEMETOLOGY METHOD 08/24/2025 12:40 PM [facility] Hemoglobin 11.5 11.5 - 16.0 g/dL LAB HEMETOLOGY METHOD 08/24/2025 12:40 PM [facility] Hematocrit 35.2 35.0 - 47.0 % LAB HEMETOLOGY METHOD 08/24/2025 12:40 PM [facility] MCV 91.9 79.0 - 98.0 FL LAB HEMETOLOGY METHOD 08/24/2025 12:40 PM [facility] MCH 30.0 27.0 - 32.0 pcg LAB HEMETOLOGY METHOD 08/24/2025 12:40 PM [facility] MCHC 32.7 32.0 - 37.0 g/dL LAB HEMETOLOGY METHOD 08/24/2025 12:40 PM [facility] RDW 14.3 11.0 - 15.0 % LAB HEMETOLOGY METHOD 08/24/2025 12:40 PM [facility] Platelets 363 130 - 400 K/mcL LAB HEMETOLOGY METHOD 08/24/2025 12:40 PM [facility] MPV 10.0 7.0 - 11.0 FL LAB HEMETOLOGY METHOD 08/24/2025 12:40 PM [facility] NRBC 0.0 <1.0 % LAB HEMETOLOGY METHOD 08/24/2025 12:40 PM [facility] NRBC Absolute 0.00 <0.10 K/mcL LAB HEMETOLOGY METHOD 08/24/2025 12:40 PM [facility] Blood Venous blood specimen / Unknown Venipuncture / Unknown 08/24/2025 8:31 AM EST 08/24/2025 11:08 AM EST us Roverto Jurado MD LAB BLOOD ORDERABLES Final Result [facility] LAB [address] [place] [address], documented in this encounter Visit Diagnoses Diagnosis Multiple myeloma not having achieved remission ([facility] V24, [facility] V28) Type 2 diabetes mellitus without complications ([facility] V24, [facility] V28) Hyperlipidemia, unspecified Unspecified atrial fibrillation ([facility] V24, [facility] V28) Secondary malignant neoplasm of bone ([facility] V24, [facility] V28) Paroxysmal atrial fibrillation ([facility] V24, [facility] V28) Atrial fibrillation Heart failure, unspecified ([facility] V24, [facility] V28) Heart failure, unspecified documented in this encounter Care Teams Skin Toggler Relationship Specialty Start Date End Date Mario Berrios MD [address] [place] [address] PCP - General Internal Medicine 04/04/25 documented as of this encounter
--- OUTSIDE RECORDS SUMMARY | 2025-08-26 22:59 | XMS_ITS | Clinical Summary ---
Author Organization [facility] Address [address] [place] [address] Phone Care Team Providers Care Welder Shielded Metal Arc Name Role Phone Pcp, Unknown Primary Care [...] EDT) SODIUM 131(L) 133 - 146 mmol/L [facility] POTASSIUM 4.6 3.3 - 5.1 mmol/L [facility] CHLORIDE 92(L) 96 - 108 mmol/L [facility] CO2 30 21 - 35 mmol/L [facility] BUN 30(H) 6 - 19 mg/dL [facility] CREATININE 0.50 0.5 - 1.5 mg/dL [facility] GLUCOSE 123(H) 70 - 99 mg/dL [facility] ALBUMIN 3.3(L) 3.9 - 4.8 g/dL [facility] TOTAL PROTEIN 5.4(L) 6.5 - 8.0 g/dL [facility] CALCIUM 8.5 8.4 - 10.3 mg/dL [facility] ALKALINE PHOSPHATASE 53 39 - 117 U/L [facility] TOTAL BILIRUBIN 1.8(H) 0.0 - 1.2 mg/dL [facility] AST 14 0 - 37 U/L [facility] ALT 32 0 - 40 U/L [facility] GLOBULIN 2.1 1 - 4.8 g/dL [facility] EGFR 92 >59 mL/min/1.7 3m2 [facility] Comment:Estimated glomerular filtration rate calculated using the CKD-EPI refit equation. ANION GAP 14 10 - 20 mmol/L [facility] 03/30/2025 5:51 AM EDT 03/30/2025 10:16 AM EDT us Walt Cruz MD LAB BLOOD BKR ORDERABLES Final R esult [facility] [address] [place] [address] from Last 3 Months or Most Recently Relevant to Health Maintenance Insurance MEDICARE PART A & B [facility] MEDICARE ENHANCE SUPP[facility]MENT [facility] Address: [facility] [id number] [place] [id number] MEDICARE PART A & B [facility] MEDICARE ENHANCE SUPPLEMENT MEDICARE PART A & B [facility] MEDICARE ENHANCE SUPP[facility]MENT [facility] Address: [facility] [id number] [place] [id number] MEDICARE PART A & B [facility] MEDICARE ENHANCE SUPPLEMENT MEDICARE PART A & B [facility] MEDICARE ENHANCE SUPPLEMENT MEDICARE PART A & B [facility] MEDICARE ENHANCE SUPPLEMENT Care Teams Welder Shielded Metal Arc Relationship Specialty Start Date End Date Pcp, Unknown PCP - General 08/05/24 Additional Source Comments The information contained in this document represents components of the legal health record. It is not the complete legal health record.[facility]
--- OUTSIDE RECORDS SUMMARY | 2025-08-26 22:59 | XMS_ITS | Encounter Summary ---
Author Organization [facility] Address [address] [place] [address] Care Team Providers Care Dbas Name Role Phone Mario Berrios MD Primary Care Provider [phone] Encounter Details Date Type Department Care Team (Late st Contact Info) Description 08/22/[address] [facility] - Main Lab [address] [facility] [place] [address] Roverto Jurado MD [address] [place] [address] Hypokalemia Social History Tobacco Use Types Packs/Day [...] 9 3 - 11 08/22/2025 11:53 AM [facility] Glucose 93 70 - 100 mg/dL 08/22/2025 11:53 AM [facility] BUN <5(L) 5 - 25 mg/dL 08/22/2025 11:53 AM [facility] Creatinine 0.43(L) 0.50 - 1.10 mg/dL 08/22/2025 11:53 AM [facility] eGFR 95 >=60 mL/min/1. 73m2 08/22/2025 11:53 AM [facility] Comment:Calculation based on the Chronic Kidney Disease Epidemiology Collaboration (CKD-EPI) equation refit without adjustment for race. Calcium 8.0(L) 8.5 - 10.5 mg/dL 08/22/2025 11:53 AM [facility] AST (SGOT) 20 10 - 42 unit/L 08/22/2025 11:53 AM [facility] ALT (SGPT) 18 10 - 60 unit/L 08/22/2025 11:53 AM [facility] Alkaline Phosphatase 115 42 - 121 unit/L 08/22/2025 11:53 AM [facility] Total Protein 5.4(L) 6.0 - 8.0 g/dL 08/22/2025 11:53 AM [facility] Albumin 3.2 3.2 - 5.0 g/dL 08/22/2025 11:53 AM [facility] Total Bilirubin 0.6 0.0 - 1.4 mg/dL 08/22/2025 11:53 AM [facility] Blood Venous blood specimen / Unknown Venipuncture / Unknown 08/22/2025 6:42 AM EST 08/22/2025 9:46 AM EST us Roverto Jurado MD LAB BLOOD ORDERABLES Final Result [facility] LAB [address] [place] [address], documented in this encounter Visit Diagnoses Diagnosis Hypokalemia Hypopotassemia documented in this encounter Care Teams Dbas Relationship Specialty Start Date End Date Mario Berrios MD [address] [place] [address] PCP - General Internal Medicine 04/04/25 documented as of this encounter
--- OUTSIDE RECORDS SUMMARY | 2025-08-26 22:59 | XMS_ITS | Encounter Summary ---
Author Organization [facility] Address [address] [place] [address] Care Team Providers Care Ruling Machine Operator Name Role Phone Mario Berrios MD Primary Care Provider [phone] Encounter Details Date Type Department Care Team (Late st Contact Info) Description 08/20/2025 Lab Requisition [facility] - Main Lab [address] [facility] [place] [address] Roverto Jurado MD [address] [place] [address] Hypokalemia; Essential (primary) hypertension Social History Tobacco [...] LAB HEMETOLOGY METHOD 08/21/2025 9:59 AM EST [facility] RBC 3.60(L) 3.80 - 4.80 M/mcL LAB HEMETOLOGY METHOD 08/21/2025 9:59 AM EST [facility] Hemoglobin 10.9(L) 11.5 - 16.0 g/dL LAB HEMETOLOGY METHOD 08/21/2025 9:59 AM EST [facility] Hematocrit 32.7(L) 35.0 - 47.0 % LAB HEMETOLOGY METHOD 08/21/2025 9:59 AM [facility] MCV 90.3 79.0 - 98.0 FL LAB HEMETOLOGY METHOD 08/21/2025 9:59 AM [facility] MCH 30.1 27.0 - 32.0 pcg LAB HEMETOLOGY METHOD 08/21/2025 9:59 AM EST [facility] MCHC 33.3 32.0 - 37.0 g/dL LAB HEMETOLOGY METHOD 08/21/2025 9:59 AM [facility] RDW 13.9 11.0 - 15.0 % LAB HEMETOLOGY METHOD 08/21/2025 9:59 AM [facility] Platelets 341 130 - 400 K/mcL LAB HEMETOLOGY METHOD 08/21/2025 9:59 AM EST [facility] MPV 10.1 7.0 - 11.0 FL LAB HEMETOLOGY METHOD 08/21/2025 9:59 AM [facility] NRBC 0.0 <1.0 % LAB HEMETOLOGY METHOD 08/21/2025 9:59 AM [facility] NRBC Absolute 0.00 <0.10 K/mcL LAB HEMETOLOGY METHOD 08/21/2025 9:59 AM [facility] Blood Venous blood specimen / Unknown Venipuncture / Unknown 08/21/2025 4:56 AM EST 08/21/2025 8:56 AM EST us Roverto Jurado MD LAB BLOOD ORDERABLES Final Result [facility] [address] [place] [address], documented in this encounter Visit Diagnoses Diagnosis Hypokalemia Hypopotassemia Essential (primary) hypertension Unspecified essential hypertension documented in this encounter Care Teams Ruling Machine Operator Relationship Specialty Start Date End Date Mario Berrios MD [address] [place] [address] PCP - General Internal Medicine 04/04/25 documented as of this encounter
--- OUTSIDE RECORDS SUMMARY | 2025-08-26 23:00 | XMS_ITS | Encounter Summary ---
Author Organization [facility] Address [address] [place] [address] Care Team Providers Care Board Writer Name Role Phone Mario Berrios MD Primary Care Provider [phone] Encounter Details Date Type Department Care Team (Late st Contact Info) Description 05/09/2025 Lab Requisition [facility] - Main Lab [address] [facility] [place] [address] Mario Berrios MD [address] [place] [address] Essential (primary) hypertension Social History [...] hypertension documented in this encounter Care Teams Board Writer Relationship Specialty Start Date End Date Mario Berrios MD [address] [place] [address] PCP - General Internal Medicine 04/04/25 documented as of this encounter
--- OUTSIDE RECORDS SUMMARY | 2025-08-26 23:00 | XMS_ITS | Encounter Summary ---
Author Organization [facility] Address [address] [place] [address] Care Team Providers Care Music Internship Name Role Phone Mario Berrios MD Primary Care Provider [phone] Encounter Details Date Type Department Care Team (Late st Contact Info) Description 04/06/2025 Lab Requisition [facility] - Main Lab [address] [facility] [place] [address] Mario Berrios MD [address] [place] [phone] Essential (primary) hypertension Social History Tobacco Use [...] LAB CHEMISTRY METHOD 04/06/2025 1:16 PM T [facility] Potassium 5.8(H) 3.5 - 5.5 mmol/L LAB CHEMISTRY METHOD 04/06/2025 1:16 PM EDT [facility] Comment:Hemolysis present Chloride 96 96 - 110 mmol/L LAB CHEMISTRY METHOD 04/06/2025 1:16 PM [facility] CO2 24 21 - 32 mmol/L LAB CHEMISTRY METHOD 04/06/2025 1:16 PM [facility] Anion Gap 10 3 - 11 LAB CHEMISTRY METHOD 04/06/2025 1:16 PM [facility] Glucose 97 70 - 100 mg/dL LAB CHEMISTRY METHOD 04/06/2025 1:16 PM [facility] BUN 20 5 - 25 mg/dL LAB CHEMISTRY METHOD 04/06/2025 1:16 PM [facility] Creatinine 0.65 0.50 - 1.10 mg/dL LAB CHEMISTRY METHOD 04/06/2025 1:16 PM [facility] eGFR 86 >=60 mL/min/1. 73m2 LAB CHEMISTRY METHOD 04/06/2025 1:16 PM [facility] Comment:Calculation based on the Chronic Kidney Disease Epidemiology Collaboration (CKD-EPI) equation refit without adjustment for race. BUN/Creatinine Ratio 30.8 LAB CHEMISTRY METHOD 04/06/2025 1:16 PM [facility] Calcium 8.6 8.5 - 10.5 mg/dL LAB CHEMISTRY METHOD 04/06/2025 1:16 PM [facility] AST (SGOT) 28 10 - 42 unit/L LAB CHEMISTRY METHOD 04/06/2025 1:16 PM [facility] Comment:Hemolysis present ALT (SGPT) 34 10 - 60 unit/L LAB CHEMISTRY METHOD 04/06/2025 1:16 PM [facility] Alkaline Phosphatase 78 42 - 121 unit/L LAB CHEMISTRY METHOD 04/06/2025 1:16 PM [facility] Total Protein 5.7(L) 6.0 - 8.0 g/dL LAB CHEMISTRY METHOD 04/06/2025 1:16 PM [facility] Albumin 3.0(L) 3.2 - 5.0 g/dL LAB CHEMISTRY METHOD 04/06/2025 1:16 PM EDT [facility] Total Bilirubin 0.8 0.0 - 1.4 mg/dL LAB CHEMISTRY METHOD 04/06/2025 1:16 PM EDT [facility] Blood Venous blood specimen / Unknown Venipuncture / Unknown 04/06/2025 5:18 AM EDT 04/06/2025 10:40 AM EDT us Mario Berrios MD LAB BLOOD ORDERABLES Final Resu lt [facility] [address] [place] [address], [place] [phone] * (ABNORMAL) Complete blood count (04/06/2025 5:18 AM EDT) WBC 10.8 4.8 - 10.8 K/mcL LAB HEMETOLOGY METHOD 04/06/2025 11:40 AM [facility] RBC 4.00 3.80 - 4.80 M/mcL LAB HEMETOLOGY METHOD 04/06/2025 11:40 AM [facility] Hemoglobin 12.4 11.5 - 16.0 g/dL LAB HEMETOLOGY METHOD 04/06/2025 11:40 AM [facility] Hematocrit 38.3 35.0 - 47.0 % LAB HEMETOLOGY METHOD 04/06/2025 11:40 AM T [facility] MCV 95.8 79.0 - 98.0 FL LAB HEMETOLOGY METHOD 04/06/2025 11:40 AM [facility] MCH 31.0 27.0 - 32.0 pcg LAB HEMETOLOGY METHOD 04/06/2025 11:40 AM [facility] MCHC 32.4 32.0 - 37.0 g/dL LAB HEMETOLOGY METHOD 04/06/2025 11:40 AM EDT [facility] RDW 15.3(H) 11.0 - 15.0 % LAB HEMETOLOGY METHOD 04/06/2025 11:40 AM EDT [facility] Platelets 166 130 - 400 K/mcL LAB HEMETOLOGY METHOD 04/06/2025 11:40 AM EDT [facility] MPV 12.4(H) 7.0 - 11.0 FL LAB HEMETOLOGY METHOD 04/06/2025 11:40 AM EDT [facility] NRBC 0.0 <1.0 % LAB HEMETOLOGY METHOD 04/06/2025 11:40 AM EDT [facility] NRBC Absolute 0.00 <0.10 K/mcL LAB HEMETOLOGY METHOD 04/06/2025 11:40 AM EDT [facility] Blood Venous blood specimen / Unknown Venipuncture / Unknown 04/06/2025 5:18 AM EDT 04/06/2025 10:40 AM EDT Mario Berrios MD LAB BLOOD ORDERABLES Final Resu lt [facility] [address] [place] [address], documented in this encounter Visit Diagnoses Diagnosis Essential (primary) hypertension Unspecified essential hypertension documented in this encounter Care Teams Music Internship Relationship Specialty Start Date End Date Mario Berrios MD [address] [place] [address] PCP - General Internal Medicine 04/04/25 documented as of this encounter
--- OUTSIDE RECORDS SUMMARY | 2025-08-26 23:00 | XMS_ITS | Encounter Summary ---
Author Organization Mari [facility] Address [address] [place] [address] Care Team Providers Care Technical Account Executive Name Role Phone Mario Berriso MD Primary Care Provider [phone] Encounter Details Date Type Department Care Team (Late st Contact Info) Description 04/29/2025 Lab Requisition [facility] - Main Lab [address] [facility] [place] [address] Mario Berrios MD [address] [place] [phone] Hypo-osmolality and hyponatremia Social History Tobacco [...] LAB CHEMISTRY METHOD 04/29/2025 3:38 PM EDT [facility] Potassium 4.3 3.5 - 5.5 mmol/L LAB CHEMISTRY METHOD 04/29/2025 3:38 PM EDT [facility] Chloride 93(L) 96 - 110 mmol/L LAB CHEMISTRY METHOD 04/29/2025 3:38 PM EDT [facility] CO2 31 21 - [...] LAB CHEMISTRY METHOD 04/29/2025 3:38 PM EDT [facility] Total Bilirubin 1.2 0.0 - 1.4 mg/dL LAB CHEMISTRY METHOD 04/29/2025 3:38 PM EDT [facility] Blood Venous blood specimen / Unknown Venipuncture / Unknown 04/29/2025 6:15 AM EDT 04/29/2025 11:49 AM EDT us Mario Berrios MD LAB BLOOD ORDERABLES Final Resu lt [facility] [address] [place] [address], documented in this encounter Visit Diagnoses Diagnosis Hypo-osmolality and hyponatremia documented in this encounter Care Teams Technical Account Executive Relationship Specialty Start Date End Date Mario Berrios MD [address] [place] [address] PCP - General Internal Medicine 04/04/25 documented as of this encounter
--- OUTSIDE RECORDS SUMMARY | 2025-08-26 23:00 | XMS_ITS | Clinical Summary ---
Author Organization [facility] Address [address] [place] [address] Phone Care Team Providers Care Deputy Jailer Name Role Phone Mario Berrios MD Primary Care Provider [phone] Encounters Date Type Department Care Team Description 08/22/2025 Lab Requisition [facility] Lab [address] [place] [phone] Roverto Jurado MD Multiple myeloma not having achieved remission ([facility], [facility]); Type 2 diabetes mellitus without complications ([facility], [facility]); Hyperlipidemia, unspecified; Unspecified atrial fibrillation ([facility], [facility]); Secondary malignant neoplasm of bone ([facility], [facility]); Paroxysmal atrial fibrillation ([facility], [facility]); Heart failure, unspecified ([facility], [facility]) 08/22/2025 Lab Requisition [facility] Lab [address] [place] [phone] Roverto Jurado MD Hypokalemia 08/20/2025 Lab Requisition [facility] Lab [address] [place] [phone] Roverto Jurado MD Hypokalemia; Essential (primary) hypertension 08/19/2025 Lab Requisition [facility] Lab [address] [place] [phone] Roverto Jurado MD Malignant (primary) neoplasm, unspecified ([facility], [facility]); Unspecified atrial fibrillation ([facility], [facility]); Type 2 diabetes mellitus without complications ([facility], [facility]) 08/18/2025 Lab Requisition [facility] - Main Lab [address] [place] [address] Roverto Jurado MD Unspecified atrial fibrillation ([facility], [facility]); Type 2 diabetes mellitus without complications ([facility], [facility]) from Last 3 Months Social History [...] is included. WBC 5.1 4.8 - 10.8 K/[facility] LAB HEMETOLOGY METHOD 08/24/2025 12:40 PM EST [facility] RBC 3.80 3.80 - 4.80 M/[facility] LAB HEMETOLOGY METHOD 08/24/2025 12:[address] [...] Jurado MD LAB BLOOD ORDERABLES Final Result [facility] [address] [place] [address], * Digoxin level (08/24/2025 8:31 AM EST) Digoxin Lvl 0.8 0.5 - 2.0 ng/mL 08/24/2025 12:[address] [facility] Blood Venous blood specimen / Unknown Venipuncture / Unknown 08/24/2025 8:31 AM EST 08/24/2025 11:08 AM EST Roverto Jurado MD LAB BLOOD ORDERABLES Final Result Performing Organization Address [facility] Co de Phone Number [facility] [address] [place] [address], * (ABNORMAL) Basic metabolic panel (08/24/2025 8:31 AM EST) [facility] Sodium 135 133 - 145 mmol/L 08/24/2025 1:[address] [facility] Potassium 3.2(L) 3.5 - 5.5 [...] Jurado MD LAB BLOOD ORDERABLES Final Result [facility] [address] [place] [address], * (ABNORMAL) Comprehensive metabolic panel (08/22/2025 6:42 AM EST) Only the most recent of2 resultswithin the time period is included. Sodium 137 133 - 145 mmol/L 08/22/2025 11:[address] [facility] Potassium 3.6 3.5 - 5.5 mmol/L 08/22/2025 11:[address] [facility] Chloride 97 96 - 110 mmol/L 08/22/2025 11:[address] [facility] CO2 31 21 - 32 mmol/L 08/22/2025 11:[address] [facility] Anion Gap 9 3 - 11 08/22/2025 11:[address] [facility] Glucose 93 70 - 100 mg/dL 08/22/2025 11:[address] [facility] BUN <5(L) 5 - 25 mg/dL 08/22/2025 11:[address] [facility] Creatinine 0.43(L) 0.50 - 1.10 mg/dL 08/22/2025 11:[address] [facility] eGFR 95 >=60 mL/min/1. 73m2 08/22/2025 11:[address] [facility] Comment:Calculation based on the Chronic Kidney Disease Epidemiology Collaboration (CKD-EPI) equation refit without adjustment for race. Calcium 8.0(L) 8.5 - 10.5 mg/dL 08/22/2025 11:[address] [facility] AST (SGOT) 20 10 - 42 unit/L 08/22/2025 11:[address] [facility] ALT (SGPT) 18 10 - 60 unit/L 08/22/2025 11:[address] [facility] Alkaline Phosphatase 115 42 - 121 unit/L 08/22/2025 11:[address] [facility] Total Protein 5.4(L) 6.0 - 8.0 g/dL 08/22/2025 11:[address] [facility] Albumin 3.2 3.2 - 5.0 g/dL 08/22/2025 11:[address] [facility] Total Bilirubin 0.6 0.0 - 1.4 mg/dL 08/22/2025 11:[address] [facility] Blood Venous blood specimen / Unknown Venipuncture / Unknown 08/22/2025 6:42 AM EST 08/22/2025 9:46 AM EST us Roverto Jurado MD LAB BLOOD ORDERABLES Final Result [facility] [address] [place] [address], * SST tube (08/19/2025 6:01 AM EST) Extra Tube Hold for add-ons. 08/19/2025 12:02 PM EST [facility] Comment:Auto resulted. Blood Venous blood specimen / Unknown Venipuncture / Unknown 08/19/2025 6:01 AM EST 08/19/2025 10:45 AM EST us Roverto Jurado MD LAB BLOOD ORDERABLES Final Result Performing Organization Address City/[facility]/ZIP Co de Phone Number [facility] [address] [place] [address], [place] [phone] * (ABNORMAL) Hemoglobin A1c (08/18/2025 5:47 AM EST) Hemoglobin A1C 7.0(H) <6.5 % LAB CHEMISTRY METHOD 08/18/2025 2:27 PM EST [facility] Mean Bld Glu Estim. 154 mg/dL LAB CHEMISTRY METHOD 08/18/2025 2:27 PM EST [facility] Blood Venous blood specimen / Unknown Venipuncture / Unknown 08/18/2025 5:47 AM EST 08/18/2025 10:57 AM EST Roverto Jurado MD LAB BLOOD ORDERABLES Final Result Performing Organization Address [facility] de Phone Number [facility] [address] [place] [address], [place] [phone] from Last 3 Months Insurance MEDICARE [facility] [employer] MED[employer]ARE Care Teams Deputy Jailer Relationship Specialty Start Date End Date Mario Berrios MD [address] [place] [address] PCP - General Internal Medicine 04/04/25
--- OUTSIDE RECORDS SUMMARY | 2025-08-26 23:00 | XMS_ITS | Encounter Summary ---
Author Organization [facility] Address [address] [place] [address] Care Team Providers Care Shearing Shed Hand Name Role Phone Mario Berrios MD Primary Care Provider [phone] Encounter Details Date Type Department Care Team (Late st Contact Info) Description 04/15/2025 Lab Requisition [facility] - Main Lab [address] [facility] [place] [address] Mario Berrios MD [address] [place] [phone] Essential (primary) hypertension Social History Tobacco Use [...] AM EDT) WBC 8.9 4.8 - 10.8 K/[facility] LAB HEMETOLOGY METHOD 04/16/2025 9:51 AM EDT [facility] RBC 4.30 3.80 - 4.80 M/[facility] LAB HEMETOLOGY METHOD 04/16/2025 9:51 AM EDT [facility] Hemoglobin 13.5 11.5 - 16.0 g/dL LAB HEMETOLOGY METHOD 04/16/2025 9:51 AM EDT [facility] Hematocrit 40.4 35.0 - 47.0 % LAB HEMETOLOGY METHOD 04/16/2025 9:51 AM EDT [facility] MCV 93.5 79.0 - 98.0 FL LAB HEMETOLOGY METHOD 04/16/2025 9:51 AM EDT [facility] MCH 31.3 27.0 - 32.0 pcg LAB HEMETOLOGY METHOD 04/16/2025 9:51 AM EDT [facility] MCHC 33.4 32.0 - 37.0 g/dL LAB HEMETOLOGY METHOD 04/16/2025 9:[facility] RDW 16.6(H) 11.0 - 15.0 % LAB HEMETOLOGY METHOD 04/16/2025 9:51 AM EDT [facility] Platelets 159 130 - 400 K/mcL LAB HEMETOLOGY METHOD 04/16/2025 9:51 AM EDT [facility] MPV 11.7(H) 7.0 - 11.0 FL LAB HEMETOLOGY METHOD 04/16/2025 9:51 AM EDT [facility] NRBC 0.0 <1.0 % LAB HEMETOLOGY METHOD 04/16/2025 9:51 AM EDT [facility] NRBC Absolute 0.00 <0.10 K/mcL LAB HEMETOLOGY METHOD 04/16/2025 9:51 AM EDT [facility] Blood Venous blood specimen / Unknown Venipuncture / Unknown 04/16/2025 6:36 AM EDT 04/16/2025 9:27 AM EDT us Mario Berrios MD LAB BLOOD ORDERABLES Final Resu lt [facility] [address] [place] [address], * (ABNORMAL) Basic metabolic panel (04/16/2025 6:36 AM EDT) Sodium 134 133 - 145 mmol/L LAB CHEMISTRY METHOD 04/16/2025 10:16 AM [facility] Potassium 3.8 3.5 - 5.5 mmol/L LAB CHEMISTRY METHOD 04/16/2025 10:16 AM T [facility] Chloride 98 96 - 110 mmol/L LAB CHEMISTRY METHOD 04/16/2025 10:16 AM [facility] CO2 26 21 - 32 mmol/L LAB CHEMISTRY METHOD 04/16/2025 10:16 AM [facility] Anion Gap 10 3 - 11 LAB CHEMISTRY METHOD 04/16/2025 10:16 AM [facility] Glucose 129(H) 70 - 100 mg/dL LAB CHEMISTRY METHOD 04/16/2025 10:16 AM [facility] BUN 15 5 - 25 mg/dL LAB CHEMISTRY METHOD 04/16/2025 10:16 AM [facility] Creatinine 0.65 0.50 - 1.10 mg/dL LAB CHEMISTRY METHOD 04/16/2025 10:16 AM [facility] eGFR 86 >=60 mL/min/1. 73m2 LAB CHEMISTRY METHOD 04/16/2025 10:16 AM [facility] Comment:Calculation based on the Chronic Kidney Disease Epidemiology Collaboration (CKD-EPI) equation refit without adjustment for race. BUN/Creatinine Ratio 23.1 LAB CHEMISTRY METHOD 04/16/2025 10:16 AM [facility] Calcium 8.5 8.5 - 10.5 mg/dL LAB CHEMISTRY METHOD 04/16/2025 10:16 AM [facility] Blood Venous blood specimen / Unknown Venipuncture / Unknown 04/16/2025 6:36 AM EDT 04/16/2025 9:26 AM EDT Mario Berrios MD LAB BLOOD ORDERABLES Final Resu lt [facility] [address] [place] [address], documented in this encounter Visit Diagnoses Diagnosis Essential (primary) hypertension Unspecified essential hypertension documented in this encounter Care Teams Shearing Shed Hand Relationship Specialty Start Date End Date Mario Berrios MD [address] [place] [address] PCP - General Internal Medicine 04/04/25 documented as of this encounter
--- OUTSIDE RECORDS SUMMARY | 2025-08-26 23:00 | XMS_ITS | Encounter Summary ---
Author Organization [facility] Address [address] [place] [address] Care Team Providers Care Remote Mortgage Underwriter Name Role Phone Mario Berrios MD Primary Care Provider [phone] Encounter Details Date Type Department Care Team (Late st Contact Info) Description 04/24/2025 Lab Requisition [facility] - Main Lab [address] [facility] [place] [address] Mario Berrios MD [address] [place] [phone] Essential (primary) hypertension Social History Tobacco Use [...] AM EDT) WBC 6.1 4.8 - 10.8 K/[facility] LAB HEMETOLOGY METHOD 04/27/2025 1:16 PM EDT [facility] RBC 4.20 3.80 - 4.80 M/[facility] LAB HEMETOLOGY METHOD 04/27/2025 1:16 PM EDT [facility] Hemoglobin 12.9 11.5 - 16.0 g/dL LAB HEMETOLOGY METHOD 04/27/2025 1:16 PM EDT [facility] Hematocrit 39.2 35.0 - 47.0 % LAB HEMETOLOGY METHOD 04/27/2025 1:16 PM EDT [facility] MCV 94.0 79.0 - 98.0 FL LAB HEMETOLOGY METHOD 04/27/2025 1:16 PM EDT [facility] MCH 30.9 27.0 - 32.0 pcg LAB HEMETOLOGY METHOD 04/27/2025 1:16 PM EDT [facility] MCHC 32.9 32.0 - 37.0 g/dL LAB HEMETOLOGY METHOD 04/27/2025 1:16 PM EDT [facility] RDW 16.2(H) 11.0 - 15.0 % LAB HEMETOLOGY METHOD 04/27/2025 1:16 PM EDT [facility] Platelets 173 130 - 400 K/mcL LAB HEMETOLOGY METHOD 04/27/2025 1:16 PM EDT [facility] MPV 10.3 7.0 - 11.0 FL LAB HEMETOLOGY METHOD 04/27/2025 1:16 PM EDT [facility] NRBC 0.0 <1.0 % LAB HEMETOLOGY METHOD 04/27/2025 1:16 PM EDT [facility] NRBC Absolute 0.00 <0.10 K/mcL LAB HEMETOLOGY METHOD 04/27/2025 1:16 PM EDT [facility] Blood Venous blood specimen / Unknown Venipuncture / Unknown 04/27/2025 6:26 AM EDT 04/27/2025 11:51 AM EDT us Mario Berrios MD LAB BLOOD ORDERABLES Final Resu lt [facility] [address] [place] [address], * (ABNORMAL) Comprehensive metabolic panel (04/27/2025 6:26 [...] LAB CHEMISTRY METHOD 04/27/2025 1:02 PM EDT [facility] ALT (SGPT) 34 10 - 60 unit/L LAB CHEMISTRY METHOD 04/27/2025 1:02 PM EDT [facility] Alkaline Phosphatase 139(H) 42 - 121 unit/L LAB CHEMISTRY METHOD 04/27/2025 1:02 PM EDT [facility] Total Protein 5.4(L) 6.0 - 8.0 g/dL LAB CHEMISTRY METHOD 04/27/2025 1:02 PM EDT [facility] Albumin 2.7(L) 3.2 - 5.0 g/dL LAB CHEMISTRY METHOD 04/27/2025 1:02 PM [facility] Total Bilirubin 1.2 0.0 - 1.4 mg/dL LAB CHEMISTRY METHOD 04/27/2025 1:02 PM EDT [facility] Blood Venous blood specimen / Unknown Venipuncture / Unknown 04/27/2025 6:26 AM EDT 04/27/2025 11:51 AM EDT us Mario Berrios MD LAB BLOOD ORDERABLES Final Resu lt [facility] [address] [place] [address], documented in this encounter Visit Diagnoses Diagnosis Essential (primary) hypertension Unspecified essential hypertension documented in this encounter Care Teams Remote Mortgage Underwriter Relationship Specialty Start Date End Date Mario Berrios MD [address] [place] [phone] PCP - General Internal Medicine 04/04/25 documented as of this encounter
--- OUTSIDE RECORDS SUMMARY | 2025-08-26 23:00 | XMS_ITS | Encounter Summary ---
Author Organization [facility] Address [address] [place] [address] Care Team Providers Care Mines Inspector Name Role Phone Mario Berrios MD Primary Care Provider [phone] Encounter Details Date Type Department Care Team (Late st Contact Info) Description 04/23/[address] [facility] - Main Lab [address] [facility] [place] [address] Mario Berrios MD [address] [place] [address] Diarrhea, unspecified Social History Tobacco [...] unspecified documented in this encounter Care Teams Mines Inspector Relationship Specialty Start Date End Date Mario Berrios MD [address] [place] [address] PCP - General Internal Medicine 04/04/25 documented as of this encounter
--- OUTSIDE RECORDS SUMMARY | 2025-08-26 23:00 | XMS_ITS | Encounter Summary ---
Author Organization [facility] Address [address] [place] [address] Care Team Providers Care Junior Systems Analyst Name Role Phone Mario Berrios MD Primary Care Provider [phone] Encounter Details Date Type Department Care Team (Late st Contact Info) Description 04/17/2025 Lab Requisition [facility] - Main Lab 299 [facility] [address] [place] [address] Mario Berrios MD [address] [place] [phone] Essential (primary) hypertension Social History Tobacco Use [...] AM EDT) WBC 6.2 4.8 - 10.8 K/[facility] LAB HEMETOLOGY METHOD 04/20/2025 11:57 AM EDT [facility] RBC 4.00 3.80 - 4.80 M/[facility] LAB HEMETOLOGY METHOD 04/20/2025 11:57 AM EDT [facility] Hemoglobin 12.5 11.5 - 16.0 g/dL LAB HEMETOLOGY METHOD 04/20/2025 11:57 AM EDT [facility] Hematocrit 37.7 35.0 - 47.0 % LAB HEMETOLOGY METHOD 04/20/2025 11:57 AM EDT [facility] MCV 94.3 79.0 - 98.0 FL LAB HEMETOLOGY METHOD 04/20/2025 11:57 AM EDT [facility] MCH 31.3 27.0 - 32.0 pcg LAB HEMETOLOGY METHOD 04/20/2025 11:57 AM EDT [facility] MCHC 33.2 32.0 - 37.0 g/dL LAB HEMETOLOGY METHOD 04/20[facility]2025 11:[facility] RDW 16.7(H) 11.0 - 15.0 % LAB HEMETOLOGY METHOD 04/20/2025 11:57 AM EDT [facility] Platelets 153 130 - 400 K/mcL LAB HEMETOLOGY METHOD 04/20/2025 11:57 AM EDT [facility] MPV 11.5(H) 7.0 - 11.0 FL LAB HEMETOLOGY METHOD 04/20/2025 11:57 [facility] NRBC 0.0 <1.0 % LAB HEMETOLOGY METHOD 04/20/2025 11:57 AM EDT [facility] NRBC Absolute 0.00 <0.10 K/mcL LAB HEMETOLOGY METHOD 04/20/2025 11:57 [facility] Blood Venous blood specimen / Unknown Venipuncture / Unknown 04/20/2025 5:25 AM EDT 04/20/2025 10:56 AM EDT us Mario Berrios MD LAB BLOOD ORDERABLES Final Resu lt [facility] [address] [place] [address], * (ABNORMAL) Comprehensive metabolic panel (04/20/2025 5:25 AM EDT) Sodium 134 133 - 145 mmol/L LAB CHEMISTRY METHOD 04/20/2025 1:[facility] Potassium 4.1 3.5 - 5.5 mmol/L LAB CHEMISTRY METHOD 04/20/2025 1:10 PM T [facility] Comment:Hemolysis present Chloride 96 96 - 110 mmol/L LAB CHEMISTRY METHOD 04/20/2025 1:10 PM [facility] CO2 30 21 - 32 mmol/L LAB CHEMISTRY METHOD 04/20/2025 1:10 PM [facility] Anion Gap 8 3 - 11 LAB CHEMISTRY METHOD 04/20/2025 1:10 PM [facility] Glucose 84 70 - 100 mg/dL LAB CHEMISTRY METHOD 04/20/2025 1:10 PM [facility] BUN 14 5 - 25 mg/dL LAB CHEMISTRY METHOD 04/20/2025 1:10 PM [facility] Creatinine 0.56 0.50 - 1.10 mg/dL LAB CHEMISTRY METHOD 04/20/2025 1:[facility] eGFR 90 >=60 mL/min/1. 73m2 LAB CHEMISTRY METHOD 04/20/2025 1:10 PM [facility] Comment:Calculation based on the Chronic Kidney Disease Epidemiology Collaboration (CKD-EPI) equation refit without adjustment for race. BUN/Creatinine Ratio 25.0 LAB CHEMISTRY METHOD 04/20/2025 1:10 PM [facility] Calcium 8.1(L) 8.5 - 10.5 mg/dL LAB CHEMISTRY METHOD 04/20/2025 1:10 PM [facility] AST (SGOT) 35 10 - 42 unit/L LAB CHEMISTRY METHOD 04/20/2025 1:10 PM EDT [facility] Comment:Hemolysis present ALT (SGPT) 69(H) 10 - 60 unit/L LAB CHEMISTRY METHOD 04/20/2025 1:10 PM EDT [facility] Alkaline Phosphatase 156(H) 42 - 121 unit/L LAB CHEMISTRY METHOD 04/20/2025 1:10 PM EDT [facility] Total Protein 5.3(L) 6.0 - 8.0 g/dL LAB CHEMISTRY METHOD 04/20/2025 1:10 PM EDT [facility] Albumin 2.7(L) 3.2 - 5.0 g/dL LAB CHEMISTRY METHOD 04/20/2025 1:10 PM EDT [facility] Total Bilirubin 2.1(H) 0.0 - 1.4 mg/dL LAB CHEMISTRY METHOD 04/20/2025 1:10 PM EDT [facility] Comment:Results verified by repeat testing Blood Venous blood specimen / Unknown Venipuncture / Unknown 04/20/2025 5:25 AM EDT 04/20/2025 12:06 PM EDT Mario Berrios MD LAB BLOOD ORDERABLES Final Resu lt [facility] [address] [place] [address], documented in this encounter Visit Diagnoses Diagnosis Essential (primary) hypertension Unspecified essential hypertension documented in this encounter Care Teams Junior Systems Analyst Relationship Specialty Start Date End Date Mario Berrios MD [address] [place] [phone] PCP - General Internal Medicine 04/04/25 documented as of this encounter
--- OUTSIDE RECORDS SUMMARY | 2025-08-26 23:00 | XMS_ITS | Encounter Summary ---
Author Organization Mari [facility] Address [address] [place] [address] Care Team Providers Care Bulk Sealer Operator Name Role Phone Mario Berrios MD Primary Care Provider [phone] Encounter Details Date Type Department Care Team (Late st Contact Info) Description 04/08/2025 Lab Requisition [facility] - Main Lab [address] [facility], [facility] [place] [address] Mario Berrios MD [address] [place] [address] [phone] Essential (primary) hypertension Social History Tobacco Use [...] AM EDT) WBC 10.1 4.8 - 10.8 K/[facility] LAB HEMETOLOGY METHOD 04/09/2025 11:39 AM EDT [facility] LAB RBC 3.90 3.80 - 4.80 M/[facility] LAB HEMETOLOGY METHOD 04/09/2025 11:39 AM EDT [facility] LAB Hemoglobin 11.9 11.5 - 16.0 g/dL LAB HEMETOLOGY METHOD 04/09/2025 11:39 AM [facility] LAB Hematocrit 37.5 35.0 - 47.0 % LAB HEMETOLOGY METHOD 04/09/2025 11:39 AM [facility] LAB MCV 95.4 79.0 - 98.0 FL LAB HEMETOLOGY METHOD 04/09/2025 11:39 AM [facility] LAB MCH 30.3 27.0 - 32.0 pcg LAB HEMETOLOGY METHOD 04/09/2025 11:39 AM [facility] LAB MCHC 31.7(L) 32.0 - 37.0 g/dL LAB HEMETOLOGY METHOD 04/09/2025 11:39 AM [facility] LAB RDW 15.8(H) 11.0 - 15.0 % LAB HEMETOLOGY METHOD 04/09/2025 11:39 AM [facility] LAB Platelets 127(L) 130 - 400 K/mcL LAB HEMETOLOGY METHOD 04/09/2025 11:39 AM [facility] LAB MPV 11.8(H) 7.0 - 11.0 FL LAB HEMETOLOGY METHOD 04/09/2025 11:39 AM [facility] LAB NRBC 0.0 <1.0 % LAB HEMETOLOGY METHOD 04/09/2025 11:39 AM [facility] LAB NRBC Absolute 0.00 <0.10 K/mcL LAB HEMETOLOGY METHOD 04/09/2025 11:39 AM [facility] LAB Blood Venous blood specimen / Unknown Venipuncture / Unknown 04/09/2025 5:47 AM EDT 04/09/2025 11:23 AM EDT Mario Berrios MD LAB BLOOD ORDERABLES Final Resu lt [facility] LAB [address] [place] [address], [place] [phone] * (ABNORMAL) Basic metabolic panel (04/09/2025 5:47 AM EDT) Sodium 133 133 - 145 mmol/L LAB CHEMISTRY METHOD 04/09/2025 12:06 PM [facility] LAB Potassium 4.9 3.5 - 5.5 mmol/L LAB CHEMISTRY METHOD 04/09/2025 12:06 PM [facility] LAB Comment:Hemolysis present Chloride 101 96 - 110 mmol/L LAB CHEMISTRY METHOD 04/09/2025 12:06 PM [facility] LAB CO2 26 21 - 32 mmol/L LAB CHEMISTRY METHOD 04/09/2025 12:06 PM [facility] LAB Anion Gap 6 3 - 11 LAB CHEMISTRY METHOD 04/09/2025 12:06 PM [facility] LAB Glucose 97 70 - 100 mg/dL LAB CHEMISTRY METHOD 04/09/2025 12:06 PM [facility] LAB BUN 17 5 - 25 mg/dL LAB CHEMISTRY METHOD 04/09/2025 12:06 PM [facility] LAB Creatinine 0.61 0.50 - 1.10 mg/dL LAB CHEMISTRY METHOD 04/09/2025 12:06 PM [facility] LAB eGFR 88 >=60 mL/min/1. 73m2 LAB CHEMISTRY METHOD 04/09/2025 12:06 PM [facility] LAB Comment:Calculation based on the Chronic Kidney Disease Epidemiology Collaboration (CKD-EPI) equation refit without adjustment for race. BUN/Creatinine Ratio 27.9 LAB CHEMISTRY METHOD 04/09/2025 12:06 PM [facility] LAB Calcium 8.0(L) 8.5 - 10.5 mg/dL LAB CHEMISTRY METHOD 04/09/2025 12:06 PM EDT [facility] LAB Blood Venous blood specimen / Unknown Venipuncture / Unknown 04/09/2025 5:47 AM EDT 04/09/2025 11:23 AM EDT Mario Berrios MD LAB BLOOD ORDERABLES Final Resu lt [facility] LAB [address] [place] [address], documented in this encounter Visit Diagnoses Diagnosis Essential (primary) hypertension Unspecified essential hypertension documented in this encounter Care Teams Bulk Sealer Operator Relationship Specialty Start Date End Date Mario Berrios MD [address] [place] [phone] PCP - General Internal Medicine 04/04/25 documented as of this encounter
--- OUTSIDE RECORDS SUMMARY | 2025-08-26 23:00 | XMS_ITS | Encounter Summary ---
Author Organization Mari [facility] Address [address] [place] [address] Care Team Providers Care Claim Taker Name Role Phone Mario Berrios MD Primary Care Provider [phone] Encounter Details Date Type Department Care Team (Late st Contact Info) Description 04/12/2025 Lab Requisition [facility] - Main Lab [address] [facility] [address] Mario Berrios MD [address] [place] [address] [phone] Essential (primary) hypertension Social History Tobacco Use [...] AM EDT) WBC 8.1 4.8 - 10.8 K/[facility] LAB HEMETOLOGY METHOD 04/13/2025 11:31 AM EDT [facility] LAB RBC 4.00 3.80 - 4.80 M/[facility] LAB HEMETOLOGY METHOD 04/13/2025 11:31 AM EDT [facility] LAB Hemoglobin 12.5 11.5 - 16.0 g/dL LAB HEMETOLOGY METHOD 04/13/2025 11:31 AM [facility] LAB Hematocrit 37.3 35.0 - 47.0 % LAB HEMETOLOGY METHOD 04/13/2025 11:31 AM [facility] LAB MCV 92.8 79.0 - 98.0 FL LAB HEMETOLOGY METHOD [facility] MCH 31.1 27.0 - 32.0 pcg LAB HEMETOLOGY METHOD 04/13/2025 11:31 AM [facility] LAB MCHC 33.5 32.0 - 37.0 g/dL LAB HEMETOLOGY METHOD 04/13/2025 11:31 AM [facility] LAB RDW 16.3(H) 11.0 - 15.0 % LAB HEMETOLOGY METHOD 04/13/2025 11:31 AM [facility] LAB Platelets 122(L) 130 - 400 K/mcL LAB HEMETOLOGY METHOD 04/13/2025 11:31 AM [facility] LAB MPV 12.1(H) 7.0 - 11.0 FL LAB HEMETOLOGY METHOD 04/13/2025 11:31 AM [facility] LAB NRBC 0.0 <1.0 % LAB HEMETOLOGY METHOD 04/13/2025 11:31 AM [facility] LAB NRBC Absolute 0.00 <0.10 K/mcL LAB HEMETOLOGY METHOD 04/13/2025 11:31 AM [facility] LAB Blood Venous blood specimen / Unknown Venipuncture / Unknown 04/13/2025 8:37 AM EDT 04/13/2025 10:16 AM EDT us Mario Berrios MD LAB BLOOD ORDERABLES Final Resu lt [facility] LAB [address] [place] [address], [place] [phone] * (ABNORMAL) Comprehensive metabolic panel (04/13/2025 8:37 AM EDT) Sodium 133 133 - 145 mmol/L LAB CHEMISTRY METHOD 04/13/2025 11:42 AM [facility] LAB Potassium 3.6 3.5 - 5.5 mmol/L LAB CHEMISTRY METHOD 04/13/2025 11:42 AM [facility] LAB Chloride 98 96 - 110 mmol/L LAB CHEMISTRY METHOD 04/13/2025 11:42 AM [facility] LAB CO2 26 21 - 32 mmol/L LAB CHEMISTRY METHOD 04/13/2025 11:42 AM [facility] LAB Anion Gap 9 3 - 11 LAB CHEMISTRY METHOD 04/13/2025 11:42 AM [facility] LAB Glucose 122(H) 70 - 100 mg/dL LAB CHEMISTRY METHOD 04/13/2025 11:42 AM [facility] LAB BUN 16 5 - 25 mg/dL LAB CHEMISTRY METHOD 04/13/2025 11:42 AM [facility] LAB Creatinine 0.59 0.50 - 1.10 mg/dL LAB CHEMISTRY METHOD 04/13/2025 11:42 AM [facility] LAB eGFR 88 >=60 mL/min/1. 73m2 LAB CHEMISTRY METHOD 04/13/2025 11:42 AM [facility] LAB Comment:Calculation based on the Chronic Kidney Disease Epidemiology Collaboration (CKD-EPI) equation refit without adjustment for race. BUN/Creatinine Ratio 27.1 LAB CHEMISTRY METHOD 04/13/2025 11:42 AM [facility] LAB Calcium 8.3(L) 8.5 - 10.5 mg/dL LAB CHEMISTRY METHOD 04/13/2025 11:42 AM [facility] LAB AST (SGOT) 38 10 - 42 unit/L LAB CHEMISTRY METHOD 04/13/2025 11:42 AM [facility] LAB ALT (SGPT) 110(H) 10 - 60 unit/L LAB CHEMISTRY METHOD 04/13/2025 11:42 AM [facility] LAB Alkaline Phosphatase 170(H) 42 - 121 unit/L LAB CHEMISTRY METHOD 04/13/2025 11:42 AM T [facility] LAB Total Protein 5.3(L) 6.0 - 8.0 g/dL LAB CHEMISTRY METHOD 04/13/2025 11:42 AM [facility] LAB Albumin 2.8(L) 3.2 - 5.0 g/dL LAB CHEMISTRY METHOD 04/13/2025 11:42 AM [facility] LAB Total Bilirubin 1.0 0.0 - 1.4 mg/dL LAB CHEMISTRY METHOD 04/13/2025 11:42 AM [facility] LAB Blood Venous blood specimen / Unknown Venipuncture / Unknown 04/13/2025 8:37 AM EDT 04/13/2025 10:18 AM EDT Mario Berrios MD LAB BLOOD ORDERABLES Final Resu lt [facility] LAB [address] [place] [address], documented in this encounter Visit Diagnoses Diagnosis Essential (primary) hypertension Unspecified essential hypertension documented in this encounter Care Teams Claim Taker Relationship Specialty Start Date End Date Mario Berrios MD [address] [place] [address] PCP - General Internal Medicine 04/04/25 documented as of this encounter
--- OUTSIDE RECORDS SUMMARY | 2025-08-26 23:00 | XMS_ITS | Encounter Summary ---
Author Organization [facility] Address [address] [place] [phone] Phone Care Team Providers Care Manager Market Development Name Role Phone Pcp, Unknown Primary Care Provider Unavailabl e Encounter Details Date Type Department Care Team (Late st Contact Info) Description 10/01/2024 Procedure Pass [facility] Endoscopy Admitting Dept Virtual Department [address] [place] [address] Social History Tobacco Use Types Packs/Day Years [...] on filedocumented in this encounter Care Teams Manager Market Development Relationship Specialty Start Date End Date Pcp, Unknown PCP - General 08/05/24 documented as of this encounter Additional Source Comments The information contained in this document represents components of the legal health record. It is not the complete legal health record.[facility]
--- OUTSIDE RECORDS SUMMARY | 2025-08-26 23:00 | XMS_ITS | Encounter Summary ---
Author Organization Mari [facility] Address [address] [place] [address] Care Team Providers Care Barrel Racer Name Role Phone Mario Berrios MD Primary Care Provider [phone] Encounter Details Date Type Department Care Team (Late st Contact Info) Description 05/03/2025 Lab Requisition [facility] - Main Lab 299 [facility] [place] [address] Mario Berrios MD [address] [place] [address] [phone] Essential (primary) hypertension Social History Tobacco Use [...] AM EDT) WBC 6.1 4.8 - 10.8 K/[facility] LAB HEMETOLOGY METHOD 05/04/2025 11:11 AM EDT [facility] LAB RBC 4.00 3.80 - 4.80 M/[facility] LAB HEMETOLOGY METHOD 05/04/2025 11:11 AM EDT [facility] LAB Hemoglobin 12.3 11.5 - 16.0 g/dL LAB HEMETOLOGY METHOD 05/04/2025 11:11 AM EDT [facility] LAB Hematocrit 36.4 35.0 - 47.0 % LAB HEMETOLOGY METHOD 05/04/2025 11:11 AM EDT [facility] LAB MCV 91.9 79.0 - 98.0 FL LAB HEMETOLOGY METHOD 05/04/2025 11:11 AM EDT [facility] LAB MCH 31.1 27.0 - 32.0 pcg LAB HEMETOLOGY METHOD 05/04/2025 11:11 AM EDT [facility] LAB MCHC 33.8 32.0 - 37.0 g/dL LAB HEMETOLOGY METHOD 05/04/2025 11:11 AM [facility] LAB RDW 15.1(H) 11.0 - 15.0 % LAB HEMETOLOGY METHOD 05/04/2025 11:11 AM EDT [facility] LAB Platelets 204 130 - 400 K/mcL LAB HEMETOLOGY METHOD 05/04/2025 11:11 AM EDT [facility] LAB MPV 10.3 7.0 - 11.0 FL LAB HEMETOLOGY METHOD 05/04/2025 11:11 [facility] NRBC 0.0 <1.0 % LAB HEMETOLOGY METHOD 05/04/2025 11:11 AM EDT [facility] LAB NRBC Absolute 0.00 <0.10 K/mcL LAB HEMETOLOGY METHOD 05/04/2025 11:11 AM EDT [facility] LAB Blood Venous blood specimen / Unknown Venipuncture / Unknown 05/04/2025 5:20 AM EDT 05/04/2025 10:22 AM EDT us Mario Berrios MD LAB BLOOD ORDERABLES Final Resu lt [facility] LAB [address] [place] [address], * (ABNORMAL) Comprehensive metabolic panel (05/04/2025 5:20 AM EDT) Sodium 131(L) 133 - 145 mmol/L LAB CHEMISTRY METHOD 05/04/2025 11:30 AM [facility] LAB Potassium [...] 11 LAB CHEMISTRY METHOD 05/04/2025 11:30 AM [facility] LAB Glucose 79 70 - [...] LAB CHEMISTRY METHOD 05/04/2025 11:30 AM EDT [facility] LAB Comment:Hemolysis present ALT (SGPT) 27 10 - 60 unit/L LAB CHEMISTRY METHOD 05/04/2025 11:30 AM EDT [facility] LAB Alkaline Phosphatase 140(H) 42 - 121 unit/L LAB CHEMISTRY METHOD 05/04/2025 11:30 AM EDT [facility] LAB Total Protein 5.5(L) 6.0 - 8.0 g/dL LAB CHEMISTRY METHOD 05/04/2025 11:30 AM EDT [facility] LAB Albumin 2.5(L) 3.2 - 5.0 g/dL LAB CHEMISTRY METHOD 05/04/2025 11:30 AM EDT [facility] LAB Total Bilirubin 0.8 0.0 - 1.4 mg/dL LAB CHEMISTRY METHOD 05/04/2025 11:30 AM EDT [facility] LAB Blood Venous blood specimen / Unknown Venipuncture / Unknown 05/04/2025 5:20 AM EDT 05/04/2025 10:20 AM EDT Mario Berrios MD LAB BLOOD ORDERABLES Final Resu lt [facility] LAB [address] [place] [address], documented in this encounter Visit Diagnoses Diagnosis Essential (primary) hypertension Unspecified essential hypertension documented in this encounter Care Teams Barrel Racer Relationship Specialty Start Date End Date Mario Berrios MD [address] [place] [address] PCP - General Internal Medicine 04/04/25 documented as of this encounter
--- OUTSIDE RECORDS SUMMARY | 2025-08-26 23:00 | XMS_ITS | Encounter Summary ---
Author Organization [employer] Address [address] [place] [address] Care Team Providers Care Billboard Erector Helper Name Role Phone aMrio Berrios MD Primary Care Provider [phone] Encounter Details Date Type Department Care Team (Late st Contact Info) Description 04/09/2025 Lab Requisition [facility] - Main Lab 299 [facility] [place] [address] Mario Berrios MD [address] [place] [phone] Dysuria; Urinary tract infection, site not [...] reflex microscopic (04/08/2025 4:45 PM EDT) Specific [place] Urine 1.028 1.003 - 1.030 LAB URINALYSIS - AUTOMATED METHOD 04/09/2025 12:19 PM [facility] LAB pH, Urine 5.5 5.0 - 8.0 pH LAB URINALYSIS - AUTOMATED METHOD 04/09/2025 12:19 PM [facility] LAB Leukocytes, Urine Moderate(A) Negative LAB URINALYSIS - AUTOMATED METHOD 04/09/2025 12:19 PM [facility] LAB Nitrite, Urine Positive(A) Negative LAB URINALYSIS - AUTOMATED METHOD 04/09/2025 12:19 PM [facility] LAB Protein, Urine 30(A) <=Trace mg/dL LAB URINALYSIS - AUTOMATED METHOD 04/09/2025 12:19 PM [facility] LAB Glucose, Urine 100(A) Negative mg/dL LAB URINALYSIS - AUTOMATED METHOD 04/09/2025 12:19 PM [facility] LAB Ketones, Urine Trace(A) Negative mg/dL LAB URINALYSIS - AUTOMATED METHOD 04/09/2025 12:19 PM [facility] LAB Urobilinogen , Urine 1.0 0.2 - 1.0 mg/dL LAB URINALYSIS - AUTOMATED METHOD 04/09/2025 12:19 PM [facility] LAB Bilirubin, Urine Negative Negative LAB URINALYSIS - AUTOMATED METHOD 04/09/2025 12:19 PM [facility] LAB Blood, Urine Negative Negative LAB URINALYSIS - AUTOMATED METHOD 04/09/2025 12:19 PM [facility] LAB RBC, Urine 3.7 0 - 4 /HPF LAB URINALYSIS - AUTOMATED METHOD 04/09/2025 12:19 PM [facility] LAB WBC, Urine 59.3(H) 0 - 4 /HPF LAB URINALYSIS - AUTOMATED METHOD 04/09/2025 12:19 PM [facility] LAB Squamous Epithelial, Urine 30 0 - 60 /LPF LAB URINALYSIS - AUTOMATED METHOD 04/09/2025 12:19 PM [facility] LAB Bacteria, Urine Many(A) Negative /HPF LAB URINALYSIS - AUTOMATED METHOD 04/09/2025 12:19 PM EDT [facility] LAB Hyaline Casts, Urine 8.0(H) 0 - 3 /LPF LAB URINALYSIS - AUTOMATED METHOD 04/09/2025 12:19 PM EDT [facility] LAB Urine Urine specimen obtained by clean catch procedure / Unknown Non-blood Collection / Unknown 04/08/2025 4:45 PM EDT 04/09/2025 11:37 AM EDT us Mario Berrios MD LAB URINE ORDERABLES Final Resu lt [facility] LAB [address] [place] [address], [place] [phone] * (ABNORMAL) Culture urine (04/08/2025 4:45 PM EDT) Culture, Urine >=100,000 CFU/mL Enterobacter cloacae complex(A) GEMA 04/11/2025 9:40 AM EDT [facility] LAB Comment: This is an edited [...] Berrios MD LAB MICROBIOLOGY - [facility] [facility] Final Result Performing Organization Address City/State/[facility] Co de Phone Number [facility] LAB [address] [place] [address], documented in this encounter Visit Diagnoses Diagnosis Dysuria Urinary tract infection, site not specified documented in this encounter Care Teams Billboard Erector Helper Relationship Specialty Start Date End Date Mario Berrios MD [address] [place] [address] PCP - General Internal Medicine 04/04/25 documented as of this encounter
== END 2025-08-26 15:30 | disposition home or self-care (01) ==
LOC: HO.HCS 14:39
PROVIDERS: PCP Internal Medicine
DX: I48.19 Other persistent atrial fibrillation (principal); I50.9 Heart failure, unspecified; I10 Essential (primary) hypertension; E78.5 Hyperlipidemia, unspecified
CPT/HCPCS: 99214; G2211

== ENCOUNTER → 2025-08-26 14:38 | Outpatient (BNVA) | payer MEDICARE, OTHER, SELFPAY | PROVIDERS: PCP Internal Medicine | DX: I10 Essential (primary) hypertension (principal); I48.19 Other persistent atrial fibrillation; I50.9 Heart failure, unspecified; E78.5 Hyperlipidemia, unspecified | CPT/HCPCS: 99212 ==

== ENCOUNTER 2025-09-07 13:52 | Outpatient (AMB) | payer MEDICARE, OTHER, SELFPAY ==
[2025-09-07 14:04] VITALS: BP 128/72; PULSE 82; BMI 20.3
--- NOTE | 2025-09-07 14:04 | A.OFFVIS_ITS ---
Vital Signs 09/07/25 14:04 Height 5 ft 6 in Weight 126 lb BMI 20.3 BP 128/72 Blood Pressure Location Rt brachial Position Sitting Pulse 82 Intake Visit Reasons: s/p Colon rescection Lap Intake Note: Patient presents for two week follow-up, s/p colon resection, colostomy in place. Pt c/o; abdomen area feeling sore. Still taking rx pain meds as needed. Ostomy working well. 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 She says that she still has periodic leakage of stool from around her stoma. However, her stoma appliance seems to be staying in place longer. She still has pain around the stoma site and as well as on the lower abdomen. However, her oral intake seems to be little better and she denies any vomiting. She is taking Ensure supplements. She is still in a rehab facility but is supposed to be discharged to home next week. 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 Mother No problems noted. Son Diabetes Social History Household Members: None Household Members Other:: d/c from [facility] 05/06 staying w/ daughter Barbara at this time. Housing: House Are you a primary career technical education teacher to a significant other at home: No Do you presently have visiting nurse or other home services: No Alcohol intake: former Comment: reports discomfort Patient Tobacco Use Status: Never used Tobacco e-Cigarette/Vaping Use: Never Used Second Hand Smoke Exposure: No Advance Directives Date on File: 12/10/24 service: No Current occupational status: retired Gender identity: Female Cognitive needs: No Hearing needs: No Vision needs: Yes Review of Systems Const Denies chills and Denies fever(s) Card Denies chest pain GI Details: Stoma functioning well Denies difficulty voiding Physical Exam Vital Signs: Last Vital Signs Pulse 82 09/07/25 14:04 BP 128/72 09/07/25 14:04 BMI result Body Mass Index 20.3 Const General: comfortable and no acute distress Resp Effort & Inspection: normal respiratory effort GI Other: Stoma with good output, mild skin breakdown on the peristomal skin Palpation (GI): Soft to palpation, not firm and no guarding Assessment & Plan Assessment & Plan (1) Colostomy in place: Code(s): Z93.3 - Colostomy status Category: Medical Plan: She continues to do well. She does have problems with buttock pain around her stoma as well as in the lower abdomen. However, her oral intake is improving. Her stoma has been functioning well. She continues to have problems with leakage around the appliance. We have changed her stoma appliance. Aiv, our stoma nurses working with her for optimal care of her stoma We will see her again in the office in about 2 weeks. Coding Level of Care Code Global (45523) Diagnoses Colostomy in place Z93.3
--- OUTSIDE RECORDS SUMMARY | 2025-09-07 17:21 | XMS_ITS | Clinical Summary ---
Author Organization [facility] Address [address] [place] [phone] Phone Care Team Providers Care Whizzer Hand Name Role Phone Pcp, Unknown Primary Care [...] EDT) SODIUM 131(L) 133 - 146 mmol/L [facility] POTASSIUM 4.6 3.3 - 5.1 mmol/L [facility] CHLORIDE 92(L) 96 - 108 mmol/L [facility] CO2 30 21 - 35 mmol/L [facility] BUN 30(H) 6 - 19 mg/dL [facility] CREATININE 0.50 0.5 - 1.5 mg/dL [facility] GLUCOSE 123(H) 70 - 99 mg/dL [facility] ALBUMIN 3.3(L) 3.9 - 4.8 g/dL [facility] TOTAL PROTEIN 5.4(L) 6.5 - 8.0 g/dL [facility] CALCIUM 8.5 8.4 - 10.3 mg/dL [facility] ALKALINE PHOSPHATASE 53 39 - 117 U/L [facility] TOTAL BILIRUBIN 1.8(H) 0.0 - 1.2 mg/dL [facility] AST 14 0 - 37 U/L [facility] ALT 32 0 - 40 U/L [facility] GLOBULIN 2.1 1 - 4.8 g/dL [facility] EGFR 92 >59 mL/min/1.7 3m2 [facility] Comment:Estimated glomerular filtration rate calculated using the CKD-EPI refit equation. ANION GAP 14 10 - 20 mmol/L [facility] 03/30/2025 5:51 AM EDT 03/30/2025 10:16 AM EDT us Walt Cruz MD LAB BLOOD BKR ORDERABLES Final R esult [facility] [address] [place] [address] from Last 3 Months or Most Recently Relevant to Health Maintenance Insurance MEDICARE PART A & B [facility] MEDICARE ENHANCE SUPPLEMENT [facility] Address: [facility] [id number] [id number] MEDICARE PART A & B [facility] MEDICARE ENHANCE SUPPLEMENT MEDICARE PART A & B [facility] MEDICARE ENHANCE SUPPLEMENT [facility] Address: [facility] [id number] [place] [id number] MEDICARE PART A & B [facility] MEDICARE ENHANCE SUPPLEMENT MEDICARE PART A & B [facility] MEDICARE ENHANCE SUPPLEMENT MEDICARE PART A & B [facility] MEDICARE ENHANCE SUPPLEMENT Care Teams Whizzer Hand Relationship Specialty Start Date End Date Pcp, Unknown PCP - General 08/05/24 Additional Source Comments The information contained in this document represents components of the legal health record. It is not the complete legal health record.[facility]
--- OUTSIDE RECORDS SUMMARY | 2025-09-07 17:21 | XMS_ITS | Encounter Summary ---
Author Organization [facility] Address [address] [place] [address] Care Team Providers Care Sweat Band Sewer Name Role Phone Mario Berrios MD Primary Care Provider [phone] Encounter Details Date Type Department Care Team (Late st Contact Info) Description 04/06/2025 Lab Requisition [facility] - Main Lab [address] [facility] [place] [address] Mario Berrios MD [address] [place] [phone] Essential (primary) hypertension Social History Tobacco Use [...] LAB CHEMISTRY METHOD 04/06/2025 1:16 PM T [facility] Potassium 5.8(H) 3.5 - 5.5 mmol/L LAB CHEMISTRY METHOD 04/06/2025 1:16 PM EDT [facility] Comment:Hemolysis present Chloride 96 96 - 110 mmol/L LAB CHEMISTRY METHOD 04/06/2025 1:16 PM [facility] CO2 24 21 - 32 mmol/L LAB CHEMISTRY METHOD 04/06/2025 1:16 PM [facility] Anion Gap 10 3 - 11 LAB CHEMISTRY METHOD 04/06/2025 1:16 PM [facility] Glucose 97 70 - 100 mg/dL LAB CHEMISTRY METHOD 04/06/2025 1:16 PM [facility] BUN 20 5 - 25 mg/dL LAB CHEMISTRY METHOD 04/06/2025 1:16 PM [facility] Creatinine 0.65 0.50 - 1.10 mg/dL LAB CHEMISTRY METHOD 04/06/2025 1:16 PM [facility] eGFR 86 >=60 mL/min/1. 73m2 LAB CHEMISTRY METHOD 04/06/2025 1:16 PM [facility] Comment:Calculation based on the Chronic Kidney Disease Epidemiology Collaboration (CKD-EPI) equation refit without adjustment for race. BUN/Creatinine Ratio 30.8 LAB CHEMISTRY METHOD 04/06/2025 1:16 PM [facility] Calcium 8.6 8.5 - 10.5 mg/dL LAB CHEMISTRY METHOD 04/06/2025 1:16 PM [facility] AST (SGOT) 28 10 - 42 unit/L LAB CHEMISTRY METHOD 04/06/2025 1:16 PM [facility] Comment:Hemolysis present ALT (SGPT) 34 10 - 60 unit/L LAB CHEMISTRY METHOD 04/06/2025 1:16 PM [facility] Alkaline Phosphatase 78 42 - 121 unit/L LAB CHEMISTRY METHOD 04/06/2025 1:16 PM [facility] Total Protein 5.7(L) 6.0 - 8.0 g/dL LAB CHEMISTRY METHOD 04/06/2025 1:16 PM [facility] Albumin 3.0(L) 3.2 - 5.0 g/dL LAB CHEMISTRY METHOD 04/06/2025 1:16 PM EDT [facility] Total Bilirubin 0.8 0.0 - 1.4 mg/dL LAB CHEMISTRY METHOD 04/06/2025 1:16 PM EDT [facility] Blood Venous blood specimen / Unknown Venipuncture / Unknown 04/06/2025 5:18 AM EDT 04/06/2025 10:40 AM EDT us Mario Berrios MD LAB BLOOD ORDERABLES Final Resu lt [facility] [address] [place] [address], [place] [phone] * (ABNORMAL) Complete blood count (04/06/2025 5:18 AM EDT) WBC 10.8 4.8 - 10.8 K/mcL LAB HEMETOLOGY METHOD 04/06/2025 11:40 AM [facility] RBC 4.00 3.80 - 4.80 M/mcL LAB HEMETOLOGY METHOD 04/06/2025 11:40 AM [facility] Hemoglobin 12.4 11.5 - 16.0 g/dL LAB HEMETOLOGY METHOD 04/06/2025 11:40 AM [facility] Hematocrit 38.3 35.0 - 47.0 % LAB HEMETOLOGY METHOD 04/06/2025 11:40 AM T [facility] MCV 95.8 79.0 - 98.0 FL LAB HEMETOLOGY METHOD 04/06/2025 11:40 AM [facility] MCH 31.0 27.0 - 32.0 pcg LAB HEMETOLOGY METHOD 04/06/2025 11:40 AM [facility] MCHC 32.4 32.0 - 37.0 g/dL LAB HEMETOLOGY METHOD 04/06/2025 11:40 AM EDT [facility] RDW 15.3(H) 11.0 - 15.0 % LAB HEMETOLOGY METHOD 04/06/2025 11:40 AM EDT [facility] Platelets 166 130 - 400 K/mcL LAB HEMETOLOGY METHOD 04/06/2025 11:40 AM EDT [facility] MPV 12.4(H) 7.0 - 11.0 FL LAB HEMETOLOGY METHOD 04/06/2025 11:40 AM EDT [facility] NRBC 0.0 <1.0 % LAB HEMETOLOGY METHOD 04/06/2025 11:40 AM EDT [facility] NRBC Absolute 0.00 <0.10 K/mcL LAB HEMETOLOGY METHOD 04/06/2025 11:40 AM EDT [facility] Blood Venous blood specimen / Unknown Venipuncture / Unknown 04/06/2025 5:18 AM EDT 04/06/2025 10:40 AM EDT Mario Berrios MD LAB BLOOD ORDERABLES Final Resu lt [facility] [address] [place] [address], documented in this encounter Visit Diagnoses Diagnosis Essential (primary) hypertension Unspecified essential hypertension documented in this encounter Care Teams Sweat Band Sewer Relationship Specialty Start Date End Date Mario Berrios MD [address] [place] [address] PCP - General Internal Medicine 04/04/25 documented as of this encounter
--- OUTSIDE RECORDS SUMMARY | 2025-09-07 17:21 | XMS_ITS | Encounter Summary ---
Author Organization [facility] Address [address] [place] [address] Care Team Providers Care Blister Packing Machine Tender Name Role Phone Mario Berrios MD Primary Care Provider [phone] Encounter Details Date Type Department Care Team (Late st Contact Info) Description 04/04/2025 Lab Requisition [facility] - Main Lab [address] [facility] [place] [address] Mario Berrios MD [address] [place] [phone] Essential (primary) hypertension Social History Tobacco Use [...] LAB CHEMISTRY METHOD 04/04/2025 1:38 PM EDT [facility] Potassium 5.0 3.5 - 5.5 mmol/L LAB CHEMISTRY METHOD 04/04/2025 1:38 PM EDT [facility] Chloride 94(L) 96 - 110 mmol/L LAB CHEMISTRY METHOD 04/04/2025 1:38 PM [facility] CO2 31 21 - 32 mmol/L LAB CHEMISTRY METHOD 04/04/2025 1:38 PM [facility] Anion Gap 8 3 - 11 LAB CHEMISTRY METHOD 04/04/2025 1:38 PM [facility] Glucose 122(H) 70 - 100 mg/dL LAB CHEMISTRY METHOD 04/04/2025 1:38 PM [facility] BUN 21 5 - 25 mg/dL LAB CHEMISTRY METHOD 04/04/2025 1:38 PM [facility] Creatinine 0.62 0.50 - 1.10 mg/dL LAB CHEMISTRY METHOD 04/04/2025 1:38 PM [facility] eGFR 87 >=60 mL/min/1. 73m2 LAB CHEMISTRY METHOD 04/04/2025 1:38 PM [facility] Comment:Calculation based on the Chronic Kidney Disease Epidemiology Collaboration (CKD-EPI) equation refit without adjustment for race. BUN/Creatinine Ratio 33.9 LAB CHEMISTRY METHOD 04/04/2025 1:38 PM [facility] Calcium 9.0 8.5 - 10.5 mg/dL LAB CHEMISTRY METHOD 04/04/2025 1:38 PM [facility] AST (SGOT) 17 10 - 42 unit/L LAB CHEMISTRY METHOD 04/04/2025 1:38 PM [facility] ALT (SGPT) 34 10 - 60 unit/L LAB CHEMISTRY METHOD 04/04/2025 1:38 PM [facility] Alkaline Phosphatase 65 42 - 121 unit/L LAB CHEMISTRY METHOD 04/04/2025 1:38 PM [facility] Total Protein 5.6(L) 6.0 - 8.0 g/dL LAB CHEMISTRY METHOD 04/04/2025 1:38 PM [facility] Albumin 2.9(L) 3.2 - 5.0 g/dL LAB CHEMISTRY METHOD 04/04/2025 1:38 PM EDT [facility] Total Bilirubin 0.9 0.0 - 1.4 mg/dL LAB CHEMISTRY METHOD 04/04/2025 1:38 PM EDT [facility] Blood Venous blood specimen / Unknown Venipuncture / Unknown 04/04/2025 8:27 AM EDT 04/04/2025 12:53 PM EDT us Mario Berrios MD LAB BLOOD ORDERABLES Final Resu lt [facility] [address] [place] [address], [place] [phone] * (ABNORMAL) Complete blood count (04/04/2025 8:27 AM EDT) WBC 11.0(H) 4.8 - 10.8 K/mcL LAB HEMETOLOGY METHOD 04/04/2025 1:20 PM EDT [facility] RBC 4.30 3.80 - 4.80 M/mcL LAB HEMETOLOGY METHOD 04/04/2025 1:20 PM EDT [facility] Hemoglobin 13.2 11.5 - 16.0 g/dL LAB HEMETOLOGY METHOD 04/04/2025 1:20 PM EDT [facility] Hematocrit 40.2 35.0 - 47.0 % LAB HEMETOLOGY METHOD 04/04/2025 1:20 PM EDT [facility] MCV 93.7 79.0 - 98.0 FL LAB HEMETOLOGY METHOD 04/04/2025 1:20 PM EDT [facility] MCH 30.8 27.0 - 32.0 pcg LAB HEMETOLOGY METHOD 04/04/2025 1:20 PM EDT [facility] MCHC 32.8 32.0 - 37.0 g/dL LAB HEMETOLOGY METHOD 04/04/2025 1:20 PM EDT [facility] RDW 15.3(H) 11.0 - 15.0 % LAB HEMETOLOGY METHOD 04/04/2025 1:20 PM EDT [facility] Platelets 179 130 - 400 K/mcL LAB HEMETOLOGY METHOD 04/04/2025 1:20 PM EDT [facility] MPV 11.9(H) 7.0 - 11.0 FL LAB HEMETOLOGY METHOD 04/04/2025 1:20 PM EDT [facility] NRBC 0.0 <1.0 % LAB HEMETOLOGY METHOD 04/04/2025 1:20 PM EDT [facility] NRBC Absolute 0.00 <0.10 K/mcL LAB HEMETOLOGY METHOD 04/04/2025 1:20 PM EDT [facility] Blood Venous blood specimen / Unknown Venipuncture / Unknown 04/04/2025 8:27 AM EDT 04/04/2025 12:53 PM EDT us Mario Berrios MD LAB BLOOD ORDERABLES Final Resu lt [facility] [address] [place] [address], documented in this encounter Visit Diagnoses Diagnosis Essential (primary) hypertension Unspecified essential hypertension documented in this encounter Care Teams Blister Packing Machine Tender Relationship Specialty Start Date End Date Mario Berrios MD [address] [place] [phone] PCP - General Internal Medicine 04/04/25 documented as of this encounter
--- OUTSIDE RECORDS SUMMARY | 2025-09-07 17:21 | XMS_ITS | Encounter Summary ---
Author Organization [facility] Address [address] [place] [address] Care Team Providers Care Marshmallow Maker Name Role Phone Mario Berrios MD Primary Care Provider [phone] Encounter Details Date Type Department Care Team (Late st Contact Info) Description 04/23/2025 Lab Requisition [facility] - Main Lab [address] [facility] [place] [address] Mario Berrios MD [address] [place] [address] Diarrhea, unspecified Social History Tobacco [...] unspecified documented in this encounter Care Teams Marshmallow Maker Relationship Specialty Start Date End Date Mario Berrios MD [address] [place] [address] PCP - General Internal Medicine 04/04/25 documented as of this encounter
--- OUTSIDE RECORDS SUMMARY | 2025-09-07 17:21 | XMS_ITS | Data Portability ---
Author Organization [facility], Main Office Address [address] [place] [address] Care Team Providers Care Home Hospice Rn Name Role Phone [facility] OTHER ISABELA MARQUEZ Primary Care Provider [phone] Assessment No assessment recorded. Plan of Treatment [...] Address Organization Details Recorded Time Recurrent falls 391927120 Active 2024 Gucci Harris [address], [address], [place], [address], [facility] 5 11:35:33 Drug-induced constipation 86000564 Active 2024 Gucci Harris [address], [address], [place], [address], [facility] 5 11:35:33 Anxiety 90724788 Active 2024 Gucci Harris [address], [address], [place], [address], [facility] 5 11:35:34 Gastroesophage al reflux disease 600819546 Active 2024 Gucci Harris [address], [address], [place], [address], [facility] 5 11:35:36 Acute hyponatremia 1936046 Active 2024 Gucci Harris [address], [place], [address], [facility] 5 11:35:37 Asthenia 60108844 Active 2024 Gucci Harris [address], [place], [address], [facility] 5 11:35:39 Peripheral neuropathic pain 562038404 Active 2024 Gucci Harris [address], [place], [address], [facility] 5 11:35:40 Chronic low back pain 033053713 Active 2024 Gucci Harris [address], [place], [address], [facility] 5 11:35:41 Multiple myeloma 583427854 Active 2024 Gucci Harris [address], [address], [place], [address], [facility] 5 11:35:43 Hyperlipidemia 09757600 Active 2024 Gucci Harris [address], [place], [address], [facility] 5 11:35:45 Essential hypertension 21191262 Active 2024 Gucci Harris [address], [address], [place], [address], [facility] 5 11:35:46 Persistent atrial fibrillation 057434753 Active 2024 Gucci Harris [address], [place], [address], [facility] 5 11:35:50 Problem Notes None recorded. Medical Equipment None Reported. Allergies Allergen ID Allergen Name Allergen Category Reaction Reaction Severity Criticality Documentation Date Start Date Code Code System Note Provider Name and Address Organization Details Recorded Time 76896 [facility] medicatio n Not available Not available Not available 03/30/2025 5470 RxNorm Gucci Harris [address], [address], [place], [address], [facility] 5 10:36:02 32510 sotalol medicatio n Not available Not available Not available 03/30/2025 9947 RxNorm Gucci Harris [address], [address], [place], [address], [facility] 5 10:36:27 59334 amlodipin e medicatio n Not available Not available Not available 03/30/2025 84456 RxNorm Gucci Harris [address], [address], [place], [address], [facility] 5 10:36:33 47293 hydrochlo rothiazid e medicatio n Not available Not available Not available 03/30/2025 5487 RxNorm Gucci Harris [address], [address], [place], [address], [facility] 5 10:56:32 Medications Name Sig Start Date [...] Address Organization Details Last Updated DateTime 5 [address].7 5 g 97 [degF] 84 /min 16 /min 100/67 mm[Hg] Walt Cruz MD [address], [address], [place], [address], [place] [facility] 5 12:05:50 Social History Question Answer Notes LastModified by Organizat ion Details LastModified Time Tobacco Smoking Status Never Smoker Brant [address], [address], [place], [address], [facility] 04/01/2025 09:25:48 Do You Have An [...] ICD10 Code Diagnosis IMO Codes Diagnosis Note [id number] Jean-Paul [facility] [place] [place] [address] 03/30/2025 10:34:37 03/31/2025 15:55:46 Persistent atrial fibrillation 762760792 I48.19 450324 continue diltiazem 240mg qd, metoprolol 50mg BID (hold for SBP < 90, HR < 60) and eliquis 5mg BIDmonitor rate Essential hypertension 65542866 I10 64171 Continue diltiazem 240 qd with parameters , metoprolol 50mg BIDmonitor BP and labs Hyperlipidemia 66330959 E78.5 35511859 Continue simvastati n 20mg qhsmonitor lipids PRN Multiple myeloma 1561404 06 C90.00 4524230 multiple thoracic and lumbar metastatic lesions with multilevel lumbar compressio nfollows oncology with future plans for palliative radiationC ontinue prednisone taper 40mg qd x 5d, 30mg qd x 5d, 20mg qd x 5d, 10mg qd x 5dupdate onc with concerns Peripheral neuropathic pain 703296086 M79.2 11814723 Continue hydromorph one 2mg q4h PRN- monitor utilizatio n Asthenia 49310174 R53.1 34227 Admit to services PT/OT for strengthen ing, balance, gait training, safety and function.C ontinue fall precaution s.Monitor for safety. Acute hyponatremia 48421 02 E87.1 25274 multifacto rial secondary to poor po intake and SIADH from MMContinue sodium tablet 1g TID1L fluid restrictio nmonitor labs Gastroesop hageal reflux disease 150572032 K21.9 6104157687 continue omeprazole 20mg qdmonitor sxs Anxiety 29435447 F41.9 84569 continue lorazepam 0.5mg qhs PRN x 14 days and monitor utilizatio nmonitor mood and consult if needed Chronic low back pain 27 7233017 M54.50 G89.29 6555445818 secondary to progressiv e MMContinue hydromorph one 2mg q4h PRN- monitor utilizatio n, hydrocorti sone topically BID, lidocaine patch 5% qd Drug-induc ed constipation 57557719 K59.03 8840 continue senna 17.2mg qd and colace 100mg BIDmonitor bowels and titrate PRN Recurrent falls 99608916 2 R29.6 88134 Continue fall precaution s.Monitor for safety. [id number] Walt Cruz MD [facility] [address] [address] 04/02/2025 12:05:16 04/06/2025 15:54:20 Asthenia 56504777 R53.1 09665 PT OT eval and treatmonit or need for increased support in community Abnormal gait 96470614 R 26.81 230990 therapy to followmoni tor fall risk Persistent atrial fibrillation 697575658 I48.19 207108 rapid a fib required cardizem drip and followed by cards remains on eliquismon itor for rate control Essential hypertension 54002973 I10 31982 monitor bp and need to titrate medication s Hyperlipidemia 75183416 E78.5 12901390 simvastati n 20 mg qdcontinue d Multiple myeloma 7563929 06 C90.00 5225242 multiple myeloma with thoracic and lumbar mets, with increasing weaknessre c is for palliative radiation however held due to elevated liver enzymescoo rdinate with oncology Peripheral neuropathic pain 289711666 M79.2 54087744 see abovemulti factorialm onitor sx relief and need to titrate medication Acute hyponatremia 62722 02 E87.1 96088 Acute on chronic hyponatrem ia with SIADH and multiple myeloma eval by nephro and started on salt tabs and fluid restrictio nupdate nephro with concerns Gastroesop hageal reflux disease 827362336 K21.9 0889525587 omeprazole 20 mg qdmonitor sx relief Drug-induc ed constipation 59977183 K59.03 8840 bowel protocolmo nitor for effect Degenerati ve lumbar spinal stenosis 364330699 M48.061 211504 severe canal stenosis at L2-3, discussed with neurosurge ry and treated with decadron 4 mg q 8coordinat e with neurosurge ry [id number] Cayla_Gavin [facility] AT [address] [address] 04/03/2025 08:05:24 04/07/2025 08:14:36 Persistent atrial fibrillation 620220154 I48.19 033358 continue diltiazem 240mg qd, metoprolol 50mg BID (hold for SBP < 90, HR < 60) and eliquis 5mg BIDfacilit y as been out of diltiazem- rate has been uncontroll ed 80-120s Essential hypertension 76227530 I10 18457 Continue diltiazem 240 qd with parameters , metoprolol 50mg BID Hyperlipidemia 26975357 E78.5 59806228 Continue simvastati n 20mg qhsmonitor lipids outpatient Multiple myeloma 2829637 06 C90.00 0908842 multiple thoracic and lumbar metastatic lesions with multilevel lumbar compressio nfollows oncology with future plans for palliative radiationC ontinue prednisone taper 40mg qd x 5d, 30mg qd x 5d, 20mg qd x 5d, 10mg qd x 5df/u Onc as planned Chronic low back pain 27 4282180 M54.50 G89.29 5320314356 secondary to progressiv e MMContinue hydromorph one 2mg q4h PRN- monitor utilizatio n, hydorcorti sone topically BID, lidocaine patch 5% qd Peripheral neuropathic pain 440314410 M79.2 35367446 Continue hydromorph one 2mg q4h PRN Asthenia 96355188 R53.1 32495 Particpate d in PT/OT for strengthen ing, balance, gait training, safety and function. Acute hyponatremia 26597 02 E87.1 07537 multifacto rial secondary to poor po intake and SIADH from MMmost recent NA 131Continu e sodium tablet 1g TID1L fluid restrictio nf/u outpatient for lab monitoring Gastroesop hageal reflux disease 814052531 K21.9 8245625393 continue omeprazole 20mg qd Anxiety 43078816 F41.9 73955 continue lorazepam 0.5mg qhs PRN Drug-induc ed constipation 00754023 K59.03 8840 continue senna 17.2mg qd and colace 100mg BIDRecent large BM Recurrent falls 89763115 2 R29.6 43782 04/02 lowering herself to the floor while trying to standno apparent injuries but some buttock pain relieved with pain medication sContinue fall precaution s.Monitor for safety. 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 CXR if cough persists Health Concerns Section Related Observation LastModified by Organization Detai ls LastModified Time None Recorded Concern Status LastModified by Organization Details LastModified Time None Recorded Advance Directives Directive Y: Payers Insurance Date Sequence Insurance Name Policy Number Policy Hernandez Covered Member ID Hernandez Member ID Guarantor Name 04/06/2025 2 [facility] (MEDICARE SUPPLEMENT) Yesenia Fisher [id number] Yesenia Fisher 03/31/2025 1 [place] [employer] Yesenia Fisher [id number] Yesenia Fisher Notes Date Note Type Note Provider Name and Address Organization Details Recorded Time 03/30/20 25 text/htm l Patient is an 84 yo female who presents for initial intake visit PM afib on eliquis, HLD, peripheral neuropathy, HTN and MM with multiple thoracic and lumbar metastatic lesions with multilevel lumbar compression Presented to [facility] due to difficulty ambulating, RLE weakness and [...] started on salt tablets and sodium restriction. [place] to be due to poor PO intake/chronic [...] with recs for rehab and discharged to [place] on 03/28/25 for STR/PT/OT RITA 65MOLST FULL CODE Cayla_Tra Sorensen [address], [address], [place], [address], [facility] 03/30/2025 11:36:18 04/02/20 25 text/htm l Patient [...] therapy eval and treat Walt Cruz MD [address] [place] [address], [address], [place], [address], [place] [facility] 04/02/2025 12:35:31 04/03/20 25 text/htm l Patient is an 84 yo female who presents for discharge summary PMH afib on eliquis, HLD, peripheral neuropathy, HTN and MM with multiple thoracic and lumbar metastatic lesions with multilevel lumbar compression Presented to [facility] due to difficulty ambulating, RLE weakness and [...] started on salt tablets and sodium restriction. [place] to be due to poor PO intake/chronic [...] with recs for rehab and discharged to [place] on 03/28/25 for STR/PT/OT. She actively participated in therapy. Ambulating 25ft with 2WW. She was noted with an acute productive cough and evaluated by COMPUTER TECHNOLOGY TRAINER. No swallowing dysfunction on exam and recs [...] medically stable and okay to discharge to [facility] with meds and services A_Tra Sorensen [address] [place] [address], [address], [place], [address], [facility] 04/03/2025 09:51:51 OBGyn Episode No OBEpisode recorded.
--- OUTSIDE RECORDS SUMMARY | 2025-09-07 17:21 | XMS_ITS | Encounter Summary ---
Author Organization [facility] Address [address] [place] [address] Care Team Providers Care Relief Operator Name Role Phone Mario Berrios MD Primary Care Provider [phone] Encounter Details Date Type Department Care Team (Late st Contact Info) Description 08/18/2025 Lab Requisition [facility] - Main Lab [address] [place] [address] Roverto Jurado MD [address] [place] [address] Unspecified atrial fibrillation (CMS/HCC V24, CMS/HCC V28); [...] V28) Type 2 diabetes mellitus without complications (CMS/[facility] V24, [facility] V28) documented in this encounter Results * (ABNORMAL) Hemoglobin A1c (08/18/2025 5:47 AM EST) Hemoglobin A1C 7.0(H) <6.5 % LAB CHEMISTRY METHOD 08/18/2025 2:27 PM EST [facility] Mean Bld Glu Estim. 154 mg/dL LAB CHEMISTRY METHOD 08/18/2025 2:27 PM [facility] Blood Venous blood specimen / Unknown Venipuncture / Unknown 08/18/2025 5:47 AM EST 08/18/2025 10:57 AM EST us Roverto Jurado MD LAB BLOOD ORDERABLES Final Result [facility] [address] [place] [address], * (ABNORMAL) Comprehensive metabolic panel (08/18/2025 5:47 AM EST) Pathologist [facility] [place] Sodium 134 133 - 145 mmol/L 08/18/2025 12:31 PM [facility] Potassium 3.0(L) 3.5 - 5.5 mmol/L 08/18/2025 12:31 PM [facility] Chloride 95(L) 96 - 110 mmol/L 08/18/2025 12:31 PM [facility] CO2 30 21 - 32 mmol/L 08/18/2025 12:31 PM [facility] Anion Gap 9 3 - 11 08/18/2025 12:31 PM [facility] Glucose 87 70 - 100 mg/dL 08/18/2025 12:31 PM [facility] BUN 6 5 - 25 mg/dL 08/18/2025 12:31 PM [facility] Creatinine 0.37(L) 0.50 - 1.10 mg/dL 08/18/2025 12:31 PM [facility] eGFR 99 >=60 mL/min/1. 73m2 08/18/2025 12:31 PM [facility] Comment:Calculation based on the Chronic Kidney Disease Epidemiology Collaboration (CKD-EPI) equation refit without adjustment for race. BUN/Creatinine Ratio 16.2 08/18/2025 12:31 PM [facility] Calcium 7.0(L) 8.5 - 10.5 mg/dL 08/18/2025 12:31 PM [facility] AST (SGOT) 18 10 - 42 unit/L 08/18/2025 12:31 PM [facility] ALT (SGPT) 26 10 - 60 unit/L 08/18/2025 12:31 PM [facility] Alkaline Phosphatase 159(H) 42 - 121 unit/L 08/18/2025 12:31 PM [facility] Total Protein 4.9(L) 6.0 - 8.0 g/dL 08/18/2025 12:31 PM [facility] Albumin 2.8(L) 3.2 - 5.0 g/dL 08/18/2025 12:31 PM [facility] Total Bilirubin 0.4 0.0 - 1.4 mg/dL 08/18/2025 12:31 PM [facility] Blood Venous blood specimen / Unknown Venipuncture / Unknown 08/18/2025 5:47 AM EST 08/18/2025 10:57 AM EST us Roverto Jurado MD LAB BLOOD ORDERABLES Final Result [facility] [address] [place] [address], [place] [phone] * (ABNORMAL) Complete blood count (08/18/2025 5:47 AM EST) [facility] WBC 6.9 4.8 - 10.8 K/mcL LAB HEMETOLOGY METHOD 08/18/2025 12:04 PM [facility] RBC 3.50(L) 3.80 - 4.80 M/mcL LAB HEMETOLOGY METHOD 08/18/2025 12:04 PM [facility] Hemoglobin 10.6(L) 11.5 - 16.0 g/dL LAB HEMETOLOGY METHOD 08/18/2025 12:04 PM [facility] Hematocrit 31.6(L) 35.0 - 47.0 % LAB HEMETOLOGY METHOD 08/18/2025 12:04 PM [facility] MCV 90.0 79.0 - 98.0 FL LAB HEMETOLOGY METHOD 08/18/2025 12:04 PM [facility] MCH 30.2 27.0 - 32.0 pcg LAB HEMETOLOGY METHOD 08/18/2025 12:04 PM [facility] MCHC 33.5 32.0 - 37.0 g/dL LAB HEMETOLOGY METHOD 08/18/2025 12:04 PM [facility] RDW 14.2 11.0 - 15.0 % LAB HEMETOLOGY METHOD 08/18/2025 12:04 PM [facility] Platelets 327 130 - 400 K/mcL LAB HEMETOLOGY METHOD 08/18/2025 12:04 PM [facility] MPV 10.1 7.0 - 11.0 FL LAB HEMETOLOGY METHOD 08/18/2025 12:04 PM [facility] NRBC 0.0 <1.0 % LAB HEMETOLOGY METHOD 08/18/2025 12:04 PM [facility] NRBC Absolute 0.00 <0.10 K/mcL LAB HEMETOLOGY METHOD 08/18/2025 12:04 PM EST [facility] Blood Venous blood specimen / Unknown Venipuncture / Unknown 08/18/2025 5:47 AM EST 08/18/2025 10:57 AM EST us Roverto Jurado MD LAB BLOOD ORDERABLES Final Result [facility] [address] [place] [address], documented in this encounter Visit Diagnoses Diagnosis Unspecified atrial fibrillation (CMS/HCC V24, CMS/[facility] V28) Type 2 diabetes mellitus without complications (CMS/[facility] V24, [facility] V28) documented in this encounter Care Teams Relief Operator Relationship Specialty Start Date End Date Mario Berrios MD [address] [place] [address] PCP - General Internal Medicine 04/04/25 documented as of this encounter
--- OUTSIDE RECORDS SUMMARY | 2025-09-07 17:21 | XMS_ITS | Encounter Summary ---
Author Organization [employer] [facility] Address [address] [place] [address] Care Team Providers Care Machine Bunch Maker Name Role Phone Mario Berrios MD Primary Care Provider [phone] Encounter Details Date Type Department Care Team (Late st Contact Info) Description 08/19/2025 Lab Requisition [facility] - Main Lab [address] [facility] [place] [address] Roverto Jurado MD [address] [place] [address] Malignant (primary) neoplasm, unspecified (CMS/HCC V24, CMS/HCC [...] Hold for add-ons. 08/19/2025 12:02 PM EST [facility] Comment:Auto resulted. Blood Venous blood specimen / Unknown Venipuncture / Unknown 08/19/2025 6:01 AM EST 08/19/2025 10:45 AM EST us Roverto Jurado MD LAB BLOOD ORDERABLES Final Result [facility] [address] [place] [address], documented in this encounter Visit Diagnoses Diagnosis Malignant (primary) neoplasm, unspecified ([facility]/HCC V24, [facility] V28) Unspecified atrial fibrillation ([facility] V24, [facility] V28) Type 2 diabetes mellitus without complications ([facility] V24, [facility] V28) documented in this encounter Care Teams Machine Bunch Maker Relationship Specialty Start Date End Date Mario Berrios MD [address] [place] [address] PCP - General Internal Medicine 04/04/25 documented as of this encounter
--- OUTSIDE RECORDS SUMMARY | 2025-09-07 17:21 | XMS_ITS | Encounter Summary ---
Author Organization [facility] Address [address] [place] [address] Care Team Providers Care Director Of Primary Name Role Phone Mario Berrios MD Primary Care Provider [phone] Encounter Details Date Type Department Care Team (Late st Contact Info) Description 08/22/2025 Lab Requisition [facility] - Main Lab [address] [facility] [place] [address] Roverto Jurado MD [address] [place] [address] Hypokalemia Social History Tobacco Use Types Packs/Day [...] - 145 mmol/L 08/22/2025 11:53 AM EST [facility] Potassium 3.6 3.5 - 5.5 mmol/L 08/22/2025 11:53 AM EST [facility] Chloride 97 96 - 110 mmol/L 08/22/2025 11:53 AM EST [facility] CO2 31 21 - 32 mmol/L 08/22/2025 11:53 AM EST [facility] Anion Gap 9 3 - 11 08/22/2025 11:[address] [facility] Glucose 93 70 - 100 mg/dL 08/22/2025 11:[address] [facility] BUN <5(L) 5 - 25 mg/dL 08/22/2025 11:[address] [facility] Creatinine 0.43(L) 0.50 - 1.10 mg/dL 08/22/2025 11:[address] [facility] eGFR 95 >=60 mL/min/1. 73m2 08/22/2025 11:[address] [facility] Comment:Calculation based on the Chronic Kidney Disease Epidemiology Collaboration (CKD-EPI) equation refit without adjustment for race. Calcium 8.0(L) 8.5 - 10.5 mg/dL 08/22/2025 11:[address] [facility] AST (SGOT) 20 10 - 42 unit/L 08/22/2025 11:[address] [facility] ALT (SGPT) 18 10 - 60 unit/L 08/22/2025 11:[address] [facility] Alkaline Phosphatase 115 42 - 121 unit/L 08/22/2025 11:[address] [facility] Total Protein 5.4(L) 6.0 - 8.0 g/dL 08/22/2025 11:[address] [facility] Albumin 3.2 3.2 - 5.0 g/dL 08/22/2025 11:[address] [facility] Total Bilirubin 0.6 0.0 - 1.4 mg/dL 08/22/2025 11:[address] [facility] Blood Venous blood specimen / Unknown Venipuncture / Unknown 08/22/2025 6:42 AM EST 08/22/2025 9:46 AM EST us Roverto Jurado MD LAB BLOOD ORDERABLES Final Result [facility] [address] [place] [address], documented in this encounter Visit Diagnoses Diagnosis Hypokalemia Hypopotassemia documented in this encounter Care Teams Director Of Primary Relationship Specialty Start Date End Date Mario Berrios MD [address] [place] [address] PCP - General Internal Medicine 04/04/25 documented as of this encounter
--- OUTSIDE RECORDS SUMMARY | 2025-09-07 17:21 | XMS_ITS | Encounter Summary ---
Author Organization [facility] Address [address] [place] [address] Care Team Providers Care Statement Clerk Name Role Phone Mario Berrios MD Primary Care Provider [phone] Encounter Details Date Type Department Care Team (Late st Contact Info) Description 08/20/[address] [facility] - Main Lab [address] [facility] [place] [address] Roverto Jurado MD [address] [place] [address] Hypokalemia; Essential (primary) hypertension Social History Tobacco [...] LAB HEMETOLOGY METHOD 08/21/2025 9:59 AM EST [facility] RBC 3.60(L) 3.80 - 4.80 M/mcL LAB HEMETOLOGY METHOD 08/21/2025 9:59 AM EST [facility] Hemoglobin 10.9(L) 11.5 - 16.0 g/dL LAB HEMETOLOGY METHOD 08/21/2025 9:59 AM EST [facility] Hematocrit 32.7(L) 35.0 - 47.0 % LAB HEMETOLOGY METHOD 08/21/2025 9:59 AM [facility] MCV 90.3 79.0 - 98.0 FL LAB HEMETOLOGY METHOD 08/21/2025 9:59 AM [facility] MCH 30.1 27.0 - 32.0 pcg LAB HEMETOLOGY METHOD 08/21/2025 9:59 AM EST [facility] MCHC 33.3 32.0 - 37.0 g/dL LAB HEMETOLOGY METHOD 08/21/2025 9:59 AM [facility] RDW 13.9 11.0 - 15.0 % LAB HEMETOLOGY METHOD 08/21/2025 9:59 AM [facility] Platelets 341 130 - 400 K/mcL LAB HEMETOLOGY METHOD 08/21/2025 9:59 AM EST [facility] MPV 10.1 7.0 [...] Result [facility] [address] [place] [address], documented in this encounter Visit Diagnoses Diagnosis Hypokalemia Hypopotassemia Essential (primary) hypertension Unspecified essential hypertension documented in this encounter Care Teams Statement Clerk Relationship Specialty Start Date End Date Mario Berrios MD [address] [place] [address] PCP - General Internal Medicine 04/04/25 documented as of this encounter
--- OUTSIDE RECORDS SUMMARY | 2025-09-07 17:21 | XMS_ITS | Encounter Summary ---
Author Organization [employer] Address [address] [place] [address] Care Team Providers Care Boiler House Inspector Name Role Phone Mario Berrios MD Primary Care Provider [phone] Encounter Details Date Type Department Care Team (Late st Contact Info) Description 08/22/2025 Lab Requisition [facility] - Main Lab [address] [place] [address] Roverto Jurado MD [address] [place] [address] Multiple myeloma not having achieved remission (CMS/HCC [...] Digoxin level (08/24/2025 8:31 AM EST) Pathologist [facility] Digoxin Lvl 0.8 0.5 - 2.0 ng/mL 08/24/2025 12:45 PM EST [facility] Blood Venous blood specimen / Unknown Venipuncture / Unknown 08/24/2025 8:31 AM EST 08/24/2025 11:08 AM EST Roverto Jurado MD LAB BLOOD ORDERABLES Final Result [facility] [address] [place] [address], * (ABNORMAL) Basic metabolic panel (08/24/2025 8:31 AM EST) Pathologist [facility] Sodium 135 133 - 145 mmol/L 08/24/2025 1:44 PM EST [facility] Potassium 3.2(L) 3.5 - [...] ORDERABLES Final Result [facility] [address] [place] [address], * Complete blood count (08/24/2025 8:31 AM EST) Pathologist [facility] WBC 5.1 4.8 - 10.8 K/mcL LAB HEMETOLOGY METHOD 08/24/2025 12:40 PM [facility] RBC 3.80 3.80 - 4.80 M/mcL LAB HEMETOLOGY METHOD 08/24/2025 12:40 PM [facility] [...] ORDERABLES Final Result [facility] LAB [address] [place] [address], documented in this encounter Visit Diagnoses Diagnosis Multiple myeloma not having achieved remission ([facility] V24, [facility] V28) Type 2 diabetes mellitus without complications ([facility] V24, [facility] V28) Hyperlipidemia, unspecified Unspecified atrial fibrillation ([facility] V24, [facility] V28) Secondary malignant neoplasm of bone ([facility] V24, [facility] V28) Paroxysmal atrial fibrillation ([facility] V24, [facility] V28) Atrial fibrillation Heart failure, unspecified ([facility] V24, [facility] V28) Heart failure, unspecified documented in this encounter Care Teams Boiler House Inspector Relationship Specialty Start Date End Date Mario Berrios MD [address] [place] [address] PCP - General Internal Medicine 04/04/25 documented as of this encounter
--- OUTSIDE RECORDS SUMMARY | 2025-09-07 17:21 | XMS_ITS | Encounter Summary ---
Author Organization [facility] Address [address] [place] [address] Care Team Providers Care Licensed Club Manager Name Role Phone Mario Berrios MD Primary Care Provider [phone] Encounter Details Date Type Department Care Team (Late st Contact Info) Description 04/22/2025 Lab Requisition [facility] - Main Lab [address] [facility] [place] [address] Mario Beriros MD [address] [place] [phone] Essential (primary) hypertension Social History Tobacco Use [...] LAB CHEMISTRY METHOD 04/23/2025 10:[address] [facility] Potassium 3.7 3.5 - 5.5 mmol/L LAB CHEMISTRY METHOD 04/23/2025 10:[address] [facility] Chloride 95(L) 96 - 110 mmol/L LAB CHEMISTRY METHOD 04/23/2025 10:52 AM [facility] CO2 33(H) 21 - 32 mmol/L LAB CHEMISTRY METHOD 04/23/2025 10:52 AM [facility] Anion Gap 5 3 - 11 LAB CHEMISTRY METHOD 04/23/2025 10:52 AM [facility] Glucose 88 70 - 100 mg/dL LAB CHEMISTRY METHOD 04/23/2025 10:52 AM [facility] BUN 9 5 - 25 mg/dL LAB CHEMISTRY METHOD 04/23/2025 10:52 AM [facility] Creatinine 0.60 0.50 - 1.10 mg/dL LAB CHEMISTRY METHOD 04/23/2025 10:52 AM [facility] eGFR 88 >=60 mL/min/1. 73m2 LAB CHEMISTRY METHOD 04/23/2025 10:52 AM [facility] Comment:Calculation based on the Chronic Kidney Disease Epidemiology Collaboration (CKD-EPI) equation refit without adjustment for race. BUN/Creatinine Ratio 15.0 LAB CHEMISTRY METHOD 04/23/2025 10:52 AM [facility] Calcium 7.4(L) 8.5 - 10.5 mg/dL LAB CHEMISTRY METHOD 04/23/2025 10:52 AM [facility] Blood Venous blood specimen / Unknown Venipuncture / Unknown 04/23/2025 5:52 AM EDT 04/23/2025 9:52 AM EDT us Mario Berrios MD LAB BLOOD ORDERABLES Final Resu lt [facility] [address] [place] [address], * (ABNORMAL) Complete blood count (04/23/2025 5:52 AM EDT) WBC 6.0 4.8 - 10.8 K/mcL LAB HEMETOLOGY METHOD 04/23/2025 10:13 AM [facility] RBC 4.00 3.80 - 4.80 M/mcL LAB HEMETOLOGY METHOD 04/23/2025 10:13 AM [facility] Hemoglobin 12.6 11.5 - 16.0 g/dL LAB HEMETOLOGY METHOD 04/23/2025 10:13 AM [facility] Hematocrit 37.6 35.0 - 47.0 % LAB HEMETOLOGY METHOD 04/23/2025 10:13 AM [facility] MCV 93.5 79.0 - 98.0 FL LAB HEMETOLOGY METHOD 04/23/2025 10:13 AM [facility] MCH 31.3 27.0 - 32.0 pcg LAB HEMETOLOGY METHOD 04/23/2025 10:13 AM [facility] MCHC 33.5 32.0 - 37.0 g/dL LAB HEMETOLOGY METHOD 04/23/2025 10:13 AM [facility] RDW 16.2(H) 11.0 - 15.0 % LAB HEMETOLOGY METHOD 04/23/2025 10:13 AM [facility] Platelets 157 130 - 400 K/mcL LAB HEMETOLOGY METHOD 04/23/2025 10:13 AM [facility] MPV 11.1(H) 7.0 - 11.0 FL LAB HEMETOLOGY METHOD 04/23/2025 10:13 AM [facility] NRBC 0.0 <1.0 % LAB HEMETOLOGY METHOD 04/23/2025 10:13 AM [facility] NRBC Absolute 0.00 <0.10 K/mcL LAB HEMETOLOGY METHOD 04/23/2025 10:13 AM [facility] Blood Venous blood specimen / Unknown Venipuncture / Unknown 04/23/2025 5:52 AM EDT 04/23/2025 9:50 AM EDT Mario Berrios MD LAB BLOOD ORDERABLES Final Resu lt [facility] [address] [place] [address], documented in this encounter Visit Diagnoses Diagnosis Essential (primary) hypertension Unspecified essential hypertension documented in this encounter Care Teams Licensed Club Manager Relationship Specialty Start Date End Date Mario Berrios MD [address] [place] [address] PCP - General Internal Medicine 04/04/25 documented as of this encounter
--- OUTSIDE RECORDS SUMMARY | 2025-09-07 17:22 | XMS_ITS | Encounter Summary ---
Author Organization [employer] Address [address] [place] [address] Care Team Providers Care Roller Presser Operator Name Role Phone Mario Berrios MD Primary Care Provider [phone] Encounter Details Date Type Department Care Team (Late st Contact Info) Description 09/04/2025 Lab Requisition [facility] - Main Lab [address] [facility] [place] [address] Roverto Jurado MD [address] [place] [address] Multiple myeloma not having achieved remission (CMS/HCC V24, CMS/HCC V28); Type 2 diabetes mellitus without complications (CMS/HCC V24, CMS/HCC V28); Hyperlipidemia, unspecified; Unspecified atrial fibrillation (CMS/HCC V24, CMS/HCC V28) Social History Tobacco [...] Associated Diagnosis Comments COMPLETE BLOOD COUNT Routine 09/07/2025 7:32 AM EST Multiple myeloma not having achieved remission (CMS/HCC V24, CMS/HCC V28) Type 2 diabetes mellitus without complications (CMS/HCC V24, CMS/HCC V28) Hyperlipidemia, unspecified Unspecified atrial fibrillation (CMS/HCC V24, CMS/HCC V28) BASIC METABOLIC PANEL Routine 09/07/2025 7:32 AM EST Multiple myeloma not having achieved remission (CMS/HCC V24, CMS/HCC V28) Type 2 diabetes mellitus without complications (CMS/HCC V24, CMS/HCC V28) Hyperlipidemia, unspecified Unspecified atrial fibrillation ([facility] V24, [facility] V28) documented in this encounter Results * (ABNORMAL) Basic metabolic panel (09/07/2025 7:32 AM EST) Sodium 132(L) 133 - 145 mmol/L 09/07/2025 1:00 PM [facility] Potassium 4.5 3.5 - 5.5 mmol/L 09/07/2025 1:00 PM [facility] Chloride 94(L) 96 - 110 mmol/L 09/07/2025 1:00 PM [facility] CO2 30 21 - 32 mmol/L 09/07/2025 1:00 PM [facility] Anion Gap 8 3 - 11 09/07/2025 1:00 PM [facility] Glucose 90 70 - 100 mg/dL 09/07/2025 1:00 PM [facility] BUN 7 5 - 25 mg/dL 09/07/2025 1:00 PM [facility] Creatinine 0.54 0.50 - 1.10 mg/dL 09/07/2025 1:00 PM [facility] eGFR 90 >=60 mL/min/1. 73m2 09/07/2025 1:00 PM [facility] Comment:Calculation based on the Chronic Kidney Disease Epidemiology Collaboration (CKD-EPI) equation refit without adjustment for race. BUN/Creatinine Ratio 13.0 09/07/2025 1:00 PM [facility] Calcium 8.0(L) 8.5 - 10.5 mg/dL 09/07/2025 1:00 PM [facility] Blood Venous blood specimen / Unknown Venipuncture / Unknown 09/07/2025 7:32 AM EST 09/07/2025 11:36 AM EST us Roverto Jurado MD LAB BLOOD ORDERABLES Final Result [facility] [address] [place] [address], * Complete blood count (09/07/2025 7:32 AM EST) WBC 6.2 4.8 - 10.8 K/mcL LAB HEMETOLOGY METHOD 09/07/2025 1:41 PM [facility] RBC 3.90 3.80 - 4.80 M/mcL LAB HEMETOLOGY METHOD 09/07/2025 1:41 PM [facility] Hemoglobin 11.9 11.5 - 16.0 g/dL LAB HEMETOLOGY METHOD 09/07/2025 1:41 PM [facility] Hematocrit 36.1 35.0 - 47.0 % LAB HEMETOLOGY METHOD 09/07/2025 1:41 PM [facility] MCV 91.6 79.0 - 98.0 FL LAB HEMETOLOGY METHOD 09/07/2025 1:41 PM [facility] MCH 30.2 27.0 - 32.0 pcg LAB HEMETOLOGY METHOD 09/07/2025 1:41 PM [facility] MCHC 33.0 32.0 - 37.0 g/dL LAB HEMETOLOGY METHOD 09/07/2025 1:41 PM [facility] RDW 14.5 11.0 - 15.0 % LAB HEMETOLOGY METHOD 09/07/2025 1:41 PM [facility] Platelets 242 130 - 400 K/mcL LAB HEMETOLOGY METHOD 09/07/2025 1:41 PM [facility] MPV 10.7 7.0 - 11.0 FL LAB HEMETOLOGY METHOD 09/07/2025 1:41 PM EST [facility] NRBC 0.0 <1.0 % LAB HEMETOLOGY METHOD 09/07/2025 1:41 PM EST [facility] NRBC Absolute 0.00 <0.10 K/mcL LAB HEMETOLOGY METHOD 09/07/2025 1:41 PM EST [facility] Blood Venous blood specimen / Unknown Venipuncture / Unknown 09/07/2025 7:32 AM EST 09/07/2025 11:36 AM EST us Roverto Jurado MD LAB BLOOD ORDERABLES Final Result [facility] [address] [place] [address], documented in this encounter Visit Diagnoses Diagnosis Multiple myeloma not having achieved remission (CMS/HCC V24, [facility] V28) Type 2 diabetes mellitus without complications ([facility]/HCC V24, [facility] V28) Hyperlipidemia, unspecified Unspecified atrial fibrillation ([facility] V24, [facility] V28) documented in this encounter Care Teams Roller Presser Operator Relationship Specialty Start Date End Date Mario Berrios MD [address] [place] [address] PCP - General Internal Medicine 04/04/25 documented as of this encounter
--- OUTSIDE RECORDS SUMMARY | 2025-09-07 17:22 | XMS_ITS | Encounter Summary ---
Author Organization [facility] Address [address] [place] [address] Care Team Providers Care Wine Consultant Name Role Phone Mario Berrios MD Primary Care Provider [phone] Encounter Details Date Type Department Care Team (Late st Contact Info) Description 04/17/2025 Lab Requisition [facility] - Main Lab [address] [facility] [place] [address] Mario Berrios MD [address] [place] [address] [phone] Essential (primary) hypertension Social History Tobacco Use [...] EDT) WBC 6.2 4.8 - 10.8 K/[facility] LAB HEMETOLOGY METHOD 04/20/2025 11:57 AM EDT [facility] RBC 4.00 3.80 - 4.80 M/[facility] LAB HEMETOLOGY METHOD 04/20/2025 11:57 AM EDT [facility] Hemoglobin 12.5 11.5 - 16.0 g/dL LAB HEMETOLOGY METHOD 04/20/2025 11:57 AM EDT [facility] Hematocrit 37.7 35.0 - 47.0 % LAB HEMETOLOGY METHOD 04/20/2025 11:57 AM EDT [facility] MCV 94.3 79.0 - 98.0 FL LAB HEMETOLOGY METHOD 04/20/2025 11:57 AM EDT [facility] MCH 31.3 27.0 - 32.0 pcg LAB HEMETOLOGY METHOD 04/20/2025 11:57 AM EDT [facility] MCHC 33.2 32.0 - 37.0 g/dL LAB HEMETOLOGY METHOD [facility] RDW 16.7(H) 11.0 - 15.0 % LAB HEMETOLOGY METHOD 04/20/2025 11:57 AM EDT [facility] Platelets 153 130 - 400 K/mcL LAB HEMETOLOGY METHOD 04/20/2025 11:57 AM EDT [facility] MPV 11.5(H) 7.0 - 11.0 FL LAB HEMETOLOGY METHOD 04/20/2025 [facility] NRBC 0.0 <1.0 % LAB HEMETOLOGY METHOD 04/20/2025 11:57 AM EDT [facility] NRBC Absolute 0.00 <0.10 K/mcL LAB HEMETOLOGY METHOD 04/20[facility]2025 11[facility] Blood Venous blood specimen / Unknown Venipuncture / Unknown 04/20/2025 5:25 AM EDT 04/20/2025 10:56 AM EDT us Mario Berrios MD LAB BLOOD ORDERABLES Final Resu lt [facility] [address] [place] [address], * (ABNORMAL) Comprehensive metabolic panel (04/20/2025 5:25 AM EDT) Sodium 134 133 - 145 mmol/L LAB CHEMISTRY METHOD 04/20/2025 1[facility] Potassium 4.1 3.5 - 5.5 mmol/L LAB CHEMISTRY METHOD 04/20/2025 1:10 PM T [facility] Comment:Hemolysis present Chloride 96 96 - 110 mmol/L LAB CHEMISTRY METHOD 04/20/2025 1:10 PM [facility] CO2 30 21 - 32 mmol/L LAB CHEMISTRY METHOD 04/20/2025 1:10 PM [facility] Anion Gap 8 3 - 11 LAB CHEMISTRY METHOD 04/20/2025 1:10 PM [facility] Glucose 84 70 - 100 mg/dL LAB CHEMISTRY METHOD 04/20/2025 1:10 PM [facility] BUN 14 5 - 25 mg/dL LAB CHEMISTRY METHOD 04/20/2025 1:10 PM [facility] Creatinine 0.56 0.50 - 1.10 mg/dL LAB CHEMISTRY METHOD 04/20/2025 1[facility] eGFR 90 >=60 mL/min/1. 73m2 LAB CHEMISTRY METHOD 04/20/2025 1:10 PM [facility] Comment:Calculation based on the Chronic Kidney Disease Epidemiology Collaboration (CKD-EPI) equation refit without adjustment for race. BUN/Creatinine Ratio 25.0 LAB CHEMISTRY METHOD 04/20/2025 1:10 PM [facility] Calcium 8.1(L) 8.5 - 10.5 mg/dL LAB CHEMISTRY METHOD 04/20/2025 1:10 PM [facility] AST (SGOT) 35 10 - 42 unit/L LAB CHEMISTRY METHOD 04/20/2025 1:10 PM EDT [facility] Comment:Hemolysis present ALT (SGPT) 69(H) 10 - 60 unit/L LAB CHEMISTRY METHOD 04/20/2025 1:10 PM EDT [facility] Alkaline Phosphatase 156(H) 42 - 121 unit/L LAB CHEMISTRY METHOD 04/20/2025 1:10 PM EDT [facility] Total Protein 5.3(L) 6.0 - 8.0 g/dL LAB CHEMISTRY METHOD 04/20/2025 1:10 PM EDT [facility] Albumin 2.7(L) 3.2 - 5.0 g/dL LAB CHEMISTRY METHOD 04/20/2025 1:10 PM EDT [facility] Total Bilirubin 2.1(H) 0.0 - 1.4 mg/dL LAB CHEMISTRY METHOD 04/20/2025 1:10 PM EDT [facility] Comment:Results verified by repeat testing Blood Venous blood specimen / Unknown Venipuncture / Unknown 04/20/2025 5:25 AM EDT 04/20/2025 12:06 PM EDT Mario Berrios MD LAB BLOOD ORDERABLES Final Resu lt [facility] [address] [place] [address], documented in this encounter Visit Diagnoses Diagnosis Essential (primary) hypertension Unspecified essential hypertension documented in this encounter Care Teams Wine Consultant Relationship Specialty Start Date End Date Mario Berrios MD [address] [place] [phone] PCP - General Internal Medicine 04/04/25 documented as of this encounter
--- OUTSIDE RECORDS SUMMARY | 2025-09-07 17:22 | XMS_ITS | Encounter Summary ---
Author Organization [facility] Address [address] [place] [address] Care Team Providers Care Crystal Inspector Name Role Phone Mario Berrios MD Primary Care Provider [phone] Encounter Details Date Type Department Care Team (Late st Contact Info) Description 08/29/2025 Lab Requisition [facility] - Main Lab [address] [place] [address] Roverto Jurado MD [address] [place] [address] Multiple myeloma not having achieved remission (CMS/HCC [...] Associated Diagnosis Comments COMPLETE BLOOD COUNT Routine 08/31/2025 8:14 AM EST Multiple myeloma not having achieved remission (CMS/HCC V24, CMS/HCC V28) Type 2 diabetes mellitus without complications (CMS/HCC V24, CMS/HCC V28) Hyperlipidemia, unspecified Unspecified atrial fibrillation (CMS/HCC V24, CMS/HCC V28) BASIC METABOLIC PANEL Routine 08/31/2025 8:14 AM EST Multiple myeloma not having achieved remission (CMS/HCC V24, CMS/HCC V28) Type 2 diabetes mellitus without complications (CMS/HCC V24, CMS/HCC V28) Hyperlipidemia, unspecified Unspecified atrial fibrillation ([facility] V24, [facility] V28) documented in this encounter Results * (ABNORMAL) Basic metabolic panel (08/31/2025 8:14 AM EST) Sodium 131(L) 133 - 145 mmol/L 08/31/2025 12:42 PM [facility] Potassium 4.4 3.5 - 5.5 mmol/L 08/31/2025 12:42 PM [facility] Chloride 92(L) 96 - 110 mmol/L 08/31/2025 12:42 PM [facility] CO2 30 21 - 32 mmol/L 08/31/2025 12:42 PM [facility] Anion Gap 9 3 - 11 08/31/2025 12:42 PM [facility] Glucose 85 70 - 100 mg/dL 08/31/2025 12:42 PM [facility] BUN 6 5 - 25 mg/dL 08/31/2025 12:42 PM [facility] Creatinine 0.55 0.50 - 1.10 mg/dL 08/31/2025 12:42 PM [facility] eGFR 90 >=60 mL/min/1. 73m2 08/31/2025 12:42 PM [facility] Comment:Calculation based on the Chronic Kidney Disease Epidemiology Collaboration (CKD-EPI) equation refit without adjustment for race. BUN/Creatinine Ratio 10.9 08/31/2025 12:42 PM [facility] Calcium 8.4(L) 8.5 - 10.5 mg/dL 08/31/2025 12:42 PM [facility] Blood Venous blood specimen / Unknown Venipuncture / Unknown 08/31/2025 8:14 AM EST 08/31/2025 11:09 AM EST us Roverto Jurado MD LAB BLOOD ORDERABLES Final Result [facility] [address] [place] [address], * Complete blood count (08/31/2025 8:14 AM EST) WBC 6.7 4.8 - 10.8 K/mcL LAB HEMETOLOGY METHOD 08/31/2025 12:25 PM [facility] RBC 4.10 3.80 - 4.80 M/mcL LAB HEMETOLOGY METHOD 08/31/2025 12:25 PM [facility] Hemoglobin 12.4 11.5 - 16.0 g/dL LAB HEMETOLOGY METHOD 08/31/2025 12:25 PM [facility] Hematocrit 38.0 35.0 - 47.0 % LAB HEMETOLOGY METHOD 08/31/2025 12:25 PM [facility] MCV 91.8 79.0 - 98.0 FL LAB HEMETOLOGY METHOD 08/31/2025 12:25 PM [facility] MCH 30.0 27.0 - 32.0 pcg LAB HEMETOLOGY METHOD 08/31/2025 12:25 PM [facility] MCHC 32.6 32.0 - 37.0 g/dL LAB HEMETOLOGY METHOD 08/31/2025 12:25 PM [facility] RDW 14.3 11.0 - 15.0 % LAB HEMETOLOGY METHOD 08/31/2025 12:25 PM [facility] Platelets 246 130 - 400 K/mcL LAB HEMETOLOGY METHOD 08/31/2025 12:25 PM [facility] MPV 10.6 7.0 - 11.0 FL LAB HEMETOLOGY METHOD 08/31/2025 12:[address] [facility] NRBC 0.0 <1.0 % LAB HEMETOLOGY METHOD 08/31/2025 12:[address] [facility] NRBC Absolute 0.00 <0.10 K/mcL LAB HEMETOLOGY METHOD 08/31/2025 12:[address] [facility] Blood Venous blood specimen / Unknown Venipuncture / Unknown 08/31/2025 8:14 AM EST 08/31/2025 11:09 AM EST us Roverto Jurado MD LAB BLOOD ORDERABLES Final Result [facility] [address] [place] [address], documented in this encounter Visit Diagnoses Diagnosis Multiple myeloma not having achieved remission (CMS/HCC V24, [facility] V28) Type 2 diabetes mellitus without complications ([facility]/HCC V24, [facility] V28) Hyperlipidemia, unspecified Unspecified atrial fibrillation ([facility] V24, [facility] V28) documented in this encounter Care Teams Crystal Inspector Relationship Specialty Start Date End Date Mario Berrios MD [address] [place] [address] PCP - General Internal Medicine 04/04/25 documented as of this encounter
--- OUTSIDE RECORDS SUMMARY | 2025-09-07 17:22 | XMS_ITS | Encounter Summary ---
Author Organization [facility] Address [address] [place] [phone] Phone Care Team Providers Care Counter Professional Name Role Phone Pcp, Unknown Primary Care Provider Unavailabl e Encounter Details Date Type Department Care Team (Late st Contact Info) Description 10/01/2024 Procedure Pass [facility] Endoscopy Admitting Dept Virtual Department [address] [place] [address] Social History Tobacco Use Types Packs/Day Years [...] on filedocumented in this encounter Care Teams Counter Professional Relationship Specialty Start Date End Date Pcp, Unknown PCP - General 08/05/24 documented as of this encounter Additional Source Comments The information contained in this document represents components of the legal health record. It is not the complete legal health record.[facility]
--- OUTSIDE RECORDS SUMMARY | 2025-09-07 17:22 | XMS_ITS | Encounter Summary ---
Author Organization [facility] Address [address] [place] [address] Care Team Providers Care Try Out Person Name Role Phone Mario Berrios MD Primary Care Provider [phone] Encounter Details Date Type Department Care Team (Late st Contact Info) Description 05/09/2025 Lab Requisition [facility] - Main Lab [address] [facility] [place] [address] Mario Berrios MD [address] [place] [address] Essential (primary) hypertension Social History [...] hypertension documented in this encounter Care Teams Try Out Person Relationship Specialty Start Date End Date Mario Berrios MD [address] [place] [address] PCP - General Internal Medicine 04/04/25 documented as of this encounter
--- OUTSIDE RECORDS SUMMARY | 2025-09-07 17:22 | XMS_ITS | Encounter Summary ---
Author Organization [facility] Address [address] [place] [address] Care Team Providers Care Internet Marketing Intern Name Role Phone Mario Berrios MD Primary Care Provider [phone] Encounter Details Date Type Department Care Team (Late st Contact Info) Description 09/03/2025 Lab Requisition [facility] - Main Lab [address] [facility] [place] [address] Roverto Jurado MD [address] [place] [address] Diverticulitis of small intestine with perforation and abscess without bleeding Social History Tobacco Use Types Packs/Day Years Used Date Smoking Tobacco: Never Assessed Comments Unknown Sex and Gender Information Value Date Recorded Sex Assigned at Not on file Legal Sex Female 11:01 AM EDT Gender Identity Not on file Sexual Orientation Not on file documented as of this encounter Plan of Treatment Pending Results Name Type Priority Associated Diagnoses Date /Time Culture blood Microbiology Routine Diverticulitis of small intestine with perforation and abscess without bleeding 09/03/2025 5:26 AM EST documented as of this encounter Procedures Procedure Name Priority Date/Time Associated Diagnosis Comments CULTURE BLOOD Routine 09/03/2025 5:26 AM EST Diverticulitis of small intestine with perforation and abscess without bleeding documented in this encounter Visit Diagnoses Diagnosis Diverticulitis of small intestine with perforation and abscess without bleeding documented in this encounter Care Teams Internet Marketing Intern Relationship Specialty Start Date End Date Mario Berrios MD [address] [place] [phone] PCP - General Internal Medicine 04/04/25 documented as of this encounter
--- OUTSIDE RECORDS SUMMARY | 2025-09-07 17:22 | XMS_ITS | Clinical Summary ---
Author Organization [facility] Address [address] [place] [address] Phone Care Team Providers Care Swing Manager Name Role Phone Mario Berrios MD Primary Care Provider [phone] Encounters Date Type Department Care Team Description 09/04/2025 Lab Requisition [facility] [address] [place] [phone] Roverto Jurado MD Multiple myeloma not having achieved remission ([facility] V24, [facility] V28); Type 2 diabetes mellitus without complications ([facility] V24, [facility] V28); Hyperlipidemia, unspecified; Unspecified atrial fibrillation ([facility] V24, [facility] V28) 09/04/2025 Lab Requisition [facility] [address] [place] [phone] Roverto Jurado MD Diverticulitis of small intestine with perforation and abscess without bleeding; Hyperlipidemia, unspecified; Hypo-osmolality and hyponatremia; Type 2 diabetes mellitus without complications ([facility] V24, [facility] V28); Abnormal results of thyroid function studies; Vitamin D deficiency, unspecified; Drug-induced folate deficiency anemia 09/03/2025 Lab Requisition [facility] [address] [place] [phone] Roverto Jurado MD Diverticulitis of small intestine with perforation and abscess without bleeding 09/03/2025 Lab Requisition [facility] [address] [place] [phone] Roverto Jurado MD Diverticulitis of small intestine with perforation and abscess without bleeding 08/29/2025 Lab Requisition [facility] [address] [place] [phone] Roverto Jurado MD Multiple myeloma not having achieved remission ([facility]/HCC V24, [facility]/HCC V28); Type 2 diabetes mellitus without complications ([facility]/HCC V24, [facility]/HCC V28); Hyperlipidemia, unspecified; Unspecified atrial fibrillation ([facility]/HCC V24, CMS/HCC V28) 08/22/2025 Lab Requisition [facility] [address] [place] [phone] Roverto Jurado MD Multiple myeloma not having achieved remission (CMS/HCC V24, CMS/HCC V28); Type 2 diabetes mellitus without complications (CMS/HCC V24, CMS/HCC V28); Hyperlipidemia, unspecified; Unspecified atrial fibrillation (CMS/HCC V24, CMS/HCC V28); Secondary malignant neoplasm of bone (CMS/HCC V24, CMS/HCC V28); Paroxysmal atrial fibrillation ([facility]/HCC V24, [facility]/HCC V28); Heart failure, unspecified ([facility]/HCC V24, [facility]/HCC V28) 08/22/2025 Lab Requisition [facility] [address] [place] [phone] Roverto Jurado MD Hypokalemia 08/20/2025 Lab Requisition [facility] [address] [place] [phone] Roverto Jurado MD Hypokalemia; Essential (primary) hypertension 08/19/2025 Lab Requisition [facility] [address] [place] [phone] Roverto Jurado MD Malignant (primary) neoplasm, unspecified ([facility]/HCC V24, [facility] V28); Unspecified atrial fibrillation (CMS/HCC V24, CMS/HCC V28); Type 2 diabetes mellitus without complications ([facility]/HCC V24, CMS/HCC V28) 08/18/2025 Lab Requisition [facility] [address] [place] [phone] Roverto Jurado MD Unspecified atrial fibrillation ([facility] V24, [facility] V28); Type 2 diabetes mellitus without complications ([facility] V24, [facility] V28) from Last 3 Months Social History [...] 08/18/2025 Diabetes: Annual GFR (Glomerular Filtration Rate) 08/31/2026 09/07/2025, 09/04/2025, 08/31/2025, Additional history exists Hypertension/CHF/CAD Annual BMP Blood Test 08/31/2026 09/07/2025, 09/04/2025, 08/31/2025, Additional history exists HIB Vaccines Aged Out [...] Procedure Name Priority Date/Time Associated Diagnosis Comments BASIC METABOLIC PANEL Routine 09/07/2025 7:32 AM EST Multiple myeloma not having achieved remission (CMS/HCC V24, CMS/HCC V28) Type 2 diabetes mellitus without complications (CMS/HCC V24, CMS/HCC V28) Hyperlipidemia, unspecified Unspecified atrial fibrillation (CMS/HCC V24, CMS/HCC V28) COMPLETE BLOOD COUNT Routine 09/07/2025 7:32 AM EST Multiple myeloma not having achieved remission (CMS/HCC V24, CMS/HCC V28) Type 2 diabetes mellitus without complications (CMS/HCC V24, CMS/HCC V28) Hyperlipidemia, unspecified Unspecified atrial fibrillation (CMS/HCC V24, CMS/HCC V28) FOLATE Routine 09/04/2025 9:38 AM EST Diverticulitis of small intestine with perforation and abscess without bleeding Hyperlipidemia, unspecified Hypo-osmolality and hyponatremia Type 2 diabetes mellitus without complications (CMS/HCC V24, CMS/HCC V28) Abnormal results of thyroid function studies Vitamin D deficiency, unspecified Drug-induced folate deficiency anemia VITAMIN B12 Routine 09/04/2025 9:38 AM EST Diverticulitis of small intestine with perforation and abscess without bleeding Hyperlipidemia, unspecified Hypo-osmolality and hyponatremia Type 2 diabetes mellitus without complications (CMS/HCC V24, CMS/HCC V28) Abnormal results of thyroid function studies Vitamin D deficiency, unspecified Drug-induced folate deficiency anemia THYROID STIMULATING HORMONE Routine 09/04/2025 9:38 AM EST Diverticulitis of small intestine with perforation and abscess without bleeding Hyperlipidemia, unspecified Hypo-osmolality and hyponatremia Type 2 diabetes mellitus without complications (CMS/HCC V24, CMS/HCC V28) Abnormal results of thyroid function studies Vitamin D deficiency, unspecified Drug-induced folate deficiency anemia COMPREHENSIVE METABOLIC PANEL Routine 09/04/2025 9:38 AM EST Diverticulitis of small intestine with perforation and abscess without bleeding Hyperlipidemia, unspecified Hypo-osmolality and hyponatremia Type 2 diabetes mellitus without complications (CMS/HCC V24, CMS/HCC V28) Abnormal results of thyroid function studies Vitamin D deficiency, unspecified Drug-induced folate deficiency anemia COMPLETE BLOOD COUNT Routine 09/04/2025 9:38 AM EST Diverticulitis of small intestine with perforation and abscess without bleeding Hyperlipidemia, unspecified Hypo-osmolality and hyponatremia Type 2 diabetes mellitus without complications (CMS/HCC V24, CMS/HCC V28) Abnormal results of thyroid function studies Vitamin D deficiency, unspecified Drug-induced folate deficiency anemia CULTURE BLOOD Routine 09/03/2025 5:26 AM EST Diverticulitis of small intestine with perforation and abscess without bleeding CULTURE BLOOD Routine 09/03/2025 5:20 AM EST Diverticulitis of small intestine with perforation and abscess without bleeding BASIC METABOLIC PANEL Routine 08/31/2025 8:14 AM EST Multiple myeloma not having achieved remission (CMS/HCC V24, CMS/HCC V28) Type 2 diabetes mellitus without complications (CMS/HCC V24, CMS/HCC V28) Hyperlipidemia, unspecified Unspecified atrial fibrillation (CMS/HCC V24, CMS/HCC V28) COMPLETE BLOOD COUNT Routine 08/31/2025 8:14 AM [...] 3 Months Results * Complete blood count (09/07/2025 7:32 AM EST) Only the most recent of6 resultswithin the time period is included. WBC 6.2 4.8 - 10.8 K/mcL LAB HEMETOLOGY METHOD 09/07/2025 1:41 PM [facility] RBC 3.90 3.80 - 4.80 M/mcL LAB HEMETOLOGY METHOD 09/07/2025 1:41 PM [facility] Hemoglobin 11.9 11.5 - 16.0 g/dL LAB HEMETOLOGY METHOD 09/07/2025 1:41 PM [facility] Hematocrit 36.1 35.0 - 47.0 % LAB HEMETOLOGY METHOD 09/07/2025 1:41 PM [facility] MCV 91.6 79.0 - 98.0 FL LAB HEMETOLOGY METHOD 09/07/2025 1:41 PM [facility] MCH 30.2 27.0 - 32.0 pcg LAB HEMETOLOGY METHOD 09/07/2025 1:41 PM [facility] MCHC 33.0 32.0 - 37.0 g/dL LAB HEMETOLOGY METHOD 09/07/2025 1:41 PM [facility] RDW 14.5 11.0 - 15.0 % LAB HEMETOLOGY METHOD 09/07/2025 1:41 PM [facility] Platelets 242 130 - 400 K/mcL LAB HEMETOLOGY METHOD 09/07/2025 1:41 PM [facility] MPV 10.7 7.0 - 11.0 FL LAB HEMETOLOGY METHOD 09/07/2025 1:41 PM [facility] NRBC 0.0 <1.0 % LAB HEMETOLOGY METHOD 09/07/2025 1:41 PM [facility] NRBC Absolute 0.00 <0.10 K/mcL LAB HEMETOLOGY METHOD 09/07/2025 1:41 PM [facility] Blood Venous blood specimen / Unknown Venipuncture / Unknown 09/07/2025 7:32 AM EST 09/07/2025 11:36 AM EST us Roverto Jurado MD LAB BLOOD ORDERABLES Final Result [facility] [address] [place] [address], * (ABNORMAL) Basic metabolic panel (09/07/2025 7:32 AM EST) Only the most recent of3 resultswithin the time period is included. Sodium 132(L) 133 - 145 mmol/L 09/07/2025 1:00 PM [facility] Potassium 4.5 3.5 - 5.5 mmol/L 09/07/2025 1:00 PM [facility] Chloride 94(L) 96 - 110 mmol/L 09/07/2025 1:00 PM [facility] CO2 30 21 - 32 mmol/L 09/07/2025 1:00 PM [facility] Anion Gap 8 3 - 11 09/07/2025 1:00 PM [facility] Glucose 90 70 - 100 mg/dL 09/07/2025 1:00 PM [facility] BUN 7 5 - 25 mg/dL 09/07/2025 1:00 PM [facility] Creatinine 0.54 0.50 - 1.10 mg/dL 09/07/2025 1:00 PM [facility] eGFR 90 >=60 mL/min/1. 73m2 09/07/2025 1:00 PM [facility] Comment:Calculation based on the Chronic Kidney Disease Epidemiology Collaboration (CKD-EPI) equation refit without adjustment for race. BUN/Creatinine Ratio 13.0 09/07/2025 1:00 PM [facility] Calcium 8.0(L) 8.5 - 10.5 mg/dL 09/07/2025 1:00 PM [facility] Blood Venous blood specimen / Unknown Venipuncture / Unknown 09/07/2025 7:32 AM EST 09/07/2025 11:36 AM EST us Roverto Jurado MD LAB BLOOD ORDERABLES Final Result Performing Organization Address [facility]/State/ZIP Co de Phone Number [facility] [address] [place] [address], * Thyroid stimulating hormone (09/04/2025 9:38 AM EST) TSH 1.06 0.40 - 4.00 mcIU/mL 09/04/2025 1:01 PM [facility] Blood Venous blood specimen / Unknown Venipuncture / Unknown 09/04/2025 9:38 AM EST 09/04/2025 10:59 AM EST us Roverto Jurado MD LAB BLOOD ORDERABLES Final Result Performing Organization Address City/[facility]/ZIP Co de Phone Number [facility] [address] [place] [address], [place] [phone] * Folate (09/04/2025 9:38 AM EST) [facility] Folate 14.4 >=5.4 ng/ml 09/04/2025 1:[address] [facility] Blood Venous blood specimen / Unknown Venipuncture / Unknown 09/04/2025 9:38 AM EST 09/04/2025 10:[address] [facility] - 09/04/2025 1:01 PM EST Over the counter supplements containing high doses of biotin may interfere with this assay. If interference is suspected, patients shoud be retested after refraining from biotin supplements for 72 hours. Roverto Jurado MD LAB BLOOD ORDERABLES Final Result Performing Organization Address [facility]/ZIP Co de Phone Number [facility] [address] [place] [address], [place] [phone] * Vitamin B12 (09/04/2025 9:38 AM EST) [facility] Vitamin B-12 463 211 - 911 pcg/mL 09/04/2025 1:[address] [facility] Blood Venous blood specimen / Unknown Venipuncture / Unknown 09/04/2025 9:38 AM EST 09/04/2025 10:59 AM EST us Roverto Jurado MD LAB BLOOD ORDERABLES Final Result Performing Organization Address [facility]/ZIP Co de Phone Number [facility] [address] [place] [address], [place] [phone] * (ABNORMAL) Comprehensive metabolic panel (09/04/2025 9:38 AM EST) Only the most recent of3 resultswithin the time period is included. [facility] Sodium 132(L) 133 - 145 mmol/L 09/04/2025 12:34 PM [facility] Potassium 4.4 3.5 - 5.5 mmol/L 09/04/2025 12:34 PM [facility] Chloride 93(L) 96 - 110 mmol/L 09/04/2025 12:34 PM [facility] CO2 30 21 - 32 mmol/L 09/04/2025 12:34 PM [facility] Anion Gap 9 3 - 11 09/04/2025 12:34 PM [facility] Glucose 107(H) 70 - 100 mg/dL 09/04/2025 12:34 PM [facility] BUN 8 5 - 25 mg/dL 09/04/2025 12:34 PM [facility] Creatinine 0.64 0.50 - 1.10 mg/dL 09/04/2025 12:34 PM [facility] eGFR 87 >=60 mL/min/1. 73m2 09/04/2025 12:34 PM [facility] Comment:Calculation based on the Chronic Kidney Disease Epidemiology Collaboration (CKD-EPI) equation refit without adjustment for race. BUN/Creatinine Ratio 12.5 09/04/2025 12:34 PM [facility] Calcium 9.3 8.5 - 10.5 mg/dL 09/04/2025 12:34 PM [facility] AST (SGOT) 19 10 - 42 unit/L 09/04/2025 12:34 PM [facility] ALT (SGPT) 15 10 - 60 unit/L 09/04/2025 12:34 PM [facility] Alkaline Phosphatase 112 42 - 121 unit/L 09/04/2025 12:34 PM [facility] Total Protein 7.5 6.0 - 8.0 g/dL 09/04/2025 12:[address] [facility] Albumin 4.1 3.2 - 5.0 g/dL 09/04/2025 12:34 PM [facility] Total Bilirubin 1.1 0.0 - 1.4 mg/dL 09/04/2025 12:34 PM [facility] Blood Venous blood specimen / Unknown Venipuncture / Unknown 09/04/2025 9:38 AM EST 09/04/2025 10:59 AM EST Roverto Jurado MD LAB BLOOD ORDERABLES Final Result [facility] [address] [place] [address], [place] [phone] * Digoxin level (08/24/2025 8:31 AM EST) Digoxin Lvl 0.8 0.5 - 2.0 ng/mL 08/24/2025 12:45 PM [facility] Blood Venous blood specimen / Unknown Venipuncture / Unknown 08/24/2025 8:31 AM EST 08/24/2025 11:08 AM EST us Roverto Jurado MD LAB BLOOD ORDERABLES Final Result [facility] [address] [place] [address], [place] [phone] * SST tube (08/19/2025 6:01 AM EST) Extra Tube Hold for add-ons. 08/19/2025 12:[address] [facility] Comment:Auto resulted. Blood Venous blood specimen / Unknown Venipuncture / Unknown 08/19/2025 6:01 AM EST 08/19/2025 10:45 AM EST Roverto Jurado MD LAB BLOOD ORDERABLES Final Result [facility] [address] [place] [address], [place] [phone] * (ABNORMAL) Hemoglobin A1c (08/18/2025 5:47 AM EST) Hemoglobin A1C 7.0(H) <6.5 % LAB CHEMISTRY METHOD 08/18/2025 2:[address] [facility] Mean Bld Glu Estim. 154 mg/dL LAB CHEMISTRY METHOD 08/18/2025 2:[address] [facility] Blood Venous blood specimen / Unknown Venipuncture / Unknown 08/18/2025 5:47 AM EST 08/18/2025 10:57 AM EST Roverto Jurado MD LAB BLOOD ORDERABLES Final Result [facility] [address] [place] [address], [place] [phone] from Last 3 Months Insurance MEDICARE [facility] [employer] MED[employer] Care Teams Swing Manager Relationship Specialty Start Date End Date Mario Berrios MD [address] [place] [phone] PCP - General Internal Medicine 04/04/25
--- OUTSIDE RECORDS SUMMARY | 2025-09-07 17:22 | XMS_ITS | Encounter Summary ---
Author Organization [facility] Address [address] [place] [address] Care Team Providers Care Herb Counselor Name Role Phone Mario Berrios MD Primary Care Provider [phone] Encounter Details Date Type Department Care Team (Late st Contact Info) Description 05/03/2025 Lab Requisition [facility] [address] [facility] [employer] [place] [address] Mario Berrios MD [address] [place] [phone] Essential (primary) hypertension Social History Tobacco Use [...] WBC 6.1 4.8 - 10.8 K/[facility] LAB HEMETOLOGY METHOD 05/04/2025 11:11 AM EDT [facility] RBC 4.00 3.80 - 4.80 M/[facility] LAB HEMETOLOGY METHOD 05/04/2025 11:11 AM EDT [facility] Hemoglobin 12.3 11.5 - 16.0 g/dL LAB HEMETOLOGY METHOD 05/04/2025 11:11 AM EDT [facility] Hematocrit 36.4 35.0 - 47.0 % LAB HEMETOLOGY METHOD 05/04/2025 11:11 AM EDT [facility] MCV 91.9 79.0 - 98.0 FL LAB HEMETOLOGY METHOD 05/04/2025 11:11 AM EDT [facility] MCH 31.1 27.0 - 32.0 pcg LAB HEMETOLOGY METHOD 05/04/2025 11:11 AM EDT [facility] MCHC 33.8 32.0 - 37.0 g/dL LAB HEMETOLOGY METHOD 05/04/2025 11:11 AM [facility] RDW 15.1(H) 11.0 - 15.0 % LAB HEMETOLOGY METHOD 05/04/2025 11:11 AM EDT [facility] Platelets 204 130 - 400 K/mcL LAB HEMETOLOGY METHOD 05/04/2025 11:11 AM EDT [facility] MPV 10.3 7.0 - 11.0 FL LAB HEMETOLOGY [facility] NR[facility] 0.0 <1.0 % LAB HEMETOLOGY METHOD 05/04/2025 11:11 AM EDT [facility] NRBC Absolute 0.00 <0.10 K/mcL LAB HEMETOLOGY METHOD 05/04/2025 11:11 AM EDT [facility] Blood Venous blood specimen / Unknown Venipuncture / Unknown 05/04/2025 5:20 AM EDT 05/04/2025 10:22 AM EDT us Mario Berrios MD LAB BLOOD ORDERABLES Final Resu lt [facility] [address] [place] [address], * (ABNORMAL) Comprehensive metabolic panel (05/04/2025 5:20 AM EDT) Sodium 131(L) 133 - 145 mmol/L LAB CHEMISTRY METHOD 05/04/2025 11:30 AM [facility] Potassium 3.6 3.5 - 5.5 mmol/L LAB CHEMISTRY METHOD 05/04/2025 11:30 AM [facility] Comment:Hemolysis present Chloride 94(L) 96 - 110 mmol/L LAB CHEMISTRY METHOD 05/04/2025 11:30 AM [facility] CO2 28 21 - 32 mmol/L LAB CHEMISTRY METHOD 05/04/2025 11:30 AM [facility] Anion Gap 9 3 - 11 LAB CHEMISTRY METHOD 05/04/2025 11:30 AM [facility] Glucose 79 70 - 100 mg/dL LAB CHEMISTRY METHOD 05/04/2025 11:30 AM [facility] BUN 11 5 - 25 mg/dL LAB CHEMISTRY METHOD 05/04/2025 11:30 AM [facility] Creatinine 0.44(L) 0.50 - 1.10 mg/dL LAB CHEMISTRY METHOD 05/04/2025 11:30 AM [facility] eGFR 95 >=60 mL/min/1. 73m2 LAB CHEMISTRY METHOD 05/04/2025 11:30 AM [facility] Comment:Calculation based on the Chronic Kidney Disease Epidemiology Collaboration (CKD-EPI) equation refit without adjustment for race. BUN/Creatinine Ratio 25.0 LAB CHEMISTRY METHOD 05/04/2025 11:30 AM [facility] Calcium 8.1(L) 8.5 - 10.5 mg/dL LAB CHEMISTRY METHOD 05/04/2025 11:30 AM EDT [facility] AST (SGOT) 28 10 - 42 unit/L LAB CHEMISTRY METHOD 05/04/2025 11:30 AM EDT [facility] Comment:Hemolysis present ALT (SGPT) 27 10 - 60 unit/L LAB CHEMISTRY METHOD 05/04/2025 11:30 AM EDT [facility] Alkaline Phosphatase 140(H) 42 - 121 unit/L LAB CHEMISTRY METHOD 05/04/2025 11:30 AM EDT [facility] Total Protein 5.5(L) 6.0 - 8.0 g/dL LAB CHEMISTRY METHOD 05/04/2025 11:30 AM EDT [facility] Albumin 2.5(L) 3.2 - 5.0 g/dL LAB CHEMISTRY METHOD 05/04/2025 11:30 AM EDT [facility] Total Bilirubin 0.8 0.0 - 1.4 mg/dL LAB CHEMISTRY METHOD 05/04/2025 11:30 AM EDT [facility] Blood Venous blood specimen / Unknown Venipuncture / Unknown 05/04/2025 5:20 AM EDT 05/04/2025 10:20 AM EDT Mario Berrios MD LAB BLOOD ORDERABLES Final Resu lt [facility] [address] [place] [address], documented in this encounter Visit Diagnoses Diagnosis Essential (primary) hypertension Unspecified essential hypertension documented in this encounter Care Teams Herb Counselor Relationship Specialty Start Date End Date Mario Berrios MD [address] [place] [phone] PCP - General Internal Medicine 04/04/25 documented as of this encounter
--- OUTSIDE RECORDS SUMMARY | 2025-09-07 17:22 | XMS_ITS | Encounter Summary ---
Author Organization [facility] Address [address] [place] [address] Care Team Providers Care Clay Temperer Name Role Phone Mario Berrios MD Primary Care Provider [phone] Encounter Details Date Type Department Care Team (Late st Contact Info) Description 04/24/2025 Lab Requisition [facility] - Main Lab [address] [facility] [place] [address] Mario Berrios MD [address] [place] [address] [phone] Essential (primary) hypertension Social History Tobacco Use [...] AM EDT) WBC 6.1 4.8 - 10.8 K/[facility] LAB HEMETOLOGY METHOD 04/27/2025 1:16 PM EDT [facility] RBC 4.20 3.80 - 4.80 M/[facility] LAB HEMETOLOGY METHOD 04/27/2025 1:16 PM EDT [facility] Hemoglobin 12.9 11.5 - 16.0 g/dL LAB HEMETOLOGY METHOD 04/27/2025 1:16 PM EDT [facility] Hematocrit 39.2 35.0 - 47.0 % LAB HEMETOLOGY METHOD 04/27/2025 1:16 PM EDT [facility] MCV 94.0 79.0 - 98.0 FL LAB HEMETOLOGY METHOD 04/27/2025 1:16 PM EDT [facility] LAB MCH 30.9 27.0 - 32.0 pcg LAB HEMETOLOGY METHOD 04/27/2025 1:16 PM EDT [facility] LAB MCHC 32.9 32.0 - 37.0 g/dL LAB HEMETOLOGY METHOD 04/27/2025 1:16 PM EDT [facility] LAB RDW 16.2(H) 11.0 - 15.0 % LAB HEMETOLOGY METHOD 04/27/2025 1:16 PM EDT [facility] Platelets 173 130 - 400 K/mcL LAB HEMETOLOGY METHOD 04/27/2025 1:16 PM EDT [facility] LAB MPV 10.3 7.0 - 11.0 FL LAB HEMETOLOGY METHOD 04/27/2025 1:16 PM EDT [facility] NRBC 0.0 <1.0 % LAB HEMETOLOGY METHOD 04/27/2025 1:16 PM EDT [facility] LAB NRBC Absolute 0.00 <0.10 K/mcL LAB HEMETOLOGY METHOD 04/27/2025 1:16 PM EDT [facility] Blood Venous blood specimen / Unknown Venipuncture / Unknown 04/27/2025 6:26 AM EDT 04/27/2025 11:51 AM EDT us Mario Berrios MD LAB BLOOD ORDERABLES Final Resu lt [facility] [address] [place] [address], * (ABNORMAL) Comprehensive metabolic panel (04/27/2025 6:26 AM EDT) Sodium 130(L) 133 - 145 mmol/L LAB CHEMISTRY METHOD 04/27/2025 1:02 PM [facility] LAB Potassium 4.1 3.5 - 5.5 mmol/L LAB CHEMISTRY METHOD 04/27/2025 1:02 PM [facility] LAB Chloride 94(L) 96 - 110 mmol/L LAB CHEMISTRY METHOD 04/27/2025 1:02 PM [facility] LAB CO2 29 21 - 32 mmol/L LAB CHEMISTRY METHOD 04/27/2025 1:02 PM [facility] LAB Anion Gap 7 3 - 11 LAB CHEMISTRY METHOD 04/27/2025 1:02 PM [facility] LAB Glucose 76 70 - 100 mg/dL LAB CHEMISTRY METHOD 04/27/2025 1:02 PM [facility] BUN 9 5 - 25 mg/dL LAB CHEMISTRY METHOD 04/27/2025 1:02 PM [facility] LAB Creatinine 0.58 0.50 - 1.10 mg/dL LAB CHEMISTRY METHOD 04/27/2025 1:02 PM [facility] LAB eGFR 89 >=60 mL/min/1. 73m2 LAB CHEMISTRY METHOD 04/27/2025 1:02 PM [facility] LAB Comment:Calculation based on the Chronic Kidney Disease Epidemiology Collaboration (CKD-EPI) equation refit without adjustment for race. BUN/Creatinine Ratio 15.5 LAB CHEMISTRY METHOD 04/27/2025 1:02 PM [facility] LAB Calcium 8.1(L) 8.5 - 10.5 mg/dL LAB CHEMISTRY METHOD 04/27/2025 1:02 PM [facility] LAB AST (SGOT) 19 10 - 42 unit/L LAB CHEMISTRY METHOD 04/27/2025 1:02 PM EDT [facility] ALT (SGPT) 34 10 - 60 unit/L LAB CHEMISTRY METHOD 04/27/2025 1:02 PM EDT [facility] LAB Alkaline Phosphatase 139(H) 42 - 121 unit/L LAB CHEMISTRY METHOD 04/27/2025 1:02 PM EDT [facility] Total Protein 5.4(L) 6.0 - 8.0 g/dL LAB CHEMISTRY METHOD 04/27/2025 1:02 PM EDT [facility] Albumin 2.7(L) 3.2 - 5.0 g/dL LAB CHEMISTRY METHOD 04/27/2025 1:02 PM [facility] Total Bilirubin 1.2 0.0 - 1.4 mg/dL LAB CHEMISTRY METHOD 04/27/2025 1:02 PM EDT [facility] Blood Venous blood specimen / Unknown Venipuncture / Unknown 04/27/2025 6:26 AM EDT 04/27/2025 11:51 AM EDT us Mario Berrios MD LAB BLOOD ORDERABLES Final Resu lt [facility] [address] [place] [address], documented in this encounter Visit Diagnoses Diagnosis Essential (primary) hypertension Unspecified essential hypertension documented in this encounter Care Teams Clay Temperer Relationship Specialty Start Date End Date Mario Berrios MD [address] [place] [address] PCP - General Internal Medicine 04/04/25 documented as of this encounter
--- OUTSIDE RECORDS SUMMARY | 2025-09-07 17:22 | XMS_ITS | Encounter Summary ---
Author Organization [facility] Address [address] [place] [address] Care Team Providers Care Cloth Piecer Name Role Phone Mario Berrios MD Primary Care Provider Encounter Details Date Type Department Care Team (Late st Contact Info) Description 04/29/2025 Lab Requisition [facility] - Main Lab 299 [facility] [place] [address] Mario Berrios MD [address] [place] [phone] Hypo-osmolality and hyponatremia Social History Tobacco [...] LAB CHEMISTRY METHOD 04/29/2025 3:38 PM EDT [facility] Potassium 4.3 3.5 - 5.5 mmol/L LAB CHEMISTRY METHOD 04/29/2025 3:38 PM EDT [facility] Chloride 93(L) 96 - 110 mmol/L LAB CHEMISTRY METHOD 04/29/2025 3:38 PM EDT [facility] CO2 31 21 - 32 mmol/L LAB CHEMISTRY METHOD 04/29/2025 3:38 PM [facility] LAB Anion Gap 6 3 - 11 LAB CHEMISTRY METHOD 04/29/2025 3:38 PM [facility] LAB Glucose 90 70 - 100 mg/dL LAB CHEMISTRY METHOD 04/29/2025 3:38 PM [facility] BUN 10 5 - 25 mg/dL LAB CHEMISTRY METHOD 04/29/2025 3:38 PM [facility] Creatinine 0.59 0.50 - 1.10 mg/dL LAB CHEMISTRY METHOD 04/29/2025 3:38 PM [facility] LAB eGFR 88 >=60 mL/min/1. 73m2 LAB CHEMISTRY METHOD 04/29/2025 3:38 PM [facility] LAB Comment:Calculation based on the Chronic Kidney Disease Epidemiology Collaboration (CKD-EPI) equation refit without adjustment for race. BUN/Creatinine Ratio 16.9 LAB CHEMISTRY METHOD 04/29/2025 3:38 PM [facility] Calcium 8.3(L) 8.5 - 10.5 mg/dL LAB CHEMISTRY METHOD 04/29/2025 3:38 PM [facility] LAB AST (SGOT) 16 10 - 42 unit/L LAB CHEMISTRY METHOD 04/29/2025 3:38 PM [facility] ALT (SGPT) 34 10 - 60 unit/L LAB CHEMISTRY METHOD 04/29/2025 3:38 PM [facility] Alkaline Phosphatase 131(H) 42 - 121 unit/L LAB CHEMISTRY METHOD 04/29/2025 3:38 PM [facility] Total Protein 5.2(L) 6.0 - 8.0 g/dL LAB CHEMISTRY METHOD 04/29/2025 3:38 PM [facility] Albumin 2.7(L) 3.2 - 5.0 g/dL LAB CHEMISTRY METHOD 04/29/2025 3:38 PM EDT [facility] Total Bilirubin 1.2 0.0 - 1.4 mg/dL LAB CHEMISTRY METHOD 04/29/2025 3:38 PM EDT [facility] Blood Venous blood specimen / Unknown Venipuncture / Unknown 04/29/2025 6:15 AM EDT 04/29/2025 11:49 AM EDT us Mario Berrios MD LAB BLOOD ORDERABLES Final Resu lt [facility] [address] [place] [address], documented in this encounter Visit Diagnoses Diagnosis Hypo-osmolality and hyponatremia documented in this encounter Care Teams Cloth Piecer Relationship Specialty Start Date End Date Mario Berrios MD [address] [place] [address] PCP - General Internal Medicine 04/04/25 documented as of this encounter
--- OUTSIDE RECORDS SUMMARY | 2025-09-07 17:22 | XMS_ITS | Encounter Summary ---
Author Organization [employer] Address [address] [place] [address] Care Team Providers Care Motor Overhauler Name Role Phone Mario Berrios MD Primary Care Provider [phone] Encounter Details Date Type Department Care Team (Late st Contact Info) Description 09/04/2025 Lab Requisition [facility] - Main Lab [address] [facility] [place] [address] Roverto Jurado MD [address] [place] [address] Diverticulitis of small intestine with perforation and abscess without bleeding; Hyperlipidemia, unspecified; Hypo-osmolality and hyponatremia; Type 2 diabetes mellitus without complications (CMS/HCC V24, CMS/HCC V28); Abnormal results of thyroid function studies; Vitamin D deficiency, unspecified; Drug-induced folate deficiency anemia Social History Tobacco Use Types Packs/Day Years [...] Associated Diagnosis Comments COMPLETE BLOOD COUNT Routine 09/04/2025 9:38 AM [...] D deficiency, unspecified Drug-induced folate deficiency anemia FOLATE Routine 09/04/2025 9:38 AM EST Diverticulitis [...] D deficiency, unspecified Drug-induced folate deficiency anemia documented in this encounter Results * Folate (09/04/2025 9:38 AM EST) Folate 14.4 >=5.4 ng/ml 09/04/2025 1:01 PM EST [facility] Blood Venous blood specimen / Unknown Venipuncture / Unknown 09/04/2025 9:38 AM EST 09/04/2025 10:59 AM EST Narrative [facility] - 09/04/2025 1:01 PM EST Over the counter supplements containing high doses of biotin may interfere with this assay. If interference is suspected, patients shoud be retested after refraining from biotin supplements for 72 hours. us Roverto Jurado MD LAB BLOOD ORDERABLES Final Result [facility] [address] [place] [address], [place] [phone] * Vitamin B12 (09/04/2025 9:38 AM EST) [facility] Vitamin B-12 463 211 - 911 pcg/mL 09/04/2025 1:01 PM EST [facility] Blood Venous blood specimen / Unknown Venipuncture / Unknown 09/04/2025 9:38 AM EST 09/04/2025 10:59 AM EST Roverto Jurado MD LAB BLOOD ORDERABLES Final Result [facility] [address] [place] [address], [place] [phone] * Thyroid stimulating hormone (09/04/2025 9:38 AM EST) [facility] TSH 1.06 0.40 - 4.00 mcIU/mL 09/04/2025 1:01 PM EST [facility] Blood Venous blood specimen / Unknown Venipuncture / Unknown 09/04/2025 9:38 AM EST 09/04/2025 10:59 AM EST Roverto Jurado MD LAB BLOOD ORDERABLES Final Result [facility] [address] [place] [address], [place] [phone] * (ABNORMAL) Comprehensive metabolic panel (09/04/2025 9:38 AM EST) [facility] Sodium 132(L) 133 - 145 mmol/L 09/04/2025 12:34 PM EST [facility] Potassium 4.4 3.5 - 5.5 mmol/L 09/04/2025 12:34 PM EST [facility] Chloride 93(L) 96 - 110 mmol/L 09/04/2025 12:34 PM [facility] CO2 30 21 - 32 mmol/L 09/04/2025 12:34 PM [facility] Anion Gap 9 3 - 11 09/04/2025 12:34 PM [facility] Glucose 107(H) 70 - 100 mg/dL 09/04/2025 12:34 PM [facility] BUN 8 5 - 25 mg/dL 09/04/2025 12:34 PM [facility] Creatinine 0.64 0.50 - 1.10 mg/dL 09/04/2025 12:34 PM [facility] eGFR 87 >=60 mL/min/1. 73m2 09/04/2025 12:34 PM [facility] Comment:Calculation based on the Chronic Kidney Disease Epidemiology Collaboration (CKD-EPI) equation refit without adjustment for race. BUN/Creatinine Ratio 12.5 09/04/2025 12:34 PM [facility] Calcium 9.3 8.5 - 10.5 mg/dL 09/04/2025 12:34 PM [facility] AST (SGOT) 19 10 - 42 unit/L 09/04/2025 12:34 PM [facility] ALT (SGPT) 15 10 - 60 unit/L 09/04/2025 12:34 PM [facility] Alkaline Phosphatase 112 42 - 121 unit/L 09/04/2025 12:34 PM [facility] Total Protein 7.5 6.0 - 8.0 g/dL 09/04/2025 12:34 PM [facility] Albumin 4.1 3.2 - 5.0 g/dL 09/04/2025 12:34 PM [facility] Total Bilirubin 1.1 0.0 - 1.4 mg/dL 09/04/2025 12:34 PM [facility] Blood Venous blood specimen / Unknown Venipuncture / Unknown 09/04/2025 9:38 AM EST 09/04/2025 10:59 AM EST us Roverto Jurado MD LAB BLOOD ORDERABLES Final Result [facility] [address] [place] [address], * Complete blood count (09/04/2025 9:38 AM EST) WBC 8.8 4.8 - 10.8 K/mcL LAB HEMETOLOGY METHOD 09/04/2025 1:39 PM [facility] RBC 4.60 3.80 - 4.80 M/mcL LAB HEMETOLOGY METHOD 09/04/2025 1:39 PM [facility] Hemoglobin 13.7 11.5 - 16.0 g/dL LAB HEMETOLOGY METHOD 09/04/2025 1:39 PM [facility] Hematocrit 42.6 35.0 - 47.0 % LAB HEMETOLOGY METHOD 09/04/2025 1:39 PM [facility] MCV 92.6 79.0 - 98.0 FL LAB HEMETOLOGY METHOD 09/04/2025 1:39 PM [facility] MCH 29.8 27.0 - 32.0 pcg LAB HEMETOLOGY METHOD 09/04/2025 1:39 PM [facility] MCHC 32.2 32.0 - 37.0 g/dL LAB HEMETOLOGY METHOD 09/04/2025 1:39 PM [facility] RDW 14.6 11.0 - 15.0 % LAB HEMETOLOGY METHOD 09/04/2025 1:39 PM [facility] Platelets 264 130 - 400 K/mcL LAB HEMETOLOGY METHOD 09/04/2025 1:39 PM EST [facility] MPV 10.8 7.0 - 11.0 FL LAB HEMETOLOGY METHOD 09/04/2025 1:39 PM EST [facility] NRBC 0.0 <1.0 % LAB HEMETOLOGY METHOD 09/04/2025 1:39 PM EST [facility] NRBC Absolute 0.00 <0.10 K/mcL LAB HEMETOLOGY METHOD 09/04/2025 1:39 PM EST [facility] Blood Venous blood specimen / Unknown Venipuncture / Unknown 09/04/2025 9:38 AM EST 09/04/2025 10:59 AM EST us Roverto Jurado MD LAB BLOOD ORDERABLES Final Result [facility] [address] [place] [address], documented in this encounter Visit Diagnoses Diagnosis Diverticulitis of small intestine with perforation and abscess without bleeding Hyperlipidemia, unspecified Hypo-osmolality and hyponatremia Type 2 diabetes mellitus without complications (CMS/HCC V24, CMS/HCC V28) Abnormal results of thyroid function studies Nonspecific abnormal results of thyroid function study Vitamin D deficiency, unspecified Drug-induced folate deficiency anemia Folate-deficiency anemia documented in this encounter Care Teams Motor Overhauler Relationship Specialty Start Date End Date Mario Berrios MD [address] [place] [address] PCP - General Internal Medicine 04/04/25 documented as of this encounter
--- OUTSIDE RECORDS SUMMARY | 2025-09-07 17:22 | XMS_ITS | Encounter Summary ---
Author Organization [facility] Address [address] [place] [address] Care Team Providers Care Legal Associate Name Role Phone Mario Berrios MD Primary Care Provider [phone] Encounter Details Date Type Department Care Team (Late st Contact Info) Description 04/15/2025 Lab Requisition [facility] - Main Lab [address] [facility] [employer] [place] [address] Mario Berrios MD [address] [place] [address] [phone] Essential (primary) hypertension Social History Tobacco Use [...] AM EDT) WBC 8.9 4.8 - 10.8 K/[facility] LAB HEMETOLOGY METHOD 04/16/2025 9:51 AM EDT [facility] RBC 4.30 3.80 - 4.80 M/[facility] LAB HEMETOLOGY METHOD 04/16/2025 9:51 AM EDT [facility] Hemoglobin 13.5 11.5 - 16.0 g/dL LAB HEMETOLOGY METHOD 04/16/2025 9:51 AM EDT [facility] Hematocrit 40.4 35.0 - 47.0 % LAB HEMETOLOGY METHOD 04/16/2025 9:51 AM EDT [facility] MCV 93.5 79.0 - 98.0 FL LAB HEMETOLOGY METHOD 04/16/2025 9:51 AM EDT [facility] MCH 31.3 27.0 - 32.0 pcg LAB HEMETOLOGY METHOD 04/16/2025 9:51 AM EDT [facility] MCHC 33.4 32.0 - 37.0 g/dL LAB HEMETOLOGY [facility] RDW 16.6(H) 11.0 - 15.0 % LAB HEMETOLOGY METHOD 04/16/2025 9:51 AM EDT [facility] Platelets 159 130 - 400 K/mcL LAB HEMETOLOGY METHOD 04/16/2025 9:51 AM EDT [facility] MPV 11.7(H) 7.0 - 11.0 FL LAB HEMETOLOGY METHOD 04/16/2025 9:51 AM EDT [facility] NRBC 0.0 <1.0 % LAB HEMETOLOGY METHOD 04/16/2025 9:51 AM EDT [facility] NRBC Absolute 0.00 <0.10 K/mcL LAB HEMETOLOGY METHOD 04/16/2025 9:51 AM EDT [facility] Blood Venous blood specimen / Unknown Venipuncture / Unknown 04/16/2025 6:36 AM EDT 04/16/2025 9:27 AM EDT us Mario Berrios MD LAB BLOOD ORDERABLES Final Resu lt [facility] [address] [place] [address], * (ABNORMAL) Basic metabolic panel (04/16/2025 6:36 AM EDT) Sodium 134 133 - 145 mmol/L LAB CHEMISTRY METHOD 04/16/2025 10:16 AM [facility] Potassium 3.8 3.5 - 5.5 mmol/L LAB CHEMISTRY METHOD 04/16/2025 10:16 AM T [facility] Chloride 98 96 - 110 mmol/L LAB CHEMISTRY METHOD 04/16/2025 10:16 AM [facility] CO2 26 21 - 32 mmol/L LAB CHEMISTRY METHOD 04/16/2025 10:16 AM [facility] Anion Gap 10 3 - 11 LAB CHEMISTRY METHOD 04/16/2025 10:16 AM [facility] Glucose 129(H) 70 - 100 mg/dL LAB CHEMISTRY METHOD 04/16/2025 10:16 AM [facility] BUN 15 5 - 25 mg/dL LAB CHEMISTRY METHOD 04/16/2025 10:16 AM [facility] Creatinine 0.65 0.50 - 1.10 mg/dL LAB CHEMISTRY METHOD 04/16/2025 10:16 AM [facility] eGFR 86 >=60 mL/min/1. 73m2 LAB CHEMISTRY METHOD 04/16/2025 10:16 AM [facility] Comment:Calculation based on the Chronic Kidney Disease Epidemiology Collaboration (CKD-EPI) equation refit without adjustment for race. BUN/Creatinine Ratio 23.1 LAB CHEMISTRY METHOD 04/16/2025 10:16 AM [facility] Calcium 8.5 8.5 - 10.5 mg/dL LAB CHEMISTRY METHOD 04/16/2025 10:16 AM [facility] Blood Venous blood specimen / Unknown Venipuncture / Unknown 04/16/2025 6:36 AM EDT 04/16/2025 9:26 AM EDT Mario Berrios MD LAB BLOOD ORDERABLES Final Resu lt [facility] [address] [place] [address], documented in this encounter Visit Diagnoses Diagnosis Essential (primary) hypertension Unspecified essential hypertension documented in this encounter Care Teams Legal Associate Relationship Specialty Start Date End Date Mario Berrios MD [address] [place] [address] PCP - General Internal Medicine 04/04/25 documented as of this encounter
--- OUTSIDE RECORDS SUMMARY | 2025-09-07 17:22 | XMS_ITS | Encounter Summary ---
Author Organization [facility] Address [address] [place] [address] Care Team Providers Care Chemical Plant Manager Name Role Phone Mario Berrios MD Primary Care Provider [phone] Encounter Details Date Type Department Care Team (Late st Contact Info) Description 04/12/2025 Lab Requisition [facility] - Main Lab [address] [facility] [place] [address] Mario Berrios MD [address] [place] [address] [phone] Essential (primary) hypertension Social History Tobacco Use [...] AM EDT) WBC 8.1 4.8 - 10.8 K/[facility] LAB HEMETOLOGY METHOD 04/13/2025 11:31 AM EDT [facility] RBC 4.00 3.80 - 4.80 M/[facility] LAB HEMETOLOGY METHOD 04/13/2025 11:31 AM EDT [facility] Hemoglobin 12.5 11.5 - 16.0 g/dL LAB HEMETOLOGY METHOD 04/13/2025 11:31 AM [facility] Hematocrit 37.3 35.0 - 47.0 % LAB HEMETOLOGY METHOD 04/13/2025 11:31 AM [facility] MCV 92.8 79.0 - 98.0 FL LAB HEMETOLOGY METHOD 04/13/2025 11:31 [facility] MCH 31.1 27.0 - 32.0 pcg LAB HEMETOLOGY METHOD 04/13/2025 11:31 AM [facility] MCHC 33.5 32.0 - 37.0 g/dL LAB HEMETOLOGY METHOD 04/13/2025 11:31 AM [facility] RDW 16.3(H) 11.0 - 15.0 % LAB HEMETOLOGY METHOD 04/13/2025 11:31 AM [facility] Platelets 122(L) 130 - 400 K/mcL LAB HEMETOLOGY METHOD 04/13/2025 11:31 AM [facility] MPV 12.1(H) 7.0 - 11.0 FL LAB HEMETOLOGY METHOD 04/13/2025 11:31 AM [facility] NRBC 0.0 <1.0 % LAB HEMETOLOGY METHOD 04/13/2025 11:31 AM [facility] NRBC Absolute 0.00 <0.10 K/mcL LAB HEMETOLOGY METHOD 04/13/2025 11:31 AM [facility] Blood Venous blood specimen / Unknown Venipuncture / Unknown 04/13/2025 8:37 AM EDT 04/13/2025 10:16 AM EDT us Mario Berrios MD LAB BLOOD ORDERABLES Final Resu lt [facility] [address] [place] [address], [place] [phone] * (ABNORMAL) Comprehensive metabolic panel (04/13/2025 8:37 AM EDT) Sodium 133 133 - 145 mmol/L LAB CHEMISTRY METHOD 04/13/2025 11:42 AM [facility] Potassium 3.6 3.5 - 5.5 mmol/L LAB CHEMISTRY METHOD 04/13/2025 11:42 AM [facility] Chloride 98 96 - 110 mmol/L LAB CHEMISTRY METHOD 04/13/2025 11:42 AM [facility] CO2 26 21 - 32 mmol/L LAB CHEMISTRY METHOD 04/13/2025 11:42 AM [facility] Anion Gap 9 3 - 11 LAB CHEMISTRY METHOD 04/13/2025 11:42 AM [facility] Glucose 122(H) 70 - 100 mg/dL LAB CHEMISTRY METHOD 04/13/2025 11:42 AM [facility] BUN 16 5 - 25 mg/dL LAB CHEMISTRY METHOD 04/13/2025 11:42 AM [facility] Creatinine 0.59 0.50 - 1.10 mg/dL LAB CHEMISTRY METHOD 04/13/2025 11:42 AM [facility] eGFR 88 >=60 mL/min/1. 73m2 LAB CHEMISTRY METHOD 04/13/2025 11:42 AM [facility] Comment:Calculation based on the Chronic Kidney Disease Epidemiology Collaboration (CKD-EPI) equation refit without adjustment for race. BUN/Creatinine Ratio 27.1 LAB CHEMISTRY METHOD 04/13/2025 11:42 AM [facility] Calcium 8.3(L) 8.5 - 10.5 mg/dL LAB CHEMISTRY METHOD 04/13/2025 11:42 AM [facility] AST (SGOT) 38 10 - 42 unit/L LAB CHEMISTRY METHOD 04/13/2025 11:42 AM [facility] ALT (SGPT) 110(H) 10 - 60 unit/L LAB CHEMISTRY METHOD 04/13/2025 11:42 AM [facility] Alkaline Phosphatase 170(H) 42 - 121 unit/L LAB CHEMISTRY METHOD 04/13/2025 11:42 AM T [facility] Total Protein 5.3(L) 6.0 - 8.0 g/dL LAB CHEMISTRY METHOD 04/13/2025 11:42 AM [facility] Albumin 2.8(L) 3.2 - 5.0 g/dL LAB CHEMISTRY METHOD 04/13/2025 11:42 AM [facility] Total Bilirubin 1.0 0.0 - 1.4 mg/dL LAB CHEMISTRY METHOD 04/13/2025 11:42 AM [facility] Blood Venous blood specimen / Unknown Venipuncture / Unknown 04/13/2025 8:37 AM EDT 04/13/2025 10:18 AM EDT Mario Berrios MD LAB BLOOD ORDERABLES Final Resu lt [facility] [address] [place] [address], documented in this encounter Visit Diagnoses Diagnosis Essential (primary) hypertension Unspecified essential hypertension documented in this encounter 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
--- OUTSIDE RECORDS SUMMARY | 2025-09-07 17:22 | XMS_ITS | Encounter Summary ---
Author Organization [email or web address] [facility] Address [address] [place] [address] Care Team Providers Care Customer Marketing Manager Name Role Phone Mario Berrios MD Primary Care Provider [phone] Encounter Details Date Type Department Care Team (Late st Contact Info) Description 09/03/2025 Lab Requisition [facility] - Main Lab [address] [facility] [place] [address] Roverto Jurado MD [address] [place] [address] Diverticulitis of small intestine with perforation and [...] with perforation and abscess without bleeding 09/03/2025 5:20 AM EST documented as of this encounter Procedures Procedure Name Priority Date/Time Associated Diagnosis Comments CULTURE BLOOD Routine 09/03/2025 5:20 AM EST Diverticulitis of small intestine with perforation and abscess without bleeding documented in this encounter Visit Diagnoses Diagnosis Diverticulitis of small intestine with perforation and abscess without bleeding documented in this encounter Care Teams Customer Marketing Manager Relationship Specialty Start Date End Date Mario Berrios MD [address] [place] [id number] PCP - General Internal Medicine 04/04/25 documented as of this encounter
--- OUTSIDE RECORDS SUMMARY | 2025-09-07 17:22 | XMS_ITS | Patient Health Record ---
Author Organization [facility] Address [address] [place] [address] Care Team Providers Care Accounts Receivable Coordinator Name Role Phone Owen VIEYRA, Ora Primary Care Provider Unavailab Karol Yanes Unavailable [phone] Reason For Referral No Information Medications Medication [...] Treatment Pending Test Test Name Order Date [id number] TENDON SHEATH/LIGAMENT 0 11/27/2019 Insurance Providers Payer Name Payer Address Payer Phone Subscriber Number Group Number Insured Name Patient Relationship to Insured Coverage Start Date Coverage End Date Medicare [facility] [employer] [address] [place] [address] [id number] Yesenia Fisher Self - patient is the insured [facility] [address] [place] [id number] [phone] [id number] Yesenia Fisher Self - patient is the insured Medical (General) History Medical History History ICD Code Reflux Measles breast cancer Mumps Surgical History Surgery Date(Month/Year) cancer surgery 07/1992 varicose vein stripping 1974 hysterectomy 1989
--- OUTSIDE RECORDS SUMMARY | 2025-09-07 17:22 | XMS_ITS | Encounter Summary ---
Author Organization [facility] Address [address] [place] [address] Care Team Providers Care Roastmaster Name Role Phone Mario Berrios MD Primary Care Provider [phone] Encounter Details Date Type Department Care Team (Late st Contact Info) Description 04/08/2025 Lab Requisition [facility] - Main Lab [address] [facility] [employer] [place] [address] Mario Berrios MD [address] [place] [phone] Essential (primary) hypertension Social History Tobacco Use [...] AM EDT) WBC 10.1 4.8 - 10.8 K/[facility] LAB HEMETOLOGY METHOD 04/09/2025 11:39 AM EDT [facility] RBC 3.90 3.80 - 4.80 M/[facility] LAB HEMETOLOGY METHOD 04/09/2025 11:39 AM EDT [facility] Hemoglobin 11.9 11.5 - 16.0 g/dL LAB HEMETOLOGY METHOD 04/09/2025 11:39 AM [facility] Hematocrit 37.5 35.0 - 47.0 % LAB HEMETOLOGY METHOD 04/09/2025 11:39 AM [facility] MCV 95.4 79.0 - 98.0 FL LAB HEMETOLOGY METHOD 04/09/2025 11:39 AM [facility] MCH 30.3 27.0 - 32.0 pcg LAB HEMETOLOGY METHOD 04/09/2025 11:39 AM [facility] MCHC 31.7(L) 32.0 - 37.0 g/dL LAB HEMETOLOGY METHOD 04/09/2025 11:39 AM [facility] RDW 15.8(H) 11.0 - 15.0 % LAB HEMETOLOGY METHOD 04/09/2025 11:39 AM [facility] Platelets 127(L) 130 - 400 K/mcL LAB HEMETOLOGY METHOD 04/09/2025 11:39 AM [facility] MPV 11.8(H) 7.0 - 11.0 FL LAB HEMETOLOGY METHOD 04/09/2025 11:39 AM [facility] NRBC 0.0 <1.0 % LAB HEMETOLOGY METHOD 04/09/2025 11:39 AM [facility] NRBC Absolute 0.00 <0.10 K/mcL LAB HEMETOLOGY METHOD 04/09/2025 11:39 AM [facility] Blood Venous blood specimen / Unknown Venipuncture / Unknown 04/09/2025 5:47 AM EDT 04/09/2025 11:23 AM EDT Mario Berrios MD LAB BLOOD ORDERABLES Final Resu lt [facility] [address] [place] [address], [place] [phone] * (ABNORMAL) Basic metabolic panel (04/09/2025 5:47 AM EDT) Sodium 133 133 - 145 mmol/L LAB CHEMISTRY METHOD 04/09/2025 12:06 PM [facility] Potassium 4.9 3.5 - 5.5 mmol/L LAB CHEMISTRY METHOD 04/09/2025 12:06 PM [facility] Comment:Hemolysis present Chloride 101 96 - 110 mmol/L LAB CHEMISTRY METHOD 04/09/2025 12:06 PM [facility] CO2 26 21 - 32 mmol/L LAB CHEMISTRY METHOD 04/09/2025 12:06 PM [facility] Anion Gap 6 3 - 11 LAB CHEMISTRY METHOD 04/09/2025 12:06 PM [facility] Glucose 97 70 - 100 mg/dL LAB CHEMISTRY METHOD 04/09/2025 12:06 PM [facility] BUN 17 5 - 25 mg/dL LAB CHEMISTRY METHOD 04/09/2025 12:06 PM [facility] Creatinine 0.61 0.50 - 1.10 mg/dL LAB CHEMISTRY METHOD 04/09/2025 12:06 PM [facility] eGFR 88 >=60 mL/min/1. 73m2 LAB CHEMISTRY METHOD 04/09/2025 12:06 PM [facility] Comment:Calculation based on the Chronic Kidney Disease Epidemiology Collaboration (CKD-EPI) equation refit without adjustment for race. BUN/Creatinine Ratio 27.9 LAB CHEMISTRY METHOD 04/09/2025 12:06 PM [facility] Calcium 8.0(L) 8.5 - 10.5 mg/dL LAB CHEMISTRY METHOD 04/09/2025 12:06 PM EDT [facility] Blood Venous blood specimen / Unknown Venipuncture / Unknown 04/09/2025 5:47 AM EDT 04/09/2025 11:23 AM EDT Mario Berrios MD LAB BLOOD ORDERABLES Final Resu lt [facility] [address] [place] [address], documented in this encounter Visit Diagnoses Diagnosis Essential (primary) hypertension Unspecified essential hypertension documented in this encounter Care Teams Roastmaster Relationship Specialty Start Date End Date Mario Berrios MD [address] [place] [phone] PCP - General Internal Medicine 04/04/25 documented as of this encounter
--- OUTSIDE RECORDS SUMMARY | 2025-09-07 17:22 | XMS_ITS | Encounter Summary ---
Author Organization [facility] Address [address] [place] [address] Care Team Providers Care Trade Show Manager Name Role Phone Mario Berrios MD Primary Care Provider [phone] Encounter Details Date Type Department Care Team (Late st Contact Info) Description 04/09/2025 Lab Requisition [facility] - Main Lab [address] [facility] [place] [address] Mario Berrios MD [address] [place] [phone] Dysuria; Urinary tract infection, site not [...] reflex microscopic (04/08/2025 4:45 PM EDT) Specific [place] Urine 1.028 1.003 - 1.030 LAB URINALYSIS - AUTOMATED METHOD 04/09/2025 12:[address] [facility] pH, Urine 5.5 5.0 - 8.0 pH LAB URINALYSIS - AUTOMATED METHOD 04/09/2025 12:[address] [facility] Leukocytes, Urine Moderate(A) Negative LAB URINALYSIS - AUTOMATED METHOD 04/09/2025 12:[address] [facility] Nitrite, Urine Positive(A) Negative LAB URINALYSIS - AUTOMATED METHOD 04/09/2025 12:[address] [facility] Protein, Urine 30(A) <=Trace mg/dL LAB URINALYSIS - AUTOMATED METHOD 04/09/2025 12:[address] [facility] Glucose, Urine 100(A) Negative mg/dL LAB URINALYSIS - AUTOMATED METHOD 04/09/2025 12:[address] [facility] Ketones, Urine Trace(A) Negative mg/dL LAB URINALYSIS - AUTOMATED METHOD 04/09/2025 12:[address] [facility] Urobilinogen , Urine 1.0 0.2 - 1.0 mg/dL LAB URINALYSIS - AUTOMATED METHOD 04/09/2025 12:[address] [facility] Bilirubin, Urine Negative Negative LAB URINALYSIS - AUTOMATED METHOD 04/09/2025 12:[address] [facility] Blood, Urine Negative Negative LAB URINALYSIS - AUTOMATED METHOD 04/09/2025 12:[address] [facility] RBC, Urine 3.7 0 - 4 /HPF LAB URINALYSIS - AUTOMATED METHOD 04/09/2025 12:[address] [facility] WBC, Urine 59.3(H) 0 - 4 /HPF LAB URINALYSIS - AUTOMATED METHOD 04/09/2025 12:[address] [facility] Squamous Epithelial, Urine 30 0 - 60 /LPF LAB URINALYSIS - AUTOMATED METHOD 04/09/2025 12:[address] [facility] Bacteria, Urine Many(A) Negative /HPF LAB URINALYSIS - AUTOMATED METHOD 04/09/2025 12:19 PM EDT [facility] Hyaline Casts, Urine 8.0(H) 0 - 3 /LPF LAB URINALYSIS - AUTOMATED METHOD 04/09/2025 12:19 PM EDT [facility] Urine Urine specimen obtained by clean catch procedure / Unknown Non-blood Collection / Unknown 04/08/2025 4:45 PM EDT 04/09/2025 11:37 AM EDT us Mario Berrios MD LAB URINE ORDERABLES Final Resu lt [facility] [address] [place] [address], [place] [phone] * (ABNORMAL) Culture urine (04/08/2025 4:45 PM EDT) Culture, Urine >=100,000 CFU/mL Enterobacter cloacae complex(A) GEMA 04/11/2025 9:40 AM EDT [facility] Comment: This is an edited [...] Mario Berrios MD LAB MICROBIOLOGY - GENERAL [facility] Final Result Performing Organization Address City/State/[facility] Co de Phone Number [facility] [address] [place] [address], documented in this encounter Visit Diagnoses Diagnosis Dysuria Urinary tract infection, site not specified documented in this encounter Care Teams Trade Show Manager Relationship Specialty Start Date End Date Mario Berrios MD [address] [place] [address] PCP - General Internal Medicine 04/04/25 documented as of this encounter
== END 2025-09-07 14:49 | disposition home or self-care (01) ==
LOC: HO.HGS 13:52
PROVIDERS: PCP Internal Medicine; Visit Provider Surgery
DX: Z93.3 Colostomy status (principal)
CPT/HCPCS: 99024

== ENCOUNTER → 2025-09-07 13:52 | Outpatient (BNVA) | payer MEDICARE, OTHER, SELFPAY | PROVIDERS: PCP Internal Medicine; Visit Provider Surgery | DX: Z48.815 Encounter for surgical aftercare following surgery on the digestive system (principal); Z93.3 Colostomy status | CPT/HCPCS: 99212 ==